=== PATIENT | male | born 1980 | race Caucasian/White ===

== ENCOUNTER 2024-09-16 10:20 | Emergency (ER) | payer MEDICAID, SELFPAY ==
--- NOTE | ~2024-09-16 | US_ITS ---
EXAMINATION: US venous doppler [facility] DATE: 09/16/2024 12:29 INDICATION: Bilateral lower limb pain and swelling TECHNIQUE: Grayscale ultrasound images without and with compression and Doppler ultrasound images of the bilateral lower extremity veins were obtained. COMPARISON: None. FINDINGS: The visualized portions of right common femoral vein, profunda (deep) femoral vein, femoral vein, pop liteal vein, posterior tibial veins, peroneal veins, gastrocnemius vein and greater saphenous vein ou tflow are patent. The visualized portions of left common femoral vein, profunda femoral vein, femoral vein, popliteal v ein, posterior tibial veins, peroneal veins, gastrocnemius vein and greater saphenous vein outflow ar e patent. IMPRESSION: 1. No deep venous thrombosis in either lower limb. Reviewed, dictated and finalized at location A. D SERGEANT
--- NOTE | ~2024-09-16 | XR_ITS ---
EXAMINATION: XR chest 2V DATE: 09/16/2024 11:21 INDICATION: Lower limb swelling TECHNIQUE: PA and lateral views of the chest were obtained. COMPARISON: None FINDINGS: The lungs are clear with no focal airspace opacities, pulmonary edema, pleural effusion or pneumothor ax. The cardiomediastinal silhouette is normal. Moderate thoracic spondylosis with minimal anterior w edging of a lower thoracic vertebral body, possibly T11. IMPRESSION: 1. No acute cardiopulmonary disease. Reviewed, dictated and finalized at location A. LY INDEPENDENCE CASE MANAGER
[2024-09-16 10:31] VITALS: BP 122/74; PULSE 89; RESP 18; TEMP 36.7; O2SAT 99
--- NOTE | 2024-09-16 10:52 | ED.GENADULT ---
HPI - General Adult General Chief complaint: Skin/Abscess/Foreign Body Stated complaint: BLE cellulitis Time Seen by Provider: 09/16/24 10:41 History of Present Illness HPI narrative: 44-year-old male present to the emergency department for evaluation for lower extremity edema and concern for recurrent cellulitis. Patient states he did just complete a course Lasix and doxycycline. Patient states he completed these approximately 4 days ago and feels like the swelling and erythema is returning. Patient denies any significant past medical history other than a cholecystectomy. Patient denies any previous history congestive heart failure and states he was only started on the Lasix due to the leg swelling. Related Data Allergies Allergy/AdvReac Type Severity Reaction Status Date / Time iohexol (From contrast - CT, Allergy vomiting Verified 09/16/24 10:23 X-RAY) Review of Systems Review of Systems: All systems reviewed & are unremarkable except as noted in HPI and below Exam Narrative: APPEARANCE: Well appearing, no pain, no distress, well-nourished. HEAD: normocephalic, atraumatic. EYES: PERRLA/EOMI, conjunctivae clear. NOSE: Normal no drainage EARS:TMS clear with good light reflex. THROAT: Pharynx clear, no exudate. NECK: Supple. No adenopathy, no masses. RESPIRATORY: Airway patent, respirations nonlabored. Clear to auscultation bilaterally, no rales, rhonchi, wheezing. CARDIOVASCULAR: Regular rate and rhythm without murmurs rubs or gallops. ABDOMINAL: Soft, nontender, nondistended, normal bowel sounds MUSCULOSKELETAL: Bilateral lower extremity edema NEURO: Alert. Cranial nerves II through XII intact. Good gait. Good coordination SKIN: Mild lower extremity erythema Course Vital Signs Vital signs: Vital Signs Temperature 98.0 F 09/16/24 10:31 Pulse Rate 89 09/16/24 10:31 Respiratory Rate 09/16/24 10:31 Blood Pressure 122/74 09/16/24 10:31 Pulse Oximetry 99 09/16/24 10:31 Temperature 97.5 F L 09/16/24 13:15 Pulse Rate 81 09/16/24 13:15 Respiratory Rate 18 09/16/24 13:15 Blood Pressure 103/69 09/16/24 13:15 Pulse Oximetry 98 09/16/24 13:15 Medical Decision Making [facility] Narrative Medical decision making narrative: 44-year-old male presenting emergency department for evaluation for concern for lower extremity cellulitis on the left lower extremity. Patient also does have bilateral lower extremity edema. Patient is currently afebrile with no leukocytosis and hemoglobin of 12.3. Patient has normal kidney function with no significant abnormalities on his CMP chest x-ray showed no acute cardiopulmonary abnormality and patient's lower extremity Dopplers were negative bilaterally. No significant cellulitis is noted at this time. Patient does feel it is more erythematous than baseline. Patient will be started on oral antibiotics and discharged home. Patient will be started on Keflex. Differential Diagnosis Differential Diagnosis: DVT, cellulitis, chronic venous stasis Vital Signs Vital Signs: Vital Signs Temperature 98.0 F 09/16/24 10:31 Pulse Rate 89 09/16/24 10:31 Respiratory Rate 18 09/16/24 10:31 Blood Pressure 122/74 09/16/24 10:31 Pulse Oximetry 99 09/16/24 10:31 Temperature 97.5 F L 09/16/24 13:15 Pulse Rate 81 09/16/24 13:15 Respiratory Rate 18 09/16/24 13:15 Blood Pressure 103/69 09/16/24 13:15 Pulse Oximetry 98 09/16/24 13:15 Lab Data Lab results reviewed: Yes I reviewed the patient's lab results. 09/16/24 11:00 09/16/24 11:01 Labs: Lab Results 09/16/24 09/16/24 Range/Units 11:00 11:01 WBC 4.4 L (4.5-10.0) K/mm3 RBC 4.24 L (4.6-6.20) M/mm3 Hgb 12.3 L (14.0-18.0) g/dL Hct 38.4 L (42.0-52.0) % MCV 90.6 (80-100) fl MCH 29.0 (26-34) pg MCHC 32.0 (32-36) g/dl RDW 12.5 (11.5-14.5) % Plt Count 161 (150-375) k/mm3 MPV 10.0 (7.4-10.4) fl Immature Gran % (Auto) 0.2 (0-0.5) % Neut % (Auto) 55.6 (45.5-73.1) % Lymph % (Auto) 30.6 (18.3-44.2) % [place] % (Auto) 10.0 H (2.6-8.5) % Eos % (Auto) 2.9 (0-4.4) % Baso % (Auto) 0.7 (0.2-1.2) % Lymph # (Auto) 1.35 (0.9-3.2) K/mm3 [place] # (Auto) 0.4 (0.1-0.6) K/mm3 Eos # (Auto) 0.1 (0-0.3) K/mm3 Baso # (Auto) 0.0 (0.0-0.1) K/mm3 Abs Immat Gran (auto) 0.01 (0.00-0.031) K/mm3 Absolute Neuts (auto) 2.5 (1.3-6.7) K/mm3 Absolute Nucleated RBC 0.000 (0.0-0.012) K/mm3 Nucleated RBC % 0.0 (0.0-0.2) % Sodium 139 (137-145) mmol/L Potassium 4.1 (3.4-5.0) mmol/L Chloride 102 (98-107) mmol/L Carbon Dioxide 29 (22-30) mmol/L Anion Gap 8 (4-12) mmol/L BUN 26 H (9-20) mg/dL Creatinine 0.73 (0.7-1.3) mg/dL Estim Creat Clear Calc 110 ml/min Estimated GFR > 60 (59 - ) Glucose 84 (65-110) mg/dL Calcium 8.5 (8.4-10.2) mg/dL Total Bilirubin 0.7 (0.2-1.3) mg/dL AST 30 (17-59) U/L ALT 39 (6-50) U/L Alkaline Phosphatase 61 (38-126) U/L NT-Pro-B Natriuret Pep 23 (19.9-100) pg/mL Total Protein 7.0 (6.3-8.2) g/dL Albumin 3.8 (3.5-5.1) g/dL Imaging Data Radiologist's impression: Impressions Chest X-Ray 09/16/24 11:33 IMPRESSION: 1. No acute cardiopulmonary disease. Venous Doppler Study 09/16/24 12:32 IMPRESSION: 1. No deep venous thrombosis in either lower limb. Discharge Plan Discharge Clinical Impression: Cellulitis Patient Disposition: Home, Self-Care Condition: Stable Instructions: Antibiotic Form, Cellulitis (ED) Additional Instructions: Have close follow-up with your primary care physician for wound check. Antibiotic as directed until completed. Patient Language: Italian Prescriptions: New cephalexin 500 mg capsule 500 mg PO Q8H 7 Days Qty: 21 0RF Follow-up/Referrals: UNKNOWN,DOCTOR [Primary Care Provider] -
--- OUTSIDE RECORDS SUMMARY | 2024-09-16 10:52 | XMS_ITS | Encounter Summary ---
Author Organization [facility] Healthcare Address [address] [place] [address] Care Team Providers Care Spring Setter Name Role Phone Elias Andrews MD Unavailable [phone] Jonah Otto MD Unavailable [phone] Jerel Camejo MD Primary Care Provider [phone] Reason for Visit * Reason Onset Date Comments Med Refill 09/14/2024 Encounter Details Date Type Department Care Team (Late st Contact Info) Description 09/14/2024 Telephone [facility] at [address] [id number] Lexi Garcia, ROUTE CLERK [facility] [place] [address] Med Refill Social History Tobacco Use Types Packs/Day Years Used Date Smoking Tobacco: Never Smokeless Tobacco: Never Alcohol Use Standard Drinks/Week Comments Not Currently 0 (1 standard drink = 0.6 oz pur e alcohol) [facility] Utilities Answer Date Recorded In the past 12 months has [employer] electric, gas, oil, or water company threatened to shut off services in your home? Patient declined 08/14/2024 Social Connection and Isolation Panel [NHANES] A nswer Date Recorded In a typical week, how many times do you talk on the phone with family, friends, or neighbors? Patient declined 08/14/2024 How often do you get togethe r with friends or relatives? Patient declined 08/14/2024 How often do you attend evangelical or baptism serv ices? Patient declined 08/14/2024 Do you belong to any clubs o r organizations such as evangelical groups, unions, fraternal or athletic groups, or school groups? Patient declined 08/14/2024 How often do you attend meet ings of the clubs or organizations you belong to? Patient declined 08/14/2024 Are you , , di vorced, , never , or living with a partner? Patient declined 08/14/2024 AUDIT-C Answer Date Recorded Q1: How often do you have a drink containing alcohol? Never 07/24/2024 Q2: How many drinks containi ng alcohol do you have on a typical day when you are drinking? Patient does not drink Q3: How often do you have si x or more drinks on one occasion? Never 07/24/2024 Overall Financial Resource Strain (CARDIA) Answe r Date Recorded How hard is it for you to pa y for the very basics like food, housing, medical care, and heating? Patient declined 08/14/2024 Hunger Vital Sign Answer Date Recorded Within the past 12 months, y ou worried that your food would run out before you got the money to buy more. Patient declined Within the past 12 months, t he food you bought just didn't last and you didn't have money to get more. Patient declined PRAPARE - Transportation Answer Date Re corded In the past 12 months, has l ack of transportation kept you from medical appointments or from getting medications? Patient declined 08/14/2024 In the past 12 months, has l ack of transportation kept you from meetings, work, or from getting things needed for daily living? Patient declined 08/14/2024 Housing Stability Vital Sign Answer Joseph e Recorded In the last 12 months, was t here a time when you were not able to pay the mortgage or rent on time? Patient declined 08/14/19 25 Number of Times Moved in the Last Year Not on fi le 08/14/2024 At any time in the past 12 m [facility], were you homeless or living in a [place] [facility] facility (including now)? Patient declined 08/14/2024 Personal Safety Answer Date Recorded Have you ever been in or are you currently in a harmful physical or emotional relationship or is someone making you feel afraid or unsafe? Denies 09/14/2024 Sex and Gender Information Value Date Recorded Sex Assigned at Not on file Legal Sex Male 9:25 PM BURIAL AGENT Gender Identity Not on file Sexual Orientation Straight 11/18/2022 7: 07 PM CDT documented as of this encounter Miscellaneous Notes * Telephone Encounter - Adelina Mcqueen MA - 09/14/2024 7:15 PM CST Pt seen 09/11 stating he lost his potasium script and is requesting a new one. Pt seen six times in ED since our visit. Delfino Li AL AGENT AL AGENT documented in this encounter Plan of Treatment Not on file documented as of this encounter Visit Diagnoses Not on filedocumented in this encounter Care Teams Spring Setter Relationship Specialty [place] [address] [place] [address] PCP - General Family Medicine 05/18/24 [place] [address] [address] [address] Referring Physician General Surgery 08/04/19 [place] [id number] [address] [address] Consulting Physician Gastroenterology 08/04/19 documented as of this encounter
--- OUTSIDE RECORDS SUMMARY | 2024-09-16 10:52 | XMS_ITS | Clinical Summary ---
Author Organization 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 08/23/2024 08/23/19 26 Active furosemide (LASIX) 40 mg tablet Take 40 mg by mouth daily. 09/11/2024 09/16/19 25 Active ondansetron (ZOFRAN ODT) 4 mg Tablet, Rapid Dissolve Take 1 Tablet (4 mg) by mouth every 8 hours as needed for Nausea/Emesis . Dissolve tablet on top of tongue, then swallow with saliva. 30 Tablet 09/15/2024 09/25/19 25 Active Active Problems Problem Noted Date Diagnosed Date Gallbladder adhesions 09/15/2024 Bilateral lower extremity edema 08/26/2024 LAD (lymphadenopathy) 08/21/2024 Coronavirus infection 08/14/2024 Mass of nose 06/15/2022 Overview (09/15/2024): Added automatically from request for surgery [id number] Leg wound, left 09/13/2019 Chronic abdominal pain 08/12/2019 S/P cholecystectomy 08/12/2019 Vasovagal episode 08/12/2019 Calculus of gallbladder 07/29/2019 Intractable right upper quadrant abdominal pain 07/29/2019 Overview (09/15/2024): Added automatically from request for surgery [id number] Nausea 07/29/2019 Adjustment disorder with depressed mood in remis devonte 11/05/2018 Generalized abdominal pain 10/25/2018 Sepsis 10/25/2018 Dizziness 10/20/2018 Syncope and collapse 10/20/2018 Encounters Date Type Department Care Team Description 09/15/2024 6:00 PM [facility] Office Visit [facility] [address] Kay Melo, GINGER Nausea and vomiting, unspecified vomiting type (Primary Dx) 09/15/2024 2:19 AM [facility] - 09/15/2024 3:50 AM [facility] Emergency Department [address] [place] [address] Greg Todd MD Lower extremity edema (Primary Dx) Discharge Disposition: Home or Self Care 09/14/2024 Travel 09/13/2024 8:17 AM [facility] - 09/13/2024 11:47 AM [facility] Emergency Department [address] [place] [address] Batsheva Hayden MD Leg swelling (Primary Dx) Discharge Disposition: Home or Self Care 09/13/2024 Travel 09/10/2024 9:10 PM [facility] - 09/10/2024 10:05 PM [facility] Emergency Room [address] [place] [address] Bilateral lower extremity edema (Primary Dx) Discharge Disposition: Home or Self Care 09/09/2024 9:55 PM [facility] - 09/10/2024 12:20 AM [facility] Emergency Department [address] [place] [address] Nolan Lee MD 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 (Primary Dx) Discharge Disposition: Home or Self Care 09/09/2024 2:45 AM [facility] - 09/09/2024 3:11 AM [facility] Emergency Department [address] [place] [phone] Mark Andrews DO Venous stasis dermatitis (Primary Dx); Other chronic pain Discharge Disposition: Home or Self Care 09/08/2024 Travel 09/05/2024 External Device Data STL ABSTRACTION Provider, Abstract 09/04/2024 6:46 AM [facility] - 09/04/2024 7:21 AM [facility] Emergency Department [address] [place] [phone] Fei Napoles DO Chronic pain of left lower extremity (Primary Dx) Discharge Disposition: Home or Self Care 08/24/2024 11:37 PM [facility] - 08/24/2024 11:53 PM [facility] Emergency Department [address] [place] [phone] Wicho Camarillo DO Cellulitis, unspecified cellulitis site (Primary Dx) Discharge Disposition: Home or Self Care 08/24/2024 External Device Data STL ABSTRACTION Provider, Abstract 2024 Results Follow-Up [facility] - [place] [address] [facility] [place] [address] Jerel Camejo MD TSH, LIPID PANEL, COMPREHENSIVE METABOLIC PANEL, Additional followed-up results: 2 08/21/2024 3:00 PM [facility] Office Visit [facility] [place] [address] [place] [address] Jerel Camejo MD Encounter for routine adult health examination with abnormal findings (Primary Dx); Adjustment disorder with depressed mood in remission; LAD (lymphadenopathy); Screening for cardiovascular condition; Screening for lipoid disorders; Screening for endocrine disorder 08/21/2024 2:59 PM [facility] - 08/21/2024 7:44 PM [facility] Emergency Department [address] [place] [address] Mike Sandoval, Carmelo Phillips MD Leg edema (Primary Dx); Persistent cough Discharge Disposition: Home or Self Care 08/21/2024 Travel 08/17/2024 2:50 AM [facility] - 08/17/2024 3:37 AM [facility] Emergency Department [facility] [phone] Nolan Lee MD Viral syndrome (Primary Dx); Bilateral lower extremity edema Discharge Disposition: Home or Self Care 08/15/2024 External Device Data STL ABSTRACTION Provider, Abstract 08/14/2024 Orders Only [facility] Oncology and Hematology [facility] [address] [place] [address] Ny Hicks MD Enlarged lymph nodes (Primary Dx) 08/11/2024 9:18 PM [facility] - 08/12/2024 12:53 AM [facility] Emergency [facility] Emergency Department [address] [place] [address] Nasrin White MD COVID-19 virus detected (Primary Dx); Pre-syncope Discharge Disposition: Home or Self Care 08/11/2024 Travel from Last 3 Months Immunizations Immunization Administration Dates Next Due (ADACEL/BOOSTRIX)(10 YR UP) TDAP VACCINE, 0.5ML, IM 08/05/2019 (PFIZER LYNNE)(12 YR UP PRIMA RY SERIES) COVID-19 VACCINE - EMERGENCY USE AUTHORIZATION, MRNA, LYNNE(PF) 30 MCG/0.3 ML IM SUSP 04/04/2022,12/10/2021 (TDVAX)(7 YRS UP) TETANUS AN D DIPHTHERIA TOXOIDS, ADSORBED (2 LF OF TETANUS TOXOID AND 2 LF OF DIPHTHERIA TOXOID), 0.5ML (PF), IM 03/28/2014 INFLUENZA VACCINE QUADRIVALE NT 6 MOS UP CELL DERIVED PF IM 04/04/2022 Influenza Seasonal Unspecified Formulation IM ,05/01/2023 Social History Tobacco Use Types Packs/Day Years Used Date Smoking Tobacco: Never Smokeless Tobacco: Never Alcohol Use Standard Drinks/Week Comments Not Currently 0 (1 standard drink = 0.6 oz pur e alcohol) Feeling Safe Answer Date Recorded Are you in a relationship wi th someone who hurts you emotionally and/or physically? No 09/14/2024 Sex and Gender Information Value Date Recorded Sex Assigned at Not on file Legal Sex Male 7:43 PM [facility] Gender Identity Not on file Sexual Orientation Not on file Last Filed Vital Signs Vital Sign Reading Time Taken Comments Blood Pressure 127/79 09/15/2024 5:54 PM [facility] Pulse 93 09/15/2024 5:54 PM [facility] Temperature 36.7 C (98.1 F) 09/15/2024 5:54 PM [facility] Respiratory Rate 16 09/15/2024 5:54 PM [facility] Oxygen Saturation 99% 09/15/2024 5:54 PM [facility] Inhaled Oxygen Concentration - - Weight 74.8 kg (165 lb) 09/15/2024 5:54 PM [facility] Height 172.7 cm (5' 8 ) 09/14/2024 11:08 PM [facility] Body Mass Index 25.09 09/14/2024 11:08 PM [facility] Plan of Treatment Upcoming Encounters Date Type Department Care Team (Late st Contact Info) Description 08/27/2025 11:30 AM [facility] Office Visit [facility] Internal Medicine - [place] [address] [place] [address] [place] [address] [place] [address] Health Maintenance Due Date Last Done Comments HEPATITIS B VACCINES (1 of 3 - 19+ 3-dose series) 2001 Preventative Visit-Managed Medicaid 12/03/2023 12/01/2022 COVID-19 Vaccine (2023-2 5 season) 2024 2022, 04/04/2022, 12/10/2021 Pre-Diabetes and Diabetes Screening 08/21/2027 08/21/2024 DTAP/TDAP/TD VACCINES (2 - T d or Tdap) 08/05/2029 08/05/2019, 03/28/2014 INFLUENZA VACCINE Completed 04/03/2024, 05/01/2023, 04/04/2022 HPV VACCINES Aged Out No longer eligi ble based on patient's age to complete this topic Procedures Procedure Name Priority Date/Time Associated Diagnosis Comments POC INFLUENZA A AND B ANTIGEN Routine 09/15/2024 6:16 PM [facility] Nausea and vomiting, unspecified vomiting type COMPREHENSIVE METABOLIC PANEL Stat 09/14/2024 11:53 PM [facility] CBC WITH DIFFERENTIAL Stat 09/14/2024 11:53 PM [facility] POC GLUCOSE Stat 09/14/2024 11:51 PM [facility] COMPREHENSIVE METABOLIC PANEL Stat 09/09/2024 9:16 PM [facility] CBC WITH DIFFERENTIAL Stat 09/09/2024 9:16 PM [facility] XR CHEST PA AND LATERAL 2 VW Stat 09/09/2024 1:17 AM [facility] RESPIRATORY PATHOGEN PCR PANEL Stat 09/08/2024 11:[address] CHEST ABDOMEN PELVIS W CONT Stat 08/21/2024 6:55 PM [facility] POC CREATININE Stat 08/21/2024 4:35 PM [facility] C-REACTIVE PROTEIN Stat 08/21/2024 4: 27 PM [facility] COMPREHENSIVE METABOLIC PANEL Stat 08/21/2024 4:27 PM [facility] CBC WITH DIFFERENTIAL Stat 08/21/2024 4:27 PM [facility] XR CHEST PA AND LATERAL 2 VW Stat 08/21/2024 3:25 PM [facility] INFLUENZA A/B, RSV AND COVID-19 PCR PANEL Stat 08/21/2024 3:11 PM [facility] INFLUENZA A/B, RSV AND COVID-19 PCR PANEL Stat 08/21/2024 3:11 PM [facility] HEMOGLOBIN A1C Routine 08/21/2024 2:08 PM [facility] Adjustment disorder with depressed mood in remission LAD (lymphadenopathy) CBC WITH DIFFERENTIAL Routine 08/21/2024 2:08 PM [facility] Adjustment disorder with depressed mood in remission LAD (lymphadenopathy) COMPREHENSIVE METABOLIC PANEL Routine 08/21/2024 2:08 PM [facility] Adjustment disorder with depressed mood in remission LAD (lymphadenopathy) LIPID PANEL Routine 08/21/2024 2:08 PM [facility] Adjustment disorder with depressed mood in remission LAD (lymphadenopathy) TSH Routine 08/21/2024 2:08 PM [facility] Adjustment disorder with depressed mood in remission LAD (lymphadenopathy) XR CHEST PA AND LATERAL 2 VW Stat 08/17/2024 3:26 AM [facility] TROPONIN 2 HR, 5TH GEN Timed Study 08/11/2024 11:[address] HEAD WO CONTRAST Stat 08/11/2024 1 0:18 PM [facility] EKG 12-LEAD Stat 08/11/2024 9:58 PM [facility] TROPONIN BASELINE, 5TH GEN Stat 08/11/2024 9:57 PM [facility] COMPREHENSIVE METABOLIC PANEL Stat 08/11/2024 9:57 PM [facility] CBC WITH DIFFERENTIAL Stat 08/11/2024 9:57 PM [facility] from Last 3 Months Results * POC INFLUENZA A AND B ANTIGEN (09/15/2024 6:16 PM [facility]) INFLUENZA A AG POC Negative/Not Detected Negative/No t Detected [employer] [facility] INFLUENZA B AG POC Negative/Not Detected Negative/No t Detected [facility] INTERNAL KIT QC POC Pass Pass [facility] KIT LOT NUMBER POC [id number] [facility] KIT EXP DATE POC 05/01/2026 [facility] READ METHOD POC Visual [facility] Upper Respiratory ANTERIOR NARES SWAB / Unknown 09/15/2024 6:16 PM [facility] us Kay Melo VOCATIONAL TEACHER POINT OF CARE TESTING F inal Result [facility] CLIA# [id number] [place] [address] * (ABNORMAL) CBC WITH DIFFERENTIAL (09/14/2024 11:53 PM [facility]) Only the most recent of5 resultswithin the time period is included. WBC 5.5 4.0 - 9.8 K/uL 09/15/2024 12:21 AM [facility] RBC 4.45(L) 4.50 - 5.40 M/uL 09/15/2024 12:21 AM [facility] - [facility] HEMOGLOBIN 12.7(L) 13.6 - 16.5 g/dL 09/15/2024 12:21 AM [facility] HEMATOCRIT 39.4(L) 40.0 - 48.0 % 09/15/2024 12:21 AM [facility] - [facility] MCV 88.5 82.0 - 99.0 fL 09/15/2024 12:21 AM [facility] - [facility] MCH 28.5 27.2 - 32.6 pg 09/15/2024 12:21 AM [facility] - [facility] MCHC 32.2 31.5 - 35.5 g/dL 09/15/2024 12:21 AM [facility] - [facility] RDW 12.5 11.5 - 14.5 % 09/15/2024 12:21 AM [facility] [employer] - [facility] RDW-STDEV 40.6 37.1 - 48.7 fL 09/15/2024 12:21 AM [facility] PLATELETS 183 140 - 350 K/uL 09/15/2024 12:21 AM [facility] - [facility] MPV 10.5 9.3 - 12.4 fL 09/15/2024 12:21 AM [facility] - [facility] NEUTROPHILS 50 % 09/15/2024 12:21 AM [facility] LYMPHOCYTES 34 % 09/15/2024 12:21 AM [facility] MONOCYTES 12 % 09/15/2024 12:21 AM [facility] EOSINOPHILS 4 % 09/15/2024 12:21 AM [facility] [employer] [facility] BASOPHILS 1 % 09/15/2024 12:21 AM [facility] [employer] [facility] IMMATURE GRANULOCYTES 0 % 09/15/2024 12:21 AM [facility] [employer] [facility] NEUTROPHIL ABSOLUTE 2.72 1.90 - 7.00 K/uL 09/15/2024 12:21 AM [facility] [employer] [facility] LYMPHOCYTE ABSOLUTE 1.84 0.70 - 4.50 K/uL 09/15/2024 12:21 AM [facility] [employer] LABORATORY [facility] MONOCYTE ABSOLUTE 0.63 0.10 - 1.30 K/uL 09/15/2024 12:21 AM [facility] [employer] [facility] EOSINOPHIL ABSOLUTE 0.21 0.00 - 0.70 K/uL 09/15/2024 12:21 AM [facility] [employer] LABORATORY [facility] BASOPHILS ABSOLUTE 0.04 0.00 - 0.20 K/uL 09/15/2024 12:21 AM [facility] [employer] [facility] IMMATURE GRANULOCYTES ABSOLUTE 0.01 0.00 - 0.03 K/uL 09/15/2024 12:21 AM [facility] [employer] [facility] Blood Venipuncture / Unknown 09/14/2024 11:53 PM [facility] 09/15/2024 12:02 AM [facility] us Greg Todd MD HEMATOLOGY ORDERABLES Final R esult [facility] [employer] [facility]# [id number] [address] [place] [address] [place] [address] * (ABNORMAL) COMPREHENSIVE METABOLIC PANEL (09/14/2024 11:53 PM [facility]) Only the most recent of5 resultswithin the time period is included. SODIUM 141 136 - 145 mmol/L 09/15/2024 12:40 AM [facility] [employer] [facility] POTASSIUM 3.6 3.5 - 5.0 mmol/L 09/15/2024 12:40 AM [facility] [employer] [facility] CHLORIDE 100 98 - 107 mmol/L 09/15/2024 12:40 AM [facility] [employer] [facility] CO2 31(H) 22 - 29 mmol/L 09/15/2024 12:40 AM [facility] [employer] [facility] CALCIUM 8.8 8.6 - 10.2 mg/dL 09/15/2024 12:40 AM [facility] [employer] [facility] BUN 27(H) 6 - 20 mg/dL 09/15/2024 12:40 AM [facility] [employer] [facility] CREATININE 1.13 0.67 - 1.17 mg/dL 09/15/2024 12:40 AM [facility] [employer] [facility] GLUCOSE 111(H) 74 - 99 mg/dL 09/15/2024 12:40 AM [facility] [employer] [facility] TOTAL PROTEIN 7.0 6.7 - 8.6 g/dL 09/15/2024 12:40 AM [facility] [employer] [facility] ALBUMIN 4.0 3.5 - 5.2 g/dL 09/15/2024 12:40 AM [facility] [employer] [facility] BILIRUBIN TOTAL 0.4 0.3 - 1.2 mg/dL 09/15/2024 12:40 AM [facility] [employer] [facility] ALKALINE PHOSPHATASE 79 40 - 129 U/L 09/15/2024 12:40 AM [facility] [employer] [facility] AST 09/15/2024 12:40 AM [facility] [employer] [facility] Comment:Test cannot be perfo rmed. Sample hemolysis interference above limits. Redraw if indicated. ALT 41 <42 U/L 09/15/2024 12:40 AM [facility] [employer] [facility] GFR >60 >=60 mL/min/1.7 3 sq meter 09/15/2024 12:40 AM [facility] [employer] [facility] Comment:eGFR calculated with 2020 CKD-EPI equation. Vegetarian diet, extremely high or low muscle mass, and may affect results. Cystatin C with Glomerular Filtration Rate is a suitable alternative for these patients. ANION GAP 10 8 - 16 mmol/L 09/15/2024 12:40 AM [facility] [employer] [facility] Blood Venipuncture / Unknown 09/14/2024 11:53 PM [facility] 09/15/2024 12:02 AM [facility] Narrative [facility] - 09/15/2024 12:40 AM [facility] Samples containing indocyanine green cause interferences on Total and/or Direct Bilirubin and must not be measured. us Greg Todd MD CHEMISTRY ORDERABLES Final Re sult Performing Organization Address [facility]/ZIP Co de Phone Number [facility] [id number] [address] [place] [address] * (ABNORMAL) POC GLUCOSE (09/14/2024 11:51 PM [facility]ER) Pathologist [facility] GLUCOSE POC 119(H) 74 - 99 mg/dL 09/14/2024 11:51 PM [facility] SPECIMEN SOURCE, GLUCOSE POC Whole Blood 09/14/2024 11:51 PM [facility] Blood, whole 09/14/2024 11:5 1 PM [facility] 09/14/2024 11:58 PM [facility] us Interface Provider Poct POINT OF CARE TESTING Fi nal Result Performing Organization Address [facility]/ZIP Co de Phone Number [facility]# [id number] [address] [place] [address] * XR CHEST PA AND LATERAL 2 VW (09/09/2024 1:17 AM [facility]ER) Only the most recent of3 resultswithin the time period is included. Anatomical Region Laterality Modality Chest Computed Radiogr aphy 09/09/2024 1:18 AM [facility]ER Impressions 09/09/2024 7:11 AM [facility]ER IMPRESSION: Negative chest. DICTATION LOCATION: Location 1 - [facility] Narrative 09/09/2024 7:11 AM [facility] XR CHEST PA AND LATERAL 2 VW DATE: 09/09/2024 1:17 AM HISTORY: Shortness of Breath SOB, Comment: triage. See Reason for Exam COMPARISON: 08/21/2024 FINDINGS: Examination of the chest in PA and lateral views fails to reveal evidence of active infiltration or consolidation in either lung and there is no effusion or pneumothorax. The heart, aorta and diaphragm, and other mediastinal structures are normal in size, shape and position. The bony structures are unremarkable. INCIDENTAL FINDINGS: None. Procedure Note Nehemias Piña MD - 09/09/2024 XR CHEST PA AND LATERAL 2 VW DATE: 09/09/2024 1:17 AM HISTORY: Shortness of Breath SOB, Comment: triage. See Reason for Exam COMPARISON: 08/21/2024 FINDINGS: Examination of the chest in PA and lateral views fails to reveal evidence of active infiltration or consolidation in either lung and there is no effusion or pneumothorax. The heart, aorta and diaphragm, and other mediastinal structures are normal in size, shape and position. The bony structures are unremarkable. INCIDENTAL FINDINGS: None. IMPRESSION: Negative chest. DICTATION LOCATION: Location 1 - [facility] Mark Andrews DO DIAGNOSTIC IMAGING ORDERABLES Final Result * RESPIRATORY PATHOGEN PCR PANEL (09/08/2024 11:43 PM [facility]ER) [facility] Respiratory Pathogen PCR Panel NOT DETECTED No respiratory pathogen nucleic acids detected. 09/09/2024 1:04 AM [facility]ER [facility] COVID-19 PCR NOT DETECTED Not Detected 09/09/2024 1:04 AM [facility] Upper Respiratory ENTIRE NASOPHARYNX / Unknown Collection / Unknown 09/08/2024 11:43 PM [facility]ER 09/08/2024 11:49 PM [facility]ER Narrative [facility] - 09/09/2024 1:04 AM SLATE HANDLER The Film Array Respiratory Panel (RP2.1) is a multiplex nucleic acid detection test for 22 targets. Viruses: Adenovirus Coronavirus HKU1, NL63, 229E, and OC43 COVID-19/Severe Acute Respiratory Syndrome Coronavirus 2 Influenza A with the following subtypes: H1, H1-2009, and H3 Influenza B Human Metapneumovirus Parainfluenza virus 1, 2, 3, and 4 Respiratory Syncytial virus (RSV) Rhinovirus/Enterovirus (cannot differentiate due to genetic similarities) Bacteria: Bordetella pertussis Bordetella parapertussis Chlamydophila pneumoniae Mycoplasma pneumoniae us Mark Andrews DO MICROBIOLOGY - GENERAL ORDERAB LES Final Result [facility]# [id number] [address] [place] [address] * CT CHEST ABDOMEN PELVIS W CONT (08/21/2024 6:55 PM [facility]LER) Anatomical Region Laterality Modality Chest Computed Tomogra phy 08/21/2024 6:41 PM [facility]ER Impressions 08/21/2024 7:15 PM [facility]ER IMPRESSION: 1. No acute findings in the chest/abdomen/pelvis. Dictation location: Location 4 Narrative 08/21/2024 7:[address] CHEST ABDOMEN PELVIS W CONT TECHNIQUE: CT chest/abdomen/pelvis with IV contrast. No oral contrast. IV contrast: IOPAMIDOL 61 % INTRAVENOUS SOLUTION (MULTI-DOSE BULK PACK) Given:90 mL The examination was performed with the adjustment of mA according to the patient size and/or the use of Iterative Reconstruction Technique. CLINICAL INDICATION: Bilateral leg swelling. History of adenopathy. COMPARISON: None FINDINGS: No coronary artery atherosclerotic calcifications. The axillary, mediastinal, and hilar lymph nodes are not enlarged. No pleural effusion, pneumothorax, or focal consolidation. The spleen, adrenal glands, kidneys, ureters, bladder, pancreas, gallbladder, liver, stomach, small bowel, appendix, and colon are unremarkable. No free air, free fluid, abscess, or enlarged lymph nodes are seen in the abdomen/pelvis. The imaged osseous structures are intact. Procedure Note Hakeem Gupta MD - 08/21/2024 CT CHEST ABDOMEN PELVIS W CONT TECHNIQUE: CT chest/abdomen/pelvis with IV contrast. No oral contrast. IV contrast: IOPAMIDOL 61 % INTRAVENOUS SOLUTION (MULTI-DOSE BULK PACK) Given:90 mL The examination was performed with the adjustment of mA according to the patient size and/or the use of Iterative Reconstruction Technique. CLINICAL INDICATION: Bilateral leg swelling. History of adenopathy. COMPARISON: None FINDINGS: No coronary artery atherosclerotic calcifications. The axillary, mediastinal, and hilar lymph nodes are not enlarged. No pleural effusion, pneumothorax, or focal consolidation. The spleen, adrenal glands, kidneys, ureters, bladder, pancreas, gallbladder, liver, stomach, small bowel, appendix, and colon are unremarkable. No free air, free fluid, abscess, or enlarged lymph nodes are seen in the abdomen/pelvis. The imaged osseous structures are intact. IMPRESSION: 1. No acute findings in the chest/abdomen/pelvis. Dictation location: Location [address] ORDERABLES Final Result * POC CREATININE (08/21/2024 4:35 PM SLATE HANDLER) CREATININE POC 1.10 0.70 - 1.20 mg/dL 08/21/2024 4:35 PM SLATE HANDLER [facility] [employer] [facility] GFR POC >60 >=60 mL/min/1.7 3 sq meter 08/21/2024 4:35 PM SLATE HANDLER [facility] [employer] [facility] Comment:eGFR calculated with 2020 CKD-EPI equation. Vegetarian diet, extremely high or low muscle mass, and may affect results. Cystatin C with Glomerular Filtration Rate is a suitable alternative for these patients. Blood, whole 08/21/2024 4:35 PM [facility]ATE HANDLER 08/21/2024 4:39 PM [facility]ATE HANDLER Result [facility] Carmelo Snow MD POINT OF CARE TESTING Final R esult Performing Organization Address [facility] Co de Phone Number [facility]# [id number] [address] [place] [address] * C-REACTIVE PROTEIN (08/21/2024 4:27 PM [facility]ATE [facility]LER) CRP <3.0 <5.0 mg/L 08/21/2024 5:33 PM SLATE HANDLER [facility] [facility] [employer] [facility] Blood Venipuncture / Unknown 08/21/2024 4:27 PM SLATE HANDLER 08/21/2024 4:39 PM SLATE HANDLER Carmelo Snow MD CHEMISTRY ORDERABLES Final Re sult Performing Organization Address City/[facility] Co de Phone Number [facility]# [id number] [address] [place] [address] * INFLUENZA A/B, RSV AND COVID-19 PCR PANEL (08/21/2024 3:11 PM SLATE HANDLER) [facility] COVID-19 PCR NOT DETECTED Not Detected 08/21/19 4:37 PM [facility] Influenza A by PCR NOT DETECTED Not Detected 08/21/2024 4:37 PM SLATE HANDLER [facility] Influenza B by PCR NOT DETECTED Not Detected 08/21/2024 4:37 PM [facility] RSV by PCR NOT DETECTED Not Detected 08/21/2024 4:37 PM [facility] Upper Respiratory ENTIRE NASOPHARYNX / Unknown Collection / Unknown 08/21/2024 3:11 PM SLATE HANDLER 08/21/2024 3:22 PM SLATE HANDLER [facility] - 08/21/2024 4:37 PM SLATE HANDLER This test has been authorized by the FDA under an Emergency Use Authorization for use by authorized laboratories. This test has been validated in accordance with the FDA's guidance regarding Coronavirus Disease-2019 testing. Optimum specimen types and timing for peak viral levels during infection have not been determined. A negative RT-PCR result does not rule out infection with the 2019-Novel Coronavirus. Mike Sandoval DO MICROBIOLOGY - GENERAL ORDE FRANCHESKA Final Result Performing Organization Address [facility] Co de Phone Number [facility]# [id number] [address] [place] [address] * TSH (08/21/2024 2:08 PM SLATE HANDLER) [facility] TSH 1.85 0.40 - 4.50 mIU/L [facility] Comment: FASTING:NO FASTING: NO Test Performed at: [facility] [address] [address] [facility] Blood 08/21/2024 2:08 PM SLATE HANDLER 08/21/2024 2:08 PM SLATE HANDLER us Jerel Camejo MD CHEMISTRY ORDERABLES Final Resul t Performing Organization Address City/[facility]/ZIP Code Phone Number [facility] [phone] [place] [address] [place] [address] * HEMOGLOBIN A1C (08/21/2024 2:08 PM SLATE HANDLER) HEMOGLOBIN A1C 5.1 <5.7 % of total Hgb [facility] [place] Comment: For the purpose of screening for the presence of diabetes: <5.7% Consistent with the absence of diabetes 5.7-6.4% Consistent with increased risk for diabetes (prediabetes) > or =6.5% Consistent with diabetes This assay result is consistent with a decreased risk of diabetes. Currently, no consensus exists regarding use of hemoglobin A1c for diagnosis of diabetes in children. According to [place] Diabetes Association (ADA) guidelines, hemoglobin A1c <7.0% represents optimal control in non- diabetic patients. Different metrics may apply to specific patient populations. Standards of Medical Care in Diabetes(ADA). ESTIMATED AVERAGE GLUCOSE (MG/DL) 100 mg/dL [facility] [place] ESTIMATED AVERAGE GLUCOSE (MMOL/L) 5.5 mmol/L [facility] [place] Comment: FASTING:NO FASTING: NO Test Performed at: [facility] [place] [address] [place] [address] [place] [facility] Blood 08/21/2024 2:08 PM SLATE HANDLER 08/21/2024 2:08 PM SLATE HANDLER us Jerel Camejo MD CHEMISTRY ORDERABLES Final Resul t Performing Organization Address City/[facility]/ZIP Code Phone Number [facility] [phone] [facility] [place] [address] [place] [address] * LIPID PANEL (08/21/2024 2:08 PM SLATE HANDLER) CHOLESTEROL 149 <200 mg/dL [facility] [place] HDL 67 > OR = 40 mg/dL [facility] [place] TRIGLYCERIDE 57 <150 mg/dL [facility] LDL CALCULATED 69 mg/dL (calc) [facility] Comment: Reference range: <100 Desirable range <100 mg/dL for primary prevention; <70 mg/dL for patients with CHD or diabetic patients with > or = 2 CHD risk factors. LDL-C is now calculated using the Hazel calculation, which is a validated novel method providing better accuracy than the Friedewald equation in the estimation of LDL-C. Fernando SS et al. GURDEEP. 2013;310(19): 2695-3129 (http://education.LivingSocial/faq/TRF812) CHOL/HDL RATIO 2.2 <5.0 (calc) [facility] gilmore Abdi NON-HDL CHOLESTEROL 82 <130 mg/dL (calc) [facility] Comment: For patients with diabetes plus 1 major ASCVD risk factor, treating to a non-HDL-C goal of <100 mg/dL (LDL-C of <70 mg/dL) is considered a therapeutic option. Test Performed at: [place] [address] [place] [address] [facility] Blood 08/21/2024 2:08 PM SLATE HANDLER 08/21/2024 2:08 PM SLATE HANDLER Jerel Camejo MD CHEMISTRY ORDERABLES Final Resul t [facility] [phone] [place] [address] [place] [address] * TROPONIN 2 HR, 5TH GEN (08/11/2024 11:38 PM SLATE HANDLER) TROPONIN T, 2 HR 5TH GEN <6 <=15 ng/L 08/12/2024 12:35 AM SLATE HANDLER [facility] [employer] [facility] Blood Venipuncture / Unknown 08/11/2024 11:38 PM SLATE HANDLER 08/11/2024 11:42 PM SLATE HANDLER Narrative [facility] - 08/12/2024 12:35 AM SLATE HANDLER Troponin Undetectable Unable to calculate delta. Nasrin White MD CHEMISTRY ORDERABLES Final Resul t [facility]# [id number] [address] [place] [address] * CT HEAD WO CONTRAST (08/11/2024 10:18 PM SLATE HANDLER) Anatomical Region Laterality Modality Head Computed Tomogra phy 08/11/2024 10:1 8 PM SLATE HANDLER Impressions 08/11/2024 10:25 PM SLATE HANDLER IMPRESSION: 1. No acute intracranial findings. Dictation location: Location 4 Narrative 08/11/2024 10:25 PM SLATE HANDLER Indication: Syncope Study: CT head without IV contrast Comparison: None Findings: No acute intracranial hemorrhage, midline shift, mass effect, extra-axial fluid collection, or loss of felix-white differentiation is identified. The calvarium is intact. Mild mucosal thickening in the right maxillary sinus. Procedure Note Hakeem Gupta MD - 08/11/2024 Indication: Syncope Study: CT head without IV contrast Comparison: None Findings: No acute intracranial hemorrhage, midline shift, mass effect, extra-axial fluid collection, or loss of felix-white differentiation is identified. The calvarium is intact. Mild mucosal thickening in the right maxillary sinus. IMPRESSION: 1. No acute intracranial findings. 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1980 Requested By: Order Number: [id number] Reading MD: Fei Elmore Measurements Intervals [place] Rate: 64 P: 10 NH: 129 QRS: 75 QRSD: 92 T: 36 QT: 405 QTc: 418 Interpretive Statements Sinus rhythm Electronically Signed On 08-12-2024 12:39:08 SLATE HANDLER by Fei Elmore Nasrin White MD ECG ORDERABLES Final Result Performing Organization Address City/[facility] Co de Phone Number INTERFACE SYSTEM Refer to clinic/hospital department * TROPONIN BASELINE, 5TH GEN (08/11/2024 9:57 PM SLATE HANDLER) TROPONIN T, BASELINE 5TH GEN <6 <=15 ng/L 08/11/2024 11:01 PM SLATE HANDLER [facility] Blood Venipuncture / Unknown 08/11/2024 9:57 PM SLATE HANDLER 08/11/2024 10:06 PM SLATE HANDLER Narrative [facility] - 08/11/2024 11:01 PM SLATE HANDLER Troponin Undetectable Nasrin White MD CHEMISTRY ORDERABLES Final Resul t Performing Organization Address City/[facility] Co de Phone Number [facility] CLIA# [id number] [address] [address] from Last [address] [place] [address] [facility] [place] [address] [facility] MEDICAID Care Teams Conductor Symphonic Orchestra Relationship Specialty [place] [address] [facility] [address] Kyler Holland [facility] [address] [place] [id number] PCP - General Family Practice 12/01/22
--- OUTSIDE RECORDS SUMMARY | 2024-09-16 10:52 | XMS_ITS | Encounter Summary ---
Author Organization [facility] Address [address] [place] [address] Care Team Providers Care Systems Design Engineer Name Role Phone Jerel Camejo MD Primary Care Provider [phone] Encounter Details Date Type Department Care Team (Late Contact Info) Description 12/24/2022 Lab Requisition [facility] [address] [place] [address] Ny Hicks MD [address] [place] [address] Generalized enlarged lymph nodes Social History Tobacco Use Types Packs/Day Years Used Date Smoking Tobacco: Never Smokeless Tobacco: Never Alcohol Use Standard Drinks/Week Comments Not Currently 0 (1 standard drink = 0.6 oz pur e alcohol) Feeling Safe Answer Date Recorded Are you in a relationship wi th someone who hurts you emotionally and/or physically? No 12/28/2022 Sex and Gender Information Value Date Recorded Sex Assigned at Not on file Legal Sex Male 7:43 PM ROUTEMAN Gender Identity Not on file Sexual Orientation Not on file COVID-19 Exposure Response Date Recorded In the last 10 days, have yo u been in contact with someone who was confirmed or suspected to have Coronavirus/COVID-19? No / Unsure 12/01/2022 12:26 PM CDT documented as of this encounter Plan of Treatment Upcoming Encounters Date Type Department Care Team (Late Contact Info) Description 08/27/2025 11:30 AM ROUTEMAN Office Visit [facility] Internal Medicine - [place] [address] [facility] [address] [place] [address] [place] [address] [facility] Kyler Holland [facility] [address] [place] [address] documented as of this encounter Procedures Procedure Name Priority Date/Time Associated Diagnosis Comments SEDIMENTATION RATE Stat 12/24/2022 12 :05 PM CDT Generalized enlarged lymph nodes C-REACTIVE PROTEIN Stat 12/24/2022 12 :05 PM CDT Generalized enlarged lymph nodes documented in this encounter Results * C-REACTIVE PROTEIN (12/24/2022 12:05 PM CDT) CRP <3.0 <5.0 mg/L 12/24/2022 3:02 PM CDT [facility] Blood 12/24/2022 12:0 5 PM CDT 12/24/2022 2:22 PM CDT us Ny Hicks MD CHEMISTRY ORDERABLES Final Re sult [facility]# [id number] [address] [place] [address] * SEDIMENTATION RATE (12/24/2022 12:05 PM CDT) Pathologist [facility] ESR (SEDIMENTATION RATE) 7 <=15 mm/Hr 12/24/2022 2:55 PM CDT [facility] Blood Collection / Unknown 12/24/2022 12:05 PM CDT 12/24/2022 2:22 PM CDT us Ny Hicks MD HEMATOLOGY ORDERABLES Final R esult [facility]# [id number] [address] [place] [address] documented in this encounter Visit Diagnoses Diagnosis Generalized enlarged lymph nodes Enlargement of lymph nodes documented in this encounter Additional Health Concerns Infection Onset Date Last Indicated Resolved Time R/O COVID-19 08/21/2024 08/21/2024 08/21/2024 4:37 PM ROUTEMAN R/O Respiratory 09/08/2024 09/08/2024 09/09/2024 1 :04 AM ROUTEMAN documented as of this encounter Care Teams Systems Design Engineer Relationship Specialty [place] [address] [place] [address] PCP - General Family Practice 12/01/22 documented as of this encounter
--- OUTSIDE RECORDS SUMMARY | 2024-09-16 10:52 | XMS_ITS | Referral Summary ---
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 ranges are not reported, since discordance with absolute values may lead to misinterpretation of CBC data. Current Interpretive Data was last revised on 2017. Monocyte pct 8.6 % [facility] Comment: Interpretive Data Percent cell count reference ranges are not reported, since discordance with absolute values may lead to misinterpretation of CBC data. Current Interpretive Data was last revised on 2017. Eosinophil pct 3.2 % [facility] Comment: Interpretive Data Percent cell count reference ranges are not reported, since discordance with absolute values may lead to misinterpretation of CBC data. Current Interpretive Data was last revised on 2017. Basophil pct 0.5 % [facility] Comment: Interpretive Data Percent cell count reference ranges are not reported, since discordance with absolute values may lead to misinterpretation of CBC data. Current Interpretive Data was last revised on 2017. Blood 09/11/2024 9:10 PM [facility] [employer] 09/11/2024 9:30 PM [employer] us Salena Crawley MD LAB BLOOD ORDERABLES Fin al Result [facility] [address] Department [place] [address] * Pro B-type natriuretic peptide (09/11/2024 9:10 PM [employer] [employer]) NT-proBNP <36 <=300 pg/mL Comment: Interpretive Comments: A. Dyspnea in Acute Care Setting All Ages: < 300 pg/ml, acute heart failure unlikely. < 50 yrs: 300 - 450 pg/ml, further investigation warranted. > 450 pg/ml, acute heart failure likely. 50 - 74 yrs: 300 - 900 pg/ml, further investigation warranted. > 900 pg/ml, acute heart failure likely . > or = 75 yrs: 450 - 1800 pg/ml, further investigation warranted. > 1800 pg/ml, acute heart failure likely. B. Non-acute Setting < 75 yrs < 125 pg/ml, rules out heart failure. > or = 125 pg/ml, further investigation warranted. > or = 75 yrs < 450 pg/ml, rules out heart failure. > or = 450 pg/ml, further investigation warranted. - Knowledge of each individual patient's NT-proBNP range may be more useful than using similar cut-points for every patient. Please note that marked elevations in NT-proBNP levels may be observed in state other than Left Ventricular Congestive Failure, including: acute coronary syndromes, right heart strain/failure (including pulmonary embolism and cor pulmonale), critical illness, renal failure, as well as advanced age. - References: 1. Adi CAMP et.al. Eur Heart J. 2006:27:330-337. 2. Xiomara RW, Caryn AM. J. AM Emerson Cardiol: Cardiovasc Imag. 2009;2: 216- 225. Interpretive Data Last Revised Date: 2018. Blood 09/11/2024 9:10 PM [employer] 09/11/2024 9:30 PM [employer] us Salena Crawley MD LAB BLOOD ORDERABLES Fin al Result [facility] [address] Department [place] [address] * CBC with auto differential (09/11/2024 9:10 PM [employer]) [facility] WBC 5.7 3.8 - 9.9 K/cumm Hgb 13.1 13.0 - 17.5 g/dL [facility] Hct 40.0 38.9 - 50.3 % [facility] Plt 184 150 - 400 K/cumm [facility] MPV 10.6 9.1 - 12.3 fL [facility] RBC 4.43 4.30 - 5.80 M/cumm [facility] MCV 90.3 81.3 - 96.4 fL [facility] MCH 29.6 27.1 - 33.3 pg [facility] MCHC 32.8 32.3 - 35.7 g/dL [facility] RDW CV 12.7 11.1 - 14.9 % [facility] RDW SD 41.7 35.7 - 48.1 fL [facility] NRBC abs 0.00 0.00 - 0.01 K/cumm [facility] Blood 09/11/2024 9:10 PM [employer] 09/11/2024 9:30 PM [employer] us Salena Crawley MD LAB BLOOD ORDERABLES Fin al Result [facility] [address] Department [place] [address] * (ABNORMAL) Comprehensive metabolic panel (09/11/2024 9:10 PM [employer]) Sodium 142 135 - 145 mmol/L Potassium, pl 4.3 3.3 - 4.9 mmol/L [facility] Chloride 101 97 - 110 mmol/L [facility] CO2 28 22 - 32 mmol/L [facility] Anion gap 13 2 - 15 mmol/L [facility] BUN 28(H) 6 - 25 mg/dL [facility] Creatinine 0.89 0.80 - 1.30 mg/dL [facility] Glucose 113 70 - 199 mg/dL [facility] Comment: Interpretive Data Fasting glucose >/= 126 mg/dl is diagnostic for diabetes. Fasting is defined as no caloric intake for at least 8 hours. Fasting glucose between 100 mg/dl to 125 mg/dl is diagnostic of prediabetes. In a patient with classic symptoms of hyperglycemia or hyperglycemic crisis, a random glucose >/= 200 mg/dl is diagnostic for diabetes. In the absence of unequivocal hyperglycemia, results should be confirmed by repeat testing. The classification and Diagnosis of Diabetes Diabetes Care 2021; 46: S19-S40. Current interpretive data was last revised 2022. Calcium 9.2 8.5 - 10.3 mg/dL [facility] Bilirubin, total 0.8 0.1 - 1.2 mg/dL [facility] Protein, pl 6.7 6.5 - 8.5 g/dL [facility] Albumin 4.0 3.5 - 5.0 g/dL [facility] Alk phos 79 40 - 130 Units/L [facility] ALT 62(H) 7 - 55 Units/L [facility] AST 40 10 - 50 Units/L [facility] Comment:Slightly Hemolyzed S pecimen Blood 09/11/2024 9:10 PM [facility] [employer] 09/11/2024 9:30 PM [employer] us Salena Crawley MD LAB BLOOD ORDERABLES Fin al Result [facility] [address] [place] [address] * eGFR (09/07/2024 2:59 AM [employer]) eGFR >90 >=60 mL/min/1. 73 m2 Comment: Interpretive Data Reference Interval Normal >/= 90 mL/min/1.73m2 Mildly decreased* 60 - 89 mL/min/1.73m2 Mildly to moderately decreased 45 - 59 mL/min/1.73m2 Moderately to severely decreased 30 - 44 mL/min/1.73m2 Severely decreased 15 - 29 mL/min/1.73m2 Kidney Failure < 15 mL/min/1.73m2 *Relative to young adult level Estimated glomerular filtration rate is determined by the 2020 CKD-EPI equation recommended by the National Kidney Foundation (A Unifying Approach to GFR Estimation: Recommendations of the NKF-ASK Task Force on Reassessing the Inclusion of Race in Diagnosing Kidney Disease, JASN 2020). The CKD-EPI equation should not be used for patients with unstable renal function and has not been validated in children and those over 70. Current interpretive data was last reviewed 2021. Blood 09/07/2024 2:59 AM [employer] 09/07/2024 3:02 AM [employer] Jair Armendariz MD LAB BLOOD ORDERABLES Final Result [facility] [address] [facility] Department [place] [address] * Differential, auto (09/07/2024 2:59 AM [employer]) Neutrophil abs 3.0 1.5 - 6.5 K/cumm Imm gran abs 0.0 0.0 - 0.1 K/cumm [facility] Lymphocyte abs 2.1 0.8 - 3.3 K/cumm [facility] Monocyte abs 0.4 0.2 - 0.8 K/cumm [facility] Eosinophil abs 0.2 0.0 - 0.5 K/cumm [facility] Basophil abs 0.0 0.0 - 0.1 K/cumm [facility] Neutrophil pct 51.2 % [facility] Comment: Interpretive Data Percent cell count reference ranges are not reported, since discordance with absolute values may lead to misinterpretation of CBC data. Current Interpretive Data was last revised on 2017. Imm gran pct 0.3 % [facility] Comment: Interpretive Data Percent cell count reference ranges are not reported, since discordance with absolute values may lead to misinterpretation of CBC data. Current Interpretive Data was last revised on 2017. Lymphocyte pct 36.9 % [facility] Comment: Interpretive Data Percent cell count reference ranges are not reported, since discordance with absolute values may lead to misinterpretation of CBC data. Current Interpretive Data was last revised on 2017. Monocyte pct 6.9 % [facility] Comment: Interpretive Data Percent cell count reference ranges are not reported, since discordance with absolute values may lead to misinterpretation of CBC data. Current Interpretive Data was last revised on 2017. Eosinophil pct 4.0 % [facility] Comment: Interpretive Data Percent cell count reference ranges are not reported, since discordance with absolute values may lead to misinterpretation of CBC data. Current Interpretive Data was last revised on 2017. Basophil pct 0.7 % [facility] Comment: Interpretive Data Percent cell count reference ranges are not reported, since discordance with absolute values may lead to misinterpretation of CBC data. Current Interpretive Data was last revised on 2017. Blood 09/07/2024 2:59 AM [employer] 09/07/2024 3:02 AM [employer] Jair Armendariz MD LAB BLOOD ORDERABLES Final Result Performing Organization Address [facility] Co de Phone Number [address] [place] [address] * (ABNORMAL) CBC with auto differential (09/07/2024 2:59 AM [employer]) WBC 5.8 3.8 - 9.9 K/cumm Hgb 12.3(L) 13.0 - 17.5 g/dL [facility] Hct 37.2(L) 38.9 - 50.3 % [facility] Plt 163 150 - 400 K/cumm [facility] MPV 10.4 9.1 - 12.3 fL [facility] RBC 4.17(L) 4.30 - 5.80 M/cumm [facility] MCV 89.2 81.3 - 96.4 fL [facility] MCH 29.5 27.1 - 33.3 pg [facility] MCHC 33.1 32.3 - 35.7 g/dL [facility] RDW CV 12.6 11.1 - 14.9 % [facility] RDW SD 41.1 35.7 - 48.1 fL [facility] NRBC abs 0.00 0.00 - 0.01 K/cumm [facility] Blood 09/07/2024 2:59 AM [employer] 09/07/2024 3:02 AM [employer] Jair Armendariz MD LAB BLOOD ORDERABLES Final Result Performing Organization Address [facility] Co de Phone Number [address] Department [place] [address] * Basic metabolic panel (09/07/2024 2:59 AM [employer]) Sodium 143 135 - 145 mmol/L Potassium, pl 4.4 3.3 - 4.9 mmol/L [facility] Chloride 109 97 - 110 mmol/L [facility] CO2 25 22 - 32 mmol/L [facility] Anion gap 9 2 - 15 mmol/L [facility] BUN 24 6 - 25 mg/dL [facility] Creatinine 0.87 0.80 - 1.30 mg/dL [facility] Glucose 86 70 - 199 mg/dL [facility] Comment: Interpretive Data Fasting glucose >/= 126 mg/dl is diagnostic for diabetes. Fasting is defined as no caloric intake for at least 8 hours. Fasting glucose between 100 mg/dl to 125 mg/dl is diagnostic of prediabetes. In a patient with classic symptoms of hyperglycemia or hyperglycemic crisis, a random glucose >/= 200 mg/dl is diagnostic for diabetes. In the absence of unequivocal hyperglycemia, results should be confirmed by repeat testing. The classification and Diagnosis of Diabetes Diabetes Care 2021; 46: S19-S40. Current interpretive data was last revised 2022. Calcium 9.1 8.5 - 10.3 mg/dL [facility] Blood 09/07/2024 2:59 AM [employer] 09/07/2024 3:02 AM [employer] us Jair Armendariz MD LAB BLOOD ORDERABLES Final Result [address] Department [place] [address] * US Vein Duplex Lower Extremity Bilateral Complete (09/03/2024 7:37 PM [employer]) Anatomical Region Laterality Modality Vascular Bilateral Ultrasound 09/04/2024 2:26 PM [employer] Impressions 09/04/2024 2:26 PM [employer] 1. No evidence of DVT in the lower extremities bilaterally. 2. Evidence of pulsatile venous flow. This may suggest increased intravascular volume or right-sided valvular heart disease. Clinical correlation suggested. 3. No change when compared to previous studies. Electronically signed by: Lv Smart M.D. Narrative 09/04/2024 2:26 PM [employer] Lower Extremity Vein Duplex Bilateral DATE: 09/03/2024 7:10 PM EXAM: Venous duplex imaging of bilateral lower extremities. INDICATION: Erythema and swelling. COMPARISON: 08/12/2024 Bilateral common femoral vein, femoral vein, popliteal vein, peroneal veins and posterior tibial veins were all assessed for compressibility and patency. FINDINGS: Right leg: The image quality is good. The veins are compressible throughout. There is pulsatile flow that augments normally. There is no reflux. There is no lymphadenopathy or cyst formation. Duplex images demonstrate no evidence of filling defects in the major deep veins of the right lower extremity. Left leg: The image quality is good. The veins are compressible throughout. There is pulsatile flow that augments normally. There is no reflux. There is no lymphadenopathy or cyst formation. Duplex images demonstrate no evidence of filling defects in the major deep veins of the left lower extremity. Procedure Note Lv Smart MD - 09/04/2024 Lower Extremity Vein Duplex Bilateral DATE: 09/03/2024 7:10 PM EXAM: Venous duplex imaging of bilateral lower extremities. INDICATION: Erythema and swelling. COMPARISON: 08/12/2024 Bilateral common femoral vein, femoral vein, popliteal vein, peroneal veins and posterior tibial veins were all assessed for compressibility and patency. FINDINGS: Right leg: The image quality is good. The veins are compressible throughout. There is pulsatile flow that augments normally. There is no reflux. There is no lymphadenopathy or cyst formation. Duplex images demonstrate no evidence of filling defects in the major deep veins of the right lower extremity. Left leg: The image quality is good. The veins are compressible throughout. There is pulsatile flow that augments normally. There is no reflux. There is no lymphadenopathy or cyst formation. Duplex images demonstrate no evidence of filling defects in the major deep veins of the left lower extremity. IMPRESSION: 1. No evidence of DVT in the lower extremities bilaterally. 2. Evidence of pulsatile venous flow. This may suggest increased intravascular volume or right-sided valvular heart disease. Clinical correlation suggested. 3. No change when compared to previous studies. Electronically signed by: Lv Smart M.D. Ofelia Stanley MD IM US PROCEDURES Final Re sult * MRI Shoulder Right WO Contrast (09/02/2024 9:06 AM [employer]) Anatomical Region Laterality Modality Upper Extremities Right Magnetic Reson ance 09/02/2024 11:0 8 AM [employer] Impressions 09/02/2024 12:42 PM [employer] 1. Minimal right rotator cuff tendinopathy without tear. 2. Mild right glenohumeral chondrosis with likely tear of the posterior superior glenoid labrum. 3. Trace right subacromial subdeltoid bursitis. 4. 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 Dictated by: Denys Jimenez M.D. The radiology attending physician has personally reviewed this study, and had reviewed and/or edited this written report and agrees with it. Electronically signed by: Gudelia Berger MD Narrative 09/02/2024 12:42 PM [employer] EXAMINATION: 1. MRI right shoulder without contrast HISTORY: Right shoulder pain FINDINGS: Multiplanar multisequence noncontrast MR examination of the right shoulder was performed without intravenous contrast. Comparison is made to right shoulder radiographs 06/12/2024. There is a type 2 acromion. The coracoacromial ligament is thin. There is no subacromial spur. The acromioclavicular joint is normal. There is trace subacromial subdeltoid bursitis. Deltoid muscle is normal. The rotator cuff muscle bulk is normal. The subscapularis is intact. Minimal tendinopathy of the supraspinatus and infraspinatus tendons without tear. There is mild glenohumeral chondrosis. On this nonarthrographic evaluation, there is a likely tear of the posterior superior glenoid labrum. The intra-articular biceps tendon is normal. There is a physiologic amount of fluid within the glenohumeral joint. No loose bodies are identified. There is a 1.5 cm T1 hypointense marrow replacing lesion within the medial metadiaphysis of the proximal humerus without associated endosteal scalloping, aggressive periosteal reaction, definite T2 signal abnormality or pathologic fracture. This correlates to an ill-defined sclerotic lesions on recent radiographs. Procedure Note Kristy Berger MD - 09/02/2024 EXAMINATION: 1. MRI right shoulder without contrast HISTORY: Right shoulder pain FINDINGS: Multiplanar multisequence noncontrast MR examination of the right shoulder was performed without intravenous contrast. Comparison is made to right shoulder radiographs 06/12/2024. There is a type 2 acromion. The coracoacromial ligament is thin. There is no subacromial spur. The acromioclavicular joint is normal. There is trace subacromial subdeltoid bursitis. Deltoid muscle is normal. The rotator cuff muscle bulk is normal. The subscapularis is intact. Minimal tendinopathy of the supraspinatus and infraspinatus tendons without tear. There is mild glenohumeral chondrosis. On this nonarthrographic evaluation, there is a likely tear of the posterior superior glenoid labrum. The intra-articular biceps tendon is normal. There is a physiologic amount of fluid within the glenohumeral joint. No loose bodies are identified. There is a 1.5 cm T1 hypointense marrow replacing lesion within the medial metadiaphysis of the proximal humerus without associated endosteal scalloping, aggressive periosteal reaction, definite T2 signal abnormality or pathologic fracture. This correlates to an ill-defined sclerotic lesions on recent radiographs. IMPRESSION: 1. Minimal right rotator cuff tendinopathy without tear. 2. Mild right glenohumeral chondrosis with likely tear of the posterior superior glenoid labrum. 3. Trace right subacromial subdeltoid bursitis. 4. 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 Dictated by: Denys Jimenez M.D. The radiology attending physician has personally reviewed this study, and had reviewed and/or edited this written report and agrees with it. Electronically signed by: Gudelia Berger MD us Qi Donald NP IMG MRI PROCEDURES Final Re sult * XR Ankle Right 2 Views (09/01/2024 9:33 PM [employer]) Anatomical Region Laterality Modality Lower Extremities, Ankle Right Compute d Radiography 09/02/2024 8:13 AM [employer] Impressions 09/02/2024 8:13 AM [employer] There is mild swelling about the right ankle. There is a fracture of the base of 5th metacarpal, similar to prior. No additional fractures. The joints are normal. Electronically signed by: Brice Mantilla M.D. Narrative 09/02/2024 8:13 AM [employer] EXAMINATION: XR ANKLE RIGHT 2 VIEWS HISTORY: pain COMPARISON: 08/31/2024 Procedure Note Brice Mantilla MD - 09/02/2024 EXAMINATION: XR ANKLE RIGHT 2 VIEWS HISTORY: pain COMPARISON: 08/31/2024 IMPRESSION: There is mild swelling about the right ankle. There is a fracture of the base of 5th metacarpal, similar to prior. No additional fractures. The joints are normal. Electronically signed by: Brice Mantilla M.D. us Tl Luna MD IMG XR PROCEDURES Final R esult * XR Tibia Fibula Right 2 views (09/01/2024 8:37 AM [employer]) Anatomical Region Laterality Modality Lower Extremities, Lower Leg Right Com puted Radiography 09/01/2024 8:45 AM [employer] Impressions 09/01/2024 8:45 AM [employer] No acute fracture of the tibia or fibula. Alignment is normal. Electronically signed by: Greg Joy M.D. Narrative 09/01/2024 8:45 AM [employer] EXAMINATION: XR TIBIA FIBULA RIGHT2 VIEWS HISTORY: Pain s/p twisting injury Procedure Note Greg Joy MD - 09/01/2024 EXAMINATION: XR TIBIA FIBULA RIGHT2 VIEWS HISTORY: Pain s/p twisting injury IMPRESSION: No acute fracture of the tibia or fibula. Alignment is normal. Electronically signed by: Greg Joy M.D. Terry MARQUES IMG XR PROCEDURES F inal Result * XR Ankle Right 3 or More Views (08/31/2024 10:35 PM [employer]) Anatomical Region Laterality Modality Lower Extremities, Ankle Right Compute d Radiography 09/01/2024 11:1 6 AM [employer] Impressions 09/01/2024 11:16 AM [employer] Comparison is made to a prior study dated 06/12/2024 and 03/30/2024. There is mild soft tissue swelling about the right ankle. There is an unchanged comminuted fracture of the right 5th metatarsal base. 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 No new fracture is identified. Small enthesophyte at the distal right Achilles insertion. Electronically signed by: Ness Liz M.D. Narrative 09/01/2024 11:16 AM [employer] EXAMINATION: XR ANKLE RIGHT 3 OR MORE VIEWS, XR FOOT RIGHT 3 OR MORE VIEWS HISTORY: Pain Procedure Note Ness Liz MD - 09/01/2024 EXAMINATION: XR ANKLE RIGHT 3 OR MORE VIEWS, XR FOOT RIGHT 3 OR MORE VIEWS HISTORY: Pain IMPRESSION: Comparison is made to a prior study dated 06/12/2024 and 03/30/2024. There is mild soft tissue swelling about the right ankle. There is an unchanged comminuted fracture of the right 5th metatarsal base. 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 No new fracture is identified. Small enthesophyte at the distal right Achilles insertion. Electronically signed by: Ness Liz M.D. Bong Aguilera MD IM XR PROCEDURES Final Res ult * XR Foot Right 3 or More Views (08/31/2024 10:34 PM [employer]) Anatomical Region Laterality Modality Lower Extremities, Foot Right Computed Radiography 09/01/2024 11:1 6 AM [employer] Impressions 09/01/2024 11:16 AM [facility] SANDER Comparison is made to a prior study dated 06/12/2024 and 03/30/2024. There is mild soft tissue swelling about the right ankle. There is an unchanged comminuted fracture of the right 5th metatarsal base. 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 No new fracture is identified. Small enthesophyte at the distal right Achilles insertion. Electronically signed by: Ness Liz M.D. Narrative 09/01/2024 11:16 AM GLASS BELT SANDER EXAMINATION: XR ANKLE RIGHT 3 OR MORE VIEWS, XR FOOT RIGHT 3 OR MORE VIEWS HISTORY: Pain Procedure Note Ness Liz MD - 09/01/2024 EXAMINATION: XR ANKLE RIGHT 3 OR MORE VIEWS, XR FOOT RIGHT 3 OR MORE VIEWS HISTORY: Pain IMPRESSION: Comparison is made to a prior study dated 06/12/2024 and 03/30/2024. There is mild soft tissue swelling about the right ankle. There is an unchanged comminuted fracture of the right 5th metatarsal base. 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 No new fracture is identified. Small enthesophyte at the distal right Achilles insertion. Electronically signed by: Ness Liz M.D. us Melissa Reddy MD IMG XR PROCEDURES Final Re sult * Sepsis Lactate w/ Reflex (08/23/2024 2:33 AM GLASS BELT SANDER) Sepsis Lactate 0.7 0.7 - 2.0 mmol/L Blood 08/23/2024 2:33 AM GLASS BELT SANDER 08/23/2024 2:46 AM GLASS BELT SANDER us Salena Crawley MD LAB BLOOD ORDERABLES Fin al Result [facility] [address] [place] [address] * eGFR (08/23/2024 2:33 AM GLASS BELT SANDER) [facility] eGFR >90 >=60 mL/min/1. 73 m2 Comment: Interpretive Data Reference Interval Normal >/= 90 mL/min/1.73m2 Mildly decreased* 60 - 89 mL/min/1.73m2 Mildly to moderately decreased 45 - 59 mL/min/1.73m2 Moderately to severely decreased 30 - 44 mL/min/1.73m2 Severely decreased 15 - 29 mL/min/1.73m2 Kidney Failure < 15 mL/min/1.73m2 *Relative to young adult level Estimated glomerular filtration rate is determined by the 2020 CKD-EPI equation recommended by the National Kidney Foundation (A Unifying Approach to GFR Estimation: Recommendations of the NKF-ASK Task Force on Reassessing the Inclusion of Race in Diagnosing Kidney Disease, JASN 2020). The CKD-EPI equation should not be used for patients with unstable renal function and has not been validated in children and those over 70. Current interpretive data was last reviewed 2021. Blood 08/23/2024 2:33 AM GLASS BELT SANDER 08/23/2024 3:24 AM GLASS BELT SANDER us Salena Crawley MD LAB BLOOD ORDERABLES Fin al Result [facility] [address] Department [place] [address] * Differential, auto (08/23/2024 2:33 AM GLASS BELT SANDER) [facility] Neutrophil abs 3.1 1.5 - 6.5 K/cumm Imm gran abs 0.0 0.0 - 0.1 K/cumm [facility] Lymphocyte abs 2.0 0.8 - 3.3 K/cumm [facility] Monocyte abs 0.5 0.2 - 0.8 K/cumm [facility] Eosinophil abs 0.2 0.0 - 0.5 K/cumm [facility] Basophil abs 0.1 0.0 - 0.1 K/cumm [facility] Neutrophil pct 53.2 % [facility] Comment: Interpretive Data Percent cell count reference ranges are not reported, since discordance with absolute values may lead to misinterpretation of CBC data. Current Interpretive Data was last revised on 2017. Imm gran pct 0.2 % [facility] Comment: Interpretive Data Percent cell count reference ranges are not reported, since discordance with absolute values may lead to misinterpretation of CBC data. Current Interpretive Data was last revised on 2017. Lymphocyte pct 34.0 % [facility] Comment: Interpretive Data Percent cell count reference ranges are not reported, since discordance with absolute values may lead to misinterpretation of CBC data. Current Interpretive Data was last revised on 2017. Monocyte pct 7.8 % [facility] Comment: Interpretive Data Percent cell count reference ranges are not reported, since discordance with absolute values may lead to misinterpretation of CBC data. Current Interpretive Data was last revised on 2017. Eosinophil pct 3.8 % [facility] Comment: Interpretive Data Percent cell count reference ranges are not reported, since discordance with absolute values may lead to misinterpretation of CBC data. Current Interpretive Data was last revised on 2017. Basophil pct 1.0 % [facility] Comment: Interpretive Data Percent cell count reference ranges are not reported, since discordance with absolute values may lead to misinterpretation of CBC data. Current Interpretive Data was last revised on 2017. Blood 08/23/2024 2:33 AM GLASS BELT SANDER 08/23/2024 3:24 AM GLASS BELT SANDER Salena Crawley MD LAB BLOOD ORDERABLES Fin al Result [facility] [address] Department [place] [address] * Pro B-type natriuretic peptide (08/23/2024 2:33 AM GLASS BELT SANDER) NT-proBNP <36 <=300 pg/mL Comment: Interpretive Comments: A. Dyspnea in Acute Care Setting All Ages: < 300 pg/ml, acute heart failure unlikely. < 50 yrs: 300 - 450 pg/ml, further investigation warranted. > 450 pg/ml, acute heart failure likely. 50 - 74 yrs: 300 - 900 pg/ml, further investigation warranted. > 900 pg/ml, acute heart failure likely . > or = 75 yrs: 450 - 1800 pg/ml, further investigation warranted. > 1800 pg/ml, acute heart failure likely. B. Non-acute Setting < 75 yrs < 125 pg/ml, rules out heart failure. > or = 125 pg/ml, further investigation warranted. > or = 75 yrs < 450 pg/ml, rules out heart failure. > or = 450 pg/ml, further investigation warranted. - Knowledge of each individual patient's NT-proBNP range may be more useful than using similar cut-points for every patient. Please note that marked elevations in NT-proBNP levels may be observed in state other than Left Ventricular Congestive Failure, including: acute coronary syndromes, right heart strain/failure (including pulmonary embolism and cor pulmonale), critical illness, renal failure, as well as advanced age. - References: 1. Adi CAMP et.al. Eur Heart J. 2006:27:330-337. 2. Xiomara RW, Caryn MORAN. J. AM Emerson Cardiol: Cardiovasc Imag. 2009;2: 216- 225. Interpretive Data Last Revised Date: 2018. Blood 08/23/2024 2:33 AM GLASS BELT SANDER 08/23/2024 3:24 AM GLASS BELT SANDER us Salena Crawley MD LAB BLOOD ORDERABLES Fin al Result [facility] [address] Department [place] [address] * (ABNORMAL) CBC with auto differential (08/23/2024 2:33 AM GLASS BELT SANDER) WBC 5.8 3.8 - 9.9 K/cumm Hgb 12.9(L) 13.0 - 17.5 g/dL [facility] Hct 39.2 38.9 - 50.3 % [facility] Plt 205 150 - 400 K/cumm [facility] MPV 10.8 9.1 - 12.3 fL [facility] RBC 4.39 4.30 - 5.80 M/cumm [facility] MCV 89.3 81.3 - 96.4 fL [facility] MCH 29.4 27.1 - 33.3 pg [facility] MCHC 32.9 32.3 - 35.7 g/dL [facility] RDW CV 12.8 11.1 - 14.9 % [facility] RDW SD 41.8 35.7 - 48.1 fL [facility] NRBC abs 0.00 0.00 - 0.01 K/cumm [facility] Blood 08/23/2024 2:33 AM GLASS BELT SANDER 08/23/2024 3:24 AM GLASS BELT SANDER Salena Crawley MD LAB BLOOD ORDERABLES Fin al Result Performing Organization Address [facility]/ZIP Co de Phone Number [facility] [address] [place] [place] [address] * Blood culture Blood (08/23/2024 2:33 AM GLASS BELT SANDER) Report Final Report: No growth Blood 08/23/2024 2:33 AM GLASS BELT SANDER 08/23/2024 2:47 AM GLASS BELT SANDER Narrative [facility] - 08/28/2024 7:01 AM GLASS BELT SANDER From a different site than #1. Collection->Peripheral Interpretive Data 1. Blood cultures are incubated and monitored continuously for 5 days (120 hours). The first negative report is issued within 24 hours of receipt in the laboratory. 2. All positive cultures are resulted and called to physicians/care providers as soon as they are detected. 3. A rapid molecular test for organism identification may be performed using the [employer] Blood Culture Identification panel. This assay detects microbial DNA in a blood culture broth. This assay has been cleared by the [place] Food and Drug Administration and its performance characteristics have been verified by the [facility]. Interpretive data was last revised on September 03, 2022. Salena Crawley MD LAB MICROBIOLOGY - GENER AL ORDERABLES Final Result Performing Organization Address City/[facility]/ZIP Co de Phone Number [facility] [address] Department [place] [address] * Blood culture Blood (08/23/2024 2:33 AM GLASS BELT SANDER) Pathologist [facility] Report Final Report: No growth Blood 08/23/2024 2:33 AM GLASS BELT SANDER 08/23/2024 2:48 AM GLASS BELT SANDER Narrative [facility] - 08/28/2024 7:01 AM GLASS BELT SANDER Collection->Peripheral Interpretive Data 1. Blood cultures are incubated and monitored continuously for 5 days (120 hours). The first negative report is issued within 24 hours of receipt in the laboratory. 2. All positive cultures are resulted and called to physicians/care providers as soon as they are detected. 3. A rapid molecular test for organism identification may be performed using the [a][employer] Blood Culture Identification panel. This assay detects microbial DNA in a blood culture broth. This assay has been cleared by the [place] Food and Drug Administration and its performance characteristics have been verified by the [facility]. Interpretive data was last revised on September 03, 2022. Salena Crawley MD LAB MICROBIOLOGY - GENER AL ORDERABLES Final Result [facility] [address] Department [place] [address] * (ABNORMAL) Comprehensive metabolic panel (08/23/2024 2:33 AM GLASS BELT SANDER) Pathologist [facility] Sodium 140 135 - 145 mmol/L Potassium, pl 3.9 3.3 - 4.9 mmol/L [facility] Chloride 104 97 - 110 mmol/L [facility] CO2 25 22 - 32 mmol/L [facility] Anion gap 11 2 - 15 mmol/L [facility] BUN 24 6 - 25 mg/dL [facility] Creatinine 0.82 0.80 - 1.30 mg/dL [facility] Glucose 83 70 - 199 mg/dL [facility] Comment: Interpretive Data Fasting glucose >/= 126 mg/dl is diagnostic for diabetes. Fasting is defined as no caloric intake for at least 8 hours. Fasting glucose between 100 mg/dl to 125 mg/dl is diagnostic of prediabetes. In a patient with classic symptoms of hyperglycemia or hyperglycemic crisis, a random glucose >/= 200 mg/dl is diagnostic for diabetes. In the absence of unequivocal hyperglycemia, results should be confirmed by repeat testing. The classification and Diagnosis of Diabetes Diabetes Care 2021; 46: S19-S40. Current interpretive data was last revised 2022. Calcium 9.3 8.5 - 10.3 mg/dL [facility] Bilirubin, total 0.6 0.1 - 1.2 mg/dL [facility] Protein, pl 6.9 6.5 - 8.5 g/dL [facility] Albumin 4.0 3.5 - 5.0 g/dL [facility] Alk phos 70 40 - 130 Units/L [facility] ALT 65(H) 7 - 55 Units/L [facility] AST 30 10 - 50 Units/L [facility] Comment:Slightly Hemolyzed S pecimen Blood 08/23/2024 2:33 AM GLASS BELT SANDER 08/23/2024 3:24 AM GLASS BELT SANDER Salena Crawley MD LAB BLOOD ORDERABLES Fin al Result Performing Organization Address City/[facility]/ZIP Co de Phone Number [facility] [address] Department [place] [address] * ECG 12 lead (08/23/2024 2:32 AM GLASS BELT SANDER) 08/23/2024 2:32 AM GLASS BELT SANDER Narrative [facility] - 08/24/2024 4:38 PM GLASS BELT SANDER Vent Rate: 64 bpm RR Interval: 935 msec [place] Interval: 174 msec QRS Duration: 109 msec QT Interval: 409 msec QTC Interval: 418 msec P-R-T [place]: 68 - 81 - 41 degrees IMPRESSION: SINUS RHYTHM NORMAL ECG Electronically Signed By: Andrea JONES Salena Crawley MD ECG ORDERABLES Final Re sult Performing Organization Address City/[facility]/ZIP Co de Phone Number [facility] [place] [facility] * eGFR (08/21/2024 12:35 AM GLASS BELT SANDER) eGFR >90 >=60 mL/min/1. 73 m2 Comment: Interpretive Data Reference Interval Normal >/= 90 mL/min/1.73m2 Mildly decreased* 60 - 89 mL/min/1.73m2 Mildly to moderately decreased 45 - 59 mL/min/1.73m2 Moderately to severely decreased 30 - 44 mL/min/1.73m2 Severely decreased 15 - 29 mL/min/1.73m2 Kidney Failure < 15 mL/min/1.73m2 *Relative to young adult level Estimated glomerular filtration rate is determined by the 2020 CKD-EPI equation recommended by the National Kidney Foundation (A Unifying Approach to GFR Estimation: Recommendations of the NKF-ASK Task Force on Reassessing the Inclusion of Race in Diagnosing Kidney Disease, JASN 2020). The CKD-EPI equation should not be used for patients with unstable renal function and has not been validated in children and those over 70. Current interpretive data was last reviewed 2021. Blood 08/21/2024 12:3 5 AM GLASS BELT SANDER 08/21/2024 12:40 AM GLASS BELT SANDER us Magalis MARQUES LAB BLOOD ORDERABLE S Final Result [facility] [address] [facility] Department [place] [address] * Differential, auto (08/21/2024 12:35 AM GLASS BELT SANDER) Neutrophil abs 3.7 1.5 - 6.5 K/cumm Imm gran abs 0.0 0.0 - 0.1 K/cumm [facility] Lymphocyte abs 2.2 0.8 - 3.3 K/cumm [facility] Monocyte abs 0.6 0.2 - 0.8 K/cumm [facility] Eosinophil abs 0.3 0.0 - 0.5 K/cumm [facility] Basophil abs 0.1 0.0 - 0.1 K/cumm [facility] Neutrophil pct 54.1 % [facility] Comment: Interpretive Data Percent cell count reference ranges are not reported, since discordance with absolute values may lead to misinterpretation of CBC data. Current Interpretive Data was last revised on 2017. Imm gran pct 0.1 % [facility] Comment: Interpretive Data Percent cell count reference ranges are not reported, since discordance with absolute values may lead to misinterpretation of CBC data. Current Interpretive Data was last revised on 2017. Lymphocyte pct 32.5 % [facility] Comment: Interpretive Data Percent cell count reference ranges are not reported, since discordance with absolute values may lead to misinterpretation of CBC data. Current Interpretive Data was last revised on 2017. Monocyte pct 8.3 % [facility] Comment: Interpretive Data Percent cell count reference ranges are not reported, since discordance with absolute values may lead to misinterpretation of CBC data. Current Interpretive Data was last revised on 2017. Eosinophil pct 4.3 % [facility] Comment: Interpretive Data Percent cell count reference ranges are not reported, since discordance with absolute values may lead to misinterpretation of CBC data. Current Interpretive Data was last revised on 2017. Basophil pct 0.7 % [facility] Comment: Interpretive Data Percent cell count reference ranges are not reported, since discordance with absolute values may lead to misinterpretation of CBC data. Current Interpretive Data was last revised on 2017. Blood 08/21/2024 12:3 5 AM GLASS BELT SANDER 08/21/2024 12:40 AM GLASS BELT SANDER us Magalis MARQUES LAB BLOOD ORDERABLE S Final Result [address] Department [place] [address] * (ABNORMAL) CBC with auto differential (08/21/2024 12:35 AM GLASS BELT SANDER) WBC 6.9 3.8 - 9.9 K/cumm Hgb 12.1(L) 13.0 - 17.5 g/dL [facility] Hct 36.8(L) 38.9 - 50.3 % [facility] Plt 200 150 - 400 K/cumm [facility] MPV 10.1 9.1 - 12.3 fL [facility] RBC 4.14(L) 4.30 - 5.80 M/cumm [facility] MCV 88.9 81.3 - 96.4 fL [facility] MCH 29.2 27.1 - 33.3 pg [facility] MCHC 32.9 32.3 - 35.7 g/dL [facility] RDW CV 12.8 11.1 - 14.9 % [facility] RDW SD 41.5 35.7 - 48.1 fL [facility] NRBC abs 0.00 0.00 - 0.01 K/cumm [facility] Blood 08/21/2024 12:3 5 AM GLASS BELT SANDER 08/21/2024 12:40 AM GLASS BELT SANDER Magalis MARQUES LAB BLOOD ORDERABLE S Final Result Performing Organization Address City/[facility]/ZIP Co de Phone Number [address] [place] [address] * Erythrocyte sedimentation rate (08/21/2024 12:35 AM GLASS BELT SANDER) Erythrocyte sedimentation rate 5 1 - 15 mm/hr [facility] Blood 08/21/2024 12:3 5 AM GLASS BELT SANDER 08/21/2024 12:40 AM GLASS BELT SANDER Magalis MARQUES LAB BLOOD ORDERABLE S Final Result [address] [address] * CRP (acute phase) (08/21/2024 12:35 AM GLASS BELT SANDER) CRP <3.5 <=10.0 mg/L Blood 08/21/2024 12:3 5 AM GLASS BELT SANDER 08/21/2024 12:40 AM GLASS BELT SANDER Magalis MARQUES LAB BLOOD ORDERABLE S Final Result [facility] [address] Department [place] [address] * (ABNORMAL) Basic metabolic panel (08/21/2024 12:35 AM GLASS BELT SANDER) Pathologist [facility] Sodium 140 135 - 145 mmol/L Potassium, pl 4.2 3.3 - 4.9 mmol/L [facility] Chloride 104 97 - 110 mmol/L [facility] CO2 26 22 - 32 mmol/L [facility] Anion gap 10 2 - 15 mmol/L [facility] BUN 34(H) 6 - 25 mg/dL [facility] Creatinine 0.91 0.80 - 1.30 mg/dL [facility] Glucose 96 70 - 199 mg/dL [facility] Comment: Interpretive Data Fasting glucose >/= 126 mg/dl is diagnostic for diabetes. Fasting is defined as no caloric intake for at least 8 hours. Fasting glucose between 100 mg/dl to 125 mg/dl is diagnostic of prediabetes. In a patient with classic symptoms of hyperglycemia or hyperglycemic crisis, a random glucose >/= 200 mg/dl is diagnostic for diabetes. In the absence of unequivocal hyperglycemia, results should be confirmed by repeat testing. The classification and Diagnosis of Diabetes Diabetes Care 2021; 46: S19-S40. Current interpretive data was last revised 2022. Calcium 9.1 8.5 - 10.3 mg/dL [facility] Blood 08/21/2024 12:3 5 AM GLASS BELT SANDER 08/21/2024 12:40 AM GLASS BELT SANDER us Magalis MARQUES LAB BLOOD ORDERABLE S Final Result [facility] [address] Department [place] [address] * Streptococcus Group A PCR Throat (08/20/2024 9:19 AM GLASS BELT SANDER) Pathologist [facility] Strep A DNA Not Detected Not Detected [facility] Comment: This test is performed using the [employer] Xpert Group A Streptococcal Assay. This is a qualitative, real-time PCR assay that detects Group A Strep using throat specimens from patients suspected of having streptococcal pharyngitis. This assay does not detect other beta-hemolytic streptococci including Group C or Group G. Group C and G have been associated with pharyngitis and, occasionally, acute nephritis but do not cause rheumatic fever. If suspected, order Throat Culture, Routine. This assay has been cleared by the [place] Food and Drug Administration, and its performance characteristics have been verified by the performing laboratory. Throat 08/20/2024 9:19 AM GLASS BELT SANDER 08/20/2024 9:22 AM GLASS BELT SANDER Fei Murray MD LAB MICROBIOLOGY - GENERAL ORDERABLES Final Result [facility] [address] Department [place] [address] * Respiratory pathogen panel Nasopharyngeal (08/20/2024 9:19 AM GLASS BELT SANDER) Pathologist [facility] Influenza A RNA Not Detected Not Detected Influenza B RNA Not Detected Not Detected [facility] RSV RNA Not Detected Not Detected [facility] COVID-19 RNA Not Detected Not Detected [facility] Coronavirus 229E RNA Not Detected Not Detected [facility] Coronavirus HKU1 RNA Not Detected Not Detected [facility] Coronavirus NL63 RNA Not Detected Not Detected [facility] Coronavirus OC43 RNA Not Detected Not Detected [facility] Adenovirus DNA Not Detected Not Detected [facility] Metapneumovirus RNA Not Detected Not Detected [facility] Rhinovirus/Enterov irus RNA Not Detected Not Detected [facility] Parainfluenza 1 RNA Not Detected Not Detected [facility] Parainfluenza 2 RNA Not Detected Not Detected [facility] Parainfluenza 3 RNA Not Detected Not Detected [facility] Parainfluenza 4 RNA Not Detected Not Detected [facility] B. pertussis DNA Not Detected Not Detected [facility] B. parapertussis DNA Not Detected Not Detected [facility] C. pneumoniae DNA Not Detected Not Detected [facility] M. pneumoniae DNA Not Detected Not Detected [facility] Comment: Interpretive Data The [employer] FilmArray Respiratory Panel (RP2.1) assay is a multiplexed real-time PCR based nucleic acid test capable of simultaneous qualitative detection and identification of multiple respiratory viral and bacterial nucleic acids, including SARS Coronavirus 2 (the causative agent of COVID-19). The following bacteria, viruses and virus subtypes can be identified using the [employer] RP2.1 assay: Bordetella pertussis, Bordetella parapertussis, Chlamydia pneumoniae, Mycoplasma pneumoniae, Adenovirus, SARS Coronavirus 2, seasonal coronaviruses (Coronavirus HKU1, Coronavirus NL63, Coronavirus 229E, and Coronavirus OC43), Influenza A, Influenza A subtype H1, Influenza A subtype H3, Influenza A subtype 2009 H1, Influenza B, Metapneumovirus, Parainfluenza 1, Parainfluenza 2, Parainfluenza 3, Parainfluenza 4, RSV, Rhinovirus/Enterovirus. Due to the genetic similarity between human Rhinovirus and Enterovirus, the [employer] RP2.1 assay cannot reliably differentiate them. Coronavirus OC43 may cross-react with some isolates of Coronavirus HKU1. A dual positive result may be due to cross-reactivity or may indicate a co- infection. The detection and identification of specific viral and bacterial nucleic acids from individuals exhibiting signs and symptoms of a respiratory infection aids in the diagnosis of respiratory infection if used in conjunction with other clinical and epidemiological information. The results of this test should not be used as the sole basis for diagnosis, treatment, or other management decisions. Negative results in the setting of a respiratory illness may be due to infection with pathogens that are not detected by this test. Positive results do not rule out infection/co-infection with other organisms. The agent(s) detected by the [employer] RP2.1 may not be the definite cause of disease. Additional testing (lab, imaging, etc.) may be necessary when evaluating a patient with possible respiratory tract infection. The [employer] RP2.1 assay has FDA clearance for testing of CLINICAL RESEARCH DIRECTOR swabs. The performance characteristics of this assay have been determined by [facility]. Current interpretive data was last revised on 2021. Nasopharyngeal 08/20/2024 9: 19 AM GLASS BELT SANDER 08/20/2024 9:22 AM GLASS BELT SANDER Bernadette ELIAS - 08/20/2024 10:22 AM GLASS BELT SANDER Is the Patient experiencing symptoms consistent with COVID?->Yes Surveillance testing for transplant patient?->No us Fei Murray MD LAB MICROBIOLOGY - GENERAL ORDERABLES Final Result [facility] [address] [place] [address] [facility] * (ABNORMAL) D-dimer, quantitative (08/15/2024 1:08 AM GLASS BELT SANDER) D-Dimer 647(H) <=499 ng/mL [facility] Comment: Interpretive data FDA approved the D-dimer, in conjunction with a low or moderate pretest probability score, to exclude venous thromboembolic events (VTE) (PE and DVT) in outpatients when the D-dimer result is < 500 ng/ml FEU. Evidence supports using an age-adjusted D-dimer cut-off for outpatients older than 50 (age x 10) to improve specificity without sacrificing sensitivity. Example: age 70, VTE cut-off 680 ng/ml FEU. References; Schouten HT et al. Brit Med J. 2013;346:f2492. Carlitos et al. Annals Int Med. 2015;163:701-11. Current interpretive data was last revised on 2019. Blood 08/15/2024 1:08 AM [facility] 08/15/2024 1:11 AM [facility]ER Maddison Muhammad NP LAB BLOOD ORDERABLES Final Resul t Performing Organization Address City/[facility]/ZIP Co de Phone Number [facility] [id number] [facility] [place] [address] * eGFR (08/14/2024 9:59 PM GLASS BELT SANDER) eGFR >90 >=60 mL/min/1. 73 m2 Comment: Interpretive Data Reference Interval Normal >/= 90 mL/min/1.73m2 Mildly decreased* 60 - 89 mL/min/1.73m2 Mildly to moderately decreased 45 - 59 mL/min/1.73m2 Moderately to severely decreased 30 - 44 mL/min/1.73m2 Severely decreased 15 - 29 mL/min/1.73m2 Kidney Failure < 15 mL/min/1.73m2 *Relative to young adult level Estimated glomerular filtration rate is determined by the 2020 CKD-EPI equation recommended by the National Kidney Foundation (A Unifying Approach to GFR Estimation: Recommendations of the NKF-ASK Task Force on Reassessing the Inclusion of Race in Diagnosing Kidney Disease, JASN 2020). The CKD-EPI equation should not be used for patients with unstable renal function and has not been validated in children and those over 70. Current interpretive data was last reviewed 2021. Blood 08/14/2024 9:59 PM [facility]ER 08/14/2024 10:10 PM [employer]ER us Abigail Richards MD LAB BLOOD ORDERABLES Final Result [facility] [id number] [facility] [place] [address] * Differential, auto (08/14/2024 9:59 PM [employer]ER) Neutrophil abs 3.7 1.5 - 6.5 K/cumm Imm gran abs 0.0 0.0 - 0.1 K/cumm [facility] Lymphocyte abs 2.0 0.8 - 3.3 K/cumm [facility] Monocyte abs 0.5 0.2 - 0.8 K/cumm [facility] Eosinophil abs 0.2 0.0 - 0.5 K/cumm [facility] Basophil abs 0.1 0.0 - 0.1 K/cumm [facility] Neutrophil pct 57.5 % CERLEN G[facility] Comment: Interpretive Data Percent cell count reference ranges are not reported, since discordance with absolute values may lead to misinterpretation of CBC data. Current Interpretive Data was last revised on 2017. Imm gran pct 0.2 % [facility]ADA [facility] Comment: Interpretive Data Percent cell count reference ranges are not reported, since discordance with absolute values may lead to misinterpretation of CBC data. Current Interpretive Data was last revised on 2017. Lymphocyte pct 30.2 % JADA GOODE Comment: Interpretive Data Percent cell count reference ranges are not reported, since discordance with absolute values may lead to misinterpretation of CBC data. Current Interpretive Data was last revised on 2017. Monocyte pct 7.6 % [facility]ADA [facility] Comment: Interpretive Data Percent cell count reference ranges are not reported, since discordance with absolute values may lead to misinterpretation of CBC data. Current Interpretive Data was last revised on 2017. Eosinophil pct 3.4 % [facility]ADA GOO[facility] Comment: Interpretive Data Percent cell count reference ranges are not reported, since discordance with absolute values may lead to misinterpretation of CBC data. Current Interpretive Data was last revised on 2017. Basophil pct 1.1 % [facility]ADA G[facility] Comment: Interpretive Data Percent cell count reference ranges are not reported, since discordance with absolute values may lead to misinterpretation of CBC data. Current Interpretive Data was last revised on 2017. Blood 08/14/2024 9:59 PM [employer]ER 08/14/2024 10:10 PM [employer]ER Abigail Richards MD LAB BLOOD ORDERABLES Final Result [facility] [address] [facility]. [place] [address] * Pro B-type natriuretic peptide (08/14/2024 9:59 PM [employer]ER) NT-proBNP 75 <=300 pg/mL Comment: Interpretive Comments: A. Dyspnea in Acute Care Setting All Ages: < 300 pg/ml, acute heart failure unlikely. < 50 yrs: 300 - 450 pg/ml, further investigation warranted. > 450 pg/ml, acute heart failure likely. 50 - 74 yrs: 300 - 900 pg/ml, further investigation warranted. > 900 pg/ml, acute heart failure likely . > or = 75 yrs: 450 - 1800 pg/ml, further investigation warranted. > 1800 pg/ml, acute heart failure likely. B. Non-acute Setting < 75 yrs < 125 pg/ml, rules out heart failure. > or = 125 pg/ml, further investigation warranted. > or = 75 yrs < 450 pg/ml, rules out heart failure. > or = 450 pg/ml, further investigation warranted. - Knowledge of each individual patient's NT-proBNP range may be more useful than using similar cut-points for every patient. Please note that marked elevations in NT-proBNP levels may be observed in state other than Left Ventricular Congestive Failure, including: acute coronary syndromes, right heart strain/failure (including pulmonary embolism and cor pulmonale), critical illness, renal failure, as well as advanced age. - References: 1. Adi CAMP et.al. Eur Heart J. 2006:27:330-337. 2. Xiomara RW, Caryn MORAN. J. AM Emerson Cardiol: Cardiovasc Imag. 2009;2: 216- 225. Interpretive Data Last Revised Date: 2018. Blood 08/14/2024 9:59 PM [facility] [employer]ER 08/14/2024 10:10 PM [employer]ER Abigail Richards MD LAB BLOOD ORDERABLES Final Result [facility] [address] [facility]. [place] [address] * CBC with auto differential (08/14/2024 9:59 PM [employer]ER) WBC 6.5 3.8 - 9.9 K/cumm Hgb 13.3 13.0 - 17.5 g/dL [facility] Hct 39.8 38.9 - 50.3 % [facility] Plt 218 150 - 400 K/cumm [facility] MPV 10.0 9.1 - 12.3 fL [facility] RBC 4.49 4.30 - 5.80 M/cumm [facility] MCV 88.6 81.3 - 96.4 fL [facility] MCH 29.6 27.1 - 33.3 pg [facility] MCHC 33.4 32.3 - 35.7 g/dL [facility] RDW CV 12.7 11.1 - 14.9 % [facility] RDW SD 41.1 35.7 - 48.1 fL [facility] NRBC abs 0.00 0.00 - 0.01 K/cumm [facility] Blood (Blood, Venous) 08/14/2024 9:59 PM [employer]ER 08/14/2024 10:10 PM [employer]ER Abigail Richards MD LAB BLOOD ORDERABLES Final Result Performing Organization Address [facility] Co de Phone Number JADA GOODE [address] [facility] [place] [address] * Lipase (08/14/2024 9:59 PM [employer]ASS [employer] SANDER) Pathologist [facility] Lipase 50 10 - 99 Units/L Blood (Blood, Venous) 08/14/2024 9:59 PM [employer]ER 08/14/2024 10:10 PM [employer]ER Abigail Richards MD LAB BLOOD ORDERABLES Final Result Performing Organization Address [facility] Phone Number JADA AGRAWALCH [id number] [facility] [place] [address] * (ABNORMAL) Comprehensive metabolic panel (08/14/2024 9:59 PM [employer] [employer] SANDER) Pathologist [facility] Sodium 139 135 - 145 mmol/L Potassium, pl 3.9 3.3 - 4.9 mmol/L [facility] Chloride 101 97 - 110 mmol/L [facility] CO2 27 22 - 32 mmol/L [facility] Anion gap 11 2 - 15 mmol/L [facility] BUN 25 6 - 25 mg/dL [facility] Creatinine 0.90 0.80 - 1.30 mg/dL [facility] Glucose 92 70 - 199 mg/dL [facility] Comment: Interpretive Data Fasting glucose >/= 126 mg/dl is diagnostic for diabetes. Fasting is defined as no caloric intake for at least 8 hours. Fasting glucose between 100 mg/dl to 125 mg/dl is diagnostic of prediabetes. In a patient with classic symptoms of hyperglycemia or hyperglycemic crisis, a random glucose >/= 200 mg/dl is diagnostic for diabetes. In the absence of unequivocal hyperglycemia, results should be confirmed by repeat testing. The classification and Diagnosis of Diabetes Diabetes Care 202; 46: S19-S40. Current interpretive data was last revised 2022. Calcium 9.3 8.5 - 10.3 mg/dL [facility] Bilirubin, total 0.5 0.1 - 1.2 mg/dL [facility] Protein, pl 6.6 6.5 - 8.5 g/dL [facility] Albumin 4.0 3.5 - 5.0 g/dL [facility] Alk phos 91 40 - 130 Units/L [facility] ALT 168(H) 7 - 55 Units/L [facility] AST 66(H) 10 - 50 Units/L [facility] Blood 08/14/2024 9:59 PM [employer]ER 08/14/2024 10:10 PM [employer]ER us Abigail Richards MD LAB BLOOD ORDERABLES Final Result [facility] [id number] [facility]. [place] [address] * TRANSTHORACIC ECHO (TTE) COMPLETE W DOPPLER/CF WO CONTRAST (08/14/2024 11:39 AM [employer]ANDER) LV EF 55-60 % CONS SCIMAGE Anatomical Region Laterality Modality Ultrasound 08/14/2024 10:0 7 AM [employer]ER Narrative 08/14/2024 11:49 AM [employer]ANDER [facility] [address] [place] [address] ECHOCARDIOGRAM Patient Name: LISA MCCOY : 1980 (43y 11m) Gender: M Study Date: 08/14/2024 10:07:30 AM Ht(Inch): 68 Wt(Lb): 173.06 BSA: 1.94 Nursery Worker: NINFA Location: [address] Order Provider: PHOEBE ADKINS BMI: 26.31 BP: 97/65 Ref Provider: PHOEBE ADKINS - PROCEDURES: Echocardiographic Report: Transthoracic Echocardiogram with complete 2D, M-Mode, Spectral and Color Flow Doppler examination. INDICATIONS: Edema and Syncope. MEASUREMENTS: 2D/MM Value Range Doppler Value Range IVSd 2D 0.76 cm [ 0.60 - 1.00 ] AV Peak Jabier 1 m/s [ 1 - 2 ] LVIDd 2D 4.60 cm [ 4.20 - 5.80 ] AV Peak PG 7 mmHg LVIDs 2D 2.99 cm [ 2.50 - 4.00 ] AV Mean PG 3 mmHg LVPWd 2D 0.70 cm [ 0.60 - 1.00 ] AV VTI 22.9 cm Estimated EF 55-60 % MICHAEL VTI 2.5 cm2 LA Dimension 2D 3.45 cm [ 3.00 - 4.00 ] LVOT Peak Jabier 1.09 m/s [ 0.70 - 1.10 ] AoR Diam 2D 2.89 cm [ 3.10 - 3.70 ] LVOT Diam 2.0 cm AoR Diam 2D Index 1.49 LVOT Peak PG 5 mmHg TAPSE 3.28 cm [ 1.71 - 5.00 ] LVOT VTI 22.9 cm MV Peak PG 6 mmHg MV Mean PG 2 mmHg MV E Peak Jabier 1.2 m/s [ 0.6 - 1.3 ] MV A Peak Jabier 0.5 m/s [ 1.0 - 1.2 ] MV PHT 63.0 ms [ 20.0 - 100.0 ] MV Decel Time 219.0 ms [ 104.0 - 258.0 ] MVA PHT 3.5 ms MV E/A Ratio 2.4 PV Peak Jabier 1.0 m/s [ 0.4 - 0.8 ] PV Peak PG 4 mmHg Lat E` Jabier 0.15 m/s [ 0.10 - 0.15 ] Sept E' Jabier 0.13 m/s [ 0.08 - 0.15 ] E/E` 8.00 RV S' 0.18 m/s 2D/MM Value Range Doppler Value Range - FINDINGS: BP: Blood pressure: 97/65 mmHg. Left Ventricle: Normal global and regional left ventricular systolic function. Normal left ventricular diastolic function. Ejection Fraction is estimated at 55-60 %. Normal left ventricular cavity size. LV wall thickness is within normal limits. GLPS is normal. Right Ventricle: Normal right ventricular systolic function. Normal right ventricular size. Left Atrium: There is mild enlargement of the left atrium. Right Atrium: The right atrium is normal in size. Atrial Septum: Normal appearing atrial septum. Mitral Valve: Normal appearance of the mitral valve leaflets. Mitral stenosis is absent. Trace mitral valve regurgitation. Aortic Valve: Aortic valve appears tricuspid in configuration. There is no aortic stenosis. Trace aortic valve regurgitation. Tricuspid Valve: Normal appearance of the tricuspid leaflets. Mild tricuspid regurgitation. TR envelope inadequate to estimate RVSP. Pulmonic Valve: Grossly normal appearing pulmonic valve. There is no pulmonic stenosis. Trace pulmonic regurgitation. Pericardium: Normal appearing pericardial thickness. No significant pericardial effusion. Aortic Root and Aorta: Normal caliber aortic root. Grossly normal ascending aorta. Aortic Arch: Grossly normal aortic arch. IVC: Dilated inferior vena cava with poor inspiratory collapse consistent with elevated right atrial pressure. CONCLUSIONS: 1. Normal global and regional left ventricular systolic function. Normal left ventricular diastolic function. Ejection Fraction is estimated at 55-60 %. Normal left ventricular cavity size. LV wall thickness is within normal limits. GLPS is normal. 2. Normal right ventricular systolic function. Normal right ventricular size. 3. There is mild enlargement of the left atrium. 4. The right atrium is normal in size. 5. Normal appearing atrial septum. 6. Normal appearance of the mitral valve leaflets. Mitral stenosis is absent. Trace mitral valve regurgitation. 7. Aortic valve appears tricuspid in configuration. There is no aortic stenosis. Trace aortic valve regurgitation. 8. Normal appearance of the tricuspid leaflets. Mild tricuspid regurgitation. TR envelope inadequate to estimate RVSP. 9. Grossly normal appearing pulmonic valve. There is no pulmonic stenosis. Trace pulmonic regurgitation. 10. Normal appearing pericardial thickness. No significant pericardial effusion. 11. Dilated inferior vena cava with poor inspiratory collapse consistent with elevated right atrial pressure. 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 INDICATIONS: Edema and Syncope. MEASUREMENTS: 2D/MM Value Range Doppler ValueRange IVSd 2D 0.76 cm [ 0.60 - 1.00 ] AV Peak Jabier 1 m/s[ 1 - 2 ] LVIDd 2D 4.60 cm [ 4.20 - 5.80 ] AV Peak PG 7mmHg LVIDs 2D 2.99 cm [ 2.50 - 4.00 ] AV Mean PG 3mmHg LVPWd 2D 0.70 cm [ 0.60 - 1.00 ] AV VTI 22.9cm Estimated EF 55-60 % MICHAEL VTI 2.5cm2 LA Dimension 2D 3.45 cm [ 3.00 - 4.00 ] LVOT Peak Jabier 1.09m/s [ 0.70 - 1.10 ] AoR Diam 2D 2.89 cm [ 3.10 - 3.70 ] LVOT Diam 2.0cm AoR Diam 2D Index 1.49 LVOT Peak PG 5mmHg TAPSE 3.28 cm [ 1.71 - 5.00 ] LVOT VTI 22.9cm MV Peak PG 6 mmHg MV Mean PG 2 mmHg MV E Peak Jabier 1.2 m/s [ 0.6 - 1.3 ] MV A Peak Jabier 0.5 m/s [ 1.0 - 1.2 ] MV PHT 63.0 ms [ 20.0 - 100.0 ] MV Decel Time 219.0 ms [ 104.0 - 258.0 ] MVA PHT 3.5 ms MV E/A Ratio 2.4 PV Peak Jabier 1.0 m/s [ 0.4 - 0.8 ] PV Peak PG 4 mmHg Lat E` Jabier 0.15 m/s [ 0.10 - 0.15 ] Sept E' Jabier 0.13 m/s [ 0.08 - 0.15 ] E/E` 8.00 RV S' 0.18 m/s 2D/MM Value Range Doppler ValueRange - FINDINGS: BP: Blood pressure: 97/65 mmHg. Left Ventricle: Normal global and regional left ventricular systolicfunction. Normal left ventricular diastolic function. Ejection Fraction is estimated at55-60 %. Normal left ventricular cavity size. LV wall thickness is within normal limits.GLPS is normal. Right Ventricle: Normal right ventricular systolic function. Normal rightventricular size. Left Atrium: There is mild enlargement of the left atrium. Right Atrium: The right atrium is normal in size. Atrial Septum: Normal appearing atrial septum. Mitral Valve: Normal appearance of the mitral valve leaflets. Mitralstenosis is absent. Trace mitral valve regurgitation. Aortic Valve: Aortic valve appears tricuspid in configuration. There is noaortic stenosis. Trace aortic valve regurgitation. Tricuspid Valve: Normal appearance of the tricuspid leaflets. Mildtricuspid regurgitation. TR envelope inadequate to estimate RVSP. Pulmonic Valve: Grossly normal appearing pulmonic valve. There is nopulmonic stenosis. Trace pulmonic regurgitation. Pericardium: Normal appearing pericardial thickness. No significantpericardial effusion. Aortic Root and Aorta: Normal caliber aortic root. Grossly normalascending aorta. Aortic Arch: Grossly normal aortic arch. IVC: Dilated inferior vena cava with poor inspiratory collapse consistentwith elevated right atrial pressure. CONCLUSIONS: 1. Normal global and regional left ventricular systolic function. Normalleft ventricular diastolic function. Ejection Fraction is estimated at 55-60 %. Normal leftventricular cavity size. LV wall thickness is within normal limits. GLPS is normal. 2. Normal right ventricular systolic function. Normal right ventricularsize. 3. There is mild enlargement of the left atrium. 4. The right atrium is normal in size. 5. Normal appearing atrial septum. 6. Normal appearance of the mitral valve leaflets. Mitral stenosis isabsent. Trace mitral valve regurgitation. 7. Aortic valve appears tricuspid in configuration. There is no aorticstenosis. Trace aortic valve regurgitation. 8. Normal appearance of the tricuspid leaflets. Mild tricuspidregurgitation. TR envelope inadequate to estimate RVSP. 9. Grossly normal appearing pulmonic valve. There is no pulmonic stenosis.Trace pulmonic regurgitation. 10. Normal appearing pericardial thickness. No significant pericardialeffusion. 11. Dilated inferior vena cava with poor inspiratory collapse consistentwith elevated right atrial pressure. Electronically Signed By: Jerel Ramirez MD PhD 08/14/2024 11:48:00 AM [employer]ANDER Phoebe Adkins MD CV ECHO PROCEDURES Final Result * eGFR (08/13/2024 5:30 AM [employer] SANDER) eGFR >90 >=60 mL/min/1. 73 m2 Comment: Interpretive Data Reference Interval Normal >/= 90 mL/min/1.73m2 Mildly decreased* 60 - 89 mL/min/1.73m2 Mildly to moderately decreased 45 - 59 mL/min/1.73m2 Moderately to severely decreased 30 - 44 mL/min/1.73m2 Severely decreased 15 - 29 mL/min/1.73m2 Kidney Failure < 15 mL/min/1.73m2 *Relative to young adult level Estimated glomerular filtration rate is determined by the 2020 CKD-EPI equation recommended by the National Kidney Foundation (A Unifying Approach to GFR Estimation: Recommendations of the NKF-ASK Task Force on Reassessing the Inclusion of Race in Diagnosing Kidney Disease, JASN 202). The CKD-EPI equation should not be used for patients with unstable renal function and has not been validated in children and those over 70. Current interpretive data was last reviewed 2021. Blood 08/13/2024 5:30 AM [employer] BEL[employer] SANDER 08/13/2024 6:25 AM [employer]ANDER Phoebe Adkins MD LAB BLOOD ORDERABLES Final Resul t Performing Organization Address [facility] Co de Phone Number [facility] [address] [place] [address] * (ABNORMAL) CBC without differential (08/13/2024 5:30 AM GL[employer] SANDER) WBC 5.7 3.8 - 9.9 K/cumm Hgb 11.9(L) 13.0 - 17.5 g/dL [facility] Hct 36.4(L) 38.9 - 50.3 % [facility] Plt 186 150 - 400 K/cumm [facility] MPV 10.6 9.1 - 12.3 fL [facility] RBC 4.01(L) 4.30 - 5.80 M/cumm [facility] MCV 90.8 81.3 - 96.4 fL [facility] MCH 29.7 27.1 - 33.3 pg [facility] MCHC 32.7 32.3 - 35.7 g/dL [facility] RDW CV 13.0 11.1 - 14.9 % [facility] RDW SD 43.0 35.7 - 48.1 fL [facility] NRBC abs 0.00 0.00 - 0.01 K/cumm [facility] Blood 08/13/2024 5:30 AM [employer] SANDER 08/13/2024 6:25 AM [employer] SANDER Phoebe Adkins MD LAB BLOOD ORDERABLES Final Resul t Performing Organization Address City/[facility]/ZIP Co de Phone Number [facility] [address] [place] [address] * Phosphorus (08/13/2024 5:30 AM GLASS BEL[employer] SANDER) Phosphorus, pl 2.9 2.3 - 4.5 mg/dL Blood 08/13/2024 5:30 AM [employer] SANDER 08/13/2024 6:25 AM [employer] SANDER Phoebe Adkins MD LAB BLOOD ORDERABLES Final Resul t Performing Organization Address [facility] Co de Phone Number [facility] [address] [facility] [place] [address] * Magnesium (08/13/2024 5:30 AM [employer] SANDER) Magnesium 1.9 1.4 - 2.5 mg/dL Blood 08/13/2024 5:30 AM [employer] SANDER 08/13/2024 6:25 AM [employer] SANDER Phoebe Adkins MD LAB BLOOD ORDERABLES Final Resul t Performing Organization Address [facility] Co de Phone Number [facility] [address] [facility] [place] [place] [address] * Ferritin (08/13/2024 5:30 AM GL[employer] SANDER) Ferritin 39 30 - 400 ng/mL Blood 08/13/2024 5:30 AM [employer] SANDER 08/13/2024 6:24 AM [employer]ASS BEL[employer] SANDER us Phoebe Adkins MD LAB BLOOD ORDERABLES Final Resul t Performing Organization Address [facility] de Phone Number [facility] [address] [facility] [place] [address] * (ABNORMAL) Hepatic function panel (08/13/2024 5:30 AM GLASS [employer] SANDER) Bilirubin, total 0.4 0.1 - 1.2 mg/dL Bilirubin, direct <0.2 0.1 - 0.3 mg/dL [facility] Protein, pl 5.9(L) 6.5 - 8.5 g/dL [facility] Albumin 3.5 3.5 - 5.0 g/dL [facility] Alk phos 71 40 - 130 Units/L [facility] ALT 200(H) 7 - 55 Units/L [facility] AST 101(H) 10 - 50 Units/L [facility] Blood 08/13/2024 5:30 AM [employer] SANDER 08/13/2024 6:25 AM [employer] SANDER Russ Adkins MD LAB BLOOD ORDERABLES Final Resul t Performing Organization Address [facility] Co de Phone Number [facility] [address] Department [place] [address] * (ABNORMAL) Basic metabolic panel (08/13/2024 5:30 AM GLASS BELT SANDER) Pathologist [facility] Sodium 140 135 - 145 mmol/L Potassium, pl 4.1 3.3 - 4.9 mmol/L [facility] Chloride 106 97 - 110 mmol/L [facility] CO2 24 22 - 32 mmol/L [facility] Anion gap 10 2 - 15 mmol/L [facility] BUN 23 6 - 25 mg/dL [facility] Creatinine 0.82 0.80 - 1.30 mg/dL [facility] Glucose 87 70 - 199 mg/dL [facility] Comment: Interpretive Data Fasting glucose >/= 126 mg/dl is diagnostic for diabetes. Fasting is defined as no caloric intake for at least 8 hours. Fasting glucose between 100 mg/dl to 125 mg/dl is diagnostic of prediabetes. In a patient with classic symptoms of hyperglycemia or hyperglycemic crisis, a random glucose >/= 200 mg/dl is diagnostic for diabetes. In the absence of unequivocal hyperglycemia, results should be confirmed by repeat testing. The classification and Diagnosis of Diabetes Diabetes Care 202; 46: S19-S40. Current interpretive data was last revised 2022. Calcium 8.1(L) 8.5 - 10.3 mg/dL [facility] Blood 08/13/2024 5:30 AM GLASS BELT SANDER 08/13/2024 6:25 AM GL[employer] BELT SANDER Phoebe Adkins MD LAB BLOOD ORDERABLES Final Resul t Performing Organization Address City/[facility] Co de Phone Number [facility] [address] Department [place] [address] * Drugs of Abuse Screen, Urine with Reflex Confirmation (08/13/2024 12:15 AM GLASS BELT SANDER) Pathologist [facility] Amphetamine, ur Not Detected CutOff 500ng/mL Comment: Interpretive Data - Amphetamines: Samples containing greater than 500 ng/mL d-methamphetamine or other cross-reacting amphetamine compounds are reported as positive. Amphetamine immunoassays are subject to significant false positive rates due to cross-reactivity of non-amphetamine drugs. Confirmatory testing required for definitive results. Current Interpretive Data was last reviewed 2023. Barbiturates, ur Not Detected CutOff 200ng/mL [facility] Comment: Interpretive Data - Barbiturates: Samples containing greater than 200 ng/mL secobarbital or other cross-reacting barbiturate compounds are reported as positive. False positive and false negative results are possible. Confirmatory testing required for definitive results. Current Interpretive Data was last reviewed 2023. Benzodiazepines, ur Not Detected CutOff 100ng/mL [facility] [facility] Comment: Interpretive Data - Benzodiazepines: Samples containing greater than 100 ng/mL nordiazepam or other cross-reacting compounds are reported as positive. False positive and false negative results are possible. Confirmatory testing required for definitive results. Current Interpretive Data was last reviewed 2023. Cannabinoids, ur Not Detected CutOff 50 ng/mL [facility] Comment: Interpretive Data - Cannabinoids: Samples containing greater than 50 ng/mL delta-9 THC -COOH or other cross- reacting compounds are reported as positive. False positive and false negative results are possible. Confirmatory testing required for definitive results. Current Interpretive Data was last reviewed 2023. Cocaine, ur Not Detected CutOff 150ng/mL [facility] Comment: Interpretive Data - Cocaine: Samples containing greater than 150 ng/mL benzoylecgonine or other cross- reacting compounds are reported as positive. False positive and false negative results are possible. Confirmatory testing required for definitive results. Current Interpretive Data was last reviewed 2023. Fentanyl, Ur Not Detected CutOff 5 ng/mL [facility] Comment: Interpretive Data - Fentanyl: Samples containing greater than 5 ng/mL norfentanyl, fentanyl, or other cross-reacting fentanyl compounds are reported as positive. False positive and false negative results are possible. Confirmatory testing required for definitive results. Current Interpretive Data was last reviewed 2023. Methadone, ur Not Detected CutOff 300ng/mL [facility] Comment: Interpretive Data - Methadone: Samples containing greater than 300 ng/mL d,l-methadone or other cross-reacting compounds are reported as positive. False positive and false negative results are possible. Confirmatory testing required for definitive results. Current Interpretive Data was last reviewed 2023. Opiates, ur Not Detected CutOff 300ng/mL [facility] Comment: Interpretive Data - Opiates: Samples containing greater than 300 ng/mL morphine or other cross-reacting compounds are reported as positive. False positive and false negative results are possible. Confirmatory testing required for definitive results. Current Interpretive Data was last reviewed 2023. Oxycodone, ur Not Detected CutOff 100ng/mL [facility] Comment: Interpretive Data - Oxycodone: Samples containing greater than 100 ng/mL oxycodone or other cross-reacting compounds are reported as positive. False positive and false negative results are possible. Confirmatory testing required for definitive results. Current Interpretive Data was last reviewed 2023. Phencyclidine, ur Not Detected CutOff 25 ng/mL [facility] Comment: Interpretive Data - Phencyclidine: Samples containing greater than 25 ng/mL phencyclidine or other cross-reacting compounds are reported as positive. False positive and false negative results are possible. Confirmatory testing required for definitive results. Current Interpretive Data was last reviewed 2023. Urine Creatinine 90 mg/dL [facility] Comment: Interpretive Data Urine Creatinine: < 10 mg/dL is extremely dilute = or > 10 but < 20 mg/dL is dilute = or > 20 mg/dL is normal Current Interpretive Data was last revised on 2017. Urine 08/13/2024 12:1 5 AM [facility] 08/13/2024 12:26 AM [facility] Narrative [facility] - 08/13/2024 12:54 AM [facility] Drug of Abuse screening is performed by immunoassay for medical purposes only. This is not to be used for Pain Management purposes. If Detected, confirmation testing will be performed for Amphetamines, Cocaine, Fentanyl, Methadone, Opiates, Oxycodone or Phencyclidine. us Batsheva Portillo MD LAB URINE ORDERABLES Final Result [facility] [address] [place] [address] * (ABNORMAL) Urinalysis reflex to microscopic and culture Urine (08/13/2024 12:15 AM [facility] [facility]) Color, ur Yellow Yellow Clarity, ur Clear Clear [facility] Specific gravity, ur >1.050(H) 1.003 - 1.030 [facility] pH, urine 6.5 [facility] Comment: Interpretive Data U rine pH is affected by diet, medications, systemic acid-base disturbances, and renal tubular function. pH may affect urinary stone formation. For example, urine pH below 6.0 may help reduce the tendency for calcium phosphate stones and pH greater than 6.0 may reduce the tendency for uric acid stone formation. Source: [facility] Current Interpretive Data was last revised on 2017 Protein, ur ql Negative Negative [facility] Glucose, ur ql Negative Negative [facility] Ketones, ur Negative Negative [facility] Bilirubin, ur Negative Negative [facility] Blood, ur Negative Negative [facility] Urobilinogen, ur <2.0 <2.0 mg/dL [facility] Nitrite, ur Negative Negative [facility] Leukocyte esterase, ur Negative Negative [facility] UA reflex comment Reflex conditions for microscopic UA and culture not met. [facility] Urine 08/13/2024 12:1 5 AM [facility] 08/13/2024 12:15 AM [facility] [facility] us Batsheva Portillo MD LAB MICROBIOLOGY - GENERAL ORDERABLES Final Result [facility] [address] [place] [address] * CT Chest PE (CTA) W Contrast (08/12/2024 11:48 PM [facility] [facility]) Anatomical Region Laterality Modality Body N/A Computed Tomogra phy 08/12/2024 11:4 3 PM [facility] [facility] Impressions 08/13/2024 9:24 AM [facility] [facility] No pulmonary embolism. Electronically signed by: Tari Gavin M.D. Narrative 08/13/2024 9:24 AM [facility] [facility] EXAMINATION: CT CHEST PE (CTA) W CONTRAST HISTORY: Shortness of breath and syncope TECHNIQUE: Computed tomographic images were acquired using a chest angiographic protocol optimized for pulmonary embolism. Contrast enhanced transaxial images were obtained following the intravenous administration of 72 ml of nonionic contrast. Multiplanar reformatted images and three-dimensional images were obtained on the 3-D workstation and sent to the PACS archival system. COMPARISON: None FINDINGS: There is normal supraclavicular, axillary, mediastinal, or hilar lymphadenopathy. Heart is normal in size. No pericardial effusion. No pulmonary embolism. Lungs are clear. No consolidation. No pleural effusion or pneumothorax. Limited evaluation of upper abdomen is noncontributory. No suspicious osseous lesions are seen. Procedure Note Tari Gavin MD - 08/13/2024 EXAMINATION: CT CHEST PE (CTA) W CONTRAST HISTORY: Shortness of breath and syncope TECHNIQUE: Computed tomographic images were acquired using a chest angiographic protocol optimized for pulmonary embolism. Contrast enhanced transaxial images were obtained following the intravenous administration of 72 ml of nonionic contrast. Multiplanar reformatted images and three-dimensional images were obtained on the 3-D workstation and sent to the PACS archival system. COMPARISON: None FINDINGS: There is normal supraclavicular, axillary, mediastinal, or hilar lymphadenopathy. Heart is normal in size. No pericardial effusion. No pulmonary embolism. Lungs are clear. No consolidation. No pleural effusion or pneumothorax. Limited evaluation of upper abdomen is noncontributory. No suspicious osseous lesions are seen. IMPRESSION: No pulmonary embolism. Electronically signed by: Tari Gavin M.D. us Batsheva Portillo MD IMG CT PROCEDURES Final Res ult * US Vein Duplex Lower Extremity Bilateral Complete (08/12/2024 11:46 PM [facility] [facility]) Anatomical Region Laterality Modality Vascular Bilateral Ultrasound 08/13/2024 12:0 9 PM [facility] [facility] Impressions 08/13/2024 12:09 PM [facility] [facility] 1. No evidence of DVT in the lower extremities bilaterally. 2. Pulsatile venous flow bilaterally. This may suggest increased intravascular volume or right-sided valvular heart disease. Clinical correlation suggested. 3. Prominent lymph nodes in both groins. Electronically signed by: Lv Smart M.D. Narrative 08/13/2024 12:09 PM [facility] [facility] Lower Extremity Vein Duplex Bilateral DATE: 08/12/2024 9:45 PM EXAM: Venous duplex imaging of bilateral lower extremities. INDICATION: Edema and elevated d-dimer. COMPARISON: None available Bilateral common femoral vein, femoral vein, popliteal vein, peroneal veins and posterior tibial veins were all assessed for compressibility and patency. FINDINGS: Right leg: The image quality is good. The veins are compressible throughout. There is pulsatile venous flow that augments normally. There is no reflux. There are prominent lymph nodes in the right groin. There is no cyst formation. Duplex images demonstrate no evidence of filling defects in the major deep veins of the right lower extremity. Left leg: The image quality is good. The veins are compressible throughout. There is pulsatile venous flow that augments normally. There is no reflux. There are prominent lymph nodes in the left groin. There is no cyst formation. Duplex images demonstrate no evidence of filling defects in the major deep veins of the left lower extremity. Procedure Note Lv Smart MD - 08/13/2024 Lower Extremity Vein Duplex Bilateral DATE: 08/12/2024 9:45 PM EXAM: Venous duplex imaging of bilateral lower extremities. INDICATION: Edema and elevated d-dimer. COMPARISON: None available Bilateral common femoral vein, femoral vein, popliteal vein, peroneal veins and posterior tibial veins were all assessed for compressibility and patency. FINDINGS: Right leg: The image quality is good. The veins are compressible throughout. There is pulsatile venous flow that augments normally. There is no reflux. There are prominent lymph nodes in the right groin. There is no cyst formation. Duplex images demonstrate no evidence of filling defects in the major deep veins of the right lower extremity. Left leg: The image quality is good. The veins are compressible throughout. There is pulsatile venous flow that augments normally. There is no reflux. There are prominent lymph nodes in the left groin. There is no cyst formation. Duplex images demonstrate no evidence of filling defects in the major deep veins of the left lower extremity. IMPRESSION: 1. No evidence of DVT in the lower extremities bilaterally. 2. Pulsatile venous flow bilaterally. This may suggest increased intravascular volume or right-sided valvular heart disease. Clinical correlation suggested. 3. Prominent lymph nodes in both groins. Electronically signed by: Lv Smart M.D. us Batsheva Portillo MD IMG US PROCEDURES Final Res ult * US RUQ (08/12/2024 11:38 PM [facility] [facility]) Anatomical Region Laterality Modality Abdomen N/A Ultrasound 08/12/2024 10:4 5 PM [facility] [facility] Impressions 08/13/2024 11:42 AM [facility] [facility] 1. Trace perihepatic ascites. 2. Pulsatile portal venous flow and dilated inferior vena cava, which may represent elevated right heart pressures and/or tricuspid regurgitation. For the purposes of quality audit representative, this study was initially interpreted by teleradiology. There is no significant discrepancy. Electronically signed by: Saeid Baker MD, PHD Narrative 08/13/2024 11:42 AM [facility] EXAMINATION: LIMITED ABDOMINAL SONOGRAM HISTORY: Elevated liver function tests COMPARISON: CT 09/13/2019 FINDINGS: Liver: The liver is normal in size. The echotexture is normal. The echogenicity is normal. There is no surface nodularity. No focal solid lesions are visualized. Pulsatile antegrade portal venous flow. Trace perihepatic fluid. The inferior vena cava is dilated to 3 cm. Gallbladder: The gallbladder is surgically absent. Bile Duct: There is no intrahepatic bile duct dilatation. The diameter of the common duct is 1 mm in the proximal segment and 2 mm in the mid segment and 5 mm in the distal segment. Right Kidney: There is no hydronephrosis in the visualized portions of the right kidney. Pancreas: The visualized portions of the pancreas demonstrate no focal lesions. Procedure Note Saeid Baker MD PhD - 08/13/2024 EXAMINATION: LIMITED ABDOMINAL SONOGRAM HISTORY: Elevated liver function tests COMPARISON: CT 09/13/2019 FINDINGS: Liver: The liver is normal in size. The echotexture is normal. The echogenicity is normal. There is no surface nodularity. No focal solid lesions are visualized. Pulsatile antegrade portal venous flow. Trace perihepatic fluid. The inferior vena cava is dilated to 3 cm. Gallbladder: The gallbladder is surgically absent. Bile Duct: There is no intrahepatic bile duct dilatation. The diameter of the common duct is 1 mm in the proximal segment and 2 mm in the mid segment and 5 mm in the distal segment. Right Kidney: There is no hydronephrosis in the visualized portions of the right kidney. Pancreas: The visualized portions of the pancreas demonstrate no focal lesions. IMPRESSION: 1. Trace perihepatic ascites. 2. Pulsatile portal venous flow and dilated inferior vena cava, which may represent elevated right heart pressures and/or tricuspid regurgitation. For the purposes of quality audit representative, this study was initially interpreted by teleradiology. There is no significant discrepancy. Electronically signed by: Saeid Baker MD, PHD us Batsheva Portillo MD IMG US PROCEDURES Final Res ult * D-Dimer - Add on lab test (08/12/2024 10:29 PM [facility] [facility]) Acceptable Yes Blood 08/12/2024 10:2 9 PM [facility] 08/12/2024 10:29 PM [facility] Narrative [facility] - 08/12/2024 10:29 PM [facility] [facility] Name of Test->D-Dimer us Batsheva Portillo MD LAB BLOOD ORDERABLES Final Result [facility] [address] Department [place] [address] * CT Head and Cervical Spine WO Contrast (08/12/2024 10:20 PM [facility] [facility]) Anatomical Region Laterality Modality Head and Neck N/A Computed Tomogra phy 08/12/2024 10:1 3 PM [facility] [facility] Impressions 08/13/2024 7:[address] HEAD: No acute intracranial abnormality or calvarial fracture. CT CERVICAL SPINE: 1. No acute osseous abnormality. 2. Multilevel cervical spondylosis; most pronounced at C5-C6 and C6-C7. For the purposes of quality audit representative, this study was initially interpreted by teleradiology. There is no significant discrepancy. Electronically signed by: Zaheer Navas M.D. Narrative 08/13/2024 7:02 AM [facility] [facility] EXAMINATION: 1. CT head without contrast 2. CT of the cervical spine without contrast HISTORY: Fall. TECHNIQUE: CT of the head was performed with images acquired from skull base to vertex without intravenous contrast. CT of the cervical spine was performed according to the standard protocol without intravenous contrast. COMPARISON: CT head dated 08/08/2024. FINDINGS: HEAD: There is no acute intracranial hemorrhage. Ventricles are of normal size and morphology. No mass effect or midline shift is present. The felix-white matter differentiation is normal. The basal cisterns are patent. The sellar and suprasellar structures are normal. The posterior fossa is normal. The visualized portions of the orbits are normal. The visualized portions of the mastoids are normal. There is increased cerumen in the external auditory canals bilaterally. The visualized portions of the paranasal sinuses are normal. The calvarium is intact. CERVICAL SPINE: There is straightening of normal cervical lordosis that may be due to patient positioning. There is minimal anterolisthesis at C2-C3. There is no acute fracture. Vertebral bodies are normal in height without compression fractures. There is mild loss of disc space height at multiple levels. There are anterior disc osteophytes at C4-C5, C5-C6 and C7-T1. The prevertebral soft tissues are normal. There is mild biapical pleural thickening. There is multilevel cervical spondylosis. For example, there is a small disc bulge at C5-C6 with a right paracentral component along with mild central and right greater than left neural foraminal stenosis. There is osteophytic ridging and bilateral facet degenerative change at C6-C7. There is mild central stenosis and right worse than left neural foraminal narrowing. Procedure Note Zaheer Navas MD - 08/13/2024 EXAMINATION: 1. CT head without contrast 2. CT of the cervical spine without contrast HISTORY: Fall. TECHNIQUE: CT of the head was performed with images acquired from skull base to vertex without intravenous contrast. CT of the cervical spine was performed according to the standard protocol without intravenous contrast. COMPARISON: CT head dated 08/08/2024. FINDINGS: HEAD: There is no acute intracranial hemorrhage. Ventricles are of normal size and morphology. No mass effect or midline shift is present. The felix-white matter differentiation is normal. The basal cisterns are patent. The sellar and suprasellar structures are normal. The posterior fossa is normal. The visualized portions of the orbits are normal. The visualized portions of the mastoids are normal. There is increased cerumen in the external auditory canals bilaterally. The visualized portions of the paranasal sinuses are normal. The calvarium is intact. CERVICAL SPINE: There is straightening of normal cervical lordosis that may be due to patient positioning. There is minimal anterolisthesis at C2-C3. There is no acute fracture. Vertebral bodies are normal in height without compression fractures. There is mild loss of disc space height at multiple levels. There are anterior disc osteophytes at C4-C5, C5-C6 and C7-T1. The prevertebral soft tissues are normal. There is mild biapical pleural thickening. There is multilevel cervical spondylosis. For example, there is a small disc bulge at C5-C6 with a right paracentral component along with mild central and right greater than left neural foraminal stenosis. There is osteophytic ridging and bilateral facet degenerative change at C6-C7. There is mild central stenosis and right worse than left neural foraminal narrowing. IMPRESSION: CT HEAD: No acute intracranial abnormality or calvarial fracture. CT CERVICAL SPINE: 1. No acute osseous abnormality. 2. Multilevel cervical spondylosis; most pronounced at C5-C6 and C6-C7. For the purposes of quality audit representative, this study was initially interpreted by teleradiology. There is no significant discrepancy. Electronically signed by: Zaheer Navas M.D. Batsheva Portillo MD IM CT PROCEDURES Final Res ult * Protime-INR (08/12/2024 10:05 PM [facility] [facility]) PT 12.8 9.7 - 13.0 sec INR 1.18 0.90 - 1.20 [facility] Comment: Interpretive data Oral anticoagulant therapeutic ranges: Venous thromboembolism prophylaxis or treatment: 2.0-3.0 CARDIOLOGY Standard range: 2.0-3.0 High-intensity range: 2.5-3.5 Refer to indication-specific guidelines for appropriate target ranges for prosthetic heart valve replacement. Current interpretive data was last revised on 2019. Blood 08/12/2024 10:0 5 PM [facility] [facility] 08/12/2024 10:29 PM [facility] [facility] Batsheva Portillo MD LAB BLOOD ORDERABLES Final Result Performing Organization Address [facility] Co de Phone Number [facility] [address] Department [place] [address] * (ABNORMAL) D-dimer, quantitative (08/12/2024 10:05 PM [facility] [facility]) D-Dimer 1,783(H) <=499 ng/mL FEU Comment: Interpretive data FDA approved the D-dimer, in conjunction with a low or moderate pretest probability score, to exclude venous thromboembolic events (VTE) (PE and DVT) in outpatients when the D-dimer result is < 500 ng/ml FEU. Evidence supports using an age-adjusted D-dimer cut-off for outpatients older than 50 (age x 10) to improve specificity without sacrificing sensitivity. Example: age 68, VTE cut-off 680 ng/ml FEU. References; Schouten HT et al. Brit Med J. 2013;346:f2492. Carlitos et al. Annals Int Med. 2015;163:701-11. Current interpretive data was last revised on 2019. Blood 08/12/2024 10:0 5 PM [facility] [facility] 08/12/2024 10:05 PM [facility] [facility] Batsheva Portillo MD LAB BLOOD ORDERABLES Final Result Performing Organization Address [facility] Co de Phone Number [facility] [address] Department [place] [address] * Folate - Add on lab test (08/12/2024 9:53 PM [facility] [facility]) Acceptable Yes Blood 08/12/2024 9:53 PM [facility] [employer] [facility] 08/12/2024 9:53 PM [facility] [employer] Narrative [facility] - 08/12/2024 9:54 PM [facility] [employer] [facility] Name of Test->Folate us Batsheva Portillo MD LAB BLOOD ORDERABLES Final Result Performing Organization Address [facility] Co de Phone Number [facility] [address] [facility] [place] [address] * Vitamin B12 - Add on lab test (08/12/2024 9:53 PM [facility] [employer]) Acceptable Yes Blood 08/12/2024 9:53 PM [facility] [employer] 08/12/2024 9:54 PM [facility] [employer] Narrative [facility] - 08/12/2024 9:54 PM [facility] [employer] [facility] Name of Test->Vitamin B12 us Batsheva Portillo MD LAB BLOOD ORDERABLES Final Result Performing Organization Address [facility] Co de Phone Number [facility] [address] [facility] [place] [address] * Iron profile - Add on lab test (08/12/2024 9:53 PM [facility] [employer]) Acceptable Yes Blood 08/12/2024 9:53 PM [facility] [employer] 08/12/2024 9:54 PM [facility] [employer] [facility] Narrative [facility] - 08/12/2024 9:54 PM [facility] [employer] [facility] Name of Test->Iron profile us Batsheva Portillo MD LAB BLOOD ORDERABLES Final Result Performing Organization Address [facility] Co de Phone Number [facility] [address] [facility] [place] [address] * NT-Pro BNP - Add on lab test (08/12/2024 9:53 PM [facility] [employer]) Acceptable Yes Blood 08/12/2024 9:53 PM [facility] [employer] 08/12/2024 9:53 PM [facility] [employer] Narrative [facility] - 08/12/2024 9:54 PM [facility] [employer] [facility] Name of Test->NT-Pro BNP us Batsheva Portillo MD LAB BLOOD ORDERABLES Final Result Performing Organization Address [facility] Co de Phone Number [facility] [address] [facility] [place] [place] [address] * TSH reflex Free T4 - Add on lab test (08/12/2024 9:53 PM [facility] [employer]) Acceptable Yes Blood 08/12/2024 9:53 PM [facility] [employer] 08/12/2024 9:53 PM [facility] [employer] Narrative [facility] - 08/12/2024 9:54 PM [facility] [employer] Name of Test->TSH reflex Free T4 us Batsheva Portillo MD LAB BLOOD ORDERABLES Final Result Performing Organization Address [facility] Co de Phone Number [facility] [address] [facility] [place] [place] [address] * Phosphorus - Add on lab test (08/12/2024 9:53 PM [facility] [employer]) Acceptable Yes Blood 08/12/2024 9:53 PM [employer] 08/12/2024 9:53 PM [facility] [employer] Narrative [facility] - 08/12/2024 9:55 PM [facility] [employer] Name of Test->Phosphorus us Batsheva Portillo MD LAB BLOOD ORDERABLES Final Result Performing Organization Address [facility] [facility] Co de Phone Number [facility] [address] [place] [address] * Magnesium - Add on lab test (08/12/2024 9:53 PM GLASS BEL[employer] SANDER) Acceptable Yes Blood 08/12/2024 9:53 PM [facility] [employer]ER 08/12/2024 9:53 PM [facility] [facility]ER Narrative [facility] - 08/12/2024 9:55 PM [employer] [employer]ER Name of Test->Magnesium us Batsheva Portillo MD LAB BLOOD ORDERABLES Final Result Performing Organization Address [facility] Co de Phone Number [facility] [address] [place] [address] * Troponin T high-sensitivity 2-hour (08/12/2024 9:52 PM GLASS BEL[employer] SANDER) Pathologist [facility] Trop T hs 6 <=22 ng/L Comment: Interpretive Data For further hscTnT resources including the diagnostic algorithm and an aid in interpretation, copy and paste this link: https://nrl.testcatalog.org/show/hsTrop Current Interpretive Data last revised 2020. Trop T hs delta -1 ng/L [facility] Trop T hs interp Insignificant [facility] Blood 08/12/2024 9:52 PM [facility] [employer]ER 08/12/2024 10:30 PM [employer]ER Ace Gonzales MD LAB BLOOD ORDERABLES F inal Result Performing Organization Address [facility]/ZIP Co de Phone Number [facility] [address] [place] [address] * Ethanol (08/12/2024 9:52 PM GLASS BELT SANDER) [facility] Ethanol <10 <=10 mg/dL Comment: Interpretive Data Legal limit of intoxication > or = 80 mg/dL Levels > or = 400 mg/dL are potentially TOXIC. Current interpretive data was last revised on 2018. Blood 08/12/2024 9:52 PM [employer] SANDER 08/12/2024 10:29 PM [employer]ER Batsheva Portillo MD LAB BLOOD ORDERABLES Final Result Performing Organization Address City/[facility]/ZIP Co de Phone Number [facility] [address] [place] [address] * Hepatitis panel, acute Blood (08/12/2024 9:13 PM GLASS [employer] SANDER) [facility] Hep A IgM Nonreactive Nonreactive Comment: Interpretive Data: If Hep A IgM Ab is reported as Equivocal, a new sample should be drawn in two weeks for testing. Current interpretive data was last revised on 19. Hep B core IgM Nonreactive Nonreactive [facility] Comment: Interpretive Data If HepB Core IgM Ab is reported as Equivocal, a new sample should be drawn in two weeks for testing. Current interpretive data was last revised on 19. Hep C Ab Nonreactive Nonreactive [facility] Comment: Interpretive Data Nonreactive: Antibodies to HCV not detected. Does NOT exclude the possibility of recent exposure to HCV. Equivocal: Equivocal for HCV antibodies. Supplemental molecular testing will be automatically performed to determine infection status in accordance with current CDC screening recommendations. Reactive: Positive for HCV antibodies. This may represent current or past HCV infection. Supplemental molecular testing will be automatically performed to determine current infection status in accordance with current CDC screening recommendations. Interpretive data was last revised on 2019. HepBsAg Nonreactive Nonreactive [facility] Blood 08/12/2024 9:13 PM [employer]ER 08/12/2024 9:17 PM [employer]ER Batsheva Portillo MD LAB MICROBIOLOGY - GENERAL ORDERABLES Final Result Performing Organization Address [facility] Co de Phone Number [facility] [address] [place] [place] [address] * Acetaminophen level (08/12/2024 9:13 PM [employer]ANDER) Acetaminophen <5 <=5 mcg/mL Comment: Interpretive Data Significant hepatic injury may occur and treatment with n-acetyl cysteine is generally recommended if the acetaminophen level exceeds: 150 mcg/mL at 4 hours after ingestion 75 mcg/mL at 8 hours after ingestion 38 mcg/mL at 12 hours after ingestion 19 mcg/mL at 16 hours after ingestion Consult toxicology or poison control ([phone]) for unknown ingestion time. Current interpretive data was last revised 2023. Blood 08/12/2024 9:13 PM [employer]ER 08/12/2024 9:17 PM [employer]ER us Batsheva Portillo MD LAB BLOOD ORDERABLES Final Result Performing Organization Address City/[facility]/ZIP Co de Phone Number [facility] [address] [place] [address] * Troponin T high-sensitivity series (baseline, 2hr, 4hr, 6hr) (08/12/2024 8:08 PM [employer]ANDER) Trop T hs 7 <=22 ng/L Comment: Interpretive Data For further hscTnT resources including the diagnostic algorithm and an aid in interpretation, copy and paste this link: https://nrl.testcatalog.org/show/hsTrop Current Interpretive Data last revised 2020. Blood 08/12/2024 8:08 PM [employer]ER 08/12/2024 8:23 PM [employer]ER us Batsheva Portillo MD LAB BLOOD ORDERABLES Final Result [facility] [address] [place] [address] * eGFR (08/12/2024 8:08 PM GLASS BEL[employer] SANDER) Pathologist [facility] eGFR >90 >=60 mL/min/1. 73 m2 Comment: Interpretive Data Reference Interval Normal >/= 90 mL/min/1.73m2 Mildly decreased* 60 - 89 mL/min/1.73m2 Mildly to moderately decreased 45 - 59 mL/min/1.73m2 Moderately to severely decreased 30 - 44 mL/min/1.73m2 Severely decreased 15 - 29 mL/min/1.73m2 Kidney Failure < 15 mL/min/1.73m2 *Relative to young adult level Estimated glomerular filtration rate is determined by the 2020 CKD-EPI equation recommended by the National Kidney Foundation (A Unifying Approach to GFR Estimation: Recommendations of the NKF-ASK Task Force on Reassessing the Inclusion of Race in Diagnosing Kidney Disease, JASN 202). The CKD-EPI equation should not be used for patients with unstable renal function and has not been validated in children and those over 70. Current interpretive data was last reviewed 2021. Blood 08/12/2024 8:08 PM [employer]ANDER 08/12/2024 8:23 PM [employer]ER us Batsheva Portillo MD LAB BLOOD ORDERABLES Final Result [facility] [address] [place] [address] * Differential, auto (08/12/2024 8:08 PM [employer]ANDER) Neutrophil abs 3.5 1.5 - 6.5 K/cumm Imm gran abs 0.0 0.0 - 0.1 K/cumm [facility] Lymphocyte abs 2.2 0.8 - 3.3 K/cumm [facility] Monocyte abs 0.5 0.2 - 0.8 K/cumm [facility] Eosinophil abs 0.3 0.0 - 0.5 K/cumm [facility] Basophil abs 0.1 0.0 - 0.1 K/cumm [facility] Neutrophil pct 54.5 % [facility] Comment: Interpretive Data Percent cell count reference ranges are not reported, since discordance with absolute values may lead to misinterpretation of CBC data. Current Interpretive Data was last revised on 2017. Imm gran pct 0.3 % [facility] Comment: Interpretive Data Percent cell count reference ranges are not reported, since discordance with absolute values may lead to misinterpretation of CBC data. Current Interpretive Data was last revised on 2017. Lymphocyte pct 33.3 % [facility] Comment: Interpretive Data Percent cell count reference ranges are not reported, since discordance with absolute values may lead to misinterpretation of CBC data. Current Interpretive Data was last revised on 2017. Monocyte pct 6.9 % [facility] Comment: Interpretive Data Percent cell count reference ranges are not reported, since discordance with absolute values may lead to misinterpretation of CBC data. Current Interpretive Data was last revised on 2017. Eosinophil pct 4.1 % [facility] Comment: Interpretive Data Percent cell count reference ranges are not reported, since discordance with absolute values may lead to misinterpretation of CBC data. Current Interpretive Data was last revised on 2017. Basophil pct 0.9 % [facility] Comment: Interpretive Data Percent cell count reference ranges are not reported, since discordance with absolute values may lead to misinterpretation of CBC data. Current Interpretive Data was last revised on 2017. Blood 08/12/2024 8:08 PM [employer] SANDER 08/12/2024 8:23 PM [employer]ER us Batsheva Portillo MD LAB BLOOD ORDERABLES Final Result [facility] [address] [place] [address] * Pro B-type natriuretic peptide (08/12/2024 8:08 PM GL[employer] SANDER) NT-proBNP 60 <=300 pg/mL Comment: Interpretive Comments: A. Dyspnea in Acute Care Setting All Ages: < 300 pg/ml, acute heart failure unlikely. < 50 yrs: 300 - 450 pg/ml, further investigation warranted. > 450 pg/ml, acute heart failure likely. 50 - 74 yrs: 300 - 900 pg/ml, further investigation warranted. > 900 pg/ml, acute heart failure likely . > or = 75 yrs: 450 - 1800 pg/ml, further investigation warranted. > 1800 pg/ml, acute heart failure likely. B. Non-acute Setting < 75 yrs < 125 pg/ml, rules out heart failure. > or = 125 pg/ml, further investigation warranted. > or = 75 yrs < 450 pg/ml, rules out heart failure. > or = 450 pg/ml, further investigation warranted. - Knowledge of each individual patient's NT-proBNP range may be more useful than using similar cut-points for every patient. Please note that marked elevations in NT-proBNP levels may be observed in state other than Left Ventricular Congestive Failure, including: acute coronary syndromes, right heart strain/failure (including pulmonary embolism and cor pulmonale), critical illness, renal failure, as well as advanced age. - References: 1. Adi CAMP et.al. Eur Heart J. 2006:27:330-337. 2. Xiomara RW, Caryn MORAN. J. AM Emerson Cardiol: Cardiovasc Imag. 2009;2: 216- 225. Interpretive Data Last Revised Date: 2018. Blood 08/12/2024 8:08 PM [employer] SANDER 08/12/2024 8:23 PM [employer]ANDER us Batsheva Portillo MD LAB BLOOD ORDERABLES Final Result Performing Organization Address [facility] Co de Phone Number [facility] [address] [facility] [place] [address] * Thyroid Function Maries (08/12/2024 8:08 PM GLASS BEL[employer] SANDER) Pathologist [facility] TSH 1.43 0.30 - 4.20 mcIUnit/mL Blood 08/12/2024 8:08 PM [employer] SANDER 08/12/2024 8:23 PM [employer]ANDER us Batsheva Portillo MD LAB BLOOD ORDERABLES Final Result Performing Organization Address [facility] de Phone Number [facility] [address] [facility] [place] [address] * (ABNORMAL) Iron profile w/ IBC (08/12/2024 8:08 PM GLASS BEL[employer] SANDER) Pathologist [facility] Iron 46(L) 50 - 150 mcg/dL TIBC 296 250 - 400 mcg/dL [facility] Transferrin saturation 16(L) 20 - 50 % [facility] Blood 08/12/2024 8:08 PM [employer] SANDER 08/12/2024 8:23 PM [employer]ER us Batsheva Portillo MD LAB BLOOD ORDERABLES Final Result Performing Organization Address [facility] de Phone Number [facility] [address] [facility] [place], [place] [id number] * (ABNORMAL) CBC with auto differential (08/12/2024 8:08 PM GLASS [employer] SANDER) WBC 6.5 3.8 - 9.9 K/cumm Hgb 12.5(L) 13.0 - 17.5 g/dL [facility] Hct 38.3(L) 38.9 - 50.3 % [facility] Plt 207 150 - 400 K/cumm [facility] MPV 10.1 9.1 - 12.3 fL [facility] RBC 4.22(L) 4.30 - 5.80 M/cumm [facility] MCV 90.8 81.3 - 96.4 fL [facility] MCH 29.6 27.1 - 33.3 pg [facility] MCHC 32.6 32.3 - 35.7 g/dL [facility] RDW CV 13.0 11.1 - 14.9 % [facility] RDW SD 43.2 35.7 - 48.1 fL [facility] NRBC abs 0.00 0.00 - 0.01 K/cumm [facility] Blood (Blood, Venous) 08/12/2024 8:08 PM [employer]ER 08/12/2024 8:23 PM [employer]ER us Batsheva Portillo MD LAB BLOOD ORDERABLES Final Result Performing Organization Address [facility] Co de Phone Number [facility] [address] [place] [address] * Phosphorus (08/12/2024 8:08 PM GL[employer] SANDER) Phosphorus, pl 3.1 2.3 - 4.5 mg/dL Blood 08/12/2024 8:08 PM [employer]ANDER 08/12/2024 8:23 PM [employer]ER us Batsheva Portillo MD LAB BLOOD ORDERABLES Final Result Performing Organization Address City/[facility]/ZIP Co de Phone Number [facility] [address] [place] [address] * Magnesium (08/12/2024 8:08 PM GL[employer] SANDER) Magnesium 2.0 1.4 - 2.5 mg/dL Blood 08/12/2024 8:08 PM [employer]ER 08/12/2024 8:23 PM [employer]ER us Batsheva Portillo MD LAB BLOOD ORDERABLES Final Result [facility] [address] [facility] [place] [address] * Folate (08/12/2024 8:08 PM GLASS [employer] SANDER) [facility] Folic acid 7.6 >=5.0 ng/mL Blood 08/12/2024 8:08 PM [employer] SANDER 08/12/2024 8:23 PM [employer]ANDER us Batsheva Portillo MD LAB BLOOD ORDERABLES Final Result Performing Organization Address [facility] Co de Phone Number [facility] [address] [facility] [place] [address] * Vitamin B12 (08/12/2024 8:08 PM GL[employer] SANDER) [facility] Vitamin B12 860 230 - 1,250 pg/mL Blood 08/12/2024 8:08 PM [employer] SANDER 08/12/2024 8:23 PM [employer]ANDER us Batsheva Portillo MD LAB BLOOD ORDERABLES Final Result Performing Organization Address [facility] de Phone Number [facility] [address] [place] [address] * (ABNORMAL) Comprehensive metabolic panel (08/12/2024 8:08 PM GLASS [employer] SANDER) [facility] Sodium 142 135 - 145 mmol/L Potassium, pl 4.4 3.3 - 4.9 mmol/L [facility] Chloride 106 97 - 110 mmol/L [facility] CO2 27 22 - 32 mmol/L [facility] Anion gap 9 2 - 15 mmol/L [facility] BUN 29(H) 6 - 25 mg/dL [facility] Creatinine 1.02 0.80 - 1.30 mg/dL [facility] Glucose 104 70 - 199 mg/dL [facility] Comment: Interpretive Data Fasting glucose >/= 126 mg/dl is diagnostic for diabetes. Fasting is defined as no caloric intake for at least 8 hours. Fasting glucose between 100 mg/dl to 125 mg/dl is diagnostic of prediabetes. In a patient with classic symptoms of hyperglycemia or hyperglycemic crisis, a random glucose >/= 200 mg/dl is diagnostic for diabetes. In the absence of unequivocal hyperglycemia, results should be confirmed by repeat testing. The classification and Diagnosis of Diabetes Diabetes Care 2021; 46: S19-S40. Current interpretive data was last revised 2022. Calcium 8.6 8.5 - 10.3 mg/dL [facility] Bilirubin, total 0.3 0.1 - 1.2 mg/dL [facility] Protein, pl 6.1(L) 6.5 - 8.5 g/dL [facility] Albumin 3.7 3.5 - 5.0 g/dL [facility] Alk phos 83 40 - 130 Units/L [facility] ALT 230(H) 7 - 55 Units/L [facility] AST 158(H) 10 - 50 Units/L [facility] Blood 08/12/2024 8:08 PM [employer]ANDER 08/12/2024 8:23 PM [employer]ER us Batsheva Portillo MD LAB BLOOD ORDERABLES Final Result [facility] [address] [place] [address] * XR Chest PA Lateral 2 Views (08/12/2024 7:27 PM [employer]ANDER) Anatomical Region Laterality Modality Body, Chest N/A Computed Radiogr aphy 08/13/2024 7:44 AM [employer]ER Impressions 08/13/2024 7:44 AM [employer]ANDER There is subtle airspace opacity in the right lung base which may represent pneumonia in the appropriate clinical setting. Alternatively, this may represent atelectasis. No pleural effusion. No pneumothorax. Heart size is normal. Electronically signed by: Tari Gavin M.D. Narrative 08/13/2024 7:44 AM [employer]ANDER EXAMINATION: XR CHEST PA LATERAL 2 VIEWS Procedure Note Tari Gavin MD - 08/13/2024 EXAMINATION: XR CHEST PA LATERAL 2 VIEWS IMPRESSION: There is subtle airspace opacity in the right lung base which may represent pneumonia in the appropriate clinical setting. Alternatively, this may represent atelectasis. No pleural effusion. No pneumothorax. Heart size is normal. Electronically signed by: Tari Gavin M.D. us Batsheva Portillo MD IMG XR PROCEDURES Final Res ult * ECG 12 lead (08/12/2024 6:48 PM [employer]ANDER) 08/12/2024 6:48 PM [employer] [employer]ER Narrative [facility] - 08/13/2024 1:41 PM [employer]ER Vent Rate: 63 bpm RR Interval: 938 msec KS Interval: 165 msec QRS Duration: 96 msec QT Interval: 378 msec QTC Interval: 386 msec P-R-T [place]: 74 - 81 - 50 degrees IMPRESSION: SINUS RHYTHM POSSIBLE LEFT ATRIAL ENLARGEMENT [-0.1mV P WAVE IN V1/V2] BORDERLINE ECG Electronically Signed By: Jerel Ramirez MD PhD us Batsheva Portillo MD ECG ORDERABLES Final Resul t [facility] [place] [facility] * XR Chest Pa Lateral 2 Views (08/11/2024 2:02 AM [employer]ANDER) Anatomical Region Laterality Modality Body, Chest N/A Computed Radiogr aphy 08/11/2024 3:00 AM [employer]ER Impressions 08/11/2024 9:05 AM [employer]ANDER Comparison radiograph from 08/08/2024. No consolidation, pleural effusion, or pneumothorax. Cardiomediastinal silhouette within normal limits. Dictated by: Julio Rooney M.D. The radiology attending physician has personally reviewed this study, and had reviewed and/or edited this written report and agrees with it. Electronically signed by: Brice Mantilla M.D. Narrative 08/11/2024 9:05 AM [employer]ANDER EXAMINATION: 2 view chest radiograph Procedure Note Brice Mantilla MD - 08/11/2024 EXAMINATION: 2 view chest radiograph IMPRESSION: Comparison radiograph from 08/08/2024. No consolidation, pleural effusion, or pneumothorax. Cardiomediastinal silhouette within normal limits. Dictated by: Julio Rooney M.D. The radiology attending physician has personally reviewed this study, and had reviewed and/or edited this written report and agrees with it. Electronically signed by: Brice Mantilla M.D. us Abdiel Hawkins MD IMG XR PROCEDURES Final Re sult * ECG 12-LEAD (08/11/2024 1:43 AM [employer] SANDER) Narrative [facility] - 08/11/2024 1:43 AM [employer]ER Johnnie Kelly MD 08/11/2024 1:44 AM ECG 12 lead Date/Time: 08/11/2024 1:43 AM Performed by: Johnnie Kelly MD Authorized by: Abdiel Hawkins MD Rate: ECG rate: 81 ECG rate assessment: normal Rhythm: Rhythm: sinus rhythm Ectopy: Ectopy: none QRS: QRS axis: Right QRS intervals: Normal Conduction: Conduction: normal ST segments: ST segments: Normal T waves: T waves: normal Interpretation: Interpretation: normal Recommended Follow-up: Recommended follow up: further workup in the ED Procedure Note Johnnie Kelly MD - 08/11/2024 1:43 AM CST Procedure ECG 12 lead Date/Time: 08/11/2024 1:43 AM Performed by: Johnnie Kelly MD Authorized by: Abdiel Hawkins MD Rate: ECG rate: 81 ECG rate assessment: normal Rhythm: Rhythm: sinus rhythm Ectopy: Ectopy: none QRS: QRS axis: Right QRS intervals: Normal Conduction: Conduction: normal ST segments: ST segments: Normal T waves: T waves: normal Interpretation: Interpretation: normal Recommended Follow-up: Recommended follow up: further workup in the ED Johnnie Kelly MD 08/11/24 0144 us Abdiel Hawkins MD ECG ORDERABLES Final Resu lt [facility] * XR Chest PA Lateral 2 Views (08/08/2024 10:42 PM [employer]ANDER) Anatomical Region Laterality Modality Body, Chest N/A Computed Radiogr aphy 08/08/2024 11:0 3 PM [employer]ER Impressions 08/09/2024 10:05 AM [employer]ER The current study is compared with the prior radiograph dated 09/13/2019. Mild bibasilar atelectasis. No consolidation, pleural effusion, or pneumothorax. Cardiomediastinal silhouette within normal limits. Dictated by: Chet Boogie MD The radiology attending physician has personally reviewed this study, and had reviewed and/or edited this written report and agrees with it. Electronically signed by: Steve Arce M.D. Narrative 08/09/2024 10:05 AM [employer]ER EXAMINATION: 2 view chest radiograph Procedure Note Steve Arce MD - 08/09/2024 EXAMINATION: 2 view chest radiograph IMPRESSION: The current study is compared with the prior radiograph dated 09/13/2019. Mild bibasilar atelectasis. No consolidation, pleural effusion, or pneumothorax. Cardiomediastinal silhouette within normal limits. Dictated by: Chet Boogie MD The radiology attending physician has personally reviewed this study, and had reviewed and/or edited this written report and agrees with it. Electronically signed by: Steve Arce M.D. Karlo Gatica MD IMG XR PROCEDURES Final Res ult * CT Head WO Contrast (08/08/2024 10:34 PM [employer] SANDER) Anatomical Region Laterality Modality Head and Neck N/A Computed Tomogra phy 08/08/2024 10:4 4 PM [employer]ER Impressions 08/09/2024 10:54 AM [employer]ER 1. No acute intracranial process. 2. Large burden of cerumen in both external auditory canals which may be impacted. Dictated by: Juancho Marquez MD, Ph.D The radiology attending physician has personally reviewed this study, and had reviewed and/or edited this written report and agrees with it. Electronically signed by: Indio Zambrano M.D. Narrative 08/09/2024 10:54 AM [employer]ANDER EXAMINATION: CT head without contrast HISTORY: 43-year-old man diagnosed recently with COVID-19. Presenting with persistent lightheadedness. TECHNIQUE: CT of the head was performed with images acquired from skull base to vertex without intravenous contrast. COMPARISON: CT head 07/03/2018. FINDINGS: There is no acute intracranial hemorrhage. Ventricles are of normal size and morphology. No mass effect or midline shift is present. The felix-white matter differentiation is normal. The visualized portions of the orbits are normal. The visualized portions of the mastoids are normal. Mild ethmoid air cell opacification. No fractures are identified. Debris within both external auditory canals. Procedure Note Indio Zambrano MD - 08/09/2024 EXAMINATION: CT head without contrast HISTORY: 43-year-old man diagnosed recently with COVID-19. Presenting with persistent lightheadedness. TECHNIQUE: CT of the head was performed with images acquired from skull base to vertex without intravenous contrast. COMPARISON: CT head 07/03/2018. FINDINGS: There is no acute intracranial hemorrhage. Ventricles are of normal size and morphology. No mass effect or midline shift is present. The felix-white matter differentiation is normal. The visualized portions of the orbits are normal. The visualized portions of the mastoids are normal. Mild ethmoid air cell opacification. No fractures are identified. Debris within both external auditory canals. IMPRESSION: 1. No acute intracranial process. 2. Large burden of cerumen in both external auditory canals which may be impacted. Dictated by: Juancho Marquez MD, Ph.D The radiology attending physician has personally reviewed this study, and had reviewed and/or edited this written report and agrees with it. Electronically signed by: Indio Zambrnao M.D. us Karlo Gatica MD IMG CT PROCEDURES Final Res ult * ECG 12-LEAD (08/08/2024 8:56 PM GLASS BELT SANDER) Narrative [facility] - 08/08/2024 8:56 PM GL[employer] BELT SANDER Salena Cobb MD 08/08/2024 8:57 PM ECG 12 lead Date/Time: 08/08/2024 8:56 PM Performed by: Salena Cobb MD Authorized by: Cain Jeff MD Rate: ECG rate: 88 Rhythm: Rhythm: sinus rhythm Ectopy: Ectopy: none QRS: QRS axis: Normal QRS intervals: Normal Conduction: Conduction: normal ST segments: ST segments: Non-specific Elevation: V2 T waves: T waves: normal Other findings: Other findings: LVH Previous ECG: Previous ECG: Compared to current Date of previous EC12/28/2022 Interpretation: Interpretation: non-specific Recommended Follow-up: Recommended follow up: further workup in the ED Procedure Note Salena Cobb MD - 08/08/2024 8:56 PM CST Procedure ECG 12 lead Date/Time: 08/08/2024 8:56 PM Performed by: Salena Cobb MD Authorized by: Cain Jeff MD Rate: ECG rate: 88 Rhythm: Rhythm: sinus rhythm Ectopy: Ectopy: none QRS: QRS axis: Normal QRS intervals: Normal Conduction: Conduction: normal ST segments: ST segments: Non-specific Elevation: V2 T waves: T waves: normal Other findings: Other findings: LVH Previous ECG: Previous ECG: Compared to current Date of previous EC12/28/2022 Interpretation: Interpretation: non-specific Recommended Follow-up: Recommended follow up: further workup in the ED Salena Cobb MD 08/08/242056 Karlo Gatica MD ECG ORDERABLES Final Resul t [facility] * (ABNORMAL) Respiratory pathogen panel Nasopharyngeal (08/06/2024 9:59 AM GLASS BELT SANDER) Influenza A RNA Not Detected Not Detected Influenza B RNA Not Detected Not Detected [facility] RSV RNA Not Detected Not Detected [facility] COVID-19 RNA Not Detected Not Detected [facility] Coronavirus 229E RNA Not Detected Not Detected [facility] Coronavirus HKU1 RNA Not Detected Not Detected [facility] Coronavirus NL63 RNA Detected(A) Not Detected [facility] Coronavirus OC43 RNA Not Detected Not Detected [facility] Adenovirus DNA Not Detected Not Detected [facility] Metapneumovirus RNA Not Detected Not Detected [facility] Rhinovirus/Enterov irus RNA Not Detected Not Detected [facility] Parainfluenza 1 RNA Not Detected Not Detected [facility] Parainfluenza 2 RNA Not Detected Not Detected [facility] Parainfluenza 3 RNA Not Detected Not Detected [facility] Parainfluenza 4 RNA Not Detected Not Detected [facility] B. pertussis DNA Not Detected Not Detected [facility] B. parapertussis DNA Not Detected Not Detected [facility] C. pneumoniae DNA Not Detected Not Detected [facility] M. pneumoniae DNA Not Detected Not Detected [facility] Nasopharyngeal 08/06/2024 9: 59 AM [employer] BELT SANDER 08/06/2024 10:52 AM [employer] BELT SANDER Narrative [facility] - 08/06/2024 11:43 AM GLASS BELT SANDER Is the Patient experiencing symptoms consistent with COVID?->Yes Surveillance testing for transplant patient?->No Interpretive Data The [employer] FilmArray Respiratory Panel (RP2.1) assay is a multiplexed real-time PCR based nucleic acid test capable of simultaneous qualitative detection and identification of multiple respiratory viral and bacterial nucleic acids, including SARS Coronavirus 2 (the causative agent of COVID-19). The following bacteria, viruses and virus subtypes can be identified using the [employer] RP2.1 assay: Bordetella pertussis, Bordetella parapertussis, Chlamydia pneumoniae, Mycoplasma pneumoniae, Adenovirus, SARS Coronavirus 2, seasonal coronaviruses (Coronavirus HKU1, Coronavirus NL63, Coronavirus 229E, and Coronavirus OC43), Influenza A, Influenza A subtype H1, Influenza A subtype H3, Influenza A subtype 2009 H1, Influenza B, Metapneumovirus, Parainfluenza 1, Parainfluenza 2, Parainfluenza 3, Parainfluenza 4, RSV, Rhinovirus/Enterovirus. Due to the genetic similarity between human Rhinovirus and Enterovirus, the FilmArray RP2.1 assay cannot reliably differentiate them. Coronavirus OC43 may cross-react with some isolates of Coronavirus HKU1. A dual positive result may be due to cross-reactivity or may indicate a co- infection. The detection and identification of specific viral and bacterial nucleic acids from individuals exhibiting signs and symptoms of a respiratory infection aids in the diagnosis of respiratory infection if used in conjunction with other clinical and epidemiological information. The results of this test should not be used as the sole basis for diagnosis, treatment, or other management decisions. Negative results in the setting of a respiratory illness may be due to infection with pathogens that are not detected by this test. Positive results do not rule out infection/co-infection with other organisms. The agent(s) detected by the FilmArray RP2.1 may not be the definite cause of disease. Additional testing (lab, imaging, etc.) may be necessary when evaluating a patient with possible respiratory tract infection. The FilmArray RP2.1 assay has FDA clearance for testing of CLINICAL RESEARCH DIRECTOR swabs. The performance of additional specimen types has been assessed by the performing laboratory. The performance characteristics of this assay have been determined by [facility]. Current interpretive data was last revised on 22. [facility] - [facility]AL [place] [place] Final Result [facility] [address] [place] [address] from Last 3 Months Insurance [facility] [employer] [address] [id number] [place] [address] [employer] [address] [id number] [place] [address] [facility] [employer] Advance Directives For more information, please contact: [phone] * Full Code (Latest Code Status on File) Date Activated Date Inactivated Comments 08/13/2024 3:12 AM 08/14/2024 6:01 PM * Full Code Date Activated Date Inactivated Comments 10/28/2022 5:15 PM 10/29/2022 2:07 PM * Full Code Date Activated Date Inactivated Comments 08/09/2019 5:28 PM 08/10/2019 5:09 PM * Full Code Date Activated Date Inactivated Comments 07/29/2019 4:26 PM 08/04/2019 10:36 PM Care Teams Rn Procedure Relationship Specialty [place] [id number] [place] [address] PCP - General Family Medicine 05/18/24 [place] [id number] [facility] [address] [place] [address] Referring Physician General Surgery 08/04/19 [place] [id number] [facility] [address] [place] [address] Consulting Physician Gastroenterology 08/04/19
--- OUTSIDE RECORDS SUMMARY | 2024-09-16 10:52 | XMS_ITS ---
Author Organization [facility] Address [address] [place] [address] Care Team Providers Care Spin Tank Tender Name Role Phone Unavailable Unavailable Unavailable Surgery Details Not on file Complications Check Surgery Details section. Procedure Estimated Blood Loss Check Surgery Details section. Procedure Findings Check Surgery Details section. Procedure Specimens Taken Check Surgery Details section.
--- OUTSIDE RECORDS SUMMARY | 2024-09-16 10:52 | XMS_ITS | Referral Summary ---
Author Organization [facility] Address [address] [place] [address] Care Team Providers Care Vice President Talent Management Name Role Phone Unavailable Primary Care Provider Unavailabl e Social History Tobacco Use Types Packs/Day Years Used Date Smoking Tobacco: Never Assessed Sex and Gender Information Value Date Recorded Sex Assigned at Not on file Legal Sex Male 8:56 AM PST Gender Identity Not on file Sexual Orientation Not on file Plan of Treatment Not on file [facility]
--- OUTSIDE RECORDS SUMMARY | 2024-09-16 10:52 | XMS_ITS | CCD ---
Author Organization [facility] [place] [address] [place] [address] Care Team Providers Care Salt Cutter Name Role Phone Unavailable Primary Care Provider [...]
--- OUTSIDE RECORDS SUMMARY | 2024-09-16 10:52 | XMS_ITS | Encounter Summary ---
Author Organization [facility] Address [address] [place] [address] Care Team Providers Care Aquaculture Worker Name Role Phone Jerel Camejo MD Primary Care Provider [phone] Reason for Visit * Reason Comments general weakness Pt reports feeling w eak + sick since being prescribed lasix for his leg swelling a week ago. Also c/o headache, abd pain, sore throat, and vomiting . D/c from OSH earlier today Encounter Details Date Type Department Care Team (Late st Contact Info) Description 09/15/2024 2:19 AM DEPUTY DIRECTOR - 09/15/2024 3:50 AM DEPUTY DIRECTOR Emergency [facility] Emergency Department [address] [place] [address] [place] [address] [place] [address] Lower extremity edema (Primary Dx) Discharge Disposition: Home or Self Care Social History Tobacco Use Types Packs/Day Years [...] on file Legal Sex Male 7:43 PM DEPUTY DIRECTOR Gender Identity Not on file Sexual Orientation Not on file documented as of this encounter Last Filed Vital Signs Vital Sign Reading Time Taken Comments Blood Pressure 105/68 09/15/2024 3:27 AM DEPUTY DIRECTOR Pulse 65 09/15/2024 3:27 AM DEPUTY DIRECTOR Temperature 37.1 C (98.8 F) 09/15/2024 3:40 AM DEPUTY DIRECTOR Respiratory Rate 17 09/15/2024 3:27 AM DEPUTY DIRECTOR Oxygen Saturation 100% 09/15/2024 3:27 AM DEPUTY DIRECTOR Inhaled Oxygen Concentration - - Weight 77.1 kg (170 lb) 09/14/2024 11:08 PM DEPUTY DIRECTOR Height 172.7 cm (5' 8 ) 09/14/2024 11:08 PM DEPUTY DIRECTOR Body Mass Index 25.85 09/14/2024 11:08 PM DEPUTY DIRECTOR documented in this encounter Discharge Instructions * Discharge Instructions* Greg Todd MD - 09/15/2024 3:38 AM DEPUTY DIRECTOR Please return to ED for any worsening symptoms including fever, uncontrolled nausea or vomiting, chest pain, shortness of breath, or any other new, changing, or concerning symptoms. TY DIRECTOR * Attachments The following attachments cannot be sent through Care Everywhere. * Edema: Leg and Ankle (Pakistani) documented in this encounter Medications at Time of Discharge furosemide (LASIX) 40 mg tablet Take 40 mg by mouth daily. 09/11/2024 09/16/2024 furosemide (LASIX) 20 mg tablet Take 20 mg by mouth 2 times daily. 08/23/2024 08/23/2025 documented as of this encounter ED Notes * Jasbir Key RN - 09/15/2024 3:50 AM CST Plan of care discussed between physician and patient. Patient agrees with plan for discharge. Patient verbalizes acknowledging information. Patient IV removed, and covered with clean dressing. Patient vital signs are stable at this time. TY DIRECTOR * Jasbir Key RN - 09/15/2024 3:06 AM CST states no need for EKG at this time. TY DIRECTOR * Greg Todd MD - 09/15/2024 2:52 AM CST HISTORY OF PRESENT ILLNESS Documented Triage Chief Complaint: General Weakness 2:52 AM: Samuel Mccoy is a 44 y.o. male, who presents to the Emergency Department with complaints of flu-like symptoms. Patient's L lower leg has been swollen for 3.5 weeks and he was prescribed Lasix ~1 week ago. Patient reports that since then, he has been weak and experiencing flu-like symptoms. Patient endorses headache, abdominal pain, sore throat, vomiting, and fever. Patient denies any allergies. Physician(s): Jerel Camejo MD History provided by: The patient Arrived by: Private vehicle Arrived from: Other PAST MEDICAL HISTORY REVIEWED MEDICAL: Patient has a past medical history of Leg swelling. SURGICAL: Patient has a past surgical history that includes cholecystectomy (08/01/2019); surgical other (07/2020); and esophagogastroduodenoscopy (08/03/2019). ALLERGIES Iodinated contrast media PHYSICAL EXAM INITIAL VS BP: 121/63 (09/14/242307), Heart Rate: 80 bpm (09/14/242307), Resp: 17 (09/14/242307), Pulse: 80(09/14/242307), Temp: 97.8 ??F (36.6 ??C) (09/14/242307), Temp src: Oral (09/14/242307), SpO2: 98 % (09/14/242307), Height: 5' 8 (172.7 cm) (09/14/242307), Weight: 77.1 kg (170 lb) (09/14/242307), BMI (Calculated): (!) 25.85 (09/14/242307) No LMP for male patient. Physical Exam Vitals reviewed. Constitutional: General: He is not in acute distress. Appearance: He is not diaphoretic. HENT: Head: Normocephalic and atraumatic. Mouth/Throat: Mouth: Mucous membranes are moist. Eyes: General: Right eye: No discharge. Left eye: No discharge. Conjunctiva/sclera: Conjunctivae normal. Cardiovascular: Rate and Rhythm: Normal rate and regular rhythm. Pulses: Normal pulses. Heart sounds: No murmur heard. Pulmonary: Effort: Pulmonary effort is normal. No respiratory distress. Breath sounds: Normal breath sounds. Abdominal: General: There is no distension. Palpations: Abdomen is soft. Tenderness: There is no abdominal tenderness. Musculoskeletal: General: No swelling. Normal range of motion. Cervical back: Normal range of motion. Comments: Mild erythema to anterior left lower leg. Trace bilateral lower extremity edema Skin: General: Skin is warm and dry. Neurological: General: No focal deficit present. Mental Status: He is alert and oriented to person, place, and time. DIAGNOSTICS LAB: CBC WITH DIFFERENTIAL - Abnormal Result Value WBC 5.5 RBC 4.45 (*) HEMOGLOBIN 12.7 (*) HEMATOCRIT 39.4 (*) MCV 88.5 MCH 28.5 MCHC 32.2 RDW 12.5 RDW-STDEV 40.6 PLATELETS 183 MPV 10.5 NEUTROPHILS 50 LYMPHOCYTES 34 MONOCYTES 12 EOSINOPHILS 4 BASOPHILS 1 IMMATURE GRANULOCYTES 0 NEUTROPHIL ABSOLUTE 2.72 LYMPHOCYTE ABSOLUTE 1.84 MONOCYTE ABSOLUTE 0.63 EOSINOPHIL ABSOLUTE 0.21 BASOPHILS ABSOLUTE 0.04 IMMATURE GRANULOCYTES ABSOLUTE 0.01 COMPREHENSIVE METABOLIC PANEL - Abnormal SODIUM 141 POTASSIUM 3.6 CHLORIDE 100 CO2 31 (*) CALCIUM 8.8 BUN 27 (*) CREATININE 1.13 GLUCOSE 111 (*) TOTAL PROTEIN 7.0 ALBUMIN 4.0 BILIRUBIN TOTAL 0.4 ALKALINE PHOSPHATASE 79 AST ALT 41 GFR >60 ANION GAP 10 POC GLUCOSE - Abnormal GLUCOSE POC 119 (*) SPECIMEN SOURCE, GLUCOSE POC Whole Blood RADIOLOGY: No orders to display EKG: PROCEDURES Procedures MEDICAL DECISION MAKING AND PLAN OF CARE --On initial evaluation, saw and examined the patient. Discussed plan for labs. Patient understandsand agrees with the plan. ED provider and ED nurse verbally discussed patient plan of care at this time. Medical Decision Making 44-year-old male presenting for evaluation of bilateral lower extremity swelling, frequent presentation for similar, also notes area of redness over his left lower leg, previously prescribed antibiotics but has not been taking them. Also had URI symptoms recently, respiratory panel has been negative. Afebrile, vital signs stable, no acute distress. CBC with normal cell counts, chemistry panel with unremarkable electrolytes and renal function, patient previously described diuretics, no significant edema on exam, mild area of erythema, question cellulitis versus chronic venous stasis changes, given that he has not been taking antibiotics as previously prescribed, will give new prescription, re commend follow-up with PCP. Discussed all findings recommendation with the patient, he is agreeablewith this plan, strict return precautions discussed, all questions answered. Pt is medically stable for discharge at this time. I have given the patient instructions regarding diagnosis, expectations, follow up, and return precautions. I explained to the patient that emergent conditions may arise and to return to the ER for new, worsening, or any persistent conditions. I've explained the importance of following up with Primary Care Physician-(or the referral physician listed below) as instructed. The patient verbalized understanding of the discharge instructions. Amount and/or Complexity of Data Reviewed External Data Reviewed: notes. Labs: ordered. Decision-making details documented in ED Course. Clinical Scoring & Consults Discharge Medication List as of 09/15/2024 3:39 AM START taking these medications Details cephALEXin (KEFLEX) 500 mg capsule Take 1 Capsule (500 mg) by mouth 4 times daily for 7 days., Disp-28 Capsule, R-0 CONTINUE these medications which have NOT CHANGED Details furosemide (LASIX) 20 mg tablet Take 20 mg by mouth 2 times daily. bumetanide (BUMEX) 1 mg tablet Take 1 mg by mouth daily. hydroCHLOROthiazide 25 mg tablet Take 25 mg by mouth daily. lidocaine (LIDODERM) 5 % Adhesive Patch, Medicated Apply 1 Patch to affected area every 24 hours., Disp-14 Patch, R-0 ibuprofen (MOTRIN) 800 mg tablet Take 1 Tablet (800 mg) by mouth every 6 hours as needed for Pain, Mild., Disp-30 Tablet, R-0 LAST VS BP: 105/68 (09/15/24 0327), Heart Rate: 65 bpm (09/15/24 032), Resp: 17 (09/15/24326), Pulse: 65(09/15/24326), Temp: 98.8 ??F (37.1 ??C) (09/15/24 0340), Temp src: Oral (09/15/24339), SpO2: 100 % (09/15/24326) CLINICAL IMPRESSION Final diagnoses: [R60.0] Lower extremity edema (Primary) DISPOSITION, EDUCATION AND MEDICATION RECONCILIATION Medications reconciled. See after visit summary for patient education on discharged patients. ED Disposition ED Disposition Discharge Condition Stable User Greg Todd MD Date/Time WedSep 15, 2024 3:38 AM Comment -- ATTESTATION STATEMENTS This note has been prepared by Dorothy Tipton acting as a scribe for Dr. Greg Todd on 09/15/2024 at3:37 AM. The scribe's documentation has been prepared under my direction and personally reviewed by me, MD Antoni, in its entirety on 09/16/24 at 3:37 AM. I confirm that the note above accurately reflects all work, treatment, procedures, and medical decision making performed by me. Greg Todd MD, MPH Emergency Medicine [facility] TY DIRECTOR * Jasbir Key RN - 09/15/2024 2:30 AM CST Chief Complaint Patient presents with general weakness Pt reports feeling weak + sick since being prescribed lasix for his leg swelling a week ago. Also c/o headache, abd pain, sore throat, and vomiting . D/c from OSH earlier today This RN agrees with triage note. When asked about symptoms pt states flu symptoms. Pt very flat effect and withdrawn and does not want to answer questions. Upon arrival to this room, pt AOx4, speaking in full and complete sentences. RR even, non-labored with bilateral rise and fall of chest. SkinPWD. NAD noted. Patient connected to intermittent blood pressure, pulse ox. Bed in lowest locked position, call light within reach, side rails up. TY DIRECTOR documented in this encounter Miscellaneous Notes * Gen AI RUTH - GENERATIVE AI HANDOFF NOTE - 09/16/2024 10:17 AM CST ## ER_course: ## # DIAGNOSIS: Lower extremity edema. The patient, a 44-year-old male, presented with general weakness and flu-like symptoms, including headache, abdominal pain, sore throat, vomiting, and fever. These symptoms began after being prescribed Lasix for leg swelling. The patient also reported bilateral lower extremity swelling and mild erythema on the left lower leg. # Abnormal findings included a comprehensive metabolic panel showing elevated BUN (27), CO2 (31), and glucose (111), with a POC glucose of 119. The CBC showed slightly low RBC (4.45), hemoglobin (12.7), and hematocrit (39.4). # The patient was previously prescribed antibiotics but had not been taking them. The ED provider considered cellulitis versus chronic venous stasis changes and prescribed a new antibiotic, cephalexin (Keflex), 500 mg four times daily for 7 days. # The patient was medically stable for discharge, with vital signs stable and no acute distress noted. ## Follow_up_orders: ## # The patient was started on a new prescription for cephalexin (Keflex) 500 mg capsule, to be taken four times daily for 7 days. # The patient is advised to follow up with their Primary Care Physician (PCP) for further evaluation and management of the lower extremity edema and to ensure compliance with the antibiotic regimen. # Strict return precautions were discussed, and the patient was instructed to return to the ER for any new, worsening, or persistent conditions. ## Home_Situation: ## # No specific factors potentially impairing follow-up care were noted in the ER documentation. TY DIRECTOR documented in this encounter Plan of Treatment Upcoming Encounters Date Type Department Care Team (Late st Contact Info) Description 08/27/2025 11:30 AM DEPUTY DIRECTOR Office Visit [facility] Internal Medicine - [place] [address] [facility] [address] [place] [id number] [place] [address] [facility] [address] [place] [address] documented as of this encounter Procedures Procedure Name Priority Date/Time Associated Diagnosis Comments CBC WITH DIFFERENTIAL Stat 09/14/2024 11:53 PM DEPUTY DIRECTOR COMPREHENSIVE METABOLIC PANEL Stat 09/14/2024 11:53 PM DEPUTY DIRECTOR POC GLUCOSE Stat 09/14/2024 11:51 PM DEPUTY DIRECTOR documented in this encounter Results * (ABNORMAL) COMPREHENSIVE METABOLIC PANEL (09/14/2024 11:53 PM DEPUTY DIRECTOR) SODIUM 141 136 - 145 mmol/L 09/15/2024 12:40 AM [facility] POTASSIUM 3.6 3.5 - 5.0 mmol/L 09/15/2024 12:40 AM [facility] Ur[facility] CHLORIDE 100 98 - 107 mmol/L 09/15/2024 12:40 AM [facility] CO2 31(H) 22 - 29 mmol/L 09/15/2024 12:40 AM [facility] CALCIUM 8.8 8.6 - 10.2 mg/dL 09/15/2024 12:40 AM [facility] BUN 27(H) 6 - 20 mg/dL 09/15/2024 12:40 AM [facility] CREATININE 1.13 0.67 - 1.17 mg/dL 09/15/2024 12:40 AM [facility] GLUCOSE 111(H) 74 - 99 mg/dL 09/15/2024 12:40 AM [facility] TOTAL PROTEIN 7.0 6.7 - 8.6 g/dL 09/15/2024 12:40 AM [facility] ALBUMIN 4.0 3.5 - 5.2 g/dL 09/15/2024 12:40 AM [facility] BILIRUBIN TOTAL 0.4 0.3 - 1.2 mg/dL 09/15/2024 12:40 AM [facility] ALKALINE PHOSPHATASE 79 40 - 129 U/L 09/15/2024 12:40 AM [facility] Ur[facility] AST 09/15/2024 12:40 AM [facility] Comment:Test cannot be perfo rmed. Sample hemolysis interference above limits. Redraw if indicated. ALT 41 <42 U/L 09/15/2024 12:40 AM [facility] GFR >60 >=60 mL/min/1.7 3 sq meter 09/15/2024 12:40 AM [facility] Comment:eGFR calculated with 2020 CKD-EPI equation. Vegetarian diet, extremely high or low muscle mass, and may affect results. Cystatin C with Glomerular Filtration Rate is a suitable alternative for these patients. ANION GAP 10 8 - 16 mmol/L 09/15/2024 12:40 AM [facility] Blood Venipuncture / Unknown 09/14/2024 11:53 PM DEPUTY DIRECTOR 09/15/2024 12:02 AM [facility] [facility] - 09/15/2024 12:40 AM DEPUTY DIRECTOR Samples containing indocyanine green cause interferences on Total and/or Direct Bilirubin and must not be measured. Greg Todd MD CHEMISTRY ORDERABLES Final Re sult [facility] [id number] [address] [place] [address] * (ABNORMAL) CBC WITH DIFFERENTIAL (09/14/2024 11:53 PM DEPUTY DIRECTOR) WBC 5.5 4.0 - 9.8 K/uL 09/15/2024 12:21 AM [facility] RBC 4.45(L) 4.50 - 5.40 M/uL 09/15/2024 12:21 AM [facility] HEMOGLOBIN 12.7(L) 13.6 - 16.5 g/dL 09/15/2024 12:21 AM [facility] HEMATOCRIT 39.4(L) 40.0 - 48.0 % 09/15/2024 12:21 AM [facility] [employer] [facility] MCV 88.5 82.0 - 99.0 fL 09/15/2024 12:21 AM [facility] MCH 28.5 27.2 - 32.6 pg 09/15/2024 12:21 AM [facility] [employer] [facility] MCHC 32.2 31.5 - 35.5 g/dL 09/15/2024 12:21 AM [facility] [employer] [facility] RDW 12.5 11.5 - 14.5 % 09/15/2024 12:21 AM [facility] [employer] [facility] RDW-STDEV 40.6 37.1 - 48.7 fL 09/15/2024 12:21 AM [facility] [employer] [facility] PLATELETS 183 140 - 350 K/uL 09/15/2024 12:21 AM [facility] MPV 10.5 9.3 - 12.4 fL 09/15/2024 12:21 AM [facility] NEUTROPHILS 50 % 09/15/2024 12:21 AM [facility] LYMPHOCYTES 34 % 09/15/2024 12:21 AM [facility] MONOCYTES 12 % 09/15/2024 12:21 AM [facility] EOSINOPHILS 4 % 09/15/2024 12:21 AM [facility] BASOPHILS 1 % 09/15/2024 12:21 AM [facility] IMMATURE GRANULOCYTES 0 % 09/15/2024 12:21 AM [facility] NEUTROPHIL ABSOLUTE 2.72 1.90 - 7.00 K/uL 09/15/2024 12:21 AM [facility] LYMPHOCYTE ABSOLUTE 1.84 0.70 - 4.50 K/uL 09/15/2024 12:21 AM [facility] MONOCYTE ABSOLUTE 0.63 0.10 - 1.30 K/uL 09/15/2024 12:21 AM [facility] EOSINOPHIL ABSOLUTE 0.21 0.00 - 0.70 K/uL 09/15/2024 12:21 AM [facility] BASOPHILS ABSOLUTE 0.04 0.00 - 0.20 K/uL 09/15/2024 12:21 AM [facility] IMMATURE GRANULOCYTES ABSOLUTE 0.01 0.00 - 0.03 K/uL 09/15/2024 12:21 AM [facility] Blood Venipuncture / Unknown 09/14/2024 11:53 PM DEPUTY DIRECTOR 09/15/2024 12:02 AM DEPUTY DIRECTOR Greg Todd MD HEMATOLOGY ORDERABLES Final R esult [facility] [employer] [facility]# [id number] [address] [place] [address] * (ABNORMAL) POC GLUCOSE (09/14/2024 11:51 PM DEPUTY DIRECTOR) GLUCOSE POC 119(H) 74 - 99 mg/dL 09/14/2024 11:51 PM DEPUTY DIRECTOR [facility] SPECIMEN SOURCE, GLUCOSE POC Whole Blood 09/14/2024 11:51 PM DEPUTY DIRECTOR [facility] Blood, whole 09/14/2024 11:5 1 PM DEPUTY DIRECTOR 09/14/2024 11:58 PM DEPUTY DIRECTOR us Interface Provider Poct POINT OF CARE TESTING Fi nal Result Performing Organization Address [facility] Co de Phone Number [facility] [employer] [facility]# [id number] [address] [place] [address] documented in this encounter Visit Diagnoses Diagnosis Lower extremity edema- Primary Edema documented in this encounter Care Teams Aquaculture Worker Relationship Specialty [place] [address] [address] [facility] [address] Kyler Holland [address] [address] PCP - General Family Practice 12/01/22 documented as of this encounter
--- OUTSIDE RECORDS SUMMARY | 2024-09-16 10:52 | XMS_ITS | Encounter Summary ---
Author Organization [facility] Address [address] [place] [address] Care Team Providers Care Condominium Manager Name Role Phone Unavailable Primary Care Provider Unavailabl e Prior Encounters Date Type Department Care Team Description 11/19/2022 Travel Plan of Treatment Not on file Visit Diagnoses Not on file [facility]
--- OUTSIDE RECORDS SUMMARY | 2024-09-16 10:52 | XMS_ITS | Encounter Summary ---
Author Organization [facility] Address [address] [place] [address] Care Team Providers Care Logistics Loss Prevention Manager Name Role Phone Jerel Camejo MD Primary Care Provider [phone] Reason for Visit * Reason Comments Fatigue Generalized Body Aches Pt is here w c/o fatigue and slight nausea and body aches. He states he was in the ED and was given furosemide and is now not feeling well. Encounter Details Date Type Department Care Team (Late st Contact Info) Description 09/15/2024 6:00 PM INFORMATION TECHNOLOGY MANAGER Office Visit [facility] [address] [place] [address] Kay Melo, [facility] [address] [place] [address] Nausea and vomiting, unspecified vomiting type (Primary Dx) Social History Tobacco Use Types Packs/Day Years [...] on file Legal Sex Male 7:43 PM INFORMATION TECHNOLOGY MANAGER Gender Identity Not on file Sexual Orientation Not on file documented as of this encounter Last Filed Vital Signs Vital Sign Reading Time Taken Comments Blood Pressure 127/79 09/15/2024 5:54 PM INFORMATION TECHNOLOGY MANAGER Pulse 93 09/15/2024 5:54 PM INFORMATION TECHNOLOGY MANAGER Temperature 36.7 C (98.1 F) 09/15/2024 5:54 PM INFORMATION TECHNOLOGY MANAGER Respiratory Rate 16 09/15/2024 5:54 PM INFORMATION TECHNOLOGY MANAGER Oxygen Saturation 99% 09/15/2024 5:54 PM INFORMATION TECHNOLOGY MANAGER Inhaled Oxygen Concentration - - Weight 74.8 kg (165 lb) 09/15/2024 5:54 PM INFORMATION TECHNOLOGY MANAGER Height - - Body Mass Index 25.09 09/14/2024 11:08 PM INFORMATION TECHNOLOGY MANAGER documented in this encounter Patient Instructions * Attachments The following attachments cannot be sent through Care Everywhere. * Nausea and Vomiting ([place] Island[place]) documented in this encounter Progress Notes * Kay Melo FNP - 09/15/2024 6:00 PM CST Assessment and Plan Encounter Diagnosis Name Primary? Nausea and vomiting, unspecified vomiting type Yes Samuel was seen today for fatigue and generalized body aches. Diagnoses and all orders for this visit: Nausea and vomiting, unspecified vomiting type - POC INFLUENZA A AND B ANTIGEN Other orders - ondansetron (ZOFRAN ODT) 4 mg Tablet, Rapid Dissolve; Take 1 Tablet (4 mg) by mouth every 8 hoursas needed for Nausea/Emesis. Dissolve tablet on top of tongue, then swallow with saliva. Comment: Patient is low risk for complications, vital signs and exam are reassuring. Patient in agreement with care plan. The following higher risk findings were not present today: Unstable vital signs Hemoptysis Chronic night sweats Dyspnea I considered pneumonia, bronchitis, reactive airway disease, lung mass, PE but the evaluation did not support them. Advised sleeping with head elevated and humidification if possible to relieve night-time symptoms, NSAIDs as needed for fever. Follow-up with PCP or here in 2 days if not improving, or with sooner in ED if symptoms worsen. Subjective History of present illness Samuel Mccoy is a 44 y.o. male who presents with cough. Fever: no Dyspnea: no Duration: today Progression: worsened Severity: moderate Sputum: minimal Review of Systems Constitutional: see HPI Respiratory: see HPI, no hemoptysis CV: no chest pain GI: no vomiting Outpatient Medications Marked as Taking for the 09/15/24 encounter (Office Visit) with Kay Melo FNP Medication Sig Dispense Refill furosemide (LASIX) 40 mg tablet Take 40 mg by mouth daily. ondansetron (ZOFRAN ODT) 4 mg Tablet, Rapid Dissolve Take 1 Tablet (4 mg) by mouth every 8 hours asneeded for Nausea/Emesis. Dissolve tablet on top of tongue, then swallow with saliva. 30 Tablet 0 Patient Active Problem List Diagnosis Date Noted Gallbladder adhesions 09/15/2024 Bilateral lower extremity edema 08/26/2024 LAD (lymphadenopathy) 08/21/2024 Coronavirus infection 08/14/2024 Mass of nose 06/15/2022 Overview Note: Added automatically from request for surgery [id number] Leg wound, left 09/13/2019 Chronic abdominal pain 08/12/2019 S/P cholecystectomy 08/12/2019 Vasovagal episode 08/12/2019 Calculus of gallbladder 07/29/2019 Intractable right upper quadrant abdominal pain 07/29/2019 Overview Note: Added automatically from request for surgery [id number] Nausea 07/29/2019 Adjustment disorder with depressed mood in remission 11/05/2018 Generalized abdominal pain 10/25/2018 Sepsis (CMS/HCC) 10/25/2018 Dizziness 10/20/2018 Syncope and collapse 10/20/2018 Social History Tobacco Use Smoking status: Never Smokeless tobacco: Never Vaping Use Vaping status: Never Used Substance Use Topics Alcohol use: Not Currently Drug use: Never Objective Vitals: 09/15/24 1754 BP: 127/79 Pulse: 93 Resp: 16 Temp: 98.1 ??F (36.7 ??C) SpO2: 99% General: no acute distress, well developed, well nourished, alert and oriented Head: normocephalic. Eyes: no conjunctival injection. Ear: tympanic membranes clear bilaterally, no redness, normal landmarks and light reflexes, canal clear Nose: no congestion Mouth and throat: moist mucous membranes, normal dentition, no erythema, no swelling, no exudates, no PROFESSOR OF BUSINESS ADMINISTRATION. Neck: No resistance to flexion. Heart: regular rate and rhythm. Lungs: clear to auscultation bilaterally Extremities: Perfused. Psych: Affect normal, Interactive, conversant. Skin: warm, dry, no rash on visible skin. Lymphatics: No palpable lymphadenopathy, non-tender nodes. RMATION TECHNOLOGY MANAGER documented in this encounter Plan of Treatment Upcoming Encounters Date Type Department Care Team (Late st Contact Info) Description 08/27/2025 11:30 AM INFORMATION TECHNOLOGY MANAGER Office Visit [facility] [place]o [id number] [place] [address] [address] [place] [address] [place] [address] [place] [address] [place] [id number] documented as of this encounter Procedures Procedure Name Priority Date/Time Associated Diagnosis Comments POC INFLUENZA A AND B ANTIGEN Routine 09/15/2024 6:16 PM INFORMATION TECHNOLOGY MANAGER Nausea and vomiting, unspecified vomiting type documented in this encounter Results * POC INFLUENZA A AND B ANTIGEN (09/15/2024 6:16 PM INFORMATION TECHNOLOGY MANAGER) INFLUENZA A AG POC Negative/Not Detected Negative/No t Detected [employer] [facility] INFLUENZA B AG POC Negative/Not Detected Negative/No t Detected [facility] [employer] [facility] INTERNAL KIT QC POC Pass Pass [facility] [facility] KIT LOT NUMBER POC [id number] [facility] [employer] [facility] KIT EXP DATE POC 05/01/2026 [facility] [employer] [facility] READ METHOD POC Visual [facility] [employer] [facility] Upper Respiratory ANTERIOR NARES SWAB / Unknown 09/15/2024 6:16 PM INFORMATION TECHNOLOGY MANAGER Kay Melo BULL CHAIN OPERATOR POINT OF CARE TESTING F inal Result [facility] [employer] [facility] CLIA# [id number] [place] [address] documented in this encounter Visit Diagnoses Diagnosis Nausea and vomiting, unspecified vomiting type- Primary documented in this encounter Care Teams Logistics Loss Prevention Manager Relationship Specialty [place] [id number] [facility] [address] [place] [address] PCP - General Family Practice 12/01/22 documented as of this encounter
--- OUTSIDE RECORDS SUMMARY | 2024-09-16 10:52 | XMS_ITS | Clinical Summary ---
Author Organization [facility] Address [address] [place] [address] Care Team Providers Care Manager Sourcing Name Role Phone Unavailable Primary Care Provider Unavailabl e Social History Tobacco Use Types Packs/Day Years Used Date Smoking Tobacco: Never Assessed Sex and Gender Information Value Date Recorded Sex Assigned at Not on file Legal Sex Male 8:56 AM PST Gender Identity Not on file Sexual Orientation Not on file Plan of Treatment Health Maintenance Due Date Last Done Comments Dental Prophylaxis 1982 Meningococcal B Vaccine Aged Out No l onger eligible based on patient's age to complete this topic Insurance [employer] PPO
--- OUTSIDE RECORDS SUMMARY | 2024-09-16 10:52 | XMS_ITS | Clinical Summary ---
Author Organization [address] Address [address] [place] [phone] Care Team Providers Care Community Theater Actor Name Role Phone Elias Andrews MD Unavailable [phone] Jonah Otto MD Unavailable [phone] Jerel Camejo MD Primary Care Provider [phone] Allergies Active Allergy Reactions Criticality Noted Date [...] 7 days 21 capsule 09/06/19 25 025 Discontinued(Th erapy completed) Active Problems Patient Care Coordination [...] Insurance Qualify for In Clinic PT? 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 Also noted epigastric discomfort w/ associated nausea. - recent cholecystectomy 07/30 2 to chronic biliary colic w/o evidence of [...] discharge. Assessment & Plan (08/09/2019 7:07 PM FORMING DEPARTMENT SUPERVISOR): Patient presents with complaints of ongoing abdominal pain mainly in right upper and lower quadrants. Also noted epigastric discomfort w/ associated nausea. - recent cholecystectomy 07/30/2 to chronic biliary colic w/o evidence of cholecystitis. - CT A/P 08/09 revealed no acute abnormality and hepatobiliary imaging 08/03 revealed a patent common bile duct w/o evidence of leak. - Suspect this pain is functional in nature, no evidence of acute process - tylenol prn, Toradol prn Nausea 07/29/2019 Assessment & Plan (08/10/2019 10:48 AM FORMING DEPARTMENT SUPERVISOR): Ongoing nausea post cholecystectomy w/o vomiting. Tolerating PO, no emesis overnight - prn zofran - ADAT Assessment & Plan (08/09/2019 7:17 PM FORMING DEPARTMENT SUPERVISOR): Ongoing nausea post cholecystectomy w/o vomiting. - prn zofran - ADAT Calculus of gallbladder 07/29/2019 Dizziness 07/29/2019 Assessment & Plan (08/10/2019 10:59 AM FORMING DEPARTMENT SUPERVISOR): Patient describes dizziness related to uncontrolled abdominal pain. He endorses pain starts in RQ and moves to head . He then becomes diaphoretic, nauseous. Improved this AM. Likely vasovagal, hemodynamically stable. - discussed proper hydration and symptom management Assessment & Plan (08/09/2019 7:16 PM FORMING DEPARTMENT SUPERVISOR): Patient describes dizziness related to uncontrolled abdominal pain. He endorses pain starts in RQ and moves to head . He then becomes diaphoretic, nauseous. - likely vasovagal, s/p 1 L LR in ED. CTM Intractable right upper quadrant abdominal pain 07/29/2019 Overview (08/01/2019): Added automatically from request for surgery [id number] Adjustment disorder with depressed mood in remis devonte 11/05/2018 Sepsis 10/25/2018 Abdominal pain, generalized 10/25/2018 Dizziness 10/20/2018 Syncope and collapse 10/20/2018 Gallbladder adhesions Resolved Problems Problem Noted Date Diagnosed Date Resolved Date COVID-19 08/13/2024 08/14/2024 Encounters Date Type Department Care Team Description 09/14/2024 12:10 AM FORMING DEPARTMENT SUPERVISOR - 09/14/2024 1:[address] [facility] Emergency Department [address] [place] [address] Brice Sepulveda MD Bilateral lower extremity edema (Primary Dx) Discharge Disposition: Discharge to home or self care 09/14/2024 Telephone [facility] at [address] [phone] Lexi Garcia, DEVANG Med Refill 09/13/2024 9:20 PM FORMING DEPARTMENT SUPERVISOR - 09/13/2024 9:46 PM [facility] Emergency Department [address] [place] [phone] Michael Schrader MD Weakness (Primary Dx) Discharge Disposition: Discharge to home or self care 09/13/2024 2:46 AM FORMING DEPARTMENT SUPERVISOR - 09/13/2024 5:31 AM [facility] Emergency Department [address] [place] [phone] Katharine Polanco MD Chronic venous insufficiency (Primary Dx); Lower extremity edema Discharge Disposition: Discharge to home or self care 09/12/2024 9:22 PM FORMING DEPARTMENT SUPERVISOR - 09/12/2024 10:59 PM [facility] Emergency [facility] Emergency Department [address] [place] [address] Leg swelling (Primary Dx); Venous insufficiency; Venous stasis dermatitis Discharge Disposition: Discharge to home or self care 09/11/2024 10:35 PM FORMING DEPARTMENT SUPERVISOR - 09/12/2024 3:44 AM [facility] Emergency Department [address] [place] [phone] Salena Crawley MD Lower extremity edema (Primary Dx); Cellulitis of left lower extremity Discharge Disposition: Discharge to home or self care 09/11/2024 7:00 PM FORMING DEPARTMENT SUPERVISOR Office Visit [facility] [address] [phone] Truman Gabriel, Symptom of leg swelling (Primary Dx) 09/10/2024 5:00 PM FORMING DEPARTMENT SUPERVISOR Office Visit [facility] [address] [phone] Jess Hobson, DEVANG Cellulitis of left lower extremity (Primary Dx); Left leg swelling 09/07/2024 10:55 AM FORMING DEPARTMENT SUPERVISOR - 09/07/2024 10:[address] [facility] Emergency Department [address] [place] [address] Venous stasis dermatitis of both lower extremities (Primary Dx) Discharge Disposition: Discharge to home or self care 09/05/2024 8:08 PM FORMING DEPARTMENT SUPERVISOR - 09/05/2024 10:28 PM [facility] Emergency Department [address] [place] [address] Other chronic pain (Primary Dx); Bilateral lower extremity edema Discharge Disposition: Discharge to home or self care 09/05/2024 2:02 AM FORMING DEPARTMENT SUPERVISOR - 09/05/2024 3:14 AM [facility] Emergency Department [address] [place] [address] Marek Nelson MD PhD Chronic pain of left lower extremity (Primary Dx) Discharge Disposition: Discharge to home or self care 09/03/2024 7:07 PM FORMING DEPARTMENT SUPERVISOR - 09/03/2024 11:06 PM [facility] Emergency Department [address] [place] [phone] Cellulitis of left lower extremity (Primary Dx) Discharge Disposition: Discharge to home or self care 09/02/2024 8:24 AM FORMING DEPARTMENT SUPERVISOR - 09/02/2024 11:59 PM [facility] [address] [place] [address] Discharge Disposition: Discharge to home or self care 09/02/2024 3:25 AM [facility] - 09/02/2024 3:41 AM [facility] Emergency [facility] Emergency Department [address] [place] [phone] Rachele Guerra MD Sprain of right ankle, unspecified ligament, initial encounter (Primary Dx) Discharge Disposition: Discharge to home or self care 09/01/2024 8:06 AM FORMING DEPARTMENT SUPERVISOR - 09/01/2024 9:39 AM [facility] Emergency [facility] Emergency Department [address] [place] [phone] Jair Armendariz MD Sprain of right ankle, unspecified ligament, initial encounter (Primary Dx) Discharge Disposition: Discharge to home or self care 08/23/2024 9:27 PM [facility] - 08/23/2024 10:03 PM [facility] Emergency [facility] Emergency Department [address] [place] [phone] Leg swelling (Primary Dx); Cellulitis of left lower extremity Discharge Disposition: Discharge to home or self care 08/23/2024 1:41 AM [facility] - 08/23/2024 9:16 AM [facility] Emergency [facility] Emergency Department [address] [place] [phone] Salena Crawley MD Li, Alex, MD Schneider, John Elliott, MD Leg swelling (Primary Dx); Cellulitis of left lower extremity; Failure of outpatient treatment Discharge Disposition: Discharge to home or self care 08/20/2024 11:11 PM FORMING DEPARTMENT SUPERVISOR - 08/21/2024 1:30 AM [facility] Emergency [facility] Emergency Department [address] [place] [phone] Dependent edema (Primary Dx) Discharge Disposition: Discharge to home or self care 08/20/2024 9:06 AM [facility] - 08/20/2024 11:08 AM [facility] Emergency Department [address] [place] [address] Fei Murray MD Upper respiratory tract infection, unspecified type (Primary Dx); Peripheral edema Discharge Disposition: Discharge to home or self care 08/20/2024 2:24 AM FORMING DEPARTMENT SUPERVISOR - 08/20/2024 4:35 AM [facility] Emergency [facility] Emergency Department [address] [place] [address] Discharge Disposition: Left without being seen 08/18/2024 5:58 AM FORMING DEPARTMENT SUPERVISOR - 08/18/2024 7:26 AM [facility] Emergency [facility] Emergency Department [address] [place] [phone] Lorenzo Peña MD Peripheral edema (Primary Dx) Discharge Disposition: Discharge to home or self care 08/17/2024 3:00 PM FORMING DEPARTMENT SUPERVISOR Diagnostic [facility] Orthopaedic Surgery [address] [facility] Medicine 6th [place] [address] [place] [phone] uLciano Nelson MD Encounter for examination of normal volunteer in research study 08/15/2024 12:23 AM FORMING DEPARTMENT SUPERVISOR - 08/15/2024 1:52 AM [facility] Emergency [facility] Emergency Department [address] [place] [address] [place] (Primary Dx); Swelling Discharge Disposition: Discharge to home or self care 08/12/2024 8:23 PM FORMING DEPARTMENT SUPERVISOR - 08/14/2024 1:56 PM FORMING DEPARTMENT SUPERVISOR Hospital Encounter [facility] [address] [place] [address] Batsheva Portillo MD Li, MD Lucille Garcia Alex, MD COVID-19 (Primary Dx); Recurrent syncope; Chest pain, unspecified type; Anemia, unspecified type; Elevated AST (SGOT); Elevated ALT measurement; Nonintractable headache, unspecified chronicity pattern, unspecified headache type Discharge Disposition: Discharge to home or self care 08/11/2024 3:49 AM FORMING DEPARTMENT SUPERVISOR - 08/11/2024 4:35 AM [facility] Emergency [facility] Emergency Department [address] [place] [phone] Abdiel Hawkins MD Coronavirus infection (Primary Dx); Lightheadedness Discharge Disposition: Discharge to home or self care 08/08/2024 9:58 PM FORMING DEPARTMENT SUPERVISOR - 08/08/2024 11:12 PM [facility] Emergency [facility] Emergency Department [address] [place] [phone] Karlo Gatica MD COVID (Primary Dx); Dehydration; Syncope, unspecified syncope type Discharge Disposition: Discharge to home or self care 08/07/2024 [facility] Eligibility Review [facility] Community Health Worker [facility] [address] [place] [address] Darlene Zurita [place] 08/06/2024 9:50 AM FORMING DEPARTMENT SUPERVISOR - 08/06/2024 12:23 PM [facility] Emergency [facility] Emergency Department [address] [place] [phone] Jassi Daniels MD Coronavirus infection (Primary Dx) Discharge Disposition: Discharge to home or self care 08/02/2024 12:46 PM FORMING DEPARTMENT SUPERVISOR - 08/02/2024 1:16 PM [facility] Emergency [facility] Emergency Department [address] [place] [phone] Gee Moran MD Chronic right shoulder pain (Primary Dx) Discharge Disposition: Discharge to home or self care 08/01/2024 2:00 AM FORMING DEPARTMENT SUPERVISOR - 08/01/2024 3:17 AM [facility] Emergency [facility] Emergency Department [address] [place] [phone] Chronic right shoulder pain (Primary Dx); Encounter for medication refill Discharge Disposition: Discharge to home or self care 07/29/2024 9:38 PM FORMING DEPARTMENT SUPERVISOR - 07/29/2024 11:38 PM [facility] Emergency [facility] Emergency Department [address] [place] [phone] Cindy Hendricks MD Injury of right rotator cuff, subsequent encounter (Primary Dx) Discharge Disposition: Discharge to home or self care 07/24/2024 1:00 PM [facility] Office Visit [facility] [address] [place] [address] Health 4th Floor [address] [place] [phone] Right anterior shoulder pain (Primary Dx) 07/24/2024 Documentation [facility] [address] [facility] [address] [place] [phone] Cherie Ramirez LCSW Social Work Services 07/19/2024 Documentation [facility] [address] [facility] [address] [place] [phone] Cherie Ramirez STRATEGIC PARTNER DEVELOPMENT MANAGER Social Work Services 06/26/2024 Orders Only [facility] Orthopaedic Surgery [address] [facility] 6th [place] [address] [place] [phone] Michael Corona MD Encounter for examination of normal volunteer in research study (Primary Dx) from Last 3 Months Surgical History Surgery Date Site/Laterality Comments CHOLECYSTECTOMY LUMBAR PUNCTURE 08/02/2018 - 08/01/2019 Medical History Medical History Date Comments Post concussion syndrome Chronic bilateral low back pain Family History Medical History Relation Name Comments Diabetes Mother rty Relation Name Status Comments Mother rty Social History Tobacco Use Types Packs/Day Years Used Date Smoking Tobacco: Never Smokeless Tobacco: Never Tobacco Cessation:Counseling Given: Not Answered Alcohol Use Standard Drinks/Week Comments Not Currently 0 (1 standard drink = 0.6 oz pur e alcohol) [facility] Utilities Answer Date Recorded In the past 12 months has th e electric, gas, oil, or water company threatened [...] declined 08/14/2024 How often do you attend restorationist or rastafarian serv ices? Patient declined 08/14/2024 Do you belong to any clubs o r organizations such as restorationist groups, unions, fraternal or athletic groups, or [...] any time in the past 12 m the rehabilitation institute, were you homeless or living in a half-way (including now)? Patient declined 08/14/2024 Personal Safety Answer Date Recorded Have you ever been in or are you currently in a harmful physical or emotional relationship or is someone making you feel afraid or unsafe? Denies 09/14/2024 Sex and Gender Information Value Date Recorded Sex Assigned at Not on file Legal Sex Male 9:25 PM FORMING DEPARTMENT SUPERVISOR Gender Identity Not on file Sexual Orientation Straight 11/18/2022 7: 07 PM CDT Obstetrics History Last Filed Vital Signs Vital Sign Reading Time Taken Comments Blood Pressure 108/66 09/14/2024 1:44 AM FORMING DEPARTMENT SUPERVISOR Pulse 70 09/14/2024 1:44 AM FORMING DEPARTMENT SUPERVISOR Temperature 37 C (98.6 F) 09/14/2024 12:05 AM FORMING DEPARTMENT SUPERVISOR Respiratory Rate 16 09/14/2024 12:05 AM FORMING DEPARTMENT SUPERVISOR Oxygen Saturation 97% 09/14/2024 12:05 AM FORMING DEPARTMENT SUPERVISOR Inhaled Oxygen Concentration - - Weight 74.8 kg (165 lb) 09/13/2024 8:50 PM FORMING DEPARTMENT SUPERVISOR Height 172.7 cm (5' 8 ) 09/13/2024 8:50 PM FORMING DEPARTMENT SUPERVISOR Body Mass Index 25.09 09/13/2024 8:50 PM FORMING DEPARTMENT SUPERVISOR Plan of Treatment Health Maintenance Due Date Last Done Comments Depression Screening 1982 Pneumococcal vaccine <65 (1 of 2 - PCV) 1988 Varicella Vaccines (1 of 2 - 13+ 2-dose series) 1995 Hepatitis B Screening 2000 Regular Well Visit/Exam 18-64 2000 DTaP/Tdap/Td Vaccine (2 - Td or Tdap) 08/05/2029 08/05/2019, 03/28/2014 Influenza Vaccine Completed 04/03/2024, , 03/13/2024, Additional history exists Covid-19 Vaccine Completed 05/03/2024, 08/2022, 2022, Additional history exists Hepatitis C Screening Completed 08/12/2024 HPV Vaccines Aged Out No longer eligi ble based on patient's age to complete this topic Procedures Procedure Name Priority Date/Time Associated Diagnosis Comments EGFR STAT 09/11/2024 9:10 PM FORMING DEPARTMENT SUPERVISOR DIFFERENTIAL AUTO STAT 09/11/2024 9:1 0 PM FORMING DEPARTMENT SUPERVISOR PRO B-TYPE NATRIURETIC PEPTIDE STAT 09/11/2024 9:10 PM FORMING DEPARTMENT SUPERVISOR COMPREHENSIVE METABOLIC PANEL STAT 09/11/2024 9:10 PM FORMING DEPARTMENT SUPERVISOR CBC WITH AUTO DIFFERENTIAL STAT 09/11/2024 9:10 PM FORMING DEPARTMENT SUPERVISOR EGFR STAT 09/07/2024 2:59 AM FORMING DEPARTMENT SUPERVISOR DIFFERENTIAL AUTO STAT 09/07/2024 2:5 9 AM FORMING DEPARTMENT SUPERVISOR BASIC METABOLIC PANEL STAT 09/07/2024 2:59 AM FORMING DEPARTMENT SUPERVISOR CBC WITH AUTO DIFFERENTIAL STAT 09/07/2024 2:59 AM FORMING DEPARTMENT SUPERVISOR US VEIN DUPLEX LOWER EXTREMITY BILATERAL COMPLETE ED 09/03/2024 7:37 PM FORMING DEPARTMENT SUPERVISOR MRI SHOULDER RIGHT WO CONTRAST Schedule Routine, Read Routine (OP Routine) 09/02/2024 9:06 AM FORMING DEPARTMENT SUPERVISOR Right anterior shoulder pain XR ANKLE RIGHT 2 VIEWS ED 09/01/2024 9:33 PM FORMING DEPARTMENT SUPERVISOR XR TIBIA FIBULA RIGHT2 VIEWS ED 09/01/2024 8:37 AM FORMING DEPARTMENT SUPERVISOR XR ANKLE RIGHT 3 OR MORE VIEWS ED 08/31/2024 10:35 PM FORMING DEPARTMENT SUPERVISOR XR FOOT RIGHT 3 OR MORE VIEWS ED 08/31/2024 10:34 PM FORMING DEPARTMENT SUPERVISOR EGFR STAT 08/23/2024 2:33 AM FORMING DEPARTMENT SUPERVISOR DIFFERENTIAL AUTO STAT 08/23/2024 2:3 3 AM FORMING DEPARTMENT SUPERVISOR PRO B-TYPE NATRIURETIC PEPTIDE STAT 08/23/2024 2:33 AM FORMING DEPARTMENT SUPERVISOR COMPREHENSIVE METABOLIC PANEL STAT 08/23/2024 2:33 AM FORMING DEPARTMENT SUPERVISOR CBC WITH AUTO DIFFERENTIAL STAT 08/23/2024 2:33 AM FORMING DEPARTMENT SUPERVISOR SEPSIS LACTATE WITH REFLEX Routine 08/23/2024 2:33 AM FORMING DEPARTMENT SUPERVISOR BLOOD CULTURE Routine 08/23/2024 2:33 AM FORMING DEPARTMENT SUPERVISOR BLOOD CULTURE Routine 08/23/2024 2:33 AM FORMING DEPARTMENT SUPERVISOR ECG 12-LEAD STAT 08/23/2024 2:32 AM FORMING DEPARTMENT SUPERVISOR EGFR STAT 08/21/2024 12:35 AM FORMING DEPARTMENT SUPERVISOR DIFFERENTIAL AUTO STAT 08/21/2024 12: 35 AM FORMING DEPARTMENT SUPERVISOR CRP (ACUTE PHASE) STAT 08/21/2024 12: 35 AM FORMING DEPARTMENT SUPERVISOR ERYTHROCYTE SEDIMENTATION RATE STAT 08/21/2024 12:35 AM FORMING DEPARTMENT SUPERVISOR BASIC METABOLIC PANEL STAT 08/21/2024 12:35 AM FORMING DEPARTMENT SUPERVISOR CBC WITH AUTO DIFFERENTIAL STAT 08/21/2024 12:35 AM FORMING DEPARTMENT SUPERVISOR STREPTOCOCCUS GROUP A PCR STAT 08/20/2024 9:19 AM FORMING DEPARTMENT SUPERVISOR RESPIRATORY PATHOGEN PANEL Routine 08/20/2024 9:19 AM FORMING DEPARTMENT SUPERVISOR D-DIMER, QUANTITATIVE STAT 08/15/2024 1:08 AM FORMING DEPARTMENT SUPERVISOR PRO B-TYPE NATRIURETIC PEPTIDE STAT 08/14/2024 9:59 PM FORMING DEPARTMENT SUPERVISOR EGFR STAT 08/14/2024 9:59 PM FORMING DEPARTMENT SUPERVISOR DIFFERENTIAL AUTO STAT 08/14/2024 9:5 9 PM FORMING DEPARTMENT SUPERVISOR LIPASE STAT 08/14/2024 9:59 PM FORMING DEPARTMENT SUPERVISOR COMPREHENSIVE METABOLIC PANEL STAT 08/14/2024 9:59 PM FORMING DEPARTMENT SUPERVISOR CBC WITH AUTO DIFFERENTIAL STAT 08/14/2024 9:59 PM FORMING DEPARTMENT SUPERVISOR TRANSTHORACIC ECHO (TTE) COMPLETE W DOPPLER/CF WO CONTRAST Routine 08/14/2024 11:39 AM FORMING DEPARTMENT SUPERVISOR HEPATIC FUNCTION PANEL Routine 08/13/2024 5:30 AM FORMING DEPARTMENT SUPERVISOR EGFR Routine 08/13/2024 5:30 AM FORMING DEPARTMENT SUPERVISOR CBC WITHOUT DIFFERENTIAL Routine 08/13/2024 5:30 AM FORMING DEPARTMENT SUPERVISOR PHOSPHORUS Routine 08/13/2024 5:30 AM FORMING DEPARTMENT SUPERVISOR MAGNESIUM Routine 08/13/2024 5:30 AM FORMING DEPARTMENT SUPERVISOR BASIC METABOLIC PANEL Routine 08/13/2024 5:30 AM FORMING DEPARTMENT SUPERVISOR FERRITIN Routine 08/13/2024 5:30 AM FORMING DEPARTMENT SUPERVISOR DRUGS OF ABUSE SCREEN, URINE WITH REFLEX CONFIRMATION Routine 08/13/2024 12:15 AM FORMING DEPARTMENT SUPERVISOR URINALYSIS AND REFLEX TO MICROSCOPIC AND CULTURE STAT 08/13/2024 12:15 AM FORMING DEPARTMENT SUPERVISOR CT CHEST PE W CONTRAST ED 08/12/2024 11:48 PM FORMING DEPARTMENT SUPERVISOR US VEIN DUPLEX LOWER EXTREMITY BILATERAL COMPLETE ED 08/12/2024 11:46 PM FORMING DEPARTMENT SUPERVISOR US RUQ ED 08/12/2024 11:38 PM FORMING DEPARTMENT SUPERVISOR ADD ON LAB TEST Add-On 08/12/2024 10:29 PM FORMING DEPARTMENT SUPERVISOR CT HEAD AND CERVICAL SPINE WO CONTRAST ED 08/12/2024 10:20 PM FORMING DEPARTMENT SUPERVISOR D-DIMER, QUANTITATIVE STAT 08/12/2024 10:05 PM FORMING DEPARTMENT SUPERVISOR PROTIME-INR STAT 08/12/2024 10:05 PM FORMING DEPARTMENT SUPERVISOR ADD ON LAB TEST Add-On 08/12/2024 9:53 PM FORMING DEPARTMENT SUPERVISOR ADD ON LAB TEST Add-On 08/12/2024 9:53 PM FORMING DEPARTMENT SUPERVISOR ADD ON LAB TEST Add-On 08/12/2024 9:53 PM FORMING DEPARTMENT SUPERVISOR ADD ON LAB TEST Add-On 08/12/2024 9:53 PM FORMING DEPARTMENT SUPERVISOR ADD ON LAB TEST Add-On 08/12/2024 9:53 PM FORMING DEPARTMENT SUPERVISOR ADD ON LAB TEST Add-On 08/12/2024 9:53 PM FORMING DEPARTMENT SUPERVISOR ADD ON LAB TEST Add-On 08/12/2024 9:53 PM FORMING DEPARTMENT SUPERVISOR ETHANOL STAT 08/12/2024 9:52 PM FORMING DEPARTMENT SUPERVISOR TROPONIN T HIGH-SENSITIVITY 2-HOUR Timed 08/12/2024 9:52 PM FORMING DEPARTMENT SUPERVISOR ACETAMINOPHEN LEVEL STAT 08/12/2024 9 :13 PM FORMING DEPARTMENT SUPERVISOR HEPATITIS PANEL, ACUTE STAT 08/12/2024 9:13 PM FORMING DEPARTMENT SUPERVISOR PRO B-TYPE NATRIURETIC PEPTIDE STAT 08/12/2024 8:08 PM FORMING DEPARTMENT SUPERVISOR THYROID FUNCTION CASCADE STAT 08/12/2024 8:08 PM FORMING DEPARTMENT SUPERVISOR FOLATE STAT 08/12/2024 8:08 PM FORMING DEPARTMENT SUPERVISOR IRON PROFILE W/ IBC STAT 08/12/2024 8 :08 PM FORMING DEPARTMENT SUPERVISOR VITAMIN B12 STAT 08/12/2024 8:08 PM FORMING DEPARTMENT SUPERVISOR MAGNESIUM STAT 08/12/2024 8:08 PM FORMING DEPARTMENT SUPERVISOR PHOSPHORUS STAT 08/12/2024 8:08 PM FORMING DEPARTMENT SUPERVISOR EGFR STAT 08/12/2024 8:08 PM FORMING DEPARTMENT SUPERVISOR DIFFERENTIAL AUTO STAT 08/12/2024 8:0 8 PM FORMING DEPARTMENT SUPERVISOR TROPONIN T HIGH-SENSITIVITY SERIES (BASELINE, 2HR, 4HR, 6HR) STAT 08/12/2024 8:08 PM FORMING DEPARTMENT SUPERVISOR COMPREHENSIVE METABOLIC PANEL STAT 08/12/2024 8:08 PM FORMING DEPARTMENT SUPERVISOR CBC WITH AUTO DIFFERENTIAL STAT 08/12/2024 8:08 PM FORMING DEPARTMENT SUPERVISOR XR CHEST PA LATERAL 2 VIEWS ED 08/12/2024 7:27 PM FORMING DEPARTMENT SUPERVISOR ECG 12-LEAD STAT 08/12/2024 6:48 PM FORMING DEPARTMENT SUPERVISOR XR CHEST PA LATERAL 2 VIEWS ED 08/11/2024 2:02 AM FORMING DEPARTMENT SUPERVISOR ECG 12-LEAD STAT 08/11/2024 1:43 AM FORMING DEPARTMENT SUPERVISOR XR CHEST PA LATERAL 2 VIEWS ED 08/08/2024 10:42 PM FORMING DEPARTMENT SUPERVISOR CT HEAD WO CONTRAST ED 08/08/2024 1 0:34 PM FORMING DEPARTMENT SUPERVISOR ECG 12-LEAD STAT 08/08/2024 8:56 PM FORMING DEPARTMENT SUPERVISOR RESPIRATORY PATHOGEN PANEL Routine 08/06/2024 9:59 AM FORMING DEPARTMENT SUPERVISOR from Last 3 Months Results * eGFR (09/11/2024 9:10 PM FORMING DEPARTMENT SUPERVISOR) eGFR >90 >=60 mL/min/1. 73 m2 Comment: [...] last reviewed 2021. Blood 09/11/2024 9:10 PM FORMING DEPARTMENT SUPERVISOR 09/11/2024 9:30 PM FORMING DEPARTMENT SUPERVISOR Salena Crawley MD LAB BLOOD ORDERABLES Fin al Result [facility] [address] Department [place] [address] * Differential, auto (09/11/2024 9:10 PM FORMING DEPARTMENT SUPERVISOR) Neutrophil abs 3.8 1.5 - 6.5 K/cumm Imm gran abs 0.0 0.0 - 0.1 K/cumm [facility] Lymphocyte abs 1.1 0.8 - 3.3 K/cumm [facility] Monocyte abs 0.5 0.2 - 0.8 K/cumm [facility] Eosinophil abs 0.2 0.0 - 0.5 K/cumm [facility] Basophil abs 0.0 0.0 - 0.1 K/cumm [facility] Neutrophil pct 67.2 % [facility] Comment: Interpretive Data Percent cell count reference ranges are not reported, since discordance with absolute values may lead to misinterpretation of CBC data. Current Interpretive Data was last revised on 2017. Imm gran pct 0.4 % [facility] Comment: Interpretive Data Percent cell count reference ranges are not reported, since discordance with absolute values may lead to misinterpretation of CBC data. Current Interpretive Data was last revised on 2017. Lymphocyte pct 20.1 % [facility] Comment: Interpretive Data Percent cell count reference ranges are not reported, since discordance with absolute values may lead to misinterpretation of CBC data. Current Interpretive Data was last revised on 2017. Monocyte pct 8.6 % [facility] Comment: Interpretive Data Percent cell count reference ranges are not reported, since discordance with absolute values may lead to misinterpretation of CBC data. Current Interpretive Data was last revised on 2017. Eosinophil pct 3.2 % [facility] Comment: Interpretive Data Percent cell count reference ranges are not reported, since discordance with absolute values may lead to misinterpretation of CBC data. Current Interpretive Data was last revised on 2017. Basophil pct 0.5 % [facility] Comment: Interpretive Data Percent cell count reference ranges are not reported, since discordance with absolute values may lead to misinterpretation of CBC data. Current Interpretive Data was last revised on 2017. Blood 09/11/2024 9:10 PM FORMING DEPARTMENT SUPERVISOR 09/11/2024 9:30 PM FORMING DEPARTMENT SUPERVISOR us Salena Crawley MD LAB BLOOD ORDERABLES Fin al Result [facility] [address] Department [place] [address] * Pro B-type natriuretic peptide (09/11/2024 9:10 PM FORMING DEPARTMENT SUPERVISOR) NT-proBNP <36 <=300 pg/mL Comment: Interpretive Comments: [...] Revised Date: 2018. Blood 09/11/2024 9:10 PM FORMING DEPARTMENT SUPERVISOR 09/11/2024 9:30 PM FORMING DEPARTMENT SUPERVISOR Salena Crawley MD LAB BLOOD ORDERABLES Fin al Result [facility] [address] [place] [place] [address] * CBC with auto differential (09/11/2024 9:10 PM FORMING DEPARTMENT SUPERVISOR) [facility] WBC 5.7 3.8 - 9.9 K/cumm Hgb 13.1 13.0 - 17.5 g/dL [facility] Hct 40.0 38.9 - 50.3 % [facility] Plt 184 150 - 400 K/cumm [facility] MPV 10.6 9.1 - 12.3 fL [facility] RBC 4.43 4.30 - 5.80 M/cumm [facility] MCV 90.3 81.3 - 96.4 fL [facility] MCH 29.6 27.1 - 33.3 pg [facility] MCHC 32.8 32.3 - 35.7 g/dL [facility] RDW CV 12.7 11.1 - 14.9 % [facility] RDW SD 41.7 35.7 - 48.1 fL [facility] NRBC abs 0.00 0.00 - 0.01 K/cumm [facility] Blood 09/11/2024 9:10 PM FORMING DEPARTMENT SUPERVISOR 09/11/2024 9:30 PM FORMING DEPARTMENT SUPERVISOR Salena Crawley MD LAB BLOOD ORDERABLES Fin al Result Performing Organization Address City/[facility]/ZIP Co de Phone Number [facility] [address] [place] [address] * (ABNORMAL) Comprehensive metabolic panel (09/11/2024 9:10 PM FORMING DEPARTMENT SUPERVISOR) Sodium 142 135 - 145 mmol/L Potassium, pl 4.3 3.3 - 4.9 mmol/L [facility] Chloride 101 97 - 110 mmol/L [facility] CO2 28 22 - 32 mmol/L [facility] Anion gap 13 2 - 15 mmol/L [facility] BUN 28(H) 6 - 25 mg/dL [facility] Creatinine 0.89 0.80 - 1.30 mg/dL [facility] Glucose 113 70 - 199 mg/dL [facility] Comment: Interpretive Data Fasting glucose >/= [...] 2022. Calcium 9.2 8.5 - 10.3 mg/dL [facility] Bilirubin, total 0.8 0.1 - 1.2 mg/dL [facility] Protein, pl 6.7 6.5 - 8.5 g/dL [facility] Albumin 4.0 3.5 - 5.0 g/dL [facility] Alk phos 79 40 - 130 Units/L [facility] ALT 62(H) 7 - 55 Units/L [facility] AST 40 10 - 50 Units/L [facility] Comment:Slightly Hemolyzed S pecimen Blood 09/11/2024 9:10 PM FORMING DEPARTMENT SUPERVISOR 09/11/2024 9:30 PM FORMING DEPARTMENT SUPERVISOR us Salena Crawley MD LAB BLOOD ORDERABLES Fin al Result [facility] [address] Department [place] [address] * eGFR (09/07/2024 2:59 AM FORMING DEPARTMENT SUPERVISOR) [facility] eGFR >90 >=60 mL/min/1. 73 m2 Comment: [...] last reviewed 2021. Blood 09/07/2024 2:59 AM FORMING DEPARTMENT SUPERVISOR 09/07/2024 3:02 AM FORMING DEPARTMENT SUPERVISOR Jair Armendariz MD LAB BLOOD ORDERABLES Final Result [address] Department [place] [address] * Differential, auto (09/07/2024 2:59 AM FORMING DEPARTMENT SUPERVISOR) [facility] Neutrophil abs 3.0 1.5 - 6.5 K/cumm Imm gran abs 0.0 0.0 - 0.1 K/cumm [facility] Lymphocyte abs 2.1 0.8 - 3.3 K/cumm [facility] Monocyte abs 0.4 0.2 - 0.8 K/cumm [facility] Eosinophil abs 0.2 0.0 - 0.5 K/cumm [facility] Basophil abs 0.0 0.0 - 0.1 K/cumm [facility] Neutrophil pct 51.2 % [facility] Comment: Interpretive Data Percent cell count reference ranges are not reported, since discordance with absolute values may lead to misinterpretation of CBC data. Current Interpretive Data was last revised on 2017. Imm gran pct 0.3 % [facility] Comment: Interpretive Data Percent cell count reference ranges are not reported, since discordance with absolute values may lead to misinterpretation of CBC data. Current Interpretive Data was last revised on 2017. Lymphocyte pct 36.9 % [facility] Comment: Interpretive Data Percent cell count reference ranges are not reported, since discordance with absolute values may lead to misinterpretation of CBC data. Current Interpretive Data was last revised on 2017. Monocyte pct 6.9 % [facility] Comment: Interpretive Data Percent cell count reference ranges are not reported, since discordance with absolute values may lead to misinterpretation of CBC data. Current Interpretive Data was last revised on 2017. Eosinophil pct 4.0 % [facility] Comment: Interpretive Data Percent cell count reference ranges are not reported, since discordance with absolute values may lead to misinterpretation of CBC data. Current Interpretive Data was last revised on 2017. Basophil pct 0.7 % [facility] Comment: Interpretive Data Percent cell count reference ranges are not reported, since discordance with absolute values may lead to misinterpretation of CBC data. Current Interpretive Data was last revised on 2017. Blood 09/07/2024 2:59 AM FORMING DEPARTMENT SUPERVISOR 09/07/2024 3:02 AM FORMING DEPARTMENT SUPERVISOR us Jair Armendariz MD LAB BLOOD ORDERABLES Final Result [facility] [address] [facility] [place] [address] * (ABNORMAL) CBC with auto differential (09/07/2024 2:59 AM FORMING DEPARTMENT SUPERVISOR) WBC 5.8 3.8 - 9.9 K/cumm Hgb 12.3(L) 13.0 - 17.5 g/dL [facility] Hct 37.2(L) 38.9 - 50.3 % [facility] Plt 163 150 - 400 K/cumm [facility] MPV 10.4 9.1 - 12.3 fL [facility] RBC 4.17(L) 4.30 - 5.80 M/cumm [facility] MCV 89.2 81.3 - 96.4 fL [facility] MCH 29.5 27.1 - 33.3 pg [facility] MCHC 33.1 32.3 - 35.7 g/dL [facility] RDW CV 12.6 11.1 - 14.9 % [facility] RDW SD 41.1 35.7 - 48.1 fL [facility] NRBC abs 0.00 0.00 - 0.01 K/cumm [facility] Blood 09/07/2024 2:59 AM FORMING DEPARTMENT SUPERVISOR 09/07/2024 3:02 AM FORMING DEPARTMENT SUPERVISOR Jair Armendariz MD LAB BLOOD ORDERABLES Final Result [address] Department [place] [address] * Basic metabolic panel (09/07/2024 2:59 AM FORMING DEPARTMENT SUPERVISOR) Sodium 143 135 - 145 mmol/L Potassium, pl 4.4 3.3 - 4.9 mmol/L [facility] Chloride 109 97 - 110 mmol/L [facility] CO2 25 22 - 32 mmol/L [facility] Anion gap 9 2 - 15 mmol/L [facility] BUN 24 6 - 25 mg/dL [facility] Creatinine 0.87 0.80 - 1.30 mg/dL [facility] Glucose 86 70 - 199 mg/dL [facility] Comment: Interpretive Data Fasting glucose >/= 126 [...] 2022. Calcium 9.1 8.5 - 10.3 mg/dL [facility] Blood 09/07/2024 2:59 AM FORMING DEPARTMENT SUPERVISOR 09/07/2024 3:02 AM FORMING DEPARTMENT SUPERVISOR us Jair Armendariz MD LAB BLOOD ORDERABLES Final Result [facility] [address] [facility] [place] [address] * US Vein Duplex Lower Extremity Bilateral Complete (09/03/2024 7:37 PM FORMING DEPARTMENT SUPERVISOR) Anatomical Region Laterality Modality Vascular Bilateral Ultrasound 09/04/2024 2:26 PM FORMING DEPARTMENT SUPERVISOR Impressions 09/04/2024 2:26 PM FORMING DEPARTMENT SUPERVISOR 1. No evidence of DVT in the lower extremities bilaterally. 2. Evidence of pulsatile venous flow. This may suggest increased intravascular volume or right-sided valvular heart disease. Clinical correlation suggested. 3. No change when compared to previous studies. Electronically signed by: Lv Smart M.D. Narrative 09/04/2024 2:26 PM FORMING DEPARTMENT SUPERVISOR Lower Extremity Vein Duplex Bilateral DATE: 09/03/2024 [...] Shoulder Right WO Contrast (09/02/2024 9:06 AM FORMING DEPARTMENT SUPERVISOR) Anatomical Region Laterality Modality Upper Extremities Right Magnetic Reson ance 09/02/2024 11:0 8 AM FORMING DEPARTMENT SUPERVISOR Impressions 09/02/2024 12:42 PM FORMING DEPARTMENT SUPERVISOR 1. Minimal right rotator cuff tendinopathy without [...] Gudelia Berger MD Narrative 09/02/2024 12:42 PM FORMING DEPARTMENT SUPERVISOR EXAMINATION: 1. MRI right shoulder without contrast [...] Ankle Right 2 Views (09/01/2024 9:33 PM FORMING DEPARTMENT SUPERVISOR) Anatomical Region Laterality Modality Lower Extremities, Ankle Right Compute d Radiography 09/02/2024 8:13 AM FORMING DEPARTMENT SUPERVISOR Impressions 09/02/2024 8:13 AM FORMING DEPARTMENT SUPERVISOR There is mild swelling about the right ankle. There is a fracture of the base of 5th metacarpal, similar to prior. No additional fractures. The joints are normal. Electronically signed by: Brice Mantilla M.D. Narrative 09/02/2024 8:13 AM FORMING DEPARTMENT SUPERVISOR EXAMINATION: XR ANKLE RIGHT 2 VIEWS HISTORY: pain COMPARISON: 08/31/2024 Procedure Note Brice Mantilla MD - 09/02/2024 EXAMINATION: XR ANKLE RIGHT 2 VIEWS HISTORY: pain COMPARISON: 08/31/2024 IMPRESSION: There is mild swelling about the right ankle. There is a fracture of the base of 5th metacarpal, similar to prior. No additional fractures. The joints are normal. Electronically signed by: Brice Mantilla M.D. Tl Luna MD IMG XR PROCEDURES Final R esult * XR Tibia Fibula Right 2 views (09/01/2024 8:37 AM FORMING DEPARTMENT SUPERVISOR) Anatomical Region Laterality Modality Lower Extremities, Lower Leg Right Com puted Radiography 09/01/2024 8:45 AM FORMING DEPARTMENT SUPERVISOR Impressions 09/01/2024 8:45 AM FORMING DEPARTMENT SUPERVISOR No acute fracture of the tibia or fibula. Alignment is normal. Electronically signed by: Greg Joy M.D. Narrative 09/01/2024 8:45 AM FORMING DEPARTMENT SUPERVISOR EXAMINATION: XR TIBIA FIBULA RIGHT2 VIEWS HISTORY: [...] 3 or More Views (08/31/2024 10:35 PM FORMING DEPARTMENT SUPERVISOR) Anatomical Region Laterality Modality Lower Extremities, Ankle Right Compute d Radiography 09/01/2024 11:1 6 AM FORMING DEPARTMENT SUPERVISOR Impressions 09/01/2024 11:16 AM FORMING DEPARTMENT SUPERVISOR Comparison is made to a prior study [...] Ness Liz M.D. Narrative 09/01/2024 11:16 AM FORMING DEPARTMENT SUPERVISOR EXAMINATION: XR ANKLE RIGHT 3 OR MORE [...] by: Ness Liz M.D. Bong Aguilera MD IMG XR PROCEDURES Final Res ult * XR Foot Right 3 or More Views (08/31/2024 10:34 PM FORMING DEPARTMENT SUPERVISOR) Anatomical Region Laterality Modality Lower Extremities, Foot Right Computed Radiography 09/01/2024 11:1 6 AM FORMING DEPARTMENT SUPERVISOR Impressions 09/01/2024 11:16 AM FORMING DEPARTMENT SUPERVISOR Comparison is made to a prior study [...] Ness Liz M.D. Narrative 09/01/2024 11:16 AM FORMING DEPARTMENT SUPERVISOR EXAMINATION: XR ANKLE RIGHT 3 OR MORE [...] Sepsis Lactate w/ Reflex (08/23/2024 2:33 AM FORMING DEPARTMENT SUPERVISOR) Sepsis Lactate 0.7 0.7 - 2.0 mmol/L Blood 08/23/2024 2:33 AM FORMING DEPARTMENT SUPERVISOR 08/23/2024 2:46 AM FORMING DEPARTMENT SUPERVISOR Salena Crawley MD LAB BLOOD ORDERABLES Fin al Result [facility] [address] Department [place] [address] * eGFR (08/23/2024 2:33 AM FORMING DEPARTMENT SUPERVISOR) eGFR >90 >=60 mL/min/1. 73 m2 Comment: [...] last reviewed 2021. Blood 08/23/2024 2:33 AM FORMING DEPARTMENT SUPERVISOR 08/23/2024 3:24 AM FORMING DEPARTMENT SUPERVISOR us Salena Crawley MD LAB BLOOD ORDERABLES Fin al Result [facility] [address] Department [place] [address] * Differential, auto (08/23/2024 2:33 AM FORMING DEPARTMENT SUPERVISOR) Neutrophil abs 3.1 1.5 - 6.5 K/cumm Imm gran abs 0.0 0.0 - 0.1 K/cumm [facility] Lymphocyte abs 2.0 0.8 - 3.3 K/cumm [facility] Monocyte abs 0.5 0.2 - 0.8 K/cumm [facility] Eosinophil abs 0.2 0.0 - 0.5 K/cumm [facility] Basophil abs 0.1 0.0 - 0.1 K/cumm [facility] Neutrophil pct 53.2 % [facility] Comment: Interpretive Data Percent cell count reference ranges are not reported, since discordance with absolute values may lead to misinterpretation of CBC data. Current Interpretive Data was last revised on 2017. Imm gran pct 0.2 % [facility] Comment: Interpretive Data Percent cell count reference ranges are not reported, since discordance with absolute values may lead to misinterpretation of CBC data. Current Interpretive Data was last revised on 2017. Lymphocyte pct 34.0 % [facility] Comment: Interpretive Data Percent cell count reference ranges are not reported, since discordance with absolute values may lead to misinterpretation of CBC data. Current Interpretive Data was last revised on 2017. Monocyte pct 7.8 % [facility] Comment: Interpretive Data Percent cell count reference ranges are not reported, since discordance with absolute values may lead to misinterpretation of CBC data. Current Interpretive Data was last revised on 2017. Eosinophil pct 3.8 % [facility] Comment: Interpretive Data Percent cell count reference ranges are not reported, since discordance with absolute values may lead to misinterpretation of CBC data. Current Interpretive Data was last revised on 2017. Basophil pct 1.0 % [facility] Comment: Interpretive Data Percent cell count reference ranges are not reported, since discordance with absolute values may lead to misinterpretation of CBC data. Current Interpretive Data was last revised on 2017. Blood 08/23/2024 2:33 AM FORMING DEPARTMENT SUPERVISOR 08/23/2024 3:24 AM FORMING DEPARTMENT SUPERVISOR Salena Crawley MD LAB BLOOD ORDERABLES Fin al Result [facility] [address] Department of Laboratories [place], [place] [id number] * Pro B-type natriuretic peptide (08/23/2024 2:33 AM FORMING DEPARTMENT SUPERVISOR) NT-proBNP <36 <=300 pg/mL Comment: Interpretive Comments: [...] Revised Date: 2018. Blood 08/23/2024 2:33 AM FORMING DEPARTMENT SUPERVISOR 08/23/2024 3:24 AM FORMING DEPARTMENT SUPERVISOR Salena Crawley MD LAB BLOOD ORDERABLES Fin al Result Performing Organization Address [facility]/ZIP Co de Phone Number [facility] [address] [place] [place] [place] [address] * (ABNORMAL) CBC with auto differential (08/23/2024 2:33 AM FORMING DEPARTMENT SUPERVISOR) WBC 5.8 3.8 - 9.9 K/cumm Hgb 12.9(L) 13.0 - 17.5 g/dL [facility] Hct 39.2 38.9 - 50.3 % [facility] Plt 205 150 - 400 K/cumm [facility] MPV 10.8 9.1 - 12.3 fL [facility] RBC 4.39 4.30 - 5.80 M/cumm [facility] MCV 89.3 81.3 - 96.4 fL [facility] MCH 29.4 27.1 - 33.3 pg [facility] MCHC 32.9 32.3 - 35.7 g/dL [facility] RDW CV 12.8 11.1 - 14.9 % [facility] RDW SD 41.8 35.7 - 48.1 fL [facility] NRBC abs 0.00 0.00 - 0.01 K/cumm [facility] Blood 08/23/2024 2:33 AM FORMING DEPARTMENT SUPERVISOR 08/23/2024 3:24 AM FORMING DEPARTMENT SUPERVISOR Salena Crawley MD LAB BLOOD ORDERABLES Fin al Result Performing Organization Address City/[facility]/ZIP Co de Phone Number [facility] [address] Department [employer] [place], [place] [id number] * Blood culture Blood (08/23/2024 2:33 AM FORMING DEPARTMENT SUPERVISOR) Report Final Report: No growth Blood 08/23/2024 2:33 AM FORMING DEPARTMENT SUPERVISOR 08/23/2024 2:47 AM FORMING DEPARTMENT SUPERVISOR [facility]ative [facility] - 08/28/2024 7:01 AM FORMING DEPARTMENT SUPERVISOR From a different site than #1. Collection->Peripheral [...] organism identification may be performed using the [email or web address] Blood Culture Identification panel. This assay detects microbial DNA in a blood culture broth. This assay has been cleared by the [place] Food and Drug Administration and its performance characteristics have been verified by the [facility]. Interpretive data was last revised on September 03, 2022. Result [facility] Salena Crawley MD LAB MICROBIOLOGY - GENER AL ORDERABLES Final Result [facility] [address] Department [place] [address] * Blood culture Blood (08/23/2024 2:33 AM FORMING DEPARTMENT SUPERVISOR) Report Final Report: No growth Blood 08/23/2024 2:33 AM FORMING DEPARTMENT SUPERVISOR 08/23/2024 2:48 AM FORMING DEPARTMENT SUPERVISOR [facility]ative [facility] - 08/28/2024 7:01 AM FORMING DEPARTMENT SUPERVISOR Collection->Peripheral Interpretive Data 1. Blood cultures are incubated and monitored continuously for 5 days (120 hours). The first negative report is issued within 24 hours of receipt in the laboratory. 2. All positive cultures are resulted and called to physicians/care providers as soon as they are detected. 3. A rapid molecular test for organism identification may be performed using the [email or web address] Blood Culture Identification panel. This assay detects microbial DNA in a blood culture broth. This assay has been cleared by the [place] Food and Drug Administration and its performance characteristics have been verified by the [facility]. Interpretive data was last revised on September 03, 2022. Salena Crawley MD LAB MICROBIOLOGY - GENER AL ORDERABLES Final Result Performing Organization Address [facility]/ZIP Co de Phone Number [facility] [address] Department [place] [address] * (ABNORMAL) Comprehensive metabolic panel (08/23/2024 2:33 AM FORMING DEPARTMENT SUPERVISOR) Sodium 140 135 - 145 mmol/L Potassium, pl 3.9 3.3 - 4.9 mmol/L [facility] Chloride 104 97 - 110 mmol/L [facility] CO2 25 22 - 32 mmol/L [facility] Anion gap 11 2 - 15 mmol/L [facility] BUN 24 6 - 25 mg/dL [facility] Creatinine 0.82 0.80 - 1.30 mg/dL [facility] Glucose 83 70 - 199 mg/dL [facility] Comment: Interpretive Data Fasting glucose >/= [...] 2022. Calcium 9.3 8.5 - 10.3 mg/dL [facility] Bilirubin, total 0.6 0.1 - 1.2 mg/dL [facility] Protein, pl 6.9 6.5 - 8.5 g/dL [facility] Albumin 4.0 3.5 - 5.0 g/dL [facility] Alk phos 70 40 - 130 Units/L [facility] ALT 65(H) 7 - 55 Units/L [facility] AST 30 10 - 50 Units/L [facility] Comment:Slightly Hemolyzed S pecimen Blood 08/23/2024 2:33 AM FORMING DEPARTMENT SUPERVISOR 08/23/2024 3:24 AM FORMING DEPARTMENT SUPERVISOR Salena Crawley MD LAB BLOOD ORDERABLES Fin al Result Performing Organization Address [facility]/State/ZIP Co de Phone Number [facility] [address] Department [place] [address] * ECG 12 lead (08/23/2024 2:32 AM FORMING DEPARTMENT SUPERVISOR) 08/23/2024 2:32 AM FORMING DEPARTMENT SUPERVISOR Narrative [facility] - 08/24/2024 4:38 PM FORMING DEPARTMENT SUPERVISOR Vent Rate: 64 bpm RR Interval: 935 msec [place] Interval: 174 msec QRS Duration: 109 msec QT Interval: 409 msec QTC Interval: 418 msec P-R-T [place]: 68 - 81 - 41 degrees IMPRESSION: SINUS RHYTHM NORMAL ECG Electronically Signed By: Andrea Moralez MD [facility] us Salena Crawley MD ECG ORDERABLES Final Re sult Performing Organization Address [facility] Co de Phone Number [facility] * eGFR (08/21/2024 12:35 AM FORMING DEPARTMENT SUPERVISOR) eGFR >90 >=60 mL/min/1. 73 m2 Comment: [...] reviewed 2021. Blood 08/21/2024 12:3 5 AM FORMING DEPARTMENT SUPERVISOR 08/21/2024 12:40 AM FORMING DEPARTMENT SUPERVISOR us Magalis MARQUES LAB BLOOD ORDERABLE S Final Result [address] Department [place] [address] * Differential, auto (08/21/2024 12:35 AM FORMING DEPARTMENT SUPERVISOR) Neutrophil abs 3.7 1.5 - 6.5 K/cumm Imm gran abs 0.0 0.0 - 0.1 K/cumm [facility] Lymphocyte abs 2.2 0.8 - 3.3 K/cumm [facility] Monocyte abs 0.6 0.2 - 0.8 K/cumm [facility] Eosinophil abs 0.3 0.0 - 0.5 K/cumm [facility] Basophil abs 0.1 0.0 - 0.1 K/cumm [facility] Neutrophil pct 54.1 % [facility] Comment: Interpretive Data Percent cell count reference ranges are not reported, since discordance with absolute values may lead to misinterpretation of CBC data. Current Interpretive Data was last revised on 2017. Imm gran pct 0.1 % [facility] Comment: Interpretive Data Percent cell count reference ranges are not reported, since discordance with absolute values may lead to misinterpretation of CBC data. Current Interpretive Data was last revised on 2017. Lymphocyte pct 32.5 % [facility] Comment: Interpretive Data Percent cell count reference ranges are not reported, since discordance with absolute values may lead to misinterpretation of CBC data. Current Interpretive Data was last revised on 2017. Monocyte pct 8.3 % [facility] Comment: Interpretive Data Percent cell count reference ranges are not reported, since discordance with absolute values may lead to misinterpretation of CBC data. Current Interpretive Data was last revised on 2017. Eosinophil pct 4.3 % [facility] Comment: Interpretive Data Percent cell count reference ranges are not reported, since discordance with absolute values may lead to misinterpretation of CBC data. Current Interpretive Data was last revised on 2017. Basophil pct 0.7 % [facility] Comment: Interpretive Data Percent cell count reference ranges are not reported, since discordance with absolute values may lead to misinterpretation of CBC data. Current Interpretive Data was last revised on 2017. Blood 08/21/2024 12:3 5 AM FORMING DEPARTMENT SUPERVISOR 08/21/2024 12:40 AM FORMING DEPARTMENT SUPERVISOR Magalis MARQUES LAB BLOOD ORDERABLE S Final Result Performing Organization Address City/[facility]/ZIP Co de Phone Number [address] [place] [address] * (ABNORMAL) CBC with auto differential (08/21/2024 12:35 AM FORMING DEPARTMENT SUPERVISOR) Pathologist [facility] WBC 6.9 3.8 - 9.9 K/cumm Hgb 12.1(L) 13.0 - 17.5 g/dL [facility] Hct 36.8(L) 38.9 - 50.3 % [facility] Plt 200 150 - 400 K/cumm [facility] MPV 10.1 9.1 - 12.3 fL [facility] RBC 4.14(L) 4.30 - 5.80 M/cumm [facility] MCV 88.9 81.3 - 96.4 fL [facility] MCH 29.2 27.1 - 33.3 pg [facility] MCHC 32.9 32.3 - 35.7 g/dL [facility] RDW CV 12.8 11.1 - 14.9 % [facility] RDW SD 41.5 35.7 - 48.1 fL [facility] NRBC abs 0.00 0.00 - 0.01 K/cumm [facility] Blood 08/21/2024 12:3 5 AM FORMING DEPARTMENT SUPERVISOR 08/21/2024 12:40 AM FORMING DEPARTMENT SUPERVISOR Magalis MARQUES LAB BLOOD ORDERABLE S Final Result [address] [place] [address] * Erythrocyte sedimentation rate (08/21/2024 12:35 AM FORMING DEPARTMENT SUPERVISOR) [facility] Erythrocyte sedimentation rate 5 1 - 15 mm/hr [facility] Blood 08/21/2024 12:3 5 AM FORMING DEPARTMENT SUPERVISOR 08/21/2024 12:40 AM FORMING DEPARTMENT SUPERVISOR Magalis Alcantar Willy [place] LAB BLOOD ORDERABLE S Final Result Performing Organization Address City/[facility]/ZIP Co de Phone Number [address] Department [place] [address] * CRP (acute phase) (08/21/2024 12:35 AM FORMING DEPARTMENT SUPERVISOR) [facility] CRP <3.5 <=10.0 mg/L Blood 08/21/2024 12:3 5 AM FORMING DEPARTMENT SUPERVISOR 08/21/2024 12:40 AM FORMING DEPARTMENT SUPERVISOR Magalis Aguilera [place] LAB BLOOD ORDERABLE S Final Result Performing Organization Address [facility] Co de Phone Number [address] [address] * (ABNORMAL) Basic metabolic panel (08/21/2024 12:35 AM FORMING DEPARTMENT SUPERVISOR) [facility] Sodium 140 135 - 145 mmol/L Potassium, pl 4.2 3.3 - 4.9 mmol/L [facility] Chloride 104 97 - 110 mmol/L [facility] CO2 26 22 - 32 mmol/L [facility] Anion gap 10 2 - 15 mmol/L [facility] BUN 34(H) 6 - 25 mg/dL [facility] Creatinine 0.91 0.80 - 1.30 mg/dL [facility] Glucose 96 70 - 199 mg/dL [facility] Comment: Interpretive Data Fasting glucose >/= 126 [...] 2022. Calcium 9.1 8.5 - 10.3 mg/dL [facility] Blood 08/21/2024 12:3 5 AM FORMING DEPARTMENT SUPERVISOR 08/21/2024 12:40 AM FORMING DEPARTMENT SUPERVISOR Magalis MARQUES LAB BLOOD ORDERABLE S Final Result [facility] Department [place] [address] * Streptococcus Group A PCR Throat (08/20/2024 9:19 AM FORMING DEPARTMENT SUPERVISOR) Strep A DNA Not Detected Not Detected Comment: This test is performed using the [employer] Xpert Group A Streptococcal Assay. This is [...] the performing laboratory. Throat 08/20/2024 9:19 AM FORMING DEPARTMENT SUPERVISOR 08/20/2024 9:22 AM FORMING DEPARTMENT SUPERVISOR Fei Murray MD LAB MICROBIOLOGY - GENERAL ORDERABLES Final Result [facility] [address] Department of Laboratories [place], [place] [id number] [place] * Respiratory pathogen panel Nasopharyngeal (08/20/2024 9:19 AM FORMING DEPARTMENT SUPERVISOR) Influenza A RNA Not Detected Not Detected Influenza B RNA Not Detected Not Detected [facility] RSV RNA Not Detected Not Detected [facility] COVID-19 RNA Not Detected Not Detected [facility] Coronavirus 229E RNA Not Detected Not Detected [facility] Coronavirus HKU1 RNA Not Detected Not Detected [facility] Coronavirus NL63 RNA Not Detected Not Detected [facility] Coronavirus OC43 RNA Not Detected Not Detected [facility] Adenovirus DNA Not Detected Not Detected [facility] Metapneumovirus RNA Not Detected Not Detected [facility] Rhinovirus/Enterov irus RNA Not Detected Not Detected [facility] Parainfluenza 1 RNA Not Detected Not Detected [facility] Parainfluenza 2 RNA Not Detected Not Detected [facility] Parainfluenza 3 RNA Not Detected Not Detected [facility] Parainfluenza 4 RNA Not Detected Not Detected [facility] B. pertussis DNA Not Detected Not Detected [facility] B. parapertussis DNA Not Detected Not Detected [facility] C. pneumoniae DNA Not Detected Not Detected [facility] M. pneumoniae DNA Not Detected Not Detected [facility] Comment: Interpretive Data The [employer] FilmArray Respiratory Panel (RP2.1) assay is a [...] assay has FDA clearance for testing of TECHNICAL PROGRAM MANAGER swabs. The performance characteristics of this assay have been determined by [facility]. Current interpretive data was last revised on 2021. Nasopharyngeal 08/20/2024 9: 19 AM FORMING DEPARTMENT SUPERVISOR 08/20/2024 9:22 AM FORMING DEPARTMENT SUPERVISOR Narrative JADA - 08/20/2024 10:22 AM FORMING DEPARTMENT SUPERVISOR Is the Patient experiencing symptoms consistent with COVID?->Yes Surveillance testing for transplant patient?->No Fei Murray MD LAB MICROBIOLOGY - GENERAL ORDERABLES Final Result [facility] [address] Department [place] [address] * (ABNORMAL) D-dimer, quantitative (08/15/2024 1:08 AM FORMING DEPARTMENT SUPERVISOR) D-Dimer 647(H) <=499 ng/mL FEU Comment: Interpretive [...] 68, VTE cut-off 680 ng/ml FEU. References; Owen HT et al. Brit Med J. 2013;346:f2492. Carlitos et al. Annals Int Med. 2015;163:701-11. Current interpretive data was last revised on 2019. Blood 08/15/2024 1:08 AM FORMING DEPARTMENT SUPERVISOR 08/15/2024 1:11 AM FORMING DEPARTMENT SUPERVISOR Maddison Muhammad NP LAB BLOOD ORDERABLES Final Resul t Performing Organization Address [facility] Co de Phone Number [facility] [address] [facility] trend.ly [place], [place] [id number] * eGFR (08/14/2024 9:59 PM FORMING DEPARTMENT SUPERVISOR) eGFR >90 >=60 mL/min/1. 73 m2 Comment: [...] last reviewed 2021. Blood 08/14/2024 9:59 PM FORMING DEPARTMENT SUPERVISOR 08/14/2024 10:10 PM FORMING DEPARTMENT SUPERVISOR Abigail Richards MD LAB BLOOD ORDERABLES Final Result Performing Organization Address City/[facility]/ZIP Co de Phone Number [facility] [address] [facility] [place] [address] * Differential, auto (08/14/2024 9:59 PM FORMING DEPARTMENT SUPERVISOR) Neutrophil abs 3.7 1.5 - 6.5 K/cumm Imm gran abs 0.0 0.0 - 0.1 K/cumm [facility] Lymphocyte abs 2.0 0.8 - 3.3 K/cumm [facility] Monocyte abs 0.5 0.2 - 0.8 K/cumm [facility] Eosinophil abs 0.2 0.0 - 0.5 K/cumm [facility] Basophil abs 0.1 0.0 - 0.1 K/cumm [facility] Neutrophil pct 57.5 % [facility] Comment: Interpretive Data Percent cell count reference ranges are not reported, since discordance with absolute values may lead to misinterpretation of CBC data. Current Interpretive Data was last revised on 2017. Imm gran pct 0.2 % [facility] Comment: Interpretive Data Percent cell count reference ranges are not reported, since discordance with absolute values may lead to misinterpretation of CBC data. Current Interpretive Data was last revised on 2017. Lymphocyte pct 30.2 % [facility] Comment: Interpretive Data Percent cell count reference ranges are not reported, since discordance with absolute values may lead to misinterpretation of CBC data. Current Interpretive Data was last revised on 2017. Monocyte pct 7.6 % [facility] Comment: Interpretive Data Percent cell count reference ranges are not reported, since discordance with absolute values may lead to misinterpretation of CBC data. Current Interpretive Data was last revised on 2017. Eosinophil pct 3.4 % [facility] Comment: Interpretive Data Percent cell count reference ranges are not reported, since discordance with absolute values may lead to misinterpretation of CBC data. Current Interpretive Data was last revised on 2017. Basophil pct 1.1 % [facility] Comment: Interpretive Data Percent cell count reference ranges are not reported, since discordance with absolute values may lead to misinterpretation of CBC data. Current Interpretive Data was last revised on 2017. Blood 08/14/2024 9:59 PM FORMING DEPARTMENT SUPERVISOR 08/14/2024 10:10 PM FORMING DEPARTMENT SUPERVISOR us Abigail Richards MD LAB BLOOD ORDERABLES Final Result [facility]ADA [facility] [address] [facility] [place] [address] * Pro B-type natriuretic peptide (08/14/2024 9:59 PM FORMING DEPARTMENT SUPERVISOR) NT-proBNP 75 <=300 pg/mL Comment: Interpretive Comments: [...] Revised Date: 2018. Blood 08/14/2024 9:59 PM FORMING DEPARTMENT SUPERVISOR 08/14/2024 10:10 PM FORMING DEPARTMENT SUPERVISOR us Abigail Richards MD LAB BLOOD ORDERABLES Final Result [facility] [address] [facility] [place] [address] * CBC with auto differential (08/14/2024 9:59 PM FORMING DEPARTMENT SUPERVISOR) Pathologist [facility] WBC 6.5 3.8 - 9.9 K/cumm Hgb 13.3 13.0 - 17.5 g/dL [facility] Hct 39.8 38.9 - 50.3 % [facility] Plt 218 150 - 400 K/cumm [facility] MPV 10.0 9.1 - 12.3 fL [facility] RBC 4.49 4.30 - 5.80 M/cumm [facility] MCV 88.6 81.3 - 96.4 fL [facility] MCH 29.6 27.1 - 33.3 pg [facility] MCHC 33.4 32.3 - 35.7 g/dL [facility] RDW CV 12.7 11.1 - 14.9 % [facility] RDW SD 41.1 35.7 - 48.1 fL [facility] NRBC abs 0.00 0.00 - 0.01 K/cumm [facility] Blood (Blood, Venous) 08/14/2024 9:59 PM FORMING DEPARTMENT SUPERVISOR 08/14/2024 10:10 PM FORMING DEPARTMENT SUPERVISOR Abigail Richards MD LAB BLOOD ORDERABLES Final Result Performing Organization Address [facility] Co de Phone Number [facility] [address] [facility] [place] [address] * Lipase (08/14/2024 9:59 PM FORMING DEPARTMENT SUPERVISOR) Pathologist [facility] Lipase 50 10 - 99 Units/L Blood (Blood, Venous) 08/14/2024 9:59 PM FORMING DEPARTMENT SUPERVISOR 08/14/2024 10:10 PM FORMING DEPARTMENT SUPERVISOR Abigail Richards MD LAB BLOOD ORDERABLES Final Result Performing Organization Address [facility] Co de Phone Number [facility] [address] [facility] [place] [address] * (ABNORMAL) Comprehensive metabolic panel (08/14/2024 9:59 PM FORMING DEPARTMENT SUPERVISOR) Sodium 139 135 - 145 mmol/L Potassium, pl 3.9 3.3 - 4.9 mmol/L [facility] Chloride 101 97 - 110 mmol/L [facility] CO2 27 22 - 32 mmol/L [facility] Anion gap 11 2 - 15 mmol/L [facility] BUN 25 6 - 25 mg/dL [facility] Creatinine 0.90 0.80 - 1.30 mg/dL [facility] Glucose 92 70 - 199 mg/dL [facility] Comment: Interpretive Data Fasting glucose >/= 126 [...] Units/L [facility] Blood 08/14/2024 9:59 PM FORMING DEPARTMENT SUPERVISOR 08/14/2024 10:10 PM FORMING DEPARTMENT SUPERVISOR us Abigail Richards MD LAB BLOOD ORDERABLES Final Result [facility] [address] [facility] Department [place] [address] * TRANSTHORACIC ECHO (TTE) COMPLETE W DOPPLER/CF WO CONTRAST (08/14/2024 11:39 AM FORMING DEPARTMENT SUPERVISOR) LV EF 55-60 % CONS SCIMAGE Anatomical Region Laterality Modality Ultrasound 08/14/2024 10:0 7 AM FORMING DEPARTMENT SUPERVISOR Narrative 08/14/2024 11:49 AM FORMING DEPARTMENT SUPERVISOR [facility] [address] [place] [address] ECHOCARDIOGRAM Patient Name: LISA MCCOY : 1980 (43y 11m) Gender: M Study Date: 08/14/2024 10:07:30 AM Ht(Inch): 68 Wt(Lb): 173.06 BSA: 1.94 High Risk Ob: NINFA Location: [address] Order Provider: PHOEBE ADKINS BMI: 26.31 [...] Jerel Ramirez MD PhD 08/14/2024 11:48:00 AM FORMING DEPARTMENT SUPERVISOR Procedure Note Jerel Ramirez MD PhD - 08/14/2024 [place] [address] [place] [address] ECHOCARDIOGRAM Patient Name: LISA MCCOY : 1980 (43y 11m) Gender: M Study Date: 08/14/2024 10:07:30 AM Ht(Inch): 68 Wt(Lb): 173.06 BSA: 1.94 High Risk Ob: NINFA Location: [id number] Order Provider: PHOEBE ADKINS BMI: 26.31 BP: [...] Jerel Ramirez MD PhD 08/14/2024 11:48:00 AM FORMING DEPARTMENT SUPERVISOR us Phoebe Adkins MD CV ECHO PROCEDURES Final Result * eGFR (08/13/2024 5:30 AM FORMING DEPARTMENT SUPERVISOR) eGFR >90 >=60 mL/min/1. 73 m2 Comment: [...] last reviewed 2021. Blood 08/13/2024 5:30 AM FORMING DEPARTMENT SUPERVISOR 08/13/2024 6:25 AM FORMING DEPARTMENT SUPERVISOR us Phoebe Adkins MD LAB BLOOD ORDERABLES Final Resul t [facility] [address] Department [place] [address] * (ABNORMAL) CBC without differential (08/13/2024 5:30 AM FORMING DEPARTMENT SUPERVISOR) WBC 5.7 3.8 - 9.9 K/cumm Hgb 11.9(L) 13.0 - 17.5 g/dL [facility] Hct 36.4(L) 38.9 - 50.3 % [facility] Plt 186 150 - 400 K/cumm [facility] MPV 10.6 9.1 - 12.3 fL [facility] RBC 4.01(L) 4.30 - 5.80 M/cumm [facility] MCV 90.8 81.3 - 96.4 fL [facility] MCH 29.7 27.1 - 33.3 pg [facility] MCHC 32.7 32.3 - 35.7 g/dL [facility] RDW CV 13.0 11.1 - 14.9 % [facility] RDW SD 43.0 35.7 - 48.1 fL [facility] NRBC abs 0.00 0.00 - 0.01 K/cumm [facility] Blood 08/13/2024 5:30 AM FORMING DEPARTMENT SUPERVISOR 08/13/2024 6:25 AM FORMING DEPARTMENT SUPERVISOR us Phoebe Adkins MD LAB BLOOD ORDERABLES Final Resul t Performing Organization Address City/[facility]/ZIP Co de Phone Number [facility] [address] [facility] [place] [address] * Phosphorus (08/13/2024 5:30 AM FORMING DEPARTMENT SUPERVISOR) Phosphorus, pl 2.9 2.3 - 4.5 mg/dL Blood 08/13/2024 5:30 AM FORMING DEPARTMENT SUPERVISOR 08/13/2024 6:25 AM FORMING DEPARTMENT SUPERVISOR us Phoebe Adkins MD LAB BLOOD ORDERABLES Final Resul t Performing Organization Address City/[facility] Co de Phone Number [facility] [address] [place] [address] * Magnesium (08/13/2024 5:30 AM FORMING DEPARTMENT SUPERVISOR) Magnesium 1.9 1.4 - 2.5 mg/dL Blood 08/13/2024 5:30 AM FORMING DEPARTMENT SUPERVISOR 08/13/2024 6:25 AM FORMING DEPARTMENT SUPERVISOR us Phoebe Adkins MD LAB BLOOD ORDERABLES Final Resul t Performing Organization Address City/[facility] Co de Phone Number [facility] [address] [facility] [place] [address] * Ferritin (08/13/2024 5:30 AM FORMING DEPARTMENT SUPERVISOR) Ferritin 39 30 - 400 ng/mL Blood 08/13/2024 5:30 AM FORMING DEPARTMENT SUPERVISOR 08/13/2024 6:24 AM FORMING DEPARTMENT SUPERVISOR Phoebe Adkins MD LAB BLOOD ORDERABLES Final Resul t Performing Organization Address [facility] Co de Phone Number [facility] [address] [facility] [place], [place] [id number] * (ABNORMAL) Hepatic function panel (08/13/2024 5:30 AM FORMING DEPARTMENT SUPERVISOR) Bilirubin, total 0.4 0.1 - 1.2 mg/dL Bilirubin, direct <0.2 0.1 - 0.3 mg/dL [facility] Protein, pl 5.9(L) 6.5 - 8.5 g/dL [facility] Albumin 3.5 3.5 - 5.0 g/dL [facility] Alk phos 71 40 - 130 Units/L [facility] ALT 200(H) 7 - 55 Units/L [facility] AST 101(H) 10 - 50 Units/L [facility] Blood 08/13/2024 5:30 AM FORMING DEPARTMENT SUPERVISOR 08/13/2024 6:25 AM FORMING DEPARTMENT SUPERVISOR Russ Adkins MD LAB BLOOD ORDERABLES Final Resul t Performing Organization Address [facility] Co de Phone Number [facility] [address] [employer] [address] * (ABNORMAL) Basic metabolic panel (08/13/2024 5:30 AM FORMING DEPARTMENT SUPERVISOR) Sodium 140 135 - 145 mmol/L Potassium, pl 4.1 3.3 - 4.9 mmol/L [facility] Chloride 106 97 - 110 mmol/L [facility] CO2 24 22 - 32 mmol/L [facility] Anion gap 10 2 - 15 mmol/L [facility] BUN 23 6 - 25 mg/dL [facility] Creatinine 0.82 0.80 - 1.30 mg/dL [facility] Glucose 87 70 - 199 mg/dL [facility] Comment: Interpretive Data Fasting glucose >/= [...] 2022. Calcium 8.1(L) 8.5 - 10.3 mg/dL [facility] Blood 08/13/2024 5:30 AM FORMING DEPARTMENT SUPERVISOR 08/13/2024 6:25 AM FORMING DEPARTMENT SUPERVISOR us Phoebe Adkins MD LAB BLOOD ORDERABLES Final Resul t [facility] [address] Department [place] [address] * Drugs of Abuse Screen, Urine with Reflex Confirmation (08/13/2024 12:15 AM FORMING DEPARTMENT SUPERVISOR) Amphetamine, ur Not Detected CutOff 500ng/mL Comment: Interpretive Data - Amphetamines: Samples containing greater than 500 ng/mL d-methamphetamine or other cross-reacting amphetamine compounds are reported as positive. Amphetamine immunoassays are subject to significant false positive rates due to cross-reactivity of non-amphetamine drugs. Confirmatory testing required for definitive results. Current Interpretive Data was last reviewed 2023. Barbiturates, ur Not Detected CutOff 200ng/mL [facility] Comment: Interpretive Data - Barbiturates: Samples containing greater than 200 ng/mL secobarbital or other cross-reacting barbiturate compounds are reported as positive. False positive and false negative results are possible. Confirmatory testing required for definitive results. Current Interpretive Data was last reviewed 2023. Benzodiazepines, ur Not Detected CutOff 100ng/mL [facility] Comment: Interpretive Data - Benzodiazepines: Samples containing greater than 100 ng/mL nordiazepam or other cross-reacting compounds are reported as positive. False positive and false negative results are possible. Confirmatory testing required for definitive results. Current Interpretive Data was last reviewed 2023. Cannabinoids, ur Not Detected CutOff 50 ng/mL [facility] Comment: Interpretive Data - Cannabinoids: Samples containing greater than 50 ng/mL delta-9 THC -COOH or other cross- reacting compounds are reported as positive. False positive and false negative results are possible. Confirmatory testing required for definitive results. Current Interpretive Data was last reviewed 2023. Cocaine, ur Not Detected CutOff 150ng/mL [facility] Comment: Interpretive Data - Cocaine: Samples containing greater than 150 ng/mL benzoylecgonine or other cross- reacting compounds are reported as positive. False positive and false negative results are possible. Confirmatory testing required for definitive results. Current Interpretive Data was last reviewed 2023. Fentanyl, Ur Not Detected CutOff 5 ng/mL [facility] Comment: Interpretive Data - Fentanyl: Samples containing greater than 5 ng/mL norfentanyl, fentanyl, or other cross-reacting fentanyl compounds are reported as positive. False positive and false negative results are possible. Confirmatory testing required for definitive results. Current Interpretive Data was last reviewed 2023. Methadone, ur Not Detected CutOff 300ng/mL [facility] Comment: Interpretive Data - Methadone: Samples containing greater than 300 ng/mL d,l-methadone or other cross-reacting compounds are reported as positive. False positive and false negative results are possible. Confirmatory testing required for definitive results. Current Interpretive Data was last reviewed 2023. Opiates, ur Not Detected CutOff 300ng/mL [facility] Comment: Interpretive Data - Opiates: Samples containing greater than 300 ng/mL morphine or other cross-reacting compounds are reported as positive. False positive and false negative results are possible. Confirmatory testing required for definitive results. Current Interpretive Data was last reviewed 2023. Oxycodone, ur Not Detected CutOff 100ng/mL [facility] Comment: Interpretive Data - Oxycodone: Samples containing greater than 100 ng/mL oxycodone or other cross-reacting compounds are reported as positive. False positive and false negative results are possible. Confirmatory testing required for definitive results. Current Interpretive Data was last reviewed 2023. Phencyclidine, ur Not Detected CutOff 25 ng/mL [facility] Comment: Interpretive Data - Phencyclidine: Samples containing greater than 25 ng/mL phencyclidine or other cross-reacting compounds are reported as positive. False positive and false negative results are possible. Confirmatory testing required for definitive results. Current Interpretive Data was last reviewed 2023. Urine Creatinine 90 mg/dL [facility] Comment: Interpretive Data Urine Creatinine: < 10 mg/dL is extremely dilute = or > 10 but < 20 mg/dL is dilute = or > 20 mg/dL is normal Current Interpretive Data was last revised on 2017. Urine 08/13/2024 12:1 5 AM FORMING DEPARTMENT SUPERVISOR 08/13/2024 12:26 AM FORMING DEPARTMENT SUPERVISOR Narrative [facility] - 08/13/2024 12:54 AM FORMING DEPARTMENT SUPERVISOR Drug of Abuse screening is performed by immunoassay for medical purposes only. This is not to be used for Pain Management purposes. If Detected, confirmation testing will be performed for Amphetamines, Cocaine, Fentanyl, Methadone, Opiates, Oxycodone or Phencyclidine. us Batsheva Portillo MD LAB URINE ORDERABLES Final Result [facility] [address] Department [place] [address] * (ABNORMAL) Urinalysis reflex to microscopic and culture Urine (08/13/2024 12:15 AM FORMING DEPARTMENT SUPERVISOR) Color, ur Yellow Yellow Clarity, ur Clear Clear [facility] Specific gravity, ur >1.050(H) 1.003 - 1.030 [facility] pH, urine 6.5 [facility] Comment: Interpretive Data U rine pH is affected by diet, medications, systemic acid-base disturbances, and renal tubular function. pH may affect urinary stone formation. For example, urine pH below 6.0 may help reduce the tendency for calcium phosphate stones and pH greater than 6.0 may reduce the tendency for uric acid stone formation. Source: [facility] [place] Current Interpretive Data was last revised on 2017 Protein, ur ql Negative Negative [facility] Glucose, ur ql Negative Negative [facility] Ketones, ur Negative Negative [facility] Bilirubin, ur Negative Negative [facility] Blood, ur Negative Negative [facility] Urobilinogen, ur <2.0 <2.0 mg/dL [facility] Nitrite, ur Negative Negative [facility] Leukocyte esterase, ur Negative Negative [facility] UA reflex comment Reflex conditions for microscopic UA and culture not met. [facility] Urine 08/13/2024 12:1 5 AM FORMING DEPARTMENT SUPERVISOR 08/13/2024 12:15 AM FORMING DEPARTMENT SUPERVISOR us Batsheva Portillo MD LAB MICROBIOLOGY - GENERAL ORDERABLES Final Result [facility] [address] Department [place] [address] * CT Chest PE (CTA) W Contrast (08/12/2024 11:48 PM FORMING DEPARTMENT SUPERVISOR) Anatomical Region Laterality Modality Body N/A Computed Tomogra phy 08/12/2024 11:4 3 PM FORMING DEPARTMENT SUPERVISOR Impressions 08/13/2024 9:24 AM FORMING DEPARTMENT SUPERVISOR No pulmonary embolism. Electronically signed by: Tari Gavin M.D. Narrative 08/13/2024 9:24 AM FORMING DEPARTMENT SUPERVISOR EXAMINATION: CT CHEST PE (CTA) W CONTRAST [...] Lower Extremity Bilateral Complete (08/12/2024 11:46 PM FORMING DEPARTMENT SUPERVISOR) Anatomical Region Laterality Modality Vascular Bilateral Ultrasound 08/13/2024 12:0 9 PM FORMING DEPARTMENT SUPERVISOR Impressions 08/13/2024 12:09 PM FORMING DEPARTMENT SUPERVISOR 1. No evidence of DVT in the lower extremities bilaterally. 2. Pulsatile venous flow bilaterally. This may suggest increased intravascular volume or right-sided valvular heart disease. Clinical correlation suggested. 3. Prominent lymph nodes in both groins. Electronically signed by: Lv Smart M.D. Narrative 08/13/2024 12:09 PM FORMING DEPARTMENT SUPERVISOR Lower Extremity Vein Duplex Bilateral DATE: 08/12/2024 [...] ult * US RUQ (08/12/2024 11:38 PM FORMING DEPARTMENT SUPERVISOR) Anatomical Region Laterality Modality Abdomen N/A Ultrasound 08/12/2024 10:4 5 PM FORMING DEPARTMENT SUPERVISOR Impressions 08/13/2024 11:42 AM FORMING DEPARTMENT SUPERVISOR 1. Trace perihepatic ascites. 2. Pulsatile portal venous flow and dilated inferior vena cava, which may represent elevated right heart pressures and/or tricuspid regurgitation. For the purposes of quality control checker, this study was initially interpreted by teleradiology. There is no significant discrepancy. Electronically signed by: Saeid Baker MD, PHD Narrative 08/13/2024 11:42 AM FORMING DEPARTMENT SUPERVISOR EXAMINATION: LIMITED ABDOMINAL SONOGRAM HISTORY: Elevated liver [...] tricuspid regurgitation. For the purposes of quality control checker, this study was initially interpreted by teleradiology. There is no significant discrepancy. Electronically signed by: Saeid Baker MD, PHD us Batsheva Portillo MD [facility] US PROCEDURES Final Res ult * D-Dimer - Add on lab test (08/12/2024 10:29 PM FORMING DEPARTMENT SUPERVISOR) Acceptable Yes Blood 08/12/2024 10:2 9 PM FORMING DEPARTMENT SUPERVISOR 08/12/2024 10:29 PM FORMING DEPARTMENT SUPERVISOR Narrative [facility] - 08/12/2024 10:29 PM FORMING DEPARTMENT SUPERVISOR Name of Test->D-Dimer us Batsheva Portillo MD LAB BLOOD ORDERABLES Final Result [facility] [address] Department [place] [address] * CT Head and Cervical Spine WO Contrast (08/12/2024 10:20 PM FORMING DEPARTMENT SUPERVISOR) Anatomical Region Laterality Modality Head and Neck N/A Computed Tomogra phy 08/12/2024 10:1 3 PM FORMING DEPARTMENT SUPERVISOR Impressions 08/13/2024 7:02 AM FORMING DEPARTMENT SUPERVISOR CT HEAD: No acute intracranial abnormality or calvarial fracture. CT CERVICAL SPINE: 1. No acute osseous abnormality. 2. Multilevel cervical spondylosis; most pronounced at C5-C6 and C6-C7. For the purposes of quality control checker, this study was initially interpreted by teleradiology. There is no significant discrepancy. Electronically signed by: Zaheer Navas M.D. Narrative 08/13/2024 7:02 AM FORMING DEPARTMENT SUPERVISOR EXAMINATION: 1. CT head without contrast 2. [...] and C6-C7. For the purposes of quality control checker, this study was initially interpreted by teleradiology. There is no significant discrepancy. Electronically signed by: Zaheer Navas M.D. us Batsheva Portillo MD IMG CT PROCEDURES Final Res ult * Protime-INR (08/12/2024 10:05 PM FORMING DEPARTMENT SUPERVISOR) PT 12.8 9.7 - 13.0 sec INR 1.18 0.90 - 1.20 [facility] Comment: Interpretive data Oral anticoagulant therapeutic ranges: Venous thromboembolism prophylaxis or treatment: 2.0-3.0 CARDIOLOGY Standard range: 2.0-3.0 High-intensity range: 2.5-3.5 Refer to indication-specific guidelines for appropriate target ranges for prosthetic heart valve replacement. Current interpretive data was last revised on 2019. Blood 08/12/2024 10:0 5 PM FORMING DEPARTMENT SUPERVISOR 08/12/2024 10:29 PM FORMING DEPARTMENT SUPERVISOR Batsheva Portillo MD LAB BLOOD ORDERABLES Final Result [facility] [address] Department [place] [address] * (ABNORMAL) D-dimer, quantitative (08/12/2024 10:05 PM FORMING DEPARTMENT SUPERVISOR) D-Dimer 1,783(H) <=499 ng/mL FEU Comment: Interpretive [...] 68, VTE cut-off 680 ng/ml FEU. References; Schfanny GRESHAM et al. Brit Med J. 2013;346:f2492. Carlitos JOSEPH et al. Annals Int Med. 2015;163:701-11. Current interpretive data was last revised on 2019. Blood 08/12/2024 10:0 5 PM FORMING DEPARTMENT SUPERVISOR 08/12/2024 10:05 PM FORMING DEPARTMENT SUPERVISOR us Batsheva Portillo MD LAB BLOOD ORDERABLES Final Result Performing Organization Address City/[facility] Co de Phone Number [facility] [address] [facility] [place], [place] [id number] * Folate - Add on lab test (08/12/2024 9:53 PM FORMING DEPARTMENT SUPERVISOR) Acceptable Yes Blood 08/12/2024 9:53 PM FORMING DEPARTMENT SUPERVISOR 08/12/2024 9:53 PM FORMING DEPARTMENT SUPERVISOR Narrative [facility] - 08/12/2024 9:54 PM FORMING DEPARTMENT SUPERVISOR Name of Test->Folate us Batsheva Portillo MD LAB BLOOD ORDERABLES Final Result Performing Organization Address [facility] Co de Phone Number [facility] [address] [employer] [place], [place] [phone] * Vitamin B12 - Add on lab test (08/12/2024 9:53 PM FORMING DEPARTMENT SUPERVISOR) Acceptable Yes Blood 08/12/2024 9:53 PM FORMING DEPARTMENT SUPERVISOR 08/12/2024 9:54 PM FORMING DEPARTMENT SUPERVISOR Narrative [facility] - 08/12/2024 9:54 PM FORMING DEPARTMENT SUPERVISOR Name of Test->Vitamin B12 Batsheva Portillo MD LAB BLOOD ORDERABLES Final Result Performing Organization Address [facility] Co de Phone Number [facility] [address] [facility] [place], [place] [phone] * Iron profile - Add on lab test (08/12/2024 9:53 PM FORMING DEPARTMENT SUPERVISOR) Acceptable Yes Blood 08/12/2024 9:53 PM FORMING DEPARTMENT SUPERVISOR 08/12/2024 9:54 PM FORMING DEPARTMENT SUPERVISOR Narrative [facility] - 08/12/2024 9:54 PM FORMING DEPARTMENT SUPERVISOR Name of Test->Iron profile Batsheva Portillo MD LAB BLOOD ORDERABLES Final Result Performing Organization Address [facility]/ZIP Co de Phone Number [facility] [address] [facility] [place], [place] [phone] * NT-Pro BNP - Add on lab test (08/12/2024 9:53 PM FORMING DEPARTMENT SUPERVISOR) Acceptable Yes Blood 08/12/2024 9:53 PM FORMING DEPARTMENT SUPERVISOR 08/12/2024 9:53 PM FORMING DEPARTMENT SUPERVISOR Narrative [facility] - 08/12/2024 9:54 PM FORMING DEPARTMENT SUPERVISOR Name of Test->NT-Pro BNP us Batsheva Portillo MD LAB BLOOD ORDERABLES Final Result Performing Organization Address [facility] Co de Phone Number [facility] [address] [facility] [place], [place] [phone] * TSH reflex Free T4 - Add on lab test (08/12/2024 9:53 PM FORMING DEPARTMENT SUPERVISOR) Acceptable Yes Blood 08/12/2024 9:53 PM FORMING DEPARTMENT SUPERVISOR 08/12/2024 9:53 PM FORMING DEPARTMENT SUPERVISOR Narrative [facility] - 08/12/2024 9:54 PM FORMING DEPARTMENT SUPERVISOR Name of Test->TSH reflex Free T4 us Batsheva Portillo MD LAB BLOOD ORDERABLES Final Result Performing Organization Address [facility] Co de Phone Number [facility] [address] [facility] [place], [place] [phone] * Phosphorus - Add on lab test (08/12/2024 9:53 PM FORMING DEPARTMENT SUPERVISOR) Acceptable Yes Blood 08/12/2024 9:53 PM FORMING DEPARTMENT SUPERVISOR 08/12/2024 9:53 PM FORMING DEPARTMENT SUPERVISOR Narrative [facility] - 08/12/2024 9:55 PM FORMING DEPARTMENT SUPERVISOR Name of Test->Phosphorus Batsheva Portillo MD LAB BLOOD ORDERABLES Final Result Performing Organization Address [facility] Co de Phone Number [facility] [address] [place] [address] * Magnesium - Add on lab test (08/12/2024 9:53 PM FORMING DEPARTMENT SUPERVISOR) Acceptable Yes Blood 08/12/2024 9:53 PM FORMING DEPARTMENT SUPERVISOR 08/12/2024 9:53 PM FORMING DEPARTMENT SUPERVISOR Narrative [facility] - 08/12/2024 9:55 PM FORMING DEPARTMENT SUPERVISOR Name of Test->Magnesium Batsheva Portillo MD LAB BLOOD ORDERABLES Final Result Performing Organization Address [facility] Phone Number [facility] [address] [place] [address] * Troponin T high-sensitivity 2-hour (08/12/2024 9:52 PM FORMING DEPARTMENT SUPERVISOR) Pathologist [facility] Trop T hs 6 <=22 ng/L Comment: Interpretive Data For further hscTnT resources including the diagnostic algorithm and an aid in interpretation, copy and paste this link: https://nrl.testcatalog.org/show/hsTrop Current Interpretive Data last revised 2020. Trop T hs delta -1 ng/L [facility] Trop T hs interp Insignificant [facility] Blood 08/12/2024 9:52 PM FORMING DEPARTMENT SUPERVISOR 08/12/2024 10:30 PM FORMING DEPARTMENT SUPERVISOR Ace Gonzales MD LAB BLOOD ORDERABLES F inal Result Performing Organization Address [facility]/ZIP Co de Phone Number [facility] [address] Department of [place], [place] [phone] * Ethanol (08/12/2024 9:52 PM FORMING DEPARTMENT SUPERVISOR) Ethanol <10 <=10 mg/dL Comment: Interpretive Data Legal limit of intoxication > or = 80 mg/dL Levels > or = 400 mg/dL are potentially TOXIC. Current interpretive data was last revised on 2018. Blood 08/12/2024 9:52 PM FORMING DEPARTMENT SUPERVISOR 08/12/2024 10:29 PM FORMING DEPARTMENT SUPERVISOR Batsheva Portillo MD LAB BLOOD ORDERABLES Final Result Performing Organization Address [facility] Co de Phone Number [facility] [address] [employer] [address] * Hepatitis panel, acute Blood (08/12/2024 9:13 PM FORMING DEPARTMENT SUPERVISOR) Pathologist [facility] Hep A IgM Nonreactive Nonreactive Comment: Interpretive Data: If Hep A IgM Ab is reported as Equivocal, a new sample should be drawn in two weeks for testing. Current interpretive data was last revised on 19. Hep B core IgM Nonreactive Nonreactive [facility] Comment: Interpretive Data If HepB Core IgM Ab is reported as Equivocal, a new sample should be drawn in two weeks for testing. Current interpretive data was last revised on 19. Hep C Ab Nonreactive Nonreactive [facility] Comment: Interpretive Data Nonreactive: Antibodies to HCV [...] last revised on 2019. HepBsAg Nonreactive Nonreactive [facility] Blood 08/12/2024 9:13 PM FORMING DEPARTMENT SUPERVISOR 08/12/2024 9:17 PM FORMING DEPARTMENT SUPERVISOR Batsheva Portillo MD LAB MICROBIOLOGY - GENERAL ORDERABLES Final Result Performing Organization Address City/[facility]/ZIP Co de Phone Number [facility] [address] [facility] [place] [address] * Acetaminophen level (08/12/2024 9:13 PM FORMING DEPARTMENT SUPERVISOR) Pathologist [facility] Acetaminophen <5 <=5 mcg/mL Comment: Interpretive Data Significant hepatic injury may occur and treatment with n-acetyl cysteine is generally recommended if the acetaminophen level exceeds: 150 mcg/mL at 4 hours after ingestion 75 mcg/mL at 8 hours after ingestion 38 mcg/mL at 12 hours after ingestion 19 mcg/mL at 16 hours after ingestion Consult toxicology or poison control ([phone]) for unknown ingestion time. Current interpretive data was last revised 2023. Blood 08/12/2024 9:13 PM FORMING DEPARTMENT SUPERVISOR 08/12/2024 9:17 PM FORMING DEPARTMENT SUPERVISOR us Batsheva Portillo MD LAB BLOOD ORDERABLES Final Result Performing Organization Address City/[facility]/ZIP Co de Phone Number [facility] [address] [place] [address] * Troponin T high-sensitivity series (baseline, 2hr, 4hr, 6hr) (08/12/2024 8:08 PM FORMING DEPARTMENT SUPERVISOR) Pathologist [facility] Trop T hs 7 <=22 ng/L Comment: Interpretive Data For further hscTnT resources including the diagnostic algorithm and an aid in interpretation, copy and paste this link: https://nrl.testcatalog.org/show/hsTrop Current Interpretive Data last revised 2020. Blood 08/12/2024 8:08 PM FORMING DEPARTMENT SUPERVISOR 08/12/2024 8:23 PM FORMING DEPARTMENT SUPERVISOR us Batsheva Portillo MD LAB BLOOD ORDERABLES Final Result [facility] [address] [place] [address] * eGFR (08/12/2024 8:08 PM FORMING DEPARTMENT SUPERVISOR) Pathologist [facility] eGFR >90 >=60 mL/min/1. 73 m2 Comment: [...] last reviewed 2021. Blood 08/12/2024 8:08 PM FORMING DEPARTMENT SUPERVISOR 08/12/2024 8:23 PM FORMING DEPARTMENT SUPERVISOR us Batsheva Portillo MD LAB BLOOD ORDERABLES Final Result [facility] [address] Department of Laboratories [place], [place] [phone] * Differential, auto (08/12/2024 8:08 PM FORMING DEPARTMENT SUPERVISOR) Neutrophil abs 3.5 1.5 - 6.5 K/cumm Imm gran abs 0.0 0.0 - 0.1 K/cumm [facility] Lymphocyte abs 2.2 0.8 - 3.3 K/cumm [facility] Monocyte abs 0.5 0.2 - 0.8 K/cumm [facility] Eosinophil abs 0.3 0.0 - 0.5 K/cumm [facility] Basophil abs 0.1 0.0 - 0.1 K/cumm [facility] Neutrophil pct 54.5 % [facility] Comment: Interpretive Data Percent cell count reference ranges are not reported, since discordance with absolute values may lead to misinterpretation of CBC data. Current Interpretive Data was last revised on 2017. Imm gran pct 0.3 % [facility] Comment: Interpretive Data Percent cell count reference ranges are not reported, since discordance with absolute values may lead to misinterpretation of CBC data. Current Interpretive Data was last revised on 2017. Lymphocyte pct 33.3 % [facility] Comment: Interpretive Data Percent cell count reference ranges are not reported, since discordance with absolute values may lead to misinterpretation of CBC data. Current Interpretive Data was last revised on 2017. Monocyte pct 6.9 % [facility] Comment: Interpretive Data Percent cell count reference ranges are not reported, since discordance with absolute values may lead to misinterpretation of CBC data. Current Interpretive Data was last revised on 2017. Eosinophil pct 4.1 % [facility] Comment: Interpretive Data Percent cell count reference ranges are not reported, since discordance with absolute values may lead to misinterpretation of CBC data. Current Interpretive Data was last revised on 2017. Basophil pct 0.9 % [facility] Comment: Interpretive Data Percent cell count reference ranges are not reported, since discordance with absolute values may lead to misinterpretation of CBC data. Current Interpretive Data was last revised on 2017. Blood 08/12/2024 8:08 PM FORMING DEPARTMENT SUPERVISOR 08/12/2024 8:23 PM FORMING DEPARTMENT SUPERVISOR us Batsheva Portillo MD LAB BLOOD ORDERABLES Final Result [facility] [address] Department [place] [address] * Pro B-type natriuretic peptide (08/12/2024 8:08 PM FORMING DEPARTMENT SUPERVISOR) NT-proBNP 60 <=300 pg/mL Comment: Interpretive Comments: [...] et.al. Eur Heart J. 2006:27:330-337. 2. Xiomara DIEHL, Caryn MORAN. J. AM Emerson Cardiol: Cardiovasc Imag. 2009;2: 216- 225. Interpretive Data Last Revised Date: 2018. Blood 08/12/2024 8:08 PM FORMING DEPARTMENT SUPERVISOR 08/12/2024 8:23 PM FORMING DEPARTMENT SUPERVISOR us Batsheva Portillo MD LAB BLOOD ORDERABLES Final Result Performing Organization Address [facility] Co de Phone Number [facility] [address] [employer] [place], [place] [phone] * Thyroid Function [place] (08/12/2024 8:08 PM FORMING DEPARTMENT SUPERVISOR) Pathologist [facility] TSH 1.43 0.30 - 4.20 mcIUnit/mL Blood 08/12/2024 8:08 PM FORMING DEPARTMENT SUPERVISOR 08/12/2024 8:23 PM FORMING DEPARTMENT SUPERVISOR us Bathseva Portillo MD LAB BLOOD ORDERABLES Final Result Performing Organization Address [facility] Co de Phone Number [facility] [address] [place] [address] * (ABNORMAL) Iron profile w/ IBC (08/12/2024 8:08 PM FORMING DEPARTMENT SUPERVISOR) Iron 46(L) 50 - 150 mcg/dL TIBC 296 250 - 400 mcg/dL [facility] Transferrin saturation 16(L) 20 - 50 % [facility] Blood 08/12/2024 8:08 PM FORMING DEPARTMENT SUPERVISOR 08/12/2024 8:23 PM FORMING DEPARTMENT SUPERVISOR Batsheva Portillo MD LAB BLOOD ORDERABLES Final Result Performing Organization Address [facility]/ZIP Co de Phone Number [facility] [address] [place] [address] * (ABNORMAL) CBC with auto differential (08/12/2024 8:08 PM FORMING DEPARTMENT SUPERVISOR) [facility] WBC 6.5 3.8 - 9.9 K/cumm Hgb 12.5(L) 13.0 - 17.5 g/dL [facility] Hct 38.3(L) 38.9 - 50.3 % [facility] Plt 207 150 - 400 K/cumm [facility] MPV 10.1 9.1 - 12.3 fL [facility] RBC 4.22(L) 4.30 - 5.80 M/cumm [facility] MCV 90.8 81.3 - 96.4 fL [facility] MCH 29.6 27.1 - 33.3 pg [facility] MCHC 32.6 32.3 - 35.7 g/dL [facility] RDW CV 13.0 11.1 - 14.9 % [facility] RDW SD 43.2 35.7 - 48.1 fL [facility] NRBC abs 0.00 0.00 - 0.01 K/cumm [facility] Blood (Blood, Venous) 08/12/2024 8:08 PM FORMING DEPARTMENT SUPERVISOR 08/12/2024 8:23 PM FORMING DEPARTMENT SUPERVISOR us Batsheva Portillo MD LAB BLOOD ORDERABLES Final Result Performing Organization Address City/[facility]/ZIP Co de Phone Number [facility] [address] [place] [address] * Phosphorus (08/12/2024 8:08 PM FORMING DEPARTMENT SUPERVISOR) Pathologist [facility] Phosphorus, pl 3.1 2.3 - 4.5 mg/dL Blood 08/12/2024 8:08 PM FORMING DEPARTMENT SUPERVISOR 08/12/2024 8:23 PM FORMING DEPARTMENT SUPERVISOR Batsheva Portillo MD LAB BLOOD ORDERABLES Final Result Performing Organization Address [facility]/ZIP Co de Phone Number [facility] [address] [place] [address] * Magnesium (08/12/2024 8:08 PM FORMING DEPARTMENT SUPERVISOR) Pathologist [facility] Magnesium 2.0 1.4 - 2.5 mg/dL Blood 08/12/2024 8:08 PM FORMING DEPARTMENT SUPERVISOR 08/12/2024 8:23 PM FORMING DEPARTMENT SUPERVISOR Batsheva Portillo MD LAB BLOOD ORDERABLES Final Result Performing Organization Address [facility] Co de Phone Number [facility] [address] [place] [address] * Folate (08/12/2024 8:08 PM FORMING DEPARTMENT SUPERVISOR) [facility] Folic acid 7.6 >=5.0 ng/mL Blood 08/12/2024 8:08 PM FORMING DEPARTMENT SUPERVISOR 08/12/2024 8:23 PM FORMING DEPARTMENT SUPERVISOR Batsheva Portillo MD LAB BLOOD ORDERABLES Final Result Performing Organization Address City/[facility] Co de Phone Number [facility] [address] [facility] [place] [address] * Vitamin B12 (08/12/2024 8:08 PM FORMING DEPARTMENT SUPERVISOR) [facility] Vitamin B12 860 230 - 1,250 pg/mL Blood 08/12/2024 8:08 PM FORMING DEPARTMENT SUPERVISOR 08/12/2024 8:23 PM FORMING DEPARTMENT SUPERVISOR Batsheva Portillo MD LAB BLOOD ORDERABLES Final Result [facility] [address] Department [place] [address] * (ABNORMAL) Comprehensive metabolic panel (08/12/2024 8:08 PM FORMING DEPARTMENT SUPERVISOR) Sodium 142 135 - 145 mmol/L Potassium, pl 4.4 3.3 - 4.9 mmol/L [facility] Chloride 106 97 - 110 mmol/L [facility] CO2 27 22 - 32 mmol/L [facility] Anion gap 9 2 - 15 mmol/L [facility] BUN 29(H) 6 - 25 mg/dL [facility] Creatinine 1.02 0.80 - 1.30 mg/dL [facility] Glucose 104 70 - 199 mg/dL [facility] Comment: Interpretive Data Fasting glucose >/= [...] 2022. Calcium 8.6 8.5 - 10.3 mg/dL [facility] Bilirubin, total 0.3 0.1 - 1.2 mg/dL [facility] Protein, pl 6.1(L) 6.5 - 8.5 g/dL [facility] Albumin 3.7 3.5 - 5.0 g/dL [facility] Alk phos 83 40 - 130 Units/L [facility] ALT 230(H) 7 - 55 Units/L [facility] AST 158(H) 10 - 50 Units/L [facility] Blood 08/12/2024 8:08 PM FORMING DEPARTMENT SUPERVISOR 08/12/2024 8:23 PM FORMING DEPARTMENT SUPERVISOR us Batsheva Portillo MD LAB BLOOD ORDERABLES Final Result [facility] [address] Department [place] [address] * XR Chest PA Lateral 2 Views (08/12/2024 7:27 PM FORMING DEPARTMENT SUPERVISOR) Anatomical Region Laterality Modality Body, Chest N/A Computed Radiogr aphy 08/13/2024 7:44 AM FORMING DEPARTMENT SUPERVISOR Impressions 08/13/2024 7:44 AM FORMING DEPARTMENT SUPERVISOR There is subtle airspace opacity in the right lung base which may represent pneumonia in the appropriate clinical setting. Alternatively, this may represent atelectasis. No pleural effusion. No pneumothorax. Heart size is normal. Electronically signed by: Tari Gavin M.D. Narrative 08/13/2024 7:44 AM FORMING DEPARTMENT SUPERVISOR EXAMINATION: XR CHEST PA LATERAL 2 VIEWS [...] * ECG 12 lead (08/12/2024 6:48 PM FORMING DEPARTMENT SUPERVISOR) 08/12/2024 6:48 PM FORMING DEPARTMENT SUPERVISOR Narrative [facility] - 08/13/2024 1:41 PM FORMING DEPARTMENT SUPERVISOR Vent Rate: 63 bpm RR Interval: 938 msec [place] Interval: 165 msec QRS Duration: 96 msec QT Interval: 378 msec QTC Interval: 386 msec P-R-T [place]: 74 - 81 - 50 degrees IMPRESSION: SINUS RHYTHM POSSIBLE LEFT ATRIAL ENLARGEMENT [-0.1mV P WAVE IN V1/V2] BORDERLINE ECG Electronically Signed By: Jerel Ramirez MD PhD us Batsheva Portillo MD ECG ORDERABLES Final Resul t [facility] * XR Chest Pa Lateral 2 Views (08/11/2024 2:02 AM FORMING DEPARTMENT SUPERVISOR) Anatomical Region Laterality Modality Body, Chest N/A Computed Radiogr aphy 08/11/2024 3:00 AM FORMING DEPARTMENT SUPERVISOR Impressions 08/11/2024 9:05 AM FORMING DEPARTMENT SUPERVISOR Comparison radiograph from 08/08/2024. No consolidation, pleural effusion, or pneumothorax. Cardiomediastinal silhouette within normal limits. Dictated by: Julio Rooney M.D. The radiology attending physician has personally reviewed this study, and had reviewed and/or edited this written report and agrees with it. Electronically signed by: Brice Mantilla M.D. Narrative 08/11/2024 9:05 AM FORMING DEPARTMENT SUPERVISOR EXAMINATION: 2 view chest radiograph Procedure Note [...] sult * ECG 12-LEAD (08/11/2024 1:43 AM FORMING DEPARTMENT SUPERVISOR) Narrative [facility] - 08/11/2024 1:43 AM FORMING DEPARTMENT SUPERVISOR Johnnie Kelly MD 08/11/2024 1:44 AM ECG [...] the ED Johnnie Kelly MD 08/11/24 0144 Abdiel Hawkins MD ECG ORDERABLES Final Resu lt [facility] * XR Chest PA Lateral 2 Views (08/08/2024 10:42 PM FORMING DEPARTMENT SUPERVISOR) Anatomical Region Laterality Modality Body, Chest N/A Computed Radiogr aphy 08/08/2024 11:0 3 PM FORMING DEPARTMENT SUPERVISOR Impressions 08/09/2024 10:05 AM FORMING DEPARTMENT SUPERVISOR The current study is compared with the prior radiograph dated 09/13/2019. Mild bibasilar atelectasis. No consolidation, pleural effusion, or pneumothorax. Cardiomediastinal silhouette within normal limits. Dictated by: Chet Boogie MD The radiology attending physician has personally reviewed this study, and had reviewed and/or edited this written report and agrees with it. Electronically signed by: Steve Arce M.D. Narrative 08/09/2024 10:05 AM FORMING DEPARTMENT SUPERVISOR EXAMINATION: 2 view chest radiograph Procedure Note [...] it. Electronically signed by: Steve Arce M.D. us Karlo Gatica MD IMG XR PROCEDURES Final Res ult * CT Head WO Contrast (08/08/2024 10:34 PM FORMING DEPARTMENT SUPERVISOR) Anatomical Region Laterality Modality Head and Neck N/A Computed Tomogra phy 08/08/2024 10:4 4 PM FORMING DEPARTMENT SUPERVISOR Impressions 08/09/2024 10:54 AM FORMING DEPARTMENT SUPERVISOR 1. No acute intracranial process. 2. Large burden of cerumen in both external auditory canals which may be impacted. Dictated by: Juancho Marquez MD, Ph.D The radiology attending physician has personally reviewed this study, and had reviewed and/or edited this written report and agrees with it. Electronically signed by: Indio Zambrano M.D. Narrative 08/09/2024 10:54 AM FORMING DEPARTMENT SUPERVISOR EXAMINATION: CT head without contrast HISTORY: 43-year-old [...] it. Electronically signed by: Indio Zambrano M.D. us Karlo Gatica MD IMG CT PROCEDURES Final Res ult * ECG 12-LEAD (08/08/2024 8:56 PM FORMING DEPARTMENT SUPERVISOR) Narrative [facility] - 08/08/2024 8:56 PM FORMING DEPARTMENT SUPERVISOR Salena Cobb MD 08/08/2024 8:57 PM ECG [...] Gatica MD ECG ORDERABLES Final Resul t [facility] * (ABNORMAL) Respiratory pathogen panel Nasopharyngeal (08/06/2024 9:59 AM FORMING DEPARTMENT SUPERVISOR) [facility] Influenza A RNA Not Detected Not Detected Influenza B RNA Not Detected Not Detected [facility] RSV RNA Not Detected Not Detected [facility] COVID-19 RNA Not Detected Not Detected [facility] Coronavirus 229E RNA Not Detected Not Detected [facility] Coronavirus HKU1 RNA Not Detected Not Detected [facility] Coronavirus NL63 RNA Detected(A) Not Detected [facility] Coronavirus OC43 RNA Not Detected Not Detected [facility] Adenovirus DNA Not Detected Not Detected [facility] Metapneumovirus RNA Not Detected Not Detected [facility] Rhinovirus/Enterov irus RNA Not Detected Not Detected [facility] Parainfluenza 1 RNA Not Detected Not Detected [facility] Parainfluenza 2 RNA Not Detected Not Detected [facility] Parainfluenza 3 RNA Not Detected Not Detected [facility] Parainfluenza 4 RNA Not Detected Not Detected [facility] B. pertussis DNA Not Detected Not Detected [facility] B. parapertussis DNA Not Detected Not Detected [facility] C. pneumoniae DNA Not Detected Not Detected [facility] M. pneumoniae DNA Not Detected Not Detected [facility] Nasopharyngeal 08/06/2024 9: 59 AM FORMING DEPARTMENT SUPERVISOR 08/06/2024 10:52 AM FORMING DEPARTMENT SUPERVISOR Narrative [facility] - 08/06/2024 11:43 AM FORMING DEPARTMENT SUPERVISOR Is the Patient experiencing symptoms consistent with COVID?->Yes Surveillance testing for transplant patient?->No Interpretive Data The [employer] FilmArray Respiratory Panel (RP2.1) assay is a [...] assay has FDA clearance for testing of TECHNICAL PROGRAM MANAGER swabs. The performance of additional specimen types has been assessed by the performing laboratory. The performance characteristics of this assay have been determined by [facility]. Current interpretive data was last revised on 22. [facility] MICROBIOLOGY - GENERAL [place] Final Result [facility] Department of Laboratories [place] [id number] from Last 3 Months Insurance [employer] [address] [address] [place] [address] [facility] [employer] [address] [address] [place] [address] [facility] [employer] Advance Directives For more information, please contact: [phone] * Full Code (Latest Code Status on File) Date Activated Date Inactivated Comments 08/13/2024 3:12 AM 08/14/2024 6:01 PM * Full Code Date Activated Date Inactivated Comments 10/28/2022 5:15 PM 10/29/2022 2:07 PM * Full Code Date Activated Date Inactivated Comments 08/09/2019 5:28 PM 08/10/2019 5:09 PM * Full Code Date Activated Date Inactivated Comments 07/29/2019 4:26 PM 08/04/2019 10:36 PM Care Teams Community Theater Actor Relationship Specialty [place] [id number] [place] [address] PCP - General Family Medicine 05/18/24 [place] [id number] [address] [address] Referring Physician General Surgery 08/04/19 [place] [id number] [address] Consulting Physician Gastroenterology 08/04/19
--- NOTE | 2024-09-16 10:53 | ECG_ITS ---
Test Date: 2024-09-16 11:04:17 Measurements Intervals [place] Rate: 60 P: 75 [place]: 173 QRS: 86 QRSD: 97 T: 48 QT: 402 QTc: 403 Interpretive Statements SINUS RHYTHM NORMAL ECG No previous ECG available for comparison Electronically Signed On 09-16-2024 11:25:18 SPECIAL EFFECTS MAKEUP ARTIST by Larry Kellogg D.O.
[2024-09-16 11:13] LABS: Basophils Percent Auto 0.7 % (0.2-1.2); Eosinophils Absolute Auto 0.1 K/mm3 (0-0.3); Eosinophils Percent Auto 2.9 % (0-4.4); Hematocrit 38.4 % (42.0-52.0); Hemoglobin 12.3 g/dL (14.0-18.0); Immature Granulocyte Absolute 0.01 K/mm3 (0.00-0.031); Immature Granulocyte Percent A 0.2 % (0-0.5); Lymphocytes Absolute Auto 1.35 K/mm3 (0.9-3.2); Lymphocytes Percent Auto 30.6 % (18.3-44.2); Mean Corpuscular Volume 90.6 fl (80-100); Monocytes Absolute Auto 0.4 K/mm3 (0.1-0.6); Neutrophils Absolute Auto 2.5 K/mm3 (1.3-6.7); Neutrophils Percent Auto 55.6 % (45.5-73.1); Platelet Count Result 161 k/mm3 (150-375); Red Blood Count 4.24 M/mm3 (4.6-6.20); Red Cell Distribution Width 12.5 % (11.5-14.5); White Blood Count 4.4 K/mm3 (4.5-10.0)
[2024-09-16 11:27] LABS: Alanine Aminotransferase 39 U/L (6-50); Albumin Level 3.8 g/dL (3.5-5.1); Alkaline Phosphatase 61 U/L (38-126); Anion Gap 8 mmol/L (4-12); Aspartate Amino Transferase 30 U/L (17-59); Bilirubin,Total 0.7 mg/dL (0.2-1.3); Blood Urea Nitrogen 26 mg/dL (9-20); Calcium 8.5 mg/dL (8.4-10.2); Carbon Dioxide 29 mmol/L (22-30); Chloride 102 mmol/L (98-107); Estimated CRCL calculation 110 ml/min; Estimated Glomerular Filt Rate > 60; Glucose 84 mg/dL (65-110); Potassium 4.1 mmol/L (3.4-5.0); Sodium 139 mmol/L (137-145)
[2024-09-16 11:36] LABS: NT Pro B Type Natriuretic Pept 23 pg/mL (19.9-100)
[2024-09-16 13:15] VITALS: BP 103/69; PULSE 81; RESP 18; TEMP 36.4; O2SAT 98
== END 2024-09-16 13:15 | disposition home or self-care (01) ==
PROVIDERS: Emergency Provider Emergency Medicine
DX: L03.116 Cellulitis of left lower limb (principal); L03.115 Cellulitis of right lower limb; Z90.49 Acquired absence of other specified parts of digestive tract
CPT/HCPCS: 36415; 71046; 80053; 83880; 85025; 93005; 93970; 99284

== ENCOUNTER 2024-09-17 17:52 | Emergency (ER) | payer MEDICAID, SELFPAY ==
--- OUTSIDE RECORDS SUMMARY | 2024-09-17 17:57 | XMS_ITS | Encounter Summary ---
Author Organization [facility] Healthcare Address [address] [place] [address] Care Team Providers Care Teacher Ballet Name Role Phone Elias Andrews MD Unavailable [phone] Jonah Otto MD Unavailable [phone] Jerel Camejo MD Primary Care Provider [phone] Reason for Visit * Reason Comments Leg Swelling Encounter Details Date Type Department Care Team (Late st Contact Info) Description 09/17/2024 11:38 AM DREDGE DECKHAND - 09/17/2024 1:19 PM DREDGE DECKHAND Emergency [facility] Emergency Department [address] [place] [id number] Chronic venous insufficiency (Primary Dx); Bilateral lower extremity edema Discharge Disposition: Discharge to home or self care Social History Tobacco Use Types Packs/Day Years Used Date Smoking Tobacco: Never Smokeless Tobacco: Never Alcohol Use Standard Drinks/Week Comments Not Currently 0 (1 standard drink = 0.6 oz pur e alcohol) [facility] Utilities Answer Date Recorded In the past 12 months has [employer] electric, gas, oil, or water company threatened [...] declined 08/14/2024 How often do you attend roman catholic or latter day serv ices? Patient declined 08/14/2024 Do you belong to any clubs o r organizations such as roman catholic groups, unions, fraternal or athletic groups, or [...] any time in the past 12 m [facility], were you homeless or living in a assisted (including now)? Patient declined 08/14/2024 Personal Safety Answer Date Recorded Have you ever been in or are you currently in a harmful physical or emotional relationship or is someone making you feel afraid or unsafe? Denies 09/17/2024 Sex and Gender Information Value Date Recorded Sex Assigned at Not on file Legal Sex Male 9:25 PM DREDGE DECKHAND Gender Identity Not on file Sexual Orientation Straight 11/18/2022 7: 07 PM CDT documented as of this encounter Last Filed Vital Signs Vital Sign Reading Time Taken Comments Blood Pressure 109/73 09/17/2024 12:37 PM DREDGE DECKHAND Pulse 69 09/17/2024 12:37 PM DREDGE DECKHAND Temperature 36.5 C (97.7 F) 09/17/2024 10:26 AM DREDGE DECKHAND Respiratory Rate 16 09/17/2024 12:37 PM DREDGE DECKHAND Oxygen Saturation 98% 09/17/2024 12:37 PM DREDGE DECKHAND Inhaled Oxygen Concentration - - Weight 74.8 kg (165 lb) 09/17/2024 10:26 AM DREDGE DECKHAND Height 172.7 cm (5' 8 ) 09/17/2024 10:26 AM DREDGE DECKHAND Body Mass Index 25.09 09/17/2024 10:26 AM DREDGE DECKHAND documented in this encounter Discharge Instructions * Attachments The following attachments cannot be sent through Care Everywhere. * Lymphedema ([place]atorial [place]) * Leg Swelling in Both Legs ([place]) * Venous Insufficiency (Discharge Care) ([place]) documented in this encounter Medications at Time of Discharge acetaminophen (TYLENOL) 500 mg tablet Take 2 tablets (1,000 mg total) by mouth every 6 (six) hours as needed for pain 30 tablet 09/05/2024 cephalexin (KEFLEX) 500 mg capsuleIndicatio ns:Cellulitis of left lower extremity Take 2 capsules (1,000 mg total) by mouth 2 (two) times a day for 10 days 40 capsule 09/10/2024 doxycycline (VIBRAMYCIN) 100 mg capsuleIndicatio ns:Skin/Soft Tissue Infection Take 1 tablet/capsule (100 mg total) by mouth 2 (two) times a day 20 capsule 08/23/2024 furosemide (LASIX) 40 mg tablet Take 1 tablet (40 mg total) by mouth daily for 5 days 5 tablet 09/11/2024 gabapentin (NEURONTIN) 100 mg capsuleIndicatio ns:Neuropathic Pain Take 1 capsule (100 mg total) by mouth 3 (three) times a day for 14 days 42 capsule 09/05/2024 02/18/202 5 hydroCHLOROthiaz jessica (HYDRODIURIL) 25 mg tabletIndication s:Cellulitis of left lower extremity,Left leg swelling Take 1 tablet (25 mg total) by mouth daily 5 tablet 09/10/2024 6 ibuprofen (ADVIL,MOTRIN) 600 mg tablet Take 1 tablet (600 mg total) by mouth every 6 (six) hours as needed for pain, fever or headaches 60 tablet 09/01/2024 lidocaine (LIDODERM) 5 % Place 1 patch on the skin daily Remove & discard patch within 12 hours or as directed by MD. 15 patch 09/05/2024 5 naproxen (NAPROSYN) 500 mg tablet Take 1 tablet (500 mg total) by mouth 2 (two) times a day with meals 30 tablet 09/02/2024 potassium chloride ER (KLOR-CON) 20 mEq CR tablet Take 1 tablet (20 mEq total) by mouth daily for 7 days 7 tablet 09/11/2024 5 documented as of this encounter Discharge Disposition Disposition Code Departure Means Destination Comment s Discharge to home or self care documented in this encounter ED Notes * Angelia Sutton PA - 09/17/2024 1:06 PM CST HPI Chief Complaint Patient presents with Leg Swelling HPI Samuel Mccoy is a 44 y.o. male who presents to the emergency department with chronic leg swelling and redness bilaterally. He mentions having some improvement to his legs after taking Lasix, however he reports the swelling and redness has persisted after finishing the medication. He states he was recently on antibiotics for possible cellulitis to bilateral legs, completed them 3 days ago. Denies history of CHF. He has been seen in the several ED's, 18 visits just in Sep, for the same complaints. Saw his PCP for this, went to [facility] ED earlier this morning for same complaint where he had blood work with normal findings, discharged home with diagnosis of venous insufficiency. Alsoreceived Lasix and pain medication this morning at [facility]. Patient came to our ER because he was concerned that he might have a possible infection in his legs. WBC from [facility] ED today was 5.4. Denies chills, fever, cough, sore throat, CP, SOB, abd pain, N/V/D, headache, dizziness, weakness,numbness, urinary Sx, or any other complaints at this time. 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 Nasal mass 06/15/2022 Leg wound, left 09/13/2019 Chronic abdominal pain 08/12/2019 S/P cholecystectomy 08/12/2019 Vasovagal episode 08/12/2019 Generalized abdominal pain 08/09/2019 Gallbladder adhesions Nausea 07/29/2019 Calculus of gallbladder 07/29/2019 Dizziness 07/29/2019 Intractable right upper quadrant abdominal pain 07/29/2019 Adjustment disorder with depressed mood in remission 11/05/2018 Sepsis (HCC) 10/25/2018 Abdominal pain, generalized 10/25/2018 Dizziness 10/20/2018 Syncope and collapse 10/20/2018 Past Medical History: Diagnosis Date Chronic bilateral low back pain Post concussion syndrome Past Surgical History: Procedure Laterality Date CHOLECYSTECTOMY LUMBAR PUNCTURE 2018 Family History Problem Relation Age of Onset Diabetes Mother Social History Tobacco Use Smoking status: Never Smokeless tobacco: Never Vaping Use Vaping status: Never Used Substance and Sexual Activity Alcohol use: Not Currently Drug use: Never Sexual activity: Not Currently Partners: Female, Male control/protection: None Social History Social History Narrative Not on file Review of Systems Review of Systems Constitutional: Negative for chills and fever. HENT: Negative for ear pain and sore throat. Eyes: Negative for pain and visual disturbance. Respiratory: Negative for cough and shortness of breath. Cardiovascular: Negative for chest pain and palpitations. Gastrointestinal: Negative for abdominal pain and vomiting. Genitourinary: Negative for dysuria and hematuria. Musculoskeletal: Negative for arthralgias and back pain. Skin: Negative for color change and rash. Neurological: Negative for seizures and syncope. All other systems reviewed and are negative. Physical Exam ED Triage Vitals [09/17/24 1026] Temp Pulse Resp BP SpO2 36.5 ??C (97.7 ??F) 75 18 114/67 100 % Temp src Heart Rate Source Patient Position BP Location FiO2 (%) Temporal -- -- -- -- Height Height Method Weight Weight Method 1.727 m (5' 8 ) Stated 74.8 kg (165 lb) Stated Physical Exam Vitals and nursing note reviewed. Constitutional: General: He is not in acute distress. Appearance: He is well-developed. He is not ill-appearing, toxic-appearing or diaphoretic. HENT: Head: Normocephalic and atraumatic. Eyes: Conjunctiva/sclera: Conjunctivae normal. Cardiovascular: Rate and Rhythm: Normal rate and regular rhythm. Heart sounds: No murmur heard. Comments: Erythema noted to BLE, L>R, no warmth to touch, no signs of infection Pulmonary: Effort: Pulmonary effort is normal. No respiratory distress. Breath sounds: Normal breath sounds. Abdominal: Palpations: Abdomen is soft. Tenderness: There is no abdominal tenderness. Musculoskeletal: General: No swelling. Cervical back: Neck supple. Right lower le+ Edema present. Left lower le+ Edema present. Skin: General: Skin is warm and dry. Capillary Refill: Capillary refill takes less than 2 seconds. Neurological: Mental Status: He is alert. Psychiatric: Mood and Affect: Mood normal. MDM Patient is a 44 years old male who presents to the ED for chronic BLE edema. Patient came to our ERbecause he was concerned that he might have a possible infection in his legs despite being evaluated at [facility] ED earlier today. WBC from [facility] ED today was 5.4. He received one dose of Lasix IV and pain medication earlier today. No indication to repeat any blood work or order any new tests/imaging at this time. Patient is non - toxic appearing and in no acute distress. Patient discharged in stable condition. Patient told to return to the ED if Sx worsen or if any new Sx occur. Patient understands and agrees with plan to discharge. 1:18 PM Vital signs stable, afebrile. Instructed patient to take medications as prescribed, and to follow up with PCP. Return instructions provided and explained. Patient understands and agrees with discharge instructions. All questions were answered. Reviewed labs from today, 09/14 and 09/11. CBC, CMP, Trop, BNP - All WNL. Lower Extremity Vein Duplex Bilateral DATE: 09/03/2024 7:10 PM EXAM: Venous duplex imaging of bilateral lower extremities. INDICATION: Erythema and swelling. COMPARISON: 08/12/2024 IMPRESSION: 1. No evidence of DVT in the lower extremities bilaterally. 2. Evidence of pulsatile venous flow. This may suggest increased intravascular volume or right-sided valvular heart disease. Clinical correlation suggested. 3. No change when compared to previous studies. Electronically signed by: Lv Smart M.D. Medical Decision Making Problems Addressed: Bilateral lower extremity edema: acute illness or injury Chronic venous insufficiency: acute illness or injury Amount and/or Complexity of Data Reviewed External Data Reviewed: labs, radiology and notes. Risk Prescription drug management. Final diagnoses: Chronic venous insufficiency Bilateral lower extremity edema Angelia Sutton PA 09/17/24 1514 GE DECKHAND * Ijeoma Stock RN - 09/17/2024 10:25 AM CST Pt states he has had bilateral leg swelling since yesterday. Pt reports that he has a hx of leg swelling and was told it was either cellulitis or venous stasis. Denies SOB. Pt was seen at [facility] and had blood work done. dx with venous stasis GE DECKHAND GE DECKHAND documented in this encounter Plan of Treatment Not on file documented as of this encounter Visit Diagnoses Diagnosis Chronic venous insufficiency- Primary Unspecified venous (peripheral) insufficiency Bilateral lower extremity edema documented in this encounter Care Teams Teacher Ballet Relationship Specialty Start [place] [address] [place] [address] PCP - General Family Medicine 05/18/24 [place] [address] [address] [address] Referring Physician General Surgery 08/04/19 [place] [address] [address] Consulting Physician Gastroenterology 08/04/19 documented as of this encounter
--- OUTSIDE RECORDS SUMMARY | 2024-09-17 17:57 | XMS_ITS | Clinical Summary ---
Author Organization [facility] Address [address] [place] [phone] Phone Care Team Providers Care Cia Agent Name Role Phone Jerel Camejo MD Primary Care Provider [phone] Allergies Active Allergy Reactions Criticality Noted Date Comments Iodinated Contrast Media Nausea and Vomiting Low Medications furosemide (LASIX) 20 mg tablet Take 20 mg by mouth 2 times daily. 5 08/23/19 26 Active ondansetron (ZOFRAN ODT) 4 mg Tablet, Rapid Dissolve Take 1 Tablet (4 mg) by mouth every 8 hours as needed for Nausea/Emesis . Dissolve tablet on top of tongue, then swallow with saliva. 30 Tablet 5 09/25/19 25 Active furosemide (LASIX) 40 mg tablet Take 40 mg by mouth daily. 5 09/16/19 25 Active Problems Problem Noted Date Diagnosed Date Gallbladder adhesions 09/15/2024 Bilateral lower extremity edema 08/26/2024 LAD (lymphadenopathy) 08/21/2024 Coronavirus infection 08/14/2024 Mass of nose 06/15/2022 Overview (09/15/2024): Added automatically from request for surgery [id number] Leg wound, left 09/13/2019 Chronic abdominal pain 08/12/2019 S/P cholecystectomy 08/12/2019 Vasovagal episode 08/12/2019 Calculus of gallbladder 07/29/2019 Intractable right upper quadrant abdominal pain 07/29/2019 Overview (09/15/2024): Added automatically from request for surgery [id number] Nausea 07/29/2019 Adjustment disorder with depressed mood in remis devonte 11/05/2018 Generalized abdominal pain 10/25/2018 Sepsis 10/25/2018 Dizziness 10/20/2018 Syncope and collapse 10/20/2018 Encounters Date Type Department Care Team Description 09/17/2024 1:11 AM [facility] - 09/17/2024 2:12 AM [facility] Emergency Department [address] [place] [address] Nolan Lee MD Venous insufficiency (chronic) (peripheral) (Primary Dx) Discharge Disposition: Home or Self Care 09/15/2024 6:00 PM [facility] Office Visit [facility] [address] [place] [address] Kay Melo FNP Nausea and vomiting, unspecified vomiting type (Primary Dx) 09/15/2024 2:19 AM [facility] - 09/15/2024 3:50 AM [facility] Emergency Department [address] [place] [phone] Greg Todd MD Lower extremity edema (Primary Dx) Discharge Disposition: Home or Self Care 09/14/2024 Travel 09/13/2024 8:17 AM [facility] - 09/13/2024 11:47 AM [facility] Emergency Department [address] [place] [phone] Batsheva Hayden MD Leg swelling (Primary Dx) Discharge Disposition: Home or Self Care 09/13/2024 Travel 09/10/2024 9:10 PM [facility] - 09/10/2024 10:05 PM [facility] Emergency Room [address] [place] [address] Bilateral lower extremity edema (Primary Dx) Discharge Disposition: Home or Self Care 09/09/2024 9:55 PM [facility] - 09/10/2024 12:20 AM [facility] Emergency Department [address] [place] [phone] Nolan Lee MD 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 (Primary Dx) Discharge Disposition: Home or Self Care 09/09/2024 2:45 AM MANAGER [facility]LL[facility] - 09/09/2024 3:11 AM [facility] Emergency Department [address] [place] [address] Mark Andrews DO Venous stasis dermatitis (Primary Dx); Other chronic pain Discharge Disposition: Home or Self Care 09/08/2024 Travel 09/05/2024 External Device Data STL ABSTRACTION Provider, Abstract 09/04/2024 6:46 AM MANAGER INTELLIGENCE - 09/04/2024 7:21 AM [facility] Emergency Department [address] [place] [address] Fei Napoles DO Chronic pain of left lower extremity (Primary Dx) Discharge Disposition: Home or Self Care 08/24/2024 11:37 PM MANAGER [facility] - 08/24/2024 11:53 PM [facility] Emergency Department [address] [place] [phone] Wicho Camarillo DO Cellulitis, unspecified cellulitis site (Primary Dx) Discharge Disposition: Home or Self Care 08/24/2024 External Device Data STL ABSTRACTION Provider, Abstract 2024 Results Follow-Up [facility] Internal Medicine - [address] [place] [address] Jerel Camejo MD TSH, LIPID PANEL, COMPREHENSIVE METABOLIC PANEL, Additional followed-up results: 2 08/21/2024 3:00 PM [facility] Office Visit [facility] Internal Medicine [address] [place] [address] Jerel Camejo MD Encounter for routine adult health examination with abnormal findings (Primary Dx); Adjustment disorder with depressed mood in remission; LAD (lymphadenopathy); Screening for cardiovascular condition; Screening for lipoid disorders; Screening for endocrine disorder 08/21/2024 2:59 PM [facility] - 08/21/2024 7:44 PM [facility] Emergency Department [address] [place] [address] Mike Sandoval, Carmelo Phillips MD Leg edema (Primary Dx); Persistent cough Discharge Disposition: Home or Self Care 08/21/2024 Travel 08/17/2024 2:50 AM MANAGER [facility]LL[facility] - 08/17/2024 3:37 AM [facility] Emergency [facility] Emergency Department [address] [place] [phone] Nolan Lee MD Viral syndrome (Primary Dx); Bilateral lower extremity edema Discharge Disposition: Home or Self Care 08/15/2024 External Device Data STL ABSTRACTION Provider, Abstract 08/14/2024 Orders Only [facility] Oncology and Hematology [facility] [address] [facility] [address] [place] [phone] Ny Hicks MD Enlarged lymph nodes (Primary Dx) 08/11/2024 9:18 PM MANAGER INTELLIGENCE - 08/12/2024 12:53 AM [facility] Emergency [facility] Emergency Department [address] [place] [phone] Nasrin White MD COVID-19 virus detected (Primary [...] who hurts you emotionally and/or physically? No 09/16/2024 Sex and Gender Information Value Date Recorded Sex Assigned at Not on file Legal Sex Male 7:43 PM MANAGER INTELLIGENCE Gender Identity Not on file Sexual Orientation Not on file Last Filed Vital Signs Vital Sign Reading Time Taken Comments Blood Pressure 121/77 09/17/2024 1:40 AM MANAGER INTELLIGENCE Pulse 67 09/17/2024 1:40 AM MANAGER INTELLIGENCE Temperature 36.7 C (98 F) 09/16/2024 9:07 PM MANAGER INTELLIGENCE Respiratory Rate 19 09/17/2024 1:40 AM MANAGER INTELLIGENCE Oxygen Saturation 100% 09/17/2024 1:40 AM MANAGER INTELLIGENCE Inhaled Oxygen Concentration - - Weight 74.8 kg (165 lb) 09/16/2024 9:07 PM MANAGER INTELLIGENCE Height 172.7 cm (5' 8 ) 09/16/2024 9:07 PM MANAGER INTELLIGENCE Body Mass Index 25.09 09/16/2024 9:07 PM MANAGER INTELLIGENCE Plan of Treatment Upcoming Encounters Date Type Department Care Team (Late st Contact Info) Description 09/18/2024 9:00 AM MANAGER INTELLIGENCE Office Visit [facility] Heart and Vascular - [address] [facility] [address] [address] [facility] [address] [place] [address] 08/27/2025 11:30 AM MANAGER INTELLIGENCE Office Visit [facility] Internal Medicine - [place] [address] [facility] [address] [place] [phone] [place] [address] [address] [facility] [address] [place] [phone] Health Maintenance Due Date Last Done Comments HEPATITIS B VACCINES (1 of 3 - 19+ 3-dose series) 2001 Preventative Visit-Managed Medicaid 12/03/2023 12/01/2022 COVID-19 Vaccine (4 - 2023-2 5 season) 2024 2022, 04/04/2022, 12/10/2021 Pre-Diabetes and Diabetes Screening 08/21/2027 08/21/2024 DTAP/TDAP/TD VACCINES (2 - T d or Tdap) 08/05/2029 08/05/2019, 03/28/2014 INFLUENZA VACCINE Completed 04/03/2024, 05/01/2023, 04/04/2022 HPV VACCINES Aged Out No longer eligi ble based on patient's age to complete this topic Procedures Procedure Name Priority Date/Time Associated Diagnosis Comments TROPONIN 2 HR, 5TH GEN Timed Study 09/17/2024 1:35 AM MANAGER INTELLIGENCE EXTRA TUBE (BLUE) Stat 09/16/2024 9:1 3 PM MANAGER INTELLIGENCE EXTRA TUBE Stat 09/16/2024 9:13 PM MANAGER INTELLIGENCE COMPREHENSIVE METABOLIC PANEL Stat 09/16/2024 9:13 PM MANAGER INTELLIGENCE CBC WITH DIFFERENTIAL Stat 09/16/2024 9:13 PM MANAGER INTELLIGENCE TROPONIN BASELINE, 5TH GEN Stat 09/16/2024 9:13 PM MANAGER INTELLIGENCE EKG 12-LEAD Stat 09/16/2024 9:02 PM MANAGER INTELLIGENCE POC INFLUENZA A AND B ANTIGEN Routine 09/15/2024 6:16 PM MANAGER INTELLIGENCE Nausea and vomiting, unspecified vomiting type COMPREHENSIVE METABOLIC PANEL Stat 09/14/2024 11:53 PM MANAGER INTELLIGENCE CBC WITH DIFFERENTIAL Stat 09/14/2024 11:53 PM MANAGER INTELLIGENCE POC GLUCOSE Stat 09/14/2024 11:51 PM MANAGER INTELLIGENCE COMPREHENSIVE METABOLIC PANEL Stat 09/09/2024 9:16 PM MANAGER INTELLIGENCE CBC WITH DIFFERENTIAL Stat 09/09/2024 9:16 PM MANAGER INTELLIGENCE XR CHEST PA AND LATERAL 2 VW Stat 09/09/2024 1:17 AM MANAGER INTELLIGENCE RESPIRATORY PATHOGEN PCR PANEL Stat 09/08/2024 11:[address] CHEST ABDOMEN PELVIS W CONT Stat 08/21/2024 6:55 PM MANAGER INTELLIGENCE POC CREATININE Stat 08/21/2024 4:35 PM MANAGER INTELLIGENCE C-REACTIVE PROTEIN Stat 08/21/2024 4: 27 PM MANAGER INTELLIGENCE COMPREHENSIVE METABOLIC PANEL Stat 08/21/2024 4:27 PM MANAGER INTELLIGENCE CBC WITH DIFFERENTIAL Stat 08/21/2024 4:27 PM MANAGER INTELLIGENCE XR CHEST PA AND LATERAL 2 VW Stat 08/21/2024 3:25 PM MANAGER INTELLIGENCE INFLUENZA A/B, RSV AND COVID-19 PCR PANEL Stat 08/21/2024 3:11 PM MANAGER INTELLIGENCE INFLUENZA A/B, RSV AND COVID-19 PCR PANEL Stat 08/21/2024 3:11 PM MANAGER INTELLIGENCE HEMOGLOBIN A1C Routine 08/21/2024 2:08 PM MANAGER INTELLIGENCE Adjustment disorder with depressed mood in remission LAD (lymphadenopathy) CBC WITH DIFFERENTIAL Routine 08/21/2024 2:08 PM MANAGER INTELLIGENCE Adjustment disorder with depressed mood in remission LAD (lymphadenopathy) COMPREHENSIVE METABOLIC PANEL Routine 08/21/2024 2:08 PM MANAGER INTELLIGENCE Adjustment disorder with depressed mood in remission LAD (lymphadenopathy) LIPID PANEL Routine 08/21/2024 2:08 PM MANAGER INTELLIGENCE Adjustment disorder with depressed mood in remission LAD (lymphadenopathy) TSH Routine 08/21/2024 2:08 PM MANAGER INTELLIGENCE Adjustment disorder with depressed mood in remission LAD (lymphadenopathy) XR CHEST PA AND LATERAL 2 VW Stat 08/17/2024 3:26 AM MANAGER INTELLIGENCE TROPONIN 2 HR, 5TH GEN Timed Study 08/11/2024 11:[address] HEAD WO CONTRAST Stat 08/11/2024 1 0:18 PM MANAGER INTELLIGENCE EKG 12-LEAD Stat 08/11/2024 9:58 PM MANAGER INTELLIGENCE TROPONIN BASELINE, 5TH GEN Stat 08/11/2024 9:57 PM MANAGER INTELLIGENCE COMPREHENSIVE METABOLIC PANEL Stat 08/11/2024 9:57 PM MANAGER INTELLIGENCE CBC WITH DIFFERENTIAL Stat 08/11/2024 9:57 PM MANAGER INTELLIGENCE from Last 3 Months Results * TROPONIN 2 HR, 5TH GEN (09/17/2024 1:35 AM MANAGER INTELLIGENCE) Only the most recent of2 resultswithin the time period is included. TROPONIN T, 2 HR 5TH GEN <6 <=15 ng/L 09/17/2024 2:08 AM MANAGER INTELLIGENCE [facility] [employer] [facility] Blood Venipuncture / Unknown 09/17/2024 1:35 AM MANAGER INTELLIGENCE 09/17/2024 1:40 AM MANAGER INTELLIGENCE Narrative [facility] - 09/17/2024 2:08 AM MANAGER INTELLIGENCE Troponin Undetectable Delay in collection of timed specimen beyond recommended collection interval. Results must be interpreted in clinical context. Unable to calculate delta. Nolan Lee MD CHEMISTRY ORDERABLES Final R esult Performing Organization Address City/[facility]/ZIP Co de Phone Number [facility] CLIA# [id number] [place] [address] * EXTRA TUBE (BLUE) (09/16/2024 9:13 PM MANAGER INTELLIGENCE) Blood Venipuncture / Unknown 09/16/2024 9:13 PM MANAGER INTELLIGENCE 09/16/2024 9:20 PM MANAGER INTELLIGENCE Nolan Lee MD HEMATOLOGY ORDERABLES Final Result [facility] CLIA# [id number] [place] [address] * TROPONIN BASELINE, 5TH GEN (09/16/2024 9:13 PM MANAGER INTELLIGENCE) Only the most recent of2 resultswithin the time period is included. TROPONIN T, BASELINE 5TH GEN <6 <=15 ng/L 09/16/2024 9:58 PM [facility] Blood Venipuncture / Unknown 09/16/2024 9:13 PM MANAGER INTELLIGENCE 09/16/2024 9:20 PM MANAGER INTELLIGENCE Narrative [facility] - 09/16/2024 9:58 PM MANAGER INTELLIGENCE Troponin Undetectable Nolan Lee MD CHEMISTRY ORDERABLES Final R esult [facility] CLIA# [id number] [place] [address] * (ABNORMAL) CBC WITH DIFFERENTIAL (09/16/2024 9:13 PM MANAGER INTELLIGENCE) Only the most recent of6 resultswithin the time period is included. Pathologist [facility] WBC 5.4 4.0 - 9.8 K/uL 09/16/2024 9:28 PM [facility] RBC 4.06(L) 4.50 - 5.40 M/uL 09/16/2024 9:28 PM [facility] HEMOGLOBIN 12.0(L) 13.6 - 16.5 g/dL 09/16/2024 9:28 PM [facility] HEMATOCRIT 36.7(L) 40.0 - 48.0 % 09/16/2024 9:28 PM [facility] MCV 90.4 82.0 - 99.0 fL 09/16/2024 9:28 PM [facility] MCH 29.6 27.2 - 32.6 pg 09/16/2024 9:28 PM [facility] MCHC 32.7 31.5 - 35.5 g/dL 09/16/2024 9:28 PM [facility] RDW 12.4 11.5 - 14.5 % 09/16/2024 9:28 PM [facility] RDW-STDEV 41.1 37.1 - 48.7 fL 09/16/2024 9:28 PM MANAGER INTELLIGENCE [facility] PLATELETS 161 140 - 350 K/uL 09/16/2024 9:28 PM MANAGER INTELLIGENCE [facility] MPV 10.0 9.3 - 12.4 fL 09/16/2024 9:28 PM MANAGER INTELLIGENCE [facility] NEUTROPHILS 50 % 09/16/2024 9:28 PM MANAGER INTELLIGENCE [facility] LYMPHOCYTES 35 % 09/16/2024 9:28 PM MANAGER INTELLIGENCE [facility] MONOCYTES 11 % 09/16/2024 9:28 PM MANAGER INTELLIGENCE [facility] EOSINOPHILS 4 % 09/16/2024 9:28 PM MANAGER INTELLIGENCE [facility] BASOPHILS 1 % 09/16/2024 9:28 PM MANAGER INTELLIGENCE [facility] IMMATURE GRANULOCYTES 0 % 09/16/2024 9:28 PM MANAGER INTELLIGENCE [facility] NEUTROPHIL ABSOLUTE 2.66 1.90 - 7.00 K/uL 09/16/2024 9:28 PM MANAGER INTELLIGENCE [facility] LYMPHOCYTE ABSOLUTE 1.89 0.70 - 4.50 K/uL 09/16/2024 9:28 PM MANAGER INTELLIGENCE [facility] MONOCYTE ABSOLUTE 0.58 0.10 - 1.30 K/uL 09/16/2024 9:28 PM MANAGER INTELLIGENCE [facility] EOSINOPHIL ABSOLUTE 0.21 0.00 - 0.70 K/uL 09/16/2024 9:28 PM MANAGER INTELLIGENCE [facility] BASOPHILS ABSOLUTE 0.03 0.00 - 0.20 K/uL 09/16/2024 9:28 PM MANAGER INTELLIGENCE [facility] IMMATURE GRANULOCYTES ABSOLUTE 0.00 0.00 - 0.03 K/uL 09/16/2024 9:28 PM MANAGER INTELLIGENCE [facility] Blood Venipuncture / Unknown 09/16/2024 9:13 PM MANAGER INTELLIGENCE 09/16/2024 9:20 PM MANAGER INTELLIGENCE us Nolan Lee MD HEMATOLOGY ORDERABLES Final Result [facility] CLIA# [id number] [address] [place] [address] * (ABNORMAL) COMPREHENSIVE METABOLIC PANEL (09/16/2024 9:13 PM MANAGER INTELLIGENCE) Only the most recent of6 resultswithin the time period is included. SODIUM 138 136 - 145 mmol/L 09/16/2024 9:58 PM [facility] POTASSIUM 4.2 3.4 - 5.1 mmol/L 09/16/2024 9:58 PM [facility] CHLORIDE 104 98 - 107 mmol/L 09/16/2024 9:58 PM [facility] CO2 25 22 - 29 mmol/L 09/16/2024 9:58 PM [facility] CALCIUM 8.8 8.6 - 10.4 mg/dL 09/16/2024 9:58 PM [facility] BUN 26(H) 6 - 20 mg/dL 09/16/2024 9:58 PM [facility] CREATININE 1.06 0.67 - 1.17 mg/dL 09/16/2024 9:58 PM [facility] GLUCOSE 75 74 - 99 mg/dL 09/16/2024 9:58 PM [facility] TOTAL PROTEIN 6.5 6.3 - 8.7 g/dL 09/16/2024 9:58 PM [facility] ALBUMIN 3.7 3.5 - 5.2 g/dL 09/16/2024 9:58 PM [facility] BILIRUBIN TOTAL 0.3 0.3 - 1.2 mg/dL 09/16/2024 9:58 PM [facility] ALKALINE PHOSPHATASE 81 40 - 150 U/L 09/16/2024 9:58 PM [facility] AST 45(H) 0 - 41 U/L 09/16/2024 9:58 PM [facility] ALT 49(H) 0 - 41 U/L 09/16/2024 9:58 PM MANAGER INTELLIGENCE [facility] GFR >60 >=60 mL/min/1.7 3 sq meter 09/16/2024 9:58 PM MANAGER INTELLIGENCE [facility] Comment:eGFR calculated with 2020 CKD-EPI equation. Vegetarian diet, extremely high or low muscle mass, and may affect results. Cystatin C with Glomerular Filtration Rate is a suitable alternative for these patients. ANION GAP 9 8 - 16 mmol/L 09/16/2024 9:58 PM MANAGER INTELLIGENCE [facility] Blood Venipuncture / Unknown 09/16/2024 9:13 PM MANAGER INTELLIGENCE 09/16/2024 9:20 PM MANAGER INTELLIGENCE us Nolan Lee MD CHEMISTRY ORDERABLES Final R esult Performing Organization Address City/State/[facility] Co de Phone Number [facility] CLIA# [id number] [address] [place] [address] * EKG 12-LEAD (09/16/2024 9:02 PM MANAGER INTELLIGENCE) Only the most recent of2 resultswithin the time period is included. 09/16/2024 9:02 PM MANAGER INTELLIGENCE Narrative INTERFACE SYSTEM - 09/16/2024 10:35 PM [place] [address] Test Date: 2024-09-16 Pat Name: LISA MCCOY Department: 94 Room: Gender: Male In Room Dining Server: tl : 1980 Requested By: Order Number: [id number] [place] MD: Randy Haines Measurements Intervals [place] Rate: 77 P: 76 LA: 168 QRS: 87 QRSD: 90 T: 46 QT: 372 QTc: 420 Interpretive Statements Normal sinus rhythm Normal ECG Compared to ECG 08/11/2024 21:58:55 No significant changes Electronically Signed On 09-16-2024 22:35:15 MANAGER INTELLIGENCE by Randy Haines Procedure Note Randy Haines MD - 09/16/2024 [facility] [address] [place] [address] Test Date: 2024-09-16 Pat Name: LISA MCCOY Department: 94 Room: Gender: Male In Room Dining Server: tl : 1980 Requested By: Order Number: [id number] [place] MD: Randy Haines Measurements Intervals [place] Rate: 77 P: 76 LA: 168 QRS: 87 QRSD: 90 T: 46 QT: 372 QTc: 420 Interpretive Statements Normal sinus rhythm Normal ECG Compared to ECG 08/11/2024 21:58:55 No significant changes Electronically Signed On 09-16-2024 22:35:15 MANAGER INTELLIGENCE by Randy Haines us Nolan Lee MD ECG ORDERABLES Final Result INTERFACE SYSTEM Refer to clinic/hospital department * POC INFLUENZA A AND B ANTIGEN (09/15/2024 6:16 PM MANAGER INTELLIGENCE) Pathologist [facility] INFLUENZA A AG POC Negative/Not Detected Negative/No t Detected [facility] INFLUENZA B AG POC Negative/Not Detected Negative/No t Detected [facility] INTERNAL KIT QC POC Pass Pass [facility] KIT LOT NUMBER POC [id number] [facility] KIT EXP DATE POC 05/01/2026 [facility] READ METHOD POC Visual [facility] Upper Respiratory ANTERIOR NARES SWAB / Unknown 09/15/2024 6:16 PM MANAGER INTELLIGENCE us Kay Melo MANAGER MEDICAL WRITING POINT OF CARE TESTING F inal Result [facility] CLIA# [id number] [place] [address] * (ABNORMAL) POC GLUCOSE (09/14/2024 11:51 PM MANAGER INTELLIGENCE) GLUCOSE POC 119(H) 74 - 99 mg/dL 09/14/2024 11:51 PM MANAGER INTELLIGENCE [facility] - [facility] SPECIMEN SOURCE, GLUCOSE POC Whole Blood 09/14/2024 11:51 PM MANAGER INTELLIGENCE [facility] Blood, whole 09/14/2024 11:5 1 PM MANAGER INTELLIGENCE 09/14/2024 11:58 PM MANAGER INTELLIGENCE us Interface Provider Poct POINT OF CARE TESTING Fi nal Result [facility] CLIA# [id number] [address] [facility] [place] [address] * XR CHEST PA AND LATERAL 2 VW (09/09/2024 1:17 AM MANAGER INTELLIGENCE) Only the most recent of3 resultswithin the time period is included. Anatomical Region Laterality Modality Chest Computed Radiogr aphy 09/09/2024 1:18 AM MANAGER INTELLIGENCE Impressions 09/09/2024 7:11 AM MANAGER INTELLIGENCE IMPRESSION: Negative chest. DICTATION LOCATION: Location 1 [facility] Narrative 09/09/2024 7:11 AM MANAGER INTELLIGENCE XR CHEST PA AND LATERAL 2 VW [...] IMPRESSION: Negative chest. DICTATION LOCATION: Location 1 [facility] Mark Andrews DO DIAGNOSTIC IMAGING ORDERABLES Final Result * RESPIRATORY PATHOGEN PCR PANEL (09/08/2024 11:43 PM MANAGER INTELLIGENCE) Respiratory Pathogen PCR Panel NOT DETECTED No respiratory pathogen nucleic acids detected. 09/09/2024 1:04 AM MANAGER INTELLIGENCE [facility] COVID-19 PCR NOT DETECTED Not Detected 09/09/2024 1:04 AM MANAGER INTELLIGENCE [facility] Upper Respiratory ENTIRE NASOPHARYNX / Unknown Collection / Unknown 09/08/2024 11:43 PM MANAGER INTELLIGENCE 09/08/2024 11:49 PM MANAGER INTELLIGENCE Narrative [facility] - 09/09/2024 1:04 AM MANAGER INTELLIGENCE The Film Array Respiratory Panel (RP2.1) is [...] pertussis Bordetella parapertussis Chlamydophila pneumoniae Mycoplasma pneumoniae Mark Andrews DO MICROBIOLOGY - GENERAL ORDERAB LES Final Result Performing Organization Address City/State/[facility] Co de Phone Number [facility]# [id number] [address] [place] [address] * CT CHEST ABDOMEN PELVIS W CONT (08/21/2024 6:55 PM MANAGER INTELLIGENCE) Anatomical Region Laterality Modality Chest Computed Tomogra phy 08/21/2024 6:41 PM MANAGER INTELLIGENCE Impressions 08/21/2024 7:15 PM MANAGER INTELLIGENCE IMPRESSION: 1. No acute findings in the chest/abdomen/pelvis. Dictation location: Location 4 Narrative 08/21/2024 7:[address] CHEST ABDOMEN PELVIS W CONT TECHNIQUE: [...] in the chest/abdomen/pelvis. Dictation location: Location 4 us Carmelo Snow MD CT ORDERABLES Final Result * POC CREATININE (08/21/2024 4:35 PM MANAGER INTELLIGENCE) CREATININE POC 1.10 0.70 - 1.20 mg/dL 08/21/2024 4:35 PM MANAGER INTELLIGENCE [facility] [employer] [facility] GFR POC >60 >=60 mL/min/1.7 3 sq meter 08/21/2024 4:35 PM MANAGER INTELLIGENCE [facility] [employer] [facility] Comment:eGFR calculated with 2020 CKD-EPI equation. Vegetarian diet, extremely high or low muscle mass, and may affect results. Cystatin C with Glomerular Filtration Rate is a suitable alternative for these patients. Blood, whole 08/21/2024 4:35 PM MANAGER INTELLIGENCE 08/21/2024 4:39 PM MANAGER INTELLIGENCE Carmelo Snow MD POINT OF CARE TESTING Final R esult Performing Organization Address [facility]/ZIP Co de Phone Number [facility] CLIA# [id number] [address] [place] [address] * C-REACTIVE PROTEIN (08/21/2024 4:27 PM MANAGER INTELLIGENCE) Pathologist [facility] CRP <3.0 <5.0 mg/L 08/21/2024 5:33 PM [facility] Blood Venipuncture / Unknown 08/21/2024 4:27 PM MANAGER INTELLIGENCE 08/21/2024 4:39 PM MANAGER INTELLIGENCE Carmelo Snow MD CHEMISTRY ORDERABLES Final Re sult Performing Organization Address [facility]/ZIP Co de Phone Number [facility] CLIA# [id number] [address] [place] [address] * INFLUENZA A/B, RSV AND COVID-19 PCR PANEL (08/21/2024 3:11 PM MANAGER INTELLIGENCE) Pathologist [facility] COVID-19 PCR NOT DETECTED Not Detected 08/21/19 4:37 PM [facility] Influenza A by PCR NOT DETECTED Not Detected 08/21/2024 4:37 PM [facility] Influenza B by PCR NOT DETECTED Not Detected 08/21/2024 4:37 PM [facility] RSV by PCR NOT DETECTED Not Detected 08/21/2024 4:37 PM [facility] Upper Respiratory ENTIRE NASOPHARYNX / Unknown Collection / Unknown 08/21/2024 3:11 PM MANAGER INTELLIGENCE 08/21/2024 3:22 PM MANAGER INTELLIGENCE Narrative [facility] - 08/21/2024 4:37 PM MANAGER INTELLIGENCE This test has been authorized by the [...] Coronavirus. Mike Sandoval DO MICROBIOLOGY - GENERAL ORDFlorencio PRITCHARD Final Result [facility]# [id number] [address] [facility] [place] [place] [address] * TSH (08/21/2024 2:08 PM MANAGER INTELLIGENCE) Pathologist [facility] TSH 1.85 0.40 - 4.50 mIU/L [facility] Comment: FASTING:NO FASTING: NO Test Performed at: [facility] [address] [place] [address] [facility] Blood 08/21/2024 2:08 PM MANAGER INTELLIGENCE 08/21/2024 2:08 PM MANAGER INTELLIGENCE Jerel Camejo MD CHEMISTRY ORDERABLES Final Resul t Performing Organization Address City/[facility]/ZIP [facility] Phone Number [facility] [phone] [facility] [address] [place] [address] * HEMOGLOBIN A1C (08/21/2024 2:08 PM MANAGER INTELLIGENCE) Pathologist [facility] HEMOGLOBIN A1C 5.1 <5.7 % of total Hgb [facility] Comment: For the purpose of screening for the presence of diabetes: <5.7% Consistent with the absence of diabetes 5.7-6.4% Consistent with increased risk for diabetes (prediabetes) > or =6.5% Consistent with diabetes This assay result is consistent with a decreased risk of diabetes. Currently, no consensus exists regarding use of hemoglobin A1c for diagnosis of diabetes in children. According to [place] Diabetes Association (ADA) guidelines, hemoglobin A1c <7.0% represents optimal control in non- diabetic patients. Different metrics may apply to specific patient populations. Standards of Medical Care in Diabetes(ADA). ESTIMATED AVERAGE GLUCOSE (MG/DL) 100 mg/dL [facility] ESTIMATED AVERAGE GLUCOSE (MMOL/L) 5.5 mmol/L [facility] Comment: FASTING:NO FASTING: NO Test Performed at: [facility] [address] [address] [place] [facility] Blood 08/21/2024 2:08 PM MANAGER INTELLIGENCE 08/21/2024 2:08 PM MANAGER INTELLIGENCE us Jerel Camejo MD CHEMISTRY ORDERABLES Final Resul t [facility] [phone] [facility] [address] [address] * LIPID PANEL (08/21/2024 2:08 PM MANAGER INTELLIGENCE) CHOLESTEROL 149 <200 mg/dL [facility] HDL 67 > OR = 40 mg/dL [facility] TRIGLYCERIDE 57 <150 mg/dL [facility] LDL CALCULATED 69 mg/dL (calc) [facility] Comment: Reference range: <100 Desirable range <100 mg/dL for primary prevention; <70 mg/dL for patients with CHD or diabetic patients with > or = 2 CHD risk factors. LDL-C is now calculated using the Fernando-Maritza calculation, which is a validated novel method providing better accuracy than the Friedewald equation in the estimation of LDL-C. Fernando SS et al. GURDEEP. 2013;310(19): 3413-9364 (http://education.Petpace/faq/QPC224) CHOL/HDL RATIO 2.2 <5.0 (calc) [facility] NON-HDL CHOLESTEROL 82 <130 mg/dL (calc) [facility] Comment: For patients with diabetes plus 1 major ASCVD risk factor, treating to a non-HDL-C goal of <100 mg/dL (LDL-C of <70 mg/dL) is considered a therapeutic option. Test Performed at: [place] [address] [place] [address] [facility] Blood 08/21/2024 2:08 PM MANAGER INTELLIGENCE 08/21/2024 2:08 PM MANAGER INTELLIGENCE Jerel Camejo MD CHEMISTRY ORDERABLES Final Resul t [facility] [phone] [facility] [address] [place] [address] * CT HEAD WO CONTRAST (08/11/2024 10:18 PM MANAGER INTELLIGENCE) Anatomical Region Laterality Modality Head Computed Tomogra phy 08/11/2024 10:1 8 PM MANAGER INTELLIGENCE Impressions 08/11/2024 10:25 PM MANAGER INTELLIGENCE IMPRESSION: 1. No acute intracranial findings. Dictation location: Location 4 Narrative 08/11/2024 10:25 PM MANAGER INTELLIGENCE Indication: Syncope Study: CT head without IV [...] acute intracranial findings. Dictation location: Location 4 Result [facility] Nasrin White MD CT ORDERABLES Final Result from Last [address] [place] [address] [facility] [place] [address] [facility] [employer] MEDICAID Care Teams Cia Agent Relationship Specialty [place] [address] [facility] [address] Kyler Holland [address] [address] PCP - General Family Practice 12/01/22
--- OUTSIDE RECORDS SUMMARY | 2024-09-17 17:57 | XMS_ITS | Encounter Summary ---
Author Organization [facility] Address [address] [place] [address] Care Team Providers Care Piece Hand Name Role Phone Jerel Camejo MD Primary Care Provider Reason for Visit * Reason Comments Fatigue Generalized Body Aches Pt is here w c/o fatigue and slight nausea and body aches. He states he was in the ED and was given furosemide and is now not feeling well. Encounter Details Date Type Department Care Team (Late st Contact Info) Description 09/15/2024 6:00 PM FARM PRODUCTS SHIPPER Office Visit [facility] [place] [address] [place] [address] Kay Melo, [facility] [address] [place] [address] Nausea and vomiting, unspecified vomiting [...] on file Legal Sex Male 7:43 PM FARM PRODUCTS SHIPPER Gender Identity Not on file Sexual Orientation Not on file documented as of this encounter Last Filed Vital Signs Vital Sign Reading Time Taken Comments Blood Pressure 127/79 09/15/2024 5:54 PM FARM PRODUCTS SHIPPER Pulse 93 09/15/2024 5:54 PM FARM PRODUCTS SHIPPER Temperature 36.7 C (98.1 F) 09/15/2024 5:54 PM FARM PRODUCTS SHIPPER Respiratory Rate 16 09/15/2024 5:54 PM FARM PRODUCTS SHIPPER Oxygen Saturation 99% 09/15/2024 5:54 PM FARM PRODUCTS SHIPPER Inhaled Oxygen Concentration - - Weight 74.8 kg (165 lb) 09/15/2024 5:54 PM FARM PRODUCTS SHIPPER Height - - Body Mass Index 25.09 09/14/2024 11:08 PM FARM PRODUCTS SHIPPER documented in this encounter Patient Instructions * Attachments The following attachments cannot be sent through Care Everywhere. * Nausea and Vomiting (Belizean) documented in this encounter Progress Notes * [...] Note: Added automatically from request for surgery [id number] Leg wound, left 09/13/2019 Chronic abdominal pain 08/12/2019 S/P cholecystectomy 08/12/2019 Vasovagal episode 08/12/2019 Calculus of gallbladder 07/29/2019 Intractable right upper quadrant abdominal pain 07/29/2019 Overview Note: Added automatically from request for surgery [id number] Nausea 07/29/2019 Adjustment disorder with depressed mood [...] no erythema, no swelling, no exudates, no TECHNICAL SERVICES MANAGER. Neck: No resistance to flexion. Heart: regular rate and rhythm. Lungs: clear to auscultation bilaterally Extremities: Perfused. Psych: Affect normal, Interactive, conversant. Skin: warm, dry, no rash on visible skin. Lymphatics: No palpable lymphadenopathy, non-tender nodes. PRODUCTS SHIPPER documented in this encounter Plan of Treatment Upcoming Encounters Date Type Department Care Team (Late st Contact Info) Description 09/18/2024 9:00 AM FARM PRODUCTS SHIPPER Office [facility] [address] [facility] [address] [place] [address] 08/27/2025 11:30 AM FARM PRODUCTS SHIPPER Office Visit [facility] - [place] [address] [place] [id number] [place] [address] [facility] [address] [place] [address] documented as of this encounter Procedures Procedure Name Priority Date/Time Associated Diagnosis Comments POC INFLUENZA A AND B ANTIGEN Routine 09/15/2024 6:16 PM FARM PRODUCTS SHIPPER Nausea and vomiting, unspecified vomiting type documented in this encounter Results * POC INFLUENZA A AND B ANTIGEN (09/15/2024 6:16 PM FARM PRODUCTS SHIPPER) INFLUENZA A AG POC Negative/Not Detected Negative/No t Detected [facility] INFLUENZA B AG POC Negative/Not Detected Negative/No t Detected [facility] INTERNAL KIT QC POC Pass Pass [facility] KIT LOT NUMBER POC [id number] [facility] KIT EXP DATE POC 05/01/2026 [facility] READ METHOD POC Visual [facility] Upper Respiratory ANTERIOR NARES SWAB / Unknown 09/15/2024 6:16 PM FARM PRODUCTS SHIPPER Kay Melo SUPERVISOR VACUUM METALIZING POINT OF CARE TESTING F inal Result [facility] CLIA# [id number] [place] [address] documented in this encounter Visit Diagnoses Diagnosis Nausea and vomiting, unspecified vomiting type- Primary documented in this encounter Care Teams Piece Hand Relationship Specialty [place] [address] Kyler Holland [facility] [address] [place] [address] PCP - General Family Practice 12/01/22 documented as of this encounter
--- OUTSIDE RECORDS SUMMARY | 2024-09-17 17:57 | XMS_ITS | Encounter Summary ---
Author Organization [facility] Address [address] [place] [address] Care Team Providers Care Pull Tab Dealer Name Role Phone Jerel Camejo MD Primary Care Provider [phone] Reason for Referral * Eval and Treat (Routine) - Open Specialty Diagnoses / Procedures Referred By Contac t Referred To Contact Diagnoses Venous insufficiency (chronic) (peripheral) [place] [address] [place] [address] Phone: tel: fax: Referral ID Status Reason Start Date Expiration Date Visits Re quested Visits Authorized [id number] Open 09/17/2024 09/17/2025 1 1 ET LIGHT INSPECTOR Reason for Visit * Reason Comments Leg Swelling Bilateral leg swelli ng that has been on and off since yesterday. Patient was referred to ED by PCP. No hx of CHF per patient. No distress in triage. Patient also endorses minor chest pain. Some redness noted to legs Encounter Details Date Type Department Care Team (Late st Contact Info) Description 09/17/2024 1:[address] LIGHT INSPECTOR - 09/17/2024 2:[address] LIGHT INSPECTOR Emergency [facility] Emergency Department [address] [place] [address] [place] [address] [place] [address] Venous insufficiency (chronic) (peripheral) (Primary Dx) Discharge [...] on file Legal Sex Male 7:[address] LIGHT INSPECTOR Gender Identity Not on file Sexual Orientation Not on file documented as of this encounter Last Filed Vital Signs Vital Sign Reading Time Taken Comments Blood Pressure 121/77 09/17/2024 1:[address] LIGHT INSPECTOR Pulse 67 09/17/2024 1:[address] LIGHT INSPECTOR Temperature 36.7 C (98 F) 09/16/2024 9:[address] LIGHT INSPECTOR Respiratory Rate 19 09/17/2024 1:[address] LIGHT INSPECTOR Oxygen Saturation 100% 09/17/2024 1:[address] LIGHT INSPECTOR Inhaled Oxygen Concentration - - Weight 74.8 kg (165 lb) 09/16/2024 9:[address] LIGHT INSPECTOR Height 172.7 cm (5' 8 ) 09/16/2024 9:[address] LIGHT INSPECTOR Body Mass Index 25.09 09/16/2024 9:[address] LIGHT INSPECTOR documented in this encounter Discharge Instructions * Attachments The following attachments cannot be sent through Care Everywhere. * Venous Insufficiency: General Info (Luxembourger) documented in this encounter Medications at Time of Discharge furosemide (LASIX) 20 mg tablet Take 20 mg by mouth 2 times daily. 08/23/2024 08/23/2025 ondansetron (ZOFRAN ODT) 4 mg Tablet, Rapid Dissolve Take 1 Tablet (4 mg) by mouth every 8 hours as needed for Nausea/Emesis. Dissolve tablet on top of tongue, then swallow with saliva. 30 Tablet 09/15/2024 09/25/2024 documented as of this encounter ED Notes * Brianna Josue RN - 09/17/2024 2:11 AM CST Patient discharged from facility at this time. This RN reviews discharge instructions and follow upcare with patient at this time. All questions and concerns addressed at this time. Peripheral IV removed. Catheter intact. Patient discharged and ambulates to exit without assistance. ET LIGHT INSPECTOR * Brianna Josue RN - 09/17/2024 1:18 AM CST This RN assumes care of this patient at this time. ET LIGHT INSPECTOR * Nolan Lee MD - 09/16/2024 8:47 PM CST HISTORY OF PRESENT ILLNESS Physician at bedside: 01:27 Lisa Azar is a 44 y.o. male who presents to the emergency department with leg swelling and redness. The patient states the swelling has been intermittent since initial onset. He mentions having some improvement to his legs after taking Lasix, however he reports the swelling and redness has persisted after finishing the medication. The patient denies any shortness of breath. PCP: Jerel Camejo MD PAST MEDICAL HISTORY REVIEWED MEDICAL: Patient has a past medical history of Leg swelling. SURGICAL: Patient has a past surgical history that includes cholecystectomy (08/01/2019); surgical other (07/2020); and esophagogastroduodenoscopy (08/03/2019). ALLERGIES Iodinated contrast media PHYSICAL EXAM INITIAL VS BP: 127/79 (09/16/242106), Heart Rate: (!) 102 bpm (09/16/242106), Resp: 16 (09/16/242106), Pulse: (!) 102 (09/16/242106), Temp: 98 ??F (36.7 ??C) (09/16/242106), Temp src: Temporal (09/16/242106), SpO2: 98 % (09/16/242106), Height: 5' 8 (172.7 cm) (09/16/242106), Weight: 74.8 kg (165 lb) (09/16/242106), BMI (Calculated): (!) 25.08 (09/16/242106) No LMP for male patient. Physical Exam Vitals and nursing note reviewed. Constitutional: General: He is not in acute distress. HENT: Head: Normocephalic and atraumatic. Right Ear: External ear normal. Left Ear: External ear normal. Nose: Nose normal. Mouth/Throat: Mouth: Mucous membranes are moist. Eyes: Extraocular Movements: Extraocular movements intact. Pupils: Pupils are equal, round, and reactive to light. Cardiovascular: Pulses: Normal pulses. Heart sounds: Normal heart sounds. Pulmonary: Effort: Pulmonary effort is normal. No respiratory distress. Breath sounds: Normal breath sounds. Abdominal: General: Abdomen is flat. There is no distension. Palpations: Abdomen is soft. Tenderness: There is no abdominal tenderness. Musculoskeletal: General: No deformity or signs of injury. Cervical back: Normal range of motion and neck supple. Left lower leg: Edema present. Comments: Mild edema and erythema to left lower extremity that is consistent with previous exam from one week ago. Skin: General: Skin is warm and dry. Capillary Refill: Capillary refill takes less than 2 seconds. Findings: No rash. Neurological: General: No focal deficit present. Mental Status: He is oriented to person, place, and time. Cranial Nerves: No cranial nerve deficit. DIAGNOSTICS LAB: CBC WITH DIFFERENTIAL - Abnormal Result Value WBC 5.4 RBC 4.06 (*) HEMOGLOBIN 12.0 (*) HEMATOCRIT 36.7 (*) MCV 90.4 MCH 29.6 MCHC 32.7 RDW 12.4 RDW-STDEV 41.1 PLATELETS 161 MPV 10.0 NEUTROPHILS 50 LYMPHOCYTES 35 MONOCYTES 11 EOSINOPHILS 4 BASOPHILS 1 IMMATURE GRANULOCYTES 0 NEUTROPHIL ABSOLUTE 2.66 LYMPHOCYTE ABSOLUTE 1.89 MONOCYTE ABSOLUTE 0.58 EOSINOPHIL ABSOLUTE 0.21 BASOPHILS ABSOLUTE 0.03 IMMATURE GRANULOCYTES ABSOLUTE 0.00 COMPREHENSIVE METABOLIC PANEL - Abnormal SODIUM 138 POTASSIUM 4.2 CHLORIDE 104 CO2 25 CALCIUM 8.8 BUN 26 (*) CREATININE 1.06 GLUCOSE 75 TOTAL PROTEIN 6.5 ALBUMIN 3.7 BILIRUBIN TOTAL 0.3 ALKALINE PHOSPHATASE 81 AST 45 (*) ALT 49 (*) GFR >60 ANION GAP 9 TROPONIN BASELINE, 5TH GEN - Normal TROPONIN T, BASELINE 5TH GEN <6 TROPONIN 2 HR, 5TH GEN - Normal TROPONIN T, 2 HR 5TH GEN <6 EXTRA TUBE EXTRA TUBE (BLUE) RADIOLOGY: No orders to display EKG: EKG #1 Interpreted by myself. Normal Sinus Rhythm at 77 bpm. [place]: Normal Intervals: Normal ST segments: Normal Overall: Normal PROCEDURES Procedures MEDICAL DECISION MAKING AND PLAN OF CARE ED Course as of 09/17/24 0548 [place] Sep 17, 2024 0127 Patient seen by ED physician at bedside. History obtained and physical exam performed. Updatedthe patient on the expected course of treatment. They are agreeable. [TG] ED Course User Index [TG] Yovani Bah Scribe Medical Decision Making Patient seen for the same complaint multiple times in outside emergency departments in the recent past. I have personally seen patient in the past week for the same complaint. Exam today is unchanged. Given 1 dose of Lasix and pain medicine. Plan to discharge with outpatient primary care follow-up. Amount and/or Complexity of Data Reviewed Labs: ordered. ECG/medicine tests: ordered. Risk OTC drugs. Prescription drug management. Clinical Scoring & Consults Medications Administered During the ED Stay from 09/16/20242046 to 09/17/2024 0548 Date/Time Order Dose Route Action 09/16/20242099 STREET LIGHT INSPECTOR aspirin (BHAVESH CHEWABLE) chewable tablet 324 mg 324 mg Oral Not Given 09/16/20242099 STREET LIGHT INSPECTOR sodium chloride flush injection 5 mL 5 mL IV Not Given 09/17/[address] LIGHT INSPECTOR acetaminophen (TYLENOL) tablet 1,000 mg 1,000 mg Oral Given 09/17/[address] LIGHT INSPECTOR furosemide (LASIX) tablet 20 mg 20 mg Oral Given Discharge Medication List as of 09/17/2024 1:40 AM CONTINUE these medications which have NOT CHANGED Details ondansetron (ZOFRAN ODT) 4 mg Tablet, Rapid Dissolve Take 1 Tablet (4 mg) by mouth every 8 hours asneeded for Nausea/Emesis. Dissolve tablet on top of tongue, then swallow with saliva., Disp-30 Tablet, R-0 furosemide (LASIX) 20 mg tablet Take 20 mg by mouth 2 times daily. LAST VS BP: 121/77 (09/17/24139), Heart Rate: 68 bpm (09/17/24139), Resp: 19 (09/17/24139), Pulse: 67(09/17/24139), Temp: 98 ??F (36.7 ??C) (09/16/242106), Temp src: Temporal (09/16/242106), SpO2:100 % (09/17/24139) CLINICAL IMPRESSION Final diagnoses: [I87.2] Venous insufficiency (chronic) (peripheral) (Primary) DISPOSITION, EDUCATION AND MEDICATION RECONCILIATION Medications reconciled. See after visit summary for patient education on discharged patients. ED Disposition ED Disposition Discharge Condition Stable User Nolan Lee MD Date/Time Sun Sep 17, 2024 1:28 AM Comment -- ATTESTATION STATEMENTS This note is prepared by Yovani Bah acting as a scribe for Dr. Lee. The scribe's documentation has been prepared under my direction and personally reviewed by me in its entirety. I confirm that the note above accurately reflects all work, treatment, procedures, and medical decision making performed by me. Despite this, dictation software may have been utilized, andtherefore errors or substitutions may occur ET LIGHT INSPECTOR documented in this encounter Miscellaneous Notes * Gen AI RUTH - GENERATIVE AI HANDOFF NOTE - 09/17/2024 5:24 PM CST ## ER_course: ## # DIAGNOSIS: Venous insufficiency (chronic) (peripheral). # The patient, Lisa Azar, a 44-year-old male, presented to the emergency department with leg swelling and redness. The swelling had been intermittent, and although there was some improvement with Lasix, the symptoms persisted after finishing the medication. The patient denied any shortness of breath. # During the ER visit, mild edema and erythema were noted in the left lower extremity, consistent with a previous exam from one week ago. Abnormal lab findings included low RBC (4.06), hemoglobin (12.0), hematocrit (36.7), elevated BUN (26), AST (45), and ALT (49). The patient was given one dose of Lasix and acetaminophen for pain management. # The patient has been seen multiple times for the same complaint in outside emergency departments and was seen by the same ED physician in the past week for the same issue. The exam remained unchanged. ## Follow_up_orders: ## # The patient is to continue taking furosemide (Lasix) 20 mg by mouth twice daily and ondansetron (Zofran ODT) 4 mg as needed for nausea/emesis. # Follow-up with primary care provider is recommended for outpatient management of chronic venous insufficiency. ## Home_Situation: ## # No specific factors potentially impairing follow-up care were noted in the ER documentation. ET LIGHT INSPECTOR documented in this encounter Plan of Treatment Upcoming Encounters Date Type Department Care Team (Late st Contact Info) Description 09/18/2024 9:[address] LIGHT INSPECTOR Office Visit [facility] Heart and Vascular - [address] [address] [facility] [address] [place] [address] 08/27/2025 11:[address] LIGHT INSPECTOR Office Visit [facility] Internal Medicine - [place] [address] [address] [place] [address] [place] [address] [facility] [address] [place] [address] Scheduled Referrals Name Type Priority Associated Diagnoses Orde r Schedule AMB REFERRAL TO FLUID MANAGEMENT PROGRAM Outpatient Referral Routine Venous insufficiency (chronic) (peripheral) Ordered: 09/17/2024 documented as of this encounter Procedures Procedure Name Priority Date/Time Associated Diagnosis Comments TROPONIN 2 HR, 5TH GEN Timed Study 09/17/2024 1:[address] LIGHT INSPECTOR EXTRA TUBE (BLUE) Stat 09/16/2024 9:[address] LIGHT INSPECTOR EXTRA TUBE Stat 09/16/2024 9:[address] LIGHT INSPECTOR TROPONIN BASELINE, 5TH GEN Stat 09/16/2024 9:[address] LIGHT INSPECTOR CBC WITH DIFFERENTIAL Stat 09/16/2024 9:[address] LIGHT INSPECTOR COMPREHENSIVE METABOLIC PANEL Stat 09/16/2024 9:[address] LIGHT INSPECTOR EKG 12-LEAD Stat 09/16/2024 9:[address] LIGHT INSPECTOR documented in this encounter Results * TROPONIN 2 HR, 5TH GEN (09/17/2024 1:[address] LIGHT INSPECTOR) TROPONIN T, 2 HR 5TH GEN <6 <=15 ng/L 09/17/2024 2:[address] LIGHT INSPECTOR [facility] - [facility] Blood Venipuncture / Unknown 09/17/2024 1:[address] LIGHT INSPECTOR 09/17/2024 1:[address] LIGHT INSPECTOR Narrative [facility] - 09/17/2024 2:[address] LIGHT INSPECTOR Troponin Undetectable Delay in collection of timed specimen beyond recommended collection interval. Results must be interpreted in clinical context. Unable to calculate delta. us Nolan Lee MD CHEMISTRY ORDERABLES Final R esult Performing Organization Address City/[facility]/ZIP Co de Phone Number [facility] CLIA# [id number] [place] [address] * EXTRA TUBE (BLUE) (09/16/2024 9:[address] LIGHT INSPECTOR) Blood Venipuncture / Unknown 09/16/2024 9:[address] LIGHT INSPECTOR 09/16/2024 9:[address] LIGHT INSPECTOR us Nolan Lee MD HEMATOLOGY ORDERABLES Final Result Performing Organization Address [facility] Co de Phone Number [facility]# [id number] [address] [place] [address] * (ABNORMAL) COMPREHENSIVE METABOLIC PANEL (09/16/2024 9:[address] LIGHT INSPECTOR) SODIUM 138 136 - 145 mmol/L 09/16/2024 9:58 PM [facility] POTASSIUM 4.2 3.4 - 5.1 mmol/L 09/16/2024 9:58 PM [facility] CHLORIDE 104 98 - 107 mmol/L 09/16/2024 9:58 PM [facility] CO2 25 22 - 29 mmol/L 09/16/2024 9:58 PM [facility] CALCIUM 8.8 8.6 - 10.4 mg/dL 09/16/2024 9:58 PM [facility] BUN 26(H) 6 - 20 mg/dL 09/16/2024 9:58 PM [facility] CREATININE 1.06 0.67 - 1.17 mg/dL 09/16/2024 9:58 PM [facility] GLUCOSE 75 74 - 99 mg/dL 09/16/2024 9:58 PM [facility] TOTAL PROTEIN 6.5 6.3 - 8.7 g/dL 09/16/2024 9:58 PM [facility] ALBUMIN 3.7 3.5 - 5.2 g/dL 09/16/2024 9:58 PM [facility] BILIRUBIN TOTAL 0.3 0.3 - 1.2 mg/dL 09/16/2024 9:58 PM [facility] ALKALINE PHOSPHATASE 81 40 - 150 U/L 09/16/2024 9:58 PM [facility] AST 45(H) 0 - 41 U/L 09/16/2024 9:58 PM [facility] ALT 49(H) 0 - 41 U/L 09/16/2024 9:58 PM [facility] GFR >60 >=60 mL/min/1.7 3 sq meter 09/16/2024 9:58 PM [facility] Comment:eGFR calculated with 2020 CKD-EPI equation. Vegetarian diet, extremely high or low muscle mass, and may affect results. Cystatin C with Glomerular Filtration Rate is a suitable alternative for these patients. ANION GAP 9 8 - 16 mmol/L 09/16/2024 9:58 PM [facility] Blood Venipuncture / Unknown 09/16/2024 9:[address] LIGHT INSPECTOR 09/16/2024 9:[address] LIGHT INSPECTOR us Nolan Lee MD CHEMISTRY ORDERABLES Final R esult [facility] CLIA# [id number] [place] [address] * (ABNORMAL) CBC WITH DIFFERENTIAL (09/16/2024 9:[address] LIGHT INSPECTOR) WBC 5.4 4.0 - 9.8 K/uL 09/16/2024 9:[address] LIGHT INSPECTOR [facility] RBC 4.06(L) 4.50 - 5.40 M/uL 09/16/2024 9:28 PM [facility] HEMOGLOBIN 12.0(L) 13.6 - 16.5 g/dL 09/16/2024 9:[address] LIGHT INSPECTOR [facility] HEMATOCRIT 36.7(L) 40.0 - 48.0 % 09/16/2024 9:[address] LIGHT INSPECTOR [facility] MCV 90.4 82.0 - 99.0 fL 09/16/2024 9:[address] LIGHT INSPECTOR [facility] MCH 29.6 27.2 - 32.6 pg 09/16/2024 9:[address] LIGHT INSPECTOR [facility] MCHC 32.7 31.5 - 35.5 g/dL 09/16/2024 9:28 PM [facility] RDW 12.4 11.5 - 14.5 % 09/16/2024 9:28 PM [facility] RDW-STDEV 41.1 37.1 - 48.7 fL 09/16/2024 9:28 PM [facility] PLATELETS 161 140 - 350 K/uL 09/16/2024 9:28 PM [facility] MPV 10.0 9.3 - 12.4 fL 09/16/2024 9:[address] LIGHT INSPECTOR [facility] NEUTROPHILS 50 % 09/16/2024 9:[address] LIGHT INSPECTOR [facility] LYMPHOCYTES 35 % 09/16/2024 9:[address] LIGHT INSPECTOR [facility] MONOCYTES 11 % 09/16/2024 9:[address] LIGHT INSPECTOR [facility] EOSINOPHILS 4 % 09/16/2024 9:[address] LIGHT INSPECTOR [facility] BASOPHILS 1 % 09/16/2024 9:[address] LIGHT INSPECTOR [facility] IMMATURE GRANULOCYTES 0 % 09/16/2024 9:[address] LIGHT INSPECTOR [facility] NEUTROPHIL ABSOLUTE 2.66 1.90 - 7.00 K/uL 09/16/2024 9:[address] LIGHT INSPECTOR [facility] LYMPHOCYTE ABSOLUTE 1.89 0.70 - 4.50 K/uL 09/16/2024 9:[address] LIGHT INSPECTOR [facility] MONOCYTE ABSOLUTE 0.58 0.10 - 1.30 K/uL 09/16/2024 9:[address] LIGHT INSPECTOR [facility] EOSINOPHIL ABSOLUTE 0.21 0.00 - 0.70 K/uL 09/16/2024 9:[address] LIGHT INSPECTOR [facility] BASOPHILS ABSOLUTE 0.03 0.00 - 0.20 K/uL 09/16/2024 9:[address] LIGHT INSPECTOR [facility] IMMATURE GRANULOCYTES ABSOLUTE 0.00 0.00 - 0.03 K/uL 09/16/2024 9:[address] LIGHT INSPECTOR [facility] Blood Venipuncture / Unknown 09/16/2024 9:[address] LIGHT INSPECTOR 09/16/2024 9:[address] LIGHT INSPECTOR Nolan Lee MD HEMATOLOGY ORDERABLES Final Result [facility] CLIA# [id number] [place] [address] * TROPONIN BASELINE, 5TH GEN (09/16/2024 9:[address] LIGHT INSPECTOR) TROPONIN T, BASELINE 5TH GEN <6 <=15 ng/L 09/16/2024 9:[address] LIGHT INSPECTOR [facility] Blood Venipuncture / Unknown 09/16/2024 9:[address] LIGHT INSPECTOR 09/16/2024 9:[address] LIGHT INSPECTOR Narrative [facility] - 09/16/2024 9:[address] LIGHT INSPECTOR Troponin Undetectable Nolan Lee MD CHEMISTRY ORDERABLES Final R esult [facility] CLIA# [id number] [place] [address] * EKG 12-LEAD (09/16/2024 9:[address] LIGHT INSPECTOR) 09/16/2024 9:[address] LIGHT INSPECTOR Narrative INTERFACE SYSTEM - 09/16/2024 10:[address] [place] [address] Test Date: 2024-09-16 Pat Name: LISA AZAR Department: 94 Room: Gender: Male Thread Singer: tl : 1980 Requested By: Order Number: [id number] Reading MD: Randy Haines Measurements Intervals [place] Rate: 77 P: 76 GA: 168 QRS: 87 QRSD: 90 T: 46 QT: 372 QTc: 420 Interpretive Statements Normal sinus rhythm Normal ECG Compared to ECG 08/11/2024 21:58:55 No significant changes Electronically Signed On 09-16-2024 22:35:[address] ST[address] LIGHT INSPECTOR by Randy Haines Procedure Note Randy Haines MD - 09/16/2024 [place] [address] Test Date: 2024-09-16 Pat Name: LISA AZAR Department: 94 Room: Gender: Male Thread Singer: aw : 1980 Requested By: Order Number: [id number] Reading MD: Randy Haines Measurements Intervals [place] Rate: 77 P: 76 GA: 168 QRS: 87 QRSD: 90 T: 46 QT: 372 QTc: 420 Interpretive Statements Normal sinus rhythm Normal ECG Compared to ECG 08/11/2024 21:58:55 No significant changes Electronically Signed On 09-16-2024 22:35:[address] LIGHT INSPECTOR by Randy Haines us Nolan Lee MD ECG ORDERABLES Final Result INTERFACE SYSTEM Refer to clinic/hospital department documented in this encounter Visit Diagnoses Diagnosis Venous insufficiency (chronic) (peripheral)- Primary Unspecified venous (peripheral) insufficiency documented in this encounter Administered Medications Inactive Administered Medications - up to 3 most recent administrations Medication Order MAR Action Action Date Dose Rate Site acetaminophen (TYLENOL) tablet 1,000 mg 1,000 mg, Oral, ONE TIME ONLY, 1 dose, On 09/17/24 at 0130, Routine Given 09/17/2024 2:[address] LIGHT INSPECTOR 1,000 mg dextrose 5 % in water 250 mL flush bag 25 mL 25 mL, IV, SEE ADMIN INSTRUCTIONS, Starting on 09/16/24 at 2049, Until 09/17/24 at 0413, Routine furosemide (LASIX) tablet 20 mg 20 mg, Oral, ONE TIME ONLY, 1 dose, On 09/17/24 at 0130, Routine Given 09/17/2024 2:[address] LIGHT INSPECTOR 20 mg sodium chloride 0.9 % flush bag 25 mL 25 mL, IV, SEE ADMIN INSTRUCTIONS, Starting on 09/16/24 at 204, Until 09/17/24 at 0413, Routine sodium chloride flush injection 5 mL 5 mL, IV, EVERY 12 HOURS (BlD), First dose on 09/16/24 at 2100, Until Discontinued, Routine sodium chloride flush injection 5 mL 5 mL, IV, SEE ADMIN INSTRUCTIONS, Starting on 09/16/24 at 2049, Until 09/17/24 at 0413, Routine documented in this encounter Active and Recently Administered Medications Times are shown in STREET LIGHT INSPECTOR. Scheduled Medication Order 09/15/2024 09/16/2024 09/17/2024 acetaminophen (TYLENOL) tablet 1,000 mg (COMPLETED) 1,000 mg, Oral, ONE TIME ONLY, 1 dose, On 09/17/24 at 0130, Routine 0209 (Given - Provid er: Brianna Josue RN) aspirin (BHAVESH CHEWABLE) chewable tablet 324 mg 324 mg, Oral, ONE TIME ONLY, 1 dose, On 09/16/24 at 2100, Routine 2100 (Not Given - Provider: Brianna Josue RN - Reason: Patient condition) dextrose 5 % in water 250 mL flush bag 25 mL 25 mL, IV, SEE ADMIN INSTRUCTIONS, Starting on 09/16/24 at 2049, Until 09/17/24 at 0413, Routine furosemide (LASIX) tablet 20 mg (COMPLETED) 20 mg, Oral, ONE TIME ONLY, 1 dose, On 2/16/25 at 0130, Routine 0209 (Given - Provid er: Brianna Josue RN) sodium chloride 0.9 % flush bag 25 mL 25 mL, IV, SEE ADMIN INSTRUCTIONS, Starting on 09/16/24 at 2048, Until 09/17/24 at 0413, Routine sodium chloride flush injection 5 mL 5 mL, IV, EVERY 12 HOURS (BlD), First dose on 09/16/24 at 2100, Until Discontinued, Routine 2100 (Not Given - Provider: Brianna Josue RN - Reason: Medication already given) sodium chloride flush injection 5 mL 5 mL, IV, SEE ADMIN INSTRUCTIONS, Starting on 09/16/24 at 2048, Until 09/17/24 at 0413, Routine documented in this encounter Care Teams Pull Tab Dealer Relationship Specialty [place] [address] [address] [facility] [address] Kyler Holland [facility] [address] [place] [address] PCP - General Family Practice 12/01/22 documented as of this encounter
--- OUTSIDE RECORDS SUMMARY | 2024-09-17 17:57 | XMS_ITS | Encounter Summary ---
Author Organization [facility] Address [address] [place] [address] Care Team Providers Care Deburring And Tooling Machine Operator Name Role Phone Jerel Camejo MD Primary Care Provider [phone] Encounter Details Date Type Department Care Team (Late Contact Info) Description 12/24/2022 Lab Requisition [facility] [address] [place] [address] Ny Hicks MD [address] [facility] [address] [place] [address] Generalized enlarged lymph nodes Social [...] on file Legal Sex Male 7:43 PM TRACK FITTER Gender Identity Not on file Sexual Orientation Not on file COVID-19 Exposure Response Date Recorded In the last 10 days, have yo u been in contact with someone who was confirmed or suspected to have Coronavirus/COVID-19? No / Unsure 12/01/2022 12:26 PM CDT documented as of this encounter Plan of Treatment Upcoming Encounters Date Type Department Care Team (Late Contact Info) Description 09/18/2024 9:00 AM TRACK FITTER Office Visit [facility] - [address] [facility] [phone] [place] [address] 08/27/2025 11:30 AM TRACK FITTER Office Visit [facility] - [place] [address] [facility] [address] [place] [address] [place] [address] [facility] [address] [place] [address] documented as of this encounter Procedures Procedure Name Priority Date/Time Associated Diagnosis Comments SEDIMENTATION RATE Stat 12/24/2022 12 :05 PM CDT Generalized enlarged lymph nodes C-REACTIVE PROTEIN Stat 12/24/2022 12 :05 PM CDT Generalized enlarged lymph nodes documented in this encounter Results * C-REACTIVE PROTEIN (12/24/2022 12:05 PM CDT) CRP <3.0 <5.0 mg/L 12/24/2022 3:02 PM CDT [facility] Blood 12/24/2022 12:0 5 PM CDT 12/24/2022 2:22 PM CDT Ny Hicks MD CHEMISTRY ORDERABLES Final Re sult [facility] CLIA# [id number] [address] [place] [address] * SEDIMENTATION RATE (12/24/2022 12:05 PM CDT) ESR (SEDIMENTATION RATE) 7 <=15 mm/Hr 12/24/2022 2:55 PM CDT [facility] Blood Collection / Unknown 12/24/2022 12:05 PM CDT 12/24/2022 2:22 PM CDT Ny Hicks MD HEMATOLOGY ORDERABLES Final R esult [facility] CLIA# [id number] [address] [place] [address] documented in this encounter Visit Diagnoses Diagnosis Generalized enlarged lymph nodes Enlargement of lymph nodes documented in this encounter Additional Health Concerns Infection Onset Date Last Indicated Resolved Time R/O COVID-19 08/21/2024 08/21/2024 08/21/2024 4:37 PM TRACK FITTER R/O Respiratory 09/08/2024 09/08/2024 09/09/2024 1 :04 AM TRACK FITTER documented as of this encounter Care Teams Deburring And Tooling Machine Operator Relationship Specialty [place] [address] [facility] [address] [place] [address] [id number] PCP - General Family Practice 12/01/22 documented as of this encounter
--- OUTSIDE RECORDS SUMMARY | 2024-09-17 17:57 | XMS_ITS | Clinical Summary ---
Author Organization [facility] Address [address] [place] [address] Care Team Providers Care Java Programmer Name Role Phone Unavailable Primary Care Provider [...] patient's age to complete this topic Insurance [employer]
--- OUTSIDE RECORDS SUMMARY | 2024-09-17 17:58 | XMS_ITS | Encounter Summary ---
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
--- OUTSIDE RECORDS SUMMARY | 2024-09-17 17:58 | XMS_ITS | Referral Summary ---
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
--- OUTSIDE RECORDS SUMMARY | 2024-09-17 17:58 | XMS_ITS | CCD ---
Author Organization [facility] Address [address] [place] [address] Care Team Providers Care Operations Support Representative Name Role Phone Unavailable Primary Care Provider [...]
--- OUTSIDE RECORDS SUMMARY | 2024-09-17 17:58 | XMS_ITS | Clinical Summary ---
Author Organization [address] Address [address] [place] [phone] Care Team Providers Care Weed Eradicator Name Role Phone Elias Andrews MD Unavailable [phone] Jonah Otto MD Unavailable [phone] Jerel Camejo MD Primary Care Provider [phone] Allergies Active Allergy Reactions Criticality Noted Date [...] Insurance Qualify for In Clinic PT? 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 Assessment & Plan (08/09/2019 7:07 PM PROFESSOR OF COMMUNICATION): Patient presents with complaints of ongoing abdominal [...] 07/29/2019 Assessment & Plan (08/10/2019 10:48 AM PROFESSOR OF COMMUNICATION): Ongoing nausea post cholecystectomy w/o vomiting. Tolerating PO, no emesis overnight - prn zofran - ADAT Assessment & Plan (08/09/2019 7:17 PM PROFESSOR OF COMMUNICATION): Ongoing nausea post cholecystectomy w/o vomiting. - prn zofran - ADAT Calculus of gallbladder 07/29/2019 Dizziness 07/29/2019 Assessment & Plan (08/10/2019 10:59 AM PROFESSOR OF COMMUNICATION): Patient describes dizziness related to uncontrolled abdominal pain. He endorses pain starts in RQ and moves to head . He then becomes diaphoretic, nauseous. Improved this AM. Likely vasovagal, hemodynamically stable. - discussed proper hydration and symptom management Assessment & Plan (08/09/2019 7:16 PM PROFESSOR OF COMMUNICATION): Patient describes dizziness related to uncontrolled abdominal pain. He endorses pain starts in RQ and moves to head . He then becomes diaphoretic, nauseous. - likely vasovagal, s/p 1 L LR in ED. CTM Intractable right upper quadrant abdominal pain 07/29/2019 Overview (08/01/2019): Added automatically from request for surgery [id number] Adjustment disorder with depressed mood in remis devonte 11/05/2018 Sepsis 10/25/2018 Abdominal pain, generalized 10/25/2018 Dizziness 10/20/2018 Syncope and collapse 10/20/2018 Gallbladder adhesions Resolved Problems Problem Noted Date Diagnosed Date Resolved Date COVID-19 08/13/2024 08/14/2024 Encounters Date Type Department Care Team Description 09/17/2024 11:38 AM [facility] - 09/17/2024 1:19 PM [facility] Emergency Department [address] [place] [phone] Chronic venous insufficiency (Primary Dx); Bilateral lower extremity edema Discharge Disposition: Discharge to home or self care 09/14/2024 12:10 AM [facility] - 09/14/2024 1:49 AM [facility] Emergency Department [address] [place] [address] Brice Sepulveda MD Bilateral lower extremity edema (Primary Dx) Discharge Disposition: Discharge to home or self care 09/14/2024 Telephone [facility] Care at [address] [phone] Lexi Garcia, DESIGN TEACHER Med Refill 09/13/2024 9:20 PM [facility] - 09/13/2024 9:46 PM [facility] Emergency Department [address] [place] [address] Michael Schrader MD Weakness (Primary Dx) Discharge Disposition: Discharge to home or self care 09/13/2024 2:46 AM [facility] - 09/13/2024 5:31 AM [facility] Emergency Department [address] [place] [address] Katharine Polanco MD Chronic venous insufficiency (Primary Dx); Lower extremity edema Discharge Disposition: Discharge to home or self care 09/12/2024 9:22 PM [facility] - 09/12/2024 10:59 PM [facility] Emergency Department [address] [place] [id number] Leg swelling (Primary Dx); Venous insufficiency; Venous stasis dermatitis Discharge Disposition: Discharge to home or self care 09/11/2024 10:35 PM [facility] - 09/12/2024 3:44 AM [facility] Emergency Department [address] [place] [phone] Salena Crawley MD Lower extremity edema (Primary Dx); Cellulitis of left lower extremity Discharge Disposition: Discharge to home or self care 09/11/2024 7:00 PM PROFESSOR OF COMMUNICATION Office Visit [facility] at [address] [phone] Truman Gabriel, DO Symptom of leg swelling (Primary Dx) 09/10/2024 5:00 PM PROFESSOR OF COMMUNICATION Office Visit [facility] at [address] [phone] Jess Hobson NP Cellulitis of left lower extremity (Primary Dx); Left leg swelling 09/07/2024 10:55 AM PROFESSOR OF COMMUNICATION - 09/07/2024 10:56 AM [facility] Emergency [facility] Emergency Department [address] [place] [address] Venous stasis dermatitis of both lower extremities (Primary Dx) Discharge Disposition: Discharge to home or self care 09/05/2024 8:08 PM PROFESSOR OF COMMUNICATION - 09/05/2024 10:28 PM [facility] Emergency [facility] Emergency Department [address] [place] [phone] Other chronic pain (Primary Dx); Bilateral lower extremity edema Discharge Disposition: Discharge to home or self care 09/05/2024 2:02 AM PROFESSOR OF COMMUNICATION - 09/05/2024 3:14 AM [facility] Emergency [facility] Emergency Department [address] [place] [address] Marek Nelson MD PhD Chronic pain of left lower extremity (Primary Dx) Discharge Disposition: Discharge to home or self care 09/03/2024 7:07 PM PROFESSOR OF COMMUNICATION - 09/03/2024 11:06 PM [facility] Emergency [facility] Emergency Department [address] [place] [phone] Cellulitis of left lower extremity (Primary Dx) Discharge Disposition: Discharge to home or self care 09/02/2024 8:24 AM [facility] - 09/02/2024 11:59 PM [facility] Hospital Encounter [facility] [address] [place] [phone] Discharge Disposition: Discharge to home or self care 09/02/2024 3:25 AM PROFESSOR OF COMMUNICATION - 09/02/2024 3:41 AM [facility] Emergency Department [address] [place] [address] Rachele Guerra MD Sprain of right ankle, unspecified ligament, initial encounter (Primary Dx) Discharge Disposition: Discharge to home or self care 09/01/2024 8:06 AM [facility] - 09/01/2024 9:39 AM [facility] Emergency Department [address] [place] [address] Jair Armendariz MD Sprain of right ankle, unspecified ligament, initial encounter (Primary Dx) Discharge Disposition: Discharge to home or self care 08/23/2024 9:27 PM [facility] - 08/23/2024 10:03 PM [facility] Emergency Department [address] [place] [phone] Leg swelling (Primary Dx); Cellulitis of left lower extremity Discharge Disposition: Discharge to home or self care 08/23/2024 1:41 AM [facility] - 08/23/2024 9:16 AM [facility] Emergency Department [address] [place] [phone] Salena Crawley MD Li, Alex, MD Schneider, John Elliott, MD Leg swelling (Primary Dx); Cellulitis of left lower extremity; Failure of outpatient treatment Discharge Disposition: Discharge to home or self care 08/20/2024 11:11 PM [facility] - 08/21/2024 1:30 AM [facility] Emergency Department [address] [place] [address] Dependent edema (Primary Dx) Discharge Disposition: Discharge to home or self care 08/20/2024 9:06 AM [facility] - 08/20/2024 11:08 AM [facility] Emergency Department [address] [place] [address] Fei Murray MD Upper respiratory tract infection, unspecified type (Primary Dx); Peripheral edema Discharge Disposition: Discharge to home or self care 08/20/2024 2:24 AM PROFESSOR OF COMMUNICATION - 08/20/2024 4:35 AM [facility] Emergency Department [id number] [place] [address] Discharge Disposition: Left without being seen 08/18/2024 5:58 AM PROFESSOR OF COMMUNICATION - 08/18/2024 7:26 AM PROFESSOR OF COMMUNICATION Emergency [facility] Emergency Department [address] [place] [phone] Lorenzo Peña MD Peripheral edema (Primary Dx) Discharge Disposition: Discharge to home or self care 08/17/2024 3:00 PM PROFESSOR OF COMMUNICATION Diagnostic [facility] Orthopaedic Surgery [address] [facility] Advanced Medicine 6th [place] [address] [place] [address] Luciano Nelson MD Encounter for examination of normal volunteer in research study 08/15/2024 12:23 AM PROFESSOR OF COMMUNICATION - 08/15/2024 1:52 AM [facility] Emergency Department [address] [place] [address] Malingering (Primary Dx); Swelling Discharge Disposition: Discharge to home or self care 08/12/2024 8:23 PM PROFESSOR OF COMMUNICATION - 08/14/2024 1:56 PM PROFESSOR OF COMMUNICATION Hospital Encounter [address] [place] [address] Batsheva Portillo MD Li, MD Lucille Garcia, MD Russ COVID-19 (Primary Dx); Recurrent syncope; Chest pain, unspecified type; Anemia, unspecified type; Elevated AST (SGOT); Elevated ALT measurement; Nonintractable headache, unspecified chronicity pattern, unspecified headache type Discharge Disposition: Discharge to home or self care 08/11/2024 3:49 AM PROFESSOR OF COMMUNICATION - 08/11/2024 4:35 AM PROFESSOR OF COMMUNICATION Emergency [facility] Emergency Department [address] [place] [phone] Abdiel Hawkins MD Coronavirus infection (Primary Dx); Lightheadedness Discharge Disposition: Discharge to home or self care 08/08/2024 9:58 PM PROFESSOR OF COMMUNICATION - 08/08/2024 11:12 PM [facility] Emergency [facility] Emergency Department [address] [place] [phone] Karlo Gatica MD COVID (Primary Dx); Dehydration; Syncope, unspecified syncope type Discharge Disposition: Discharge to home or self care 08/07/2024 [facility] Eligibility Review [facility] Community Health Worker [address] [facility] [address] [place] [address] Zurita Darlene, [place] 08/06/2024 9:50 AM PROFESSOR OF COMMUNICATION - 08/06/2024 12:23 PM [facility] Emergency [facility] Emergency Department [address] [place] [phone] Jassi Daniels MD Coronavirus infection (Primary Dx) Discharge Disposition: Discharge to home or self care 08/02/2024 12:46 PM PROFESSOR OF COMMUNICATION - 08/02/2024 1:16 PM [facility] Emergency [facility] Emergency Department [address] [place] [phone] Gee Moran MD Chronic right shoulder pain (Primary Dx) Discharge Disposition: Discharge to home or self care 08/01/2024 2:00 AM PROFESSOR OF COMMUNICATION - 08/01/2024 3:17 AM [facility] Emergency [facility] Emergency Department [address] [place] [phone] Chronic right shoulder pain (Primary Dx); Encounter for medication refill Discharge Disposition: Discharge to home or self care 07/29/2024 9:38 PM PROFESSOR OF COMMUNICATION - 07/29/2024 11:38 PM [facility] Emergency [facility] Emergency Department [address] [place] [phone] Cindy Hendricks MD Injury of right rotator cuff, subsequent encounter (Primary Dx) Discharge Disposition: Discharge to home or self care 07/24/2024 1:00 PM PROFESSOR OF COMMUNICATION Office [facility] [address] [facility] 4th [address] [place] [phone] Right anterior shoulder pain (Primary Dx) 07/24/2024 Documentation [facility] [address] [facility] [address] [place] [phone] Cherie Ramirez [employer] ETCHER Social Work Services 07/19/2024 Documentation [facility] [address] [facility] [address] [place] [phone] Cherie Ramirez LCSW Social Work Services 06/26/2024 Orders Only [facility] Orthopaedic Surgery [address] [place] [address] [place] [address] Michael Corona MD Encounter for examination of [...] drink = 0.6 oz pur e alcohol) [facility] Utilities Answer Date Recorded In the past 12 months has [employer], gas, oil, or water [employer] threatened to shut off services in your home? Patient declined 08/14/2024 Social Connection and Isolation Panel [NHANES] A nswer Date Recorded In a typical week, how many times do you talk on the phone with family, friends, or neighbors? Patient declined 08/14/2024 How often do you get togethe r with friends or relatives? Patient declined 08/14/2024 How often do you attend confucianist or confucianist serv ices? Patient declined 08/14/2024 Do you belong to any clubs o r organizations such as confucianist groups, unions, fraternal or athletic groups, or [...] any time in the past 12 m [place], were you homeless or living in a snf (including now)? Patient declined 08/14/2024 Personal Safety Answer Date Recorded Have you ever been in or are you currently in a harmful physical or emotional relationship or is someone making you feel afraid or unsafe? Denies 09/17/2024 Sex and Gender Information Value Date Recorded Sex Assigned at Not on file Legal Sex Male 9:25 PM PROFESSOR OF COMMUNICATION Gender Identity Not on file Sexual Orientation Straight 11/18/2022 7: 07 PM CDT Obstetrics History Last Filed Vital Signs Vital Sign Reading Time Taken Comments Blood Pressure 109/73 09/17/2024 12:37 PM PROFESSOR OF COMMUNICATION Pulse 69 09/17/2024 12:37 PM PROFESSOR OF COMMUNICATION Temperature 36.5 C (97.7 F) 09/17/2024 10:26 AM PROFESSOR OF COMMUNICATION Respiratory Rate 16 09/17/2024 12:37 PM PROFESSOR OF COMMUNICATION Oxygen Saturation 98% 09/17/2024 12:37 PM PROFESSOR OF COMMUNICATION Inhaled Oxygen Concentration - - Weight 74.8 kg (165 lb) 09/17/2024 10:26 AM PROFESSOR OF COMMUNICATION Height 172.7 cm (5' 8 ) 09/17/2024 10:26 AM PROFESSOR OF COMMUNICATION Body Mass Index 25.09 09/17/2024 10:26 AM PROFESSOR OF COMMUNICATION Plan of Treatment Health Maintenance Due Date Last Done Comments Depression Screening 1982 Varicella Vaccines (1 of 2 - 13+ 2-dose series) 1995 Hepatitis B Screening 2000 Regular Well Visit/Exam 18-64 2000 Pneumococcal vaccine <65 (1 of 2 - PCV) 2001 DTaP/Tdap/Td Vaccine (2 - Td or Tdap) 08/05/2029 08/05/2019, 03/28/2014 Influenza Vaccine Completed 04/03/2024, , 03/13/2024, Additional history exists Covid-19 Vaccine Completed 05/03/2024, 08/2022, 2022, Additional history exists Hepatitis C Screening Completed 08/12/2024 HPV Vaccines Aged Out No longer eligi ble based on patient's age to complete this topic Procedures Procedure Name Priority Date/Time Associated Diagnosis Comments EGFR STAT 09/11/2024 9:10 PM PROFESSOR OF COMMUNICATION DIFFERENTIAL AUTO STAT 09/11/2024 9:1 0 PM PROFESSOR OF COMMUNICATION PRO B-TYPE NATRIURETIC PEPTIDE STAT 09/11/2024 9:10 PM PROFESSOR OF COMMUNICATION COMPREHENSIVE METABOLIC PANEL STAT 09/11/2024 9:10 PM PROFESSOR OF COMMUNICATION CBC WITH AUTO DIFFERENTIAL STAT 09/11/2024 9:10 PM PROFESSOR OF COMMUNICATION EGFR STAT 09/07/2024 2:59 AM PROFESSOR OF COMMUNICATION DIFFERENTIAL AUTO STAT 09/07/2024 2:5 9 AM PROFESSOR OF COMMUNICATION BASIC METABOLIC PANEL STAT 09/07/2024 2:59 AM PROFESSOR OF COMMUNICATION CBC WITH AUTO DIFFERENTIAL STAT 09/07/2024 2:59 AM PROFESSOR OF COMMUNICATION US VEIN DUPLEX LOWER EXTREMITY BILATERAL COMPLETE ED 09/03/2024 7:37 PM PROFESSOR OF COMMUNICATION MRI SHOULDER RIGHT WO CONTRAST Schedule Routine, Read Routine (OP Routine) 09/02/2024 9:06 AM PROFESSOR OF COMMUNICATION Right anterior shoulder pain XR ANKLE RIGHT 2 VIEWS ED 09/01/2024 9:33 PM PROFESSOR OF COMMUNICATION XR TIBIA FIBULA RIGHT2 VIEWS ED 09/01/2024 8:37 AM PROFESSOR OF COMMUNICATION XR ANKLE RIGHT 3 OR MORE VIEWS ED 08/31/2024 10:35 PM PROFESSOR OF COMMUNICATION XR FOOT RIGHT 3 OR MORE VIEWS ED 08/31/2024 10:34 PM PROFESSOR OF COMMUNICATION EGFR STAT 08/23/2024 2:33 AM PROFESSOR OF COMMUNICATION DIFFERENTIAL AUTO STAT 08/23/2024 2:3 3 AM PROFESSOR OF COMMUNICATION PRO B-TYPE NATRIURETIC PEPTIDE STAT 08/23/2024 2:33 AM PROFESSOR OF COMMUNICATION COMPREHENSIVE METABOLIC PANEL STAT 08/23/2024 2:33 AM PROFESSOR OF COMMUNICATION CBC WITH AUTO DIFFERENTIAL STAT 08/23/2024 2:33 AM PROFESSOR OF COMMUNICATION SEPSIS LACTATE WITH REFLEX Routine 08/23/2024 2:33 AM PROFESSOR OF COMMUNICATION BLOOD CULTURE Routine 08/23/2024 2:33 AM PROFESSOR OF COMMUNICATION BLOOD CULTURE Routine 08/23/2024 2:33 AM PROFESSOR OF COMMUNICATION ECG 12-LEAD STAT 08/23/2024 2:32 AM PROFESSOR OF COMMUNICATION EGFR STAT 08/21/2024 12:35 AM PROFESSOR OF COMMUNICATION DIFFERENTIAL AUTO STAT 08/21/2024 12: 35 AM PROFESSOR OF COMMUNICATION CRP (ACUTE PHASE) STAT 08/21/2024 12: 35 AM PROFESSOR OF COMMUNICATION ERYTHROCYTE SEDIMENTATION RATE STAT 08/21/2024 12:35 AM PROFESSOR OF COMMUNICATION BASIC METABOLIC PANEL STAT 08/21/2024 12:35 AM PROFESSOR OF COMMUNICATION CBC WITH AUTO DIFFERENTIAL STAT 08/21/2024 12:35 AM PROFESSOR OF COMMUNICATION STREPTOCOCCUS GROUP A PCR STAT 08/20/2024 9:19 AM PROFESSOR OF COMMUNICATION RESPIRATORY PATHOGEN PANEL Routine 08/20/2024 9:19 AM PROFESSOR OF COMMUNICATION D-DIMER, QUANTITATIVE STAT 08/15/2024 1:08 AM PROFESSOR OF COMMUNICATION PRO B-TYPE NATRIURETIC PEPTIDE STAT 08/14/2024 9:59 PM PROFESSOR OF COMMUNICATION EGFR STAT 08/14/2024 9:59 PM PROFESSOR OF COMMUNICATION DIFFERENTIAL AUTO STAT 08/14/2024 9:5 9 PM PROFESSOR OF COMMUNICATION LIPASE STAT 08/14/2024 9:59 PM PROFESSOR OF COMMUNICATION COMPREHENSIVE METABOLIC PANEL STAT 08/14/2024 9:59 PM PROFESSOR OF COMMUNICATION CBC WITH AUTO DIFFERENTIAL STAT 08/14/2024 9:59 PM PROFESSOR OF COMMUNICATION TRANSTHORACIC ECHO (TTE) COMPLETE W DOPPLER/CF WO CONTRAST Routine 08/14/2024 11:39 AM PROFESSOR OF COMMUNICATION HEPATIC FUNCTION PANEL Routine 08/13/2024 5:30 AM PROFESSOR OF COMMUNICATION EGFR Routine 08/13/2024 5:30 AM PROFESSOR OF COMMUNICATION CBC WITHOUT DIFFERENTIAL Routine 08/13/2024 5:30 AM PROFESSOR OF COMMUNICATION PHOSPHORUS Routine 08/13/2024 5:30 AM PROFESSOR OF COMMUNICATION MAGNESIUM Routine 08/13/2024 5:30 AM PROFESSOR OF COMMUNICATION BASIC METABOLIC PANEL Routine 08/13/2024 5:30 AM PROFESSOR OF COMMUNICATION FERRITIN Routine 08/13/2024 5:30 AM PROFESSOR OF COMMUNICATION DRUGS OF ABUSE SCREEN, URINE WITH REFLEX CONFIRMATION Routine 08/13/2024 12:15 AM PROFESSOR OF COMMUNICATION URINALYSIS AND REFLEX TO MICROSCOPIC AND CULTURE STAT 08/13/2024 12:[address] CHEST PE W CONTRAST ED 08/12/2024 11:48 PM PROFESSOR OF COMMUNICATION US VEIN DUPLEX LOWER EXTREMITY BILATERAL COMPLETE ED 08/12/2024 11:46 PM PROFESSOR OF COMMUNICATION US RUQ ED 08/12/2024 11:38 PM PROFESSOR OF COMMUNICATION ADD ON LAB TEST Add-On 08/12/2024 10:[address] HEAD AND CERVICAL SPINE WO CONTRAST ED 08/12/2024 10:20 PM PROFESSOR OF COMMUNICATION D-DIMER, QUANTITATIVE STAT 08/12/2024 10:05 PM PROFESSOR OF COMMUNICATION PROTIME-INR STAT 08/12/2024 10:05 PM PROFESSOR OF COMMUNICATION ADD ON LAB TEST Add-On 08/12/2024 9:53 PM PROFESSOR OF COMMUNICATION ADD ON LAB TEST Add-On 08/12/2024 9:53 PM PROFESSOR OF COMMUNICATION ADD ON LAB TEST Add-On 08/12/2024 9:53 PM PROFESSOR OF COMMUNICATION ADD ON LAB TEST Add-On 08/12/2024 9:53 PM PROFESSOR OF COMMUNICATION ADD ON LAB TEST Add-On 08/12/2024 9:53 PM PROFESSOR OF COMMUNICATION ADD ON LAB TEST Add-On 08/12/2024 9:53 PM PROFESSOR OF COMMUNICATION ADD ON LAB TEST Add-On 08/12/2024 9:53 PM PROFESSOR OF COMMUNICATION ETHANOL STAT 08/12/2024 9:52 PM PROFESSOR OF COMMUNICATION TROPONIN T HIGH-SENSITIVITY 2-HOUR Timed 08/12/2024 9:52 PM PROFESSOR OF COMMUNICATION ACETAMINOPHEN LEVEL STAT 08/12/2024 9 :13 PM PROFESSOR OF COMMUNICATION HEPATITIS PANEL, ACUTE STAT 08/12/2024 9:13 PM PROFESSOR OF COMMUNICATION PRO B-TYPE NATRIURETIC PEPTIDE STAT 08/12/2024 8:08 PM PROFESSOR OF COMMUNICATION THYROID FUNCTION CASCADE STAT 08/12/2024 8:08 PM PROFESSOR OF COMMUNICATION FOLATE STAT 08/12/2024 8:08 PM PROFESSOR OF COMMUNICATION IRON PROFILE W/ IBC STAT 08/12/2024 8 :08 PM PROFESSOR OF COMMUNICATION VITAMIN B12 STAT 08/12/2024 8:08 PM PROFESSOR OF COMMUNICATION MAGNESIUM STAT 08/12/2024 8:08 PM PROFESSOR OF COMMUNICATION PHOSPHORUS STAT 08/12/2024 8:08 PM PROFESSOR OF COMMUNICATION EGFR STAT 08/12/2024 8:08 PM PROFESSOR OF COMMUNICATION DIFFERENTIAL AUTO STAT 08/12/2024 8:0 8 PM PROFESSOR OF COMMUNICATION TROPONIN T HIGH-SENSITIVITY SERIES (BASELINE, 2HR, 4HR, 6HR) STAT 08/12/2024 8:08 PM PROFESSOR OF COMMUNICATION COMPREHENSIVE METABOLIC PANEL STAT 08/12/2024 8:08 PM PROFESSOR OF COMMUNICATION CBC WITH AUTO DIFFERENTIAL STAT 08/12/2024 8:08 PM PROFESSOR OF COMMUNICATION XR CHEST PA LATERAL 2 VIEWS ED 08/12/2024 7:27 PM PROFESSOR OF COMMUNICATION ECG 12-LEAD STAT 08/12/2024 6:48 PM PROFESSOR OF COMMUNICATION XR CHEST PA LATERAL 2 VIEWS ED 08/11/2024 2:02 AM PROFESSOR OF COMMUNICATION ECG 12-LEAD STAT 08/11/2024 1:43 AM PROFESSOR OF COMMUNICATION XR CHEST PA LATERAL 2 VIEWS ED 08/08/2024 10:[address] HEAD WO CONTRAST ED 08/08/2024 1 0:34 PM PROFESSOR OF COMMUNICATION ECG 12-LEAD STAT 08/08/2024 8:56 PM PROFESSOR OF COMMUNICATION RESPIRATORY PATHOGEN PANEL Routine 08/06/2024 9:59 AM PROFESSOR OF COMMUNICATION from Last 3 Months Results * eGFR (09/11/2024 9:10 PM PROFESSOR OF COMMUNICATION) eGFR >90 >=60 mL/min/1. 73 m2 Comment: [...] last reviewed 2021. Blood 09/11/2024 9:10 PM PROFESSOR OF COMMUNICATION 09/11/2024 9:30 PM PROFESSOR OF COMMUNICATION us Salena Crawley MD LAB BLOOD ORDERABLES Fin al Result [facility] [address] [place] [address] * Differential, auto (09/11/2024 9:10 PM PROFESSOR OF COMMUNICATION) Neutrophil abs 3.8 1.5 - 6.5 K/cumm Imm gran abs 0.0 0.0 - 0.1 K/cumm [facility] Lymphocyte abs 1.1 0.8 - 3.3 K/cumm [facility] Monocyte abs 0.5 0.2 - 0.8 K/cumm [facility] Eosinophil abs 0.2 0.0 - 0.5 K/cumm [facility] Basophil abs 0.0 0.0 - 0.1 K/cumm [facility] Neutrophil pct 67.2 % [facility] Comment: Interpretive Data Percent cell count reference ranges are not reported, since discordance with absolute values may lead to misinterpretation of CBC data. Current Interpretive Data was last revised on 2017. Imm gran pct 0.4 % [facility] Comment: Interpretive Data Percent cell count reference ranges are not reported, since discordance with absolute values may lead to misinterpretation of CBC data. Current Interpretive Data was last revised on 2017. Lymphocyte pct 20.1 % [facility] Comment: Interpretive Data Percent cell count reference ranges are not reported, since discordance with absolute values may lead to misinterpretation of CBC data. Current Interpretive Data was last revised on 2017. Monocyte pct 8.6 % [facility] Comment: Interpretive Data Percent cell count reference ranges are not reported, since discordance with absolute values may lead to misinterpretation of CBC data. Current Interpretive Data was last revised on 2017. Eosinophil pct 3.2 % [facility] Comment: Interpretive Data Percent cell count reference ranges are not reported, since discordance with absolute values may lead to misinterpretation of CBC data. Current Interpretive Data was last revised on 2017. Basophil pct 0.5 % [facility] Comment: Interpretive Data Percent cell count reference ranges are not reported, since discordance with absolute values may lead to misinterpretation of CBC data. Current Interpretive Data was last revised on 2017. Blood 09/11/2024 9:10 PM PROFESSOR OF COMMUNICATION 09/11/2024 9:30 PM PROFESSOR OF COMMUNICATION us Salena Crawley MD LAB BLOOD ORDERABLES Fin al Result [facility] [address] [place] [address] * Pro B-type natriuretic peptide (09/11/2024 9:10 PM PROFESSOR OF COMMUNICATION) NT-proBNP <36 <=300 pg/mL Comment: Interpretive Comments: [...] Revised Date: 2018. Blood 09/11/2024 9:10 PM PROFESSOR OF COMMUNICATION 09/11/2024 9:30 PM PROFESSOR OF COMMUNICATION us Salena Crawley MD LAB BLOOD ORDERABLES Fin al Result [facility] [address] [place] [address] * CBC with auto differential (09/11/2024 9:10 PM PROFESSOR OF COMMUNICATION) WBC 5.7 3.8 - 9.9 K/cumm Hgb 13.1 13.0 - 17.5 g/dL [facility] Hct 40.0 38.9 - 50.3 % [facility] Plt 184 150 - 400 K/cumm [facility] MPV 10.6 9.1 - 12.3 fL [facility] RBC 4.43 4.30 - 5.80 M/cumm [facility] MCV 90.3 81.3 - 96.4 fL [facility] MCH 29.6 27.1 - 33.3 pg [facility] MCHC 32.8 32.3 - 35.7 g/dL [facility] RDW CV 12.7 11.1 - 14.9 % [facility] RDW SD 41.7 35.7 - 48.1 fL [facility] NRBC abs 0.00 0.00 - 0.01 K/cumm [facility] Blood 09/11/2024 9:10 PM PROFESSOR OF COMMUNICATION 09/11/2024 9:30 PM PROFESSOR OF COMMUNICATION us Salena Crawley MD LAB BLOOD ORDERABLES Fin al Result [facility] [address] Department [place] [address] * (ABNORMAL) Comprehensive metabolic panel (09/11/2024 9:10 PM PROFESSOR OF COMMUNICATION) Sodium 142 135 - 145 mmol/L Potassium, pl 4.3 3.3 - 4.9 mmol/L [facility] Chloride 101 97 - 110 mmol/L [facility] CO2 28 22 - 32 mmol/L [facility] Anion gap 13 2 - 15 mmol/L [facility] BUN 28(H) 6 - 25 mg/dL [facility] Creatinine 0.89 0.80 - 1.30 mg/dL [facility] Glucose 113 70 - 199 mg/dL [facility] Comment: Interpretive Data Fasting glucose >/= 126 [...] 2022. Calcium 9.2 8.5 - 10.3 mg/dL [facility] Bilirubin, total 0.8 0.1 - 1.2 mg/dL [facility] Protein, pl 6.7 6.5 - 8.5 g/dL [facility] Albumin 4.0 3.5 - 5.0 g/dL [facility] Alk phos 79 40 - 130 Units/L [facility] ALT 62(H) 7 - 55 Units/L [facility] AST 40 10 - 50 Units/L [facility] Comment:Slightly Hemolyzed S pecimen Blood 09/11/2024 9:10 PM PROFESSOR OF COMMUNICATION 09/11/2024 9:30 PM PROFESSOR OF COMMUNICATION us Salena Crawley MD LAB BLOOD ORDERABLES Fin al Result [facility] [address] [place] [address] * eGFR (09/07/2024 2:59 AM PROFESSOR OF COMMUNICATION) eGFR >90 >=60 mL/min/1. 73 m2 Comment: [...] last reviewed 2021. Blood 09/07/2024 2:59 AM PROFESSOR OF COMMUNICATION 09/07/2024 3:02 AM PROFESSOR OF COMMUNICATION us Jair Armendariz MD LAB BLOOD ORDERABLES Final Result Performing Organization Address City/[facility]/ZIP Co de Phone Number [facility] [address] [place] [address] * Differential, auto (09/07/2024 2:59 AM PROFESSOR OF COMMUNICATION) Neutrophil abs 3.0 1.5 - 6.5 K/cumm Imm gran abs 0.0 0.0 - 0.1 K/cumm [facility] Lymphocyte abs 2.1 0.8 - 3.3 K/cumm [facility] Monocyte abs 0.4 0.2 - 0.8 K/cumm [facility] Eosinophil abs 0.2 0.0 - 0.5 K/cumm [facility] Basophil abs 0.0 0.0 - 0.1 K/cumm [facility] Neutrophil pct 51.2 % [facility] Comment: Interpretive Data Percent cell count reference ranges are not reported, since discordance with absolute values may lead to misinterpretation of CBC data. Current Interpretive Data was last revised on 2017. Imm gran pct 0.3 % [facility] Comment: Interpretive Data Percent cell count reference ranges are not reported, since discordance with absolute values may lead to misinterpretation of CBC data. Current Interpretive Data was last revised on 2017. Lymphocyte pct 36.9 % [facility] Comment: Interpretive Data Percent cell count reference ranges are not reported, since discordance with absolute values may lead to misinterpretation of CBC data. Current Interpretive Data was last revised on 2017. Monocyte pct 6.9 % [facility] Comment: Interpretive Data Percent cell count reference ranges are not reported, since discordance with absolute values may lead to misinterpretation of CBC data. Current Interpretive Data was last revised on 2017. Eosinophil pct 4.0 % [facility] Comment: Interpretive Data Percent cell count reference ranges are not reported, since discordance with absolute values may lead to misinterpretation of CBC data. Current Interpretive Data was last revised on 2017. Basophil pct 0.7 % [facility] Comment: Interpretive Data Percent cell count reference ranges are not reported, since discordance with absolute values may lead to misinterpretation of CBC data. Current Interpretive Data was last revised on 2017. Blood 09/07/2024 2:59 AM PROFESSOR OF COMMUNICATION 09/07/2024 3:02 AM PROFESSOR OF COMMUNICATION us Jair Armendariz MD LAB BLOOD ORDERABLES Final Result [facility] [address] [facility] Department [place] [address] * (ABNORMAL) CBC with auto differential (09/07/2024 2:59 AM PROFESSOR OF COMMUNICATION) WBC 5.8 3.8 - 9.9 K/cumm Hgb 12.3(L) 13.0 - 17.5 g/dL [facility] Hct 37.2(L) 38.9 - 50.3 % [facility] Plt 163 150 - 400 K/cumm [facility] MPV 10.4 9.1 - 12.3 fL [facility] RBC 4.17(L) 4.30 - 5.80 M/cumm [facility] MCV 89.2 81.3 - 96.4 fL [facility] MCH 29.5 27.1 - 33.3 pg [facility] MCHC 33.1 32.3 - 35.7 g/dL [facility] RDW CV 12.6 11.1 - 14.9 % [facility] RDW SD 41.1 35.7 - 48.1 fL [facility] NRBC abs 0.00 0.00 - 0.01 K/cumm [facility] Blood 09/07/2024 2:59 AM PROFESSOR OF COMMUNICATION 09/07/2024 3:02 AM PROFESSOR OF COMMUNICATION us Jair Armendariz MD LAB BLOOD ORDERABLES Final Result [facility] [address] [facility] Department [place] [address] * Basic metabolic panel (09/07/2024 2:59 AM PROFESSOR OF COMMUNICATION) Pathologist [facility] Sodium 143 135 - 145 mmol/L Potassium, pl 4.4 3.3 - 4.9 mmol/L [facility] Chloride 109 97 - 110 mmol/L [facility] CO2 25 22 - 32 mmol/L [facility] Anion gap 9 2 - 15 mmol/L [facility] BUN 24 6 - 25 mg/dL [facility] Creatinine 0.87 0.80 - 1.30 mg/dL [facility] Glucose 86 70 - 199 mg/dL [facility] Comment: Interpretive Data Fasting glucose >/= 126 [...] 2022. Calcium 9.1 8.5 - 10.3 mg/dL [facility] Blood 09/07/2024 2:59 AM PROFESSOR OF COMMUNICATION 09/07/2024 3:02 AM PROFESSOR OF COMMUNICATION us Jair Armendariz MD LAB BLOOD ORDERABLES Final Result [facility] [address] [facility] [place] [address] * US Vein Duplex Lower Extremity Bilateral Complete (09/03/2024 7:37 PM PROFESSOR OF COMMUNICATION) Anatomical Region Laterality Modality Vascular Bilateral Ultrasound 09/04/2024 2:26 PM PROFESSOR OF COMMUNICATION Impressions 09/04/2024 2:26 PM PROFESSOR OF COMMUNICATION 1. No evidence of DVT in the lower extremities bilaterally. 2. Evidence of pulsatile venous flow. This may suggest increased intravascular volume or right-sided valvular heart disease. Clinical correlation suggested. 3. No change when compared to previous studies. Electronically signed by: Lv Smart M.D. Narrative 09/04/2024 2:26 PM PROFESSOR OF COMMUNICATION Lower Extremity Vein Duplex Bilateral DATE: 09/03/2024 [...] studies. Electronically signed by: Lv Smart M.D. us Ofelia Stanley MD IMG US PROCEDURES Final Re sult * MRI Shoulder Right WO Contrast (09/02/2024 9:06 AM PROFESSOR OF COMMUNICATION) Anatomical Region Laterality Modality Upper Extremities Right Magnetic Reson ance 09/02/2024 11:0 8 AM PROFESSOR OF COMMUNICATION Impressions 09/02/2024 12:42 PM PROFESSOR OF COMMUNICATION 1. Minimal right rotator cuff tendinopathy without [...] Gudelia Berger MD Narrative 09/02/2024 12:42 PM PROFESSOR OF COMMUNICATION EXAMINATION: 1. MRI right shoulder without contrast [...] it. Electronically signed by: Gudelia Berger MD Qi Donald NP IMG MRI PROCEDURES Final Re sult * XR Ankle Right 2 Views (09/01/2024 9:33 PM PROFESSOR OF COMMUNICATION) Anatomical Region Laterality Modality Lower Extremities, Ankle Right Compute d Radiography 09/02/2024 8:13 AM PROFESSOR OF COMMUNICATION Impressions 09/02/2024 8:13 AM PROFESSOR OF COMMUNICATION There is mild swelling about the right ankle. There is a fracture of the base of 5th metacarpal, similar to prior. No additional fractures. The joints are normal. Electronically signed by: Brice Mantilla M.D. Narrative 09/02/2024 8:13 AM PROFESSOR OF COMMUNICATION EXAMINATION: XR ANKLE RIGHT 2 VIEWS HISTORY: [...] Fibula Right 2 views (09/01/2024 8:37 AM PROFESSOR OF COMMUNICATION) Anatomical Region Laterality Modality Lower Extremities, Lower Leg Right Com puted Radiography 09/01/2024 8:45 AM PROFESSOR OF COMMUNICATION Impressions 09/01/2024 8:45 AM PROFESSOR OF COMMUNICATION No acute fracture of the tibia or fibula. Alignment is normal. Electronically signed by: Greg Joy M.D. Narrative 09/01/2024 8:45 AM PROFESSOR OF COMMUNICATION EXAMINATION: XR TIBIA FIBULA RIGHT2 VIEWS HISTORY: Pain s/p twisting injury Procedure Note Greg Joy MD - 09/01/2024 EXAMINATION: XR TIBIA FIBULA RIGHT2 VIEWS HISTORY: Pain s/p twisting injury IMPRESSION: No acute fracture of the tibia or fibula. Alignment is normal. Electronically signed by: Greg Joy M.D. Terry MARQUES [facility] XR PROCEDURES F inal Result * XR Ankle Right 3 or More Views (08/31/2024 10:35 PM PROFESSOR OF COMMUNICATION) Anatomical Region Laterality Modality Lower Extremities, Ankle Right Compute d Radiography 09/01/2024 11:1 6 AM PROFESSOR OF COMMUNICATION Impressions 09/01/2024 11:16 AM PROFESSOR OF COMMUNICATION Comparison is made to a prior study [...] Ness Liz M.D. Narrative 09/01/2024 11:16 AM PROFESSOR OF COMMUNICATION EXAMINATION: XR ANKLE RIGHT 3 OR MORE [...] 3 or More Views (08/31/2024 10:34 PM PROFESSOR OF COMMUNICATION) Anatomical Region Laterality Modality Lower Extremities, Foot Right Computed Radiography 09/01/2024 11:1 6 AM PROFESSOR OF COMMUNICATION Impressions 09/01/2024 11:16 AM PROFESSOR OF COMMUNICATION Comparison is made to a prior study [...] Ness Liz M.D. Narrative 09/01/2024 11:16 AM PROFESSOR OF COMMUNICATION EXAMINATION: XR ANKLE RIGHT 3 OR MORE [...] Sepsis Lactate w/ Reflex (08/23/2024 2:33 AM PROFESSOR OF COMMUNICATION) Sepsis Lactate 0.7 0.7 - 2.0 mmol/L Blood 08/23/2024 2:33 AM PROFESSOR OF COMMUNICATION 08/23/2024 2:46 AM PROFESSOR OF COMMUNICATION Salena Crawley MD LAB BLOOD ORDERABLES Fin al Result [facility] [address] Department [place] [address] * eGFR (08/23/2024 2:33 AM PROFESSOR OF COMMUNICATION) eGFR >90 >=60 mL/min/1. 73 m2 Comment: [...] last reviewed 2021. Blood 08/23/2024 2:33 AM PROFESSOR OF COMMUNICATION 08/23/2024 3:24 AM PROFESSOR OF COMMUNICATION us Salena Crawley MD LAB BLOOD ORDERABLES Fin al Result [facility] [address] [place] [address] * Differential, auto (08/23/2024 2:33 AM PROFESSOR OF COMMUNICATION) Neutrophil abs 3.1 1.5 - 6.5 K/cumm Imm gran abs 0.0 0.0 - 0.1 K/cumm [facility] Lymphocyte abs 2.0 0.8 - 3.3 K/cumm [facility] Monocyte abs 0.5 0.2 - 0.8 K/cumm [facility] Eosinophil abs 0.2 0.0 - 0.5 K/cumm [facility] Basophil abs 0.1 0.0 - 0.1 K/cumm [facility] Neutrophil pct 53.2 % [facility] Comment: Interpretive Data Percent cell count reference ranges are not reported, since discordance with absolute values may lead to misinterpretation of CBC data. Current Interpretive Data was last revised on 2017. Imm gran pct 0.2 % [facility] Comment: Interpretive Data Percent cell count reference ranges are not reported, since discordance with absolute values may lead to misinterpretation of CBC data. Current Interpretive Data was last revised on 2017. Lymphocyte pct 34.0 % [facility] Comment: Interpretive Data Percent cell count reference ranges are not reported, since discordance with absolute values may lead to misinterpretation of CBC data. Current Interpretive Data was last revised on 2017. Monocyte pct 7.8 % [facility] Comment: Interpretive Data Percent cell count reference ranges are not reported, since discordance with absolute values may lead to misinterpretation of CBC data. Current Interpretive Data was last revised on 2017. Eosinophil pct 3.8 % [facility] Comment: Interpretive Data Percent cell count reference ranges are not reported, since discordance with absolute values may lead to misinterpretation of CBC data. Current Interpretive Data was last revised on 2017. Basophil pct 1.0 % [facility] Comment: Interpretive Data Percent cell count reference ranges are not reported, since discordance with absolute values may lead to misinterpretation of CBC data. Current Interpretive Data was last revised on 2017. Blood 08/23/2024 2:33 AM PROFESSOR OF COMMUNICATION 08/23/2024 3:24 AM PROFESSOR OF COMMUNICATION us Salena Crawley MD LAB BLOOD ORDERABLES Fin al Result [facility] [address] [place] [address] * Pro B-type natriuretic peptide (08/23/2024 2:33 AM PROFESSOR OF COMMUNICATION) NT-proBNP <36 <=300 pg/mL Comment: Interpretive Comments: [...] CAMP et.al. Eur Heart J. 2006:27:330-337. 2. Troughton RW, Caryn MORAN. J. AM [facility]: Cardiovasc Imag. 2009;2: 216- 225. Interpretive Data Last Revised Date: 2018. Blood 08/23/2024 2:33 AM PROFESSOR OF COMMUNICATION 08/23/2024 3:24 AM PROFESSOR OF COMMUNICATION Salena Crawley MD LAB BLOOD ORDERABLES Fin al Result Performing Organization Address [facility]/ZIP Co de Phone Number [facility] [address] [place] [place] [address] * (ABNORMAL) CBC with auto differential (08/23/2024 2:33 AM PROFESSOR OF COMMUNICATION) [facility] WBC 5.8 3.8 - 9.9 K/cumm Hgb 12.9(L) 13.0 - 17.5 g/dL [facility] Hct 39.2 38.9 - 50.3 % [facility] Plt 205 150 - 400 K/cumm [facility] MPV 10.8 9.1 - 12.3 fL [facility] RBC 4.39 4.30 - 5.80 M/cumm [facility] MCV 89.3 81.3 - 96.4 fL [facility] MCH 29.4 27.1 - 33.3 pg [facility] MCHC 32.9 32.3 - 35.7 g/dL [facility] RDW CV 12.8 11.1 - 14.9 % [facility] RDW SD 41.8 35.7 - 48.1 fL [facility] NRBC abs 0.00 0.00 - 0.01 K/cumm [facility] Blood 08/23/2024 2:33 AM PROFESSOR OF COMMUNICATION 08/23/2024 3:24 AM PROFESSOR OF COMMUNICATION Salena Crawley MD LAB BLOOD ORDERABLES Fin al Result Performing Organization Address [facility]/ZIP Co de Phone Number [facility] [address] [place] [address] * Blood culture Blood (08/23/2024 2:33 AM PROFESSOR OF COMMUNICATION) Report Final Report: No growth Blood 08/23/2024 2:33 AM PROFESSOR OF COMMUNICATION 08/23/2024 2:47 AM PROFESSOR OF COMMUNICATION Narrative [facility] - 08/28/2024 7:01 AM PROFESSOR OF COMMUNICATION From a different site than #1. Collection->Peripheral [...] organism identification may be performed using the its learning Blood Culture Identification panel. This assay detects microbial DNA in a blood culture broth. This assay has been cleared by the [place] Food and Drug Administration and its performance characteristics have been verified by the [facility]. Interpretive data was last revised on September 03, 2022. Salena Crawley MD LAB MICROBIOLOGY - [facility] ORDERABLES Final Result [facility] [address] [place] [address] * Blood culture Blood (08/23/2024 2:33 AM PROFESSOR OF COMMUNICATION) Report Final Report: No growth Blood 08/23/2024 2:33 AM PROFESSOR OF COMMUNICATION 08/23/2024 2:48 AM PROFESSOR OF COMMUNICATION Narrative [facility] - 08/28/2024 7:01 AM PROFESSOR OF COMMUNICATION Collection->Peripheral Interpretive Data 1. Blood cultures are incubated and monitored continuously for 5 days (120 hours). The first negative report is issued within 24 hours of receipt in the laboratory. 2. All positive cultures are resulted and called to physicians/care providers as soon as they are detected. 3. A rapid molecular test for organism identification may be performed using the its learning Blood Culture Identification panel. This assay detects microbial DNA in a blood culture broth. This assay has been cleared by the [place] Food and Drug Administration and its performance characteristics have been verified by the [facility]. Interpretive data was last revised on September 03, 2022. Salena Crawley MD LAB MICROBIOLOGY - GENER AL ORDERABLES Final Result [facility] [address] [place] [address] * (ABNORMAL) Comprehensive metabolic panel (08/23/2024 2:33 AM PROFESSOR OF COMMUNICATION) Sodium 140 135 - 145 mmol/L Potassium, pl 3.9 3.3 - 4.9 mmol/L [facility] Chloride 104 97 - 110 mmol/L [facility] CO2 25 22 - 32 mmol/L [facility] Anion gap 11 2 - 15 mmol/L [facility] BUN 24 6 - 25 mg/dL [facility] Creatinine 0.82 0.80 - 1.30 mg/dL [facility] Glucose 83 70 - 199 mg/dL [facility] Comment: Interpretive Data Fasting glucose >/= 126 [...] 2022. Calcium 9.3 8.5 - 10.3 mg/dL [facility] Bilirubin, total 0.6 0.1 - 1.2 mg/dL [facility] Protein, pl 6.9 6.5 - 8.5 g/dL [facility] Albumin 4.0 3.5 - 5.0 g/dL [facility] Alk phos 70 40 - 130 Units/L [facility] ALT 65(H) 7 - 55 Units/L [facility] AST 30 10 - 50 Units/L [facility] Comment:Slightly Hemolyzed S pecimen Blood 08/23/2024 2:33 AM PROFESSOR OF COMMUNICATION 08/23/2024 3:24 AM PROFESSOR OF COMMUNICATION Salena Crawley MD LAB BLOOD ORDERABLES Fin al Result Performing Organization Address City/[facility]/ZIP Co de Phone Number [facility] [address] [place] [address] * ECG 12 lead (08/23/2024 2:32 AM PROFESSOR OF COMMUNICATION) 08/23/2024 2:32 AM PROFESSOR OF COMMUNICATION Narrative [facility] - 08/24/2024 4:38 PM PROFESSOR OF COMMUNICATION Vent Rate: 64 bpm RR Interval: 935 msec CA Interval: 174 msec QRS Duration: 109 msec QT Interval: 409 msec QTC Interval: 418 msec P-R-T [place]: 68 - 81 - 41 degrees IMPRESSION: SINUS RHYTHM NORMAL ECG Electronically Signed By: Andrea Moralez MD [facility] Salena Crawley MD ECG ORDERABLES Final Re sult Performing Organization Address [facility] Co de Phone Number [facility] [employer] [facility] * eGFR (08/21/2024 12:35 AM PROFESSOR OF COMMUNICATION) eGFR >90 >=60 mL/min/1. 73 m2 Comment: [...] reviewed 2021. Blood 08/21/2024 12:3 5 AM PROFESSOR OF COMMUNICATION 08/21/2024 12:40 AM PROFESSOR OF COMMUNICATION us Magalis MARQUES LAB BLOOD ORDERABLE S Final Result [address] [place] [address] * Differential, auto (08/21/2024 12:35 AM PROFESSOR OF COMMUNICATION) Pathologist [facility] Neutrophil abs 3.7 1.5 - 6.5 K/cumm Imm gran abs 0.0 0.0 - 0.1 K/cumm [facility] Lymphocyte abs 2.2 0.8 - 3.3 K/cumm [facility] Monocyte abs 0.6 0.2 - 0.8 K/cumm [facility] Eosinophil abs 0.3 0.0 - 0.5 K/cumm [facility] Basophil abs 0.1 0.0 - 0.1 K/cumm [facility] Neutrophil pct 54.1 % [facility] Comment: Interpretive Data Percent cell count reference ranges are not reported, since discordance with absolute values may lead to misinterpretation of CBC data. Current Interpretive Data was last revised on 2017. Imm gran pct 0.1 % [facility] Comment: Interpretive Data Percent cell count reference ranges are not reported, since discordance with absolute values may lead to misinterpretation of CBC data. Current Interpretive Data was last revised on 2017. Lymphocyte pct 32.5 % [facility] Comment: Interpretive Data Percent cell count reference ranges are not reported, since discordance with absolute values may lead to misinterpretation of CBC data. Current Interpretive Data was last revised on 2017. Monocyte pct 8.3 % [facility] Comment: Interpretive Data Percent cell count reference ranges are not reported, since discordance with absolute values may lead to misinterpretation of CBC data. Current Interpretive Data was last revised on 2017. Eosinophil pct 4.3 % [facility] Comment: Interpretive Data Percent cell count reference ranges are not reported, since discordance with absolute values may lead to misinterpretation of CBC data. Current Interpretive Data was last revised on 2017. Basophil pct 0.7 % [facility] Comment: Interpretive Data Percent cell count reference ranges are not reported, since discordance with absolute values may lead to misinterpretation of CBC data. Current Interpretive Data was last revised on 2017. Blood 08/21/2024 12:3 5 AM PROFESSOR OF COMMUNICATION 08/21/2024 12:40 AM PROFESSOR OF COMMUNICATION Magalis MARQUES LAB BLOOD ORDERABLE S Final Result Performing Organization Address City/[facility]/ZIP Co de Phone Number [address] [place] [address] * (ABNORMAL) CBC with auto differential (08/21/2024 12:35 AM PROFESSOR OF COMMUNICATION) WBC 6.9 3.8 - 9.9 K/cumm Hgb 12.1(L) 13.0 - 17.5 g/dL [facility] Hct 36.8(L) 38.9 - 50.3 % [facility] Plt 200 150 - 400 K/cumm [facility] MPV 10.1 9.1 - 12.3 fL [facility] RBC 4.14(L) 4.30 - 5.80 M/cumm [facility] MCV 88.9 81.3 - 96.4 fL [facility] MCH 29.2 27.1 - 33.3 pg [facility] MCHC 32.9 32.3 - 35.7 g/dL [facility] RDW CV 12.8 11.1 - 14.9 % [facility] RDW SD 41.5 35.7 - 48.1 fL [facility] NRBC abs 0.00 0.00 - 0.01 K/cumm [facility] Blood 08/21/2024 12:3 5 AM PROFESSOR OF COMMUNICATION 08/21/2024 12:40 AM PROFESSOR OF COMMUNICATION Magalis MARQUES LAB BLOOD ORDERABLE S Final Result [address] [place] [address] * Erythrocyte sedimentation rate (08/21/2024 12:35 AM PROFESSOR OF COMMUNICATION) [facility] Erythrocyte sedimentation rate 5 1 - 15 mm/hr [facility] Blood 08/21/2024 12:3 5 AM PROFESSOR OF COMMUNICATION 08/21/2024 12:40 AM PROFESSOR OF COMMUNICATION Magalis MARQUES LAB BLOOD ORDERABLE S Final Result Performing Organization Address City/[facility]/ZIP Co de Phone Number [address] [place] [address] * CRP (acute phase) (08/21/2024 12:35 AM PROFESSOR OF COMMUNICATION) [facility] CRP <3.5 <=10.0 mg/L Blood 08/21/2024 12:3 5 AM PROFESSOR OF COMMUNICATION 08/21/2024 12:40 AM PROFESSOR OF COMMUNICATION Magalis MARQUES LAB BLOOD ORDERABLE S Final Result Performing Organization Address City/[facility] Co de Phone Number [address] [address] * (ABNORMAL) Basic metabolic panel (08/21/2024 12:35 AM PROFESSOR OF COMMUNICATION) [facility] Sodium 140 135 - 145 mmol/L Potassium, pl 4.2 3.3 - 4.9 mmol/L [facility] Chloride 104 97 - 110 mmol/L [facility] CO2 26 22 - 32 mmol/L [facility] Anion gap 10 2 - 15 mmol/L [facility] BUN 34(H) 6 - 25 mg/dL [facility] Creatinine 0.91 0.80 - 1.30 mg/dL [facility] Glucose 96 70 - 199 mg/dL [facility] Comment: Interpretive Data Fasting glucose >/= 126 [...] 2022. Calcium 9.1 8.5 - 10.3 mg/dL [facility] Blood 08/21/2024 12:3 5 AM PROFESSOR OF COMMUNICATION 08/21/2024 12:40 AM PROFESSOR OF COMMUNICATION Magalis MARQUES LAB BLOOD ORDERABLE S Final Result Performing Organization Address City/[facility]/ZIP Co de Phone Number [facility] [address] [facility] [place] [address] * Streptococcus Group A PCR Throat (08/20/2024 9:19 AM PROFESSOR OF COMMUNICATION) [facility] Strep A DNA Not Detected Not Detected Comment: This test is performed using the uTaP Xpert Group A Streptococcal Assay. This is [...] the performing laboratory. Throat 08/20/2024 9:19 AM PROFESSOR OF COMMUNICATION 08/20/2024 9:22 AM PROFESSOR OF COMMUNICATION Fei Murray MD LAB MICROBIOLOGY - GENERAL ORDERABLES Final Result Performing Organization Address City/[facility]/ZIP Co de Phone Number [facility] [address] Department [place] [address] [facility] * Respiratory pathogen panel Nasopharyngeal (08/20/2024 9:19 AM PROFESSOR OF COMMUNICATION) Influenza A RNA Not Detected Not Detected Influenza B RNA Not Detected Not Detected [facility] RSV RNA Not Detected Not Detected [facility] COVID-19 RNA Not Detected Not Detected [facility] Coronavirus 229E RNA Not Detected Not Detected [facility] Coronavirus HKU1 RNA Not Detected Not Detected [facility] Coronavirus NL63 RNA Not Detected Not Detected [facility] Coronavirus OC43 RNA Not Detected Not Detected [facility] Adenovirus DNA Not Detected Not Detected [facility] Metapneumovirus RNA Not Detected Not Detected [facility] Rhinovirus/Enterov irus RNA Not Detected Not Detected [facility] Parainfluenza 1 RNA Not Detected Not Detected [facility] Parainfluenza 2 RNA Not Detected Not Detected [facility] Parainfluenza 3 RNA Not Detected Not Detected [facility] Parainfluenza 4 RNA Not Detected Not Detected [facility] B. pertussis DNA Not Detected Not Detected [facility] B. parapertussis DNA Not Detected Not Detected [facility] C. pneumoniae DNA Not Detected Not Detected [facility] M. pneumoniae DNA Not Detected Not Detected [facility] Comment: Interpretive Data The Adictiz FilmArray Respiratory Panel (RP2.1) assay is a [...] assay has FDA clearance for testing of DESIGN TEACHER swabs. The performance characteristics of this assay have been determined by [facility]. Current interpretive data was last revised on 2021. Nasopharyngeal 08/20/2024 9: 19 AM PROFESSOR OF COMMUNICATION 08/20/2024 9:22 AM PROFESSOR OF COMMUNICATION Narrative JADA - 08/20/2024 10:22 AM PROFESSOR OF COMMUNICATION Is the Patient experiencing symptoms consistent with COVID?->Yes Surveillance testing for transplant patient?->No Fei Murray MD LAB MICROBIOLOGY - GENERAL ORDERABLES Final Result JADA [address] [place] [address] * (ABNORMAL) D-dimer, quantitative (08/15/2024 1:08 AM PROFESSOR OF COMMUNICATION) D-Dimer 647(H) <=499 ng/mL FEU Comment: Interpretive [...] VTE cut-off 680 ng/ml FEU. References; Owen GRESHAM et al. Brit Med J. 2013;346:f2492. Carlitos et al. Annals Int Med. 2015;163:701-11. Current interpretive data was last revised on 2019. Blood 08/15/2024 1:08 AM PROFESSOR OF COMMUNICATION 08/15/2024 1:11 AM PROFESSOR OF COMMUNICATION Maddison Muhammad NP LAB BLOOD ORDERABLES Final Resul t Performing Organization Address [facility] Co de Phone Number [facility] [address] [employer] [place], [place] [id number] * eGFR (08/14/2024 9:59 PM PROFESSOR OF COMMUNICATION) eGFR >90 >=60 mL/min/1. 73 m2 Comment: [...] last reviewed 2021. Blood 08/14/2024 9:59 PM PROFESSOR OF COMMUNICATION 08/14/2024 10:10 PM PROFESSOR OF COMMUNICATION us Abigail Richards MD LAB BLOOD ORDERABLES Final Result Performing Organization Address [facility]/ZIP Co de Phone Number [facility] [address] [employer]. [place] [address] * Differential, auto (08/14/2024 9:59 PM PROFESSOR OF COMMUNICATION) Neutrophil abs 3.7 1.5 - 6.5 K/cumm Imm gran abs 0.0 0.0 - 0.1 K/cumm [facility] Lymphocyte abs 2.0 0.8 - 3.3 K/cumm [facility] Monocyte abs 0.5 0.2 - 0.8 K/cumm [facility] Eosinophil abs 0.2 0.0 - 0.5 K/cumm [facility] Basophil abs 0.1 0.0 - 0.1 K/cumm [facility] Neutrophil pct 57.5 % [facility] Comment: Interpretive Data Percent cell count reference ranges are not reported, since discordance with absolute values may lead to misinterpretation of CBC data. Current Interpretive Data was last revised on 2017. Imm gran pct 0.2 % [facility] Comment: Interpretive Data Percent cell count reference ranges are not reported, since discordance with absolute values may lead to misinterpretation of CBC data. Current Interpretive Data was last revised on 2017. Lymphocyte pct 30.2 % [facility] Comment: Interpretive Data Percent cell count reference ranges are not reported, since discordance with absolute values may lead to misinterpretation of CBC data. Current Interpretive Data was last revised on 2017. Monocyte pct 7.6 % [facility] Comment: Interpretive Data Percent cell count reference ranges are not reported, since discordance with absolute values may lead to misinterpretation of CBC data. Current Interpretive Data was last revised on 2017. Eosinophil pct 3.4 % [facility] Comment: Interpretive Data Percent cell count reference ranges are not reported, since discordance with absolute values may lead to misinterpretation of CBC data. Current Interpretive Data was last revised on 2017. Basophil pct 1.1 % [facility] Comment: Interpretive Data Percent cell count reference ranges are not reported, since discordance with absolute values may lead to misinterpretation of CBC data. Current Interpretive Data was last revised on 2017. Blood 08/14/2024 9:59 PM PROFESSOR OF COMMUNICATION 08/14/2024 10:10 PM PROFESSOR OF COMMUNICATION us Abigail Richards MD LAB BLOOD ORDERABLES Final Result Performing Organization Address City/[facility]/ZIP Co de Phone Number JADA AGRAWAL[facility] [address] [facility] [place] [address] * Pro B-type natriuretic peptide (08/14/2024 9:59 PM PROFESSOR OF COMMUNICATION) NT-proBNP 75 <=300 pg/mL Comment: Interpretive Comments: [...] Revised Date: 2018. Blood 08/14/2024 9:59 PM PROFESSOR OF COMMUNICATION 08/14/2024 10:10 PM PROFESSOR OF COMMUNICATION Abigail Richards MD LAB BLOOD ORDERABLES Final Result Performing Organization Address [facility] Co de Phone Number JADA AGRAWAL [address] [facility] [place] [address] * CBC with auto differential (08/14/2024 9:59 PM PROFESSOR OF COMMUNICATION) WBC 6.5 3.8 - 9.9 K/cumm Hgb 13.3 13.0 - 17.5 g/dL [facility] Hct 39.8 38.9 - 50.3 % [facility] Plt 218 150 - 400 K/cumm [facility] MPV 10.0 9.1 - 12.3 fL [facility] RBC 4.49 4.30 - 5.80 M/cumm [facility] MCV 88.6 81.3 - 96.4 fL [facility] MCH 29.6 27.1 - 33.3 pg [facility] MCHC 33.4 32.3 - 35.7 g/dL [facility] RDW CV 12.7 11.1 - 14.9 % [facility] RDW SD 41.1 35.7 - 48.1 fL [facility] NRBC abs 0.00 0.00 - 0.01 K/cumm [facility] Blood (Blood, Venous) 08/14/2024 9:59 PM PROFESSOR OF COMMUNICATION 08/14/2024 10:10 PM PROFESSOR OF COMMUNICATION Abigail Richards MD LAB BLOOD ORDERABLES Final Result Performing Organization Address [facility] Co de Phone Number JADA [facility] [address] [facility] [place] [address] * Lipase (08/14/2024 9:59 PM PROFESSOR OF COMMUNICATION) Pathologist [facility] Lipase 50 10 - 99 Units/L Blood (Blood, Venous) 08/14/2024 9:59 PM PROFESSOR OF COMMUNICATION 08/14/2024 10:10 PM PROFESSOR OF COMMUNICATION Abigail Richards MD LAB BLOOD ORDERABLES Final Result Performing Organization Address [facility] Co de Phone Number JADA AGRAWAL [address] [facility]. [place] [address] * (ABNORMAL) Comprehensive metabolic panel (08/14/2024 9:59 PM PROFESSOR OF COMMUNICATION) Sodium 139 135 - 145 mmol/L Potassium, [...] Units/L [facility] Blood 08/14/2024 9:59 PM PROFESSOR OF COMMUNICATION 08/14/2024 10:10 PM PROFESSOR OF COMMUNICATION us Abigail Richards MD LAB BLOOD ORDERABLES Final Result JADA AGRAWAL [address] [facility]. [place] [address] * TRANSTHORACIC ECHO (TTE) COMPLETE W DOPPLER/CF WO CONTRAST (08/14/2024 11:39 AM PROFESSOR OF COMMUNICATION) LV EF 55-60 % CONS SCIMAGE Anatomical Region Laterality Modality Ultrasound 08/14/2024 10:0 7 AM PROFESSOR OF COMMUNICATION Narrative 08/14/2024 11:[address] [facility] [address] [place] [address] ECHOCARDIOGRAM Patient Name: LISA MCCOY : 1980 (43y 11m) Gender: M Study Date: 08/14/2024 10:07:30 AM Ht(Inch): 68 Wt(Lb): 173.06 BSA: 1.94 Digital Campaign Specialist: NINFA Location: [id number] Order Provider: PHOEBE ADKINS BMI: 26.31 BP: [...] Jerel Ramirez MD PhD 08/14/2024 11:48:00 AM PROFESSOR OF COMMUNICATION Procedure Note Jerel Ramirez MD PhD - 08/14/2024 [place] [id number] [place] [address] ECHOCARDIOGRAM Patient Name: LISA MCCOY : 1980 (43y 11m) Gender: M Study Date: 08/14/2024 10:07:30 AM Ht(Inch): 68 Wt(Lb): 173.06 BSA: 1.94 Digital Campaign Specialist: NINFA Location: [id number] Order Provider: PHOEBE ADKINS BMI: 26.31 BP: [...] Jerel Ramirez MD PhD 08/14/2024 11:48:00 AM PROFESSOR OF COMMUNICATION us Phoebe Adkins MD CV ECHO PROCEDURES Final Result * eGFR (08/13/2024 5:30 AM PROFESSOR OF COMMUNICATION) [facility] eGFR >90 >=60 mL/min/1. 73 m2 Comment: [...] last reviewed 2021. Blood 08/13/2024 5:30 AM PROFESSOR OF COMMUNICATION 08/13/2024 6:25 AM PROFESSOR OF COMMUNICATION Hossein Juan Adkins MD LAB BLOOD ORDERABLES Final Resul t [facility] [address] Department of Laboratories [place], [place] [id number] * (ABNORMAL) CBC without differential (08/13/2024 5:30 AM PROFESSOR OF COMMUNICATION) [facility] WBC 5.7 3.8 - 9.9 K/cumm Hgb 11.9(L) 13.0 - 17.5 g/dL [facility] Hct 36.4(L) 38.9 - 50.3 % [facility] Plt 186 150 - 400 K/cumm [facility] MPV 10.6 9.1 - 12.3 fL [facility] RBC 4.01(L) 4.30 - 5.80 M/cumm [facility] MCV 90.8 81.3 - 96.4 fL [facility] MCH 29.7 27.1 - 33.3 pg [facility] MCHC 32.7 32.3 - 35.7 g/dL [facility] RDW CV 13.0 11.1 - 14.9 % [facility] RDW SD 43.0 35.7 - 48.1 fL [facility] NRBC abs 0.00 0.00 - 0.01 K/cumm [facility] Blood 08/13/2024 5:30 AM PROFESSOR OF COMMUNICATION 08/13/2024 6:25 AM PROFESSOR OF COMMUNICATION us Phoebe Adkins MD LAB BLOOD ORDERABLES Final Resul t Performing Organization Address City/[facility] Co de Phone Number [place] [phone] [facility] [place] [address] * Phosphorus (08/13/2024 5:30 AM PROFESSOR OF COMMUNICATION) Phosphorus, pl 2.9 2.3 - 4.5 mg/dL Blood 08/13/2024 5:30 AM PROFESSOR OF COMMUNICATION 08/13/2024 6:25 AM PROFESSOR OF COMMUNICATION Phoebe Adkins MD LAB BLOOD ORDERABLES Final Resul t Performing Organization Address [facility] Co de Phone Number [place] [phone] [place] [address] * Magnesium (08/13/2024 5:30 AM PROFESSOR OF COMMUNICATION) Magnesium 1.9 1.4 - 2.5 mg/dL Blood 08/13/2024 5:30 AM PROFESSOR OF COMMUNICATION 08/13/2024 6:25 AM PROFESSOR OF COMMUNICATION us Phoebe Adkins MD LAB BLOOD ORDERABLES Final Resul t Performing Organization Address [facility] Co de Phone Number [place] [phone] [place] [address] * Ferritin (08/13/2024 5:30 AM PROFESSOR OF COMMUNICATION) Ferritin 39 30 - 400 ng/mL Blood 08/13/2024 5:30 AM PROFESSOR OF COMMUNICATION 08/13/2024 6:24 AM PROFESSOR OF COMMUNICATION Phoebe Adkins MD LAB BLOOD ORDERABLES Final Resul t Performing Organization Address [facility] de Phone Number [facility] [address] [facility] [place] [address] * (ABNORMAL) Hepatic function panel (08/13/2024 5:30 AM PROFESSOR OF COMMUNICATION) [facility] Bilirubin, total 0.4 0.1 - 1.2 mg/dL Bilirubin, direct <0.2 0.1 - 0.3 mg/dL [facility] Protein, pl 5.9(L) 6.5 - 8.5 g/dL [facility] Albumin 3.5 3.5 - 5.0 g/dL [facility] Alk phos 71 40 - 130 Units/L [facility] ALT 200(H) 7 - 55 Units/L [facility] AST 101(H) 10 - 50 Units/L [facility] Blood 08/13/2024 5:30 AM PROFESSOR OF COMMUNICATION 08/13/2024 6:25 AM PROFESSOR OF COMMUNICATION Russ Adkins MD LAB BLOOD ORDERABLES Final Resul t Performing Organization Address [facility] de Phone Number [facility] [address] [place] [address] * (ABNORMAL) Basic metabolic panel (08/13/2024 5:30 AM PROFESSOR OF COMMUNICATION) [facility] Sodium 140 135 - 145 mmol/L Potassium, pl 4.1 3.3 - 4.9 mmol/L [facility] Chloride 106 97 - 110 mmol/L [facility] CO2 24 22 - 32 mmol/L [facility] Anion gap 10 2 - 15 mmol/L [facility] BUN 23 6 - 25 mg/dL [facility] Creatinine 0.82 0.80 - 1.30 mg/dL [facility] Glucose 87 70 - 199 mg/dL [facility] Comment: Interpretive Data Fasting glucose >/= 126 [...] 2022. Calcium 8.1(L) 8.5 - 10.3 mg/dL [facility] Blood 08/13/2024 5:30 AM PROFESSOR OF COMMUNICATION 08/13/2024 6:25 AM PROFESSOR OF COMMUNICATION us Phoebe Adkins MD LAB BLOOD ORDERABLES Final Resul t [facility] [address] [place] [address] * Drugs of Abuse Screen, Urine with Reflex Confirmation (08/13/2024 12:15 AM PROFESSOR OF COMMUNICATION) Amphetamine, ur Not Detected CutOff 500ng/mL Comment: Interpretive Data - Amphetamines: Samples containing greater than 500 ng/mL d-methamphetamine or other cross-reacting amphetamine compounds are reported as positive. Amphetamine immunoassays are subject to significant false positive rates due to cross-reactivity of non-amphetamine drugs. Confirmatory testing required for definitive results. Current Interpretive Data was last reviewed 2023. Barbiturates, ur Not Detected CutOff 200ng/mL [facility] Comment: Interpretive Data - Barbiturates: Samples containing greater than 200 ng/mL secobarbital or other cross-reacting barbiturate compounds are reported as positive. False positive and false negative results are possible. Confirmatory testing required for definitive results. Current Interpretive Data was last reviewed 2023. Benzodiazepines, ur Not Detected CutOff 100ng/mL [facility] Comment: Interpretive Data - Benzodiazepines: Samples containing greater than 100 ng/mL nordiazepam or other cross-reacting compounds are reported as positive. False positive and false negative results are possible. Confirmatory testing required for definitive results. Current Interpretive Data was last reviewed 2023. Cannabinoids, ur Not Detected CutOff 50 ng/mL [facility] Comment: Interpretive Data - Cannabinoids: Samples containing greater than 50 ng/mL delta-9 THC -COOH or other cross- reacting compounds are reported as positive. False positive and false negative results are possible. Confirmatory testing required for definitive results. Current Interpretive Data was last reviewed 2023. Cocaine, ur Not Detected CutOff 150ng/mL [facility] Comment: Interpretive Data - Cocaine: Samples containing greater than 150 ng/mL benzoylecgonine or other cross- reacting compounds are reported as positive. False positive and false negative results are possible. Confirmatory testing required for definitive results. Current Interpretive Data was last reviewed 2023. Fentanyl, Ur Not Detected CutOff 5 ng/mL [facility] Comment: Interpretive Data - Fentanyl: Samples containing greater than 5 ng/mL norfentanyl, fentanyl, or other cross-reacting fentanyl compounds are reported as positive. False positive and false negative results are possible. Confirmatory testing required for definitive results. Current Interpretive Data was last reviewed 2023. Methadone, ur Not Detected CutOff 300ng/mL [facility] Comment: Interpretive Data - Methadone: Samples containing greater than 300 ng/mL d,l-methadone or other cross-reacting compounds are reported as positive. False positive and false negative results are possible. Confirmatory testing required for definitive results. Current Interpretive Data was last reviewed 2023. Opiates, ur Not Detected CutOff 300ng/mL [facility] Comment: Interpretive Data - Opiates: Samples containing greater than 300 ng/mL morphine or other cross-reacting compounds are reported as positive. False positive and false negative results are possible. Confirmatory testing required for definitive results. Current Interpretive Data was last reviewed 2023. Oxycodone, ur Not Detected CutOff 100ng/mL [facility] Comment: Interpretive Data - Oxycodone: Samples containing greater than 100 ng/mL oxycodone or other cross-reacting compounds are reported as positive. False positive and false negative results are possible. Confirmatory testing required for definitive results. Current Interpretive Data was last reviewed 2023. Phencyclidine, ur Not Detected CutOff 25 ng/mL [facility] Comment: Interpretive Data - Phencyclidine: Samples containing greater than 25 ng/mL phencyclidine or other cross-reacting compounds are reported as positive. False positive and false negative results are possible. Confirmatory testing required for definitive results. Current Interpretive Data was last reviewed 2023. Urine Creatinine 90 mg/dL [facility] Comment: Interpretive Data Urine Creatinine: < 10 mg/dL is extremely dilute = or > 10 but < 20 mg/dL is dilute = or > 20 mg/dL is normal Current Interpretive Data was last revised on 2017. Urine 08/13/2024 12:1 5 AM PROFESSOR OF COMMUNICATION 08/13/2024 12:26 AM PROFESSOR OF COMMUNICATION Narrative [facility] - 08/13/2024 12:54 AM PROFESSOR OF COMMUNICATION Drug of Abuse screening is performed by immunoassay for medical purposes only. This is not to be used for Pain Management purposes. If Detected, confirmation testing will be performed for Amphetamines, Cocaine, Fentanyl, Methadone, Opiates, Oxycodone or Phencyclidine. us Batsheva Portillo MD LAB URINE ORDERABLES Final Result [facility] [address] [place] [address] * (ABNORMAL) Urinalysis reflex to microscopic and culture Urine (08/13/2024 12:15 AM PROFESSOR OF COMMUNICATION) Color, ur Yellow Yellow Clarity, ur Clear Clear [facility] Specific gravity, ur >1.050(H) 1.003 - 1.030 [facility] pH, urine 6.5 [facility] Comment: Interpretive Data U rine pH is affected by diet, medications, systemic acid-base disturbances, and renal tubular function. pH may affect urinary stone formation. For example, urine pH below 6.0 may help reduce the tendency for calcium phosphate stones and pH greater than 6.0 may reduce the tendency for uric acid stone formation. Source: [facility] [employer] [facility] Current Interpretive Data was last revised on 2017 Protein, ur ql Negative Negative [facility] Glucose, ur ql Negative Negative [facility] Ketones, ur Negative Negative [facility] Bilirubin, ur Negative Negative [facility] Blood, ur Negative Negative [facility] Urobilinogen, ur <2.0 <2.0 mg/dL [facility] Nitrite, ur Negative Negative [facility] Leukocyte esterase, ur Negative Negative [facility] UA reflex comment Reflex conditions for microscopic UA and culture not met. [facility] Urine 08/13/2024 12:1 5 AM PROFESSOR OF COMMUNICATION 08/13/2024 12:15 AM PROFESSOR OF COMMUNICATION us Batsheva Portillo MD LAB MICROBIOLOGY - GENERAL ORDERABLES Final Result [facility] [address] [place] [address] * CT Chest PE (CTA) W Contrast (08/12/2024 11:48 PM PROFESSOR OF COMMUNICATION) Anatomical Region Laterality Modality Body N/A Computed Tomogra phy 08/12/2024 11:4 3 PM PROFESSOR OF COMMUNICATION Impressions 08/13/2024 9:24 AM PROFESSOR OF COMMUNICATION No pulmonary embolism. Electronically signed by: Tari Gavin M.D. Narrative 08/13/2024 9:24 AM PROFESSOR OF COMMUNICATION EXAMINATION: CT CHEST PE (CTA) W CONTRAST [...] Lower Extremity Bilateral Complete (08/12/2024 11:46 PM PROFESSOR OF COMMUNICATION) Anatomical Region Laterality Modality Vascular Bilateral Ultrasound 08/13/2024 12:0 9 PM PROFESSOR OF COMMUNICATION Impressions 08/13/2024 12:09 PM PROFESSOR OF COMMUNICATION 1. No evidence of DVT in the lower extremities bilaterally. 2. Pulsatile venous flow bilaterally. This may suggest increased intravascular volume or right-sided valvular heart disease. Clinical correlation suggested. 3. Prominent lymph nodes in both groins. Electronically signed by: Lv Smart M.D. Narrative 08/13/2024 12:09 PM PROFESSOR OF COMMUNICATION Lower Extremity Vein Duplex Bilateral DATE: 08/12/2024 [...] ult * US RUQ (08/12/2024 11:38 PM PROFESSOR OF COMMUNICATION) Anatomical Region Laterality Modality Abdomen N/A Ultrasound 08/12/2024 10:4 5 PM PROFESSOR OF COMMUNICATION Impressions 08/13/2024 11:42 AM PROFESSOR OF COMMUNICATION 1. Trace perihepatic ascites. 2. Pulsatile portal venous flow and dilated inferior vena cava, which may represent elevated right heart pressures and/or tricuspid regurgitation. For the purposes of software quality automation engineer, this study was initially interpreted by teleradiology. There is no significant discrepancy. Electronically signed by: Saeid Baker MD, PHD Narrative 08/13/2024 11:42 AM PROFESSOR OF COMMUNICATION EXAMINATION: LIMITED ABDOMINAL SONOGRAM HISTORY: Elevated liver [...] and/or tricuspid regurgitation. For the purposes of software quality automation engineer, this study was initially interpreted by teleradiology. There is no significant discrepancy. Electronically signed by: Saeid Baker MD, PHD us Batsheva Portillo MD IM US PROCEDURES Final Res ult * D-Dimer - Add on lab test (08/12/2024 10:29 PM PROFESSOR OF COMMUNICATION) Acceptable Yes Blood 08/12/2024 10:2 9 PM PROFESSOR OF COMMUNICATION 08/12/2024 10:29 PM PROFESSOR OF COMMUNICATION Narrative [facility] - 08/12/2024 10:29 PM PROFESSOR OF COMMUNICATION Name of Test->D-Dimer us Batsheva Portillo MD LAB BLOOD ORDERABLES Final Result [facility] [address] Department [place] [address] * CT Head and Cervical Spine WO Contrast (08/12/2024 10:20 PM PROFESSOR OF COMMUNICATION) Anatomical Region Laterality Modality Head and Neck N/A Computed Tomogra phy 08/12/2024 10:1 3 PM PROFESSOR OF COMMUNICATION Impressions 08/13/2024 7:[address] HEAD: No acute intracranial abnormality or calvarial fracture. CT CERVICAL SPINE: 1. No acute osseous abnormality. 2. Multilevel cervical spondylosis; most pronounced at C5-C6 and C6-C7. For the purposes of software quality automation engineer, this study was initially interpreted by teleradiology. There is no significant discrepancy. Electronically signed by: Zaheer Navas M.D. Narrative 08/13/2024 7:02 AM PROFESSOR OF COMMUNICATION EXAMINATION: 1. CT head without contrast 2. [...] C5-C6 and C6-C7. For the purposes of software quality automation engineer, this study was initially interpreted by teleradiology. There is no significant discrepancy. Electronically signed by: Zaheer Navas M.D. us Batsheva Portillo MD IMG CT PROCEDURES Final Res ult * Protime-INR (08/12/2024 10:05 PM PROFESSOR OF COMMUNICATION) PT 12.8 9.7 - 13.0 sec INR 1.18 0.90 - 1.20 [facility] Comment: Interpretive data Oral anticoagulant therapeutic ranges: Venous thromboembolism prophylaxis or treatment: 2.0-3.0 CARDIOLOGY Standard range: 2.0-3.0 High-intensity range: 2.5-3.5 Refer to indication-specific guidelines for appropriate target ranges for prosthetic heart valve replacement. Current interpretive data was last revised on 2019. Blood 08/12/2024 10:0 5 PM PROFESSOR OF COMMUNICATION 08/12/2024 10:29 PM PROFESSOR OF COMMUNICATION Batsheva Portillo MD LAB BLOOD ORDERABLES Final Result [facility] [address] Department of Laboratories [place], [place] [id number] * (ABNORMAL) D-dimer, quantitative (08/12/2024 10:05 PM PROFESSOR OF COMMUNICATION) D-Dimer 1,783(H) <=499 ng/mL FEU Comment: Interpretive [...] on 2019. Blood 08/12/2024 10:0 5 PM PROFESSOR OF COMMUNICATION 08/12/2024 10:05 PM PROFESSOR OF COMMUNICATION us Batsheav Portillo MD LAB BLOOD ORDERABLES Final Result Performing Organization Address [facility] Co de Phone Number [facility] [address] [facility] [place] [address] * Folate - Add on lab test (08/12/2024 9:53 PM PROFESSOR OF COMMUNICATION) Acceptable Yes Blood 08/12/2024 9:53 PM PROFESSOR OF COMMUNICATION 08/12/2024 9:53 PM PROFESSOR OF COMMUNICATION Narrative [facility] - 08/12/2024 9:54 PM PROFESSOR OF COMMUNICATION Name of Test->Folate us Batsheva Portillo MD LAB BLOOD ORDERABLES Final Result Performing Organization Address [facility] Co de Phone Number [facility] [address] [facility] [place] [address] * Vitamin B12 - Add on lab test (08/12/2024 9:53 PM PROFESSOR OF COMMUNICATION) Acceptable Yes Blood 08/12/2024 9:53 PM PROFESSOR OF COMMUNICATION 08/12/2024 9:54 PM PROFESSOR OF COMMUNICATION Narrative [facility] - 08/12/2024 9:54 PM PROFESSOR OF COMMUNICATION Name of Test->Vitamin B12 Batsheva Portillo MD LAB BLOOD ORDERABLES Final Result Performing Organization Address [facility] Co de Phone Number [facility] [address] [facility] [place] [address] * Iron profile - Add on lab test (08/12/2024 9:53 PM PROFESSOR OF COMMUNICATION) Acceptable Yes Blood 08/12/2024 9:53 PM PROFESSOR OF COMMUNICATION 08/12/2024 9:54 PM PROFESSOR OF COMMUNICATION Narrative [facility] - 08/12/2024 9:54 PM PROFESSOR OF COMMUNICATION Name of Test->Iron profile us Batsheva Portillo MD LAB BLOOD ORDERABLES Final Result [facility] [address] [facility] [place] [address] * NT-Pro BNP - Add on lab test (08/12/2024 9:53 PM PROFESSOR OF COMMUNICATION) Acceptable Yes Blood 08/12/2024 9:53 PM PROFESSOR OF COMMUNICATION 08/12/2024 9:53 PM PROFESSOR OF COMMUNICATION Narrative [facility] - 08/12/2024 9:54 PM PROFESSOR OF COMMUNICATION Name of Test->NT-Pro BNP us Batsheva Portillo MD LAB BLOOD ORDERABLES Final Result Performing Organization Address [facility]/ZIP Co de Phone Number [facility] [address] [place] [address] * TSH reflex Free T4 - Add on lab test (08/12/2024 9:53 PM PROFESSOR OF COMMUNICATION) Acceptable Yes Blood 08/12/2024 9:53 PM PROFESSOR OF COMMUNICATION 08/12/2024 9:53 PM PROFESSOR OF COMMUNICATION Narrative [facility] - 08/12/2024 9:54 PM PROFESSOR OF COMMUNICATION Name of Test->TSH reflex Free T4 us Batsheva Portillo MD LAB BLOOD ORDERABLES Final Result Performing Organization Address City/[facility]/ZIP Co de Phone Number [facility] [address] [place] [address] * Phosphorus - Add on lab test (08/12/2024 9:53 PM PROFESSOR OF COMMUNICATION) Acceptable Yes Blood 08/12/2024 9:53 PM PROFESSOR OF COMMUNICATION 08/12/2024 9:53 PM PROFESSOR OF COMMUNICATION Narrative [facility] - 08/12/2024 9:55 PM PROFESSOR OF COMMUNICATION Name of Test->Phosphorus Batsheva Portillo MD LAB BLOOD ORDERABLES Final Result Performing Organization Address [facility]/ZIP Co de Phone Number [facility] [address] [place] [place] [address] * Magnesium - Add on lab test (08/12/2024 9:53 PM PROFESSOR OF COMMUNICATION) Acceptable Yes Blood 08/12/2024 9:53 PM PROFESSOR OF COMMUNICATION 08/12/2024 9:53 PM PROFESSOR OF COMMUNICATION Narrative [facility] - 08/12/2024 9:55 PM PROFESSOR OF COMMUNICATION Name of Test->Magnesium Batsheva Portillo MD LAB BLOOD ORDERABLES Final Result Performing Organization Address [facility] Co de Phone Number [facility] [address] [place] [address] * Troponin T high-sensitivity 2-hour (08/12/2024 9:52 PM PROFESSOR OF COMMUNICATION) Trop T hs 6 <=22 ng/L Comment: Interpretive Data For further hscTnT resources including the diagnostic algorithm and an aid in interpretation, copy and paste this link: https://nrl.testcatalog.org/show/hsTrop Current Interpretive Data last revised 2020. Trop T hs delta -1 ng/L [facility] Trop T hs interp Insignificant [facility] Blood 08/12/2024 9:52 PM PROFESSOR OF COMMUNICATION 08/12/2024 10:30 PM PROFESSOR OF COMMUNICATION Ace Gonzales MD LAB BLOOD ORDERABLES F inal Result Performing Organization Address City/[facility]/ZIP Co de Phone Number [facility] [address] [place] [address] * Ethanol (08/12/2024 9:52 PM PROFESSOR OF COMMUNICATION) Ethanol <10 <=10 mg/dL Comment: Interpretive Data Legal limit of intoxication > or = 80 mg/dL Levels > or = 400 mg/dL are potentially TOXIC. Current interpretive data was last revised on 2018. Blood 08/12/2024 9:52 PM PROFESSOR OF COMMUNICATION 08/12/2024 10:29 PM PROFESSOR OF COMMUNICATION Batsheva Portillo MD LAB BLOOD ORDERABLES Final Result [facility] [address] [place] [address] * Hepatitis panel, acute Blood (08/12/2024 9:13 PM PROFESSOR OF COMMUNICATION) Pathologist [facility] Hep A IgM Nonreactive Nonreactive Comment: Interpretive Data: If Hep A IgM Ab is reported as Equivocal, a new sample should be drawn in two weeks for testing. Current interpretive data was last revised on 19. Hep B core IgM Nonreactive Nonreactive [facility] Comment: Interpretive Data If HepB Core IgM Ab is reported as Equivocal, a new sample should be drawn in two weeks for testing. Current interpretive data was last revised on 19. Hep C Ab Nonreactive Nonreactive [facility] Comment: Interpretive Data Nonreactive: Antibodies to HCV [...] last revised on 2019. HepBsAg Nonreactive Nonreactive [facility] Blood 08/12/2024 9:13 PM PROFESSOR OF COMMUNICATION 08/12/2024 9:17 PM PROFESSOR OF COMMUNICATION Batsheva Portillo MD LAB MICROBIOLOGY - GENERAL ORDERABLES Final Result Performing Organization Address [facility] Co de Phone Number [facility] [address] [facility] [employer] [place], [place] [id number] * Acetaminophen level (08/12/2024 9:13 PM PROFESSOR OF COMMUNICATION) Acetaminophen <5 <=5 mcg/mL Comment: Interpretive Data Significant hepatic injury may occur and treatment with n-acetyl cysteine is generally recommended if the acetaminophen level exceeds: 150 mcg/mL at 4 hours after ingestion 75 mcg/mL at 8 hours after ingestion 38 mcg/mL at 12 hours after ingestion 19 mcg/mL at 16 hours after ingestion Consult toxicology or poison control ([phone]) for unknown ingestion time. Current interpretive data was last revised 2023. Blood 08/12/2024 9:13 PM PROFESSOR OF COMMUNICATION 08/12/2024 9:17 PM PROFESSOR OF COMMUNICATION us Batsheva Portillo MD LAB BLOOD ORDERABLES Final Result Performing Organization Address [facility] Co de Phone Number [facility] [address] [facility] [employer] [place], [place] [id number] * Troponin T high-sensitivity series (baseline, 2hr, 4hr, 6hr) (08/12/2024 8:08 PM PROFESSOR OF COMMUNICATION) Trop T hs 7 <=22 ng/L Comment: Interpretive Data For further hscTnT resources including the diagnostic algorithm and an aid in interpretation, copy and paste this link: https://nrl.testcatalog.org/show/hsTrop Current Interpretive Data last revised 2020. Blood 08/12/2024 8:08 PM PROFESSOR OF COMMUNICATION 08/12/2024 8:23 PM PROFESSOR OF COMMUNICATION us Batsheva Portillo MD LAB BLOOD ORDERABLES Final Result Performing Organization Address [facility] Co de Phone Number [facility] [address] [facility] [employer] [place], [place] [id number] * eGFR (08/12/2024 8:08 PM PROFESSOR OF COMMUNICATION) [facility] eGFR >90 >=60 mL/min/1. 73 m2 Comment: [...] last reviewed 2021. Blood 08/12/2024 8:08 PM PROFESSOR OF COMMUNICATION 08/12/2024 8:23 PM PROFESSOR OF COMMUNICATION us Batsheva Portillo MD LAB BLOOD ORDERABLES Final Result [facility] [address] [place] [address] * Differential, auto (08/12/2024 8:08 PM PROFESSOR OF COMMUNICATION) [facility] Neutrophil abs 3.5 1.5 - 6.5 K/cumm Imm gran abs 0.0 0.0 - 0.1 K/cumm [facility] Lymphocyte abs 2.2 0.8 - 3.3 K/cumm [facility] Monocyte abs 0.5 0.2 - 0.8 K/cumm [facility] Eosinophil abs 0.3 0.0 - 0.5 K/cumm [facility] Basophil abs 0.1 0.0 - 0.1 K/cumm [facility] Neutrophil pct 54.5 % [facility] Comment: Interpretive Data Percent cell count reference ranges are not reported, since discordance with absolute values may lead to misinterpretation of CBC data. Current Interpretive Data was last revised on 2017. Imm gran pct 0.3 % [facility] Comment: Interpretive Data Percent cell count reference ranges are not reported, since discordance with absolute values may lead to misinterpretation of CBC data. Current Interpretive Data was last revised on 2017. Lymphocyte pct 33.3 % [facility] Comment: Interpretive Data Percent cell count reference ranges are not reported, since discordance with absolute values may lead to misinterpretation of CBC data. Current Interpretive Data was last revised on 2017. Monocyte pct 6.9 % [facility] Comment: Interpretive Data Percent cell count reference ranges are not reported, since discordance with absolute values may lead to misinterpretation of CBC data. Current Interpretive Data was last revised on 2017. Eosinophil pct 4.1 % [facility] Comment: Interpretive Data Percent cell count reference ranges are not reported, since discordance with absolute values may lead to misinterpretation of CBC data. Current Interpretive Data was last revised on 2017. Basophil pct 0.9 % [facility] Comment: Interpretive Data Percent cell count reference ranges are not reported, since discordance with absolute values may lead to misinterpretation of CBC data. Current Interpretive Data was last revised on 2017. Blood 08/12/2024 8:08 PM PROFESSOR OF COMMUNICATION 08/12/2024 8:23 PM PROFESSOR OF COMMUNICATION us Batsheva Portillo MD LAB BLOOD ORDERABLES Final Result [facility] [address] [place] [address] * Pro B-type natriuretic peptide (08/12/2024 8:08 PM PROFESSOR OF COMMUNICATION) NT-proBNP 60 <=300 pg/mL Comment: Interpretive Comments: [...] Revised Date: 2018. Blood 08/12/2024 8:08 PM PROFESSOR OF COMMUNICATION 08/12/2024 8:23 PM PROFESSOR OF COMMUNICATION us Batsheva Portillo MD LAB BLOOD ORDERABLES Final Result Performing Organization Address [facility] Co de Phone Number [facility] [address] [employer] [place], [place] [id number] * Thyroid Function [place] (08/12/2024 8:08 PM PROFESSOR OF COMMUNICATION) TSH 1.43 0.30 - 4.20 mcIUnit/mL Blood 08/12/2024 8:0 8 PM PROFESSOR OF COMMUNICATION 08/12/2024 8:23 PM PROFESSOR OF COMMUNICATION us Batsheva Portillo MD LAB BLOOD ORDERABLES Final Result Performing Organization Address [facility] Co de Phone Number [facility] [address] [place] [address] * (ABNORMAL) Iron profile w/ IBC (08/12/2024 8:08 PM PROFESSOR OF COMMUNICATION) Pathologist [facility] Iron 46(L) 50 - 150 mcg/dL TIBC 296 250 - 400 mcg/dL [facility] Transferrin saturation 16(L) 20 - 50 % [facility] Blood 08/12/2024 8:08 PM PROFESSOR OF COMMUNICATION 08/12/2024 8:23 PM PROFESSOR OF COMMUNICATION us Batsheva Portillo MD LAB BLOOD ORDERABLES Final Result [facility] [address] [place] [address] * (ABNORMAL) CBC with auto differential (08/12/2024 8:08 PM PROFESSOR OF COMMUNICATION) [facility] WBC 6.5 3.8 - 9.9 K/cumm Hgb 12.5(L) 13.0 - 17.5 g/dL [facility] Hct 38.3(L) 38.9 - 50.3 % [facility] Plt 207 150 - 400 K/cumm [facility] MPV 10.1 9.1 - 12.3 fL [facility] RBC 4.22(L) 4.30 - 5.80 M/cumm [facility] MCV 90.8 81.3 - 96.4 fL [facility] MCH 29.6 27.1 - 33.3 pg [facility] MCHC 32.6 32.3 - 35.7 g/dL [facility] RDW CV 13.0 11.1 - 14.9 % [facility] RDW SD 43.2 35.7 - 48.1 fL [facility] NRBC abs 0.00 0.00 - 0.01 K/cumm [facility] Blood (Blood, Venous) 08/12/2024 8:08 PM PROFESSOR OF COMMUNICATION 08/12/2024 8:23 PM PROFESSOR OF COMMUNICATION us Batsheva Portillo MD LAB BLOOD ORDERABLES Final Result [facility] [address] [facility] [place] [address] * Phosphorus (08/12/2024 8:08 PM PROFESSOR OF COMMUNICATION) Pathologist [facility] Chronically Ill Phosphorus, pl 3.1 2.3 - 4.5 mg/dL Blood 08/12/2024 8:08 PM PROFESSOR OF COMMUNICATION 08/12/2024 8:23 PM PROFESSOR OF COMMUNICATION us Batsheva Portillo MD LAB BLOOD ORDERABLES Final Result Performing Organization Address [facility] Co de Phone Number JADA [facility] [address] [facility] [place] [address] * Magnesium (08/12/2024 8:08 PM PROFESSOR OF COMMUNICATION) [facility] Magnesium 2.0 1.4 - 2.5 mg/dL Blood 08/12/2024 8:08 PM PROFESSOR OF COMMUNICATION 08/12/2024 8:23 PM PROFESSOR OF COMMUNICATION us Batsheva Portillo MD LAB BLOOD ORDERABLES Final Result Performing Organization Address [facility] Co de Phone Number JADA [facility] [address] [place] [address] * Folate (08/12/2024 8:08 PM PROFESSOR OF COMMUNICATION) [facility] Folic acid 7.6 >=5.0 ng/mL Blood 08/12/2024 8:08 PM PROFESSOR OF COMMUNICATION 08/12/2024 8:23 PM PROFESSOR OF COMMUNICATION us Batsheva Portillo MD LAB BLOOD ORDERABLES Final Result Performing Organization Address [facility] Co de Phone Number JADA [facility] [address] [facility] [place] [address] * Vitamin B12 (08/12/2024 8:08 PM PROFESSOR OF COMMUNICATION) [facility] Vitamin B12 860 230 - 1,250 pg/mL Blood 08/12/2024 8:08 PM PROFESSOR OF COMMUNICATION 08/12/2024 8:23 PM PROFESSOR OF COMMUNICATION us Batsheva Portillo MD LAB BLOOD ORDERABLES Final Result [facility] [address] [place] [address] * (ABNORMAL) Comprehensive metabolic panel (08/12/2024 8:08 PM PROFESSOR OF COMMUNICATION) Sodium 142 135 - 145 mmol/L Potassium, pl 4.4 3.3 - 4.9 mmol/L [facility] Chloride 106 97 - 110 mmol/L [facility] CO2 27 22 - 32 mmol/L [facility] Anion gap 9 2 - 15 mmol/L [facility] BUN 29(H) 6 - 25 mg/dL [facility] Creatinine 1.02 0.80 - 1.30 mg/dL [facility] Glucose 104 70 - 199 mg/dL [facility] Comment: Interpretive Data Fasting glucose >/= 126 [...] 2022. Calcium 8.6 8.5 - 10.3 mg/dL [facility] Bilirubin, total 0.3 0.1 - 1.2 mg/dL [facility] Protein, pl 6.1(L) 6.5 - 8.5 g/dL [facility] Albumin 3.7 3.5 - 5.0 g/dL [facility] Alk phos 83 40 - 130 Units/L [facility] ALT 230(H) 7 - 55 Units/L [facility] AST 158(H) 10 - 50 Units/L [facility] Blood 08/12/2024 8:08 PM PROFESSOR OF COMMUNICATION 08/12/2024 8:23 PM PROFESSOR OF COMMUNICATION us Batsheva Portillo MD LAB BLOOD ORDERABLES Final Result [facility] [address] [place] [address] * XR Chest PA Lateral 2 Views (08/12/2024 7:27 PM PROFESSOR OF COMMUNICATION) Anatomical Region Laterality Modality Body, Chest N/A Computed Radiogr aphy 08/13/2024 7:44 AM PROFESSOR OF COMMUNICATION Impressions 08/13/2024 7:44 AM PROFESSOR OF COMMUNICATION There is subtle airspace opacity in the right lung base which may represent pneumonia in the appropriate clinical setting. Alternatively, this may represent atelectasis. No pleural effusion. No pneumothorax. Heart size is normal. Electronically signed by: Tari Gavin M.D. Narrative 08/13/2024 7:44 AM PROFESSOR OF COMMUNICATION EXAMINATION: XR CHEST PA LATERAL 2 VIEWS [...] * ECG 12 lead (08/12/2024 6:48 PM PROFESSOR OF COMMUNICATION) 08/12/2024 6:48 PM PROFESSOR OF COMMUNICATION Narrative [facility] - 08/13/2024 1:41 PM PROFESSOR OF COMMUNICATION Vent Rate: 63 bpm RR Interval: 938 msec CA Interval: 165 msec QRS Duration: 96 msec QT Interval: 378 msec QTC Interval: 386 msec P-R-T [place]: 74 - 81 - 50 degrees IMPRESSION: SINUS RHYTHM POSSIBLE LEFT ATRIAL ENLARGEMENT [-0.1mV P WAVE IN V1/V2] BORDERLINE ECG Electronically Signed By: Jerel Ramirez MD PhD us Batsheva Portillo MD ECG ORDERABLES Final Resul t [facility] * XR Chest Pa Lateral 2 Views (08/11/2024 2:02 AM PROFESSOR OF COMMUNICATION) Anatomical Region Laterality Modality Body, Chest N/A Computed Radiogr aphy 08/11/2024 3:00 AM PROFESSOR OF COMMUNICATION Impressions 08/11/2024 9:05 AM PROFESSOR OF COMMUNICATION Comparison radiograph from 08/08/2024. No consolidation, pleural effusion, or pneumothorax. Cardiomediastinal silhouette within normal limits. Dictated by: Julio Rooney M.D. The radiology attending physician has personally reviewed this study, and had reviewed and/or edited this written report and agrees with it. Electronically signed by: Brice Mantilla M.D. Narrative 08/11/2024 9:05 AM PROFESSOR OF COMMUNICATION EXAMINATION: 2 view chest radiograph Procedure Note [...] sult * ECG 12-LEAD (08/11/2024 1:43 AM PROFESSOR OF COMMUNICATION) Narrative [facility] - 08/11/2024 1:43 AM PROFESSOR OF COMMUNICATION Johnnie Kelly MD 08/11/2024 1:44 AM ECG [...] ECG ORDERABLES Final Resu lt [facility] * XR Chest PA Lateral 2 Views (08/08/2024 10:42 PM PROFESSOR OF COMMUNICATION) Anatomical Region Laterality Modality Body, Chest N/A Computed Radiogr aphy 08/08/2024 11:0 3 PM PROFESSOR OF COMMUNICATION Impressions 08/09/2024 10:05 AM PROFESSOR OF COMMUNICATION The current study is compared with the prior radiograph dated 09/13/2019. Mild bibasilar atelectasis. No consolidation, pleural effusion, or pneumothorax. Cardiomediastinal silhouette within normal limits. Dictated by: Chet Boogie MD The radiology attending physician has personally reviewed this study, and had reviewed and/or edited this written report and agrees with it. Electronically signed by: Steve Arce M.D. Narrative 08/09/2024 10:05 AM PROFESSOR OF COMMUNICATION EXAMINATION: 2 view chest radiograph Procedure Note [...] CT Head WO Contrast (08/08/2024 10:34 PM PROFESSOR OF COMMUNICATION) Anatomical Region Laterality Modality Head and Neck N/A Computed Tomogra phy 08/08/2024 10:4 4 PM PROFESSOR OF COMMUNICATION Impressions 08/09/2024 10:54 AM PROFESSOR OF COMMUNICATION 1. No acute intracranial process. 2. Large burden of cerumen in both external auditory canals which may be impacted. Dictated by: Juancho Marquez MD, Ph.D The radiology attending physician has personally reviewed this study, and had reviewed and/or edited this written report and agrees with it. Electronically signed by: Indio Zambrano M.D. Narrative 08/09/2024 10:54 AM PROFESSOR OF COMMUNICATION EXAMINATION: CT head without contrast HISTORY: 43-year-old [...] effect or midline shift is present. The eflix-white matter differentiation is normal. The visualized portions of the orbits are normal. The visualized portions of the mastoids are normal. Mild ethmoid air cell opacification. No fractures are identified. Debris within both external auditory canals. IMPRESSION: 1. No acute intracranial process. 2. Large burden of cerumen in both external auditory canals which may be impacted. Dictated by: Juancho Maqruez MD, Ph.D The radiology attending physician has personally reviewed this study, and had reviewed and/or edited this written report and agrees with it. Electronically signed by: Indio Zambrano M.D. us Karlo Gatica MD IMG CT PROCEDURES Final Res ult * ECG 12-LEAD (08/08/2024 8:56 PM PROFESSOR OF COMMUNICATION) Narrative [facility] - 08/08/2024 8:56 PM PROFESSOR OF COMMUNICATION Salena Cobb MD 08/08/2024 8:57 PM ECG [...] Gatica MD ECG ORDERABLES Final Resul t [facility] * (ABNORMAL) Respiratory pathogen panel Nasopharyngeal (08/06/2024 9:59 AM PROFESSOR OF COMMUNICATION) Pathologist [facility] Influenza A RNA Not Detected Not Detected Influenza B RNA Not Detected Not Detected [facility] RSV RNA Not Detected Not Detected [facility] COVID-19 RNA Not Detected Not Detected [facility] Coronavirus 229E RNA Not Detected Not Detected [facility] Coronavirus HKU1 RNA Not Detected Not Detected [facility] Coronavirus NL63 RNA Detected(A) Not Detected [facility] Coronavirus OC43 RNA Not Detected Not Detected [facility] Adenovirus DNA Not Detected Not Detected [facility] Metapneumovirus RNA Not Detected Not Detected [facility] Rhinovirus/Enterov irus RNA Not Detected Not Detected [facility] Parainfluenza 1 RNA Not Detected Not Detected [facility] Parainfluenza 2 RNA Not Detected Not Detected [facility] Parainfluenza 3 RNA Not Detected Not Detected [facility] Parainfluenza 4 RNA Not Detected Not Detected [facility] B. pertussis DNA Not Detected Not Detected [facility] B. parapertussis DNA Not Detected Not Detected [facility] C. pneumoniae DNA Not Detected Not Detected [facility] M. pneumoniae DNA Not Detected Not Detected [facility] Nasopharyngeal 08/06/2024 9: 59 AM PROFESSOR OF COMMUNICATION 08/06/2024 10:52 AM PROFESSOR OF COMMUNICATION Bernadette [facility] - 08/06/2024 11:43 AM PROFESSOR OF COMMUNICATION Is the Patient experiencing symptoms consistent with COVID?->Yes Surveillance testing for transplant patient?->No Interpretive Data The [employer] FilmArray Respiratory Panel (RP2.1) assay is a [...] assay has FDA clearance for testing of DESIGN TEACHER swabs. The performance of additional specimen types has been assessed by the performing laboratory. The performance characteristics of this assay have been determined by [facility]. Current interpretive data was last revised on 22. [facility] [place] Final Result [facility] [place] [address] from Last 3 Months Insurance [employer] [address] [id number] [place] [address] [facility] [address] [address] [place] [address] [employer] Advance Directives For more information, please contact: [phone] * Full Code (Latest Code Status on File) Date Activated Date Inactivated Comments 08/13/2024 3:12 AM 08/14/2024 6:01 PM * Full Code Date Activated Date Inactivated Comments 10/28/2022 5:15 PM 10/29/2022 2:07 PM * Full Code Date Activated Date Inactivated Comments 08/09/2019 5:28 PM 08/10/2019 5:09 PM * Full Code Date Activated Date Inactivated Comments 07/29/2019 4:26 PM 08/04/2019 10:36 PM Care Teams Weed Eradicator Relationship Specialty [place] [address] [place] [address] PCP - General Family Medicine 05/18/24 [place] [address] [address] [address] Referring Physician General Surgery 08/04/19 [place] [address] [address] Consulting Physician Gastroenterology 08/04/19
--- OUTSIDE RECORDS SUMMARY | 2024-09-17 17:58 | XMS_ITS ---
Author Organization [facility] [place] Address [address] [place] [address] Care Team Providers Care Certified Physician Assistant Name Role Phone Unavailable Unavailable Unavailable Surgery Details Not on file Complications Check Surgery Details section. Procedure Estimated Blood Loss Check Surgery Details section. Procedure Findings Check Surgery Details section. Procedure Specimens Taken Check Surgery Details section.
--- OUTSIDE RECORDS SUMMARY | 2024-09-17 17:58 | XMS_ITS | Referral Summary ---
Author Organization [address] Address [address] [place] [phone] Care Team Providers Care Buckle Stapler Name Role Phone Elias Andrews MD Unavailable [phone] Jonah Otto MD Unavailable Jerel Camejo MD Primary Care Provider [phone] Encounters Date Type Department Care Team Description 09/17/2024 11:38 AM MATERIAL LOADER - 09/17/2024 1:19 PM [facility] Emergency [facility] Emergency Department [address] [place] [phone] Chronic venous insufficiency (Primary Dx); Bilateral lower extremity edema Discharge Disposition: Discharge to home or self care 09/14/[address] [facility] at [address] [phone] Lexi Garcia, DEVANG Med Refill 09/14/2024 12:10 AM MATERIAL LOADER - 09/14/2024 1:49 AM [facility] Emergency [facility] Emergency Department [address] [place] [address] Brice Sepulveda MD Bilateral lower extremity edema (Primary Dx) Discharge Disposition: Discharge to home or self care 09/13/2024 9:20 PM MATERIAL LOADER - 09/13/2024 9:46 PM [facility] Emergency [facility] Emergency Department [address] [place] [phone] Michael Schrader MD Weakness (Primary Dx) Discharge Disposition: Discharge to home or self care 09/13/2024 2:46 AM MATERIAL LOADER - 09/13/2024 5:31 AM [facility] Emergency [facility] Emergency Department [address] [place] [phone] Katharine Polanco MD Chronic venous insufficiency (Primary Dx); Lower extremity edema Discharge Disposition: Discharge to home or self care 09/12/2024 9:22 PM MATERIAL LOADER - 09/12/2024 10:59 PM [facility] Emergency Department [address] [place] [address] Leg swelling (Primary Dx); Venous insufficiency; Venous stasis dermatitis Discharge Disposition: Discharge to home or self care 09/11/2024 10:35 PM MATERIAL LOADER - 09/12/2024 3:44 AM [facility] Emergency Department [address] [place] [phone] Salena Crawley MD Lower extremity edema (Primary Dx); Cellulitis of left lower extremity Discharge Disposition: Discharge to home or self care 09/11/2024 7:00 PM MATERIAL LOADER Office Visit [facility] at [address] [phone] Truman Gabriel, Symptom of leg swelling (Primary Dx) 09/10/2024 5:00 PM MATERIAL LOADER Office Visit [facility] Medical [facility] at [address] [phone] Jess Hobson NP Cellulitis of left lower extremity (Primary Dx); Left leg swelling 09/07/2024 10:55 AM MATERIAL LOADER - 09/07/2024 10:[address] [facility] Emergency Department [address] [place] [address] Venous stasis dermatitis of both lower extremities (Primary Dx) Discharge Disposition: Discharge to home or self care 09/05/2024 8:08 PM MATERIAL LOADER - 09/05/2024 10:[address] [facility] Emergency Department [address] [place] [phone] Other chronic pain (Primary Dx); Bilateral lower extremity edema Discharge Disposition: Discharge to home or self care 09/05/2024 2:02 AM MATERIAL LOADER - 09/05/2024 3:14 AM [facility] Emergency Department [address] [place] [address] Marek Nelson MD PhD Chronic pain of left lower extremity (Primary Dx) Discharge Disposition: Discharge to home or self care 09/03/2024 7:07 PM MATERIAL LOADER - 09/03/2024 11:06 PM [facility] Emergency [facility] Emergency Department [address] [place] [address] Cellulitis of left lower extremity (Primary Dx) Discharge Disposition: Discharge to home or self care 09/02/2024 8:24 AM [facility] - 09/02/2024 11:59 PM [facility] [address] [place] [phone] Discharge Disposition: Discharge to home or self care 09/02/2024 3:25 AM MATERIAL LOADER - 09/02/2024 3:[address] [facility] Emergency Department [address] [place] [address] Rachele Guerra MD Sprain of right ankle, unspecified ligament, initial encounter (Primary Dx) Discharge Disposition: Discharge to home or self care 09/01/2024 8:06 AM MATERIAL LOADER - 09/01/2024 9:[address] [facility] Emergency Department [address] [place] [address] Jair Armendariz MD Sprain of right ankle, unspecified ligament, initial encounter (Primary Dx) Discharge Disposition: Discharge to home or self care 08/23/2024 9:27 PM MATERIAL LOADER - 08/23/2024 10:[address] [facility] Emergency Department [address] [place] [phone] Leg swelling (Primary Dx); Cellulitis of left lower extremity Discharge Disposition: Discharge to home or self care 08/23/2024 1:41 AM MATERIAL LOADER - 08/23/2024 9:16 AM [facility] Emergency [facility] Emergency Department [address] [place] [phone] Salena Crawley MD Li, Alex, MD Schneider, John Elliott, MD Leg swelling (Primary Dx); Cellulitis of left lower extremity; Failure of outpatient treatment Discharge Disposition: Discharge to home or self care 08/20/2024 11:11 PM MATERIAL LOADER - 08/21/2024 1:30 AM [facility] Emergency [facility] Emergency Department [address] [place] [address] Dependent edema (Primary Dx) Discharge Disposition: Discharge to home or self care 08/20/2024 9:06 AM [facility] - 08/20/2024 11:08 AM [facility] Emergency Department [address] [place] [phone] Fei Murray MD Upper respiratory tract infection, unspecified type (Primary Dx); Peripheral edema Discharge Disposition: Discharge to home or self care 08/20/2024 2:24 AM [facility] - 08/20/2024 4:35 AM [facility] Emergency Department [address] [place] [phone] Discharge Disposition: Left without being seen 08/18/2024 5:58 AM [facility] - 08/18/2024 7:26 AM [facility] Emergency [facility] Emergency Department [address] [place] [phone] Lorenzo Peña MD Peripheral edema (Primary Dx) Discharge Disposition: Discharge to home or self care 08/17/2024 3:00 PM [facility] Diagnostic [facility] Orthopaedic Surgery [facility] Advanced Medicine 6th [place] [address] [place] [phone] Luciano Nelson MD Encounter for examination of normal volunteer in research study 08/15/2024 12:23 AM [facility] - 08/15/2024 1:52 AM [facility] Emergency [facility] Emergency Department [address] [place] [address] [place] (Primary Dx); Swelling Discharge Disposition: Discharge to home or self care 08/12/2024 8:23 PM MATERIAL LOADER - 08/14/2024 1:56 PM [facility] Hospital Encounter [facility] [address] [place] [phone] Batsheva Portillo MD Li, MD Lucille Garcia Alex, MD COVID-19 (Primary Dx); Recurrent syncope; Chest pain, unspecified type; Anemia, unspecified type; Elevated AST (SGOT); Elevated ALT measurement; Nonintractable headache, unspecified chronicity pattern, unspecified headache type Discharge Disposition: Discharge to home or self care 08/11/2024 3:49 AM MATERIAL LOADER - 08/11/2024 4:35 AM [facility] Emergency [facility] Emergency Department [address] [place] [phone] Abdiel Hawkins MD Coronavirus infection (Primary Dx); Lightheadedness Discharge Disposition: Discharge to home or self care 08/08/2024 9:58 PM MATERIAL LOADER - 08/08/2024 11:12 PM [facility] Emergency [facility] Emergency Department [address] [place] [phone] Karlo Gatica MD COVID (Primary Dx); Dehydration; Syncope, unspecified syncope type Discharge Disposition: Discharge to home or self care 08/07/2024 [facility] Eligibility Review [facility] Community Health Worker [address] [place] [address] Darlene Zurita MT 08/06/2024 9:50 AM MATERIAL LOADER - 08/06/2024 12:23 PM [facility] Emergency [facility] Emergency Department [address] [place] [phone] Jassi Daniels MD Coronavirus infection (Primary Dx) Discharge Disposition: Discharge to home or self care 08/02/2024 12:46 PM MATERIAL LOADER - 08/02/2024 1:16 PM [facility] Emergency [facility] Emergency Department [address] [place] [address] Gee Moran MD Chronic right shoulder pain (Primary Dx) Discharge Disposition: Discharge to home or self care 08/01/2024 2:00 AM MATERIAL LOADER - 08/01/2024 3:17 AM [facility] Emergency [facility] Emergency Department [address] [place] [address] Chronic right shoulder pain (Primary Dx); Encounter for medication refill Discharge Disposition: Discharge to home or self care 07/29/2024 9:38 PM MATERIAL LOADER - 07/29/2024 11:38 PM [facility] Emergency [facility] Emergency Department [address] [place] [phone] Cindy Hendricks MD Injury of right rotator cuff, subsequent encounter (Primary Dx) Discharge Disposition: Discharge to home or self care 07/24/2024 Documentation [facility] [address] [place] [address] Health [address] [place] [address] Cherie Ramirez [facility] Social Work Services 07/24/2024 1:00 PM [facility] Office Visit [facility] [address] [place] [address] 4th Floor [address] [place] [phone] Right anterior shoulder pain (Primary Dx) 07/19/2024 Documentation [facility] [address] [place] [address] [address] [place] [address] Cherie Ramirez, [facility] Social Work Services 06/26/2024 Orders Only [facility] Orthopaedic Surgery [address] [facility] Advanced [facility] 6th [place] [address] [place] [address] Michael Corona MD Encounter for examination of [...] Qualify for In Clinic PT? 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 Also noted epigastric discomfort w/ associated nausea. - recent cholecystectomy 07/302 to chronic biliary colic w/o evidence of [...] discharge. Assessment & Plan (08/09/2019 7:07 PM MATERIAL LOADER): Patient presents with complaints of ongoing abdominal [...] 07/29/2019 Assessment & Plan (08/10/2019 10:48 AM MATERIAL LOADER): Ongoing nausea post cholecystectomy w/o vomiting. Tolerating PO, no emesis overnight - prn zofran - ADAT Assessment & Plan (08/09/2019 7:17 PM MATERIAL LOADER): Ongoing nausea post cholecystectomy w/o vomiting. - prn zofran - ADAT Calculus of gallbladder 07/29/2019 Dizziness 07/29/2019 Assessment & Plan (08/10/2019 10:59 AM MATERIAL LOADER): Patient describes dizziness related to uncontrolled abdominal pain. He endorses pain starts in RQ and moves to head . He then becomes diaphoretic, nauseous. Improved this AM. Likely vasovagal, hemodynamically stable. - discussed proper hydration and symptom management Assessment & Plan (08/09/2019 7:16 PM MATERIAL LOADER): Patient describes dizziness related to uncontrolled abdominal pain. He endorses pain starts in RQ and moves to head . He then becomes diaphoretic, nauseous. - likely vasovagal, s/p 1 L LR in ED. CTM Intractable right upper quadrant abdominal pain 07/29/2019 Overview (08/01/2019): Added automatically from request for surgery [id number] Adjustment disorder with depressed mood in remis [...] drink = 0.6 oz pur e alcohol) [facility] Utilities Answer Date Recorded In the past 12 months has e electric, gas, oil, or water company [...] declined 08/14/2024 How often do you attend yarsani or rastafarian serv ices? Patient declined 08/14/2024 Do you belong to any clubs o r organizations such as yarsani groups, unions, fraternal or athletic groups, or [...] any time in the past 12 m [facility], were you homeless or living in a usp (including now)? Patient declined 08/14/2024 Personal Safety Answer Date Recorded Have you ever been in or are you currently in a harmful physical or emotional relationship or is someone making you feel afraid or unsafe? Denies 09/17/2024 Sex and Gender Information Value Date Recorded Sex Assigned at Not on file Legal Sex Male 9:25 PM MATERIAL LOADER Gender Identity Not on file Sexual Orientation Straight 11/18/2022 7: 07 PM CDT Last Filed Vital Signs Vital Sign Reading Time Taken Comments Blood Pressure 109/73 09/17/2024 12:37 PM MATERIAL LOADER Pulse 69 09/17/2024 12:37 PM MATERIAL LOADER Temperature 36.5 C (97.7 F) 09/17/2024 10:26 AM MATERIAL LOADER Respiratory Rate 16 09/17/2024 12:37 PM MATERIAL LOADER Oxygen Saturation 98% 09/17/2024 12:37 PM MATERIAL LOADER Inhaled Oxygen Concentration - - Weight 74.8 kg (165 lb) 09/17/2024 10:26 AM MATERIAL LOADER Height 172.7 cm (5' 8 ) 09/17/2024 10:26 AM MATERIAL LOADER Body Mass Index 25.09 09/17/2024 10:26 AM MATERIAL LOADER Plan of Treatment Not on file Procedures Procedure Name Priority Date/Time Associated Diagnosis Comments EGFR STAT 09/11/2024 9:10 PM MATERIAL LOADER DIFFERENTIAL AUTO STAT 09/11/2024 9:1 0 PM MATERIAL LOADER PRO B-TYPE NATRIURETIC PEPTIDE STAT 09/11/2024 9:10 PM MATERIAL LOADER COMPREHENSIVE METABOLIC PANEL STAT 09/11/2024 9:10 PM MATERIAL LOADER CBC WITH AUTO DIFFERENTIAL STAT 09/11/2024 9:10 PM MATERIAL LOADER EGFR STAT 09/07/2024 2:59 AM MATERIAL LOADER DIFFERENTIAL AUTO STAT 09/07/2024 2:5 9 AM MATERIAL LOADER BASIC METABOLIC PANEL STAT 09/07/2024 2:59 AM MATERIAL LOADER CBC WITH AUTO DIFFERENTIAL STAT 09/07/2024 2:59 AM MATERIAL LOADER US VEIN DUPLEX LOWER EXTREMITY BILATERAL COMPLETE ED 09/03/2024 7:37 PM MATERIAL LOADER MRI SHOULDER RIGHT WO CONTRAST Schedule Routine, Read Routine (OP Routine) 09/02/2024 9:06 AM MATERIAL LOADER Right anterior shoulder pain XR ANKLE RIGHT 2 VIEWS ED 09/01/2024 9:33 PM MATERIAL LOADER XR TIBIA FIBULA RIGHT2 VIEWS ED 09/01/2024 8:37 AM MATERIAL LOADER XR ANKLE RIGHT 3 OR MORE VIEWS ED 08/31/2024 10:35 PM MATERIAL LOADER XR FOOT RIGHT 3 OR MORE VIEWS ED 08/31/2024 10:34 PM MATERIAL LOADER EGFR STAT 08/23/2024 2:33 AM MATERIAL LOADER DIFFERENTIAL AUTO STAT 08/23/2024 2:3 3 AM MATERIAL LOADER PRO B-TYPE NATRIURETIC PEPTIDE STAT 08/23/2024 2:33 AM MATERIAL LOADER COMPREHENSIVE METABOLIC PANEL STAT 08/23/2024 2:33 AM MATERIAL LOADER CBC WITH AUTO DIFFERENTIAL STAT 08/23/2024 2:33 AM MATERIAL LOADER SEPSIS LACTATE WITH REFLEX Routine 08/23/2024 2:33 AM MATERIAL LOADER BLOOD CULTURE Routine 08/23/2024 2:33 AM MATERIAL LOADER BLOOD CULTURE Routine 08/23/2024 2:33 AM MATERIAL LOADER ECG 12-LEAD STAT 08/23/2024 2:32 AM MATERIAL LOADER EGFR STAT 08/21/2024 12:35 AM MATERIAL LOADER DIFFERENTIAL AUTO STAT 08/21/2024 12: 35 AM MATERIAL LOADER CRP (ACUTE PHASE) STAT 08/21/2024 12: 35 AM MATERIAL LOADER ERYTHROCYTE SEDIMENTATION RATE STAT 08/21/2024 12:35 AM MATERIAL LOADER BASIC METABOLIC PANEL STAT 08/21/2024 12:35 AM MATERIAL LOADER CBC WITH AUTO DIFFERENTIAL STAT 08/21/2024 12:35 AM MATERIAL LOADER STREPTOCOCCUS GROUP A PCR STAT 08/20/2024 9:19 AM MATERIAL LOADER RESPIRATORY PATHOGEN PANEL Routine 08/20/2024 9:19 AM MATERIAL LOADER D-DIMER, QUANTITATIVE STAT 08/15/2024 1:08 AM MATERIAL LOADER PRO B-TYPE NATRIURETIC PEPTIDE STAT 08/14/2024 9:59 PM MATERIAL LOADER EGFR STAT 08/14/2024 9:59 PM MATERIAL LOADER DIFFERENTIAL AUTO STAT 08/14/2024 9:5 9 PM MATERIAL LOADER LIPASE STAT 08/14/2024 9:59 PM MATERIAL LOADER COMPREHENSIVE METABOLIC PANEL STAT 08/14/2024 9:59 PM MATERIAL LOADER CBC WITH AUTO DIFFERENTIAL STAT 08/14/2024 9:59 PM MATERIAL LOADER TRANSTHORACIC ECHO (TTE) COMPLETE W DOPPLER/CF WO CONTRAST Routine 08/14/2024 11:39 AM MATERIAL LOADER HEPATIC FUNCTION PANEL Routine 08/13/2024 5:30 AM MATERIAL LOADER EGFR Routine 08/13/2024 5:30 AM MATERIAL LOADER CBC WITHOUT DIFFERENTIAL Routine 08/13/2024 5:30 AM MATERIAL LOADER PHOSPHORUS Routine 08/13/2024 5:30 AM MATERIAL LOADER MAGNESIUM Routine 08/13/2024 5:30 AM MATERIAL LOADER BASIC METABOLIC PANEL Routine 08/13/2024 5:30 AM MATERIAL LOADER FERRITIN Routine 08/13/2024 5:30 AM MATERIAL LOADER DRUGS OF ABUSE SCREEN, URINE WITH REFLEX CONFIRMATION Routine 08/13/2024 12:15 AM MATERIAL LOADER URINALYSIS AND REFLEX TO MICROSCOPIC AND CULTURE STAT 08/13/2024 12:[address] CHEST PE W CONTRAST ED 08/12/2024 11:48 PM MATERIAL LOADER US VEIN DUPLEX LOWER EXTREMITY BILATERAL COMPLETE ED 08/12/2024 11:46 PM MATERIAL LOADER US RUQ ED 08/12/2024 11:38 PM MATERIAL LOADER ADD ON LAB TEST Add-On 08/12/2024 10:[address] HEAD AND CERVICAL SPINE WO CONTRAST ED 08/12/2024 10:20 PM MATERIAL LOADER D-DIMER, QUANTITATIVE STAT 08/12/2024 10:05 PM MATERIAL LOADER PROTIME-INR STAT 08/12/2024 10:05 PM MATERIAL LOADER ADD ON LAB TEST Add-On 08/12/2024 9:53 PM MATERIAL LOADER ADD ON LAB TEST Add-On 08/12/2024 9:53 PM MATERIAL LOADER ADD ON LAB TEST Add-On 08/12/2024 9:53 PM MATERIAL LOADER ADD ON LAB TEST Add-On 08/12/2024 9:53 PM MATERIAL LOADER ADD ON LAB TEST Add-On 08/12/2024 9:53 PM MATERIAL LOADER ADD ON LAB TEST Add-On 08/12/2024 9:53 PM MATERIAL LOADER ADD ON LAB TEST Add-On 08/12/2024 9:53 PM MATERIAL LOADER ETHANOL STAT 08/12/2024 9:52 PM MATERIAL LOADER TROPONIN T HIGH-SENSITIVITY 2-HOUR Timed 08/12/2024 9:52 PM MATERIAL LOADER ACETAMINOPHEN LEVEL STAT 08/12/2024 9 :13 PM MATERIAL LOADER HEPATITIS PANEL, ACUTE STAT 08/12/2024 9:13 PM MATERIAL LOADER PRO B-TYPE NATRIURETIC PEPTIDE STAT 08/12/2024 8:08 PM MATERIAL LOADER THYROID FUNCTION CASCADE STAT 08/12/2024 8:08 PM MATERIAL LOADER FOLATE STAT 08/12/2024 8:08 PM MATERIAL LOADER IRON PROFILE W/ IBC STAT 08/12/2024 8 :08 PM MATERIAL LOADER VITAMIN B12 STAT 08/12/2024 8:08 PM MATERIAL LOADER MAGNESIUM STAT 08/12/2024 8:08 PM MATERIAL LOADER PHOSPHORUS STAT 08/12/2024 8:08 PM MATERIAL LOADER EGFR STAT 08/12/2024 8:08 PM MATERIAL LOADER DIFFERENTIAL AUTO STAT 08/12/2024 8:0 8 PM MATERIAL LOADER TROPONIN T HIGH-SENSITIVITY SERIES (BASELINE, 2HR, 4HR, 6HR) STAT 08/12/2024 8:08 PM MATERIAL LOADER COMPREHENSIVE METABOLIC PANEL STAT 08/12/2024 8:08 PM MATERIAL LOADER CBC WITH AUTO DIFFERENTIAL STAT 08/12/2024 8:08 PM MATERIAL LOADER XR CHEST PA LATERAL 2 VIEWS ED 08/12/2024 7:27 PM MATERIAL LOADER ECG 12-LEAD STAT 08/12/2024 6:48 PM MATERIAL LOADER XR CHEST PA LATERAL 2 VIEWS ED 08/11/2024 2:02 AM MATERIAL LOADER ECG 12-LEAD STAT 08/11/2024 1:43 AM MATERIAL LOADER XR CHEST PA LATERAL 2 VIEWS ED 08/08/2024 10:[address] HEAD WO CONTRAST ED 08/08/2024 1 0:34 PM MATERIAL LOADER ECG 12-LEAD STAT 08/08/2024 8:56 PM MATERIAL LOADER RESPIRATORY PATHOGEN PANEL Routine 08/06/2024 9:59 AM MATERIAL LOADER from Last 3 Months Results * eGFR (09/11/2024 9:10 PM MATERIAL LOADER) eGFR >90 >=60 mL/min/1. 73 m2 Comment: [...] last reviewed 2021. Blood 09/11/2024 9:10 PM MATERIAL LOADER 09/11/2024 9:30 PM MATERIAL LOADER us Salena Crawley MD LAB BLOOD ORDERABLES Fin al Result JADA [facility] [address] Department [place] [address] * Differential, auto (09/11/2024 9:10 PM MATERIAL LOADER) Neutrophil abs 3.8 1.5 - 6.5 K/cumm Imm gran abs 0.0 0.0 - 0.1 K/cumm [facility] Lymphocyte abs 1.1 0.8 - 3.3 K/cumm [facility] Monocyte abs 0.5 0.2 - 0.8 K/cumm [facility] Eosinophil abs 0.2 0.0 - 0.5 K/cumm [facility] Basophil abs 0.0 0.0 - 0.1 K/cumm [facility] Neutrophil pct 67.2 % [facility] Comment: Interpretive Data Percent cell count reference ranges are not reported, since discordance with absolute values may lead to misinterpretation of CBC data. Current Interpretive Data was last revised on 2017. Imm gran pct 0.4 % [facility] Comment: Interpretive Data Percent cell count reference ranges are not reported, since discordance with absolute values may lead to misinterpretation of CBC data. Current Interpretive Data was last revised on 2017. Lymphocyte pct 20.1 % [facility] Comment: Interpretive Data Percent cell count reference ranges are not reported, since discordance with absolute values may lead to misinterpretation of CBC data. Current Interpretive Data was last revised on 2017. Monocyte pct 8.6 % [facility] Comment: Interpretive Data Percent cell count reference ranges are not reported, since discordance with absolute values may lead to misinterpretation of CBC data. Current Interpretive Data was last revised on 2017. Eosinophil pct 3.2 % [facility] Comment: Interpretive Data Percent cell count reference ranges are not reported, since discordance with absolute values may lead to misinterpretation of CBC data. Current Interpretive Data was last revised on 2017. Basophil pct 0.5 % [facility] Comment: Interpretive Data Percent cell count reference ranges are not reported, since discordance with absolute values may lead to misinterpretation of CBC data. Current Interpretive Data was last revised on 2017. Blood 09/11/2024 9:10 PM MATERIAL LOADER 09/11/2024 9:30 PM MATERIAL LOADER us Salena Crawley MD LAB BLOOD ORDERABLES Fin al Result [facility] [address] [place] [address] * Pro B-type natriuretic peptide (09/11/2024 9:10 PM MATERIAL LOADER) [facility] NT-proBNP <36 <=300 pg/mL Comment: Interpretive Comments: [...] Revised Date: 2018. Blood 09/11/2024 9:10 PM MATERIAL LOADER 09/11/2024 9:30 PM MATERIAL LOADER us Salena Crawley MD LAB BLOOD ORDERABLES Fin al Result JADA [facility] [address] Department [place] [address] * CBC with auto differential (09/11/2024 9:10 PM MATERIAL LOADER) [facility] WBC 5.7 3.8 - 9.9 K/cumm Hgb 13.1 13.0 - 17.5 g/dL [facility] Hct 40.0 38.9 - 50.3 % [facility] Plt 184 150 - 400 K/cumm [facility] MPV 10.6 9.1 - 12.3 fL [facility] RBC 4.43 4.30 - 5.80 M/cumm [facility] MCV 90.3 81.3 - 96.4 fL [facility] MCH 29.6 27.1 - 33.3 pg [facility] MCHC 32.8 32.3 - 35.7 g/dL [facility] RDW CV 12.7 11.1 - 14.9 % [facility] RDW SD 41.7 35.7 - 48.1 fL [facility] NRBC abs 0.00 0.00 - 0.01 K/cumm [facility] Blood 09/11/2024 9:10 PM MATERIAL LOADER 09/11/2024 9:30 PM MATERIAL LOADER us Salena Crawley MD LAB BLOOD ORDERABLES Fin al Result [facility] [address] Department [place] [address] * (ABNORMAL) Comprehensive metabolic panel (09/11/2024 9:10 PM MATERIAL LOADER) [facility] Sodium 142 135 - 145 mmol/L Potassium, pl 4.3 3.3 - 4.9 mmol/L [facility] Chloride 101 97 - 110 mmol/L [facility] CO2 28 22 - 32 mmol/L [facility] Anion gap 13 2 - 15 mmol/L [facility] BUN 28(H) 6 - 25 mg/dL [facility] Creatinine 0.89 0.80 - 1.30 mg/dL [facility] Glucose 113 70 - 199 mg/dL [facility] Comment: Interpretive Data Fasting glucose >/= [...] 2022. Calcium 9.2 8.5 - 10.3 mg/dL [facility] Bilirubin, total 0.8 0.1 - 1.2 mg/dL [facility] Protein, pl 6.7 6.5 - 8.5 g/dL [facility] Albumin 4.0 3.5 - 5.0 g/dL [facility] Alk phos 79 40 - 130 Units/L [facility] ALT 62(H) 7 - 55 Units/L [facility] AST 40 10 - 50 Units/L [facility] Comment:Slightly Hemolyzed S pecimen Blood 09/11/2024 9:10 PM MATERIAL LOADER 09/11/2024 9:30 PM MATERIAL LOADER us Salena Crawley MD LAB BLOOD ORDERABLES Fin al Result [facility] [address] [place] [address] * eGFR (09/07/2024 2:59 AM MATERIAL LOADER) eGFR >90 >=60 mL/min/1. 73 m2 Comment: [...] last reviewed 2021. Blood 09/07/2024 2:59 AM MATERIAL LOADER 09/07/2024 3:02 AM MATERIAL LOADER us Jair Armendariz MD LAB BLOOD ORDERABLES Final Result [address] Department [place] [address] * Differential, auto (09/07/2024 2:59 AM MATERIAL LOADER) Neutrophil abs 3.0 1.5 - 6.5 K/cumm Imm gran abs 0.0 0.0 - 0.1 K/cumm [facility] Lymphocyte abs 2.1 0.8 - 3.3 K/cumm [facility] Monocyte abs 0.4 0.2 - 0.8 K/cumm [facility] Eosinophil abs 0.2 0.0 - 0.5 K/cumm [facility] Basophil abs 0.0 0.0 - 0.1 K/cumm [facility] Neutrophil pct 51.2 % [facility] Comment: Interpretive Data Percent cell count reference ranges are not reported, since discordance with absolute values may lead to misinterpretation of CBC data. Current Interpretive Data was last revised on 2017. Imm gran pct 0.3 % [facility] Comment: Interpretive Data Percent cell count reference ranges are not reported, since discordance with absolute values may lead to misinterpretation of CBC data. Current Interpretive Data was last revised on 2017. Lymphocyte pct 36.9 % [facility] Comment: Interpretive Data Percent cell count reference ranges are not reported, since discordance with absolute values may lead to misinterpretation of CBC data. Current Interpretive Data was last revised on 2017. Monocyte pct 6.9 % [facility] Comment: Interpretive Data Percent cell count reference ranges are not reported, since discordance with absolute values may lead to misinterpretation of CBC data. Current Interpretive Data was last revised on 2017. Eosinophil pct 4.0 % [facility] Comment: Interpretive Data Percent cell count reference ranges are not reported, since discordance with absolute values may lead to misinterpretation of CBC data. Current Interpretive Data was last revised on 2017. Basophil pct 0.7 % [facility] Comment: Interpretive Data Percent cell count reference ranges are not reported, since discordance with absolute values may lead to misinterpretation of CBC data. Current Interpretive Data was last revised on 2017. Blood 09/07/2024 2:59 AM MATERIAL LOADER 09/07/2024 3:02 AM MATERIAL LOADER Jair Armendariz MD LAB BLOOD ORDERABLES Final Result [address] Department [place] [address] * (ABNORMAL) CBC with auto differential (09/07/2024 2:59 AM MATERIAL LOADER) WBC 5.8 3.8 - 9.9 K/cumm Hgb 12.3(L) 13.0 - 17.5 g/dL [facility] Hct 37.2(L) 38.9 - 50.3 % [facility] Plt 163 150 - 400 K/cumm [facility] MPV 10.4 9.1 - 12.3 fL [facility] RBC 4.17(L) 4.30 - 5.80 M/cumm [facility] MCV 89.2 81.3 - 96.4 fL [facility] MCH 29.5 27.1 - 33.3 pg [facility] MCHC 33.1 32.3 - 35.7 g/dL [facility] RDW CV 12.6 11.1 - 14.9 % [facility] RDW SD 41.1 35.7 - 48.1 fL [facility] NRBC abs 0.00 0.00 - 0.01 K/cumm [facility] Blood 09/07/2024 2:59 AM MATERIAL LOADER 09/07/2024 3:02 AM MATERIAL LOADER Jair Armendariz MD LAB BLOOD ORDERABLES Final Result Performing Organization Address City/[facility]/ZIP Co de Phone Number [facility] [address] Department [place] [address] * Basic metabolic panel (09/07/2024 2:59 AM MATERIAL LOADER) Pathologist [facility] Sodium 143 135 - 145 mmol/L Potassium, pl 4.4 3.3 - 4.9 mmol/L [facility] Chloride 109 97 - 110 mmol/L [facility] CO2 25 22 - 32 mmol/L [facility] Anion gap 9 2 - 15 mmol/L [facility] BUN 24 6 - 25 mg/dL [facility] Creatinine 0.87 0.80 - 1.30 mg/dL [facility] Glucose 86 70 - 199 mg/dL [facility] Comment: Interpretive Data Fasting glucose [...] 2022. Calcium 9.1 8.5 - 10.3 mg/dL [facility] Blood 09/07/2024 2:59 AM MATERIAL LOADER 09/07/2024 3:02 AM MATERIAL LOADER Jair Armendariz MD LAB BLOOD ORDERABLES Final Result Performing Organization Address City/[facility]/ZIP Co de Phone Number [address] Department [place] [address] * US Vein Duplex Lower Extremity Bilateral Complete (09/03/2024 7:37 PM MATERIAL LOADER) Anatomical Region Laterality Modality Vascular Bilateral Ultrasound 09/04/2024 2:26 PM MATERIAL LOADER Impressions 09/04/2024 2:26 PM MATERIAL LOADER 1. No evidence of DVT in the lower extremities bilaterally. 2. Evidence of pulsatile venous flow. This may suggest increased intravascular volume or right-sided valvular heart disease. Clinical correlation suggested. 3. No change when compared to previous studies. Electronically signed by: Lv Smart M.D. Narrative 09/04/2024 2:26 PM MATERIAL LOADER Lower Extremity Vein Duplex Bilateral DATE: 09/03/2024 [...] Lv Smart M.D. us Ofelia Stanley MD IM US PROCEDURES Final Re sult * MRI Shoulder Right WO Contrast (09/02/2024 9:06 AM MATERIAL LOADER) Anatomical Region Laterality Modality Upper Extremities Right Magnetic Reson ance 09/02/2024 11:0 8 AM MATERIAL LOADER Impressions 09/02/2024 12:42 PM MATERIAL LOADER 1. Minimal right rotator cuff tendinopathy without [...] Gudelia Berger MD Narrative 09/02/2024 12:42 PM MATERIAL LOADER EXAMINATION: 1. MRI right shoulder without contrast [...] Ankle Right 2 Views (09/01/2024 9:33 PM MATERIAL LOADER) Anatomical Region Laterality Modality Lower Extremities, Ankle Right Compute d Radiography 09/02/2024 8:13 AM MATERIAL LOADER Impressions 09/02/2024 8:13 AM MATERIAL LOADER There is mild swelling about the right ankle. There is a fracture of the base of 5th metacarpal, similar to prior. No additional fractures. The joints are normal. Electronically signed by: Brice Mantilla M.D. Narrative 09/02/2024 8:13 AM MATERIAL LOADER EXAMINATION: XR ANKLE RIGHT 2 VIEWS HISTORY: [...] Fibula Right 2 views (09/01/2024 8:37 AM MATERIAL LOADER) Anatomical Region Laterality Modality Lower Extremities, Lower Leg Right Com puted Radiography 09/01/2024 8:45 AM MATERIAL LOADER Impressions 09/01/2024 8:45 AM MATERIAL LOADER No acute fracture of the tibia or fibula. Alignment is normal. Electronically signed by: Greg Joy M.D. Narrative 09/01/2024 8:45 AM MATERIAL LOADER EXAMINATION: XR TIBIA FIBULA RIGHT2 VIEWS HISTORY: [...] 3 or More Views (08/31/2024 10:35 PM MATERIAL LOADER) Anatomical Region Laterality Modality Lower Extremities, Ankle Right Compute d Radiography 09/01/2024 11:1 6 AM MATERIAL LOADER Impressions 09/01/2024 11:16 AM MATERIAL LOADER Comparison is made to a prior study [...] Ness Liz M.D. Narrative 09/01/2024 11:16 AM MATERIAL LOADER EXAMINATION: XR ANKLE RIGHT 3 OR MORE [...] 3 or More Views (08/31/2024 10:34 PM MATERIAL LOADER) Anatomical Region Laterality Modality Lower Extremities, Foot Right Computed Radiography 09/01/2024 11:1 6 AM MATERIAL LOADER Impressions 09/01/2024 11:16 AM MATERIAL LOADER Comparison is made to a prior study [...] Ness Liz M.D. Narrative 09/01/2024 11:16 AM MATERIAL LOADER EXAMINATION: XR ANKLE RIGHT 3 OR MORE [...] Sepsis Lactate w/ Reflex (08/23/2024 2:33 AM MATERIAL LOADER) Sepsis Lactate 0.7 0.7 - 2.0 mmol/L Blood 08/23/2024 2:33 AM MATERIAL LOADER 08/23/2024 2:46 AM MATERIAL LOADER Salena Crawley MD LAB BLOOD ORDERABLES Fin al Result Performing Organization Address City/[facility] Co de Phone Number [facility] [address] Department [place] [address] * eGFR (08/23/2024 2:33 AM MATERIAL LOADER) eGFR >90 >=60 mL/min/1. 73 m2 Comment: [...] last reviewed 2021. Blood 08/23/2024 2:33 AM MATERIAL LOADER 08/23/2024 3:24 AM MATERIAL LOADER Salena Crawley MD LAB BLOOD ORDERABLES Fin al Result Performing Organization Address [facility] Co de Phone Number [facility] [address] Department [place] [address] * Differential, auto (08/23/2024 2:33 AM MATERIAL LOADER) Pathologist [facility] Neutrophil abs 3.1 1.5 - 6.5 K/cumm Imm gran abs 0.0 0.0 - 0.1 K/cumm [facility] Lymphocyte abs 2.0 0.8 - 3.3 K/cumm [facility] Monocyte abs 0.5 0.2 - 0.8 K/cumm [facility] Eosinophil abs 0.2 0.0 - 0.5 K/cumm [facility] Basophil abs 0.1 0.0 - 0.1 K/cumm [facility] Neutrophil pct 53.2 % [facility] Comment: Interpretive Data Percent cell count reference ranges are not reported, since discordance with absolute values may lead to misinterpretation of CBC data. Current Interpretive Data was last revised on 2017. Imm gran pct 0.2 % [facility] Comment: Interpretive Data Percent cell count reference ranges are not reported, since discordance with absolute values may lead to misinterpretation of CBC data. Current Interpretive Data was last revised on 2017. Lymphocyte pct 34.0 % [facility] Comment: Interpretive Data Percent cell count reference ranges are not reported, since discordance with absolute values may lead to misinterpretation of CBC data. Current Interpretive Data was last revised on 2017. Monocyte pct 7.8 % [facility] Comment: Interpretive Data Percent cell count reference ranges are not reported, since discordance with absolute values may lead to misinterpretation of CBC data. Current Interpretive Data was last revised on 2017. Eosinophil pct 3.8 % [facility] Comment: Interpretive Data Percent cell count reference ranges are not reported, since discordance with absolute values may lead to misinterpretation of CBC data. Current Interpretive Data was last revised on 2017. Basophil pct 1.0 % [facility] Comment: Interpretive Data Percent cell count reference ranges are not reported, since discordance with absolute values may lead to misinterpretation of CBC data. Current Interpretive Data was last revised on 2017. Blood 08/23/2024 2:33 AM MATERIAL LOADER 08/23/2024 3:24 AM MATERIAL LOADER us Salena Crawley MD LAB BLOOD ORDERABLES Fin al Result [facility] [address] Department [place] [address] * Pro B-type natriuretic peptide (08/23/2024 2:33 AM MATERIAL LOADER) NT-proBNP <36 <=300 pg/mL Comment: Interpretive Comments: [...] Eur Heart J. 2006:27:330-337. 2. Xiomara RW, Rubin AM. J. AM Emerson Cardiol: Cardiovasc Imag. 2009;2: 216- 225. Interpretive Data Last Revised Date: 2018. Blood 08/23/2024 2:33 AM MATERIAL LOADER 08/23/2024 3:24 AM MATERIAL LOADER Salena Crawley MD LAB BLOOD ORDERABLES Fin al Result [facility] [address] Department [place] [address] * (ABNORMAL) CBC with auto differential (08/23/2024 2:33 AM MATERIAL LOADER) WBC 5.8 3.8 - 9.9 K/cumm Hgb 12.9(L) 13.0 - 17.5 g/dL [facility] Hct 39.2 38.9 - 50.3 % [facility] Plt 205 150 - 400 K/cumm [facility] MPV 10.8 9.1 - 12.3 fL [facility] RBC 4.39 4.30 - 5.80 M/cumm [facility] MCV 89.3 81.3 - 96.4 fL [facility] MCH 29.4 27.1 - 33.3 pg [facility] MCHC 32.9 32.3 - 35.7 g/dL [facility] RDW CV 12.8 11.1 - 14.9 % [facility] RDW SD 41.8 35.7 - 48.1 fL [facility] NRBC abs 0.00 0.00 - 0.01 K/cumm [facility] Blood 08/23/2024 2:33 AM MATERIAL LOADER 08/23/2024 3:24 AM MATERIAL LOADER Salena Crawley MD LAB BLOOD ORDERABLES Fin al Result [facility] [address] Department [place] [address] * Blood culture Blood (08/23/2024 2:33 AM MATERIAL LOADER) Report Final Report: No growth Blood 08/23/2024 2:33 AM MATERIAL LOADER 08/23/2024 2:47 AM MATERIAL LOADER Narrative [facility] - 08/28/2024 7:01 AM MATERIAL LOADER From a different site than #1. Collection->Peripheral [...] organism identification may be performed using the [employer] Blood Culture Identification panel. This assay detects microbial DNA in a blood culture broth. This assay has been cleared by the [place] Food and Drug Administration and its performance characteristics have been verified by the [facility]. Interpretive data was last revised on September 03, 2022. us Salena Crawley MD LAB MICROBIOLOGY - GENER AL ORDERABLES Final Result Performing Organization Address [facility] Co de Phone Number [facility] [address] Department [place] [address] * Blood culture Blood (08/23/2024 2:33 AM MATERIAL LOADER) Pathologist [facility] Report Final Report: No growth Blood 08/23/2024 2:33 AM MATERIAL LOADER 08/23/2024 2:48 AM MATERIAL LOADER Narrative [facility] - 08/28/2024 7:01 AM MATERIAL LOADER Collection->Peripheral Interpretive Data 1. Blood cultures are incubated and monitored continuously for 5 days (120 hours). The first negative report is issued within 24 hours of receipt in the laboratory. 2. All positive cultures are resulted and called to physicians/care providers as soon as they are detected. 3. A rapid molecular test for organism identification may be performed using the [employer] Blood Culture Identification panel. This assay detects microbial DNA in a blood culture broth. This assay has been cleared by the [place] Food and Drug Administration and its performance characteristics have been verified by the [facility]. Interpretive data was last revised on September 03, 2022. Salena Crawley MD LAB MICROBIOLOGY - GENER AL ORDERABLES Final Result Performing Organization Address [facility] Co de Phone Number [facility] [address] Department [place] [address] * (ABNORMAL) Comprehensive metabolic panel (08/23/2024 2:33 AM MATERIAL LOADER) Sodium 140 135 - 145 mmol/L Potassium, pl 3.9 3.3 - 4.9 mmol/L [facility] Chloride 104 97 - 110 mmol/L [facility] CO2 25 22 - 32 mmol/L [facility] Anion gap 11 2 - 15 mmol/L [facility] BUN 24 6 - 25 mg/dL [facility] Creatinine 0.82 0.80 - 1.30 mg/dL [facility] Glucose 83 70 - 199 mg/dL [facility] Comment: Interpretive Data Fasting glucose >/= [...] 2022. Calcium 9.3 8.5 - 10.3 mg/dL [facility] Bilirubin, total 0.6 0.1 - 1.2 mg/dL [facility] Protein, pl 6.9 6.5 - 8.5 g/dL [facility] Albumin 4.0 3.5 - 5.0 g/dL [facility] Alk phos 70 40 - 130 Units/L [facility] ALT 65(H) 7 - 55 Units/L [facility] AST 30 10 - 50 Units/L [facility] Comment:Slightly Hemolyzed S pecimen Blood 08/23/2024 2:33 AM MATERIAL LOADER 08/23/2024 3:24 AM MATERIAL LOADER Salena Crawley MD LAB BLOOD ORDERABLES Fin al Result Performing Organization Address [facility] Co de Phone Number [facility] [address] [place] [address] * ECG 12 lead (08/23/2024 2:32 AM MATERIAL LOADER) 08/23/2024 2:32 AM MATERIAL LOADER Narrative [facility] - 08/24/2024 4:38 PM MATERIAL LOADER Vent Rate: 64 bpm RR Interval: 935 msec TN Interval: 174 msec QRS Duration: 109 msec QT Interval: 409 msec QTC Interval: 418 msec P-R-T [place]: 68 - 81 - 41 degrees IMPRESSION: SINUS RHYTHM NORMAL ECG Electronically Signed By: Andrea JONES Salena Crawley MD ECG ORDERABLES Final Re sult [facility] * eGFR (08/21/2024 12:35 AM MATERIAL LOADER) eGFR >90 >=60 mL/min/1. 73 m2 Comment: [...] reviewed 2021. Blood 08/21/2024 12:3 5 AM MATERIAL LOADER 08/21/2024 12:40 AM MATERIAL LOADER us Magalis MARQUES LAB BLOOD ORDERABLE S Final Result Performing Organization Address City/[facility]/ZIP Co de Phone Number [facility] [address] Department [place] [address] * Differential, auto (08/21/2024 12:35 AM MATERIAL LOADER) Neutrophil abs 3.7 1.5 - 6.5 K/cumm Imm gran abs 0.0 0.0 - 0.1 K/cumm [facility] Lymphocyte abs 2.2 0.8 - 3.3 K/cumm [facility] Monocyte abs 0.6 0.2 - 0.8 K/cumm [facility] Eosinophil abs 0.3 0.0 - 0.5 K/cumm [facility] Basophil abs 0.1 0.0 - 0.1 K/cumm [facility] Neutrophil pct 54.1 % [facility] Comment: Interpretive Data Percent cell count reference ranges are not reported, since discordance with absolute values may lead to misinterpretation of CBC data. Current Interpretive Data was last revised on 2017. Imm gran pct 0.1 % [facility] Comment: Interpretive Data Percent cell count reference ranges are not reported, since discordance with absolute values may lead to misinterpretation of CBC data. Current Interpretive Data was last revised on 2017. Lymphocyte pct 32.5 % [facility] Comment: Interpretive Data Percent cell count reference ranges are not reported, since discordance with absolute values may lead to misinterpretation of CBC data. Current Interpretive Data was last revised on 2017. Monocyte pct 8.3 % [facility] Comment: Interpretive Data Percent cell count reference ranges are not reported, since discordance with absolute values may lead to misinterpretation of CBC data. Current Interpretive Data was last revised on 2017. Eosinophil pct 4.3 % [facility] Comment: Interpretive Data Percent cell count reference ranges are not reported, since discordance with absolute values may lead to misinterpretation of CBC data. Current Interpretive Data was last revised on 2017. Basophil pct 0.7 % [facility] Comment: Interpretive Data Percent cell count reference ranges are not reported, since discordance with absolute values may lead to misinterpretation of CBC data. Current Interpretive Data was last revised on 2017. Blood 08/21/2024 12:3 5 AM MATERIAL LOADER 08/21/2024 12:40 AM MATERIAL LOADER us Magalis MARQUES LAB BLOOD ORDERABLE S Final Result [facility] [address] Department [place] [address] * (ABNORMAL) CBC with auto differential (08/21/2024 12:35 AM MATERIAL LOADER) WBC 6.9 3.8 - 9.9 K/cumm Hgb 12.1(L) 13.0 - 17.5 g/dL [facility] Hct 36.8(L) 38.9 - 50.3 % [facility] Plt 200 150 - 400 K/cumm [facility] MPV 10.1 9.1 - 12.3 fL [facility] RBC 4.14(L) 4.30 - 5.80 M/cumm [facility] MCV 88.9 81.3 - 96.4 fL [facility] MCH 29.2 27.1 - 33.3 pg [facility] MCHC 32.9 32.3 - 35.7 g/dL [facility] RDW CV 12.8 11.1 - 14.9 % [facility] RDW SD 41.5 35.7 - 48.1 fL [facility] NRBC abs 0.00 0.00 - 0.01 K/cumm [facility] Blood 08/21/2024 12:3 5 AM MATERIAL LOADER 08/21/2024 12:40 AM MATERIAL LOADER Magalis MARQUES LAB BLOOD ORDERABLE S Final Result Performing Organization Address City/[facility]/ZIP Co de Phone Number [address] [place] [place] [address] * Erythrocyte sedimentation rate (08/21/2024 12:35 AM MATERIAL LOADER) Erythrocyte sedimentation rate 5 1 - 15 mm/hr [facility] Blood 08/21/2024 12:3 5 AM MATERIAL LOADER 08/21/2024 12:40 AM MATERIAL LOADER Magalis Aguilera [place] LAB BLOOD ORDERABLE S Final Result [address] [place] [address] * CRP (acute phase) (08/21/2024 12:35 AM MATERIAL LOADER) CRP <3.5 <=10.0 mg/L Blood 08/21/2024 12:3 5 AM MATERIAL LOADER 08/21/2024 12:40 AM MATERIAL LOADER Magalis MARQUES LAB BLOOD ORDERABLE S Final Result [address] Department [place] [address] * (ABNORMAL) Basic metabolic panel (08/21/2024 12:35 AM MATERIAL LOADER) Pathologist [facility] Sodium 140 135 - 145 mmol/L Potassium, pl 4.2 3.3 - 4.9 mmol/L [facility] Chloride 104 97 - 110 mmol/L [facility] CO2 26 22 - 32 mmol/L [facility] Anion gap 10 2 - 15 mmol/L [facility] BUN 34(H) 6 - 25 mg/dL [facility] Creatinine 0.91 0.80 - 1.30 mg/dL [facility] Glucose 96 70 - 199 mg/dL [facility] Comment: Interpretive Data Fasting glucose [...] 2022. Calcium 9.1 8.5 - 10.3 mg/dL [facility] Blood 08/21/2024 12:3 5 AM MATERIAL LOADER 08/21/2024 12:40 AM MATERIAL LOADER us Magalis MARQUES LAB BLOOD ORDERABLE S Final Result Performing Organization Address [facility]/ZIP Co de Phone Number [address] Department [place] [address] * Streptococcus Group A PCR Throat (08/20/2024 9:19 AM MATERIAL LOADER) [facility] Strep A DNA Not Detected Not Detected Comment: This test is performed using the [employer] Xpert Group A Streptococcal Assay. This is [...] the performing laboratory. Throat 08/20/2024 9:19 AM MATERIAL LOADER 08/20/2024 9:22 AM MATERIAL LOADER Fei Murray MD LAB MICROBIOLOGY - GENERAL ORDERABLES Final Result Performing Organization Address City/State/[facility] Co de Phone Number [facility] [address] Department [place] [address] * Respiratory pathogen panel Nasopharyngeal (08/20/2024 9:19 AM MATERIAL LOADER) [facility] Influenza A RNA Not Detected Not Detected Influenza B RNA Not Detected Not Detected [facility] RSV RNA Not Detected Not Detected [facility] COVID-19 RNA Not Detected Not Detected [facility] Coronavirus 229E RNA Not Detected Not Detected [facility] Coronavirus HKU1 RNA Not Detected Not Detected [facility] Coronavirus NL63 RNA Not Detected Not Detected [facility] Coronavirus OC43 RNA Not Detected Not Detected [facility] Adenovirus DNA Not Detected Not Detected [facility] Metapneumovirus RNA Not Detected Not Detected [facility] Rhinovirus/Enterov irus RNA Not Detected Not Detected [facility] Parainfluenza 1 RNA Not Detected Not Detected [facility] Parainfluenza 2 RNA Not Detected Not Detected [facility] Parainfluenza 3 RNA Not Detected Not Detected [facility] Parainfluenza 4 RNA Not Detected Not Detected [facility] B. pertussis DNA Not Detected Not Detected [facility] B. parapertussis DNA Not Detected Not Detected [facility] C. pneumoniae DNA Not Detected Not Detected [facility] M. pneumoniae DNA Not Detected Not Detected [facility] Comment: Interpretive Data The [employer] Respiratory Panel (RP2.1) assay is a [...] assay has FDA clearance for testing of FIRE EQUIPMENT INSPECTOR swabs. The performance characteristics of this assay have been determined by [facility]. Current interpretive data was last revised on 2021. Nasopharyngeal 08/20/2024 9: 19 AM MATERIAL LOADER 08/20/2024 9:22 AM MATERIAL LOADER Narrative JADA JUSTIN - 08/20/2024 10:22 AM MATERIAL LOADER Is the Patient experiencing symptoms consistent with COVID?->Yes Surveillance testing for transplant patient?->No Fei Murray MD LAB MICROBIOLOGY - GENERAL ORDERABLES Final Result Performing Organization Address [facility] Co de Phone Number JADA JUSTIN [address] [place] [place] [address] [place] * (ABNORMAL) D-dimer, quantitative (08/15/2024 1:08 AM MATERIAL LOADER) D-Dimer 647(H) <=499 ng/mL FEU Comment: Interpretive [...] revised on 2019. Blood 08/15/2024 1:08 AM MATERIAL LOADER 08/15/2024 1:11 AM MATERIAL LOADER Maddison Muhammad NP LAB BLOOD ORDERABLES Final Resul t Performing Organization Address [facility] Co de Phone Number JADA [facility] [address] [place] [place] [address] * eGFR (08/14/2024 9:59 PM MATERIAL LOADER) eGFR >90 >=60 mL/min/1. 73 m2 Comment: [...] last reviewed 2021. Blood 08/14/2024 9:59 PM MATERIAL LOADER 08/14/2024 10:10 PM MATERIAL LOADER us Abigail Richards MD LAB BLOOD ORDERABLES Final Result [facility] [address] [facility]. [place] [address] * Differential, auto (08/14/2024 9:59 PM MATERIAL LOADER) Neutrophil abs 3.7 1.5 - 6.5 K/cumm Imm gran abs 0.0 0.0 - 0.1 K/cumm [facility] Lymphocyte abs 2.0 0.8 - 3.3 K/cumm [facility] Monocyte abs 0.5 0.2 - 0.8 K/cumm [facility] Eosinophil abs 0.2 0.0 - 0.5 K/cumm [facility] Basophil abs 0.1 0.0 - 0.1 K/cumm [facility] Neutrophil pct 57.5 % [facility] Comment: Interpretive Data Percent cell count reference ranges are not reported, since discordance with absolute values may lead to misinterpretation of CBC data. Current Interpretive Data was last revised on 2017. Imm gran pct 0.2 % JADA HANSONW Comment: Interpretive Data Percent cell count reference [...] revised on 2017. Blood 08/14/2024 9:59 PM MATERIAL LOADER 08/14/2024 10:10 PM MATERIAL LOADER us Abigail Richards MD LAB BLOOD ORDERABLES Final Result JADA [facility] [address] [facility]. [place] [address] * Pro B-type natriuretic peptide (08/14/2024 9:59 PM MATERIAL LOADER) NT-proBNP 75 <=300 pg/mL Comment: Interpretive Comments: [...] Revised Date: 2018. Blood 08/14/2024 9:59 PM MATERIAL LOADER 08/14/2024 10:10 PM MATERIAL LOADER us Abigail Richards MD LAB BLOOD ORDERABLES Final Result [facility] [address] [facility]. Department of Laboratories [place], [place] [id number] * CBC with auto differential (08/14/2024 9:59 PM MATERIAL LOADER) [facility] WBC 6.5 3.8 - 9.9 K/cumm Hgb 13.3 13.0 - 17.5 g/dL [facility] Hct 39.8 38.9 - 50.3 % [facility] Plt 218 150 - 400 K/cumm [facility] MPV 10.0 9.1 - 12.3 fL [facility] RBC 4.49 4.30 - 5.80 M/cumm [facility] MCV 88.6 81.3 - 96.4 fL [facility] MCH 29.6 27.1 - 33.3 pg [facility] MCHC 33.4 32.3 - 35.7 g/dL [facility] RDW CV 12.7 11.1 - 14.9 % [facility] RDW SD 41.1 35.7 - 48.1 fL [facility] NRBC abs 0.00 0.00 - 0.01 K/cumm [facility] Blood (Blood, Venous) 08/14/2024 9:59 PM MATERIAL LOADER 08/14/2024 10:10 PM MATERIAL LOADER Abigail Richards MD LAB BLOOD ORDERABLES Final Result Performing Organization Address [facility] Co de Phone Number [facility] [address] [place] [address] * Lipase (08/14/2024 9:59 PM MATERIAL LOADER) Pathologist [facility] Lipase 50 10 - 99 Units/L Blood (Blood, Venous) 08/14/2024 9:59 PM MATERIAL LOADER 08/14/2024 10:10 PM MATERIAL LOADER Abigail Richards MD LAB BLOOD ORDERABLES Final Result Performing Organization Address [facility] de Phone Number [facility] [address] [place] [address] * (ABNORMAL) Comprehensive metabolic panel (08/14/2024 9:59 PM MATERIAL LOADER) [facility] Sodium 139 135 - 145 mmol/L Potassium, pl 3.9 3.3 - 4.9 mmol/L [facility] Chloride 101 97 - 110 mmol/L [facility] CO2 27 22 - 32 mmol/L [facility] Anion gap 11 2 - 15 mmol/L [facility] BUN 25 6 - 25 mg/dL [facility] Creatinine 0.90 0.80 - 1.30 mg/dL [facility] Glucose 92 70 - 199 mg/dL [facility] Comment: Interpretive Data Fasting glucose >/= [...] Units/L [facility] Blood 08/14/2024 9:59 PM MATERIAL LOADER 08/14/2024 10:10 PM MATERIAL LOADER Abigail Richards MD LAB BLOOD ORDERABLES Final Result [facility] [address] [facility]. [place] [address] * TRANSTHORACIC ECHO (TTE) COMPLETE W DOPPLER/CF WO CONTRAST (08/14/2024 11:39 AM MATERIAL LOADER) LV EF 55-60 % CONS SCIMAGE Anatomical Region Laterality Modality Ultrasound 08/14/2024 10:0 7 AM MATERIAL LOADER Narrative 08/14/2024 11:49 AM MATERIAL LOADER [facility] [address] [place] [address] ECHOCARDIOGRAM Patient Name: LISA MCCOY : 1980 (43y 11m) Gender: M Study Date: 08/14/2024 10:07:30 AM Ht(Inch): 68 Wt(Lb): 173.06 BSA: 1.94 Timber Killer: TC Location: [address] Order Provider: PHOEBE ADKINS BMI: [...] Jerel Ramirez MD PhD 08/14/2024 11:48:00 AM MATERIAL LOADER Procedure Note Jerel Ramirez MD PhD - 08/14/2024 [facility] [address] [place] [address] ECHOCARDIOGRAM Patient Name: LISA MCCOY : 1980 (43y 11m) Gender: M Study Date: 08/14/2024 10:07:30 AM Ht(Inch): 68 Wt(Lb): 173.06 BSA: 1.94 Timber Killer: NINFA Location: [address] Order Provider: PHOEBE ADKINS BMI: [...] Jerel Ramirez MD PhD 08/14/2024 11:48:00 AM MATERIAL LOADER us Phoebe Adkins MD CV ECHO PROCEDURES Final Result * eGFR (08/13/2024 5:30 AM MATERIAL LOADER) eGFR >90 >=60 mL/min/1. 73 m2 Comment: [...] last reviewed 2021. Blood 08/13/2024 5:30 AM MATERIAL LOADER 08/13/2024 6:25 AM MATERIAL LOADER Phoebe Adkins MD LAB BLOOD ORDERABLES Final Resul t Performing Organization Address [facility] Co de Phone Number [facility] [address] Department of [employer] [place], [place] [id number] * (ABNORMAL) CBC without differential (08/13/2024 5:30 AM MATERIAL LOADER) WBC 5.7 3.8 - 9.9 K/cumm Hgb 11.9(L) 13.0 - 17.5 g/dL [facility] Hct 36.4(L) 38.9 - 50.3 % [facility] Plt 186 150 - 400 K/cumm [facility] MPV 10.6 9.1 - 12.3 fL [facility] RBC 4.01(L) 4.30 - 5.80 M/cumm [facility] MCV 90.8 81.3 - 96.4 fL [facility] MCH 29.7 27.1 - 33.3 pg [facility] MCHC 32.7 32.3 - 35.7 g/dL [facility] RDW CV 13.0 11.1 - 14.9 % [facility] RDW SD 43.0 35.7 - 48.1 fL [facility] NRBC abs 0.00 0.00 - 0.01 K/cumm [facility] Blood 08/13/2024 5:30 AM MATERIAL LOADER 08/13/2024 6:25 AM MATERIAL LOADER Phoebe Adkins MD LAB BLOOD ORDERABLES Final Resul t [facility] [address] Department of [employer] [place], [place] [id number] * Phosphorus (08/13/2024 5:30 AM MATERIAL LOADER) Phosphorus, pl 2.9 2.3 - 4.5 mg/dL Blood 08/13/2024 5:30 AM MATERIAL LOADER 08/13/2024 6:25 AM MATERIAL LOADER us Phoebe Adkins MD LAB BLOOD ORDERABLES Final Resul t Performing Organization Address [facility] Co de Phone Number [facility] [address] [facility] [place] [address] * Magnesium (08/13/2024 5:30 AM MATERIAL LOADER) Magnesium 1.9 1.4 - 2.5 mg/dL Blood 08/13/2024 5:30 AM MATERIAL LOADER 08/13/2024 6:25 AM MATERIAL LOADER us Phoebe Adkins MD LAB BLOOD ORDERABLES Final Resul t Performing Organization Address [facility] de Phone Number [facility] [address] [facility] [place] [address] * Ferritin (08/13/2024 5:30 AM MATERIAL LOADER) Ferritin 39 30 - 400 ng/mL Blood 08/13/2024 5:30 AM MATERIAL LOADER 08/13/2024 6:24 AM MATERIAL LOADER us Phoebe Adkins MD LAB BLOOD ORDERABLES Final Resul t Performing Organization Address [facility] de Phone Number [facility] [address] [place] [address] * (ABNORMAL) Hepatic function panel (08/13/2024 5:30 AM MATERIAL LOADER) Bilirubin, total 0.4 0.1 - 1.2 mg/dL Bilirubin, direct <0.2 0.1 - 0.3 mg/dL [facility] Protein, pl 5.9(L) 6.5 - 8.5 g/dL [facility] Albumin 3.5 3.5 - 5.0 g/dL [facility] Alk phos 71 40 - 130 Units/L [facility] ALT 200(H) 7 - 55 Units/L [facility] AST 101(H) 10 - 50 Units/L [facility] Blood 08/13/2024 5:30 AM MATERIAL LOADER 08/13/2024 6:25 AM MATERIAL LOADER Russ Adkins MD LAB BLOOD ORDERABLES Final Resul t Performing Organization Address [facility] Co de Phone Number [facility] [address] [place] [address] * (ABNORMAL) Basic metabolic panel (08/13/2024 5:30 AM MATERIAL LOADER) Sodium 140 135 - 145 mmol/L Potassium, pl 4.1 3.3 - 4.9 mmol/L [facility] Chloride 106 97 - 110 mmol/L [facility] CO2 24 22 - 32 mmol/L [facility] Anion gap 10 2 - 15 mmol/L [facility] BUN 23 6 - 25 mg/dL [facility] Creatinine 0.82 0.80 - 1.30 mg/dL [facility] Glucose 87 70 - 199 mg/dL [facility] Comment: Interpretive Data Fasting glucose >/= [...] 2022. Calcium 8.1(L) 8.5 - 10.3 mg/dL [facility] Blood 08/13/2024 5:30 AM MATERIAL LOADER 08/13/2024 6:25 AM MATERIAL LOADER Phoebe Adkins MD LAB BLOOD ORDERABLES Final Resul t Performing Organization Address [facility]/ZIP Co de Phone Number [facility] [address] [place] [address] * Drugs of Abuse Screen, Urine with Reflex Confirmation (08/13/2024 12:15 AM MATERIAL LOADER) [facility] Amphetamine, ur Not Detected CutOff 500ng/mL Comment: Interpretive Data - Amphetamines: Samples containing greater than 500 ng/mL d-methamphetamine or other cross-reacting amphetamine compounds are reported as positive. Amphetamine immunoassays are subject to significant false positive rates due to cross-reactivity of non-amphetamine drugs. Confirmatory testing required for definitive results. Current Interpretive Data was last reviewed 2023. Barbiturates, ur Not Detected CutOff 200ng/mL [facility] Comment: Interpretive Data - Barbiturates: Samples containing greater than 200 ng/mL secobarbital or other cross-reacting barbiturate compounds are reported as positive. False positive and false negative results are possible. Confirmatory testing required for definitive results. Current Interpretive Data was last reviewed 2023. Benzodiazepines, ur Not Detected CutOff 100ng/mL [facility] Comment: Interpretive Data - Benzodiazepines: Samples containing greater than 100 ng/mL nordiazepam or other cross-reacting compounds are reported as positive. False positive and false negative results are possible. Confirmatory testing required for definitive results. Current Interpretive Data was last reviewed 2023. Cannabinoids, ur Not Detected CutOff 50 ng/mL [facility] Comment: Interpretive Data - Cannabinoids: Samples containing greater than 50 ng/mL delta-9 THC -COOH or other cross- reacting compounds are reported as positive. False positive and false negative results are possible. Confirmatory testing required for definitive results. Current Interpretive Data was last reviewed 2023. Cocaine, ur Not Detected CutOff 150ng/mL [facility] Comment: Interpretive Data - Cocaine: Samples containing greater than 150 ng/mL benzoylecgonine or other cross- reacting compounds are reported as positive. False positive and false negative results are possible. Confirmatory testing required for definitive results. Current Interpretive Data was last reviewed 2023. Fentanyl, Ur Not Detected CutOff 5 ng/mL [facility] Comment: Interpretive Data - Fentanyl: Samples containing greater than 5 ng/mL norfentanyl, fentanyl, or other cross-reacting fentanyl compounds are reported as positive. False positive and false negative results are possible. Confirmatory testing required for definitive results. Current Interpretive Data was last reviewed 2023. Methadone, ur Not Detected CutOff 300ng/mL [facility] Comment: Interpretive Data - Methadone: Samples containing greater than 300 ng/mL d,l-methadone or other cross-reacting compounds are reported as positive. False positive and false negative results are possible. Confirmatory testing required for definitive results. Current Interpretive Data was last reviewed 2023. Opiates, ur Not Detected CutOff 300ng/mL [facility] Comment: Interpretive Data - Opiates: Samples containing greater than 300 ng/mL morphine or other cross-reacting compounds are reported as positive. False positive and false negative results are possible. Confirmatory testing required for definitive results. Current Interpretive Data was last reviewed 2023. Oxycodone, ur Not Detected CutOff 100ng/mL [facility] Comment: Interpretive Data - Oxycodone: Samples containing greater than 100 ng/mL oxycodone or other cross-reacting compounds are reported as positive. False positive and false negative results are possible. Confirmatory testing required for definitive results. Current Interpretive Data was last reviewed 2023. Phencyclidine, ur Not Detected CutOff 25 ng/mL [facility] Comment: Interpretive Data - Phencyclidine: Samples containing greater than 25 ng/mL phencyclidine or other cross-reacting compounds are reported as positive. False positive and false negative results are possible. Confirmatory testing required for definitive results. Current Interpretive Data was last reviewed 2023. Urine Creatinine 90 mg/dL [facility] Comment: Interpretive Data Urine Creatinine: < 10 mg/dL is extremely dilute = or > 10 but < 20 mg/dL is dilute = or > 20 mg/dL is normal Current Interpretive Data was last revised on 2017. Urine 08/13/2024 12:1 5 AM MATERIAL LOADER 08/13/2024 12:26 AM MATERIAL LOADER Narrative [facility] - 08/13/2024 12:54 AM MATERIAL LOADER Drug of Abuse screening is performed by immunoassay for medical purposes only. This is not to be used for Pain Management purposes. If Detected, confirmation testing will be performed for Amphetamines, Cocaine, Fentanyl, Methadone, Opiates, Oxycodone or Phencyclidine. Batsheva Portillo MD LAB URINE ORDERABLES Final Result [facility] [address] [place] [address] * (ABNORMAL) Urinalysis reflex to microscopic and culture Urine (08/13/2024 12:15 AM MATERIAL LOADER) Color, ur Yellow Yellow Clarity, ur Clear Clear [facility] Specific gravity, ur >1.050(H) 1.003 - 1.030 [facility] pH, urine 6.5 [facility] Comment: Interpretive Data U rine pH is affected by diet, medications, systemic acid-base disturbances, and renal tubular function. pH may affect urinary stone formation. For example, urine pH below 6.0 may help reduce the tendency for calcium phosphate stones and pH greater than 6.0 may reduce the tendency for uric acid stone formation. Source: [facility] Current Interpretive Data was last revised on 2017 Protein, ur ql Negative Negative [facility] Glucose, ur ql Negative Negative [facility] Ketones, ur Negative Negative [facility] Bilirubin, ur Negative Negative [facility] Blood, ur Negative Negative [facility] Urobilinogen, ur <2.0 <2.0 mg/dL [facility] Nitrite, ur Negative Negative [facility] Leukocyte esterase, ur Negative Negative [facility] UA reflex comment Reflex conditions for microscopic UA and culture not met. [facility] Urine 08/13/2024 12:1 5 AM MATERIAL LOADER 08/13/2024 12:15 AM MATERIAL LOADER us Batsheva Portillo MD LAB MICROBIOLOGY - GENERAL ORDERABLES Final Result [facility] [address] [place] [address] * CT Chest PE (CTA) W Contrast (08/12/2024 11:48 PM MATERIAL LOADER) Anatomical Region Laterality Modality Body N/A Computed Tomogra phy 08/12/2024 11:4 3 PM MATERIAL LOADER Impressions 08/13/2024 9:24 AM MATERIAL LOADER No pulmonary embolism. Electronically signed by: Tari Gavin M.D. Narrative 08/13/2024 9:24 AM MATERIAL LOADER EXAMINATION: CT CHEST PE (CTA) W CONTRAST [...] Lower Extremity Bilateral Complete (08/12/2024 11:46 PM MATERIAL LOADER) Anatomical Region Laterality Modality Vascular Bilateral Ultrasound 08/13/2024 12:0 9 PM MATERIAL LOADER Impressions 08/13/2024 12:09 PM MATERIAL LOADER 1. No evidence of DVT in the lower extremities bilaterally. 2. Pulsatile venous flow bilaterally. This may suggest increased intravascular volume or right-sided valvular heart disease. Clinical correlation suggested. 3. Prominent lymph nodes in both groins. Electronically signed by: Lv Smart M.D. Narrative 08/13/2024 12:09 PM MATERIAL LOADER Lower Extremity Vein Duplex Bilateral DATE: 08/12/2024 [...] ult * US RUQ (08/12/2024 11:38 PM MATERIAL LOADER) Anatomical Region Laterality Modality Abdomen N/A Ultrasound 08/12/2024 10:4 5 PM MATERIAL LOADER Impressions 08/13/2024 11:42 AM MATERIAL LOADER 1. Trace perihepatic ascites. 2. Pulsatile portal venous flow and dilated inferior vena cava, which may represent elevated right heart pressures and/or tricuspid regurgitation. For the purposes of quality rep, this study was initially interpreted by teleradiology. There is no significant discrepancy. Electronically signed by: Saeid Baker MD, PHD Narrative 08/13/2024 11:42 AM MATERIAL LOADER EXAMINATION: LIMITED ABDOMINAL SONOGRAM HISTORY: Elevated liver [...] tricuspid regurgitation. For the purposes of quality rep, this study was initially interpreted by teleradiology. There is no significant discrepancy. Electronically signed by: Saeid Baker MD, PHD us Batsheva Portillo MD IMG US PROCEDURES Final Res ult * D-Dimer - Add on lab test (08/12/2024 10:29 PM MATERIAL LOADER) Acceptable Yes Blood 08/12/2024 10:2 9 PM MATERIAL LOADER 08/12/2024 10:29 PM MATERIAL LOADER Narrative [facility] - 08/12/2024 10:29 PM MATERIAL LOADER Name of Test->D-Dimer us Batsheva Portillo MD LAB BLOOD ORDERABLES Final Result [facility] [address] [place] [address] * CT Head and Cervical Spine WO Contrast (08/12/2024 10:20 PM MATERIAL LOADER) Anatomical Region Laterality Modality Head and Neck N/A Computed Tomogra phy 08/12/2024 10:1 3 PM MATERIAL LOADER Impressions 08/13/2024 7:[address] HEAD: No acute intracranial abnormality or calvarial fracture. CT CERVICAL SPINE: 1. No acute osseous abnormality. 2. Multilevel cervical spondylosis; most pronounced at C5-C6 and C6-C7. For the purposes of quality rep, this study was initially interpreted by teleradiology. There is no significant discrepancy. Electronically signed by: Zaheer Navas M.D. Narrative 08/13/2024 7:02 AM MATERIAL LOADER EXAMINATION: 1. CT head without contrast 2. [...] and C6-C7. For the purposes of quality rep, this study was initially interpreted by teleradiology. There is no significant discrepancy. Electronically signed by: Zaheer Navas M.D. us Batsheva Portillo MD IM CT PROCEDURES Final Res ult * Protime-INR (08/12/2024 10:05 PM MATERIAL LOADER) PT 12.8 9.7 - 13.0 sec INR 1.18 0.90 - 1.20 [facility] Comment: Interpretive data Oral anticoagulant therapeutic ranges: Venous thromboembolism prophylaxis or treatment: 2.0-3.0 CARDIOLOGY Standard range: 2.0-3.0 High-intensity range: 2.5-3.5 Refer to indication-specific guidelines for appropriate target ranges for prosthetic heart valve replacement. Current interpretive data was last revised on 2019. Blood 08/12/2024 10:0 5 PM MATERIAL LOADER 08/12/2024 10:29 PM MATERIAL LOADER us Batsheva Portillo MD LAB BLOOD ORDERABLES Final Result Performing Organization Address City/[facility]/ZIP Co de Phone Number [facility]ADA [facility] [address] [employer] [place], [place] [id number] * (ABNORMAL) D-dimer, quantitative (08/12/2024 10:05 PM MATERIAL LOADER) D-Dimer 1,783(H) <=499 ng/mL FEU Comment: Interpretive [...] VTE cut-off 680 ng/ml FEU. References; Schfanny HT et al. Brit Med J. 2013;346:f2492. Carlitos et al. Annals Int Med. 2015;163:701-11. Current interpretive data was last revised on 2019. Blood 08/12/2024 10:0 5 PM MATERIAL LOADER 08/12/2024 10:05 PM MATERIAL LOADER us Batsheva Portillo MD LAB BLOOD ORDERABLES Final Result Performing Organization Address [facility] Co de Phone Number [facility]ADA [facility] [address] [employer] [place], [place] [id number] * Folate - Add on lab test (08/12/2024 9:53 PM MATERIAL LOADER) Acceptable Yes Blood 08/12/2024 9:53 PM MATERIAL LOADER 08/12/2024 9:53 PM MATERIAL LOADER Narrative [facility] - 08/12/2024 9:54 PM MATERIAL LOADER Name of Test->Folate us Batsheva Portillo MD LAB BLOOD ORDERABLES Final Result Performing Organization Address [facility] Co de Phone Number [facility] [address] [facility] [place] [address] * Vitamin B12 - Add on lab test (08/12/2024 9:53 PM MATERIAL LOADER) Acceptable Yes Blood 08/12/2024 9:53 PM MATERIAL LOADER 08/12/2024 9:54 PM MATERIAL LOADER Narrative [facility] - 08/12/2024 9:54 PM MATERIAL LOADER Name of Test->Vitamin B12 us Batsheva Portillo MD LAB BLOOD ORDERABLES Final Result Performing Organization Address [facility] Co de Phone Number [facility] [address] [facility] [place] [address] * Iron profile - Add on lab test (08/12/2024 9:53 PM MATERIAL LOADER) Acceptable Yes Blood 08/12/2024 9:53 PM MATERIAL LOADER 08/12/2024 9:54 PM MATERIAL LOADER Narrative [facility] - 08/12/2024 9:54 PM MATERIAL LOADER Name of Test->Iron profile Bathseva Portillo MD LAB BLOOD ORDERABLES Final Result Performing Organization Address [facility] Co de Phone Number [facility] [address] [facility] [place] [address] * NT-Pro BNP - Add on lab test (08/12/2024 9:53 PM MATERIAL LOADER) Acceptable Yes Blood 08/12/2024 9:53 PM MATERIAL LOADER 08/12/2024 9:53 PM MATERIAL LOADER Narrative [facility] - 08/12/2024 9:54 PM MATERIAL LOADER Name of Test->NT-Pro BNP us Batsheva Portillo MD LAB BLOOD ORDERABLES Final Result Performing Organization Address [facility] Co de Phone Number [facility] [address] [address] [facility] [place] [address] * TSH reflex Free T4 - Add on lab test (08/12/2024 9:53 PM MATERIAL LOADER) Acceptable Yes Blood 08/12/2024 9:53 PM MATERIAL LOADER 08/12/2024 9:53 PM MATERIAL LOADER Narrative [facility] 08/12/2024 9:54 PM MATERIAL LOADER Name of Test->TSH reflex Free T4 us Batsheva Portillo MD LAB BLOOD ORDERABLES Final Result Performing Organization Address [facility] Co de Phone Number [facility] [address] [facility] [place] [address] * Phosphorus - Add on lab test (08/12/2024 9:53 PM MATERIAL LOADER) Acceptable Yes Blood 08/12/2024 9:53 PM MATERIAL LOADER 08/12/2024 9:53 PM MATERIAL LOADER Narrative [facility] - 08/12/2024 9:55 PM MATERIAL LOADER Name of Test->Phosphorus us Batsheva Portillo MD LAB BLOOD ORDERABLES Final Result Performing Organization Address [facility] Co de Phone Number [facility] [address] [facility] [place] [address] * Magnesium - Add on lab test (08/12/2024 9:53 PM MATERIAL LOADER) Acceptable Yes Blood 08/12/2024 9:53 PM MATERIAL LOADER 08/12/2024 9:53 PM MATERIAL LOADER Narrative [facility] - 08/12/2024 9:55 PM MATERIAL LOADER Name of Test->Magnesium us Batsheva Portillo MD LAB BLOOD ORDERABLES Final Result [facility] [address] Department of [employer] [place], [place] [id number] * Troponin T high-sensitivity 2-hour (08/12/2024 9:52 PM MATERIAL LOADER) Pathologist [facility] Trop T hs 6 <=22 ng/L Comment: Interpretive Data For further hscTnT resources including the diagnostic algorithm and an aid in interpretation, copy and paste this link: https://nrl.testcatalog.org/show/hsTrop Current Interpretive Data last revised 2020. Trop T hs delta -1 ng/L [facility] Trop T hs interp Insignificant [facility] Blood 08/12/2024 9:52 PM MATERIAL LOADER 08/12/2024 10:30 PM MATERIAL LOADER us Ace Gonzales MD LAB BLOOD ORDERABLES F inal Result Performing Organization Address [facility]/ZIP Co de Phone Number [facility] [address] Department of [employer] [place], [place] [id number] * Ethanol (08/12/2024 9:52 PM MATERIAL LOADER) [facility] Ethanol <10 <=10 mg/dL Comment: Interpretive Data Legal limit of intoxication > or = 80 mg/dL Levels > or = 400 mg/dL are potentially TOXIC. Current interpretive data was last revised on 2018. Blood 08/12/2024 9:52 PM MATERIAL LOADER 08/12/2024 10:29 PM MATERIAL LOADER Batsheva Portillo MD LAB BLOOD ORDERABLES Final Result Performing Organization Address [facility]/ZIP Co de Phone Number [facility] [address] Department of [employer] [place], [place] [phone] * Hepatitis panel, acute Blood (08/12/2024 9:13 PM MATERIAL LOADER) Pathologist [facility] Hep A IgM Nonreactive Nonreactive Comment: Interpretive Data: If Hep A IgM Ab is reported as Equivocal, a new sample should be drawn in two weeks for testing. Current interpretive data was last revised on 19. Hep B core IgM Nonreactive Nonreactive [facility] Comment: Interpretive Data If HepB Core IgM Ab is reported as Equivocal, a new sample should be drawn in two weeks for testing. Current interpretive data was last revised on 19. Hep C Ab Nonreactive Nonreactive [facility] Comment: Interpretive Data Nonreactive: Antibodies to [...] last revised on 2019. HepBsAg Nonreactive Nonreactive [facility] Blood 08/12/2024 9:13 PM MATERIAL LOADER 08/12/2024 9:17 PM MATERIAL LOADER us Batsheva Portillo MD LAB MICROBIOLOGY - GENERAL ORDERABLES Final Result [facility] [address] Department [place] [address] * Acetaminophen level (08/12/2024 9:13 PM MATERIAL LOADER) Acetaminophen <5 <=5 mcg/mL Comment: Interpretive Data Significant hepatic injury may occur and treatment with n-acetyl cysteine is generally recommended if the acetaminophen level exceeds: 150 mcg/mL at 4 hours after ingestion 75 mcg/mL at 8 hours after ingestion 38 mcg/mL at 12 hours after ingestion 19 mcg/mL at 16 hours after ingestion Consult toxicology or poison control ([phone]) for unknown ingestion time. Current interpretive data was last revised 2023. Blood 08/12/2024 9:13 PM MATERIAL LOADER 08/12/2024 9:17 PM MATERIAL LOADER us Batsheva Portillo MD LAB BLOOD ORDERABLES Final Result Performing Organization Address [facility]/ZIP Co de Phone Number [facility] [address] [place] [address] * Troponin T high-sensitivity series (baseline, 2hr, 4hr, 6hr) (08/12/2024 8:08 PM MATERIAL LOADER) Trop T hs 7 <=22 ng/L Comment: Interpretive Data For further hscTnT resources including the diagnostic algorithm and an aid in interpretation, copy and paste this link: https://nrl.testcatalog.org/show/hsTrop Current Interpretive Data last revised 2020. Blood 08/12/2024 8:08 PM MATERIAL LOADER 08/12/2024 8:23 PM MATERIAL LOADER us Batsheva Portillo MD LAB BLOOD ORDERABLES Final Result Performing Organization Address [facility] Co de Phone Number [facility] [address] [place] [address] * eGFR (08/12/2024 8:08 PM MATERIAL LOADER) eGFR >90 >=60 mL/min/1. 73 m2 Comment: [...] last reviewed 2021. Blood 08/12/2024 8:08 PM MATERIAL LOADER 08/12/2024 8:23 PM MATERIAL LOADER us Batsheva Portillo MD LAB BLOOD ORDERABLES Final Result [facility] [address] Department [place] [address] * Differential, auto (08/12/2024 8:08 PM MATERIAL LOADER) Neutrophil abs 3.5 1.5 - 6.5 K/cumm Imm gran abs 0.0 0.0 - 0.1 K/cumm [facility] Lymphocyte abs 2.2 0.8 - 3.3 K/cumm [facility] Monocyte abs 0.5 0.2 - 0.8 K/cumm [facility] Eosinophil abs 0.3 0.0 - 0.5 K/cumm [facility] Basophil abs 0.1 0.0 - 0.1 K/cumm [facility] Neutrophil pct 54.5 % [facility] Comment: Interpretive Data Percent cell count reference ranges are not reported, since discordance with absolute values may lead to misinterpretation of CBC data. Current Interpretive Data was last revised on 2017. Imm gran pct 0.3 % [facility] Comment: Interpretive Data Percent cell count reference ranges are not reported, since discordance with absolute values may lead to misinterpretation of CBC data. Current Interpretive Data was last revised on 2017. Lymphocyte pct 33.3 % [facility] Comment: Interpretive Data Percent cell count reference ranges are not reported, since discordance with absolute values may lead to misinterpretation of CBC data. Current Interpretive Data was last revised on 2017. Monocyte pct 6.9 % [facility] Comment: Interpretive Data Percent cell count reference ranges are not reported, since discordance with absolute values may lead to misinterpretation of CBC data. Current Interpretive Data was last revised on 2017. Eosinophil pct 4.1 % [facility] Comment: Interpretive Data Percent cell count reference ranges are not reported, since discordance with absolute values may lead to misinterpretation of CBC data. Current Interpretive Data was last revised on 2017. Basophil pct 0.9 % [facility] Comment: Interpretive Data Percent cell count reference ranges are not reported, since discordance with absolute values may lead to misinterpretation of CBC data. Current Interpretive Data was last revised on 2017. Blood 08/12/2024 8:08 PM MATERIAL LOADER 08/12/2024 8:23 PM MATERIAL LOADER us Batsheva Portillo MD LAB BLOOD ORDERABLES Final Result [facility] [address] Department [place] [address] * Pro B-type natriuretic peptide (08/12/2024 8:08 PM MATERIAL LOADER) NT-proBNP 60 <=300 pg/mL Comment: Interpretive Comments: [...] Revised Date: 2018. Blood 08/12/2024 8:08 PM MATERIAL LOADER 08/12/2024 8:23 PM MATERIAL LOADER us Batsheva Portillo MD LAB BLOOD ORDERABLES Final Result Performing Organization Address [facility] Co de Phone Number [facility] [address] Department [employer] [place], [place] [phone] * Thyroid Function [place] (08/12/2024 8:08 PM MATERIAL LOADER) TSH 1.43 0.30 - 4.20 mcIUnit/mL Blood 08/12/2024 8:08 PM MATERIAL LOADER 08/12/2024 8:23 PM MATERIAL LOADER us Batsheva Portillo MD LAB BLOOD ORDERABLES Final Result Performing Organization Address [facility] de Phone Number [facility] [address] Department of [employer] [place], [place] [phone] * (ABNORMAL) Iron profile w/ IBC (08/12/2024 8:08 PM MATERIAL LOADER) Pathologist [facility] Iron 46(L) 50 - 150 mcg/dL TIBC 296 250 - 400 mcg/dL [facility] Transferrin saturation 16(L) 20 - 50 % [facility] Blood 08/12/2024 8:08 PM MATERIAL LOADER 08/12/2024 8:23 PM MATERIAL LOADER Batsheva Portillo MD LAB BLOOD ORDERABLES Final Result Performing Organization Address [facility] Co de Phone Number [facility] [address] Department [employer] [place], [place] [phone] * (ABNORMAL) CBC with auto differential (08/12/2024 8:08 PM MATERIAL LOADER) WBC 6.5 3.8 - 9.9 K/cumm Hgb 12.5(L) 13.0 - 17.5 g/dL [facility] Hct 38.3(L) 38.9 - 50.3 % [facility] Plt 207 150 - 400 K/cumm [facility] MPV 10.1 9.1 - 12.3 fL [facility] RBC 4.22(L) 4.30 - 5.80 M/cumm [facility] MCV 90.8 81.3 - 96.4 fL [facility] MCH 29.6 27.1 - 33.3 pg [facility] MCHC 32.6 32.3 - 35.7 g/dL [facility] RDW CV 13.0 11.1 - 14.9 % [facility] RDW SD 43.2 35.7 - 48.1 fL [facility] NRBC abs 0.00 0.00 - 0.01 K/cumm [facility] Blood (Blood, Venous) 08/12/2024 8:08 PM MATERIAL LOADER 08/12/2024 8:23 PM MATERIAL LOADER us Batsheva Portillo MD LAB BLOOD ORDERABLES Final Result [facility] [address] [facility] [employer] [place], [place] [phone] * Phosphorus (08/12/2024 8:08 PM MATERIAL LOADER) Phosphorus, pl 3.1 2.3 - 4.5 mg/dL Blood 08/12/2024 8:08 PM MATERIAL LOADER 08/12/2024 8:23 PM MATERIAL LOADER us Batsheva Portillo MD LAB BLOOD ORDERABLES Final Result [facility] [address] [facility] [place] [address] * Magnesium (08/12/2024 8:08 PM MATERIAL LOADER) Magnesium 2.0 1.4 - 2.5 mg/dL Blood 08/12/2024 8:08 PM MATERIAL LOADER 08/12/2024 8:23 PM MATERIAL LOADER us Batsheva Portillo MD LAB BLOOD ORDERABLES Final Result Performing Organization Address [facility]/ZIP Co de Phone Number [facility] [address] [facility] [place] [address] * Folate (08/12/2024 8:08 PM MATERIAL LOADER) [facility] Folic acid 7.6 >=5.0 ng/mL Blood 08/12/2024 8:08 PM MATERIAL LOADER 08/12/2024 8:23 PM MATERIAL LOADER us Batsheva Portillo MD LAB BLOOD ORDERABLES Final Result Performing Organization Address [facility] Co de Phone Number [facility] [address] [place] [address] * Vitamin B12 (08/12/2024 8:08 PM MATERIAL LOADER) [facility] Vitamin B12 860 230 - 1,250 pg/mL Blood 08/12/2024 8:08 PM MATERIAL LOADER 08/12/2024 8:23 PM MATERIAL LOADER us Batsheva Portillo MD LAB BLOOD ORDERABLES Final Result Performing Organization Address [facility] Co de Phone Number [facility] [address] [facility] [place] [address] * (ABNORMAL) Comprehensive metabolic panel (08/12/2024 8:08 PM MATERIAL LOADER) [facility] Sodium 142 135 - 145 mmol/L Potassium, pl 4.4 3.3 - 4.9 mmol/L [facility] Chloride 106 97 - 110 mmol/L [facility] CO2 27 22 - 32 mmol/L [facility] Anion gap 9 2 - 15 mmol/L [facility] BUN 29(H) 6 - 25 mg/dL [facility] Creatinine 1.02 0.80 - 1.30 mg/dL [facility] Glucose 104 70 - 199 mg/dL [facility] Comment: Interpretive Data Fasting glucose >/= [...] 2022. Calcium 8.6 8.5 - 10.3 mg/dL [facility] Bilirubin, total 0.3 0.1 - 1.2 mg/dL [facility] Protein, pl 6.1(L) 6.5 - 8.5 g/dL [facility] Albumin 3.7 3.5 - 5.0 g/dL [facility] Alk phos 83 40 - 130 Units/L [facility] ALT 230(H) 7 - 55 Units/L [facility] AST 158(H) 10 - 50 Units/L [facility] Blood 08/12/2024 8:08 PM MATERIAL LOADER 08/12/2024 8:23 PM MATERIAL LOADER us Batsheva Poritllo MD LAB BLOOD ORDERABLES Final Result [facility] [address] Department [place] [address] * XR Chest PA Lateral 2 Views (08/12/2024 7:27 PM MATERIAL LOADER) Anatomical Region Laterality Modality Body, Chest N/A Computed Radiogr aphy 08/13/2024 7:44 AM MATERIAL LOADER Impressions 08/13/2024 7:44 AM MATERIAL LOADER There is subtle airspace opacity in the right lung base which may represent pneumonia in the appropriate clinical setting. Alternatively, this may represent atelectasis. No pleural effusion. No pneumothorax. Heart size is normal. Electronically signed by: Tari Gavin M.D. Narrative 08/13/2024 7:44 AM MATERIAL LOADER EXAMINATION: XR CHEST PA LATERAL 2 VIEWS [...] * ECG 12 lead (08/12/2024 6:48 PM MATERIAL LOADER) 08/12/2024 6:48 PM MATERIAL LOADER Narrative [facility] - 08/13/2024 1:41 PM MATERIAL LOADER Vent Rate: 63 bpm RR Interval: 938 msec TN Interval: 165 msec QRS Duration: 96 msec QT Interval: 378 msec QTC Interval: 386 msec P-R-T [place]: 74 - 81 - 50 degrees IMPRESSION: SINUS RHYTHM POSSIBLE LEFT ATRIAL ENLARGEMENT [-0.1mV P WAVE IN V1/V2] BORDERLINE ECG Electronically Signed By: Jerel Ramirez MD PhD us Batsheva Portillo MD ECG ORDERABLES Final Resul t [facility] * XR Chest Pa Lateral 2 Views (08/11/2024 2:02 AM MATERIAL LOADER) Anatomical Region Laterality Modality Body, Chest N/A Computed Radiogr aphy 08/11/2024 3:00 AM MATERIAL LOADER Impressions 08/11/2024 9:05 AM MATERIAL LOADER Comparison radiograph from 08/08/2024. No consolidation, pleural effusion, or pneumothorax. Cardiomediastinal silhouette within normal limits. Dictated by: Julio Rooney M.D. The radiology attending physician has personally reviewed this study, and had reviewed and/or edited this written report and agrees with it. Electronically signed by: Brice Mantilla M.D. Narrative 08/11/2024 9:05 AM MATERIAL LOADER EXAMINATION: 2 view chest radiograph Procedure Note [...] sult * ECG 12-LEAD (08/11/2024 1:43 AM MATERIAL LOADER) Narrative [facility] - 08/11/2024 1:43 AM MATERIAL LOADER Johnnie Kelly MD 08/11/2024 1:44 AM ECG [...] PA Lateral 2 Views (08/08/2024 10:42 PM MATERIAL LOADER) Anatomical Region Laterality Modality Body, Chest N/A Computed Radiogr aphy 08/08/2024 11:0 3 PM MATERIAL LOADER Impressions 08/09/2024 10:05 AM MATERIAL LOADER The current study is compared with the prior radiograph dated 09/13/2019. Mild bibasilar atelectasis. No consolidation, pleural effusion, or pneumothorax. Cardiomediastinal silhouette within normal limits. Dictated by: Chet Boogie MD The radiology attending physician has personally reviewed this study, and had reviewed and/or edited this written report and agrees with it. Electronically signed by: Steve Arce M.D. [facility] 08/09/2024 10:05 AM MATERIAL LOADER EXAMINATION: 2 view chest radiograph Procedure Note [...] CT Head WO Contrast (08/08/2024 10:34 PM MATERIAL LOADER) Anatomical Region Laterality Modality Head and Neck N/A Computed Tomogra phy 08/08/2024 10:4 4 PM MATERIAL LOADER Impressions 08/09/2024 10:54 AM MATERIAL LOADER 1. No acute intracranial process. 2. Large burden of cerumen in both external auditory canals which may be impacted. Dictated by: Juancho Marquez MD, Ph.D The radiology attending physician has personally reviewed this study, and had reviewed and/or edited this written report and agrees with it. Electronically signed by: Indio Zambrano M.D. Narrative 08/09/2024 10:54 AM MATERIAL LOADER EXAMINATION: CT head without contrast HISTORY: 43-year-old [...] it. Electronically signed by: Indio Zambrano M.D. Karlo Gatica MD IMG CT PROCEDURES Final Res ult * ECG 12-LEAD (08/08/2024 8:56 PM MATERIAL LOADER) Narrative [facility] - 08/08/2024 8:56 PM MATERIAL LOADER Salena Cobb MD 08/08/2024 8:57 PM ECG [...] in the ED Salena Cobb MD 08/08/[id number] us Karlo Gatica MD ECG ORDERABLES Final Resul t [facility] * (ABNORMAL) Respiratory pathogen panel Nasopharyngeal (08/06/2024 9:59 AM MATERIAL LOADER) Influenza A RNA Not Detected Not Detected Influenza B RNA Not Detected Not Detected [facility] RSV RNA Not Detected Not Detected [facility] COVID-19 RNA Not Detected Not Detected [facility] Coronavirus 229E RNA Not Detected Not Detected [facility] Coronavirus HKU1 RNA Not Detected Not Detected [facility] Coronavirus NL63 RNA Detected(A) Not Detected [facility] Coronavirus OC43 RNA Not Detected Not Detected [facility] Adenovirus DNA Not Detected Not Detected [facility] Metapneumovirus RNA Not Detected Not Detected [facility] Rhinovirus/Enterov irus RNA Not Detected Not Detected [facility] Parainfluenza 1 RNA Not Detected Not Detected [facility] Parainfluenza 2 RNA Not Detected Not Detected [facility] Parainfluenza 3 RNA Not Detected Not Detected [facility] Parainfluenza 4 RNA Not Detected Not Detected [facility] B. pertussis DNA Not Detected Not Detected [facility] B. parapertussis DNA Not Detected Not Detected [facility] C. pneumoniae DNA Not Detected Not Detected [facility] M. pneumoniae DNA Not Detected Not Detected [facility] Nasopharyngeal 08/06/2024 9: 59 AM MATERIAL LOADER 08/06/2024 10:52 AM MATERIAL LOADER Narrative [facility] - 08/06/2024 11:43 AM MATERIAL LOADER Is the Patient experiencing symptoms consistent with COVID?->Yes Surveillance testing for transplant patient?->No Interpretive Data The [employer] FilmArray Respiratory Panel (RP2.1) assay is a [...] assay has FDA clearance for testing of [employer] swabs. The performance of additional specimen types has been assessed by the performing laboratory. The performance characteristics of this assay have been determined by [facility] Molecular Infectious Disease Laboratory. Current interpretive data was last revised on 22. Eliza [facility]QUES LAB MICROBIOLOGY - GENERAL ORDE [place] Final Result [facility] Department of Laboratories [place], [place] [id number] from Last 3 Months Insurance [employer] [address] [address] [place] [address] [facility] [address] [address] [place] [address] [facility] [employer] [facility] Advance Directives For more information, please contact: [phone] * Full Code (Latest Code Status on File) Date Activated Date Inactivated Comments 08/13/2024 3:12 AM 08/14/2024 6:01 PM * Full Code Date Activated Date Inactivated Comments 10/28/2022 5:15 PM 10/29/2022 2:07 PM * Full Code Date Activated Date Inactivated Comments 08/09/2019 5:28 PM 08/10/2019 5:09 PM * Full Code Date Activated Date Inactivated Comments 07/29/2019 4:26 PM 08/04/2019 10:36 PM Care Teams Buckle Stapler Relationship Specialty [place] [address] [place] [address] PCP - General Family Medicine 05/18/24 [place] [id number] [address] [address] Referring Physician General Surgery 08/04/19 [place] [id number] [address] Consulting Physician Gastroenterology 08/04/19
[2024-09-17 18:04] VITALS: BP 107/66; PULSE 79; RESP 18; TEMP 36.7; O2SAT 100
--- NOTE | 2024-09-17 19:45 | PC.NURSE ---
RN called out for pt twice to be taken back to a room. Pt did not respond to call at this time 1943. Will recall again when another room is available otherwise pt is to be assumed to left without being seen.
--- NOTE | 2024-09-17 20:32 | PC.NURSE ---
Pt was called out at 2017 again to be brought back to room. Pt did not respond to call out. recreation therapy aide moved on to next pt in line and brought them back. 2020: Pt came up and states I think I heard them just call my name back . This RN states that we called for his name 3x and had no response so pt will have to wait for the next room to open again.
--- OUTSIDE RECORDS SUMMARY | 2024-09-17 21:23 | XMS_ITS | Encounter Summary ---
Author Organization [facility] Address [address] [place] [address] Care Team Providers Care Wind Energy Engineer Name Role Phone Jerel Camejo MD Primary Care Provider [phone] Encounter Details Date Type Department Care Team (Late Contact Info) Description 12/24/2022 Lab Requisition [facility] [employer] [address] [place] [address] Ny Hicks MD [address] [employer] [employer] [address] [place] [address] Generalized enlarged lymph nodes Social [...] on file Legal Sex Male 7:43 PM SURGICAL NURSE Gender Identity Not on file Sexual Orientation [...] (Late Contact Info) Description 09/18/2024 9:00 AM SURGICAL NURSE Office Visit [facility] - [address] [facility] [address] [place] [address] 08/27/2025 11:30 AM SURGICAL NURSE Office Visit [facility] Internal Medicine - [place] [address] [facility] [address] [place] [address] [place] [address] [address] [facility] [address] [place] [address] documented as of this encounter Procedures Procedure Name Priority Date/Time Associated Diagnosis Comments SEDIMENTATION RATE Stat 12/24/2022 12 :05 PM CDT Generalized enlarged lymph nodes C-REACTIVE PROTEIN Stat 12/24/2022 12 :05 PM CDT Generalized enlarged lymph nodes documented in this encounter Results * C-REACTIVE PROTEIN (12/24/2022 12:05 PM CDT) CRP <3.0 <5.0 mg/L 12/24/2022 3:02 PM CDT [facility] Blood 12/24/2022 12:0 5 PM CDT 12/24/2022 2:22 PM CDT Ny Hicks MD CHEMISTRY ORDERABLES Final Re sult [facility] CLIA# [id number] [address] [place] [address] * SEDIMENTATION RATE (12/24/2022 12:05 PM CDT) ESR (SEDIMENTATION RATE) 7 <=15 mm/Hr 12/24/2022 2:55 PM CDT [facility] Blood Collection / Unknown 12/24/2022 12:05 PM CDT 12/24/2022 2:22 PM CDT Ny Hicks MD HEMATOLOGY ORDERABLES Final R esult [facility] CLIA# [id number] [address] [place] [address] documented in this encounter Visit Diagnoses Diagnosis Generalized enlarged lymph nodes Enlargement of lymph nodes documented in this encounter Additional Health Concerns Infection Onset Date Last Indicated Resolved Time R/O COVID-19 08/21/2024 08/21/2024 08/21/2024 4:37 PM SURGICAL NURSE R/O Respiratory 09/08/2024 09/08/2024 09/09/2024 1 :04 AM SURGICAL NURSE documented as of this encounter Care Teams Wind Energy Engineer Relationship Specialty [place] [address] [facility] [address] Ch[address]vez [place] [address] [id number] PCP - General Family Practice 12/01/22 documented as of this encounter
--- OUTSIDE RECORDS SUMMARY | 2024-09-17 21:23 | XMS_ITS | Encounter Summary ---
Author Organization [facility] Address [address] [place] [address] Care Team Providers Care Wire Spring Relay Adjuster Name Role Phone Jerel Camejo MD Primary Care Provider [phone] Reason for Visit * Reason Comments Fatigue Generalized Body Aches Pt is here w c/o fatigue and slight nausea and body aches. He states he was in the ED and was given furosemide and is now not feeling well. Encounter Details Date Type Department Care Team (Late st Contact Info) Description 09/15/2024 6:00 PM SILVER SPRAY WORKER Office Visit [facility] [place] [address] [place] [address] Kay Melo, [facility] [address] [place] [address] Nausea and vomiting, unspecified vomiting [...] on file Legal Sex Male 7:43 PM SILVER SPRAY WORKER Gender Identity Not on file Sexual Orientation Not on file documented as of this encounter Last Filed Vital Signs Vital Sign Reading Time Taken Comments Blood Pressure 127/79 09/15/2024 5:54 PM SILVER SPRAY WORKER Pulse 93 09/15/2024 5:54 PM SILVER SPRAY WORKER Temperature 36.7 C (98.1 F) 09/15/2024 5:54 PM SILVER SPRAY WORKER Respiratory Rate 16 09/15/2024 5:54 PM SILVER SPRAY WORKER Oxygen Saturation 99% 09/15/2024 5:54 PM SILVER SPRAY WORKER Inhaled Oxygen Concentration - - Weight 74.8 kg (165 lb) 09/15/2024 5:54 PM SILVER SPRAY WORKER Height - - Body Mass Index 25.09 09/14/2024 11:08 PM SILVER SPRAY WORKER documented in this encounter Patient Instructions * Attachments The following attachments cannot be sent through Care Everywhere. * Nausea and Vomiting (Malagasy) documented in this encounter Progress Notes * [...] Note: Added automatically from request for surgery [id number] Leg wound, left 09/13/2019 Chronic abdominal pain 08/12/2019 S/P cholecystectomy 08/12/2019 Vasovagal episode 08/12/2019 Calculus of gallbladder 07/29/2019 Intractable right upper quadrant abdominal pain 07/29/2019 Overview Note: Added automatically from request for surgery [id number] Nausea 07/29/2019 Adjustment disorder with depressed mood [...] no erythema, no swelling, no exudates, no FORK OPERATOR. Neck: No resistance to flexion. Heart: regular rate and rhythm. Lungs: clear to auscultation bilaterally Extremities: Perfused. Psych: Affect normal, Interactive, conversant. Skin: warm, dry, no rash on visible skin. Lymphatics: No palpable lymphadenopathy, non-tender nodes. ER SPRAY WORKER documented in this encounter Plan of Treatment Upcoming Encounters Date Type Department Care Team (Late st Contact Info) Description 09/18/2024 9:00 AM SILVER SPRAY WORKER Office [facility] [address] [facility] [address] [place] [address] 08/27/2025 11:30 AM SILVER SPRAY WORKER Office Visit [facility] Internal Medicine - [place] [address] [place] [id number] [place] [address] [facility] [address] [place] [address] documented as of this encounter Procedures Procedure Name Priority Date/Time Associated Diagnosis Comments POC INFLUENZA A AND B ANTIGEN Routine 09/15/2024 6:16 PM SILVER SPRAY WORKER Nausea and vomiting, unspecified vomiting type documented in this encounter Results * POC INFLUENZA A AND B ANTIGEN (09/15/2024 6:16 PM SILVER SPRAY WORKER) INFLUENZA A AG POC Negative/Not Detected Negative/No t Detected [facility] INFLUENZA B AG POC Negative/Not Detected Negative/No t Detected [facility] INTERNAL KIT QC POC Pass Pass [facility] KIT LOT NUMBER POC [id number] [facility] KIT EXP DATE POC 05/01/[address] [facility] READ METHOD POC Visual [facility] Upper Respiratory ANTERIOR NARES SWAB / Unknown 09/15/2024 6:16 PM SILVER SPRAY WORKER Kay Melo [employer] POINT OF CARE TESTING F inal Result [facility] CLIA# [id number] [place] [address] documented in this encounter Visit Diagnoses Diagnosis Nausea and vomiting, unspecified vomiting type- Primary documented in this encounter Care Teams Wire Spring Relay Adjuster Relationship Specialty [place] [address] [facility] [address] [place] [address] PCP - General Family Practice 12/01/22 documented as of this encounter
--- OUTSIDE RECORDS SUMMARY | 2024-09-17 21:24 | XMS_ITS | Clinical Summary ---
Author Organization [facility] Address [address] [place] [phone] Phone Care Team Providers Care Retail Zone Specialist Name Role Phone Jerel Camejo MD Primary Care Provider [phone] Allergies Active Allergy Reactions Criticality Noted Date [...] (09/15/2024): Added automatically from request for surgery [id number] Leg wound, left 09/13/2019 Chronic abdominal pain 08/12/2019 S/P cholecystectomy 08/12/2019 Vasovagal episode 08/12/2019 Calculus of gallbladder 07/29/2019 Intractable right upper quadrant abdominal pain 07/29/2019 Overview (09/15/2024): Added automatically from request for surgery [id number] Nausea 07/29/2019 Adjustment disorder with depressed mood in remis devonte 11/05/2018 Generalized abdominal pain 10/25/2018 Sepsis 10/25/2018 Dizziness 10/20/2018 Syncope and collapse 10/20/2018 Encounters Date Type Department Care Team Description 09/17/2024 1:11 AM RUST - 09/17/2024 2:12 AM [facility] Emergency Department [address] [place] [address] Nolan Lee MD Venous insufficiency (chronic) (peripheral) (Primary Dx) Discharge Disposition: Home or Self Care 09/15/2024 6:00 PM RUST Office Visit [facility] [address] [place] [address] Kay Melo FNP Nausea and vomiting, unspecified vomiting type (Primary Dx) 09/15/2024 2:19 AM RUST - 09/15/2024 3:50 AM [facility] Emergency Department [address] [place] [phone] Greg Todd MD Lower extremity edema (Primary Dx) Discharge Disposition: Home or Self Care 09/14/2024 Travel 09/13/2024 8:17 AM RUST - 09/13/2024 11:47 AM [facility] Emergency Department [address] [place] [phone] Batsheva Hayden MD Leg swelling (Primary Dx) Discharge Disposition: Home or Self Care 09/13/2024 Travel 09/10/2024 9:10 PM RUST - 09/10/2024 10:05 PM [facility] Emergency Room [address] [place] [address] Bilateral lower extremity edema (Primary Dx) Discharge Disposition: Home or Self Care 09/09/2024 9:55 PM RUST - 09/10/2024 12:20 AM [facility] Emergency Department [address] [place] [phone] Nolan Lee MD 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 (Primary Dx) Discharge Disposition: Home or Self Care 09/09/2024 2:45 AM FRUIT VENDOR - 09/09/2024 3:11 AM [facility] Emergency Department [address] [place] [address] Mark Andrews DO Venous stasis dermatitis (Primary Dx); Other chronic pain Discharge Disposition: Home or Self Care 09/08/2024 Travel 09/05/2024 External Device Data STL ABSTRACTION Provider, Abstract 09/04/2024 6:46 AM FRUIT VENDOR - 09/04/2024 7:21 AM [facility] Emergency Department [address] [place] [address] Fei Napoles DO Chronic pain of left lower extremity (Primary Dx) Discharge Disposition: Home or Self Care 08/24/2024 11:37 PM FRUIT VENDOR - 08/24/2024 11:53 PM [facility] Emergency Department [address] [place] [phone] Wicho Camarillo DO Cellulitis, unspecified cellulitis site (Primary Dx) Discharge Disposition: Home or Self Care 08/24/2024 External Device Data STL ABSTRACTION Provider, Abstract 2024 Results Follow-Up [facility] Internal Medicine - [address] [place] [address] Jerel Camejo MD TSH, LIPID PANEL, COMPREHENSIVE METABOLIC PANEL, Additional followed-up results: 2 08/21/2024 3:00 PM RUST Office Visit [facility] Internal Medicine [address] [place] [address] Jerel Camejo MD Encounter for routine adult health examination with abnormal findings (Primary Dx); Adjustment disorder with depressed mood in remission; LAD (lymphadenopathy); Screening for cardiovascular condition; Screening for lipoid disorders; Screening for endocrine disorder 08/21/2024 2:59 PM RUST - 08/21/2024 7:44 PM [facility] Emergency Department [address] [place] [address] Mike Sandoval, Carmelo Phillips MD Leg edema (Primary Dx); Persistent cough Discharge Disposition: Home or Self Care 08/21/2024 Travel 08/17/2024 2:50 AM FRUIT VENDOR - 08/17/2024 3:37 AM RUST Emergency [facility] Emergency Department [address] [place] [phone] Nolan Lee MD Viral syndrome (Primary Dx); Bilateral lower extremity edema Discharge Disposition: Home or Self Care 08/15/2024 External Device Data STL ABSTRACTION Provider, Abstract 08/14/2024 Orders Only [facility] Oncology and Hematology [facility] [address] [facility] [address] [place] [phone] Ny Hicks MD Enlarged lymph nodes (Primary Dx) 08/11/2024 9:18 PM FRUIT VENDOR - 08/12/2024 12:53 AM RUST Emergency [facility] Emergency Department [address] [place] [phone] Nasrin White MD COVID-19 virus detected (Primary [...] on file Legal Sex Male 7:43 PM FRUIT VENDOR Gender Identity Not on file Sexual Orientation Not on file Last Filed Vital Signs Vital Sign Reading Time Taken Comments Blood Pressure 121/77 09/17/2024 1:40 AM FRUIT VENDOR Pulse 67 09/17/2024 1:40 AM FRUIT VENDOR Temperature 36.7 C (98 F) 09/16/2024 9:07 PM FRUIT VENDOR Respiratory Rate 19 09/17/2024 1:40 AM FRUIT VENDOR Oxygen Saturation 100% 09/17/2024 1:40 AM FRUIT VENDOR Inhaled Oxygen Concentration - - Weight 74.8 kg (165 lb) 09/16/2024 9:07 PM FRUIT VENDOR Height 172.7 cm (5' 8 ) 09/16/2024 9:07 PM FRUIT VENDOR Body Mass Index 25.09 09/16/2024 9:07 PM FRUIT VENDOR Plan of Treatment Upcoming Encounters Date Type Department Care Team (Late st Contact Info) Description 09/18/2024 9:00 AM FRUIT VENDOR Office Visit [facility] Heart and Vascular - [address] [facility] 300 [address] [facility] [address] [place] [address] 08/27/2025 11:30 AM FRUIT VENDOR Office Visit [facility] Internal Medicine - [place] [address] [facility] [address] [place] [phone] [place] [address] [address] [facility] [address] [place] [address] Health Maintenance Due Date Last Done Comments [...] 5TH GEN Timed Study 09/17/2024 1:35 AM FRUIT VENDOR EXTRA TUBE (BLUE) Stat 09/16/2024 9:1 3 PM FRUIT VENDOR EXTRA TUBE Stat 09/16/2024 9:13 PM FRUIT VENDOR COMPREHENSIVE METABOLIC PANEL Stat 09/16/2024 9:13 PM FRUIT VENDOR CBC WITH DIFFERENTIAL Stat 09/16/2024 9:13 PM FRUIT VENDOR TROPONIN BASELINE, 5TH GEN Stat 09/16/2024 9:13 PM FRUIT VENDOR EKG 12-LEAD Stat 09/16/2024 9:02 PM FRUIT VENDOR POC INFLUENZA A AND B ANTIGEN Routine 09/15/2024 6:16 PM FRUIT VENDOR Nausea and vomiting, unspecified vomiting type COMPREHENSIVE METABOLIC PANEL Stat 09/14/2024 11:53 PM FRUIT VENDOR CBC WITH DIFFERENTIAL Stat 09/14/2024 11:53 PM FRUIT VENDOR POC GLUCOSE Stat 09/14/2024 11:51 PM FRUIT VENDOR COMPREHENSIVE METABOLIC PANEL Stat 09/09/2024 9:16 PM FRUIT VENDOR CBC WITH DIFFERENTIAL Stat 09/09/2024 9:16 PM FRUIT VENDOR XR CHEST PA AND LATERAL 2 VW Stat 09/09/2024 1:17 AM FRUIT VENDOR RESPIRATORY PATHOGEN PCR PANEL Stat 09/08/2024 11:[address] CHEST ABDOMEN PELVIS W CONT Stat 08/21/2024 6:55 PM FRUIT VENDOR POC CREATININE Stat 08/21/2024 4:35 PM FRUIT VENDOR C-REACTIVE PROTEIN Stat 08/21/2024 4: 27 PM FRUIT VENDOR COMPREHENSIVE METABOLIC PANEL Stat 08/21/2024 4:27 PM FRUIT VENDOR CBC WITH DIFFERENTIAL Stat 08/21/2024 4:27 PM FRUIT VENDOR XR CHEST PA AND LATERAL 2 VW Stat 08/21/2024 3:25 PM FRUIT VENDOR INFLUENZA A/B, RSV AND COVID-19 PCR PANEL Stat 08/21/2024 3:11 PM FRUIT VENDOR INFLUENZA A/B, RSV AND COVID-19 PCR PANEL Stat 08/21/2024 3:11 PM FRUIT VENDOR HEMOGLOBIN A1C Routine 08/21/2024 2:08 PM FRUIT VENDOR Adjustment disorder with depressed mood in remission LAD (lymphadenopathy) CBC WITH DIFFERENTIAL Routine 08/21/2024 2:08 PM FRUIT VENDOR Adjustment disorder with depressed mood in remission LAD (lymphadenopathy) COMPREHENSIVE METABOLIC PANEL Routine 08/21/2024 2:08 PM FRUIT VENDOR Adjustment disorder with depressed mood in remission LAD (lymphadenopathy) LIPID PANEL Routine 08/21/2024 2:08 PM FRUIT VENDOR Adjustment disorder with depressed mood in remission LAD (lymphadenopathy) TSH Routine 08/21/2024 2:08 PM FRUIT VENDOR Adjustment disorder with depressed mood in remission LAD (lymphadenopathy) XR CHEST PA AND LATERAL 2 VW Stat 08/17/2024 3:26 AM FRUIT VENDOR TROPONIN 2 HR, 5TH GEN Timed Study 08/11/2024 11:[address] HEAD WO CONTRAST Stat 08/11/2024 1 0:18 PM FRUIT VENDOR EKG 12-LEAD Stat 08/11/2024 9:58 PM FRUIT VENDOR TROPONIN BASELINE, 5TH GEN Stat 08/11/2024 9:57 PM FRUIT VENDOR COMPREHENSIVE METABOLIC PANEL Stat 08/11/2024 9:57 PM FRUIT VENDOR CBC WITH DIFFERENTIAL Stat 08/11/2024 9:57 PM FRUIT VENDOR from Last 3 Months Results * TROPONIN 2 HR, 5TH GEN (09/17/2024 1:35 AM FRUIT VENDOR) Only the most recent of2 resultswithin the time period is included. TROPONIN T, 2 HR 5TH GEN <6 <=15 ng/L 09/17/2024 2:08 AM FRUIT VENDOR [facility] My Dentist [facility] Blood Venipuncture / Unknown 09/17/2024 1:35 AM FRUIT VENDOR 09/17/2024 1:40 AM FRUIT VENDOR Narrative [facility] - 09/17/2024 2:08 AM FRUIT VENDOR Troponin Undetectable Delay in collection of timed specimen beyond recommended collection interval. Results must be interpreted in clinical context. Unable to calculate delta. Nolan Lee MD CHEMISTRY ORDERABLES Final R esult Performing Organization Address City/[facility]/ZIP Co de Phone Number [facility] CLIA# [id number] [place] [address] * EXTRA TUBE (BLUE) (09/16/2024 9:13 PM FRUIT VENDOR) Blood Venipuncture / Unknown 09/16/2024 9:13 PM FRUIT VENDOR 09/16/2024 9:20 PM FRUIT VENDOR Nolan Lee MD HEMATOLOGY ORDERABLES Final Result [facility] CLIA# [id number] [place] [address] * TROPONIN BASELINE, 5TH GEN (09/16/2024 9:13 PM FRUIT VENDOR) Only the most recent of2 resultswithin the time period is included. TROPONIN T, BASELINE 5TH GEN <6 <=15 ng/L 09/16/2024 9:58 PM [facility] Blood Venipuncture / Unknown 09/16/2024 9:13 PM FRUIT VENDOR 09/16/2024 9:20 PM FRUIT VENDOR Narrative [facility] - 09/16/2024 9:58 PM FRUIT VENDOR Troponin Undetectable Nolan Lee MD CHEMISTRY ORDERABLES Final R esult [facility] CLIA# [id number] [place] [address] * (ABNORMAL) CBC WITH DIFFERENTIAL (09/16/2024 9:13 PM FRUIT VENDOR) Only the most recent of6 resultswithin the time period is included. Pathologist [facility] WBC 5.4 4.0 - 9.8 K/uL 09/16/2024 9:28 PM [facility] RBC 4.06(L) 4.50 - 5.40 M/uL 09/16/2024 9:28 PM [facility] HEMOGLOBIN 12.0(L) 13.6 - 16.5 g/dL 09/16/2024 9:28 PM [facility] HEMATOCRIT 36.7(L) 40.0 - 48.0 % 09/16/2024 9:28 PM [facility] MCV 90.4 82.0 - 99.0 fL 09/16/2024 9:28 PM [facility] MCH 29.6 27.2 - 32.6 pg 09/16/2024 9:28 PM [facility] MCHC 32.7 31.5 - 35.5 g/dL 09/16/2024 9:28 PM [facility] RDW 12.4 11.5 - 14.5 % 09/16/2024 9:28 PM [facility] RDW-STDEV 41.1 37.1 - 48.7 fL 09/16/2024 9:28 PM FRUIT VENDOR [facility] PLATELETS 161 140 - 350 K/uL 09/16/2024 9:28 PM FRUIT VENDOR [facility] MPV 10.0 9.3 - 12.4 fL 09/16/2024 9:28 PM FRUIT VENDOR [facility] NEUTROPHILS 50 % 09/16/2024 9:28 PM FRUIT VENDOR [facility] LYMPHOCYTES 35 % 09/16/2024 9:28 PM FRUIT VENDOR [facility] MONOCYTES 11 % 09/16/2024 9:28 PM FRUIT VENDOR [facility] EOSINOPHILS 4 % 09/16/2024 9:28 PM FRUIT VENDOR [facility] BASOPHILS 1 % 09/16/2024 9:28 PM FRUIT VENDOR [facility] IMMATURE GRANULOCYTES 0 % 09/16/2024 9:28 PM FRUIT VENDOR [facility] NEUTROPHIL ABSOLUTE 2.66 1.90 - 7.00 K/uL 09/16/2024 9:28 PM FRUIT VENDOR [facility] LYMPHOCYTE ABSOLUTE 1.89 0.70 - 4.50 K/uL 09/16/2024 9:28 PM FRUIT VENDOR [facility] MONOCYTE ABSOLUTE 0.58 0.10 - 1.30 K/uL 09/16/2024 9:28 PM FRUIT VENDOR [facility] EOSINOPHIL ABSOLUTE 0.21 0.00 - 0.70 K/uL 09/16/2024 9:28 PM FRUIT VENDOR [facility] BASOPHILS ABSOLUTE 0.03 0.00 - 0.20 K/uL 09/16/2024 9:28 PM FRUIT VENDOR [facility] IMMATURE GRANULOCYTES ABSOLUTE 0.00 0.00 - 0.03 K/uL 09/16/2024 9:28 PM FRUIT VENDOR [facility] Blood Venipuncture / Unknown 09/16/2024 9:13 PM FRUIT VENDOR 09/16/2024 9:20 PM FRUIT VENDOR us Nolan Lee MD HEMATOLOGY ORDERABLES Final Result [facility] CLIA# [id number] [place] [address] * (ABNORMAL) COMPREHENSIVE METABOLIC PANEL (09/16/2024 9:13 PM FRUIT VENDOR) Only the most recent of6 resultswithin the time period is included. SODIUM 138 136 - 145 mmol/L 09/16/2024 9:58 PM [facility] POTASSIUM 4.2 3.4 - 5.1 mmol/L 09/16/2024 9:58 PM [facility] CHLORIDE 104 98 - 107 mmol/L 09/16/2024 9:58 PM [facility] CO2 25 22 - 29 mmol/L 09/16/2024 9:58 PM [facility] CALCIUM 8.8 8.6 - 10.4 mg/dL 09/16/2024 9:58 PM [facility] BUN 26(H) 6 - 20 mg/dL 09/16/2024 9:58 PM [facility] CREATININE 1.06 0.67 - 1.17 mg/dL 09/16/2024 9:58 PM [facility] GLUCOSE 75 74 - 99 mg/dL 09/16/2024 9:58 PM [facility] TOTAL PROTEIN 6.5 6.3 - 8.7 g/dL 09/16/2024 9:58 PM [facility] ALBUMIN 3.7 3.5 - 5.2 g/dL 09/16/2024 9:58 PM [facility] BILIRUBIN TOTAL 0.3 0.3 - 1.2 mg/dL 09/16/2024 9:58 PM [facility] ALKALINE PHOSPHATASE 81 40 - 150 U/L 09/16/2024 9:58 PM [facility] AST 45(H) 0 - 41 U/L 09/16/2024 9:58 PM [facility] ALT 49(H) 0 - 41 U/L 09/16/2024 9:58 PM FRUIT VENDOR [facility] GFR >60 >=60 mL/min/1.7 3 sq meter 09/16/2024 9:58 PM FRUIT VENDOR [facility] Comment:eGFR calculated with 2020 CKD-EPI equation. Vegetarian diet, extremely high or low muscle mass, and may affect results. Cystatin C with Glomerular Filtration Rate is a suitable alternative for these patients. ANION GAP 9 8 - 16 mmol/L 09/16/2024 9:58 PM FRUIT VENDOR [facility] Blood Venipuncture / Unknown 09/16/2024 9:13 PM FRUIT VENDOR 09/16/2024 9:20 PM FRUIT VENDOR us Nolan Lee MD CHEMISTRY ORDERABLES Final R esult Performing Organization Address City/State/[facility] Co de Phone Number [facility] CLIA# [id number] [address] [place] [address] * EKG 12-LEAD (09/16/2024 9:02 PM FRUIT VENDOR) Only the most recent of2 resultswithin the time period is included. 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 : 1980 Requested By: Order Number: [id number] Reading MD: Randy Haines Measurements Intervals Seaview Rate: 77 P: 76 NC: 168 QRS: 87 QRSD: 90 T: 46 QT: 372 QTc: 420 Interpretive Statements Normal sinus rhythm Normal ECG Compared to ECG 08/11/2024 21:58:55 No significant changes Electronically Signed On 09-16-2024 22:35:15 FRUIT VENDOR by Randy Haines Procedure Note Randy Haines MD - 09/16/2024 [facility] [address] [place] [address] Test Date: 2024-09-16 Pat Name: LISA MCCOY Department: 94 Room: Gender: Male 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 : 1980 Requested By: Order Number: [id number] Reading MD: Randy Haines Measurements Intervals Seaview Rate: 77 P: 76 NC: 168 QRS: 87 QRSD: 90 T: 46 QT: 372 QTc: 420 Interpretive Statements Normal sinus rhythm Normal ECG Compared to ECG 08/11/2024 21:58:55 No significant changes Electronically Signed On 09-16-2024 22:35:15 FRUIT VENDOR by Randy Haines us Nolan Lee MD ECG ORDERABLES Final Result INTERFACE SYSTEM Refer to clinic/hospital department * POC INFLUENZA A AND B ANTIGEN (09/15/2024 6:16 PM FRUIT VENDOR) Pathologist [facility] INFLUENZA A AG POC Negative/Not Detected Negative/No t Detected [facility] INFLUENZA B AG POC Negative/Not Detected Negative/No t Detected [facility] INTERNAL KIT QC POC Pass Pass [facility] KIT LOT NUMBER POC [id number] [facility] KIT EXP DATE POC 05/01/2026 [facility] READ METHOD POC Visual [facility] Upper Respiratory ANTERIOR NARES SWAB / Unknown 09/15/2024 6:16 PM FRUIT VENDOR us Kay Melo CYBER LEGAL ADVISOR POINT OF CARE TESTING F inal Result [facility] CLIA# [id number] [place] [address] * (ABNORMAL) POC GLUCOSE (09/14/2024 11:51 PM FRUIT VENDOR) GLUCOSE POC 119(H) 74 - 99 mg/dL 09/14/2024 11:51 PM FRUIT VENDOR [facility] SPECIMEN SOURCE, GLUCOSE POC Whole Blood 09/14/2024 11:51 PM FRUIT VENDOR [facility] Blood, whole 09/14/2024 11:5 1 PM FRUIT VENDOR 09/14/2024 11:58 PM FRUIT VENDOR us Interface Provider Poct POINT OF CARE TESTING Fi nal Result [facility] CLIA# [id number] [address] [facility] [place] [address] * XR CHEST PA AND LATERAL 2 VW (09/09/2024 1:17 AM FRUIT VENDOR) Only the most recent of3 resultswithin the time period is included. Anatomical Region Laterality Modality Chest Computed Radiogr aphy 09/09/2024 1:18 AM FRUIT VENDOR Impressions 09/09/2024 7:11 AM FRUIT VENDOR IMPRESSION: Negative chest. DICTATION LOCATION: Location 1 [facility] Narrative 09/09/2024 7:11 AM FRUIT VENDOR XR CHEST PA AND LATERAL 2 VW [...] IMPRESSION: Negative chest. DICTATION LOCATION: Location 1 [facility] Mark Andrews DO DIAGNOSTIC IMAGING ORDERABLES Final Result * RESPIRATORY PATHOGEN PCR PANEL (09/08/2024 11:43 PM FRUIT VENDOR) Respiratory Pathogen PCR Panel NOT DETECTED No respiratory pathogen nucleic acids detected. 09/09/2024 1:04 AM FRUIT VENDOR [facility] COVID-19 PCR NOT DETECTED Not Detected 09/09/2024 1:04 AM FRUIT VENDOR [facility] Upper Respiratory ENTIRE NASOPHARYNX / Unknown Collection / Unknown 09/08/2024 11:43 PM FRUIT VENDOR 09/08/2024 11:49 PM FRUIT VENDOR Narrative [facility] - 09/09/2024 1:04 AM FRUIT VENDOR The Film Array Respiratory Panel (RP2.1) is [...] ORDERAB LES Final Result Performing Organization Address City/State/[facility] Co de Phone Number [facility]# [id number] [address] [place] [address] * CT CHEST ABDOMEN PELVIS W CONT (08/21/2024 6:55 PM FRUIT VENDOR) Anatomical Region Laterality Modality Chest Computed Tomogra phy 08/21/2024 6:41 PM FRUIT VENDOR Impressions 08/21/2024 7:15 PM FRUIT VENDOR IMPRESSION: 1. No acute findings in the chest/abdomen/pelvis. Dictation location: Location 4 Narrative 08/21/2024 7:[address] CHEST ABDOMEN PELVIS W CONT TECHNIQUE: [...] Result * POC CREATININE (08/21/2024 4:35 PM FRUIT VENDOR) CREATININE POC 1.10 0.70 - 1.20 mg/dL 08/21/2024 4:35 PM FRUIT VENDOR [facility] My Dentist [facility] GFR POC >60 >=60 mL/min/1.7 3 sq meter 08/21/2024 4:35 PM FRUIT VENDOR [facility] My Dentist [facility] Comment:eGFR calculated with 2020 CKD-EPI equation. Vegetarian diet, extremely high or low muscle mass, and may affect results. Cystatin C with Glomerular Filtration Rate is a suitable alternative for these patients. Blood, whole 08/21/2024 4:35 PM FRUIT VENDOR 08/21/2024 4:39 PM FRUIT VENDOR Carmelo Snow MD POINT OF CARE TESTING Final R esult Performing Organization Address [facility]/ZIP Co de Phone Number [facility] CLIA# [id number] [address] [place] [address] * C-REACTIVE PROTEIN (08/21/2024 4:27 PM FRUIT VENDOR) Pathologist [facility] CRP <3.0 <5.0 mg/L 08/21/2024 5:33 PM [facility] Blood Venipuncture / Unknown 08/21/2024 4:27 PM FRUIT VENDOR 08/21/2024 4:39 PM FRUIT VENDOR Carmelo Snow MD CHEMISTRY ORDERABLES Final Re sult Performing Organization Address [facility]/ZIP Co de Phone Number [facility] CLIA# [id number] [address] [place] [address] * INFLUENZA A/B, RSV AND COVID-19 PCR PANEL (08/21/2024 3:11 PM FRUIT VENDOR) Pathologist [facility] COVID-19 PCR NOT DETECTED Not Detected 08/21/19 4:37 PM [facility] Influenza A by PCR NOT DETECTED Not Detected 08/21/2024 4:37 PM [facility] Influenza B by PCR NOT DETECTED Not Detected 08/21/2024 4:37 PM [facility] RSV by PCR NOT DETECTED Not Detected 08/21/2024 4:37 PM [facility] Upper Respiratory ENTIRE NASOPHARYNX / Unknown Collection / Unknown 08/21/2024 3:11 PM FRUIT VENDOR 08/21/2024 3:22 PM FRUIT VENDOR Narrative [facility] - 08/21/2024 4:37 PM FRUIT VENDOR This test has been authorized by the [...] MICROBIOLOGY - GENERAL ORDFlorencio PRITCHARD Final Result [facility]# [id number] [address] [facility] [place] [address] * TSH (08/21/2024 2:08 PM FRUIT VENDOR) Pathologist [facility] TSH 1.85 0.40 - 4.50 mIU/L [facility] Comment: FASTING:NO FASTING: NO Test Performed at: [place] [address] [place] [address] [facility] [employer] Blood 08/21/2024 2:08 PM FRUIT VENDOR 08/21/2024 2:08 PM FRUIT VENDOR Jerel Camejo MD CHEMISTRY ORDERABLES Final Resul t Performing Organization Address City/[facility]/ZIP [facility] [place] Phone Number [facility] [phone] [facility] [address] [place] [address] * HEMOGLOBIN A1C (08/21/2024 2:08 PM FRUIT VENDOR) Pathologist [facility] HEMOGLOBIN A1C 5.1 <5.7 % of total Hgb [facility] Comment: For the purpose of screening for the presence of diabetes: <5.7% Consistent with the absence of diabetes 5.7-6.4% Consistent with increased risk for diabetes (prediabetes) > or =6.5% Consistent with diabetes This assay result is consistent with a decreased risk of diabetes. Currently, no consensus exists regarding use of hemoglobin A1c for diagnosis of diabetes in children. According to [place] [employer] (ADA) guidelines, hemoglobin A1c <7.0% represents optimal control in non- diabetic patients. Different metrics may apply to specific patient populations. Standards of Medical Care in Diabetes(ADA). ESTIMATED AVERAGE GLUCOSE (MG/DL) 100 mg/dL [facility] [place] ESTIMATED AVERAGE GLUCOSE (MMOL/L) 5.5 mmol/L [facility] [place] Comment: FASTING:NO FASTING: NO Test Performed at: [facility] [address] [address] [id number] [place] [facility] Vo Blood 08/21/2024 2:08 PM FRUIT VENDOR 08/21/2024 2:08 PM FRUIT VENDOR us Jerel Camejo MD CHEMISTRY ORDERABLES Final Resul t [facility] [phone] [facility] [address] [address] [place] [phone] * LIPID PANEL (08/21/2024 2:08 PM FRUIT VENDOR) CHOLESTEROL 149 <200 mg/dL [facility] [place] HDL 67 > OR = 40 mg/dL [facility] [place] TRIGLYCERIDE 57 <150 mg/dL [facility] [place] LDL CALCULATED 69 mg/dL (calc) [facility] [place] Comment: Reference range: <100 Desirable range <100 mg/dL for primary prevention; <70 mg/dL for patients with CHD or diabetic patients with > or = 2 CHD risk factors. LDL-C is now calculated using the Fernando-Maritza calculation, which is a validated novel method providing better accuracy than the Friedewald equation in the estimation of LDL-C. Fernando SS et al. GURDEEP. 2013;310(19): 5757-3270 (http://education.BioSignia/faq/OIU589) CHOL/HDL RATIO 2.2 <5.0 (calc) [facility] [place] NON-HDL CHOLESTEROL 82 <130 mg/dL (calc) [facility] [place] Comment: For patients with diabetes plus 1 major ASCVD risk factor, treating to a non-HDL-C goal of <100 mg/dL (LDL-C of <70 mg/dL) is considered a therapeutic option. Test Performed at: [place] [address] [place] [address] [place] [facility] Blood 08/21/2024 2:08 PM FRUIT VENDOR 08/21/2024 2:08 PM FRUIT VENDOR Jerel Camejo MD CHEMISTRY ORDERABLES Final Resul t [facility] [phone] [facility] [address] [place] [address] * CT HEAD WO CONTRAST (08/11/2024 10:18 PM FRUIT VENDOR) Anatomical Region Laterality Modality Head Computed Tomogra phy 08/11/2024 10:1 8 PM FRUIT VENDOR Impressions 08/11/2024 10:25 PM FRUIT VENDOR IMPRESSION: 1. No acute intracranial findings. Dictation location: Location 4 Narrative 08/11/2024 10:25 PM FRUIT VENDOR Indication: Syncope Study: CT head without IV [...] intracranial findings. Dictation location: Location 4 Result [facility] Nasrin White MD CT ORDERABLES Final Result from Last 3 [place] [address] [facility] [place] [address] [facility] [employer] Care Teams Retail Zone Specialist Relationship Specialty [place] [address] [facility] [address] Kyler Holland [address] [address] PCP - General Family Practice 12/01/22
--- OUTSIDE RECORDS SUMMARY | 2024-09-17 21:24 | XMS_ITS | Clinical Summary ---
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
--- OUTSIDE RECORDS SUMMARY | 2024-09-17 21:24 | XMS_ITS | Encounter Summary ---
Author Organization [facility] Healthcare Address [address] [place] [address] Care Team Providers Care Cyber Operator Name Role Phone Elias Andrews MD Unavailable [phone] Jonah Otto MD Unavailable [phone] Jerel Camejo MD Primary Care Provider [phone] Reason for Visit * Reason Comments Leg Swelling Encounter Details Date Type Department Care Team (Late st Contact Info) Description 09/17/2024 11:38 AM LPN CMA - 09/17/2024 1:19 PM LPN CMA Emergency [facility] Emergency Department [address] [place] [id number] Chronic venous insufficiency (Primary Dx); Bilateral lower extremity edema Discharge Disposition: Discharge to home or self care Social History Tobacco Use Types Packs/Day Years Used Date Smoking Tobacco: Never Smokeless Tobacco: Never Alcohol Use Standard Drinks/Week Comments Not Currently 0 (1 standard drink = 0.6 oz pur e alcohol) [facility] Utilities Answer Date Recorded In the past 12 months has [employer] electric, gas, oil, or water company threatened [...] declined 08/14/2024 How often do you attend faith or anglican serv ices? Patient declined 08/14/2024 Do you belong to any clubs o r organizations such as faith groups, unions, fraternal or athletic groups, or [...] any time in the past 12 m [facility], were you homeless or living in a senior care (including now)? Patient declined 08/14/2024 Personal Safety Answer Date Recorded Have you ever been in or are you currently in a harmful physical or emotional relationship or is someone making you feel afraid or unsafe? Denies 09/17/2024 Sex and Gender Information Value Date Recorded Sex Assigned at Not on file Legal Sex Male 9:25 PM LPN CMA Gender Identity Not on file Sexual Orientation Straight 11/18/2022 7: 07 PM CDT documented as of this encounter Last Filed Vital Signs Vital Sign Reading Time Taken Comments Blood Pressure 109/73 09/17/2024 12:37 PM LPN CMA Pulse 69 09/17/2024 12:37 PM LPN CMA Temperature 36.5 C (97.7 F) 09/17/2024 10:26 AM LPN CMA Respiratory Rate 16 09/17/2024 12:37 PM LPN CMA Oxygen Saturation 98% 09/17/2024 12:37 PM LPN CMA Inhaled Oxygen Concentration - - Weight 74.8 kg (165 lb) 09/17/2024 10:26 AM LPN CMA Height 172.7 cm (5' 8 ) 09/17/2024 10:26 AM LPN CMA Body Mass Index 25.09 09/17/2024 10:26 AM LPN CMA documented in this encounter Discharge Instructions * Attachments The following attachments cannot be sent through Care Everywhere. * Lymphedema (Citizen [place]) * Leg Swelling in Both Legs ([place]) * Venous Insufficiency (Discharge Care) ([place]izen [place]) documented in this encounter Medications at Time [...] Saw his PCP for this, went to [facility] ED earlier this morning for same complaint where he had blood work with normal findings, discharged home with diagnosis of venous insufficiency. Alsoreceived Lasix and pain medication this morning at [facility]. Patient came to our ER because he was concerned that he might have a possible infection in his legs. WBC from [facility] ED today was 5.4. Denies chills, fever, [...] in his legs despite being evaluated at [facility] ED earlier today. WBC from [facility] ED today was 5.4. He received one [...] extremity edema Angelia Sutton PA 09/17/24 1514 CMA * Ijeoma Stock RN - 09/17/2024 10:25 AM CST Pt states he has had bilateral leg swelling since yesterday. Pt reports that he has a hx of leg swelling and was told it was either cellulitis or venous stasis. Denies SOB. Pt was seen at [facility] and had blood work done. dx with venous stasis CMA CMA documented in this encounter Plan of Treatment Not on file documented as of this encounter Visit Diagnoses Diagnosis Chronic venous insufficiency- Primary Unspecified venous (peripheral) insufficiency Bilateral lower extremity edema documented in this encounter Care Teams Cyber Operator Relationship Specialty [place] [id number] [place] [address] PCP - General Family Medicine 05/18/24 [place] [address] [address] [address] Referring Physician General Surgery 08/04/19 [place] [address] [address] Consulting Physician Gastroenterology 08/04/19 documented as of this encounter
--- OUTSIDE RECORDS SUMMARY | 2024-09-17 21:25 | XMS_ITS | Referral Summary ---
Author Organization [address] Address [address] [place] [phone] Care Team Providers Care Webfocus Developer Name Role Phone Elias Andrews MD Unavailable [phone] Jonah Otto MD Unavailable Jerel Camejo MD Primary Care Provider [phone] Encounters Date Type Department Care Team Description 09/17/2024 11:38 AM [facility] - 09/17/2024 1:19 PM [facility] Emergency [facility] Emergency Department [address] [place] [phone] Chronic venous insufficiency (Primary Dx); Bilateral lower extremity edema Discharge Disposition: Discharge to home or self care 09/14/2024 Telephone [facility] at [address] [phone] Lexi Garcia, DEVANG Med Refill 09/14/2024 12:10 AM [facility] [employer] - 09/14/2024 1:49 AM [facility] Emergency [facility] Emergency Department [address] [place] [phone] Brice Sepulveda MD Bilateral lower extremity edema (Primary Dx) Discharge Disposition: Discharge to home or self care 09/13/2024 9:20 PM [facility] [employer] - 09/13/2024 9:46 PM [facility] Emergency [facility] Emergency Department [address] [place] [phone] Michael Schrader MD Weakness (Primary Dx) Discharge Disposition: Discharge to home or self care 09/13/2024 2:46 AM [facility] [employer] - 09/13/2024 5:31 AM [facility] Emergency [facility] Emergency Department [address] [place] [phone] Katharine Polanco MD Chronic venous insufficiency (Primary Dx); Lower extremity edema Discharge Disposition: Discharge to home or self care 09/12/2024 9:22 PM [facility] - 09/12/2024 10:59 PM [facility] Emergency Department [address] [place] [address] Leg swelling (Primary Dx); Venous insufficiency; Venous stasis dermatitis Discharge Disposition: Discharge to home or self care 09/11/2024 10:35 PM [facility] - 09/12/2024 3:44 AM [facility] Emergency Department [address] [place] [phone] Salena Crawley MD Lower extremity edema (Primary Dx); Cellulitis of left lower extremity Discharge Disposition: Discharge to home or self care 09/11/2024 7:00 PM [employer] Office Visit [facility] at [address] [phone] Truman Gabriel, Symptom of leg swelling (Primary Dx) 09/10/2024 5:00 PM [employer] Office Visit [facility] Medical [facility] Con[facility]ient Care at [address] [phone] Jess Hobson NP Cellulitis of left lower extremity (Primary Dx); Left leg swelling 09/07/2024 10:55 AM [facility] [employer] - 09/07/2024 10:56 AM [facility] Emergency Department [address] [place] [address] Venous stasis dermatitis of both lower extremities (Primary Dx) Discharge Disposition: Discharge to home or self care 09/05/2024 8:08 PM [employer] - 09/05/2024 10:[address] [facility] Emergency Department [address] [place] [phone] Other chronic pain (Primary Dx); Bilateral lower extremity edema Discharge Disposition: Discharge to home or self care 09/05/2024 2:02 AM [facility] - 09/05/2024 3:14 AM [facility] Emergency Department [address] [place] [address] Marek Nelson MD PhD Chronic pain of left lower extremity (Primary Dx) Discharge Disposition: Discharge to home or self care 09/03/2024 7:07 PM [facility] [employer] - 09/03/2024 11:06 PM [facility] Emergency [facility] Emergency Department [address] [place] [phone] Cellulitis of left lower extremity (Primary Dx) Discharge Disposition: Discharge to home or self care 09/02/2024 8:24 AM [facility] - 09/02/2024 11:59 PM [facility] [address] [place] [address] Discharge Disposition: Discharge to home or self care 09/02/2024 3:25 AM [facility] [employer] - 09/02/2024 3:41 AM [facility] Emergency Department [address] [place] [address] Rachele Guerra MD Sprain of right ankle, unspecified ligament, initial encounter (Primary Dx) Discharge Disposition: Discharge to home or self care 09/01/2024 8:06 AM [facility] [employer] - 09/01/2024 9:39 AM [facility] Emergency Department [address] [place] [address] Jair Armendariz MD Sprain of right ankle, unspecified ligament, initial encounter (Primary Dx) Discharge Disposition: Discharge to home or self care 08/23/2024 9:27 PM [facility] [employer] - 08/23/2024 10:[address] [facility] Emergency Department [address] [place] [phone] Leg swelling (Primary Dx); Cellulitis of left lower extremity Discharge Disposition: Discharge to home or self care 08/23/2024 1:41 AM [facility] [employer] - 08/23/2024 9:16 AM [facility] Emergency [facility] Emergency Department [address] [place] [phone] Salena Crawley MD Li, Alex, MD Schneider, John Elliott, MD Leg swelling (Primary Dx); Cellulitis of left lower extremity; Failure of outpatient treatment Discharge Disposition: Discharge to home or self care 08/20/2024 11:11 PM [facility] [employer] - 08/21/2024 1:30 AM [facility] Emergency [facility] Emergency Department [address] [place] [address] Dependent edema (Primary Dx) Discharge Disposition: Discharge to home or self care 08/20/2024 9:06 AM [facility] - 08/20/2024 11:08 AM [facility] Emergency Department [address] [place] [phone] Fei Murray MD Upper respiratory tract infection, unspecified type (Primary Dx); Peripheral edema Discharge Disposition: Discharge to home or self care 08/20/2024 2:24 AM [facility] - 08/20/2024 4:35 AM [facility] Emergency Department [address] [place] [phone] Discharge Disposition: Left without being seen 08/18/2024 5:58 AM [facility] - 08/18/2024 7:26 AM [facility] Emergency [facility] Emergency Department [address] [place] [phone] Lorenzo Peña MD Peripheral edema (Primary Dx) Discharge Disposition: Discharge to home or self care 08/17/2024 3:00 PM [facility] Diagnostic [facility] Orthopaedic Surgery [facility] Advanced Medicine 6th [place] [address] [place] [phone] Luciano Nelson MD Encounter for examination of normal volunteer in research study 08/15/2024 12:23 AM [facility] - 08/15/2024 1:52 AM [facility] Emergency [facility] Emergency Department [address] [place] [address] [place] (Primary Dx); Swelling Discharge Disposition: Discharge to home or self care 08/12/2024 8:23 PM [employer] - 08/14/2024 1:56 PM [facility] Hospital Encounter [facility] [address] [place] [address] Batsheva Portillo MD Li, MD Lucille Garcia Alex, MD COVID-19 (Primary Dx); Recurrent syncope; Chest pain, unspecified type; Anemia, unspecified type; Elevated AST (SGOT); Elevated ALT measurement; Nonintractable headache, unspecified chronicity pattern, unspecified headache type Discharge Disposition: Discharge to home or self care 08/11/2024 3:49 AM [employer] - 08/11/2024 4:35 AM [facility] Emergency [facility] Emergency Department [address] [place] [phone] Abdiel Hawkins MD Coronavirus infection (Primary Dx); Lightheadedness Discharge Disposition: Discharge to home or self care 08/08/2024 9:58 PM [employer] - 08/08/2024 11:12 PM [facility] Emergency [facility] Emergency Department [address] [place] [phone] Karlo Gatica MD COVID (Primary Dx); Dehydration; Syncope, unspecified syncope type Discharge Disposition: Discharge to home or self care 08/07/2024 [facility] Eligibility Review [facility] Community Health Worker [address] [place] [phone] Darlene Zurita MT 08/06/2024 9:50 AM [employer] - 08/06/2024 12:23 PM [facility] Emergency [facility] Emergency Department [address] [place] [phone] Jassi Daniels MD Coronavirus infection (Primary Dx) Discharge Disposition: Discharge to home or self care 08/02/2024 12:46 PM [employer] - 08/02/2024 1:16 PM [facility] Emergency [facility] Emergency Department [address] [place] [phone] Gee Moran MD Chronic right shoulder pain (Primary Dx) Discharge Disposition: Discharge to home or self care 08/01/2024 2:00 AM [employer] - 08/01/2024 3:17 AM [facility] Emergency [facility] Emergency Department [address] [place] [phone] Chronic right shoulder pain (Primary Dx); Encounter for medication refill Discharge Disposition: Discharge to home or self care 07/29/2024 9:38 PM [facility] - 07/29/2024 11:38 PM [facility] Emergency [facility] Emergency Department [address] [place] [phone] Cindy Hendricks MD Injury of right rotator cuff, subsequent encounter (Primary Dx) Discharge Disposition: Discharge to home or self care 07/24/2024 Documentation [facility] [address] [place] [address] Health [address] [place] [phone] Cherie Ramirez [facility] Social Work Services 07/24/2024 1:00 PM [facility] Office [facility] [address] [place] [address] 4th Floor [address] [place] [phone] Right anterior shoulder pain (Primary Dx) 07/19/2024 Documentation [facility] [address] [place] [address] [address] [place] [phone] Cherie Ramirez, [facility] Social Work Services 06/26/2024 Orders Only [facility] Orthopaedic Surgery [address] [facility] Advanced Medicine 6th [place] [address] [place] [address] Michael Corona MD Encounter for examination of [...] Insurance Qualify for In Clinic PT? 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 Assessment & Plan (08/09/2019 7:07 PM [employer]KER): Patient presents with complaints of ongoing abdominal [...] 07/29/2019 Assessment & Plan (08/10/2019 10:48 AM [employer]): Ongoing nausea post cholecystectomy w/o vomiting. Tolerating PO, no emesis overnight - prn zofran - ADAT Assessment & Plan (08/09/2019 7:17 PM [employer]): Ongoing nausea post cholecystectomy w/o vomiting. - prn zofran - ADAT Calculus of gallbladder 07/29/2019 Dizziness 07/29/2019 Assessment & Plan (08/10/2019 10:59 AM [employer]): Patient describes dizziness related to uncontrolled abdominal pain. He endorses pain starts in RQ and moves to head . He then becomes diaphoretic, nauseous. Improved this AM. Likely vasovagal, hemodynamically stable. - discussed proper hydration and symptom management Assessment & Plan (08/09/2019 7:16 PM [employer]): Patient describes dizziness related to uncontrolled abdominal pain. He endorses pain starts in RQ and moves to head . He then becomes diaphoretic, nauseous. - likely vasovagal, s/p 1 L LR in ED. CTM Intractable right upper quadrant abdominal pain 07/29/2019 Overview (08/01/2019): Added automatically from request for surgery [id number] Adjustment disorder with depressed mood in remis [...] drink = 0.6 oz pur e alcohol) [facility] Utilities Answer Date Recorded In the past [...] declined 08/14/2024 How often do you attend islam or pentecostal serv ices? Patient declined 08/14/2024 Do you belong to any clubs o r organizations such as islam groups, unions, fraternal or athletic groups, or [...] any time in the past [address] [facility], were you homeless or living in a group home (including now)? Patient declined 08/14/2024 Personal Safety Answer Date Recorded Have you ever been in or are you currently in a harmful physical or emotional relationship or is someone making you feel afraid or unsafe? Denies 09/17/2024 Sex and Gender Information Value Date Recorded Sex Assigned at Not on file Legal Sex Male 9:25 PM [employer] Gender Identity Not on file Sexual Orientation Straight 11/18/2022 7: 07 PM CDT Last Filed Vital Signs Vital Sign Reading Time Taken Comments Blood Pressure 109/73 09/17/2024 12:37 PM [employer] Pulse 69 09/17/2024 12:37 PM [employer] Temperature 36.5 C (97.7 F) 09/17/2024 10:26 AM [employer] Respiratory Rate 16 09/17/2024 12:37 PM [employer] Oxygen Saturation 98% 09/17/2024 12:37 PM [employer] Inhaled Oxygen Concentration - - Weight 74.8 kg (165 lb) 09/17/2024 10:26 AM [employer] Height 172.7 cm (5' 8 ) 09/17/2024 10:26 AM [employer] Body Mass Index 25.09 09/17/2024 10:26 AM [employer] Plan of Treatment Not on file Procedures Procedure Name Priority Date/Time Associated Diagnosis Comments EGFR STAT 09/11/2024 9:10 PM [employer] DIFFERENTIAL AUTO STAT 09/11/2024 9:1 0 PM [employer] PRO B-TYPE NATRIURETIC PEPTIDE STAT 09/11/2024 9:10 PM [employer] COMPREHENSIVE METABOLIC PANEL STAT 09/11/2024 9:10 PM [employer] CBC WITH AUTO DIFFERENTIAL STAT 09/11/2024 9:10 PM [employer] EGFR STAT 09/07/2024 2:59 AM [employer] DIFFERENTIAL AUTO STAT 09/07/2024 2:5 9 AM [employer] BASIC METABOLIC PANEL STAT 09/07/2024 2:59 AM [employer] CBC WITH AUTO DIFFERENTIAL STAT 09/07/2024 2:59 AM [employer] US VEIN DUPLEX LOWER EXTREMITY BILATERAL COMPLETE ED 09/03/2024 7:37 PM [employer] MRI SHOULDER RIGHT WO CONTRAST Schedule Routine, Read Routine (OP Routine) 09/02/2024 9:06 AM [employer] Right anterior shoulder pain XR ANKLE RIGHT 2 VIEWS ED 09/01/2024 9:33 PM [employer] XR TIBIA FIBULA RIGHT2 VIEWS ED 09/01/2024 8:37 AM [employer] XR ANKLE RIGHT 3 OR MORE VIEWS ED 08/31/2024 10:35 PM [employer] XR FOOT RIGHT 3 OR MORE VIEWS ED 08/31/2024 10:34 PM [employer] EGFR STAT 08/23/2024 2:33 AM [employer] DIFFERENTIAL AUTO STAT 08/23/2024 2:3 3 AM [employer] PRO B-TYPE NATRIURETIC PEPTIDE STAT 08/23/2024 2:33 AM [employer] COMPREHENSIVE METABOLIC PANEL STAT 08/23/2024 2:33 AM [employer] CBC WITH AUTO DIFFERENTIAL STAT 08/23/2024 2:33 AM [employer] SEPSIS LACTATE WITH REFLEX Routine 08/23/2024 2:33 AM [employer] BLOOD CULTURE Routine 08/23/2024 2:33 AM [employer] BLOOD CULTURE Routine 08/23/2024 2:33 AM [employer] ECG 12-LEAD STAT 08/23/2024 2:32 AM [employer] EGFR STAT 08/21/2024 12:35 AM [employer] DIFFERENTIAL AUTO STAT 08/21/2024 12: 35 AM [employer] CRP (ACUTE PHASE) STAT 08/21/2024 12: 35 AM [employer] ERYTHROCYTE SEDIMENTATION RATE STAT 08/21/2024 12:35 AM [employer] BASIC METABOLIC PANEL STAT 08/21/2024 12:35 AM [employer] CBC WITH AUTO DIFFERENTIAL STAT 08/21/2024 12:35 AM [employer] STREPTOCOCCUS GROUP A PCR STAT 08/20/2024 9:19 AM [employer] RESPIRATORY PATHOGEN PANEL Routine 08/20/2024 9:19 AM [employer] D-DIMER, QUANTITATIVE STAT 08/15/2024 1:08 AM [employer] PRO B-TYPE NATRIURETIC PEPTIDE STAT 08/14/2024 9:59 PM [employer] EGFR STAT 08/14/2024 9:59 PM [employer] DIFFERENTIAL AUTO STAT 08/14/2024 9:5 9 PM [employer] LIPASE STAT 08/14/2024 9:59 PM [employer] COMPREHENSIVE METABOLIC PANEL STAT 08/14/2024 9:59 PM [employer] CBC WITH AUTO DIFFERENTIAL STAT 08/14/2024 9:59 PM [employer] TRANSTHORACIC ECHO (TTE) COMPLETE W DOPPLER/CF WO CONTRAST Routine 08/14/2024 11:39 AM [employer] HEPATIC FUNCTION PANEL Routine 08/13/2024 5:30 AM [employer] EGFR Routine 08/13/2024 5:30 AM [employer] CBC WITHOUT DIFFERENTIAL Routine 08/13/2024 5:30 AM [employer] PHOSPHORUS Routine 08/13/2024 5:30 AM [employer] MAGNESIUM Routine 08/13/2024 5:30 AM [employer] BASIC METABOLIC PANEL Routine 08/13/2024 5:30 AM [employer] FERRITIN Routine 08/13/2024 5:30 AM [employer] DRUGS OF ABUSE SCREEN, URINE WITH REFLEX CONFIRMATION Routine 08/13/2024 12:15 AM [employer] URINALYSIS AND REFLEX TO MICROSCOPIC AND CULTURE STAT 08/13/2024 12:15 [address] CHEST PE W CONTRAST ED 08/12/2024 11:48 PM [employer] US VEIN DUPLEX LOWER EXTREMITY BILATERAL COMPLETE ED 08/12/2024 11:46 PM [employer] US RUQ ED 08/12/2024 11:38 PM [employer] ADD ON LAB TEST Add-On 08/12/2024 10:29 [address] HEAD AND CERVICAL SPINE WO CONTRAST ED 08/12/2024 10:20 PM [employer] D-DIMER, QUANTITATIVE STAT 08/12/2024 10:05 PM [employer] PROTIME-INR STAT 08/12/2024 10:05 PM [employer] ADD ON LAB TEST Add-On 08/12/2024 9:53 PM [employer] ADD ON LAB TEST Add-On 08/12/2024 9:53 PM [employer] ADD ON LAB TEST Add-On 08/12/2024 9:53 PM [employer] ADD ON LAB TEST Add-On 08/12/2024 9:53 PM [employer] ADD ON LAB TEST Add-On 08/12/2024 9:53 PM [employer] ADD ON LAB TEST Add-On 08/12/2024 9:53 PM [employer] ADD ON LAB TEST Add-On 08/12/2024 9:53 PM [employer] ETHANOL STAT 08/12/2024 9:52 PM [employer] TROPONIN T HIGH-SENSITIVITY 2-HOUR Timed 08/12/2024 9:52 PM [employer] ACETAMINOPHEN LEVEL STAT 08/12/2024 9 :13 PM [employer] HEPATITIS PANEL, ACUTE STAT 08/12/2024 9:13 PM [employer] PRO B-TYPE NATRIURETIC PEPTIDE STAT 08/12/2024 8:08 PM [employer] THYROID FUNCTION CASCADE STAT 08/12/2024 8:08 PM [employer] FOLATE STAT 08/12/2024 8:08 PM [employer] IRON PROFILE W/ IBC STAT 08/12/2024 8 :08 PM [employer] VITAMIN B12 STAT 08/12/2024 8:08 PM [employer] MAGNESIUM STAT 08/12/2024 8:08 PM [employer] PHOSPHORUS STAT 08/12/2024 8:08 PM [employer] EGFR STAT 08/12/2024 8:08 PM [employer] DIFFERENTIAL AUTO STAT 08/12/2024 8:0 8 PM [employer] TROPONIN T HIGH-SENSITIVITY SERIES (BASELINE, 2HR, 4HR, 6HR) STAT 08/12/2024 8:08 PM [employer] COMPREHENSIVE METABOLIC PANEL STAT 08/12/2024 8:08 PM [employer] CBC WITH AUTO DIFFERENTIAL STAT 08/12/2024 8:08 PM [employer] XR CHEST PA LATERAL 2 VIEWS ED 08/12/2024 7:27 PM [employer] ECG 12-LEAD STAT 08/12/2024 6:48 PM [employer] XR CHEST PA LATERAL 2 VIEWS ED 08/11/2024 2:02 AM [employer] ECG 12-LEAD STAT 08/11/2024 1:43 AM [employer] XR CHEST PA LATERAL 2 VIEWS ED 08/08/2024 10:42 [address] HEAD WO CONTRAST ED 08/08/2024 1 0:34 PM [employer] ECG 12-LEAD STAT 08/08/2024 8:56 PM [employer] RESPIRATORY PATHOGEN PANEL Routine 08/06/2024 9:59 AM [employer] from Last 3 Months Results * eGFR (09/11/2024 9:10 PM [employer]KER) eGFR >90 >=60 mL/min/1. 73 m2 Comment: [...] last reviewed 2021. Blood 09/11/2024 9:10 PM [employer] 09/11/2024 9:30 PM [employer] us Salena Crawley MD LAB BLOOD ORDERABLES Fin al Result [facility] [address] [place] [address] * Differential, auto (09/11/2024 9:10 PM [employer]) Neutrophil abs 3.8 1.5 - 6.5 K/cumm Imm gran abs 0.0 0.0 - 0.1 K/cumm [facility] Lymphocyte abs 1.1 0.8 - 3.3 K/cumm [facility] Monocyte abs 0.5 0.2 - 0.8 K/cumm [facility] Eosinophil abs 0.2 0.0 - 0.5 K/cumm [facility] Basophil abs 0.0 0.0 - 0.1 K/cumm [facility] Neutrophil pct 67.2 % [facility] Comment: Interpretive Data Percent cell count reference ranges are not reported, since discordance with absolute values may lead to misinterpretation of CBC data. Current Interpretive Data was last revised on 2017. Imm gran pct 0.4 % [facility] Comment: Interpretive Data Percent cell count reference ranges are not reported, since discordance with absolute values may lead to misinterpretation of CBC data. Current Interpretive Data was last revised on 2017. Lymphocyte pct 20.1 % [facility] Comment: Interpretive Data Percent cell count reference ranges are not reported, since discordance with absolute values may lead to misinterpretation of CBC data. Current Interpretive Data was last revised on 2017. Monocyte pct 8.6 % [facility] Comment: Interpretive Data Percent cell count reference ranges are not reported, since discordance with absolute values may lead to misinterpretation of CBC data. Current Interpretive Data was last revised on 2017. Eosinophil pct 3.2 % [facility] Comment: Interpretive Data Percent cell count reference ranges are not reported, since discordance with absolute values may lead to misinterpretation of CBC data. Current Interpretive Data was last revised on 2017. Basophil pct 0.5 % [facility] Comment: Interpretive Data Percent cell count reference ranges are not reported, since discordance with absolute values may lead to misinterpretation of CBC data. Current Interpretive Data was last revised on 2017. Blood 09/11/2024 9:10 PM [employer] 09/11/2024 9:30 PM [employer] us Salena Crawley MD LAB BLOOD ORDERABLES Fin al Result [facility] [address] Department of [employer] [place] [address] * Pro B-type natriuretic peptide (09/11/2024 9:10 PM [employer]) [facility] NT-proBNP <36 <=300 pg/mL Comment: Interpretive [...] Revised Date: 2018. Blood 09/11/2024 9:10 PM [employer] 09/11/2024 9:30 PM [employer] us Salena Crawley MD LAB BLOOD ORDERABLES Fin al Result [facility] [address] Department [place] [address] * CBC with auto differential (09/11/2024 9:10 PM [employer]) [facility] WBC 5.7 3.8 - 9.9 K/cumm Hgb 13.1 13.0 - 17.5 g/dL [facility] Hct 40.0 38.9 - 50.3 % [facility] Plt 184 150 - 400 K/cumm [facility] MPV 10.6 9.1 - 12.3 fL [facility] RBC 4.43 4.30 - 5.80 M/cumm [facility] MCV 90.3 81.3 - 96.4 fL [facility] MCH 29.6 27.1 - 33.3 pg [facility] MCHC 32.8 32.3 - 35.7 g/dL [facility] RDW CV 12.7 11.1 - 14.9 % [facility] RDW SD 41.7 35.7 - 48.1 fL [facility] NRBC abs 0.00 0.00 - 0.01 K/cumm [facility] Blood 09/11/2024 9:10 PM [employer] 09/11/2024 9:30 PM [employer] us Salena Crawley MD LAB BLOOD ORDERABLES Fin al Result [facility] [address] Department [place] [address] * (ABNORMAL) Comprehensive metabolic panel (09/11/2024 9:10 PM [employer]) [facility] Sodium 142 135 - 145 mmol/L Potassium, pl 4.3 3.3 - 4.9 mmol/L [facility] Chloride 101 97 - 110 mmol/L [facility] CO2 28 22 - 32 mmol/L [facility] Anion gap 13 2 - 15 mmol/L [facility] BUN 28(H) 6 - 25 mg/dL [facility] Creatinine 0.89 0.80 - 1.30 mg/dL [facility] Glucose 113 70 - 199 mg/dL [facility] Comment: Interpretive Data Fasting glucose [...] 2022. Calcium 9.2 8.5 - 10.3 mg/dL [facility] Bilirubin, total 0.8 0.1 - 1.2 mg/dL [facility] Protein, pl 6.7 6.5 - 8.5 g/dL [facility] Albumin 4.0 3.5 - 5.0 g/dL [facility] Alk phos 79 40 - 130 Units/L [facility] ALT 62(H) 7 - 55 Units/L [facility] AST 40 10 - 50 Units/L [facility] Comment:Slightly Hemolyzed S pecimen Blood 09/11/2024 9:10 PM [employer] 09/11/2024 9:30 PM [employer] us Salena Crawley MD LAB BLOOD ORDERABLES Fin al Result [facility] [address] [place] [address] * eGFR (09/07/2024 2:59 AM [employer]) eGFR >90 >=60 mL/min/1. 73 m2 Comment: [...] last reviewed 2021. Blood 09/07/2024 2:59 AM [employer] 09/07/2024 3:02 AM [employer] us Jair Armendariz MD LAB BLOOD ORDERABLES Final Result [address] Department of [place] [address] * Differential, auto (09/07/2024 2:59 AM [employer]) Neutrophil abs 3.0 1.5 - 6.5 K/cumm Imm gran abs 0.0 0.0 - 0.1 K/cumm [facility] Lymphocyte abs 2.1 0.8 - 3.3 K/cumm [facility] Monocyte abs 0.4 0.2 - 0.8 K/cumm [facility] Eosinophil abs 0.2 0.0 - 0.5 K/cumm [facility] Basophil abs 0.0 0.0 - 0.1 K/cumm [facility] Neutrophil pct 51.2 % [facility] Comment: Interpretive Data Percent cell count reference ranges are not reported, since discordance with absolute values may lead to misinterpretation of CBC data. Current Interpretive Data was last revised on 2017. Imm gran pct 0.3 % [facility] Comment: Interpretive Data Percent cell count reference ranges are not reported, since discordance with absolute values may lead to misinterpretation of CBC data. Current Interpretive Data was last revised on 2017. Lymphocyte pct 36.9 % [facility] Comment: Interpretive Data Percent cell count reference ranges are not reported, since discordance with absolute values may lead to misinterpretation of CBC data. Current Interpretive Data was last revised on 2017. Monocyte pct 6.9 % [facility] Comment: Interpretive Data Percent cell count reference ranges are not reported, since discordance with absolute values may lead to misinterpretation of CBC data. Current Interpretive Data was last revised on 2017. Eosinophil pct 4.0 % [facility] Comment: Interpretive Data Percent cell count reference ranges are not reported, since discordance with absolute values may lead to misinterpretation of CBC data. Current Interpretive Data was last revised on 2017. Basophil pct 0.7 % [facility] Comment: Interpretive Data Percent cell count reference ranges are not reported, since discordance with absolute values may lead to misinterpretation of CBC data. Current Interpretive Data was last revised on 2017. Blood 09/07/2024 2:59 AM [employer] 09/07/2024 3:02 AM [employer] Jair Armendariz MD LAB BLOOD ORDERABLES Final Result [address] Department [place] [address] * (ABNORMAL) CBC with auto differential (09/07/2024 2:59 AM [employer]) WBC 5.8 3.8 - 9.9 K/cumm Hgb 12.3(L) 13.0 - 17.5 g/dL [facility] Hct 37.2(L) 38.9 - 50.3 % [facility] Plt 163 150 - 400 K/cumm [facility] MPV 10.4 9.1 - 12.3 fL [facility] RBC 4.17(L) 4.30 - 5.80 M/cumm [facility] MCV 89.2 81.3 - 96.4 fL [facility] MCH 29.5 27.1 - 33.3 pg [facility] MCHC 33.1 32.3 - 35.7 g/dL [facility] RDW CV 12.6 11.1 - 14.9 % [facility] RDW SD 41.1 35.7 - 48.1 fL [facility] NRBC abs 0.00 0.00 - 0.01 K/cumm [facility] Blood 09/07/2024 2:59 AM [employer] 09/07/2024 3:02 AM [employer] Jair Armendariz MD LAB BLOOD ORDERABLES Final Result Performing Organization Address City/[facility]/ZIP Co de Phone Number [facility] [address] Department [place] [address] * Basic metabolic panel (09/07/2024 2:59 AM [employer]) Pathologist [facility] Sodium 143 135 - 145 mmol/L Potassium, pl 4.4 3.3 - 4.9 mmol/L [facility] Chloride 109 97 - 110 mmol/L [facility] CO2 25 22 - 32 mmol/L [facility] Anion gap 9 2 - 15 mmol/L [facility] BUN 24 6 - 25 mg/dL [facility] Creatinine 0.87 0.80 - 1.30 mg/dL [facility] Glucose 86 70 - 199 mg/dL [facility] Comment: Interpretive Data Fasting glucose >/= [...] 2022. Calcium 9.1 8.5 - 10.3 mg/dL [facility] Blood 09/07/2024 2:59 AM [employer] 09/07/2024 3:02 AM [employer] Jair Armendariz MD LAB BLOOD ORDERABLES Final Result Performing Organization Address City/[facility]/ZIP Co de Phone Number [address] Department [place] [address] * US Vein Duplex Lower Extremity Bilateral Complete (09/03/2024 7:37 PM [employer]) Anatomical Region Laterality Modality Vascular Bilateral Ultrasound 09/04/2024 2:26 PM [employer] Impressions 09/04/2024 2:26 PM [employer] 1. No evidence of DVT in the lower extremities bilaterally. 2. Evidence of pulsatile venous flow. This may suggest increased intravascular volume or right-sided valvular heart disease. Clinical correlation suggested. 3. No change when compared to previous studies. Electronically signed by: Lv Smart M.D. Narrative 09/04/2024 2:26 PM [employer] Lower Extremity Vein Duplex Bilateral DATE: 09/03/2024 [...] Shoulder Right WO Contrast (09/02/2024 9:06 AM [employer]) Anatomical Region Laterality Modality Upper Extremities Right Magnetic Reson ance 09/02/2024 11:0 8 AM [employer] Impressions 09/02/2024 12:42 PM [employer] 1. Minimal right rotator cuff tendinopathy without [...] Gudelia Berger MD Narrative 09/02/2024 12:42 PM [employer] EXAMINATION: 1. MRI right shoulder without contrast [...] Ankle Right 2 Views (09/01/2024 9:33 PM [employer]) Anatomical Region Laterality Modality Lower Extremities, Ankle Right Compute d Radiography 09/02/2024 8:13 AM [employer] Impressions 09/02/2024 8:13 AM [employer] There is mild swelling about the right ankle. There is a fracture of the base of 5th metacarpal, similar to prior. No additional fractures. The joints are normal. Electronically signed by: Brice Mantilla M.D. Narrative 09/02/2024 8:13 AM [employer] EXAMINATION: XR ANKLE RIGHT 2 VIEWS HISTORY: [...] Fibula Right 2 views (09/01/2024 8:37 AM [employer]) Anatomical Region Laterality Modality Lower Extremities, Lower Leg Right Com puted Radiography 09/01/2024 8:45 AM [employer] Impressions 09/01/2024 8:45 AM [employer] No acute fracture of the tibia or fibula. Alignment is normal. Electronically signed by: Greg Joy M.D. Narrative 09/01/2024 8:45 AM [employer] EXAMINATION: XR TIBIA FIBULA RIGHT2 VIEWS HISTORY: [...] 3 or More Views (08/31/2024 10:35 PM [employer]) Anatomical Region Laterality Modality Lower Extremities, Ankle Right Compute d Radiography 09/01/2024 11:1 6 AM [employer] Impressions 09/01/2024 11:16 AM [employer] Comparison is made to a prior study [...] Ness Liz M.D. Narrative 09/01/2024 11:16 AM [employer] EXAMINATION: XR ANKLE RIGHT 3 OR MORE [...] 3 or More Views (08/31/2024 10:34 PM [employer]) Anatomical Region Laterality Modality Lower Extremities, Foot Right Computed Radiography 09/01/2024 11:1 6 AM [employer] Impressions 09/01/2024 11:16 AM [employer] Comparison is made to a prior study [...] Ness Liz M.D. Narrative 09/01/2024 11:16 AM [employer] EXAMINATION: XR ANKLE RIGHT 3 OR MORE [...] Sepsis Lactate w/ Reflex (08/23/2024 2:33 AM [employer]) Sepsis Lactate 0.7 0.7 - 2.0 mmol/L Blood 08/23/2024 2:33 AM [employer] 08/23/2024 2:46 AM [employer] Salena Crawley MD LAB BLOOD ORDERABLES Fin al Result Performing Organization Address City/[facility] Co de Phone Number [facility] [address] Department [place] [address] * eGFR (08/23/2024 2:33 AM [employer]) eGFR >90 >=60 mL/min/1. 73 m2 Comment: [...] last reviewed 2021. Blood 08/23/2024 2:33 AM [employer] 08/23/2024 3:24 AM [employer] Salena Crawley MD LAB BLOOD ORDERABLES Fin al Result Performing Organization Address [facility] Co de Phone Number [facility] [address] Department [place] [address] * Differential, auto (08/23/2024 2:33 AM [employer]) Pathologist [facility] Neutrophil abs 3.1 1.5 - 6.5 K/cumm Imm gran abs 0.0 0.0 - 0.1 K/cumm [facility] Lymphocyte abs 2.0 0.8 - 3.3 K/cumm [facility] Monocyte abs 0.5 0.2 - 0.8 K/cumm [facility] Eosinophil abs 0.2 0.0 - 0.5 K/cumm [facility] Basophil abs 0.1 0.0 - 0.1 K/cumm [facility] Neutrophil pct 53.2 % [facility] Comment: Interpretive Data Percent cell count reference ranges are not reported, since discordance with absolute values may lead to misinterpretation of CBC data. Current Interpretive Data was last revised on 2017. Imm gran pct 0.2 % [facility] Comment: Interpretive Data Percent cell count reference ranges are not reported, since discordance with absolute values may lead to misinterpretation of CBC data. Current Interpretive Data was last revised on 2017. Lymphocyte pct 34.0 % [facility] Comment: Interpretive Data Percent cell count reference ranges are not reported, since discordance with absolute values may lead to misinterpretation of CBC data. Current Interpretive Data was last revised on 2017. Monocyte pct 7.8 % [facility] Comment: Interpretive Data Percent cell count reference ranges are not reported, since discordance with absolute values may lead to misinterpretation of CBC data. Current Interpretive Data was last revised on 2017. Eosinophil pct 3.8 % [facility] Comment: Interpretive Data Percent cell count reference ranges are not reported, since discordance with absolute values may lead to misinterpretation of CBC data. Current Interpretive Data was last revised on 2017. Basophil pct 1.0 % [facility] Comment: Interpretive Data Percent cell count reference ranges are not reported, since discordance with absolute values may lead to misinterpretation of CBC data. Current Interpretive Data was last revised on 2017. Blood 08/23/2024 2:33 AM [employer] 08/23/2024 3:24 AM [employer] us Salena Crawley MD LAB BLOOD ORDERABLES Fin al Result [facility] [address] Department [place] [address] * Pro B-type natriuretic peptide (08/23/2024 2:33 AM [employer]) NT-proBNP <36 <=300 pg/mL Comment: Interpretive Comments: [...] Revised Date: 2018. Blood 08/23/2024 2:33 AM [employer] 08/23/2024 3:24 AM [employer] Salena Crawley MD LAB BLOOD ORDERABLES Fin al Result [facility] [address] Department [place] [address] * (ABNORMAL) CBC with auto differential (08/23/2024 2:33 AM [employer]) WBC 5.8 3.8 - 9.9 K/cumm Hgb 12.9(L) 13.0 - 17.5 g/dL [facility] Hct 39.2 38.9 - 50.3 % [facility] Plt 205 150 - 400 K/cumm [facility] MPV 10.8 9.1 - 12.3 fL [facility] RBC 4.39 4.30 - 5.80 M/cumm [facility] MCV 89.3 81.3 - 96.4 fL [facility] MCH 29.4 27.1 - 33.3 pg [facility] MCHC 32.9 32.3 - 35.7 g/dL [facility] RDW CV 12.8 11.1 - 14.9 % [facility] RDW SD 41.8 35.7 - 48.1 fL [facility] NRBC abs 0.00 0.00 - 0.01 K/cumm [facility] Blood 08/23/2024 2:33 AM [employer] 08/23/2024 3:24 AM [employer] Salena Crawley MD LAB BLOOD ORDERABLES Fin al Result [facility] [address] Department [place] [address] * Blood culture Blood (08/23/2024 2:33 AM [employer]) Report Final Report: No growth Blood 08/23/2024 2:33 AM [employer] 08/23/2024 2:47 AM [employer] Narrative [facility] - 08/28/2024 7:01 AM [employer] From a different site than #1. Collection->Peripheral [...] organism identification may be performed using the [employer] Blood Culture Identification panel. This assay detects microbial DNA in a blood culture broth. This assay has been cleared by the [place] Food and Drug Administration and its performance characteristics have been verified by the [facility]. Interpretive data was last revised on September 03, 2022. us Salena Crawley MD LAB MICROBIOLOGY - GENER AL ORDERABLES Final Result Performing Organization Address [facility] Co de Phone Number [facility] [address] Department [place] [address] * Blood culture Blood (08/23/2024 2:33 AM [employer]) Pathologist [facility] Report Final Report: No growth Blood 08/23/2024 2:33 AM [employer] 08/23/2024 2:48 AM [employer] Narrative [facility] - 08/28/2024 7:01 AM [employer] Collection->Peripheral Interpretive Data 1. Blood cultures are incubated and monitored continuously for 5 days (120 hours). The first negative report is issued within 24 hours of receipt in the laboratory. 2. All positive cultures are resulted and called to physicians/care providers as soon as they are detected. 3. A rapid molecular test for organism identification may be performed using the [employer] Blood Culture Identification panel. This assay detects microbial DNA in a blood culture broth. This assay has been cleared by the [place] Food and Drug Administration and its performance characteristics have been verified by the [facility]. Interpretive data was last revised on September 03, 2022. Salena Crawley MD LAB MICROBIOLOGY - GENER AL ORDERABLES Final Result Performing Organization Address [facility] Co de Phone Number [facility] [address] Department [place] [address] * (ABNORMAL) Comprehensive metabolic panel (08/23/2024 2:33 AM [employer]) Sodium 140 135 - 145 mmol/L Potassium, pl 3.9 3.3 - 4.9 mmol/L [facility] Chloride 104 97 - 110 mmol/L [facility] CO2 25 22 - 32 mmol/L [facility] Anion gap 11 2 - 15 mmol/L [facility] BUN 24 6 - 25 mg/dL [facility] Creatinine 0.82 0.80 - 1.30 mg/dL [facility] Glucose 83 70 - 199 mg/dL [facility] Comment: Interpretive Data Fasting glucose [...] 2022. Calcium 9.3 8.5 - 10.3 mg/dL [facility] Bilirubin, total 0.6 0.1 - 1.2 mg/dL [facility] Protein, pl 6.9 6.5 - 8.5 g/dL [facility] Albumin 4.0 3.5 - 5.0 g/dL [facility] Alk phos 70 40 - 130 Units/L [facility] ALT 65(H) 7 - 55 Units/L [facility] AST 30 10 - 50 Units/L [facility] Comment:Slightly Hemolyzed S pecimen Blood 08/23/2024 2:33 AM [employer] 08/23/2024 3:24 AM [employer] Salena Crawley MD LAB BLOOD ORDERABLES Fin al Result Performing Organization Address [facility] Co de Phone Number [facility] [address] [place] [address] * ECG 12 lead (08/23/2024 2:32 AM [employer]) 08/23/2024 2:32 AM [employer] Narrative [facility] - 08/24/2024 4:38 PM [employer] Vent Rate: 64 bpm RR Interval: 935 msec [place] Interval: 174 msec QRS Duration: 109 msec QT Interval: 409 msec QTC Interval: 418 msec P-R-T [place]: 68 - 81 - 41 degrees IMPRESSION: SINUS RHYTHM NORMAL ECG Electronically Signed By: Andrea JONES Salena Crawley MD ECG ORDERABLES Final Re sult [facility] * eGFR (08/21/2024 12:35 AM [employer]) eGFR >90 >=60 mL/min/1. 73 m2 Comment: [...] reviewed 2021. Blood 08/21/2024 12:3 5 AM [employer] 08/21/2024 12:40 AM [employer] us Magalis MARQUES LAB BLOOD ORDERABLE S Final Result Performing Organization Address City/[facility]/ZIP Co de Phone Number [facility] [address] [facility] Department [place] [address] * Differential, auto (08/21/2024 12:35 AM [employer]) Neutrophil abs 3.7 1.5 - 6.5 K/cumm Imm gran abs 0.0 0.0 - 0.1 K/cumm [facility] Lymphocyte abs 2.2 0.8 - 3.3 K/cumm [facility] Monocyte abs 0.6 0.2 - 0.8 K/cumm [facility] Eosinophil abs 0.3 0.0 - 0.5 K/cumm [facility] Basophil abs 0.1 0.0 - 0.1 K/cumm [facility] Neutrophil pct 54.1 % [facility] Comment: Interpretive Data Percent cell count reference ranges are not reported, since discordance with absolute values may lead to misinterpretation of CBC data. Current Interpretive Data was last revised on 2017. Imm gran pct 0.1 % [facility] Comment: Interpretive Data Percent cell count reference ranges are not reported, since discordance with absolute values may lead to misinterpretation of CBC data. Current Interpretive Data was last revised on 2017. Lymphocyte pct 32.5 % [facility] Comment: Interpretive Data Percent cell count reference ranges are not reported, since discordance with absolute values may lead to misinterpretation of CBC data. Current Interpretive Data was last revised on 2017. Monocyte pct 8.3 % [facility] Comment: Interpretive Data Percent cell count reference ranges are not reported, since discordance with absolute values may lead to misinterpretation of CBC data. Current Interpretive Data was last revised on 2017. Eosinophil pct 4.3 % [facility] Comment: Interpretive Data Percent cell count reference ranges are not reported, since discordance with absolute values may lead to misinterpretation of CBC data. Current Interpretive Data was last revised on 2017. Basophil pct 0.7 % [facility] Comment: Interpretive Data Percent cell count reference ranges are not reported, since discordance with absolute values may lead to misinterpretation of CBC data. Current Interpretive Data was last revised on 2017. Blood 08/21/2024 12:3 5 AM [employer] 08/21/2024 12:40 AM [employer] us Magalis MARQUES LAB BLOOD ORDERABLE S Final Result [facility] [address] [facility] Department [place] [address] * (ABNORMAL) CBC with auto differential (08/21/2024 12:35 AM [employer]) WBC 6.9 3.8 - 9.9 K/cumm Hgb 12.1(L) 13.0 - 17.5 g/dL [facility] Hct 36.8(L) 38.9 - 50.3 % [facility] Plt 200 150 - 400 K/cumm [facility] MPV 10.1 9.1 - 12.3 fL [facility] RBC 4.14(L) 4.30 - 5.80 M/cumm [facility] MCV 88.9 81.3 - 96.4 fL [facility] MCH 29.2 27.1 - 33.3 pg [facility] MCHC 32.9 32.3 - 35.7 g/dL [facility] RDW CV 12.8 11.1 - 14.9 % [facility] RDW SD 41.5 35.7 - 48.1 fL [facility] NRBC abs 0.00 0.00 - 0.01 K/cumm [facility] Blood 08/21/2024 12:3 5 AM [employer] 08/21/2024 12:40 AM [employer] Magalis MARQUES LAB BLOOD ORDERABLE S Final Result Performing Organization Address City/[facility]/ZIP Co de Phone Number [address] [facility] [employer] [place] [address] * Erythrocyte sedimentation rate (08/21/2024 12:35 AM [employer]) Erythrocyte sedimentation rate 5 1 - 15 mm/hr [facility] Blood 08/21/2024 12:3 5 AM [employer] 08/21/2024 12:40 AM [employer] Magalis Aguilera [place] LAB BLOOD ORDERABLE S Final Result [address] [employer] [place] [address] * CRP (acute phase) (08/21/2024 12:35 AM [employer]) CRP <3.5 <=10.0 mg/L Blood 08/21/2024 12:3 5 AM [employer] 08/21/2024 12:40 AM [employer] Magalis MARQUES LAB BLOOD ORDERABLE S Final Result [address] Department [place] [address] * (ABNORMAL) Basic metabolic panel (08/21/2024 12:35 AM [employer]) Pathologist [facility] Sodium 140 135 - 145 mmol/L Potassium, pl 4.2 3.3 - 4.9 mmol/L [facility] Chloride 104 97 - 110 mmol/L [facility] CO2 26 22 - 32 mmol/L [facility] Anion gap 10 2 - 15 mmol/L [facility] BUN 34(H) 6 - 25 mg/dL [facility] Creatinine 0.91 0.80 - 1.30 mg/dL [facility] Glucose 96 70 - 199 mg/dL [facility] Comment: Interpretive Data Fasting glucose >/= [...] 2022. Calcium 9.1 8.5 - 10.3 mg/dL [facility] Blood 08/21/2024 12:3 5 AM [employer] 08/21/2024 12:40 AM [employer] us Magalis MARQUES LAB BLOOD ORDERABLE S Final Result Performing Organization Address [facility]/ZIP Co de Phone Number [address] Department [place] [address] * Streptococcus Group A PCR Throat (08/20/2024 9:19 AM [employer]) [facility] Strep A DNA Not Detected Not Detected Comment: This test is performed using the [employer] Xpert Group A Streptococcal Assay. This is [...] the performing laboratory. Throat 08/20/2024 9:19 AM [employer] 08/20/2024 9:22 AM [employer] Fei Murray MD LAB MICROBIOLOGY - GENERAL ORDERABLES Final Result Performing Organization Address City/State/[facility] Co de Phone Number [facility] [address] Department [place] [address] * Respiratory pathogen panel Nasopharyngeal (08/20/2024 9:19 AM [employer]) [facility] Influenza A RNA Not Detected Not Detected Influenza B RNA Not Detected Not Detected [facility] RSV RNA Not Detected Not Detected [facility] COVID-19 RNA Not Detected Not Detected [facility] Coronavirus 229E RNA Not Detected Not Detected [facility] Coronavirus HKU1 RNA Not Detected Not Detected [facility] Coronavirus NL63 RNA Not Detected Not Detected [facility] Coronavirus OC43 RNA Not Detected Not Detected [facility] Adenovirus DNA Not Detected Not Detected [facility] Metapneumovirus RNA Not Detected Not Detected [facility] Rhinovirus/Enterov irus RNA Not Detected Not Detected [facility] Parainfluenza 1 RNA Not Detected Not Detected [facility] Parainfluenza 2 RNA Not Detected Not Detected [facility] Parainfluenza 3 RNA Not Detected Not Detected [facility] Parainfluenza 4 RNA Not Detected Not Detected [facility] B. pertussis DNA Not Detected Not Detected [facility] B. parapertussis DNA Not Detected Not Detected [facility] C. pneumoniae DNA Not Detected Not Detected [facility] M. pneumoniae DNA Not Detected Not Detected [facility] Comment: Interpretive Data The Yext FilmArray Respiratory Panel (RP2.1) assay is a [...] assay has FDA clearance for testing of MANAGED CARE NURSE swabs. The performance characteristics of this assay have been determined by [facility]. Current interpretive data was last revised on 2021. Nasopharyngeal 08/20/2024 9: 19 AM [employer] 08/20/2024 9:22 AM [employer] Narrative JADA JUSTIN - 08/20/2024 10:22 AM [employer] Is the Patient experiencing symptoms consistent with COVID?->Yes Surveillance testing for transplant patient?->No Fei Murray MD LAB MICROBIOLOGY - GENERAL ORDERABLES Final Result Performing Organization Address [facility] Co de Phone Number JADA JUSTIN [address] Department [place] [employer] [place] [address] [place] * (ABNORMAL) D-dimer, quantitative (08/15/2024 1:08 AM [employer]) D-Dimer 647(H) <=499 ng/mL FEU Comment: Interpretive [...] revised on 2019. Blood 08/15/2024 1:08 AM [employer] 08/15/2024 1:11 AM [employer] Maddison Muhammad NP LAB BLOOD ORDERABLES Final Resul t Performing Organization Address [facility] Co de Phone Number JADA [facility] [address] Department [place] [employer] [place] [address] * eGFR (08/14/2024 9:59 PM [employer]) eGFR >90 >=60 mL/min/1. 73 m2 Comment: [...] last reviewed 2021. Blood 08/14/2024 9:59 PM [employer] 08/14/2024 10:10 PM [employer] us Abigail Richards MD LAB BLOOD ORDERABLES Final Result [facility] [address] [facility]. [place] [address] * Differential, auto (08/14/2024 9:59 PM [employer]) Neutrophil abs 3.7 1.5 - 6.5 K/cumm [...] revised on 2017. Blood 08/14/2024 9:59 PM [employer] 08/14/2024 10:10 PM [employer] us Abigail Richards MD LAB BLOOD ORDERABLES Final Result JADA [facility]ANSON[facility] [address] [facility]. [place] [address] * Pro B-type natriuretic peptide (08/14/2024 9:59 PM [employer]) NT-proBNP 75 <=300 pg/mL Comment: Interpretive Comments: [...] Revised Date: 2018. Blood 08/14/2024 9:59 PM [employer] 08/14/2024 10:10 PM [employer] us Abigail Richards MD LAB BLOOD ORDERABLES Final Result [facility] [address] [facility]. Department of Laboratories [place], [place] [id number] * CBC with auto differential (08/14/2024 9:59 PM [employer]) [facility] WBC 6.5 3.8 - 9.9 K/cumm Hgb 13.3 13.0 - 17.5 g/dL [facility] Hct 39.8 38.9 - 50.3 % [facility] Plt 218 150 - 400 K/cumm [facility] MPV 10.0 9.1 - 12.3 fL [facility] RBC 4.49 4.30 - 5.80 M/cumm [facility] MCV 88.6 81.3 - 96.4 fL [facility] MCH 29.6 27.1 - 33.3 pg [facility] MCHC 33.4 32.3 - 35.7 g/dL [facility] RDW CV 12.7 11.1 - 14.9 % [facility] RDW SD 41.1 35.7 - 48.1 fL [facility] NRBC abs 0.00 0.00 - 0.01 K/cumm [facility] Blood (Blood, Venous) 08/14/2024 9:59 PM [employer] 08/14/2024 10:10 PM [employer] Abigail Richards MD LAB BLOOD ORDERABLES Final Result Performing Organization Address [facility] Co de Phone Number [facility] [address] [facility] [place] [address] * Lipase (08/14/2024 9:59 PM [employer]) Pathologist [facility] Lipase 50 10 - 99 Units/L Blood (Blood, Venous) 08/14/2024 9:59 PM [employer] 08/14/2024 10:10 PM [employer] Abigail Richards MD LAB BLOOD ORDERABLES Final Result Performing Organization Address [facility] de Phone Number [facility] [address] [facility] [place] [address] * (ABNORMAL) Comprehensive metabolic panel (08/14/2024 9:59 PM [employer]) [facility] Sodium 139 135 - 145 mmol/L Potassium, pl 3.9 3.3 - 4.9 mmol/L [facility] Chloride 101 97 - 110 mmol/L [facility] CO2 27 22 - 32 mmol/L [facility] Anion gap 11 2 - 15 mmol/L [facility] BUN 25 6 - 25 mg/dL [facility] Creatinine 0.90 0.80 - 1.30 mg/dL [facility] Glucose 92 70 - 199 mg/dL [facility] Comment: Interpretive Data Fasting glucose >/= 126 [...] Units/L [facility] Blood 08/14/2024 9:59 PM [employer] 08/14/2024 10:10 PM [employer] Abigail Richards MD LAB BLOOD ORDERABLES Final Result [facility] [address] [facility]. [place] [address] * TRANSTHORACIC ECHO (TTE) COMPLETE W DOPPLER/CF WO CONTRAST (08/14/2024 11:39 AM [employer]) LV EF 55-60 % CONS SCIMAGE Anatomical Region Laterality Modality Ultrasound 08/14/2024 10:0 7 AM [employer] Narrative 08/14/2024 11:49 AM [employer] [facility] [address] [place] [address] ECHOCARDIOGRAM Patient Name: LISA MCCOY : 1980 (43y 11m) Gender: M Study Date: 08/14/2024 10:07:30 AM Ht(Inch): 68 Wt(Lb): 173.06 BSA: 1.94 Executive Manager: TC Location: [address] Order Provider: PHOEBE ADKINS BMI: 26.31 [...] Jerel Ramirez MD PhD 08/14/2024 11:48:00 AM [employer] Procedure Note Jerel Ramirez MD PhD - 08/14/2024 [facility] [address] [place] [address] ECHOCARDIOGRAM Patient Name: LISA MCCOY : 1980 (43y 11m) Gender: M Study Date: 08/14/2024 10:07:30 AM Ht(Inch): 68 Wt(Lb): 173.06 BSA: 1.94 Executive Manager: NINFA Location: [address] Order Provider: PHOEBE ADKINS BMI: 26.31 [...] Jerel Ramirez MD PhD 08/14/2024 11:48:00 AM [employer] us Phoebe Adkins MD CV ECHO PROCEDURES Final Result * eGFR (08/13/2024 5:30 AM [employer]) eGFR >90 >=60 mL/min/1. 73 m2 Comment: [...] last reviewed 2021. Blood 08/13/2024 5:30 AM [employer] 08/13/2024 6:25 AM [employer] Phoebe Adkins MD LAB BLOOD ORDERABLES Final Resul t Performing Organization Address [facility] Co de Phone Number [facility] [address] Department of [employer] [place], [place] [id number] * (ABNORMAL) CBC without differential (08/13/2024 5:30 AM [employer]) WBC 5.7 3.8 - 9.9 K/cumm Hgb 11.9(L) 13.0 - 17.5 g/dL [facility] Hct 36.4(L) 38.9 - 50.3 % [facility] Plt 186 150 - 400 K/cumm [facility] MPV 10.6 9.1 - 12.3 fL [facility] RBC 4.01(L) 4.30 - 5.80 M/cumm [facility] MCV 90.8 81.3 - 96.4 fL [facility] MCH 29.7 27.1 - 33.3 pg [facility] MCHC 32.7 32.3 - 35.7 g/dL [facility] RDW CV 13.0 11.1 - 14.9 % [facility] RDW SD 43.0 35.7 - 48.1 fL [facility] NRBC abs 0.00 0.00 - 0.01 K/cumm [facility] Blood 08/13/2024 5:30 AM [employer] 08/13/2024 6:25 AM [employer] Phoebe Adkins MD LAB BLOOD ORDERABLES Final Resul t [facility] [address] Department of [employer] [place], [place] [id number] * Phosphorus (08/13/2024 5:30 AM [employer]) Phosphorus, pl 2.9 2.3 - 4.5 mg/dL Blood 08/13/2024 5:30 AM [employer] 08/13/2024 6:25 AM [employer] us Phoebe Adkins MD LAB BLOOD ORDERABLES Final Resul t Performing Organization Address [facility] Co de Phone Number [facility] [address] [facility] [employer] [place] [address] * Magnesium (08/13/2024 5:30 AM [employer]) Magnesium 1.9 1.4 - 2.5 mg/dL Blood 08/13/2024 5:30 AM [employer] 08/13/2024 6:25 AM [employer] us Phoebe Adkins MD LAB BLOOD ORDERABLES Final Resul t Performing Organization Address [facility] de Phone Number [facility] [address] [facility] [employer] [place] [address] * Ferritin (08/13/2024 5:30 AM [employer]) Ferritin 39 30 - 400 ng/mL Blood 08/13/2024 5:30 AM [employer] WR[employer]PER [employer] 08/13/2024 6:24 AM [employer] us Phoebe Adkins MD LAB BLOOD ORDERABLES Final Resul t Performing Organization Address [facility] de Phone Number [facility] [address] [place] [address] * (ABNORMAL) Hepatic function panel (08/13/2024 5:30 AM [employer]) Bilirubin, total 0.4 0.1 - 1.2 mg/dL Bilirubin, direct <0.2 0.1 - 0.3 mg/dL [facility] Protein, pl 5.9(L) 6.5 - 8.5 g/dL [facility] Albumin 3.5 3.5 - 5.0 g/dL [facility] Alk phos 71 40 - 130 Units/L [facility] ALT 200(H) 7 - 55 Units/L [facility] AST 101(H) 10 - 50 Units/L [facility] Blood 08/13/2024 5:30 AM [employer] 08/13/2024 6:25 AM [employer] Russ Adkins MD LAB BLOOD ORDERABLES Final Resul t Performing Organization Address [facility] Co de Phone Number [facility] [address] Department [employer] [place] [address] * (ABNORMAL) Basic metabolic panel (08/13/2024 5:30 AM [employer]) Sodium 140 135 - 145 mmol/L Potassium, pl 4.1 3.3 - 4.9 mmol/L [facility] Chloride 106 97 - 110 mmol/L [facility] CO2 24 22 - 32 mmol/L [facility] Anion gap 10 2 - 15 mmol/L [facility] BUN 23 6 - 25 mg/dL [facility] Creatinine 0.82 0.80 - 1.30 mg/dL [facility] Glucose 87 70 - 199 mg/dL [facility] Comment: Interpretive Data Fasting glucose [...] 2022. Calcium 8.1(L) 8.5 - 10.3 mg/dL [facility] Blood 08/13/2024 5:30 AM [employer] 08/13/2024 6:25 AM [employer] Phoebe Adkins MD LAB BLOOD ORDERABLES Final Resul t Performing Organization Address [facility]/ZIP Co de Phone Number [facility] [address] [place] [place] [address] * Drugs of Abuse Screen, Urine with Reflex Confirmation (08/13/2024 12:15 AM [employer]) [facility] Amphetamine, ur Not Detected CutOff 500ng/mL Comment: Interpretive Data - Amphetamines: Samples containing greater than 500 ng/mL d-methamphetamine or other cross-reacting amphetamine compounds are reported as positive. Amphetamine immunoassays are subject to significant false positive rates due to cross-reactivity of non-amphetamine drugs. Confirmatory testing required for definitive results. Current Interpretive Data was last reviewed 2023. Barbiturates, ur Not Detected CutOff 200ng/mL [facility] Comment: Interpretive Data - Barbiturates: Samples containing greater than 200 ng/mL secobarbital or other cross-reacting barbiturate compounds are reported as positive. False positive and false negative results are possible. Confirmatory testing required for definitive results. Current Interpretive Data was last reviewed 2023. Benzodiazepines, ur Not Detected CutOff 100ng/mL [facility] Comment: Interpretive Data - Benzodiazepines: Samples containing greater than 100 ng/mL nordiazepam or other cross-reacting compounds are reported as positive. False positive and false negative results are possible. Confirmatory testing required for definitive results. Current Interpretive Data was last reviewed 2023. Cannabinoids, ur Not Detected CutOff 50 ng/mL [facility] Comment: Interpretive Data - Cannabinoids: Samples containing greater than 50 ng/mL delta-9 THC -COOH or other cross- reacting compounds are reported as positive. False positive and false negative results are possible. Confirmatory testing required for definitive results. Current Interpretive Data was last reviewed 2023. Cocaine, ur Not Detected CutOff 150ng/mL [facility] Comment: Interpretive Data - Cocaine: Samples containing greater than 150 ng/mL benzoylecgonine or other cross- reacting compounds are reported as positive. False positive and false negative results are possible. Confirmatory testing required for definitive results. Current Interpretive Data was last reviewed 2023. Fentanyl, Ur Not Detected CutOff 5 ng/mL [facility] Comment: Interpretive Data - Fentanyl: Samples containing greater than 5 ng/mL norfentanyl, fentanyl, or other cross-reacting fentanyl compounds are reported as positive. False positive and false negative results are possible. Confirmatory testing required for definitive results. Current Interpretive Data was last reviewed 2023. Methadone, ur Not Detected CutOff 300ng/mL [facility] Comment: Interpretive Data - Methadone: Samples containing greater than 300 ng/mL d,l-methadone or other cross-reacting compounds are reported as positive. False positive and false negative results are possible. Confirmatory testing required for definitive results. Current Interpretive Data was last reviewed 2023. Opiates, ur Not Detected CutOff 300ng/mL [facility] Comment: Interpretive Data - Opiates: Samples containing greater than 300 ng/mL morphine or other cross-reacting compounds are reported as positive. False positive and false negative results are possible. Confirmatory testing required for definitive results. Current Interpretive Data was last reviewed 2023. Oxycodone, ur Not Detected CutOff 100ng/mL [facility] Comment: Interpretive Data - Oxycodone: Samples containing greater than 100 ng/mL oxycodone or other cross-reacting compounds are reported as positive. False positive and false negative results are possible. Confirmatory testing required for definitive results. Current Interpretive Data was last reviewed 2023. Phencyclidine, ur Not Detected CutOff 25 ng/mL [facility] Comment: Interpretive Data - Phencyclidine: Samples containing greater than 25 ng/mL phencyclidine or other cross-reacting compounds are reported as positive. False positive and false negative results are possible. Confirmatory testing required for definitive results. Current Interpretive Data was last reviewed 2023. Urine Creatinine 90 mg/dL [facility] Comment: Interpretive Data Urine Creatinine: < 10 mg/dL is extremely dilute = or > 10 but < 20 mg/dL is dilute = or > 20 mg/dL is normal Current Interpretive Data was last revised on 2017. Urine 08/13/2024 12:1 5 AM [employer] 08/13/2024 12:26 AM [employer] WR[employer]PER [employer]KER Narrative [facility] - 08/13/2024 12:54 AM [employer] Drug of Abuse screening is performed by immunoassay for medical purposes only. This is not to be used for Pain Management purposes. If Detected, confirmation testing will be performed for Amphetamines, Cocaine, Fentanyl, Methadone, Opiates, Oxycodone or Phencyclidine. Batsheva Portillo MD LAB URINE ORDERABLES Final Result JADA [facility] [address] [place] [address] * (ABNORMAL) Urinalysis reflex to microscopic and culture Urine (08/13/2024 12:15 AM [employer] WR[employer]KER) Color, ur Yellow Yellow Clarity, ur Clear Clear [facility] Specific gravity, ur >1.050(H) 1.003 - 1.030 [facility] pH, urine 6.5 [facility] Comment: Interpretive Data U rine pH is affected by diet, medications, systemic acid-base disturbances, and renal tubular function. pH may affect urinary stone formation. For example, urine pH below 6.0 may help reduce the tendency for calcium phosphate stones and pH greater than 6.0 may reduce the tendency for uric acid stone formation. Source: [facility] Current Interpretive Data was last revised on 2017 Protein, ur ql Negative Negative [facility] Glucose, ur ql Negative Negative [facility] Ketones, ur Negative Negative [facility] Bilirubin, ur Negative Negative [facility] Blood, ur Negative Negative [facility] Urobilinogen, ur <2.0 <2.0 mg/dL [facility] Nitrite, ur Negative Negative [facility] Leukocyte esterase, ur Negative Negative [facility] UA reflex comment Reflex conditions for microscopic UA and culture not met. [facility] Urine 08/13/2024 12:1 5 AM [employer] 08/13/2024 12:15 AM [employer] us Batsheva Portillo MD LAB MICROBIOLOGY - GENERAL ORDERABLES Final Result JADA [facility] [address] [place] [address] * CT Chest PE (CTA) W Contrast (08/12/2024 11:48 PM [employer]) Anatomical Region Laterality Modality Body N/A Computed Tomogra phy 08/12/2024 11:4 3 PM [employer] Impressions 08/13/2024 9:24 AM [employer] No pulmonary embolism. Electronically signed by: Tari Gavin M.D. Narrative 08/13/2024 9:24 AM [employer] EXAMINATION: CT CHEST PE (CTA) W CONTRAST [...] Lower Extremity Bilateral Complete (08/12/2024 11:46 PM [employer]KER) Anatomical Region Laterality Modality Vascular Bilateral Ultrasound 08/13/2024 12:0 9 PM [employer] Impressions 08/13/2024 12:09 PM [employer] 1. No evidence of DVT in the lower extremities bilaterally. 2. Pulsatile venous flow bilaterally. This may suggest increased intravascular volume or right-sided valvular heart disease. Clinical correlation suggested. 3. Prominent lymph nodes in both groins. Electronically signed by: Lv Smart M.D. Narrative 08/13/2024 12:09 PM [employer] Lower Extremity Vein Duplex Bilateral DATE: 08/12/2024 [...] ult * US RUQ (08/12/2024 11:38 PM [employer]KER) Anatomical Region Laterality Modality Abdomen N/A Ultrasound 08/12/2024 10:4 5 PM [employer] Impressions 08/13/2024 11:42 AM [employer] 1. Trace perihepatic ascites. 2. Pulsatile portal venous flow and dilated inferior vena cava, which may represent elevated right heart pressures and/or tricuspid regurgitation. For the purposes of customer quality specialist, this study was initially interpreted by teleradiology. There is no significant discrepancy. Electronically signed by: Saeid Baker MD, PHD Narrative 08/13/2024 11:42 AM [employer] EXAMINATION: LIMITED ABDOMINAL SONOGRAM HISTORY: Elevated liver [...] and/or tricuspid regurgitation. For the purposes of customer quality specialist, this study was initially interpreted by teleradiology. There is no significant discrepancy. Electronically signed by: Saeid Baker MD, PHD us Batsheva Portillo MD IMG US PROCEDURES Final Res ult * D-Dimer - Add on lab test (08/12/2024 10:29 PM [employer]) Acceptable Yes Blood 08/12/2024 10:2 9 PM [employer] 08/12/2024 10:29 PM [employer] WR[employer]PER [employer]KER Narrative JADA [facility] - 08/12/2024 10:29 PM [employer] Name of Test->D-Dimer us Batsheva Portillo MD LAB BLOOD ORDERABLES Final Result [facility] [address] [place] [address] * CT Head and Cervical Spine WO Contrast (08/12/2024 10:20 PM [employer] WR[employer]PER [employer]KER) Anatomical Region Laterality Modality Head and Neck N/A Computed Tomogra phy 08/12/2024 10:1 3 PM [employer] Impressions 08/13/2024 7:02 [address] HEAD: No acute intracranial abnormality or calvarial fracture. CT CERVICAL SPINE: 1. No acute osseous abnormality. 2. Multilevel cervical spondylosis; most pronounced at C5-C6 and C6-C7. For the purposes of customer quality specialist, this study was initially interpreted by teleradiology. There is no significant discrepancy. Electronically signed by: Zaheer Navas M.D. Narrative 08/13/2024 7:02 AM [employer] EXAMINATION: 1. CT head without contrast 2. [...] C5-C6 and C6-C7. For the purposes of customer quality specialist, this study was initially interpreted by teleradiology. There is no significant discrepancy. Electronically signed by: Zaheer Navas M.D. us Batsheva Portillo MD IM CT PROCEDURES Final Res ult * Protime-INR (08/12/2024 10:05 PM [employer]) PT 12.8 9.7 - 13.0 sec INR 1.18 0.90 - 1.20 [facility] Comment: Interpretive data Oral anticoagulant therapeutic ranges: Venous thromboembolism prophylaxis or treatment: 2.0-3.0 CARDIOLOGY Standard range: 2.0-3.0 High-intensity range: 2.5-3.5 Refer to indication-specific guidelines for appropriate target ranges for prosthetic heart valve replacement. Current interpretive data was last revised on 2019. Blood 08/12/2024 10:0 5 PM [employer] 08/12/2024 10:29 PM [employer] WR[employer]PER [employer] us Batsheva Portillo MD LAB BLOOD ORDERABLES Final Result Performing Organization Address City/[facility]/ZIP Co de Phone Number JADA [facility] [address] [employer] [place], [place] [id number] * (ABNORMAL) D-dimer, quantitative (08/12/2024 10:05 PM [employer] WR[employer]KER) D-Dimer 1,783(H) <=499 ng/mL FEU Comment: Interpretive [...] on 2019. Blood 08/12/2024 10:0 5 PM [employer]KER 08/12/2024 10:05 PM [employer] WR[employer]PER [employer]KER us Batsheva Portillo MD LAB BLOOD ORDERABLES Final Result Performing Organization Address [facility] Co de Phone Number JADA [facility] [address] [employer] [place], [place] [id number] * Folate - Add on lab test (08/12/2024 9:53 PM [employer]KER) Acceptable Yes Blood 08/12/2024 9:53 PM [employer]KER 08/12/2024 9:53 PM [employer] WR[employer]PER [employer]KER Narrative [facility]ADA [facility] - 08/12/2024 9:54 PM [employer] Name of Test->Folate us Batsheva Portillo MD LAB BLOOD ORDERABLES Final Result Performing Organization Address [facility] Co de Phone Number [facility] [address] [facility] [employer] [place] [address] * Vitamin B12 - Add on lab test (08/12/2024 9:53 PM [employer] WR[employer]KER) Acceptable Yes Blood 08/12/2024 9:53 PM [employer] WR[employer]KER 08/12/2024 9:54 PM [employer] WR[employer]PER [employer]KER [facility]ative [facility] 08/12/2024 9:54 PM [employer] Name of Test->Vitamin B12 us Batsheva Portillo MD LAB BLOOD ORDERABLES Final Result Performing Organization Address [facility] Co de Phone Number [facility] [address] [facility] [employer] [place] [address] * Iron profile - Add on lab test (08/12/2024 9:53 PM [employer] WR[employer]KER) Acceptable Yes Blood 08/12/2024 9:53 PM [employer] 08/12/2024 9:54 PM [employer] WR[employer]KER Narrative [facility] - 08/12/2024 9:54 PM [employer] Name of Test->Iron profile Batsheva Portillo MD LAB BLOOD ORDERABLES Final Result Performing Organization Address [facility] Co de Phone Number [facility] [address] [facility] [employer] [place] [id number] * NT-Pro BNP - Add on lab test (08/12/2024 9:53 PM [employer]) Acceptable Yes Blood 08/12/2024 9:53 PM [employer] 08/12/2024 9:53 PM [employer] Narrative [facility] - 08/12/2024 9:54 PM [employer] Name of Test->NT-Pro BNP us Batsheva Portillo MD LAB BLOOD ORDERABLES Final Result Performing Organization Address [facility] Co de Phone Number [facility] [address] [facility] [employer] [place] [address] * TSH reflex Free T4 - Add on lab test (08/12/2024 9:53 PM [employer]) Acceptable Yes Blood 08/12/2024 9:53 PM [employer] 08/12/2024 9:53 PM [employer] Narrative [facility] 08/12/2024 9:54 PM [employer] Name of Test->TSH reflex Free T4 us Batsheva Portillo MD LAB BLOOD ORDERABLES Final Result Performing Organization Address [facility] Co de Phone Number [facility] [address] [facility] [employer] [place] [address] * Phosphorus - Add on lab test (08/12/2024 9:53 PM [employer]) Acceptable Yes Blood 08/12/2024 9:53 PM [employer] 08/12/2024 9:53 PM [employer] Narrative [facility] - 08/12/2024 9:55 PM [employer] Name of Test->Phosphorus us Batsheva Portillo MD LAB BLOOD ORDERABLES Final Result Performing Organization Address [facility] Co de Phone Number [facility] [address] [facility] [employer] [place] [address] * Magnesium - Add on lab test (08/12/2024 9:53 PM [employer]) Acceptable Yes Blood 08/12/2024 9:53 PM [employer] 08/12/2024 9:53 PM [employer] Narrative [facility] - 08/12/2024 9:55 PM [employer] Name of Test->Magnesium us Batsheva Portillo MD LAB BLOOD ORDERABLES Final Result [facility] [address] Department of [employer] [place], [place] [id number] * Troponin T high-sensitivity 2-hour (08/12/2024 9:52 PM [employer] WR[employer]) Pathologist [facility] Trop T hs 6 <=22 ng/L Comment: Interpretive Data For further hscTnT resources including the diagnostic algorithm and an aid in interpretation, copy and paste this link: https://nrl.testcatalog.org/show/hsTrop Current Interpretive Data last revised 2020. Trop T hs delta -1 ng/L [facility] Trop T hs interp Insignificant [facility] Blood 08/12/2024 9:52 PM [employer] 08/12/2024 10:30 PM [employer] us Ace Gonzales MD LAB BLOOD ORDERABLES F inal Result Performing Organization Address [facility]/ZIP Co de Phone Number [facility] [address] Department of [employer] [place], [place] [id number] * Ethanol (08/12/2024 9:52 PM [employer] WR[employer]) [facility] Ethanol <10 <=10 mg/dL Comment: Interpretive Data Legal limit of intoxication > or = 80 mg/dL Levels > or = 400 mg/dL are potentially TOXIC. Current interpretive data was last revised on 2018. Blood 08/12/2024 9:52 PM [employer] 08/12/2024 10:29 PM [employer] Batsheva Portillo MD LAB BLOOD ORDERABLES Final Result Performing Organization Address [facility]/ZIP Co de Phone Number [facility] [address] Department of [employer] [place], [place] [id number] * Hepatitis panel, acute Blood (08/12/2024 9:13 PM [employer] WR[employer]) Pathologist [facility] Hep A IgM Nonreactive Nonreactive Comment: Interpretive Data: If Hep A IgM Ab is reported as Equivocal, a new sample should be drawn in two weeks for testing. Current interpretive data was last revised on 19. Hep B core IgM Nonreactive Nonreactive [facility] Comment: Interpretive Data If HepB Core IgM Ab is reported as Equivocal, a new sample should be drawn in two weeks for testing. Current interpretive data was last revised on 19. Hep C Ab Nonreactive Nonreactive [facility] Comment: Interpretive Data Nonreactive: Antibodies [...] last revised on 2019. HepBsAg Nonreactive Nonreactive [facility] Blood 08/12/2024 9:13 PM [employer] 08/12/2024 9:17 PM [employer] us Batsheva Portillo MD LAB MICROBIOLOGY - GENERAL ORDERABLES Final Result [facility] [address] [place] [address] * Acetaminophen level (08/12/2024 9:13 PM [employer]) Acetaminophen <5 <=5 mcg/mL Comment: Interpretive Data Significant hepatic injury may occur and treatment with n-acetyl cysteine is generally recommended if the acetaminophen level exceeds: 150 mcg/mL at 4 hours after ingestion 75 mcg/mL at 8 hours after ingestion 38 mcg/mL at 12 hours after ingestion 19 mcg/mL at 16 hours after ingestion Consult toxicology or poison control ([phone]) for unknown ingestion time. Current interpretive data was last revised 2023. Blood 08/12/2024 9:13 PM [employer] 08/12/2024 9:17 PM [employer] us Batsheva Portillo MD LAB BLOOD ORDERABLES Final Result Performing Organization Address [facility]/ZIP Co de Phone Number [facility] [address] Department [place] [employer] [place] [address] * Troponin T high-sensitivity series (baseline, 2hr, 4hr, 6hr) (08/12/2024 8:08 PM [employer]) Trop T hs 7 <=22 ng/L Comment: Interpretive Data For further hscTnT resources including the diagnostic algorithm and an aid in interpretation, copy and paste this link: https://nrl.testcatalog.org/show/hsTrop Current Interpretive Data last revised 2020. Blood 08/12/2024 8:08 PM [employer] 08/12/2024 8:23 PM [employer] us Batsheva Portillo MD LAB BLOOD ORDERABLES Final Result Performing Organization Address [facility] Co de Phone Number [facility] [address] Department [place] [employer] [place] [address] * eGFR (08/12/2024 8:08 PM [employer]) eGFR >90 >=60 mL/min/1. 73 m2 Comment: [...] last reviewed 2021. Blood 08/12/2024 8:08 PM [employer] 08/12/2024 8:23 PM [employer] us Batsheva Portillo MD LAB BLOOD ORDERABLES Final Result [facility] [address] Department [place] [address] * Differential, auto (08/12/2024 8:08 PM [employer]) Neutrophil abs 3.5 1.5 - 6.5 K/cumm Imm gran abs 0.0 0.0 - 0.1 K/cumm [facility] Lymphocyte abs 2.2 0.8 - 3.3 K/cumm [facility] Monocyte abs 0.5 0.2 - 0.8 K/cumm [facility] Eosinophil abs 0.3 0.0 - 0.5 K/cumm [facility] Basophil abs 0.1 0.0 - 0.1 K/cumm [facility] Neutrophil pct 54.5 % [facility] Comment: Interpretive Data Percent cell count reference ranges are not reported, since discordance with absolute values may lead to misinterpretation of CBC data. Current Interpretive Data was last revised on 2017. Imm gran pct 0.3 % [facility] Comment: Interpretive Data Percent cell count reference ranges are not reported, since discordance with absolute values may lead to misinterpretation of CBC data. Current Interpretive Data was last revised on 2017. Lymphocyte pct 33.3 % [facility] Comment: Interpretive Data Percent cell count reference ranges are not reported, since discordance with absolute values may lead to misinterpretation of CBC data. Current Interpretive Data was last revised on 2017. Monocyte pct 6.9 % [facility] Comment: Interpretive Data Percent cell count reference ranges are not reported, since discordance with absolute values may lead to misinterpretation of CBC data. Current Interpretive Data was last revised on 2017. Eosinophil pct 4.1 % [facility] Comment: Interpretive Data Percent cell count reference ranges are not reported, since discordance with absolute values may lead to misinterpretation of CBC data. Current Interpretive Data was last revised on 2017. Basophil pct 0.9 % [facility] Comment: Interpretive Data Percent cell count reference ranges are not reported, since discordance with absolute values may lead to misinterpretation of CBC data. Current Interpretive Data was last revised on 2017. Blood 08/12/2024 8:08 PM [employer] 08/12/2024 8:23 PM [employer] us Batsheva Portillo MD LAB BLOOD ORDERABLES Final Result [facility] [address] Department [place] [address] * Pro B-type natriuretic peptide (08/12/2024 8:08 PM [employer]) NT-proBNP 60 <=300 pg/mL Comment: Interpretive Comments: [...] Revised Date: 2018. Blood 08/12/2024 8:08 PM [employer] 08/12/2024 8:23 PM [employer] us Batsheva Portillo MD LAB BLOOD ORDERABLES Final Result Performing Organization Address [facility] Co de Phone Number [facility] [address] Department [employer] [place], [place] [phone] * Thyroid Function [place] (08/12/2024 8:08 PM [employer] WR[employer]KER) TSH 1.43 0.30 - 4.20 mcIUnit/mL Blood 08/12/2024 8:08 PM [employer] 08/12/2024 8:23 PM [employer] us Batsheva Portillo MD LAB BLOOD ORDERABLES Final Result Performing Organization Address [facility] de Phone Number [facility] [address] Department of [employer] [place], [place] [id number] * (ABNORMAL) Iron profile w/ IBC (08/12/2024 8:08 PM [employer] WR[employer]PER [employer]KER) Pathologist [facility] Iron 46(L) 50 - 150 mcg/dL TIBC 296 250 - 400 mcg/dL [facility] Transferrin saturation 16(L) 20 - 50 % [facility] Blood 08/12/2024 8:08 PM [employer] 08/12/2024 8:23 PM [employer] Batsheva Portilol MD LAB BLOOD ORDERABLES Final Result Performing Organization Address [facility] Co de Phone Number [facility] [address] Department [employer] [place], [place] [phone] * (ABNORMAL) CBC with auto differential (08/12/2024 8:08 PM [employer] WR[employer]KER) WBC 6.5 3.8 - 9.9 K/cumm Hgb 12.5(L) 13.0 - 17.5 g/dL [facility] Hct 38.3(L) 38.9 - 50.3 % [facility] Plt 207 150 - 400 K/cumm [facility] MPV 10.1 9.1 - 12.3 fL [facility] RBC 4.22(L) 4.30 - 5.80 M/cumm [facility] MCV 90.8 81.3 - 96.4 fL [facility] MCH 29.6 27.1 - 33.3 pg [facility] MCHC 32.6 32.3 - 35.7 g/dL [facility] RDW CV 13.0 11.1 - 14.9 % [facility] RDW SD 43.2 35.7 - 48.1 fL [facility] NRBC abs 0.00 0.00 - 0.01 K/cumm [facility] Blood (Blood, Venous) 08/12/2024 8:08 PM [employer] 08/12/2024 8:23 PM [employer] WR[employer]PER [employer] us Batsheva Portillo MD LAB BLOOD ORDERABLES Final Result [facility] [address] [facility] [employer] [place], [place] [phone] * Phosphorus (08/12/2024 8:08 PM [employer] WRAPPER [employer]KER) Phosphorus, pl 3.1 2.3 - 4.5 mg/dL Blood 08/12/2024 8:08 PM [employer] 08/12/2024 8:23 PM [employer] WR[employer]PER [employer] us Batsheva Portillo MD LAB BLOOD ORDERABLES Final Result [facility] [address] [facility] [employer] [place] [address] * Magnesium (08/12/2024 8:08 PM [employer] WR[employer]) Magnesium 2.0 1.4 - 2.5 mg/dL Blood 08/12/2024 8:08 PM [employer] 08/12/2024 8:23 PM [employer] WR[employer]PER [employer] us Batsheva Portillo MD LAB BLOOD ORDERABLES Final Result Performing Organization Address [facility]/ZIP Co de Phone Number [facility] [address] [facility] [employer] [place] [address] * Folate (08/12/2024 8:08 PM [employer] WR[employer]) [facility] Folic acid 7.6 >=5.0 ng/mL Blood 08/12/2024 8:08 PM [employer] 08/12/2024 8:23 PM [employer] us Batsheva Portillo MD LAB BLOOD ORDERABLES Final Result Performing Organization Address [facility] Co de Phone Number [facility] [address] Department [employer] [place] [address] * Vitamin B12 (08/12/2024 8:08 PM [employer] WR[employer]) [facility] Vitamin B12 860 230 - 1,250 pg/mL Blood 08/12/2024 8:08 PM [employer] 08/12/2024 8:23 PM [employer] WR[employer] us Batsheva Portillo MD LAB BLOOD ORDERABLES Final Result Performing Organization Address [facility] Co de Phone Number [facility] [address] [facility] [employer] [place] [address] * (ABNORMAL) Comprehensive metabolic panel (08/12/2024 8:08 PM [employer]) [facility] Sodium 142 135 - 145 mmol/L Potassium, pl 4.4 3.3 - 4.9 mmol/L [facility] Chloride 106 97 - 110 mmol/L [facility] CO2 27 22 - 32 mmol/L [facility] Anion gap 9 2 - 15 mmol/L [facility] BUN 29(H) 6 - 25 mg/dL [facility] Creatinine 1.02 0.80 - 1.30 mg/dL [facility] Glucose 104 70 - 199 mg/dL [facility] Comment: Interpretive Data Fasting glucose [...] 2022. Calcium 8.6 8.5 - 10.3 mg/dL [facility] Bilirubin, total 0.3 0.1 - 1.2 mg/dL [facility] Protein, pl 6.1(L) 6.5 - 8.5 g/dL [facility] Albumin 3.7 3.5 - 5.0 g/dL [facility] Alk phos 83 40 - 130 Units/L [facility] ALT 230(H) 7 - 55 Units/L [facility] AST 158(H) 10 - 50 Units/L [facility] Blood 08/12/2024 8:08 PM [employer]KER 08/12/2024 8:23 PM [employer] WR[employer] us Batsheva Portillo MD LAB BLOOD ORDERABLES Final Result [facility] [address] Department [place] [address] * XR Chest PA Lateral 2 Views (08/12/2024 7:27 PM [employer]) Anatomical Region Laterality Modality Body, Chest N/A Computed Radiogr aphy 08/13/2024 7:44 AM [employer] WR[employer] Impressions 08/13/2024 7:44 AM [employer] WR[employer] There is subtle airspace opacity in the right lung base which may represent pneumonia in the appropriate clinical setting. Alternatively, this may represent atelectasis. No pleural effusion. No pneumothorax. Heart size is normal. Electronically signed by: Tari Gavin M.D. Narrative 08/13/2024 7:44 AM [employer] WR[employer] EXAMINATION: XR CHEST PA LATERAL 2 VIEWS [...] * ECG 12 lead (08/12/2024 6:48 PM [employer] WR[employer]PER [employer]) 08/12/2024 6:48 PM [employer] WRAPPER [employer]KER Narrative [facility] - 08/13/2024 1:41 PM [employer] WR[employer] Vent Rate: 63 bpm RR Interval: 938 msec [place] Interval: 165 msec QRS Duration: 96 msec QT Interval: 378 msec QTC Interval: 386 msec P-R-T [place]: 74 - 81 - 50 degrees IMPRESSION: SINUS RHYTHM POSSIBLE LEFT ATRIAL ENLARGEMENT [-0.1mV P WAVE IN V1/V2] BORDERLINE ECG Electronically Signed By: Jerel Ramirez MD PhD us Batsheva Portillo MD ECG ORDERABLES Final Resul t [facility] * XR Chest Pa Lateral 2 Views (08/11/2024 2:02 AM [employer] WR[employer]PER [employer]KER) Anatomical Region Laterality Modality Body, Chest N/A Computed Radiogr aphy 08/11/2024 3:00 AM [employer] Impressions 08/11/2024 9:05 AM [employer] Comparison radiograph from 08/08/2024. No consolidation, pleural effusion, or pneumothorax. Cardiomediastinal silhouette within normal limits. Dictated by: Julio Rooney M.D. The radiology attending physician has personally reviewed this study, and had reviewed and/or edited this written report and agrees with it. Electronically signed by: Brice Mantilla M.D. Narrative 08/11/2024 9:05 AM [employer] EXAMINATION: 2 view chest radiograph Procedure Note [...] sult * ECG 12-LEAD (08/11/2024 1:43 AM [employer] WRAPPER MAKER) Narrative [facility] - 08/11/2024 1:43 AM [employer] WR[employer]KER Johnnie Kelly MD 08/11/2024 1:44 AM ECG [...] PA Lateral 2 Views (08/08/2024 10:42 PM [employer] WR[employer]PER [employer]KER) Anatomical Region Laterality Modality Body, Chest N/A Computed Radiogr aphy 08/08/2024 11:0 3 PM [employer] Impressions 08/09/2024 10:05 AM [employer] The current study is compared with the prior radiograph dated 09/13/2019. Mild bibasilar atelectasis. No consolidation, pleural effusion, or pneumothorax. Cardiomediastinal silhouette within normal limits. Dictated by: Chet Boogie MD The radiology attending physician has personally reviewed this study, and had reviewed and/or edited this written report and agrees with it. Electronically signed by: Steve Arce M.D. [facility] 08/09/2024 10:05 AM [employer] WR[employer]PER [employer] EXAMINATION: 2 view chest radiograph Procedure Note [...] CT Head WO Contrast (08/08/2024 10:34 PM [employer] WR[employer]PER [employer]KER) Anatomical Region Laterality Modality Head and Neck N/A Computed Tomogra phy 08/08/2024 10:4 4 PM [employer] Impressions 08/09/2024 10:54 AM [employer] WR[employer]PER [employer] 1. No acute intracranial process. 2. Large burden of cerumen in both external auditory canals which may be impacted. Dictated by: Juancho Marquez MD, Ph.D The radiology attending physician has personally reviewed this study, and had reviewed and/or edited this written report and agrees with it. Electronically signed by: Indio Zambrano M.D. Narrative 08/09/2024 10:54 AM [employer] WR[employer] EXAMINATION: CT head without contrast HISTORY: 43-year-old [...] ult * ECG 12-LEAD (08/08/2024 8:56 PM [employer] WR[employer]PER MAKER) Narrative [facility] - 08/08/2024 8:56 PM [employer]KER Salena Cobb MD 08/08/2024 8:57 PM ECG [...] MD ECG ORDERABLES Final Resul t [facility] * (ABNORMAL) Respiratory pathogen panel Nasopharyngeal (08/06/2024 9:59 AM [employer] WR[employer]PER MAKER) Influenza A RNA Not Detected Not Detected Influenza B RNA Not Detected Not Detected [facility] RSV RNA Not Detected Not Detected [facility] COVID-19 RNA Not Detected Not Detected [facility] Coronavirus 229E RNA Not Detected Not Detected [facility] Coronavirus HKU1 RNA Not Detected Not Detected [facility] Coronavirus NL63 RNA Detected(A) Not Detected [facility] Coronavirus OC43 RNA Not Detected Not Detected [facility] Adenovirus DNA Not Detected Not Detected [facility] Metapneumovirus RNA Not Detected Not Detected [facility] Rhinovirus/Enterov irus RNA Not Detected Not Detected [facility] Parainfluenza 1 RNA Not Detected Not Detected [facility] Parainfluenza 2 RNA Not Detected Not Detected [facility] Parainfluenza 3 RNA Not Detected Not Detected [facility] Parainfluenza 4 RNA Not Detected Not Detected [facility] B. pertussis DNA Not Detected Not Detected [facility] B. parapertussis DNA Not Detected Not Detected [facility] C. pneumoniae DNA Not Detected Not Detected [facility] M. pneumoniae DNA Not Detected Not Detected [facility] Nasopharyngeal 08/06/2024 9: 59 AM [employer] WR[employer] 08/06/2024 10:52 AM [employer]IA WRAPPER MAKER Narrative [facility] - 08/06/2024 11:43 AM [employer] WR[employer]PER [employer]KER Is the Patient experiencing symptoms consistent with COVID?->Yes Surveillance testing for transplant patient?->No Interpretive Data The Yext FilmArray Respiratory Panel (RP2.1) assay is a [...] assay has FDA clearance for testing of MANAGED CARE NURSE swabs. The performance of additional specimen types has been assessed by the performing laboratory. The performance characteristics of this assay have been determined by [facility] Molecular Infectious Disease Laboratory. Current interpretive data was last revised on 22. [facility] MICROBIOLOGY - GENERAL ORDE [place] Final Result [facility] Department of Laboratories [place], [place] [id number] from Last 3 Months Insurance [employer] [address] [id number] [place] [address] [facility] [employer] [address] [address] [place] [address] [facility] [employer] [facility] Advance Directives For more information, please contact: [phone] * Full Code (Latest Code Status on File) Date Activated Date Inactivated Comments 08/13/2024 3:12 AM 08/14/2024 6:01 PM * Full Code Date Activated Date Inactivated Comments 10/28/2022 5:15 PM 10/29/2022 2:07 PM * Full Code Date Activated Date Inactivated Comments 08/09/2019 5:28 PM 08/10/2019 5:09 PM * Full Code Date Activated Date Inactivated Comments 07/29/2019 4:26 PM 08/04/2019 10:36 PM Care Teams Webfocus Developer Relationship Specialty [place] [address] [place] [address] PCP - General Family Medicine 05/18/24 [place] [address] [address] [address] Referring Physician General Surgery 08/04/19 [place] [address] [address] Consulting Physician Gastroenterology 08/04/19
--- OUTSIDE RECORDS SUMMARY | 2024-09-17 21:25 | XMS_ITS ---
Author Organization [facility] [place] Address [address] [place] [address] Care Team Providers Care Production Boring Machine Operator Name Role Phone Unavailable Unavailable Unavailable Surgery Details Not on file Complications Check Surgery Details section. Procedure Estimated Blood Loss Check Surgery Details section. Procedure Findings Check Surgery Details section. Procedure Specimens Taken Check Surgery Details section.
--- OUTSIDE RECORDS SUMMARY | 2024-09-17 21:25 | XMS_ITS | CCD ---
Author Organization [facility] [place] Address [address] [place] [address] Care Team Providers Care Flavoring Machine Operator Name Role Phone Unavailable Primary Care Provider [...]
--- OUTSIDE RECORDS SUMMARY | 2024-09-17 21:25 | XMS_ITS | Referral Summary ---
Author Organization [facility] [place] Address [address] [place] [address] Care Team Providers Care Wafer Fab Operator Name Role Phone Unavailable Primary Care Provider Unavailabl e Social History Tobacco Use Types Packs/Day Years Used Date Smoking Tobacco: Never Assessed Sex and Gender Information Value Date Recorded Sex Assigned at Not on file Legal Sex Male 8:56 AM PST Gender Identity Not on file Sexual Orientation Not on file Plan of Treatment Not on file [facility]
--- OUTSIDE RECORDS SUMMARY | 2024-09-17 21:25 | XMS_ITS | Encounter Summary ---
Author Organization [facility] [place] [address] [place] [address] Care Team Providers Care Barrel Header Name Role Phone Unavailable Primary Care Provider Unavailabl e Prior Encounters Date Type Department Care Team Description 11/19/2022 Travel Plan of Treatment Not on file Visit Diagnoses Not on [facility]
--- OUTSIDE RECORDS SUMMARY | 2024-09-17 21:25 | XMS_ITS | Clinical Summary ---
Author Organization [address] Address [address] [place] [phone] Care Team Providers Care Felt Finisher Name Role Phone Elias Andrews MD Unavailable [phone] Jonah Otto MD Unavailable [phone] Jerel Camejo MD Primary Care Provider [phone] Allergies Active Allergy Reactions Criticality Noted Date [...] Insurance Qualify for In Clinic PT? 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 Assessment & Plan (08/09/2019 7:07 PM CASH ANALYST): Patient presents with complaints of ongoing abdominal [...] 07/29/2019 Assessment & Plan (08/10/2019 10:48 AM CASH ANALYST): Ongoing nausea post cholecystectomy w/o vomiting. Tolerating PO, no emesis overnight - prn zofran - ADAT Assessment & Plan (08/09/2019 7:17 PM CASH ANALYST): Ongoing nausea post cholecystectomy w/o vomiting. - prn zofran - ADAT Calculus of gallbladder 07/29/2019 Dizziness 07/29/2019 Assessment & Plan (08/10/2019 10:59 AM CASH ANALYST): Patient describes dizziness related to uncontrolled abdominal pain. He endorses pain starts in RQ and moves to head . He then becomes diaphoretic, nauseous. Improved this AM. Likely vasovagal, hemodynamically stable. - discussed proper hydration and symptom management Assessment & Plan (08/09/2019 7:16 PM CASH ANALYST): Patient describes dizziness related to uncontrolled abdominal pain. He endorses pain starts in RQ and moves to head . He then becomes diaphoretic, nauseous. - likely vasovagal, s/p 1 L LR in ED. CTM Intractable right upper quadrant abdominal pain 07/29/2019 Overview (08/01/2019): Added automatically from request for surgery [id number] Adjustment disorder with depressed mood in remis devonte 11/05/2018 Sepsis 10/25/2018 Abdominal pain, generalized 10/25/2018 Dizziness 10/20/2018 Syncope and collapse 10/20/2018 Gallbladder adhesions Resolved Problems Problem Noted Date Diagnosed Date Resolved Date COVID-19 08/13/2024 08/14/2024 Encounters Date Type Department Care Team Description 09/17/2024 11:38 AM [facility] - 09/17/2024 1:19 PM [facility] Emergency Department [address] [place] [id number] Chronic venous insufficiency (Primary Dx); Bilateral lower extremity edema Discharge Disposition: Discharge to home or self care 09/14/2024 12:10 AM [facility] - 09/14/2024 1:49 AM [facility] Emergency Department [address] [place] [phone] Brice Sepulveda MD Bilateral lower extremity edema (Primary Dx) Discharge Disposition: Discharge to home or self care 09/14/2024 Telephone [facility] Care at [address] [phone] Lexi Garcia, COLLEGE PRESIDENT Med Refill 09/13/2024 9:20 PM [facility] - 09/13/2024 9:46 PM [facility] Emergency Department [address] [place] [address] Michael Schrader MD Weakness (Primary Dx) Discharge Disposition: Discharge to home or self care 09/13/2024 2:46 AM [facility] - 09/13/2024 5:31 AM [facility] Emergency Department [address] [place] [address] Katharine Polanco MD Chronic venous insufficiency (Primary Dx); Lower extremity edema Discharge Disposition: Discharge to home or self care 09/12/2024 9:22 PM [facility] - 09/12/2024 10:59 PM [facility] Emergency Department [address] [place] [address] Leg swelling (Primary Dx); Venous insufficiency; Venous stasis dermatitis Discharge Disposition: Discharge to home or self care 09/11/2024 10:35 PM [facility] - 09/12/2024 3:44 AM [facility] Emergency Department [address] [place] [phone] Salena Crawley MD Lower extremity edema (Primary Dx); Cellulitis of left lower extremity Discharge Disposition: Discharge to home or self care 09/11/2024 7:00 PM CASH ANALYST Office Visit [facility] at [address] [phone] Truman Gabriel, DO Symptom of leg swelling (Primary Dx) 09/10/2024 5:00 PM CASH ANALYST Office Visit [facility] at [address] [phone] Jess Hobson NP Cellulitis of left lower extremity (Primary Dx); Left leg swelling 09/07/2024 10:55 AM CASH ANALYST - 09/07/2024 10:56 AM [facility] Emergency [facility] Emergency Department [address] [place] [address] Venous stasis dermatitis of both lower extremities (Primary Dx) Discharge Disposition: Discharge to home or self care 09/05/2024 8:08 PM CASH ANALYST - 09/05/2024 10:28 PM [facility] Emergency [facility] Emergency Department [address] [place] [address] Other chronic pain (Primary Dx); Bilateral lower extremity edema Discharge Disposition: Discharge to home or self care 09/05/2024 2:02 AM CASH ANALYST - 09/05/2024 3:14 AM [facility] Emergency [facility] Emergency Department [address] [place] [address] Marek Nelson MD PhD Chronic pain of left lower extremity (Primary Dx) Discharge Disposition: Discharge to home or self care 09/03/2024 7:07 PM CASH ANALYST - 09/03/2024 11:06 PM [facility] Emergency [facility] Emergency Department [address] [place] [phone] Cellulitis of left lower extremity (Primary Dx) Discharge Disposition: Discharge to home or self care 09/02/2024 8:24 AM [facility] - 09/02/2024 11:59 PM [facility] Hospital Encounter [facility] [address] [place] [address] Discharge Disposition: Discharge to home or self care 09/02/2024 3:25 AM CASH ANALYST - 09/02/2024 3:41 AM [facility] Emergency Department [address] [place] [phone] Rachele Guerra MD Sprain of right ankle, unspecified ligament, initial encounter (Primary Dx) Discharge Disposition: Discharge to home or self care 09/01/2024 8:06 AM [facility] - 09/01/2024 9:39 AM [facility] Emergency Department [address] [place] [phone] Jair Armendariz MD Sprain of right ankle, unspecified ligament, initial encounter (Primary Dx) Discharge Disposition: Discharge to home or self care 08/23/2024 9:27 PM [facility] - 08/23/2024 10:03 PM [facility] Emergency Department [address] [place] [phone] Leg swelling (Primary Dx); Cellulitis of left lower extremity Discharge Disposition: Discharge to home or self care 08/23/2024 1:41 AM [facility] - 08/23/2024 9:16 AM [facility] Emergency Department [address] [place] [address] Salena Crawley MD Li, Alex, MD Schneider, John Elliott, MD Leg swelling (Primary Dx); Cellulitis of left lower extremity; Failure of outpatient treatment Discharge Disposition: Discharge to home or self care 08/20/2024 11:11 PM [facility] - 08/21/2024 1:30 AM [facility] Emergency Department [address] [place] [address] Dependent edema (Primary Dx) Discharge Disposition: Discharge to home or self care 08/20/2024 9:06 AM [facility] - 08/20/2024 11:08 AM [facility] Emergency Department [address] [place] [address] Fei Murray MD Upper respiratory tract infection, unspecified type (Primary Dx); Peripheral edema Discharge Disposition: Discharge to home or self care 08/20/2024 2:24 AM CASH ANALYST - 08/20/2024 4:35 AM [facility] Emergency Department [address] [place] [address] Discharge Disposition: Left without being seen 08/18/2024 5:58 AM CASH ANALYST - 08/18/2024 7:26 AM CASH ANALYST Emergency [facility] Emergency Department [address] [place] [phone] Lorenzo Peña MD Peripheral edema (Primary Dx) Discharge Disposition: Discharge to home or self care 08/17/2024 3:00 PM CASH ANALYST Diagnostic [facility] Orthopaedic Surgery [address] [facility] Advanced Medicine 6th [place] [address] [place] [address] Luciano Nelson MD Encounter for examination of normal volunteer in research study 08/15/2024 12:23 AM CASH ANALYST - 08/15/2024 1:52 AM [facility] Emergency Department [address] [place] [address] Malingering (Primary Dx); Swelling Discharge Disposition: Discharge to home or self care 08/12/2024 8:23 PM CASH ANALYST - 08/14/2024 1:56 PM CASH ANALYST Hospital Encounter [address] [place] [address] Batsheva Portillo MD Li, MD Lucille Garcia, MD Russ COVID-19 (Primary Dx); Recurrent syncope; Chest pain, unspecified type; Anemia, unspecified type; Elevated AST (SGOT); Elevated ALT measurement; Nonintractable headache, unspecified chronicity pattern, unspecified headache type Discharge Disposition: Discharge to home or self care 08/11/2024 3:49 AM CASH ANALYST - 08/11/2024 4:35 AM CASH ANALYST Emergency [facility] Emergency Department [address] [place] [phone] Abdiel Hawkins MD Coronavirus infection (Primary Dx); Lightheadedness Discharge Disposition: Discharge to home or self care 08/08/2024 9:58 PM CASH ANALYST - 08/08/2024 11:12 PM [facility] Emergency [facility] Emergency Department [address] [place] [phone] Karlo Gatica MD COVID (Primary Dx); Dehydration; Syncope, unspecified syncope type Discharge Disposition: Discharge to home or self care 08/07/2024 [facility] Eligibility Review [facility] Community Health Worker [address] [facility] [address] [place] [address] Zurita Darlene, [place] 08/06/2024 9:50 AM CASH ANALYST - 08/06/2024 12:23 PM [facility] Emergency [facility] Emergency Department [address] [place] [phone] Jassi Daniels MD Coronavirus infection (Primary Dx) Discharge Disposition: Discharge to home or self care 08/02/2024 12:46 PM CASH ANALYST - 08/02/2024 1:16 PM [facility] Emergency [facility] Emergency Department [address] [place] [phone] Gee Moran MD Chronic right shoulder pain (Primary Dx) Discharge Disposition: Discharge to home or self care 08/01/2024 2:00 AM CASH ANALYST - 08/01/2024 3:17 AM [facility] Emergency [facility] Emergency Department [address] [place] [phone] Chronic right shoulder pain (Primary Dx); Encounter for medication refill Discharge Disposition: Discharge to home or self care 07/29/2024 9:38 PM CASH ANALYST - 07/29/2024 11:38 PM [facility] Emergency [facility] Emergency Department [address] [place] [phone] Cindy Hendricks MD Injury of right rotator cuff, subsequent encounter (Primary Dx) Discharge Disposition: Discharge to home or self care 07/24/2024 1:00 PM CASH ANALYST Office [facility] [address] [facility] 4th Floor [address] [place] [phone] Right anterior shoulder pain (Primary Dx) 07/24/2024 Documentation [facility] [address] [facility] [address] [place] [phone] Cherie Ramirez BRONZE PLATER Social Work Services 07/19/2024 Documentation [facility] [address] [facility] [address] [place] [address] Cherie Ramirez LCSW Social Work Services 06/26/2024 Orders Only [facility] Orthopaedic Surgery [address] [facility] 6th [place] [address] [place] [phone] Michael Corona MD Encounter for examination of [...] pur e alcohol) [facility] Utilities Answer Date Recorded In the past 12 months has [employer], gas, oil, or water Team[employer] threatened to shut off services in your home? Patient declined 08/14/2024 Social Connection and Isolation Panel [NHANES] A nswer Date Recorded In a typical week, how many times do you talk on the phone with family, friends, or neighbors? Patient declined 08/14/2024 How often do you get togethe r with friends or relatives? Patient declined 08/14/2024 How often do you attend islam or latter day serv ices? Patient declined [...] time in the past 12 m [place] [place], were you homeless or living in a prison (including now)? Patient declined 08/14/2024 Personal Safety Answer Date Recorded Have you ever been in or are you currently in a harmful physical or emotional relationship or is someone making you feel afraid or unsafe? Denies 09/17/2024 Sex and Gender Information Value Date Recorded Sex Assigned at Not on file Legal Sex Male 9:25 PM CASH ANALYST Gender Identity Not on file Sexual Orientation Straight 11/18/2022 7: 07 PM CDT Obstetrics History Last Filed Vital Signs Vital Sign Reading Time Taken Comments Blood Pressure 109/73 09/17/2024 12:37 PM CASH ANALYST Pulse 69 09/17/2024 12:37 PM CASH ANALYST Temperature 36.5 C (97.7 F) 09/17/2024 10:26 AM CASH ANALYST Respiratory Rate 16 09/17/2024 12:37 PM CASH ANALYST Oxygen Saturation 98% 09/17/2024 12:37 PM CASH ANALYST Inhaled Oxygen Concentration - - Weight 74.8 kg (165 lb) 09/17/2024 10:26 AM CASH ANALYST Height 172.7 cm (5' 8 ) 09/17/2024 10:26 AM CASH ANALYST Body Mass Index 25.09 09/17/2024 10:26 AM CASH ANALYST Plan of Treatment Health Maintenance Due Date [...] Diagnosis Comments EGFR STAT 09/11/2024 9:10 PM CASH ANALYST DIFFERENTIAL AUTO STAT 09/11/2024 9:1 0 PM CASH ANALYST PRO B-TYPE NATRIURETIC PEPTIDE STAT 09/11/2024 9:10 PM CASH ANALYST COMPREHENSIVE METABOLIC PANEL STAT 09/11/2024 9:10 PM CASH ANALYST CBC WITH AUTO DIFFERENTIAL STAT 09/11/2024 9:10 PM CASH ANALYST EGFR STAT 09/07/2024 2:59 AM CASH ANALYST DIFFERENTIAL AUTO STAT 09/07/2024 2:5 9 AM CASH ANALYST BASIC METABOLIC PANEL STAT 09/07/2024 2:59 AM CASH ANALYST CBC WITH AUTO DIFFERENTIAL STAT 09/07/2024 2:59 AM CASH ANALYST US VEIN DUPLEX LOWER EXTREMITY BILATERAL COMPLETE ED 09/03/2024 7:37 PM CASH ANALYST MRI SHOULDER RIGHT WO CONTRAST Schedule Routine, Read Routine (OP Routine) 09/02/2024 9:06 AM CASH ANALYST Right anterior shoulder pain XR ANKLE RIGHT 2 VIEWS ED 09/01/2024 9:33 PM CASH ANALYST XR TIBIA FIBULA RIGHT2 VIEWS ED 09/01/2024 8:37 AM CASH ANALYST XR ANKLE RIGHT 3 OR MORE VIEWS ED 08/31/2024 10:35 PM CASH ANALYST XR FOOT RIGHT 3 OR MORE VIEWS ED 08/31/2024 10:34 PM CASH ANALYST EGFR STAT 08/23/2024 2:33 AM CASH ANALYST DIFFERENTIAL AUTO STAT 08/23/2024 2:3 3 AM CASH ANALYST PRO B-TYPE NATRIURETIC PEPTIDE STAT 08/23/2024 2:33 AM CASH ANALYST COMPREHENSIVE METABOLIC PANEL STAT 08/23/2024 2:33 AM CASH ANALYST CBC WITH AUTO DIFFERENTIAL STAT 08/23/2024 2:33 AM CASH ANALYST SEPSIS LACTATE WITH REFLEX Routine 08/23/2024 2:33 AM CASH ANALYST BLOOD CULTURE Routine 08/23/2024 2:33 AM CASH ANALYST BLOOD CULTURE Routine 08/23/2024 2:33 AM CASH ANALYST ECG 12-LEAD STAT 08/23/2024 2:32 AM CASH ANALYST EGFR STAT 08/21/2024 12:35 AM CASH ANALYST DIFFERENTIAL AUTO STAT 08/21/2024 12: 35 AM CASH ANALYST CRP (ACUTE PHASE) STAT 08/21/2024 12: 35 AM CASH ANALYST ERYTHROCYTE SEDIMENTATION RATE STAT 08/21/2024 12:35 AM CASH ANALYST BASIC METABOLIC PANEL STAT 08/21/2024 12:35 AM CASH ANALYST CBC WITH AUTO DIFFERENTIAL STAT 08/21/2024 12:35 AM CASH ANALYST STREPTOCOCCUS GROUP A PCR STAT 08/20/2024 9:19 AM CASH ANALYST RESPIRATORY PATHOGEN PANEL Routine 08/20/2024 9:19 AM CASH ANALYST D-DIMER, QUANTITATIVE STAT 08/15/2024 1:08 AM CASH ANALYST PRO B-TYPE NATRIURETIC PEPTIDE STAT 08/14/2024 9:59 PM CASH ANALYST EGFR STAT 08/14/2024 9:59 PM CASH ANALYST DIFFERENTIAL AUTO STAT 08/14/2024 9:5 9 PM CASH ANALYST LIPASE STAT 08/14/2024 9:59 PM CASH ANALYST COMPREHENSIVE METABOLIC PANEL STAT 08/14/2024 9:59 PM CASH ANALYST CBC WITH AUTO DIFFERENTIAL STAT 08/14/2024 9:59 PM CASH ANALYST TRANSTHORACIC ECHO (TTE) COMPLETE W DOPPLER/CF WO CONTRAST Routine 08/14/2024 11:39 AM CASH ANALYST HEPATIC FUNCTION PANEL Routine 08/13/2024 5:30 AM CASH ANALYST EGFR Routine 08/13/2024 5:30 AM CASH ANALYST CBC WITHOUT DIFFERENTIAL Routine 08/13/2024 5:30 AM CASH ANALYST PHOSPHORUS Routine 08/13/2024 5:30 AM CASH ANALYST MAGNESIUM Routine 08/13/2024 5:30 AM CASH ANALYST BASIC METABOLIC PANEL Routine 08/13/2024 5:30 AM CASH ANALYST FERRITIN Routine 08/13/2024 5:30 AM CASH ANALYST DRUGS OF ABUSE SCREEN, URINE WITH REFLEX CONFIRMATION Routine 08/13/2024 12:15 AM CASH ANALYST URINALYSIS AND REFLEX TO MICROSCOPIC AND CULTURE STAT 08/13/2024 12:[address] CHEST PE W CONTRAST ED 08/12/2024 11:48 PM CASH ANALYST US VEIN DUPLEX LOWER EXTREMITY BILATERAL COMPLETE ED 08/12/2024 11:46 PM CASH ANALYST US RUQ ED 08/12/2024 11:38 PM CASH ANALYST ADD ON LAB TEST Add-On 08/12/2024 10:[address] HEAD AND CERVICAL SPINE WO CONTRAST ED 08/12/2024 10:20 PM CASH ANALYST D-DIMER, QUANTITATIVE STAT 08/12/2024 10:05 PM CASH ANALYST PROTIME-INR STAT 08/12/2024 10:05 PM CASH ANALYST ADD ON LAB TEST Add-On 08/12/2024 9:53 PM CASH ANALYST ADD ON LAB TEST Add-On 08/12/2024 9:53 PM CASH ANALYST ADD ON LAB TEST Add-On 08/12/2024 9:53 PM CASH ANALYST ADD ON LAB TEST Add-On 08/12/2024 9:53 PM CASH ANALYST ADD ON LAB TEST Add-On 08/12/2024 9:53 PM CASH ANALYST ADD ON LAB TEST Add-On 08/12/2024 9:53 PM CASH ANALYST ADD ON LAB TEST Add-On 08/12/2024 9:53 PM CASH ANALYST ETHANOL STAT 08/12/2024 9:52 PM CASH ANALYST TROPONIN T HIGH-SENSITIVITY 2-HOUR Timed 08/12/2024 9:52 PM CASH ANALYST ACETAMINOPHEN LEVEL STAT 08/12/2024 9 :13 PM CASH ANALYST HEPATITIS PANEL, ACUTE STAT 08/12/2024 9:13 PM CASH ANALYST PRO B-TYPE NATRIURETIC PEPTIDE STAT 08/12/2024 8:08 PM CASH ANALYST THYROID FUNCTION CASCADE STAT 08/12/2024 8:08 PM CASH ANALYST FOLATE STAT 08/12/2024 8:08 PM CASH ANALYST IRON PROFILE W/ IBC STAT 08/12/2024 8 :08 PM CASH ANALYST VITAMIN B12 STAT 08/12/2024 8:08 PM CASH ANALYST MAGNESIUM STAT 08/12/2024 8:08 PM CASH ANALYST PHOSPHORUS STAT 08/12/2024 8:08 PM CASH ANALYST EGFR STAT 08/12/2024 8:08 PM CASH ANALYST DIFFERENTIAL AUTO STAT 08/12/2024 8:0 8 PM CASH ANALYST TROPONIN T HIGH-SENSITIVITY SERIES (BASELINE, 2HR, 4HR, 6HR) STAT 08/12/2024 8:08 PM CASH ANALYST COMPREHENSIVE METABOLIC PANEL STAT 08/12/2024 8:08 PM CASH ANALYST CBC WITH AUTO DIFFERENTIAL STAT 08/12/2024 8:08 PM CASH ANALYST XR CHEST PA LATERAL 2 VIEWS ED 08/12/2024 7:27 PM CASH ANALYST ECG 12-LEAD STAT 08/12/2024 6:48 PM CASH ANALYST XR CHEST PA LATERAL 2 VIEWS ED 08/11/2024 2:02 AM CASH ANALYST ECG 12-LEAD STAT 08/11/2024 1:43 AM CASH ANALYST XR CHEST PA LATERAL 2 VIEWS ED 08/08/2024 10:[address] HEAD WO CONTRAST ED 08/08/2024 1 0:34 PM CASH ANALYST ECG 12-LEAD STAT 08/08/2024 8:56 PM CASH ANALYST RESPIRATORY PATHOGEN PANEL Routine 08/06/2024 9:59 AM CASH ANALYST from Last 3 Months Results * eGFR (09/11/2024 9:10 PM CASH ANALYST) eGFR >90 >=60 mL/min/1. 73 m2 Comment: [...] last reviewed 2021. Blood 09/11/2024 9:10 PM CASH ANALYST 09/11/2024 9:30 PM CASH ANALYST us Salena Crawley MD LAB BLOOD ORDERABLES Fin al Result [facility] [address] Department [place] [address] * Differential, auto (09/11/2024 9:10 PM CASH ANALYST) Neutrophil abs 3.8 1.5 - 6.5 K/cumm [...] 2017. Basophil pct 0.5 % [facility] Comment: Interpretive Data Percent cell count reference ranges are not reported, since discordance with absolute values may lead to misinterpretation of CBC data. Current Interpretive Data was last revised on 2017. Blood 09/11/2024 9:10 PM CASH ANALYST 09/11/2024 9:30 PM CASH ANALYST us Salena Crawley MD LAB BLOOD ORDERABLES Fin al Result [facility] [address] Department [place] [address] * Pro B-type natriuretic peptide (09/11/2024 9:10 PM CASH ANALYST) NT-proBNP <36 <=300 pg/mL Comment: Interpretive Comments: [...] Revised Date: 2018. Blood 09/11/2024 9:10 PM CASH ANALYST 09/11/2024 9:30 PM CASH ANALYST us Salena Crawley MD LAB BLOOD ORDERABLES Fin al Result [facility] [address] Department [place] [address] * CBC with auto differential (09/11/2024 9:10 PM CASH ANALYST) WBC 5.7 3.8 - 9.9 K/cumm Hgb [...] ([facility]) Blood 09/11/2024 9:10 PM CASH ANALYST 09/11/2024 9:30 PM CASH ANALYST us Salena Crawley MD LAB BLOOD ORDERABLES Fin al Result [facility] [address] Department [place] [address] * (ABNORMAL) Comprehensive metabolic panel (09/11/2024 9:10 PM CASH ANALYST) Sodium 142 135 - 145 mmol/L Potassium, [...] Hemolyzed S pecimen Blood 09/11/2024 9:10 PM CASH ANALYST 09/11/2024 9:30 PM CASH ANALYST us Salena Crawley MD LAB BLOOD ORDERABLES Fin al Result [facility] [address] Department [place] [address] * eGFR (09/07/2024 2:59 AM CASH ANALYST) eGFR >90 >=60 mL/min/1. 73 m2 Comment: [...] last reviewed 2021. Blood 09/07/2024 2:59 AM CASH ANALYST 09/07/2024 3:02 AM CASH ANALYST us Jair Armendariz MD LAB BLOOD ORDERABLES Final Result Performing Organization Address [facility]/ZIP Co de Phone Number [facility] [address] Department [place] [address] * Differential, auto (09/07/2024 2:59 AM CASH ANALYST) Neutrophil abs 3.0 1.5 - 6.5 K/cumm Imm gran abs 0.0 0.0 - 0.1 K/cumm [facility] Lymphocyte abs 2.1 0.8 - 3.3 K/cumm [facility] Monocyte abs 0.4 0.2 - 0.8 K/cumm [facility] Eosinophil abs 0.2 0.0 - 0.5 K/cumm [facility] Basophil abs 0.0 0.0 - 0.1 K/cumm [facility] Neutrophil pct 51.2 % [facility] Comment: Interpretive Data Percent cell count reference ranges are not reported, since discordance with absolute values may lead to misinterpretation of CBC data. Current Interpretive Data was last revised on 2017. Imm gran pct 0.3 % [facility] Comment: Interpretive Data Percent cell count reference ranges are not reported, since discordance with absolute values may lead to misinterpretation of CBC data. Current Interpretive Data was last revised on 2017. Lymphocyte pct 36.9 % [facility] Comment: Interpretive Data Percent cell count reference ranges are not reported, since discordance with absolute values may lead to misinterpretation of CBC data. Current Interpretive Data was last revised on 2017. Monocyte pct 6.9 % [facility] Comment: Interpretive Data Percent cell count reference ranges are not reported, since discordance with absolute values may lead to misinterpretation of CBC data. Current Interpretive Data was last revised on 2017. Eosinophil pct 4.0 % [facility] Comment: Interpretive Data Percent cell count reference ranges are not reported, since discordance with absolute values may lead to misinterpretation of CBC data. Current Interpretive Data was last revised on 2017. Basophil pct 0.7 % [facility] Comment: Interpretive Data Percent cell count reference ranges are not reported, since discordance with absolute values may lead to misinterpretation of CBC data. Current Interpretive Data was last revised on 2017. Blood 09/07/2024 2:59 AM CASH ANALYST 09/07/2024 3:02 AM CASH ANALYST us Jair Armendariz MD LAB BLOOD ORDERABLES Final Result [facility] [address] [facility] Department [place] [address] * (ABNORMAL) CBC with auto differential (09/07/2024 2:59 AM CASH ANALYST) WBC 5.8 3.8 - 9.9 K/cumm Hgb 12.3(L) 13.0 - 17.5 g/dL [facility] Hct 37.2(L) 38.9 - 50.3 % [facility] Plt 163 150 - 400 K/cumm [facility] MPV 10.4 9.1 - 12.3 fL [facility] RBC 4.17(L) 4.30 - 5.80 M/cumm [facility] MCV 89.2 81.3 - 96.4 fL [facility] MCH 29.5 27.1 - 33.3 pg [facility] MCHC 33.1 32.3 - 35.7 g/dL [facility] RDW CV 12.6 11.1 - 14.9 % [facility] RDW SD 41.1 35.7 - 48.1 fL [facility] NRBC abs 0.00 0.00 - 0.01 K/cumm [facility] Blood 09/07/2024 2:59 AM CASH ANALYST 09/07/2024 3:02 AM CASH ANALYST us Jair Armendariz MD LAB BLOOD ORDERABLES Final Result [facility] [address] [facility] Department [place] [address] * Basic metabolic panel (09/07/2024 2:59 AM CASH ANALYST) Pathologist [facility] [place] Sodium 143 135 - 145 mmol/L Potassium, pl 4.4 3.3 - 4.9 mmol/L [facility] Chloride 109 97 - 110 mmol/L [facility] CO2 25 22 - 32 mmol/L [facility] Anion gap 9 2 - 15 mmol/L [facility] BUN 24 6 - 25 mg/dL [facility] Creatinine 0.87 0.80 - 1.30 mg/dL [facility] Glucose 86 70 - 199 mg/dL [facility] Comment: Interpretive Data Fasting glucose >/= 126 [...] Calcium 9.1 8.5 - 10.3 mg/dL [facility] Blood 09/07/2024 2:59 AM CASH ANALYST 09/07/2024 3:02 AM CASH ANALYST us Jair Armendariz MD LAB BLOOD ORDERABLES Final Result [facility] Department [place] [address] * US Vein Duplex Lower Extremity Bilateral Complete (09/03/2024 7:37 PM CASH ANALYST) Anatomical Region Laterality Modality Vascular Bilateral Ultrasound 09/04/2024 2:26 PM CASH ANALYST Impressions 09/04/2024 2:26 PM CASH ANALYST 1. No evidence of DVT in the lower extremities bilaterally. 2. Evidence of pulsatile venous flow. This may suggest increased intravascular volume or right-sided valvular heart disease. Clinical correlation suggested. 3. No change when compared to previous studies. Electronically signed by: Lv Smart M.D. Narrative 09/04/2024 2:26 PM CASH ANALYST Lower Extremity Vein Duplex Bilateral DATE: 09/03/2024 [...] Shoulder Right WO Contrast (09/02/2024 9:06 AM CASH ANALYST) Anatomical Region Laterality Modality Upper Extremities Right Magnetic Reson ance 09/02/2024 11:0 8 AM CASH ANALYST Impressions 09/02/2024 12:42 PM CASH ANALYST 1. Minimal right rotator cuff tendinopathy without [...] Gudelia Berger MD Narrative 09/02/2024 12:42 PM CASH ANALYST EXAMINATION: 1. MRI right shoulder without contrast [...] Ankle Right 2 Views (09/01/2024 9:33 PM CASH ANALYST) Anatomical Region Laterality Modality Lower Extremities, Ankle Right Compute d Radiography 09/02/2024 8:13 AM CASH ANALYST Impressions 09/02/2024 8:13 AM CASH ANALYST There is mild swelling about the right ankle. There is a fracture of the base of 5th metacarpal, similar to prior. No additional fractures. The joints are normal. Electronically signed by: Brice Mantilla M.D. Narrative 09/02/2024 8:13 AM CASH ANALYST EXAMINATION: XR ANKLE RIGHT 2 VIEWS HISTORY: [...] Fibula Right 2 views (09/01/2024 8:37 AM CASH ANALYST) Anatomical Region Laterality Modality Lower Extremities, Lower Leg Right Com puted Radiography 09/01/2024 8:45 AM CASH ANALYST Impressions 09/01/2024 8:45 AM CASH ANALYST No acute fracture of the tibia or fibula. Alignment is normal. Electronically signed by: Greg Joy M.D. Narrative 09/01/2024 8:45 AM CASH ANALYST EXAMINATION: XR TIBIA FIBULA RIGHT2 VIEWS HISTORY: Pain s/p twisting injury Procedure Note Greg Joy MD - 09/01/2024 EXAMINATION: XR TIBIA FIBULA RIGHT2 VIEWS HISTORY: Pain s/p twisting injury IMPRESSION: No acute fracture of the tibia or fibula. Alignment is normal. Electronically signed by: Greg Joy M.D. Terry [facility]QUES [facility] XR PROCEDURES F inal Result * XR Ankle Right 3 or More Views (08/31/2024 10:35 PM CASH ANALYST) Anatomical Region Laterality Modality Lower Extremities, Ankle Right Compute d Radiography 09/01/2024 11:1 6 AM CASH ANALYST Impressions 09/01/2024 11:16 AM CASH ANALYST Comparison is made to a prior study [...] Ness Liz M.D. Narrative 09/01/2024 11:16 AM CASH ANALYST EXAMINATION: XR ANKLE RIGHT 3 OR MORE [...] 3 or More Views (08/31/2024 10:34 PM CASH ANALYST) Anatomical Region Laterality Modality Lower Extremities, Foot Right Computed Radiography 09/01/2024 11:1 6 AM CASH ANALYST Impressions 09/01/2024 11:16 AM CASH ANALYST Comparison is made to a prior study [...] Ness Liz M.D. Narrative 09/01/2024 11:16 AM CASH ANALYST EXAMINATION: XR ANKLE RIGHT 3 OR MORE [...] Sepsis Lactate w/ Reflex (08/23/2024 2:33 AM CASH ANALYST) Sepsis Lactate 0.7 0.7 - 2.0 mmol/L Blood 08/23/2024 2:33 AM CASH ANALYST 08/23/2024 2:46 AM CASH ANALYST Salena Crawley MD LAB BLOOD ORDERABLES Fin al Result [facility] [address] Department [place] [address] * eGFR (08/23/2024 2:33 AM CASH ANALYST) eGFR >90 >=60 mL/min/1. 73 m2 Comment: [...] last reviewed 2021. Blood 08/23/2024 2:33 AM CASH ANALYST 08/23/2024 3:24 AM CASH ANALYST us Salena Crawley MD LAB BLOOD ORDERABLES Fin al Result [facility] [address] Department [place] [address] * Differential, auto (08/23/2024 2:33 AM CASH ANALYST) Neutrophil abs 3.1 1.5 - 6.5 K/cumm [...] on 2017. Basophil pct 1.0 % [facility] Comment: Interpretive Data Percent cell count reference ranges are not reported, since discordance with absolute values may lead to misinterpretation of CBC data. Current Interpretive Data was last revised on 2017. Blood 08/23/2024 2:33 AM CASH ANALYST 08/23/2024 3:24 AM CASH ANALYST us Salena Crawley MD LAB BLOOD ORDERABLES Fin al Result [facility] [address] Department [place] [address] * Pro B-type natriuretic peptide (08/23/2024 2:33 AM CASH ANALYST) NT-proBNP <36 <=300 pg/mL Comment: Interpretive Comments: [...] Revised Date: 2018. Blood 08/23/2024 2:33 AM CASH ANALYST 08/23/2024 3:24 AM CASH ANALYST Salena Crawley MD LAB BLOOD ORDERABLES Fin al Result Performing Organization Address [facility]/ZIP Co de Phone Number [facility] [address] [place] [address] * (ABNORMAL) CBC with auto differential (08/23/2024 2:33 AM CASH ANALYST) [facility] WBC 5.8 3.8 - 9.9 K/cumm Hgb [...] ([facility]) Blood 08/23/2024 2:33 AM CASH ANALYST 08/23/2024 3:24 AM CASH ANALYST Salena Crawley MD LAB BLOOD ORDERABLES Fin al Result Performing Organization Address [facility]/ZIP Co de Phone Number [facility] [address] [place] [address] * Blood culture Blood (08/23/2024 2:33 AM CASH ANALYST) Report Final Report: No growth Blood 08/23/2024 2:33 AM CASH ANALYST 08/23/2024 2:47 AM CASH ANALYST Narrative [facility] - 08/28/2024 7:01 AM CASH ANALYST From a different site than #1. Collection->Peripheral [...] organism identification may be performed using the Crossfader Blood Culture Identification panel. This assay detects microbial DNA in a blood culture broth. This assay has been cleared by the [place] Food and Drug Administration and its performance characteristics have been verified by the [facility]. Interpretive data was last revised on September 03, 2022. Salena Crawley MD LAB MICROBIOLOGY - [facility] ORDERABLES Final Result [facility] [address] Department [place] [address] * Blood culture Blood (08/23/2024 2:33 AM CASH ANALYST) Report Final Report: No growth Blood 08/23/2024 2:33 AM CASH ANALYST 08/23/2024 2:48 AM CASH ANALYST Narrative [facility] - 08/28/2024 7:01 AM CASH ANALYST Collection->Peripheral Interpretive Data 1. Blood cultures are incubated and monitored continuously for 5 days (120 hours). The first negative report is issued within 24 hours of receipt in the laboratory. 2. All positive cultures are resulted and called to physicians/care providers as soon as they are detected. 3. A rapid molecular test for organism identification may be performed using the Crossfader Blood Culture Identification panel. This assay detects microbial DNA in a blood culture broth. This assay has been cleared by the [place] Food and Drug Administration and its performance characteristics have been verified by the [facility]. Interpretive data was last revised on September 03, 2022. Salena Crawley MD LAB MICROBIOLOGY - GENER AL ORDERABLES Final Result [facility] [address] Department [place] [address] * (ABNORMAL) Comprehensive metabolic panel (08/23/2024 2:33 AM CASH ANALYST) Sodium 140 135 - 145 mmol/L Potassium, [...] Hemolyzed S pecimen Blood 08/23/2024 2:33 AM CASH ANALYST 08/23/2024 3:24 AM CASH ANALYST Salena Crawley MD LAB BLOOD ORDERABLES Fin al Result Performing Organization Address [facility]/ZIP Co de Phone Number JADA [facility] [address] Department [place] [address] * ECG 12 lead (08/23/2024 2:32 AM CASH ANALYST) 08/23/2024 2:32 AM CASH ANALYST Narrative [facility] - 08/24/2024 4:38 PM CASH ANALYST Vent Rate: 64 bpm RR Interval: 935 msec MD Interval: 174 msec QRS Duration: 109 msec QT Interval: 409 msec QTC Interval: 418 msec P-R-T Graham: 68 - 81 - 41 degrees IMPRESSION: SINUS RHYTHM NORMAL ECG Electronically Signed By: Andrea Moralez MD [facility] Salena Crawley MD ECG ORDERABLES Final Re sult Performing Organization Address [facility] Co de Phone Number [facility] [employer] [facility] * eGFR (08/21/2024 12:35 AM CASH ANALYST) eGFR >90 >=60 mL/min/1. 73 m2 Comment: [...] reviewed 2021. Blood 08/21/2024 12:3 5 AM CASH ANALYST 08/21/2024 12:40 AM CASH ANALYST us Magalis MARQUES LAB BLOOD ORDERABLE S Final Result [address] Department [place] [address] * Differential, auto (08/21/2024 12:35 AM CASH ANALYST) Pathologist [facility] [place] Neutrophil abs 3.7 1.5 - 6.5 K/cumm Imm gran abs 0.0 0.0 - 0.1 K/cumm [facility] Lymphocyte abs 2.2 0.8 - 3.3 K/cumm [facility] Monocyte abs 0.6 0.2 - 0.8 K/cumm [facility] Eosinophil abs 0.3 0.0 - 0.5 K/cumm [facility] Basophil abs 0.1 0.0 - 0.1 K/cumm [facility] Neutrophil pct 54.1 % [facility] Comment: Interpretive Data Percent cell count reference ranges are not reported, since discordance with absolute values may lead to misinterpretation of CBC data. Current Interpretive Data was last revised on 2017. Imm gran pct 0.1 % [facility] Comment: Interpretive Data Percent cell count reference ranges are not reported, since discordance with absolute values may lead to misinterpretation of CBC data. Current Interpretive Data was last revised on 2017. Lymphocyte pct 32.5 % [facility] Comment: Interpretive Data Percent cell count reference ranges are not reported, since discordance with absolute values may lead to misinterpretation of CBC data. Current Interpretive Data was last revised on 2017. Monocyte pct 8.3 % [facility] Comment: Interpretive Data Percent cell count reference ranges are not reported, since discordance with absolute values may lead to misinterpretation of CBC data. Current Interpretive Data was last revised on 2017. Eosinophil pct 4.3 % [facility] Comment: Interpretive Data Percent cell count reference ranges are not reported, since discordance with absolute values may lead to misinterpretation of CBC data. Current Interpretive Data was last revised on 2017. Basophil pct 0.7 % [facility] Comment: Interpretive Data Percent cell count reference ranges are not reported, since discordance with absolute values may lead to misinterpretation of CBC data. Current Interpretive Data was last revised on 2017. Blood 08/21/2024 12:3 5 AM CASH ANALYST 08/21/2024 12:40 AM CASH ANALYST Magalis MARQUES LAB BLOOD ORDERABLE S Final Result Performing Organization Address City/[facility]/ZIP Co de Phone Number [address] [place] [address] * (ABNORMAL) CBC with auto differential (08/21/2024 12:35 AM CASH ANALYST) WBC 6.9 3.8 - 9.9 K/cumm Hgb 12.1(L) 13.0 - 17.5 g/dL [facility] Hct 36.8(L) 38.9 - 50.3 % [facility] Plt 200 150 - 400 K/cumm [facility] MPV 10.1 9.1 - 12.3 fL [facility] RBC 4.14(L) 4.30 - 5.80 M/cumm [facility] MCV 88.9 81.3 - 96.4 fL [facility] MCH 29.2 27.1 - 33.3 pg [facility] MCHC 32.9 32.3 - 35.7 g/dL [facility] RDW CV 12.8 11.1 - 14.9 % [facility] RDW SD 41.5 35.7 - 48.1 fL [facility] NRBC abs 0.00 0.00 - 0.01 K/cumm [facility] Blood 08/21/2024 12:3 5 AM CASH ANALYST 08/21/2024 12:40 AM CASH ANALYST Magalis MARQUES LAB BLOOD ORDERABLE S Final Result [address] [place] [address] * Erythrocyte sedimentation rate (08/21/2024 12:35 AM CASH ANALYST) [facility] Erythrocyte sedimentation rate 5 1 - 15 mm/hr [facility] Blood 08/21/2024 12:3 5 AM CASH ANALYST 08/21/2024 12:40 AM CASH ANALYST Magalis MARQUES LAB BLOOD ORDERABLE S Final Result Performing Organization Address City/[facility]/ZIP Co de Phone Number [address] [place] [address] * CRP (acute phase) (08/21/2024 12:35 AM CASH ANALYST) [facility] CRP <3.5 <=10.0 mg/L Blood 08/21/2024 12:3 5 AM CASH ANALYST 08/21/2024 12:40 AM CASH ANALYST Magalis MARQUES LAB BLOOD ORDERABLE S Final Result Performing Organization Address [facility] Co de Phone Number [address] [address] * (ABNORMAL) Basic metabolic panel (08/21/2024 12:35 AM CASH ANALYST) [facility] Sodium 140 135 - 145 mmol/L Potassium, pl 4.2 3.3 - 4.9 mmol/L [facility] Chloride 104 97 - 110 mmol/L [facility] CO2 26 22 - 32 mmol/L [facility] Anion gap 10 2 - 15 mmol/L [facility] BUN 34(H) 6 - 25 mg/dL [facility] Creatinine 0.91 0.80 - 1.30 mg/dL [facility] Glucose 96 70 - 199 mg/dL [facility] Comment: Interpretive Data Fasting glucose >/= 126 [...] Calcium 9.1 8.5 - 10.3 mg/dL [facility] Blood 08/21/2024 12:3 5 AM CASH ANALYST 08/21/2024 12:40 AM CASH ANALYST Magalis MARQUES LAB BLOOD ORDERABLE S Final Result Performing Organization Address [facility]/ZIP Co de Phone Number [facility] [address] [facility] Department [place] [address] * Streptococcus Group A PCR Throat (08/20/2024 9:19 AM CASH ANALYST) [facility] Strep A DNA Not Detected Not Detected Comment: This test is performed using the [employer] Xpert Group A Streptococcal Assay. This is [...] the performing laboratory. Throat 08/20/2024 9:19 AM CASH ANALYST 08/20/2024 9:22 AM CASH ANALYST Fei Murray MD LAB MICROBIOLOGY - GENERAL ORDERABLES Final Result Performing Organization Address City/[facility]/ZIP Co de Phone Number [facility] [address] Department [place] [address] [facility] * Respiratory pathogen panel Nasopharyngeal (08/20/2024 9:19 AM CASH ANALYST) Influenza A RNA Not Detected Not Detected [...] B. pertussis DNA Not Detected Not Detected [facility] B. parapertussis DNA Not Detected Not Detected [facility] C. pneumoniae DNA Not Detected Not Detected [facility] M. pneumoniae DNA Not Detected Not Detected [facility] Comment: Interpretive Data The [employer] FilmArray Respiratory Panel (RP2.1) assay is a [...] assay has FDA clearance for testing of COLLEGE PRESIDENT swabs. The performance characteristics of this assay have been determined by [facility]. Current interpretive data was last revised on 2021. Nasopharyngeal 08/20/2024 9: 19 AM CASH ANALYST 08/20/2024 9:22 AM CASH ANALYST Narrative JADA - 08/20/2024 10:22 AM CASH ANALYST Is the Patient experiencing symptoms consistent with COVID?->Yes Surveillance testing for transplant patient?->No Fei Murray MD LAB MICROBIOLOGY - GENERAL ORDERABLES Final Result [facility] [address] Department [place] [address] * (ABNORMAL) D-dimer, quantitative (08/15/2024 1:08 AM CASH ANALYST) D-Dimer 647(H) <=499 ng/mL FEU Comment: Interpretive [...] revised on 2019. Blood 08/15/2024 1:08 AM CASH ANALYST 08/15/2024 1:11 AM CASH ANALYST Maddison Muhammad NP LAB BLOOD ORDERABLES Final Resul t Performing Organization Address [facility] Co de Phone Number [facility] [address] [employer] [place], [place] [id number] * eGFR (08/14/2024 9:59 PM CASH ANALYST) eGFR >90 >=60 mL/min/1. 73 m2 Comment: [...] last reviewed 2021. Blood 08/14/2024 9:59 PM CASH ANALYST 08/14/2024 10:10 PM CASH ANALYST us Abigail Richards MD LAB BLOOD ORDERABLES Final Result Performing Organization Address [facility]/ZIP Co de Phone Number [facility] [address] [employer]. [place] [address] * Differential, auto (08/14/2024 9:59 PM CASH ANALYST) Neutrophil abs 3.7 1.5 - 6.5 K/cumm [...] 2017. Imm gran pct 0.2 % [facility] Comment: Interpretive Data Percent cell count reference ranges are not reported, since discordance with absolute values may lead to misinterpretation of CBC data. Current Interpretive Data was last revised on 2017. Lymphocyte pct 30.2 % [facility] Comment: Interpretive Data Percent cell count reference ranges are not reported, since discordance with absolute values may lead to misinterpretation of CBC data. Current Interpretive Data was last revised on 2017. Monocyte pct 7.6 % [facility] Comment: Interpretive Data Percent cell count reference ranges are not reported, since discordance with absolute values may lead to misinterpretation of CBC data. Current Interpretive Data was last revised on 2017. Eosinophil pct 3.4 % [facility] Comment: Interpretive Data Percent cell count reference ranges are not reported, since discordance with absolute values may lead to misinterpretation of CBC data. Current Interpretive Data was last revised on 2017. Basophil pct 1.1 % [facility] Comment: Interpretive Data Percent cell count reference ranges are not reported, since discordance with absolute values may lead to misinterpretation of CBC data. Current Interpretive Data was last revised on 2017. Blood 08/14/2024 9:59 PM CASH ANALYST 08/14/2024 10:10 PM CASH ANALYST us Abigail Richards MD LAB BLOOD ORDERABLES Final Result Performing Organization Address City/[facility]/ZIP Co de Phone Number [facility] [address] [facility] Department [place] [address] * Pro B-type natriuretic peptide (08/14/2024 9:59 PM CASH ANALYST) NT-proBNP 75 <=300 pg/mL Comment: Interpretive Comments: [...] Revised Date: 2018. Blood 08/14/2024 9:59 PM CASH ANALYST 08/14/2024 10:10 PM CASH ANALYST Abigail Richards MD LAB BLOOD ORDERABLES Final Result Performing Organization Address [facility] Co de Phone Number JADA AGRAWAL [address] [facility] [place] [address] * CBC with auto differential (08/14/2024 9:59 PM CASH ANALYST) WBC 6.5 3.8 - 9.9 K/cumm Hgb 13.3 13.0 - 17.5 g/dL [facility] Hct 39.8 38.9 - 50.3 % [facility] Plt 218 150 - 400 K/cumm [facility] MPV 10.0 9.1 - 12.3 fL [facility] RBC 4.49 4.30 - 5.80 M/cumm [facility] MCV 88.6 81.3 - 96.4 fL [facility] MCH 29.6 27.1 - 33.3 pg [facility] MCHC 33.4 32.3 - 35.7 g/dL [facility] RDW CV 12.7 11.1 - 14.9 % [facility] RDW SD 41.1 35.7 - 48.1 fL [facility] NRBC abs 0.00 0.00 - 0.01 K/cumm [facility] Blood (Blood, Venous) 08/14/2024 9:59 PM CASH ANALYST 08/14/2024 10:10 PM CASH ANALYST Abigail Richards MD LAB BLOOD ORDERABLES Final Result Performing Organization Address [facility] Co de Phone Number [facility] [address] [facility] [place] [address] * Lipase (08/14/2024 9:59 PM CASH ANALYST) Pathologist [facility] [place] Lipase 50 10 - 99 Units/L Blood (Blood, Venous) 08/14/2024 9:59 PM CASH ANALYST 08/14/2024 10:10 PM CASH ANALYST Abigail Richards MD LAB BLOOD ORDERABLES Final Result Performing Organization Address [facility] Co de Phone Number JADA AGRAWAL [address] [facility]. Department [place] [address] * (ABNORMAL) Comprehensive metabolic panel (08/14/2024 9:59 PM CASH ANALYST) Sodium 139 135 - 145 mmol/L Potassium, [...] Units/L [facility] Blood 08/14/2024 9:59 PM CASH ANALYST 08/14/2024 10:10 PM CASH ANALYST us Abigail Richards MD LAB BLOOD ORDERABLES Final Result [facility]ADA [facility]RAW[facility] [address] [facility]. Department [place] [address] * TRANSTHORACIC ECHO (TTE) COMPLETE W DOPPLER/CF WO CONTRAST (08/14/2024 11:39 AM CASH ANALYST) LV EF 55-60 % CONS SCIMAGE Anatomical Region Laterality Modality Ultrasound 08/14/2024 10:0 7 AM CASH ANALYST Narrative 08/14/2024 11:49 AM CASH ANALYST [facility] [address] [place] [address] ECHOCARDIOGRAM Patient Name: LISA MCCOY : 1980 (43y 11m) Gender: M Study Date: 08/14/2024 10:07:30 AM Ht(Inch): 68 Wt(Lb): 173.06 BSA: 1.94 [employer]: [employer]IN[employer] Location: [id number] Order Provider: PHOEBE ADKINS BMI: 26.31 BP: 97/65 Ref Provider: HPOEBE ADKINS - PROCEDURES: Echocardiographic Report: Transthoracic Echocardiogram [...] Jerel Ramirez MD PhD 08/14/2024 11:48:00 AM CASH ANALYST Procedure Note Jerel Ramirez MD PhD - 08/14/2024 [address] [place] [address] [place] [address] ECHOCARDIOGRAM Patient Name: LISA MCCOY : 1980 (43y 11m) Gender: M Study Date: 08/14/2024 10:07:30 AM Ht(Inch): 68 Wt(Lb): 173.06 BSA: 1.94 [employer]: NINFA Location: [id number] Order Provider: PHOEBE ADKINS BMI: 26.31 BP: [...] AV VTI 22.9cm Estimated EF 55-60 % IMCHAEL VTI 2.5cm2 LA Dimension 2D 3.45 cm [...] Jerel Ramirez MD PhD 08/14/2024 11:48:00 AM CASH ANALYST us Phoebe Adkins MD CV ECHO PROCEDURES Final Result * eGFR (08/13/2024 5:30 AM CASH ANALYST) [facility] eGFR >90 >=60 mL/min/1. 73 m2 [...] last reviewed 2021. Blood 08/13/2024 5:30 AM CASH ANALYST 08/13/2024 6:25 AM CASH ANALYST Hossein Juan Adkins MD LAB BLOOD ORDERABLES Final Resul t [facility] [address] Department of Laboratories [place], [place] [id number] * (ABNORMAL) CBC without differential (08/13/2024 5:30 AM CASH ANALYST) [facility] WBC 5.7 3.8 - 9.9 K/cumm Hgb [...] ([facility]) Blood 08/13/2024 5:30 AM CASH ANALYST 08/13/2024 6:25 AM CASH ANALYST us Phoebe Adkins MD LAB BLOOD ORDERABLES Final Resul t Performing Organization Address [facility] Co de Phone Number [place] [id number] [facility] [place] [address] * Phosphorus (08/13/2024 5:30 AM CASH ANALYST) Phosphorus, pl 2.9 2.3 - 4.5 mg/dL Blood 08/13/2024 5:30 AM CASH ANALYST 08/13/2024 6:25 AM CASH ANALYST Phoebe Adkins MD LAB BLOOD ORDERABLES Final Resul t Performing Organization Address [facility] Co de Phone Number [place] [phone] [place] [address] * Magnesium (08/13/2024 5:30 AM CASH ANALYST) Magnesium 1.9 1.4 - 2.5 mg/dL Blood 08/13/2024 5:30 AM CASH ANALYST 08/13/2024 6:25 AM CASH ANALYST us Phoebe Adkins MD LAB BLOOD ORDERABLES Final Resul t Performing Organization Address [facility] Co de Phone Number [place] [id number] Department [place] [address] * Ferritin (08/13/2024 5:30 AM CASH ANALYST) Ferritin 39 30 - 400 ng/mL Blood 08/13/2024 5:30 AM CASH ANALYST 08/13/2024 6:24 AM CASH ANALYST Phoebe Adkins MD LAB BLOOD ORDERABLES Final Resul t Performing Organization Address [facility] de Phone Number [facility] [address] [facility] [place] [address] * (ABNORMAL) Hepatic function panel (08/13/2024 5:30 AM CASH ANALYST) [facility] Bilirubin, total 0.4 0.1 - 1.2 mg/dL [...] ([facility]) Blood 08/13/2024 5:30 AM CASH ANALYST 08/13/2024 6:25 AM CASH ANALYST Russ Adkins MD LAB BLOOD ORDERABLES Final Resul t Performing Organization Address [facility] de Phone Number [facility] [address] [place] [address] * (ABNORMAL) Basic metabolic panel (08/13/2024 5:30 AM CASH ANALYST) [facility] Sodium 140 135 - 145 mmol/L Potassium, [...] ([facility]) Blood 08/13/2024 5:30 AM CASH ANALYST 08/13/2024 6:25 AM CASH ANALYST us Phoebe Adkins MD LAB BLOOD ORDERABLES Final Resul t [facility] [address] Department [place] [address] * Drugs of Abuse Screen, Urine with Reflex Confirmation (08/13/2024 12:15 AM CASH ANALYST) Amphetamine, ur Not Detected CutOff 500ng/mL Comment: [...] on 2017. Urine 08/13/2024 12:1 5 AM CASH ANALYST 08/13/2024 12:26 AM CASH ANALYST Narrative [facility] - 08/13/2024 12:54 AM CASH ANALYST Drug of Abuse screening is performed by immunoassay for medical purposes only. This is not to be used for Pain Management purposes. If Detected, confirmation testing will be performed for Amphetamines, Cocaine, Fentanyl, Methadone, Opiates, Oxycodone or Phencyclidine. us Batsheva Portillo MD LAB URINE ORDERABLES Final Result [facility] [address] Department [place] [address] * (ABNORMAL) Urinalysis reflex to microscopic and culture Urine (08/13/2024 12:15 AM CASH ANALYST) Color, ur Yellow Yellow Clarity, ur Clear [...] tendency for uric acid stone formation. Source: [facility] [place] Current Interpretive Data was last revised on [...] [facility]) Urine 08/13/2024 12:1 5 AM CASH ANALYST 08/13/2024 12:15 AM CASH ANALYST us Batsheva Portillo MD LAB MICROBIOLOGY - GENERAL ORDERABLES Final Result [facility] [address] Department [place] [address] * CT Chest PE (CTA) W Contrast (08/12/2024 11:48 PM CASH ANALYST) Anatomical Region Laterality Modality Body N/A Computed Tomogra phy 08/12/2024 11:4 3 PM CASH ANALYST Impressions 08/13/2024 9:24 AM CASH ANALYST No pulmonary embolism. Electronically signed by: Tari Gavin M.D. Narrative 08/13/2024 9:24 AM CASH ANALYST EXAMINATION: CT CHEST PE (CTA) W CONTRAST [...] Lower Extremity Bilateral Complete (08/12/2024 11:46 PM CASH ANALYST) Anatomical Region Laterality Modality Vascular Bilateral Ultrasound 08/13/2024 12:0 9 PM CASH ANALYST Impressions 08/13/2024 12:09 PM CASH ANALYST 1. No evidence of DVT in the lower extremities bilaterally. 2. Pulsatile venous flow bilaterally. This may suggest increased intravascular volume or right-sided valvular heart disease. Clinical correlation suggested. 3. Prominent lymph nodes in both groins. Electronically signed by: Lv Smart M.D. Narrative 08/13/2024 12:09 PM CASH ANALYST Lower Extremity Vein Duplex Bilateral DATE: 08/12/2024 [...] ult * US RUQ (08/12/2024 11:38 PM CASH ANALYST) Anatomical Region Laterality Modality Abdomen N/A Ultrasound 08/12/2024 10:4 5 PM CASH ANALYST Impressions 08/13/2024 11:42 AM CASH ANALYST 1. Trace perihepatic ascites. 2. Pulsatile portal venous flow and dilated inferior vena cava, which may represent elevated right heart pressures and/or tricuspid regurgitation. For the purposes of environmental quality analyst, this study was initially interpreted by teleradiology. There is no significant discrepancy. Electronically signed by: Saeid Baker MD, PHD Narrative 08/13/2024 11:42 AM CASH ANALYST EXAMINATION: LIMITED ABDOMINAL SONOGRAM HISTORY: Elevated liver [...] and/or tricuspid regurgitation. For the purposes of environmental quality analyst, this study was initially interpreted by teleradiology. There is no significant discrepancy. Electronically signed by: Saeid Baker MD, PHD us Batsheva Portillo MD IM US PROCEDURES Final Res ult * D-Dimer - Add on lab test (08/12/2024 10:29 PM CASH ANALYST) Acceptable Yes Blood 08/12/2024 10:2 9 PM CASH ANALYST 08/12/2024 10:29 PM CASH ANALYST Narrative [facility] - 08/12/2024 10:29 PM CASH ANALYST Name of Test->D-Dimer us Batsheva Portillo MD LAB BLOOD ORDERABLES Final Result [facility] [address] Department [place] [address] * CT Head and Cervical Spine WO Contrast (08/12/2024 10:20 PM CASH ANALYST) Anatomical Region Laterality Modality Head and Neck N/A Computed Tomogra phy 08/12/2024 10:1 3 PM CASH ANALYST Impressions 08/13/2024 7:[address] HEAD: No acute intracranial abnormality or calvarial fracture. CT CERVICAL SPINE: 1. No acute osseous abnormality. 2. Multilevel cervical spondylosis; most pronounced at C5-C6 and C6-C7. For the purposes of environmental quality analyst, this study was initially interpreted by teleradiology. There is no significant discrepancy. Electronically signed by: Zaheer Navas M.D. Narrative 08/13/2024 7:02 AM CASH ANALYST EXAMINATION: 1. CT head without contrast 2. [...] C5-C6 and C6-C7. For the purposes of environmental quality analyst, this study was initially interpreted by teleradiology. There is no significant discrepancy. Electronically signed by: Zaheer Navas M.D. us Batsheva Portillo MD IMG CT PROCEDURES Final Res ult * Protime-INR (08/12/2024 10:05 PM CASH ANALYST) PT 12.8 9.7 - 13.0 sec INR 1.18 0.90 - 1.20 [facility] Comment: Interpretive data Oral anticoagulant therapeutic ranges: Venous thromboembolism prophylaxis or treatment: 2.0-3.0 CARDIOLOGY Standard range: 2.0-3.0 High-intensity range: 2.5-3.5 Refer to indication-specific guidelines for appropriate target ranges for prosthetic heart valve replacement. Current interpretive data was last revised on 2019. Blood 08/12/2024 10:0 5 PM CASH ANALYST 08/12/2024 10:29 PM CASH ANALYST Batsheva Portillo MD LAB BLOOD ORDERABLES Final Result [facility] [address] Department of Laboratories [place], [place] [id number] * (ABNORMAL) D-dimer, quantitative (08/12/2024 10:05 PM CASH ANALYST) D-Dimer 1,783(H) <=499 ng/mL FEU Comment: Interpretive [...] on 2019. Blood 08/12/2024 10:0 5 PM CASH ANALYST 08/12/2024 10:05 PM CASH ANALYST us Batsheva Portillo MD LAB BLOOD ORDERABLES Final Result Performing Organization Address [facility] Co de Phone Number [facility] [address] [facility] [place] [address] * Folate - Add on lab test (08/12/2024 9:53 PM CASH ANALYST) Acceptable Yes Blood 08/12/2024 9:53 PM CASH ANALYST 08/12/2024 9:53 PM CASH ANALYST Narrative [facility] - 08/12/2024 9:54 PM CASH ANALYST Name of Test->Folate us Batsheva Portillo MD LAB BLOOD ORDERABLES Final Result Performing Organization Address [facility] Co de Phone Number [facility] [address] [facility] [place] [address] * Vitamin B12 - Add on lab test (08/12/2024 9:53 PM CASH ANALYST) Acceptable Yes Blood 08/12/2024 9:53 PM CASH ANALYST 08/12/2024 9:54 PM CASH ANALYST Narrative [facility] - 08/12/2024 9:54 PM CASH ANALYST Name of Test->Vitamin B12 Batsheva Portillo MD LAB BLOOD ORDERABLES Final Result Performing Organization Address [facility] Co de Phone Number [facility] [address] [facility] [place] [address] * Iron profile - Add on lab test (08/12/2024 9:53 PM CASH ANALYST) Acceptable Yes Blood 08/12/2024 9:53 PM CASH ANALYST 08/12/2024 9:54 PM CASH ANALYST Narrative [facility] - 08/12/2024 9:54 PM CASH ANALYST Name of Test->Iron profile us Batsheva Portillo MD LAB BLOOD ORDERABLES Final Result [facility] [address] [facility] [place] [address] * NT-Pro BNP - Add on lab test (08/12/2024 9:53 PM CASH ANALYST) Acceptable Yes Blood 08/12/2024 9:53 PM CASH ANALYST 08/12/2024 9:53 PM CASH ANALYST Narrative [facility] - 08/12/2024 9:54 PM CASH ANALYST Name of Test->NT-Pro BNP us Batsheva Portillo MD LAB BLOOD ORDERABLES Final Result Performing Organization Address [facility]/ZIP Co de Phone Number [facility] [address] [place] [address] * TSH reflex Free T4 - Add on lab test (08/12/2024 9:53 PM CASH ANALYST) Acceptable Yes Blood 08/12/2024 9:53 PM CASH ANALYST 08/12/2024 9:53 PM CASH ANALYST Narrative [facility] - 08/12/2024 9:54 PM CASH ANALYST Name of Test->TSH reflex Free T4 us Batsheva Portillo MD LAB BLOOD ORDERABLES Final Result Performing Organization Address City/[facility]/ZIP Co de Phone Number [facility] [address] [place] [address] * Phosphorus - Add on lab test (08/12/2024 9:53 PM CASH ANALYST) Acceptable Yes Blood 08/12/2024 9:53 PM CASH ANALYST 08/12/2024 9:53 PM CASH ANALYST Narrative [facility] - 08/12/2024 9:55 PM CASH ANALYST Name of Test->Phosphorus Batsheva Portillo MD LAB BLOOD ORDERABLES Final Result Performing Organization Address [facility]/ZIP Co de Phone Number [facility] [address] [place] [address] * Magnesium - Add on lab test (08/12/2024 9:53 PM CASH ANALYST) Acceptable Yes Blood 08/12/2024 9:53 PM CASH ANALYST 08/12/2024 9:53 PM CASH ANALYST Narrative [facility] - 08/12/2024 9:55 PM CASH ANALYST Name of Test->Magnesium Batsheva Portillo MD LAB BLOOD ORDERABLES Final Result Performing Organization Address [facility] Co de Phone Number [facility] [address] [place] [address] * Troponin T high-sensitivity 2-hour (08/12/2024 9:52 PM CASH ANALYST) Trop T hs 6 <=22 ng/L Comment: Interpretive Data For further hscTnT resources including the diagnostic algorithm and an aid in interpretation, copy and paste this link: https://nrl.testcatalog.org/show/hsTrop Current Interpretive Data last revised 2020. Trop T hs delta -1 ng/L [facility] Trop T hs interp Insignificant [facility] Blood 08/12/2024 9:52 PM CASH ANALYST 08/12/2024 10:30 PM CASH ANALYST Ace Gonzales MD LAB BLOOD ORDERABLES F inal Result Performing Organization Address City/[facility]/ZIP Co de Phone Number [facility] [address] Department [place] [address] * Ethanol (08/12/2024 9:52 PM CASH ANALYST) Ethanol <10 <=10 mg/dL Comment: Interpretive Data Legal limit of intoxication > or = 80 mg/dL Levels > or = 400 mg/dL are potentially TOXIC. Current interpretive data was last revised on 2018. Blood 08/12/2024 9:52 PM CASH ANALYST 08/12/2024 10:29 PM CASH ANALYST Batsheva Portillo MD LAB BLOOD ORDERABLES Final Result [facility] [address] Department [place] [address] * Hepatitis panel, acute Blood (08/12/2024 9:13 PM CASH ANALYST) Pathologist [facility] [place] Hep A IgM Nonreactive Nonreactive Comment: Interpretive Data: If Hep A IgM Ab is reported as Equivocal, a new sample should be drawn in two weeks for testing. Current interpretive data was last revised on 19. Hep B core IgM Nonreactive Nonreactive [facility] Comment: Interpretive Data If HepB Core IgM [...] ([facility]) Blood 08/12/2024 9:13 PM CASH ANALYST 08/12/2024 9:17 PM CASH ANALYST Batsheva Portillo MD LAB MICROBIOLOGY - GENERAL ORDERABLES Final Result Performing Organization Address [facility] Co de Phone Number [facility] [address] [facility] [place], [place] [id number] * Acetaminophen level (08/12/2024 9:13 PM CASH ANALYST) Acetaminophen <5 <=5 mcg/mL Comment: Interpretive Data Significant hepatic injury may occur and treatment with n-acetyl cysteine is generally recommended if the acetaminophen level exceeds: 150 mcg/mL at 4 hours after ingestion 75 mcg/mL at 8 hours after ingestion 38 mcg/mL at 12 hours after ingestion 19 mcg/mL at 16 hours after ingestion Consult toxicology or poison control ([phone]) for unknown ingestion time. Current interpretive data was last revised 2023. Blood 08/12/2024 9:13 PM CASH ANALYST 08/12/2024 9:17 PM CASH ANALYST us Batsheva Portillo MD LAB BLOOD ORDERABLES Final Result Performing Organization Address [facility] Co de Phone Number [facility] [address] [facility] [place], [place] [id number] * Troponin T high-sensitivity series (baseline, 2hr, 4hr, 6hr) (08/12/2024 8:08 PM CASH ANALYST) Trop T hs 7 <=22 ng/L Comment: Interpretive Data For further hscTnT resources including the diagnostic algorithm and an aid in interpretation, copy and paste this link: https://nrl.testcatalog.org/show/hsTrop Current Interpretive Data last revised 2020. Blood 08/12/2024 8:08 PM CASH ANALYST 08/12/2024 8:23 PM CASH ANALYST us Batsheva Portillo MD LAB BLOOD ORDERABLES Final Result Performing Organization Address [facility] Co de Phone Number [facility] [address] [facility] [place], [place] [id number] * eGFR (08/12/2024 8:08 PM CASH ANALYST) [facility] eGFR >90 >=60 mL/min/1. 73 m2 [...] last reviewed 2021. Blood 08/12/2024 8:08 PM CASH ANALYST 08/12/2024 8:23 PM CASH ANALYST us Batsheva Portillo MD LAB BLOOD ORDERABLES Final Result [facility] [address] Department [place] [address] * Differential, auto (08/12/2024 8:08 PM CASH ANALYST) [facility] Neutrophil abs 3.5 1.5 - 6.5 K/cumm [...] revised on 2017. Blood 08/12/2024 8:08 PM CASH ANALYST 08/12/2024 8:23 PM CASH ANALYST us Batsheva Portillo MD LAB BLOOD ORDERABLES Final Result [facility] [address] Department [place] [address] * Pro B-type natriuretic peptide (08/12/2024 8:08 PM CASH ANALYST) NT-proBNP 60 <=300 pg/mL Comment: Interpretive Comments: [...] Revised Date: 2018. Blood 08/12/2024 8:08 PM CASH ANALYST 08/12/2024 8:23 PM CASH ANALYST us Batsheva Portillo MD LAB BLOOD ORDERABLES Final Result Performing Organization Address [facility] Co de Phone Number [facility] [address] [employer] [place], [place] [phone] * Thyroid Function [place] (08/12/2024 8:08 PM CASH ANALYST) TSH 1.43 0.30 - 4.20 mcIUnit/mL Blood 08/12/2024 8:0 8 PM CASH ANALYST 08/12/2024 8:23 PM CASH ANALYST us Batsheva Portillo MD LAB BLOOD ORDERABLES Final Result Performing Organization Address [facility] Co de Phone Number [facility] [address] [place] [address] * (ABNORMAL) Iron profile w/ IBC (08/12/2024 8:08 PM CASH ANALYST) Pathologist [facility] [place] Iron 46(L) 50 - 150 mcg/dL TIBC 296 250 - 400 mcg/dL [facility] Transferrin saturation 16(L) 20 - 50 % [facility] Blood 08/12/2024 8:08 PM CASH ANALYST 08/12/2024 8:23 PM CASH ANALYST us Batsheva Portillo MD LAB BLOOD ORDERABLES Final Result [facility] [address] Department [place] [address] * (ABNORMAL) CBC with auto differential (08/12/2024 8:08 PM CASH ANALYST) [facility] WBC 6.5 3.8 - 9.9 K/cumm [...] HEALTH) Blood (Blood, Venous) 08/12/2024 8:08 PM CASH ANALYST 08/12/2024 8:23 PM CASH ANALYST us Batsheva Portillo MD LAB BLOOD ORDERABLES Final Result [facility] [address] [facility] [place] [address] * Phosphorus (08/12/2024 8:08 PM CASH ANALYST) Pathologist [facility] [place] Phosphorus, pl 3.1 2.3 - 4.5 mg/dL Blood 08/12/2024 8:08 PM CASH ANALYST 08/12/2024 8:23 PM CASH ANALYST us Batsheva Portillo MD LAB BLOOD ORDERABLES Final Result Performing Organization Address [facility] Co de Phone Number [facility] [address] [facility] [place] [address] * Magnesium (08/12/2024 8:08 PM CASH ANALYST) [facility] Magnesium 2.0 1.4 - 2.5 mg/dL Blood 08/12/2024 8:08 PM CASH ANALYST 08/12/2024 8:23 PM CASH ANALYST us Batsheva Portillo MD LAB BLOOD ORDERABLES Final Result Performing Organization Address [facility] Co de Phone Number [facility] [address] [place] [address] * Folate (08/12/2024 8:08 PM CASH ANALYST) [facility] Folic acid 7.6 >=5.0 ng/mL Blood 08/12/2024 8:08 PM CASH ANALYST 08/12/2024 8:23 PM CASH ANALYST us Batsheva Portillo MD LAB BLOOD ORDERABLES Final Result Performing Organization Address [facility] Co de Phone Number [facility] [address] [facility] [place] [address] * Vitamin B12 (08/12/2024 8:08 PM CASH ANALYST) [facility] Vitamin B12 860 230 - 1,250 pg/mL Blood 08/12/2024 8:08 PM CASH ANALYST 08/12/2024 8:23 PM CASH ANALYST us Batsheva Portillo MD LAB BLOOD ORDERABLES Final Result [facility] [address] Department [place] [address] * (ABNORMAL) Comprehensive metabolic panel (08/12/2024 8:08 PM CASH ANALYST) Sodium 142 135 - 145 mmol/L Potassium, [...] ([facility]) Blood 08/12/2024 8:08 PM CASH ANALYST 08/12/2024 8:23 PM CASH ANALYST us Batsheva Portillo MD LAB BLOOD ORDERABLES Final Result [facility] [address] Department [place] [address] * XR Chest PA Lateral 2 Views (08/12/2024 7:27 PM CASH ANALYST) Anatomical Region Laterality Modality Body, Chest N/A Computed Radiogr aphy 08/13/2024 7:44 AM CASH ANALYST Impressions 08/13/2024 7:44 AM CASH ANALYST There is subtle airspace opacity in the right lung base which may represent pneumonia in the appropriate clinical setting. Alternatively, this may represent atelectasis. No pleural effusion. No pneumothorax. Heart size is normal. Electronically signed by: Tari Gavin M.D. Narrative 08/13/2024 7:44 AM CASH ANALYST EXAMINATION: XR CHEST PA LATERAL 2 VIEWS [...] * ECG 12 lead (08/12/2024 6:48 PM CASH ANALYST) 08/12/2024 6:48 PM CASH ANALYST Narrative [facility] - 08/13/2024 1:41 PM CASH ANALYST Vent Rate: 63 bpm RR Interval: 938 msec MD Interval: 165 msec QRS Duration: 96 msec QT Interval: 378 msec QTC Interval: 386 msec P-R-T Graham: 74 - 81 - 50 degrees IMPRESSION: SINUS RHYTHM POSSIBLE LEFT ATRIAL ENLARGEMENT [-0.1mV P WAVE IN V1/V2] BORDERLINE ECG Electronically Signed By: Jerel Ramirez MD PhD us Batsheva Portillo MD ECG ORDERABLES Final Resul t [facility] * XR Chest Pa Lateral 2 Views (08/11/2024 2:02 AM CASH ANALYST) Anatomical Region Laterality Modality Body, Chest N/A Computed Radiogr aphy 08/11/2024 3:00 AM CASH ANALYST Impressions 08/11/2024 9:05 AM CASH ANALYST Comparison radiograph from 08/08/2024. No consolidation, pleural effusion, or pneumothorax. Cardiomediastinal silhouette within normal limits. Dictated by: Julio Rooney M.D. The radiology attending physician has personally reviewed this study, and had reviewed and/or edited this written report and agrees with it. Electronically signed by: Brice Mantilla M.D. Narrative 08/11/2024 9:05 AM CASH ANALYST EXAMINATION: 2 view chest radiograph Procedure Note [...] sult * ECG 12-LEAD (08/11/2024 1:43 AM CASH ANALYST) Narrative [facility] - 08/11/2024 1:43 AM CASH ANALYST Johnnie Kelly MD 08/11/2024 1:44 AM ECG [...] PA Lateral 2 Views (08/08/2024 10:42 PM CASH ANALYST) Anatomical Region Laterality Modality Body, Chest N/A Computed Radiogr aphy 08/08/2024 11:0 3 PM CASH ANALYST Impressions 08/09/2024 10:05 AM CASH ANALYST The current study is compared with the prior radiograph dated 09/13/2019. Mild bibasilar atelectasis. No consolidation, pleural effusion, or pneumothorax. Cardiomediastinal silhouette within normal limits. Dictated by: Chet Boogie MD The radiology attending physician has personally reviewed this study, and had reviewed and/or edited this written report and agrees with it. Electronically signed by: Steve Arce M.D. Narrative 08/09/2024 10:05 AM CASH ANALYST EXAMINATION: 2 view chest radiograph Procedure Note [...] CT Head WO Contrast (08/08/2024 10:34 PM CASH ANALYST) Anatomical Region Laterality Modality Head and Neck N/A Computed Tomogra phy 08/08/2024 10:4 4 PM CASH ANALYST Impressions 08/09/2024 10:54 AM CASH ANALYST 1. No acute intracranial process. 2. Large burden of cerumen in both external auditory canals which may be impacted. Dictated by: Juancho Marquez MD, Ph.D The radiology attending physician has personally reviewed this study, and had reviewed and/or edited this written report and agrees with it. Electronically signed by: Indio Zambrano M.D. Narrative 08/09/2024 10:54 AM CASH ANALYST EXAMINATION: CT head without contrast HISTORY: 43-year-old [...] ult * ECG 12-LEAD (08/08/2024 8:56 PM CASH ANALYST) Narrative [facility] - 08/08/2024 8:56 PM CASH ANALYST Salena Cobb MD 08/08/2024 8:57 PM ECG [...] Gatica MD ECG ORDERABLES Final Resul t [facility] * (ABNORMAL) Respiratory pathogen panel Nasopharyngeal (08/06/2024 9:59 AM CASH ANALYST) Pathologist [facility] [place] Influenza A RNA Not Detected Not Detected Influenza B RNA Not Detected Not Detected [facility] RSV RNA Not Detected Not Detected [facility] COVID-19 RNA Not Detected Not Detected [facility] Coronavirus 229E RNA Not Detected Not Detected [facility] Coronavirus HKU1 RNA Not Detected Not Detected [facility] Coronavirus NL63 RNA Detected(A) Not Detected [facility] Coronavirus OC43 RNA Not Detected Not Detected [facility] Adenovirus DNA Not Detected Not Detected [facility] Metapneumovirus RNA Not Detected Not Detected [facility] Rhinovirus/Enterov irus RNA Not Detected Not Detected [facility] Parainfluenza 1 RNA Not Detected Not Detected [facility] Parainfluenza 2 RNA Not Detected Not Detected [facility] Parainfluenza 3 RNA Not Detected Not Detected [facility] Parainfluenza 4 RNA Not Detected Not Detected [facility] B. pertussis DNA Not Detected Not Detected [facility] B. parapertussis DNA Not Detected Not Detected [facility] C. pneumoniae DNA Not Detected Not Detected [facility] M. pneumoniae DNA Not Detected Not Detected [facility] Nasopharyngeal 08/06/2024 9: 59 AM CASH ANALYST 08/06/2024 10:52 AM CASH ANALYST Bernadette ELIAS [facility] - 08/06/2024 11:43 AM CASH ANALYST Is the Patient experiencing symptoms consistent with COVID?->Yes Surveillance testing for transplant patient?->No Interpretive Data The [facility] FilmArray Respiratory Panel (RP2.1) assay is a [...] assay has FDA clearance for testing of COLLEGE PRESIDENT swabs. The performance of additional specimen types has been assessed by the performing laboratory. The performance characteristics of this assay have been determined by [facility]. Current interpretive data was last revised on 22. [facility] [place] Final Result [facility] Department [place] [address] from Last 3 Months Insurance [employer] [address] [id number] [place] [address] [facility] [employer] [facility] [address] [address] [place] [address] [employer] Advance Directives For more information, please contact: [phone] * Full Code (Latest Code Status on File) Date Activated Date Inactivated Comments 08/13/2024 3:12 AM 08/14/2024 6:01 PM * Full Code Date Activated Date Inactivated Comments 10/28/2022 5:15 PM 10/29/2022 2:07 PM * Full Code Date Activated Date Inactivated Comments 08/09/2019 5:28 PM 08/10/2019 5:09 PM * Full Code Date Activated Date Inactivated Comments 07/29/2019 4:26 PM 08/04/2019 10:36 PM Care Teams Felt Finisher Relationship Specialty [place] [id number] [place] [address] PCP - General Family Medicine 05/18/24 [place] [address] [address] Referring Physician General Surgery 08/04/19 [place] [id number] [address] Consulting Physician Gastroenterology 08/04/19
--- NOTE | 2024-09-17 21:40 | ED_ITS ---
HPI - Recheck/Abnormal Lab/Rx General Chief Complaint: Recheck/Abnormal Lab/Rx Stated Complaint: swelling to bilateral legs Time Seen by Provider: 09/17/24 21:13 Source: patient Mode of arrival: ambulatory Limitations: no limitations History of Present Illness HPI narrative: This is a 44-year-old male who presents to the ED for chief complaint of swelling to the bilateral legs x8 years. He is requesting IV Lasix to help with the swelling. 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 He was seen here yesterday given prescription for Keflex for potential cellulitis. He does state that the left leg is little more red and tender than the right. Denies fevers, chills, shortness of breath, chest pain, palpitations. Related Data Allergies Allergy/AdvReac Type Severity Reaction Status Date / Time iohexol (From contrast - CT, Allergy vomiting Verified 09/17/24 18:08 X-RAY) Review of Systems Review of Systems: All systems as dictated in HPI Exam Narrative: GENERAL: Well-appearing, well-nourished, and in no acute distress. HEAD: Normocephalic, atraumatic. EYES: PERRLA and EOMI. ENT: Nares clear, no rhinorrhea or epistaxis. Mucous membranes moist. Oropharynx without tonsillar hypertrophy exudate or other lesions. NECK: Supple. No adenopathy or masses. CHEST: No respiratory distress. Clear to auscultation. No wheezes rales or rhonchi HEART: Regular rate and rhythm. No murmur heard. Normal peripheral pulses. ABDOMEN: Soft, nontender, nondistended, normal active bowel sounds. MSK: Normal range of motion. 1+ pitting edema around bilateral ankles. Left lower extremity with mild SKIN: Warm, dry, no rash. NEURO: Alert and oriented x4. No focal deficits. PSYCH: Normal mood and affect. Course Vital Signs Vital signs: Vital Signs Temperature 98.0 F 09/17/24 18:04 Pulse Rate 79 09/17/24 18:04 Respiratory Rate 18 09/17/24 18:04 Blood Pressure 107/66 09/17/24 18:04 Pulse Oximetry 100 09/17/24 18:04 Oxygen Delivery Room Air 09/17/24 18:04 Temperature 98.0 F 09/17/24 18:04 Pulse Rate 79 09/17/24 18:04 Respiratory Rate 18 09/17/24 18:04 Blood Pressure 107/66 09/17/24 18:04 Pulse Oximetry 100 09/17/24 18:04 Oxygen Delivery Room Air 09/17/24 18:04 MDM - Recheck/Abnormal Lab/Rx MDM Narrative Medical decision making narrative: 44-year-old male who presents to the today requesting IV Lasix for chronic leg swelling. Vitals are normal. Exam does show mild pitting edema to the bilateral ankles. There is mild erythema to the left ankle. He was seen here previously yesterday and given Keflex prescription. States that he did not pick this up. 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 I discussed with patient that I do not think that he has heart failure or other acute emergent cause of leg swelling. It does appear that the left leg may be cellulitic so encouraged him to take his Keflex as prescribed. Pt will be discharged in stable condition. Return precautions given and supportive measures discussed. Pt is understanding and agreeable with plan for discharge and follow-up with PCP. Discharge Plan Discharge Clinical Impression: Encounter for medical screening examination Patient Disposition: Home, Self-Care Condition: Stable Instructions: Antibiotic Form Additional Instructions: Your exam today is showing increased redness on the left leg. Please take your cephalexin as prescribed for possible infection. Please contact your PCP regarding your chronic leg swelling for evaluation. If you have any new or worsening symptoms please return to the ER for further evaluation. Patient Language: Occitan Prescriptions: No Action cephalexin 500 mg capsule 500 mg PO Q8H 7 Days Qty: 21 0RF Follow-up/Referrals: PHYSICIAN NOT ON STAFF,NONSTAFF [Primary Care Provider] - Time of Disposition: 22:01
== END 2024-09-17 22:22 | disposition home or self-care (01) ==
PROVIDERS: Emergency Provider Physician Assistant
DX: R60.0 Localized edema (principal)
CPT/HCPCS: 99281

== ENCOUNTER 2024-09-21 20:48 | Emergency (ER) | payer MEDICAID, SELFPAY ==
--- NOTE | ~2024-09-21 | XR_ITS ---
AP and lateral views of the left tibia/fibula Clinical History: Swelling, cellulitis Findings: No acute fracture or dislocation is seen. Osseous alignment is anatomic. Joint spaces are p reserved without significant erosive or degenerative change. Soft tissues are unremarkable. Impression: Unremarkable left tib-fib radiographs. Reviewed, dictated and finalized at [facility]. IZATION SPECIALIST Impression: Unremarkable left tib-fib radiographs.
--- OUTSIDE RECORDS SUMMARY | 2024-09-21 20:51 | XMS_ITS | Encounter Summary ---
Author Organization [facility] Healthcare Address [address] [place] [address] Care Team Providers Care Pharmacy Account Director Name Role Phone Elias Andrews MD Unavailable [phone] Jonah Otto MD Unavailable [phone] Jerel Camejo MD Primary Care Provider [phone] Reason for Visit * Reason Comments Leg Swelling Encounter Details Date Type Department Care Team (Late st Contact Info) Description 09/20/2024 4:07 PM DEPARTMENT SALES MANAGER - 09/20/2024 4:49 PM DEPARTMENT SALES MANAGER Emergency [facility] Emergency Department [address] [place] [address] Medication refill (Primary Dx) Discharge Disposition: Discharge to home or self care Social History Tobacco Use Types Packs/Day Years Used Date Smoking Tobacco: Never Smokeless Tobacco: Never Alcohol Use Standard Drinks/Week Comments Not Currently 0 (1 standard drink = 0.6 oz pur e alcohol) [facility] Utilities Answer Date Recorded In the past 12 months has [employer], gas, oil, or water [employer] threatened to shut off services in your home? Patient declined 08/14/2024 Social Connection and Isolation Panel [NHANES] A nswer Date Recorded In a typical week, how many times do you talk on the phone with family, friends, or neighbors? Patient declined 08/14/2024 How often do you get togethe r with friends or relatives? Patient declined 08/14/2024 How often do you attend methodist or restoration serv ices? Patient declined 08/14/2024 Do you belong to any clubs o r organizations such as methodist groups, unions, fraternal or athletic groups, or [...] any time in the past 12 [facility], were you homeless or living in a long-term (including now)? Patient declined 08/14/2024 Personal Safety Answer Date Recorded Have you ever been in or are you currently in a harmful physical or emotional relationship or is someone making you feel afraid or unsafe? Denies 09/20/2024 Sex and Gender Information Value Date Recorded Sex Assigned at Not on file Legal Sex Male 9:25 PM DEPARTMENT SALES MANAGER Gender Identity Not on file Sexual Orientation Straight 11/18/2022 7: 07 PM CDT documented as of this encounter Last Filed Vital Signs Vital Sign Reading Time Taken Comments Blood Pressure 109/61 09/20/2024 3:48 PM DEPARTMENT SALES MANAGER Pulse 86 09/20/2024 3:48 PM DEPARTMENT SALES MANAGER Temperature 37 C (98.6 F) 09/20/2024 3:48 PM DEPARTMENT SALES MANAGER Respiratory Rate 18 09/20/2024 3:48 PM DEPARTMENT SALES MANAGER Oxygen Saturation 99% 09/20/2024 3:48 PM DEPARTMENT SALES MANAGER Inhaled Oxygen Concentration - - Weight 74.8 kg (165 lb) 09/20/2024 3:48 PM DEPARTMENT SALES MANAGER Height - - Body Mass Index 25.09 09/20/2024 1:22 AM DEPARTMENT SALES MANAGER documented in this encounter Discharge Instructions * Discharge Instructions* Parul Reed PA - 09/20/2024 4:41 PM DEPARTMENT SALES MANAGER You were seen today for a medication refill. Medications were already sent in for you however a fewdays prior. I have switched them to a closer pharmacy for your convenience. Please case picker at the address below RTMENT SALES MANAGER RTMENT SALES MANAGER documented in this encounter Medications at Time of Discharge acetaminophen (TYLENOL) 500 mg tablet Take 2 tablets (1,000 mg total) by mouth every 6 (six) hours as needed for pain 30 tablet 09/05/2024 doxycycline (VIBRAMYCIN) 100 mg capsuleIndicatio ns:Skin/Soft Tissue Infection Take 1 tablet/capsule (100 mg total) by mouth 2 (two) times a day 20 capsule 08/23/2024 furosemide (LASIX) 20 mg tablet Take 2 tablets (40 mg total) by mouth daily for 5 days 10 tablet 09/20/2024 5 hydroCHLOROthiaz jessica (HYDRODIURIL) 25 mg tabletIndication [...] a day with meals 30 tablet 09/02/2024 cephalexin (KEFLEX) 500 mg capsuleIndicatio ns:Cellulitis of left lower extremity Take 2 capsules (1,000 mg total) by mouth 2 (two) times a day for 10 days 40 capsule 09/10/2024 5 documented as of this encounter Ordered Prescriptions Prescription Sig Dispense Quantity Refills Last Filled Start Date End Date furosemide (LASIX) 20 mg tablet Take 2 tablets (40 mg total) by mouth daily for 5 days 10 tablet 09/20/2024 5 documented in this encounter Discharge Disposition Disposition Code Departure Means Destination Comment s Discharge to home or self care documented in this encounter ED Notes * Parul Reed PA - 09/20/2024 4:49 PM CST HPI Chief Complaint Patient presents with Leg Swelling 44-year-old male patient presents for re-evaluation of his chronic leg swelling. This has been ongoing for 8 years. This is it was 27th visit this month alone for similar issues. He was had negative lab work including BNP, negative ultrasounds performed. He was requesting a dose of Lasix despite the fact that he was since a prescription for this 2 days prior. He states he did not pick this up Patient History: Patient Active Problem List Diagnosis [...] file Review of Systems Review of Systems Cardiovascular: Positive for leg swelling. Physical Exam ED Triage Vitals [09/20/24 1548] Temp Pulse Resp BP SpO2 37 ??C (98.6 ??F) 86 18 109/61 99 % Temp src Heart Rate Source Patient Position BP Location FiO2 (%) -- -- -- -- -- Height Height Method Weight Weight Method -- -- 74.8 kg (165 lb) -- Physical Exam Vitals and nursing note reviewed. Constitutional: General: He is not in acute distress. Appearance: Normal appearance. He is not ill-appearing, toxic-appearing or diaphoretic. Eyes: Extraocular Movements: Extraocular movements intact. Pupils: Pupils are equal, round, and reactive to light. Cardiovascular: Rate and Rhythm: Normal rate. Pulses: Normal pulses. Pulmonary: Effort: Pulmonary effort is normal. Breath sounds: Normal breath sounds. Abdominal: Tenderness: There is no abdominal tenderness. Musculoskeletal: General: No swelling or tenderness. Normal range of motion. Cervical back: Normal range of motion. Skin: General: Skin is warm and dry. Capillary Refill: Capillary refill takes less than 2 seconds. Neurological: General: No focal deficit present. Mental Status: He is alert and oriented to person, place, and time. Cranial Nerves: No cranial nerve deficit. Sensory: No sensory deficit. Motor: No weakness. Coordination: Coordination normal. Gait: Gait normal. Deep Tendon Reflexes: Reflexes normal. MDM Heart Score NIH Score Medical Decision Making 44-year-old A&O x4 male patient presents for evaluation of chronic leg swallowing. He has been seen multiple times for this recently, this is it was 27th ER visit this month. He was had multiple ultrasounds performed which were negative. He was had lab work as recently has 36 hours ago. He was never had any abnormalities, no elevated BNP. He has not followed up with his primary. 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 Denies any change in the swelling, he was just requesting a medication refill despite the fact that he was sent a refill 2 days prior and he did not pick it up Physical exam shows well-appearing male patient. Lungs clear all motley. Heart tones normal. Skin pink/warm/dry. Mild swelling lower extremities, no signs of cellulitis Differential: Chronic leg swelling Plan: Informed patient he has a prescription already. Nothing else to be done. Stressed importance of following up with primary. Discharged with return precautions Risk Prescription drug management. Final diagnoses: Medication refill Parul Reed PA 09/20/24 1703 RTMENT SALES MANAGER * Ty Rowland RN - 09/20/2024 3:45 PM CST Pt to ED via POV. Per Pt he has had intermittent leg swelling [id number]. Pt reports he was given a dieretic 2 days ago in the ED and reports he needs them to be less swollen by tomorrow for a physical.Pt reports not ever telling his PCP about his issues with leg swelling. Denies SOB. RTMENT SALES MANAGER documented in this encounter Plan of Treatment Not on file documented as of this encounter Visit Diagnoses Diagnosis Medication refill- Primary Issue of repeat prescriptions documented in this encounter Discontinued Medications Medication Sig Discontinue Reason Start Date End Da te furosemide (LASIX) 20 mg tablet Take 2 tablets (40 mg total) by mouth daily for 5 days 09/19/2024 09/20/2024 documented as of this encounter Care Teams Pharmacy Account Director Relationship Specialty Start [place] [address] [place] [address] PCP - General Family Medicine 05/18/24 [place] [address] [facility] [address] [place] [address] Referring Physician General Surgery 08/04/19 [place] [id number] [facility] [address] [place] [address] Consulting Physician Gastroenterology 08/04/19 documented as of this encounter
--- OUTSIDE RECORDS SUMMARY | 2024-09-21 20:51 | XMS_ITS | Encounter Summary ---
Author Organization [facility] Healthcare Address [address] [place] [address] Care Team Providers Care Gre Tutor Name Role Phone Elias Andrews MD Unavailable [phone] Jonah Otto MD Unavailable [phone] Jerel Camejo MD Primary Care Provider [phone] Reason for Visit * Reason Comments Sore Throat Pt c/o sore throat, stuffy nose and headache that started yesterday morning Encounter Details Date Type Department Care Team (Late st Contact Info) Description 09/20/2024 1:26 AM CLAIM INVESTIGATOR - 09/20/2024 2:22 AM [facility] Emergency [facility] Emergency Department [address] [place] [address] Cesar Chiang MD [address] [address] Viral pharyngitis (Primary Dx) Discharge Disposition: Discharge to home or self care Social History Tobacco Use Types Packs/Day Years Used Date Smoking Tobacco: Never Smokeless Tobacco: Never Alcohol Use Standard Drinks/Week Comments Not Currently 0 (1 standard drink = 0.6 oz pur e alcohol) [facility] Utilities Answer Date Recorded In the past 12 months has e [employer], gas, oil, or water [employer] threatened to shut off services in your home? Patient declined 08/14/2024 Social Connection and Isolation Panel [NHANES] A nswer Date Recorded In a typical week, how many times do you talk on the phone with family, friends, or neighbors? Patient declined 08/14/2024 How often do you get togethe r with friends or relatives? Patient declined 08/14/2024 How often do you attend zoroastrianism or faith serv ices? Patient declined 08/14/2024 Do you belong to any clubs o r organizations such as zoroastrianism groups, unions, fraternal or athletic groups, or [...] any time in the past 12 m [facility], were you homeless or living in a care home (including now)? Patient declined 08/14/2024 Personal Safety Answer Date Recorded Have you ever been in or are you currently in a harmful physical or emotional relationship or is someone making you feel afraid or unsafe? Denies 09/20/2024 Sex and Gender Information Value Date Recorded Sex Assigned at Not on file Legal Sex Male 9:25 PM CLAIM INVESTIGATOR Gender Identity Not on file Sexual Orientation Straight 11/18/2022 7: 07 PM CDT documented as of this encounter Last Filed Vital Signs Vital Sign Reading Time Taken Comments Blood Pressure 113/64 09/20/2024 1:22 AM CLAIM INVESTIGATOR Pulse 74 09/20/2024 1:22 AM CLAIM INVESTIGATOR Temperature 36.4 C (97.6 F) 09/20/2024 1:22 AM CLAIM INVESTIGATOR Respiratory Rate 16 09/20/2024 1:22 AM CLAIM INVESTIGATOR Oxygen Saturation 100% 09/20/2024 1:22 AM CLAIM INVESTIGATOR Inhaled Oxygen Concentration - - Weight 74.8 kg (165 lb) 09/20/2024 1:22 AM CLAIM INVESTIGATOR Height 172.7 cm (5' 8 ) 09/20/2024 1:22 AM CLAIM INVESTIGATOR Body Mass Index 25.09 09/20/2024 1:22 AM CLAIM INVESTIGATOR documented in this encounter Discharge Instructions * Attachments The following attachments cannot be sent through Care Everywhere. * URI, Viral, No Abx (Adult) (Malaysian) documented in this encounter Medications at Time of Discharge acetaminophen (TYLENOL) 500 mg tablet Take 2 tablets (1,000 mg total) by mouth every 6 (six) hours as needed for pain 30 tablet 09/05/2024 doxycycline (VIBRAMYCIN) 100 mg capsuleIndicatio ns:Skin/Soft Tissue Infection Take 1 tablet/capsule (100 mg total) by mouth 2 (two) times a day 20 capsule 08/23/2024 hydroCHLOROthiaz jessica (HYDRODIURIL) 25 mg tabletIndication s:Cellulitis of left lower extremity,Left leg swelling Take 1 tablet (25 mg total) by mouth daily 5 tablet 09/10/2024 ibuprofen (ADVIL,MOTRIN) 600 mg tablet Take 1 [...] 09/10/2024 5 documented as of this encounter Discharge Disposition Disposition Code Departure Means Destination Comment s Discharge to home or self care documented in this encounter ED Notes * Cesar Chiang MD - 09/20/2024 2:14 AM CST HPI Chief Complaint Patient presents with Sore Throat Pt c/o sore throat, stuffy nose and headache that started yesterday morning 44-year-old here with a complaint of sore throat since early this morning. Patient states that he was seen in the ER yesterday for leg edema was given Lasix and ever since this morning he has been having some throat irritation. He denies any shortness of breath. Patient History: Patient Active Problem List Diagnosis [...] Review of Systems Review of Systems Constitutional: Negative. HENT: Positive for sore throat. Eyes: Negative. Respiratory: Negative. Cardiovascular: Negative. Genitourinary: Negative. Neurological: Negative. Hematological: Negative. Physical Exam ED Triage Vitals [09/20/24 0122] Temp Pulse Resp BP SpO2 36.4 ??C (97.6 ??F) 74 16 113/64 100 % Temp src Heart Rate Source Patient Position BP Location FiO2 (%) Temporal -- -- -- -- Height Height Method Weight Weight Method 1.727 m (5' 8 ) Stated 74.8 kg (165 lb) Stated Physical Exam Vitals and nursing note reviewed. Constitutional: Appearance: He is well-developed. HENT: Head: Normocephalic and atraumatic. Mouth/Throat: Mouth: Mucous membranes are moist. Tonsils: No tonsillar exudate. Eyes: Conjunctiva/sclera: Conjunctivae normal. Musculoskeletal: Cervical back: Normal range of motion. Skin: General: Skin is warm. Neurological: Mental Status: He is alert. Results for orders placed or performed during the hospital encounter of 09/20/24 Influenza A/B, RSV, and COVID-19 PCR Nasopharyngeal Collection Time: 09/20/24 1:25 AM Specimen: Nasopharyngeal Result Value Ref Range COVID-19 RNA Negative Negative Influenza A RNA Negative Negative Influenza B RNA Negative Negative RSV RNA Negative Negative MDM Heart Score NIH Score Medical Decision Making Final diagnoses: Viral pharyngitis Cesar Chiang MD 09/20/24214 M INVESTIGATOR documented in this encounter Plan of Treatment Not on file documented as of this encounter Procedures Procedure Name Priority Date/Time Associated Diagnosis Comments INFLUENZA A/B, RSV, AND COVID-19 PCR STAT 09/20/2024 1:25 AM CLAIM INVESTIGATOR documented in this encounter Results * Influenza A/B, RSV, and COVID-19 PCR Nasopharyngeal (09/20/2024 1:25 AM CLAIM INVESTIGATOR) COVID-19 RNA Negative Negative Influenza A RNA Negative Negative [facility] ([place]) Influenza B RNA Negative Negative [facility] ([place]) RSV RNA Negative Negative [facility] ([place]) Comment: Interpretive data: Testing performed by [facility]. This test is performed using the [employer] Xpert Xpress CoV-2/Flu/RSV plus assay. This is a multiplex, real- time reverse transcriptase PCR assay intended for the qualitative detection of nucleic acid from SARS-CoV-2, influenza A, influenza B, and respiratory syncytial virus. This assay has been cleared by the [place] Food and Drug administration. The performance characteristics have been verified by the [facility]. Results must be considered in the clinical context, and a negative result does not rule out infection. Interpretive Data last revised 2023 Nasopharyngeal 09/20/2024 1: 25 AM CLAIM INVESTIGATOR 09/20/2024 1:29 AM CLAIM INVESTIGATOR Narrative [facility] ([place]) - 09/20/2024 2:07 AM CLAIM INVESTIGATOR Is the Patient experiencing symptoms consistent with COVID?->Yes us Cesar Chiang MD LAB MICROBIOLOGY - GENERAL ORD ERABLES Final Result [facility] ([place]) 1 [facility] Department of Laboratories [place], [place] [id number] documented in this encounter Visit Diagnoses Diagnosis Viral pharyngitis- Primary Acute pharyngitis documented in this encounter Additional Health Concerns Infection Onset Date Last Indicated Resolved Time COVID: Suspected 09/20/2024 09/20/2024 09/20/2024 2:08 AM CLAIM INVESTIGATOR documented as of this encounter Care Teams Gre Tutor Relationship Specialty [place] [address] [place] [address] PCP - General Family Medicine 05/18/24 [place] [address] [address] [place] [address] Referring Physician General Surgery 08/04/19 [place] [id number] [address] Consulting Physician Gastroenterology 08/04/19 documented as of this encounter
--- OUTSIDE RECORDS SUMMARY | 2024-09-21 20:51 | XMS_ITS | Encounter Summary ---
Author Organization [facility] Address [address] [place] [address] Care Team Providers Care Commodities Clerk Name Role Phone Jerel Camejo MD Primary Care Provider [phone] Encounter Details Date Type Department Care Team (Late Contact Info) Description 12/24/2022 Lab Requisition [facility] [email or web address] [email or web address] [address] Ny Hicks MD [email or web address] [place] [address] Generalized enlarged lymph nodes Social [...] on file Legal Sex Male 7:43 PM SCRAP YARD WORKER Gender Identity Not on file Sexual [...] (Late Contact Info) Description 08/27/2025 11:30 AM SCRAP YARD WORKER Office Visit [facility] Internal Medicine - [place] [address] [facility] [address] [place] [address] [place] [address] [place] [address] documented as of this encounter Procedures Procedure Name Priority Date/Time Associated Diagnosis Comments SEDIMENTATION RATE Stat 12/24/2022 12 :05 PM CDT Generalized enlarged lymph nodes C-REACTIVE PROTEIN Stat 12/24/2022 12 :05 PM CDT Generalized enlarged lymph nodes documented in this encounter Results * C-REACTIVE PROTEIN (12/24/2022 12:05 PM CDT) CRP <3.0 <5.0 mg/L 12/24/2022 3:02 PM CDT [facility] Blood 12/24/2022 12:0 5 PM CDT 12/24/2022 2:22 PM CDT us Ny Hicks MD CHEMISTRY ORDERABLES Final Re sult [facility]# [id number] [address] [place] [address] * SEDIMENTATION RATE (12/24/2022 12:05 PM CDT) Pathologist [facility] ESR (SEDIMENTATION RATE) 7 <=15 mm/Hr 12/24/2022 2:55 PM CDT [facility] Blood Collection / Unknown 12/24/2022 12:05 PM CDT 12/24/2022 2:22 PM CDT us Ny Hicks MD HEMATOLOGY ORDERABLES Final R esult [facility] CLOR# [id number] [address] [place] [address] documented in this encounter Visit Diagnoses Diagnosis Generalized enlarged lymph nodes Enlargement of lymph nodes documented in this encounter Additional Health Concerns Infection Onset Date Last Indicated Resolved Time R/O COVID-19 08/21/2024 08/21/2024 08/21/2024 4:37 PM SCRAP YARD WORKER R/O Respiratory 09/08/2024 09/08/2024 09/09/2024 1 :04 AM SCRAP YARD WORKER documented as of this encounter Care Teams Commodities Clerk Relationship Specialty Start [place] [address] [place] [id number] PCP - General Family Practice 12/01/22 documented as of this encounter
--- OUTSIDE RECORDS SUMMARY | 2024-09-21 20:52 | XMS_ITS | Clinical Summary ---
Author Organization [facility] Address [address] [place] [address] Phone Care Team Providers Care Iv Rn Name Role Phone Jerel Camejo MD Primary Care Provider [phone] Allergies Active Allergy Reactions Criticality Noted Date Comments Iodinated Contrast Media Nausea and Vomiting Low Medications ondansetron (ZOFRAN ODT) 4 mg Tablet, Rapid [...] (09/15/2024): Added automatically from request for surgery [id number] Leg wound, left 09/13/2019 Chronic abdominal pain 08/12/2019 S/P cholecystectomy 08/12/2019 Vasovagal episode 08/12/2019 Calculus of gallbladder 07/29/2019 Intractable right upper quadrant abdominal pain 07/29/2019 Overview (09/15/2024): Added automatically from request for surgery [id number] Nausea 07/29/2019 Adjustment disorder with depressed mood in remis devonte 11/05/2018 Generalized abdominal pain 10/25/2018 Sepsis 10/25/2018 Dizziness 10/20/2018 Syncope and collapse 10/20/2018 Encounters Date Type Department Care Team Description 09/21/2024 5:45 PM [facility] [employer] Office Visit [facility] [address] [place] [address] [facility] Kay Melo FNP Acute cough (Primary Dx) 09/20/2024 8:51 PM [facility] [employer] - 09/20/2024 9:18 PM [facility] Emergency [facility] Emergency Department [address] [place] [address] Karlo Dobbs MD Bilateral lower extremity edema (Primary Dx) Discharge Disposition: Home or Self Care 09/20/2024 Travel 09/20/2024 Patient Outreach [facility] Outpatient Care [address] [place] [address] Thalia Wall LCSW Ambulatory Social Work 09/19/2024 5:58 PM [facility] [employer] - 09/19/2024 6:44 PM [facility] Emergency Services [address] [address] Asif Isabel MD Peripheral edema (Primary Dx) Discharge Disposition: Home or Self Care 09/19/2024 12:00 PM [employer] Office Visit [address] [address] Rajiv Berry PA Cellulitis of left lower leg (Primary Dx); Edema of left lower leg 09/17/2024 1:11 AM [facility] - 09/17/2024 2:12 AM [facility] Emergency Department [address] [place] [address] Nolan Lee MD Venous insufficiency (chronic) (peripheral) (Primary Dx) Discharge Disposition: Home or Self Care 09/15/2024 6:00 PM [facility] LO[employer] C[employer]TER Office Visit [facility] [address] [place] [address] Kay Melo FNP Nausea and vomiting, unspecified vomiting type (Primary Dx) 09/15/2024 2:19 AM [facility] - 09/15/2024 3:[address] [facility] Emergency Department [address] [place] [address] Greg Todd MD Lower extremity edema (Primary Dx) Discharge Disposition: Home or Self Care 09/14/2024 Travel 09/13/2024 8:17 AM [facility] - 09/13/2024 11:47 AM [facility] Emergency Department [address] [place] [address] Batsheva Hayden MD Leg swelling (Primary Dx) Discharge Disposition: Home or Self Care 09/13/2024 Travel 09/10/2024 9:10 PM [facility] - 09/10/2024 10:05 PM [facility] Emergency Room [address] [place] [address] Bilateral lower extremity edema (Primary Dx) Discharge Disposition: Home or Self Care 09/09/2024 9:55 PM [facility] - 09/10/2024 12:20 AM [facility] Emergency Department [address] [place] [phone] Nolan Lee MD 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 Emergency Department [address] [place] [address] Mark Andrews DO Venous stasis dermatitis (Primary Dx); Other chronic pain Discharge Disposition: Home or Self Care 09/08/2024 Travel 09/05/2024 External Device Data STL ABSTRACTION Provider, Abstract 09/04/2024 6:46 AM [facility] - 09/04/2024 7:21 AM [facility] Emergency Department [address] [place] [phone] Fei Napoles DO Chronic pain of left lower extremity (Primary Dx) Discharge Disposition: Home or Self Care 08/24/2024 11:37 PM [facility] - 08/24/2024 11:53 PM [facility] Emergency [facility] Emergency Department [address] [place] [address] Wicho Camarillo DO Cellulitis, unspecified cellulitis site (Primary Dx) Discharge Disposition: Home or Self Care 08/24/2024 External Device Data STL ABSTRACTION Provider, Abstract 2024 Results Follow-Up [facility] Internal Medicine - [place] [address] [place] [address] Jerel Camejo MD TSH, LIPID PANEL, COMPREHENSIVE METABOLIC PANEL, Additional followed-up results: 2 08/21/2024 3:00 PM [facility] Office Visit [facility] Internal Medicine [facility] [address] [place] [phone] Jerel Camejo MD Encounter for routine adult health examination with abnormal findings (Primary Dx); Adjustment disorder with depressed mood in remission; LAD (lymphadenopathy); Screening for cardiovascular condition; Screening for lipoid disorders; Screening for endocrine disorder 08/21/2024 2:59 PM [facility] [employer] - 08/21/2024 7:[address] [facility] Emergency Department [address] [place] [address] Mike Sandoval, Carmelo Phillips MD Leg edema (Primary Dx); Persistent cough Discharge Disposition: Home or Self Care 08/21/2024 Travel 08/17/2024 2:50 AM [facility] [employer] - 08/17/2024 3:37 AM [facility] Emergency Department [address] [place] [address] Nolan Lee MD Viral syndrome (Primary Dx); Bilateral lower extremity edema Discharge Disposition: Home or Self Care 08/15/2024 External Device Data STL ABSTRACTION Provider, Abstract 08/14/2024 Orders Only [facility] Oncology and Hematology [facility] [address] [facility] [facility] [address] [place] [address] Ny Hicks MD Enlarged lymph nodes (Primary Dx) 08/11/2024 9:18 PM [facility] [employer] - 08/12/2024 12:53 AM [facility] [employer] Emergency [facility] Emergency Department [address] [place] [address] Nasrin White MD COVID-19 virus detected (Primary [...] who hurts you emotionally and/or physically? No 09/20/2024 Sex and Gender Information Value Date Recorded Sex Assigned at Not on file Legal Sex Male 7:43 PM LE[employer] C[employer] Gender Identity Not on file Sexual Orientation Not on file Last Filed Vital Signs Vital Sign Reading Time Taken Comments Blood Pressure 110/79 09/21/2024 5:48 PM [facility] [employer] Pulse 80 09/21/2024 5:48 PM [employer] LO[employer] C[employer] Temperature 36.8 C (98.3 F) 09/21/2024 5:48 PM [facility] LO[employer] C[employer]TER Respiratory Rate 12 09/21/2024 5:48 PM [facility]ER [employer] LO[employer] C[employer]TER Oxygen Saturation 97% 09/21/2024 5:48 PM [facility] LO[employer] C[employer]TER Inhaled Oxygen Concentration - - Weight 74.8 kg (165 lb) 09/21/2024 5:48 PM LE[employer]ER [employer]T LO[employer] C[employer] Height 172.7 cm (5' 8 ) 09/21/2024 5:48 PM [facility] LO[employer] C[employer] Body Mass Index 25.09 09/21/2024 5:48 PM LE[employer]ER [employer] LO[employer] C[employer]TER Plan of Treatment Upcoming Encounters Date Type Department Care Team (Late st Contact Info) Description 08/27/2025 11:30 AM LE[employer]ER [employer] LO[employer] C[employer]TER Office Visit [facility] Internal Medicine - [place] [address] [place] [phone] [place] [address] [facility] [address] [place] [address] Health Maintenance Due Date Last Done Comments HEPATITIS B VACCINES (1 of 3 - 19+ 3-dose series) 2001 Preventative Visit-Managed Medicaid 12/03/2023 12/01/2022 COVID-19 Vaccine ( - 2023-2 5 season) 2024 2022, 04/04/2022, 12/10/2021 Pre-Diabetes and Diabetes Screening 08/21/2027 08/21/2024 DTAP/TDAP/TD VACCINES (2 - T d or Tdap) 08/05/2029 08/05/2019, 03/28/2014 INFLUENZA VACCINE Completed 04/03/2024, 05/01/2023, 04/04/2022 HPV VACCINES Aged Out No longer eligi ble based on patient's age to complete this topic Procedures Procedure Name Priority Date/Time Associated Diagnosis Comments POC COVID-19 ANTIGEN Routine 09/21/2024 5:48 PM LE[employer]ER [employer] C[employer]TER Acute cough POC INFLUENZA A AND B ANTIGEN Routine 09/21/2024 5:48 PM LE[employer]ER [employer]T LO[employer] C[employer]TER Acute cough EXTRA TUBE (BLUE) Stat 09/19/2024 6:0 3 PM LE[employer]ER [employer]T LOOP C[employer]TER EXTRA TUBE Stat 09/19/2024 6:03 PM LE[employer]ER [employer]T LO[employer] C[employer]TER DIFFERENTIAL, MANUAL Stat 09/19/2024 5:59 PM LE[employer]ER [employer]T LOOP CUTTER COMPREHENSIVE METABOLIC PANEL Stat 09/19/2024 5:59 PM LE[employer]ER [employer]T LOOP C[employer]TER CBC WITH DIFFERENTIAL Stat 09/19/2024 5:59 PM LE[employer]ER [employer]T LO[employer] C[employer]TER TROPONIN 2 HR, 5TH GEN Timed Study 09/17/2024 1:35 AM LE[employer]ER [employer]T LO[employer] C[employer]TER EXTRA TUBE (BLUE) Stat 09/16/2024 9:1 3 PM LE[employer]ER [employer]T LOOP C[employer]TER EXTRA TUBE Stat 09/16/2024 9:13 PM LE[employer]ER [employer] LOOP CUTTER COMPREHENSIVE METABOLIC PANEL Stat 09/16/2024 9:13 PM LE[employer]ER [employer]T LOOP CUTTER CBC WITH DIFFERENTIAL Stat 09/16/2024 9:13 PM LEATHER [employer]T LOOP CUTTER TROPONIN BASELINE, 5TH GEN Stat 09/16/2024 9:13 PM LEATHER [employer]T LO[employer] CUTTER EKG 12-LEAD Stat 09/16/2024 9:02 PM LEATHER [employer]T LO[employer] CUTTER POC INFLUENZA A AND B ANTIGEN Routine 09/15/2024 6:16 PM LE[employer]ER [employer]T LO[employer] C[employer]TER Nausea and vomiting, unspecified vomiting type COMPREHENSIVE METABOLIC PANEL Stat 09/14/2024 11:53 PM LEATHER [employer]T LOOP CUTTER CBC WITH DIFFERENTIAL Stat 09/14/2024 11:53 PM LEATHER [employer]T LOOP CUTTER POC GLUCOSE Stat 09/14/2024 11:51 PM LE[employer]ER [employer]T LO[employer] C[employer]TER COMPREHENSIVE METABOLIC PANEL Stat 09/09/2024 9:16 PM [facility]ER [employer] LO[employer] C[employer]TER CBC WITH DIFFERENTIAL Stat 09/09/2024 9:16 PM LEATHER [employer]T LOOP CUTTER XR CHEST PA AND LATERAL 2 VW Stat 09/09/2024 1:17 AM LEATHER [employer]T LO[employer] CUTTER RESPIRATORY PATHOGEN PCR PANEL Stat 09/08/2024 11:43 [address] [address] [address] CHEST ABDOMEN PELVIS W CONT Stat 08/21/2024 6:55 PM LEATHER [employer]T LOOP CUTTER POC CREATININE Stat 08/21/2024 4:35 PM LEATHER [employer]T LOOP CUTTER C-REACTIVE PROTEIN Stat 08/21/2024 4: 27 PM LE[employer]ER [employer]T LO[employer] C[employer]TER COMPREHENSIVE METABOLIC PANEL Stat 08/21/2024 4:27 PM LE[employer]ER [employer]T LOOP CUTTER CBC WITH DIFFERENTIAL Stat 08/21/2024 4:27 PM LEATHER [employer]T LOOP CUTTER XR CHEST PA AND LATERAL 2 VW Stat 08/21/2024 3:25 PM LEATHER [employer]T LOOP CUTTER INFLUENZA A/B, RSV AND COVID-19 PCR PANEL Stat 08/21/2024 3:11 PM LEATHER [employer]T LO[employer] C[employer]TER INFLUENZA A/B, RSV AND COVID-19 PCR PANEL Stat 08/21/2024 3:11 PM [facility] [employer] LO[employer] C[employer]TER HEMOGLOBIN A1C Routine 08/21/2024 2:08 PM LE[employer]ER [employer]T LO[employer] C[employer]TER Adjustment disorder with depressed mood in remission LAD (lymphadenopathy) CBC WITH DIFFERENTIAL Routine 08/21/2024 2:08 PM LE[employer]ER [employer]T LOOP CUTTER Adjustment disorder with depressed mood in remission LAD (lymphadenopathy) COMPREHENSIVE METABOLIC PANEL Routine 08/21/2024 2:08 PM LE[employer]ER [employer]T LOOP CUTTER Adjustment disorder with depressed mood in remission LAD (lymphadenopathy) LIPID PANEL Routine 08/21/2024 2:08 PM LEATHER [employer]T LOOP CUTTER Adjustment disorder with depressed mood in remission LAD (lymphadenopathy) TSH Routine 08/21/2024 2:08 PM LE[employer]ER [employer]T LO[employer] C[employer]TER Adjustment disorder with depressed mood in remission LAD (lymphadenopathy) XR CHEST PA AND LATERAL 2 VW Stat 08/17/2024 3:26 AM [facility]ER [employer]T LO[employer] C[employer]TER TROPONIN 2 HR, 5TH GEN Timed Study 08/11/2024 11:38 PM [facility] [employer] [address] HEAD WO CONTRAST Stat 08/11/2024 1 0:18 PM LEATHER [employer]T LOOP CUTTER EKG 12-LEAD Stat 08/11/2024 9:58 PM LEATHER [employer]T LOOP CUTTER TROPONIN BASELINE, 5TH GEN Stat 08/11/2024 9:57 PM [employer]ER [employer]T LOOP C[employer]TER COMPREHENSIVE METABOLIC PANEL Stat 08/11/2024 9:57 PM LE[employer]ER [employer]T LO[employer] C[employer]TER CBC WITH DIFFERENTIAL Stat 08/11/2024 9:57 PM LEATHER [employer]T LOOP CUTTER from Last 3 Months Results * POC COVID-19 ANTIGEN (09/21/2024 5:48 PM LEATHER BELT LOOP CUTTER) [facility] COVID-19 ANTIGEN POC Presumptively Negative Presumptively Negative [facility] INTERNAL KIT QC POC Pass Pass [facility] KIT LOT NUMBER POC [phone] [facility] INCFlako [facility] KIT EXP DATE POC 08/24/25 [facility] READ METHOD POC Visual [facility] Upper Respiratory 09/21/2024 5:48 PM LEATHER BELT LOOP CUTTER Kay Melo SOLUTION MAKER POINT OF CARE TESTING F inal Result Performing Organization Address [facility] Co de Phone Number [facility] CLIA# [id number] [place] [address] * POC INFLUENZA A AND B ANTIGEN (09/21/2024 5:48 PM LEATHER BELT LOOP CUTTER) Only the most recent of2 resultswithin the time period is included. [facility] INFLUENZA A AG POC Negative/Not Detected Negative/No t Detected [facility] INFLUENZA B AG POC Negative/Not Detected Negative/No t Detected [facility] INTERNAL KIT QC POC Pass Pass [facility] KIT LOT NUMBER POC [id number] [facility] KIT EXP DATE POC 03/01/26 [facility] READ METHOD POC Visual [facility] Upper Respiratory ANTERIOR NARES SWAB / Unknown 09/21/2024 5:48 PM LEATHER BELT LOOP CUTTER Kay Melo SOLUTION MAKER POINT OF CARE TESTING F inal Result Performing Organization Address City/[facility] Co de Phone Number [facility] CLIA# [id number] [place] [address] * EXTRA TUBE (BLUE) (09/19/2024 6:03 PM LEATHER BELT LOOP CUTTER) Only the most recent of2 resultswithin the time period is included. Blood Venipuncture / Unknown 09/19/2024 6:03 PM LEATHER [employer]T LOOP CUTTER 09/19/2024 6:36 PM LEATHER [employer]T LO[employer] C[employer]TER Asif Isabel MD HEMATOLOGY ORDERABLES Fin al Result Performing Organization Address City/[facility]/ZIP Co de Phone Number [facility] [employer] [facility] CLIA # [id number] [address] [place] [address] * MANUAL DIFFERENTIAL (09/19/2024 5:59 PM LEATHER BELT LOOP CUTTER) Pathologist [facility] PLATELET EST. Consistent w Count 09/19/2024 6:19 PM LEATHER [employer]T LOOP CUTTER [facility] [employer] [facility] RBC MORPHOLOGY Normal 09/19/2024 6:19 PM LEATHER [employer]T LOOP CUTTER [facility] LABORATORY [facility] Blood Collection / Unknown 09/19/2024 5:59 PM LEATHER BELT LOOP CUTTER 09/19/2024 6:03 PM LEATHER [employer]T LOOP CUTTER Asif Isabel MD HEMATOLOGY ORDERABLES COM Final Result Performing Organization Address [facility] Co de Phone Number [facility] [employer] [facility] CLIA # [id number] [address] [place] [address] * CBC WITH DIFFERENTIAL (09/19/2024 5:59 PM LEATHER BELT LOOP CUTTER) Only the most recent of7 resultswithin the time period is included. Pathologist [facility] WBC 6.9 4.0 - 11.0 K/uL 09/19/2024 6:19 PM LEATHER [employer]T LOOP CUTTER [facility] LABORATORY [facility] RBC 4.85 4.60 - 6.20 M/uL 09/19/2024 6:19 PM LEATHER [employer]T LOOP CUTTER [facility] LABORATORY [facility] HEMOGLOBIN 14.4 13.5 - 17.0 g/dL 09/19/2024 6:19 PM LEATHER BELT LOOP CUTTER [facility] [place] HEMATOCRIT 43.8 40.0 - 54.0 % 09/19/2024 6:19 PM LEATHER BELT LOOP CUTTER [employer] [facility] [place] MCV 90.3 80.0 - 98.0 fL 09/19/2024 6:19 PM LEATHER BELT LOOP CUTTER [facility] [place] MCH 29.7 26.0 - 34.0 pg 09/19/2024 6:19 PM LEATHER BELT LOOP CUTTER [facility] [place] MCHC 32.9 31.0 - 37.0 g/dL 09/19/2024 6:19 PM LEATHER BELT LOOP CUTTER [facility] [place] RDW 12.1 11.5 - 14.5 % 09/19/2024 6:19 PM LEATHER BELT LOOP CUTTER [facility] [place] RDW-STDEV 39.8 34.0 - 54.0 fL 09/19/2024 6:19 PM LEATHER BELT LOOP CUTTER [facility] PLATELETS 155 150 - 400 K/uL 09/19/2024 6:19 PM LEATHER BELT LOOP CUTTER [facility] MPV 11.1 8.5 - 12.5 fL 09/19/2024 6:19 PM LEATHER BELT LOOP CUTTER [facility] NEUTROPHILS 64 50 - 70 % 09/19/2024 6:19 PM LEATHER BELT LOOP CUTTER [facility] LYMPHOCYTES 26 20 - 40 % 09/19/2024 6:19 PM LEATHER BELT LOOP CUTTER [facility] MONOCYTES 7 2 - 8 % 09/19/2024 6:19 PM LEATHER BELT LOOP CUTTER [facility] EOSINOPHILS 2 1 - 3 % 09/19/2024 6:19 PM LEATHER BELT LOOP CUTTER [facility] BASOPHILS 1 0 - 1 % 09/19/2024 6:19 PM LEATHER BELT LOOP CUTTER [facility] IMMATURE GRANULOCYTES 0 0 - 2 % 09/19/2024 6:19 PM LEATHER BELT LOOP CUTTER [facility] NEUTROPHIL ABSOLUTE 4.38 1.80 - 7.70 K/uL 09/19/2024 6:19 PM LEATHER BELT LOOP CUTTER [facility] LYMPHOCYTE ABSOLUTE 1.81 1.00 - 3.30 K/uL 09/19/2024 6:19 PM LEATHER BELT LOOP CUTTER [facility] MONOCYTE ABSOLUTE 0.48 0.00 - 0.80 K/uL 09/19/2024 6:19 PM LEATHER BELT LOOP CUTTER [facility] EOSINOPHIL ABSOLUTE 0.11 0.00 - 0.45 K/uL 09/19/2024 6:19 PM [facility] LABORATORY [facility] BASOPHILS ABSOLUTE 0.06 0.00 - 0.20 K/uL 09/19/2024 6:19 PM [facility] IMMATURE GRANULOCYTES ABSOLUTE 0.02 0.00 - 0.31 K/uL 09/19/2024 6:19 PM [facility] Blood Collection / Unknown 09/19/2024 5:59 PM LEATHER [employer]T LOOP CUTTER 09/19/2024 6:03 PM LEATHER BELT LOOP CUTTER us Asif Isabel MD HEMATOLOGY ORDERABLES Fin al Result [facility] CLIA # [id number] [address] [place] [address] * (ABNORMAL) COMPREHENSIVE METABOLIC PANEL (09/19/2024 5:59 PM LEATHER BELT LOOP CUTTER) Only the most recent of7 resultswithin the time period is included. SODIUM 135(L) 136 - 145 mmol/L 09/19/2024 6:48 PM [facility] [employer] [facility] POTASSIUM 4.6 3.5 - 5.1 mmol/L 09/19/2024 6:48 PM [facility] LABORATORY [facility] Comment:Moderate hemolysis p resent. Can cause significant falsely elevated result. Redraw if indicated. CHLORIDE 95(L) 98 - 107 mmol/L 09/19/2024 6:48 PM [facility] CO2 22 22 - 29 mmol/L 09/19/2024 6:48 PM [facility] CALCIUM 9.3 8.6 - 10.0 mg/dL 09/19/2024 6:48 PM [facility] BUN 22(H) 6 - 20 mg/dL 09/19/2024 6:48 PM [facility] CREATININE 0.84 0.67 - 1.17 mg/dL 09/19/2024 6:48 PM [facility] GLUCOSE 91 74 - 99 mg/dL 09/19/2024 6:48 PM [facility] TOTAL PROTEIN 7.7 6.6 - 8.7 g/dL 09/19/2024 6:48 PM [facility] ALBUMIN 4.3 4.0 - 5.0 g/dL 09/19/2024 6:48 PM [facility] BILIRUBIN TOTAL 0.5 <=1.2 mg/dL 09/19/2024 6:48 PM [facility] ALKALINE PHOSPHATASE 79 40 - 129 U/L 09/19/2024 6:48 PM [facility] AST 41 <=41 U/L 09/19/2024 6:48 PM [facility] Comment:Hemolysis present. R esult may be falsely elevated. ALT 41 <=41 U/L 09/19/2024 6:48 PM [facility] Comment:Hemolysis present. R esult may be falsely elevated. GFR >60 >=60 mL/min/1.7 3 sq meter 09/19/2024 6:48 PM [facility] Comment:eGFR calculated with 2020 CKD-EPI equation. Vegetarian diet, extremely high or low muscle mass, and may affect results. Cystatin C with Glomerular Filtration Rate is a suitable alternative for these patients. ANION GAP 18(H) 5 - 15 mmol/L 09/19/2024 6:48 PM [facility] Blood Collection / Unknown 09/19/2024 5:59 PM LEATHER BELT LOOP CUTTER 09/19/2024 6:10 PM LEATHER BELT LOOP CUTTER us Asif Isabel MD CHEMISTRY ORDERABLES Lorenza l Result [facility] CLIA # [id number] [facility] [address] [place] [address] * TROPONIN 2 HR, 5TH GEN (09/17/2024 1:35 AM LEATHER BELT LOOP CUTTER) Only the most recent of2 resultswithin the time period is included. TROPONIN T, 2 HR 5TH GEN <6 <=15 ng/L 09/17/2024 2:08 AM LEATHER BELT LOOP CUTTER [facility] Blood Venipuncture / Unknown 09/17/2024 1:35 AM LEATHER BELT LOOP CUTTER 09/17/2024 1:40 AM LEATHER BELT LOOP CUTTER Narrative [facility] - 09/17/2024 2:08 AM LEATHER BELT LOOP CUTTER Troponin Undetectable Delay in collection of timed specimen beyond recommended collection interval. Results must be interpreted in clinical context. Unable to calculate delta. Nolan Lee MD CHEMISTRY ORDERABLES Final R esult Performing Organization Address City/[facility]/ZIP Co de Phone Number [facility] CLIA# [id number] [place] [address] * TROPONIN BASELINE, 5TH GEN (09/16/2024 9:13 PM LEATHER BELT LOOP CUTTER) Only the most recent of2 resultswithin the time period is included. TROPONIN T, BASELINE 5TH GEN <6 <=15 ng/L 09/16/2024 9:58 PM LEATHER BELT LOOP CUTTER [facility] Blood Venipuncture / Unknown 09/16/2024 9:13 PM LEATHER BELT LOOP CUTTER 09/16/2024 9:20 PM LEATHER BELT LOOP CUTTER Narrative [facility] - 09/16/2024 9:58 PM LEATHER BELT LOOP CUTTER Troponin Undetectable Nolan Lee MD CHEMISTRY ORDERABLES Final R esult Performing Organization Address City/[facility]/ZIP Co de Phone Number [facility] CLIA# [id number] [place] [address] * EKG 12-LEAD (09/16/2024 9:02 PM LEATHER BELT LOOP CUTTER) Only the most recent of2 resultswithin the time period is included. 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: aw : 1980 Requested By: Order Number: [id number] Reading MD: Randy Haines Measurements Intervals [place] Rate: 77 P: 76 HI: 168 QRS: 87 QRSD: 90 T: 46 QT: 372 QTc: 420 Interpretive Statements Normal sinus rhythm Normal ECG Compared to ECG 08/11/2024 21:58:55 No significant changes Electronically Signed On 09-16-2024 22:35:15 LEATHER BELT LOOP CUTTER by Randy Haines Procedure Note Randy Haines MD - 09/16/2024 [place] [address] Test Date: 2024-09-16 Pat Name: LISA MCCOY Department: 94 Room: Gender: Male Turf Grower: : 1980 Requested By: Order Number: [id number] Reading MD: Randy Haines Measurements Intervals [place] Rate: 77 P: 76 HI: 168 QRS: 87 QRSD: 90 T: 46 QT: 372 QTc: 420 Interpretive Statements Normal sinus rhythm Normal ECG Compared to ECG 08/11/2024 21:58:55 No significant changes Electronically Signed On 09-16-2024 22:35:15 LEATHER BELT LOOP CUTTER by Randy Haines us Nolan Lee MD ECG ORDERABLES Final Result Performing Organization Address City/State/[facility] Co de Phone Number INTERFACE SYSTEM Refer to clinic/hospital department * (ABNORMAL) POC GLUCOSE (09/14/2024 11:51 PM LEATHER BELT LOOP CUTTER) GLUCOSE POC 119(H) 74 - 99 mg/dL 09/14/2024 11:51 PM LEATHER BELT LOOP CUTTER [facility] SPECIMEN SOURCE, GLUCOSE POC Whole Blood 09/14/2024 11:51 PM LEATHER BELT LOOP CUTTER [facility] Blood, whole 09/14/2024 11:5 1 PM LEATHER BELT LOOP CUTTER 09/14/2024 11:58 PM LEATHER BELT LOOP CUTTER us Interface Provider Poct POINT OF CARE TESTING Fi nal Result [facility] [employer] [facility] [id number] [address] [place] [address] * XR CHEST PA AND LATERAL 2 VW (09/09/2024 1:17 AM LEATHER BELT LOOP CUTTER) Only the most recent of3 resultswithin the time period is included. Anatomical Region Laterality Modality Chest Computed Radiogr aphy 09/09/2024 1:18 AM LEATHER BELT LOOP CUTTER Impressions 09/09/2024 7:11 AM LEATHER BELT LOOP CUTTER IMPRESSION: Negative chest. DICTATION LOCATION: [address] Narrative 09/09/2024 7:11 AM LEATHER BELT LOOP CUTTER XR CHEST PA AND LATERAL 2 VW [...] None. IMPRESSION: Negative chest. DICTATION LOCATION: Location [address] [place] [address] Mark Andrews DO DIAGNOSTIC IMAGING ORDERABLES Final Result * RESPIRATORY PATHOGEN PCR PANEL (09/08/2024 11:43 PM LEATHER BELT LOOP CUTTER) Pathologist [facility] Respiratory Pathogen PCR Panel NOT DETECTED No respiratory pathogen nucleic acids detected. 09/09/2024 1:04 AM [facility] COVID-19 PCR NOT DETECTED Not Detected 09/09/2024 1:04 AM [facility] Upper Respiratory ENTIRE NASOPHARYNX / Unknown Collection / Unknown 09/08/2024 11:43 PM LEATHER BELT LOOP CUTTER 09/08/2024 11:49 PM LEATHER BELT LOOP CUTTER [facility] - 09/09/2024 1:04 AM LEATHER BELT LOOP CUTTER The Film Array Respiratory Panel (RP2.1) is [...] MICROBIOLOGY - GENERAL ORDERAB LES Final Result [facility]# [id number] 5 [facility] [place] [address] * CT CHEST ABDOMEN PELVIS W CONT (08/21/2024 6:55 PM LEATHER BELT LOOP CUTTER) Anatomical Region Laterality Modality Chest Computed Tomogra phy 08/21/2024 6:41 PM LEATHER BELT LOOP CUTTER Impressions 08/21/2024 7:15 PM LEATHER BELT LOOP CUTTER IMPRESSION: 1. No acute findings in the chest/abdomen/pelvis. Dictation location: Location 4 Narrative 08/21/2024 7:15 PM LEATHER BELT LOOP CUTTER CT CHEST ABDOMEN PELVIS W CONT TECHNIQUE: [...] Result * POC CREATININE (08/21/2024 4:35 PM LEATHER BELT LOOP CUTTER) CREATININE POC 1.10 0.70 - 1.20 mg/dL 08/21/2024 4:35 PM LEATHER BELT LOOP CUTTER [facility] [employer] [facility] GFR POC >60 >=60 mL/min/1.7 3 sq meter 08/21/2024 4:35 PM LEATHER BELT LOOP CUTTER [facility] [employer] [facility] Comment:eGFR calculated with 2020 CKD-EPI equation. Vegetarian diet, extremely high or low muscle mass, and may affect results. Cystatin C with Glomerular Filtration Rate is a suitable alternative for these patients. Blood, whole 08/21/2024 4:35 PM LEATHER BELT LOOP CUTTER 08/21/2024 4:39 PM LEATHER BELT LOOP CUTTER Carmelo Snow MD POINT OF CARE TESTING Final R esult Performing Organization Address [facility]/ZIP Co de Phone Number [facility]# [id number] [address] [place] [address] * C-REACTIVE PROTEIN (08/21/2024 4:27 PM LEATHER BELT LOOP CUTTER) [facility] CRP <3.0 <5.0 mg/L 08/21/2024 5:33 PM LEATHER BELT LOOP CUTTER [facility] Blood Venipuncture / Unknown 08/21/2024 4:27 PM LEATHER BELT LOOP CUTTER 08/21/2024 4:39 PM LEATHER BELT LOOP CUTTER Carmelo Snow MD CHEMISTRY ORDERABLES Final Re sult Performing Organization Address [facility]/ZIP Co de Phone Number [facility] [employer] [facility]# [id number] [address] [place] [address] * INFLUENZA A/B, RSV AND COVID-19 PCR PANEL (08/21/2024 3:11 PM LEATHER BELT LOOP CUTTER) [facility] COVID-19 PCR NOT DETECTED Not Detected 08/21/19 4:37 PM LEATHER BELT LOOP CUTTER [facility] Influenza A by PCR NOT DETECTED Not Detected 08/21/2024 4:37 PM LEATHER BELT LOOP CUTTER [facility] [employer] [facility] Influenza B by PCR NOT DETECTED Not Detected 08/21/2024 4:37 PM LEATHER BELT LOOP CUTTER [facility] [employer] [facility] RSV by PCR NOT DETECTED Not Detected 08/21/2024 4:37 PM LEATHER BELT LOOP CUTTER [facility] [employer] [facility] Upper Respiratory ENTIRE NASOPHARYNX / Unknown Collection / Unknown 08/21/2024 3:11 PM LEATHER BELT LOOP CUTTER 08/21/2024 3:22 PM LEATHER BELT LOOP CUTTER Narrative [facility] - 08/21/2024 4:37 PM LEATHER BELT LOOP CUTTER This test has been authorized by the [...] Coronavirus. Mike Sandoval DO MICROBIOLOGY - GENERAL [place] Final Result [facility]# [id number] [address] [place] [address] * TSH (08/21/2024 2:08 PM LEATHER BELT LOOP CUTTER) Pathologist [facility] TSH 1.85 0.40 - 4.50 mIU/L [facility] mando Abdi Comment: FASTING:NO FASTING: NO Test Performed at: [facility] [address] [place] [address] [facility] Blood 08/21/2024 2:08 PM LEATHER BELT LOOP CUTTER 08/21/2024 2:08 PM LEATHER BELT LOOP CUTTER Jerel Camejo MD CHEMISTRY ORDERABLES Final Resul t [facility] [phone] [facility] [address] [place] [address] * HEMOGLOBIN A1C (08/21/2024 2:08 PM LEATHER BELT LOOP CUTTER) Pathologist [facility] HEMOGLOBIN A1C 5.1 <5.7 % of total Hgb [facility] Comment: For the purpose of screening for the presence of diabetes: <5.7% Consistent with the absence of diabetes 5.7-6.4% Consistent with increased risk for diabetes (prediabetes) > or =6.5% Consistent with diabetes This assay result is consistent with a decreased risk of diabetes. Currently, no consensus exists regarding use of hemoglobin A1c for diagnosis of diabetes in children. According to [place] Diabetes Association (ADA) guidelines, hemoglobin A1c <7.0% represents optimal control in non- diabetic patients. Different metrics may apply to specific patient populations. Standards of Medical Care in Diabetes(ADA). ESTIMATED AVERAGE GLUCOSE (MG/DL) 100 mg/dL [facility]di ESTIMATED AVERAGE GLUCOSE (MMOL/L) 5.5 mmol/L [facility] Comment: FASTING:NO FASTING: NO Test Performed at: [facility] [address] [address] [facility] Blood 08/21/2024 2:08 PM LEATHER BELT LOOP CUTTER 08/21/2024 2:08 PM LEATHER BELT LOOP CUTTER us Jerel Camejo MD CHEMISTRY ORDERABLES Final Resul t [facility] [phone] [place] [address] [place] [address] * LIPID PANEL (08/21/2024 2:08 PM LEATHER BELT LOOP CUTTER) CHOLESTEROL 149 <200 mg/dL [facility] HDL 67 > OR = 40 mg/dL [facility] [place] TRIGLYCERIDE 57 <150 mg/dL [facility] gilmore Abdi LDL CALCULATED 69 mg/dL (calc) [facility] Comment: Reference range: <100 Desirable range <100 mg/dL for primary prevention; <70 mg/dL for patients with CHD or diabetic patients with > or = 2 CHD risk factors. LDL-C is now calculated using the Fernando-Maritza calculation, which is a validated novel method providing better accuracy than the Friedewald equation in the estimation of LDL-C. Fernando MEYER et al. GURDEEP. 2013;310(19): 4949-4209 (http://education.KDPOF/faq/PLO950) CHOL/HDL RATIO 2.2 <5.0 (calc) [facility] [place] NON-HDL CHOLESTEROL 82 <130 mg/dL (calc) [facility] gilmore Abdi Comment: For patients with diabetes plus 1 major ASCVD risk factor, treating to a non-HDL-C goal of <100 mg/dL (LDL-C of <70 mg/dL) is considered a therapeutic option. Test Performed at: [facility] [address] [place] [address] [facility] Blood 08/21/2024 2:08 PM LEATHER BELT LOOP CUTTER 08/21/2024 2:08 PM LEATHER BELT LOOP CUTTER Jerel Camejo MD CHEMISTRY ORDERABLES Final Resul t [facility] [phone] [facility] [address] [place] [address] * CT HEAD WO CONTRAST (08/11/2024 10:18 PM LEATHER BELT LOOP CUTTER) Anatomical Region Laterality Modality Head Computed Tomogra phy 08/11/2024 10:1 8 PM LEATHER BELT LOOP CUTTER Impressions 08/11/2024 10:25 PM LEATHER BELT LOOP CUTTER IMPRESSION: 1. No acute intracranial findings. Dictation location: Location 4 Narrative 08/11/2024 10:25 PM LEATHER BELT LOOP CUTTER Indication: Syncope Study: CT head without IV [...] acute intracranial findings. Dictation location: Location [address] ORDERABLES Final Result from Last 3 [place] [address] [facility] [place] [address] [facility] MEDICAID Care Teams Iv Rn Relationship Specialty [place] [address] [place] [address] PCP - General Family Practice 12/01/22
--- OUTSIDE RECORDS SUMMARY | 2024-09-21 20:52 | XMS_ITS | Encounter Summary ---
Author Organization [facility] Address [address] Attn: Epic Prelude ADT [place] [address] Care Team Providers Care Embroidery Finisher Name Role Phone Jerel Camejo MD Primary Care Provider Encounter Details Date Type Department Care Team (Latest Contact Info) Description 09/20/2024 Travel Social History Tobacco Use Types Packs/Day Years [...] on file Legal Sex Male 7:43 PM PRODUCT MARKETING SPECIALIST Gender Identity Not on file Sexual Orientation Not on file documented as of this encounter Plan of Treatment Upcoming Encounters Date Type Department Care Team (Late st Contact Info) Description 08/27/2025 11:30 AM PRODUCT MARKETING SPECIALIST Office Visit [facility] Internal Medicine - [place] [address] [facility] [address] [facility] [place] [address] [place] [address] [address] documented as of this encounter Visit Diagnoses Not on filedocumented in this encounter Care Teams Embroidery Finisher Relationship Specialty [place] [address] [address] PCP - General Family Practice 12/01/22 documented as of this encounter
--- OUTSIDE RECORDS SUMMARY | 2024-09-21 20:52 | XMS_ITS | Encounter Summary ---
Author Organization [facility] Address [address] [place] [address] Care Team Providers Care Display Designer Name Role Phone Jerel Camejo MD Primary Care Provider [phone] Reason for Visit * Reason Comments Leg Swelling Bilat. Leg swelling worsening the last 4 days. PT reports problems with leg swelling intermittent the last 8 years. PT was seen at an urgent care RN FIRST ASSISTANT told it was venous insufficiency PT just wanted to get a second opinion * Auth/Cert (Routine) Specialty Diagnoses / Procedures Referred By Contac t Referred To Contact Emergency Medicine [facility] [address] [place] [id number] Phone: tel: fax: Referral ID Status Reason Start Date Expiration Date Visits Re quested Visits Authorized [id number] 1 1 Encounter Details Date Type Department Care Team (Late st Contact Info) Description 09/19/2024 5:58 PM MANUFACTURING TEST TECHNICIAN - 09/19/2024 6:44 PM MANUFACTURING TEST TECHNICIAN Emergency [facility] [address] [place] [phone] Asif Isabel MD [address] [place] [phone] Peripheral edema (Primary Dx) Discharge Disposition: Home [...] on file Legal Sex Male 7:43 PM MANUFACTURING TEST TECHNICIAN Gender Identity Not on file Sexual Orientation Not on file documented as of this encounter Last Filed Vital Signs Vital Sign Reading Time Taken Comments Blood Pressure 115/80 09/19/2024 5:53 PM MANUFACTURING TEST TECHNICIAN Pulse - - Temperature 36.3 C (97.4 F) 09/19/2024 5:53 PM MANUFACTURING TEST TECHNICIAN Respiratory Rate 16 09/19/2024 5:53 PM MANUFACTURING TEST TECHNICIAN Oxygen Saturation 98% 09/19/2024 5:53 PM MANUFACTURING TEST TECHNICIAN Inhaled Oxygen Concentration - - Weight 74.8 kg (165 lb) 09/19/2024 5:53 PM MANUFACTURING TEST TECHNICIAN Height 172.7 cm (5' 8 ) 09/19/2024 5:53 PM MANUFACTURING TEST TECHNICIAN Body Mass Index 25.09 09/19/2024 5:53 PM MANUFACTURING TEST TECHNICIAN documented in this encounter Discharge Instructions * Attachments The following attachments cannot be sent through Care Everywhere. * Edema: Leg and Ankle (Italian) documented in this encounter Medications at Time of Discharge ondansetron (ZOFRAN ODT) 4 mg Tablet, Rapid Dissolve Take 1 Tablet (4 mg) by mouth every 8 hours as needed for Nausea/Emesis. Dissolve tablet on top of tongue, then swallow with saliva. 30 Tablet 09/15/2024 09/25/2024 documented as of this encounter ED Notes * Asif Isabel MD - 09/19/2024 5:49 PM CST Presenting Illness: Bilateral leg swelling HISTORY OF PRESENT ILLNESS 6:13 PM Samuel Mccoy is a 44 y.o. male with a history of peripheral edema with several emergency room visits for leg edema, presents to the ED for evaluation of bilateral leg swelling. Patient reports intermittent swelling to bilateral lower extremities for the past eight years. It has been worsening over the past four days. 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 No further complaints at this time. History provided by: The patient japanese interpreter used: No Arrived by: Private vehicle Arrived from: Home PAST MEDICAL HISTORY REVIEWED MEDICAL: Patient has a past medical history of Leg swelling. SURGICAL: Patient has a past surgical history that includes cholecystectomy (08/01/2019); surgical other (07/2020); and esophagogastroduodenoscopy (08/03/2019). ALLERGIES Iodinated contrast media PHYSICAL EXAM INITIAL VS BP: 115/80 (09/19/241752), Heart Rate: 79 bpm (09/19/241752), Resp: 16 (09/19/241752), Pulse: (not recorded), Temp: 97.4 ??F (36.3 ??C) (09/19/241752), Temp src: Tympanic (09/19/241752), SpO2: 98 % (09/19/241752), Height: 5' 8 (172.7 cm) (09/19/241752), Weight: 74.8 kg (165 lb) (09/19/241752), BMI (Calculated): (!) 25.08 (09/19/241752) No LMP for male patient. Physical Exam Vitals and nursing note reviewed. Constitutional: Appearance: He is well-developed. HENT: Head: Normocephalic and atraumatic. Nose: Nose normal. Eyes: General: No scleral icterus. Pupils: Pupils are equal, round, and reactive to light. Neck: Thyroid: No thyromegaly. Vascular: No JVD. Cardiovascular: Rate and Rhythm: Normal rate and regular rhythm. Heart sounds: Normal heart sounds. No murmur heard. Pulmonary: Effort: Pulmonary effort is normal. No respiratory distress. Breath sounds: Normal breath sounds. Comments: No basal crackles Chest: Chest wall: No tenderness. Abdominal: General: Bowel sounds are normal. There is no distension. Palpations: Abdomen is soft. There is no mass. Tenderness: There is no abdominal tenderness. Musculoskeletal: General: Normal range of motion. Cervical back: Neck supple. Right lower leg: Edema present. Left lower leg: Edema present. Lymphadenopathy: Cervical: No cervical adenopathy. Skin: General: Skin is warm and dry. Findings: No rash. Neurological: Mental Status: He is alert and oriented to person, place, and time. Cranial Nerves: No cranial nerve deficit. Psychiatric: Behavior: Behavior normal. Thought Content: Thought content normal. Judgment: Judgment normal. Differential diagnoses: 1. Peripheral edema 2. Diastolic heart failure DIAGNOSTICS LAB: CBC WITH DIFFERENTIAL - Normal Result Value WBC 6.9 RBC 4.85 HEMOGLOBIN 14.4 HEMATOCRIT 43.8 MCV 90.3 MCH 29.7 MCHC 32.9 RDW 12.1 RDW-STDEV 39.8 PLATELETS 155 MPV 11.1 NEUTROPHILS 64 LYMPHOCYTES 26 MONOCYTES 7 EOSINOPHILS 2 BASOPHILS 1 IMMATURE GRANULOCYTES 0 NEUTROPHIL ABSOLUTE 4.38 LYMPHOCYTE ABSOLUTE 1.81 MONOCYTE ABSOLUTE 0.48 EOSINOPHIL ABSOLUTE 0.11 BASOPHILS ABSOLUTE 0.06 IMMATURE GRANULOCYTES ABSOLUTE 0.02 MANUAL DIFFERENTIAL PLATELET EST. Consistent w Count RBC MORPHOLOGY Normal COMPREHENSIVE METABOLIC PANEL EXTRA TUBE EXTRA TUBE (BLUE) RADIOLOGY: No orders to display EKG: PROCEDURES Procedures MEDICAL DECISION MAKING AND PLAN OF CARE Medical Decision Making Medical Decision Making: Summary: 44 y.o. male with history of peripheral edema with several emergency visits for leg edema presents for evaluation of bilateral leg swelling. Physical exam findings include bilateral leg edema, no distended neck veins, and no basal crackles. Lab results showed no acute abnormality. Patient was treated with lasix in the ED and ultimately discharged with outpatient followup. Differential diagnosis includes, but is not limited to, peripheral edema, diastolic heart failure. By virtue of history and physical, some of these diagnoses can be excluded. The following social determinants of health affected my care of this patient: None I considered admission vs discharge, and, through shared decision making with the patient when appropriate, the decision was made to Discharge. Amount and/or Complexity of Data Reviewed External Data Reviewed: notes. Labs: ordered. Risk Prescription drug management. Clinical Scoring & Consults . New Prescriptions for this Encounter LAST VS BP: 115/80 (09/19/241752), Heart Rate: 79 bpm (09/19/241752), Resp: 16 (09/19/241752), Pulse: (not recorded), Temp: 97.4 ??F (36.3 ??C) (09/19/241752), Temp src: Tympanic (09/19/241752), SpO2: 98 % (09/19/241752) CLINICAL IMPRESSION Final diagnoses: [R60.0] Peripheral edema (Primary) DISPOSITION, EDUCATION AND MEDICATION RECONCILIATION Medications reconciled. See after visit summary for patient education on discharged patients. ED Disposition ED Disposition Discharge Condition Stable User Asif Isabel MD Date/Time WedSep 19, 2024 6:24 PM Comment -- ATTESTATION STATEMENTS Physician attestation: The scribe's documentation has been prepared under my direction and personally reviewed by me in its entirety. I confirm that the note above accurately reflects all work, treatment, procedures, and medical decision making performed by Asif Isabel MD.. [facility] scribing for and in the presence of Asif Isabel M.D. on 09/19/24 Diagnosis Diagnosis Comment Added By Time Added Peripheral edema [R60.0] Asif Isabel MD 09/19/2024 6:23 PM FACTURING TEST TECHNICIAN documented in this encounter Miscellaneous Notes * Gen AI RUTH - GENERATIVE AI HANDOFF NOTE - 09/20/2024 11:27 PM CST ## ER_course: ## # DIAGNOSIS: Peripheral edema. # The patient, Samuel Mccoy, a 44-year-old male, presented with bilateral leg swelling, a condition he has experienced intermittently for the past eight years. The swelling worsened over the past four days. He requested an IV diuretic, stating it is the only effective treatment for him. # During the ER visit, the patient was treated with Lasix. Physical examination revealed bilateral leg edema, but no distended neck veins or basal crackles. Lab results showed no acute abnormalities. # Differential diagnoses considered included peripheral edema and diastolic heart failure, but some were excluded based on history and physical examination. ## Follow_up_orders: ## # The patient was discharged with outpatient follow-up recommended. # No new prescriptions were noted in the ER course, but medication reconciliation was completed. # The patient was advised to follow up with his primary care provider for further management of his peripheral edema. ## Home_Situation: ## # No social determinants of health were noted to affect the care of this patient. FACTURING TEST TECHNICIAN documented in this encounter Plan of Treatment Upcoming Encounters Date Type Department Care Team (Late st Contact Info) Description 08/27/2025 11:30 AM MANUFACTURING TEST TECHNICIAN Office Visit [facility] Internal Medicine - [place] [address] [place] [address] [place] [address] [place] [address] documented as of this encounter Procedures Procedure Name Priority Date/Time Associated Diagnosis Comments EXTRA TUBE (BLUE) Stat 09/19/2024 6:0 3 PM MANUFACTURING TEST TECHNICIAN EXTRA TUBE Stat 09/19/2024 6:03 PM MANUFACTURING TEST TECHNICIAN DIFFERENTIAL, MANUAL Stat 09/19/2024 5:59 PM MANUFACTURING TEST TECHNICIAN CBC WITH DIFFERENTIAL Stat 09/19/2024 5:59 PM MANUFACTURING TEST TECHNICIAN COMPREHENSIVE METABOLIC PANEL Stat 09/19/2024 5:59 PM MANUFACTURING TEST TECHNICIAN documented in this encounter Results * EXTRA TUBE (BLUE) (09/19/2024 6:03 PM MANUFACTURING TEST TECHNICIAN) Blood Venipuncture / Unknown 09/19/2024 6:03 PM MANUFACTURING TEST TECHNICIAN 09/19/2024 6:36 PM MANUFACTURING TEST TECHNICIAN Asif Isabel MD HEMATOLOGY ORDERABLES Fin al Result [facility] CLIA # [id number] [address] [place] [address] * MANUAL DIFFERENTIAL (09/19/2024 5:59 PM MANUFACTURING TEST TECHNICIAN) PLATELET EST. Consistent w Count 09/19/2024 6:19 PM MANUFACTURING TEST TECHNICIAN [facility] [place] RBC MORPHOLOGY Normal 09/19/2024 6:19 PM MANUFACTURING TEST TECHNICIAN [facility] [place] Blood Collection / Unknown 09/19/2024 5:59 PM MANUFACTURING TEST TECHNICIAN 09/19/2024 6:03 PM MANUFACTURING TEST TECHNICIAN Asif Isabel MD HEMATOLOGY ORDERABLES COM Final Result [facility] CLIA # [id number] [address] [place] [address] * (ABNORMAL) COMPREHENSIVE METABOLIC PANEL (09/19/2024 5:59 PM MANUFACTURING TEST TECHNICIAN) SODIUM 135(L) 136 - 145 mmol/L 09/19/2024 6:48 PM [facility] POTASSIUM 4.6 3.5 - 5.1 mmol/L 09/19/2024 6:48 PM [facility] Comment:Moderate hemolysis p resent. Can cause significant falsely elevated result. Redraw if indicated. CHLORIDE 95(L) 98 - 107 mmol/L 09/19/2024 6:48 PM [facility] CO2 22 22 - 29 mmol/L 09/19/2024 6:48 PM [facility] CALCIUM 9.3 8.6 - 10.0 mg/dL 09/19/2024 6:48 PM [facility] BUN 22(H) 6 - 20 mg/dL 09/19/2024 6:48 PM [facility] CREATININE 0.84 0.67 - 1.17 mg/dL 09/19/2024 6:48 PM [facility] GLUCOSE 91 74 - 99 mg/dL 09/19/2024 6:48 PM [facility] TOTAL PROTEIN 7.7 6.6 - 8.7 g/dL 09/19/2024 6:48 PM [facility] ALBUMIN 4.3 4.0 - 5.0 g/dL 09/19/2024 6:48 PM [facility] BILIRUBIN TOTAL 0.5 <=1.2 mg/dL 09/19/2024 6:48 PM [facility] ALKALINE PHOSPHATASE 79 40 - 129 U/L 09/19/2024 6:48 PM [facility] AST 41 <=41 U/L 09/19/2024 6:48 PM [facility] Comment:Hemolysis present. R esult may be falsely elevated. ALT 41 <=41 U/L 09/19/2024 6:48 PM [facility] Comment:Hemolysis present. R esult may be falsely elevated. GFR >60 >=60 mL/min/1.7 3 sq meter 09/19/2024 6:48 PM [facility] Comment:eGFR calculated with 2020 CKD-EPI equation. Vegetarian diet, extremely high or low muscle mass, and may affect results. Cystatin C with Glomerular Filtration Rate is a suitable alternative for these patients. ANION GAP 18(H) 5 - 15 mmol/L 09/19/2024 6:48 PM [facility] Blood Collection / Unknown 09/19/2024 5:59 PM MANUFACTURING TEST TECHNICIAN 09/19/2024 6:10 PM MANUFACTURING TEST TECHNICIAN Asif Isabel MD CHEMISTRY ORDERABLES Lorenza l Result [facility] CLIA # [id number] [address] [place] [id number] * CBC WITH DIFFERENTIAL (09/19/2024 5:59 PM MANUFACTURING TEST TECHNICIAN) WBC 6.9 4.0 - 11.0 K/uL 09/19/2024 6:19 PM [facility] RBC 4.85 4.60 - 6.20 M/uL 09/19/2024 6:19 PM [facility] HEMOGLOBIN 14.4 13.5 - 17.0 g/dL 09/19/2024 6:19 PM [facility] HEMATOCRIT 43.8 40.0 - 54.0 % 09/19/2024 6:19 PM [facility] MCV 90.3 80.0 - 98.0 fL 09/19/2024 6:19 PM [facility] MCH 29.7 26.0 - 34.0 pg 09/19/2024 6:19 PM [facility] MCHC 32.9 31.0 - 37.0 g/dL 09/19/2024 6:19 PM [facility] RDW 12.1 11.5 - 14.5 % 09/19/2024 6:19 PM [facility] [place] RDW-STDEV 39.8 34.0 - 54.0 fL 09/19/2024 6:19 PM [facility] [place] PLATELETS 155 150 - 400 K/uL 09/19/2024 6:19 PM [facility] MPV 11.1 8.5 - 12.5 fL 09/19/2024 6:19 PM [facility] NEUTROPHILS 64 50 - 70 % 09/19/2024 6:19 PM [facility] LYMPHOCYTES 26 20 - 40 % 09/19/2024 6:19 PM [facility] MONOCYTES 7 2 - 8 % 09/19/2024 6:19 PM [facility] EOSINOPHILS 2 1 - 3 % 09/19/2024 6:19 PM [facility] BASOPHILS 1 0 - 1 % 09/19/2024 6:19 PM [facility] IMMATURE GRANULOCYTES 0 0 - 2 % 09/19/2024 6:19 PM [facility] NEUTROPHIL ABSOLUTE 4.38 1.80 - 7.70 K/uL 09/19/2024 6:19 PM [facility] [place] LYMPHOCYTE ABSOLUTE 1.81 1.00 - 3.30 K/uL 09/19/2024 6:19 PM [facility] MONOCYTE ABSOLUTE 0.48 0.00 - 0.80 K/uL 09/19/2024 6:19 PM [facility] EOSINOPHIL ABSOLUTE 0.11 0.00 - 0.45 K/uL 09/19/2024 6:19 PM MANUFACTURING TEST TECHNICIAN [facility] [place] BASOPHILS ABSOLUTE 0.06 0.00 - 0.20 K/uL 09/19/2024 6:19 PM [facility] [place] IMMATURE GRANULOCYTES ABSOLUTE 0.02 0.00 - 0.31 K/uL 09/19/2024 6:19 PM [facility] Blood Collection / Unknown 09/19/2024 5:59 PM MANUFACTURING TEST TECHNICIAN 09/19/2024 6:03 PM [facility] us Asif Isabel MD HEMATOLOGY ORDERABLES Fin al Result [facility] [place] # [id number] [address] [place] [id number] documented in this encounter Visit Diagnoses Diagnosis Peripheral edema- Primary Edema documented in this encounter Administered Medications Inactive Administered Medications - up to 3 most recent administrations Medication Order MAR Action Action Date Dose Rate Site furosemide (LASIX) injection 20 mg 20 mg, IV, ONE TIME ONLY, 1 dose, On Wed09/19/24 at 1830, Routine Given 09/19/2024 6:39 PM MANUFACTURING TEST TECHNICIAN 20 mg documented in this encounter Active and Recently Administered Medications Times are shown in MANUFACTURING TEST TECHNICIAN. Scheduled Medication Order 09/17/2024 09/18/2024 09/19/2024 furosemide (LASIX) injection 20 mg (COMPLETED) 20 mg, IV, ONE TIME ONLY, 1 dose, On Wed09/19/24 at 1830, Routine 1839 (Given - Provid er: Archana Breaux RN) documented in this encounter Care Teams Display Designer Relationship Specialty [place] [address] [phone] PCP - General Family Practice 12/01/22 documented as of this encounter
--- OUTSIDE RECORDS SUMMARY | 2024-09-21 20:52 | XMS_ITS | Encounter Summary ---
Author Organization [facility] Address [address] [place] [address] Care Team Providers Care Credit Administration Specialist Name Role Phone Jerel Camejo MD Primary Care Provider [phone] Reason for Visit * Reason Onset Date Comments Ambulatory Social Work 09/20/2024 Encounter Details Date Type Department Care Team (Late st Contact Info) Description 09/20/2024 Patient Outreach [facility] Outpatient Care [address] Fourth Floor [place], [place] [id number] Thalia Wall LCSW Ambulatory Social Work Social History Tobacco Use Types Packs/Day Years [...] on file Legal Sex Male 7:43 PM LIME FILTER OPERATOR Gender Identity Not on file Sexual Orientation Not on file documented as of this encounter Progress Notes * Thalia Wall LCSW - 09/20/2024 2:27 PM CST SW attempted to reach patient to touch base on overall status and follow up referral request. Patient did not answer. SW left message requesting call back. SW will remain available. ANGLE Mullen LCSW Outpatient [facility] Social Work [facility] FILTER OPERATOR documented in this encounter Plan of Treatment Upcoming Encounters Date Type Department Care Team (Late st Contact Info) Description 08/27/2025 11:30 AM LIME FILTER OPERATOR Office Visit [facility] Internal Medicine - [place] [address] [place] [address] [place] [address] K[place] [facility] [address] [place] [address] documented as of this encounter Visit Diagnoses Not on filedocumented in this encounter Care Teams Credit Administration Specialist Relationship Specialty Start [place] [address] [place] [facility] [address] [place] [address] PCP - General Family Practice 12/01/22 documented as of this encounter
--- OUTSIDE RECORDS SUMMARY | 2024-09-21 20:52 | XMS_ITS | Clinical Summary ---
Author Organization [facility] [place] [address] [place] [address] Care Team Providers Care Loan Expeditor Name Role Phone Unavailable Primary Care Provider [...] patient's age to complete this topic Insurance [employer] PPO
--- OUTSIDE RECORDS SUMMARY | 2024-09-21 20:52 | XMS_ITS | Encounter Summary ---
Author Organization [facility] Address [address] [place] [address] Care Team Providers Care Command And Control Officer Name Role Phone Jerel Camejo MD Primary Care Provider [phone] Reason for Visit * Reason Comments Leg Swelling 44yoM to ED for leg swelling x couple weeks. Pt reports being seen at [facility] last week and got a diuretic in my IV and is requesting medication at this time. Pt reports being sent PO rx for dieretics but has not filled it. Mild BLE non-pitting edema noted. Pt reports being seen multiple times today and past week for same CC * Auth/Cert (Routine) Specialty Diagnoses / Procedures Referred By Anthony gilmore Referred To Contact Emergency Medicine [facility] Emergency Department [address] [place] [address] Phone: tel: fax: Referral ID Status Reason Start Date Expiration Date Visits Re quested Visits Authorized [id number] 1 1 Encounter Details Date Type Department Care Team (Late st Contact Info) Description 09/20/2024 8:51 PM ROTARY DRIER - 09/20/2024 9:18 PM ROTARY DRIER Emergency [facility] Emergency Department [address] [place] [address] Karlo Dobbs MD [address] [place] [address] Bilateral lower extremity edema (Primary Dx) Discharge [...] on file Legal Sex Male 7:43 PM ROTARY DRIER Gender Identity Not on file Sexual Orientation Not on file documented as of this encounter Last Filed Vital Signs Vital Sign Reading Time Taken Comments Blood Pressure 135/58 09/20/2024 8:40 PM ROTARY DRIER Pulse 78 09/20/2024 8:40 PM ROTARY DRIER Temperature 36.8 C (98.3 F) 09/20/2024 8:40 PM ROTARY DRIER Respiratory Rate 20 09/20/2024 8:40 PM ROTARY DRIER Oxygen Saturation 98% 09/20/2024 8:40 PM ROTARY DRIER Inhaled Oxygen Concentration - - Weight 74.8 kg (165 lb) 09/20/2024 8:40 PM ROTARY DRIER Height 172.7 cm (5' 8 ) 09/20/2024 8:40 PM ROTARY DRIER Body Mass Index 25.09 09/20/2024 8:40 PM ROTARY DRIER documented in this encounter Discharge Instructions * Discharge Instructions* Karlo Dobbs MD - 09/20/2024 9:07 PM ROTARY DRIER Elevate legs at rest Wear compression stockings Fill and take the Furosemide as prescribed RY DRIER RY DRIER * Attachments The following attachments cannot be sent through Care Everywhere. * Edema: Leg and Ankle ([place]gent[place]) documented in this encounter Medications at Time of Discharge ondansetron (ZOFRAN ODT) 4 mg Tablet, Rapid Dissolve Take 1 Tablet (4 mg) by mouth every 8 hours as needed for Nausea/Emesis. Dissolve tablet on top of tongue, then swallow with saliva. 30 Tablet 09/15/2024 09/25/2024 documented as of this encounter ED Notes * Karlo Dobbs MD - 09/20/2024 9:04 PM CST HISTORY OF PRESENT ILLNESS Documented Triage Chief Complaint: Leg Swelling 9:04 PM: Samuel Mccoy is a 44 y.o. male who presents to the Emergency Department with complaints of leg swelling. Patient presents to ED with complaints of leg swelling. 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 Patient states he would like a dose of IV dieretics to reduce the swelling. Patient has been seen for the same complaint multiple times this month. Patient currently has prescription for Lasix which was refilled 2 days ago. Patientstates his medication does not improve his leg swelling. Physician(s): Jerel Camejo MD History provided by: The patient and medical records Arrived by: Private vehicle Arrived from: Home PAST MEDICAL HISTORY REVIEWED MEDICAL: Patient has a past medical history of Leg swelling. SURGICAL: Patient has a past surgical history that includes cholecystectomy (08/01/2019); surgical other (07/2020); and esophagogastroduodenoscopy (08/03/2019). ALLERGIES Iodinated contrast media PHYSICAL EXAM INITIAL VS BP: 135/58 (09/20/242039), Heart Rate: 78 bpm (09/20/242039), Resp: 20 (09/20/242039), Pulse: 78(09/20/242039), Temp: 98.3 ??F (36.8 ??C) (09/20/242039), Temp src: Oral (09/20/242039), SpO2: 98 % (09/20/242039), Height: 5' 8 (172.7 cm) (09/20/242039), Weight: 74.8 kg (165 lb) (09/20/242039), BMI (Calculated): (!) 25.08 (09/20/242039) No LMP for male patient. Physical Exam Vitals reviewed. Constitutional: General: He is not in acute distress. Appearance: Normal appearance. HENT: Head: Normocephalic. Cardiovascular: Rate and Rhythm: Normal rate and regular rhythm. Heart sounds: Normal heart sounds. No murmur heard. Pulmonary: Effort: Pulmonary effort is normal. Breath sounds: Normal breath sounds. Musculoskeletal: General: Normal range of motion. Cervical back: Normal range of motion. Right lower le+ Edema present. Left lower le+ Edema present. Comments: Erythema bilateral legs, healing wound to left leg. Skin: General: Skin is warm and dry. Findings: No rash. Neurological: General: No focal deficit present. Mental Status: He is alert and oriented to person, place, and time. Psychiatric: Behavior: Behavior normal. DIAGNOSTICS LAB: No data to display RADIOLOGY: No orders to display PROCEDURES Procedures MEDICAL DECISION MAKING AND PLAN OF CARE 9:04 PM: On initial evaluation, saw and examined the patient. Medical Decision Making Medical Decision Making: Summary: 44-year-old male presents with leg edema. This is his third visit today. Patient was encouraged to take his p.o. Lasix, elevate his legs and use compression stocking. He was provided 1 dose of Lasix p.o. Differential diagnosis includes, but is not limited to, malingering, CHF, hypoalbuminemia, unlikelyDVT, liver disease. By virtue of history and physical, some of these diagnoses can be excluded. Imaging was interpreted by me and notable for N/A. Non-ED notes reviewed: Multiple ED visits Additional information obtained from independent historian, None. The following social determinants of health potentially complicated the patient's course and were considered in my plan of care: Emergency department super use Risk Prescription drug management. Clinical Scoring & Consults Medications Administered During the ED Stay from 09/20/20242035 to 09/20/2024 2311 Date/Time Order Dose Route Action 09/20/20240 ROTARY DRIER furosemide (LASIX) tablet 20 mg 20 mg Oral Given Discharge Medication List as of 09/20/2024 9:07 PM CONTINUE these medications which have NOT CHANGED Details doxycycline hyclate (VIBRAMYCIN) 100 mg capsule Take 1 Capsule (100 mg) by mouth every 12 hours for10 days. TAKE 40 MINUTES AFTER FOOD, DO NOT TAKE WITH MILK, CHEESE, YOGURT, Disp-20 Capsule, R-0 ondansetron (ZOFRAN ODT) 4 mg Tablet, Rapid Dissolve Take 1 Tablet (4 mg) by mouth every 8 hours asneeded for Nausea/Emesis. Dissolve tablet on top of tongue, then swallow with saliva., Disp-30 Tablet, R-0 furosemide (LASIX) 20 mg tablet Take 20 mg by mouth 2 times daily. LAST VS BP: 135/58 (09/20/242039), Heart Rate: 78 bpm (09/20/242039), Resp: 20 (09/20/242039), Pulse: 78(09/20/242039), Temp: 98.3 ??F (36.8 ??C) (09/20/242039), Temp src: Oral (09/20/242039), SpO2: 98 % (09/20/242039) CLINICAL IMPRESSION Final diagnoses: [R60.0] Bilateral lower extremity edema (Primary) DISPOSITION, EDUCATION AND MEDICATION RECONCILIATION Medications reconciled. See after visit summary for patient education on discharged patients. ED Disposition ED Disposition Discharge Condition Stable User Karlo Dobbs MD Date/Time WedSep 20, 2024 9:06 PM Comment -- ATTESTATION STATEMENTS This note has been prepared by Randy Flores acting as a scribe for Dr. Karlo Dobbs on 09/20/24 at 11:11 PM The scribe's documentation has been prepared under my direction and personally reviewed by me, Dr. Karlo Dobbs, in its entirety on 09/20/24 at 11:11 PM. I confirm that the note above accurately reflects all work, treatment, procedures, and medical decision making performed by me. RY DRIER documented in this encounter Miscellaneous Notes * Gen AI RUTH - GENERATIVE AI HANDOFF NOTE - 09/21/2024 8:29 PM CST ## ER_course: ## # DIAGNOSIS: Bilateral lower extremity edema. # The patient, Samuel Mccoy, a 44-year-old male, presented to the Emergency Department with complaints of leg swelling. This was his third visit for the same issue. 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 The patient has a history of leg swelling and is currently prescribed Lasix, which he reports is ineffective. # During the ER visit, the patient was given a 20 mg dose of Lasix orally. The differential diagnosis included malingering, congestive heart failure (CHF), hypoalbuminemia, unlikely deep vein thrombosis (DVT), and liver disease. Some of these were excluded based on history and physical examination. # Abnormal findings included 1+ edema in both lower legs and erythema with a healing wound on the left leg. No imaging or lab data was available for this visit. ## Follow_up_orders: ## # The patient was advised to continue taking oral Lasix, elevate his legs, and use compression stockings. # No new prescriptions or changes to home medications were made. The patient is to continue doxycycline hyclate and ondansetron as previously prescribed. # No pending tests or imaging were ordered during this visit. ## Home_Situation: ## # The patient is noted as an emergency department super user, which may indicate frequent visits and potential challenges in managing his condition outside the hospital setting. No specific details on transportation, caregiver support, or financial constraints were provided. RY DRIER documented in this encounter Plan of Treatment Upcoming Encounters Date Type Department Care Team (Late st Contact Info) Description 08/27/2025 11:30 AM ROTARY DRIER Office Visit [facility] Internal Medicine - [place] [address] [place] [phone] [place] [address] Kyler Richardson[address] [phone] documented as of this encounter Visit Diagnoses Diagnosis Bilateral lower extremity edema- Primary Edema documented in this encounter Administered Medications Inactive Administered Medications - up to 3 most recent administrations Medication Order MAR Action Action Date Dose Rate Site furosemide (LASIX) tablet 20 mg 20 mg, Oral, ONE TIME ONLY, 1 dose, On Wed09/20/24 at 2115, Routine Given 09/20/2024 9:10 PM ROTARY DRIER 20 mg documented in this encounter Active and Recently Administered Medications Times are shown in ROTARY DRIER. Scheduled Medication Order 09/18/2024 09/19/2024 09/20/2024 furosemide (LASIX) tablet 20 mg (COMPLETED) 20 mg, Oral, ONE TIME ONLY, 1 dose, On Wed09/20/24 at 2115, Routine 2109 (Given - Provid er: Rhona Luna RN) documented in this encounter Care Teams Command And Control Officer Relationship Specialty [place] [address] Kyler Holland [facility] [address] [place] [address] PCP - General Family Practice 12/01/22 documented as of this encounter
--- OUTSIDE RECORDS SUMMARY | 2024-09-21 20:52 | XMS_ITS | Encounter Summary ---
Author Organization [facility] Address [address] [place] [address] Care Team Providers Care Assistant Floor Covering Printer Name Role Phone Jerel Camejo MD Primary Care Provider [phone] Reason for Visit * Reason Comments Sore Throat Pt cc sore throat wi th sinus congestion/drainage, headache, and stomach distress. Onset was yesterday. Encounter Details Date Type Department Care Team (Late st Contact Info) Description 09/21/2024 5:45 PM [address]PUTY CLERK OF COURT Office Visit [facility] [place] [address] [place] [phone] [facility] Kay Melo, [facility] [address] [place] [address] Acute cough (Primary Dx) Social History Tobacco Use Types [...] file Legal Sex Male 7:43 PM DEPUTY CLERK OF COURT Gender Identity Not on file Sexual Orientation Not on file documented as of this encounter Last Filed Vital Signs Vital Sign Reading Time Taken Comments Blood Pressure 110/79 09/21/2024 5:48 PM [address] OF COURT Pulse 80 09/21/2024 5:48 [address] OF COURT Temperature 36.8 C (98.3 F) 09/21/2024 5:48 PM [address] CLERK OF COURT Respiratory Rate 12 09/21/2024 5:48 [address] OF COURT Oxygen Saturation 97% 09/21/2024 5:48 [address] OF COURT Inhaled Oxygen Concentration - - Weight 74.8 kg (165 lb) 09/21/2024 5:48 PM [address]PUT[address] CLERK OF COURT Height 172.7 cm (5' 8 ) 09/21/2024 5:48 PM [address]PUT[address] CLERK OF COURT Body Mass Index 25.09 09/21/2024 5:48 PM DEPUTY CLERK OF COURT documented in this encounter Patient Instructions * Attachments The following attachments cannot be sent through Care Everywhere. * URI (Upper Respiratory Infection): Viral (Nepali) documented in this encounter Progress Notes * Kay Melo FNP - 09/21/2024 5:45 PM CST Assessment and Plan Encounter Diagnosis Name Primary? Acute cough Yes Samuel was seen today for sore throat. Diagnoses and all orders for this visit: Acute cough - POC INFLUENZA A AND B ANTIGEN - POC COVID-19 ANTIGEN Comment: Patient is low risk for complications, vital signs and exam are reassuring. The following higher risk features were not present this visit: Throat abscess, stridor, unstable VS Advised hydration, NSAIDs as needed for pain and fever. Return for follow-up if condition is not improving, follow-up if it is not responding to treatment. Clinical Tools Modified Centor Score Subjective History of present illness Samuel Mccoy is a 44 y.o. male who presents with sore throat Location: bilaterally Duration: several days ago Progression: unchanged Severity: moderate Fever: No Drooling: No Review of Systems Const: see HPI Neck: no neck pain CV: no chest pain Resp: no shortness of breath No outpatient medications have been marked as taking for the 09/21/24 encounter (Office Visit) with Kay Melo FNP. Patient Active Problem List Diagnosis Date Noted Gallbladder adhesions 09/15/2024 Bilateral lower extremity edema 08/26/2024 LAD (lymphadenopathy) 08/21/2024 Coronavirus infection 08/14/2024 Mass of nose 06/15/2022 Overview Note: Added automatically from request for surgery [id number] Leg wound, left 09/13/2019 Chronic abdominal pain 08/12/2019 S/P cholecystectomy 08/12/2019 Vasovagal episode 08/12/2019 Calculus of gallbladder 07/29/2019 Intractable right upper quadrant abdominal pain 07/29/2019 Overview Note: Added automatically from request for surgery [id number] Nausea 07/29/2019 Adjustment disorder with depressed mood in remission 11/05/2018 Generalized abdominal pain 10/25/2018 Sepsis (CMS/HCC) 10/25/2018 Dizziness 10/20/2018 Syncope and collapse 10/20/2018 Social History Tobacco Use Smoking status: Never Smokeless tobacco: Never Vaping Use Vaping status: Never Used Substance Use Topics Alcohol use: Not Currently Drug use: Never Objective Vitals: 09/21/24 1748 BP: 110/79 Pulse: 80 Resp: 12 Temp: 98.3 ??F (36.8 ??C) SpO2: 97% General:?well developed, well nourished, no acute distress. Eyes: No conjunctival injection or discharge. Ear: normal TM without erythema, bulging, effusion Nose/sinus: no congestion or sinus tenderness Throat: tonsillary hypertrophy 2+ Lung: clear, normal work or breathing Neck: No stridor. Normal ROM. Heart: Regular rhythm, no murmurs Psychiatric: Affect and mood normal. Interactive and conversant. Alert and oriented. Skin: Warm and dry without visible rash. Lymphatic: No palpable lymphadenopathy. Non tender nodes. TY CLERK OF COURT documented in this encounter Miscellaneous Notes * Patient Instructions - Kay Melo FNP - 09/21/2024 5:45 PM [address]PUTY CLERK OF COURT Most upper respiratory illnesses/head colds are viral and supportive care is the best course of action. They typically last up to 10-12 days. You can get some OTC medicine to help (decongestant if nohypertension/heart history, expectorant, cough suppressant). Use ibuprofen and/or Tylenol for fever, aches and pain. And be sure to take in plenty of fluids. Rest. If you develop fevers over 100, shortness of breath, lasts more than 10-12 days, or otherwise worsens, see your doctor or see us again. It is not unusual though to have the cough worsen a little as the course progresses. TY CLERK OF COURT documented in this encounter Plan of Treatment Upcoming Encounters Date Type Department Care Team (Late st Contact Info) Description 08/27/2025 11:30 AM DEPUTY CLERK OF COURT Office Visit [facility] Internal Medicine - [place] [address] [place] [address] [place] [address] [email or web address] [address] [place] [phone] documented as of this encounter Procedures Procedure Name Priority Date/Time Associated Diagnosis Comments POC COVID-19 ANTIGEN Routine 09/21/2024 5:48 PM DEPUT[address] CLERK OF COURT Acute cough POC INFLUENZA A AND B ANTIGEN Routine 09/21/2024 5:48 [address] CL[address] OF COURT Acute cough documented in this encounter Results * POC COVID-19 ANTIGEN (09/21/2024 5:48 PM DEPUTY CLERK OF COURT) Pathologist [facility] COVID-19 ANTIGEN POC Presumptively Negative Presumptively Negative [facility] INTERNAL KIT QC POC Pass Pass [facility] KIT LOT NUMBER POC [id number] [facility] KIT EXP DATE POC 08/24/25 [facility] READ METHOD POC Visual [facility] Upper Respiratory 09/21/2024 5:[address] OF [address] Kay Melo TRANSIT MANAGER POINT OF CARE TESTING F inal Result [facility] CLIA# [id number] [place] [address] * POC INFLUENZA A AND B ANTIGEN (09/21/2024 5:48 PM DEPUTY CLERK OF COURT) Pathologist [facility] INFLUENZA A AG POC Negative/Not Detected Negative/No t Detected [facility] INFLUENZA B AG POC Negative/Not Detected Negative/No t Detected [facility] INTERNAL KIT QC POC Pass Pass [facility] KIT LOT NUMBER POC [id number] [facility] KIT EXP DATE POC 03/01/26 [facility] READ METHOD POC Visual [facility] Upper Respiratory ANTERIOR NARES SWAB / Unknown 09/21/2024 5:48 [address] OF COURT us Kay Melo TRANSIT MANAGER POINT OF CARE TESTING F inal Result [facility] CLIA# [id number] [place] [address] documented in this encounter Visit Diagnoses Diagnosis Acute cough- Primary documented in this encounter Care Teams Assistant Floor Covering Printer Relationship Specialty [place] [address] [place] [address] [phone] PCP - General Family Practice 12/01/22 documented as of this encounter
--- OUTSIDE RECORDS SUMMARY | 2024-09-21 20:53 | XMS_ITS | Clinical Summary ---
Author Organization [address] Address [address] [place] [phone] Care Team Providers Care Insurance Sales Representative Name Role Phone Elias Andrews MD Unavailable [phone] Jonah Otto MD Unavailable [phone] Jerel Camejo MD Primary Care Provider [phone] Allergies Active Allergy Reactions Criticality Noted Date [...] or as directed by MD. 15 patch 09/05/19 25 025 Active acetaminophen (TYLENOL) 500 mg tablet Take 2 tablets (1,000 mg total) by mouth every 6 (six) hours as needed for pain 30 tablet 09/05/19 25 Active gabapentin (NEURONTIN) 100 mg capsuleIndica tions:Neuropa thic Pain Take 1 capsule (100 mg total) by mouth 3 (three) times a day for 14 days 42 capsule 09/05/19 25 Active hydroCHLOROth iazide (HYDRODIURIL) 25 mg tabletIndicat ions:Cellulit is of left lower extremity,Lef t leg swelling Take 1 tablet (25 mg total) by mouth daily 5 tablet 09/10/19 25 026 Active Additional Information Patient not taking.Reported on 09/11/2024 potassium chloride ER (KLOR-CON) 20 mEq CR tablet Take 1 tablet (20 mEq total) by mouth daily for 7 days 7 tablet 09/11/19 25 Active furosemide (LASIX) 20 mg tablet Take 2 tablets (40 mg total) by mouth daily for 5 days 10 tablet 09/20/19 25 025 Active furosemide (LASIX) 20 mg tablet Take 1 [...] capsule 09/06/19 25 025 Discontinued(Th erapy completed) cephalexin (KEFLEX) 500 mg capsuleIndica tions:Celluli tis of left lower extremity Take 2 capsules (1,000 mg total) by mouth 2 (two) times a day for 10 days 40 capsule 09/10/19 25 025 Additional Information Patient not taking.Reported on 09/11/2024 furosemide (LASIX) 40 mg tablet Take 1 tablet (40 mg total) by mouth daily for 5 days 5 tablet 09/11/19 25 025 Discontinued(Th erapy completed) furosemide (LASIX) 20 mg tablet Take 2 tablets (40 mg total) by mouth daily for 5 days 10 tablet 09/19/19 25 025 Discontinued Active Problems Patient Care Coordination No te [...] Insurance Qualify for In Clinic PT? 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 Assessment & Plan (08/09/2019 7:07 PM CEMENT CUTTER): Patient presents with complaints of ongoing abdominal [...] 07/29/2019 Assessment & Plan (08/10/2019 10:48 AM CEMENT CUTTER): Ongoing nausea post cholecystectomy w/o vomiting. Tolerating PO, no emesis overnight - prn zofran - ADAT Assessment & Plan (08/09/2019 7:17 PM CEMENT CUTTER): Ongoing nausea post cholecystectomy w/o vomiting. - prn zofran - ADAT Calculus of gallbladder 07/29/2019 Dizziness 07/29/2019 Assessment & Plan (08/10/2019 10:59 AM CEMENT CUTTER): Patient describes dizziness related to uncontrolled abdominal pain. He endorses pain starts in RQ and moves to head . He then becomes diaphoretic, nauseous. Improved this AM. Likely vasovagal, hemodynamically stable. - discussed proper hydration and symptom management Assessment & Plan (08/09/2019 7:16 PM CEMENT CUTTER): Patient describes dizziness related to uncontrolled abdominal pain. He endorses pain starts in RQ and moves to head . He then becomes diaphoretic, nauseous. - likely vasovagal, s/p 1 L LR in ED. CTM Intractable right upper quadrant abdominal pain 07/29/2019 Overview (08/01/2019): Added automatically from request for surgery [id number] Adjustment disorder with depressed mood in mahesh ahujaon 11/05/2018 Sepsis 10/25/2018 Abdominal pain, generalized 10/25/2018 Dizziness 10/20/2018 Syncope and collapse 10/20/2018 Gallbladder adhesions Resolved Problems Problem Noted Date Diagnosed Date Resolved Date COVID-19 08/13/2024 08/14/2024 Encounters Date Type Department Care Team Description 09/20/2024 4:07 PM [facility]TER - 09/20/2024 4:[address] [facility] Emergency Department [address] [place] [id number] Medication refill (Primary Dx) Discharge Disposition: Discharge to home or self care 09/20/2024 1:26 AM [facility] - 09/20/2024 2:[address] [facility] Emergency Department [address] [place] [phone] Cesar Chiang MD Viral pharyngitis (Primary Dx) Discharge Disposition: Discharge to home or self care 09/19/2024 1:39 AM [facility] - 09/19/2024 2:[address] [facility] Emergency Department [address] [place] [address] Jasbir Yañez MD Pedal edema (Primary Dx) Discharge Disposition: Discharge to home or self care 09/18/2024 6:00 PM [facility] - 09/18/2024 7:[address] [facility] Emergency Department [address] [place] [address] Left before treatment completed (Primary Dx); Leg swelling Discharge Disposition: Left Against Medical Advice 09/17/2024 11:38 AM [facility] - 09/17/2024 1:19 PM [facility] Emergency Department [address] [place] [address] Chronic venous insufficiency (Primary Dx); Bilateral lower extremity edema Discharge Disposition: Discharge to home or self care 09/14/2024 12:10 AM [facility] - 09/14/2024 1:49 AM [facility] Emergency Department [address] [place] [address] Brice Sepulveda MD Bilateral lower extremity edema (Primary Dx) Discharge Disposition: Discharge to home or self care 09/14/2024 Telephone [facility] at [address] [phone] Lexi Garcia NP Med Refill 09/13/2024 9:20 PM [facility] - 09/13/2024 9:46 PM [facility] Emergency [facility] Emergency Department [address] [place] [address] Michael Schrader MD Weakness (Primary Dx) Discharge Disposition: Discharge to home or self care 09/13/2024 2:46 AM [facility] - 09/13/2024 5:31 AM [facility] Emergency [facility] Emergency Department [address] [place] [phone] Katharine Polanco MD Chronic venous insufficiency (Primary Dx); Lower extremity edema Discharge Disposition: Discharge to home or self care 09/12/2024 9:22 PM [facility] - 09/12/2024 10:59 PM [facility] Emergency [facility] Emergency Department [address] [place] [phone] Leg swelling (Primary Dx); Venous insufficiency; Venous stasis dermatitis Discharge Disposition: Discharge to home or self care 09/11/2024 10:35 PM [facility] - 09/12/2024 3:44 AM [facility] Emergency [facility] Emergency Department [address] [place] [phone] Salena Crawley MD Lower extremity edema (Primary Dx); Cellulitis of left lower extremity Discharge Disposition: Discharge to home or self care 09/11/2024 7:00 PM [facility]TER Office Visit [facility] at [address] [phone] Truman Gabriel, DO Symptom of leg swelling (Primary Dx) 09/10/2024 5:00 PM [facility]TER Office Visit [facility] at [address] [phone] Jess Hobson NP Cellulitis of left lower extremity (Primary Dx); Left leg swelling 09/07/2024 10:55 AM [facility] - 09/07/2024 10:56 AM [facility] Emergency Department [address] [place] [phone] Venous stasis dermatitis of both lower extremities (Primary Dx) Discharge Disposition: Discharge to home or self care 09/05/2024 8:08 PM [facility] - 09/05/2024 10:28 PM [facility] Emergency Department [address] [place] [phone] Other chronic pain (Primary Dx); Bilateral lower extremity edema Discharge Disposition: Discharge to home or self care 09/05/2024 2:02 AM [facility] - 09/05/2024 3:14 AM [facility] Emergency Department [address] [address] [place] [address] Marek Nelson MD PhD Chronic pain of left lower extremity (Primary Dx) Discharge Disposition: Discharge to home or self care 09/03/2024 7:07 PM [facility] - 09/03/2024 11:06 PM [facility] Emergency Department [address] [place] [address] Cellulitis of left lower extremity (Primary Dx) Discharge Disposition: Discharge to home or self care 09/02/2024 8:24 AM [facility] - 09/02/2024 11:59 PM [facility] [address] [place] [address] Discharge Disposition: Discharge to home or self care 09/02/2024 3:25 AM [facility] - 09/02/2024 3:41 AM [facility] Emergency Department [address] [place] [address] Rachele Guerra MD Sprain of right ankle, unspecified ligament, initial encounter (Primary Dx) Discharge Disposition: Discharge to home or self care 09/01/2024 8:06 AM [facility] - 09/01/2024 9:39 AM [facility] Emergency Department [address] [place] [address] Jair Armendariz MD Sprain of right ankle, unspecified ligament, initial encounter (Primary Dx) Discharge Disposition: Discharge to home or self care 08/23/2024 9:27 PM [facility] - 08/23/2024 10:03 PM [facility] Emergency [facility] Emergency Department [address] [place] [phone] Leg swelling (Primary Dx); Cellulitis of left lower extremity Discharge Disposition: Discharge to home or self care 08/23/2024 1:41 AM [facility] - 08/23/2024 9:16 AM [facility] Emergency [facility] Emergency Department [address] [place] [phone] Salena Crawley MD Li, Alex, MD Schneider, John Elliott, MD Leg swelling (Primary Dx); Cellulitis of left lower extremity; Failure of outpatient treatment Discharge Disposition: Discharge to home or self care 08/20/2024 11:11 PM [facility] - 08/21/2024 1:30 AM [facility] Emergency [facility] Emergency Department [address] [place] [address] Dependent edema (Primary Dx) Discharge Disposition: Discharge to home or self care 08/20/2024 9:06 AM [facility] - 08/20/2024 11:08 AM [facility] Emergency Department [address] [place] [address] Fei Murray MD Upper respiratory tract infection, unspecified type (Primary Dx); Peripheral edema Discharge Disposition: Discharge to home or self care 08/20/2024 2:24 AM [facility] - 08/20/2024 4:35 AM [facility] Emergency Department [address] [place] [address] Discharge Disposition: Left without being seen 08/18/2024 5:58 AM [facility] - 08/18/2024 7:26 AM [facility] Emergency [facility] Emergency Department [address] [place] [phone] Lorenzo Peña MD Peripheral edema (Primary Dx) Discharge Disposition: Discharge to home or self care 08/17/2024 3:00 PM C[facility] C[facility]TER Diagnostic [facility] Orthopaedic Surgery [address] [facility] [facility] 6th [place] [address] [place] [address] Luciano Nelson MD Encounter for examination of normal volunteer in research study 08/15/2024 12:23 AM [facility] - 08/15/2024 1:52 AM [facility] Emergency [facility] Emergency Department [address] [place] [address] [place] (Primary Dx); Swelling Discharge Disposition: Discharge to home or self care 08/12/2024 8:23 PM C[facility] C[facility]TER - 08/14/2024 1:56 PM [facility]TER Hospital Encounter [facility] [address] [place] [phone] Batsheva Portillo MD Li, MD Lucille Garcia Alex, MD COVID-19 (Primary Dx); Recurrent syncope; Chest pain, unspecified type; Anemia, unspecified type; Elevated AST (SGOT); Elevated ALT measurement; Nonintractable headache, unspecified chronicity pattern, unspecified headache type Discharge Disposition: Discharge to home or self care 08/11/2024 3:49 AM [facility] - 08/11/2024 4:35 AM [facility] Emergency [facility] Emergency Department [address] [place] [phone] Abdiel Hawkins MD Coronavirus infection (Primary Dx); Lightheadedness Discharge Disposition: Discharge to home or self care 08/08/2024 9:58 PM [facility]TER - 08/08/2024 11:12 PM [facility] Emergency [facility] Emergency Department [address] [place] [phone] Karlo Gatica MD COVSARA (Primary Dx); Dehydration; Syncope, unspecified syncope type Discharge Disposition: Discharge to home or self care 08/07/2024 [facility] Eligibility Review [facility] Community Health Worker [address] [facility] [address] [place] [address] Darlene Zurita MT 08/06/2024 9:50 AM [facility] - 08/06/2024 12:23 PM [facility] Emergency [facility] Emergency Department [address] [place] [address] Jassi Daniels MD Coronavirus infection (Primary Dx) Discharge Disposition: Discharge to home or self care 08/02/2024 12:46 PM [facility] - 08/02/2024 1:16 PM [facility] Emergency [facility] Emergency Department [address] [place] [address] Gee Moran MD Chronic right shoulder pain (Primary Dx) Discharge Disposition: Discharge to home or self care 08/01/2024 2:00 AM [facility] - 08/01/2024 3:17 AM [facility] Emergency [facility] Emergency Department [address] [place] [address] Chronic right shoulder pain (Primary Dx); Encounter for medication refill Discharge Disposition: Discharge to home or self care 07/29/2024 9:38 PM [facility] - 07/29/2024 11:38 PM [facility] Emergency [facility] Emergency Department [address] [place] [address] Cindy Hendricks MD Injury of right rotator cuff, subsequent encounter (Primary Dx) Discharge Disposition: Discharge to home or self care 07/24/2024 1:00 PM [facility] Office [facility] [address] [place] [address] Health 4th Floor [address] [place] [address] Right anterior shoulder pain (Primary Dx) 07/24/2024 Documentation [facility] [address] [place] [address] Outpatient Health [address] [place] [address] Cherie Ramirez, [facility] Social Work Services 07/19/2024 Documentation [facility] [address] [place] [address] Health [address] [place] [address] Cherie Ramirez, [employer] Social Work Services 06/26/2024 Orders Only [facility] Orthopaedic Surgery [address] [place] [address] 6th [place] [address] [place] [address] Michael Corona MD Encounter for examination of [...] drink = 0.6 oz pur e alcohol) [facility] Utilities Answer Date Recorded In the [...] How often do you attend zoroastrianism or cheondoism serv ices? Patient declined 08/14/2024 Do you [...] or rent on time? Patient declined 08/14/19 Number of Times Moved in the Last Year Not on fi le 08/14/2024 At any time in the past 12 m [facility], were you homeless or living in [...] on file Legal Sex Male 9:25 PM CEMENT CUTTER Gender Identity Not on file Sexual Orientation Straight 11/18/2022 7: 07 PM CDT Obstetrics History Last Filed Vital Signs Vital Sign Reading Time Taken Comments Blood Pressure 109/61 09/20/2024 3:48 PM CEMENT CUTTER Pulse 86 09/20/2024 3:48 PM C[facility] C[facility]TER Temperature 37 C (98.6 F) 09/20/2024 3:48 PM CEMENT C[facility]TER Respiratory Rate 18 09/20/2024 3:48 PM CEMENT C[facility]TER Oxygen Saturation 99% 09/20/2024 3:48 PM CEMENT C[facility]TER Inhaled Oxygen Concentration - - Weight 74.8 kg (165 lb) 09/20/2024 3:48 PM CEMENT C[facility]TER Height 172.7 cm (5' 8 ) 09/20/2024 1:22 AM CEMENT C[facility]TER Body Mass Index 25.09 09/20/2024 1:22 AM C[facility] C[facility]TER Plan of Treatment Health Maintenance Due Date [...] AND COVID-19 PCR STAT 09/20/2024 1:25 AM C[facility] C[facility]TER PRO B-TYPE NATRIURETIC PEPTIDE Add-On 09/18/2024 1:35 PM CEMENT C[facility]TER EGFR STAT 09/18/2024 1:35 PM C[facility] C[facility]TER DIFFERENTIAL AUTO STAT 09/18/2024 1:3 5 PM C[facility]TER COMPREHENSIVE METABOLIC PANEL STAT 09/18/2024 1:35 PM C[facility] C[facility]TER CBC WITH AUTO DIFFERENTIAL STAT 09/18/2024 1:35 PM C[facility] C[facility]TER EGFR STAT 09/11/2024 9:10 PM C[facility] C[facility]TER DIFFERENTIAL AUTO STAT 09/11/2024 9:1 0 PM C[facility] C[facility]TER PRO B-TYPE NATRIURETIC PEPTIDE STAT 09/11/2024 9:10 PM C[facility] C[facility]TER COMPREHENSIVE METABOLIC PANEL STAT 09/11/2024 9:10 PM C[facility] C[facility]TER CBC WITH AUTO DIFFERENTIAL STAT 09/11/2024 9:10 PM C[facility] C[facility]TER EGFR STAT 09/07/2024 2:59 AM C[facility] C[facility]TER DIFFERENTIAL AUTO STAT 09/07/2024 2:5 9 AM C[facility] C[facility]TER BASIC METABOLIC PANEL STAT 09/07/2024 2:59 AM C[facility] C[facility]TER CBC WITH AUTO DIFFERENTIAL STAT 09/07/2024 2:59 AM C[facility] C[facility]TER US VEIN DUPLEX LOWER EXTREMITY BILATERAL COMPLETE ED 09/03/2024 7:37 PM C[facility] C[facility]TER MRI SHOULDER RIGHT WO CONTRAST Schedule Routine, Read Routine (OP Routine) 09/02/2024 9:06 AM CEMENT C[facility]TER Right anterior shoulder pain XR ANKLE RIGHT 2 VIEWS ED 09/01/2024 9:33 PM C[facility] C[facility]TER XR TIBIA FIBULA RIGHT2 VIEWS ED 09/01/2024 8:37 AM CEMENT C[facility]TER XR ANKLE RIGHT 3 OR MORE VIEWS ED 08/31/2024 10:35 PM C[facility] C[facility]TER XR FOOT RIGHT 3 OR MORE VIEWS ED 08/31/2024 10:34 PM C[facility] C[facility]TER EGFR STAT 08/23/2024 2:33 AM C[facility] C[facility]TER DIFFERENTIAL AUTO STAT 08/23/2024 2:3 3 AM C[facility] C[facility]TER PRO B-TYPE NATRIURETIC PEPTIDE STAT 08/23/2024 2:33 AM C[facility] C[facility]TER COMPREHENSIVE METABOLIC PANEL STAT 08/23/2024 2:33 AM C[facility] C[facility]TER CBC WITH AUTO DIFFERENTIAL STAT 08/23/2024 2:33 AM C[facility] C[facility]TER SEPSIS LACTATE WITH REFLEX Routine 08/23/2024 2:33 AM C[facility] C[facility]TER BLOOD CULTURE Routine 08/23/2024 2:33 AM C[facility]TER BLOOD CULTURE Routine 08/23/2024 2:33 AM CEMENT C[facility]TER ECG 12-LEAD STAT 08/23/2024 2:32 AM CEMENT C[facility]TER EGFR STAT 08/21/2024 12:35 AM C[facility] C[facility]TER DIFFERENTIAL AUTO STAT 08/21/2024 12: 35 AM CEMENT CUTTER CRP (ACUTE PHASE) STAT 08/21/2024 12: 35 AM CEMENT C[facility]TER ERYTHROCYTE SEDIMENTATION RATE STAT 08/21/2024 12:35 AM C[facility] C[facility]TER BASIC METABOLIC PANEL STAT 08/21/2024 12:35 AM C[facility] C[facility]TER CBC WITH AUTO DIFFERENTIAL STAT 08/21/2024 12:35 AM C[facility] C[facility]TER STREPTOCOCCUS GROUP A PCR STAT 08/20/2024 9:19 AM C[facility] C[facility]TER RESPIRATORY PATHOGEN PANEL Routine 08/20/2024 9:19 AM CEMENT C[facility]TER D-DIMER, QUANTITATIVE STAT 08/15/2024 1:08 AM CEMENT C[facility]TER PRO B-TYPE NATRIURETIC PEPTIDE STAT 08/14/2024 9:59 PM CEMENT C[facility]TER EGFR STAT 08/14/2024 9:59 PM C[facility] C[facility]TER DIFFERENTIAL AUTO STAT 08/14/2024 9:5 9 PM C[facility] C[facility]TER LIPASE STAT 08/14/2024 9:59 PM [facility]TER COMPREHENSIVE METABOLIC PANEL STAT 08/14/2024 9:59 PM CEMENT C[facility]TER CBC WITH AUTO DIFFERENTIAL STAT 08/14/2024 9:59 PM CEMENT CUTTER TRANSTHORACIC ECHO (TTE) COMPLETE W DOPPLER/CF WO CONTRAST Routine 08/14/2024 11:39 AM CEMENT C[facility]TER HEPATIC FUNCTION PANEL Routine 08/13/2024 5:30 AM CEMENT CUTTER EGFR Routine 08/13/2024 5:30 AM CEMENT CUTTER CBC WITHOUT DIFFERENTIAL Routine 08/13/2024 5:30 AM C[facility] C[facility]TER PHOSPHORUS Routine 08/13/2024 5:30 AM C[facility] C[facility]TER MAGNESIUM Routine 08/13/2024 5:30 AM CEMENT CUTTER BASIC METABOLIC PANEL Routine 08/13/2024 5:30 AM CEMENT C[facility]TER FERRITIN Routine 08/13/2024 5:30 AM CEMENT C[facility]TER DRUGS OF ABUSE SCREEN, URINE WITH REFLEX CONFIRMATION Routine 08/13/2024 12:15 AM CEMENT C[facility]TER URINALYSIS AND REFLEX TO MICROSCOPIC AND CULTURE STAT 08/13/2024 12:[address] CHEST PE W CONTRAST ED 08/12/2024 11:48 PM CEMENT CUTTER US VEIN DUPLEX LOWER EXTREMITY BILATERAL COMPLETE ED 08/12/2024 11:46 PM CEMENT C[facility]TER US RUQ ED 08/12/2024 11:38 PM CEMENT C[facility]TER ADD ON LAB TEST Add-On 08/12/2024 10:[address] HEAD AND CERVICAL SPINE WO CONTRAST ED 08/12/2024 10:20 PM CEMENT C[facility]TER D-DIMER, QUANTITATIVE STAT 08/12/2024 10:05 PM CEMENT C[facility]TER PROTIME-INR STAT 08/12/2024 10:05 PM CEMENT CUTTER ADD ON LAB TEST Add-On 08/12/2024 9:53 PM CEMENT CUTTER ADD ON LAB TEST Add-On 08/12/2024 9:53 PM CEMENT C[facility]TER ADD ON LAB TEST Add-On 08/12/2024 9:53 PM CEMENT C[facility]TER ADD ON LAB TEST Add-On 08/12/2024 9:53 PM CEMENT CUTTER ADD ON LAB TEST Add-On 08/12/2024 9:53 PM CEMENT CUTTER ADD ON LAB TEST Add-On 08/12/2024 9:53 PM CEMENT CUTTER ADD ON LAB TEST Add-On 08/12/2024 9:53 PM CEMENT C[facility]TER ETHANOL STAT 08/12/2024 9:52 PM CEMENT C[facility]TER TROPONIN T HIGH-SENSITIVITY 2-HOUR Timed 08/12/2024 9:52 PM CEMENT C[facility]TER ACETAMINOPHEN LEVEL STAT 08/12/2024 9 :13 PM CEMENT C[facility]TER HEPATITIS PANEL, ACUTE STAT 08/12/2024 9:13 PM CEMENT CUTTER PRO B-TYPE NATRIURETIC PEPTIDE STAT 08/12/2024 8:08 PM CEMENT C[facility]TER THYROID FUNCTION CASCADE STAT 08/12/2024 8:08 PM CEMENT C[facility]TER FOLATE STAT 08/12/2024 8:08 PM CEMENT C[facility]TER IRON PROFILE W/ IBC STAT 08/12/2024 8 :08 PM CEMENT C[facility]TER VITAMIN B12 STAT 08/12/2024 8:08 PM CEMENT C[facility]TER MAGNESIUM STAT 08/12/2024 8:08 PM CEMENT C[facility]TER PHOSPHORUS STAT 08/12/2024 8:08 PM CEMENT CUTTER EGFR STAT 08/12/2024 8:08 PM CEMENT CUTTER DIFFERENTIAL AUTO STAT 08/12/2024 8:0 8 PM CEMENT C[facility]TER TROPONIN T HIGH-SENSITIVITY SERIES (BASELINE, 2HR, 4HR, 6HR) STAT 08/12/2024 8:08 PM CEMENT C[facility]TER COMPREHENSIVE METABOLIC PANEL STAT 08/12/2024 8:08 PM CEMENT CUTTER CBC WITH AUTO DIFFERENTIAL STAT 08/12/2024 8:08 PM CEMENT C[facility]TER XR CHEST PA LATERAL 2 VIEWS ED 08/12/2024 7:27 PM CEMENT CUTTER ECG 12-LEAD STAT 08/12/2024 6:48 PM CEMENT CUTTER XR CHEST PA LATERAL 2 VIEWS ED 08/11/2024 2:02 AM CEMENT CUTTER ECG 12-LEAD STAT 08/11/2024 1:43 AM CEMENT CUTTER XR CHEST PA LATERAL 2 VIEWS ED 08/08/2024 10:[address] HEAD WO CONTRAST ED 08/08/2024 1 0:34 PM CEMENT CUTTER ECG 12-LEAD STAT 08/08/2024 8:56 PM CEMENT C[facility]TER RESPIRATORY PATHOGEN PANEL Routine 08/06/2024 9:59 AM CEMENT CUTTER from Last 3 Months Results * Influenza A/B, RSV, and COVID-19 PCR Nasopharyngeal (09/20/2024 1:25 AM CEMENT CUTTER) COVID-19 RNA Negative Negative Influenza A RNA Negative Negative [facility] ([facility]) Influenza B RNA Negative Negative [facility] ([facility]) RSV RNA Negative Negative [facility] ([facility]) Comment: Interpretive data: Testing performed by [facility]. This test is performed using the [employer] Xpert Xpress CoV-2/Flu/RSV plus assay. This is a multiplex, real- time reverse transcriptase PCR assay intended for the qualitative detection of nucleic acid from SARS-CoV-2, influenza A, influenza B, and respiratory syncytial virus. This assay has been cleared by the [place] Food and Drug administration. The performance characteristics have been verified by the [facility]. Results must be considered in the clinical context, and a negative result does not rule out infection. Interpretive Data last revised 2023 Nasopharyngeal 09/20/2024 1: 25 AM CEMENT CUTTER 09/20/2024 1:29 AM CEMENT CUTTER Narrative JAMESLEN CHAVIS ([place]) - 09/20/2024 2:07 AM CEMENT CUTTER Is the Patient experiencing symptoms consistent with COVID?->Yes us Cesar Chiang MD LAB MICROBIOLOGY - GENERAL ORD ERABLES Final Result JADA EspinozaWAPELLO) [facility] Department [place] [address] * eGFR (09/18/2024 1:35 PM CEMENT CUTTER) eGFR >90 >=60 mL/min/1. 73 m2 Comment: [...] interpretive data was last reviewed 2021. Blood 09/18/2024 1:35 PM CEMENT CUTTER 09/18/2024 1:38 PM CEMENT CUTTER us Megan Dill MD LAB BLOOD ORDERABLE S Final Result [facility] ([facility]) [facility] Department [place] [address] * Differential, auto (09/18/2024 1:35 PM CEMENT CUTTER) Neutrophil abs 4.8 1.5 - 6.5 K/cumm Imm gran abs 0.0 0.0 - 0.1 K/cumm [facility] ([facility]) Lymphocyte abs 1.3 0.8 - 3.3 K/cumm [facility] ([facility]) Monocyte abs 0.3 0.2 - 0.8 K/cumm [facility] ([facility] Eosinophil abs 0.1 0.0 - 0.5 K/cumm [facility] ([facility]) Basophil abs 0.0 0.0 - 0.1 K/cumm [facility] ([facility]) Neutrophil pct 72.6 % [facility] ([place]) Comment: Interpretive Data Percent cell count reference ranges are not reported, since discordance with absolute values may lead to misinterpretation of CBC data. Current Interpretive Data was last revised on 2017. Imm gran pct 0.2 % [facility] ([facility]) Comment: Interpretive Data Percent cell count reference ranges are not reported, since discordance with absolute values may lead to misinterpretation of CBC data. Current Interpretive Data was last revised on 2017. Lymphocyte pct 20.2 % [facility] ([facility]) Comment: Interpretive Data Percent cell count reference ranges are not reported, since discordance with absolute values may lead to misinterpretation of CBC data. Current Interpretive Data was last revised on 2017. Monocyte pct 4.7 % [facility] ([facility]) Comment: Interpretive Data Percent cell count reference ranges are not reported, since discordance with absolute values may lead to misinterpretation of CBC data. Current Interpretive Data was last revised on 2017. Eosinophil pct 1.7 % [facility] ([facility]) Comment: Interpretive Data Percent cell count reference ranges are not reported, since discordance with absolute values may lead to misinterpretation of CBC data. Current Interpretive Data was last revised on 2017. Basophil pct 0.6 % [facility] ([facility]) Comment: Interpretive Data Percent cell count reference ranges are not reported, since discordance with absolute values may lead to misinterpretation of CBC data. Current Interpretive Data was last revised on 2017. Blood 09/18/2024 1:35 PM CEMENT CUTTER 09/18/2024 1:38 PM CEMENT CUTTER us Megan Dill MD LAB BLOOD ORDERABLE S Final Result [facility] [place]) 1 [facility] Department [place] [address] * Pro B-type natriuretic peptide (09/18/2024 1:35 PM CEMENT CUTTER) NT-proBNP <36 <=300 pg/mL Comment: Interpretive Comments: [...] Interpretive Data Last Revised Date: 2018. Blood 09/18/2024 1:35 PM CEMENT CUTTER 09/18/2024 6:28 PM CEMENT CUTTER us Jossue Cox NP LAB BLOOD ORDERABLES Final Result [facility] ([place]) 1 [facility] [place] [address] * CBC with auto differential (09/18/2024 1:35 PM CEMENT CUTTER) WBC 6.6 3.8 - 9.9 K/cumm Hgb 13.3 13.0 - 17.5 g/dL [facility] ([facility]) Hct 40.3 38.9 - 50.3 % [facility] ([facility]) Plt 210 150 - 400 K/cumm [facility] ([facility]) MPV 10.1 9.1 - 12.3 fL [facility] ([place]) RBC 4.49 4.30 - 5.80 M/cumm [facility] ([place]) MCV 89.8 81.3 - 96.4 fL [facility] ([facility]) MCH 29.6 27.1 - 33.3 pg [facility] ([place]) MCHC 33.0 32.3 - 35.7 g/dL [facility] ([place]) RDW CV 12.2 11.1 - 14.9 % [facility] ([place]) RDW SD 40.1 35.7 - 48.1 fL [facility] ([place]) NRBC abs 0.00 0.00 - 0.01 K/cumm [facility] ([facility]) Blood 09/18/2024 1:35 PM CEMENT CUTTER 09/18/2024 1:38 PM CEMENT CUTTER us Megan Dill MD LAB BLOOD ORDERABLE S Final Result [facility] ([place]) 1 [facility] [place] [address] * Comprehensive metabolic panel (09/18/2024 1:35 PM CEMENT CUTTER) Sodium 140 135 - 145 mmol/L Potassium, pl 4.3 3.3 - 4.9 mmol/L [facility] ([place]) Chloride 100 97 - 110 mmol/L [facility] ([place]) CO2 29 22 - 32 mmol/L [facility] ([facility]) Anion gap 10 2 - 15 mmol/L [facility] ([place]) BUN 21 6 - 25 mg/dL [facility] ([facility]) Creatinine 1.02 0.80 - 1.30 mg/dL [facility] ([place]) Glucose 72 70 - 199 mg/dL [facility] ([place]) Comment: Interpretive Data Fasting glucose >/= 126 [...] interpretive data was last revised 2022. Calcium 9.5 8.5 - 10.3 mg/dL [facility] ([place]) Bilirubin, total 0.6 0.1 - 1.2 mg/dL [facility] ([place]) Protein, pl 7.6 6.5 - 8.5 g/dL [facility] ([place]) Albumin 4.4 3.5 - 5.0 g/dL [facility] ([place]) Alk phos 87 40 - 130 Units/L [facility] ([facility]) ALT 46 7 - 55 Units/L [facility] ([facility]) AST 39 10 - 50 Units/L [facility] ([facility]) Comment:Slightly Hemolyzed S pecimen Blood 09/18/2024 1:35 PM CEMENT CUTTER 09/18/2024 1:38 PM CEMENT CUTTER us Megan Dill MD LAB BLOOD ORDERABLE S Final Result [facility] ([facility]) 1 [facility] Department [place] [address] * eGFR (09/11/2024 9:10 PM CEMENT CUTTER) [facility] eGFR >90 >=60 mL/min/1. 73 m2 [...] last reviewed 2021. Blood 09/11/2024 9:10 PM CEMENT CUTTER 09/11/2024 9:30 PM CEMENT CUTTER us Salena Crawley MD LAB BLOOD ORDERABLES Fin al Result [facility] [address] Department [place] [address] * Differential, auto (09/11/2024 9:10 PM CEMENT CUTTER) [facility] Neutrophil abs 3.8 1.5 - 6.5 K/cumm Imm gran abs 0.0 0.0 - 0.1 K/cumm [facility] Lymphocyte abs 1.1 0.8 - 3.3 K/cumm [facility] Monocyte abs 0.5 0.2 - 0.8 K/cumm [facility] Eosinophil abs 0.2 0.0 - 0.5 K/cumm [facility] Basophil abs 0.0 0.0 - 0.1 K/cumm [facility] Neutrophil pct 67.2 % [facility] Comment: Interpretive Data Percent cell count reference ranges are not reported, since discordance with absolute values may lead to misinterpretation of CBC data. Current Interpretive Data was last revised on 2017. Imm gran pct 0.4 % [facility] Comment: Interpretive Data Percent cell count reference ranges are not reported, since discordance with absolute values may lead to misinterpretation of CBC data. Current Interpretive Data was last revised on 2017. Lymphocyte pct 20.1 % [facility] Comment: Interpretive Data Percent cell count reference ranges are not reported, since discordance with absolute values may lead to misinterpretation of CBC data. Current Interpretive Data was last revised on 2017. Monocyte pct 8.6 % [facility] Comment: Interpretive Data Percent cell count reference ranges are not reported, since discordance with absolute values may lead to misinterpretation of CBC data. Current Interpretive Data was last revised on 2017. Eosinophil pct 3.2 % [facility] Comment: Interpretive Data Percent cell count reference ranges are not reported, since discordance with absolute values may lead to misinterpretation of CBC data. Current Interpretive Data was last revised on 2017. Basophil pct 0.5 % [facility] Comment: Interpretive Data Percent cell count reference ranges are not reported, since discordance with absolute values may lead to misinterpretation of CBC data. Current Interpretive Data was last revised on 2017. Blood 09/11/2024 9:10 PM CEMENT CUTTER 09/11/2024 9:30 PM CEMENT CUTTER Salena Crawley MD LAB BLOOD ORDERABLES Fin al Result [facility] [address] Department [place] [address] * Pro B-type natriuretic peptide (09/11/2024 9:10 PM CEMENT CUTTER) NT-proBNP <36 <=300 pg/mL Comment: Interpretive Comments: [...] Revised Date: 2018. Blood 09/11/2024 9:10 PM CEMENT CUTTER 09/11/2024 9:30 PM CEMENT CUTTER us Salena Crawley MD LAB BLOOD ORDERABLES Fin al Result [facility] [address] Department [place] [address] * CBC with auto differential (09/11/2024 9:10 PM CEMENT CUTTER) WBC 5.7 3.8 - 9.9 K/cumm Hgb 13.1 13.0 - 17.5 g/dL [facility] Hct 40.0 38.9 - 50.3 % [facility] Plt 184 150 - 400 K/cumm [facility] MPV 10.6 9.1 - 12.3 fL [facility] RBC 4.43 4.30 - 5.80 M/cumm [facility] MCV 90.3 81.3 - 96.4 fL [facility] MCH 29.6 27.1 - 33.3 pg [facility] MCHC 32.8 32.3 - 35.7 g/dL [facility] RDW CV 12.7 11.1 - 14.9 % [facility] RDW SD 41.7 35.7 - 48.1 fL [facility] NRBC abs 0.00 0.00 - 0.01 K/cumm [facility] Blood 09/11/2024 9:10 PM CEMENT CUTTER 09/11/2024 9:30 PM CEMENT CUTTER us Salena Crawley MD LAB BLOOD ORDERABLES Fin al Result [facility] [address] Department [place] [address] * (ABNORMAL) Comprehensive metabolic panel (09/11/2024 9:10 PM CEMENT CUTTER) Sodium 142 135 - 145 mmol/L Potassium, pl 4.3 3.3 - 4.9 mmol/L [facility] Chloride 101 97 - 110 mmol/L [facility] CO2 28 22 - 32 mmol/L [facility] Anion gap 13 2 - 15 mmol/L [facility] BUN 28(H) 6 - 25 mg/dL [facility] Creatinine 0.89 0.80 - 1.30 mg/dL [facility] Glucose 113 70 - 199 mg/dL [facility] Comment: Interpretive Data Fasting glucose [...] 2022. Calcium 9.2 8.5 - 10.3 mg/dL [facility] Bilirubin, total 0.8 0.1 - 1.2 mg/dL [facility] Protein, pl 6.7 6.5 - 8.5 g/dL [facility] Albumin 4.0 3.5 - 5.0 g/dL [facility] Alk phos 79 40 - 130 Units/L [facility] ALT 62(H) 7 - 55 Units/L [facility] AST 40 10 - 50 Units/L [facility] Comment:Slightly Hemolyzed S pecimen Blood 09/11/2024 9:10 PM CEMENT CUTTER 09/11/2024 9:30 PM CEMENT CUTTER us Salena Crawley MD LAB BLOOD ORDERABLES Fin al Result Performing Organization Address City/State/[facility] Co de Phone Number [facility] [address] Department [place] [address] * eGFR (09/07/2024 2:59 AM CEMENT CUTTER) eGFR >90 >=60 mL/min/1. 73 m2 Comment: [...] last reviewed 2021. Blood 09/07/2024 2:59 AM CEMENT CUTTER 09/07/2024 3:02 AM CEMENT CUTTER us Jair Armendariz MD LAB BLOOD ORDERABLES Final Result [facility] 10 [facility] Department [place] [address] * Differential, auto (09/07/2024 2:59 AM CEMENT CUTTER) Neutrophil abs 3.0 1.5 - 6.5 K/cumm Imm gran abs 0.0 0.0 - 0.1 K/cumm [facility] Lymphocyte abs 2.1 0.8 - 3.3 K/cumm [facility] Monocyte abs 0.4 0.2 - 0.8 K/cumm [facility] Eosinophil abs 0.2 0.0 - 0.5 K/cumm [facility] Basophil abs 0.0 0.0 - 0.1 K/cumm [facility] Neutrophil pct 51.2 % [facility] Comment: Interpretive Data Percent cell count reference ranges are not reported, since discordance with absolute values may lead to misinterpretation of CBC data. Current Interpretive Data was last revised on 2017. Imm gran pct 0.3 % [facility] Comment: Interpretive Data Percent cell count reference ranges are not reported, since discordance with absolute values may lead to misinterpretation of CBC data. Current Interpretive Data was last revised on 2017. Lymphocyte pct 36.9 % [facility] Comment: Interpretive Data Percent cell count reference ranges are not reported, since discordance with absolute values may lead to misinterpretation of CBC data. Current Interpretive Data was last revised on 2017. Monocyte pct 6.9 % [facility] Comment: Interpretive Data Percent cell count reference ranges are not reported, since discordance with absolute values may lead to misinterpretation of CBC data. Current Interpretive Data was last revised on 2017. Eosinophil pct 4.0 % [facility] Comment: Interpretive Data Percent cell count reference ranges are not reported, since discordance with absolute values may lead to misinterpretation of CBC data. Current Interpretive Data was last revised on 2017. Basophil pct 0.7 % [facility] Comment: Interpretive Data Percent cell count reference ranges are not reported, since discordance with absolute values may lead to misinterpretation of CBC data. Current Interpretive Data was last revised on 2017. Blood 09/07/2024 2:59 AM CEMENT CUTTER 09/07/2024 3:02 AM CEMENT CUTTER Jair Armendariz MD LAB BLOOD ORDERABLES Final Result Performing Organization Address City/[facility]/ZIP Co de Phone Number [address] Department [place] [address] * (ABNORMAL) CBC with auto differential (09/07/2024 2:59 AM CEMENT CUTTER) Pathologist [facility] WBC 5.8 3.8 - 9.9 K/cumm Hgb 12.3(L) 13.0 - 17.5 g/dL [facility] Hct 37.2(L) 38.9 - 50.3 % [facility] Plt 163 150 - 400 K/cumm [facility] MPV 10.4 9.1 - 12.3 fL [facility] RBC 4.17(L) 4.30 - 5.80 M/cumm [facility] MCV 89.2 81.3 - 96.4 fL [facility] MCH 29.5 27.1 - 33.3 pg [facility] MCHC 33.1 32.3 - 35.7 g/dL [facility] RDW CV 12.6 11.1 - 14.9 % [facility] RDW SD 41.1 35.7 - 48.1 fL [facility] NRBC abs 0.00 0.00 - 0.01 K/cumm [facility] Blood 09/07/2024 2:59 AM CEMENT CUTTER 09/07/2024 3:02 AM CEMENT CUTTER Jari Armendariz MD LAB BLOOD ORDERABLES Final Result [address] Department [place] [address] * Basic metabolic panel (09/07/2024 2:59 AM CEMENT CUTTER) Sodium 143 135 - 145 mmol/L Potassium, pl 4.4 3.3 - 4.9 mmol/L [facility] Chloride 109 97 - 110 mmol/L [facility] CO2 25 22 - 32 mmol/L [facility] Anion gap 9 2 - 15 mmol/L [facility] BUN 24 6 - 25 mg/dL [facility] Creatinine 0.87 0.80 - 1.30 mg/dL [facility] Glucose 86 70 - 199 mg/dL [facility] Comment: Interpretive Data Fasting glucose >/= [...] Calcium 9.1 8.5 - 10.3 mg/dL [facility] Blood 09/07/2024 2:59 AM CEMENT CUTTER 09/07/2024 3:02 AM CEMENT CUTTER us Jair Armendariz MD LAB BLOOD ORDERABLES Final Result [facility] 10 [facility] Department [place] [address] * US Vein Duplex Lower Extremity Bilateral Complete (09/03/2024 7:37 PM CEMENT CUTTER) Anatomical Region Laterality Modality Vascular Bilateral Ultrasound 09/04/2024 2:26 PM CEMENT CUTTER Impressions 09/04/2024 2:26 PM CEMENT CUTTER 1. No evidence of DVT in the lower extremities bilaterally. 2. Evidence of pulsatile venous flow. This may suggest increased intravascular volume or right-sided valvular heart disease. Clinical correlation suggested. 3. No change when compared to previous studies. Electronically signed by: Lv Smart M.D. Narrative 09/04/2024 2:26 PM CEMENT CUTTER Lower Extremity Vein Duplex Bilateral DATE: 09/03/2024 [...] by: Lv Smart M.D. Ofelia Stanley MD IMG US PROCEDURES Final Re sult * MRI Shoulder Right WO Contrast (09/02/2024 9:06 AM CEMENT CUTTER) Anatomical Region Laterality Modality Upper Extremities Right Magnetic Reson ance 09/02/2024 11:0 8 AM CEMENT CUTTER Impressions 09/02/2024 12:42 PM CEMENT CUTTER 1. Minimal right rotator cuff tendinopathy without tear. 2. Mild right glenohumeral chondrosis with likely tear of the posterior superior glenoid labrum. 3. Trace right subacromial subdeltoid bursitis. 4. 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 Dictated by: Denys iJmenez M.D. The radiology attending physician has personally reviewed this study, and had reviewed and/or edited this written report and agrees with it. Electronically signed by: Gudelia Berger MD Narrative 09/02/2024 12:42 PM CEMENT CUTTER EXAMINATION: 1. MRI right shoulder without contrast [...] by: Gudelia Berger MD Qi Donald NP IM MRI PROCEDURES Final Re sult * XR Ankle Right 2 Views (09/01/2024 9:33 PM CEMENT CUTTER) Anatomical Region Laterality Modality Lower Extremities, Ankle Right Compute d Radiography 09/02/2024 8:13 AM CEMENT CUTTER Impressions 09/02/2024 8:13 AM CEMENT CUTTER There is mild swelling about the right ankle. There is a fracture of the base of 5th metacarpal, similar to prior. No additional fractures. The joints are normal. Electronically signed by: Brice Mantilla M.D. Narrative 09/02/2024 8:13 AM CEMENT CUTTER EXAMINATION: XR ANKLE RIGHT 2 VIEWS HISTORY: [...] Fibula Right 2 views (09/01/2024 8:37 AM CEMENT CUTTER) Anatomical Region Laterality Modality Lower Extremities, Lower Leg Right Com puted Radiography 09/01/2024 8:45 AM CEMENT CUTTER Impressions 09/01/2024 8:45 AM CEMENT CUTTER No acute fracture of the tibia or fibula. Alignment is normal. Electronically signed by: Greg Joy M.D. Narrative 09/01/2024 8:45 AM CEMENT CUTTER EXAMINATION: XR TIBIA FIBULA RIGHT2 VIEWS HISTORY: Pain s/p twisting injury Procedure Note Greg Joy MD - 09/01/2024 EXAMINATION: XR TIBIA FIBULA RIGHT2 VIEWS HISTORY: Pain s/p twisting injury IMPRESSION: No acute fracture of the tibia or fibula. Alignment is normal. Electronically signed by: Greg David-Flewelling, M.D. us Terry MARQUES IMG XR PROCEDURES F inal Result * XR Ankle Right 3 or More Views (08/31/2024 10:35 PM CEMENT CUTTER) Anatomical Region Laterality Modality Lower Extremities, Ankle Right Compute d Radiography 09/01/2024 11:1 6 AM CEMENT CUTTER Impressions 09/01/2024 11:16 AM CEMENT CUTTER Comparison is made to a prior study [...] Ness Liz M.D. Narrative 09/01/2024 11:16 AM CEMENT CUTTER EXAMINATION: XR ANKLE RIGHT 3 OR MORE [...] 3 or More Views (08/31/2024 10:34 PM CEMENT CUTTER) Anatomical Region Laterality Modality Lower Extremities, Foot Right Computed Radiography 09/01/2024 11:1 6 AM CEMENT CUTTER Impressions 09/01/2024 11:16 AM CEMENT CUTTER Comparison is made to a prior study [...] Ness Liz M.D. Narrative 09/01/2024 11:16 AM CEMENT CUTTER EXAMINATION: XR ANKLE RIGHT 3 OR MORE [...] Sepsis Lactate w/ Reflex (08/23/2024 2:33 AM CEMENT CUTTER) [facility] Sepsis Lactate 0.7 0.7 - 2.0 mmol/L Blood 08/23/2024 2:33 AM CEMENT CUTTER 08/23/2024 2:46 AM CEMENT CUTTER us Salena Crawley MD LAB BLOOD ORDERABLES Fin al Result [facility] [address] Department [place] [address] * eGFR (08/23/2024 2:33 AM CEMENT CUTTER) [facility] eGFR >90 >=60 mL/min/1. 73 m2 [...] last reviewed 2021. Blood 08/23/2024 2:33 AM CEMENT CUTTER 08/23/2024 3:24 AM CEMENT CUTTER Salena Crawley MD LAB BLOOD ORDERABLES Fin al Result [facility] [address] Department [place] [address] * Differential, auto (08/23/2024 2:33 AM CEMENT CUTTER) Neutrophil abs 3.1 1.5 - 6.5 K/cumm Imm gran abs 0.0 0.0 - 0.1 K/cumm [facility] Lymphocyte abs 2.0 0.8 - 3.3 K/cumm [facility] Monocyte abs 0.5 0.2 - 0.8 K/cumm [facility] Eosinophil abs 0.2 0.0 - 0.5 K/cumm [facility] Basophil abs 0.1 0.0 - 0.1 K/cumm [facility] Neutrophil pct 53.2 % [facility] Comment: Interpretive Data Percent cell count reference ranges are not reported, since discordance with absolute values may lead to misinterpretation of CBC data. Current Interpretive Data was last revised on 2017. Imm gran pct 0.2 % [facility] Comment: Interpretive Data Percent cell count reference ranges are not reported, since discordance with absolute values may lead to misinterpretation of CBC data. Current Interpretive Data was last revised on 2017. Lymphocyte pct 34.0 % [facility] Comment: Interpretive Data Percent cell count reference ranges are not reported, since discordance with absolute values may lead to misinterpretation of CBC data. Current Interpretive Data was last revised on 2017. Monocyte pct 7.8 % [facility] Comment: Interpretive Data Percent cell count reference ranges are not reported, since discordance with absolute values may lead to misinterpretation of CBC data. Current Interpretive Data was last revised on 2017. Eosinophil pct 3.8 % [facility] Comment: Interpretive Data Percent cell count reference ranges are not reported, since discordance with absolute values may lead to misinterpretation of CBC data. Current Interpretive Data was last revised on 2017. Basophil pct 1.0 % [facility] Comment: Interpretive Data Percent cell count reference ranges are not reported, since discordance with absolute values may lead to misinterpretation of CBC data. Current Interpretive Data was last revised on 2017. Blood 08/23/2024 2:33 AM CEMENT CUTTER 08/23/2024 3:24 AM CEMENT CUTTER us Salena Crawley MD LAB BLOOD ORDERABLES Fin al Result [facility] [address] Department [place] [address] * Pro B-type natriuretic peptide (08/23/2024 2:33 AM CEMENT CUTTER) NT-proBNP <36 <=300 pg/mL Comment: Interpretive Comments: [...] Revised Date: 2018. Blood 08/23/2024 2:33 AM CEMENT CUTTER 08/23/2024 3:24 AM CEMENT CUTTER us Salena Crawley MD LAB BLOOD ORDERABLES Fin al Result [facility] [address] Department [place] [address] * (ABNORMAL) CBC with auto differential (08/23/2024 2:33 AM CEMENT CUTTER) WBC 5.8 3.8 - 9.9 K/cumm Hgb 12.9(L) 13.0 - 17.5 g/dL [facility] Hct 39.2 38.9 - 50.3 % [facility] Plt 205 150 - 400 K/cumm [facility] MPV 10.8 9.1 - 12.3 fL [facility] RBC 4.39 4.30 - 5.80 M/cumm [facility] MCV 89.3 81.3 - 96.4 fL [facility] MCH 29.4 27.1 - 33.3 pg [facility] MCHC 32.9 32.3 - 35.7 g/dL [facility] RDW CV 12.8 11.1 - 14.9 % [facility] RDW SD 41.8 35.7 - 48.1 fL [facility] NRBC abs 0.00 0.00 - 0.01 K/cumm [facility] Blood 08/23/2024 2:33 AM CEMENT CUTTER 08/23/2024 3:24 AM CEMENT CUTTER Salena Crawley MD LAB BLOOD ORDERABLES Fin al Result Performing Organization Address City/[facility]/ZIP Co de Phone Number [facility] [address] [place] [place] [address] * Blood culture Blood (08/23/2024 2:33 AM CEMENT CUTTER) Report Final Report: No growth Blood 08/23/2024 2:33 AM CEMENT CUTTER 08/23/2024 2:47 AM CEMENT CUTTER Narrative [facility] - 08/28/2024 7:01 AM CEMENT CUTTER From a different site than #1. Collection->Peripheral [...] organism identification may be performed using the [employer] Blood Culture Identification panel. This assay detects microbial DNA in a blood culture broth. This assay has been cleared by the [place] Food and Drug Administration and its performance characteristics have been verified by the [facility]. Interpretive data was last revised on September 03, 2022. Salena Crawley MD LAB MICROBIOLOGY - GENER AL ORDERABLES Final Result Performing Organization Address City/[facility]/ZIP Co de Phone Number [facility] [facility] [address] Department [place], [place] [id number] * Blood culture Blood (08/23/2024 2:33 AM CEMENT CUTTER) Report Final Report: No growth Blood 08/23/2024 2:33 AM CEMENT CUTTER 08/23/2024 2:48 AM CEMENT CUTTER Narrative [facility] - 08/28/2024 7:01 AM CEMENT CUTTER Collection->Peripheral Interpretive Data 1. Blood cultures are incubated and monitored continuously for 5 days (120 hours). The first negative report is issued within 24 hours of receipt in the laboratory. 2. All positive cultures are resulted and called to physicians/care providers as soon as they are detected. 3. A rapid molecular test for organism identification may be performed using the [employer] Blood Culture Identification panel. This assay detects microbial DNA in a blood culture broth. This assay has been cleared by the [place] Food and Drug Administration and its performance characteristics have been verified by the [facility]. Interpretive data was last revised on September 03, 2022. us Salena Crawley MD LAB MICROBIOLOGY - GENER AL ORDERABLES Final Result [facility] [address] Department [place] [address] * (ABNORMAL) Comprehensive metabolic panel (08/23/2024 2:33 AM CEMENT CUTTER) Sodium 140 135 - 145 mmol/L Potassium, pl 3.9 3.3 - 4.9 mmol/L [facility] Chloride 104 97 - 110 mmol/L [facility] CO2 25 22 - 32 mmol/L [facility] Anion gap 11 2 - 15 mmol/L [facility] BUN 24 6 - 25 mg/dL [facility] Creatinine 0.82 0.80 - 1.30 mg/dL [facility] Glucose 83 70 - 199 mg/dL [facility] Comment: Interpretive Data Fasting glucose [...] 2022. Calcium 9.3 8.5 - 10.3 mg/dL [facility] Bilirubin, total 0.6 0.1 - 1.2 mg/dL [facility] Protein, pl 6.9 6.5 - 8.5 g/dL [facility] Albumin 4.0 3.5 - 5.0 g/dL [facility] Alk phos 70 40 - 130 Units/L [facility] ALT 65(H) 7 - 55 Units/L [facility] AST 30 10 - 50 Units/L [facility] Comment:Slightly Hemolyzed S pecimen Blood 08/23/2024 2:33 AM CEMENT CUTTER 08/23/2024 3:24 AM CEMENT CUTTER Result [facility] Salena Crawley MD LAB BLOOD ORDERABLES Fin al Result Performing Organization Address [facility] Co de Phone Number [facility] [address] Department [place] [address] * ECG 12 lead (08/23/2024 2:32 AM CEMENT CUTTER) 08/23/2024 2:32 AM CEMENT CUTTER Narrative [facility] - 08/24/2024 4:38 PM CEMENT CUTTER Vent Rate: 64 bpm RR Interval: 935 msec [place] Interval: 174 msec QRS Duration: 109 msec QT Interval: 409 msec QTC Interval: 418 msec P-R-T Thida: 68 - 81 - 41 degrees IMPRESSION: SINUS RHYTHM NORMAL ECG Electronically Signed By: Andrea Moralez MD [facility] Salena Crawley MD ECG ORDERABLES Final Re sult [facility] Bebo [facility] * eGFR (08/21/2024 12:35 AM CEMENT CUTTER) eGFR >90 >=60 mL/min/1. 73 m2 Comment: [...] reviewed 2021. Blood 08/21/2024 12:3 5 AM CEMENT CUTTER 08/21/2024 12:40 AM CEMENT CUTTER us Magalis MARQUES LAB BLOOD ORDERABLE S Final Result [address] Department [place] [address] * Differential, auto (08/21/2024 12:35 AM CEMENT CUTTER) Neutrophil abs 3.7 1.5 - 6.5 K/cumm Imm gran abs 0.0 0.0 - 0.1 K/cumm [facility] Lymphocyte abs 2.2 0.8 - 3.3 K/cumm [facility] Monocyte abs 0.6 0.2 - 0.8 K/cumm [facility] Eosinophil abs 0.3 0.0 - 0.5 K/cumm [facility] Basophil abs 0.1 0.0 - 0.1 K/cumm [facility] Neutrophil pct 54.1 % [facility] Comment: Interpretive Data Percent cell count reference ranges are not reported, since discordance with absolute values may lead to misinterpretation of CBC data. Current Interpretive Data was last revised on 2017. Imm gran pct 0.1 % [facility] Comment: Interpretive Data Percent cell count reference ranges are not reported, since discordance with absolute values may lead to misinterpretation of CBC data. Current Interpretive Data was last revised on 2017. Lymphocyte pct 32.5 % [facility] Comment: Interpretive Data Percent cell count reference ranges are not reported, since discordance with absolute values may lead to misinterpretation of CBC data. Current Interpretive Data was last revised on 2017. Monocyte pct 8.3 % [facility] Comment: Interpretive Data Percent cell count reference ranges are not reported, since discordance with absolute values may lead to misinterpretation of CBC data. Current Interpretive Data was last revised on 2017. Eosinophil pct 4.3 % [facility] Comment: Interpretive Data Percent cell count reference ranges are not reported, since discordance with absolute values may lead to misinterpretation of CBC data. Current Interpretive Data was last revised on 2017. Basophil pct 0.7 % [facility] Comment: Interpretive Data Percent cell count reference ranges are not reported, since discordance with absolute values may lead to misinterpretation of CBC data. Current Interpretive Data was last revised on 2017. Blood 08/21/2024 12:3 5 AM CEMENT CUTTER 08/21/2024 12:40 AM CEMENT CUTTER us Magalis MARQUES LAB BLOOD ORDERABLE S Final Result [facility] [address] [facility] Department [place] [address] * (ABNORMAL) CBC with auto differential (08/21/2024 12:35 AM CEMENT CUTTER) WBC 6.9 3.8 - 9.9 K/cumm Hgb 12.1(L) 13.0 - 17.5 g/dL [facility] Hct 36.8(L) 38.9 - 50.3 % [facility] Plt 200 150 - 400 K/cumm [facility] MPV 10.1 9.1 - 12.3 fL [facility] RBC 4.14(L) 4.30 - 5.80 M/cumm [facility] MCV 88.9 81.3 - 96.4 fL [facility] MCH 29.2 27.1 - 33.3 pg [facility] MCHC 32.9 32.3 - 35.7 g/dL [facility] RDW CV 12.8 11.1 - 14.9 % [facility] RDW SD 41.5 35.7 - 48.1 fL [facility] NRBC abs 0.00 0.00 - 0.01 K/cumm [facility] Blood 08/21/2024 12:3 5 AM CEMENT CUTTER 08/21/2024 12:40 AM CEMENT CUTTER Magalis Katharine Willy MARQUES LAB BLOOD ORDERABLE S Final Result [address] Laboratories [place], [place] [id number] * Erythrocyte sedimentation rate (08/21/2024 12:35 AM CEMENT CUTTER) Erythrocyte sedimentation rate 5 1 - 15 mm/hr [facility] Blood 08/21/2024 12:3 5 AM CEMENT CUTTER 08/21/2024 12:40 AM CEMENT CUTTER Magalis Katharine MARQUES LAB BLOOD ORDERABLE S Final Result Performing Organization Address City/[facility]/ZIP Co de Phone Number [address] [place] [address] * CRP (acute phase) (08/21/2024 12:35 AM CEMENT CUTTER) CRP <3.5 <=10.0 mg/L Blood 08/21/2024 12:3 5 AM CEMENT CUTTER 08/21/2024 12:40 AM CEMENT CUTTER Magalis Rondonzabeth Willy [place] LAB BLOOD ORDERABLE S Final Result [address] of Laboratories [place], [place] [id number] * (ABNORMAL) Basic metabolic panel (08/21/2024 12:35 AM CEMENT CUTTER) Sodium 140 135 - 145 mmol/L Potassium, pl 4.2 3.3 - 4.9 mmol/L [facility] Chloride 104 97 - 110 mmol/L [facility] CO2 26 22 - 32 mmol/L [facility] Anion gap 10 2 - 15 mmol/L [facility] BUN 34(H) 6 - 25 mg/dL [facility] Creatinine 0.91 0.80 - 1.30 mg/dL [facility] Glucose 96 70 - 199 mg/dL [facility] Comment: Interpretive Data Fasting glucose >/= [...] Calcium 9.1 8.5 - 10.3 mg/dL [facility] Blood 08/21/2024 12:3 5 AM CEMENT CUTTER 08/21/2024 12:40 AM CEMENT CUTTER us Magalis MARQUES LAB BLOOD ORDERABLE S Final Result [address] Department [place] [address] * Streptococcus Group A PCR Throat (08/20/2024 9:19 AM CEMENT CUTTER) Pathologist [facility] Strep A DNA Not Detected Not Detected Comment: This test is performed using the [employer] Xpert Group A Streptococcal Assay. This is [...] the performing laboratory. Throat 08/20/2024 9:19 AM CEMENT CUTTER 08/20/2024 9:22 AM CEMENT CUTTER Fei Murray MD LAB MICROBIOLOGY - GENERAL ORDERABLES Final Result [facility] [address] Department [place] [address] * Respiratory pathogen panel Nasopharyngeal (08/20/2024 9:19 AM CEMENT CUTTER) Pathologist [facility] Influenza A RNA Not Detected Not Detected Influenza B RNA Not Detected Not Detected [facility] RSV RNA Not Detected Not Detected [facility] COVID-19 RNA Not Detected Not Detected [facility] Coronavirus 229E RNA Not Detected Not Detected [facility] Coronavirus HKU1 RNA Not Detected Not Detected [facility] Coronavirus NL63 RNA Not Detected Not Detected [facility] Coronavirus OC43 RNA Not Detected Not Detected [facility] Adenovirus DNA Not Detected Not Detected [facility] Metapneumovirus RNA Not Detected Not Detected [facility] Rhinovirus/Enterov irus RNA Not Detected Not Detected [facility] Parainfluenza 1 RNA Not Detected Not Detected [facility] Parainfluenza 2 RNA Not Detected Not Detected [facility] Parainfluenza 3 RNA Not Detected Not Detected [facility] Parainfluenza 4 RNA Not Detected Not Detected [facility] B. pertussis DNA Not Detected Not Detected [facility] B. parapertussis DNA Not Detected Not Detected [facility] C. pneumoniae DNA Not Detected Not Detected [facility] M. pneumoniae DNA Not Detected Not Detected [facility] Comment: Interpretive Data [employer] FilmArray Respiratory Panel (RP2.1) assay is a [...] assay has FDA clearance for testing of FIELD ADVISOR swabs. The performance characteristics of this assay have been determined by [facility]. Current interpretive data was last revised on 2021. Nasopharyngeal 08/20/2024 9: 19 AM CEMENT CUTTER 08/20/2024 9:22 AM CEMENT CUTTER Narrative [facility] - 08/20/2024 10:22 AM CEMENT CUTTER Is the Patient experiencing symptoms consistent with COVID?->Yes Surveillance testing for transplant patient?->No Fei Murray MD LAB MICROBIOLOGY - GENERAL ORDERABLES Final Result [facility] [address] Department [place] [address] [place] * (ABNORMAL) D-dimer, quantitative (08/15/2024 1:08 AM CEMENT CUTTER) D-Dimer 647(H) <=499 ng/mL FEU Comment: Interpretive [...] revised on 2019. Blood 08/15/2024 1:08 AM CEMENT CUTTER 08/15/2024 1:11 AM CEMENT CUTTER us Maddison Muhammad NP LAB BLOOD ORDERABLES Final Resul t [facility] [address] [facility] [place] [address] * eGFR (08/14/2024 9:59 PM CEMENT CUTTER) eGFR >90 >=60 mL/min/1. 73 m2 Comment: [...] last reviewed 2021. Blood 08/14/2024 9:59 PM CEMENT CUTTER 08/14/2024 10:10 PM CEMENT CUTTER us Abgiail Richards MD LAB BLOOD ORDERABLES Final Result [facility] [address] [facility] [place] [address] * Differential, auto (08/14/2024 9:59 PM CEMENT CUTTER) Neutrophil abs 3.7 1.5 - 6.5 K/cumm Imm gran abs 0.0 0.0 - 0.1 K/cumm [facility] Lymphocyte abs 2.0 0.8 - 3.3 K/cumm [facility] Monocyte abs 0.5 0.2 - 0.8 K/cumm [facility] Eosinophil abs 0.2 0.0 - 0.5 K/cumm [facility] Basophil abs 0.1 0.0 - 0.1 K/cumm [facility] Neutrophil pct 57.5 % [facility] Comment: Interpretive Data Percent cell count reference ranges are not reported, since discordance with absolute values may lead to misinterpretation of CBC data. Current Interpretive Data was last revised on 2017. Imm gran pct 0.2 % [facility] Comment: Interpretive Data Percent cell count reference ranges are not reported, since discordance with absolute values may lead to misinterpretation of CBC data. Current Interpretive Data was last revised on 2017. Lymphocyte pct 30.2 % [facility] Comment: Interpretive Data Percent cell count reference ranges are not reported, since discordance with absolute values may lead to misinterpretation of CBC data. Current Interpretive Data was last revised on 2017. Monocyte pct 7.6 % [facility] Comment: Interpretive Data Percent cell [...] revised on 2017. Blood 08/14/2024 9:59 PM CEMENT CUTTER 08/14/2024 10:10 PM CEMENT CUTTER us Abigail Richards MD LAB BLOOD ORDERABLES Final Result [facility] [address] [facility]. [place] [address] * Pro B-type natriuretic peptide (08/14/2024 9:59 PM CEMENT CUTTER) NT-proBNP 75 <=300 pg/mL Comment: Interpretive Comments: [...] Heart J. 2006:27:330-337. 2. Xiomara RW, Caryn OMRAN. J. AM Emerson Cardiol: Cardiovasc Imag. 2009;2: 216- 225. Interpretive Data Last Revised Date: 2018. Blood 08/14/2024 9:59 PM CEMENT CUTTER 08/14/2024 10:10 PM CEMENT CUTTER Abigail Richards MD LAB BLOOD ORDERABLES Final Result [facility] [address] [facility] [place] [address] * CBC with auto differential (08/14/2024 9:59 PM CEMENT CUTTER) Pathologist [facility] WBC 6.5 3.8 - 9.9 K/cumm Hgb 13.3 13.0 - 17.5 g/dL [facility] Hct 39.8 38.9 - 50.3 % [facility] Plt 218 150 - 400 K/cumm [facility] MPV 10.0 9.1 - 12.3 fL [facility] RBC 4.49 4.30 - 5.80 M/cumm [facility] MCV 88.6 81.3 - 96.4 fL [facility] MCH 29.6 27.1 - 33.3 pg [facility] MCHC 33.4 32.3 - 35.7 g/dL [facility] RDW CV 12.7 11.1 - 14.9 % [facility] RDW SD 41.1 35.7 - 48.1 fL [facility] NRBC abs 0.00 0.00 - 0.01 K/cumm [facility] Blood (Blood, Venous) 08/14/2024 9:59 PM CEMENT CUTTER 08/14/2024 10:10 PM CEMENT CUTTER Abigail Richards MD LAB BLOOD ORDERABLES Final Result [facility] [address] [facility] [place] [address] * Lipase (08/14/2024 9:59 PM CEMENT CUTTER) Pathologist [facility] Lipase 50 10 - 99 Units/L Blood (Blood, Venous) 08/14/2024 9:59 PM CEMENT CUTTER 08/14/2024 10:10 PM CEMENT CUTTER Abigail Richards MD LAB BLOOD ORDERABLES Final Result Performing Organization Address [facility] Co de Phone Number [facility] [address] [place] [address] * (ABNORMAL) Comprehensive metabolic panel (08/14/2024 9:59 PM CEMENT CUTTER) Pathologist [facility] Sodium 139 135 - 145 mmol/L Potassium, pl 3.9 3.3 - 4.9 mmol/L [facility] Chloride 101 97 - 110 mmol/L [facility] CO2 27 22 - 32 mmol/L [facility] Anion gap 11 2 - 15 mmol/L [facility] BUN 25 6 - 25 mg/dL [facility] Creatinine 0.90 0.80 - 1.30 mg/dL [facility] Glucose 92 70 - 199 mg/dL [facility] Comment: Interpretive Data Fasting glucose >/= 126 [...] Calcium 9.3 8.5 - 10.3 mg/dL [facility] Bilirubin, total 0.5 0.1 - 1.2 mg/dL [facility] Protein, pl 6.6 6.5 - 8.5 g/dL [facility] Albumin 4.0 3.5 - 5.0 g/dL [facility] Alk phos 91 40 - 130 Units/L [facility] ALT 168(H) 7 - 55 Units/L [facility] AST 66(H) 10 - 50 Units/L [facility] Blood 08/14/2024 9:59 PM CEMENT CUTTER 08/14/2024 10:10 PM CEMENT CUTTER us Abigail Richards MD LAB BLOOD ORDERABLES Final Result [facility] [address] [facility] Department of [place], [place] [id number] * TRANSTHORACIC ECHO (TTE) COMPLETE W DOPPLER/CF WO CONTRAST (08/14/2024 11:39 AM CEMENT CUTTER) LV EF 55-60 % CONS SCIMAGE Anatomical Region Laterality Modality Ultrasound 08/14/2024 10:0 7 AM CEMENT CUTTER Narrative 08/14/2024 11:49 AM CEMENT CUTTER [place] [id number] [place] [address] ECHOCARDIOGRAM Patient Name: LISA AZAR : 1980 (43y 11m) Gender: M Study Date: 08/14/2024 10:07:30 AM Ht(Inch): 68 Wt(Lb): 173.06 BSA: 1.94 Vehicle Assembler: NINFA Location: [id number] Order Provider: PHOEBE ADKINS BMI: 26.31 BP: [...] Jerel Ramirez MD PhD 08/14/2024 11:48:00 AM CEMENT CUTTER Procedure Note Jerel Ramirez MD PhD - 08/14/2024 [place] [address] [place] [address] ECHOCARDIOGRAM Patient Name: LISA AZAR : 1980 (43y 11m) Gender: M Study Date: 08/14/2024 10:07:30 AM Ht(Inch): 68 Wt(Lb): 173.06 BSA: 1.94 Vehicle Assembler: NINFA Location: [address] Order Provider: PHOEBE ADKINS BMI: 26.31 [...] Jerel Ramirez MD PhD 08/14/2024 11:48:00 AM CEMENT CUTTER us Phoebe Adkins MD CV ECHO PROCEDURES Final Result * eGFR (08/13/2024 5:30 AM CEMENT CUTTER) eGFR >90 >=60 mL/min/1. 73 m2 Comment: [...] last reviewed 2021. Blood 08/13/2024 5:30 AM CEMENT CUTTER 08/13/2024 6:25 AM CEMENT CUTTER us Phoebe Adkins MD LAB BLOOD ORDERABLES Final Resul t [facility] [address] [place] [address] * (ABNORMAL) CBC without differential (08/13/2024 5:30 AM CEMENT CUTTER) [facility] WBC 5.7 3.8 - 9.9 K/cumm Hgb 11.9(L) 13.0 - 17.5 g/dL [facility] Hct 36.4(L) 38.9 - 50.3 % [facility] Plt 186 150 - 400 K/cumm [facility] MPV 10.6 9.1 - 12.3 fL [facility] RBC 4.01(L) 4.30 - 5.80 M/cumm [facility] MCV 90.8 81.3 - 96.4 fL [facility] MCH 29.7 27.1 - 33.3 pg [facility] MCHC 32.7 32.3 - 35.7 g/dL [facility] RDW CV 13.0 11.1 - 14.9 % [facility] RDW SD 43.0 35.7 - 48.1 fL [facility] NRBC abs 0.00 0.00 - 0.01 K/cumm [facility] Blood 08/13/2024 5:30 AM CEMENT CUTTER 08/13/2024 6:25 AM CEMENT CUTTER Phoebe Adkins MD LAB BLOOD ORDERABLES Final Resul t Performing Organization Address City/[facility] de Phone Number [facility] [address] [facility] [place] [address] * Phosphorus (08/13/2024 5:30 AM CEMENT CUTTER) [facility] Phosphorus, pl 2.9 2.3 - 4.5 mg/dL Blood 08/13/2024 5:30 AM CEMENT CUTTER 08/13/2024 6:25 AM CEMENT CUTTER Phoebe Adkins MD LAB BLOOD ORDERABLES Final Resul t Performing Organization Address [facility] Co de Phone Number [facility] [address] [place] [address] * Magnesium (08/13/2024 5:30 AM CEMENT CUTTER) Magnesium 1.9 1.4 - 2.5 mg/dL Blood 08/13/2024 5:30 AM CEMENT CUTTER 08/13/2024 6:25 AM CEMENT CUTTER us Phoebe Adkins MD LAB BLOOD ORDERABLES Final Resul t Performing Organization Address [facility] Co de Phone Number [facility] [address] [facility] [place] [address] * Ferritin (08/13/2024 5:30 AM CEMENT CUTTER) Ferritin 39 30 - 400 ng/mL Blood 08/13/2024 5:30 AM CEMENT CUTTER 08/13/2024 6:24 AM CEMENT CUTTER us Phoebe Adkins MD LAB BLOOD ORDERABLES Final Resul t Performing Organization Address [facility] de Phone Number [facility] [address] [place] [address] * (ABNORMAL) Hepatic function panel (08/13/2024 5:30 AM CEMENT CUTTER) Bilirubin, total 0.4 0.1 - 1.2 mg/dL Bilirubin, direct <0.2 0.1 - 0.3 mg/dL [facility] Protein, pl 5.9(L) 6.5 - 8.5 g/dL [facility] Albumin 3.5 3.5 - 5.0 g/dL [facility] Alk phos 71 40 - 130 Units/L [facility] ALT 200(H) 7 - 55 Units/L [facility] AST 101(H) 10 - 50 Units/L [facility] Blood 08/13/2024 5:30 AM CEMENT CUTTER 08/13/2024 6:25 AM CEMENT CUTTER Result Celia Adkins MD LAB BLOOD ORDERABLES Final Resul t Performing Organization Address [facility] Co de Phone Number [facility] [address] Department [place] [address] * (ABNORMAL) Basic metabolic panel (08/13/2024 5:30 AM CEMENT CUTTER) Pathologist [facility] Sodium 140 135 - 145 mmol/L Potassium, pl 4.1 3.3 - 4.9 mmol/L [facility] Chloride 106 97 - 110 mmol/L [facility] CO2 24 22 - 32 mmol/L [facility] Anion gap 10 2 - 15 mmol/L [facility] BUN 23 6 - 25 mg/dL [facility] Creatinine 0.82 0.80 - 1.30 mg/dL [facility] Glucose 87 70 - 199 mg/dL [facility] Comment: Interpretive Data Fasting glucose [...] 2022. Calcium 8.1(L) 8.5 - 10.3 mg/dL [facility] Blood 08/13/2024 5:30 AM CEMENT CUTTER 08/13/2024 6:25 AM CEMENT CUTTER Phoebe Adkins MD LAB BLOOD ORDERABLES Final Resul t [facility] [address] Department [place] [address] * Drugs of Abuse Screen, Urine with Reflex Confirmation (08/13/2024 12:15 AM CEMENT CUTTER) Pathologist [facility] Amphetamine, ur Not Detected CutOff 500ng/mL Comment: Interpretive Data - Amphetamines: Samples containing greater than 500 ng/mL d-methamphetamine or other cross-reacting amphetamine compounds are reported as positive. Amphetamine immunoassays are subject to significant false positive rates due to cross-reactivity of non-amphetamine drugs. Confirmatory testing required for definitive results. Current Interpretive Data was last reviewed 2023. Barbiturates, ur Not Detected CutOff 200ng/mL [facility] Comment: Interpretive Data - Barbiturates: Samples containing greater than 200 ng/mL secobarbital or other cross-reacting barbiturate compounds are reported as positive. False positive and false negative results are possible. Confirmatory testing required for definitive results. Current Interpretive Data was last reviewed 2023. Benzodiazepines, ur Not Detected CutOff 100ng/mL [facility] Comment: Interpretive Data - Benzodiazepines: Samples containing greater than 100 ng/mL nordiazepam or other cross-reacting compounds are reported as positive. False positive and false negative results are possible. Confirmatory testing required for definitive results. Current Interpretive Data was last reviewed 2023. Cannabinoids, ur Not Detected CutOff 50 ng/mL [facility] Comment: Interpretive Data - Cannabinoids: Samples containing greater than 50 ng/mL delta-9 THC -COOH or other cross- reacting compounds are reported as positive. False positive and false negative results are possible. Confirmatory testing required for definitive results. Current Interpretive Data was last reviewed 2023. Cocaine, ur Not Detected CutOff 150ng/mL [facility] [facility] Comment: Interpretive Data - Cocaine: Samples containing greater than 150 ng/mL benzoylecgonine or other cross- reacting compounds are reported as positive. False positive and false negative results are possible. Confirmatory testing required for definitive results. Current Interpretive Data was last reviewed 2023. Fentanyl, Ur Not Detected CutOff 5 ng/mL [facility] Comment: Interpretive Data - Fentanyl: Samples containing greater than 5 ng/mL norfentanyl, fentanyl, or other cross-reacting fentanyl compounds are reported as positive. False positive and false negative results are possible. Confirmatory testing required for definitive results. Current Interpretive Data was last reviewed 2023. Methadone, ur Not Detected CutOff 300ng/mL [facility] Comment: Interpretive Data - Methadone: Samples containing greater than 300 ng/mL d,l-methadone or other cross-reacting compounds are reported as positive. False positive and false negative results are possible. Confirmatory testing required for definitive results. Current Interpretive Data was last reviewed 2023. Opiates, ur Not Detected CutOff 300ng/mL [facility] Comment: Interpretive Data - Opiates: Samples containing greater than 300 ng/mL morphine or other cross-reacting compounds are reported as positive. False positive and false negative results are possible. Confirmatory testing required for definitive results. Current Interpretive Data was last reviewed 2023. Oxycodone, ur Not Detected CutOff 100ng/mL [facility] Comment: Interpretive Data - Oxycodone: Samples containing greater than 100 ng/mL oxycodone or other cross-reacting compounds are reported as positive. False positive and false negative results are possible. Confirmatory testing required for definitive results. Current Interpretive Data was last reviewed 2023. Phencyclidine, ur Not Detected CutOff 25 ng/mL [facility] Comment: Interpretive Data - Phencyclidine: Samples containing greater than 25 ng/mL phencyclidine or other cross-reacting compounds are reported as positive. False positive and false negative results are possible. Confirmatory testing required for definitive results. Current Interpretive Data was last reviewed 2023. Urine Creatinine 90 mg/dL [facility] Comment: Interpretive Data Urine Creatinine: < 10 mg/dL is extremely dilute = or > 10 but < 20 mg/dL is dilute = or > 20 mg/dL is normal Current Interpretive Data was last revised on 2017. Urine 08/13/2024 12:1 5 AM CEMENT CUTTER 08/13/2024 12:26 AM CEMENT CUTTER Narrative [facility] - 08/13/2024 12:54 AM CEMENT CUTTER Drug of Abuse screening is performed by immunoassay for medical purposes only. This is not to be used for Pain Management purposes. If Detected, confirmation testing will be performed for Amphetamines, Cocaine, Fentanyl, Methadone, Opiates, Oxycodone or Phencyclidine. us Batsheva Portillo MD LAB URINE ORDERABLES Final Result [facility] [address] Department [place] [address] * (ABNORMAL) Urinalysis reflex to microscopic and culture Urine (08/13/2024 12:15 AM CEMENT CUTTER) Color, ur Yellow Yellow Clarity, ur Clear Clear [facility] Specific gravity, ur >1.050(H) 1.003 - 1.030 [facility] pH, urine 6.5 [facility] Comment: Interpretive Data U rine pH is affected by diet, medications, systemic acid-base disturbances, and renal tubular function. pH may affect urinary stone formation. For example, urine pH below 6.0 may help reduce the tendency for calcium phosphate stones and pH greater than 6.0 may reduce the tendency for uric acid stone formation. Source: [facility] Current Interpretive Data was last revised on 2017 Protein, ur ql Negative Negative [facility] Glucose, ur ql Negative Negative [facility] Ketones, ur Negative Negative [facility] Bilirubin, ur Negative Negative [facility] Blood, ur Negative Negative [facility] Urobilinogen, ur <2.0 <2.0 mg/dL [facility] Nitrite, ur Negative Negative [facility] Leukocyte esterase, ur Negative Negative [facility] UA reflex comment Reflex conditions for microscopic UA and culture not met. [facility] Urine 08/13/2024 12:1 5 AM CEMENT CUTTER 08/13/2024 12:15 AM CEMENT CUTTER us Batsheva Portillo MD LAB MICROBIOLOGY - GENERAL ORDERABLES Final Result [facility] [address] Department [place] [address] * CT Chest PE (CTA) W Contrast (08/12/2024 11:48 PM CEMENT CUTTER) Anatomical Region Laterality Modality Body N/A Computed Tomogra phy 08/12/2024 11:4 3 PM CEMENT CUTTER Impressions 08/13/2024 9:24 AM CEMENT CUTTER No pulmonary embolism. Electronically signed by: Tari Gavin M.D. Narrative 08/13/2024 9:24 AM CEMENT CUTTER EXAMINATION: CT CHEST PE (CTA) W CONTRAST [...] Lower Extremity Bilateral Complete (08/12/2024 11:46 PM CEMENT CUTTER) Anatomical Region Laterality Modality Vascular Bilateral Ultrasound 08/13/2024 12:0 9 PM CEMENT CUTTER Impressions 08/13/2024 12:09 PM CEMENT CUTTER 1. No evidence of DVT in the lower extremities bilaterally. 2. Pulsatile venous flow bilaterally. This may suggest increased intravascular volume or right-sided valvular heart disease. Clinical correlation suggested. 3. Prominent lymph nodes in both groins. Electronically signed by: Lv Smart M.D. Narrative 08/13/2024 12:09 PM CEMENT CUTTER Lower Extremity Vein Duplex Bilateral DATE: 08/12/2024 [...] ult * US RUQ (08/12/2024 11:38 PM CEMENT CUTTER) Anatomical Region Laterality Modality Abdomen N/A Ultrasound 08/12/2024 10:4 5 PM CEMENT CUTTER Impressions 08/13/2024 11:42 AM CEMENT CUTTER 1. Trace perihepatic ascites. 2. Pulsatile portal venous flow and dilated inferior vena cava, which may represent elevated right heart pressures and/or tricuspid regurgitation. For the purposes of quality lead, this study was initially interpreted by teleradiology. There is no significant discrepancy. Electronically signed by: Saeid Baker MD, PHD Narrative 08/13/2024 11:42 AM CEMENT CUTTER EXAMINATION: LIMITED ABDOMINAL SONOGRAM HISTORY: Elevated liver [...] tricuspid regurgitation. For the purposes of quality lead, this study was initially interpreted by teleradiology. There is no significant discrepancy. Electronically signed by: Saeid Baker MD, PHD us Batsheva Portillo MD IMG US PROCEDURES Final Res ult * D-Dimer - Add on lab test (08/12/2024 10:29 PM CEMENT CUTTER) Acceptable Yes Blood 08/12/2024 10:2 9 PM CEMENT CUTTER 08/12/2024 10:29 PM CEMENT CUTTER Narrative [facility] - 08/12/2024 10:29 PM CEMENT CUTTER Name of Test->D-Dimer us Batsheva Portillo MD LAB BLOOD ORDERABLES Final Result [facility] [address] Department [place] [address] * CT Head and Cervical Spine WO Contrast (08/12/2024 10:20 PM CEMENT CUTTER) Anatomical Region Laterality Modality Head and Neck N/A Computed Tomogra phy 08/12/2024 10:1 3 PM CEMENT CUTTER Impressions 08/13/2024 7:[address] HEAD: No acute intracranial abnormality or calvarial fracture. CT CERVICAL SPINE: 1. No acute osseous abnormality. 2. Multilevel cervical spondylosis; most pronounced at C5-C6 and C6-C7. For the purposes of quality lead, this study was initially interpreted by teleradiology. There is no significant discrepancy. Electronically signed by: Zaheer Navas M.D. Narrative 08/13/2024 7:02 AM CEMENT CUTTER EXAMINATION: 1. CT head without contrast 2. [...] and C6-C7. For the purposes of quality lead, this study was initially interpreted by teleradiology. There is no significant discrepancy. Electronically signed by: Zaheer Navas M.D. us Batsheva Portillo MD IMG CT PROCEDURES Final Res ult * Protime-INR (08/12/2024 10:05 PM CEMENT CUTTER) PT 12.8 9.7 - 13.0 sec INR 1.18 0.90 - 1.20 [facility] Comment: Interpretive data Oral anticoagulant therapeutic ranges: Venous thromboembolism prophylaxis or treatment: 2.0-3.0 CARDIOLOGY Standard range: 2.0-3.0 High-intensity range: 2.5-3.5 Refer to indication-specific guidelines for appropriate target ranges for prosthetic heart valve replacement. Current interpretive data was last revised on 2019. Blood 08/12/2024 10:0 5 PM CEMENT CUTTER 08/12/2024 10:29 PM CEMENT CUTTER us Batsheva Portillo MD LAB BLOOD ORDERABLES Final Result Performing Organization Address City/[facility] Co de Phone Number [facility] [address] [place] [address] * (ABNORMAL) D-dimer, quantitative (08/12/2024 10:05 PM CEMENT CUTTER) D-Dimer 1,783(H) <=499 ng/mL [facility]U Comment: Interpretive [...] on 2019. Blood 08/12/2024 10:0 5 PM CEMENT CUTTER 08/12/2024 10:05 PM CEMENT CUTTER us Batsheva Portillo MD LAB BLOOD ORDERABLES Final Result Performing Organization Address [facility] Co de Phone Number [facility] [address] [facility] [place] [address] * Folate - Add on lab test (08/12/2024 9:53 PM CEMENT CUTTER) Acceptable Yes Blood 08/12/2024 9:53 PM CEMENT CUTTER 08/12/2024 9:53 PM CEMENT CUTTER Narrative [facility] - 08/12/2024 9:54 PM CEMENT CUTTER Name of Test->Folate us Batsheva Portillo MD LAB BLOOD ORDERABLES Final Result Performing Organization Address [facility] Co de Phone Number [facility] [address] [facility] [place] [address] * Vitamin B12 - Add on lab test (08/12/2024 9:53 PM CEMENT CUTTER) Acceptable Yes Blood 08/12/2024 9:53 PM CEMENT CUTTER 08/12/2024 9:54 PM CEMENT CUTTER Narrative [facility] - 08/12/2024 9:54 PM CEMENT CUTTER Name of Test->Vitamin B12 us Batsheva Portillo MD LAB BLOOD ORDERABLES Final Result [facility] [address] [facility] [place] [address] * Iron profile - Add on lab test (08/12/2024 9:53 PM CEMENT CUTTER) Acceptable Yes Blood 08/12/2024 9:53 PM CEMENT CUTTER 08/12/2024 9:54 PM CEMENT CUTTER Narrative [facility] - 08/12/2024 9:54 PM CEMENT CUTTER Name of Test->Iron profile us Batsheva Portillo MD LAB BLOOD ORDERABLES Final Result Performing Organization Address [facility]/ZIP Co de Phone Number [facility] [address] [place] [address] * NT-Pro BNP - Add on lab test (08/12/2024 9:53 PM CEMENT CUTTER) Acceptable Yes Blood 08/12/2024 9:53 PM CEMENT CUTTER 08/12/2024 9:53 PM CEMENT CUTTER Narrative [facility] - 08/12/2024 9:54 PM CEMENT CUTTER Name of Test->NT-Pro BNP us Batsheva Portillo MD LAB BLOOD ORDERABLES Final Result Performing Organization Address City/[facility]/ZIP Co de Phone Number [facility] [address] [facility] [place] [address] * TSH reflex Free T4 - Add on lab test (08/12/2024 9:53 PM CEMENT CUTTER) Acceptable Yes Blood 08/12/2024 9:53 PM CEMENT CUTTER 08/12/2024 9:53 PM CEMENT CUTTER Narrative [facility] 08/12/2024 9:54 PM CEMENT CUTTER Name of Test->TSH reflex Free T4 us Batsheva Portillo MD LAB BLOOD ORDERABLES Final Result Performing Organization Address [facility] Co de Phone Number [facility] [address] [facility] [employer] [place], [place] [id number] * Phosphorus - Add on lab test (08/12/2024 9:53 PM CEMENT CUTTER) Acceptable Yes Blood 08/12/2024 9:53 PM CEMENT CUTTER 08/12/2024 9:53 PM CEMENT CUTTER Narrative [facility] 08/12/2024 9:55 PM CEMENT CUTTER Name of Test->Phosphorus us aBtsheva Portillo MD LAB BLOOD ORDERABLES Final Result Performing Organization Address [facility] Co de Phone Number [facility] [address] [facility] [employer] [place], [place] [id number] * Magnesium - Add on lab test (08/12/2024 9:53 PM CEMENT CUTTER) Acceptable Yes Blood 08/12/2024 9:53 PM CEMENT CUTTER 08/12/2024 9:53 PM CEMENT CUTTER Narrative [facility] 08/12/2024 9:55 PM CEMENT CUTTER Name of Test->Magnesium us Batsheva Portillo MD LAB BLOOD ORDERABLES Final Result Performing Organization Address [facility] Co de Phone Number [facility] [address] [facility] [employer] [place], [place] [id number] * Troponin T high-sensitivity 2-hour (08/12/2024 9:52 PM CEMENT CUTTER) Trop T hs 6 <=22 ng/L Comment: Interpretive Data For further hscTnT resources including the diagnostic algorithm and an aid in interpretation, copy and paste this link: https://nrl.testcatalog.org/show/hsTrop Current Interpretive Data last revised 2020. Trop T hs delta -1 ng/L [facility] Trop T hs interp Insignificant [facility] Blood 08/12/2024 9:52 PM CEMENT CUTTER 08/12/2024 10:30 PM CEMENT CUTTER us Ace Gonzales MD LAB BLOOD ORDERABLES F inal Result Performing Organization Address City/[facility]/ZIP Co de Phone Number [facility] [address] [place] [address] * Ethanol (08/12/2024 9:52 PM CEMENT CUTTER) Ethanol <10 <=10 mg/dL Comment: Interpretive Data Legal limit of intoxication > or = 80 mg/dL Levels > or = 400 mg/dL are potentially TOXIC. Current interpretive data was last revised on 2018. Blood 08/12/2024 9:52 PM CEMENT CUTTER 08/12/2024 10:29 PM CEMENT CUTTER us Batsheva Portillo MD LAB BLOOD ORDERABLES Final Result Performing Organization Address [facility] Co de Phone Number [facility] [address] [place] [address] * Hepatitis panel, acute Blood (08/12/2024 9:13 PM CEMENT CUTTER) Hep A IgM Nonreactive Nonreactive Comment: Interpretive [...] on 19. Hep C Ab Nonreactive Nonreactive [facility] Comment: Interpretive Data Nonreactive: Antibodies [...] last revised on 2019. HepBsAg Nonreactive Nonreactive [facility] Blood 08/12/2024 9:13 PM CEMENT CUTTER 08/12/2024 9:17 PM CEMENT CUTTER Batsheva Portillo MD LAB MICROBIOLOGY - GENERAL ORDERABLES Final Result Performing Organization Address [facility] Co de Phone Number [facility] [address] [place] [address] * Acetaminophen level (08/12/2024 9:13 PM CEMENT CUTTER) Acetaminophen <5 <=5 mcg/mL Comment: Interpretive Data Significant hepatic injury may occur and treatment with n-acetyl cysteine is generally recommended if the acetaminophen level exceeds: 150 mcg/mL at 4 hours after ingestion 75 mcg/mL at 8 hours after ingestion 38 mcg/mL at 12 hours after ingestion 19 mcg/mL at 16 hours after ingestion Consult toxicology or poison control ([phone]) for unknown ingestion time. Current interpretive data was last revised 2023. Blood 08/12/2024 9:13 PM CEMENT CUTTER 08/12/2024 9:17 PM CEMENT CUTTER us Batsheva Portillo MD LAB BLOOD ORDERABLES Final Result Performing Organization Address [facility] Co de Phone Number [facility] [address] [facility] [place], [place] [phone] * Troponin T high-sensitivity series (baseline, 2hr, 4hr, 6hr) (08/12/2024 8:08 PM CEMENT CUTTER) Trop T hs 7 <=22 ng/L Comment: Interpretive Data For further hscTnT resources including the diagnostic algorithm and an aid in interpretation, copy and paste this link: https://nrl.testcatalog.org/show/hsTrop Current Interpretive Data last revised 2020. Blood 08/12/2024 8:08 PM CEMENT CUTTER 08/12/2024 8:23 PM CEMENT CUTTER us Batsheva Portillo MD LAB BLOOD ORDERABLES Final Result Performing Organization Address [facility] Co de Phone Number [facility] [address] [place], [place] [id number] * eGFR (08/12/2024 8:08 PM CEMENT CUTTER) eGFR >90 >=60 mL/min/1. 73 m2 Comment: [...] last reviewed 2021. Blood 08/12/2024 8:08 PM CEMENT CUTTER 08/12/2024 8:23 PM CEMENT CUTTER us Batsheva Portillo MD LAB BLOOD ORDERABLES Final Result Performing Organization Address [facility] Co de Phone Number [facility] [address] [place] [address] * Differential, auto (08/12/2024 8:08 PM CEMENT CUTTER) Neutrophil abs 3.5 1.5 - 6.5 K/cumm Imm gran abs 0.0 0.0 - 0.1 K/cumm [facility] Lymphocyte abs 2.2 0.8 - 3.3 K/cumm [facility] Monocyte abs 0.5 0.2 - 0.8 K/cumm [facility] Eosinophil abs 0.3 0.0 - 0.5 K/cumm [facility] Basophil abs 0.1 0.0 - 0.1 K/cumm [facility] Neutrophil pct 54.5 % [facility] Comment: Interpretive Data Percent cell count reference ranges are not reported, since discordance with absolute values may lead to misinterpretation of CBC data. Current Interpretive Data was last revised on 2017. Imm gran pct 0.3 % [facility] Comment: Interpretive Data Percent cell count reference ranges are not reported, since discordance with absolute values may lead to misinterpretation of CBC data. Current Interpretive Data was last revised on 2017. Lymphocyte pct 33.3 % [facility] Comment: Interpretive Data Percent cell count reference ranges are not reported, since discordance with absolute values may lead to misinterpretation of CBC data. Current Interpretive Data was last revised on 2017. Monocyte pct 6.9 % [facility] Comment: Interpretive Data Percent cell count reference ranges are not reported, since discordance with absolute values may lead to misinterpretation of CBC data. Current Interpretive Data was last revised on 2017. Eosinophil pct 4.1 % [facility] Comment: Interpretive Data Percent cell count reference ranges are not reported, since discordance with absolute values may lead to misinterpretation of CBC data. Current Interpretive Data was last revised on 2017. Basophil pct 0.9 % [facility] Comment: Interpretive Data Percent cell count reference ranges are not reported, since discordance with absolute values may lead to misinterpretation of CBC data. Current Interpretive Data was last revised on 2017. Blood 08/12/2024 8:08 PM CEMENT CUTTER 08/12/2024 8:23 PM CEMENT CUTTER us Batsheva Portillo MD LAB BLOOD ORDERABLES Final Result Performing Organization Address [facility] Co de Phone Number [facility] [address] [place] [address] * Pro B-type natriuretic peptide (08/12/2024 8:08 PM CEMENT CUTTER) NT-proBNP 60 <=300 pg/mL Comment: Interpretive Comments: [...] Revised Date: 2018. Blood 08/12/2024 8:08 PM CEMENT CUTTER 08/12/2024 8:23 PM CEMENT CUTTER us Batsheva Portillo MD LAB BLOOD ORDERABLES Final Result Performing Organization Address [facility] Co de Phone Number [facility] [address] Department [place] [address] * Thyroid Function [place] (08/12/2024 8:08 PM CEMENT CUTTER) [facility] TSH 1.43 0.30 - 4.20 mcIUnit/mL Blood 08/12/2024 8:08 PM CEMENT CUTTER 08/12/2024 8:23 PM CEMENT CUTTER us Batsheva Portillo MD LAB BLOOD ORDERABLES Final Result Performing Organization Address City/[facility]/ZIP Co de Phone Number [facility] [address] [facility] [place] [address] * (ABNORMAL) Iron profile w/ IBC (08/12/2024 8:08 PM CEMENT CUTTER) [facility] Iron 46(L) 50 - 150 mcg/dL TIBC 296 250 - 400 mcg/dL [facility] Transferrin saturation 16(L) 20 - 50 % [facility] Blood 08/12/2024 8:08 PM CEMENT CUTTER 08/12/2024 8:23 PM CEMENT CUTTER us Batsheva Portillo MD LAB BLOOD ORDERABLES Final Result Performing Organization Address [facility] Co de Phone Number [facility] [address] [facility] [place] [address] * (ABNORMAL) CBC with auto differential (08/12/2024 8:08 PM CEMENT CUTTER) [facility] WBC 6.5 3.8 - 9.9 K/cumm Hgb 12.5(L) 13.0 - 17.5 g/dL [facility] Hct 38.3(L) 38.9 - 50.3 % [facility] Plt 207 150 - 400 K/cumm [facility] MPV 10.1 9.1 - 12.3 fL [facility] RBC 4.22(L) 4.30 - 5.80 M/cumm [facility] MCV 90.8 81.3 - 96.4 fL [facility] MCH 29.6 27.1 - 33.3 pg [facility] MCHC 32.6 32.3 - 35.7 g/dL [facility] RDW CV 13.0 11.1 - 14.9 % [facility] RDW SD 43.2 35.7 - 48.1 fL [facility] NRBC abs 0.00 0.00 - 0.01 K/cumm [facility] Blood (Blood, Venous) 08/12/2024 8:08 PM CEMENT CUTTER 08/12/2024 8:23 PM CEMENT CUTTER us Batsheva Portillo MD LAB BLOOD ORDERABLES Final Result Performing Organization Address City/[facility]/ZIP Co de Phone Number [place] [id number] [facility] [place] [address] * Phosphorus (08/12/2024 8:08 PM CEMENT CUTTER) Phosphorus, pl 3.1 2.3 - 4.5 mg/dL Blood 08/12/2024 8:08 PM CEMENT CUTTER 08/12/2024 8:23 PM CEMENT CUTTER us Batsheva Portillo MD LAB BLOOD ORDERABLES Final Result Performing Organization Address [facility] Co de Phone Number [facility] [address] [place] [address] * Magnesium (08/12/2024 8:08 PM CEMENT CUTTER) Magnesium 2.0 1.4 - 2.5 mg/dL Blood 08/12/2024 8:08 PM CEMENT CUTTER 08/12/2024 8:23 PM CEMENT CUTTER us Batsheva Portillo MD LAB BLOOD ORDERABLES Final Result Performing Organization Address City/[facility]/ZIP Co de Phone Number [facility] [address] Department [place] [address] * Folate (08/12/2024 8:08 PM CEMENT CUTTER) Folic acid 7.6 >=5.0 ng/mL Blood 08/12/2024 8:08 PM CEMENT CUTTER 08/12/2024 8:23 PM CEMENT CUTTER Batsheva Portillo MD LAB BLOOD ORDERABLES Final Result Performing Organization Address [facility] Co de Phone Number [facility] [address] [facility] [place] [address] * Vitamin B12 (08/12/2024 8:08 PM CEMENT CUTTER) [facility] Vitamin B12 860 230 - 1,250 pg/mL Blood 08/12/2024 8:08 PM CEMENT CUTTER 08/12/2024 8:23 PM CEMENT CUTTER Batsheva Portillo MD LAB BLOOD ORDERABLES Final Result Performing Organization Address [facility] de Phone Number [facility] [address] [place] [address] * (ABNORMAL) Comprehensive metabolic panel (08/12/2024 8:08 PM CEMENT CUTTER) [facility] Sodium 142 135 - 145 mmol/L Potassium, pl 4.4 3.3 - 4.9 mmol/L [facility] Chloride 106 97 - 110 mmol/L [facility] CO2 27 22 - 32 mmol/L [facility] Anion gap 9 2 - 15 mmol/L [facility] BUN 29(H) 6 - 25 mg/dL [facility] Creatinine 1.02 0.80 - 1.30 mg/dL [facility] Glucose 104 70 - 199 mg/dL [facility] Comment: Interpretive Data Fasting glucose [...] 2022. Calcium 8.6 8.5 - 10.3 mg/dL [facility] Bilirubin, total 0.3 0.1 - 1.2 mg/dL [facility] Protein, pl 6.1(L) 6.5 - 8.5 g/dL [facility] Albumin 3.7 3.5 - 5.0 g/dL [facility] Alk phos 83 40 - 130 Units/L [facility] ALT 230(H) 7 - 55 Units/L [facility] AST 158(H) 10 - 50 Units/L [facility] Blood 08/12/2024 8:08 PM CEMENT CUTTER 08/12/2024 8:23 PM CEMENT CUTTER us Batsheva Portillo MD LAB BLOOD ORDERABLES Final Result [facility] [address] Department [place] [address] * XR Chest PA Lateral 2 Views (08/12/2024 7:27 PM CEMENT CUTTER) Anatomical Region Laterality Modality Body, Chest N/A Computed Radiogr aphy 08/13/2024 7:44 AM CEMENT CUTTER Impressions 08/13/2024 7:44 AM CEMENT CUTTER There is subtle airspace opacity in the right lung base which may represent pneumonia in the appropriate clinical setting. Alternatively, this may represent atelectasis. No pleural effusion. No pneumothorax. Heart size is normal. Electronically signed by: Tari Gavin M.D. Narrative 08/13/2024 7:44 AM CEMENT CUTTER EXAMINATION: XR CHEST PA LATERAL 2 VIEWS [...] * ECG 12 lead (08/12/2024 6:48 PM CEMENT CUTTER) 08/12/2024 6:48 PM CEMENT CUTTER Narrative [facility] - 08/13/2024 1:41 PM CEMENT CUTTER Vent Rate: 63 bpm RR Interval: 938 msec [place] Interval: 165 msec QRS Duration: 96 msec QT Interval: 378 msec QTC Interval: 386 msec P-R-T Thida: 74 - 81 - 50 degrees IMPRESSION: SINUS RHYTHM POSSIBLE LEFT ATRIAL ENLARGEMENT [-0.1mV P WAVE IN V1/V2] BORDERLINE ECG Electronically Signed By: Jerel Ramirez MD PhD us Batsheva Portillo MD ECG ORDERABLES Final Resul t [facility] * XR Chest Pa Lateral 2 Views (08/11/2024 2:02 AM CEMENT CUTTER) Anatomical Region Laterality Modality Body, Chest N/A Computed Radiogr aphy 08/11/2024 3:00 AM CEMENT CUTTER Impressions 08/11/2024 9:05 AM CEMENT CUTTER Comparison radiograph from 08/08/2024. No consolidation, pleural effusion, or pneumothorax. Cardiomediastinal silhouette within normal limits. Dictated by: Julio Rooney M.D. The radiology attending physician has personally reviewed this study, and had reviewed and/or edited this written report and agrees with it. Electronically signed by: Brice Mantilla M.D. Narrative 08/11/2024 9:05 AM CEMENT CUTTER EXAMINATION: 2 view chest radiograph Procedure Note [...] sult * ECG 12-LEAD (08/11/2024 1:43 AM CEMENT CUTTER) Narrative [facility] - 08/11/2024 1:43 AM CEMENT CUTTER Johnnie Kelly MD 08/11/2024 1:44 AM ECG [...] Hawkins MD ECG ORDERABLES Final Resu lt [facility] * XR Chest PA Lateral 2 Views (08/08/2024 10:42 PM CEMENT CUTTER) Anatomical Region Laterality Modality Body, Chest N/A Computed Radiogr aphy 08/08/2024 11:0 3 PM CEMENT CUTTER Impressions 08/09/2024 10:05 AM CEMENT CUTTER The current study is compared with the prior radiograph dated 09/13/2019. Mild bibasilar atelectasis. No consolidation, pleural effusion, or pneumothorax. Cardiomediastinal silhouette within normal limits. Dictated by: Chet Boogie MD The radiology attending physician has personally reviewed this study, and had reviewed and/or edited this written report and agrees with it. Electronically signed by: Steve Arce M.D. Narrative 08/09/2024 10:05 AM CEMENT CUTTER EXAMINATION: 2 view chest radiograph Procedure Note [...] CT Head WO Contrast (08/08/2024 10:34 PM CEMENT CUTTER) Anatomical Region Laterality Modality Head and Neck N/A Computed Tomogra phy 08/08/2024 10:4 4 PM CEMENT CUTTER Impressions 08/09/2024 10:54 AM CEMENT CUTTER 1. No acute intracranial process. 2. Large burden of cerumen in both external auditory canals which may be impacted. Dictated by: Juancho Marquez MD, Ph.D The radiology attending physician has personally reviewed this study, and had reviewed and/or edited this written report and agrees with it. Electronically signed by: Indio Zambrano M.D. Narrative 08/09/2024 10:54 AM CEMENT CUTTER EXAMINATION: CT head without contrast HISTORY: 43-year-old [...] ult * ECG 12-LEAD (08/08/2024 8:56 PM CEMENT CUTTER) Narrative [facility] - 08/08/2024 8:56 PM CEMENT CUTTER Salena Cobb MD 08/08/2024 8:57 PM ECG [...] Gatica MD ECG ORDERABLES Final Resul t [facility] * (ABNORMAL) Respiratory pathogen panel Nasopharyngeal (08/06/2024 9:59 AM CEMENT CUTTER) Pathologist [facility] Influenza A RNA Not Detected Not Detected Influenza B RNA Not Detected Not Detected [facility] RSV RNA Not Detected Not Detected [facility] COVID-19 RNA Not Detected Not Detected [facility] Coronavirus 229E RNA Not Detected Not Detected [facility] Coronavirus HKU1 RNA Not Detected Not Detected [facility] Coronavirus NL63 RNA Detected(A) Not Detected [facility] Coronavirus OC43 RNA Not Detected Not Detected [facility] Adenovirus DNA Not Detected Not Detected [facility] Metapneumovirus RNA Not Detected Not Detected [facility] Rhinovirus/Enterov irus RNA Not Detected Not Detected [facility] Parainfluenza 1 RNA Not Detected Not Detected [facility] Parainfluenza 2 RNA Not Detected Not Detected [facility] Parainfluenza 3 RNA Not Detected Not Detected [facility] Parainfluenza 4 RNA Not Detected Not Detected [facility] B. pertussis DNA Not Detected Not Detected [facility] B. parapertussis DNA Not Detected Not Detected [facility] C. pneumoniae DNA Not Detected Not Detected [facility] M. pneumoniae DNA Not Detected Not Detected [facility] Nasopharyngeal 08/06/2024 9: 59 AM CEMENT CUTTER 08/06/2024 10:52 AM CEMENT CUTTER Narrative [facility] - 08/06/2024 11:43 AM CEMENT CUTTER Is the Patient experiencing symptoms consistent with COVID?->Yes Surveillance testing for transplant patient?->No Interpretive Data The [employer] FilmArray Respiratory Panel (RP2.1) assay is a [...] assay has FDA clearance for testing of FIELD ADVISOR swabs. The performance of additional specimen types has been assessed by the performing laboratory. The performance characteristics of this assay have been determined by [facility] Infectious Disease [facility]. Current interpretive data was last revised on 22. [facility] MICROBIOLOGY - GENERAL [place] Final Result [facility] Department [place] [address] from Last 3 Months Insurance [facility] [place] [address] [facility] [place] [address] [facility] [employer] [employer] Advance Directives For more information, please contact: [phone] * Full Code (Latest Code Status on File) Date Activated Date Inactivated Comments 08/13/2024 3:12 AM 08/14/2024 6:01 PM * Full Code Date Activated Date Inactivated Comments 10/28/2022 5:15 PM 10/29/2022 2:07 PM * Full Code Date Activated Date Inactivated Comments 08/09/2019 5:28 PM 08/10/2019 5:09 PM * Full Code Date Activated Date Inactivated Comments 07/29/2019 4:26 PM 08/04/2019 10:36 PM Care Teams Insurance Sales Representative Relationship Specialty [place] [id number] [place] [address] PCP - General Family Medicine 05/18/24 [place] [address] [place] [address] Referring Physician General Surgery 08/04/19 [place] [id number] [address] Consulting Physician Gastroenterology 08/04/19
--- OUTSIDE RECORDS SUMMARY | 2024-09-21 20:53 | XMS_ITS | Encounter Summary ---
Author Organization [facility] [place] [address] [place] [address] Care Team Providers Care Stone Polisher Machine Name Role Phone Unavailable Primary Care Provider Unavailabl e Prior Encounters Date Type Department Care Team Description 11/19/2022 Travel Plan of Treatment Not on file Visit Diagnoses Not on file [facility]
--- OUTSIDE RECORDS SUMMARY | 2024-09-21 20:53 | XMS_ITS | Referral Summary ---
Author Organization [address] Address [address] [place] [phone] Care Team Providers Care Business Ethics Professor Name Role Phone Elias Andrews MD Unavailable [phone] Jonah Otto MD Unavailable [phone] Jerel Camejo MD Primary Care Provider [phone] Encounters Date Type Department Care Team Description 09/20/2024 4:07 PM EXPORT SPECIALIST - 09/20/2024 4:49 PM [facility] Emergency Department 1 [place] [address] Medication refill (Primary Dx) Discharge Disposition: Discharge to home or self care 09/20/2024 1:26 AM EXPORT SPECIALIST - 09/20/2024 2:22 AM [facility] Emergency Department 1 [place] [address] Cesar Chiang MD Viral pharyngitis (Primary Dx) Discharge Disposition: Discharge to home or self care 09/19/2024 1:39 AM EXPORT SPECIALIST - 09/19/2024 2:32 AM [facility] Emergency Department 1 [place] [address] Jasbir Yañez MD Pedal edema (Primary Dx) Discharge Disposition: Discharge to home or self care 09/18/2024 6:00 PM EXPORT SPECIALIST - 09/18/2024 7:07 PM [facility] Emergency Department 1 [place] [address] Left before treatment completed (Primary Dx); Leg swelling Discharge Disposition: Left Against Medical Advice 09/17/2024 11:38 AM EXPORT SPECIALIST - 09/17/2024 1:19 PM [facility] Emergency Department [address] [place] [address] Chronic venous insufficiency (Primary Dx); Bilateral lower extremity edema Discharge Disposition: Discharge to home or self care 09/14/2024 Telephone [facility] [place] [address] [place] [phone] Lexi Garcia, RESIDENT CARE PROVIDER Med Refill 09/14/2024 12:10 AM EXPORT SPECIALIST - 09/14/2024 1:49 AM [facility] Emergency Department [address] [place] [address] Brice Sepulveda MD Bilateral lower extremity edema (Primary Dx) Discharge Disposition: Discharge to home or self care 09/13/2024 9:20 PM EXPORT SPECIALIST - 09/13/2024 9:46 PM [facility] Emergency Department 2 [place] [phone] Michael Schrader MD Weakness (Primary Dx) Discharge Disposition: Discharge to home or self care 09/13/2024 2:46 AM EXPORT SPECIALIST - 09/13/2024 5:31 AM [facility] Emergency Department [address] [place] [phone] Katharine Polanco MD Chronic venous insufficiency (Primary Dx); Lower extremity edema Discharge Disposition: Discharge to home or self care 09/12/2024 9:22 PM EXPORT SPECIALIST - 09/12/2024 10:59 PM [facility] Emergency Department [address] [address] [address] Leg swelling (Primary Dx); Venous insufficiency; Venous stasis dermatitis Discharge Disposition: Discharge to home or self care 09/11/2024 10:35 PM EXPORT SPECIALIST - 09/12/2024 3:44 AM [facility] Emergency Department [address] [place] [phone] Salena Crawley MD Lower extremity edema (Primary Dx); Cellulitis of left lower extremity Discharge Disposition: Discharge to home or self care 09/11/2024 7:00 PM EXPORT SPECIALIST Office Visit [facility] [address] [phone] Truman Gabriel, DO Symptom of leg swelling (Primary Dx) 09/10/2024 5:00 PM EXPORT SPECIALIST Office Visit [facility] [address] [phone] Jess Hobson NP Cellulitis of left lower extremity (Primary Dx); Left leg swelling 09/07/2024 10:55 AM EXPORT SPECIALIST - 09/07/2024 10:56 AM [facility] Emergency [facility] Emergency Department [address] [place] [address] Venous stasis dermatitis of both lower extremities (Primary Dx) Discharge Disposition: Discharge to home or self care 09/05/2024 8:08 PM EXPORT SPECIALIST - 09/05/2024 10:28 PM [facility] Emergency [facility] Emergency Department [address] [place] [phone] Other chronic pain (Primary Dx); Bilateral lower extremity edema Discharge Disposition: Discharge to home or self care 09/05/2024 2:02 AM EXPORT SPECIALIST - 09/05/2024 3:14 AM [facility] Emergency [facility] Emergency Department [address] [place] [address] Marek Nelson MD PhD Chronic pain of left lower extremity (Primary Dx) Discharge Disposition: Discharge to home or self care 09/03/2024 7:07 PM EXPORT SPECIALIST - 09/03/2024 11:06 PM [facility] Emergency [facility] Emergency Department [address] [place] [phone] Cellulitis of left lower extremity (Primary Dx) Discharge Disposition: Discharge to home or self care 09/02/2024 8:24 AM EXPORT SPECIALIST - 09/02/2024 11:59 PM [facility] Hospital Encounter [facility] [place] [address] Discharge Disposition: Discharge to home or self care 09/02/2024 3:25 AM EXPORT SPECIALIST - 09/02/2024 3:41 AM [facility] Emergency [facility] Emergency Department [address] [place] [phone] Rachele Guerra MD Sprain of right ankle, unspecified ligament, initial encounter (Primary Dx) Discharge Disposition: Discharge to home or self care 09/01/2024 8:06 AM [facility] - 09/01/2024 9:39 AM [facility] Emergency [facility] Emergency Department [address] [place] [phone] Jair Armendariz MD Sprain of right ankle, unspecified ligament, initial encounter (Primary Dx) Discharge Disposition: Discharge to home or self care 08/23/2024 9:27 PM [facility] - 08/23/2024 10:03 PM [facility] Emergency Department [address] [place] [phone] Leg swelling (Primary Dx); Cellulitis of left lower extremity Discharge Disposition: Discharge to home or self care 08/23/2024 1:41 AM [facility] - 08/23/2024 9:16 AM [facility] Emergency [facility] Emergency Department [address] [place] [phone] Salena Crawley MD Li, Alex, MD Schneider, Krishan Ugalde MD Leg swelling (Primary Dx); Cellulitis of left lower extremity; Failure of outpatient treatment Discharge Disposition: Discharge to home or self care 08/20/2024 11:11 PM [facility] - 08/21/2024 1:30 AM [facility] Emergency [facility] Emergency Department [address] [place] [phone] Dependent edema (Primary Dx) Discharge Disposition: Discharge to home or self care 08/20/2024 9:06 AM [facility] - 08/20/2024 11:08 AM [facility] Emergency [facility] Emergency Department [address] [place] [address] Fei Murray MD Upper respiratory tract infection, unspecified type (Primary Dx); Peripheral edema Discharge Disposition: Discharge to home or self care 08/20/2024 2:24 AM EXPORT SPECIALIST - 08/20/2024 4:35 AM [facility] Emergency [facility] Emergency Department [address] [place] [address] Discharge Disposition: Left without being seen 08/18/2024 5:58 AM EXPORT SPECIALIST - 08/18/2024 7:26 AM EXPORT SPECIALIST Emergency [facility] Emergency Department [address] [place] [phone] Lorenzo Peña MD Peripheral edema (Primary Dx) Discharge Disposition: Discharge to home or self care 08/17/2024 3:00 PM EXPORT SPECIALIST Diagnostic [facility] Orthopaedic Surgery [address] [facility] [address] [place] [address] [place] [phone] Luciano Nelson MD Encounter for examination of normal volunteer in research study 08/15/2024 12:23 AM EXPORT SPECIALIST - 08/15/2024 1:52 AM [facility] Emergency [facility] Emergency Department [address] [place] [address] [place] (Primary Dx); Swelling Discharge Disposition: Discharge to home or self care 08/12/2024 8:23 PM EXPORT SPECIALIST - 08/14/2024 1:56 PM EXPORT SPECIALIST Hospital Encounter [facility] [address] [place] [phone] Batsheva Portillo MD Li, MD Lucille Garcia, MD Russ COVID-19 (Primary Dx); Recurrent syncope; Chest pain, unspecified type; Anemia, unspecified type; Elevated AST (SGOT); Elevated ALT measurement; Nonintractable headache, unspecified chronicity pattern, unspecified headache type Discharge Disposition: Discharge to home or self care 08/11/2024 3:49 AM EXPORT SPECIALIST - 08/11/2024 4:35 AM [facility] Emergency [facility] Emergency Department [address] [place] [phone] Abdiel Hawkins MD Coronavirus infection (Primary Dx); Lightheadedness Discharge Disposition: Discharge to home or self care 08/08/2024 9:58 PM EXPORT SPECIALIST - 08/08/2024 11:12 PM [facility] Emergency Department [address] [place] [phone] Karlo Gatica MD COVID (Primary Dx); Dehydration; Syncope, unspecified syncope type Discharge Disposition: Discharge to home or self care 08/07/2024 [facility] Eligibility Review [facility] Community Health Worker [facility] [address] [place] [address] Darlene Zurita [place] 08/06/2024 9:50 AM EXPORT SPECIALIST - 08/06/2024 12:23 PM [facility] Emergency Department [address] [place] [phone] Jassi Daniels MD Coronavirus infection (Primary Dx) Discharge Disposition: Discharge to home or self care 08/02/2024 12:46 PM EXPORT SPECIALIST - 08/02/2024 1:16 PM [facility] Emergency Department [address] [place] [phone] Gee Moran MD Chronic right shoulder pain (Primary Dx) Discharge Disposition: Discharge to home or self care 08/01/2024 2:00 AM EXPORT SPECIALIST - 08/01/2024 3:17 AM [facility] Emergency [facility] Emergency Department [address] [place] [phone] Chronic right shoulder pain (Primary Dx); Encounter for medication refill Discharge Disposition: Discharge to home or self care 07/29/2024 9:38 PM EXPORT SPECIALIST - 07/29/2024 11:38 PM [facility] Emergency Department [address] [place] [phone] Cindy Hendricks MD Injury of right rotator cuff, subsequent encounter (Primary Dx) Discharge Disposition: Discharge to home or self care 07/24/2024 [facility] [address] [facility] [address] [place] [phone] Cherie Ramirez [facility] Social Work Services 07/24/2024 1:00 PM EXPORT SPECIALIST [facility] [address] [facility] 4th [address] [place] [phone] Right anterior shoulder pain (Primary Dx) 07/19/2024 Documentation [facility] [address] [facility] [address] [place] [phone] Cherie Ramirez, [facility] Social Work Services 06/26/2024 Orders Only [facility] Orthopaedic Surgery [facility] 6th [place] [address] [place] [phone] Michael Corona MD Encounter for examination of [...] a day for 7 days 21 capsule 02/05/ 025 Discontinued(Th erapy completed) cephalexin (KEFLEX) 500 mg capsuleIndica tions:Celluli tis of left lower extremity Take 2 capsules (1,000 mg total) by mouth 2 (two) times a day for 10 days 40 capsule 09/10/19 025 Additional Information Patient not taking.Reported on 09/11/2024 furosemide (LASIX) 40 mg tablet Take 1 tablet (40 mg total) by mouth daily for 5 days 5 tablet 09/11/19 25 025 Discontinued( erapy completed) furosemide (LASIX) 20 mg tablet Take 2 tablets (40 mg total) by mouth daily for 5 days 10 tablet 09/19/19 025 Discontinued Active Problems Patient Care Coordination [...] PT? 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 Assessment & Plan (08/09/2019 7:07 PM EXPORT SPECIALIST): Patient presents with complaints of ongoing abdominal [...] 07/29/2019 Assessment & Plan (08/10/2019 10:48 AM EXPORT SPECIALIST): Ongoing nausea post cholecystectomy w/o vomiting. Tolerating PO, no emesis overnight - prn zofran - ADAT Assessment & Plan (08/09/2019 7:17 PM EXPORT SPECIALIST): Ongoing nausea post cholecystectomy w/o vomiting. - prn zofran - ADAT Calculus of gallbladder 07/29/2019 Dizziness 07/29/2019 Assessment & Plan (08/10/2019 10:59 AM EXPORT SPECIALIST): Patient describes dizziness related to uncontrolled abdominal pain. He endorses pain starts in RQ and moves to head . He then becomes diaphoretic, nauseous. Improved this AM. Likely vasovagal, hemodynamically stable. - discussed proper hydration and symptom management Assessment & Plan (08/09/2019 7:16 PM EXPORT SPECIALIST): Patient describes dizziness related to uncontrolled abdominal pain. He endorses pain starts in RQ and moves to head . He then becomes diaphoretic, nauseous. - likely vasovagal, s/p 1 L LR in ED. CTM Intractable right upper quadrant abdominal pain 07/29/2019 Overview (08/01/2019): Added automatically from request for surgery [id number] Adjustment disorder with depressed mood in remis [...] drink = 0.6 oz pur e alcohol) [facility] Utilities Answer Date Recorded In the past 12 months has e electric, gas, oil, or water [employer] threatened to shut off services in your home? Patient declined 08/14/2024 Social Connection and Isolation Panel [NHANES] A nswer Date Recorded In a typical week, how many times do you talk on the phone with family, friends, or neighbors? Patient declined 08/14/2024 How often do you get togethe r with friends or relatives? Patient declined 08/14/2024 How often do you attend catholic or gnosticism serv ices? Patient declined 08/14/2024 Do you belong to any clubs o r organizations such as catholic groups, unions, fraternal or athletic groups, [...] on file Legal Sex Male 9:25 PM EXPORT SPECIALIST Gender Identity Not on file Sexual Orientation Straight 11/18/2022 7: 07 PM CDT Last Filed Vital Signs Vital Sign Reading Time Taken Comments Blood Pressure 109/61 09/20/2024 3:48 PM EXPORT SPECIALIST Pulse 86 09/20/2024 3:48 PM EXPORT SPECIALIST Temperature 37 C (98.6 F) 09/20/2024 3:48 PM EXPORT SPECIALIST Respiratory Rate 18 09/20/2024 3:48 PM EXPORT SPECIALIST Oxygen Saturation 99% 09/20/2024 3:48 PM EXPORT SPECIALIST Inhaled Oxygen Concentration - - Weight 74.8 kg (165 lb) 09/20/2024 3:48 PM EXPORT SPECIALIST Height 172.7 cm (5' 8 ) 09/20/2024 1:22 AM EXPORT SPECIALIST Body Mass Index 25.09 09/20/2024 1:22 AM EXPORT SPECIALIST Plan of Treatment Not on file Procedures Procedure Name Priority Date/Time Associated Diagnosis Comments INFLUENZA A/B, RSV, AND COVID-19 PCR STAT 09/20/2024 1:25 AM EXPORT SPECIALIST PRO B-TYPE NATRIURETIC PEPTIDE Add-On 09/18/2024 1:35 PM EXPORT SPECIALIST EGFR STAT 09/18/2024 1:35 PM EXPORT SPECIALIST DIFFERENTIAL AUTO STAT 09/18/2024 1:3 5 PM EXPORT SPECIALIST COMPREHENSIVE METABOLIC PANEL STAT 09/18/2024 1:35 PM EXPORT SPECIALIST CBC WITH AUTO DIFFERENTIAL STAT 09/18/2024 1:35 PM EXPORT SPECIALIST EGFR STAT 09/11/2024 9:10 PM EXPORT SPECIALIST DIFFERENTIAL AUTO STAT 09/11/2024 9:1 0 PM EXPORT SPECIALIST PRO B-TYPE NATRIURETIC PEPTIDE STAT 09/11/2024 9:10 PM EXPORT SPECIALIST COMPREHENSIVE METABOLIC PANEL STAT 09/11/2024 9:10 PM EXPORT SPECIALIST CBC WITH AUTO DIFFERENTIAL STAT 09/11/2024 9:10 PM EXPORT SPECIALIST EGFR STAT 09/07/2024 2:59 AM EXPORT SPECIALIST DIFFERENTIAL AUTO STAT 09/07/2024 2:5 9 AM EXPORT SPECIALIST BASIC METABOLIC PANEL STAT 09/07/2024 2:59 AM EXPORT SPECIALIST CBC WITH AUTO DIFFERENTIAL STAT 09/07/2024 2:59 AM EXPORT SPECIALIST US VEIN DUPLEX LOWER EXTREMITY BILATERAL COMPLETE ED 09/03/2024 7:37 PM EXPORT SPECIALIST MRI SHOULDER RIGHT WO CONTRAST Schedule Routine, Read Routine (OP Routine) 09/02/2024 9:06 AM EXPORT SPECIALIST Right anterior shoulder pain XR ANKLE RIGHT 2 VIEWS ED 09/01/2024 9:33 PM EXPORT SPECIALIST XR TIBIA FIBULA RIGHT2 VIEWS ED 09/01/2024 8:37 AM EXPORT SPECIALIST XR ANKLE RIGHT 3 OR MORE VIEWS ED 08/31/2024 10:35 PM EXPORT SPECIALIST XR FOOT RIGHT 3 OR MORE VIEWS ED 08/31/2024 10:34 PM EXPORT SPECIALIST EGFR STAT 08/23/2024 2:33 AM EXPORT SPECIALIST DIFFERENTIAL AUTO STAT 08/23/2024 2:3 3 AM EXPORT SPECIALIST PRO B-TYPE NATRIURETIC PEPTIDE STAT 08/23/2024 2:33 AM EXPORT SPECIALIST COMPREHENSIVE METABOLIC PANEL STAT 08/23/2024 2:33 AM EXPORT SPECIALIST CBC WITH AUTO DIFFERENTIAL STAT 08/23/2024 2:33 AM EXPORT SPECIALIST SEPSIS LACTATE WITH REFLEX Routine 08/23/2024 2:33 AM EXPORT SPECIALIST BLOOD CULTURE Routine 08/23/2024 2:33 AM EXPORT SPECIALIST BLOOD CULTURE Routine 08/23/2024 2:33 AM EXPORT SPECIALIST ECG 12-LEAD STAT 08/23/2024 2:32 AM EXPORT SPECIALIST EGFR STAT 08/21/2024 12:35 AM EXPORT SPECIALIST DIFFERENTIAL AUTO STAT 08/21/2024 12: 35 AM EXPORT SPECIALIST CRP (ACUTE PHASE) STAT 08/21/2024 12: 35 AM EXPORT SPECIALIST ERYTHROCYTE SEDIMENTATION RATE STAT 08/21/2024 12:35 AM EXPORT SPECIALIST BASIC METABOLIC PANEL STAT 08/21/2024 12:35 AM EXPORT SPECIALIST CBC WITH AUTO DIFFERENTIAL STAT 08/21/2024 12:35 AM EXPORT SPECIALIST STREPTOCOCCUS GROUP A PCR STAT 08/20/2024 9:19 AM EXPORT SPECIALIST RESPIRATORY PATHOGEN PANEL Routine 08/20/2024 9:19 AM EXPORT SPECIALIST D-DIMER, QUANTITATIVE STAT 08/15/2024 1:08 AM EXPORT SPECIALIST PRO B-TYPE NATRIURETIC PEPTIDE STAT 08/14/2024 9:59 PM EXPORT SPECIALIST EGFR STAT 08/14/2024 9:59 PM EXPORT SPECIALIST DIFFERENTIAL AUTO STAT 08/14/2024 9:5 9 PM EXPORT SPECIALIST LIPASE STAT 08/14/2024 9:59 PM EXPORT SPECIALIST COMPREHENSIVE METABOLIC PANEL STAT 08/14/2024 9:59 PM EXPORT SPECIALIST CBC WITH AUTO DIFFERENTIAL STAT 08/14/2024 9:59 PM EXPORT SPECIALIST TRANSTHORACIC ECHO (TTE) COMPLETE W DOPPLER/CF WO CONTRAST Routine 08/14/2024 11:39 AM EXPORT SPECIALIST HEPATIC FUNCTION PANEL Routine 08/13/2024 5:30 AM EXPORT SPECIALIST EGFR Routine 08/13/2024 5:30 AM EXPORT SPECIALIST CBC WITHOUT DIFFERENTIAL Routine 08/13/2024 5:30 AM EXPORT SPECIALIST PHOSPHORUS Routine 08/13/2024 5:30 AM EXPORT SPECIALIST MAGNESIUM Routine 08/13/2024 5:30 AM EXPORT SPECIALIST BASIC METABOLIC PANEL Routine 08/13/2024 5:30 AM EXPORT SPECIALIST FERRITIN Routine 08/13/2024 5:30 AM EXPORT SPECIALIST DRUGS OF ABUSE SCREEN, URINE WITH REFLEX CONFIRMATION Routine 08/13/2024 12:15 AM EXPORT SPECIALIST URINALYSIS AND REFLEX TO MICROSCOPIC AND CULTURE STAT 08/13/2024 12:[address] CHEST PE W CONTRAST ED 08/12/2024 11:48 PM EXPORT SPECIALIST US VEIN DUPLEX LOWER EXTREMITY BILATERAL COMPLETE ED 08/12/2024 11:46 PM EXPORT SPECIALIST US RUQ ED 08/12/2024 11:38 PM EXPORT SPECIALIST ADD ON LAB TEST Add-On 08/12/2024 10:[address] HEAD AND CERVICAL SPINE WO CONTRAST ED 08/12/2024 10:20 PM EXPORT SPECIALIST D-DIMER, QUANTITATIVE STAT 08/12/2024 10:05 PM EXPORT SPECIALIST PROTIME-INR STAT 08/12/2024 10:05 PM EXPORT SPECIALIST ADD ON LAB TEST Add-On 08/12/2024 9:53 PM EXPORT SPECIALIST ADD ON LAB TEST Add-On 08/12/2024 9:53 PM EXPORT SPECIALIST ADD ON LAB TEST Add-On 08/12/2024 9:53 PM EXPORT SPECIALIST ADD ON LAB TEST Add-On 08/12/2024 9:53 PM EXPORT SPECIALIST ADD ON LAB TEST Add-On 08/12/2024 9:53 PM EXPORT SPECIALIST ADD ON LAB TEST Add-On 08/12/2024 9:53 PM EXPORT SPECIALIST ADD ON LAB TEST Add-On 08/12/2024 9:53 PM EXPORT SPECIALIST ETHANOL STAT 08/12/2024 9:52 PM EXPORT SPECIALIST TROPONIN T HIGH-SENSITIVITY 2-HOUR Timed 08/12/2024 9:52 PM EXPORT SPECIALIST ACETAMINOPHEN LEVEL STAT 08/12/2024 9 :13 PM EXPORT SPECIALIST HEPATITIS PANEL, ACUTE STAT 08/12/2024 9:13 PM EXPORT SPECIALIST PRO B-TYPE NATRIURETIC PEPTIDE STAT 08/12/2024 8:08 PM EXPORT SPECIALIST THYROID FUNCTION CASCADE STAT 08/12/2024 8:08 PM EXPORT SPECIALIST FOLATE STAT 08/12/2024 8:08 PM EXPORT SPECIALIST IRON PROFILE W/ IBC STAT 08/12/2024 8 :08 PM EXPORT SPECIALIST VITAMIN B12 STAT 08/12/2024 8:08 PM EXPORT SPECIALIST MAGNESIUM STAT 08/12/2024 8:08 PM EXPORT SPECIALIST PHOSPHORUS STAT 08/12/2024 8:08 PM EXPORT SPECIALIST EGFR STAT 08/12/2024 8:08 PM EXPORT SPECIALIST DIFFERENTIAL AUTO STAT 08/12/2024 8:0 8 PM EXPORT SPECIALIST TROPONIN T HIGH-SENSITIVITY SERIES (BASELINE, 2HR, 4HR, 6HR) STAT 08/12/2024 8:08 PM EXPORT SPECIALIST COMPREHENSIVE METABOLIC PANEL STAT 08/12/2024 8:08 PM EXPORT SPECIALIST CBC WITH AUTO DIFFERENTIAL STAT 08/12/2024 8:08 PM EXPORT SPECIALIST XR CHEST PA LATERAL 2 VIEWS ED 08/12/2024 7:27 PM EXPORT SPECIALIST ECG 12-LEAD STAT 08/12/2024 6:48 PM EXPORT SPECIALIST XR CHEST PA LATERAL 2 VIEWS ED 08/11/2024 2:02 AM EXPORT SPECIALIST ECG 12-LEAD STAT 08/11/2024 1:43 AM EXPORT SPECIALIST XR CHEST PA LATERAL 2 VIEWS ED 08/08/2024 10:[address] HEAD WO CONTRAST ED 08/08/2024 1 0:34 PM EXPORT SPECIALIST ECG 12-LEAD STAT 08/08/2024 8:56 PM EXPORT SPECIALIST RESPIRATORY PATHOGEN PANEL Routine 08/06/2024 9:59 AM EXPORT SPECIALIST from Last 3 Months Results * Influenza A/B, RSV, and COVID-19 PCR Nasopharyngeal (09/20/2024 1:25 AM EXPORT SPECIALIST) COVID-19 RNA Negative Negative Influenza A RNA Negative Negative [facility] ([place]) Influenza B RNA [facility] Negative [facility] ([place]) RSV RNA Negative Negative [facility] ([place]) Comment: Interpretive data: Testing performed by [facility]. This test is performed using the [employer] Xpert Xpress CoV-2/Flu/RSV plus assay. This is a multiplex, real- time reverse transcriptase PCR assay intended for the qualitative detection of nucleic acid from SARS-CoV-2, influenza A, influenza B, and respiratory syncytial virus. This assay has been cleared by the [place] Food and Drug administration. The performance characteristics have been verified by the [facility]. Results must be considered in the clinical context, and a negative result does not rule out infection. Interpretive Data last revised 2023 Nasopharyngeal 09/20/2024 1: 25 AM EXPORT SPECIALIST 09/20/2024 1:29 AM EXPORT SPECIALIST Narrative [facility] ([place]) - 09/20/2024 2:07 AM EXPORT SPECIALIST Is the Patient experiencing symptoms consistent with COVID?->Yes us Cesar Chiang MD LAB MICROBIOLOGY - GENERAL ORD ERABLES Final Result [facility] ([place]) 1 [facility] Department [place] [address] * eGFR (09/18/2024 1:35 PM EXPORT SPECIALIST) eGFR >90 >=60 mL/min/1. 73 m2 Comment: [...] last reviewed 2021. Blood 09/18/2024 1:35 PM EXPORT SPECIALIST 09/18/2024 1:38 PM EXPORT SPECIALIST us Megan Dill MD LAB BLOOD ORDERABLE S Final Result [facility] ([place]) 1 [facility] Department of Laboratories [place], [place] [address] * Differential, auto (09/18/2024 1:35 PM EXPORT SPECIALIST) Neutrophil abs 4.8 1.5 - 6.5 K/cumm [...] Neutrophil pct 72.6 % [facility] ([place]) Comment: Interpretive [...] revised on 2017. Blood 09/18/2024 1:35 PM EXPORT SPECIALIST 09/18/2024 1:38 PM EXPORT SPECIALIST us Megan Dill MD LAB BLOOD ORDERABLE S Final Result JADA PALMIRA ([place]) 1 [facility] Department [place] [address] * Pro B-type natriuretic peptide (09/18/2024 1:35 PM EXPORT SPECIALIST) NT-proBNP <36 <=300 pg/mL Comment: Interpretive Comments: [...] Revised Date: 2018. Blood 09/18/2024 1:35 PM EXPORT SPECIALIST 09/18/2024 6:28 PM EXPORT SPECIALIST us Jossue Cox RESIDENT CARE PROVIDER LAB BLOOD ORDERABLES Final Result [facility] ([place]) 1 [facility] Department of Laboratories [place], [place] [id number] * CBC with auto differential (09/18/2024 1:35 PM EXPORT SPECIALIST) WBC 6.6 3.8 - 9.9 K/cumm Hgb 13.3 13.0 - 17.5 g/dL [facility] ([place]) Hct 40.3 38.9 - 50.3 % [facility] ([place]) Plt 210 150 - 400 K/cumm [facility] ([place]) MPV 10.1 9.1 - 12.3 fL [facility] ([place]) RBC 4.49 4.30 - 5.80 M/cumm [facility] ([place]) MCV 89.8 81.3 - 96.4 fL [facility] ([place]) MCH 29.6 27.1 - 33.3 pg [facility] ([place]) MCHC 33.0 32.3 - 35.7 g/dL [facility] ([place]) RDW CV 12.2 11.1 - 14.9 % [facility] ([place]) RDW SD 40.1 35.7 - 48.1 fL [facility] ([place]) NRBC abs 0.00 0.00 - 0.01 K/cumm [facility] ([place]) Blood 09/18/2024 1:35 PM EXPORT SPECIALIST 09/18/2024 1:38 PM EXPORT SPECIALIST us Megan Dill MD LAB BLOOD ORDERABLE S Final Result [facility] ([place]) 1 [facility] [place] [address] * Comprehensive metabolic panel (09/18/2024 1:35 PM EXPORT SPECIALIST) Sodium 140 135 - 145 mmol/L Potassium, pl 4.3 3.3 - 4.9 mmol/L [facility] ([place]) Chloride 100 97 - 110 mmol/L [facility] ([place]) CO2 29 22 - 32 mmol/L [facility] ([place]) Anion gap 10 2 - 15 mmol/L [facility] ([place]) BUN 21 6 - 25 mg/dL [facility] ([place]ENN[place]ER) Creatinine 1.02 0.80 - 1.30 mg/dL [facility] ([place]) Glucose 72 70 - 199 mg/dL [facility] ([place]) Comment: Interpretive Data Fasting glucose [...] Hemolyzed S pecimen Blood 09/18/2024 1:35 PM EXPORT SPECIALIST 09/18/2024 1:38 PM EXPORT SPECIALIST us Megan Dill MD LAB BLOOD ORDERABLE S Final Result [facility] ([place]) 1 [facility] Department [place] [address] * eGFR (09/11/2024 9:10 PM EXPORT SPECIALIST) eGFR >90 >=60 mL/min/1. 73 m2 Comment: [...] last reviewed 2021. Blood 09/11/2024 9:10 PM EXPORT SPECIALIST 09/11/2024 9:30 PM EXPORT SPECIALIST us Salena Crawley MD LAB BLOOD ORDERABLES Fin al Result [facility] [address] Department [place] [address] * Differential, auto (09/11/2024 9:10 PM EXPORT SPECIALIST) Neutrophil abs 3.8 1.5 - 6.5 K/cumm Imm gran abs 0.0 0.0 - 0.1 K/cumm [facility] Lymphocyte abs 1.1 0.8 - 3.3 K/cumm [facility] Monocyte abs 0.5 0.2 - 0.8 K/cumm [facility] Eosinophil abs 0.2 0.0 - 0.5 K/cumm [facility] Basophil abs 0.0 0.0 - 0.1 K/cumm [facility] Neutrophil pct 67.2 % [facility] Comment: Interpretive Data Percent cell count reference ranges are not reported, since discordance with absolute values may lead to misinterpretation of CBC data. Current Interpretive Data was last revised on 2017. Imm gran pct 0.4 % [facility] Comment: Interpretive Data Percent cell count reference ranges are not reported, since discordance with absolute values may lead to misinterpretation of CBC data. Current Interpretive Data was last revised on 2017. Lymphocyte pct 20.1 % [facility] Comment: Interpretive Data Percent cell count reference ranges are not reported, since discordance with absolute values may lead to misinterpretation of CBC data. Current Interpretive Data was last revised on 2017. Monocyte pct 8.6 % [facility] Comment: Interpretive Data Percent cell count reference ranges are not reported, since discordance with absolute values may lead to misinterpretation of CBC data. Current Interpretive Data was last revised on 2017. Eosinophil pct 3.2 % [facility] Comment: Interpretive Data Percent cell count reference ranges are not reported, since discordance with absolute values may lead to misinterpretation of CBC data. Current Interpretive Data was last revised on 2017. Basophil pct 0.5 % [facility] Comment: Interpretive Data Percent cell count reference ranges are not reported, since discordance with absolute values may lead to misinterpretation of CBC data. Current Interpretive Data was last revised on 2017. Blood 09/11/2024 9:10 PM EXPORT SPECIALIST 09/11/2024 9:30 PM EXPORT SPECIALIST us Salena Crawley MD LAB BLOOD ORDERABLES Fin al Result JADA [facility] [address] Department [place] [address] * Pro B-type natriuretic peptide (09/11/2024 9:10 PM EXPORT SPECIALIST) NT-proBNP <36 <=300 pg/mL Comment: Interpretive Comments: [...] Revised Date: 2018. Blood 09/11/2024 9:10 PM EXPORT SPECIALIST 09/11/2024 9:30 PM EXPORT SPECIALIST Salena Crawley MD LAB BLOOD ORDERABLES Fin al Result Performing Organization Address City/[facility]/ZIP Co de Phone Number [facility] [address] [employer] [place], [place] [phone] * CBC with auto differential (09/11/2024 9:10 PM EXPORT SPECIALIST) WBC 5.7 3.8 - 9.9 K/cumm Hgb 13.1 13.0 - 17.5 g/dL [facility] Hct 40.0 38.9 - 50.3 % [facility] Plt 184 150 - 400 K/cumm [facility] MPV 10.6 9.1 - 12.3 fL [facility] RBC 4.43 4.30 - 5.80 M/cumm [facility] MCV 90.3 81.3 - 96.4 fL [facility] MCH 29.6 27.1 - 33.3 pg [facility] MCHC 32.8 32.3 - 35.7 g/dL [facility] RDW CV 12.7 11.1 - 14.9 % [facility] RDW SD 41.7 35.7 - 48.1 fL [facility] NRBC abs 0.00 0.00 - 0.01 K/cumm [facility] Blood 09/11/2024 9:10 PM EXPORT SPECIALIST 09/11/2024 9:30 PM EXPORT SPECIALIST Salena Crawley MD LAB BLOOD ORDERABLES Fin al Result Performing Organization Address City/[facility]/ZIP Co de Phone Number [facility] [address] Department [employer] [place], [place] [id number] * (ABNORMAL) Comprehensive metabolic panel (09/11/2024 9:10 PM EXPORT SPECIALIST) Pathologist [facility] Sodium 142 135 - 145 mmol/L Potassium, pl 4.3 3.3 - 4.9 mmol/L [facility] Chloride 101 97 - 110 mmol/L [facility] CO2 28 22 - 32 mmol/L [facility] Anion gap 13 2 - 15 mmol/L [facility] BUN 28(H) 6 - 25 mg/dL [facility] Creatinine 0.89 0.80 - 1.30 mg/dL [facility] Glucose 113 70 - 199 mg/dL [facility] Comment: Interpretive Data Fasting glucose >/= 126 [...] 2022. Calcium 9.2 8.5 - 10.3 mg/dL [facility] Bilirubin, total 0.8 0.1 - 1.2 mg/dL [facility] Protein, pl 6.7 6.5 - 8.5 g/dL [facility] Albumin 4.0 3.5 - 5.0 g/dL [facility] Alk phos 79 40 - 130 Units/L [facility] ALT 62(H) 7 - 55 Units/L [facility] AST 40 10 - 50 Units/L [facility] Comment:Slightly Hemolyzed S pecimen Blood 09/11/2024 9:10 PM EXPORT SPECIALIST 09/11/2024 9:30 PM EXPORT SPECIALIST us Salena Crawley MD LAB BLOOD ORDERABLES Fin al Result [facility] [address] Department [place] [address] * eGFR (09/07/2024 2:59 AM EXPORT SPECIALIST) eGFR >90 >=60 mL/min/1. 73 m2 Comment: [...] last reviewed 2021. Blood 09/07/2024 2:59 AM EXPORT SPECIALIST 09/07/2024 3:02 AM EXPORT SPECIALIST us Jair Armendariz MD LAB BLOOD ORDERABLES Final Result [facility] [address] [facility] Department [place] [address] * Differential, auto (09/07/2024 2:59 AM EXPORT SPECIALIST) Neutrophil abs 3.0 1.5 - 6.5 K/cumm Imm gran abs 0.0 0.0 - 0.1 K/cumm [facility] Lymphocyte abs 2.1 0.8 - 3.3 K/cumm [facility] Monocyte abs 0.4 0.2 - 0.8 K/cumm [facility] Eosinophil abs 0.2 0.0 - 0.5 K/cumm [facility] Basophil abs 0.0 0.0 - 0.1 K/cumm [facility] Neutrophil pct 51.2 % [facility] Comment: Interpretive Data Percent cell count reference ranges are not reported, since discordance with absolute values may lead to misinterpretation of CBC data. Current Interpretive Data was last revised on 2017. Imm gran pct 0.3 % [facility] Comment: Interpretive Data Percent cell count reference ranges are not reported, since discordance with absolute values may lead to misinterpretation of CBC data. Current Interpretive Data was last revised on 2017. Lymphocyte pct 36.9 % [facility] Comment: Interpretive Data Percent cell count reference ranges are not reported, since discordance with absolute values may lead to misinterpretation of CBC data. Current Interpretive Data was last revised on 2017. Monocyte pct 6.9 % [facility] Comment: Interpretive Data Percent cell count reference ranges are not reported, since discordance with absolute values may lead to misinterpretation of CBC data. Current Interpretive Data was last revised on 2017. Eosinophil pct 4.0 % [facility] Comment: Interpretive Data Percent cell count reference ranges are not reported, since discordance with absolute values may lead to misinterpretation of CBC data. Current Interpretive Data was last revised on 2017. Basophil pct 0.7 % [facility] Comment: Interpretive Data Percent cell count reference ranges are not reported, since discordance with absolute values may lead to misinterpretation of CBC data. Current Interpretive Data was last revised on 2017. Blood 09/07/2024 2:59 AM EXPORT SPECIALIST 09/07/2024 3:02 AM EXPORT SPECIALIST us Jair Armendariz MD LAB BLOOD ORDERABLES Final Result [facility] [address] [facility] Department [place] [address] * (ABNORMAL) CBC with auto differential (09/07/2024 2:59 AM EXPORT SPECIALIST) WBC 5.8 3.8 - 9.9 K/cumm Hgb 12.3(L) 13.0 - 17.5 g/dL [facility] Hct 37.2(L) 38.9 - 50.3 % [facility] Plt 163 150 - 400 K/cumm [facility] MPV 10.4 9.1 - 12.3 fL [facility] RBC 4.17(L) 4.30 - 5.80 M/cumm [facility] MCV 89.2 81.3 - 96.4 fL [facility] MCH 29.5 27.1 - 33.3 pg [facility] MCHC 33.1 32.3 - 35.7 g/dL [facility] RDW CV 12.6 11.1 - 14.9 % [facility] RDW SD 41.1 35.7 - 48.1 fL [facility] NRBC abs 0.00 0.00 - 0.01 K/cumm [facility] Blood 09/07/2024 2:59 AM EXPORT SPECIALIST 09/07/2024 3:02 AM EXPORT SPECIALIST Jair Armendariz MD LAB BLOOD ORDERABLES Final Result [facility] [address] [facility] Department [place] [address] * Basic metabolic panel (09/07/2024 2:59 AM EXPORT SPECIALIST) Sodium 143 135 - 145 mmol/L Potassium, pl 4.4 3.3 - 4.9 mmol/L [facility] Chloride 109 97 - 110 mmol/L [facility] CO2 25 22 - 32 mmol/L [facility] Anion gap 9 2 - 15 mmol/L [facility] BUN 24 6 - 25 mg/dL [facility] Creatinine 0.87 0.80 - 1.30 mg/dL [facility] Glucose 86 70 - 199 mg/dL [facility] Comment: Interpretive Data Fasting glucose >/= [...] 2022. Calcium 9.1 8.5 - 10.3 mg/dL [facility] Blood 09/07/2024 2:59 AM EXPORT SPECIALIST 09/07/2024 3:02 AM EXPORT SPECIALIST Jair Armendariz MD LAB BLOOD ORDERABLES Final Result [facility] [address] [facility] Department [place] [address] * US Vein Duplex Lower Extremity Bilateral Complete (09/03/2024 7:37 PM EXPORT SPECIALIST) Anatomical Region Laterality Modality Vascular Bilateral Ultrasound 09/04/2024 2:26 PM EXPORT SPECIALIST Impressions 09/04/2024 2:26 PM EXPORT SPECIALIST 1. No evidence of DVT in the lower extremities bilaterally. 2. Evidence of pulsatile venous flow. This may suggest increased intravascular volume or right-sided valvular heart disease. Clinical correlation suggested. 3. No change when compared to previous studies. Electronically signed by: Lv Smart M.D. Narrative 09/04/2024 2:26 PM EXPORT SPECIALIST Lower Extremity Vein Duplex Bilateral DATE: 09/03/2024 [...] studies. Electronically signed by: Lv Smart M.D. [facility] Samantha Stanley MD IM US PROCEDURES Final Re sult * MRI Shoulder Right WO Contrast (09/02/2024 9:06 AM EXPORT SPECIALIST) Anatomical Region Laterality Modality Upper Extremities Right Magnetic Reson ance 09/02/2024 11:0 8 AM EXPORT SPECIALIST Impressions 09/02/2024 12:42 PM EXPORT SPECIALIST 1. Minimal right rotator cuff tendinopathy without [...] Gudelia Berger MD Narrative 09/02/2024 12:42 PM EXPORT SPECIALIST EXAMINATION: 1. MRI right shoulder without contrast [...] Ankle Right 2 Views (09/01/2024 9:33 PM EXPORT SPECIALIST) Anatomical Region Laterality Modality Lower Extremities, Ankle Right Compute d Radiography 09/02/2024 8:13 AM EXPORT SPECIALIST Impressions 09/02/2024 8:13 AM EXPORT SPECIALIST There is mild swelling about the right ankle. There is a fracture of the base of 5th metacarpal, similar to prior. No additional fractures. The joints are normal. Electronically signed by: Brice Mantilla M.D. Narrative 09/02/2024 8:13 AM EXPORT SPECIALIST EXAMINATION: XR ANKLE RIGHT 2 VIEWS HISTORY: [...] Fibula Right 2 views (09/01/2024 8:37 AM EXPORT SPECIALIST) Anatomical Region Laterality Modality Lower Extremities, Lower Leg Right Com puted Radiography 09/01/2024 8:45 AM EXPORT SPECIALIST Impressions 09/01/2024 8:45 AM EXPORT SPECIALIST No acute fracture of the tibia or fibula. Alignment is normal. Electronically signed by: Greg Joy M.D. Narrative 09/01/2024 8:45 AM EXPORT SPECIALIST EXAMINATION: XR TIBIA FIBULA RIGHT2 VIEWS HISTORY: [...] 3 or More Views (08/31/2024 10:35 PM EXPORT SPECIALIST) Anatomical Region Laterality Modality Lower Extremities, Ankle Right Compute d Radiography 09/01/2024 11:1 6 AM EXPORT SPECIALIST Impressions 09/01/2024 11:16 AM EXPORT SPECIALIST Comparison is made to a prior study [...] Ness Liz M.D. Narrative 09/01/2024 11:16 AM EXPORT SPECIALIST EXAMINATION: XR ANKLE RIGHT 3 OR MORE [...] 3 or More Views (08/31/2024 10:34 PM EXPORT SPECIALIST) Anatomical Region Laterality Modality Lower Extremities, Foot Right Computed Radiography 09/01/2024 11:1 6 AM EXPORT SPECIALIST Impressions 09/01/2024 11:16 AM EXPORT SPECIALIST Comparison is made to a prior study [...] Ness Liz M.D. Narrative 09/01/2024 11:16 AM EXPORT SPECIALIST EXAMINATION: XR ANKLE RIGHT 3 OR MORE [...] insertion. Electronically signed by: Ness Liz M.D. Melissa Reddy MD IMG XR PROCEDURES Final Re sult * Sepsis Lactate w/ Reflex (08/23/2024 2:33 AM EXPORT SPECIALIST) Sepsis Lactate 0.7 0.7 - 2.0 mmol/L Blood 08/23/2024 2:33 AM EXPORT SPECIALIST 08/23/2024 2:46 AM EXPORT SPECIALIST Salena Crawley MD LAB BLOOD ORDERABLES Fin al Result Performing Organization Address [facility] de Phone Number JADA [facility] [address] Department [place] [address] * eGFR (08/23/2024 2:33 AM EXPORT SPECIALIST) eGFR >90 >=60 mL/min/1. 73 m2 Comment: [...] data was last reviewed 2021. Blood 08/23/2024 2:3 3 AM EXPORT SPECIALIST 08/23/2024 3:24 AM EXPORT SPECIALIST Salena Crawley MD LAB BLOOD ORDERABLES Fin al Result Performing Organization Address City/[facility] Co de Phone Number [facility] [address] Department [place] [address] * Differential, auto (08/23/2024 2:33 AM EXPORT SPECIALIST) Neutrophil abs 3.1 1.5 - 6.5 K/cumm Imm gran abs 0.0 0.0 - 0.1 K/cumm [facility] Lymphocyte abs 2.0 0.8 - 3.3 K/cumm [facility] Monocyte abs 0.5 0.2 - 0.8 K/cumm [facility] Eosinophil abs 0.2 0.0 - 0.5 K/cumm [facility] Basophil abs 0.1 0.0 - 0.1 K/cumm [facility] Neutrophil pct 53.2 % [facility] Comment: Interpretive Data Percent cell count reference ranges are not reported, since discordance with absolute values may lead to misinterpretation of CBC data. Current Interpretive Data was last revised on 2017. Imm gran pct 0.2 % [facility] Comment: Interpretive Data Percent cell count reference ranges are not reported, since discordance with absolute values may lead to misinterpretation of CBC data. Current Interpretive Data was last revised on 2017. Lymphocyte pct 34.0 % [facility] Comment: Interpretive Data Percent cell count reference ranges are not reported, since discordance with absolute values may lead to misinterpretation of CBC data. Current Interpretive Data was last revised on 2017. Monocyte pct 7.8 % [facility] Comment: Interpretive Data Percent cell count reference ranges are not reported, since discordance with absolute values may lead to misinterpretation of CBC data. Current Interpretive Data was last revised on 2017. Eosinophil pct 3.8 % [facility] Comment: Interpretive Data Percent cell count reference ranges are not reported, since discordance with absolute values may lead to misinterpretation of CBC data. Current Interpretive Data was last revised on 2017. Basophil pct 1.0 % [facility] Comment: Interpretive Data Percent cell count reference ranges are not reported, since discordance with absolute values may lead to misinterpretation of CBC data. Current Interpretive Data was last revised on 2017. Blood 08/23/2024 2:33 AM EXPORT SPECIALIST 08/23/2024 3:24 AM EXPORT SPECIALIST Salena Crawley MD LAB BLOOD ORDERABLES Fin al Result JADA [facility] [address] Department [place] [address] * Pro B-type natriuretic peptide (08/23/2024 2:33 AM EXPORT SPECIALIST) NT-proBNP <36 <=300 pg/mL Comment: Interpretive Comments: [...] Data Last Revised Date: 2018. Blood 08/23/2024 2:3 3 AM EXPORT SPECIALIST 08/23/2024 3:24 AM EXPORT SPECIALIST us Salena Crawley MD LAB BLOOD ORDERABLES Fin al Result Performing Organization Address [facility] Co de Phone Number [facility] [address] [place] [address] * (ABNORMAL) CBC with auto differential (08/23/2024 2:33 AM EXPORT SPECIALIST) WBC 5.8 3.8 - 9.9 K/cumm Hgb 12.9(L) 13.0 - 17.5 g/dL [facility] Hct 39.2 38.9 - 50.3 % [facility] Plt 205 150 - 400 K/cumm [facility] MPV 10.8 9.1 - 12.3 fL [facility] RBC 4.39 4.30 - 5.80 M/cumm [facility] MCV 89.3 81.3 - 96.4 fL [facility] MCH 29.4 27.1 - 33.3 pg [facility] MCHC 32.9 32.3 - 35.7 g/dL [facility] RDW CV 12.8 11.1 - 14.9 % [facility] RDW SD 41.8 35.7 - 48.1 fL [facility] NRBC abs 0.00 0.00 - 0.01 K/cumm [facility] Blood 08/23/2024 2:33 AM EXPORT SPECIALIST 08/23/2024 3:24 AM EXPORT SPECIALIST Salena Crawley MD LAB BLOOD ORDERABLES Fin al Result Performing Organization Address [facility]/ZIP Co de Phone Number [facility] [address] Department of [employer] [place], [place] [id number] * Blood culture Blood (08/23/2024 2:33 AM EXPORT SPECIALIST) Report Final Report: No growth Blood 08/23/2024 2:33 AM EXPORT SPECIALIST 08/23/2024 2:47 AM EXPORT SPECIALIST Narrative [facility] - 08/28/2024 7:01 AM EXPORT SPECIALIST From a different site than #1. Collection->Peripheral [...] organism identification may be performed using the [employer] Blood Culture Identification panel. This assay detects microbial DNA in a blood culture broth. This assay has been cleared by the [facility] Food and Drug Administration and its performance characteristics have been verified by the [facility]. Interpretive data was last revised on September 03, 2022. Salena Crawley MD LAB MICROBIOLOGY - GENER AL ORDERABLES Final Result Performing Organization Address City/[facility]/ZIP Co de Phone Number [facility] [address] [place] [address] * Blood culture Blood (08/23/2024 2:33 AM EXPORT SPECIALIST) Report Final Report: No growth Blood 08/23/2024 2:33 AM EXPORT SPECIALIST 08/23/2024 2:48 AM EXPORT SPECIALIST Narrative [facility] - 08/28/2024 7:01 AM EXPORT SPECIALIST Collection->Peripheral Interpretive Data 1. Blood cultures are incubated and monitored continuously for 5 days (120 hours). The first negative report is issued within 24 hours of receipt in the laboratory. 2. All positive cultures are resulted and called to physicians/care providers as soon as they are detected. 3. A rapid molecular test for organism identification may be performed using the [employer] Blood Culture Identification panel. This assay detects microbial DNA in a blood culture broth. This assay has been cleared by the [employer] Food and Drug Administration and its performance characteristics have been verified by the [facility]. Interpretive data was last revised on September 03, 2022. Salena Crawley MD LAB MICROBIOLOGY - GENER AL ORDERABLES Final Result Performing Organization Address City/[facility]/ZIP Co de Phone Number [facility] [address] [place] [address] * (ABNORMAL) Comprehensive metabolic panel (08/23/2024 2:33 AM EXPORT SPECIALIST) Sodium 140 135 - 145 mmol/L Potassium, pl 3.9 3.3 - 4.9 mmol/L [facility] Chloride 104 97 - 110 mmol/L [facility] CO2 25 22 - 32 mmol/L [facility] Anion gap 11 2 - 15 mmol/L [facility] BUN 24 6 - 25 mg/dL [facility] Creatinine 0.82 0.80 - 1.30 mg/dL [facility] Glucose 83 70 - 199 mg/dL [facility] Comment: Interpretive Data Fasting glucose >/= 126 [...] 2022. Calcium 9.3 8.5 - 10.3 mg/dL [facility] Bilirubin, total 0.6 0.1 - 1.2 mg/dL [facility] Protein, pl 6.9 6.5 - 8.5 g/dL [facility] Albumin 4.0 3.5 - 5.0 g/dL [facility] Alk phos 70 40 - 130 Units/L [facility] ALT 65(H) 7 - 55 Units/L [facility] AST 30 10 - 50 Units/L [facility] Comment:Slightly Hemolyzed S pecimen Blood 08/23/2024 2:33 AM EXPORT SPECIALIST 08/23/2024 3:24 AM EXPORT SPECIALIST us Salena Crawley MD LAB BLOOD ORDERABLES Fin al Result [facility] [address] Department [place] [address] * ECG 12 lead (08/23/2024 2:32 AM EXPORT SPECIALIST) 08/23/2024 2:32 AM EXPORT SPECIALIST Narrative [facility] - 08/24/2024 4:38 PM EXPORT SPECIALIST Vent Rate: 64 bpm RR Interval: 935 msec [place] Interval: 174 msec QRS Duration: 109 msec QT Interval: 409 msec QTC Interval: 418 msec P-R-T [place]: 68 - 81 - 41 degrees IMPRESSION: SINUS RHYTHM NORMAL ECG Electronically Signed By: Andrea Moralez MD [facility] us Salena Crawley MD ECG ORDERABLES Final Re sult [facility] [employer] [facility] * eGFR (08/21/2024 12:35 AM EXPORT SPECIALIST) eGFR >90 >=60 mL/min/1. 73 m2 Comment: [...] reviewed 2021. Blood 08/21/2024 12:3 5 AM EXPORT SPECIALIST 08/21/2024 12:40 AM EXPORT SPECIALIST us Magalis MARQUES LAB BLOOD ORDERABLE S Final Result [facility] [address] [facility] Department [place] [address] * Differential, auto (08/21/2024 12:35 AM EXPORT SPECIALIST) Neutrophil abs 3.7 1.5 - 6.5 K/cumm Imm gran abs 0.0 0.0 - 0.1 K/cumm [facility] Lymphocyte abs 2.2 0.8 - 3.3 K/cumm [facility] Monocyte abs 0.6 0.2 - 0.8 K/cumm [facility] Eosinophil abs 0.3 0.0 - 0.5 K/cumm [facility] Basophil abs 0.1 0.0 - 0.1 K/cumm [facility] Neutrophil pct 54.1 % [facility] Comment: Interpretive Data Percent cell count reference ranges are not reported, since discordance with absolute values may lead to misinterpretation of CBC data. Current Interpretive Data was last revised on 2017. Imm gran pct 0.1 % [facility] Comment: Interpretive Data Percent cell count reference ranges are not reported, since discordance with absolute values may lead to misinterpretation of CBC data. Current Interpretive Data was last revised on 2017. Lymphocyte pct 32.5 % [facility] Comment: Interpretive Data Percent cell count reference ranges are not reported, since discordance with absolute values may lead to misinterpretation of CBC data. Current Interpretive Data was last revised on 2017. Monocyte pct 8.3 % [facility] Comment: Interpretive Data Percent cell count reference ranges are not reported, since discordance with absolute values may lead to misinterpretation of CBC data. Current Interpretive Data was last revised on 2017. Eosinophil pct 4.3 % [facility] Comment: Interpretive Data Percent cell count reference [...] on 2017. Blood 08/21/2024 12:3 5 AM EXPORT SPECIALIST 08/21/2024 12:40 AM EXPORT SPECIALIST Magalis MARQUES LAB BLOOD ORDERABLE S Final Result Performing Organization Address City/[facility]/ZIP Co de Phone Number JADA HANSON[address] [place] [address] * (ABNORMAL) CBC with auto differential (08/21/2024 12:35 AM EXPORT SPECIALIST) WBC 6.9 3.8 - 9.9 K/cumm Hgb 12.1(L) 13.0 - 17.5 g/dL [facility] Hct 36.8(L) 38.9 - 50.3 % [facility] Plt 200 150 - 400 K/cumm [facility] MPV 10.1 9.1 - 12.3 fL [facility] RBC 4.14(L) 4.30 - 5.80 M/cumm [facility] MCV 88.9 81.3 - 96.4 fL [facility] MCH 29.2 27.1 - 33.3 pg [facility] MCHC 32.9 32.3 - 35.7 g/dL [facility] RDW CV 12.8 11.1 - 14.9 % [facility] RDW SD 41.5 35.7 - 48.1 fL [facility] NRBC abs 0.00 0.00 - 0.01 K/cumm [facility] Blood 08/21/2024 12:3 5 AM EXPORT SPECIALIST 08/21/2024 12:40 AM EXPORT SPECIALIST Magalis MARQUES LAB BLOOD ORDERABLE S Final Result [facility] [address] [place] [address] * Erythrocyte sedimentation rate (08/21/2024 12:35 AM EXPORT SPECIALIST) Erythrocyte sedimentation rate 5 1 - 15 mm/hr [facility] Blood 08/21/2024 12:3 5 AM EXPORT SPECIALIST 08/21/2024 12:40 AM EXPORT SPECIALIST Magalis Alcantar Willy CT LAB BLOOD ORDERABLE S Final Result Performing Organization Address City/[facility]/ZIP Co de Phone Number JAMES[address] [place] [address] * CRP (acute phase) (08/21/2024 12:35 AM EXPORT SPECIALIST) Pathologist [facility] CRP <3.5 <=10.0 mg/L Blood 08/21/2024 12:3 5 AM EXPORT SPECIALIST 08/21/2024 12:40 AM EXPORT SPECIALIST Magalis Aguilera CT LAB BLOOD ORDERABLE S Final Result Performing Organization Address [facility] Co de Phone Number [address] [place] [address] * (ABNORMAL) Basic metabolic panel (08/21/2024 12:35 AM EXPORT SPECIALIST) Sodium 140 135 - 145 mmol/L Potassium, pl 4.2 3.3 - 4.9 mmol/L [facility] Chloride 104 97 - 110 mmol/L [facility] CO2 26 22 - 32 mmol/L [facility] Anion gap 10 2 - 15 mmol/L [facility] BUN 34(H) 6 - 25 mg/dL [facility] Creatinine 0.91 0.80 - 1.30 mg/dL [facility] Glucose 96 70 - 199 mg/dL [facility] Comment: Interpretive Data Fasting glucose >/= [...] classification and Diagnosis of Diabetes Diabetes Care 2022; 46: S19-S40. Current interpretive data was last revised 2022. Calcium 9.1 8.5 - 10.3 mg/dL [facility] Blood 08/21/2024 12:3 5 AM EXPORT SPECIALIST 08/21/2024 12:40 AM EXPORT SPECIALIST Magalis MARQUES LAB BLOOD ORDERABLE S Final Result [facility] [address] Department [place] [address] * Streptococcus Group A PCR Throat (08/20/2024 9:19 AM EXPORT SPECIALIST) Pathologist [facility] Strep A DNA Not Detected Not Detected Comment: This test is performed using the [employer] Xpert Group A Streptococcal Assay. This is [...] the performing laboratory. Throat 08/20/2024 9:19 AM EXPORT SPECIALIST 08/20/2024 9:22 AM EXPORT SPECIALIST Fei Murray MD LAB MICROBIOLOGY - GENERAL ORDERABLES Final Result Performing Organization Address City/[facility]/ZIP Co de Phone Number [facility] [address] Department [place] [address] [place] * Respiratory pathogen panel Nasopharyngeal (08/20/2024 9:19 AM EXPORT SPECIALIST) [facility] Influenza A RNA Not Detected Not Detected Influenza B RNA Not Detected Not Detected [facility] RSV RNA Not Detected Not Detected [facility] COVID-19 RNA Not Detected Not Detected [facility] Coronavirus 229E RNA Not Detected Not Detected [facility] Coronavirus HKU1 RNA Not Detected Not Detected [facility] Coronavirus NL63 RNA Not Detected Not Detected [facility] Coronavirus OC43 RNA Not Detected Not Detected [facility] Adenovirus DNA Not Detected Not Detected [facility] Met[facility]neumovirus RNA Not Detected Not Detected [facility] Rhinovirus/Enterov irus RNA Not Detected Not Detected [facility] Parainfluenza 1 RNA Not Detected Not Detected [facility] Parainfluenza 2 RNA Not Detected Not Detected [facility] Parainfluenza 3 RNA Not Detected Not Detected [facility] Parainfluenza 4 RNA Not Detected Not Detected [facility] B. pertussis DNA Not Detected Not Detected [facility] B. parapertussis DNA Not Detected Not Detected [facility] C. pneumoniae DNA Not Detected Not Detected [facility] M. pneumoniae DNA Not Detected Not Detected [facility] Comment: Interpretive Data The [employer] FilmArray Respiratory Panel (RP2.1) assay is a [...] assay has FDA clearance for testing of RESIDENT CARE PROVIDER swabs. The performance characteristics of this assay have been determined by [facility]. Current interpretive data was last revised on 2021. Nasopharyngeal 08/20/2024 9: 19 AM EXPORT SPECIALIST 08/20/2024 9:22 AM EXPORT SPECIALIST Bernadette ELIAS - 08/20/2024 10:22 AM EXPORT SPECIALIST Is the Patient experiencing symptoms consistent with COVID?->Yes Surveillance testing for transplant patient?->No Fei Murray MD LAB MICROBIOLOGY - GENERAL ORDERABLES Final Result [facility] [address] Department [place] [address] * (ABNORMAL) D-dimer, quantitative (08/15/2024 1:08 AM EXPORT SPECIALIST) D-Dimer 647(H) <=499 ng/mL FEU Comment: Interpretive [...] revised on 2019. Blood 08/15/2024 1:08 AM EXPORT SPECIALIST 08/15/2024 1:11 AM EXPORT SPECIALIST Maddison Muhammad NP LAB BLOOD ORDERABLES Final Resul t Performing Organization Address [facility] Co de Phone Number JADA GOODE [address] [facility] [place] [address] * eGFR (08/14/2024 9:59 PM EXPORT SPECIALIST) eGFR >90 >=60 mL/min/1. 73 m2 Comment: [...] last reviewed 2021. Blood 08/14/2024 9:59 PM EXPORT SPECIALIST 08/14/2024 10:10 PM EXPORT SPECIALIST Abigail Richards MD LAB BLOOD ORDERABLES Final Result Performing Organization Address City/[facility]/ZIP Co de Phone Number [facility] [address] [place] [place] [address] * Differential, auto (08/14/2024 9:59 PM EXPORT SPECIALIST) Neutrophil abs 3.7 1.5 - 6.5 K/cumm Imm gran abs 0.0 0.0 - 0.1 K/cumm [facility] Lymphocyte abs 2.0 0.8 - 3.3 K/cumm [facility] Monocyte abs 0.5 0.2 - 0.8 K/cumm [facility] Eosinophil abs 0.2 0.0 - 0.5 K/cumm [facility] Basophil abs 0.1 0.0 - 0.1 K/cumm [facility] Neutrophil pct 57.5 % [facility] Comment: Interpretive Data Percent cell count reference ranges are not reported, since discordance with absolute values may lead to misinterpretation of CBC data. Current Interpretive Data was last revised on 2017. Imm gran pct 0.2 % [facility] Comment: Interpretive Data Percent cell count reference ranges are not reported, since discordance with absolute values may lead to misinterpretation of CBC data. Current Interpretive Data was last revised on 2017. Lymphocyte pct 30.2 % [facility] Comment: Interpretive Data Percent cell count reference ranges are not reported, since discordance with absolute values may lead to misinterpretation of CBC data. Current Interpretive Data was last revised on 2017. Monocyte pct 7.6 % [facility] Comment: Interpretive Data Percent cell count reference ranges are not reported, since discordance with absolute values may lead to misinterpretation of CBC data. Current Interpretive Data was last revised on 2017. Eosinophil pct 3.4 % [facility] Comment: Interpretive Data Percent cell count reference ranges are not reported, since discordance with absolute values may lead to misinterpretation of CBC data. Current Interpretive Data was last revised on 2017. Basophil pct 1.1 % [facility] Comment: Interpretive Data Percent cell count reference ranges are not reported, since discordance with absolute values may lead to misinterpretation of CBC data. Current Interpretive Data was last revised on 2017. Blood 08/14/2024 9:59 PM EXPORT SPECIALIST 08/14/2024 10:10 PM EXPORT SPECIALIST us Abigail Richards MD LAB BLOOD ORDERABLES Final Result [facility] [address] [facility]. Department of [employer] [place], [place] [id number] * Pro B-type natriuretic peptide (08/14/2024 9:59 PM EXPORT SPECIALIST) NT-proBNP 75 <=300 pg/mL Comment: Interpretive Comments: [...] as advanced age. - References: 1. Adi JL et.al. Eur Heart J. 2006:27:330-337. 2. Xiomara RW, Caryn MORAN. J. AM Emerson Cardiol: Cardiovasc Imag. 2009;2: 216- 225. Interpretive Data Last Revised Date: 2018. Blood 08/14/2024 9:59 PM EXPORT SPECIALIST 08/14/2024 10:10 PM EXPORT SPECIALIST us Abigail Richards MD LAB BLOOD ORDERABLES Final Result JADA [facility] [address] [facility]. [place] [address] * CBC with auto differential (08/14/2024 9:59 PM EXPORT SPECIALIST) WBC 6.5 3.8 - 9.9 K/cumm Hgb 13.3 13.0 - 17.5 g/dL [facility] Hct 39.8 38.9 - 50.3 % [facility] Plt 218 150 - 400 K/cumm [facility] MPV 10.0 9.1 - 12.3 fL [facility] RBC 4.49 4.30 - 5.80 M/cumm [facility] MCV 88.6 81.3 - 96.4 fL [facility] MCH 29.6 27.1 - 33.3 pg [facility] MCHC 33.4 32.3 - 35.7 g/dL [facility] RDW CV 12.7 11.1 - 14.9 % [facility] RDW SD 41.1 35.7 - 48.1 fL [facility] NRBC abs 0.00 0.00 - 0.01 K/cumm [facility] Blood (Blood, Venous) 08/14/2024 9:59 PM EXPORT SPECIALIST 08/14/2024 10:10 PM EXPORT SPECIALIST Abigail Richards MD LAB BLOOD ORDERABLES Final Result Performing Organization Address [facility] de Phone Number [facility] [address] [place] [address] * Lipase (08/14/2024 9:59 PM EXPORT SPECIALIST) Pathologist [facility] Lipase 50 10 - 99 Units/L Blood (Blood, Venous) 08/14/2024 9:59 PM EXPORT SPECIALIST 08/14/2024 10:10 PM EXPORT SPECIALIST Abigail Richards MD LAB BLOOD ORDERABLES Final Result Performing Organization Address [facility] de Phone Number [facility] [address] [facility] [address] [facility] [employer] [place], [place] [id number] * (ABNORMAL) Comprehensive metabolic panel (08/14/2024 9:59 PM EXPORT SPECIALIST) Pathologist [facility] Sodium 139 135 - 145 mmol/L Potassium, [...] Units/L [facility] Blood 08/14/2024 9:59 PM EXPORT SPECIALIST 08/14/2024 10:10 PM EXPORT SPECIALIST us Abigail Richards MD LAB BLOOD ORDERABLES Final Result JADA GOODE [address] [facility]. Department [place] [address] * TRANSTHORACIC ECHO (TTE) COMPLETE W DOPPLER/CF WO CONTRAST (08/14/2024 11:39 AM EXPORT SPECIALIST) LV EF 55-60 % CONS SCIMAGE Anatomical Region Laterality Modality Ultrasound 08/14/2024 10:0 7 AM EXPORT SPECIALIST Narrative 08/14/2024 11:49 AM EXPORT SPECIALIST 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 Location: [address] Order Provider: PHOEBE ADKINS BMI: 26.31 [...] Jerel Ramirez MD PhD 08/14/2024 11:48:00 AM EXPORT SPECIALIST Procedure Note Jerel Ramirez MD PhD - 08/14/2024 [id number] [place] [address] ECHOCARDIOGRAM Patient Name: LISA AZAR : 1980 (43y 11m) Gender: M Study Date: 08/14/2024 10:07:30 AM Ht(Inch): 68 Wt(Lb): 173.06 BSA: 1.94 [employer] Controller: NINFA Location: [address] Order Provider: PHOEBE ADKINS BMI: 26.31 [...] Jerel Ramirez MD PhD 08/14/2024 11:48:00 AM EXPORT SPECIALIST us Phoebe Adkins MD CV ECHO PROCEDURES Final Result * eGFR (08/13/2024 5:30 AM EXPORT SPECIALIST) eGFR >90 >=60 mL/min/1. 73 m2 Comment: [...] last reviewed 2021. Blood 08/13/2024 5:30 AM EXPORT SPECIALIST 08/13/2024 6:25 AM EXPORT SPECIALIST us Phoebe Adkins MD LAB BLOOD ORDERABLES Final Resul t [facility] [address] Department [place] [address] * (ABNORMAL) CBC without differential (08/13/2024 5:30 AM EXPORT SPECIALIST) WBC 5.7 3.8 - 9.9 K/cumm Hgb 11.9(L) 13.0 - 17.5 g/dL [facility] Hct 36.4(L) 38.9 - 50.3 % [facility] Plt 186 150 - 400 K/cumm [facility] MPV 10.6 9.1 - 12.3 fL [facility] RBC 4.01(L) 4.30 - 5.80 M/cumm [facility] MCV 90.8 81.3 - 96.4 fL [facility] MCH 29.7 27.1 - 33.3 pg [facility] MCHC 32.7 32.3 - 35.7 g/dL [facility] RDW CV 13.0 11.1 - 14.9 % [facility] RDW SD 43.0 35.7 - 48.1 fL [facility] NRBC abs 0.00 0.00 - 0.01 K/cumm [facility] Blood 08/13/2024 5:30 AM EXPORT SPECIALIST 08/13/2024 6:25 AM EXPORT SPECIALIST us Phoebe Adkins MD LAB BLOOD ORDERABLES Final Resul t Performing Organization Address City/[facility] Co de Phone Number [facility] [address] [facility] [place] [address] * Phosphorus (08/13/2024 5:30 AM EXPORT SPECIALIST) Phosphorus, pl 2.9 2.3 - 4.5 mg/dL Blood 08/13/2024 5:30 AM EXPORT SPECIALIST 08/13/2024 6:25 AM EXPORT SPECIALIST us Phoebe Adkins MD LAB BLOOD ORDERABLES Final Resul t Performing Organization Address [facility] Co de Phone Number [facility] [address] [facility] [place] [address] * Magnesium (08/13/2024 5:30 AM EXPORT SPECIALIST) Magnesium 1.9 1.4 - 2.5 mg/dL Blood 08/13/2024 5:30 AM EXPORT SPECIALIST 08/13/2024 6:25 AM EXPORT SPECIALIST us Phoebe Adkins MD LAB BLOOD ORDERABLES Final Resul t Performing Organization Address City/[facility] Co de Phone Number [facility] [address] [facility] [place] [address] * Ferritin (08/13/2024 5:30 AM EXPORT SPECIALIST) Ferritin 39 30 - 400 ng/mL Blood 08/13/2024 5:30 AM EXPORT SPECIALIST 08/13/2024 6:24 AM EXPORT SPECIALIST us Phoebe Adkins MD LAB BLOOD ORDERABLES Final Resul t Performing Organization Address City/[facility] Co de Phone Number [facility] [address] Department [place] [address] * (ABNORMAL) Hepatic function panel (08/13/2024 5:30 AM EXPORT SPECIALIST) [facility] Bilirubin, total 0.4 0.1 - 1.2 mg/dL Bilirubin, direct <0.2 0.1 - 0.3 mg/dL [facility] Protein, pl 5.9(L) 6.5 - 8.5 g/dL [facility] Albumin 3.5 3.5 - 5.0 g/dL [facility] Alk phos 71 40 - 130 Units/L [facility] ALT 200(H) 7 - 55 Units/L [facility] AST 101(H) 10 - 50 Units/L [facility] Blood 08/13/2024 5:30 AM EXPORT SPECIALIST 08/13/2024 6:25 AM EXPORT SPECIALIST Russ Adkins MD LAB BLOOD ORDERABLES Final Resul t [facility] [address] Department [place] [address] * (ABNORMAL) Basic metabolic panel (08/13/2024 5:30 AM EXPORT SPECIALIST) [facility] Sodium 140 135 - 145 mmol/L Potassium, pl 4.1 3.3 - 4.9 mmol/L [facility] Chloride 106 97 - 110 mmol/L [facility] CO2 24 22 - 32 mmol/L [facility] Anion gap 10 2 - 15 mmol/L [facility] BUN 23 6 - 25 mg/dL [facility] Creatinine 0.82 0.80 - 1.30 mg/dL [facility] Glucose 87 70 - 199 mg/dL [facility] Comment: Interpretive Data Fasting glucose >/= 126 [...] 2022. Calcium 8.1(L) 8.5 - 10.3 mg/dL [facility] Blood 08/13/2024 5:30 AM EXPORT SPECIALIST 08/13/2024 6:25 AM EXPORT SPECIALIST us Phoebe Adkins MD LAB BLOOD ORDERABLES Final Resul t [facility] [address] Department [place] [address] * Drugs of Abuse Screen, Urine with Reflex Confirmation (08/13/2024 12:15 AM EXPORT SPECIALIST) Amphetamine, ur Not Detected CutOff 500ng/mL Comment: Interpretive Data - Amphetamines: Samples containing greater than 500 ng/mL d-methamphetamine or other cross-reacting amphetamine compounds are reported as positive. Amphetamine immunoassays are subject to significant false positive rates due to cross-reactivity of non-amphetamine drugs. Confirmatory testing required for definitive results. Current Interpretive Data was last reviewed 2023. Barbiturates, ur Not Detected CutOff 200ng/mL [facility] Comment: Interpretive Data - Barbiturates: Samples containing greater than 200 ng/mL secobarbital or other cross-reacting barbiturate compounds are reported as positive. False positive and false negative results are possible. Confirmatory testing required for definitive results. Current Interpretive Data was last reviewed 2023. Benzodiazepines, ur Not Detected CutOff 100ng/mL [facility] Comment: Interpretive Data - Benzodiazepines: Samples containing greater than 100 ng/mL nordiazepam or other cross-reacting compounds are reported as positive. False positive and false negative results are possible. Confirmatory testing required for definitive results. Current Interpretive Data was last reviewed 2023. Cannabinoids, ur Not Detected CutOff 50 ng/mL [facility] Comment: Interpretive Data - Cannabinoids: Samples containing greater than 50 ng/mL delta-9 THC -COOH or other cross- reacting compounds are reported as positive. False positive and false negative results are possible. Confirmatory testing required for definitive results. Current Interpretive Data was last reviewed 2023. Cocaine, ur Not Detected CutOff 150ng/mL [facility] Comment: Interpretive Data - Cocaine: Samples containing greater than 150 ng/mL benzoylecgonine or other cross- reacting compounds are reported as positive. False positive and false negative results are possible. Confirmatory testing required for definitive results. Current Interpretive Data was last reviewed 2023. Fentanyl, Ur Not Detected CutOff 5 ng/mL [facility] Comment: Interpretive Data - Fentanyl: Samples containing greater than 5 ng/mL norfentanyl, fentanyl, or other cross-reacting fentanyl compounds are reported as positive. False positive and false negative results are possible. Confirmatory testing required for definitive results. Current Interpretive Data was last reviewed 2023. Methadone, ur Not Detected CutOff 300ng/mL [facility] Comment: Interpretive Data - Methadone: Samples containing greater than 300 ng/mL d,l-methadone or other cross-reacting compounds are reported as positive. False positive and false negative results are possible. Confirmatory testing required for definitive results. Current Interpretive Data was last reviewed 2023. Opiates, ur Not Detected CutOff 300ng/mL [facility] Comment: Interpretive Data - Opiates: Samples containing greater than 300 ng/mL morphine or other cross-reacting compounds are reported as positive. False positive and false negative results are possible. Confirmatory testing required for definitive results. Current Interpretive Data was last reviewed 2023. Oxycodone, ur Not Detected CutOff 100ng/mL [facility] Comment: Interpretive Data - Oxycodone: Samples containing greater than 100 ng/mL oxycodone or other cross-reacting compounds are reported as positive. False positive and false negative results are possible. Confirmatory testing required for definitive results. Current Interpretive Data was last reviewed 2023. Phencyclidine, ur Not Detected CutOff 25 ng/mL [facility] Comment: Interpretive Data - Phencyclidine: Samples containing greater than 25 ng/mL phencyclidine or other cross-reacting compounds are reported as positive. False positive and false negative results are possible. Confirmatory testing required for definitive results. Current Interpretive Data was last reviewed 2023. Urine Creatinine 90 mg/dL [facility] Comment: Interpretive Data Urine Creatinine: < 10 mg/dL is extremely dilute = or > 10 but < 20 mg/dL is dilute = or > 20 mg/dL is normal Current Interpretive Data was last revised on 2017. Urine 08/13/2024 12:1 5 AM EXPORT SPECIALIST 08/13/2024 12:26 AM EXPORT SPECIALIST Narrative [facility] - 08/13/2024 12:54 AM EXPORT SPECIALIST Drug of Abuse screening is performed by immunoassay for medical purposes only. This is not to be used for Pain Management purposes. If Detected, confirmation testing will be performed for Amphetamines, Cocaine, Fentanyl, Methadone, Opiates, Oxycodone or Phencyclidine. us Batsheva Portillo MD LAB URINE ORDERABLES Final Result [facility] [address] Department [place] [address] * (ABNORMAL) Urinalysis reflex to microscopic and culture Urine (08/13/2024 12:15 AM EXPORT SPECIALIST) Color, ur Yellow Yellow Clarity, ur Clear Clear [facility] Specific gravity, ur >1.050(H) 1.003 - 1.030 [facility] pH, urine 6.5 [facility] Comment: Interpretive Data U rine pH is affected by diet, medications, systemic acid-base disturbances, and renal tubular function. pH may affect urinary stone formation. For example, urine pH below 6.0 may help reduce the tendency for calcium phosphate stones and pH greater than 6.0 may reduce the tendency for uric acid stone formation. Source: [facility] Current Interpretive Data was last revised on 2017 Protein, ur ql Negative Negative [facility] Glucose, ur ql Negative Negative [facility] Ketones, ur Negative Negative [facility] Bilirubin, ur Negative Negative [facility] Blood, ur Negative Negative [facility] Urobilinogen, ur <2.0 <2.0 mg/dL [facility] Nitrite, ur Negative Negative [facility] Leukocyte esterase, ur Negative Negative [facility] UA reflex comment Reflex conditions for microscopic UA and culture not met. [facility] Urine 08/13/2024 12:1 5 AM EXPORT SPECIALIST 08/13/2024 12:15 AM EXPORT SPECIALIST us Batsheva Portillo MD LAB MICROBIOLOGY - GENERAL ORDERABLES Final Result [facility] [address] Department [place] [address] * CT Chest PE (CTA) W Contrast (08/12/2024 11:48 PM EXPORT SPECIALIST) Anatomical Region Laterality Modality Body N/A Computed Tomogra phy 08/12/2024 11:4 3 PM EXPORT SPECIALIST Impressions 08/13/2024 9:24 AM EXPORT SPECIALIST No pulmonary embolism. Electronically signed by: Tari Gavin M.D. Narrative 08/13/2024 9:24 AM EXPORT SPECIALIST EXAMINATION: CT CHEST PE (CTA) W CONTRAST [...] Tari Gavin M.D. us Batsheva Portillo MD IM CT PROCEDURES Final Res ult * US Vein Duplex Lower Extremity Bilateral Complete (08/12/2024 11:46 PM EXPORT SPECIALIST) Anatomical Region Laterality Modality Vascular Bilateral Ultrasound 08/13/2024 12:0 9 PM EXPORT SPECIALIST Impressions 08/13/2024 12:09 PM EXPORT SPECIALIST 1. No evidence of DVT in the lower extremities bilaterally. 2. Pulsatile venous flow bilaterally. This may suggest increased intravascular volume or right-sided valvular heart disease. Clinical correlation suggested. 3. Prominent lymph nodes in both groins. Electronically signed by: Lv Smart M.D. Narrative 08/13/2024 12:09 PM EXPORT SPECIALIST Lower Extremity Vein Duplex Bilateral DATE: 08/12/2024 [...] ult * US RUQ (08/12/2024 11:38 PM EXPORT SPECIALIST) Anatomical Region Laterality Modality Abdomen N/A Ultrasound 08/12/2024 10:4 5 PM EXPORT SPECIALIST Impressions 08/13/2024 11:42 AM EXPORT SPECIALIST 1. Trace perihepatic ascites. 2. Pulsatile portal venous flow and dilated inferior vena cava, which may represent elevated right heart pressures and/or tricuspid regurgitation. For the purposes of quality control associate, this study was initially interpreted by teleradiology. There is no significant discrepancy. Electronically signed by: Saeid Baker MD, PHD Narrative 08/13/2024 11:42 AM EXPORT SPECIALIST EXAMINATION: LIMITED ABDOMINAL SONOGRAM HISTORY: Elevated liver [...] regurgitation. For the purposes of quality control associate, this study was initially interpreted by teleradiology. There is no significant discrepancy. Electronically signed by: Saeid Baker MD, PHD us Batsheva Portillo MD [facility] PROCEDURES Final Res ult * D-Dimer - Add on lab test (08/12/2024 10:29 PM EXPORT SPECIALIST) Acceptable Yes Blood 08/12/2024 10:2 9 PM EXPORT SPECIALIST 08/12/2024 10:29 PM EXPORT SPECIALIST Narrative [facility] - 08/12/2024 10:29 PM EXPORT SPECIALIST Name of Test->D-Dimer us Batsheva Portillo MD LAB BLOOD ORDERABLES Final Result [facility] [address] Department [place] [address] * CT Head and Cervical Spine WO Contrast (08/12/2024 10:20 PM EXPORT SPECIALIST) Anatomical Region Laterality Modality Head and Neck N/A Computed Tomogra phy 08/12/2024 10:1 3 PM EXPORT SPECIALIST Impressions 08/13/2024 7:[address] HEAD: No acute intracranial abnormality or calvarial fracture. CT CERVICAL SPINE: 1. No acute osseous abnormality. 2. Multilevel cervical spondylosis; most pronounced at C5-C6 and C6-C7. For the purposes of quality control associate, this study was initially interpreted by teleradiology. There is no significant discrepancy. Electronically signed by: Zaheer Navas M.D. Narrative 08/13/2024 7:02 AM EXPORT SPECIALIST EXAMINATION: 1. CT head without contrast 2. [...] C6-C7. For the purposes of quality control associate, this study was initially interpreted by teleradiology. There is no significant discrepancy. Electronically signed by: Zaheer Navas M.D. us Batsheva Portillo MD IMG CT PROCEDURES Final Res ult * Protime-INR (08/12/2024 10:05 PM EXPORT SPECIALIST) PT 12.8 9.7 - 13.0 sec INR 1.18 0.90 - 1.20 [facility] Comment: Interpretive data Oral anticoagulant therapeutic ranges: Venous thromboembolism prophylaxis or treatment: 2.0-3.0 CARDIOLOGY Standard range: 2.0-3.0 High-intensity range: 2.5-3.5 Refer to indication-specific guidelines for appropriate target ranges for prosthetic heart valve replacement. Current interpretive data was last revised on 2019. Blood 08/12/2024 10:0 5 PM EXPORT SPECIALIST 08/12/2024 10:29 PM EXPORT SPECIALIST us Batsheva Portillo MD LAB BLOOD ORDERABLES Final Result [facility] [address] Department [place] [address] * (ABNORMAL) D-dimer, quantitative (08/12/2024 10:05 PM EXPORT SPECIALIST) D-Dimer 1,783(H) <=499 ng/mL FEU Comment: Interpretive [...] 68, VTE cut-off 680 ng/ml FEU. References; Schoutsandra HT et al. Brit Med J. 2013;346:f2492. Carlitos et al. Annals Int Med. 2015;163:701-11. Current interpretive data was last revised on 2019. Blood 08/12/2024 10:0 5 PM EXPORT SPECIALIST 08/12/2024 10:05 PM EXPORT SPECIALIST us Batsheva Portillo MD LAB BLOOD ORDERABLES Final Result Performing Organization Address [facility] Co de Phone Number [facility] [address] [facility] [place] [address] * Folate - Add on lab test (08/12/2024 9:53 PM EXPORT SPECIALIST) Acceptable Yes Blood 08/12/2024 9:53 PM EXPORT SPECIALIST 08/12/2024 9:53 PM EXPORT SPECIALIST Narrative [facility] - 08/12/2024 9:54 PM EXPORT SPECIALIST Name of Test->Folate us Batsheva Portlilo MD LAB BLOOD ORDERABLES Final Result Performing Organization Address [facility] Co de Phone Number [facility] [address] [facility] [place] [address] * Vitamin B12 - Add on lab test (08/12/2024 9:53 PM EXPORT SPECIALIST) Acceptable Yes Blood 08/12/2024 9:53 PM EXPORT SPECIALIST 08/12/2024 9:54 PM EXPORT SPECIALIST Narrative [facility] - 08/12/2024 9:54 PM EXPORT SPECIALIST Name of Test->Vitamin B12 Batsheva Portillo MD LAB BLOOD ORDERABLES Final Result Performing Organization Address [facility] Co de Phone Number [facility] [address] [facility] [place] [address] * Iron profile - Add on lab test (08/12/2024 9:53 PM EXPORT SPECIALIST) Acceptable Yes Blood 08/12/2024 9:53 PM EXPORT SPECIALIST 08/12/2024 9:54 PM EXPORT SPECIALIST Narrative [facility] - 08/12/2024 9:54 PM EXPORT SPECIALIST Name of Test->Iron profile us Batsheva Portillo MD LAB BLOOD ORDERABLES Final Result Performing Organization Address [facility] Co de Phone Number [facility] [address] [facility] [place] [address] * NT-Pro BNP - Add on lab test (08/12/2024 9:53 PM EXPORT SPECIALIST) Acceptable Yes Blood 08/12/2024 9:53 PM EXPORT SPECIALIST 08/12/2024 9:53 PM EXPORT SPECIALIST Narrative [facility] - 08/12/2024 9:54 PM EXPORT SPECIALIST Name of Test->NT-Pro BNP us Batsheva Portillo MD LAB BLOOD ORDERABLES Final Result Performing Organization Address [facility] de Phone Number [facility] [address] [facility] [place] [address] * TSH reflex Free T4 - Add on lab test (08/12/2024 9:53 PM EXPORT SPECIALIST) Acceptable Yes Blood 08/12/2024 9:53 PM EXPORT SPECIALIST 08/12/2024 9:53 PM EXPORT SPECIALIST Narrative [facility] - 08/12/2024 9:54 PM EXPORT SPECIALIST Name of Test->TSH reflex Free T4 us Batsheva Portillo MD LAB BLOOD ORDERABLES Final Result Performing Organization Address [facility] Co de Phone Number [facility] [address] [facility] [employer] [place], [place] [id number] * Phosphorus - Add on lab test (08/12/2024 9:53 PM EXPORT SPECIALIST) Acceptable Yes Blood 08/12/2024 9:53 PM EXPORT SPECIALIST 08/12/2024 9:53 PM EXPORT SPECIALIST Narrative [facility] - 08/12/2024 9:55 PM EXPORT SPECIALIST Name of Test->Phosphorus Batsheva Portillo MD LAB BLOOD ORDERABLES Final Result [facility] [address] [place] [address] * Magnesium - Add on lab test (08/12/2024 9:53 PM EXPORT SPECIALIST) Acceptable Yes Blood 08/12/2024 9:53 PM EXPORT SPECIALIST 08/12/2024 9:53 PM EXPORT SPECIALIST Narrative [facility] - 08/12/2024 9:55 PM EXPORT SPECIALIST Name of Test->Magnesium Batsheva Portillo MD LAB BLOOD ORDERABLES Final Result Performing Organization Address [facility] Co de Phone Number [facility] [address] Department [employer] [place], [place] [id number] * Troponin T high-sensitivity 2-hour (08/12/2024 9:52 PM EXPORT SPECIALIST) Pathologist [facility] Trop T hs 6 <=22 ng/L Comment: Interpretive Data For further hscTnT resources including the diagnostic algorithm and an aid in interpretation, copy and paste this link: https://nrl.testcatalog.org/show/hsTrop Current Interpretive Data last revised 2020. Trop T hs delta -1 ng/L [facility] Trop T hs interp Insignificant [facility] Blood 08/12/2024 9:52 PM EXPORT SPECIALIST 08/12/2024 10:30 PM EXPORT SPECIALIST Ace Gonzales MD LAB BLOOD ORDERABLES F inal Result Performing Organization Address City/[facility]/ZIP Co de Phone Number [facility] [address] [place] [address] * Ethanol (08/12/2024 9:52 PM EXPORT SPECIALIST) Ethanol <10 <=10 mg/dL Comment: Interpretive Data Legal limit of intoxication > or = 80 mg/dL Levels > or = 400 mg/dL are potentially TOXIC. Current interpretive data was last revised on 2018. Blood 08/12/2024 9:52 PM EXPORT SPECIALIST 08/12/2024 10:29 PM EXPORT SPECIALIST Batsheva Portillo MD LAB BLOOD ORDERABLES Final Result Performing Organization Address City/[facility]/ZIP Co de Phone Number [facility] [address] [place] [address] * Hepatitis panel, acute Blood (08/12/2024 9:13 PM EXPORT SPECIALIST) Hep A IgM Nonreactive Nonreactive Comment: Interpretive Data: If Hep A IgM Ab is reported as Equivocal, a new sample should be drawn in two weeks for testing. Current interpretive data was last revised on 19. Hep B core IgM Nonreactive Nonreactive [facility] Comment: Interpretive Data If HepB Core IgM Ab is reported as Equivocal, a new sample should be drawn in two weeks for testing. Current interpretive data was last revised on 19. Hep C Ab Nonreactive Nonreactive [facility] Comment: Interpretive Data Nonreactive: Antibodies to HCV [...] last revised on 2019. HepBsAg Nonreactive Nonreactive [facility] Blood 08/12/2024 9:13 PM EXPORT SPECIALIST 08/12/2024 9:17 PM EXPORT SPECIALIST us aBtsheva Portillo MD LAB MICROBIOLOGY - GENERAL ORDERABLES Final Result Performing Organization Address City/[facility]/ZIP Co de Phone Number [facility] [address] [place] [address] * Acetaminophen level (08/12/2024 9:13 PM EXPORT SPECIALIST) Pathologist [facility] Acetaminophen <5 <=5 mcg/mL Comment: Interpretive Data Significant hepatic injury may occur and treatment with n-acetyl cysteine is generally recommended if the acetaminophen level exceeds: 150 mcg/mL at 4 hours after ingestion 75 mcg/mL at 8 hours after ingestion 38 mcg/mL at 12 hours after ingestion 19 mcg/mL at 16 hours after ingestion Consult toxicology or poison control ([phone]) for unknown ingestion time. Current interpretive data was last revised 2023. Blood 08/12/2024 9:13 PM EXPORT SPECIALIST 08/12/2024 9:17 PM EXPORT SPECIALIST us Batsheva Portillo MD LAB BLOOD ORDERABLES Final Result Performing Organization Address [facility] Co de Phone Number [facility] [address] [place] [address] * Troponin T high-sensitivity series (baseline, 2hr, 4hr, 6hr) (08/12/2024 8:08 PM EXPORT SPECIALIST) Pathologist [facility] Trop T hs 7 <=22 ng/L Comment: Interpretive Data For further hscTnT resources including the diagnostic algorithm and an aid in interpretation, copy and paste this link: https://nrl.testcatalog.org/show/hsTrop Current Interpretive Data last revised 2020. Blood 08/12/2024 8:0 8 PM EXPORT SPECIALIST 08/12/2024 8:23 PM EXPORT SPECIALIST us Batsheva Portillo MD LAB BLOOD ORDERABLES Final Result Performing Organization Address [facility] Co de Phone Number [facility] [address] [place] [address] * eGFR (08/12/2024 8:08 PM EXPORT SPECIALIST) [facility] eGFR >90 >=60 mL/min/1. 73 m2 [...] last reviewed 2021. Blood 08/12/2024 8:08 PM EXPORT SPECIALIST 08/12/2024 8:23 PM EXPORT SPECIALIST us Batsheva Portillo MD LAB BLOOD ORDERABLES Final Result [facility] [address] Department [place] [address] * Differential, auto (08/12/2024 8:08 PM EXPORT SPECIALIST) Neutrophil abs 3.5 1.5 - 6.5 K/cumm Imm gran abs 0.0 0.0 - 0.1 K/cumm [facility] Lymphocyte abs 2.2 0.8 - 3.3 K/cumm [facility] Monocyte abs 0.5 0.2 - 0.8 K/cumm [facility] Eosinophil abs 0.3 0.0 - 0.5 K/cumm [facility] Basophil abs 0.1 0.0 - 0.1 K/cumm [facility] Neutrophil pct 54.5 % [facility] Comment: Interpretive Data Percent cell count reference ranges are not reported, since discordance with absolute values may lead to misinterpretation of CBC data. Current Interpretive Data was last revised on 2017. Imm gran pct 0.3 % [facility] Comment: Interpretive Data Percent cell count reference ranges are not reported, since discordance with absolute values may lead to misinterpretation of CBC data. Current Interpretive Data was last revised on 2017. Lymphocyte pct 33.3 % [facility] Comment: Interpretive Data Percent cell count reference ranges are not reported, since discordance with absolute values may lead to misinterpretation of CBC data. Current Interpretive Data was last revised on 2017. Monocyte pct 6.9 % [facility] Comment: Interpretive Data Percent cell count reference ranges are not reported, since discordance with absolute values may lead to misinterpretation of CBC data. Current Interpretive Data was last revised on 2017. Eosinophil pct 4.1 % [facility] Comment: Interpretive Data Percent cell count reference ranges are not reported, since discordance with absolute values may lead to misinterpretation of CBC data. Current Interpretive Data was last revised on 2017. Basophil pct 0.9 % [facility] Comment: Interpretive Data Percent cell count reference ranges are not reported, since discordance with absolute values may lead to misinterpretation of CBC data. Current Interpretive Data was last revised on 2017. Blood 08/12/2024 8:08 PM EXPORT SPECIALIST 08/12/2024 8:23 PM EXPORT SPECIALIST us Batsheva Portillo MD LAB BLOOD ORDERABLES Final Result [facility] [address] Department [place] [address] * Pro B-type natriuretic peptide (08/12/2024 8:08 PM EXPORT SPECIALIST) NT-proBNP 60 <=300 pg/mL Comment: Interpretive Comments: [...] Revised Date: 2018. Blood 08/12/2024 8:08 PM EXPORT SPECIALIST 08/12/2024 8:23 PM EXPORT SPECIALIST us Batsheva Portillo MD LAB BLOOD ORDERABLES Final Result Performing Organization Address City/[facility]/ZIP Co de Phone Number [facility] [address] [place] [address] * Thyroid Function [place] (08/12/2024 8:08 PM EXPORT SPECIALIST) Pathologist [facility] TSH 1.43 0.30 - 4.20 mcIUnit/mL Blood 08/12/2024 8:08 PM EXPORT SPECIALIST 08/12/2024 8:23 PM EXPORT SPECIALIST Batsheva Portillo MD LAB BLOOD ORDERABLES Final Result Performing Organization Address City/[facility]/ZIP Co de Phone Number [facility] [address] [place] [address] * (ABNORMAL) Iron profile w/ IBC (08/12/2024 8:08 PM EXPORT SPECIALIST) Pathologist [facility] Iron 46(L) 50 - 150 mcg/dL TIBC 296 250 - 400 mcg/dL [facility] Transferrin saturation 16(L) 20 - 50 % [facility] Blood 08/12/2024 8:08 PM EXPORT SPECIALIST 08/12/2024 8:23 PM EXPORT SPECIALIST us Batsheva Portillo MD LAB BLOOD ORDERABLES Final Result Performing Organization Address [facility]/ZIP Co de Phone Number [facility] [address] [place] [address] * (ABNORMAL) CBC with auto differential (08/12/2024 8:08 PM EXPORT SPECIALIST) Pathologist [facility] WBC 6.5 3.8 - 9.9 K/cumm Hgb 12.5(L) 13.0 - 17.5 g/dL [facility] Hct 38.3(L) 38.9 - 50.3 % [facility] Plt 207 150 - 400 K/cumm [facility] MPV 10.1 9.1 - 12.3 fL [facility] RBC 4.22(L) 4.30 - 5.80 M/cumm [facility] MCV 90.8 81.3 - 96.4 fL [facility] MCH 29.6 27.1 - 33.3 pg [facility] MCHC 32.6 32.3 - 35.7 g/dL [facility] RDW CV 13.0 11.1 - 14.9 % [facility] RDW SD 43.2 35.7 - 48.1 fL [facility] NRBC abs 0.00 0.00 - 0.01 K/cumm [facility] Blood (Blood, Venous) 08/12/2024 8:08 PM EXPORT SPECIALIST 08/12/2024 8:23 PM EXPORT SPECIALIST us Batsheva Portillo MD LAB BLOOD ORDERABLES Final Result [facility] [address] Department of [employer] [place], [place] [id number] * Phosphorus (08/12/2024 8:08 PM EXPORT SPECIALIST) Pathologist [facility] Phosphorus, pl 3.1 2.3 - 4.5 mg/dL Blood 08/12/2024 8:08 PM EXPORT SPECIALIST 08/12/2024 8:23 PM EXPORT SPECIALIST us Batsheva Portillo MD LAB BLOOD ORDERABLES Final Result Performing Organization Address City/[facility]/ZIP Co de Phone Number [facility] [address] [facility] [place] [address] * Magnesium (08/12/2024 8:08 PM EXPORT SPECIALIST) Magnesium 2.0 1.4 - 2.5 mg/dL Blood 08/12/2024 8:08 PM EXPORT SPECIALIST 08/12/2024 8:23 PM EXPORT SPECIALIST us Batsheva Portillo MD LAB BLOOD ORDERABLES Final Result Performing Organization Address [facility] Co de Phone Number [facility] [address] [facility] [place] [address] * Folate (08/12/2024 8:08 PM EXPORT SPECIALIST) Folic acid 7.6 >=5.0 ng/mL Blood 08/12/2024 8:08 PM EXPORT SPECIALIST 08/12/2024 8:23 PM EXPORT SPECIALIST us Batsheva Portillo MD LAB BLOOD ORDERABLES Final Result Performing Organization Address City/[facility] Co de Phone Number [facility] [address] [facility] [place] [address] * Vitamin B12 (08/12/2024 8:08 PM EXPORT SPECIALIST) Vitamin B12 860 230 - 1,250 pg/mL Blood 08/12/2024 8:08 PM EXPORT SPECIALIST 08/12/2024 8:23 PM EXPORT SPECIALIST us Batsheva Portillo MD LAB BLOOD ORDERABLES Final Result Performing Organization Address City/[facility]/ZIP Co de Phone Number [facility] [address] Department [place] [address] * (ABNORMAL) Comprehensive metabolic panel (08/12/2024 8:08 PM EXPORT SPECIALIST) Sodium 142 135 - 145 mmol/L Potassium, pl 4.4 3.3 - 4.9 mmol/L [facility] Chloride 106 97 - 110 mmol/L [facility] CO2 27 22 - 32 mmol/L [facility] Anion gap 9 2 - 15 mmol/L [facility] BUN 29(H) 6 - 25 mg/dL [facility] Creatinine 1.02 0.80 - 1.30 mg/dL [facility] Glucose 104 70 - 199 mg/dL [facility] Comment: Interpretive Data Fasting glucose >/= 126 [...] 2022. Calcium 8.6 8.5 - 10.3 mg/dL [facility] Bilirubin, total 0.3 0.1 - 1.2 mg/dL [facility] Protein, pl 6.1(L) 6.5 - 8.5 g/dL [facility] Albumin 3.7 3.5 - 5.0 g/dL [facility] Alk phos 83 40 - 130 Units/L [facility] ALT 230(H) 7 - 55 Units/L [facility] AST 158(H) 10 - 50 Units/L [facility] Blood 08/12/2024 8:08 PM EXPORT SPECIALIST 08/12/2024 8:23 PM EXPORT SPECIALIST us Batsheva Portillo MD LAB BLOOD ORDERABLES Final Result [facility] [address] Department [place] [address] * XR Chest PA Lateral 2 Views (08/12/2024 7:27 PM EXPORT SPECIALIST) Anatomical Region Laterality Modality Body, Chest N/A Computed Radiogr aphy 08/13/2024 7:44 AM EXPORT SPECIALIST Impressions 08/13/2024 7:44 AM EXPORT SPECIALIST There is subtle airspace opacity in the right lung base which may represent pneumonia in the appropriate clinical setting. Alternatively, this may represent atelectasis. No pleural effusion. No pneumothorax. Heart size is normal. Electronically signed by: Tari Gavin M.D. Narrative 08/13/2024 7:44 AM EXPORT SPECIALIST EXAMINATION: XR CHEST PA LATERAL 2 VIEWS [...] * ECG 12 lead (08/12/2024 6:48 PM EXPORT SPECIALIST) 08/12/2024 6:48 PM EXPORT SPECIALIST Narrative [facility] - 08/13/2024 1:41 PM EXPORT SPECIALIST Vent Rate: 63 bpm RR Interval: 938 msec AK Interval: 165 msec QRS Duration: 96 msec QT Interval: 378 msec QTC Interval: 386 msec P-R-T [place]: 74 - 81 - 50 degrees IMPRESSION: SINUS RHYTHM POSSIBLE LEFT ATRIAL ENLARGEMENT [-0.1mV P WAVE IN V1/V2] BORDERLINE ECG Electronically Signed By: Jerel Ramirez MD PhD us Batsheva Portillo MD ECG ORDERABLES Final Resul t [facility] [employer] [facility] * XR Chest Pa Lateral 2 Views (08/11/2024 2:02 AM EXPORT SPECIALIST) Anatomical Region Laterality Modality Body, Chest N/A Computed Radiogr aphy 08/11/2024 3:00 AM EXPORT SPECIALIST Impressions 08/11/2024 9:05 AM EXPORT SPECIALIST Comparison radiograph from 08/08/2024. No consolidation, pleural effusion, or pneumothorax. Cardiomediastinal silhouette within normal limits. Dictated by: Julio Rooney M.D. The radiology attending physician has personally reviewed this study, and had reviewed and/or edited this written report and agrees with it. Electronically signed by: Brice Mantilla M.D. Narrative 08/11/2024 9:05 AM EXPORT SPECIALIST EXAMINATION: 2 view chest radiograph Procedure Note [...] it. Electronically signed by: Brice Mantilla M.D. Abdiel Hawkins MD IMG XR PROCEDURES Final Re sult * ECG 12-LEAD (08/11/2024 1:43 AM EXPORT SPECIALIST) Narrative [facility] - 08/11/2024 1:43 AM EXPORT SPECIALIST Johnnie Kelly MD 08/11/2024 1:44 AM ECG [...] PA Lateral 2 Views (08/08/2024 10:42 PM EXPORT SPECIALIST) Anatomical Region Laterality Modality Body, Chest N/A Computed Radiogr aphy 08/08/2024 11:0 3 PM EXPORT SPECIALIST Impressions 08/09/2024 10:05 AM EXPORT SPECIALIST The current study is compared with the prior radiograph dated 09/13/2019. Mild bibasilar atelectasis. No consolidation, pleural effusion, or pneumothorax. Cardiomediastinal silhouette within normal limits. Dictated by: Chet Boogie MD The radiology attending physician has personally reviewed this study, and had reviewed and/or edited this written report and agrees with it. Electronically signed by: Steve Arce M.D. Narrative 08/09/2024 10:05 AM EXPORT SPECIALIST EXAMINATION: 2 view chest radiograph Procedure Note [...] CT Head WO Contrast (08/08/2024 10:34 PM EXPORT SPECIALIST) Anatomical Region Laterality Modality Head and Neck N/A Computed Tomogra phy 08/08/2024 10:4 4 PM EXPORT SPECIALIST Impressions 08/09/2024 10:54 AM EXPORT SPECIALIST 1. No acute intracranial process. 2. Large burden of cerumen in both external auditory canals which may be impacted. Dictated by: Juancho Marquez MD, Ph.D The radiology attending physician has personally reviewed this study, and had reviewed and/or edited this written report and agrees with it. Electronically signed by: Indio Zambrano M.D. Narrative 08/09/2024 10:54 AM EXPORT SPECIALIST EXAMINATION: CT head without contrast HISTORY: 43-year-old [...] ult * ECG 12-LEAD (08/08/2024 8:56 PM EXPORT SPECIALIST) Narrative [facility] - 08/08/2024 8:56 PM EXPORT SPECIALIST Salena Cobb MD 08/08/2024 8:57 PM ECG [...] Gatica MD ECG ORDERABLES Final Resul t [facility] * (ABNORMAL) Respiratory pathogen panel Nasopharyngeal (08/06/2024 9:59 AM EXPORT SPECIALIST) [facility] Influenza A RNA Not Detected Not Detected Influenza B RNA Not Detected Not Detected [facility] RSV RNA Not Detected Not Detected [facility] COVID-19 RNA Not Detected Not Detected [facility] Coronavirus 229E RNA Not Detected Not Detected [facility] Coronavirus HKU1 RNA Not Detected Not Detected [facility] Coronavirus NL63 RNA Detected(A) Not Detected [facility] Coronavirus OC43 RNA Not Detected Not Detected [facility] Adenovirus DNA Not Detected Not Detected [facility] Metapneumovirus RNA Not Detected Not Detected [facility] Rhinovirus/Enterov irus RNA Not Detected Not Detected [facility] Parainfluenza 1 RNA Not Detected Not Detected [facility] Parainfluenza 2 RNA Not Detected Not Detected [facility] Parainfluenza 3 RNA Not Detected Not Detected [facility] Parainfluenza 4 RNA Not Detected Not Detected [facility] B. pertussis DNA Not Detected Not Detected [facility] B. parapertussis DNA Not Detected Not Detected [facility] C. pneumoniae DNA Not Detected Not Detected [facility] M. pneumoniae DNA Not Detected Not Detected [facility] Nasopharyngeal 08/06/2024 9: 59 AM EXPORT SPECIALIST 08/06/2024 10:52 AM EXPORT SPECIALIST Narrative [facility] - 08/06/2024 11:43 AM EXPORT SPECIALIST Is the Patient experiencing symptoms consistent with COVID?->Yes Surveillance testing for transplant patient?->No Interpretive Data The [employer] FilmArray Respiratory Panel (RP2.1) assay is a [...] assay has FDA clearance for testing of RESIDENT CARE PROVIDER swabs. The performance of additional specimen types has been assessed by the performing laboratory. The performance characteristics of this assay have been determined by [facility]. Current interpretive data was last revised on 22. Eliza [facility] MICROBIOLOGY - GENERAL [place] Final Result [facility] Department [place] [address] from Last 3 Months Insurance [facility] [place] [id number] [facility] [place] [address] [facility] Advance Directives For more information, please contact: [phone] * Full Code (Latest Code Status on File) Date Activated Date Inactivated Comments 08/13/2024 3:12 AM 08/14/2024 6:01 PM * Full Code Date Activated Date Inactivated Comments 10/28/2022 5:15 PM 10/29/2022 2:07 PM * Full Code Date Activated Date Inactivated Comments 08/09/2019 5:28 PM 08/10/2019 5:09 PM * Full Code Date Activated Date Inactivated Comments 07/29/2019 4:26 PM 08/04/2019 10:36 PM Care Teams Business Ethics Professor Relationship Specialty [place] [address] [place] [address] PCP - General Family Medicine 05/18/24 [place] [address] [address] Referring Physician General Surgery 08/04/19 [place] [address] [address] Consulting Physician Gastroenterology 08/04/19
[2024-09-21 21:09] VITALS: BP 122/67; PULSE 85; RESP 14; TEMP 36.4; O2SAT 98
[2024-09-21 21:52] LABS: Influenza A QL RT-PCR Negative (Negative); Influenza B QL RT-PCR Negative (Negative); RSV RNA, RT-PCR Negative (Negative); SARS-CoV-2 RNA PCR Negative (Negative)
[2024-09-21 23:46] VITALS: BP 126/78; PULSE 72; RESP 16; TEMP 36.3; O2SAT 99
--- OUTSIDE RECORDS SUMMARY | 2024-09-22 00:53 | XMS_ITS | Encounter Summary ---
Author Organization [facility] Address 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 DYE WORKER Gender Identity Not on file Sexual [...] (Late Contact Info) Description 08/27/2025 11:30 AM PIECE DYE WORKER Office Visit [facility] Internal Medicine - [place] [address] [facility] [address] [place] [address] [place] [address] [facility] [address] Kyler Holland [facility] [address] [place] [address] documented as of this encounter Procedures Procedure Name Priority Date/Time Associated Diagnosis Comments SEDIMENTATION RATE Stat 12/24/2022 12 :05 PM CDT Generalized enlarged lymph nodes C-REACTIVE PROTEIN Stat 12/24/2022 12 :05 PM CDT Generalized enlarged lymph nodes documented in this encounter Results * C-REACTIVE PROTEIN (12/24/2022 12:05 PM CDT) CRP <3.0 <5.0 mg/L 12/24/2022 3:02 PM CDT [facility] Blood 12/24/2022 12:0 5 PM CDT 12/24/2022 2:22 PM CDT us Ny Hicks MD CHEMISTRY ORDERABLES Final Re sult [facility]# [id number] [address] [place] [address] * SEDIMENTATION RATE (12/24/2022 12:05 PM CDT) Pathologist [facility] ESR (SEDIMENTATION RATE) 7 <=15 mm/Hr 12/24/2022 2:55 PM CDT [facility] Blood Collection / Unknown 12/24/2022 12:05 PM CDT 12/24/2022 2:22 PM CDT us Ny Hicks MD HEMATOLOGY ORDERABLES Final R esult [facility] CLMT# [id number] [address] [place] [address] documented in this encounter Visit Diagnoses Diagnosis Generalized enlarged lymph nodes Enlargement of lymph nodes documented in this encounter Additional Health Concerns Infection Onset Date Last Indicated Resolved Time R/O COVID-19 08/21/2024 08/21/2024 08/21/2024 4:37 PM PIECE DYE WORKER R/O Respiratory 09/08/2024 09/08/2024 09/09/2024 1 :04 AM PIECE DYE WORKER documented as of this encounter Care Teams Electroslag Welding Machine Operator Relationship Specialty [place] [address] [place] [phone] PCP - General Family Practice 12/01/22 documented as of this encounter
--- OUTSIDE RECORDS SUMMARY | 2024-09-22 00:54 | XMS_ITS | Encounter Summary ---
Author Organization [facility] Address [address] [place] [address] Care Team Providers Care Offal Separator Name Role Phone Jerel Camejo MD Primary Care Provider [phone] Reason for Visit * Reason Comments Sore Throat Pt cc sore throat wi th sinus congestion/drainage, headache, and stomach distress. Onset was yesterday. Encounter Details Date Type Department Care Team (Late st Contact Info) Description 09/21/2024 5:45 PM SCRAP BUNCH MAKER Office Visit [facility] [place] [address] [place] [phone] [facility] Kay Melo, [facility] [address] [place] [address] Acute cough (Primary Dx) Social [...] file Legal Sex Male 7:43 PM SCRAP BUNCH MAKER Gender Identity Not on file Sexual Orientation Not on file documented as of this encounter Last Filed Vital Signs Vital Sign Reading Time Taken Comments Blood Pressure 110/79 09/21/2024 5:48 PM SCRAP BUNCH MAKER Pulse 80 09/21/2024 5:48 PM SCRAP BUNCH MAKER Temperature 36.8 C (98.3 F) 09/21/2024 5:48 PM SCRAP BUNCH MAKER Respiratory Rate 12 09/21/2024 5:48 PM SCRAP BUNCH MAKER Oxygen Saturation 97% 09/21/2024 5:48 PM SCRAP BUNCH MAKER Inhaled Oxygen Concentration - - Weight 74.8 kg (165 lb) 09/21/2024 5:48 PM SCRAP BUNCH MAKER Height 172.7 cm (5' 8 ) 09/21/2024 5:48 PM SCRAP BUNCH MAKER Body Mass Index 25.09 09/21/2024 5:48 PM SCRAP BUNCH MAKER documented in this encounter Patient Instructions * Attachments The following attachments cannot be sent through Care Everywhere. * URI (Upper Respiratory Infection): Viral (Tajik) documented in this encounter Progress Notes * [...] Note: Added automatically from request for surgery [id number] Leg wound, left 09/13/2019 Chronic abdominal pain 08/12/2019 S/P cholecystectomy 08/12/2019 Vasovagal episode 08/12/2019 Calculus of gallbladder 07/29/2019 Intractable right upper quadrant abdominal pain 07/29/2019 Overview Note: Added automatically from request for surgery [id number] Nausea 07/29/2019 Adjustment disorder with depressed mood [...] Lymphatic: No palpable lymphadenopathy. Non tender nodes. P BUNCH MAKER documented in this encounter Miscellaneous Notes * Patient Instructions - Kay Melo FNP - 09/21/2024 5:45 PM SCRAP BUNCH MAKER Most upper respiratory illnesses/head colds are viral [...] worsen a little as the course progresses. P BUNCH MAKER documented in this encounter Plan of Treatment Upcoming Encounters Date Type Department Care Team (Late st Contact Info) Description 08/27/2025 11:30 AM SCRAP BUNCH MAKER Office Visit [facility] Internal Medicine - [place] [address] [place] [address] [place] [address] [facility] [address] [place] [phone] documented as of this encounter Procedures Procedure Name Priority Date/Time Associated Diagnosis Comments POC COVID-19 ANTIGEN Routine 09/21/2024 5:48 PM SCRAP BUNCH MAKER Acute cough POC INFLUENZA A AND B ANTIGEN Routine 09/21/2024 5:48 PM SCRAP BUNCH MAKER Acute cough documented in this encounter Results * POC COVID-19 ANTIGEN (09/21/2024 5:48 PM SCRAP BUNCH MAKER) Pathologist [facility] COVID-19 ANTIGEN POC Presumptively Negative Presumptively Negative [facility] INTERNAL KIT QC POC Pass Pass [facility] KIT LOT NUMBER POC [id number] [facility] KIT EXP DATE POC 08/24/25 [facility] READ METHOD POC Visual [facility] Upper Respiratory 09/21/2024 5:48 PM SCRAP BUNCH MAKER Kay Melo CHEMISTRY LECTURER POINT OF CARE TESTING F inal Result [facility] CLIA# [id number] [place] [address] * POC INFLUENZA A AND B ANTIGEN (09/21/2024 5:48 PM SCRAP BUNCH MAKER) Pathologist [facility] INFLUENZA A AG POC Negative/Not Detected Negative/No t Detected [facility] INFLUENZA B AG POC Negative/Not Detected Negative/No t Detected [facility] INTERNAL KIT QC POC Pass Pass [facility] KIT LOT NUMBER POC [id number] [facility] KIT EXP DATE POC 03/01/26 [facility] READ METHOD POC Visual [facility] Upper Respiratory ANTERIOR NARES SWAB / Unknown 09/21/2024 5:48 PM SCRAP BUNCH MAKER us Kay Melo CHEMISTRY LECTURER POINT OF CARE TESTING F inal Result [facility] CLIA# [id number] [place] [address] documented in this encounter Visit Diagnoses Diagnosis Acute cough- Primary documented in this encounter Care Teams Offal Separator Relationship Specialty [place] [address] [place] [address] [phone] PCP - General Family Practice 12/01/22 documented as of this encounter
--- OUTSIDE RECORDS SUMMARY | 2024-09-22 00:54 | XMS_ITS | Encounter Summary ---
Author Organization [facility] Address [address] [place] [address] Care Team Providers Care Answerer Name Role Phone Jerel Camejo MD Primary Care Provider [phone] Reason for Visit * Reason Comments Leg Swelling 44yoM to ED for leg swelling x couple weeks. Pt reports being seen at [facility] last week and got a diuretic [...] Anthony gilmore Referred To Contact Emergency Medicine [facility] [address] [place] [address] Phone: tel: fax: Referral ID Status Reason Start Date Expiration Date Visits Re quested Visits Authorized [id number] 1 1 Encounter Details Date Type Department Care Team (Late st Contact Info) Description 09/20/2024 8:51 PM TRUCKLOAD OWNER OPERATOR - 09/20/2024 9:18 PM TRUCKLOAD OWNER OPERATOR Emergency [facility] [address] [place] [address] Karlo Dobbs MD [address] [place] [address] Bilateral lower extremity edema (Primary [...] on file Legal Sex Male 7:43 PM TRUCKLOAD OWNER OPERATOR Gender Identity Not on file Sexual Orientation Not on file documented as of this encounter Last Filed Vital Signs Vital Sign Reading Time Taken Comments Blood Pressure 135/58 09/20/2024 8:40 PM TRUCKLOAD OWNER OPERATOR Pulse 78 09/20/2024 8:40 PM TRUCKLOAD OWNER OPERATOR Temperature 36.8 C (98.3 F) 09/20/2024 8:40 PM TRUCKLOAD OWNER OPERATOR Respiratory Rate 20 09/20/2024 8:40 PM TRUCKLOAD OWNER OPERATOR Oxygen Saturation 98% 09/20/2024 8:40 PM TRUCKLOAD OWNER OPERATOR Inhaled Oxygen Concentration - - Weight 74.8 kg (165 lb) 09/20/2024 8:40 PM TRUCKLOAD OWNER OPERATOR Height 172.7 cm (5' 8 ) 09/20/2024 8:40 PM TRUCKLOAD OWNER OPERATOR Body Mass Index 25.09 09/20/2024 8:40 PM TRUCKLOAD OWNER OPERATOR documented in this encounter Discharge Instructions * Discharge Instructions* Kralo Dobbs MD - 09/20/2024 9:07 PM TRUCKLOAD OWNER OPERATOR Elevate legs at rest Wear compression stockings Fill and take the Furosemide as prescribed KLOAD OWNER OPERATOR KLOAD OWNER OPERATOR * Attachments The following attachments cannot be sent through Care Everywhere. * Edema: Leg and Ankle (Mongolian) documented in this encounter Medications at Time [...] 2311 Date/Time Order Dose Route Action 09/20/20240 TRUCKLOAD OWNER OPERATOR furosemide (LASIX) tablet 20 mg 20 mg [...] and medical decision making performed by me. KLOAD OWNER OPERATOR documented in this encounter Miscellaneous Notes * Gen AI RUTH - GENERATIVE AI HANDOFF NOTE - 09/21/2024 11:28 PM CST ## ER_course: ## # DIAGNOSIS: [...] wound on the left leg. No imaging was performed. ## Follow_up_orders: ## # The patient was advised to continue taking Lasix 20 mg orally twice daily, elevate his legs, and use compression stockings. # No new prescriptions or changes to home medications were made. # The patient was instructed to follow up with his primary care provider if symptoms persist or worsen. ## Home_Situation: ## # The patient is a frequent user of emergency department services, which may indicate potential issues with accessing regular outpatient care. No specific details about transportation, caregiver support, or financial constraints were provided. KLOAD OWNER OPERATOR documented in this encounter Plan of Treatment Upcoming Encounters Date Type Department Care Team (Late st Contact Info) Description 08/27/2025 11:30 AM TRUCKLOAD OWNER OPERATOR Office Visit [facility] Internal Medicine - [place] [address] [phone] [place] [address] [facility] [address] [address] documented as of this encounter Visit Diagnoses Diagnosis Bilateral lower extremity edema- Primary Edema documented in this encounter Administered Medications Inactive Administered Medications - up to 3 most recent administrations Medication Order MAR Action Action Date Dose Rate Site furosemide (LASIX) tablet 20 mg 20 mg, Oral, ONE TIME ONLY, 1 dose, On Wed09/20/24 at 2115, Routine Given 09/20/2024 9:10 PM TRUCKLOAD OWNER OPERATOR 20 mg documented in this encounter Active and Recently Administered Medications Times are shown in TRUCKLOAD OWNER OPERATOR. Scheduled Medication Order 09/18/2024 09/19/2024 09/20/2024 furosemide (LASIX) tablet 20 mg (COMPLETED) 20 mg, Oral, ONE TIME ONLY, 1 dose, On Wed09/20/24 at 2115, Routine 2109 (Given - Provid er: Rhona Luna RN) documented in this encounter Care Teams Answerer Relationship Specialty [place] [address] [facility] [address] Kyler Holland [facility] [address] [place] [phone] PCP - General Family Practice 12/01/22 documented as of this encounter
--- OUTSIDE RECORDS SUMMARY | 2024-09-22 00:54 | XMS_ITS | Clinical Summary ---
Author Organization [facility] Address [address] [place] [address] Care Team Providers Care Blind Hanger Name Role Phone Unavailable Primary Care Provider [...] patient's age to complete this topic Insurance [employer] P[employer]
--- OUTSIDE RECORDS SUMMARY | 2024-09-22 00:54 | XMS_ITS | Clinical Summary ---
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 (MG/DL) 100 mg/dL [facility] ESTIMATED AVERAGE GLUCOSE (MMOL/L) 5.5 mmol/L [employer] [facility] [facility] Comment: FASTING:NO FASTING: NO Test Performed at: [facility] [place] [address] [place] [address] [facility] Blood 08/21/2024 2:08 PM BAKELITE MOLDER 08/21/2024 2:08 PM BAKELITE MOLDER us Jerel Camejo MD CHEMISTRY ORDERABLES Final Resul t [facility] [phone] [place] [address] [address] [address] * LIPID PANEL (08/21/2024 2:08 PM BAKELITE MOLDER) CHOLESTEROL 149 <200 mg/dL [facility] HDL 67 > OR = 40 mg/dL [facility] TRIGLYCERIDE 57 <150 mg/dL [facility]il[facility] LDL CALCULATED 69 mg/dL (calc) [employer] gilmoer Abdi Comment: Reference range: <100 Desirable range <100 mg/dL for primary prevention; <70 mg/dL for patients with CHD or diabetic patients with > or = 2 CHD risk factors. LDL-C is now calculated using the Fernando-Maritza calculation, which is a validated novel method providing better accuracy than the Friedewald equation in the estimation of LDL-C. Fernando MEYER et al. GURDEEP. 2013;310(19): 9894-7018 (http://education.Presdo/faq/EDW332) CHOL/HDL RATIO 2.2 <5.0 (calc) Nayely [facility] [place] NON-HDL CHOLESTEROL 82 <130 mg/dL (calc) [facility]il[facility]di Comment: For patients with diabetes plus 1 major ASCVD risk factor, treating to a non-HDL-C goal of <100 mg/dL (LDL-C of <70 mg/dL) is considered a therapeutic option. Test Performed at: [place] [address] [place] [address] [facility] Blood 08/21/2024 2:08 PM BAKELITE MOLDER 08/21/2024 2:08 PM BAKELITE MOLDER Jerel Camejo MD CHEMISTRY ORDERABLES Final Resul t [facility] [phone] [facility] [address] [place] [address] * CT HEAD WO CONTRAST (08/11/2024 10:18 PM BAKELITE MOLDER) Anatomical Region Laterality Modality Head Computed Tomogra phy 08/11/2024 10:1 8 PM BAKELITE MOLDER Impressions 08/11/2024 10:25 PM BAKELITE MOLDER IMPRESSION: 1. No acute intracranial findings. Dictation location: Location 4 Narrative 08/11/2024 10:25 PM BAKELITE MOLDER Indication: Syncope Study: CT head without IV [...] Final Result from Last [address] [place] [id number] [employer] [place] [address] [employer] Care Teams Hurricane Tracker Relationship Specialty [place] [id number] [place] [address] PCP - General Family Practice 12/01/22
--- OUTSIDE RECORDS SUMMARY | 2024-09-22 00:55 | XMS_ITS | Referral Summary ---
Author Organization [address] Address [address] [place] [phone] Care Team Providers [employer] Accounts Manager Name Role Phone Elias Andrews MD Unavailable [phone] Jonah Otto MD Unavailable [phone] Jerel Camejo MD Primary Care Provider [phone] Encounters Date Type Department Care Team Description 09/20/2024 4:07 PM ENVELOPE SEALER - 09/20/2024 4:49 PM [facility] Emergency Department [address] [place] [address] Medication refill (Primary Dx) Discharge Disposition: Discharge to home or self care 09/20/2024 1:26 AM ENVELOPE SEALER - 09/20/2024 2:22 AM [facility] Emergency Department [address] [place] [address] Cesar Chiang MD Viral pharyngitis (Primary Dx) Discharge Disposition: Discharge to home or self care 09/19/2024 1:39 AM ENVELOPE SEALER - 09/19/2024 2:32 AM [facility] Emergency Department [address] [place] [address] Jasbir Yañez MD Pedal edema (Primary Dx) Discharge Disposition: Discharge to home or self care 09/18/2024 6:00 PM ENVELOPE SEALER - 09/18/2024 7:07 PM [facility] Emergency Department [address] [place] [address] Left before treatment completed (Primary Dx); Leg swelling Discharge Disposition: Left Against Medical Advice 09/17/2024 11:38 AM ENVELOPE SEALER - 09/17/2024 1:19 PM [facility] Emergency Department [address] [place] [address] Chronic venous insufficiency (Primary Dx); Bilateral lower extremity edema Discharge Disposition: Discharge to home or self care 09/14/2024 Telephone [facility] [place] [address] [place] [phone] Lexi Garcia, IMPRESS ASSOCIATE Med Refill 09/14/2024 12:10 AM ENVELOPE SEALER - 09/14/2024 1:49 AM [facility] Emergency Department [address] [place] [phone] Brice Sepulveda MD Bilateral lower extremity edema (Primary Dx) Discharge Disposition: Discharge to home or self care 09/13/2024 9:20 PM ENVELOPE SEALER - 09/13/2024 9:46 PM [facility] Emergency Department 2 [place] [phone] Michael Schrader MD Weakness (Primary Dx) Discharge Disposition: Discharge to home or self care 09/13/2024 2:46 AM ENVELOPE SEALER - 09/13/2024 5:31 AM [facility] Emergency Department [address] [place] [phone] Katharine Polanco MD Chronic venous insufficiency (Primary Dx); Lower extremity edema Discharge Disposition: Discharge to home or self care 09/12/2024 9:22 PM ENVELOPE SEALER - 09/12/2024 10:59 PM [facility] Emergency Department [address] [address] [address] Leg swelling (Primary Dx); Venous insufficiency; Venous stasis dermatitis Discharge Disposition: Discharge to home or self care 09/11/2024 10:35 PM ENVELOPE SEALER - 09/12/2024 3:44 AM [facility] Emergency Department [address] [place] [phone] Salena Crawley MD Lower extremity edema (Primary Dx); Cellulitis of left lower extremity Discharge Disposition: Discharge to home or self care 09/11/2024 7:00 PM ENVELOPE SEALER Office Visit [facility] at [address] [phone] Truman Gabriel, DO Symptom of leg swelling (Primary Dx) 09/10/2024 5:00 PM ENVELOPE SEALER Office Visit [facility] [address] [phone] Jess Hobson NP Cellulitis of left lower extremity (Primary Dx); Left leg swelling 09/07/2024 10:55 AM ENVELOPE SEALER - 09/07/2024 10:56 AM [facility] Emergency [facility] Emergency Department [address] [place] [address] Venous stasis dermatitis of both lower extremities (Primary Dx) Discharge Disposition: Discharge to home or self care 09/05/2024 8:08 PM ENVELOPE SEALER - 09/05/2024 10:28 PM [facility] Emergency [facility] Emergency Department [address] [place] [phone] Other chronic pain (Primary Dx); Bilateral lower extremity edema Discharge Disposition: Discharge to home or self care 09/05/2024 2:02 AM ENVELOPE SEALER - 09/05/2024 3:14 AM [facility] Emergency [facility] Emergency Department [address] [place] [address] Marek Nelson MD PhD Chronic pain of left lower extremity (Primary Dx) Discharge Disposition: Discharge to home or self care 09/03/2024 7:07 PM ENVELOPE SEALER - 09/03/2024 11:06 PM [facility] Emergency [facility] Emergency Department [address] [place] [phone] Cellulitis of left lower extremity (Primary Dx) Discharge Disposition: Discharge to home or self care 09/02/2024 8:24 AM ENVELOPE SEALER - 09/02/2024 11:59 PM [facility] Hospital Encounter [facility] [place] [address] Discharge Disposition: Discharge to home or self care 09/02/2024 3:25 AM ENVELOPE SEALER - 09/02/2024 3:41 AM [facility] Emergency [facility] Emergency Department [address] [place] [phone] Rachele Guerra MD Sprain of right ankle, unspecified ligament, initial encounter (Primary Dx) Discharge Disposition: Discharge to home or self care 09/01/2024 8:06 AM [facility] - 09/01/2024 9:39 AM [facility] Emergency [facility] Emergency Department [address] [place] [address] Jair Armendariz MD Sprain of right ankle, unspecified ligament, initial encounter (Primary Dx) Discharge Disposition: Discharge to home or self care 08/23/2024 9:27 PM [facility] - 08/23/2024 10:03 PM [facility] Emergency Department [address] [place] [phone] Leg swelling (Primary Dx); Cellulitis of left lower extremity Discharge Disposition: Discharge to home or self care 08/23/2024 1:41 AM [facility] - 08/23/2024 9:16 AM [facility] Emergency [facility] Emergency Department [address] [place] [phone] Salena Crawley MD Li, Alex, MD Schneider, Krishan Ugalde MD Leg swelling (Primary Dx); Cellulitis of left lower extremity; Failure of outpatient treatment Discharge Disposition: Discharge to home or self care 08/20/2024 11:11 PM [facility] - 08/21/2024 1:30 AM [facility] Emergency [facility] Emergency Department [address] [place] [phone] Dependent edema (Primary Dx) Discharge Disposition: Discharge to home or self care 08/20/2024 9:06 AM [facility] - 08/20/2024 11:08 AM [facility] Emergency [facility] Emergency Department [address] [place] [address] Fei Murray MD Upper respiratory tract infection, unspecified type (Primary Dx); Peripheral edema Discharge Disposition: Discharge to home or self care 08/20/2024 2:24 AM ENVELOPE SEALER - 08/20/2024 4:35 AM [facility] Emergency [facility] Emergency Department [address] [place] [address] Discharge Disposition: Left without being seen 08/18/2024 5:58 AM ENVELOPE SEALER - 08/18/2024 7:26 AM ENVELOPE SEALER Emergency [facility] Emergency Department 1 [place] [phone] Lorenzo Peña MD Peripheral edema (Primary Dx) Discharge Disposition: Discharge to home or self care 08/17/2024 3:00 PM ENVELOPE SEALER Diagnostic [facility] Orthopaedic Surgery [address] [facility] 6th [place] [address] [place] [phone] Luciano Nelson MD Encounter for examination of normal volunteer in research study 08/15/2024 12:23 AM ENVELOPE SEALER - 08/15/2024 1:52 AM [facility] Emergency [facility] Emergency Department [address] [place] [address] [place] (Primary Dx); Swelling Discharge Disposition: Discharge to home or self care 08/12/2024 8:23 PM ENVELOPE SEALER - 08/14/2024 1:56 PM ENVELOPE SEALER Hospital Encounter [facility] [address] [place] [phone] Batsheva Portillo MD Li, MD Lucille Garcia, MD Russ COVID-19 (Primary Dx); Recurrent syncope; Chest pain, unspecified type; Anemia, unspecified type; Elevated AST (SGOT); Elevated ALT measurement; Nonintractable headache, unspecified chronicity pattern, unspecified headache type Discharge Disposition: Discharge to home or self care 08/11/2024 3:49 AM ENVELOPE SEALER - 08/11/2024 4:35 AM [facility] Emergency [facility] Emergency Department [address] [place] [phone] Abdiel Hawkins MD Coronavirus infection (Primary Dx); Lightheadedness Discharge Disposition: Discharge to home or self care 08/08/2024 9:58 PM ENVELOPE SEALER - 08/08/2024 11:12 PM [facility] Emergency Department [address] [place] [phone] Karlo Gatica MD COVID (Primary Dx); Dehydration; Syncope, unspecified syncope type Discharge Disposition: Discharge to home or self care 08/07/2024 [facility] Eligibility Review [facility] Community Health Worker [facility] [address] [place] [address] Darlene Zuirta MT 08/06/2024 9:50 AM ENVELOPE SEALER - 08/06/2024 12:23 PM [facility] Emergency Department [address] [place] [phone] Jassi Daniels MD Coronavirus infection (Primary Dx) Discharge Disposition: Discharge to home or self care 08/02/2024 12:46 PM ENVELOPE SEALER - 08/02/2024 1:16 PM [facility] Emergency Department [address] [place] [phone] Gee Moran MD Chronic right shoulder pain (Primary Dx) Discharge Disposition: Discharge to home or self care 08/01/2024 2:00 AM ENVELOPE SEALER - 08/01/2024 3:17 AM [facility] Emergency [facility] Emergency Department [address] [place] [phone] Chronic right shoulder pain (Primary Dx); Encounter for medication refill Discharge Disposition: Discharge to home or self care 07/29/2024 9:38 PM ENVELOPE SEALER - 07/29/2024 11:38 PM [facility] Emergency Department [address] [place] [phone] Cindy Hendricks MD Injury of right rotator cuff, subsequent encounter (Primary Dx) Discharge Disposition: Discharge to home or self care 07/24/2024 [facility] [address] [facility] [address] [place] [phone] Cherie Ramirez [facility] Social Work Services 07/24/2024 1:00 PM ENVELOPE SEALER [facility] [address] [facility] 4th [address] [place] [phone] Right anterior shoulder pain (Primary Dx) 07/19/2024 Documentation [facility] [address] [facility] [address] [place] [address] Cherie Ramirez, [facility] Social Work Services 06/26/[address] [facility] Orthopaedic Surgery [facility] 6th [place] [address] [place] [address] Michael Corona MD Encounter for examination of [...] Insurance Qualify for In Clinic PT? 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 Assessment & Plan (08/09/2019 7:07 PM ENVELOPE SEALER): Patient presents with complaints of ongoing abdominal [...] 07/29/2019 Assessment & Plan (08/10/2019 10:48 AM ENVELOPE SEALER): Ongoing nausea post cholecystectomy w/o vomiting. Tolerating PO, no emesis overnight - prn zofran - ADAT Assessment & Plan (08/09/2019 7:17 PM ENVELOPE SEALER): Ongoing nausea post cholecystectomy w/o vomiting. - prn zofran - ADAT Calculus of gallbladder 07/29/2019 Dizziness 07/29/2019 Assessment & Plan (08/10/2019 10:59 AM ENVELOPE SEALER): Patient describes dizziness related to uncontrolled abdominal pain. He endorses pain starts in RQ and moves to head . He then becomes diaphoretic, nauseous. Improved this AM. Likely vasovagal, hemodynamically stable. - discussed proper hydration and symptom management Assessment & Plan (08/09/2019 7:16 PM ENVELOPE SEALER): Patient describes dizziness related to uncontrolled abdominal pain. He endorses pain starts in RQ and moves to head . He then becomes diaphoretic, nauseous. - likely vasovagal, s/p 1 L LR in ED. CTM Intractable right upper quadrant abdominal pain 07/29/2019 Overview (08/01/2019): Added automatically from request for surgery [id number] Adjustment disorder with depressed mood in remis [...] drink = 0.6 oz pur e alcohol) [facility] Utilities Answer Date Recorded In the past 12 months has e electric, gas, oil, or water [employer] threatened to shut off services in your home? Patient declined 08/14/2024 Social Connection and Isolation Panel [NHANES] A nswer Date Recorded In a typical week, how many times do you talk on the phone with family, friends, or neighbors? Patient declined 08/14/2024 How often do you get togethe r with friends or relatives? Patient declined 08/14/2024 How often do you attend latter-day or pentecostal serv ices? Patient declined 08/14/2024 Do you belong to any clubs o r organizations such as latter-day groups, unions, fraternal or athletic groups, or [...] on file Legal Sex Male 9:25 PM ENVELOPE SEALER Gender Identity Not on file Sexual Orientation Straight 11/18/2022 7: 07 PM CDT Last Filed Vital Signs Vital Sign Reading Time Taken Comments Blood Pressure 109/61 09/20/2024 3:48 PM ENVELOPE SEALER Pulse 86 09/20/2024 3:48 PM ENVELOPE SEALER Temperature 37 C (98.6 F) 09/20/2024 3:48 PM ENVELOPE SEALER Respiratory Rate 18 09/20/2024 3:48 PM ENVELOPE SEALER Oxygen Saturation 99% 09/20/2024 3:48 PM ENVELOPE SEALER Inhaled Oxygen Concentration - - Weight 74.8 kg (165 lb) 09/20/2024 3:48 PM ENVELOPE SEALER Height 172.7 cm (5' 8 ) 09/20/2024 1:22 AM ENVELOPE SEALER Body Mass Index 25.09 09/20/2024 1:22 AM ENVELOPE SEALER Plan of Treatment Not on file Procedures Procedure Name Priority Date/Time Associated Diagnosis Comments INFLUENZA A/B, RSV, AND COVID-19 PCR STAT 09/20/2024 1:25 AM ENVELOPE SEALER PRO B-TYPE NATRIURETIC PEPTIDE Add-On 09/18/2024 1:35 PM ENVELOPE SEALER EGFR STAT 09/18/2024 1:35 PM ENVELOPE SEALER DIFFERENTIAL AUTO STAT 09/18/2024 1:3 5 PM ENVELOPE SEALER COMPREHENSIVE METABOLIC PANEL STAT 09/18/2024 1:35 PM ENVELOPE SEALER CBC WITH AUTO DIFFERENTIAL STAT 09/18/2024 1:35 PM ENVELOPE SEALER EGFR STAT 09/11/2024 9:10 PM ENVELOPE SEALER DIFFERENTIAL AUTO STAT 09/11/2024 9:1 0 PM ENVELOPE SEALER PRO B-TYPE NATRIURETIC PEPTIDE STAT 09/11/2024 9:10 PM ENVELOPE SEALER COMPREHENSIVE METABOLIC PANEL STAT 09/11/2024 9:10 PM ENVELOPE SEALER CBC WITH AUTO DIFFERENTIAL STAT 09/11/2024 9:10 PM ENVELOPE SEALER EGFR STAT 09/07/2024 2:59 AM ENVELOPE SEALER DIFFERENTIAL AUTO STAT 09/07/2024 2:5 9 AM ENVELOPE SEALER BASIC METABOLIC PANEL STAT 09/07/2024 2:59 AM ENVELOPE SEALER CBC WITH AUTO DIFFERENTIAL STAT 09/07/2024 2:59 AM ENVELOPE SEALER US VEIN DUPLEX LOWER EXTREMITY BILATERAL COMPLETE ED 09/03/2024 7:37 PM ENVELOPE SEALER MRI SHOULDER RIGHT WO CONTRAST Schedule Routine, Read Routine (OP Routine) 09/02/2024 9:06 AM ENVELOPE SEALER Right anterior shoulder pain XR ANKLE RIGHT 2 VIEWS ED 09/01/2024 9:33 PM ENVELOPE SEALER XR TIBIA FIBULA RIGHT2 VIEWS ED 09/01/2024 8:37 AM ENVELOPE SEALER XR ANKLE RIGHT 3 OR MORE VIEWS ED 08/31/2024 10:35 PM ENVELOPE SEALER XR FOOT RIGHT 3 OR MORE VIEWS ED 08/31/2024 10:34 PM ENVELOPE SEALER EGFR STAT 08/23/2024 2:33 AM ENVELOPE SEALER DIFFERENTIAL AUTO STAT 08/23/2024 2:3 3 AM ENVELOPE SEALER PRO B-TYPE NATRIURETIC PEPTIDE STAT 08/23/2024 2:33 AM ENVELOPE SEALER COMPREHENSIVE METABOLIC PANEL STAT 08/23/2024 2:33 AM ENVELOPE SEALER CBC WITH AUTO DIFFERENTIAL STAT 08/23/2024 2:33 AM ENVELOPE SEALER SEPSIS LACTATE WITH REFLEX Routine 08/23/2024 2:33 AM ENVELOPE SEALER BLOOD CULTURE Routine 08/23/2024 2:33 AM ENVELOPE SEALER BLOOD CULTURE Routine 08/23/2024 2:33 AM ENVELOPE SEALER ECG 12-LEAD STAT 08/23/2024 2:32 AM ENVELOPE SEALER EGFR STAT 08/21/2024 12:35 AM ENVELOPE SEALER DIFFERENTIAL AUTO STAT 08/21/2024 12: 35 AM ENVELOPE SEALER CRP (ACUTE PHASE) STAT 08/21/2024 12: 35 AM ENVELOPE SEALER ERYTHROCYTE SEDIMENTATION RATE STAT 08/21/2024 12:35 AM ENVELOPE SEALER BASIC METABOLIC PANEL STAT 08/21/2024 12:35 AM ENVELOPE SEALER CBC WITH AUTO DIFFERENTIAL STAT 08/21/2024 12:35 AM ENVELOPE SEALER STREPTOCOCCUS GROUP A PCR STAT 08/20/2024 9:19 AM ENVELOPE SEALER RESPIRATORY PATHOGEN PANEL Routine 08/20/2024 9:19 AM ENVELOPE SEALER D-DIMER, QUANTITATIVE STAT 08/15/2024 1:08 AM ENVELOPE SEALER PRO B-TYPE NATRIURETIC PEPTIDE STAT 08/14/2024 9:59 PM ENVELOPE SEALER EGFR STAT 08/14/2024 9:59 PM ENVELOPE SEALER DIFFERENTIAL AUTO STAT 08/14/2024 9:5 9 PM ENVELOPE SEALER LIPASE STAT 08/14/2024 9:59 PM ENVELOPE SEALER COMPREHENSIVE METABOLIC PANEL STAT 08/14/2024 9:59 PM ENVELOPE SEALER CBC WITH AUTO DIFFERENTIAL STAT 08/14/2024 9:59 PM ENVELOPE SEALER TRANSTHORACIC ECHO (TTE) COMPLETE W DOPPLER/CF WO CONTRAST Routine 08/14/2024 11:39 AM ENVELOPE SEALER HEPATIC FUNCTION PANEL Routine 08/13/2024 5:30 AM ENVELOPE SEALER EGFR Routine 08/13/2024 5:30 AM ENVELOPE SEALER CBC WITHOUT DIFFERENTIAL Routine 08/13/2024 5:30 AM ENVELOPE SEALER PHOSPHORUS Routine 08/13/2024 5:30 AM ENVELOPE SEALER MAGNESIUM Routine 08/13/2024 5:30 AM ENVELOPE SEALER BASIC METABOLIC PANEL Routine 08/13/2024 5:30 AM ENVELOPE SEALER FERRITIN Routine 08/13/2024 5:30 AM ENVELOPE SEALER DRUGS OF ABUSE SCREEN, URINE WITH REFLEX CONFIRMATION Routine 08/13/2024 12:15 AM ENVELOPE SEALER URINALYSIS AND REFLEX TO MICROSCOPIC AND CULTURE STAT 08/13/2024 12:[address] CHEST PE W CONTRAST ED 08/12/2024 11:48 PM ENVELOPE SEALER US VEIN DUPLEX LOWER EXTREMITY BILATERAL COMPLETE ED 08/12/2024 11:46 PM ENVELOPE SEALER US RUQ ED 08/12/2024 11:38 PM ENVELOPE SEALER ADD ON LAB TEST Add-On 08/12/2024 10:[address] HEAD AND CERVICAL SPINE WO CONTRAST ED 08/12/2024 10:20 PM ENVELOPE SEALER D-DIMER, QUANTITATIVE STAT 08/12/2024 10:05 PM ENVELOPE SEALER PROTIME-INR STAT 08/12/2024 10:05 PM ENVELOPE SEALER ADD ON LAB TEST Add-On 08/12/2024 9:53 PM ENVELOPE SEALER ADD ON LAB TEST Add-On 08/12/2024 9:53 PM ENVELOPE SEALER ADD ON LAB TEST Add-On 08/12/2024 9:53 PM ENVELOPE SEALER ADD ON LAB TEST Add-On 08/12/2024 9:53 PM ENVELOPE SEALER ADD ON LAB TEST Add-On 08/12/2024 9:53 PM ENVELOPE SEALER ADD ON LAB TEST Add-On 08/12/2024 9:53 PM ENVELOPE SEALER ADD ON LAB TEST Add-On 08/12/2024 9:53 PM ENVELOPE SEALER ETHANOL STAT 08/12/2024 9:52 PM ENVELOPE SEALER TROPONIN T HIGH-SENSITIVITY 2-HOUR Timed 08/12/2024 9:52 PM ENVELOPE SEALER ACETAMINOPHEN LEVEL STAT 08/12/2024 9 :13 PM ENVELOPE SEALER HEPATITIS PANEL, ACUTE STAT 08/12/2024 9:13 PM ENVELOPE SEALER PRO B-TYPE NATRIURETIC PEPTIDE STAT 08/12/2024 8:08 PM ENVELOPE SEALER THYROID FUNCTION CASCADE STAT 08/12/2024 8:08 PM ENVELOPE SEALER FOLATE STAT 08/12/2024 8:08 PM ENVELOPE SEALER IRON PROFILE W/ IBC STAT 08/12/2024 8 :08 PM ENVELOPE SEALER VITAMIN B12 STAT 08/12/2024 8:08 PM ENVELOPE SEALER MAGNESIUM STAT 08/12/2024 8:08 PM ENVELOPE SEALER PHOSPHORUS STAT 08/12/2024 8:08 PM ENVELOPE SEALER EGFR STAT 08/12/2024 8:08 PM ENVELOPE SEALER DIFFERENTIAL AUTO STAT 08/12/2024 8:0 8 PM ENVELOPE SEALER TROPONIN T HIGH-SENSITIVITY SERIES (BASELINE, 2HR, 4HR, 6HR) STAT 08/12/2024 8:08 PM ENVELOPE SEALER COMPREHENSIVE METABOLIC PANEL STAT 08/12/2024 8:08 PM ENVELOPE SEALER CBC WITH AUTO DIFFERENTIAL STAT 08/12/2024 8:08 PM ENVELOPE SEALER XR CHEST PA LATERAL 2 VIEWS ED 08/12/2024 7:27 PM ENVELOPE SEALER ECG 12-LEAD STAT 08/12/2024 6:48 PM ENVELOPE SEALER XR CHEST PA LATERAL 2 VIEWS ED 08/11/2024 2:02 AM ENVELOPE SEALER ECG 12-LEAD STAT 08/11/2024 1:43 AM ENVELOPE SEALER XR CHEST PA LATERAL 2 VIEWS ED 08/08/2024 10:[address] HEAD WO CONTRAST ED 08/08/2024 1 0:34 PM ENVELOPE SEALER ECG 12-LEAD STAT 08/08/2024 8:56 PM ENVELOPE SEALER RESPIRATORY PATHOGEN PANEL Routine 08/06/2024 9:59 AM ENVELOPE SEALER from Last 3 Months Results * Influenza A/B, RSV, and COVID-19 PCR Nasopharyngeal (09/20/2024 1:25 AM ENVELOPE SEALER) COVID-19 RNA Negative Negative Influenza A RNA Negative Negative [facility] ([place]) Influenza B RNA Negative Negative [facility] RSV RNA Negative Negative [facility] Comment: Interpretive data: Testing performed by [facility]. This test is performed using the [employer] Xpert Xpress CoV-2/Flu/RSV plus assay. This is a multiplex, real- time reverse transcriptase PCR assay intended for the qualitative detection of nucleic acid from SARS-CoV-2, influenza A, influenza B, and respiratory syncytial virus. This assay has been cleared by the [place] Food and Drug administration. The performance characteristics have been verified by the [facility]. Results must be considered in the clinical context, and a negative result does not rule out infection. Interpretive Data last revised 2023 Nasopharyngeal 09/20/2024 1: 25 AM ENVELOPE SEALER 09/20/2024 1:29 AM ENVELOPE SEALER Narrative [facility] ([place]) - 09/20/2024 2:07 AM ENVELOPE SEALER Is the Patient experiencing symptoms consistent with COVID?->Yes us Cesar Chiang MD LAB MICROBIOLOGY - GENERAL ORD ERABLES Final Result [facility] ([facility]) 1 [facility] Department [place] [address] * eGFR (09/18/2024 1:35 PM ENVELOPE SEALER) eGFR >90 >=60 mL/min/1. 73 m2 Comment: [...] last reviewed 2021. Blood 09/18/2024 1:35 PM ENVELOPE SEALER 09/18/2024 1:38 PM ENVELOPE SEALER us Megan Dill MD LAB BLOOD ORDERABLE S Final Result [facility] ([facility]) 1 [facility] Department of Laboratories [place], [place] [id number] * Differential, auto (09/18/2024 1:35 PM ENVELOPE SEALER) Neutrophil abs 4.8 1.5 - 6.5 K/cumm [...] revised on 2017. Blood 09/18/2024 1:35 PM ENVELOPE SEALER 09/18/2024 1:38 PM ENVELOPE SEALER us Megan Dill MD LAB BLOOD ORDERABLE S Final Result [facility] ([facility]) 1 [facility] Department [place] [address] * Pro B-type natriuretic peptide (09/18/2024 1:35 PM ENVELOPE SEALER) NT-proBNP <36 <=300 pg/mL Comment: Interpretive Comments: [...] Revised Date: 2018. Blood 09/18/2024 1:35 PM ENVELOPE SEALER 09/18/2024 6:28 PM ENVELOPE SEALER us Jossue Cox IMPRESS ASSOCIATE LAB BLOOD ORDERABLES Final Result [facility] ([facility]) 1 [facility] Department of Laboratories [place], [place] [id number] * CBC with auto differential (09/18/2024 1:35 PM ENVELOPE SEALER) WBC 6.6 3.8 - 9.9 K/cumm Hgb 13.3 13.0 - 17.5 g/dL [facility] ([place]) Hct 40.3 38.9 - 50.3 % [facility] ([place] Plt 210 150 - 400 K/cumm [facility] ([place] MPV 10.1 9.1 - 12.3 fL [facility] ([place] RBC 4.49 4.30 - 5.80 M/cumm [facility] ([place]) MCV 89.8 81.3 - 96.4 fL [facility] MCH 29.6 27.1 - 33.3 pg [facility] ([place]) MCHC 33.0 32.3 - 35.7 g/dL [facility] RDW CV 12.2 11.1 - 14.9 % [facility] RDW SD 40.1 35.7 - 48.1 fL [facility] ([place]) NRBC abs 0.00 0.00 - 0.01 K/cumm [facility] ([place]) Blood 09/18/2024 1:35 PM ENVELOPE SEALER 09/18/2024 1:38 PM ENVELOPE SEALER us Megan Dill MD LAB BLOOD ORDERABLE S Final Result [facility] (JENNIFER) 1 [facility] [place] [address] * Comprehensive metabolic panel (09/18/2024 1:35 PM ENVELOPE SEALER) Sodium 140 135 - 145 mmol/L Potassium, pl 4.3 3.3 - 4.9 mmol/L [facility] (JENNIFER) Chloride 100 97 - 110 mmol/L [facility] (JENNIFER) CO2 29 22 - 32 mmol/L [facility] ([facility]ENN[facility]) Anion gap 10 2 - 15 mmol/L [facility] (JENNIFER) BUN 21 6 - 25 mg/dL [facility] (JENNIFER) Creatinine 1.02 0.80 - 1.30 mg/dL [facility] (JENNIFER) Glucose 72 70 - 199 mg/dL [facility] (JENNIFER) Comment: Interpretive Data Fasting glucose [...] Hemolyzed S pecimen Blood 09/18/2024 1:35 PM ENVELOPE SEALER 09/18/2024 1:38 PM ENVELOPE SEALER us Megan Dill MD LAB BLOOD ORDERABLE S Final Result JADA [facility] (JENNIFER) 1 [facility] Department [place] [address] * eGFR (09/11/2024 9:10 PM ENVELOPE SEALER) eGFR >90 >=60 mL/min/1. 73 m2 Comment: [...] last reviewed 2021. Blood 09/11/2024 9:10 PM ENVELOPE SEALER 09/11/2024 9:30 PM ENVELOPE SEALER us Salena Crawley MD LAB BLOOD ORDERABLES Fin al Result [facility] [address] Department [place] [address] * Differential, auto (09/11/2024 9:10 PM ENVELOPE SEALER) Neutrophil abs 3.8 1.5 - 6.5 K/cumm Imm gran abs 0.0 0.0 - 0.1 K/cumm [facility] Lymphocyte abs 1.1 0.8 - 3.3 K/cumm [facility] Monocyte abs 0.5 0.2 - 0.8 K/cumm [facility] Eosinophil abs 0.2 0.0 - 0.5 K/cumm [facility] Basophil abs 0.0 0.0 - 0.1 K/cumm [facility] Neutrophil pct 67.2 % [facility] Comment: Interpretive Data Percent cell count reference ranges are not reported, since discordance with absolute values may lead to misinterpretation of CBC data. Current Interpretive Data was last revised on 2017. Imm gran pct 0.4 % [facility] Comment: Interpretive Data Percent cell count reference ranges are not reported, since discordance with absolute values may lead to misinterpretation of CBC data. Current Interpretive Data was last revised on 2017. Lymphocyte pct 20.1 % [facility] Comment: Interpretive Data Percent cell count reference ranges are not reported, since discordance with absolute values may lead to misinterpretation of CBC data. Current Interpretive Data was last revised on 2017. Monocyte pct 8.6 % [facility] Comment: Interpretive Data Percent cell count reference ranges are not reported, since discordance with absolute values may lead to misinterpretation of CBC data. Current Interpretive Data was last revised on 2017. Eosinophil pct 3.2 % [facility] Comment: Interpretive Data Percent cell count reference ranges are not reported, since discordance with absolute values may lead to misinterpretation of CBC data. Current Interpretive Data was last revised on 2017. Basophil pct 0.5 % [facility] Comment: Interpretive Data Percent cell count reference ranges are not reported, since discordance with absolute values may lead to misinterpretation of CBC data. Current Interpretive Data was last revised on 2017. Blood 09/11/2024 9:10 PM ENVELOPE SEALER 09/11/2024 9:30 PM ENVELOPE SEALER us Salena Crawley MD LAB BLOOD ORDERABLES Fin al Result JADA [facility] [address] Department [place] [address] * Pro B-type natriuretic peptide (09/11/2024 9:10 PM ENVELOPE SEALER) NT-proBNP <36 <=300 pg/mL Comment: Interpretive Comments: [...] Revised Date: 2018. Blood 09/11/2024 9:10 PM ENVELOPE SEALER 09/11/2024 9:30 PM ENVELOPE SEALER Salena Crawley MD LAB BLOOD ORDERABLES Fin al Result Performing Organization Address City/[facility]/ZIP Co de Phone Number [facility] [address] [employer] [place], [place] [id number] * CBC with auto differential (09/11/2024 9:10 PM ENVELOPE SEALER) WBC 5.7 3.8 - 9.9 K/cumm Hgb 13.1 13.0 - 17.5 g/dL [facility] Hct 40.0 38.9 - 50.3 % [facility] Plt 184 150 - 400 K/cumm [facility] MPV 10.6 9.1 - 12.[address] [facility] RBC 4.43 4.30 - 5.80 M/cumm [facility] MCV 90.3 81.3 - 96.[address] [facility] MCH 29.6 27.1 - 33.[address] [facility] MCHC 32.8 32.3 - 35.7 g/dL [facility] RDW CV 12.7 11.1 - 14.9 % [facility] RDW SD 41.7 35.7 - 48.[address] [facility] NRBC abs 0.00 0.00 - 0.01 K/cumm [facility] Blood 09/11/2024 9:10 PM ENVELOPE SEALER 09/11/2024 9:30 PM ENVELOPE SEALER Salena Crawley MD LAB BLOOD ORDERABLES Fin al Result Performing Organization Address City/[facility]/ZIP Co de Phone Number [facility] [address] Department [employer] [place], [place] [id number] * (ABNORMAL) Comprehensive metabolic panel (09/11/2024 9:10 PM ENVELOPE SEALER) Pathologist [facility] Sodium 142 135 - 145 mmol/L Potassium, pl 4.3 3.3 - 4.9 mmol/L [facility] Chloride 101 97 - 110 mmol/L [facility] CO2 28 22 - 32 mmol/L [facility] Anion gap 13 2 - 15 mmol/L [facility] BUN 28(H) 6 - 25 mg/dL [facility] Creatinine 0.89 0.80 - 1.30 mg/dL [facility] Glucose 113 70 - 199 mg/dL [facility] Comment: Interpretive Data Fasting glucose [...] 2022. Calcium 9.2 8.5 - 10.3 mg/dL [facility] Bilirubin, total 0.8 0.1 - 1.2 mg/dL [facility] Protein, pl 6.7 6.5 - 8.5 g/dL [facility] Albumin 4.0 3.5 - 5.0 g/dL [facility] Alk phos 79 40 - 130 Units/L [facility] ALT 62(H) 7 - 55 Units/L [facility] AST 40 10 - 50 Units/L [facility] Comment:Slightly Hemolyzed S pecimen Blood 09/11/2024 9:10 PM ENVELOPE SEALER 09/11/2024 9:30 PM ENVELOPE SEALER us Salena Crawley MD LAB BLOOD ORDERABLES Fin al Result [facility] [address] Department [place] [address] * eGFR (09/07/2024 2:59 AM ENVELOPE SEALER) eGFR >90 >=60 mL/min/1. 73 m2 Comment: [...] last reviewed 2021. Blood 09/07/2024 2:59 AM ENVELOPE SEALER 09/07/2024 3:02 AM ENVELOPE SEALER us Jair Armendariz MD LAB BLOOD ORDERABLES Final Result [facility] [address] [facility] Department [place] [address] * Differential, auto (09/07/2024 2:59 AM ENVELOPE SEALER) Neutrophil abs 3.0 1.5 - 6.5 K/cumm Imm gran abs 0.0 0.0 - 0.1 K/cumm [facility] Lymphocyte abs 2.1 0.8 - 3.3 K/cumm [facility] Monocyte abs 0.4 0.2 - 0.8 K/cumm [facility] Eosinophil abs 0.2 0.0 - 0.5 [facility] Basophil abs 0.0 0.0 - 0.1 K/cumm [facility] Neutrophil pct 51.2 % [facility] Comment: Interpretive Data Percent cell count reference ranges are not reported, since discordance with absolute values may lead to misinterpretation of CBC data. Current Interpretive Data was last revised on 2017. Imm gran pct 0.3 % [facility] Comment: Interpretive Data Percent cell count reference ranges are not reported, since discordance with absolute values may lead to misinterpretation of CBC data. Current Interpretive Data was last revised on 2017. Lymphocyte pct 36.9 % [facility] Comment: Interpretive Data Percent cell count reference ranges are not reported, since discordance with absolute values may lead to misinterpretation of CBC data. Current Interpretive Data was last revised on 2017. Monocyte pct 6.9 % [facility] Comment: Interpretive Data Percent cell count reference ranges are not reported, since discordance with absolute values may lead to misinterpretation of CBC data. Current Interpretive Data was last revised on 2017. Eosinophil pct 4.0 % [facility] Comment: Interpretive Data Percent cell count reference ranges are not reported, since discordance with absolute values may lead to misinterpretation of CBC data. Current Interpretive Data was last revised on 2017. Basophil pct 0.7 % [facility] Comment: Interpretive Data Percent cell count reference ranges are not reported, since discordance with absolute values may lead to misinterpretation of CBC data. Current Interpretive Data was last revised on 2017. Blood 09/07/2024 2:59 AM ENVELOPE SEALER 09/07/2024 3:02 AM ENVELOPE SEALER us Jair Armendariz MD LAB BLOOD ORDERABLES Final Result [facility] [address] [facility] Department [place] [address] * (ABNORMAL) CBC with auto differential (09/07/2024 2:59 AM ENVELOPE SEALER) WBC 5.8 3.8 - 9.9 K/cumm Hgb 12.3(L) 13.0 - 17.5 g/dL [facility] Hct 37.2(L) 38.9 - 50.3 % [facility] Plt 163 150 - 400 K/cumm [facility] MPV 10.4 9.1 - 12.3 fL [facility] RBC 4.17(L) 4.30 - 5.80 M/cumm [facility] MCV 89.2 81.3 - 96.4 fL [facility] MCH 29.5 27.1 - 33.3 pg [facility] MCHC 33.1 32.3 - 35.7 g/dL [facility] RDW CV 12.6 11.1 - 14.9 % [facility] RDW SD 41.1 35.7 - 48.1 fL [facility] NRBC abs 0.00 0.00 - 0.01 K/cumm [facility] Blood 09/07/2024 2:59 AM ENVELOPE SEALER 09/07/2024 3:02 AM ENVELOPE SEALER Jair Armendariz MD LAB BLOOD ORDERABLES Final Result [facility] [address] [facility] Department [place] [address] * Basic metabolic panel (09/07/2024 2:59 AM ENVELOPE SEALER) Sodium 143 135 - 145 mmol/L Potassium, pl 4.4 3.3 - 4.9 mmol/L [facility] Chloride 109 97 - 110 mmol/L [facility] CO2 25 22 - 32 mmol/L [facility] Anion gap 9 2 - 15 mmol/L [facility] BUN 24 6 - 25 mg/dL [facility] Creatinine 0.87 0.80 - 1.30 mg/dL [facility] Glucose 86 70 - 199 mg/dL [facility] Comment: Interpretive Data Fasting glucose [...] 2022. Calcium 9.1 8.5 - 10.3 mg/dL [facility] Blood 09/07/2024 2:59 AM ENVELOPE SEALER 09/07/2024 3:02 AM ENVELOPE SEALER Jair Armendariz MD LAB BLOOD ORDERABLES Final Result [facility] [address] [facility] Department [place] [address] * US Vein Duplex Lower Extremity Bilateral Complete (09/03/2024 7:37 PM ENVELOPE SEALER) Anatomical Region Laterality Modality Vascular Bilateral Ultrasound 09/04/2024 2:26 PM ENVELOPE SEALER Impressions 09/04/2024 2:26 PM ENVELOPE SEALER 1. No evidence of DVT in the lower extremities bilaterally. 2. Evidence of pulsatile venous flow. This may suggest increased intravascular volume or right-sided valvular heart disease. Clinical correlation suggested. 3. No change when compared to previous studies. Electronically signed by: Lv Smart M.D. Narrative 09/04/2024 2:26 PM ENVELOPE SEALER Lower Extremity Vein Duplex Bilateral DATE: 09/03/2024 [...] studies. Electronically signed by: Lv Smart M.D. [facility] Samantha Stanley MD IM US PROCEDURES Final Re sult * MRI Shoulder Right WO Contrast (09/02/2024 9:06 AM ENVELOPE SEALER) Anatomical Region Laterality Modality Upper Extremities Right Magnetic Reson ance 09/02/2024 11:0 8 AM ENVELOPE SEALER Impressions 09/02/2024 12:42 PM ENVELOPE SEALER 1. Minimal right rotator cuff tendinopathy without [...] Gudelia Berger MD Narrative 09/02/2024 12:42 PM ENVELOPE SEALER EXAMINATION: 1. MRI right shoulder without contrast [...] Ankle Right 2 Views (09/01/2024 9:33 PM ENVELOPE SEALER) Anatomical Region Laterality Modality Lower Extremities, Ankle Right Compute d Radiography 09/02/2024 8:13 AM ENVELOPE SEALER Impressions 09/02/2024 8:13 AM ENVELOPE SEALER There is mild swelling about the right ankle. There is a fracture of the base of 5th metacarpal, similar to prior. No additional fractures. The joints are normal. Electronically signed by: Brice Mantilla M.D. Narrative 09/02/2024 8:13 AM ENVELOPE SEALER EXAMINATION: XR ANKLE RIGHT 2 VIEWS HISTORY: [...] Fibula Right 2 views (09/01/2024 8:37 AM ENVELOPE SEALER) Anatomical Region Laterality Modality Lower Extremities, Lower Leg Right Com puted Radiography 09/01/2024 8:45 AM ENVELOPE SEALER Impressions 09/01/2024 8:45 AM ENVELOPE SEALER No acute fracture of the tibia or fibula. Alignment is normal. Electronically signed by: Greg Joy M.D. Narrative 09/01/2024 8:45 AM ENVELOPE SEALER EXAMINATION: XR TIBIA FIBULA RIGHT2 VIEWS HISTORY: [...] 3 or More Views (08/31/2024 10:35 PM ENVELOPE SEALER) Anatomical Region Laterality Modality Lower Extremities, Ankle Right Compute d Radiography 09/01/2024 11:1 6 AM ENVELOPE SEALER Impressions 09/01/2024 11:16 AM ENVELOPE SEALER Comparison is made to a prior study [...] Ness Liz M.D. Narrative 09/01/2024 11:16 AM ENVELOPE SEALER EXAMINATION: XR ANKLE RIGHT 3 OR MORE [...] 3 or More Views (08/31/2024 10:34 PM ENVELOPE SEALER) Anatomical Region Laterality Modality Lower Extremities, Foot Right Computed Radiography 09/01/2024 11:1 6 AM ENVELOPE SEALER Impressions 09/01/2024 11:16 AM ENVELOPE SEALER Comparison is made to a prior study [...] Ness Liz M.D. Narrative 09/01/2024 11:16 AM ENVELOPE SEALER EXAMINATION: XR ANKLE RIGHT 3 OR MORE [...] Sepsis Lactate w/ Reflex (08/23/2024 2:33 AM ENVELOPE SEALER) Sepsis Lactate 0.7 0.7 - 2.0 mmol/L Blood 08/23/2024 2:33 AM ENVELOPE SEALER 08/23/2024 2:46 AM ENVELOPE SEALER Salena Crawley MD LAB BLOOD ORDERABLES Fin al Result Performing Organization Address [facility] de Phone Number JADA [facility] [address] [place] [address] * eGFR (08/23/2024 2:33 AM ENVELOPE SEALER) eGFR >90 >=60 mL/min/1. 73 m2 Comment: [...] reviewed 2021. Blood 08/23/2024 2:3 3 AM ENVELOPE SEALER 08/23/2024 3:24 AM ENVELOPE SEALER Salena Crawley MD LAB BLOOD ORDERABLES Fin al Result Performing Organization Address City/[facility] Co de Phone Number [facility] [address] [place] [address] * Differential, auto (08/23/2024 2:33 AM ENVELOPE SEALER) Neutrophil abs 3.1 1.5 - 6.5 K/cumm Imm gran abs 0.0 0.0 - 0.1 K/cumm [facility] Lymphocyte abs 2.0 0.8 - 3.3 K/cumm [facility] Monocyte abs 0.5 0.2 - 0.8 K/cumm [facility] Eosinophil abs 0.2 0.0 - 0.5 K/cumm [facility] Basophil abs 0.1 0.0 - 0.1 K/cumm [facility] Neutrophil pct 53.2 % [facility] Comment: Interpretive Data Percent cell count reference ranges are not reported, since discordance with absolute values may lead to misinterpretation of CBC data. Current Interpretive Data was last revised on 2017. Imm gran pct 0.2 % [facility] Comment: Interpretive Data Percent cell count reference ranges are not reported, since discordance with absolute values may lead to misinterpretation of CBC data. Current Interpretive Data was last revised on 2017. Lymphocyte pct 34.0 % [facility] Comment: Interpretive Data Percent cell count reference ranges are not reported, since discordance with absolute values may lead to misinterpretation of CBC data. Current Interpretive Data was last revised on 2017. Monocyte pct 7.8 % [facility] Comment: Interpretive Data Percent cell count reference ranges are not reported, since discordance with absolute values may lead to misinterpretation of CBC data. Current Interpretive Data was last revised on 2017. Eosinophil pct 3.8 % [facility] Comment: Interpretive Data Percent cell count reference ranges are not reported, since discordance with absolute values may lead to misinterpretation of CBC data. Current Interpretive Data was last revised on 2017. Basophil pct 1.0 % [facility] Comment: Interpretive Data Percent cell count reference ranges are not reported, since discordance with absolute values may lead to misinterpretation of CBC data. Current Interpretive Data was last revised on 2017. Blood 08/23/2024 2:33 AM ENVELOPE SEALER 08/23/2024 3:24 AM ENVELOPE SEALER Salena Crawley MD LAB BLOOD ORDERABLES Fin al Result JADA [facility] [address] Department [place] [address] * Pro B-type natriuretic peptide (08/23/2024 2:33 AM ENVELOPE SEALER) NT-proBNP <36 <=300 pg/mL Comment: Interpretive Comments: [...] Date: 2018. Blood 08/23/2024 2:3 3 AM ENVELOPE SEALER 08/23/2024 3:24 AM ENVELOPE SEALER us Salena Crawley MD LAB BLOOD ORDERABLES Fin al Result Performing Organization Address [facility] Co de Phone Number [facility] [address] [place] [place] [address] * (ABNORMAL) CBC with auto differential (08/23/2024 2:33 AM ENVELOPE SEALER) WBC 5.8 3.8 - 9.9 K/cumm Hgb 12.9(L) 13.0 - 17.5 g/dL [facility] Hct 39.2 38.9 - 50.3 % [facility] Plt 205 150 - 400 K/cumm [facility] MPV 10.8 9.1 - 12.[address] [facility] RBC 4.39 4.30 - 5.80 M/cumm [facility] MCV 89.3 81.3 - 96.[address] [facility] MCH 29.4 27.1 - 33.[address] [facility] MCHC 32.9 32.3 - 35.7 g/dL [facility] RDW CV 12.8 11.1 - 14.9 % [facility] RDW SD 41.8 35.7 - 48.[address] [facility] NRBC abs 0.00 0.00 - 0.01 K/cumm [facility] Blood 08/23/2024 2:33 AM ENVELOPE SEALER 08/23/2024 3:24 AM ENVELOPE SEALER Salena Crawley MD LAB BLOOD ORDERABLES Fin al Result Performing Organization Address [facility]/ZIP Co de Phone Number [facility] [address] Department of [employer] [place], [place] [id number] * Blood culture Blood (08/23/2024 2:33 AM ENVELOPE SEALER) Report Final Report: No growth Blood 08/23/2024 2:33 AM ENVELOPE SEALER 08/23/2024 2:47 AM ENVELOPE SEALER Narrative [facility] - 08/28/2024 7:01 AM ENVELOPE SEALER From a different site than #1. Collection->Peripheral [...] organism identification may be performed using the ticketscriptArray Blood Culture Identification panel. This assay detects microbial DNA in a blood culture broth. This assay has been cleared by the [facility] Food and Drug Administration and its performance characteristics have been verified by the [facility]. Interpretive data was last revised on September 03, 2022. Salena Crawley MD LAB MICROBIOLOGY - GENER AL ORDERABLES Final Result Performing Organization Address City/[facility]/ZIP Co de Phone Number [facility] [address] [place] [place] [address] * Blood culture Blood (08/23/2024 2:33 AM ENVELOPE SEALER) Report Final Report: No growth Blood 08/23/2024 2:33 AM ENVELOPE SEALER 08/23/2024 2:48 AM ENVELOPE SEALER Narrative [facility] - 08/28/2024 7:01 AM ENVELOPE SEALER Collection->Peripheral Interpretive Data 1. Blood cultures are incubated and monitored continuously for 5 days (120 hours). The first negative report is issued within 24 hours of receipt in the laboratory. 2. All positive cultures are resulted and called to physicians/care providers as soon as they are detected. 3. A rapid molecular test for organism identification may be performed using the ticketscriptArray Blood Culture Identification panel. This assay detects microbial DNA in a blood culture broth. This assay has been cleared by the [employer] Food and Drug Administration and its performance characteristics have been verified by the [facility]. Interpretive data was last revised on September 03, 2022. Salena Crawley MD LAB MICROBIOLOGY - GENER AL ORDERABLES Final Result Performing Organization Address City/[facility]/ZIP Co de Phone Number [facility] [address] [place] [place] [address] * (ABNORMAL) Comprehensive metabolic panel (08/23/2024 2:33 AM ENVELOPE SEALER) Sodium 140 135 - 145 mmol/L Potassium, pl 3.9 3.3 - 4.9 mmol/L [facility] Chloride 104 97 - 110 mmol/L [facility] CO2 25 22 - 32 mmol/L [facility] Anion gap 11 2 - 15 mmol/L [facility] BUN 24 6 - 25 mg/dL [facility] Creatinine 0.82 0.80 - 1.30 mg/dL [facility] Glucose 83 70 - 199 mg/dL [facility] Comment: Interpretive Data Fasting glucose [...] 2022. Calcium 9.3 8.5 - 10.3 mg/dL [facility] Bilirubin, total 0.6 0.1 - 1.2 mg/dL [facility] Protein, pl 6.9 6.5 - 8.5 g/dL [facility] Albumin 4.0 3.5 - 5.0 g/dL [facility] Alk phos 70 40 - 130 Units/L [facility] ALT 65(H) 7 - 55 Units/L [facility] AST 30 10 - 50 Units/L [facility] Comment:Slightly Hemolyzed S pecimen Blood 08/23/2024 2:33 AM ENVELOPE SEALER 08/23/2024 3:24 AM ENVELOPE SEALER us Salena Crawley MD LAB BLOOD ORDERABLES Fin al Result [facility] [address] [place] [address] * ECG 12 lead (08/23/2024 2:32 AM ENVELOPE SEALER) 08/23/2024 2:32 AM ENVELOPE SEALER Narrative [facility] - 08/24/2024 4:38 PM ENVELOPE SEALER Vent Rate: 64 bpm RR Interval: 935 msec FL Interval: 174 msec QRS Duration: 109 msec QT Interval: 409 msec QTC Interval: 418 msec P-R-T V[place]y: 68 - 81 - 41 degrees IMPRESSION: SINUS RHYTHM NORMAL ECG Electronically Signed By: Andrea Moralez MD [facility] us Salena Crawley MD ECG ORDERABLES Final Re sult [facility] [employer] [facility] * eGFR (08/21/2024 12:35 AM ENVELOPE SEALER) eGFR >90 >=60 mL/min/1. 73 m2 Comment: [...] reviewed 2021. Blood 08/21/2024 12:3 5 AM ENVELOPE SEALER 08/21/2024 12:40 AM ENVELOPE SEALER us Magalis MARQUES LAB BLOOD ORDERABLE S Final Result JADA [facility] [address] [facility] Department [place] [address] * Differential, auto (08/21/2024 12:35 AM ENVELOPE SEALER) Neutrophil abs 3.7 1.5 - 6.5 K/cumm [...] on 2017. Imm gran pct 0.1 % [facility] Comment: Interpretive Data Percent cell count reference ranges are not reported, since discordance with absolute values may lead to misinterpretation of CBC data. Current Interpretive Data was last revised on 2017. Lymphocyte pct 32.5 % [facility] Comment: Interpretive Data Percent cell count reference ranges are not reported, since discordance with absolute values may lead to misinterpretation of CBC data. Current Interpretive Data was last revised on 2017. Monocyte pct 8.3 % [facility] Comment: Interpretive Data Percent cell count reference ranges are not reported, since discordance with absolute values may lead to misinterpretation of CBC data. Current Interpretive Data was last revised on 2017. Eosinophil pct 4.3 % [facility] Comment: Interpretive Data Percent cell count reference [...] on 2017. Blood 08/21/2024 12:3 5 AM ENVELOPE SEALER 08/21/2024 12:40 AM ENVELOPE SEALER Magalis MARQUES LAB BLOOD ORDERABLE S Final Result Performing Organization Address City/[facility]/ZIP Co de Phone Number JADA HANSON[address] [place] [address] * (ABNORMAL) CBC with auto differential (08/21/2024 12:35 AM ENVELOPE SEALER) WBC 6.9 3.8 - 9.9 K/cumm Hgb 12.1(L) 13.0 - 17.5 g/dL [facility] Hct 36.8(L) 38.9 - 50.3 % [facility] Plt 200 150 - 400 K/cumm [facility] MPV 10.1 9.1 - 12.3 fL [facility] RBC 4.14(L) 4.30 - 5.80 M/cumm [facility] MCV 88.9 81.3 - 96.4 fL [facility] MCH 29.2 27.1 - 33.3 pg [facility] MCHC 32.9 32.3 - 35.7 g/dL [facility] RDW CV 12.8 11.1 - 14.9 % [facility] RDW SD 41.5 35.7 - 48.1 fL [facility] NRBC abs 0.00 0.00 - 0.01 K/cumm [facility] Blood 08/21/2024 12:3 5 AM ENVELOPE SEALER 08/21/2024 12:40 AM ENVELOPE SEALER Magalis MARQUES LAB BLOOD ORDERABLE S Final Result [facility] [address] [place] [address] * Erythrocyte sedimentation rate (08/21/2024 12:35 AM ENVELOPE SEALER) Erythrocyte sedimentation rate 5 1 - 15 mm/hr [facility] Blood 08/21/2024 12:3 5 AM ENVELOPE SEALER 08/21/2024 12:40 AM ENVELOPE SEALER Magalis Alcantar Willy [place] LAB BLOOD ORDERABLE S Final Result Performing Organization Address City/[facility]/ZIP Co de Phone Number JAMES[address] [place] [address] * CRP (acute phase) (08/21/2024 12:35 AM ENVELOPE SEALER) Pathologist [facility] CRP <3.5 <=10.0 mg/L Blood 08/21/2024 12:3 5 AM ENVELOPE SEALER 08/21/2024 12:40 AM ENVELOPE SEALER Magalis Aguilera [place] LAB BLOOD ORDERABLE S Final Result Performing Organization Address [facility] Co de Phone Number [address] [place] [address] * (ABNORMAL) Basic metabolic panel (08/21/2024 12:35 AM ENVELOPE SEALER) Sodium 140 135 - 145 mmol/L Potassium, pl 4.2 3.3 - 4.9 mmol/L [facility] Chloride 104 97 - 110 mmol/L [facility] CO2 26 22 - 32 mmol/L [facility] Anion gap 10 2 - 15 mmol/L [facility] BUN 34(H) 6 - 25 mg/dL [facility] Creatinine 0.91 0.80 - 1.30 mg/dL [facility] Glucose 96 70 - 199 mg/dL [facility] Comment: Interpretive Data Fasting glucose [...] 2022. Calcium 9.1 8.5 - 10.3 mg/dL [facility] Blood 08/21/2024 12:3 5 AM ENVELOPE SEALER 08/21/2024 12:40 AM ENVELOPE SEALER Magalis MARQUES LAB BLOOD ORDERABLE S Final Result JADA [facility] [address] Department [place] [address] * Streptococcus Group A PCR Throat (08/20/2024 9:19 AM ENVELOPE SEALER) Pathologist [facility] Strep A DNA Not Detected Not Detected Comment: This test is performed using the [employer] Xpert Group A Streptococcal Assay. This is [...] the performing laboratory. Throat 08/20/2024 9:19 AM ENVELOPE SEALER 08/20/2024 9:22 AM ENVELOPE SEALER Fei Murray MD LAB MICROBIOLOGY - GENERAL ORDERABLES Final Result Performing Organization Address City/[facility]/ZIP Co de Phone Number [facility] [address] Department [place] [address] [facility] * Respiratory pathogen panel Nasopharyngeal (08/20/2024 9:19 AM ENVELOPE SEALER) [facility] Influenza A RNA Not Detected Not Detected Influenza B RNA Not Detected Not Detected [facility] RSV RNA Not Detected Not Detected [facility] COVID-19 RNA Not Detected Not Detected [facility] Coronavirus 229E RNA Not Detected Not Detected [facility] Coronavirus HKU1 RNA Not Detected Not Detected [facility] Coronavirus NL63 RNA Not Detected Not Detected [facility] Coronavirus OC43 RNA Not Detected Not Detected [facility] Adenovirus DNA Not Detected Not Detected [facility] Metapneumovirus RNA Not Detected Not Detected [facility] Rhinovirus/Enterov irus RNA Not Detected Not Detected [facility] Parainfluenza 1 RNA Not Detected Not Detected [facility] Parainfluenza 2 RNA Not Detected Not Detected [facility] Parainfluenza 3 RNA Not Detected Not Detected [facility] Parainfluenza 4 RNA Not Detected Not Detected [facility] B. pertussis DNA Not Detected Not Detected [facility] B. parapertussis DNA Not Detected Not Detected [facility] C. pneumoniae DNA Not Detected Not Detected [facility] M. pneumoniae DNA Not Detected Not Detected [facility] Comment: Interpretive Data The XMS Penvision FilmArray Respiratory Panel (RP2.1) assay is a [...] assay has FDA clearance for testing of IM[employer] swabs. The performance characteristics of this assay have been determined by [facility]. Current interpretive data was last revised on 2021. Nasopharyngeal 08/20/2024 9: 19 AM ENVELOPE SEALER 08/20/2024 9:22 AM ENVELOPE SEALER Bernadette ELIAS - 08/20/2024 10:22 AM ENVELOPE SEALER Is the Patient experiencing symptoms consistent with COVID?->Yes Surveillance testing for transplant patient?->No Fei Murray MD LAB MICROBIOLOGY - GENERAL ORDERABLES Final Result JADA [address] Department [place] [address] * (ABNORMAL) D-dimer, quantitative (08/15/2024 1:08 AM ENVELOPE SEALER) D-Dimer 647(H) <=499 ng/mL FEU Comment: Interpretive [...] revised on 2019. Blood 08/15/2024 1:08 AM ENVELOPE SEALER 08/15/2024 1:11 AM ENVELOPE SEALER Maddison Muhammad NP LAB BLOOD ORDERABLES Final Resul t Performing Organization Address [facility] Co de Phone Number JADA GOODE [address] [address] [facility]stageNorth [facility] [place] [address] * eGFR (08/14/2024 9:59 PM ENVELOPE SEALER) eGFR >90 >=60 mL/min/1. 73 m2 Comment: [...] last reviewed 2021. Blood 08/14/2024 9:59 PM ENVELOPE SEALER 08/14/2024 10:10 PM ENVELOPE SEALER Abigail Richards MD LAB BLOOD ORDERABLES Final Result Performing Organization Address City/[facility]/ZIP Co de Phone Number JADA [facility] [id number] [address] [employer] [place] [address] * Differential, auto (08/14/2024 9:59 PM ENVELOPE SEALER) Neutrophil abs 3.7 1.5 - 6.5 K/cumm Imm gran abs 0.0 0.0 - 0.1 K/cumm [facility] Lymphocyte abs 2.0 0.8 - 3.3 K/cumm [facility] Monocyte abs 0.5 0.2 - 0.8 K/cumm [facility] Eosinophil abs 0.2 0.0 - 0.5 K/cumm [facility] Basophil abs 0.1 0.0 - 0.1 K/cumm JADA [facility] Neutrophil pct 57.5 % [facility] Comment: Interpretive Data Percent cell count reference ranges are not reported, since discordance with absolute values may lead to misinterpretation of CBC data. Current Interpretive Data was last revised on 2017. Imm gran pct 0.2 % [facility] Comment: Interpretive Data Percent cell count reference ranges are not reported, since discordance with absolute values may lead to misinterpretation of CBC data. Current Interpretive Data was last revised on 2017. Lymphocyte pct 30.2 % [facility] Comment: Interpretive Data Percent cell count reference ranges are not reported, since discordance with absolute values may lead to misinterpretation of CBC data. Current Interpretive Data was last revised on 2017. Monocyte pct 7.6 % [facility] Comment: Interpretive Data Percent cell count reference ranges are not reported, since discordance with absolute values may lead to misinterpretation of CBC data. Current Interpretive Data was last revised on 2017. Eosinophil pct 3.4 % [facility] Comment: Interpretive Data Percent cell count reference ranges are not reported, since discordance with absolute values may lead to misinterpretation of CBC data. Current Interpretive Data was last revised on 2017. Basophil pct 1.1 % [facility] Comment: Interpretive Data Percent cell count reference ranges are not reported, since discordance with absolute values may lead to misinterpretation of CBC data. Current Interpretive Data was last revised on 2017. Blood 08/14/2024 9:59 PM ENVELOPE SEALER 08/14/2024 10:10 PM ENVELOPE SEALER us Abigail Richards MD LAB BLOOD ORDERABLES Final Result JADA [facility]ANSON[facility] [address] [facility]. Department of [employer] [place], [place] [id number] * Pro B-type natriuretic peptide (08/14/2024 9:59 PM ENVELOPE SEALER) NT-proBNP 75 <=300 pg/mL Comment: Interpretive Comments: [...] Revised Date: 2018. Blood 08/14/2024 9:59 PM ENVELOPE SEALER 08/14/2024 10:10 PM ENVELOPE SEALER us Abigail Richards MD LAB BLOOD ORDERABLES Final Result JADA [facility] [address] [facility] [place] [address] * CBC with auto differential (08/14/2024 9:59 PM ENVELOPE SEALER) WBC 6.5 3.8 - 9.9 K/cumm Hgb 13.3 13.0 - 17.5 g/dL [facility] Hct 39.8 38.9 - 50.3 % [facility] BJW Plt 218 150 - 400 K/cumm [facility] MPV 10.0 9.1 - 12.3 fL [facility] RBC 4.49 4.30 - 5.80 M/cumm [facility] MCV 88.6 81.3 - 96.4 fL [facility] MCH 29.6 27.1 - 33.3 pg [facility] MCHC 33.4 32.3 - 35.7 g/dL [facility] RDW CV 12.7 11.1 - 14.9 % [facility] RDW SD 41.1 35.7 - 48.1 fL [facility] NRBC abs 0.00 0.00 - 0.01 K/cumm [facility] Blood (Blood, Venous) 08/14/2024 9:59 PM ENVELOPE SEALER 08/14/2024 10:10 PM ENVELOPE SEALER Abigail Richards MD LAB BLOOD ORDERABLES Final Result Performing Organization Address [facility] de Phone Number [facility] [address] [address] [place] [place] [address] * Lipase (08/14/2024 9:59 PM ENVELOPE SEALER) Pathologist [facility] Lipase 50 10 - 99 Units/L Blood (Blood, Venous) 08/14/2024 9:59 PM ENVELOPE SEALER 08/14/2024 10:10 PM ENVELOPE SEALER Abigail Richards MD LAB BLOOD ORDERABLES Final Result Performing Organization Address [facility] de Phone Number [facility] [address] [facility] HospitalMobile BackstageNorth [facility] [employer] [place], [place] [id number] * (ABNORMAL) Comprehensive metabolic panel (08/14/2024 9:59 PM ENVELOPE SEALER) Pathologist [facility] Sodium 139 135 - 145 mmol/L Potassium, [...] Units/L [facility] Blood 08/14/2024 9:59 PM ENVELOPE SEALER 08/14/2024 10:10 PM ENVELOPE SEALER us Abigail Richards MD LAB BLOOD ORDERABLES Final Result JADA GOODE [address] [facility]. [place] [address] * TRANSTHORACIC ECHO (TTE) COMPLETE W DOPPLER/CF WO CONTRAST (08/14/2024 11:39 AM ENVELOPE SEALER) LV EF 55-60 % CONS SCIMAGE Anatomical Region Laterality Modality Ultrasound 08/14/2024 10:0 7 AM ENVELOPE SEALER Narrative 08/14/2024 11:49 AM ENVELOPE SEALER [facility] [address] [place] [address] ECHOCARDIOGRAM Patient Name: LISA AZAR : 1980 (43y 11m) Gender: M Study Date: 08/14/2024 10:07:30 AM Ht(Inch): 68 Wt(Lb): 173.06 BSA: 1.94 Head Of Science: NINFA Location: [address] Order Provider: PHOEBE ADKINS BMI: 26.31 [...] Jerel Ramirez MD PhD 08/14/2024 11:48:00 AM ENVELOPE SEALER Procedure Note Jerel Ramirez MD PhD - 08/14/2024 [id number] [place] [address] ECHOCARDIOGRAM Patient Name: LISA AZAR : 1980 (43y 11m) Gender: M Study Date: 08/14/2024 10:07:30 AM Ht(Inch): 68 Wt(Lb): 173.06 BSA: 1.94 Head Of Science: NINFA Location: [address] Order Provider: PHOEBE ADKINS BMI: 26.31 [...] Jerel Ramirez MD PhD 08/14/2024 11:48:00 AM ENVELOPE SEALER us Phoebe Adkins MD CV ECHO PROCEDURES Final Result * eGFR (08/13/2024 5:30 AM ENVELOPE SEALER) eGFR >90 >=60 mL/min/1. 73 m2 Comment: [...] last reviewed 2021. Blood 08/13/2024 5:30 AM ENVELOPE SEALER 08/13/2024 6:25 AM ENVELOPE SEALER us Phoebe Adkins MD LAB BLOOD ORDERABLES Final Resul t [facility] [address] [place] [address] * (ABNORMAL) CBC without differential (08/13/2024 5:30 AM ENVELOPE SEALER) WBC 5.7 3.8 - 9.9 K/cumm Hgb 11.9(L) 13.0 - 17.5 g/dL [facility] Hct 36.4(L) 38.9 - 50.3 % [facility] Plt 186 150 - 400 K/cumm [facility] MPV 10.6 9.1 - 12.[address] [facility] RBC 4.01(L) 4.30 - 5.80 M/cumm [facility] MCV 90.8 81.3 - 96.[address] [facility] MCH 29.7 27.1 - 33.[address] [facility] MCHC 32.7 32.3 - 35.7 g/dL [facility] RDW CV 13.0 11.1 - 14.9 % [facility] RDW SD 43.0 35.7 - 48.[address] [facility] NRBC abs 0.00 0.00 - 0.01 K/cumm [facility] Blood 08/13/2024 5:30 AM ENVELOPE SEALER 08/13/2024 6:25 AM ENVELOPE SEALER us Phoebe Adkins MD LAB BLOOD ORDERABLES Final Resul t Performing Organization Address City/[facility] Co de Phone Number [facility] [address] [facility] [place] [address] * Phosphorus (08/13/2024 5:30 AM ENVELOPE SEALER) Phosphorus, pl 2.9 2.3 - 4.5 mg/dL Blood 08/13/2024 5:30 AM ENVELOPE SEALER 08/13/2024 6:25 AM ENVELOPE SEALER us Phoebe Adkins MD LAB BLOOD ORDERABLES Final Resul t Performing Organization Address [facility] Co de Phone Number [facility] [address] [facility] [place] [address] * Magnesium (08/13/2024 5:30 AM ENVELOPE SEALER) Magnesium 1.9 1.4 - 2.5 mg/dL Blood 08/13/2024 5:30 AM ENVELOPE SEALER 08/13/2024 6:25 AM ENVELOPE SEALER us Phoebe Adkins MD LAB BLOOD ORDERABLES Final Resul t Performing Organization Address City/[facility] Co de Phone Number [facility] [address] [facility] [place] [address] * Ferritin (08/13/2024 5:30 AM ENVELOPE SEALER) Ferritin 39 30 - 400 ng/mL Blood 08/13/2024 5:30 AM ENVELOPE SEALER 08/13/2024 6:24 AM ENVELOPE SEALER us Phoebe Adkins MD LAB BLOOD ORDERABLES Final Resul t Performing Organization Address City/[facility] Co de Phone Number [facility] [address] [place] [address] * (ABNORMAL) Hepatic function panel (08/13/2024 5:30 AM ENVELOPE SEALER) [facility] Bilirubin, total 0.4 0.1 - 1.2 mg/dL Bilirubin, direct <0.2 0.1 - 0.3 mg/dL [facility] Protein, pl 5.9(L) 6.5 - 8.5 g/dL [facility] Albumin 3.5 3.5 - 5.0 g/dL [facility] Alk phos 71 40 - 130 Units/L [facility] ALT 200(H) 7 - 55 Units/L [facility] AST 101(H) 10 - 50 Units/L [facility] Blood 08/13/2024 5:30 AM ENVELOPE SEALER 08/13/2024 6:25 AM ENVELOPE SEALER Russ Adkins MD LAB BLOOD ORDERABLES Final Resul t [facility] [address] [place] [address] * (ABNORMAL) Basic metabolic panel (08/13/2024 5:30 AM ENVELOPE SEALER) [facility] Sodium 140 135 - 145 mmol/L Potassium, pl 4.1 3.3 - 4.9 mmol/L [facility] Chloride 106 97 - 110 mmol/L [facility] CO2 24 22 - 32 mmol/L [facility] Anion gap 10 2 - 15 mmol/L [facility] BUN 23 6 - 25 mg/dL [facility] Creatinine 0.82 0.80 - 1.30 mg/dL [facility] Glucose 87 70 - 199 mg/dL [facility] Comment: Interpretive Data Fasting glucose [...] 2022. Calcium 8.1(L) 8.5 - 10.3 mg/dL [facility] Blood 08/13/2024 5:30 AM ENVELOPE SEALER 08/13/2024 6:25 AM ENVELOPE SEALER us Phoebe Adkins MD LAB BLOOD ORDERABLES Final Resul t [facility] [address] [place] [address] * Drugs of Abuse Screen, Urine with Reflex Confirmation (08/13/2024 12:15 AM ENVELOPE SEALER) Amphetamine, ur Not Detected CutOff 500ng/mL Comment: Interpretive Data - Amphetamines: Samples containing greater than 500 ng/mL d-methamphetamine or other cross-reacting amphetamine compounds are reported as positive. Amphetamine immunoassays are subject to significant false positive rates due to cross-reactivity of non-amphetamine drugs. Confirmatory testing required for definitive results. Current Interpretive Data was last reviewed 2023. Barbiturates, ur Not Detected CutOff 200ng/mL [facility] Comment: Interpretive Data - Barbiturates: Samples containing greater than 200 ng/mL secobarbital or other cross-reacting barbiturate compounds are reported as positive. False positive and false negative results are possible. Confirmatory testing required for definitive results. Current Interpretive Data was last reviewed 2023. Benzodiazepines, ur Not Detected CutOff 100ng/mL [facility] Comment: Interpretive Data - Benzodiazepines: Samples containing greater than 100 ng/mL nordiazepam or other cross-reacting compounds are reported as positive. False positive and false negative results are possible. Confirmatory testing required for definitive results. Current Interpretive Data was last reviewed 2023. Cannabinoids, ur Not Detected CutOff 50 ng/mL [facility] Comment: Interpretive Data - Cannabinoids: Samples containing greater than 50 ng/mL delta-9 THC -COOH or other cross- reacting compounds are reported as positive. False positive and false negative results are possible. Confirmatory testing required for definitive results. Current Interpretive Data was last reviewed 2023. Cocaine, ur Not Detected CutOff 150ng/mL [facility] Comment: Interpretive Data - Cocaine: Samples containing greater than 150 ng/mL benzoylecgonine or other cross- reacting compounds are reported as positive. False positive and false negative results are possible. Confirmatory testing required for definitive results. Current Interpretive Data was last reviewed 2023. Fentanyl, Ur Not Detected CutOff 5 ng/mL [facility] Comment: Interpretive Data - Fentanyl: Samples containing greater than 5 ng/mL norfentanyl, fentanyl, or other cross-reacting fentanyl compounds are reported as positive. False positive and false negative results are possible. Confirmatory testing required for definitive results. Current Interpretive Data was last reviewed 2023. Methadone, ur Not Detected CutOff 300ng/mL [facility] Comment: Interpretive Data - Methadone: Samples containing greater than 300 ng/mL d,l-methadone or other cross-reacting compounds are reported as positive. False positive and false negative results are possible. Confirmatory testing required for definitive results. Current Interpretive Data was last reviewed 2023. Opiates, ur Not Detected CutOff 300ng/mL [facility] Comment: Interpretive Data - Opiates: Samples containing greater than 300 ng/mL morphine or other cross-reacting compounds are reported as positive. False positive and false negative results are possible. Confirmatory testing required for definitive results. Current Interpretive Data was last reviewed 2023. Oxycodone, ur Not Detected CutOff 100ng/mL [facility] Comment: Interpretive Data - Oxycodone: Samples containing greater than 100 ng/mL oxycodone or other cross-reacting compounds are reported as positive. False positive and false negative results are possible. Confirmatory testing required for definitive results. Current Interpretive Data was last reviewed 2023. Phencyclidine, ur Not Detected CutOff 25 ng/mL [facility] Comment: Interpretive Data - Phencyclidine: Samples containing greater than 25 ng/mL phencyclidine or other cross-reacting compounds are reported as positive. False positive and false negative results are possible. Confirmatory testing required for definitive results. Current Interpretive Data was last reviewed 2023. Urine Creatinine 90 mg/dL [facility] Comment: Interpretive Data Urine Creatinine: < 10 mg/dL is extremely dilute = or > 10 but < 20 mg/dL is dilute = or > 20 mg/dL is normal Current Interpretive Data was last revised on 2017. Urine 08/13/2024 12:1 5 AM ENVELOPE SEALER 08/13/2024 12:26 AM ENVELOPE SEALER Narrative [facility] - 08/13/2024 12:54 AM ENVELOPE SEALER Drug of Abuse screening is performed by immunoassay for medical purposes only. This is not to be used for Pain Management purposes. If Detected, confirmation testing will be performed for Amphetamines, Cocaine, Fentanyl, Methadone, Opiates, Oxycodone or Phencyclidine. us Batsheva Portillo MD LAB URINE ORDERABLES Final Result [facility] [address] [place] [address] * (ABNORMAL) Urinalysis reflex to microscopic and culture Urine (08/13/2024 12:15 AM ENVELOPE SEALER) Color, ur Yellow Yellow Clarity, ur Clear Clear [facility] Specific gravity, ur >1.050(H) 1.003 - 1.030 [facility] pH, urine 6.5 [facility] Comment: Interpretive Data U rine pH is affected by diet, medications, systemic acid-base disturbances, and renal tubular function. pH may affect urinary stone formation. For example, urine pH below 6.0 may help reduce the tendency for calcium phosphate stones and pH greater than 6.0 may reduce the tendency for uric acid stone formation. Source: [facility] Current Interpretive Data was last revised on 2017 Protein, ur ql Negative Negative [facility] Glucose, ur ql Negative Negative [facility] Ketones, ur Negative Negative [facility] Bilirubin, ur Negative Negative [facility] [facility] Blood, ur Negative Negative [facility] Urobilinogen, ur <2.0 <2.0 mg/dL [facility] Nitrite, ur Negative Negative [facility] Leukocyte esterase, ur Negative Negative [facility] UA reflex comment Reflex conditions for microscopic UA and culture not met. [facility] Urine 08/13/2024 12:1 5 AM ENVELOPE SEALER 08/13/2024 12:15 AM ENVELOPE SEALER us Batsheva Portillo MD LAB MICROBIOLOGY - GENERAL ORDERABLES Final Result [facility] [address] Department [place] [address] * CT Chest PE (CTA) W Contrast (08/12/2024 11:48 PM ENVELOPE SEALER) Anatomical Region Laterality Modality Body N/A Computed Tomogra phy 08/12/2024 11:4 3 PM ENVELOPE SEALER Impressions 08/13/2024 9:24 AM ENVELOPE SEALER No pulmonary embolism. Electronically signed by: Tari Gavin M.D. Narrative 08/13/2024 9:24 AM ENVELOPE SEALER EXAMINATION: CT CHEST PE (CTA) W CONTRAST [...] Lower Extremity Bilateral Complete (08/12/2024 11:46 PM ENVELOPE SEALER) Anatomical Region Laterality Modality Vascular Bilateral Ultrasound 08/13/2024 12:0 9 PM ENVELOPE SEALER Impressions 08/13/2024 12:09 PM ENVELOPE SEALER 1. No evidence of DVT in the lower extremities bilaterally. 2. Pulsatile venous flow bilaterally. This may suggest increased intravascular volume or right-sided valvular heart disease. Clinical correlation suggested. 3. Prominent lymph nodes in both groins. Electronically signed by: Lv Smart M.D. Narrative 08/13/2024 12:09 PM ENVELOPE SEALER Lower Extremity Vein Duplex Bilateral DATE: 08/12/2024 [...] ult * US RUQ (08/12/2024 11:38 PM ENVELOPE SEALER) Anatomical Region Laterality Modality Abdomen N/A Ultrasound 08/12/2024 10:4 5 PM ENVELOPE SEALER Impressions 08/13/2024 11:42 AM ENVELOPE SEALER 1. Trace perihepatic ascites. 2. Pulsatile portal venous flow and dilated inferior vena cava, which may represent elevated right heart pressures and/or tricuspid regurgitation. For the purposes of chemistry quality control technician, this study was initially interpreted by teleradiology. There is no significant discrepancy. Electronically signed by: Saeid Bakre MD, PHD Narrative 08/13/2024 11:42 AM ENVELOPE SEALER EXAMINATION: LIMITED ABDOMINAL SONOGRAM HISTORY: Elevated liver [...] and/or tricuspid regurgitation. For the purposes of chemistry quality control technician, this study was initially interpreted by teleradiology. There is no significant discrepancy. Electronically signed by: Saeid Baker MD, PHD us Batsheva Portillo MD [facility] US PROCEDURES Final Res ult * D-Dimer - Add on lab test (08/12/2024 10:29 PM ENVELOPE SEALER) Acceptable Yes Blood 08/12/2024 10:2 9 PM ENVELOPE SEALER 08/12/2024 10:29 PM ENVELOPE SEALER Narrative [facility] - 08/12/2024 10:29 PM ENVELOPE SEALER Name of Test->D-Dimer us Batsheva Portillo MD LAB BLOOD ORDERABLES Final Result [facility] [address] Department [place] [address] * CT Head and Cervical Spine WO Contrast (08/12/2024 10:20 PM ENVELOPE SEALER) Anatomical Region Laterality Modality Head and Neck N/A Computed Tomogra phy 08/12/2024 10:1 3 PM ENVELOPE SEALER Impressions 08/13/2024 7:[address] HEAD: No acute intracranial abnormality or calvarial fracture. CT CERVICAL SPINE: 1. No acute osseous abnormality. 2. Multilevel cervical spondylosis; most pronounced at C5-C6 and C6-C7. For the purposes of chemistry quality control technician, this study was initially interpreted by teleradiology. There is no significant discrepancy. Electronically signed by: Zaheer Navas M.D. Narrative 08/13/2024 7:02 AM ENVELOPE SEALER EXAMINATION: 1. CT head without contrast 2. [...] C5-C6 and C6-C7. For the purposes of chemistry quality control technician, this study was initially interpreted by teleradiology. There is no significant discrepancy. Electronically signed by: Zaheer Navas M.D. us Batsheva Portillo MD IMG CT PROCEDURES Final Res ult * Protime-INR (08/12/2024 10:05 PM ENVELOPE SEALER) PT 12.8 9.7 - 13.0 sec INR 1.18 0.90 - 1.20 [facility] Comment: Interpretive data Oral anticoagulant therapeutic ranges: Venous thromboembolism prophylaxis or treatment: 2.0-3.0 CARDIOLOGY Standard range: 2.0-3.0 High-intensity range: 2.5-3.5 Refer to indication-specific guidelines for appropriate target ranges for prosthetic heart valve replacement. Current interpretive data was last revised on 2019. Blood 08/12/2024 10:0 5 PM ENVELOPE SEALER 08/12/2024 10:29 PM ENVELOPE SEALER us Batsheva Portillo MD LAB BLOOD ORDERABLES Final Result [facility] [address] Department [place] [address] * (ABNORMAL) D-dimer, quantitative (08/12/2024 10:05 PM ENVELOPE SEALER) D-Dimer 1,783(H) <=499 ng/mL FEU Comment: Interpretive [...] on 2019. Blood 08/12/2024 10:0 5 PM ENVELOPE SEALER 08/12/2024 10:05 PM ENVELOPE SEALER us Batsheva Portillo MD LAB BLOOD ORDERABLES Final Result Performing Organization Address [facility] Co de Phone Number [facility] [address] [facility] [place] [address] * Folate - Add on lab test (08/12/2024 9:53 PM ENVELOPE SEALER) Acceptable Yes Blood 08/12/2024 9:53 PM ENVELOPE SEALER 08/12/2024 9:53 PM ENVELOPE SEALER Narrative [facility] - 08/12/2024 9:54 PM ENVELOPE SEALER Name of Test->Folate us Batsheva Portillo MD LAB BLOOD ORDERABLES Final Result Performing Organization Address [facility] Co de Phone Number [facility] [address] [facility] [place] [address] * Vitamin B12 - Add on lab test (08/12/2024 9:53 PM ENVELOPE SEALER) Acceptable Yes Blood 08/12/2024 9:53 PM ENVELOPE SEALER 08/12/2024 9:54 PM ENVELOPE SEALER [facility] - 08/12/2024 9:54 PM ENVELOPE SEALER Name of Test->Vitamin B12 Batsheva Portillo MD LAB BLOOD ORDERABLES Final Result Performing Organization Address [facility] Co de Phone Number [facility] [address] [facility] [place] [address] * Iron profile - Add on lab test (08/12/2024 9:53 PM ENVELOPE SEALER) Acceptable Yes Blood 08/12/2024 9:53 PM ENVELOPE SEALER 08/12/2024 9:54 PM ENVELOPE SEALER Narrative [facility] - 08/12/2024 9:54 PM ENVELOPE SEALER Name of Test->Iron profile us Batsheva Portillo MD LAB BLOOD ORDERABLES Final Result Performing Organization Address [facility] Co de Phone Number [facility] [address] [facility] [place] [address] * NT-Pro BNP - Add on lab test (08/12/2024 9:53 PM ENVELOPE SEALER) Acceptable Yes Blood 08/12/2024 9:53 PM ENVELOPE SEALER 08/12/2024 9:53 PM ENVELOPE SEALER Narrative [facility] - 08/12/2024 9:54 PM ENVELOPE SEALER Name of Test->NT-Pro BNP us Batsheva Portillo MD LAB BLOOD ORDERABLES Final Result Performing Organization Address [facility] de Phone Number [facility] [address] [facility] [place] [address] * TSH reflex Free T4 - Add on lab test (08/12/2024 9:53 PM ENVELOPE SEALER) Acceptable Yes Blood 08/12/2024 9:53 PM ENVELOPE SEALER 08/12/2024 9:53 PM ENVELOPE SEALER Narrative [facility] - 08/12/2024 9:54 PM ENVELOPE SEALER Name of Test->TSH reflex Free T4 us Batsheva Portillo MD LAB BLOOD ORDERABLES Final Result Performing Organization Address [facility] Co de Phone Number [facility] [address] [facility] [place], [place] [id number] * Phosphorus - Add on lab test (08/12/2024 9:53 PM ENVELOPE SEALER) Acceptable Yes Blood 08/12/2024 9:53 PM ENVELOPE SEALER 08/12/2024 9:53 PM ENVELOPE SEALER Narrative [facility] - 08/12/2024 9:55 PM ENVELOPE SEALER Name of Test->Phosphorus Batsheva Portillo MD LAB BLOOD ORDERABLES Final Result [facility] [address] [place] [place] [address] * Magnesium - Add on lab test (08/12/2024 9:53 PM ENVELOPE SEALER) Acceptable Yes Blood 08/12/2024 9:53 PM ENVELOPE SEALER 08/12/2024 9:53 PM ENVELOPE SEALER Narrative [facility] - 08/12/2024 9:55 PM ENVELOPE SEALER Name of Test->Magnesium Batsheva Portillo MD LAB BLOOD ORDERABLES Final Result Performing Organization Address [facility] Co de Phone Number [facility] [address] Department [employer] [place], [place] [id number] * Troponin T high-sensitivity 2-hour (08/12/2024 9:52 PM ENVELOPE SEALER) Pathologist [facility] Trop T hs 6 <=22 ng/L Comment: Interpretive Data For further hscTnT resources including the diagnostic algorithm and an aid in interpretation, copy and paste this link: https://nrl.testcatalog.org/show/hsTrop Current Interpretive Data last revised 2020. Trop T hs delta -1 ng/L [facility] Trop T hs interp Insignificant [facility] Blood 08/12/2024 9:52 PM ENVELOPE SEALER 08/12/2024 10:30 PM ENVELOPE SEALER Ace Gonzales MD LAB BLOOD ORDERABLES F inal Result Performing Organization Address City/[facility]/ZIP Co de Phone Number [facility] [address] [place] [address] * Ethanol (08/12/2024 9:52 PM ENVELOPE SEALER) Ethanol <10 <=10 mg/dL Comment: Interpretive Data Legal limit of intoxication > or = 80 mg/dL Levels > or = 400 mg/dL are potentially TOXIC. Current interpretive data was last revised on 2018. Blood 08/12/2024 9:52 PM ENVELOPE SEALER 08/12/2024 10:29 PM ENVELOPE SEALER Batsheva Portillo MD LAB BLOOD ORDERABLES Final Result Performing Organization Address City/[facility]/ZIP Co de Phone Number [facility] [address] [place] [place] [address] * Hepatitis panel, acute Blood (08/12/2024 9:13 PM ENVELOPE SEALER) Hep A IgM Nonreactive Nonreactive Comment: Interpretive Data: If Hep A IgM Ab is reported as Equivocal, a new sample should be drawn in two weeks for testing. Current interpretive data was last revised on 19. Hep B core IgM Nonreactive Nonreactive [facility] Comment: Interpretive Data If HepB Core IgM Ab is reported as Equivocal, a new sample should be drawn in two weeks for testing. Current interpretive data was last revised on 19. Hep C Ab Nonreactive Nonreactive [facility] Comment: Interpretive Data Nonreactive: Antibodies [...] last revised on 2019. HepBsAg Nonreactive Nonreactive [facility] Blood 08/12/2024 9:13 PM ENVELOPE SEALER 08/12/2024 9:17 PM ENVELOPE SEALER us Batsheva Portillo MD LAB MICROBIOLOGY - GENERAL ORDERABLES Final Result Performing Organization Address City/[facility]/ZIP Co de Phone Number [facility] [address] [place] [place] [address] * Acetaminophen level (08/12/2024 9:13 PM ENVELOPE SEALER) Pathologist [facility] Acetaminophen <5 <=5 mcg/mL Comment: Interpretive Data Significant hepatic injury may occur and treatment with n-acetyl cysteine is generally recommended if the acetaminophen level exceeds: 150 mcg/mL at 4 hours after ingestion 75 mcg/mL at 8 hours after ingestion 38 mcg/mL at 12 hours after ingestion 19 mcg/mL at 16 hours after ingestion Consult toxicology or poison control ([phone]) for unknown ingestion time. Current interpretive data was last revised 2023. Blood 08/12/2024 9:13 PM ENVELOPE SEALER 08/12/2024 9:17 PM ENVELOPE SEALER us Batsheva Portillo MD LAB BLOOD ORDERABLES Final Result Performing Organization Address [facility] Co de Phone Number [facility] [address] [place] [place] [address] * Troponin T high-sensitivity series (baseline, 2hr, 4hr, 6hr) (08/12/2024 8:08 PM ENVELOPE SEALER) Pathologist [facility] Trop T hs 7 <=22 ng/L Comment: Interpretive Data For further hscTnT resources including the diagnostic algorithm and an aid in interpretation, copy and paste this link: https://nrl.testcatalog.org/show/hsTrop Current Interpretive Data last revised 2020. Blood 08/12/2024 8:0 8 PM ENVELOPE SEALER 08/12/2024 8:23 PM ENVELOPE SEALER us Batsheva Portillo MD LAB BLOOD ORDERABLES Final Result Performing Organization Address [facility] Co de Phone Number [facility] [address] [place] [place] [address] * eGFR (08/12/2024 8:08 PM ENVELOPE SEALER) [facility] eGFR >90 >=60 mL/min/1. 73 m2 Comment: [...] last reviewed 2021. Blood 08/12/2024 8:08 PM ENVELOPE SEALER 08/12/2024 8:23 PM ENVELOPE SEALER us Batsheva Portillo MD LAB BLOOD ORDERABLES Final Result [facility] [address] [place] [address] * Differential, auto (08/12/2024 8:08 PM ENVELOPE SEALER) Neutrophil abs 3.5 1.5 - 6.5 K/cumm Imm gran abs 0.0 0.0 - 0.1 K/cumm [facility] Lymphocyte abs 2.2 0.8 - 3.3 K/cumm [facility] Monocyte abs 0.5 0.2 - 0.8 K/cumm [facility] Eosinophil abs 0.3 0.0 - 0.5 K/cumm [facility] Basophil abs 0.1 0.0 - 0.1 K/cumm [facility] Neutrophil pct 54.5 % [facility] Comment: Interpretive Data Percent cell count reference ranges are not reported, since discordance with absolute values may lead to misinterpretation of CBC data. Current Interpretive Data was last revised on 2017. Imm gran pct 0.3 % [facility] Comment: Interpretive Data Percent cell count reference ranges are not reported, since discordance with absolute values may lead to misinterpretation of CBC data. Current Interpretive Data was last revised on 2017. Lymphocyte pct 33.3 % [facility] Comment: Interpretive Data Percent cell count reference ranges are not reported, since discordance with absolute values may lead to misinterpretation of CBC data. Current Interpretive Data was last revised on 2017. Monocyte pct 6.9 % [facility] Comment: Interpretive Data Percent cell count reference ranges are not reported, since discordance with absolute values may lead to misinterpretation of CBC data. Current Interpretive Data was last revised on 2017. Eosinophil pct 4.1 % [facility] Comment: Interpretive Data Percent cell count reference ranges are not reported, since discordance with absolute values may lead to misinterpretation of CBC data. Current Interpretive Data was last revised on 2017. Basophil pct 0.9 % [facility] Comment: Interpretive Data Percent cell count reference ranges are not reported, since discordance with absolute values may lead to misinterpretation of CBC data. Current Interpretive Data was last revised on 2017. Blood 08/12/2024 8:08 PM ENVELOPE SEALER 08/12/2024 8:23 PM ENVELOPE SEALER us Batsheva Portillo MD LAB BLOOD ORDERABLES Final Result [facility] [address] [place] [address] * Pro B-type natriuretic peptide (08/12/2024 8:08 PM ENVELOPE SEALER) NT-proBNP 60 <=300 pg/mL Comment: Interpretive Comments: [...] Revised Date: 2018. Blood 08/12/2024 8:08 PM ENVELOPE SEALER 08/12/2024 8:23 PM ENVELOPE SEALER us Batsheva Portillo MD LAB BLOOD ORDERABLES Final Result Performing Organization Address City/[facility]/ZIP Co de Phone Number [facility] [address] [place] [address] * Thyroid Function [place] (08/12/2024 8:08 PM ENVELOPE SEALER) Pathologist [facility] TSH 1.43 0.30 - 4.20 mcIUnit/mL Blood 08/12/2024 8:08 PM ENVELOPE SEALER 08/12/2024 8:23 PM ENVELOPE SEALER Batsheva Portillo MD LAB BLOOD ORDERABLES Final Result Performing Organization Address City/[facility]/ZIP Co de Phone Number [facility] [address] [place] [address] * (ABNORMAL) Iron profile w/ IBC (08/12/2024 8:08 PM ENVELOPE SEALER) Pathologist [facility] Iron 46(L) 50 - 150 mcg/dL TIBC 296 250 - 400 mcg/dL [facility] Transferrin saturation 16(L) 20 - 50 % [facility] Blood 08/12/2024 8:08 PM ENVELOPE SEALER 08/12/2024 8:23 PM ENVELOPE SEALER us Batsheva Portillo MD LAB BLOOD ORDERABLES Final Result Performing Organization Address [facility]/ZIP Co de Phone Number [facility] [address] [place] [place] [address] * (ABNORMAL) CBC with auto differential (08/12/2024 8:08 PM ENVELOPE SEALER) Pathologist [facility] WBC 6.5 3.8 - 9.9 K/cumm Hgb 12.5(L) 13.0 - 17.5 g/dL [facility] Hct 38.3(L) 38.9 - 50.3 % [facility] Plt 207 150 - 400 K/cumm [facility] MPV 10.1 9.1 - 12.[address] [facility] RBC 4.22(L) 4.30 - 5.80 M/cumm [facility] MCV 90.8 81.3 - 96.[address] [facility] MCH 29.6 27.1 - 33.[address] [facility] MCHC 32.6 32.3 - 35.7 g/dL [facility] RDW CV 13.0 11.1 - 14.9 % [facility] RDW SD 43.2 35.7 - 48.[address] [facility] NRBC abs 0.00 0.00 - 0.01 K/cumm [facility] Blood (Blood, Venous) 08/12/2024 8:08 PM ENVELOPE SEALER 08/12/2024 8:23 PM ENVELOPE SEALER us Batsheva Portillo MD LAB BLOOD ORDERABLES Final Result [facility] [address] Department of [employer] [place], [place] [id number] * Phosphorus (08/12/2024 8:08 PM ENVELOPE SEALER) Pathologist [facility] Phosphorus, pl 3.1 2.3 - 4.5 mg/dL Blood 08/12/2024 8:08 PM ENVELOPE SEALER 08/12/2024 8:23 PM ENVELOPE SEALER us Batsheva Portillo MD LAB BLOOD ORDERABLES Final Result Performing Organization Address City/[facility]/ZIP Co de Phone Number [facility] [address] [facility] [place] [address] * Magnesium (08/12/2024 8:08 PM ENVELOPE SEALER) Magnesium 2.0 1.4 - 2.5 mg/dL Blood 08/12/2024 8:08 PM ENVELOPE SEALER 08/12/2024 8:23 PM ENVELOPE SEALER us Batsheva Portillo MD LAB BLOOD ORDERABLES Final Result Performing Organization Address [facility] Co de Phone Number [facility] [address] [facility] [place] [address] * Folate (08/12/2024 8:08 PM ENVELOPE SEALER) Folic acid 7.6 >=5.0 ng/mL Blood 08/12/2024 8:08 PM ENVELOPE SEALER 08/12/2024 8:23 PM ENVELOPE SEALER us Batsheva Portillo MD LAB BLOOD ORDERABLES Final Result Performing Organization Address City/[facility] Co de Phone Number [facility] [address] [facility] [place] [address] * Vitamin B12 (08/12/2024 8:08 PM ENVELOPE SEALER) Vitamin B12 860 230 - 1,250 pg/mL Blood 08/12/2024 8:08 PM ENVELOPE SEALER 08/12/2024 8:23 PM ENVELOPE SEALER us Batsheva Portillo MD LAB BLOOD ORDERABLES Final Result Performing Organization Address City/[facility]/ZIP Co de Phone Number [facility] [address] Department [place] [address] * (ABNORMAL) Comprehensive metabolic panel (08/12/2024 8:08 PM ENVELOPE SEALER) Sodium 142 135 - 145 mmol/L Potassium, pl 4.4 3.3 - 4.9 mmol/L [facility] Chloride 106 97 - 110 mmol/L [facility] CO2 27 22 - 32 mmol/L [facility] Anion gap 9 2 - 15 mmol/L [facility] BUN 29(H) 6 - 25 mg/dL [facility] Creatinine 1.02 0.80 - 1.30 mg/dL [facility] Glucose 104 70 - 199 mg/dL [facility] Comment: Interpretive Data Fasting glucose [...] 2022. Calcium 8.6 8.5 - 10.3 mg/dL [facility] Bilirubin, total 0.3 0.1 - 1.2 mg/dL [facility] Protein, pl 6.1(L) 6.5 - 8.5 g/dL [facility] Albumin 3.7 3.5 - 5.0 g/dL [facility] Alk phos 83 40 - 130 Units/L [facility] ALT 230(H) 7 - 55 Units/L [facility] AST 158(H) 10 - 50 Units/L [facility] Blood 08/12/2024 8:08 PM ENVELOPE SEALER 08/12/2024 8:23 PM ENVELOPE SEALER us Batsheva Portillo MD LAB BLOOD ORDERABLES Final Result [facility] [address] [place] [address] * XR Chest PA Lateral 2 Views (08/12/2024 7:27 PM ENVELOPE SEALER) Anatomical Region Laterality Modality Body, Chest N/A Computed Radiogr aphy 08/13/2024 7:44 AM ENVELOPE SEALER Impressions 08/13/2024 7:44 AM ENVELOPE SEALER There is subtle airspace opacity in the right lung base which may represent pneumonia in the appropriate clinical setting. Alternatively, this may represent atelectasis. No pleural effusion. No pneumothorax. Heart size is normal. Electronically signed by: Tari Gavin M.D. Narrative 08/13/2024 7:44 AM ENVELOPE SEALER EXAMINATION: XR CHEST PA LATERAL 2 VIEWS [...] * ECG 12 lead (08/12/2024 6:48 PM ENVELOPE SEALER) 08/12/2024 6:48 PM ENVELOPE SEALER Narrative [facility] - 08/13/2024 1:41 PM ENVELOPE SEALER Vent Rate: 63 bpm RR Interval: 938 msec FL Interval: 165 msec QRS Duration: 96 msec QT Interval: 378 msec QTC Interval: 386 msec P-R-T Vichy: 74 - 81 - 50 degrees IMPRESSION: SINUS RHYTHM POSSIBLE LEFT ATRIAL ENLARGEMENT [-0.1mV P WAVE IN V1/V2] BORDERLINE ECG Electronically Signed By: Jerel Ramriez MD PhD us Batsheva Portillo MD ECG ORDERABLES Final Resul t [facility] [employer] [facility] * XR Chest Pa Lateral 2 Views (08/11/2024 2:02 AM ENVELOPE SEALER) Anatomical Region Laterality Modality Body, Chest N/A Computed Radiogr aphy 08/11/2024 3:00 AM ENVELOPE SEALER Impressions 08/11/2024 9:05 AM ENVELOPE SEALER Comparison radiograph from 08/08/2024. No consolidation, pleural effusion, or pneumothorax. Cardiomediastinal silhouette within normal limits. Dictated by: Julio Rooney M.D. The radiology attending physician has personally reviewed this study, and had reviewed and/or edited this written report and agrees with it. Electronically signed by: Brice Mantilla M.D. Narrative 08/11/2024 9:05 AM ENVELOPE SEALER EXAMINATION: 2 view chest radiograph Procedure Note [...] sult * ECG 12-LEAD (08/11/2024 1:43 AM ENVELOPE SEALER) Narrative [facility] - 08/11/2024 1:43 AM ENVELOPE SEALER Johnnie Kelly MD 08/11/2024 1:44 AM ECG [...] PA Lateral 2 Views (08/08/2024 10:42 PM ENVELOPE SEALER) Anatomical Region Laterality Modality Body, Chest N/A Computed Radiogr aphy 08/08/2024 11:0 3 PM ENVELOPE SEALER Impressions 08/09/2024 10:05 AM ENVELOPE SEALER The current study is compared with the prior radiograph dated 09/13/2019. Mild bibasilar atelectasis. No consolidation, pleural effusion, or pneumothorax. Cardiomediastinal silhouette within normal limits. Dictated by: Chet Boogie MD The radiology attending physician has personally reviewed this study, and had reviewed and/or edited this written report and agrees with it. Electronically signed by: Steve Arce M.D. Narrative 08/09/2024 10:05 AM ENVELOPE SEALER EXAMINATION: 2 view chest radiograph Procedure Note Steve Arec MD - 08/09/2024 EXAMINATION: 2 view chest [...] CT Head WO Contrast (08/08/2024 10:34 PM ENVELOPE SEALER) Anatomical Region Laterality Modality Head and Neck N/A Computed Tomogra phy 08/08/2024 10:4 4 PM ENVELOPE SEALER Impressions 08/09/2024 10:54 AM ENVELOPE SEALER 1. No acute intracranial process. 2. Large burden of cerumen in both external auditory canals which may be impacted. Dictated by: Juancho Marquez MD, Ph.D The radiology attending physician has personally reviewed this study, and had reviewed and/or edited this written report and agrees with it. Electronically signed by: Indio Zambrano M.D. Narrative 08/09/2024 10:54 AM ENVELOPE SEALER EXAMINATION: CT head without contrast HISTORY: 43-year-old [...] ult * ECG 12-LEAD (08/08/2024 8:56 PM ENVELOPE SEALER) Narrative [facility] - 08/08/2024 8:56 PM ENVELOPE SEALER Salena Cobb MD 08/08/2024 8:57 PM ECG [...] Gatica MD ECG ORDERABLES Final Resul t [facility] * (ABNORMAL) Respiratory pathogen panel Nasopharyngeal (08/06/2024 9:59 AM ENVELOPE SEALER) [facility] Influenza A RNA Not Detected Not Detected Influenza B RNA Not Detected Not Detected [facility] RSV RNA Not Detected Not Detected [facility] COVID-19 RNA Not Detected Not Detected [facility] Coronavirus 229E RNA Not Detected Not Detected [facility] Coronavirus HKU1 RNA Not Detected Not Detected [facility] Coronavirus NL63 RNA Detected(A) Not Detected [facility] Coronavirus OC43 RNA Not Detected Not Detected [facility] Adenovirus DNA Not Detected Not Detected [facility] Metapneumovirus RNA Not Detected Not Detected [facility] Rhinovirus/Enterov irus RNA Not Detected Not Detected [facility] Parainfluenza 1 RNA Not Detected Not Detected [facility] Parainfluenza 2 RNA Not Detected Not Detected [facility] Parainfluenza 3 RNA Not Detected Not Detected [facility] Parainfluenza 4 RNA Not Detected Not Detected [facility] B. pertussis DNA Not Detected Not Detected [facility] B. parapertussis DNA Not Detected Not Detected [facility] C. pneumoniae DNA Not Detected Not Detected [facility] M. pneumoniae DNA Not Detected Not Detected [facility] Nasopharyngeal 08/06/2024 9: 59 AM ENVELOPE SEALER 08/06/2024 10:52 AM ENVELOPE SEALER Narrative [facility] - 08/06/2024 11:43 AM ENVELOPE SEALER Is the Patient experiencing symptoms consistent with COVID?->Yes Surveillance testing for transplant patient?->No Interpretive Data The XMS Penvision FilmArray Respiratory Panel (RP2.1) assay is a [...] assay has FDA clearance for testing of [employer] swabs. The performance of additional specimen types has been assessed by the performing laboratory. The performance characteristics of this assay have been determined by [facility]. Current interpretive data was last revised on 22. [facility] [place] Final Result [facility] Department [place] [address] from Last 3 Months Insurance [facility] [employer] [place] [id number] [facility] [place] [address] [facility] [facility] Advance Directives For more information, please contact: [phone] * Full Code (Latest Code Status on File) Date Activated Date Inactivated Comments 08/13/2024 3:12 AM 08/14/2024 6:01 PM * Full Code Date Activated Date Inactivated Comments 10/28/2022 5:15 PM 10/29/2022 2:07 PM * Full Code Date Activated Date Inactivated Comments 08/09/2019 5:28 PM 08/10/2019 5:09 PM * Full Code Date Activated Date Inactivated Comments 07/29/2019 4:26 PM 08/04/2019 10:36 PM Care Teams Promotions Firm Accounts Manager Relationship Specialty [place] [id number] [place] [address] PCP - General Family Medicine 05/18/24 [place] [id number] [address] [address] Referring Physician General Surgery 08/04/19 [place] [id number] [address] Consulting Physician Gastroenterology 08/04/19
--- OUTSIDE RECORDS SUMMARY | 2024-09-22 00:55 | XMS_ITS | Encounter Summary ---
Author Organization [facility] Address [address] [place] [address] Care Team Providers Care Stage Builder Name Role Phone Unavailable Primary Care Provider Unavailabl e Prior Encounters Date Type Department Care Team Description 11/19/2022 Travel Plan of Treatment Not on file Visit Diagnoses Not on file Insurance [facility]
--- OUTSIDE RECORDS SUMMARY | 2024-09-22 00:55 | XMS_ITS | Clinical Summary ---
Author Organization [address] Address [address] [place] [phone] Care Team Providers Care Accounts Specialist Name Role Phone Elias Andrews MD Unavailable [phone] Joanh Otto MD Unavailable [phone] Jerel Camejo MD Primary Care Provider [phone] Allergies Active Allergy Reactions Criticality Noted Date [...] Insurance Qualify for In Clinic PT? 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 Assessment & Plan (08/09/2019 7:07 PM RN GERIATRIC): Patient presents with complaints of ongoing abdominal [...] 07/29/2019 Assessment & Plan (08/10/2019 10:48 AM RN GERIATRIC): Ongoing nausea post cholecystectomy w/o vomiting. Tolerating PO, no emesis overnight - prn zofran - ADAT Assessment & Plan (08/09/2019 7:17 PM RN GERIATRIC): Ongoing nausea post cholecystectomy w/o vomiting. - prn zofran - ADAT Calculus of gallbladder 07/29/2019 Dizziness 07/29/2019 Assessment & Plan (08/10/2019 10:59 AM RN GERIATRIC): Patient describes dizziness related to uncontrolled abdominal pain. He endorses pain starts in RQ and moves to head . He then becomes diaphoretic, nauseous. Improved this AM. Likely vasovagal, hemodynamically stable. - discussed proper hydration and symptom management Assessment & Plan (08/09/2019 7:16 PM RN GERIATRIC): Patient describes dizziness related to uncontrolled abdominal pain. He endorses pain starts in RQ and moves to head . He then becomes diaphoretic, nauseous. - likely vasovagal, s/p 1 L LR in ED. CTM Intractable right upper quadrant abdominal pain 07/29/2019 Overview (08/01/2019): Added automatically from request for surgery [id number] Adjustment disorder with depressed mood in mahesh ahujaon 11/05/2018 Sepsis 10/25/2018 Abdominal pain, generalized 10/25/2018 Dizziness 10/20/2018 Syncope and collapse 10/20/2018 Gallbladder adhesions Resolved Problems Problem Noted Date Diagnosed Date Resolved Date COVID-19 08/13/2024 08/14/2024 Encounters Date Type Department Care Team Description 09/20/2024 4:07 PM RN GERIATRIC - 09/20/2024 4:49 PM [facility] Emergency Department [address] [place] [phone] Medication refill (Primary Dx) Discharge Disposition: Discharge to home or self care 09/20/2024 1:26 AM [facility] - 09/20/2024 2:22 AM [facility] Emergency Department [address] [place] [address] Cesar Chiang MD Viral pharyngitis (Primary Dx) Discharge Disposition: Discharge to home or self care 09/19/2024 1:39 AM [facility] - 09/19/2024 2:32 AM [facility] Emergency Department [address] [place] [address] Jasbir Yañez MD Pedal edema (Primary Dx) Discharge Disposition: Discharge to home or self care 09/18/2024 6:00 PM RN GERIATRIC - 09/18/2024 7:07 PM [facility] Emergency Department [address] [place] [phone] Left before treatment completed (Primary Dx); Leg swelling Discharge Disposition: Left Against Medical Advice 09/17/2024 11:38 AM [facility] - 09/17/2024 1:19 PM [facility] Emergency Department [address] [place] [phone] Chronic venous insufficiency (Primary Dx); Bilateral lower extremity edema Discharge Disposition: Discharge to home or self care 09/14/2024 12:10 AM RN GERIATRIC - 09/14/2024 1:49 AM [facility] Emergency Department [address] [place] [phone] Brice Sepulveda MD Bilateral lower extremity edema (Primary Dx) Discharge Disposition: Discharge to home or self care 09/14/2024 Telephone [facility] at [address] [phone] Lexi Garcia NP Med Refill 09/13/2024 9:20 PM RN GERIATRIC - 09/13/2024 9:46 PM [facility] Emergency [facility] Emergency Department [address] [place] [address] Michael Schrader MD Weakness (Primary Dx) Discharge Disposition: Discharge to home or self care 09/13/2024 2:46 AM RN GERIATRIC - 09/13/2024 5:31 AM [facility] Emergency [facility] Emergency Department [address] [place] [phone] Katharine Polanco MD Chronic venous insufficiency (Primary Dx); Lower extremity edema Discharge Disposition: Discharge to home or self care 09/12/2024 9:22 PM RN GERIATRIC - 09/12/2024 10:59 PM [facility] Emergency [facility] Emergency Department [id number] [place] [address] Leg swelling (Primary Dx); Venous insufficiency; Venous stasis dermatitis Discharge Disposition: Discharge to home or self care 09/11/2024 10:35 PM RN GERIATRIC - 09/12/2024 3:44 AM [facility] Emergency [facility] Emergency Department [address] [place] [phone] Salena Crawley MD Lower extremity edema (Primary Dx); Cellulitis of left lower extremity Discharge Disposition: Discharge to home or self care 09/11/2024 7:00 PM RN GERIATRIC Office Visit [facility] at [address] [phone] Truman Gabriel, DO Symptom of leg swelling (Primary Dx) 09/10/2024 5:00 PM RN GERIATRIC Office Visit [facility] at [address] [phone] Jess Hobson NP Cellulitis of left lower extremity (Primary Dx); Left leg swelling 09/07/2024 10:55 AM RN GERIATRIC - 09/07/2024 10:56 AM [facility] Emergency Department [address] [place] [address] Venous stasis dermatitis of both lower extremities (Primary Dx) Discharge Disposition: Discharge to home or self care 09/05/2024 8:08 PM RN GERIATRIC - 09/05/2024 10:[address] [facility] Emergency Department [address] [place] [phone] Other chronic pain (Primary Dx); Bilateral lower extremity edema Discharge Disposition: Discharge to home or self care 09/05/2024 2:02 AM RN GERIATRIC - 09/05/2024 3:14 AM [facility] Emergency Department [address] [place] [address] Marek Nelson MD PhD Chronic pain of left lower extremity (Primary Dx) Discharge Disposition: Discharge to home or self care 09/03/2024 7:07 PM RN GERIATRIC - 09/03/2024 11:06 PM [facility] Emergency Department [address] [place] [address] Cellulitis of left lower extremity (Primary Dx) Discharge Disposition: Discharge to home or self care 09/02/2024 8:24 AM [facility] - 09/02/2024 11:59 PM [facility] [address] [place] [address] Discharge Disposition: Discharge to home or self care 09/02/2024 3:25 AM RN GERIATRIC - 09/02/2024 3:41 AM [facility] Emergency Department [address] [place] [address] Rachele Guerra MD Sprain of right ankle, unspecified ligament, initial encounter (Primary Dx) Discharge Disposition: Discharge to home or self care 09/01/2024 8:06 AM [facility] - 09/01/2024 9:39 AM [facility] Emergency Department [address] [place] [address] Jair Armendariz MD Sprain of right ankle, unspecified ligament, initial encounter (Primary Dx) Discharge Disposition: Discharge to home or self care 08/23/2024 9:27 PM RN GERIATRIC - 08/23/2024 10:03 PM [facility] Emergency [facility] Emergency Department [address] [place] [phone] Leg swelling (Primary Dx); Cellulitis of left lower extremity Discharge Disposition: Discharge to home or self care 08/23/2024 1:41 AM RN GERIATRIC - 08/23/2024 9:16 AM [facility] Emergency [facility] Emergency Department [address] [place] [phone] Salena Crawley MD Li, Alex, MD Schneider, John Elliott, MD Leg swelling (Primary Dx); Cellulitis of left lower extremity; Failure of outpatient treatment Discharge Disposition: Discharge to home or self care 08/20/2024 11:11 PM RN GERIATRIC - 08/21/2024 1:30 AM [facility] Emergency [facility] Emergency Department [address] [place] [address] Dependent edema (Primary Dx) Discharge Disposition: Discharge to home or self care 08/20/2024 9:06 AM [facility] - 08/20/2024 11:08 AM [facility] Emergency Department [address] [place] [address] Fei Murray MD Upper respiratory tract infection, unspecified type (Primary Dx); Peripheral edema Discharge Disposition: Discharge to home or self care 08/20/2024 2:24 AM [facility] - 08/20/2024 4:35 AM [facility] Emergency Department [address] [place] [address] Discharge Disposition: Left without being seen 08/18/2024 5:58 AM RN GERIATRIC - 08/18/2024 7:26 AM [facility] Emergency [facility] Emergency Department [address] [place] [phone] Lorenzo Peña MD Peripheral edema (Primary Dx) Discharge Disposition: Discharge to home or self care 08/17/2024 3:00 PM RN GERIATRIC Diagnostic [facility] Orthopaedic Surgery [address] [facility] 6th [place] [address] [place] [address] Luciano Nelson MD Encounter for examination of normal volunteer in research study 08/15/2024 12:23 AM RN GERIATRIC - 08/15/2024 1:52 AM [facility] Emergency [facility] Emergency Department [address] [place] [address] [place] (Primary Dx); Swelling Discharge Disposition: Discharge to home or self care 08/12/2024 8:23 PM RN GERIATRIC - 08/14/2024 1:56 PM RN GERIATRIC Hospital Encounter [facility] [address] [place] [phone] Batsheva Portillo MD Li, MD Lucille Garcia Alex, MD COVID-19 (Primary Dx); Recurrent syncope; Chest pain, unspecified type; Anemia, unspecified type; Elevated AST (SGOT); Elevated ALT measurement; Nonintractable headache, unspecified chronicity pattern, unspecified headache type Discharge Disposition: Discharge to home or self care 08/11/2024 3:49 AM RN GERIATRIC - 08/11/2024 4:35 AM [facility] Emergency [facility] Emergency Department [address] [place] [phone] Abdiel Hawkins MD Coronavirus infection (Primary Dx); Lightheadedness Discharge Disposition: Discharge to home or self care 08/08/2024 9:58 PM RN GERIATRIC - 08/08/2024 11:12 PM [facility] Emergency [facility] Emergency Department [address] [place] [phone] Karlo Gatica MD COVSARA (Primary Dx); Dehydration; Syncope, unspecified syncope type Discharge Disposition: Discharge to home or self care 08/07/2024 [facility] Eligibility Review [facility] Community Health Worker [address] [facility] [address] [place] [address] Darlene Zurita MT 08/06/2024 9:50 AM RN GERIATRIC - 08/06/2024 12:23 PM [facility] Emergency [facility] Emergency Department [address] [place] [address] Jassi Daniels MD Coronavirus infection (Primary Dx) Discharge Disposition: Discharge to home or self care 08/02/2024 12:46 PM RN GERIATRIC - 08/02/2024 1:16 PM [facility] Emergency [facility] Emergency Department [address] [place] [address] Gee Moran MD Chronic right shoulder pain (Primary Dx) Discharge Disposition: Discharge to home or self care 08/01/2024 2:00 AM RN GERIATRIC - 08/01/2024 3:17 AM [facility] Emergency [facility] Emergency Department [address] [place] [phone] Chronic right shoulder pain (Primary Dx); Encounter for medication refill Discharge Disposition: Discharge to home or self care 07/29/2024 9:38 PM RN GERIATRIC - 07/29/2024 11:38 PM [facility] Emergency [facility] Emergency Department [address] [place] [address] Cindy Hendricks MD Injury of right rotator cuff, subsequent encounter (Primary Dx) Discharge Disposition: Discharge to home or self care 07/24/2024 1:00 PM [facility] [address] [place] [address] Health 4th Floor [address] [place] [address] Right anterior shoulder pain (Primary Dx) 07/24/2024 Documentation [facility]ry [facility] [address] [place] [address] Outpatient Health [address] [place] [address] Cherie Ramirez, [facility] Social Work Services 07/19/2024 Documentation [facility] Psychiatry [facility] [address] [place] [address] Health [address] [place] [address] Cherie Ramirez, [employer] Social Work Services 06/26/2024 Orders Only [facility] Orthopaedic Surgery [address] [place] [address] 6th [place] [address] [place] [address] Michael Corona MD Encounter for examination of [...] drink = 0.6 oz pur e alcohol) [facility] Utilities Answer Date Recorded In [...] declined 08/14/2024 How often do you attend yazidism or mandaen serv ices? Patient declined 08/14/2024 Do you belong to any clubs o r organizations such as yazidism groups, unions, fraternal or athletic groups, or [...] time in the past 12 m [facility], were you homeless or living in a [facility] (including now)? Patient declined 08/14/2024 Personal Safety Answer Date Recorded Have you ever been in or are you currently in a harmful physical or emotional relationship or is someone making you feel afraid or unsafe? Denies 09/20/2024 Sex and Gender Information Value Date Recorded Sex Assigned at Not on file Legal Sex Male 9:25 PM RN GERIATRIC Gender Identity Not on file Sexual Orientation Straight 11/18/2022 7: 07 PM CDT Obstetrics History Last Filed Vital Signs Vital Sign Reading Time Taken Comments Blood Pressure 109/61 09/20/2024 3:48 PM RN GERIATRIC Pulse 86 09/20/2024 3:48 PM RN GERIATRIC Temperature 37 C (98.6 F) 09/20/2024 3:48 PM RN GERIATRIC Respiratory Rate 18 09/20/2024 3:48 PM RN GERIATRIC Oxygen Saturation 99% 09/20/2024 3:48 PM RN GERIATRIC Inhaled Oxygen Concentration - - Weight 74.8 kg (165 lb) 09/20/2024 3:48 PM RN GERIATRIC Height 172.7 cm (5' 8 ) 09/20/2024 1:22 AM RN GERIATRIC Body Mass Index 25.09 09/20/2024 1:22 AM RN GERIATRIC Plan of Treatment Health Maintenance Due Date [...] AND COVID-19 PCR STAT 09/20/2024 1:25 AM RN GERIATRIC PRO B-TYPE NATRIURETIC PEPTIDE Add-On 09/18/2024 1:35 PM RN GERIATRIC EGFR STAT 09/18/2024 1:35 PM RN GERIATRIC DIFFERENTIAL AUTO STAT 09/18/2024 1:3 5 PM RN GERIATRIC COMPREHENSIVE METABOLIC PANEL STAT 09/18/2024 1:35 PM RN GERIATRIC CBC WITH AUTO DIFFERENTIAL STAT 09/18/2024 1:35 PM RN GERIATRIC EGFR STAT 09/11/2024 9:10 PM RN GERIATRIC DIFFERENTIAL AUTO STAT 09/11/2024 9:1 0 PM RN GERIATRIC PRO B-TYPE NATRIURETIC PEPTIDE STAT 09/11/2024 9:10 PM RN GERIATRIC COMPREHENSIVE METABOLIC PANEL STAT 09/11/2024 9:10 PM RN GERIATRIC CBC WITH AUTO DIFFERENTIAL STAT 09/11/2024 9:10 PM RN GERIATRIC EGFR STAT 09/07/2024 2:59 AM RN GERIATRIC DIFFERENTIAL AUTO STAT 09/07/2024 2:5 9 AM RN GERIATRIC BASIC METABOLIC PANEL STAT 09/07/2024 2:59 AM RN GERIATRIC CBC WITH AUTO DIFFERENTIAL STAT 09/07/2024 2:59 AM RN GERIATRIC US VEIN DUPLEX LOWER EXTREMITY BILATERAL COMPLETE ED 09/03/2024 7:37 PM RN GERIATRIC MRI SHOULDER RIGHT WO CONTRAST Schedule Routine, Read Routine (OP Routine) 09/02/2024 9:06 AM RN GERIATRIC Right anterior shoulder pain XR ANKLE RIGHT 2 VIEWS ED 09/01/2024 9:33 PM RN GERIATRIC XR TIBIA FIBULA RIGHT2 VIEWS ED 09/01/2024 8:37 AM RN GERIATRIC XR ANKLE RIGHT 3 OR MORE VIEWS ED 08/31/2024 10:35 PM RN GERIATRIC XR FOOT RIGHT 3 OR MORE VIEWS ED 08/31/2024 10:34 PM RN GERIATRIC EGFR STAT 08/23/2024 2:33 AM RN GERIATRIC DIFFERENTIAL AUTO STAT 08/23/2024 2:3 3 AM RN GERIATRIC PRO B-TYPE NATRIURETIC PEPTIDE STAT 08/23/2024 2:33 AM RN GERIATRIC COMPREHENSIVE METABOLIC PANEL STAT 08/23/2024 2:33 AM RN GERIATRIC CBC WITH AUTO DIFFERENTIAL STAT 08/23/2024 2:33 AM RN GERIATRIC SEPSIS LACTATE WITH REFLEX Routine 08/23/2024 2:33 AM RN GERIATRIC BLOOD CULTURE Routine 08/23/2024 2:33 AM RN GERIATRIC BLOOD CULTURE Routine 08/23/2024 2:33 AM RN GERIATRIC ECG 12-LEAD STAT 08/23/2024 2:32 AM RN GERIATRIC EGFR STAT 08/21/2024 12:35 AM RN GERIATRIC DIFFERENTIAL AUTO STAT 08/21/2024 12: 35 AM RN GERIATRIC CRP (ACUTE PHASE) STAT 08/21/2024 12: 35 AM RN GERIATRIC ERYTHROCYTE SEDIMENTATION RATE STAT 08/21/2024 12:35 AM RN GERIATRIC BASIC METABOLIC PANEL STAT 08/21/2024 12:35 AM RN GERIATRIC CBC WITH AUTO DIFFERENTIAL STAT 08/21/2024 12:35 AM RN GERIATRIC STREPTOCOCCUS GROUP A PCR STAT 08/20/2024 9:19 AM RN GERIATRIC RESPIRATORY PATHOGEN PANEL Routine 08/20/2024 9:19 AM RN GERIATRIC D-DIMER, QUANTITATIVE STAT 08/15/2024 1:08 AM RN GERIATRIC PRO B-TYPE NATRIURETIC PEPTIDE STAT 08/14/2024 9:59 PM RN GERIATRIC EGFR STAT 08/14/2024 9:59 PM RN GERIATRIC DIFFERENTIAL AUTO STAT 08/14/2024 9:5 9 PM RN GERIATRIC LIPASE STAT 08/14/2024 9:59 PM RN GERIATRIC COMPREHENSIVE METABOLIC PANEL STAT 08/14/2024 9:59 PM RN GERIATRIC CBC WITH AUTO DIFFERENTIAL STAT 08/14/2024 9:59 PM RN GERIATRIC TRANSTHORACIC ECHO (TTE) COMPLETE W DOPPLER/CF WO CONTRAST Routine 08/14/2024 11:39 AM RN GERIATRIC HEPATIC FUNCTION PANEL Routine 08/13/2024 5:30 AM RN GERIATRIC EGFR Routine 08/13/2024 5:30 AM RN GERIATRIC CBC WITHOUT DIFFERENTIAL Routine 08/13/2024 5:30 AM RN GERIATRIC PHOSPHORUS Routine 08/13/2024 5:30 AM RN GERIATRIC MAGNESIUM Routine 08/13/2024 5:30 AM RN GERIATRIC BASIC METABOLIC PANEL Routine 08/13/2024 5:30 AM RN GERIATRIC FERRITIN Routine 08/13/2024 5:30 AM RN GERIATRIC DRUGS OF ABUSE SCREEN, URINE WITH REFLEX CONFIRMATION Routine 08/13/2024 12:15 AM RN GERIATRIC URINALYSIS AND REFLEX TO MICROSCOPIC AND CULTURE STAT 08/13/2024 12:[address] CHEST PE W CONTRAST ED 08/12/2024 11:48 PM RN GERIATRIC US VEIN DUPLEX LOWER EXTREMITY BILATERAL COMPLETE ED 08/12/2024 11:46 PM RN GERIATRIC US RUQ ED 08/12/2024 11:38 PM RN GERIATRIC ADD ON LAB TEST Add-On 08/12/2024 10:[address] HEAD AND CERVICAL SPINE WO CONTRAST ED 08/12/2024 10:20 PM RN GERIATRIC D-DIMER, QUANTITATIVE STAT 08/12/2024 10:05 PM RN GERIATRIC PROTIME-INR STAT 08/12/2024 10:05 PM RN GERIATRIC ADD ON LAB TEST Add-On 08/12/2024 9:53 PM RN GERIATRIC ADD ON LAB TEST Add-On 08/12/2024 9:53 PM RN GERIATRIC ADD ON LAB TEST Add-On 08/12/2024 9:53 PM RN GERIATRIC ADD ON LAB TEST Add-On 08/12/2024 9:53 PM RN GERIATRIC ADD ON LAB TEST Add-On 08/12/2024 9:53 PM RN GERIATRIC ADD ON LAB TEST Add-On 08/12/2024 9:53 PM RN GERIATRIC ADD ON LAB TEST Add-On 08/12/2024 9:53 PM RN GERIATRIC ETHANOL STAT 08/12/2024 9:52 PM RN GERIATRIC TROPONIN T HIGH-SENSITIVITY 2-HOUR Timed 08/12/2024 9:52 PM RN GERIATRIC ACETAMINOPHEN LEVEL STAT 08/12/2024 9 :13 PM RN GERIATRIC HEPATITIS PANEL, ACUTE STAT 08/12/2024 9:13 PM RN GERIATRIC PRO B-TYPE NATRIURETIC PEPTIDE STAT 08/12/2024 8:08 PM RN GERIATRIC THYROID FUNCTION CASCADE STAT 08/12/2024 8:08 PM RN GERIATRIC FOLATE STAT 08/12/2024 8:08 PM RN GERIATRIC IRON PROFILE W/ IBC STAT 08/12/2024 8 :08 PM RN GERIATRIC VITAMIN B12 STAT 08/12/2024 8:08 PM RN GERIATRIC MAGNESIUM STAT 08/12/2024 8:08 PM RN GERIATRIC PHOSPHORUS STAT 08/12/2024 8:08 PM RN GERIATRIC EGFR STAT 08/12/2024 8:08 PM RN GERIATRIC DIFFERENTIAL AUTO STAT 08/12/2024 8:0 8 PM RN GERIATRIC TROPONIN T HIGH-SENSITIVITY SERIES (BASELINE, 2HR, 4HR, 6HR) STAT 08/12/2024 8:08 PM RN GERIATRIC COMPREHENSIVE METABOLIC PANEL STAT 08/12/2024 8:08 PM RN GERIATRIC CBC WITH AUTO DIFFERENTIAL STAT 08/12/2024 8:08 PM RN GERIATRIC XR CHEST PA LATERAL 2 VIEWS ED 08/12/2024 7:27 PM RN GERIATRIC ECG 12-LEAD STAT 08/12/2024 6:48 PM RN GERIATRIC XR CHEST PA LATERAL 2 VIEWS ED 08/11/2024 2:02 AM RN GERIATRIC ECG 12-LEAD STAT 08/11/2024 1:43 AM RN GERIATRIC XR CHEST PA LATERAL 2 VIEWS ED 08/08/2024 10:[address] HEAD WO CONTRAST ED 08/08/2024 1 0:34 PM RN GERIATRIC ECG 12-LEAD STAT 08/08/2024 8:56 PM RN GERIATRIC RESPIRATORY PATHOGEN PANEL Routine 08/06/2024 9:59 AM RN GERIATRIC from Last 3 Months Results * Influenza A/B, RSV, and COVID-19 PCR Nasopharyngeal (09/20/2024 1:25 AM RN GERIATRIC) COVID-19 RNA Negative Negative Influenza A RNA Negative Negative [facility] ([place]) Influenza B RNA Negative Negative [facility] ([place]) RSV RNA Negative Negative [facility] ([place]) Comment: Interpretive data: Testing performed by [facility]. This test is performed using the [employer] Xpert Xpress CoV-2/Flu/RSV plus assay. This is a multiplex, real- time reverse transcriptase PCR assay intended for the qualitative detection of nucleic acid from SARS-CoV-2, influenza A, influenza B, and respiratory syncytial virus. This assay has been cleared by the [place] Food and Drug administration. The performance characteristics have been verified by the [facility]. Results must be considered in the clinical context, and a negative result does not rule out infection. Interpretive Data last revised 2023 Nasopharyngeal 09/20/2024 1: 25 AM RN GERIATRIC 09/20/2024 1:29 AM RN GERIATRIC Narrative JAMESLEN CHAVIS ([place]) - 09/20/2024 2:07 AM RN GERIATRIC Is the Patient experiencing symptoms consistent with COVID?->Yes us Cesar Chiang MD LAB MICROBIOLOGY - GENERAL ORD ERABLES Final Result [facility] [place] 1 [facility] Department [place] [address] * eGFR (09/18/2024 1:35 PM RN GERIATRIC) eGFR >90 >=60 mL/min/1. 73 m2 Comment: [...] last reviewed 2021. Blood 09/18/2024 1:35 PM RN GERIATRIC 09/18/2024 1:38 PM RN GERIATRIC us Megan Dill MD LAB BLOOD ORDERABLE S Final Result [facility] ([place]) 1 [facility] [place] [address] * Differential, auto (09/18/2024 1:35 PM RN GERIATRIC) Neutrophil abs 4.8 1.5 - 6.5 K/cumm [...] Neutrophil pct 72.6 % [facility] ([place]) Comment: Interpretive Data Percent cell count reference [...] revised on 2017. Blood 09/18/2024 1:35 PM RN GERIATRIC 09/18/2024 1:38 PM RN GERIATRIC us Megan Dill MD LAB BLOOD ORDERABLE S Final Result [facility] [place]) 1 [facility] Department [place] [address] * Pro B-type natriuretic peptide (09/18/2024 1:35 PM RN GERIATRIC) NT-proBNP <36 <=300 pg/mL Comment: Interpretive Comments: [...] Revised Date: 2018. Blood 09/18/2024 1:35 PM RN GERIATRIC 09/18/2024 6:28 PM RN GERIATRIC us Jossue Cox NP LAB BLOOD ORDERABLES Final Result [facility] ([place]) 1 [facility] [place] [address] * CBC with auto differential (09/18/2024 1:35 PM RN GERIATRIC) WBC 6.6 3.8 - 9.9 K/cumm Hgb [...] [facility] ([place]) Blood 09/18/2024 1:35 PM RN GERIATRIC 09/18/2024 1:38 PM RN GERIATRIC us Megan Dill MD LAB BLOOD ORDERABLE S Final Result [facility] ([place]) 1 [facility] [place] [address] * Comprehensive metabolic panel (09/18/2024 1:35 PM RN GERIATRIC) Sodium 140 135 - 145 mmol/L Potassium, [...] Hemolyzed S pecimen Blood 09/18/2024 1:35 PM RN GERIATRIC 09/18/2024 1:38 PM RN GERIATRIC us Megan Dill MD LAB BLOOD ORDERABLE S Final Result [facility] ([place]) 1 [facility] Department [place] [address] * eGFR (09/11/2024 9:10 PM RN GERIATRIC) [facility] eGFR >90 >=60 mL/min/1. [...] last reviewed 2021. Blood 09/11/2024 9:10 PM RN GERIATRIC 09/11/2024 9:30 PM RN GERIATRIC us Salena Crawley MD LAB BLOOD ORDERABLES Fin al Result [facility] [address] Department [place] [address] * Differential, auto (09/11/2024 9:10 PM RN GERIATRIC) [facility] Neutrophil abs 3.8 1.5 - 6.5 K/cumm Imm gran abs 0.0 0.0 - 0.1 K/cumm [facility] Lymphocyte abs 1.1 0.8 - 3.3 K/cumm [facility] Monocyte abs 0.5 0.2 - 0.8 K/cumm [facility] Eosinophil abs 0.2 0.0 - 0.5 K/cumm [facility] Basophil abs 0.0 0.0 - 0.1 K/cumm [facility] Neutrophil pct 67.2 % [facility] Comment: Interpretive Data Percent cell count reference ranges are not reported, since discordance with absolute values may lead to misinterpretation of CBC data. Current Interpretive Data was last revised on 2017. Imm gran pct 0.4 % [facility] Comment: Interpretive Data Percent cell count reference ranges are not reported, since discordance with absolute values may lead to misinterpretation of CBC data. Current Interpretive Data was last revised on 2017. Lymphocyte pct 20.1 % [facility] Comment: Interpretive Data Percent cell count reference ranges are not reported, since discordance with absolute values may lead to misinterpretation of CBC data. Current Interpretive Data was last revised on 2017. Monocyte pct 8.6 % [facility] Comment: Interpretive Data Percent cell count reference ranges are not reported, since discordance with absolute values may lead to misinterpretation of CBC data. Current Interpretive Data was last revised on 2017. Eosinophil pct 3.2 % [facility] Comment: Interpretive Data Percent cell count reference ranges are not reported, since discordance with absolute values may lead to misinterpretation of CBC data. Current Interpretive Data was last revised on 2017. Basophil pct 0.5 % [facility] Comment: Interpretive Data Percent cell count reference ranges are not reported, since discordance with absolute values may lead to misinterpretation of CBC data. Current Interpretive Data was last revised on 2017. Blood 09/11/2024 9:10 PM RN GERIATRIC 09/11/2024 9:30 PM RN GERIATRIC Salena Crawley MD LAB BLOOD ORDERABLES Fin al Result [facility] [address] Department [place] [address] * Pro B-type natriuretic peptide (09/11/2024 9:10 PM RN GERIATRIC) NT-proBNP <36 <=300 pg/mL Comment: Interpretive Comments: [...] Revised Date: 2018. Blood 09/11/2024 9:10 PM RN GERIATRIC 09/11/2024 9:30 PM RN GERIATRIC us Salena Crawley MD LAB BLOOD ORDERABLES Fin al Result [facility] [address] Department [place] [address] * CBC with auto differential (09/11/2024 9:10 PM RN GERIATRIC) WBC 5.7 3.8 - 9.9 K/cumm Hgb 13.1 13.0 - 17.5 g/dL [facility] Hct 40.0 38.9 - 50.3 % [facility] Plt 184 150 - 400 K/cumm [facility] MPV 10.6 9.1 - 12.3 fL [facility] RBC 4.43 4.30 - 5.80 M/cumm [facility] MCV 90.3 81.3 - 96.4 fL [facility] MCH 29.6 27.1 - 33.3 pg [facility] MCHC 32.8 32.3 - 35.7 g/dL [facility] RDW CV 12.7 11.1 - 14.9 % [facility] RDW SD 41.7 35.7 - 48.1 fL [facility] NRBC abs 0.00 0.00 - 0.01 K/cumm [facility] Blood 09/11/2024 9:10 PM RN GERIATRIC 09/11/2024 9:30 PM RN GERIATRIC us Salena Crawley MD LAB BLOOD ORDERABLES Fin al Result [facility] [address] Department [place] [address] * (ABNORMAL) Comprehensive metabolic panel (09/11/2024 9:10 PM RN GERIATRIC) Sodium 142 135 - 145 mmol/L Potassium, pl 4.3 3.3 - 4.9 mmol/L [facility] Chloride 101 97 - 110 mmol/L [facility] CO2 28 22 - 32 mmol/L [facility] Anion gap 13 2 - 15 mmol/L [facility] BUN 28(H) 6 - 25 mg/dL [facility] Creatinine 0.89 0.80 - 1.30 mg/dL [facility] Glucose 113 70 - 199 mg/dL [facility] Comment: Interpretive Data Fasting glucose [...] 2022. Calcium 9.2 8.5 - 10.3 mg/dL [facility] Bilirubin, total 0.8 0.1 - 1.2 mg/dL [facility] Protein, pl 6.7 6.5 - 8.5 g/dL [facility] Albumin 4.0 3.5 - 5.0 g/dL [facility] Alk phos 79 40 - 130 Units/L [facility] ALT 62(H) 7 - 55 Units/L [facility] AST 40 10 - 50 Units/L [facility] Comment:Slightly Hemolyzed S pecimen Blood 09/11/2024 9:10 PM RN GERIATRIC 09/11/2024 9:30 PM RN GERIATRIC us Salena Crawley MD LAB BLOOD ORDERABLES Fin al Result Performing Organization Address City/State/[facility] Co de Phone Number [facility] [address] Department [place] [address] * eGFR (09/07/2024 2:59 AM RN GERIATRIC) eGFR >90 >=60 mL/min/1. 73 m2 Comment: [...] last reviewed 2021. Blood 09/07/2024 2:59 AM RN GERIATRIC 09/07/2024 3:02 AM RN GERIATRIC us Jair Armendariz MD LAB BLOOD ORDERABLES Final Result [facility] [address] [facility] [address] Department [place] [address] * Differential, auto (09/07/2024 2:59 AM RN GERIATRIC) Neutrophil abs 3.0 1.5 - 6.5 K/cumm Imm gran abs 0.0 0.0 - 0.1 K/cumm [facility] Lymphocyte abs 2.1 0.8 - 3.3 K/cumm [facility] Monocyte abs 0.4 0.2 - 0.8 K/cumm [facility] Eosinophil abs 0.2 0.0 - 0.5 K/cumm [facility] Basophil abs 0.0 0.0 - 0.1 K/cumm [facility] Neutrophil pct 51.2 % [facility] Comment: Interpretive Data Percent cell count reference ranges are not reported, since discordance with absolute values may lead to misinterpretation of CBC data. Current Interpretive Data was last revised on 2017. Imm gran pct 0.3 % [facility] Comment: Interpretive Data Percent cell count reference ranges are not reported, since discordance with absolute values may lead to misinterpretation of CBC data. Current Interpretive Data was last revised on 2017. Lymphocyte pct 36.9 % [facility] Comment: Interpretive Data Percent cell count reference ranges are not reported, since discordance with absolute values may lead to misinterpretation of CBC data. Current Interpretive Data was last revised on 2017. Monocyte pct 6.9 % [facility] Comment: Interpretive Data Percent cell count reference ranges are not reported, since discordance with absolute values may lead to misinterpretation of CBC data. Current Interpretive Data was last revised on 2017. Eosinophil pct 4.0 % [facility] Comment: Interpretive Data Percent cell count reference ranges are not reported, since discordance with absolute values may lead to misinterpretation of CBC data. Current Interpretive Data was last revised on 2017. Basophil pct 0.7 % [facility] Comment: Interpretive Data Percent cell count reference ranges are not reported, since discordance with absolute values may lead to misinterpretation of CBC data. Current Interpretive Data was last revised on 2017. Blood 09/07/2024 2:59 AM RN GERIATRIC 09/07/2024 3:02 AM RN GERIATRIC Jair Armendariz MD LAB BLOOD ORDERABLES Final Result Performing Organization Address City/[facility]/ZIP Co de Phone Number [address] [place] [address] Department [place] [address] * (ABNORMAL) CBC with auto differential (09/07/2024 2:59 AM RN GERIATRIC) Pathologist [facility] WBC 5.8 3.8 - 9.9 K/cumm Hgb 12.3(L) 13.0 - 17.5 g/dL [facility] Hct 37.2(L) 38.9 - 50.3 % [facility] Plt 163 150 - 400 K/cumm [facility] MPV 10.4 9.1 - 12.3 fL [facility] RBC 4.17(L) 4.30 - 5.80 M/cumm [facility] MCV 89.2 81.3 - 96.4 fL [facility] MCH 29.5 27.1 - 33.3 pg [facility] MCHC 33.1 32.3 - 35.7 g/dL [facility] RDW CV 12.6 11.1 - 14.9 % [facility] RDW SD 41.1 35.7 - 48.1 fL [facility] NRBC abs 0.00 0.00 - 0.01 K/cumm [facility] Blood 09/07/2024 2:59 AM RN GERIATRIC 09/07/2024 3:02 AM RN GERIATRIC Jair Armendariz MD LAB BLOOD ORDERABLES Final Result [address] Department [place] [address] * Basic metabolic panel (09/07/2024 2:59 AM RN GERIATRIC) Sodium 143 135 - 145 mmol/L Potassium, pl 4.4 3.3 - 4.9 mmol/L [facility] Chloride 109 97 - 110 mmol/L [facility] CO2 25 22 - 32 mmol/L [facility] Anion gap 9 2 - 15 mmol/L [facility] BUN 24 6 - 25 mg/dL [facility] Creatinine 0.87 0.80 - 1.30 mg/dL [facility] Glucose 86 70 - 199 mg/dL [facility] Comment: Interpretive Data Fasting glucose >/= 126 [...] 2022. Calcium 9.1 8.5 - 10.3 mg/dL [facility] Blood 09/07/2024 2:59 AM RN GERIATRIC 09/07/2024 3:02 AM RN GERIATRIC us Jair Armendariz MD LAB BLOOD ORDERABLES Final Result [facility] [address] [facility] Department [place] [address] * US Vein Duplex Lower Extremity Bilateral Complete (09/03/2024 7:37 PM RN GERIATRIC) Anatomical Region Laterality Modality Vascular Bilateral Ultrasound 09/04/2024 2:26 PM RN GERIATRIC Impressions 09/04/2024 2:26 PM RN GERIATRIC 1. No evidence of DVT in the lower extremities bilaterally. 2. Evidence of pulsatile venous flow. This may suggest increased intravascular volume or right-sided valvular heart disease. Clinical correlation suggested. 3. No change when compared to previous studies. Electronically signed by: Lv Smart M.D. Narrative 09/04/2024 2:26 PM RN GERIATRIC Lower Extremity Vein Duplex Bilateral DATE: 09/03/2024 [...] Shoulder Right WO Contrast (09/02/2024 9:06 AM RN GERIATRIC) Anatomical Region Laterality Modality Upper Extremities Right Magnetic Reson ance 09/02/2024 11:0 8 AM RN GERIATRIC Impressions 09/02/2024 12:42 PM RN GERIATRIC 1. Minimal right rotator cuff tendinopathy without [...] Gudelia Berger MD Narrative 09/02/2024 12:42 PM RN GERIATRIC EXAMINATION: 1. MRI right shoulder without contrast [...] Ankle Right 2 Views (09/01/2024 9:33 PM RN GERIATRIC) Anatomical Region Laterality Modality Lower Extremities, Ankle Right Compute d Radiography 09/02/2024 8:13 AM RN GERIATRIC Impressions 09/02/2024 8:13 AM RN GERIATRIC There is mild swelling about the right ankle. There is a fracture of the base of 5th metacarpal, similar to prior. No additional fractures. The joints are normal. Electronically signed by: Brice Mantilla M.D. Narrative 09/02/2024 8:13 AM RN GERIATRIC EXAMINATION: XR ANKLE RIGHT 2 VIEWS HISTORY: [...] Fibula Right 2 views (09/01/2024 8:37 AM RN GERIATRIC) Anatomical Region Laterality Modality Lower Extremities, Lower Leg Right Com puted Radiography 09/01/2024 8:45 AM RN GERIATRIC Impressions 09/01/2024 8:45 AM RN GERIATRIC No acute fracture of the tibia or fibula. Alignment is normal. Electronically signed by: Greg Joy M.D. Narrative 09/01/2024 8:45 AM RN GERIATRIC EXAMINATION: XR TIBIA FIBULA RIGHT2 VIEWS HISTORY: Pain s/p twisting injury Procedure Note Greg Joy MD - 09/01/2024 EXAMINATION: XR TIBIA FIBULA RIGHT2 VIEWS HISTORY: Pain s/p twisting injury IMPRESSION: No acute fracture of the tibia or fibula. Alignment is normal. Electronically signed by: Greg Davdi-Flewelling, M.D. us Terry MARQUES IMG XR PROCEDURES F inal Result * XR Ankle Right 3 or More Views (08/31/2024 10:35 PM RN GERIATRIC) Anatomical Region Laterality Modality Lower Extremities, Ankle Right Compute d Radiography 09/01/2024 11:1 6 AM RN GERIATRIC Impressions 09/01/2024 11:16 AM RN GERIATRIC Comparison is made to a prior study [...] Ness Liz M.D. Narrative 09/01/2024 11:16 AM RN GERIATRIC EXAMINATION: XR ANKLE RIGHT 3 OR MORE [...] 3 or More Views (08/31/2024 10:34 PM RN GERIATRIC) Anatomical Region Laterality Modality Lower Extremities, Foot Right Computed Radiography 09/01/2024 11:1 6 AM RN GERIATRIC Impressions 09/01/2024 11:16 AM RN GERIATRIC Comparison is made to a prior study [...] Ness Liz M.D. Narrative 09/01/2024 11:16 AM RN GERIATRIC EXAMINATION: XR ANKLE RIGHT 3 OR MORE [...] Sepsis Lactate w/ Reflex (08/23/2024 2:33 AM RN GERIATRIC) [facility] Sepsis Lactate 0.7 0.7 - 2.0 mmol/L Blood 08/23/2024 2:33 AM RN GERIATRIC 08/23/2024 2:46 AM RN GERIATRIC us Salena Crawley MD LAB BLOOD ORDERABLES Fin al Result [facility] [address] Department [place] [address] * eGFR (08/23/2024 2:33 AM RN GERIATRIC) [facility] eGFR >90 >=60 mL/min/1. [...] last reviewed 2021. Blood 08/23/2024 2:33 AM RN GERIATRIC 08/23/2024 3:24 AM RN GERIATRIC Salena Crawley MD LAB BLOOD ORDERABLES Fin al Result [facility] [address] Department [place] [address] * Differential, auto (08/23/2024 2:33 AM RN GERIATRIC) Neutrophil abs 3.1 1.5 - 6.5 K/cumm Imm gran abs 0.0 0.0 - 0.1 K/cumm [facility] Lymphocyte abs 2.0 0.8 - 3.3 K/cumm [facility] Monocyte abs 0.5 0.2 - 0.8 K/cumm [facility] Eosinophil abs 0.2 0.0 - 0.5 K/cumm [facility] Basophil abs 0.1 0.0 - 0.1 K/cumm [facility] Neutrophil pct 53.2 % [facility] Comment: Interpretive Data Percent cell count reference ranges are not reported, since discordance with absolute values may lead to misinterpretation of CBC data. Current Interpretive Data was last revised on 2017. Imm gran pct 0.2 % [facility] Comment: Interpretive Data Percent cell count reference ranges are not reported, since discordance with absolute values may lead to misinterpretation of CBC data. Current Interpretive Data was last revised on 2017. Lymphocyte pct 34.0 % [facility] Comment: Interpretive Data Percent cell count reference ranges are not reported, since discordance with absolute values may lead to misinterpretation of CBC data. Current Interpretive Data was last revised on 2017. Monocyte pct 7.8 % [facility] Comment: Interpretive Data Percent cell count reference ranges are not reported, since discordance with absolute values may lead to misinterpretation of CBC data. Current Interpretive Data was last revised on 2017. Eosinophil pct 3.8 % [facility] Comment: Interpretive Data Percent cell count reference ranges are not reported, since discordance with absolute values may lead to misinterpretation of CBC data. Current Interpretive Data was last revised on 2017. Basophil pct 1.0 % [facility] Comment: Interpretive Data Percent cell count reference ranges are not reported, since discordance with absolute values may lead to misinterpretation of CBC data. Current Interpretive Data was last revised on 2017. Blood 08/23/2024 2:33 AM RN GERIATRIC 08/23/2024 3:24 AM RN GERIATRIC us Salena Crawley MD LAB BLOOD ORDERABLES Fin al Result [facility] [address] Department [place] [address] * Pro B-type natriuretic peptide (08/23/2024 2:33 AM RN GERIATRIC) NT-proBNP <36 <=300 pg/mL Comment: Interpretive Comments: [...] Revised Date: 2018. Blood 08/23/2024 2:33 AM RN GERIATRIC 08/23/2024 3:24 AM RN GERIATRIC us Salena Crawley MD LAB BLOOD ORDERABLES Fin al Result [facility] [address] Department [place] [address] * (ABNORMAL) CBC with auto differential (08/23/2024 2:33 AM RN GERIATRIC) WBC 5.8 3.8 - 9.9 K/cumm Hgb 12.9(L) 13.0 - 17.5 g/dL [facility] Hct 39.2 38.9 - 50.3 % [facility] Plt 205 150 - 400 K/cumm [facility] MPV 10.8 9.1 - 12.3 fL [facility] RBC 4.39 4.30 - 5.80 M/cumm [facility] MCV 89.3 81.3 - 96.4 fL [facility] MCH 29.4 27.1 - 33.3 pg [facility] MCHC 32.9 32.3 - 35.7 g/dL [facility] RDW CV 12.8 11.1 - 14.9 % [facility] RDW SD 41.8 35.7 - 48.1 fL [facility] NRBC abs 0.00 0.00 - 0.01 K/cumm [facility] Blood 08/23/2024 2:33 AM RN GERIATRIC 08/23/2024 3:24 AM RN GERIATRIC Salena Crawley MD LAB BLOOD ORDERABLES Fin al Result Performing Organization Address City/[facility]/ZIP Co de Phone Number [facility] [address] Department of [employer] [place] [address] * Blood culture Blood (08/23/2024 2:33 AM RN GERIATRIC) Report Final Report: No growth Blood 08/23/2024 2:33 AM RN GERIATRIC 08/23/2024 2:47 AM RN GERIATRIC Narrative [facility] - 08/28/2024 7:01 AM RN GERIATRIC From a different site than #1. Collection->Peripheral [...] organism identification may be performed using the LecereArray Blood Culture Identification panel. This assay detects microbial DNA in a blood culture broth. This assay has been cleared by the [place] Food and Drug Administration and its performance characteristics have been verified by the [facility]. Interpretive data was last revised on September 03, 2022. Salena Crawley MD LAB MICROBIOLOGY - GENER AL ORDERABLES Final Result Performing Organization Address City/[facility]/ZIP Co de Phone Number [facility] [address] Department [email or web address] [place], [place] [id number] * Blood culture Blood (08/23/2024 2:33 AM RN GERIATRIC) Report Final Report: No growth Blood 08/23/2024 2:33 AM RN GERIATRIC 08/23/2024 2:48 AM RN GERIATRIC Narrative [facility] - 08/28/2024 7:01 AM RN GERIATRIC Collection->Peripheral Interpretive Data 1. Blood cultures are incubated and monitored continuously for 5 days (120 hours). The first negative report is issued within 24 hours of receipt in the laboratory. 2. All positive cultures are resulted and called to physicians/care providers as soon as they are detected. 3. A rapid molecular test for organism identification may be performed using the Bio[employer] Blood Culture Identification panel. This assay detects microbial DNA in a blood culture broth. This assay has been cleared by the [place] Food and Drug Administration and its performance characteristics have been verified by the [facility]. Interpretive data was last revised on September 03, 2022. us Salena Crawley MD LAB MICROBIOLOGY - GENER AL ORDERABLES Final Result [facility] [address] Department [place] [address] * (ABNORMAL) Comprehensive metabolic panel (08/23/2024 2:33 AM RN GERIATRIC) Sodium 140 135 - 145 mmol/L Potassium, pl 3.9 3.3 - 4.9 mmol/L [facility] Chloride 104 97 - 110 mmol/L [facility] CO2 25 22 - 32 mmol/L [facility] Anion gap 11 2 - 15 mmol/L [facility] BUN 24 6 - 25 mg/dL [facility] Creatinine 0.82 0.80 - 1.30 mg/dL [facility] Glucose 83 70 - 199 mg/dL [facility] Comment: Interpretive Data Fasting glucose [...] 2022. Calcium 9.3 8.5 - 10.3 mg/dL [facility] Bilirubin, total 0.6 0.1 - 1.2 mg/dL [facility] Protein, pl 6.9 6.5 - 8.5 g/dL [facility] Albumin 4.0 3.5 - 5.0 g/dL [facility] Alk phos 70 40 - 130 Units/L [facility] ALT 65(H) 7 - 55 Units/L [facility] AST 30 10 - 50 Units/L [facility] Comment:Slightly Hemolyzed S pecimen Blood 08/23/2024 2:33 AM RN GERIATRIC 08/23/2024 3:24 AM RN GERIATRIC Result [facility] Salena Crawley MD LAB BLOOD ORDERABLES Fin al Result Performing Organization Address [facility] Co de Phone Number [facility] [address] Department [place] [address] * ECG 12 lead (08/23/2024 2:32 AM RN GERIATRIC) 08/23/2024 2:32 AM RN GERIATRIC Narrative [facility] - 08/24/2024 4:38 PM RN GERIATRIC Vent Rate: 64 bpm RR Interval: 935 msec NV Interval: 174 msec QRS Duration: 109 msec QT Interval: 409 msec QTC Interval: 418 msec P-R-T Elizabeth: 68 - 81 - 41 degrees IMPRESSION: SINUS RHYTHM NORMAL ECG Electronically Signed By: Andrea Moralez MD [facility] Salena Crawley MD ECG ORDERABLES Final Re sult [facility] Multichannel [facility] * eGFR (08/21/2024 12:35 AM RN GERIATRIC) eGFR >90 >=60 mL/min/1. 73 m2 Comment: [...] reviewed 2021. Blood 08/21/2024 12:3 5 AM RN GERIATRIC 08/21/2024 12:40 AM RN GERIATRIC us Magalis MARQUES LAB BLOOD ORDERABLE S Final Result [address] Department [place] [address] * Differential, auto (08/21/2024 12:35 AM RN GERIATRIC) Neutrophil abs 3.7 1.5 - 6.5 K/cumm Imm gran abs 0.0 0.0 - 0.1 K/cumm [facility] Lymphocyte abs 2.2 0.8 - 3.3 K/cumm [facility] Monocyte abs 0.6 0.2 - 0.8 K/cumm [facility] Eosinophil abs 0.3 0.0 - 0.5 K/cumm [facility] Basophil abs 0.1 0.0 - 0.1 K/cumm [facility] Neutrophil pct 54.1 % [facility] Comment: Interpretive Data Percent cell count reference ranges are not reported, since discordance with absolute values may lead to misinterpretation of CBC data. Current Interpretive Data was last revised on 2017. Imm gran pct 0.1 % [facility] Comment: Interpretive Data Percent cell count reference ranges are not reported, since discordance with absolute values may lead to misinterpretation of CBC data. Current Interpretive Data was last revised on 2017. Lymphocyte pct 32.5 % [facility] Comment: Interpretive Data Percent cell count reference ranges are not reported, since discordance with absolute values may lead to misinterpretation of CBC data. Current Interpretive Data was last revised on 2017. Monocyte pct 8.3 % [facility] Comment: Interpretive Data Percent cell count reference ranges are not reported, since discordance with absolute values may lead to misinterpretation of CBC data. Current Interpretive Data was last revised on 2017. Eosinophil pct 4.3 % [facility] Comment: Interpretive Data Percent cell count reference ranges are not reported, since discordance with absolute values may lead to misinterpretation of CBC data. Current Interpretive Data was last revised on 2017. Basophil pct 0.7 % [facility] Comment: Interpretive Data Percent cell count reference ranges are not reported, since discordance with absolute values may lead to misinterpretation of CBC data. Current Interpretive Data was last revised on 2017. Blood 08/21/2024 12:3 5 AM RN GERIATRIC 08/21/2024 12:40 AM RN GERIATRIC us Magalis MARQUES LAB BLOOD ORDERABLE S Final Result [facility] [address] [facility] Department [place] [address] * (ABNORMAL) CBC with auto differential (08/21/2024 12:35 AM RN GERIATRIC) WBC 6.9 3.8 - 9.9 K/cumm Hgb 12.1(L) 13.0 - 17.5 g/dL [facility] [facility] Hct 36.8(L) 38.9 - 50.3 % [facility] Plt 200 150 - 400 K/cumm [facility] MPV 10.1 9.1 - 12.3 fL [facility] RBC 4.14(L) 4.30 - 5.80 M/cumm [facility] MCV 88.9 81.3 - 96.4 fL [facility] MCH 29.2 27.1 - 33.3 pg [facility] MCHC 32.9 32.3 - 35.7 g/dL [facility] RDW CV 12.8 11.1 - 14.9 % [facility] RDW SD 41.5 35.7 - 48.1 fL [facility] NRBC abs 0.00 0.00 - 0.01 K/cumm [facility] Blood 08/21/2024 12:3 5 AM RN GERIATRIC 08/21/2024 12:40 AM RN GERIATRIC Magalis Katharine Wlily MARQUES LAB BLOOD ORDERABLE S Final Result [address] Laboratories [place], [place] [id number] * Erythrocyte sedimentation rate (08/21/2024 12:35 AM RN GERIATRIC) Erythrocyte sedimentation rate 5 1 - 15 mm/hr [facility] Blood 08/21/2024 12:3 5 AM RN GERIATRIC 08/21/2024 12:40 AM RN GERIATRIC Magalis Katharine MARQUES LAB BLOOD ORDERABLE S Final Result Performing Organization Address City/[facility]/ZIP Co de Phone Number [address] [place] [address] * CRP (acute phase) (08/21/2024 12:35 AM RN GERIATRIC) CRP <3.5 <=10.0 mg/L Blood 08/21/2024 12:3 5 AM RN GERIATRIC 08/21/2024 12:40 AM RN GERIATRIC Magalis Rondonzabeth Willy ND LAB BLOOD ORDERABLE S Final Result [address] of Laboratories [place], [place] [id number] * (ABNORMAL) Basic metabolic panel (08/21/2024 12:35 AM RN GERIATRIC) Sodium 140 135 - 145 mmol/L Potassium, pl 4.2 3.3 - 4.9 mmol/L [facility] Chloride 104 97 - 110 mmol/L [facility] CO2 26 22 - 32 mmol/L [facility] Anion gap 10 2 - 15 mmol/L [facility] BUN 34(H) 6 - 25 mg/dL [facility] Creatinine 0.91 0.80 - 1.30 mg/dL [facility] Glucose 96 70 - 199 mg/dL [facility] Comment: Interpretive Data Fasting glucose >/= 126 [...] 2022. Calcium 9.1 8.5 - 10.3 mg/dL [facility] Blood 08/21/2024 12:3 5 AM RN GERIATRIC 08/21/2024 12:40 AM RN GERIATRIC us Magalis MARQUES LAB BLOOD ORDERABLE S Final Result [address] Department [place] [address] * Streptococcus Group A PCR Throat (08/20/2024 9:19 AM RN GERIATRIC) Pathologist [facility] Strep A DNA Not Detected Not Detected Comment: This test is performed using the [employer] Xpert Group A Streptococcal Assay. This is [...] the performing laboratory. Throat 08/20/2024 9:19 AM RN GERIATRIC 08/20/2024 9:22 AM RN GERIATRIC Fei Murray MD LAB MICROBIOLOGY - GENERAL ORDERABLES Final Result [facility] [address] Department [place] [address] * Respiratory pathogen panel Nasopharyngeal (08/20/2024 9:19 AM RN GERIATRIC) Pathologist [facility] Influenza A RNA Not Detected Not Detected Influenza B RNA Not Detected Not Detected [facility] RSV RNA Not Detected Not Detected [facility] COVID-19 RNA Not Detected Not Detected [facility] Coronavirus 229E RNA Not Detected Not Detected [facility] Coronavirus HKU1 RNA Not Detected Not Detected [facility] Coronavirus NL63 RNA Not Detected Not Detected [facility] Coronavirus OC43 RNA Not Detected Not Detected [facility] Adenovirus DNA Not Detected Not Detected [facility] Metapneumovirus RNA Not Detected Not Detected [facility] Rhinovirus/Enterov irus RNA Not Detected Not Detected [facility] Parainfluenza 1 RNA Not Detected Not Detected [facility] Parainfluenza 2 RNA Not Detected Not Detected [facility] Parainfluenza 3 RNA Not Detected Not Detected [facility] Parainfluenza 4 RNA Not Detected Not Detected [facility] B. pertussis DNA Not Detected Not Detected [facility] B. parapertussis DNA Not Detected Not Detected [facility] C. pneumoniae DNA Not Detected Not Detected [facility] M. pneumoniae DNA Not Detected Not Detected [facility] Comment: Interpretive Data The [employer] FilmArray Respiratory Panel (RP2.1) assay is a [...] assay has FDA clearance for testing of LINOLEUM LAYER HELPER swabs. The performance characteristics of this assay have been determined by [facility]. Current interpretive data was last revised on 2021. Nasopharyngeal 08/20/2024 9: 19 AM RN GERIATRIC 08/20/2024 9:22 AM RN GERIATRIC Narrative JADA - 08/20/2024 10:22 AM RN GERIATRIC Is the Patient experiencing symptoms consistent with COVID?->Yes Surveillance testing for transplant patient?->No Fei Murray MD LAB MICROBIOLOGY - GENERAL ORDERABLES Final Result JADA JUSTIN [address] [place] [address] [facility] * (ABNORMAL) D-dimer, quantitative (08/15/2024 1:08 AM RN GERIATRIC) D-Dimer 647(H) <=499 ng/mL FEU Comment: Interpretive [...] revised on 2019. Blood 08/15/2024 1:08 AM RN GERIATRIC 08/15/2024 1:11 AM RN GERIATRIC us Maddison Muhammad NP LAB BLOOD ORDERABLES Final Resul t JADA [facility] [address] [facility]. [place] [address] * eGFR (08/14/2024 9:59 PM RN GERIATRIC) eGFR >90 >=60 mL/min/1. 73 m2 Comment: [...] last reviewed 2021. Blood 08/14/2024 9:59 PM RN GERIATRIC 08/14/2024 10:10 PM RN GERIATRIC us Abigail Richards MD LAB BLOOD ORDERABLES Final Result JADA [facility] [address] [facility]. [place] [address] * Differential, auto (08/14/2024 9:59 PM RN GERIATRIC) Neutrophil abs 3.7 1.5 - 6.5 K/cumm Imm gran abs 0.0 0.0 - 0.1 K/cumm [facility] Lymphocyte abs 2.0 0.8 - 3.3 K/cumm [facility] Monocyte abs 0.5 0.2 - 0.8 K/cumm [facility] Eosinophil abs 0.2 0.0 - 0.5 K/cumm [facility] Basophil abs 0.1 0.0 - 0.1 K/cumm [facility] Neutrophil pct 57.5 % [facility] Comment: Interpretive Data Percent cell count reference ranges are not reported, since discordance with absolute values may lead to misinterpretation of CBC data. Current Interpretive Data was last revised on 2017. Imm gran pct 0.2 % [facility] Comment: Interpretive Data Percent cell count reference ranges are not reported, since discordance with absolute values may lead to misinterpretation of CBC data. Current Interpretive Data was last revised on 2017. Lymphocyte pct 30.2 % [facility] Comment: Interpretive Data Percent cell count reference ranges are not reported, since discordance with absolute values may lead to misinterpretation of CBC data. Current Interpretive Data was last revised on 2017. Monocyte pct 7.6 % [facility] Comment: Interpretive Data Percent cell count reference [...] revised on 2017. Blood 08/14/2024 9:59 PM RN GERIATRIC 08/14/2024 10:10 PM RN GERIATRIC us Abigail Richards MD LAB BLOOD ORDERABLES Final Result [facility] [address] [facility]. Department of [employer] [place] [address] * Pro B-type natriuretic peptide (08/14/2024 9:59 PM RN GERIATRIC) NT-proBNP 75 <=300 pg/mL Comment: Interpretive Comments: [...] Revised Date: 2018. Blood 08/14/2024 9:59 PM RN GERIATRIC 08/14/2024 10:10 PM RN GERIATRIC Abigail Richards MD LAB BLOOD ORDERABLES Final Result [facility] [address] [facility]. [place] [address] * CBC with auto differential (08/14/2024 9:59 PM RN GERIATRIC) Pathologist [facility] WBC 6.5 3.8 - 9.9 K/cumm Hgb 13.3 13.0 - 17.5 g/dL [facility] Hct 39.8 38.9 - 50.3 % [facility] Plt 218 150 - 400 K/cumm [facility] MPV 10.0 9.1 - 12.3 fL [facility] RBC 4.49 4.30 - 5.80 M/cumm [facility] MCV 88.6 81.3 - 96.4 fL [facility] MCH 29.6 27.1 - 33.3 pg [facility] MCHC 33.4 32.3 - 35.7 g/dL [facility] RDW CV 12.7 11.1 - 14.9 % [facility] RDW SD 41.1 35.7 - 48.1 fL [facility] NRBC abs 0.00 0.00 - 0.01 K/cumm [facility] Blood (Blood, Venous) 08/14/2024 9:59 PM RN GERIATRIC 08/14/2024 10:10 PM RN GERIATRIC Abigail Richards MD LAB BLOOD ORDERABLES Final Result [facility] [address] [address] [facility] [employer] [place] [address] * Lipase (08/14/2024 9:59 PM RN GERIATRIC) Pathologist [facility] Lipase 50 10 - 99 Units/L Blood (Blood, Venous) 08/14/2024 9:59 PM RN GERIATRIC 08/14/2024 10:10 PM RN GERIATRIC Abigail Richards MD LAB BLOOD ORDERABLES Final Result Performing Organization Address [facility] Co de Phone Number [facility] [address] [address] Department of [employer] [place] [address] * (ABNORMAL) Comprehensive metabolic panel (08/14/2024 9:59 PM RN GERIATRIC) Pathologist [facility] Sodium 139 135 - 145 mmol/L Potassium, pl 3.9 3.3 - 4.9 mmol/L [facility] Chloride 101 97 - 110 mmol/L [facility] CO2 27 22 - 32 mmol/L [facility] Anion gap 11 2 - 15 mmol/L [facility] BUN 25 6 - 25 mg/dL [facility] Creatinine 0.90 0.80 - 1.30 mg/dL [facility] Glucose 92 70 - 199 mg/dL [facility] Comment: Interpretive Data Fasting glucose [...] Bilirubin, total 0.5 0.1 - 1.2 mg/dL [facility] Protein, pl 6.6 6.5 - 8.5 g/dL [facility] Albumin 4.0 3.5 - 5.0 g/dL [facility] Alk phos 91 40 - 130 Units/L [facility] ALT 168(H) 7 - 55 Units/L [facility] AST 66(H) 10 - 50 Units/L [facility] Blood 08/14/2024 9:59 PM RN GERIATRIC 08/14/2024 10:10 PM RN GERIATRIC us Abigail Richards MD LAB BLOOD ORDERABLES Final Result [facility]ADA AGRAWAL [address] [facility] Department of [employer] [place], [place] [id number] * TRANSTHORACIC ECHO (TTE) COMPLETE W DOPPLER/CF WO CONTRAST (08/14/2024 11:39 AM RN GERIATRIC) LV EF 55-60 % CONS SCIMAGE Anatomical Region Laterality Modality Ultrasound 08/14/2024 10:0 7 AM RN GERIATRIC Narrative 08/14/2024 11:49 AM RN GERIATRIC [place] [id number] [place] [address] ECHOCARDIOGRAM Patient Name: LISA AZAR : 1980 (43y 11m) Gender: M Study Date: 08/14/2024 10:07:30 AM Ht(Inch): 68 Wt(Lb): 173.06 BSA: 1.94 Clarity Developer: NINFA Location: [id number] Order Provider: PHOEBE ADKINS BMI: 26.31 BP: [...] Jerel Ramirez MD PhD 08/14/2024 11:48:00 AM RN GERIATRIC Procedure Note Jerel Ramirez MD PhD - 08/14/2024 [place] [id number] [place] [address] ECHOCARDIOGRAM Patient Name: LISA AZAR : 1980 (43y 11m) Gender: M Study Date: 08/14/2024 10:07:30 AM Ht(Inch): 68 Wt(Lb): 173.06 BSA: 1.94 Clarity Developer: NINFA Location: [address] Order Provider: PHOEBE ADKINS BMI: 26.31 [...] Jerel Ramirez MD PhD 08/14/2024 11:48:00 AM RN GERIATRIC us Phoebe Adkins MD CV ECHO PROCEDURES Final Result * eGFR (08/13/2024 5:30 AM RN GERIATRIC) eGFR >90 >=60 mL/min/1. 73 m2 Comment: [...] last reviewed 2021. Blood 08/13/2024 5:30 AM RN GERIATRIC 08/13/2024 6:25 AM RN GERIATRIC us Phoebe Adkins MD LAB BLOOD ORDERABLES Final Resul t [facility] [address] Department of [employer] [place] [address] * (ABNORMAL) CBC without differential (08/13/2024 5:30 AM RN GERIATRIC) [facility] WBC 5.7 3.8 - 9.9 K/cumm Hgb 11.9(L) 13.0 - 17.5 g/dL [facility] Hct 36.4(L) 38.9 - 50.3 % [facility] Plt 186 150 - 400 K/cumm [facility] MPV 10.6 9.1 - 12.3 fL [facility] RBC 4.01(L) 4.30 - 5.80 M/cumm [facility] MCV 90.8 81.3 - 96.4 fL [facility] MCH 29.7 27.1 - 33.3 pg [facility] MCHC 32.7 32.3 - 35.7 g/dL [facility] RDW CV 13.0 11.1 - 14.9 % [facility] RDW SD 43.0 35.7 - 48.1 fL [facility] NRBC abs 0.00 0.00 - 0.01 K/cumm [facility] Blood 08/13/2024 5:30 AM RN GERIATRIC 08/13/2024 6:25 AM RN GERIATRIC Phoebe Adkins MD LAB BLOOD ORDERABLES Final Resul t Performing Organization Address City/[facility] de Phone Number [facility] [address] [facility] [employer] [place] [address] * Phosphorus (08/13/2024 5:30 AM RN GERIATRIC) [facility] Phosphorus, pl 2.9 2.3 - 4.5 mg/dL Blood 08/13/2024 5:30 AM RN GERIATRIC 08/13/2024 6:25 AM RN GERIATRIC Phoebe Adkins MD LAB BLOOD ORDERABLES Final Resul t Performing Organization Address [facility] Co de Phone Number [facility] [address] Department of [employer] [place] [address] * Magnesium (08/13/2024 5:30 AM RN GERIATRIC) Magnesium 1.9 1.4 - 2.5 mg/dL Blood 08/13/2024 5:30 AM RN GERIATRIC 08/13/2024 6:25 AM RN GERIATRIC us Phoebe Adkins MD LAB BLOOD ORDERABLES Final Resul t Performing Organization Address [facility] Co de Phone Number [facility] [address] [facility] [employer] [place] [address] * Ferritin (08/13/2024 5:30 AM RN GERIATRIC) Ferritin 39 30 - 400 ng/mL Blood 08/13/2024 5:30 AM RN GERIATRIC 08/13/2024 6:24 AM RN GERIATRIC us Phoebe Adkins MD LAB BLOOD ORDERABLES Final Resul t Performing Organization Address [facility] de Phone Number [facility] [address] Department [employer] [place] [address] * (ABNORMAL) Hepatic function panel (08/13/2024 5:30 AM RN GERIATRIC) Bilirubin, total 0.4 0.1 - 1.2 mg/dL Bilirubin, direct <0.2 0.1 - 0.3 mg/dL [facility] Protein, pl 5.9(L) 6.5 - 8.5 g/dL [facility] Albumin 3.5 3.5 - 5.0 g/dL [facility] Alk phos 71 40 - 130 Units/L [facility] ALT 200(H) 7 - 55 Units/L [facility] AST 101(H) 10 - 50 Units/L [facility] Blood 08/13/2024 5:30 AM RN GERIATRIC 08/13/2024 6:25 AM RN GERIATRIC Result Celia Adkins MD LAB BLOOD ORDERABLES Final Resul t Performing Organization Address [facility] Co de Phone Number [facility] [address] Department [place] [address] * (ABNORMAL) Basic metabolic panel (08/13/2024 5:30 AM RN GERIATRIC) Pathologist [facility] Sodium 140 135 - 145 mmol/L Potassium, pl 4.1 3.3 - 4.9 mmol/L [facility] Chloride 106 97 - 110 mmol/L [facility] CO2 24 22 - 32 mmol/L [facility] Anion gap 10 2 - 15 mmol/L [facility] BUN 23 6 - 25 mg/dL [facility] Creatinine 0.82 0.80 - 1.30 mg/dL [facility] Glucose 87 70 - 199 mg/dL [facility] Comment: Interpretive Data Fasting glucose [...] 2022. Calcium 8.1(L) 8.5 - 10.3 mg/dL [facility] Blood 08/13/2024 5:30 AM RN GERIATRIC 08/13/2024 6:25 AM RN GERIATRIC Phoebe Adkins MD LAB BLOOD ORDERABLES Final Resul t [facility] [address] Department [place] [address] * Drugs of Abuse Screen, Urine with Reflex Confirmation (08/13/2024 12:15 AM RN GERIATRIC) Pathologist [facility] Amphetamine, ur [...] 2023. Barbiturates, ur Not Detected CutOff 200ng/mL [facility] Comment: Interpretive Data - Barbiturates: Samples containing greater than 200 ng/mL secobarbital or other cross-reacting barbiturate compounds are reported as positive. False positive and false negative results are possible. Confirmatory testing required for definitive results. Current Interpretive Data was last reviewed 2023. Benzodiazepines, ur Not Detected CutOff 100ng/mL [facility] Comment: Interpretive Data - Benzodiazepines: Samples containing greater than 100 ng/mL nordiazepam or other cross-reacting compounds are reported as positive. False positive and false negative results are possible. Confirmatory testing required for definitive results. Current Interpretive Data was last reviewed 2023. Cannabinoids, ur Not Detected CutOff 50 ng/mL [facility] Comment: Interpretive Data - Cannabinoids: Samples containing greater than 50 ng/mL delta-9 THC -COOH or other cross- reacting compounds are reported as positive. False positive and false negative results are possible. Confirmatory testing required for definitive results. Current Interpretive Data was last reviewed 2023. Cocaine, ur Not Detected CutOff 150ng/mL [facility] Comment: Interpretive Data - Cocaine: Samples containing greater than 150 ng/mL benzoylecgonine or other cross- reacting compounds are reported as positive. False positive and false negative results are possible. Confirmatory testing required for definitive results. Current Interpretive Data was last reviewed 2023. Fentanyl, Ur Not Detected CutOff 5 ng/mL [facility] Comment: Interpretive Data - Fentanyl: Samples containing greater than 5 ng/mL norfentanyl, fentanyl, or other cross-reacting fentanyl compounds are reported as positive. False positive and false negative results are possible. Confirmatory testing required for definitive results. Current Interpretive Data was last reviewed 2023. Methadone, ur Not Detected CutOff 300ng/mL [facility] Comment: Interpretive Data - Methadone: Samples containing greater than 300 ng/mL d,l-methadone or other cross-reacting compounds are reported as positive. False positive and false negative results are possible. Confirmatory testing required for definitive results. Current Interpretive Data was last reviewed 2023. Opiates, ur Not Detected CutOff 300ng/mL [facility] Comment: Interpretive Data - Opiates: Samples containing greater than 300 ng/mL morphine or other cross-reacting compounds are reported as positive. False positive and false negative results are possible. Confirmatory testing required for definitive results. Current Interpretive Data was last reviewed 2023. Oxycodone, ur Not Detected CutOff 100ng/mL [facility] Comment: Interpretive Data - Oxycodone: Samples containing greater than 100 ng/mL oxycodone or other cross-reacting compounds are reported as positive. False positive and false negative results are possible. Confirmatory testing required for definitive results. Current Interpretive Data was last reviewed 2023. Phencyclidine, ur Not Detected CutOff 25 ng/mL [facility] Comment: Interpretive Data - Phencyclidine: Samples containing greater than 25 ng/mL phencyclidine or other cross-reacting compounds are reported as positive. False positive and false negative results are possible. Confirmatory testing required for definitive results. Current Interpretive Data was last reviewed 2023. Urine Creatinine 90 mg/dL [facility] Comment: Interpretive Data Urine Creatinine: < 10 mg/dL is extremely dilute = or > 10 but < 20 mg/dL is dilute = or > 20 mg/dL is normal Current Interpretive Data was last revised on 2017. Urine 08/13/2024 12:1 5 AM RN GERIATRIC 08/13/2024 12:26 AM RN GERIATRIC Narrative [facility] - 08/13/2024 12:54 AM RN GERIATRIC Drug of Abuse screening is performed by immunoassay for medical purposes only. This is not to be used for Pain Management purposes. If Detected, confirmation testing will be performed for Amphetamines, Cocaine, Fentanyl, Methadone, Opiates, Oxycodone or Phencyclidine. us Batsheva Portillo MD LAB URINE ORDERABLES Final Result [facility] [address] Department [place] [address] * (ABNORMAL) Urinalysis reflex to microscopic and culture Urine (08/13/2024 12:15 AM RN GERIATRIC) Color, ur Yellow Yellow Clarity, ur Clear Clear [facility] Specific gravity, ur >1.050(H) 1.003 - 1.030 [facility] pH, urine 6.5 [facility] Comment: Interpretive Data U rine pH is affected by diet, medications, systemic acid-base disturbances, and renal tubular function. pH may affect urinary stone formation. For example, urine pH below 6.0 may help reduce the tendency for calcium phosphate stones and pH greater than 6.0 may reduce the tendency for uric acid stone formation. Source: [facility] Current Interpretive Data was last revised on 2017 Protein, ur ql Negative Negative [facility] Glucose, ur ql Negative Negative [facility] Ketones, ur Negative Negative [facility] Bilirubin, ur Negative Negative [facility] Blood, ur Negative Negative [facility] Urobilinogen, ur <2.0 <2.0 mg/dL [facility] Nitrite, ur Negative Negative [facility] Leukocyte esterase, ur Negative Negative [facility] UA reflex comment Reflex conditions for microscopic UA and culture not met. [facility] Urine 08/13/2024 12:1 5 AM RN GERIATRIC 08/13/2024 12:15 AM RN GERIATRIC us Batsheva Portillo MD LAB MICROBIOLOGY - GENERAL ORDERABLES Final Result [facility] [address] Department [place] [address] * CT Chest PE (CTA) W Contrast (08/12/2024 11:48 PM RN GERIATRIC) Anatomical Region Laterality Modality Body N/A Computed Tomogra phy 08/12/2024 11:4 3 PM RN GERIATRIC Impressions 08/13/2024 9:24 AM RN GERIATRIC No pulmonary embolism. Electronically signed by: Tari Gavin M.D. Narrative 08/13/2024 9:24 AM RN GERIATRIC EXAMINATION: CT CHEST PE (CTA) W CONTRAST [...] Lower Extremity Bilateral Complete (08/12/2024 11:46 PM RN GERIATRIC) Anatomical Region Laterality Modality Vascular Bilateral Ultrasound 08/13/2024 12:0 9 PM RN GERIATRIC Impressions 08/13/2024 12:09 PM RN GERIATRIC 1. No evidence of DVT in the lower extremities bilaterally. 2. Pulsatile venous flow bilaterally. This may suggest increased intravascular volume or right-sided valvular heart disease. Clinical correlation suggested. 3. Prominent lymph nodes in both groins. Electronically signed by: Lv Smart M.D. Narrative 08/13/2024 12:09 PM RN GERIATRIC Lower Extremity Vein Duplex Bilateral DATE: 08/12/2024 [...] ult * US RUQ (08/12/2024 11:38 PM RN GERIATRIC) Anatomical Region Laterality Modality Abdomen N/A Ultrasound 08/12/2024 10:4 5 PM RN GERIATRIC Impressions 08/13/2024 11:42 AM RN GERIATRIC 1. Trace perihepatic ascites. 2. Pulsatile portal venous flow and dilated inferior vena cava, which may represent elevated right heart pressures and/or tricuspid regurgitation. For the purposes of research quality assurance specialist, this study was initially interpreted by teleradiology. There is no significant discrepancy. Electronically signed by: Saeid Baker MD, PHD Narrative 08/13/2024 11:42 AM RN GERIATRIC EXAMINATION: LIMITED ABDOMINAL SONOGRAM HISTORY: Elevated liver [...] and/or tricuspid regurgitation. For the purposes of research quality assurance specialist, this study was initially interpreted by teleradiology. There is no significant discrepancy. Electronically signed by: Saeid Baker MD, PHD us Batsheva Portillo MD IMG US PROCEDURES Final Res ult * D-Dimer - Add on lab test (08/12/2024 10:29 PM RN GERIATRIC) Acceptable Yes Blood 08/12/2024 10:2 9 PM RN GERIATRIC 08/12/2024 10:29 PM RN GERIATRIC [facility]ative [facility] - 08/12/2024 10:29 PM RN GERIATRIC Name of Test->D-Dimer us Batsheva Portillo MD LAB BLOOD ORDERABLES Final Result [facility] [address] Department [place] [address] * CT Head and Cervical Spine WO Contrast (08/12/2024 10:20 PM RN GERIATRIC) Anatomical Region Laterality Modality Head and Neck N/A Computed Tomogra phy 08/12/2024 10:1 3 PM RN GERIATRIC Impressions 08/13/2024 7:[address] HEAD: No acute intracranial abnormality or calvarial fracture. CT CERVICAL SPINE: 1. No acute osseous abnormality. 2. Multilevel cervical spondylosis; most pronounced at C5-C6 and C6-C7. For the purposes of research quality assurance specialist, this study was initially interpreted by teleradiology. There is no significant discrepancy. Electronically signed by: Zaheer Navas M.D. Narrative 08/13/2024 7:02 AM RN GERIATRIC EXAMINATION: 1. CT head without contrast 2. [...] C5-C6 and C6-C7. For the purposes of research quality assurance specialist, this study was initially interpreted by teleradiology. There is no significant discrepancy. Electronically signed by: Zaheer Navas M.D. us Batsheva Portillo MD IMG CT PROCEDURES Final Res ult * Protime-INR (08/12/2024 10:05 PM RN GERIATRIC) PT 12.8 9.7 - 13.0 sec INR 1.18 0.90 - 1.20 [facility] Comment: Interpretive data Oral anticoagulant therapeutic ranges: Venous thromboembolism prophylaxis or treatment: 2.0-3.0 CARDIOLOGY Standard range: 2.0-3.0 High-intensity range: 2.5-3.5 Refer to indication-specific guidelines for appropriate target ranges for prosthetic heart valve replacement. Current interpretive data was last revised on 2019. Blood 08/12/2024 10:0 5 PM RN GERIATRIC 08/12/2024 10:29 PM RN GERIATRIC us Batsheva Portillo MD LAB BLOOD ORDERABLES Final Result Performing Organization Address City/[facility] Co de Phone Number [facility] [address] [place] [address] * (ABNORMAL) D-dimer, quantitative (08/12/2024 10:05 PM RN GERIATRIC) D-Dimer 1,783(H) <=499 ng/mL FEU Comment: Interpretive [...] on 2019. Blood 08/12/2024 10:0 5 PM RN GERIATRIC 08/12/2024 10:05 PM RN GERIATRIC us Batsheva Portillo MD LAB BLOOD ORDERABLES Final Result Performing Organization Address [facility] Co de Phone Number [facility] [address] [facility] [employer] [place] [address] * Folate - Add on lab test (08/12/2024 9:53 PM RN GERIATRIC) Acceptable Yes Blood 08/12/2024 9:53 PM RN GERIATRIC 08/12/2024 9:53 PM RN GERIATRIC Narrative [facility] - 08/12/2024 9:54 PM RN GERIATRIC Name of Test->Folate us Batsheva Portillo MD LAB BLOOD ORDERABLES Final Result Performing Organization Address [facility] Co de Phone Number [facility] [address] [facility] [employer] [place] [address] * Vitamin B12 - Add on lab test (08/12/2024 9:53 PM RN GERIATRIC) Acceptable Yes Blood 08/12/2024 9:53 PM RN GERIATRIC 08/12/2024 9:54 PM RN GERIATRIC Narrative [facility] - 08/12/2024 9:54 PM RN GERIATRIC Name of Test->Vitamin B12 us Batsheva Portillo MD LAB BLOOD ORDERABLES Final Result [facility] [address] [facility] [employer] [place] [address] * Iron profile - Add on lab test (08/12/2024 9:53 PM RN GERIATRIC) Acceptable Yes Blood 08/12/2024 9:53 PM RN GERIATRIC 08/12/2024 9:54 PM RN GERIATRIC Narrative [facility] - 08/12/2024 9:54 PM RN GERIATRIC Name of Test->Iron profile us Batsheva Portillo MD LAB BLOOD ORDERABLES Final Result Performing Organization Address [facility]/ZIP Co de Phone Number [facility] [address] [employer] [place] [address] * NT-Pro BNP - Add on lab test (08/12/2024 9:53 PM RN GERIATRIC) Acceptable Yes Blood 08/12/2024 9:53 PM RN GERIATRIC 08/12/2024 9:53 PM RN GERIATRIC Narrative [facility] - 08/12/2024 9:54 PM RN GERIATRIC Name of Test->NT-Pro BNP us Batsheva Portillo MD LAB BLOOD ORDERABLES Final Result Performing Organization Address City/[facility]/ZIP Co de Phone Number [facility] [address] [facility] [employer] [place] [address] * TSH reflex Free T4 - Add on lab test (08/12/2024 9:53 PM RN GERIATRIC) Acceptable Yes Blood 08/12/2024 9:53 PM RN GERIATRIC 08/12/2024 9:53 PM RN GERIATRIC Narrative [facility] 08/12/2024 9:54 PM RN GERIATRIC Name of Test->TSH reflex Free T4 us Batsheva Portillo MD LAB BLOOD ORDERABLES Final Result Performing Organization Address [facility] Co de Phone Number [facility] [address] [facility] [employer] [place], [place] [id number] * Phosphorus - Add on lab test (08/12/2024 9:53 PM RN GERIATRIC) Acceptable Yes Blood 08/12/2024 9:53 PM RN GERIATRIC 08/12/2024 9:53 PM RN GERIATRIC Narrative [facility] 08/12/2024 9:55 PM RN GERIATRIC Name of Test->Phosphorus us Batsheva Portillo MD LAB BLOOD ORDERABLES Final Result Performing Organization Address [facility] Co de Phone Number [facility] [address] [facility] [employer] [place], [place] [id number] * Magnesium - Add on lab test (08/12/2024 9:53 PM RN GERIATRIC) Acceptable Yes Blood 08/12/2024 9:53 PM RN GERIATRIC 08/12/2024 9:53 PM RN GERIATRIC Narrative [facility] 08/12/2024 9:55 PM RN GERIATRIC Name of Test->Magnesium us Batsheva Portillo MD LAB BLOOD ORDERABLES Final Result Performing Organization Address [facility] Co de Phone Number [facility] [address] [facility] [employer] [place], [place] [id number] * Troponin T high-sensitivity 2-hour (08/12/2024 9:52 PM RN GERIATRIC) Trop T hs 6 <=22 ng/L Comment: Interpretive Data For further hscTnT resources including the diagnostic algorithm and an aid in interpretation, copy and paste this link: https://nrl.testcatalog.org/show/hsTrop Current Interpretive Data last revised 2020. Trop T hs delta -1 ng/L [facility] Trop T hs interp Insignificant [facility] Blood 08/12/2024 9:52 PM RN GERIATRIC 08/12/2024 10:30 PM RN GERIATRIC us Ace Gonzales MD LAB BLOOD ORDERABLES F inal Result Performing Organization Address City/[facility]/ZIP Co de Phone Number [facility] [address] Department [employer] [place] [address] * Ethanol (08/12/2024 9:52 PM RN GERIATRIC) Ethanol <10 <=10 mg/dL Comment: Interpretive Data Legal limit of intoxication > or = 80 mg/dL Levels > or = 400 mg/dL are potentially TOXIC. Current interpretive data was last revised on 2018. Blood 08/12/2024 9:52 PM RN GERIATRIC 08/12/2024 10:29 PM RN GERIATRIC us Batsheva Portillo MD LAB BLOOD ORDERABLES Final Result Performing Organization Address [facility] Co de Phone Number [facility] [address] Department of [employer] [place] [address] * Hepatitis panel, acute Blood (08/12/2024 9:13 PM RN GERIATRIC) Hep A IgM Nonreactive Nonreactive Comment: Interpretive Data: If Hep A IgM Ab is reported as Equivocal, a new sample should be drawn in two weeks for testing. Current interpretive data was last revised on 19. Hep B core IgM Nonreactive Nonreactive [facility] Comment: Interpretive Data If HepB Core IgM Ab is reported as Equivocal, a new sample should be drawn in two weeks for testing. Current interpretive data was last revised on 19. Hep C Ab Nonreactive Nonreactive [facility] Comment: Interpretive Data Nonreactive: Antibodies [...] last revised on 2019. HepBsAg Nonreactive Nonreactive [facility] Blood 08/12/2024 9:13 PM RN GERIATRIC 08/12/2024 9:17 PM RN GERIATRIC Batsheva Portillo MD LAB MICROBIOLOGY - GENERAL ORDERABLES Final Result Performing Organization Address [facility] Co de Phone Number [facility] [address] [place] [place] [address] * Acetaminophen level (08/12/2024 9:13 PM RN GERIATRIC) Acetaminophen <5 <=5 mcg/mL Comment: Interpretive Data Significant hepatic injury may occur and treatment with n-acetyl cysteine is generally recommended if the acetaminophen level exceeds: 150 mcg/mL at 4 hours after ingestion 75 mcg/mL at 8 hours after ingestion 38 mcg/mL at 12 hours after ingestion 19 mcg/mL at 16 hours after ingestion Consult toxicology or poison control ([phone]) for unknown ingestion time. Current interpretive data was last revised 2023. Blood 08/12/2024 9:13 PM RN GERIATRIC 08/12/2024 9:17 PM RN GERIATRIC us Batsheva Portillo MD LAB BLOOD ORDERABLES Final Result Performing Organization Address [facility] Co de Phone Number [facility] [address] [facility] [email or web address] [place], [place] [id number] * Troponin T high-sensitivity series (baseline, 2hr, 4hr, 6hr) (08/12/2024 8:08 PM RN GERIATRIC) Trop T hs 7 <=22 ng/L Comment: Interpretive Data For further hscTnT resources including the diagnostic algorithm and an aid in interpretation, copy and paste this link: https://nrl.testcatalog.org/show/hsTrop Current Interpretive Data last revised 2020. Blood 08/12/2024 8:08 PM RN GERIATRIC 08/12/2024 8:23 PM RN GERIATRIC us Batsheva Portillo MD LAB BLOOD ORDERABLES Final Result Performing Organization Address [facility] Co de Phone Number [facility] [address] Department [email or web address] [place], [place] [id number] * eGFR (08/12/2024 8:08 PM RN GERIATRIC) eGFR >90 >=60 mL/min/1. 73 m2 Comment: [...] last reviewed 2021. Blood 08/12/2024 8:08 PM RN GERIATRIC 08/12/2024 8:23 PM RN GERIATRIC us Batsheva Portillo MD LAB BLOOD ORDERABLES Final Result Performing Organization Address [facility] Co de Phone Number [facility] [address] Department [email or web address] [address] * Differential, auto (08/12/2024 8:08 PM RN GERIATRIC) Neutrophil abs 3.5 1.5 - 6.5 K/cumm Imm gran abs 0.0 0.0 - 0.1 K/cumm [facility] Lymphocyte abs 2.2 0.8 - 3.3 K/cumm [facility] Monocyte abs 0.5 0.2 - 0.8 K/cumm [facility] Eosinophil abs 0.3 0.0 - 0.5 K/cumm [facility] Basophil abs 0.1 0.0 - 0.1 K/cumm [facility] Neutrophil pct 54.5 % [facility] Comment: Interpretive Data Percent cell count reference ranges are not reported, since discordance with absolute values may lead to misinterpretation of CBC data. Current Interpretive Data was last revised on 2017. Imm gran pct 0.3 % [facility] Comment: Interpretive Data Percent cell count reference ranges are not reported, since discordance with absolute values may lead to misinterpretation of CBC data. Current Interpretive Data was last revised on 2017. Lymphocyte pct 33.3 % [facility] Comment: Interpretive Data Percent cell count reference ranges are not reported, since discordance with absolute values may lead to misinterpretation of CBC data. Current Interpretive Data was last revised on 2017. Monocyte pct 6.9 % [facility] Comment: Interpretive Data Percent cell count reference ranges are not reported, since discordance with absolute values may lead to misinterpretation of CBC data. Current Interpretive Data was last revised on 2017. Eosinophil pct 4.1 % [facility] Comment: Interpretive Data Percent cell count reference ranges are not reported, since discordance with absolute values may lead to misinterpretation of CBC data. Current Interpretive Data was last revised on 2017. Basophil pct 0.9 % [facility] Comment: Interpretive Data Percent cell count reference ranges are not reported, since discordance with absolute values may lead to misinterpretation of CBC data. Current Interpretive Data was last revised on 2017. Blood 08/12/2024 8:08 PM RN GERIATRIC 08/12/2024 8:23 PM RN GERIATRIC us Batsheva Portillo MD LAB BLOOD ORDERABLES Final Result Performing Organization Address [facility] Co de Phone Number [facility] [address] Department [email or web address] [address] * Pro B-type natriuretic peptide (08/12/2024 8:08 PM RN GERIATRIC) NT-proBNP 60 <=300 pg/mL Comment: Interpretive Comments: [...] Revised Date: 2018. Blood 08/12/2024 8:08 PM RN GERIATRIC 08/12/2024 8:23 PM RN GERIATRIC us Batsheva Portillo MD LAB BLOOD ORDERABLES Final Result Performing Organization Address [facility] Co de Phone Number [facility] [address] [place] [address] * Thyroid Function [place] (08/12/2024 8:08 PM RN GERIATRIC) [facility] TSH 1.43 0.30 - 4.20 mcIUnit/mL Blood 08/12/2024 8:08 PM RN GERIATRIC 08/12/2024 8:23 PM RN GERIATRIC us Batsheva Portillo MD LAB BLOOD ORDERABLES Final Result Performing Organization Address City/[facility]/ZIP Co de Phone Number [facility] [address] [facility] [employer] [place] [address] * (ABNORMAL) Iron profile w/ IBC (08/12/2024 8:08 PM RN GERIATRIC) [facility] Iron 46(L) 50 - 150 mcg/dL TIBC 296 250 - 400 mcg/dL [facility] Transferrin saturation 16(L) 20 - 50 % [facility] Blood 08/12/2024 8:08 PM RN GERIATRIC 08/12/2024 8:23 PM RN GERIATRIC us Batsheva Portillo MD LAB BLOOD ORDERABLES Final Result Performing Organization Address [facility] Co de Phone Number [facility] [address] [facility] [employer] [place] [address] * (ABNORMAL) CBC with auto differential (08/12/2024 8:08 PM RN GERIATRIC) [facility] WBC 6.5 3.8 - 9.9 K/cumm Hgb 12.5(L) 13.0 - 17.5 g/dL [facility] Hct 38.3(L) 38.9 - 50.3 % [facility] Plt 207 150 - 400 K/cumm [facility] MPV 10.1 9.1 - 12.3 fL [facility] RBC 4.22(L) 4.30 - 5.80 M/cumm [facility] MCV 90.8 81.3 - 96.4 fL [facility] MCH 29.6 27.1 - 33.3 pg [facility] MCHC 32.6 32.3 - 35.7 g/dL [facility] RDW CV 13.0 11.1 - 14.9 % [facility] RDW SD 43.2 35.7 - 48.1 fL [facility] NRBC abs 0.00 0.00 - 0.01 K/cumm [facility] Blood (Blood, Venous) 08/12/2024 8:08 PM RN GERIATRIC 08/12/2024 8:23 PM RN GERIATRIC us Batsheva Portillo MD LAB BLOOD ORDERABLES Final Result Performing Organization Address City/[facility]/ZIP Co de Phone Number [place] [id number] [facility] [employer] [place] [address] * Phosphorus (08/12/2024 8:08 PM RN GERIATRIC) Phosphorus, pl 3.1 2.3 - 4.5 mg/dL Blood 08/12/2024 8:08 PM RN GERIATRIC 08/12/2024 8:23 PM RN GERIATRIC us Batsheva Portillo MD LAB BLOOD ORDERABLES Final Result Performing Organization Address [facility] Co de Phone Number [facility] [address] Department of [employer] [place] [address] * Magnesium (08/12/2024 8:08 PM RN GERIATRIC) Magnesium 2.0 1.4 - 2.5 mg/dL Blood 08/12/2024 8:08 PM RN GERIATRIC 08/12/2024 8:23 PM RN GERIATRIC us Batsheva Portillo MD LAB BLOOD ORDERABLES Final Result Performing Organization Address City/[facility]/ZIP Co de Phone Number [facility] [address] [place] [address] * Folate (08/12/2024 8:08 PM RN GERIATRIC) Folic acid 7.6 >=5.0 ng/mL Blood 08/12/2024 8:08 PM RN GERIATRIC 08/12/2024 8:23 PM RN GERIATRIC Batsheva Portillo MD LAB BLOOD ORDERABLES Final Result Performing Organization Address [facility] Co de Phone Number [facility] [address] [facility] [employer] [place] [address] * Vitamin B12 (08/12/2024 8:08 PM RN GERIATRIC) [facility] Vitamin B12 860 230 - 1,250 pg/mL Blood 08/12/2024 8:08 PM RN GERIATRIC 08/12/2024 8:23 PM RN GERIATRIC Batsheva Portillo MD LAB BLOOD ORDERABLES Final Result Performing Organization Address [facility] de Phone Number [facility] [address] Department [employer] [place] [address] * (ABNORMAL) Comprehensive metabolic panel (08/12/2024 8:08 PM RN GERIATRIC) [facility] Sodium 142 135 - 145 mmol/L Potassium, pl 4.4 3.3 - 4.9 mmol/L [facility] Chloride 106 97 - 110 mmol/L [facility] CO2 27 22 - 32 mmol/L [facility] Anion gap 9 2 - 15 mmol/L [facility] BUN 29(H) 6 - 25 mg/dL [facility] Creatinine 1.02 0.80 - 1.30 mg/dL [facility] Glucose 104 70 - 199 mg/dL [facility] Comment: Interpretive Data Fasting glucose [...] 2022. Calcium 8.6 8.5 - 10.3 mg/dL [facility] Bilirubin, total 0.3 0.1 - 1.2 mg/dL [facility] Protein, pl 6.1(L) 6.5 - 8.5 g/dL [facility] Albumin 3.7 3.5 - 5.0 g/dL [facility] Alk phos 83 40 - 130 Units/L [facility] ALT 230(H) 7 - 55 Units/L [facility] AST 158(H) 10 - 50 Units/L [facility] Blood 08/12/2024 8:08 PM RN GERIATRIC 08/12/2024 8:23 PM RN GERIATRIC us Batsheva Portillo MD LAB BLOOD ORDERABLES Final Result [facility] [address] [place] [address] * XR Chest PA Lateral 2 Views (08/12/2024 7:27 PM RN GERIATRIC) Anatomical Region Laterality Modality Body, Chest N/A Computed Radiogr aphy 08/13/2024 7:44 AM RN GERIATRIC Impressions 08/13/2024 7:44 AM RN GERIATRIC There is subtle airspace opacity in the right lung base which may represent pneumonia in the appropriate clinical setting. Alternatively, this may represent atelectasis. No pleural effusion. No pneumothorax. Heart size is normal. Electronically signed by: Tari Gavin M.D. Narrative 08/13/2024 7:44 AM RN GERIATRIC EXAMINATION: XR CHEST PA LATERAL 2 VIEWS [...] * ECG 12 lead (08/12/2024 6:48 PM RN GERIATRIC) 08/12/2024 6:48 PM RN GERIATRIC Narrative [facility] - 08/13/2024 1:41 PM RN GERIATRIC Vent Rate: 63 bpm RR Interval: 938 msec NV Interval: 165 msec QRS Duration: 96 msec QT Interval: 378 msec QTC Interval: 386 msec P-R-T Elizabeth: 74 - 81 - 50 degrees IMPRESSION: SINUS RHYTHM POSSIBLE LEFT ATRIAL ENLARGEMENT [-0.1mV P WAVE IN V1/V2] BORDERLINE ECG Electronically Signed By: Jerel Ramirez MD PhD us Batsheva Portillo MD ECG ORDERABLES Final Resul t [facility] * XR Chest Pa Lateral 2 Views (08/11/2024 2:02 AM RN GERIATRIC) Anatomical Region Laterality Modality Body, Chest N/A Computed Radiogr aphy 08/11/2024 3:00 AM RN GERIATRIC Impressions 08/11/2024 9:05 AM RN GERIATRIC Comparison radiograph from 08/08/2024. No consolidation, pleural effusion, or pneumothorax. Cardiomediastinal silhouette within normal limits. Dictated by: Julio Rooney M.D. The radiology attending physician has personally reviewed this study, and had reviewed and/or edited this written report and agrees with it. Electronically signed by: Brice Mantilla M.D. Narrative 08/11/2024 9:05 AM RN GERIATRIC EXAMINATION: 2 view chest radiograph Procedure Note [...] sult * ECG 12-LEAD (08/11/2024 1:43 AM RN GERIATRIC) Narrative [facility] - 08/11/2024 1:43 AM RN GERIATRIC Johnnie Kelly MD 08/11/2024 1:44 AM ECG [...] Hawkins MD ECG ORDERABLES Final Resu lt [facility] * XR Chest PA Lateral 2 Views (08/08/2024 10:42 PM RN GERIATRIC) Anatomical Region Laterality Modality Body, Chest N/A Computed Radiogr aphy 08/08/2024 11:0 3 PM RN GERIATRIC Impressions 08/09/2024 10:05 AM RN GERIATRIC The current study is compared with the prior radiograph dated 09/13/2019. Mild bibasilar atelectasis. No consolidation, pleural effusion, or pneumothorax. Cardiomediastinal silhouette within normal limits. Dictated by: Chet Boogie MD The radiology attending physician has personally reviewed this study, and had reviewed and/or edited this written report and agrees with it. Electronically signed by: Steve Arce M.D. Narrative 08/09/2024 10:05 AM RN GERIATRIC EXAMINATION: 2 view chest radiograph Procedure Note [...] CT Head WO Contrast (08/08/2024 10:34 PM RN GERIATRIC) Anatomical Region Laterality Modality Head and Neck N/A Computed Tomogra phy 08/08/2024 10:4 4 PM RN GERIATRIC Impressions 08/09/2024 10:54 AM RN GERIATRIC 1. No acute intracranial process. 2. Large burden of cerumen in both external auditory canals which may be impacted. Dictated by: Juancho Marquez MD, Ph.D The radiology attending physician has personally reviewed this study, and had reviewed and/or edited this written report and agrees with it. Electronically signed by: Indio Zambrano M.D. Narrative 08/09/2024 10:54 AM RN GERIATRIC EXAMINATION: CT head without contrast HISTORY: 43-year-old [...] ult * ECG 12-LEAD (08/08/2024 8:56 PM RN GERIATRIC) Narrative [facility] - 08/08/2024 8:56 PM RN GERIATRIC Salena Cobb MD 08/08/2024 8:57 PM ECG [...] MD ECG ORDERABLES Final Resul t [facility] * (ABNORMAL) Respiratory pathogen panel Nasopharyngeal (08/06/2024 9:59 AM RN GERIATRIC) Pathologist [facility] Influenza A RNA Not Detected Not Detected Influenza B RNA Not Detected Not Detected [facility] RSV RNA Not Detected Not Detected [facility] COVID-19 RNA Not Detected Not Detected [facility] Coronavirus 229E RNA Not Detected Not Detected [facility] Coronavirus HKU1 RNA Not Detected Not Detected [facility] Coronavirus NL63 RNA Detected(A) Not Detected [facility] Coronavirus OC43 RNA Not Detected Not Detected [facility] Adenovirus DNA Not Detected Not Detected [facility] Metapneumovirus RNA Not Detected Not Detected [facility] Rhinovirus/Enterov irus RNA Not Detected Not Detected [facility] [facility] Parainfluenza 1 RNA Not Detected Not Detected [facility] Parainfluenza 2 RNA Not Detected Not Detected [facility] Parainfluenza 3 RNA Not Detected Not Detected [facility] Parainfluenza 4 RNA Not Detected Not Detected [facility] B. pertussis DNA Not Detected Not Detected [facility] B. parapertussis DNA Not Detected Not Detected [facility] C. pneumoniae DNA Not Detected Not Detected [facility] M. pneumoniae DNA Not Detected Not Detected [facility] Nasopharyngeal 08/06/2024 9: 59 AM RN GERIATRIC 08/06/2024 10:52 AM RN GERIATRIC Narrative [facility] - 08/06/2024 11:43 AM RN GERIATRIC Is the Patient experiencing symptoms consistent with COVID?->Yes Surveillance testing for transplant patient?->No Interpretive Data The Discourse FilmArray Respiratory Panel (RP2.1) assay is a [...] assay has FDA clearance for testing of LINOLEUM LAYER HELPER swabs. The performance of additional specimen types has been assessed by the performing laboratory. The performance characteristics of this assay have been determined by [facility] Molecular Infectious Disease Laboratory. Current interpretive data was last revised on 22. [facility] MICROBIOLOGY - GENERAL [place]DE [place] Final Result [facility] Department [place] [address] from Last 3 Months Insurance [facility] [place] [address] [facility]ALTH [facility] [address] [facility] [facility] [employer] Advance Directives For more information, please contact: [phone] * Full Code (Latest Code Status on File) Date Activated Date Inactivated Comments 08/13/2024 3:12 AM 08/14/2024 6:01 PM * Full Code Date Activated Date Inactivated Comments 10/28/2022 5:15 PM 10/29/2022 2:07 PM * Full Code Date Activated Date Inactivated Comments 08/09/2019 5:28 PM 08/10/2019 5:09 PM * Full Code Date Activated Date Inactivated Comments 07/29/2019 4:26 PM 08/04/2019 10:36 PM Care Teams Accounts Specialist Relationship Specialty Start [place] [id number] [place] [address] PCP - General Family Medicine 05/18/24 [place] [address] [place] [address] Referring Physician General Surgery 08/04/19 [place] [id number] [address] Consulting Physician Gastroenterology 08/04/19
--- NOTE | 2024-09-22 01:12 | ED_ITS ---
HPI - General Adult General Chief complaint: Unspecified Stated complaint: medication refill request from outside hospital Time Seen by Provider: 09/22/24 00:47 Related Data Allergies Allergy/AdvReac Type Severity Reaction Status Date / Time iohexol (From contrast - CT, Allergy vomiting Verified 09/17/24 18:08 X-RAY) Course Vital Signs Vital signs: Vital Signs Temperature 36.4 C L 09/21/24 21:09 Pulse Rate 85 09/21/24 21:09 Respiratory Rate 14 09/21/24 21:09 Blood Pressure 122/67 09/21/24 21:09 Pulse Oximetry 98 09/21/24 21:09 Oxygen Delivery Room Air 09/21/24 21:09 Temperature 36.3 C L 09/21/24 23:46 Pulse Rate 72 09/21/24 23:46 Respiratory Rate 16 09/21/24 23:46 Blood Pressure 126/78 09/21/24 23:46 Pulse Oximetry 99 09/21/24 23:46 Oxygen Delivery Room Air 09/21/24 21:09 Medical Decision Making Vital Signs Vital Signs: Vital Signs Temperature 36.4 C L 09/21/24 21:09 Pulse Rate 85 09/21/24 21:09 Respiratory Rate 14 09/21/24 21:09 Blood Pressure 122/67 09/21/24 21:09 Pulse Oximetry 98 09/21/24 21:09 Oxygen Delivery Room Air 09/21/24 21:09 Temperature 36.3 C L 09/21/24 23:46 Pulse Rate 72 09/21/24 23:46 Respiratory Rate 16 09/21/24 23:46 Blood Pressure 126/78 09/21/24 23:46 Pulse Oximetry 99 09/21/24 23:46 Oxygen Delivery Room Air 09/21/24 21:09 Lab Data Labs: Lab Results 09/21/24 Range/Units 21:13 Influenza A (RT-PCR) Negative (Negative) Influenza B (RT-PCR) Negative (Negative) RSV (RT-PCR) Negative (Negative) SARS-CoV-2 RNA (RT-PCR) Negative (Negative) Discharge Plan Discharge Patient Language: Stateless Prescriptions: No Action cephalexin 500 mg capsule 500 mg PO Q8H 7 Days Qty: 21 0RF Follow-up/Referrals: UNKNOWN,DOCTOR [Primary Care Provider] -
[2024-09-22 01:35] VITALS: RESP 20; O2SAT 100
[2024-09-22] MEDS: FUROSEMIDE 40 MG TABLET PO (02:00)
[2024-09-22 03:00] VITALS: BP 133/71; PULSE 72; RESP 14; O2SAT 100
== END 2024-09-22 04:33 | disposition home or self-care (01) ==
LOC: ANHED 09-22 00:51
PROVIDERS: Emergency Medicine; Emergency Provider Registered Nurse
DX: R60.0 Localized edema (principal); L53.9 Erythematous condition, unspecified; Z20.822 Contact with and (suspected) exposure to COVID-19; Z90.49 Acquired absence of other specified parts of digestive tract
CPT/HCPCS: 73590; 87637; 99283; A9270

== ENCOUNTER 2024-09-24 19:59 | Emergency (ER) | payer MEDICAID, SELFPAY ==
--- OUTSIDE RECORDS SUMMARY | 2024-09-24 20:03 | XMS_ITS | Encounter Summary ---
Author Organization [facility] Healthcare Address [address] [place] [address] Care Team Providers Care Overhauler Name Role Phone Elias Andrews MD Unavailable [phone] Jonah Otto MD Unavailable [phone] Jerel Camejo MD Primary Care Provider [phone] Reason for Visit * Reason Comments Leg Pain Was seen for leg natalia n and swelling diagnosed with venous insuffiencey and told to use rosendo wraps. 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 When asked if he loosened them he said they won't work if their too loose Encounter Details Date Type Department Care Team (Late st Contact Info) Description 09/24/2024 9:46 AM DOOR TENDER - 09/24/2024 10:21 AM DOOR TENDER Emergency [facility] Emergency Department [address] [place] [address] Stefanie Kemp MD [address] [place] [address] Pain and swelling of left lower extremity (Primary Dx) Discharge Disposition: Discharge to home or self care Social History Tobacco Use Types Packs/Day Years Used Date Smoking Tobacco: Never Smokeless Tobacco: Never Alcohol Use Standard Drinks/Week Comments Not Currently 0 (1 standard drink = 0.6 oz pur e alcohol) [facility] Utilities Answer Date Recorded In the past 12 months has th e electric, gas, oil, or water [employer] threatened to shut off services in your home? Patient declined 08/14/2024 Social Connection and Isolation Panel [NHANES] A nswer Date Recorded In a typical week, how many times do you talk on the phone with family, friends, or neighbors? Patient declined 08/14/2024 How often do you get togethe r with friends or relatives? Patient declined 08/14/2024 How often do you attend latter-day or episcopalian serv ices? Patient declined 08/14/2024 Do you [...] any time in the past 12 [facility], were you homeless or living in a fci (including now)? Patient declined 08/14/2024 Personal Safety Answer Date Recorded Have you ever been in or are you currently in a harmful physical or emotional relationship or is someone making you feel afraid or unsafe? Denies 09/24/2024 Sex and Gender Information Value Date Recorded Sex Assigned at Not on file Legal Sex Male 9:25 PM DOOR TENDER Gender Identity Not on file Sexual Orientation Straight 11/18/2022 7: 07 PM CDT documented as of this encounter Last Filed Vital Signs Vital Sign Reading Time Taken Comments Blood Pressure 114/72 09/24/2024 8:27 AM DOOR TENDER Pulse 80 09/24/2024 8:27 AM DOOR TENDER Temperature 36.3 C (97.3 F) 09/24/2024 8:27 AM DOOR TENDER Respiratory Rate 17 09/24/2024 10:20 AM DOOR TENDER Oxygen Saturation 97% 09/24/2024 8:27 AM DOOR TENDER Inhaled Oxygen Concentration - - Weight 74.8 kg (165 lb) 09/24/2024 8:27 AM DOOR TENDER Height 172.7 cm (5' 8 ) 09/24/2024 8:27 AM DOOR TENDER Body Mass Index 25.09 09/24/2024 8:27 AM DOOR TENDER documented in this encounter Discharge Instructions * Discharge Instructions* Stefanie Kemp MD - 09/24/2024 10:11 AM DOOR TENDER Use a compression stocking instead of rosendo bandages for your swelling. Keep your leg elevated as much as possible. Return to the hospital if swelling worsens, you feel short of breath or have chest pain. Take tylenol daily, every 6-8 hours for the pain. You should call your primary doctor to follow up so they can do further testing and work with you outside of the hospital. TENDER * Attachments The following attachments cannot be sent through Care Everywhere. * Venous Insufficiency (Leather Coater) (Fijian) documented in this encounter Medications at Time of Discharge acetaminophen (TYLENOL) 500 mg tablet Take 2 tablets (1,000 mg total) by mouth every 6 (six) hours as needed for pain 30 tablet 09/24/2024 doxycycline (VIBRAMYCIN) 100 mg capsuleIndicatio ns:Skin/Soft Tissue Infection Take 1 tablet/capsule (100 mg total) by mouth 2 (two) times a day 20 capsule 08/23/2024 furosemide (LASIX) 20 mg tablet Take 2 tablets (40 mg total) by mouth daily for 5 days 10 tablet 09/20/2024 5 gabapentin (NEURONTIN) 100 mg capsuleIndicatio ns:Neuropathic Pain Take 1 capsule (100 mg total) by mouth 3 (three) times a day for 14 days 42 capsule 09/05/2024 hydroCHLOROthiaz jessica (HYDRODIURIL) 25 mg tabletIndication s:Cellulitis [...] daily for 7 days 7 tablet 09/11/2024 documented as of this encounter Ordered Prescriptions Prescription Sig Dispense Quantity Refills Last Filled Start Date End Date acetaminophen (TYLENOL) 500 mg tablet Take 2 tablets (1,000 mg total) by mouth every 6 (six) hours as needed for pain 30 tablet 09/24/2024 documented in this encounter Discharge Disposition Disposition Code Departure Means Destination Comment s Discharge to home or self care documented in this encounter ED Notes * Stefanie Kemp MD - 09/24/2024 9:50 AM CST HPI Chief Complaint Patient presents with Leg Pain Was seen for leg pain and swelling diagnosed with venous insuffiencey and told to use rosendo wraps. 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 When asked if he loosened them he said they won't work if their too loose HPI 44-year-old male presents to the ED with left leg pain for 3 days since he started using Rosendo bandages for compression for chronic swelling. He has been seen multiple times for this complaint on chartreview at least 20 times in the last 2-3 weeks. He says he thinks that the Rosendo bandages or irritating his skin. He says that he does not usually have pain when his swelling is controlled. He does notwant to take any medications due to side effects. He has tried lidocaine patches which do not provide any relief in the past and he does not want to take anti-inflammatories due to their side-effects. 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 On review of systems he denies any increase in his swelling and says it is actually much better today, no fever, no numbness tingling, no chest pain no difficulty breathing. He has not seen his primary care provider because he sees them onlyonce yearly. He was informed that he can see his primary care provider to follow up for these ongoin g symptoms. Patient History: Patient Active Problem List Diagnosis [...] History: Procedure Laterality Date CHOLECYSTECTOMY LUMBAR PUNCTURE 2019 Family History Problem Relation Age of Onset Diabetes Mother Social History Tobacco Use Smoking status: Never Smokeless tobacco: Never Vaping Use Vaping status: Never Used Substance and Sexual Activity Alcohol use: Not Currently Drug use: Never Sexual activity: Not Currently Partners: Female, Male control/protection: None Social History Social History Narrative Not on file Review of Systems Review of Systems See HPI No history of PE or DVT Physical Exam ED Triage Vitals [09/24/24 0827] Temp Pulse Resp BP SpO2 36.3 ??C (97.3 ??F) 80 28 114/72 97 % Temp src Heart Rate Source Patient Position BP Location FiO2 (%) -- -- -- -- -- Height Height Method Weight Weight Method 1.727 m (5' 8 ) -- 74.8 kg (165 lb) -- Pt does not appear tachypneic Physical Exam I have reviewed the vital signs Gen well nourished, well appearing HENT Ears, nose normal, NCAT Eyes: PERRL, Conj normal Neck Supple, trachea midline Abd Nontender, non distended, no mass appreciated Ext no clubbing, no cyanosis, ROM acceptable x 4; LLE pink, +1 pitting edema, no tenderness, pedal pulse intact Skin warm, dry, turgor normal Neuro alert Psych: appropriate mood, appropriate behavior MDM 44-year-old male with chronic venous insufficiency of the left lower extremity presents to the ED for 3 days of left lower extremity pain. He says that he does not normally have pain although on his repeated visits to the ED for similar symptoms he has complained of pain off and on in his been offered multiple strategies to alleviate the pain as well as instructed to follow up with his primary care doctor but has not. Although unlikely offered ultrasound to rule out DVT due to the occurrence ofpain again for the last 3 days, the patient does not feel that is necessary does not think he has an ultrasound and says that he already had an ultrasound earlier in the month that was negative. I have confirmed this on chart review. I have informed him that there is no sign of infection at this time and DVT is the only other emergency medical condition to be concerned with for which an ultrasound would reassure us. He does not want to stay for ultrasound. I have offered anti-inflammatories andlidocaine patches but he has declined due to side-effects. I recommended that he use compression sto ckings instead of Rosendo bandages and take Tylenol scheduled for the pain. He was not interested in any other interventions today. Heart Score NIH Score Medical Decision Making ED Course as of 09/24/24 1023 Time: 09/24 857 Comment: Pt had CBC, CMP yesterday at OSH with normal renal function, cell counts and K. By: Stefanie Kemp MD Time: 09/24 857 Comment: Pt has had >20 visits to ED/urgent care this month many for same complaint, treated with multiple doses of diuretics, prescribed gabapentin for chronic pain and referred to pain management as well. These visits are occurring after an admission to OSH for cellulitis in late August at [facility] where the following plan was carried out: #Bilateral lower extremity pitting edema #Cellulitis, left leg, Reviewed previous venous Doppler x 2 weeks prior and was unremarkable ECHO - normal Started on IV Lasix 20 mg BID on admission, but has had no response, switched to IV Bumex 1 mg b.i.d. on August 28. Daily weights & I/O monitoring -started on IV cefazolin Monitor electrolytes and replete prn - plan for discharge tomorrow By: Stefanie Kemp MD Time: 09/24 949 Comment: 09/03/24: US IMPRESSION: 1. No evidence of DVT in the lower extremities bilaterally. 2. Evidence of pulsatile venous flow. This may suggest increased intravascular volume or right-sided valvular heart disease. Clinical correlation suggested. 3. No change when compared to previous studies. By: Stefanie Kemp MD Final diagnoses: Pain and swelling of left lower extremity - chronic Stefanie Kemp MD 09/24/24 1023 TENDER * Carmen Girard RN - 09/24/2024 8:28 AM CST Upon exam in triage pt is not wearing an rosendo wrap on left leg. He just said no when asked about it. Carmen Girard RN 09/24/24 0829 TENDER documented in this encounter Plan of Treatment Not on file documented as of this encounter Visit Diagnoses Diagnosis Pain and swelling of left lower extremity- Primary documented in this encounter Discontinued Medications Medication Sig Discontinue Reason Start Date End Da te acetaminophen (TYLENOL) 500 mg tablet Take 2 tablets (1,000 mg total) by mouth every 6 (six) hours as needed for pain 09/05/2024 09/24/2024 documented as of this encounter Care Teams Overhauler Relationship Specialty Start [place] [address] [place] [address] PCP - General Family Medicine 05/18/24 [place] [address] [address] Referring Physician General Surgery 08/04/19 [place] [address] [address] Consulting Physician Gastroenterology 08/04/19 documented as of this encounter
--- OUTSIDE RECORDS SUMMARY | 2024-09-24 20:03 | XMS_ITS | Clinical Summary ---
Author Organization [facility] Address [address] [place] [phone] Phone Care Team Providers Care Probation Worker Name Role Phone Jerel Camejo MD Primary Care Provider [phone] Allergies Active Allergy Reactions Criticality Noted Date [...] (09/15/2024): Added automatically from request for surgery [id number] Leg wound, left 09/13/2019 Chronic abdominal pain 08/12/2019 S/P cholecystectomy 08/12/2019 Vasovagal episode 08/12/2019 Calculus of gallbladder 07/29/2019 Intractable right upper quadrant abdominal pain 07/29/2019 Overview (09/15/2024): Added automatically from request for surgery [id number] Nausea 07/29/2019 Adjustment disorder with depressed mood in remis devonte 11/05/2018 Generalized abdominal pain 10/25/2018 Sepsis 10/25/2018 Dizziness 10/20/2018 Syncope and collapse 10/20/2018 Encounters Date Type Department Care Team Description 09/23/2024 4:57 PM [facility] - 09/23/2024 6:39 PM [facility] Emergency Department [address] [place] [phone] Venous insufficiency (chronic) (peripheral) (Primary Dx); Malingering Discharge Disposition: Home or Self Care 09/23/2024 3:00 PM LAB SYSTEMS ANALYST Office Visit [address] [address] [facility] Cecilia Bell PA Venous stasis dermatitis (Primary Dx); Venous insufficiency (chronic) (peripheral); Lymphedema; Leg swelling 09/23/2024 2:55 AM LAB SYSTEMS ANALYST - 09/23/2024 9:39 AM [facility] Services [address] [place] [phone] Upper respiratory tract infection, unspecified type (Primary Dx) Discharge Disposition: Home or Self Care 09/21/2024 5:45 PM LAB SYSTEMS ANALYST Office Visit [facility] [address] [place] [address] [facility] Kay Melo FNP Acute cough (Primary Dx) 09/20/2024 8:51 PM [facility] - 09/20/2024 9:18 PM [facility] Emergency Department [address] [place] [phone] Karlo Dobbs MD Bilateral lower extremity edema (Primary Dx) Discharge Disposition: Home or Self Care 09/20/2024 Travel 09/20/2024 Patient Outreach [facility] Outpatient Care Management - [place] [id number] [place] [address] Rd [address], [place] [address] Thalia Wall LCSW Ambulatory Social Work 09/19/2024 5:58 PM [facility] - 09/19/2024 6:44 PM [facility] Emergency Services [address] [place] [phone] Asif Isabel MD Peripheral edema (Primary Dx) Discharge Disposition: Home or Self Care 09/19/2024 12:00 PM LAB SYSTEMS ANALYST Office Visit [facility] [address] [address] Rajiv Berry PA Cellulitis of left lower leg (Primary Dx); Edema of left lower leg 09/17/2024 1:11 AM LAB SYSTEMS ANALYST - 09/17/2024 2:12 AM [facility] Emergency Department [address] [place] [address] Nolan Lee MD Venous insufficiency (chronic) (peripheral) (Primary Dx) Discharge Disposition: Home or Self Care 09/15/2024 6:00 PM LAB SYSTEMS ANALYST Office Visit [facility] [address] [place] [address] Kay Melo FNP Nausea and vomiting, unspecified vomiting type (Primary Dx) 09/15/2024 2:19 AM LAB SYSTEMS ANALYST - 09/15/2024 3:50 AM [facility] Emergency Department [address] [place] [phone] Greg Todd MD Lower extremity edema (Primary Dx) Discharge Disposition: Home or Self Care 09/14/2024 Travel 09/13/2024 8:17 AM LAB SYSTEMS ANALYST - 09/13/2024 11:47 AM [facility] Emergency Department [address] [place] [phone] Batsheva Hayden MD Leg swelling (Primary Dx) Discharge Disposition: Home or Self Care 09/13/2024 Travel 09/10/2024 9:10 PM LAB SYSTEMS ANALYST - 09/10/2024 10:05 PM [facility] Emergency Room [address] [place] [address] Bilateral lower extremity edema (Primary Dx) Discharge Disposition: Home or Self Care 09/09/2024 9:55 PM LAB SYSTEMS ANALYST - 09/10/2024 12:20 AM [facility] Emergency Department [address] [place] [phone] Nolan Lee MD 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 (Primary Dx) Discharge Disposition: Home or Self Care 09/09/2024 2:45 AM LAB SYSTEMS ANALYST - 09/09/2024 3:11 AM [facility] Emergency Department [address] [place] [address] Mark Andrews DO Venous stasis dermatitis (Primary Dx); Other chronic pain Discharge Disposition: Home or Self Care 09/08/2024 Travel 09/05/2024 External Device Data STL ABSTRACTION Provider, Abstract 09/04/2024 6:46 AM LAB SYSTEMS ANALYST - 09/04/2024 7:21 AM [facility] Emergency Department [address] [place] [address] Fei Napoles DO Chronic pain of left lower extremity (Primary Dx) Discharge Disposition: Home or Self Care 08/24/2024 11:37 PM LAB SYSTEMS ANALYST - 08/24/2024 11:53 PM [facility] Emergency Department [address] [place] [address] Wicho Camarillo DO Cellulitis, unspecified cellulitis site (Primary Dx) Discharge Disposition: Home or Self Care 08/24/2024 External Device Data STL ABSTRACTION Provider, Abstract 2024 Results Follow-Up [facility] Internal Medicine - [place] [address] [facility] [place] [address] Jerel Camejo MD TSH, LIPID PANEL, COMPREHENSIVE METABOLIC PANEL, Additional followed-up results: 2 08/21/2024 3:00 PM LAB SYSTEMS ANALYST Office Visit [facility] Internal Medicine - [place] [address] [facility] [place] [phone] Jerel Camejo MD Encounter for routine adult health examination with abnormal findings (Primary Dx); Adjustment disorder with depressed mood in remission; LAD (lymphadenopathy); Screening for cardiovascular condition; Screening for lipoid disorders; Screening for endocrine disorder 08/21/2024 2:59 PM LAB SYSTEMS ANALYST - 08/21/2024 7:44 PM [facility] Emergency Department [address] [place] [address] Mike Sandoval DO Hilton, Steven A, MD Leg edema (Primary Dx); Persistent cough Discharge Disposition: Home or Self Care 08/21/2024 Travel 08/17/2024 2:50 AM LAB SYSTEMS ANALYST - 08/17/2024 3:37 AM [facility] Emergency [facility] Emergency Department [address] [place] [phone] Nolan Lee MD Viral syndrome (Primary Dx); Bilateral lower extremity edema Discharge Disposition: Home or Self Care 08/15/2024 External Device Data STL ABSTRACTION Provider, Abstract 08/14/2024 Orders Only [facility] Oncology and Hematology [facility] [address] [facility] [address] [place] [address] Ny Hicks MD Enlarged lymph nodes (Primary Dx) 08/11/2024 9:18 PM LAB SYSTEMS ANALYST - 08/12/2024 12:53 AM [facility] Emergency [facility] Emergency Department [address] [place] [address] Nasrin White MD COVID-19 virus detected (Primary [...] who hurts you emotionally and/or physically? No 09/23/2024 Sex and Gender Information Value Date Recorded Sex Assigned at Not on file Legal Sex Male 7:43 PM LAB SYSTEMS ANALYST Gender Identity Not on file Sexual Orientation Not on file Last Filed Vital Signs Vital Sign Reading Time Taken Comments Blood Pressure 108/73 09/23/2024 6:00 PM LAB SYSTEMS ANALYST Pulse 85 09/23/2024 4:06 PM LAB SYSTEMS ANALYST Temperature 37.3 C (99.2 F) 09/23/2024 4:06 PM LAB SYSTEMS ANALYST Respiratory Rate 16 09/23/2024 6:00 PM LAB SYSTEMS ANALYST Oxygen Saturation 99% 09/23/2024 6:00 PM LAB SYSTEMS ANALYST Inhaled Oxygen Concentration - - Weight 74.8 kg (165 lb) 09/23/2024 4:06 PM LAB SYSTEMS ANALYST Height 172.7 cm (5' 8 ) 09/23/2024 4:06 PM LAB SYSTEMS ANALYST Body Mass Index 25.09 09/23/2024 4:06 PM LAB SYSTEMS ANALYST Plan of Treatment Upcoming Encounters Date Type Department Care Team (Late st Contact Info) Description 08/27/2025 11:30 AM LAB SYSTEMS ANALYST Office Visit [facility] Internal Medicine - [place] [address] [place] [address] [place] [address] [facility] [address] [place] [address] Health Maintenance Due Date Last Done Comments HEPATITIS B VACCINES (1 of 3 - 19+ 3-dose series) 2001 Preventative Visit-Managed Medicaid 12/03/2023 12/01/2022 COVID-19 Vaccine (2023-2 5 season) 2024 2022, 04/04/2022, 12/10/2021 Pre-Diabetes and Diabetes Screening 09/23/2027 09/23/2024, 08/21/2024 DTAP/TDAP/TD VACCINES (2 - T d or Tdap) 08/05/2029 08/05/2019, 03/28/2014 INFLUENZA VACCINE Completed 04/03/2024, 05/01/2023, 04/04/2022 HPV VACCINES Aged Out No longer eligi ble based on patient's age to complete this topic Procedures Procedure Name Priority Date/Time Associated Diagnosis Comments HEMOGLOBIN A1C Stat 09/23/2024 9:00 AM LAB SYSTEMS ANALYST COMPREHENSIVE METABOLIC PANEL Stat 09/23/2024 9:00 AM LAB SYSTEMS ANALYST CBC WITH DIFFERENTIAL Stat 09/23/2024 9:00 AM LAB SYSTEMS ANALYST INFLUENZA A/B, RSV AND COVID-19 PCR PANEL Stat 09/22/2024 9:31 PM LAB SYSTEMS ANALYST INFLUENZA A/B, RSV AND COVID-19 PCR PANEL Stat 09/22/2024 9:31 PM LAB SYSTEMS ANALYST RAPID STREP SCREEN WITH REFLEX CULTURE Stat 09/22/2024 9:31 PM LAB SYSTEMS ANALYST POC COVID-19 ANTIGEN Routine 09/21/2024 5:48 PM LAB SYSTEMS ANALYST Acute cough POC INFLUENZA A AND B ANTIGEN Routine 09/21/2024 5:48 PM LAB SYSTEMS ANALYST Acute cough EXTRA TUBE (BLUE) Stat 09/19/2024 6:0 3 PM LAB SYSTEMS ANALYST EXTRA TUBE Stat 09/19/2024 6:03 PM LAB SYSTEMS ANALYST DIFFERENTIAL, MANUAL Stat 09/19/2024 5:59 PM LAB SYSTEMS ANALYST COMPREHENSIVE METABOLIC PANEL Stat 09/19/2024 5:59 PM LAB SYSTEMS ANALYST CBC WITH DIFFERENTIAL Stat 09/19/2024 5:59 PM LAB SYSTEMS ANALYST TROPONIN 2 HR, 5TH GEN Timed Study 09/17/2024 1:35 AM LAB SYSTEMS ANALYST EXTRA TUBE (BLUE) Stat 09/16/2024 9:1 3 PM LAB SYSTEMS ANALYST EXTRA TUBE Stat 09/16/2024 9:13 PM LAB SYSTEMS ANALYST COMPREHENSIVE METABOLIC PANEL Stat 09/16/2024 9:13 PM LAB SYSTEMS ANALYST CBC WITH DIFFERENTIAL Stat 09/16/2024 9:13 PM LAB SYSTEMS ANALYST TROPONIN BASELINE, 5TH GEN Stat 09/16/2024 9:13 PM LAB SYSTEMS ANALYST EKG 12-LEAD Stat 09/16/2024 9:02 PM LAB SYSTEMS ANALYST POC INFLUENZA A AND B ANTIGEN Routine 09/15/2024 6:16 PM LAB SYSTEMS ANALYST Nausea and vomiting, unspecified vomiting type COMPREHENSIVE METABOLIC PANEL Stat 09/14/2024 11:53 PM LAB SYSTEMS ANALYST CBC WITH DIFFERENTIAL Stat 09/14/2024 11:53 PM LAB SYSTEMS ANALYST POC GLUCOSE Stat 09/14/2024 11:51 PM LAB SYSTEMS ANALYST COMPREHENSIVE METABOLIC PANEL Stat 09/09/2024 9:16 PM LAB SYSTEMS ANALYST CBC WITH DIFFERENTIAL Stat 09/09/2024 9:16 PM LAB SYSTEMS ANALYST XR CHEST PA AND LATERAL 2 VW Stat 09/09/2024 1:17 AM LAB SYSTEMS ANALYST RESPIRATORY PATHOGEN PCR PANEL Stat 09/08/2024 11:[address] CHEST ABDOMEN PELVIS W CONT Stat 08/21/2024 6:55 PM LAB SYSTEMS ANALYST POC CREATININE Stat 08/21/2024 4:35 PM LAB SYSTEMS ANALYST C-REACTIVE PROTEIN Stat 08/21/2024 4: 27 PM LAB SYSTEMS ANALYST COMPREHENSIVE METABOLIC PANEL Stat 08/21/2024 4:27 PM LAB SYSTEMS ANALYST CBC WITH DIFFERENTIAL Stat 08/21/2024 4:27 PM LAB SYSTEMS ANALYST XR CHEST PA AND LATERAL 2 VW Stat 08/21/2024 3:25 PM LAB SYSTEMS ANALYST INFLUENZA A/B, RSV AND COVID-19 PCR PANEL Stat 08/21/2024 3:11 PM LAB SYSTEMS ANALYST INFLUENZA A/B, RSV AND COVID-19 PCR PANEL Stat 08/21/2024 3:11 PM LAB SYSTEMS ANALYST HEMOGLOBIN A1C Routine 08/21/2024 2:08 PM LAB SYSTEMS ANALYST Adjustment disorder with depressed mood in remission LAD (lymphadenopathy) CBC WITH DIFFERENTIAL Routine 08/21/2024 2:08 PM LAB SYSTEMS ANALYST Adjustment disorder with depressed mood in remission LAD (lymphadenopathy) COMPREHENSIVE METABOLIC PANEL Routine 08/21/2024 2:08 PM LAB SYSTEMS ANALYST Adjustment disorder with depressed mood in remission LAD (lymphadenopathy) LIPID PANEL Routine 08/21/2024 2:08 PM LAB SYSTEMS ANALYST Adjustment disorder with depressed mood in remission LAD (lymphadenopathy) TSH Routine 08/21/2024 2:08 PM LAB SYSTEMS ANALYST Adjustment disorder with depressed mood in remission LAD (lymphadenopathy) XR CHEST PA AND LATERAL 2 VW Stat 08/17/2024 3:26 AM LAB SYSTEMS ANALYST TROPONIN 2 HR, 5TH GEN Timed Study 08/11/2024 11:[address] HEAD WO CONTRAST Stat 08/11/2024 1 0:18 PM LAB SYSTEMS ANALYST EKG 12-LEAD Stat 08/11/2024 9:58 PM LAB SYSTEMS ANALYST TROPONIN BASELINE, 5TH GEN Stat 08/11/2024 9:57 PM LAB SYSTEMS ANALYST COMPREHENSIVE METABOLIC PANEL Stat 08/11/2024 9:57 PM LAB SYSTEMS ANALYST CBC WITH DIFFERENTIAL Stat 08/11/2024 9:57 PM LAB SYSTEMS ANALYST from Last 3 Months Results * CBC WITH DIFFERENTIAL (09/23/2024 9:00 AM LAB SYSTEMS ANALYST) Only the most recent of8 resultswithin the time period is included. WBC 4.9 4.0 - 11.0 K/uL 09/23/2024 9:05 AM [facility] LABORATORY [facility] [place] RBC 5.23 4.60 - 6.20 M/uL 09/23/2024 9:05 AM [facility] [place] HEMOGLOBIN 15.0 13.5 - 17.0 g/dL 09/23/2024 9:05 AM [facility] [place] HEMATOCRIT 45.9 40.0 - 54.0 % 09/23/2024 9:05 AM [facility] [place] MCV 87.8 80.0 - 98.0 fL 09/23/2024 9:05 AM [facility] [place] MCH 28.7 26.0 - 34.0 pg 09/23/2024 9:05 AM [facility] [place] MCHC 32.7 31.0 - 37.0 g/dL 09/23/2024 9:05 AM [facility] [place] RDW 12.3 11.5 - 14.5 % 09/23/2024 9:05 AM [facility] [place] RDW-STDEV 39.1 34.0 - 54.0 fL 09/23/2024 9:05 AM [facility] [place] PLATELETS 249 150 - 400 K/uL 09/23/2024 9:05 AM [facility] [place] MPV 9.8 8.5 - 12.5 fL 09/23/2024 9:05 AM [facility] [place] NEUTROPHILS 61 50 - 70 % 09/23/2024 9:05 AM LAB SYSTEMS ANALYST [facility] [place] LYMPHOCYTES 30 20 - 40 % 09/23/2024 9:05 AM LAB SYSTEMS ANALYST [facility] [place] MONOCYTES 6 2 - 8 % 09/23/2024 9:05 AM LAB SYSTEMS ANALYST [facility] [place] EOSINOPHILS 2 1 - 3 % 09/23/2024 9:05 AM [facility] [place] BASOPHILS 1 0 - 1 % 09/23/2024 9:05 AM [facility] [place] IMMATURE GRANULOCYTES 0 0 - 2 % 09/23/2024 9:05 AM LAB SYSTEMS ANALYST [facility] [place] NEUTROPHIL ABSOLUTE 3.00 1.80 - 7.70 K/uL 09/23/2024 9:05 AM [facility] LABORATORY [facility] [place] LYMPHOCYTE ABSOLUTE 1.47 1.00 - 3.30 K/uL 09/23/2024 9:05 AM [facility] LABORATORY [facility] MONOCYTE ABSOLUTE 0.28 0.00 - 0.80 K/uL 09/23/2024 9:05 AM [facility] LABORATORY [facility] EOSINOPHIL ABSOLUTE 0.10 0.00 - 0.45 K/uL 09/23/2024 9:05 AM [facility] LABORATORY [facility] BASOPHILS ABSOLUTE 0.04 0.00 - 0.20 K/uL 09/23/2024 9:05 AM [facility] LABORATORY [facility] IMMATURE GRANULOCYTES ABSOLUTE 0.01 0.00 - 0.31 K/uL 09/23/2024 9:05 AM [facility] LABORATORY [facility] Blood Collection / Unknown 09/23/2024 9:00 AM LAB SYSTEMS ANALYST 09/23/2024 9:03 AM LAB SYSTEMS ANALYST Rita Elizabeth NP HEMATOLOGY ORDERABLES Final Result [facility] CLIA # [id number] [address] [address] * HEMOGLOBIN A1C (09/23/2024 9:00 AM LAB SYSTEMS ANALYST) Only the most recent of2 resultswithin the time period is included. HEMOGLOBIN A1C 5.2 <=5.6 % 09/23/2024 10:06 AM [facility] [employer] [facility] EST. AVG GLUCOSE, A1C 103 mg/dL 09/23/2024 10:06 AM [facility] Blood Collection / Unknown 09/23/2024 9:00 AM LAB SYSTEMS ANALYST 09/23/2024 9:25 AM LAB SYSTEMS ANALYST Narrative [facility] LABORATORY [facility] - 09/23/2024 10:06 AM LAB SYSTEMS ANALYST HGB A1C INTERPRETATION NORMAL: <5.7% PRE-DIABETES: 5.7 - 6.4% DIABETES: 6.5% OR GREATER Rita Elizabeth NP CHEMISTRY ORDERABLES Final Result [facility] [place] # [id number] [address] [place] [address] * (ABNORMAL) COMPREHENSIVE METABOLIC PANEL (09/23/2024 9:00 AM LAB SYSTEMS ANALYST) Only the most recent of8 resultswithin the time period is included. Pathologist [facility] SODIUM 136 136 - 145 mmol/L 09/23/2024 9:25 AM [facility] [place] POTASSIUM 4.2 3.5 - 5.1 mmol/L 09/23/2024 9:25 AM [facility] CHLORIDE 95(L) 98 - 107 mmol/L 09/23/2024 9:25 AM [facility] [facility] CO2 30(H) 22 - 29 mmol/L 09/23/2024 9:25 AM [facility] [facility] CALCIUM 9.3 8.6 - 10.0 mg/dL 09/23/2024 9:25 AM [facility] [facility] BUN 21(H) 6 - 20 mg/dL 09/23/2024 9:25 AM [facility] [facility] CREATININE 0.90 0.67 - 1.17 mg/dL 09/23/2024 9:25 AM [facility] LABORATORY [facility] GLUCOSE 146(H) 74 - 99 mg/dL 09/23/2024 9:25 AM [facility] TOTAL PROTEIN 8.4 6.6 - 8.7 g/dL 09/23/2024 9:25 AM [facility] ALBUMIN 4.7 4.0 - 5.0 g/dL 09/23/2024 9:25 AM [facility] BILIRUBIN TOTAL 1.3(H) <=1.2 mg/dL 09/23/2024 9:25 AM [facility] LABORATORY [facility] ALKALINE PHOSPHATASE 94 40 - 129 U/L 09/23/2024 9:25 AM [facility] LABORATORY [facility] AST 28 <=41 U/L 09/23/2024 9:25 AM [facility] ALT 29 <=41 U/L 09/23/2024 9:25 AM [facility] GFR >60 >=60 mL/min/1.7 3 sq meter 09/23/2024 9:25 AM [facility] Comment:eGFR calculated with 2020 CKD-EPI equation. Vegetarian diet, extremely high or low muscle mass, and may affect results. Cystatin C with Glomerular Filtration Rate is a suitable alternative for these patients. ANION GAP 11 5 - 15 mmol/L 09/23/2024 9:25 AM [facility] Blood Collection / Unknown 09/23/2024 9:00 AM LAB SYSTEMS ANALYST 09/23/2024 9:10 AM LAB SYSTEMS ANALYST Rita Elizabeth NP CHEMISTRY ORDERABLES Final Result [facility] CLIA # [id number] [facility] [address] [place] [address] * INFLUENZA A/B, RSV AND COVID-19 PCR PANEL (09/22/2024 9:31 PM LAB SYSTEMS ANALYST) Only the most recent of2 resultswithin the time period is included. COVID-19 PCR NOT DETECTED Not Detected 09/22/19 10:18 PM [facility] Influenza A by PCR NOT DETECTED Not Detected 09/22/2024 10:18 PM [facility] Influenza B by PCR NOT DETECTED Not Detected 09/22/2024 10:18 PM [facility] RSV by PCR NOT DETECTED Not Detected 09/22/2024 10:18 PM [facility] Upper Respiratory ENTIRE NASOPHARYNX / Unknown Collection / Unknown 09/22/2024 9:31 PM LAB SYSTEMS ANALYST 09/22/2024 9:40 PM LAB SYSTEMS ANALYST Narrative [facility] LABORATORY [facility] - 09/22/2024 10:18 PM LAB SYSTEMS ANALYST This test has been authorized by the FDA under an Emergency Use Authorization for use by authorized laboratories. This test has been validated in accordance with the FDA's guidance regarding Coronavirus Disease-2019 testing. Optimum specimen types and timing for peak viral levels during infection have not been determined. A negative RT-PCR result does not rule out infection with the 2019-Novel Coronavirus. us Protocol Negrito Velásquez MD MICROBIOLOGY - GENERA L ORDERABLES Final Result Performing Organization Address [facility] Co de Phone Number [facility] [id number] [address] [address] * RAPID STREP SCREEN WITH REFLEX CULTURE (09/22/2024 9:31 PM LAB SYSTEMS ANALYST) [facility] RAPID STREP Not Detected Not Detected 09/22/2024 10:01 PM LAB SYSTEMS ANALYST [facility] Comment:This Group A Strep t est is a rapid PCR test for the qualitative detection of Group A Streptococcus from throat swab specimens. This test does not need confirmatory cultures for negative Strep A results, given the high sensitivity of molecular assays. However, pharyngitis may be caused by other bacterial organisms including beta-hemolytic Streptococci Group C or G, Arcanobacterium hemolyticum, Corynebacterium diphtheriae, or Fusobacterium necrophorum, for which specific culture methods are required. Additional follow-up testing by culture is required if testing is negative and clinical symptoms persist. Upper Respiratory SPECIMEN FROM THROAT / Unknown Collection / Unknown 09/22/2024 9:31 PM LAB SYSTEMS ANALYST 09/22/2024 9:36 PM LAB SYSTEMS ANALYST us Protocol Negrito Velásquez MD MICROBIOLOGY - GENERA L ORDERABLES Final Result Performing Organization Address [facility]/ZIP Co de Phone Number [facility] # [id number] [address] [address] * POC COVID-19 ANTIGEN (09/21/2024 5:48 PM LAB SYSTEMS ANALYST) [facility] COVID-19 ANTIGEN POC Presumptively Negative Presumptively Negative [facility] INTERNAL KIT QC POC Pass Pass [facility] KIT LOT NUMBER POC [id number] [facility] KIT EXP DATE POC 08/24/25 [facility] READ METHOD POC Visual [facility] Upper Respiratory 09/21/2024 5:48 PM LAB SYSTEMS ANALYST Kay Melo [employer] POINT OF CARE TESTING F inal Result Performing Organization Address [facility] Co de Phone Number [facility] CLIA# [id number] [place] [address] * POC INFLUENZA A AND B ANTIGEN (09/21/2024 5:48 PM LAB SYSTEMS ANALYST) Only the most recent of2 resultswithin the time period is included. INFLUENZA A AG POC Negative/Not Detected Negative/No t Detected [facility] INFLUENZA B AG POC Negative/Not Detected Negative/No t Detected [facility] INTERNAL KIT QC POC Pass Pass [facility] KIT LOT NUMBER POC [id number] [facility] KIT EXP DATE POC 03/01/26 [facility] READ METHOD POC Visual [facility] Upper Respiratory ANTERIOR NARES SWAB / Unknown 09/21/2024 5:48 PM LAB SYSTEMS ANALYST Kay Melo [employer] POINT OF CARE TESTING F inal Result Performing Organization Address [facility] Co de Phone Number [facility] CLIA# [id number] [place] [address] * EXTRA TUBE (BLUE) (09/19/2024 6:03 PM LAB SYSTEMS ANALYST) Only the most recent of2 resultswithin the time period is included. Blood Venipuncture / Unknown 09/19/2024 6:03 PM LAB SYSTEMS ANALYST 09/19/2024 6:36 PM LAB SYSTEMS ANALYST Asif Isabel MD HEMATOLOGY ORDERABLES Fin al Result Performing Organization Address City/[facility] Co de Phone Number [facility] CLIA # [id number] [address] [place] [address] * MANUAL DIFFERENTIAL (09/19/2024 5:59 PM LAB SYSTEMS ANALYST) Pathologist [facility] PLATELET EST. Consistent w Count 09/19/2024 6:19 PM LAB SYSTEMS ANALYST [facility] RBC MORPHOLOGY Normal 09/19/2024 6:19 PM LAB SYSTEMS ANALYST [facility] Blood Collection / Unknown 09/19/2024 5:59 PM LAB SYSTEMS ANALYST 09/19/2024 6:03 PM LAB SYSTEMS ANALYST us Asif Isabel MD HEMATOLOGY ORDERABLES COM Final Result Performing Organization Address [facility] Co de Phone Number [facility] CLIA # [id number] [address] [place] [address] * TROPONIN 2 HR, 5TH GEN (09/17/2024 1:35 AM LAB SYSTEMS ANALYST) Only the most recent of2 resultswithin the time period is included. Pathologist [facility] TROPONIN T, 2 HR 5TH GEN <6 <=15 ng/L 09/17/2024 2:08 AM LAB SYSTEMS ANALYST [facility] Blood Venipuncture / Unknown 09/17/2024 1:35 AM LAB SYSTEMS ANALYST 09/17/2024 1:40 AM LAB SYSTEMS ANALYST Narrative [facility] - 09/17/2024 2:08 AM LAB SYSTEMS ANALYST Troponin Undetectable Delay in collection of timed specimen beyond recommended collection interval. Results must be interpreted in clinical context. Unable to calculate delta. us Nolan Lee MD CHEMISTRY ORDERABLES Final R esult Performing Organization Address City/[facility]/ZIP Co de Phone Number [facility] CLIA# [id number] [place] [address] * TROPONIN BASELINE, 5TH GEN (09/16/2024 9:13 PM LAB SYSTEMS ANALYST) Only the most recent of2 resultswithin the time period is included. TROPONIN T, BASELINE 5TH GEN <6 <=15 ng/L 09/16/2024 9:58 PM LAB SYSTEMS ANALYST [facility] Blood Venipuncture / Unknown 09/16/2024 9:13 PM LAB SYSTEMS ANALYST 09/16/2024 9:20 PM LAB SYSTEMS ANALYST Narrative [facility] - 09/16/2024 9:58 PM LAB SYSTEMS ANALYST Troponin Undetectable us Nolan Lee MD CHEMISTRY ORDERABLES Final R esult [facility] CLIA# [id number] [address] [place] [address] * EKG 12-LEAD (09/16/2024 9:02 PM LAB SYSTEMS ANALYST) Only the most recent of2 resultswithin the time period is included. 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1980 Requested By: Order Number: [id number] Reading MD: Randy Haines Measurements Intervals [place] Rate: 77 P: 76 NE: 168 QRS: 87 QRSD: 90 T: 46 QT: 372 QTc: 420 Interpretive Statements Normal sinus rhythm Normal ECG Compared to ECG 08/11/2024 21:58:55 No significant changes Electronically Signed On 09-16-2024 22:35:15 LAB SYSTEMS ANALYST by Randy Haines Procedure Note Randy Haines MD - 09/16/2024 [place] [address] Test Date: 2024-09-16 Pat Name: LISA MCCOY Department: 94 Room: 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: Male 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1980 Requested By: Order Number: [id number] Reading MD: Randy Haines Measurements Intervals [place] Rate: 77 P: 76 NE: 168 QRS: 87 QRSD: 90 T: 46 QT: 372 QTc: 420 Interpretive Statements Normal sinus rhythm Normal ECG Compared to ECG 08/11/2024 21:58:55 No significant changes Electronically Signed On 09-16-2024 22:35:15 LAB SYSTEMS ANALYST by Randy Haines us Nolan Lee MD ECG ORDERABLES Final Result Performing Organization Address [facility] Co de Phone Number INTERFACE SYSTEM Refer to clinic/hospital department * (ABNORMAL) POC GLUCOSE (09/14/2024 11:51 PM LAB SYSTEMS ANALYST) GLUCOSE POC 119(H) 74 - 99 mg/dL 09/14/2024 11:51 PM LAB SYSTEMS ANALYST [facility] SPECIMEN SOURCE, GLUCOSE POC Whole Blood 09/14/2024 11:51 PM LAB SYSTEMS ANALYST [facility] Blood, whole 09/14/2024 11:5 1 PM LAB SYSTEMS ANALYST 09/14/2024 11:58 PM LAB SYSTEMS ANALYST us Interface Provider Poct POINT OF CARE TESTING Fi nal Result Performing Organization Address [facility] de Phone Number [facility] [employer] [facility] CLIA# [id number] [address] [place] [address] * XR CHEST PA AND LATERAL 2 VW (09/09/2024 1:17 AM LAB SYSTEMS ANALYST) Only the most recent of3 resultswithin the time period is included. Anatomical Region Laterality Modality Chest Computed Radiogr aphy 09/09/2024 1:18 AM LAB SYSTEMS ANALYST Impressions 09/09/2024 7:11 AM LAB SYSTEMS ANALYST IMPRESSION: Negative chest. DICTATION LOCATION: Location 1 - [facility] Narrative 09/09/2024 7:11 AM LAB SYSTEMS ANALYST XR CHEST PA AND LATERAL 2 VW [...] Negative chest. DICTATION LOCATION: Location 1 - [facility] Mark Andrews DO DIAGNOSTIC IMAGING ORDERABLES Final Result * RESPIRATORY PATHOGEN PCR PANEL (09/08/2024 11:43 PM LAB SYSTEMS ANALYST) Pathologist [facility] Respiratory Pathogen PCR Panel NOT DETECTED No respiratory pathogen nucleic acids detected. 09/09/2024 1:04 AM LAB SYSTEMS ANALYST [facility] COVID-19 PCR NOT DETECTED Not Detected 09/09/2024 1:04 AM LAB SYSTEMS ANALYST [facility] Upper Respiratory ENTIRE NASOPHARYNX / Unknown Collection / Unknown 09/08/2024 11:43 PM LAB SYSTEMS ANALYST 09/08/2024 11:49 PM LAB SYSTEMS ANALYST Narrative [facility] - 09/09/2024 1:04 AM LAB SYSTEMS ANALYST The Film Array Respiratory Panel (RP2.1) is [...] ORDERAB LES Final Result [facility]# [id number] [address] [place] [address] * CT CHEST ABDOMEN PELVIS W CONT (08/21/2024 6:55 PM LAB SYSTEMS ANALYST) Anatomical Region Laterality Modality Chest Computed Tomogra phy 08/21/2024 6:41 PM LAB SYSTEMS ANALYST Impressions 08/21/2024 7:15 PM LAB SYSTEMS ANALYST IMPRESSION: 1. No acute findings in the chest/abdomen/pelvis. Dictation location: Location 4 Narrative 08/21/2024 7:[address] CHEST ABDOMEN PELVIS W CONT TECHNIQUE: [...] Result * POC CREATININE (08/21/2024 4:35 PM LAB SYSTEMS ANALYST) CREATININE POC 1.10 0.70 - 1.20 mg/dL 08/21/2024 4:35 PM LAB SYSTEMS ANALYST [facility] [employer] [facility] GFR POC >60 >=60 mL/min/1.7 3 sq meter 08/21/2024 4:35 PM LAB SYSTEMS ANALYST [facility] [employer] [facility] Comment:eGFR calculated with 2020 CKD-EPI equation. Vegetarian diet, extremely high or low muscle mass, and may affect results. Cystatin C with Glomerular Filtration Rate is a suitable alternative for these patients. Blood, whole 08/21/2024 4:35 PM LAB SYSTEMS ANALYST 08/21/2024 4:39 PM LAB SYSTEMS ANALYST Result [facility] Carmelo Snow MD POINT OF CARE TESTING Final R esult [facility]# [id number] [address] [facility] [address] * C-REACTIVE PROTEIN (08/21/2024 4:27 PM LAB SYSTEMS ANALYST) CRP <3.0 <5.0 mg/L 08/21/2024 5:33 PM LAB SYSTEMS ANALYST [facility] [employer] [facility] Blood Venipuncture / Unknown 08/21/2024 4:27 PM LAB SYSTEMS ANALYST 08/21/2024 4:39 PM LAB SYSTEMS ANALYST Carmelo Snow MD CHEMISTRY ORDERABLES Final Re sult [facility]# [id number] [address] [place] [address] * TSH (08/21/2024 2:08 PM LAB SYSTEMS ANALYST) TSH 1.85 0.40 - 4.50 mIU/L [facility] [employer] Comment: FASTING:NO FASTING: NO Test Performed at: [place] [address] [place] [address] [place] [facility] Blood 08/21/2024 2:08 PM LAB SYSTEMS ANALYST 08/21/2024 2:08 PM LAB SYSTEMS ANALYST Jerel Camejo MD CHEMISTRY ORDERABLES Final Resul t Performing Organization Address City/[facility]/ZIP Code Phone Number [facility] [phone] [place] [address] [place] [address] * LIPID PANEL (08/21/2024 2:08 PM LAB SYSTEMS ANALYST) CHOLESTEROL 149 <200 mg/dL [facility] HDL 67 > OR = 40 mg/dL [facility] TRIGLYCERIDE 57 <150 mg/dL [facility] LDL CALCULATED 69 mg/dL (calc) [employer] [facility] Comment: Reference range: <100 Desirable range <100 mg/dL for primary prevention; <70 mg/dL for patients with CHD or diabetic patients with > or = 2 CHD risk factors. LDL-C is now calculated using the Hazel calculation, which is a validated novel method providing better accuracy than the Friedewald equation in the estimation of LDL-C. Fernando SS et al. GURDEEP. 2013;310(19): 8813-7762 (http://education.Hashtrack/faq/LKO310) CHOL/HDL RATIO 2.2 <5.0 (calc) [facility] NON-HDL CHOLESTEROL 82 <130 mg/dL (calc) [employer] Comment: For patients with diabetes plus 1 major ASCVD risk factor, treating to a non-HDL-C goal of <100 mg/dL (LDL-C of <70 mg/dL) is considered a therapeutic option. Test Performed at: [facility] [address] [place] [address] [place] [employer] Blood 08/21/2024 2:08 PM LAB SYSTEMS ANALYST 08/21/2024 2:08 PM LAB SYSTEMS ANALYST Result [facility] Jerel Camejo MD CHEMISTRY ORDERABLES Final Resul t [facility] [phone] [facility] [address] [place] [address] * CT HEAD WO CONTRAST (08/11/2024 10:18 PM LAB SYSTEMS ANALYST) Anatomical Region Laterality Modality Head Computed Tomogra phy 08/11/2024 10:1 8 PM LAB SYSTEMS ANALYST Impressions 08/11/2024 10:25 PM LAB SYSTEMS ANALYST IMPRESSION: 1. No acute intracranial findings. Dictation location: Location 4 Narrative 08/11/2024 10:25 PM LAB SYSTEMS ANALYST Indication: Syncope Study: CT head without IV [...] intracranial findings. Dictation location: Location 4 Result [facility] Nasrin White MD CT ORDERABLES Final Result from Last 3 [place] [address] [facility] [employer] [place] [address] [facility] [employer] Care Teams Probation Worker Relationship Specialty [place] [address] [facility] [address] Kyler Holland [address] [address] PCP - General Family Practice 12/01/22
--- OUTSIDE RECORDS SUMMARY | 2024-09-24 20:03 | XMS_ITS | Encounter Summary ---
Author Organization [facility] Address 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 Gender Identity Not on file Sexual Orientation [...] (Late Contact Info) Description 08/27/2025 11:30 AM REED PRESS FEEDER Office Visit [facility] Internal Medicine - [place] [address] [facility] [address] [place] [address] [place] [address] [facility] [address] Kyler Holland [facility] [address] [place] [address] documented as of this encounter Procedures Procedure Name Priority Date/Time Associated Diagnosis Comments SEDIMENTATION RATE Stat 12/24/2022 12 :05 PM CDT Generalized enlarged lymph nodes C-REACTIVE PROTEIN Stat 12/24/2022 12 :05 PM CDT Generalized enlarged lymph nodes documented in this encounter Results * C-REACTIVE PROTEIN (12/24/2022 12:05 PM CDT) CRP <3.0 <5.0 mg/L 12/24/2022 3:02 PM CDT [facility] Blood 12/24/2022 12:0 5 PM CDT 12/24/2022 2:22 PM CDT us Ny Hicks MD CHEMISTRY ORDERABLES Final Re sult [facility]# [id number] [address] [place] [address] * SEDIMENTATION RATE (12/24/2022 12:05 PM CDT) Pathologist [facility] ESR (SEDIMENTATION RATE) 7 <=15 mm/Hr 12/24/2022 2:55 PM CDT [facility] Blood Collection / Unknown 12/24/2022 12:05 PM CDT 12/24/2022 2:22 PM CDT us Ny Hicks MD HEMATOLOGY ORDERABLES Final R esult [facility] CLTX# [id number] [address] [place] [address] documented in this encounter Visit Diagnoses Diagnosis Generalized enlarged lymph nodes Enlargement of lymph nodes documented in this encounter Additional Health Concerns Infection Onset Date Last Indicated Resolved Time R/O COVID-19 08/21/2024 08/21/2024 08/21/2024 4:37 PM REED PRESS FEEDER R/O Respiratory 09/08/2024 09/08/2024 09/09/2024 1 :04 AM REED PRESS FEEDER R/O COVID-19 09/22/2024 09/22/2024 09/22/2024 10:1 8 PM REED PRESS FEEDER R/O Respiratory 09/23/2024 09/23/2024 09/23/2024 5 :58 PM REED PRESS FEEDER documented as of this encounter Care Teams Fisher Trap Relationship Specialty [place] [address] [facility] [address] [phone] PCP - General Family Practice 12/01/22 documented as of this encounter
--- OUTSIDE RECORDS SUMMARY | 2024-09-24 20:03 | XMS_ITS | Encounter Summary ---
Author Organization [facility] Address [address] [place] [address] Care Team Providers Care Personnel Psychologist Name Role Phone Jerel Camejo MD Primary Care Provider [phone] Reason for Visit * Reason Comments Sore Throat Runny nose and sore throat * Auth/Cert (Routine) Specialty Diagnoses / Procedures Referred By Anthony gilmore Referred To Contact Emergency Medicine [facility] Emergency Services [address] [place] [phone] Phone: tel: fax: Referral ID Status Reason Start Date Expiration Date Visits Re quested Visits Authorized [id number] 1 1 Encounter Details Date Type Department Care Team (Late st Contact Info) Description 09/23/2024 2:55 AM QUILL COLLECTOR - 09/23/2024 9:39 AM QUILL COLLECTOR Emergency [facility] Emergency Services [address] [place] [phone] Upper respiratory tract infection, unspecified type (Primary [...] on file Legal Sex Male 7:43 PM QUILL COLLECTOR Gender Identity Not on file Sexual Orientation Not on file documented as of this encounter Last Filed Vital Signs Vital Sign Reading Time Taken Comments Blood Pressure 118/74 09/23/2024 7:43 AM QUILL COLLECTOR Pulse - - Temperature 37 C (98.6 F) 09/23/2024 7:43 AM QUILL COLLECTOR Respiratory Rate 18 09/23/2024 7:43 AM QUILL COLLECTOR Oxygen Saturation 95% 09/23/2024 7:43 AM QUILL COLLECTOR Inhaled Oxygen Concentration - - Weight 74.8 kg (165 lb) 09/22/2024 9:28 PM QUILL COLLECTOR Height 172.7 cm (5' 8 ) 09/22/2024 9:28 PM QUILL COLLECTOR Body Mass Index 25.09 09/22/2024 9:28 PM QUILL COLLECTOR documented in this encounter Discharge Instructions * Discharge Instructions* Rita Elizabeth NP - 09/23/2024 9:28 AM QUILL COLLECTOR You tested negative for influenza, COVID, RSV and strep. There were no concerning findings on your lab work to suggest an electrolyte abnormality. Your symptoms are due to a virus. Treatment is supportive. Take wtyi-bdj-babkhka medications such as Zyrtec or Claritin for your nasal symptoms. Follow-up with your primary physician as needed. Return to ED as needed. Thank you for choosing the [facility] Emergency Department for your care. I strive to take your healthcare seriously and provide you with excellent service as my patient, making it my #1 priority. You will receive a survey via call, text or email after your visit today. Please take the time to engage with the survey. We are specifically focusing on the Trust in Care I have provided for you as your provider. Please let us know either prior to discharge if for some reason you cannot give the highest possible rating for Trust in Care. Thank you for allowing me the privilege of caring for you today. L COLLECTOR L COLLECTOR documented in this encounter Medications at Time of Discharge ondansetron (ZOFRAN ODT) 4 mg Tablet, Rapid Dissolve Take 1 Tablet (4 mg) by mouth every 8 hours as needed for Nausea/Emesis. Dissolve tablet on top of tongue, then swallow with saliva. 30 Tablet 09/15/2024 09/25/2024 documented as of this encounter ED Notes * Katharine Duenas RN - 09/23/2024 4:56 AM CST Pt reports my nose is running. No other compliants. Denies fevers, denies n/v/d and denies cough.Pt is A&Ox4 and resps are even and unlabored. No nasal discharge noted. L COLLECTOR * Rita Elizabeth, JOB COACH - 09/22/2024 8:04 AM CST HISTORY OF PRESENT ILLNESS Subjective History of Present Illness The patient with history of leg edema presents for evaluation of nasal congestion and sore throat. Nasal Congestion and Sore Throat - He has been experiencing symptoms of rhinorrhea, fatigue, and headache since the initiation of diuretic therapy approximately 1 week ago. - He reports no presence of cough, nausea, or vomiting. - Additionally, he has not experienced any episodes of dyspnea. Diuretic Therapy - He has been on diuretics for about a week. - He reports frequent urination and improvement in leg swelling. HPI PAST MEDICAL HISTORY REVIEWED MEDICAL: Patient has a past medical history of Leg swelling. SURGICAL: Patient has a past surgical history that includes cholecystectomy (08/01/2019); surgical other (07/2020); and esophagogastroduodenoscopy (08/03/2019). ALLERGIES Iodinated contrast media PHYSICAL EXAM INITIAL VS BP: 110/74 (09/22/242127), Heart Rate: 69 bpm (09/22/242127), Resp: 18 (09/22/242127), Pulse: (not recorded), Temp: 97.9 ??F (36.6 ??C) (09/22/242127), Temp src: Oral (09/22/242127), SpO2: 100 %(09/22/242127), Height: 5' 8 (172.7 cm) (09/22/242127), Weight: 74.8 kg (165 lb) (09/22/242127), BMI (Calculated): (!) 25.08 (09/22/242127) No LMP for male patient. Objective Blood pressure 118/74, temperature 98.6 ??F (37 ??C), temperature source Temporal, resp. rate 18, height 5' 8 (1.727 m), weight 74.8 kg (165 lb), SpO2 95%. Physical Exam Vitals and nursing note reviewed. Constitutional: Appearance: He is well-developed. HENT: Right Ear: Tympanic membrane normal. Left Ear: Tympanic membrane normal. Nose: Congestion present. Mouth/Throat: Mouth: Mucous membranes are moist. Pharynx: Oropharynx is clear. Cardiovascular: Rate and Rhythm: Normal rate. Pulmonary: Effort: Pulmonary effort is normal. Musculoskeletal: General: Normal range of motion. Cervical back: Normal range of motion. Right lower leg: Edema present. Left lower leg: Edema present. Skin: General: Skin is warm and dry. Neurological: Mental Status: He is alert and oriented to person, place, and time. Psychiatric: Mood and Affect: Affect is flat. DIAGNOSTICS LAB: COMPREHENSIVE METABOLIC PANEL - Abnormal Result Value SODIUM 136 POTASSIUM 4.2 CHLORIDE 95 (*) CO2 30 (*) CALCIUM 9.3 BUN 21 (*) CREATININE 0.90 GLUCOSE 146 (*) TOTAL PROTEIN 8.4 ALBUMIN 4.7 BILIRUBIN TOTAL 1.3 (*) ALKALINE PHOSPHATASE 94 AST 28 ALT 29 GFR >60 ANION GAP 11 RAPID STREP SCREEN WITH REFLEX CULTURE - Normal RAPID STREP Not Detected INFLUENZA A/B, RSV AND COVID-19 PCR PANEL - Normal COVID-19 PCR Not Detected Influenza A by PCR Not Detected Influenza B by PCR Not Detected RSV by PCR Not Detected CBC WITH DIFFERENTIAL - Normal WBC 4.9 RBC 5.23 HEMOGLOBIN 15.0 HEMATOCRIT 45.9 MCV 87.8 MCH 28.7 MCHC 32.7 RDW 12.3 RDW-STDEV 39.1 PLATELETS 249 MPV 9.8 NEUTROPHILS 61 LYMPHOCYTES 30 MONOCYTES 6 EOSINOPHILS 2 BASOPHILS 1 IMMATURE GRANULOCYTES 0 NEUTROPHIL ABSOLUTE 3.00 LYMPHOCYTE ABSOLUTE 1.47 MONOCYTE ABSOLUTE 0.28 EOSINOPHIL ABSOLUTE 0.10 BASOPHILS ABSOLUTE 0.04 IMMATURE GRANULOCYTES ABSOLUTE 0.01 INFLUENZA A/B, RSV AND COVID-19 PCR PANEL RADIOLOGY: No orders to display EKG: PROCEDURES Procedures MEDICAL DECISION MAKING AND PLAN OF CARE Assessment & Plan Initial Assessment: Patient presents with nasal congestion, sore throat, runny nose, and headache. Recently started on diuretics for leg swelling. ED Course: - Viral swab and strep tests negative. - Concern for possible electrolyte abnormality due to diuretics. - No concerning findings on lab work. - Sodium level check to monitor for electrolyte abnormalities. Final Assessment: Negative viral swab and strep tests. No alarming findings in lab work. Supportivetreatment recommended. Clinical Impression: - URI Disposition: - Discharge - Follow-Up: Follow up with primary physician as needed. MDM Components Evaluation: - Number of Differential Diagnoses or Management Options: Electrolyte imbalance - Amount and Complexity of Data Reviewed: Viral swab, strep test, lab work - Risk of Complication and Morbidity or Mortality: Low risk due to negative lab findings and supportive treatment plan. Medical Decision Making Amount and/or Complexity of Data Reviewed Labs: ordered. Clinical Scoring & Consults Discharge Medication List as of 09/23/2024 9:28 AM CONTINUE these medications which have NOT CHANGED Details ondansetron (ZOFRAN ODT) 4 mg Tablet, Rapid Dissolve Take 1 Tablet (4 mg) by mouth every 8 hours asneeded for Nausea/Emesis. Dissolve tablet on top of tongue, then swallow with saliva., Disp-30 Tablet, R-0 LAST VS BP: 118/74 (09/23/24742), Heart Rate: 68 bpm (09/23/24742), Resp: 18 (09/23/24742), Pulse: (not recorded), Temp: 98.6 ??F (37 ??C) (09/23/24742), Temp src: Temporal (09/23/24742), SpO2: 95 % (09/23/24742) CLINICAL IMPRESSION Diagnosis Diagnosis Comment Added By Time Added Upper respiratory tract infection, unspecified type [J06.9] Rita Elizabeth NP 09/23/2024 9:27 AM DISPOSITION, EDUCATION AND MEDICATION RECONCILIATION Medications reconciled. See after visit summary for patient education on discharged patients. ED Disposition ED Disposition Discharge Condition Stable User Rita Elizabeth NP Date/Time Sat Sep 23, 2024 9:26 AM Comment -- ATTESTATION STATEMENTS The author of this note, patient (or authorized health and safety representative), and all other persons present consent to the audio recording of this visit for charting documentation purposes. Cosigned by Krishan Saenz MD at 09/23/2024 11:06 AM QUILL COLLECTOR L COLLECTOR L COLLECTOR documented in this encounter Miscellaneous Notes * Gen AI RUTH - GENERATIVE AI HANDOFF NOTE - 09/24/2024 7:31 PM CST ## ER_course: ## # DIAGNOSIS: Upper respiratory tract infection (URI), unspecified type. The patient presented with nasal congestion, sore throat, runny nose, and headache. These symptoms began after starting diuretic therapy for leg swelling approximately one week ago. The patient denied fever, cough, nausea, vomiting, and dyspnea. # During the ER visit, viral swab and strep tests were negative. There was a concern for possible electrolyte abnormality due to diuretics, but no alarming findings were noted in the lab work. Abnormal lab results included a low chloride level (95), elevated CO2 (30), elevated BUN (21), elevated glucose (146), and elevated bilirubin total (1.3). Sodium level was monitored for potential electrolyte abnormalities. # The patient was discharged with a recommendation for supportive treatment. ## Follow_up_orders: ## # Follow up with primary physician as needed. # Sodium level check was ordered to monitor for electrolyte abnormalities (PENDING AT DISCHARGE). ## Home_Situation: ## # No specific factors potentially impairing follow-up care were noted in the ER documentation. L COLLECTOR documented in this encounter Plan of Treatment Upcoming Encounters Date Type Department Care Team (Late st Contact Info) Description 08/27/2025 11:30 AM QUILL COLLECTOR Office Visit [facility] Internal Medicine - [place] [address] [facility] [address] [place] [address] [place] [address] [facility] [address] [place] [phone] documented as of this encounter Procedures Procedure Name Priority Date/Time Associated Diagnosis Comments CBC WITH DIFFERENTIAL Stat 09/23/2024 9:00 AM QUILL COLLECTOR HEMOGLOBIN A1C Stat 09/23/2024 9:00 AM QUILL COLLECTOR COMPREHENSIVE METABOLIC PANEL Stat 09/23/2024 9:00 AM QUILL COLLECTOR INFLUENZA A/B, RSV AND COVID-19 PCR PANEL Stat 09/22/2024 9:31 PM QUILL COLLECTOR INFLUENZA A/B, RSV AND COVID-19 PCR PANEL Stat 09/22/2024 9:31 PM QUILL COLLECTOR RAPID STREP SCREEN WITH REFLEX CULTURE Stat 09/22/2024 9:31 PM QUILL COLLECTOR documented in this encounter Results * HEMOGLOBIN A1C (09/23/2024 9:00 AM QUILL COLLECTOR) HEMOGLOBIN A1C 5.2 <=5.6 % 09/23/2024 10:06 AM [facility] [employer] [facility] EST. AVG GLUCOSE, A1C 103 mg/dL 09/23/2024 10:06 AM [facility] [employer] [facility] Blood Collection / Unknown 09/23/2024 9:00 AM QUILL COLLECTOR 09/23/2024 9:25 AM QUILL COLLECTOR Narrative [facility] - 09/23/2024 10:06 AM QUILL COLLECTOR HGB A1C INTERPRETATION NORMAL: <5.7% PRE-DIABETES: 5.7 - 6.4% DIABETES: 6.5% OR GREATER Rita Elizabeth NP CHEMISTRY ORDERABLES Final Result [facility] [employer] [facility] [id number] Formerly [facility] [address] [place] [address] * (ABNORMAL) COMPREHENSIVE METABOLIC PANEL (09/23/2024 9:00 AM QUILL COLLECTOR) SODIUM 136 136 - 145 mmol/L 09/23/2024 9:25 AM [facility] [employer] [facility] POTASSIUM 4.2 3.5 - 5.1 mmol/L 09/23/2024 9:25 AM [facility] [employer] [facility] CHLORIDE 95(L) 98 - 107 mmol/L 09/23/2024 9:25 AM [facility] [employer] [facility] CO2 30(H) 22 - 29 mmol/L 09/23/2024 9:25 AM [facility] CALCIUM 9.3 8.6 - 10.0 mg/dL 09/23/2024 9:25 AM [facility] BUN 21(H) 6 - 20 mg/dL 09/23/2024 9:25 AM [facility] CREATININE 0.90 0.67 - 1.17 mg/dL 09/23/2024 9:25 AM [facility] GLUCOSE 146(H) 74 - 99 mg/dL 09/23/2024 9:25 AM [facility] TOTAL PROTEIN 8.4 6.6 - 8.7 g/dL 09/23/2024 9:25 AM [facility] ALBUMIN 4.7 4.0 - 5.0 g/dL 09/23/2024 9:25 AM [facility] BILIRUBIN TOTAL 1.3(H) <=1.2 mg/dL 09/23/2024 9:25 AM [facility] ALKALINE PHOSPHATASE 94 40 - 129 U/L 09/23/2024 9:25 AM [facility] AST 28 <=41 U/L 09/23/2024 9:25 AM [facility] ALT 29 <=41 U/L 09/23/2024 9:25 AM [facility] GFR >60 >=60 mL/min/1.7 3 sq meter 09/23/2024 9:25 AM [facility] Comment:eGFR calculated with 2020 CKD-EPI equation. Vegetarian diet, extremely high or low muscle mass, and may affect results. Cystatin C with Glomerular Filtration Rate is a suitable alternative for these patients. ANION GAP 11 5 - 15 mmol/L 09/23/2024 9:25 AM [facility] Blood Collection / Unknown 09/23/2024 9:00 AM [facility] 09/23/2024 9:10 AM [facility] Rita Elizabeth NP CHEMISTRY ORDERABLES Final Result [facility] CLIA # [id number] Formerly [facility] [address] [place] [address] * CBC WITH DIFFERENTIAL (09/23/2024 9:00 AM QUILL COLLECTOR) [facility] WBC 4.9 4.0 - 11.0 K/uL 09/23/2024 9:05 AM [facility] [place] RBC 5.23 4.60 - 6.20 M/uL 09/23/2024 9:05 AM [facility] [place] HEMOGLOBIN 15.0 13.5 - 17.0 g/dL 09/23/2024 9:05 AM [facility] [place] HEMATOCRIT 45.9 40.0 - 54.0 % 09/23/2024 9:05 AM [facility] [facility] [place] MCV 87.8 80.0 - 98.0 fL 09/23/2024 9:05 AM [facility] [place] MCH 28.7 26.0 - 34.0 pg 09/23/2024 9:05 AM [facility] [place] MCHC 32.7 31.0 - 37.0 g/dL 09/23/2024 9:05 AM [facility] [place] RDW 12.3 11.5 - 14.5 % 09/23/2024 9:05 AM [facility] [place] RDW-STDEV 39.1 34.0 - 54.0 fL 09/23/2024 9:05 AM [facility] [place] PLATELETS 249 150 - 400 K/uL 09/23/2024 9:05 AM [facility] [place] MPV 9.8 8.5 - 12.5 fL 09/23/2024 9:05 AM [facility] [place] NEUTROPHILS 61 50 - 70 % 09/23/2024 9:05 AM QUILL COLLECTOR [facility] [place] LYMPHOCYTES 30 20 - 40 % 09/23/2024 9:05 AM QUILL COLLECTOR [facility] [place] MONOCYTES 6 2 - 8 % 09/23/2024 9:05 AM QUILL COLLECTOR [facility] EOSINOPHILS 2 1 - 3 % 09/23/2024 9:05 AM QUILL COLLECTOR [facility] [place] BASOPHILS 1 0 - 1 % 09/23/2024 9:05 AM [facility] [employer] [facility] IMMATURE GRANULOCYTES 0 0 - 2 % 09/23/2024 9:05 AM [facility] [employer] [facility] NEUTROPHIL ABSOLUTE 3.00 1.80 - 7.70 K/uL 09/23/2024 9:05 AM [facility] [employer] [facility] LYMPHOCYTE ABSOLUTE 1.47 1.00 - 3.30 K/uL 09/23/2024 9:05 AM [facility] MONOCYTE ABSOLUTE 0.28 0.00 - 0.80 K/uL 09/23/2024 9:05 AM [facility] [employer] [facility] EOSINOPHIL ABSOLUTE 0.10 0.00 - 0.45 K/uL 09/23/2024 9:05 AM [facility] BASOPHILS ABSOLUTE 0.04 0.00 - 0.20 K/uL 09/23/2024 9:05 AM [facility] [employer] [facility] IMMATURE GRANULOCYTES ABSOLUTE 0.01 0.00 - 0.31 K/uL 09/23/2024 9:05 AM [facility] [employer] [facility] Blood Collection / Unknown 09/23/2024 9:00 AM QUILL COLLECTOR 09/23/2024 9:03 AM QUILL COLLECTOR Rita Elizabeth NP HEMATOLOGY ORDERABLES Final Result [facility] [employer] [facility] CLIA # [id number] [address] [id number] * INFLUENZA A/B, RSV AND COVID-19 PCR PANEL (09/22/2024 9:31 PM QUILL COLLECTOR) [facility] COVID-19 PCR NOT DETECTED Not Detected 09/22/19 10:18 PM [facility] [employer] [facility] Influenza A by PCR NOT DETECTED Not Detected 09/22/2024 10:18 PM [facility] [employer] [facility] Influenza B by PCR NOT DETECTED Not Detected 09/22/2024 10:18 PM [facility] [employer] [facility] RSV by PCR NOT DETECTED Not Detected 09/22/2024 10:18 PM [facility] [employer] [facility] Upper Respiratory ENTIRE NASOPHARYNX / Unknown Collection / Unknown 09/22/2024 9:31 PM QUILL COLLECTOR 09/22/2024 9:40 PM QUILL COLLECTOR Narrative [facility] - 09/22/2024 10:18 PM QUILL COLLECTOR This test has been authorized by the [...] L ORDERABLES Final Result Performing Organization Address [facility]/ZIP Co de Phone Number [facility] CLIA # [id number] Formerly [facility] [address] [place] [address] * RAPID STREP SCREEN WITH REFLEX CULTURE (09/22/2024 9:31 PM QUILL COLLECTOR) [facility] RAPID STREP Not Detected Not Detected 09/22/2024 10:01 PM QUILL COLLECTOR [facility] Comment:This Group A Strep t est is [...] Unknown Collection / Unknown 09/22/2024 9:31 PM QUILL COLLECTOR 09/22/2024 9:36 PM QUILL COLLECTOR us Protocol Negrito Velásquez MD MICROBIOLOGY - GENERA L ORDERABLES Final Result Performing Organization Address City/[facility]/ZIP Co de Phone Number [facility] CLIA # [id number] Former[facility] [address] [place] [address] documented in this encounter Visit Diagnoses Diagnosis Upper respiratory tract infection, unspecified type- Primary documented in this encounter Care Teams Personnel Psychologist Relationship Specialty [place] [address] [facility] [address] Kyler Holland [address] [phone] PCP - General Family Practice 12/01/22 documented as of this encounter
--- OUTSIDE RECORDS SUMMARY | 2024-09-24 20:03 | XMS_ITS | Encounter Summary ---
Author Organization [facility] Healthcare Address [address] [place] [address] Care Team Providers Care Concrete Pavement Installer Name Role Phone Elias Andrews MD Unavailable [phone] Jonah Otto MD Unavailable [phone] Jerel Camejo MD Primary Care Provider [phone] Reason for Visit * Reason Comments Leg Pain Encounter Details Date Type Department Care Team (Late st Contact Info) Description 09/24/2024 1:31 PM INFANTRY WEAPONS OFFICER - 09/24/2024 2:22 PM INFANTRY WEAPONS OFFICER Emergency [facility] Emergency Department [address] [place] [id number] Pain and swelling of lower extremity, left (Primary Dx) Discharge Disposition: Discharge to home or self care Social History Tobacco Use Types Packs/Day Years Used Date Smoking Tobacco: Never Smokeless Tobacco: Never Alcohol Use Standard Drinks/Week Comments Not Currently 0 (1 standard drink = 0.6 oz pur e alcohol) [facility] Utilities Answer Date Recorded In the past 12 months has th [employer] electric, gas, oil, or water company threatened [...] declined 08/14/2024 How often do you attend bahai or sabianist serv ices? Patient declined 08/14/2024 Do you belong to any clubs o r organizations such as bahai groups, unions, fraternal or athletic groups, or [...] any time in the past 12 m [facility], were you homeless or living [...] on file Legal Sex Male 9:25 PM INFANTRY WEAPONS OFFICER Gender Identity Not on file Sexual Orientation Straight 11/18/2022 7: 07 PM CDT documented as of this encounter Last Filed Vital Signs Vital Sign Reading Time Taken Comments Blood Pressure 123/75 09/24/2024 12:17 PM INFANTRY WEAPONS OFFICER Pulse 85 09/24/2024 12:17 PM INFANTRY WEAPONS OFFICER Temperature 36.7 C (98 F) 09/24/2024 12:17 PM INFANTRY WEAPONS OFFICER Respiratory Rate 16 09/24/2024 12:17 PM INFANTRY WEAPONS OFFICER Oxygen Saturation 100% 09/24/2024 12:17 PM INFANTRY WEAPONS OFFICER Inhaled Oxygen Concentration - - Weight 74.8 kg (165 lb) 09/24/2024 12:17 PM INFANTRY WEAPONS OFFICER Height 172.7 cm (5' 8 ) 09/24/2024 12:17 PM INFANTRY WEAPONS OFFICER Body Mass Index 25.09 09/24/2024 12:17 PM INFANTRY WEAPONS OFFICER documented in this encounter Discharge Instructions * Discharge Instructions* Nelsy Gaspar PA - 09/24/2024 2:10 PM INFANTRY WEAPONS OFFICER Use compression stockings in place of ashley bandage if ashley bandage is causing pain. Elevate the extremity to assist with swelling. NSAIDs will be best for pain and swelling, but you can use Tylenol as needed. Keep the area clean. Return to the ER if new or concerning symptoms arise. NTRY WEAPONS OFFICER * Attachments The following attachments cannot be sent through Care Everywhere. * Leg Swelling in a Single Leg (Irish) documented in this encounter Medications at Time [...] daily for 5 days 10 tablet 09/20/2024 gabapentin (NEURONTIN) 100 mg capsuleIndicatio ns:Neuropathic Pain [...] or as directed by . 15 patch 09/05/2024 5 naproxen (NAPROSYN) 500 mg tablet Take 1 tablet (500 mg total) by mouth 2 (two) times a day with meals 30 tablet 09/02/2024 potassium chloride ER (KLOR-CON) 20 mEq CR tablet Take 1 tablet (20 mEq total) by mouth daily for 7 days 7 tablet 09/11/2024 documented as of this encounter Discharge Disposition Disposition Code Departure Means Destination Comment s Discharge to home or self care documented in this encounter ED Notes * Ijeoma Bishop RN - 09/24/2024 12:16 PM CST Pt sates he has been wearing his compression stockings and his LLE hurts NTRY WEAPONS OFFICER documented in this encounter Plan of Treatment Not on file documented as of this encounter Visit Diagnoses Diagnosis Pain and swelling of lower extremity, left- Primary documented in this encounter Care Teams Concrete Pavement Installer Relationship Specialty [place] [address] [address] [place] [address] PCP - General Family Medicine 05/18/24 [place] [address] [address] [facility] [address] [place] [address] Referring Physician General Surgery 08/04/19 [place] [address] [address] Consulting Physician Gastroenterology 08/04/19 documented as of this encounter
--- OUTSIDE RECORDS SUMMARY | 2024-09-24 20:03 | XMS_ITS | Encounter Summary ---
Author Organization [facility] Address [address] [place] [address] Care Team Providers Care System Archive Analyst Name Role Phone Jerel Camejo MD Primary Care Provider [phone] Reason for Referral * Eval and Treat (2-4 Days) - Open Specialty Diagnoses / Procedures Referred By Anthony gilmore Referred To Contact Diagnoses Lymphedema Leg swelling Procedures OR OFFICE/OUTPATIENT ESTABLISHED MOD MDM 30 MIN OR OFFICE/OUTPATIENT NEW MODERATE MDM 45 MINUTES Cecilia Bell PA [address] [place] [address] Phone: tel: fax: Referral ID Status Reason Start Date Expiration Date Visits Re quested Visits Authorized [id number] Open 09/23/2024 09/23/2025 1 1 NT TECHNOLOGIES ANALYST Reason for Visit * Reason Comments need strong antibiotic Encounter Details Date Type Department Care Team (Late st Contact Info) Description 09/23/2024 3:00 PM CLIENT TECHNOLOGIES ANALYST Office Visit [facility] [address] [address] [facility] Cecilia Bell PA [address] [place] [address] Venous stasis dermatitis (Primary Dx); Venous insufficiency (chronic) (peripheral); Lymphedema; Leg swelling Social History Tobacco Use Types Packs/Day Years [...] on file Legal Sex Male 7:43 PM CLIENT TECHNOLOGIES ANALYST Gender Identity Not on file Sexual Orientation Not on file documented as of this encounter Patient Instructions * Attachments The following attachments cannot be sent through Care Everywhere. * Venous Insufficiency: General Info (Macedonian) * Edema: Leg and Ankle (Macedonian) documented in this encounter Plan of Treatment Upcoming Encounters Date Type Department Care Team (Late st Contact Info) Description 08/27/2025 11:30 AM CLIENT TECHNOLOGIES ANALYST Office Visit [facility] [place] [address] [place] [address] [place] [address] [facility] [address] [facility] [address] Kyler Holland [facility] [address] [place] [address] Scheduled Referrals Name Type Priority Associated Diagnoses Order Schedule AMB REFERRAL TO LYMPHEDEMA CLINIC Outpatient Referral Routine Lymphedema Leg swelling Ordered: 09/23/2024 documented as of this encounter Visit Diagnoses Diagnosis Venous stasis dermatitis- Primary Varicose veins of lower extremities with inflammation Venous insufficiency (chronic) (peripheral) Unspecified venous (peripheral) insufficiency Lymphedema Other lymphedema Leg swelling Swelling of limb documented in this encounter Care Teams System Archive Analyst Relationship Specialty [place] [address] [facility] [address] Kyler Holland [facility] [address] [place] [address] PCP - General Family Practice 12/01/22 documented as of this encounter
--- OUTSIDE RECORDS SUMMARY | 2024-09-24 20:03 | XMS_ITS | Encounter Summary ---
Author Organization [facility] Address [address] [place] [address] Care Team Providers Care Die Repair Machinist Name Role Phone Jerel Camejo MD Primary Care Provider Reason for Visit * Reason Comments Leg Pain Pt arrives to ED via private vehicle with c.o left lower leg pain/infection. Pt has been seen multiple times for infection, reports infection will not go away. Pt was seen at [facility] this morning. * Auth/Cert (Routine) Specialty Diagnoses / Procedures Referred By Contac t Referred To Contact Emergency Medicine Count Includes [facility] Emergency Department [address] [place] [address] Phone: tel: fax: Referral ID Status Reason Start Date Expiration Date Visits Re quested Visits Authorized [id number] 1 1 Encounter Details Date Type Department Care Team (Late st Contact Info) Description 09/23/2024 4:57 PM CALIBRATION TECHNICIAN - 09/23/2024 6:39 PM CALIBRATION TECHNICIAN Emergency Count Includes [facility] Emergency Department [id number] [place] [phone] Venous insufficiency (chronic) (peripheral) (Primary Dx); Malingering Discharge Disposition: Home or Self Care Social [...] on file Legal Sex Male 7:43 PM CALIBRATION TECHNICIAN Gender Identity Not on file Sexual Orientation Not on file documented as of this encounter Last Filed Vital Signs Vital Sign Reading Time Taken Comments Blood Pressure 108/73 09/23/2024 6:00 PM CALIBRATION TECHNICIAN Pulse 85 09/23/2024 4:06 PM CALIBRATION TECHNICIAN Temperature 37.3 C (99.2 F) 09/23/2024 4:06 PM CALIBRATION TECHNICIAN Respiratory Rate 16 09/23/2024 6:00 PM CALIBRATION TECHNICIAN Oxygen Saturation 99% 09/23/2024 6:00 PM CALIBRATION TECHNICIAN Inhaled Oxygen Concentration - - Weight 74.8 kg (165 lb) 09/23/2024 4:06 PM CALIBRATION TECHNICIAN Height 172.7 cm (5' 8 ) 09/23/2024 4:06 PM CALIBRATION TECHNICIAN Body Mass Index 25.09 09/23/2024 4:06 PM CALIBRATION TECHNICIAN documented in this encounter Discharge Instructions * Attachments The following attachments cannot be sent through Care Everywhere. * Venous Insufficiency: General Info (Maori) documented in this encounter Medications at Time of Discharge ondansetron (ZOFRAN ODT) 4 mg Tablet, Rapid Dissolve Take 1 Tablet (4 mg) by mouth every 8 hours as needed for Nausea/Emesis. Dissolve tablet on top of tongue, then swallow with saliva. 30 Tablet 09/15/2024 09/25/2024 documented as of this encounter ED Notes * Indoi Brown, GINGER - 09/23/2024 4:06 PM CST HISTORY OF PRESENT ILLNESS Subjective 44-year-old male presents the ER complaining of bilateral leg swelling, left greater than right. Patient has had 30 ER visits in the month of September plus for urgent care visits in the month of September for similar symptoms. Patient states he was concerned that the Rosendo bandage given to him would not be sufficient to reduce the swelling. Patient concerned that he will not be able to return to work due to the swelling in his left leg. Patient states he does have a primary care doctor, but does not have an appointment to see him for several weeks. Patient states he was recently put on a short course of Lasix and antibiotics, both of which she has since completed. Leg Pain PAST MEDICAL HISTORY REVIEWED MEDICAL: Patient has a past medical history of Leg swelling. SURGICAL: Patient has a past surgical history that includes cholecystectomy (08/01/2019); surgical other (07/2020); and esophagogastroduodenoscopy (08/03/2019). ALLERGIES Iodinated contrast media PHYSICAL EXAM INITIAL VS BP: 102/69 (09/23/24 1606), Heart Rate: 85 bpm (09/23/24 1606), Resp: 16 (09/23/24 1606), Pulse: 85(09/23/24 1606), Temp: 99.2 ??F (37.3 ??C) (09/23/24 1606), Temp src: Temporal (09/23/24 1606), SpO2: 100 % (09/23/24 1606), Height: 5' 8 (172.7 cm) (09/23/24 1606), Weight: 74.8 kg (165 lb) (09/23/24 1606), BMI (Calculated): (!) 25.08 (09/23/24 160) No LMP for male patient. Objective Blood pressure 102/69, pulse 85, temperature 99.2 ??F (37.3 ??C), temperature source Temporal, resp. rate 16, height 5' 8 (1.727 m), weight 74.8 kg (165 lb), SpO2 100%. Physical Exam Constitutional: Appearance: Normal appearance. He is normal weight. HENT: Head: Normocephalic. Eyes: Extraocular Movements: Extraocular movements intact. Conjunctiva/sclera: Conjunctivae normal. Pupils: Pupils are equal, round, and reactive to light. Cardiovascular: Rate and Rhythm: Normal rate and regular rhythm. Pulses: Normal pulses. Heart sounds: Normal heart sounds. Pulmonary: Effort: Pulmonary effort is normal. Breath sounds: Normal breath sounds. Musculoskeletal: Right lower leg: Edema present. Left lower leg: Edema present. Skin: General: Skin is warm. Capillary Refill: Capillary refill takes less than 2 seconds. Comments: Healing wound to left leg Neurological: General: No focal deficit present. Mental Status: He is alert and oriented to person, place, and time. Mental status is at baseline. Psychiatric: Mood and Affect: Mood normal. Behavior: Behavior normal. Thought Content: Thought content normal. Judgment: Judgment normal. DIAGNOSTICS LAB: No data to display RADIOLOGY: No orders to display EKG: PROCEDURES Procedures MEDICAL DECISION MAKING AND PLAN OF CARE Medical Decision Making 44-year-old male presenting with left leg edema. This was his third visit to medical provider todaypatient was concerned that the Rosendo bandage was not sufficient enough to minimize the swelling in his left leg. Encourage patient to keep his legs elevated and use compression stockings are O's. Also encourage patient to limit the use of ER in urgent care for his chronic conditions and to follow-up with his PCP to maintain continuity of care. Patient stated understanding. Clinical Scoring & Consults . New Prescriptions for this Encounter LAST VS BP: 102/69 (09/23/24 160), Heart Rate: 85 bpm (09/23/241605), Resp: 16 (09/23/24 160), Pulse: 85(09/23/241605), Temp: 99.2 ??F (37.3 ??C) (09/23/241605), Temp src: Temporal (09/23/241605), SpO2: 100 % (09/23/241605) CLINICAL IMPRESSION Diagnoses Diagnosis Comment Added By Time Added Venous insufficiency (chronic) (peripheral) [I87.2] Indio Brown FNP 09/23/2024 5:24 PM Malingering [Z76.5] Indio Brown FNP 09/23/2024 5:24 PM DISPOSITION, EDUCATION AND MEDICATION RECONCILIATION Medications reconciled. See after visit summary for patient education on discharged patients. ED Disposition ED Disposition Discharge Condition Stable User Indio Brown FNP Date/Time Sat Sep 23, 2024 5:44 PM Comment -- ATTESTATION STATEMENTS Diagnoses Diagnosis Comment Added By Time Added Venous insufficiency (chronic) (peripheral) [I87.2] Indio Brown FNP 09/23/2024 5:24 PM Malingering [Z76.5] Indio Brown FNP 09/23/2024 5:24 PM Cosigned by Wicho Camarillo DO at 09/23/2024 6:01 PM CALIBRATION TECHNICIAN BRATION TECHNICIAN BRATION TECHNICIAN BRATION TECHNICIAN documented in this encounter Miscellaneous Notes * Gen AI RUTH - GENERATIVE AI HANDOFF NOTE - 09/23/2024 6:31 PM CST ## ER_course: ## # DIAGNOSIS: Venous insufficiency (chronic) (peripheral) and Malingering. # The patient, a 44-year-old male, presented with bilateral leg swelling, more pronounced in the left leg. This was his third visit to a medical provider on the same day, and he has had multiple ER visits in the past month for similar symptoms. The patient expressed concern that the Rosendo bandage provided was insufficient to reduce the swelling and was worried about his ability to return to work. # During the ER visit, the patient was advised to keep his legs elevated and use compression stockings. He was also encouraged to limit the use of ER and urgent care for chronic conditions and to follow up with his primary care provider (PCP) for continuity of care. # No abnormal findings from testing were noted as no labs or radiology were ordered during this visit. ## Follow_up_orders: ## # The patient was instructed to follow up with his primary care provider to maintain continuity of care. # No new prescriptions were provided during this encounter. # The patient was advised to use compression stockings and keep his legs elevated. ## Home_Situation: ## # The patient expressed concern about not being able to return to work due to the swelling in his left leg. There were no specific mentions of transportation, caregiver support, finances, or language barriers in the provided notes. BRATION TECHNICIAN documented in this encounter Plan of Treatment Upcoming Encounters Date Type Department Care Team (Late st Contact Info) Description 08/27/2025 11:30 AM CALIBRATION TECHNICIAN Office Visit [facility] Internal Medicine - [place] [address] [facility] [address] [place] [phone] [place] [address] [facility] [facility] [facility] [address] [place] [phone] documented as of this encounter Visit Diagnoses Diagnosis Venous insufficiency (chronic) (peripheral)- Primary Unspecified venous (peripheral) insufficiency Malingering Person feigning illness documented in this encounter Additional Health Concerns Infection Onset Date Last Indicated Resolved Time R/O Respiratory 09/23/2024 09/23/2024 09/23/2024 5 :58 PM CALIBRATION TECHNICIAN documented as of this encounter Care Teams Die Repair Machinist Relationship Specialty [place] [address] [facility] [facility] [address] Kyler Holland [address] [phone] PCP - General Family Practice 12/01/22 documented as of this encounter
--- OUTSIDE RECORDS SUMMARY | 2024-09-24 20:03 | XMS_ITS | Encounter Summary ---
Author Organization [facility] Healthcare Address [address] [place] [address] Care Team Providers Care Religious Healer Name Role Phone Elias Andrews MD Unavailable [phone] Jonah Otto MD Unavailable [phone] Jerel Camejo MD Primary Care Provider [phone] Reason for Visit * Reason Comments Fatigue Nasal Congestion Encounter Details Date Type Department Care Team (Late st Contact Info) Description 09/22/2024 6:30 PM ENVIRONMENTAL SYSTEMS COORDINATOR Office Visit [facility] [place] [address] [place] [phone] Charlene To NP [address] [place] [address] Upper respiratory tract infection, unspecified type (Primary Dx); Nasal congestion Social History Tobacco Use Types Packs/Day Years Used Date Smoking Tobacco: Never Smokeless Tobacco: Never Alcohol Use Standard Drinks/Week Comments Not Currently 0 (1 standard drink = 0.6 oz pur e alcohol) [facility] Utilities Answer Date Recorded In the past 12 months has [employer], gas, oil, or water [employer] threatened to shut off services in your home? Patient declined 08/14/2024 Social Connection and Isolation Panel [NHANES] A nswer Date Recorded In a typical week, how many times do you talk on the phone with family, friends, or neighbors? Patient declined 08/14/2024 How often do you get togethe r with friends or relatives? Patient declined 08/14/2024 How often do you attend islam or yarsanism serv ices? Patient declined 08/14/2024 Do you [...] any time in the past 12 m [facility], were you homeless or living in a residential (including now)? Patient declined 08/14/2024 Personal Safety Answer Date Recorded Have you ever been in or are you currently in a harmful physical or emotional relationship or is someone making you feel afraid or unsafe? Denies 09/20/2024 Sex and Gender Information Value Date Recorded Sex Assigned at Not on file Legal Sex Male 9:25 PM ENVIRONMENTAL SYSTEMS COORDINATOR Gender Identity Not on file Sexual Orientation Straight 11/18/2022 7: 07 PM CDT documented as of this encounter Last Filed Vital Signs Vital Sign Reading Time Taken Comments Blood Pressure 105/70 09/22/2024 5:23 PM ENVIRONMENTAL SYSTEMS COORDINATOR Pulse 98 09/22/2024 5:23 PM ENVIRONMENTAL SYSTEMS COORDINATOR Temperature 36.7 C (98.1 F) 09/22/2024 5:23 PM ENVIRONMENTAL SYSTEMS COORDINATOR Respiratory Rate 16 09/22/2024 5:23 PM ENVIRONMENTAL SYSTEMS COORDINATOR Oxygen Saturation 98% 09/22/2024 5:23 PM ENVIRONMENTAL SYSTEMS COORDINATOR Inhaled Oxygen Concentration - - Weight - - Height - - Body Mass Index - - documented in this encounter Patient Instructions * Patient Instructions* Charlene To NP - 09/22/2024 6:30 PM ENVIRONMENTAL SYSTEMS COORDINATOR It is most likely that your symptoms are being caused by a viral infection. Fortunately, these illnesses usually resolve on their own with time and do not require antibiotics. The mainstay of treatment is symptomatic care. Symptomatic care includes humidity, rest, and fluids Tylenol/Motrin as needed for fever/pain Follow-up with PCP in 2-3 days Report to ED for new/worsening symptoms RONMENTAL SYSTEMS COORDINATOR documented in this encounter Progress Notes * Charlene To NP - 09/22/2024 6:30 PM CST Images from the original note were not included. Subjective/Objective Patient ID: Samuel Mccoy is a 44 y.o. male. Chief Complaint Fatigue and Nasal Congestion Samuel presents today with fatigue and runny nose starting yesterday. He was concerned about potential side effects of lasix so he notes he stopped taking it after two doses. He notes it did help improve the swelling in his legs. He denies cough, chest tightness, or shortness of breath. Fatigue Associated symptoms include congestion and fatigue. Pertinent negatives include no chills, coughing, fever, headaches, myalgias, nausea, rash, sore throat or vomiting. Review of Systems Constitutional: Positive for fatigue. Negative for chills and fever. HENT: Positive for congestion and rhinorrhea. Negative for ear pain, postnasal drip, sinus pressure, sinus pain and sore throat. Eyes: Negative for pain and redness. Respiratory: Negative for cough, chest tightness, shortness of breath and wheezing. Gastrointestinal: Negative for nausea and vomiting. Genitourinary: Negative for dysuria. Musculoskeletal: Negative for myalgias. Skin: Negative for rash. Neurological: Negative for dizziness, light-headedness and headaches. BP 105/70 (BP Location: Right arm, Patient Position: Sitting) Pulse 98 Temp 36.7 ??C (98.1 ??F)(Oral) Resp 16 SpO2 98% There is no height or weight on file to calculate BMI. Physical Exam Vitals reviewed. Constitutional: Appearance: He is not ill-appearing. HENT: Head: Normocephalic and atraumatic. Right Ear: Tympanic membrane, ear canal and external ear normal. Left Ear: Tympanic membrane, ear canal and external ear normal. Nose: Nose normal. Mouth/Throat: Mouth: Mucous membranes are moist. Eyes: Conjunctiva/sclera: Conjunctivae normal. Cardiovascular: Rate and Rhythm: Normal rate and regular rhythm. Heart sounds: Normal heart sounds. Pulmonary: Effort: Pulmonary effort is normal. No respiratory distress. Breath sounds: Normal breath sounds. No wheezing or rales. Abdominal: Palpations: Abdomen is soft. Musculoskeletal: General: Normal range of motion. Cervical back: Normal range of motion. Skin: General: Skin is warm and dry. Neurological: General: No focal deficit present. Mental Status: He is alert and oriented to person, place, and time. Psychiatric: Mood and Affect: Mood normal. Behavior: Behavior normal. Recent Results (from the past 4 hours) POC Influenza A/B, COVID-19 antigen Collection Time: 09/22/24 5:30 PM Result Value Ref Range Influenza A Ag, POC Negative Negative Influenza B Ag, POC Negative Negative COVID-19 Ag POC Presumptive Negative Presumptive Negative, Invalid Diagnoses and all orders for this visit: Nasal congestion (Primary) - POC Influenza A/B, COVID-19 antigen It is most likely that your symptoms are being caused by a viral infection. Fortunately, these illnesses usually resolve on their own with time and do not require antibiotics. The mainstay of treatment is symptomatic care. Symptomatic care includes humidity, rest, and fluids Tylenol/Motrin as needed for fever/pain Follow-up with PCP in 2-3 days Report to ED for new/worsening symptoms Charlene To NP RONMENTAL SYSTEMS COORDINATOR documented in this encounter Plan of Treatment Not on file documented as of this encounter Procedures Procedure Name Priority Date/Time Associated Diagnosis Comments POC INFLUENZA A/B, COVID-19 ANTIGEN Routine 09/22/2024 5:30 PM ENVIRONMENTAL SYSTEMS COORDINATOR Nasal congestion documented in this encounter Results * POC Influenza A/B, COVID-19 antigen (09/22/2024 5:30 PM ENVIRONMENTAL SYSTEMS COORDINATOR) Influenza A Ag, POC Negative Negative [facility] Influenza B Ag, POC Negative Negative [facility] COVID-19 Ag POC Presumptive Negative Presumptive Negative, Invalid [facility] Nasopharyngeal 09/22/2024 5: 30 PM ENVIRONMENTAL SYSTEMS COORDINATOR us Charlene To INSIDE SALES ACCOUNT REPRESENTATIVE POINT OF CARE TEST HELENA PRITCHARD Final Result Performing Organization Address City/State/[facility] Co de Phone Number [facility] [address] [place] [address] documented in this encounter Visit Diagnoses Diagnosis Upper respiratory tract infection, unspecified type- Primary Nasal congestion Other diseases of nasal cavity and sinuses documented in this encounter Care Teams Religious Healer Relationship Specialty [place] [address] [place] [address] PCP - General Family Medicine 05/18/24 [place] [address] [address] [facility] [address] [place] [address] Referring Physician General Surgery 08/04/19 [place] [address] [address] Consulting Physician Gastroenterology 08/04/19 documented as of this encounter
--- OUTSIDE RECORDS SUMMARY | 2024-09-24 20:03 | XMS_ITS | Clinical Summary ---
Author Organization [facility] Address [address] [place] [address] Care Team Providers Care Customer Support Associate Name Role Phone Unavailable Primary Care Provider [...] patient's age to complete this topic Insurance Hy[employer] PPO
--- OUTSIDE RECORDS SUMMARY | 2024-09-24 20:04 | XMS_ITS | Clinical Summary ---
Author Organization [address] Address [address] [place] [phone] Care Team Providers Care Computer Aided Design Operator Name Role Phone Elias Andrews MD Unavailable [phone] Jonah Otto MD Unavailable [phone] Jerel Camejo MD Primary Care Provider [phone] Allergies Active Allergy Reactions Criticality Noted Date [...] . 15 patch 09/05/19 25 025 Active gabapentin (NEURONTIN) 100 mg capsuleIndica tions:Neuropa [...] days 10 tablet 09/20/19 25 025 Active acetaminophen (TYLENOL) 500 mg tablet Take 2 tablets (1,000 mg total) by mouth every 6 (six) hours as needed for pain 30 tablet 09/24/19 25 Active furosemide (LASIX) 20 mg tablet [...] pain 30 tablet 09/03/19 25 025 Discontinued acetaminophen (TYLENOL) 500 mg tablet Take 2 tablets (1,000 mg total) by mouth every 6 (six) hours as needed for pain 30 tablet 09/05/19 25 025 Discontinued cephalexin (KEFLEX) 500 mg [...] Insurance Qualify for In Clinic PT? 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 Assessment & Plan (08/09/2019 7:07 PM TITLE PROCESSOR): Patient presents with complaints of ongoing abdominal [...] 07/29/2019 Assessment & Plan (08/10/2019 10:48 AM TITLE PROCESSOR): Ongoing nausea post cholecystectomy w/o vomiting. Tolerating PO, no emesis overnight - prn zofran - ADAT Assessment & Plan (08/09/2019 7:17 PM TITLE PROCESSOR): Ongoing nausea post cholecystectomy w/o vomiting. - prn zofran - ADAT Calculus of gallbladder 07/29/2019 Dizziness 07/29/2019 Assessment & Plan (08/10/2019 10:59 AM TITLE PROCESSOR): Patient describes dizziness related to uncontrolled abdominal pain. He endorses pain starts in RQ and moves to head . He then becomes diaphoretic, nauseous. Improved this AM. Likely vasovagal, hemodynamically stable. - discussed proper hydration and symptom management Assessment & Plan (08/09/2019 7:16 PM TITLE PROCESSOR): Patient describes dizziness related to uncontrolled abdominal pain. He endorses pain starts in RQ and moves to head . He then becomes diaphoretic, nauseous. - likely vasovagal, s/p 1 L LR in ED. CTM Intractable right upper quadrant abdominal pain 07/29/2019 Overview (08/01/2019): Added automatically from request for surgery [id number] Adjustment disorder with depressed mood in remkaylen devonte 11/05/2018 Sepsis 10/25/2018 Abdominal pain, generalized 10/25/2018 Dizziness 10/20/2018 Syncope and collapse 10/20/2018 Gallbladder adhesions Resolved Problems Problem Noted Date Diagnosed Date Resolved Date COVID-19 08/13/2024 08/14/2024 Encounters Date Type Department Care Team Description 09/24/2024 1:31 PM TITLE PROCESSOR - 09/24/2024 2:22 PM [facility] Emergency [facility] Emergency Department [address] [place] [phone] Pain and swelling of lower extremity, left (Primary Dx) Discharge Disposition: Discharge to home or self care 09/24/2024 9:46 AM TITLE PROCESSOR - 09/24/2024 10:21 AM [facility] Emergency [facility] Emergency Department [address] [place] [phone] Stefanie Kemp MD Pain and swelling of left lower extremity (Primary Dx) Discharge Disposition: Discharge to home or self care 09/22/2024 6:30 PM TITLE PROCESSOR Office Visit [facility] Care at [address] [phone] Charlene To NP Upper respiratory tract infection, unspecified type (Primary Dx); Nasal congestion 09/20/2024 4:07 PM TITLE PROCESSOR - 09/20/2024 4:49 PM [facility] Emergency [facility] Emergency Department [address] [place] [phone] Medication refill (Primary Dx) Discharge Disposition: Discharge to home or self care 09/20/2024 1:26 AM TITLE PROCESSOR - 09/20/2024 2:[address] [facility] Emergency Department [address] [place] [address] Cesar Chiang MD Viral pharyngitis (Primary Dx) Discharge Disposition: Discharge to home or self care 09/19/2024 1:39 AM TITLE PROCESSOR - 09/19/2024 2:32 AM [facility] Emergency [facility] Emergency Department [address] [place] [address] Jasbir Yañez MD Pedal edema (Primary Dx) Discharge Disposition: Discharge to home or self care 09/18/2024 6:00 PM TITLE PROCESSOR - 09/18/2024 7:[address] [facility] Emergency Department [address] [place] [address] Left before treatment completed (Primary Dx); Leg swelling Discharge Disposition: Left Against Medical Advice 09/17/2024 11:38 AM TITLE PROCESSOR - 09/17/2024 1:19 PM [facility] Emergency Department [address] [place] [phone] Chronic venous insufficiency (Primary Dx); Bilateral lower extremity edema Discharge Disposition: Discharge to home or self care 09/14/2024 12:10 AM TITLE PROCESSOR - 09/14/2024 1:49 AM [facility] Emergency Department [address] [place] [phone] Brice Sepulveda MD Bilateral lower extremity edema (Primary Dx) Discharge Disposition: Discharge to home or self care 09/14/2024 Telephone [facility] Care at [address] [phone] Lexi Garcia NP Med Refill 09/13/2024 9:20 PM TITLE PROCESSOR - 09/13/2024 9:46 PM [facility] Emergency [facility] Emergency Department [address] [place] [phone] Michael Schrader MD Weakness (Primary Dx) Discharge Disposition: Discharge to home or self care 09/13/2024 2:46 AM TITLE PROCESSOR - 09/13/2024 5:31 AM [facility] Emergency Department [address] [place] [phone] Katharine Polanco MD Chronic venous insufficiency (Primary Dx); Lower extremity edema Discharge Disposition: Discharge to home or self care 09/12/2024 9:22 PM TITLE PROCESSOR - 09/12/2024 10:59 PM TITLE PROCESSOR Emergency [facility] Emergency Department [address] [place] [address] Leg swelling (Primary Dx); Venous insufficiency; Venous stasis dermatitis Discharge Disposition: Discharge to home or self care 09/11/2024 10:35 PM TITLE PROCESSOR - 09/12/2024 3:44 AM [facility] Emergency [facility] Emergency Department [address] [place] [phone] Salena Crawley MD Lower extremity edema (Primary Dx); Cellulitis of left lower extremity Discharge Disposition: Discharge to home or self care 09/11/2024 7:00 PM TITLE PROCESSOR Office Visit [facility] Care at [address] [phone] Truman Gabriel, Symptom of leg swelling (Primary Dx) 09/10/2024 5:00 PM TITLE PROCESSOR Office Visit [facility] Care at [address] [phone] Jess Hobson NP Cellulitis of left lower extremity (Primary Dx); Left leg swelling 09/07/2024 10:55 AM [facility] - 09/07/2024 10:56 AM [facility] Emergency Department [address] [place] [address] Venous stasis dermatitis of both lower extremities (Primary Dx) Discharge Disposition: Discharge to home or self care 09/05/2024 8:08 PM TITLE PROCESSOR - 09/05/2024 10:28 PM [facility] Emergency [facility] Emergency Department [address] [place] [phone] Other chronic pain (Primary Dx); Bilateral lower extremity edema Discharge Disposition: Discharge to home or self care 09/05/2024 2:02 AM TITLE PROCESSOR - 09/05/2024 3:14 AM [facility] Emergency Department [address] [place] [address] Marek Nelson MD PhD Chronic pain of left lower extremity (Primary Dx) Discharge Disposition: Discharge to home or self care 09/03/2024 7:07 PM TITLE PROCESSOR - 09/03/2024 11:06 PM [facility] Emergency Department [address] [place] [phone] Cellulitis of left lower extremity (Primary Dx) Discharge Disposition: Discharge to home or self care 09/02/2024 8:24 AM TITLE PROCESSOR - 09/02/2024 11:59 PM [facility] Hospital [facility] [address] [place] [phone] Discharge Disposition: Discharge to home or self care 09/02/2024 3:25 AM TITLE PROCESSOR - 09/02/2024 3:41 AM [facility] Emergency Department [address] [place] [address] Rachele Guerra MD Sprain of right ankle, unspecified ligament, initial encounter (Primary Dx) Discharge Disposition: Discharge to home or self care 09/01/2024 8:06 AM TITLE PROCESSOR - 09/01/2024 9:39 AM [facility] Emergency [facility] Emergency Department [address] [place] [address] Jair Armendariz MD Sprain of right ankle, unspecified ligament, initial encounter (Primary Dx) Discharge Disposition: Discharge to home or self care 08/23/2024 9:27 PM TITLE PROCESSOR - 08/23/2024 10:03 PM [facility] Emergency Department [address] [place] [phone] Leg swelling (Primary Dx); Cellulitis of left lower extremity Discharge Disposition: Discharge to home or self care 08/23/2024 1:41 AM TITLE PROCESSOR - 08/23/2024 9:16 AM [facility] Emergency Department [address] [place] [phone] Salena Crawley MD Li, Alex, MD Schneider, Krishan Ugalde MD Leg swelling (Primary Dx); Cellulitis of left lower extremity; Failure of outpatient treatment Discharge Disposition: Discharge to home or self care 08/20/2024 11:11 PM TITLE PROCESSOR - 08/21/2024 1:30 AM [facility] Emergency [facility] Emergency Department [address] [place] [address] Dependent edema (Primary Dx) Discharge Disposition: Discharge to home or self care 08/20/2024 9:06 AM TITLE PROCESSOR - 08/20/2024 11:08 AM [facility] Emergency Department [address] [place] [address] Fei Murray MD Upper respiratory tract infection, unspecified type (Primary Dx); Peripheral edema Discharge Disposition: Discharge to home or self care 08/20/2024 2:24 AM TITLE PROCESSOR - 08/20/2024 4:35 AM [facility] Emergency Department [address] [place] [phone] Discharge Disposition: Left without being seen 08/18/2024 5:58 AM TITLE PROCESSOR - 08/18/2024 7:26 AM [facility] Emergency [facility] Emergency Department [address] [place] [phone] Lorenzo Peña MD Peripheral edema (Primary Dx) Discharge Disposition: Discharge to home or self care 08/17/2024 3:00 PM [facility] Diagnostic [facility] [address] [facility] Advanced Medicine 6th [place] [address] [place] [address] Luciano Nelson MD Encounter for examination of normal volunteer in research study 08/15/2024 12:23 AM TITLE PROCESSOR - 08/15/2024 1:52 AM [facility] Emergency [facility] Emergency Department [address] [place] [address] Malingering (Primary Dx); Swelling Discharge Disposition: Discharge to home or self care 08/12/2024 8:23 PM TITLE PROCESSOR - 08/14/2024 1:56 PM TITLE PROCESSOR Hospital Encounter [facility] [address] [place] [phone] Batsheva Portillo MD Li, Hei Jun, MD Li, Alex, MD COVID-19 (Primary Dx); Recurrent syncope; Chest pain, unspecified type; Anemia, unspecified type; Elevated AST (SGOT); Elevated ALT measurement; Nonintractable headache, unspecified chronicity pattern, unspecified headache type Discharge Disposition: Discharge to home or self care 08/11/2024 3:49 AM TITLE PROCESSOR - 08/11/2024 4:35 AM [facility] Emergency [facility] Emergency Department [address] [place] [phone] Abdiel Hawkins MD Coronavirus infection (Primary Dx); Lightheadedness Discharge Disposition: Discharge to home or self care 08/08/2024 9:58 PM TITLE PROCESSOR - 08/08/2024 11:12 PM [facility] Emergency [facility] Emergency Department [address] [place] [phone] Karlo Gatica MD COVID (Primary Dx); Dehydration; Syncope, unspecified syncope type Discharge Disposition: Discharge to home or self care 08/07/2024 [facility] Eligibility Review [facility] Community Health Worker [address] [place] [address] Darlene Zurita PA 08/06/2024 9:50 AM [facility] - 08/06/2024 12:23 PM [facility] Emergency [facility] Emergency Department [address] [place] [phone] Jassi Daniels MD Coronavirus infection (Primary Dx) Discharge Disposition: Discharge to home or self care 08/02/2024 12:46 PM TITLE PROCESSOR - 08/02/2024 1:16 PM [facility] Emergency [facility] Emergency Department [address] [place] [phone] Gee Moran MD Chronic right shoulder pain (Primary Dx) Discharge Disposition: Discharge to home or self care 08/01/2024 2:00 AM TITLE PROCESSOR - 08/01/2024 3:17 AM [facility] Emergency [facility] Emergency Department [address] [place] [phone] Chronic right shoulder pain (Primary Dx); Encounter for medication refill Discharge Disposition: Discharge to home or self care 07/29/2024 9:38 PM TITLE PROCESSOR - 07/29/2024 11:38 PM TITLE PROCESSOR Emergency [facility] Emergency Department [address] [facility] [place] [phone] Cindy Hendricks MD Injury of right rotator cuff, subsequent encounter (Primary Dx) Discharge Disposition: Discharge to home or self care 07/24/2024 1:00 PM TITLE PROCESSOR [facility] [address] [facility] 4th Floor [address] [place] [phone] Right anterior shoulder pain (Primary Dx) 07/24/2024 Documentation [facility] [address] [place] [address] [address] [place] [phone] Cherie Ramirez [facility] Social Work Services 07/19/2024 Documentation [facility] [address] [place] [address] [address] [place] [phone] Cherie Ramirez [facility] Social Work Services 06/26/2024 Orders Only [facility] [address] [facility] 6th [place] [address] [place] [phone] Michael Corona MD Encounter for examination of [...] drink = 0.6 oz pur e alcohol) [facility] Utilities Answer Date Recorded In the [...] declined 08/14/2024 How often do you attend gnosticist or uatsdin serv ices? Patient declined 08/14/2024 Do you belong to any clubs o r organizations such as gnosticist groups, unions, fraternal or athletic groups, or [...] any time in the past 12 m [facility], were you homeless or living in a intermediate (including now)? Patient declined 08/14/2024 Personal Safety Answer Date Recorded Have you ever been in or are you currently in a harmful physical or emotional relationship or is someone making you feel afraid or unsafe? Denies 09/24/2024 Sex and Gender Information Value Date Recorded Sex Assigned at Not on file Legal Sex Male 9:25 PM TITLE PROCESSOR Gender Identity Not on file Sexual Orientation Straight 11/18/2022 7: 07 PM CDT Obstetrics History Last Filed Vital Signs Vital Sign Reading Time Taken Comments Blood Pressure 123/75 09/24/2024 12:17 PM TITLE PROCESSOR Pulse 85 09/24/2024 12:17 PM TITLE PROCESSOR Temperature 36.7 C (98 F) 09/24/2024 12:17 PM TITLE PROCESSOR Respiratory Rate 16 09/24/2024 12:17 PM TITLE PROCESSOR Oxygen Saturation 100% 09/24/2024 12:17 PM TITLE PROCESSOR Inhaled Oxygen Concentration - - Weight 74.8 kg (165 lb) 09/24/2024 12:17 PM TITLE PROCESSOR Height 172.7 cm (5' 8 ) 09/24/2024 12:17 PM TITLE PROCESSOR Body Mass Index 25.09 09/24/2024 12:17 PM TITLE PROCESSOR Plan of Treatment Health Maintenance Due Date [...] A/B, COVID-19 ANTIGEN Routine 09/22/2024 5:30 PM TITLE PROCESSOR Nasal congestion INFLUENZA A/B, RSV, AND COVID-19 PCR STAT 09/20/2024 1:25 AM TITLE PROCESSOR PRO B-TYPE NATRIURETIC PEPTIDE Add-On 09/18/2024 1:35 PM TITLE PROCESSOR EGFR STAT 09/18/2024 1:35 PM TITLE PROCESSOR DIFFERENTIAL AUTO STAT 09/18/2024 1:3 5 PM TITLE PROCESSOR COMPREHENSIVE METABOLIC PANEL STAT 09/18/2024 1:35 PM TITLE PROCESSOR CBC WITH AUTO DIFFERENTIAL STAT 09/18/2024 1:35 PM TITLE PROCESSOR EGFR STAT 09/11/2024 9:10 PM TITLE PROCESSOR DIFFERENTIAL AUTO STAT 09/11/2024 9:1 0 PM TITLE PROCESSOR PRO B-TYPE NATRIURETIC PEPTIDE STAT 09/11/2024 9:10 PM TITLE PROCESSOR COMPREHENSIVE METABOLIC PANEL STAT 09/11/2024 9:10 PM TITLE PROCESSOR CBC WITH AUTO DIFFERENTIAL STAT 09/11/2024 9:10 PM TITLE PROCESSOR EGFR STAT 09/07/2024 2:59 AM TITLE PROCESSOR DIFFERENTIAL AUTO STAT 09/07/2024 2:5 9 AM TITLE PROCESSOR BASIC METABOLIC PANEL STAT 09/07/2024 2:59 AM TITLE PROCESSOR CBC WITH AUTO DIFFERENTIAL STAT 09/07/2024 2:59 AM TITLE PROCESSOR US VEIN DUPLEX LOWER EXTREMITY BILATERAL COMPLETE ED 09/03/2024 7:37 PM TITLE PROCESSOR MRI SHOULDER RIGHT WO CONTRAST Schedule Routine, Read Routine (OP Routine) 09/02/2024 9:06 AM TITLE PROCESSOR Right anterior shoulder pain XR ANKLE RIGHT 2 VIEWS ED 09/01/2024 9:33 PM TITLE PROCESSOR XR TIBIA FIBULA RIGHT2 VIEWS ED 09/01/2024 8:37 AM TITLE PROCESSOR XR ANKLE RIGHT 3 OR MORE VIEWS ED 08/31/2024 10:35 PM TITLE PROCESSOR XR FOOT RIGHT 3 OR MORE VIEWS ED 08/31/2024 10:34 PM TITLE PROCESSOR EGFR STAT 08/23/2024 2:33 AM TITLE PROCESSOR DIFFERENTIAL AUTO STAT 08/23/2024 2:3 3 AM TITLE PROCESSOR PRO B-TYPE NATRIURETIC PEPTIDE STAT 08/23/2024 2:33 AM TITLE PROCESSOR COMPREHENSIVE METABOLIC PANEL STAT 08/23/2024 2:33 AM TITLE PROCESSOR CBC WITH AUTO DIFFERENTIAL STAT 08/23/2024 2:33 AM TITLE PROCESSOR SEPSIS LACTATE WITH REFLEX Routine 08/23/2024 2:33 AM TITLE PROCESSOR BLOOD CULTURE Routine 08/23/2024 2:33 AM TITLE PROCESSOR BLOOD CULTURE Routine 08/23/2024 2:33 AM TITLE PROCESSOR ECG 12-LEAD STAT 08/23/2024 2:32 AM TITLE PROCESSOR EGFR STAT 08/21/2024 12:35 AM TITLE PROCESSOR DIFFERENTIAL AUTO STAT 08/21/2024 12: 35 AM TITLE PROCESSOR CRP (ACUTE PHASE) STAT 08/21/2024 12: 35 AM TITLE PROCESSOR ERYTHROCYTE SEDIMENTATION RATE STAT 08/21/2024 12:35 AM TITLE PROCESSOR BASIC METABOLIC PANEL STAT 08/21/2024 12:35 AM TITLE PROCESSOR CBC WITH AUTO DIFFERENTIAL STAT 08/21/2024 12:35 AM TITLE PROCESSOR STREPTOCOCCUS GROUP A PCR STAT 08/20/2024 9:19 AM TITLE PROCESSOR RESPIRATORY PATHOGEN PANEL Routine 08/20/2024 9:19 AM TITLE PROCESSOR D-DIMER, QUANTITATIVE STAT 08/15/2024 1:08 AM TITLE PROCESSOR PRO B-TYPE NATRIURETIC PEPTIDE STAT 08/14/2024 9:59 PM TITLE PROCESSOR EGFR STAT 08/14/2024 9:59 PM TITLE PROCESSOR DIFFERENTIAL AUTO STAT 08/14/2024 9:5 9 PM TITLE PROCESSOR LIPASE STAT 08/14/2024 9:59 PM TITLE PROCESSOR COMPREHENSIVE METABOLIC PANEL STAT 08/14/2024 9:59 PM TITLE PROCESSOR CBC WITH AUTO DIFFERENTIAL STAT 08/14/2024 9:59 PM TITLE PROCESSOR TRANSTHORACIC ECHO (TTE) COMPLETE W DOPPLER/CF WO CONTRAST Routine 08/14/2024 11:39 AM TITLE PROCESSOR HEPATIC FUNCTION PANEL Routine 08/13/2024 5:30 AM TITLE PROCESSOR EGFR Routine 08/13/2024 5:30 AM TITLE PROCESSOR CBC WITHOUT DIFFERENTIAL Routine 08/13/2024 5:30 AM TITLE PROCESSOR PHOSPHORUS Routine 08/13/2024 5:30 AM TITLE PROCESSOR MAGNESIUM Routine 08/13/2024 5:30 AM TITLE PROCESSOR BASIC METABOLIC PANEL Routine 08/13/2024 5:30 AM TITLE PROCESSOR FERRITIN Routine 08/13/2024 5:30 AM TITLE PROCESSOR DRUGS OF ABUSE SCREEN, URINE WITH REFLEX CONFIRMATION Routine 08/13/2024 12:15 AM TITLE PROCESSOR URINALYSIS AND REFLEX TO MICROSCOPIC AND CULTURE STAT 08/13/2024 12:[address] CHEST PE W CONTRAST ED 08/12/2024 11:48 PM TITLE PROCESSOR US VEIN DUPLEX LOWER EXTREMITY BILATERAL COMPLETE ED 08/12/2024 11:46 PM TITLE PROCESSOR US RUQ ED 08/12/2024 11:38 PM TITLE PROCESSOR ADD ON LAB TEST Add-On 08/12/2024 10:[address] HEAD AND CERVICAL SPINE WO CONTRAST ED 08/12/2024 10:20 PM TITLE PROCESSOR D-DIMER, QUANTITATIVE STAT 08/12/2024 10:05 PM TITLE PROCESSOR PROTIME-INR STAT 08/12/2024 10:05 PM TITLE PROCESSOR ADD ON LAB TEST Add-On 08/12/2024 9:53 PM TITLE PROCESSOR ADD ON LAB TEST Add-On 08/12/2024 9:53 PM TITLE PROCESSOR ADD ON LAB TEST Add-On 08/12/2024 9:53 PM TITLE PROCESSOR ADD ON LAB TEST Add-On 08/12/2024 9:53 PM TITLE PROCESSOR ADD ON LAB TEST Add-On 08/12/2024 9:53 PM TITLE PROCESSOR ADD ON LAB TEST Add-On 08/12/2024 9:53 PM TITLE PROCESSOR ADD ON LAB TEST Add-On 08/12/2024 9:53 PM TITLE PROCESSOR ETHANOL STAT 08/12/2024 9:52 PM TITLE PROCESSOR TROPONIN T HIGH-SENSITIVITY 2-HOUR Timed 08/12/2024 9:52 PM TITLE PROCESSOR ACETAMINOPHEN LEVEL STAT 08/12/2024 9 :13 PM TITLE PROCESSOR HEPATITIS PANEL, ACUTE STAT 08/12/2024 9:13 PM TITLE PROCESSOR PRO B-TYPE NATRIURETIC PEPTIDE STAT 08/12/2024 8:08 PM TITLE PROCESSOR THYROID FUNCTION CASCADE STAT 08/12/2024 8:08 PM TITLE PROCESSOR FOLATE STAT 08/12/2024 8:08 PM TITLE PROCESSOR IRON PROFILE W/ IBC STAT 08/12/2024 8 :08 PM TITLE PROCESSOR VITAMIN B12 STAT 08/12/2024 8:08 PM TITLE PROCESSOR MAGNESIUM STAT 08/12/2024 8:08 PM TITLE PROCESSOR PHOSPHORUS STAT 08/12/2024 8:08 PM TITLE PROCESSOR EGFR STAT 08/12/2024 8:08 PM TITLE PROCESSOR DIFFERENTIAL AUTO STAT 08/12/2024 8:0 8 PM TITLE PROCESSOR TROPONIN T HIGH-SENSITIVITY SERIES (BASELINE, 2HR, 4HR, 6HR) STAT 08/12/2024 8:08 PM TITLE PROCESSOR COMPREHENSIVE METABOLIC PANEL STAT 08/12/2024 8:08 PM TITLE PROCESSOR CBC WITH AUTO DIFFERENTIAL STAT 08/12/2024 8:08 PM TITLE PROCESSOR XR CHEST PA LATERAL 2 VIEWS ED 08/12/2024 7:27 PM TITLE PROCESSOR ECG 12-LEAD STAT 08/12/2024 6:48 PM TITLE PROCESSOR XR CHEST PA LATERAL 2 VIEWS ED 08/11/2024 2:02 AM TITLE PROCESSOR ECG 12-LEAD STAT 08/11/2024 1:43 AM TITLE PROCESSOR XR CHEST PA LATERAL 2 VIEWS ED 08/08/2024 10:[address] HEAD WO CONTRAST ED 08/08/2024 1 0:34 PM TITLE PROCESSOR ECG 12-LEAD STAT 08/08/2024 8:56 PM TITLE PROCESSOR RESPIRATORY PATHOGEN PANEL Routine 08/06/2024 9:59 AM TITLE PROCESSOR from Last 3 Months Results * POC Influenza A/B, COVID-19 antigen (09/22/2024 5:30 PM TITLE PROCESSOR) Influenza A Ag, POC Negative Negative [facility] Influenza B Ag, POC Negative Negative [facility] COVID-19 Ag POC Presumptive Negative Presumptive Negative, Invalid [facility] Nasopharyngeal 09/22/2024 5: 30 PM TITLE PROCESSOR Charlene To CONTRACTING SPECIALIST POINT OF CARE TEST ORDFlorencio PRITCHARD Final Result [facility] [address] [place] [address] * Influenza A/B, RSV, and COVID-19 PCR Nasopharyngeal (09/20/2024 1:25 AM TITLE PROCESSOR) COVID-19 RNA Negative Negative Influenza A RNA Negative Negative [facility] (JENNIFER) Influenza B RNA Negative Negative [facility] ([facility]ENN[facility]) RSV RNA Negative Negative [facility] (JENNIFER) Comment: Interpretive data: Testing performed by [facility]. This test is performed using the [employer] Xpert Xpress CoV-2/Flu/RSV plus assay. This is a multiplex, real- time reverse transcriptase PCR assay intended for the qualitative detection of nucleic acid from SARS-CoV-2, influenza A, influenza B, and respiratory syncytial virus. This assay has been cleared by the [place] Food and Drug administration. The performance characteristics have been verified by the [facility]. Results must be considered in the clinical context, and a negative result does not rule out infection. Interpretive Data last revised 2023 Nasopharyngeal 09/20/2024 1: 25 AM TITLE PROCESSOR 09/20/2024 1:29 AM TITLE PROCESSOR Narrative JADA CHAVIS (JENNIFER) - 09/20/2024 2:07 AM TITLE PROCESSOR Is the Patient experiencing symptoms consistent with COVID?->Yes Cesar Chiang MD LAB MICROBIOLOGY - GENERAL ORD ERABLES Final Result JADA CHAVIS ([place]) 1 [facility] [place] [address] * eGFR (09/18/2024 1:35 PM TITLE PROCESSOR) eGFR >90 >=60 mL/min/1. 73 m2 Comment: [...] last reviewed 2021. Blood 09/18/2024 1:35 PM TITLE PROCESSOR 09/18/2024 1:38 PM TITLE PROCESSOR us Megan Dill MD LAB BLOOD ORDERABLE S Final Result Performing Organization Address City/[facility]/ZIP Co de Phone Number JADA CHAVIS ([place]) 1 [facility] [place] [address] * Differential, auto (09/18/2024 1:35 PM TITLE PROCESSOR) Neutrophil abs 4.8 1.5 - 6.5 K/cumm [...] revised on 2017. Blood 09/18/2024 1:35 PM TITLE PROCESSOR 09/18/2024 1:38 PM TITLE PROCESSOR us Megan Dill MD LAB BLOOD ORDERABLE S Final Result [facility] [place]) 1 [facility] Department of Laboratories [place], [place] [id number] * Pro B-type natriuretic peptide (09/18/2024 1:35 PM TITLE PROCESSOR) NT-proBNP <36 <=300 pg/mL Comment: Interpretive Comments: [...] Revised Date: 2018. Blood 09/18/2024 1:35 PM TITLE PROCESSOR 09/18/2024 6:28 PM TITLE PROCESSOR us Jossue Cox NP LAB BLOOD ORDERABLES Final Result [facility] ([place]ENN[place]ER) 1 [facility] [place] [address] * CBC with auto differential (09/18/2024 1:35 PM TITLE PROCESSOR) WBC 6.6 3.8 - 9.9 K/cumm Hgb [...] [facility] ([place]ENN[place]) Blood 09/18/2024 1:35 PM TITLE PROCESSOR 09/18/2024 1:38 PM TITLE PROCESSOR us Megan Dill MD LAB BLOOD ORDERABLE S Final Result JADA CHAVIS (JENNIFER) 1 [facility] [place] [address] * Comprehensive metabolic panel (09/18/2024 1:35 PM TITLE PROCESSOR) Sodium 140 135 - 145 mmol/L Potassium, [...] Hemolyzed S pecimen Blood 09/18/2024 1:35 PM TITLE PROCESSOR 09/18/2024 1:38 PM TITLE PROCESSOR us Megan Dill MD LAB BLOOD ORDERABLE S Final Result [facility] ([place]ENN[place]) 1 [facility] Department [place] [address] * eGFR (09/11/2024 9:10 PM TITLE PROCESSOR) eGFR >90 >=60 mL/min/1. 73 m2 Comment: [...] last reviewed 2021. Blood 09/11/2024 9:10 PM TITLE PROCESSOR 09/11/2024 9:30 PM TITLE PROCESSOR us Salena Crawley MD LAB BLOOD ORDERABLES Fin al Result [facility] [address] Department [place] [address] * Differential, auto (09/11/2024 9:10 PM TITLE PROCESSOR) [facility] Neutrophil abs 3.8 1.5 - 6.5 K/cumm Imm gran abs 0.0 0.0 - 0.1 K/cumm [facility] Lymphocyte abs 1.1 0.8 - 3.3 K/cumm [facility] Monocyte abs 0.5 0.2 - 0.8 K/cumm [facility] Eosinophil abs 0.2 0.0 - 0.5 K/cumm [facility] Basophil abs 0.0 0.0 - 0.1 K/cumm [facility] Neutrophil pct 67.2 % [facility] Comment: Interpretive Data Percent cell count reference ranges are not reported, since discordance with absolute values may lead to misinterpretation of CBC data. Current Interpretive Data was last revised on 2017. Imm gran pct 0.4 % [facility] Comment: Interpretive Data Percent cell count reference ranges are not reported, since discordance with absolute values may lead to misinterpretation of CBC data. Current Interpretive Data was last revised on 2017. Lymphocyte pct 20.1 % [facility] Comment: Interpretive Data Percent cell count reference ranges are not reported, since discordance with absolute values may lead to misinterpretation of CBC data. Current Interpretive Data was last revised on 2017. Monocyte pct 8.6 % [facility] Comment: Interpretive Data Percent cell count reference ranges are not reported, since discordance with absolute values may lead to misinterpretation of CBC data. Current Interpretive Data was last revised on 2017. Eosinophil pct 3.2 % [facility] Comment: Interpretive Data Percent cell count reference ranges are not reported, since discordance with absolute values may lead to misinterpretation of CBC data. Current Interpretive Data was last revised on 2017. Basophil pct 0.5 % [facility] Comment: Interpretive Data Percent cell count reference ranges are not reported, since discordance with absolute values may lead to misinterpretation of CBC data. Current Interpretive Data was last revised on 2017. Blood 09/11/2024 9:10 PM TITLE PROCESSOR 09/11/2024 9:30 PM TITLE PROCESSOR us Salena Crawley MD LAB BLOOD ORDERABLES Fin al Result [facility] [address] Department [place] [address] * Pro B-type natriuretic peptide (09/11/2024 9:10 PM TITLE PROCESSOR) NT-proBNP <36 <=300 pg/mL Comment: Interpretive Comments: [...] Revised Date: 2018. Blood 09/11/2024 9:10 PM TITLE PROCESSOR 09/11/2024 9:30 PM TITLE PROCESSOR Salena Crawley MD LAB BLOOD ORDERABLES Fin al Result [facility] [address] Department [place] [address] * CBC with auto differential (09/11/2024 9:10 PM TITLE PROCESSOR) [facility] WBC 5.7 3.8 - 9.9 K/cumm Hgb 13.1 13.0 - 17.5 g/dL [facility] Hct 40.0 38.9 - 50.3 % [facility] Plt 184 150 - 400 K/cumm [facility] MPV 10.6 9.1 - 12.3 fL [facility] RBC 4.43 4.30 - 5.80 M/cumm [facility] MCV 90.3 81.3 - 96.4 fL [facility] MCH 29.6 27.1 - 33.3 pg [facility] MCHC 32.8 32.3 - 35.7 g/dL [facility] RDW CV 12.7 11.1 - 14.9 % [facility] RDW SD 41.7 35.7 - 48.1 fL [facility] NRBC abs 0.00 0.00 - 0.01 K/cumm [facility] Blood 09/11/2024 9:10 PM TITLE PROCESSOR 09/11/2024 9:30 PM TITLE PROCESSOR us Salena Crawley MD LAB BLOOD ORDERABLES Fin al Result [facility] [address] Department [place] [address] * (ABNORMAL) Comprehensive metabolic panel (09/11/2024 9:10 PM TITLE PROCESSOR) Sodium 142 135 - 145 mmol/L Potassium, pl 4.3 3.3 - 4.9 mmol/L [facility] Chloride 101 97 - 110 mmol/L [facility] CO2 28 22 - 32 mmol/L [facility] Anion gap 13 2 - 15 mmol/L [facility] BUN 28(H) 6 - 25 mg/dL [facility] Creatinine 0.89 0.80 - 1.30 mg/dL [facility] Glucose 113 70 - 199 mg/dL [facility] Comment: Interpretive Data Fasting glucose >/= 126 [...] 2022. Calcium 9.2 8.5 - 10.3 mg/dL [facility] Bilirubin, total 0.8 0.1 - 1.2 mg/dL [facility] Protein, pl 6.7 6.5 - 8.5 g/dL [facility] Albumin 4.0 3.5 - 5.0 g/dL [facility] Alk phos 79 40 - 130 Units/L [facility] ALT 62(H) 7 - 55 Units/L [facility] AST 40 10 - 50 Units/L [facility] Comment:Slightly Hemolyzed S pecimen Blood 09/11/2024 9:10 PM TITLE PROCESSOR 09/11/2024 9:30 PM TITLE PROCESSOR us Salena Crawley MD LAB BLOOD ORDERABLES Fin al Result [facility] [address] Department of [employer] [place], [place] [id number] * eGFR (09/07/2024 2:59 AM TITLE PROCESSOR) eGFR >90 >=60 mL/min/1. 73 m2 Comment: [...] last reviewed 2021. Blood 09/07/2024 2:59 AM TITLE PROCESSOR 09/07/2024 3:02 AM TITLE PROCESSOR us Jair Armendariz MD LAB BLOOD ORDERABLES Final Result [facility] [address] [facility] [place] [address] * Differential, auto (09/07/2024 2:59 AM TITLE PROCESSOR) Neutrophil abs 3.0 1.5 - 6.5 K/cumm Imm gran abs 0.0 0.0 - 0.1 K/cumm [facility] Lymphocyte abs 2.1 0.8 - 3.3 K/cumm [facility] Monocyte abs 0.4 0.2 - 0.8 K/cumm [facility] Eosinophil abs 0.2 0.0 - 0.5 K/cumm [facility] Basophil abs 0.0 0.0 - 0.1 K/cumm [facility] Neutrophil pct 51.2 % [facility] Comment: Interpretive Data Percent cell count reference ranges are not reported, since discordance with absolute values may lead to misinterpretation of CBC data. Current Interpretive Data was last revised on 2017. Imm gran pct 0.3 % [facility] Comment: Interpretive Data Percent cell count reference ranges are not reported, since discordance with absolute values may lead to misinterpretation of CBC data. Current Interpretive Data was last revised on 2017. Lymphocyte pct 36.9 % [facility] Comment: Interpretive Data Percent cell count reference ranges are not reported, since discordance with absolute values may lead to misinterpretation of CBC data. Current Interpretive Data was last revised on 2017. Monocyte pct 6.9 % [facility] Comment: Interpretive Data Percent cell count reference ranges are not reported, since discordance with absolute values may lead to misinterpretation of CBC data. Current Interpretive Data was last revised on 2017. Eosinophil pct 4.0 % [facility] Comment: Interpretive Data Percent cell count reference ranges are not reported, since discordance with absolute values may lead to misinterpretation of CBC data. Current Interpretive Data was last revised on 2017. Basophil pct 0.7 % [facility] Comment: Interpretive Data Percent cell count reference ranges are not reported, since discordance with absolute values may lead to misinterpretation of CBC data. Current Interpretive Data was last revised on 2017. Blood 09/07/2024 2:59 AM TITLE PROCESSOR 09/07/2024 3:02 AM TITLE PROCESSOR Jair Armendariz MD LAB BLOOD ORDERABLES Final Result Performing Organization Address [facility]/ZIP Co de Phone Number [address] [place] [address] * (ABNORMAL) CBC with auto differential (09/07/2024 2:59 AM TITLE PROCESSOR) Pathologist [facility] WBC 5.8 3.8 - 9.9 K/cumm Hgb 12.3(L) 13.0 - 17.5 g/dL [facility] Hct 37.2(L) 38.9 - 50.3 % [facility] Plt 163 150 - 400 K/cumm [facility] MPV 10.4 9.1 - 12.3 fL [facility] RBC 4.17(L) 4.30 - 5.80 M/cumm [facility] MCV 89.2 81.3 - 96.4 fL [facility] MCH 29.5 27.1 - 33.3 pg [facility] MCHC 33.1 32.3 - 35.7 g/dL [facility] RDW CV 12.6 11.1 - 14.9 % [facility] RDW SD 41.1 35.7 - 48.1 fL [facility] NRBC abs 0.00 0.00 - 0.01 K/cumm [facility] Blood 09/07/2024 2:59 AM TITLE PROCESSOR 09/07/2024 3:02 AM TITLE PROCESSOR Jair Armendariz MD LAB BLOOD ORDERABLES Final Result [address] [place] [address] * Basic metabolic panel (09/07/2024 2:59 AM TITLE PROCESSOR) Pathologist [facility] Sodium 143 135 - 145 mmol/L Potassium, pl 4.4 3.3 - 4.9 mmol/L [facility] Chloride 109 97 - 110 mmol/L [facility] CO2 25 22 - 32 mmol/L [facility] Anion gap 9 2 - 15 mmol/L [facility] BUN 24 6 - 25 mg/dL [facility] Creatinine 0.87 0.80 - 1.30 mg/dL [facility] Glucose 86 70 - 199 mg/dL [facility] Comment: Interpretive Data Fasting glucose >/= [...] 2022. Calcium 9.1 8.5 - 10.3 mg/dL [facility] Blood 09/07/2024 2:59 AM TITLE PROCESSOR 09/07/2024 3:02 AM TITLE PROCESSOR us Jair Armendariz MD LAB BLOOD ORDERABLES Final Result Performing Organization Address City/State/[facility] Co de Phone Number [facility] [address] [facility] [place] [address] * US Vein Duplex Lower Extremity Bilateral Complete (09/03/2024 7:37 PM TITLE PROCESSOR) Anatomical Region Laterality Modality Vascular Bilateral Ultrasound 09/04/2024 2:26 PM TITLE PROCESSOR Impressions 09/04/2024 2:26 PM TITLE PROCESSOR 1. No evidence of DVT in the lower extremities bilaterally. 2. Evidence of pulsatile venous flow. This may suggest increased intravascular volume or right-sided valvular heart disease. Clinical correlation suggested. 3. No change when compared to previous studies. Electronically signed by: Lv Smatr M.D. Narrative 09/04/2024 2:26 PM TITLE PROCESSOR Lower Extremity Vein Duplex Bilateral DATE: 09/03/2024 [...] compared to previous studies. Electronically signed by: vL Smart M.D. us Ofelia Stanley MD IMG US PROCEDURES Final Re sult * MRI Shoulder Right WO Contrast (09/02/2024 9:06 AM TITLE PROCESSOR) Anatomical Region Laterality Modality Upper Extremities Right Magnetic Reson ance 09/02/2024 11:0 8 AM TITLE PROCESSOR Impressions 09/02/2024 12:42 PM TITLE PROCESSOR 1. Minimal right rotator cuff tendinopathy without [...] Gudelia Berger MD Narrative 09/02/2024 12:42 PM TITLE PROCESSOR EXAMINATION: 1. MRI right shoulder without contrast [...] Ankle Right 2 Views (09/01/2024 9:33 PM TITLE PROCESSOR) Anatomical Region Laterality Modality Lower Extremities, Ankle Right Compute d Radiography 09/02/2024 8:13 AM TITLE PROCESSOR Impressions 09/02/2024 8:13 AM TITLE PROCESSOR There is mild swelling about the right ankle. There is a fracture of the base of 5th metacarpal, similar to prior. No additional fractures. The joints are normal. Electronically signed by: Brice Mantilla M.D. Narrative 09/02/2024 8:13 AM TITLE PROCESSOR EXAMINATION: XR ANKLE RIGHT 2 VIEWS HISTORY: [...] Fibula Right 2 views (09/01/2024 8:37 AM TITLE PROCESSOR) Anatomical Region Laterality Modality Lower Extremities, Lower Leg Right Com puted Radiography 09/01/2024 8:45 AM TITLE PROCESSOR Impressions 09/01/2024 8:45 AM TITLE PROCESSOR No acute fracture of the tibia or fibula. Alignment is normal. Electronically signed by: Greg Joy M.D. Narrative 09/01/2024 8:45 AM TITLE PROCESSOR EXAMINATION: XR TIBIA FIBULA RIGHT2 VIEWS HISTORY: [...] 3 or More Views (08/31/2024 10:35 PM TITLE PROCESSOR) Anatomical Region Laterality Modality Lower Extremities, Ankle Right Compute d Radiography 09/01/2024 11:1 6 AM TITLE PROCESSOR Impressions 09/01/2024 11:16 AM TITLE PROCESSOR Comparison is made to a prior study [...] Ness Liz M.D. Narrative 09/01/2024 11:16 AM TITLE PROCESSOR EXAMINATION: XR ANKLE RIGHT 3 OR MORE [...] 3 or More Views (08/31/2024 10:34 PM TITLE PROCESSOR) Anatomical Region Laterality Modality Lower Extremities, Foot Right Computed Radiography 09/01/2024 11:1 6 AM TITLE PROCESSOR Impressions 09/01/2024 11:16 AM TITLE PROCESSOR Comparison is made to a prior study [...] Ness Liz M.D. Narrative 09/01/2024 11:16 AM TITLE PROCESSOR EXAMINATION: XR ANKLE RIGHT 3 OR MORE [...] Sepsis Lactate w/ Reflex (08/23/2024 2:33 AM TITLE PROCESSOR) Pathologist [facility] Sepsis Lactate 0.7 0.7 - 2.0 mmol/L Blood 08/23/2024 2:33 AM TITLE PROCESSOR 08/23/2024 2:46 AM TITLE PROCESSOR Salena Crawley MD LAB BLOOD ORDERABLES Fin al Result [facility] [address] Department [place] [address] * eGFR (08/23/2024 2:33 AM TITLE PROCESSOR) [facility] eGFR >90 >=60 mL/min/1. 73 m2 Comment: [...] last reviewed 2021. Blood 08/23/2024 2:33 AM TITLE PROCESSOR 08/23/2024 3:24 AM TITLE PROCESSOR us Salena Crawley MD LAB BLOOD ORDERABLES Fin al Result [facility] [address] Department [place] [address] * Differential, auto (08/23/2024 2:33 AM TITLE PROCESSOR) Neutrophil abs 3.1 1.5 - 6.5 K/cumm Imm gran abs 0.0 0.0 - 0.1 K/cumm [facility] Lymphocyte abs 2.0 0.8 - 3.3 K/cumm [facility] Monocyte abs 0.5 0.2 - 0.8 K/cumm [facility] Eosinophil abs 0.2 0.0 - 0.5 K/cumm [facility] Basophil abs 0.1 0.0 - 0.1 K/cumm [facility] Neutrophil pct 53.2 % [facility] Comment: Interpretive Data Percent cell count reference ranges are not reported, since discordance with absolute values may lead to misinterpretation of CBC data. Current Interpretive Data was last revised on 2017. Imm gran pct 0.2 % [facility] Comment: Interpretive Data Percent cell count reference ranges are not reported, since discordance with absolute values may lead to misinterpretation of CBC data. Current Interpretive Data was last revised on 2017. Lymphocyte pct 34.0 % [facility] Comment: Interpretive Data Percent cell count reference ranges are not reported, since discordance with absolute values may lead to misinterpretation of CBC data. Current Interpretive Data was last revised on 2017. Monocyte pct 7.8 % [facility] Comment: Interpretive Data Percent cell count reference ranges are not reported, since discordance with absolute values may lead to misinterpretation of CBC data. Current Interpretive Data was last revised on 2017. Eosinophil pct 3.8 % [facility] Comment: Interpretive Data Percent cell count reference ranges are not reported, since discordance with absolute values may lead to misinterpretation of CBC data. Current Interpretive Data was last revised on 2017. Basophil pct 1.0 % [facility] Comment: Interpretive Data Percent cell count reference ranges are not reported, since discordance with absolute values may lead to misinterpretation of CBC data. Current Interpretive Data was last revised on 2017. Blood 08/23/2024 2:33 AM TITLE PROCESSOR 08/23/2024 3:24 AM TITLE PROCESSOR us Salena Crawley MD LAB BLOOD ORDERABLES Fin al Result [facility] [address] Department [place] [address] * Pro B-type natriuretic peptide (08/23/2024 2:33 AM TITLE PROCESSOR) NT-proBNP <36 <=300 pg/mL Comment: Interpretive Comments: [...] Revised Date: 2018. Blood 08/23/2024 2:33 AM TITLE PROCESSOR 08/23/2024 3:24 AM TITLE PROCESSOR Salena Crawley MD LAB BLOOD ORDERABLES [facility] al Result [facility] [address] Department [place] [address] * (ABNORMAL) CBC with auto differential (08/23/2024 2:33 AM TITLE PROCESSOR) WBC 5.8 3.8 - 9.9 K/cumm Hgb 12.9(L) 13.0 - 17.5 g/dL [facility] Hct 39.2 38.9 - 50.3 % [facility] Plt 205 150 - 400 K/cumm [facility] MPV 10.8 9.1 - 12.3 fL [facility] RBC 4.39 4.30 - 5.80 M/cumm [facility] MCV 89.3 81.3 - 96.4 fL [facility] MCH 29.4 27.1 - 33.3 pg [facility] MCHC 32.9 32.3 - 35.7 g/dL [facility] RDW CV 12.8 11.1 - 14.9 % [facility] RDW SD 41.8 35.7 - 48.1 fL [facility] NRBC abs 0.00 0.00 - 0.01 K/cumm [facility] Blood 08/23/2024 2:33 AM TITLE PROCESSOR 08/23/2024 3:24 AM TITLE PROCESSOR Salena Crawley MD LAB BLOOD ORDERABLES Fin al Result Performing Organization Address [facility]/ZIP Co de Phone Number [facility] [address] [place] [address] * Blood culture Blood (08/23/2024 2:33 AM TITLE PROCESSOR) Report Final Report: No growth Blood 08/23/2024 2:33 AM TITLE PROCESSOR 08/23/2024 2:47 AM TITLE PROCESSOR Narrative [facility] - 08/28/2024 7:01 AM TITLE PROCESSOR From a different site than #1. Collection->Peripheral [...] organism identification may be performed using the [employer] Blood Culture Identification panel. This assay detects microbial DNA in a blood culture broth. This assay has been cleared by the [place] Food and Drug Administration and its performance characteristics have been verified by the [facility]. Interpretive data was last revised on September 03, 2022. Salena Crawley MD LAB MICROBIOLOGY - GENER AL ORDERABLES Final Result Performing Organization Address City/[facility]/ZIP Co de Phone Number [facility] [address] [place] [address] * Blood culture Blood (08/23/2024 2:33 AM TITLE PROCESSOR) Report Final Report: No growth Blood 08/23/2024 2:33 AM TITLE PROCESSOR 08/23/2024 2:48 AM TITLE PROCESSOR Narrative [facility] - 08/28/2024 7:01 AM TITLE PROCESSOR Collection->Peripheral Interpretive Data 1. Blood cultures are incubated and monitored continuously for 5 days (120 hours). The first negative report is issued within 24 hours of receipt in the laboratory. 2. All positive cultures are resulted and called to physicians/care providers as soon as they are detected. 3. A rapid molecular test for organism identification may be performed using the [employer] Blood Culture Identification panel. This assay detects microbial DNA in a blood culture broth. This assay has been cleared by the [place] Food and Drug Administration and its performance characteristics have been verified by the [facility]. Interpretive data was last revised on September 03, 2022. us Salena Crawley MD LAB MICROBIOLOGY - GENER AL ORDERABLES Final Result [facility] [address] Department [place] [address] * (ABNORMAL) Comprehensive metabolic panel (08/23/2024 2:33 AM TITLE PROCESSOR) Sodium 140 135 - 145 mmol/L Potassium, pl 3.9 3.3 - 4.9 mmol/L [facility] Chloride 104 97 - 110 mmol/L [facility] CO2 25 22 - 32 mmol/L [facility] Anion gap 11 2 - 15 mmol/L [facility] BUN 24 6 - 25 mg/dL [facility] Creatinine 0.82 0.80 - 1.30 mg/dL [facility] Glucose 83 70 - 199 mg/dL [facility] Comment: Interpretive Data Fasting glucose >/= 126 [...] 2022. Calcium 9.3 8.5 - 10.3 mg/dL [facility] Bilirubin, total 0.6 0.1 - 1.2 mg/dL [facility] Protein, pl 6.9 6.5 - 8.5 g/dL [facility] Albumin 4.0 3.5 - 5.0 g/dL [facility] Alk phos 70 40 - 130 Units/L [facility] ALT 65(H) 7 - 55 Units/L [facility] AST 30 10 - 50 Units/L [facility] Comment:Slightly Hemolyzed S pecimen Blood 08/23/2024 2:33 AM TITLE PROCESSOR 08/23/2024 3:24 AM TITLE PROCESSOR Salena Crawley MD LAB BLOOD ORDERABLES Fin al Result Performing Organization Address [facility] Co de Phone Number [facility] [address] Department [place] [address] * ECG 12 lead (08/23/2024 2:32 AM TITLE PROCESSOR) 08/23/2024 2:32 AM TITLE PROCESSOR Narrative [facility] - 08/24/2024 4:38 PM TITLE PROCESSOR Vent Rate: 64 bpm RR Interval: 935 msec RI Interval: 174 msec QRS Duration: 109 msec QT Interval: 409 msec QTC Interval: 418 msec P-R-T [place]: 68 - 81 - 41 degrees IMPRESSION: SINUS RHYTHM NORMAL ECG Electronically Signed By: Andrea Moralez MD [facility] Salena Crawley MD ECG ORDERABLES Final Re sult Performing Organization Address [facility] Co de Phone Number [facility] [employer] [facility] * eGFR (08/21/2024 12:35 AM TITLE PROCESSOR) eGFR >90 >=60 mL/min/1. 73 m2 Comment: [...] reviewed 2021. Blood 08/21/2024 12:3 5 AM TITLE PROCESSOR 08/21/2024 12:40 AM TITLE PROCESSOR us Magalis MARQUES LAB BLOOD ORDERABLE S Final Result [address] [place] [address] * Differential, auto (08/21/2024 12:35 AM TITLE PROCESSOR) Neutrophil abs 3.7 1.5 - 6.5 K/cumm Imm gran abs 0.0 0.0 - 0.1 K/cumm [facility] Lymphocyte abs 2.2 0.8 - 3.3 K/cumm [facility] Monocyte abs 0.6 0.2 - 0.8 K/cumm [facility] Eosinophil abs 0.3 0.0 - 0.5 K/cumm [facility] Basophil abs 0.1 0.0 - 0.1 K/cumm [facility] Neutrophil pct 54.1 % [facility] Comment: Interpretive Data Percent cell count reference ranges are not reported, since discordance with absolute values may lead to misinterpretation of CBC data. Current Interpretive Data was last revised on 2017. Imm gran pct 0.1 % [facility] Comment: Interpretive Data Percent cell count reference ranges are not reported, since discordance with absolute values may lead to misinterpretation of CBC data. Current Interpretive Data was last revised on 2017. Lymphocyte pct 32.5 % [facility] Comment: Interpretive Data Percent cell count reference ranges are not reported, since discordance with absolute values may lead to misinterpretation of CBC data. Current Interpretive Data was last revised on 2017. Monocyte pct 8.3 % [facility] Comment: Interpretive Data Percent cell count reference ranges are not reported, since discordance with absolute values may lead to misinterpretation of CBC data. Current Interpretive Data was last revised on 2017. Eosinophil pct 4.3 % [facility] Comment: Interpretive Data Percent cell count reference ranges are not reported, since discordance with absolute values may lead to misinterpretation of CBC data. Current Interpretive Data was last revised on 2017. Basophil pct 0.7 % [facility] Comment: Interpretive Data Percent cell count reference ranges are not reported, since discordance with absolute values may lead to misinterpretation of CBC data. Current Interpretive Data was last revised on 2017. Blood 08/21/2024 12:3 5 AM TITLE PROCESSOR 08/21/2024 12:40 AM TITLE PROCESSOR us Magalis MARQUES LAB BLOOD ORDERABLE S Final Result [facility] [address] [facility] [place] [address] * (ABNORMAL) CBC with auto differential (08/21/2024 12:35 AM TITLE PROCESSOR) WBC 6.9 3.8 - 9.9 K/cumm Hgb 12.1(L) 13.0 - 17.5 g/dL [facility] Hct 36.8(L) 38.9 - 50.3 % [facility] Plt 200 150 - 400 K/cumm [facility] MPV 10.1 9.1 - 12.3 fL [facility] RBC 4.14(L) 4.30 - 5.80 M/cumm [facility] MCV 88.9 81.3 - 96.4 fL [facility] MCH 29.2 27.1 - 33.3 pg [facility] MCHC 32.9 32.3 - 35.7 g/dL [facility] RDW CV 12.8 11.1 - 14.9 % [facility] RDW SD 41.5 35.7 - 48.1 fL [facility] NRBC abs 0.00 0.00 - 0.01 K/cumm [facility] Blood 08/21/2024 12:3 5 AM TITLE PROCESSOR 08/21/2024 12:40 AM TITLE PROCESSOR Magalis Alcantar Willy [place] LAB BLOOD ORDERABLE S Final Result [address] Laboratories [place], [place] [id number] * Erythrocyte sedimentation rate (08/21/2024 12:35 AM TITLE PROCESSOR) Erythrocyte sedimentation rate 5 1 - 15 mm/hr [facility] Blood 08/21/2024 12:3 5 AM TITLE PROCESSOR 08/21/2024 12:40 AM TITLE PROCESSOR Magalis Rondonguero Aguilera [place] LAB BLOOD ORDERABLE S Final Result Performing Organization Address City/[facility]/ZIP Co de Phone Number [address] [address] * CRP (acute phase) (08/21/2024 12:35 AM TITLE PROCESSOR) CRP <3.5 <=10.0 mg/L Blood 08/21/2024 12:3 5 AM TITLE PROCESSOR 08/21/2024 12:40 AM TITLE PROCESSOR Magalis Aguilera [place] LAB BLOOD ORDERABLE S Final Result [address] [id number] * (ABNORMAL) Basic metabolic panel (08/21/2024 12:35 AM TITLE PROCESSOR) Sodium 140 135 - 145 mmol/L Potassium, pl 4.2 3.3 - 4.9 mmol/L [facility] Chloride 104 97 - 110 mmol/L [facility] CO2 26 22 - 32 mmol/L [facility] Anion gap 10 2 - 15 mmol/L [facility] BUN 34(H) 6 - 25 mg/dL [facility] Creatinine 0.91 0.80 - 1.30 mg/dL [facility] Glucose 96 70 - 199 mg/dL [facility] Comment: Interpretive Data Fasting glucose >/= [...] 2022. Calcium 9.1 8.5 - 10.3 mg/dL [facility] Blood 08/21/2024 12:3 5 AM TITLE PROCESSOR 08/21/2024 12:40 AM TITLE PROCESSOR Magalis MARQUES LAB BLOOD ORDERABLE S Final Result [address] [place] [address] * Streptococcus Group A PCR Throat (08/20/2024 9:19 AM TITLE PROCESSOR) [facility] Strep A DNA Not Detected Not Detected Comment: This test is performed using the Vot[employer] Xpert Group A Streptococcal Assay. This is [...] the performing laboratory. Throat 08/20/2024 9:19 AM TITLE PROCESSOR 08/20/2024 9:22 AM TITLE PROCESSOR Fei Murray MD LAB MICROBIOLOGY - GENERAL ORDERABLES Final Result [facility] [address] Department of Laboratories [place], [place] [id number] * Respiratory pathogen panel Nasopharyngeal (08/20/2024 9:19 AM TITLE PROCESSOR) Pathologist [facility] Influenza A RNA Not Detected Not Detected Influenza B RNA Not Detected Not Detected [facility] RSV RNA Not Detected Not Detected [facility] COVID-19 RNA Not Detected Not Detected [facility] Coronavirus 229E RNA Not Detected Not Detected [facility] Coronavirus HKU1 RNA Not Detected Not Detected [facility] Coronavirus NL63 RNA Not Detected Not Detected [facility] Coronavirus OC43 RNA Not Detected Not Detected [facility] Adenovirus DNA Not Detected Not Detected [facility] Metapneumovirus RNA Not Detected Not Detected [facility] Rhinovirus/Enterov irus RNA Not Detected Not Detected [facility] Parainfluenza 1 RNA Not Detected Not Detected [facility] Parainfluenza 2 RNA Not Detected Not Detected [facility] Parainfluenza 3 RNA Not Detected Not Detected [facility] Parainfluenza 4 RNA Not Detected Not Detected [facility] B. pertussis DNA Not Detected Not Detected [facility] B. parapertussis DNA Not Detected Not Detected [facility] C. pneumoniae DNA Not Detected Not Detected [facility] M. pneumoniae DNA Not Detected Not Detected [facility] Comment: Interpretive Data The [employer] FilmArray Respiratory Panel (RP2.1) assay is a [...] assay has FDA clearance for testing of CONTRACTING SPECIALIST swabs. The performance characteristics of this assay have been determined by [facility]. Current interpretive data was last revised on 2021. Nasopharyngeal 08/20/2024 9: 19 AM TITLE PROCESSOR 08/20/2024 9:22 AM TITLE PROCESSOR Narrative JADA JUSTIN - 08/20/2024 10:22 AM TITLE PROCESSOR Is the Patient experiencing symptoms consistent with COVID?->Yes Surveillance testing for transplant patient?->No Fei Murray MD LAB MICROBIOLOGY - GENERAL ORDERABLES Final Result JADA JUSTIN [address] Department [place] [address] * (ABNORMAL) D-dimer, quantitative (08/15/2024 1:08 AM TITLE PROCESSOR) D-Dimer 647(H) <=499 ng/mL FEU Comment: Interpretive [...] revised on 2019. Blood 08/15/2024 1:08 AM TITLE PROCESSOR 08/15/2024 1:11 AM TITLE PROCESSOR Maddison Muhammad NP LAB BLOOD ORDERABLES Final Resul t [facility] [address] [facility]. [place] [address] * eGFR (08/14/2024 9:59 PM TITLE PROCESSOR) eGFR >90 >=60 mL/min/1. 73 m2 Comment: [...] last reviewed 2021. Blood 08/14/2024 9:59 PM TITLE PROCESSOR 08/14/2024 10:10 PM TITLE PROCESSOR Abigail Richards MD LAB BLOOD ORDERABLES Final Result [facility] [address] [facility]. [place] [address] * Differential, auto (08/14/2024 9:59 PM TITLE PROCESSOR) Neutrophil abs 3.7 1.5 - 6.5 K/cumm Imm gran abs 0.0 0.0 - 0.1 K/cumm [facility] Lymphocyte abs 2.0 0.8 - 3.3 K/cumm [facility] Monocyte abs 0.5 0.2 - 0.8 K/cumm [facility] Eosinophil abs 0.2 0.0 - 0.5 K/cumm [facility] Basophil abs 0.1 0.0 - 0.1 K/cumm [facility] Neutrophil pct 57.5 % [facility] Comment: Interpretive Data Percent cell count reference ranges are not reported, since discordance with absolute values may lead to misinterpretation of CBC data. Current Interpretive Data was last revised on 2017. Imm gran pct 0.2 % [facility] Comment: Interpretive Data Percent cell count reference ranges are not reported, since discordance with absolute values may lead to misinterpretation of CBC data. Current Interpretive Data was last revised on 2017. Lymphocyte pct 30.2 % [facility] Comment: Interpretive Data Percent cell count reference ranges are not reported, since discordance with absolute values may lead to misinterpretation of CBC data. Current Interpretive Data was last revised on 2017. Monocyte pct 7.6 % [facility] Comment: Interpretive Data Percent cell count reference ranges are not reported, since discordance with absolute values may lead to misinterpretation of CBC data. Current Interpretive Data was last revised on 2017. Eosinophil pct 3.4 % [facility] Comment: Interpretive Data Percent cell count reference [...] revised on 2017. Blood 08/14/2024 9:59 PM TITLE PROCESSOR 08/14/2024 10:10 PM TITLE PROCESSOR us Abigail Richards MD LAB BLOOD ORDERABLES Final Result [facility] [address] [facility]. [place] [address] * Pro B-type natriuretic peptide (08/14/2024 9:59 PM TITLE PROCESSOR) NT-proBNP 75 <=300 pg/mL Comment: Interpretive Comments: [...] Revised Date: 2018. Blood 08/14/2024 9:59 PM TITLE PROCESSOR 08/14/2024 10:10 PM TITLE PROCESSOR Abigail Richards MD LAB BLOOD ORDERABLES Final Result Performing Organization Address [facility]/ZIP Co de Phone Number JADA GOODE [id number] [place] [address] * CBC with auto differential (08/14/2024 9:59 PM TITLE PROCESSOR) Pathologist [facility] WBC 6.5 3.8 - 9.9 K/cumm Hgb 13.3 13.0 - 17.5 g/dL [facility] Hct 39.8 38.9 - 50.3 % [facility] Plt 218 150 - 400 K/cumm [facility] MPV 10.0 9.1 - 12.3 fL [facility] RBC 4.49 4.30 - 5.80 M/cumm [facility] MCV 88.6 81.3 - 96.4 fL [facility] MCH 29.6 27.1 - 33.3 pg [facility] MCHC 33.4 32.3 - 35.7 g/dL [facility] RDW CV 12.7 11.1 - 14.9 % [facility] RDW SD 41.1 35.7 - 48.1 fL [facility] NRBC abs 0.00 0.00 - 0.01 K/cumm [facility] Blood (Blood, Venous) 08/14/2024 9:59 PM TITLE PROCESSOR 08/14/2024 10:10 PM TITLE PROCESSOR Abigail Richards MD LAB BLOOD ORDERABLES Final Result Performing Organization Address [facility]/ZIP Co de Phone Number JADA GOODE [phone] [employer] Department of Laboratories [place] [phone] * Lipase (08/14/2024 9:59 PM TITLE PROCESSOR) Lipase 50 10 - 99 Units/L Blood (Blood, Venous) 08/14/2024 9:59 PM TITLE PROCESSOR 08/14/2024 10:10 PM TITLE PROCESSOR Abigail Richards MD LAB BLOOD ORDERABLES Final Result [facility] [address] [facility]. [place] [address] * (ABNORMAL) Comprehensive metabolic panel (08/14/2024 9:59 PM TITLE PROCESSOR) Pathologist [facility] Sodium 139 135 - 145 mmol/L Potassium, pl 3.9 3.3 - 4.9 mmol/L [facility] Chloride 101 97 - 110 mmol/L [facility] CO2 27 22 - 32 mmol/L [facility] Anion gap 11 2 - 15 mmol/L [facility] BUN 25 6 - 25 mg/dL [facility] Creatinine 0.90 0.80 - 1.30 mg/dL [facility] Glucose 92 70 - 199 mg/dL [facility] Comment: Interpretive Data Fasting glucose [...] Bilirubin, total 0.5 0.1 - 1.2 mg/dL [facility] Protein, pl 6.6 6.5 - 8.5 g/dL [facility] Albumin 4.0 3.5 - 5.0 g/dL [facility] Alk phos 91 40 - 130 Units/L [facility] ALT 168(H) 7 - 55 Units/L [facility] AST 66(H) 10 - 50 Units/L [facility] Blood 08/14/2024 9:59 PM TITLE PROCESSOR 08/14/2024 10:10 PM TITLE PROCESSOR us Abigail Richards MD LAB BLOOD ORDERABLES Final Result JADA GOODE [address] [facility]. [place] [address] * TRANSTHORACIC ECHO (TTE) COMPLETE W DOPPLER/CF WO CONTRAST (08/14/2024 11:39 AM TITLE PROCESSOR) LV EF 55-60 % CONS SCIMAGE Anatomical Region Laterality Modality Ultrasound 08/14/2024 10:0 7 AM TITLE PROCESSOR Narrative 08/14/2024 11:49 AM TITLE PROCESSOR [place] [address] [place] [address] ECHOCARDIOGRAM Patient Name: LISA AZAR : 1980 (43y 11m) Gender: M Study Date: 08/14/2024 10:07:30 AM Ht(Inch): 68 Wt(Lb): 173.06 BSA: 1.94 Tmd Teacher Assistant: NINFA Location: [id number] Order Provider: PHOEBE ADKINS BMI: 26.31 BP: [...] Jerel Ramirez MD PhD 08/14/2024 11:48:00 AM TITLE PROCESSOR Procedure Note Jerel Ramirez MD PhD - 08/14/2024 [facility] [address] [place] [address] ECHOCARDIOGRAM Patient Name: LISA AZAR : 1980 (43y 11m) Gender: M Study Date: 08/14/2024 10:07:30 AM Ht(Inch): 68 Wt(Lb): 173.06 BSA: 1.94 Tmd Teacher Assistant: NINFA Location: [address] Order Provider: CHELY JANESSloane BMI: 26.31 BP: 97/65 Ref Provider: PHOEBE [...] Jerel Ramirez MD PhD 08/14/2024 11:48:00 AM TITLE PROCESSOR Phoebe Adkins MD CV ECHO PROCEDURES Final Result * eGFR (08/13/2024 5:30 AM TITLE PROCESSOR) Pathologist [facility] eGFR >90 >=60 [...] last reviewed 2021. Blood 08/13/2024 5:30 AM TITLE PROCESSOR 08/13/2024 6:25 AM TITLE PROCESSOR Phoebe Adkins MD LAB BLOOD ORDERABLES Final Resul t [facility] [address] Department [place] [address] * (ABNORMAL) CBC without differential (08/13/2024 5:30 AM TITLE PROCESSOR) [facility] WBC 5.7 3.8 - 9.9 K/cumm Hgb 11.9(L) 13.0 - 17.5 g/dL [facility] Hct 36.4(L) 38.9 - 50.3 % [facility] Plt 186 150 - 400 K/cumm [facility] MPV 10.6 9.1 - 12.3 fL [facility] RBC 4.01(L) 4.30 - 5.80 M/cumm [facility] MCV 90.8 81.3 - 96.4 fL [facility] MCH 29.7 27.1 - 33.3 pg [facility] MCHC 32.7 32.3 - 35.7 g/dL [facility] RDW CV 13.0 11.1 - 14.9 % [facility] RDW SD 43.0 35.7 - 48.1 fL [facility] NRBC abs 0.00 0.00 - 0.01 K/cumm [facility] Blood 08/13/2024 5:30 AM TITLE PROCESSOR 08/13/2024 6:25 AM TITLE PROCESSOR Phoebe Adkins MD LAB BLOOD ORDERABLES Final Resul t Performing Organization Address City/[facility] Co de Phone Number [facility] [address] [place] [address] * Phosphorus (08/13/2024 5:30 AM TITLE PROCESSOR) Pathologist [facility] Phosphorus, pl 2.9 2.3 - 4.5 mg/dL Blood 08/13/2024 5:30 AM TITLE PROCESSOR 08/13/2024 6:25 AM TITLE PROCESSOR us Phoebe Adkins MD LAB BLOOD ORDERABLES Final Resul t Performing Organization Address City/[facility]/ZIP Co de Phone Number [facility] [address] [facility] [place] [address] * Magnesium (08/13/2024 5:30 AM TITLE PROCESSOR) [facility] Magnesium 1.9 1.4 - 2.5 mg/dL Blood 08/13/2024 5:30 AM TITLE PROCESSOR 08/13/2024 6:25 AM TITLE PROCESSOR us Phoebe Adkins MD LAB BLOOD ORDERABLES Final Resul t Performing Organization Address [facility] Co de Phone Number [facility] [address] [facility] [place] [address] * Ferritin (08/13/2024 5:30 AM TITLE PROCESSOR) Pathologist [facility] Ferritin 39 30 - 400 ng/mL Blood 08/13/2024 5:30 AM TITLE PROCESSOR 08/13/2024 6:24 AM TITLE PROCESSOR us Phoebe Adkins MD LAB BLOOD ORDERABLES Final Resul t Performing Organization Address [facility] de Phone Number [facility] [address] [facility] [place] [address] * (ABNORMAL) Hepatic function panel (08/13/2024 5:30 AM TITLE PROCESSOR) [facility] Bilirubin, total 0.4 0.1 - 1.2 mg/dL Bilirubin, direct <0.2 0.1 - 0.3 mg/dL [facility] Protein, pl 5.9(L) 6.5 - 8.5 g/dL [facility] Albumin 3.5 3.5 - 5.0 g/dL [facility] Alk phos 71 40 - 130 Units/L [facility] ALT 200(H) 7 - 55 Units/L [facility] AST 101(H) 10 - 50 Units/L [facility] Blood 08/13/2024 5:30 AM TITLE PROCESSOR 08/13/2024 6:25 AM TITLE PROCESSOR us Russ Adkins MD LAB BLOOD ORDERABLES Final Resul t Performing Organization Address [facility] Co de Phone Number [facility] [address] [facility] [place] [address] * (ABNORMAL) Basic metabolic panel (08/13/2024 5:30 AM TITLE PROCESSOR) Sodium 140 135 - 145 mmol/L Potassium, pl 4.1 3.3 - 4.9 mmol/L [facility] Chloride 106 97 - 110 mmol/L [facility] CO2 24 22 - 32 mmol/L [facility] Anion gap 10 2 - 15 mmol/L [facility] BUN 23 6 - 25 mg/dL [facility] Creatinine 0.82 0.80 - 1.30 mg/dL [facility] Glucose 87 70 - 199 mg/dL [facility] Comment: Interpretive Data Fasting glucose >/= 126 [...] 2022. Calcium 8.1(L) 8.5 - 10.3 mg/dL [facility] Blood 08/13/2024 5:30 AM TITLE PROCESSOR 08/13/2024 6:25 AM TITLE PROCESSOR us Phoebe Adkins MD LAB BLOOD ORDERABLES Final Resul t [facility] [address] Department [place] [address] * Drugs of Abuse Screen, Urine with Reflex Confirmation (08/13/2024 12:15 AM TITLE PROCESSOR) Amphetamine, ur Not Detected CutOff 500ng/mL Comment: Interpretive Data - Amphetamines: Samples containing greater than 500 ng/mL d-methamphetamine or other cross-reacting amphetamine compounds are reported as positive. Amphetamine immunoassays are subject to significant false positive rates due to cross-reactivity of non-amphetamine drugs. Confirmatory testing required for definitive results. Current Interpretive Data was last reviewed 2023. Barbiturates, ur Not Detected CutOff 200ng/mL [facility] Comment: Interpretive Data - Barbiturates: Samples containing greater than 200 ng/mL secobarbital or other cross-reacting barbiturate compounds are reported as positive. False positive and false negative results are possible. Confirmatory testing required for definitive results. Current Interpretive Data was last reviewed 2023. Benzodiazepines, ur Not Detected CutOff 100ng/mL [facility] Comment: Interpretive Data - Benzodiazepines: Samples containing greater than 100 ng/mL nordiazepam or other cross-reacting compounds are reported as positive. False positive and false negative results are possible. Confirmatory testing required for definitive results. Current Interpretive Data was last reviewed 2023. Cannabinoids, ur Not Detected CutOff 50 ng/mL [facility] Comment: Interpretive Data - Cannabinoids: Samples containing greater than 50 ng/mL delta-9 THC -COOH or other cross- reacting compounds are reported as positive. False positive and false negative results are possible. Confirmatory testing required for definitive results. Current Interpretive Data was last reviewed 2023. Cocaine, ur Not Detected CutOff 150ng/mL [facility] Comment: Interpretive Data - Cocaine: Samples containing greater than 150 ng/mL benzoylecgonine or other cross- reacting compounds are reported as positive. False positive and false negative results are possible. Confirmatory testing required for definitive results. Current Interpretive Data was last reviewed 2023. Fentanyl, Ur Not Detected CutOff 5 ng/mL [facility] Comment: Interpretive Data - Fentanyl: Samples containing greater than 5 ng/mL norfentanyl, fentanyl, or other cross-reacting fentanyl compounds are reported as positive. False positive and false negative results are possible. Confirmatory testing required for definitive results. Current Interpretive Data was last reviewed 2023. Methadone, ur Not Detected CutOff 300ng/mL [facility] Comment: Interpretive Data - Methadone: Samples containing greater than 300 ng/mL d,l-methadone or other cross-reacting compounds are reported as positive. False positive and false negative results are possible. Confirmatory testing required for definitive results. Current Interpretive Data was last reviewed 2023. Opiates, ur Not Detected CutOff 300ng/mL [facility] Comment: Interpretive Data - Opiates: Samples containing greater than 300 ng/mL morphine or other cross-reacting compounds are reported as positive. False positive and false negative results are possible. Confirmatory testing required for definitive results. Current Interpretive Data was last reviewed 2023. Oxycodone, ur Not Detected CutOff 100ng/mL [facility] Comment: Interpretive Data - Oxycodone: Samples containing greater than 100 ng/mL oxycodone or other cross-reacting compounds are reported as positive. False positive and false negative results are possible. Confirmatory testing required for definitive results. Current Interpretive Data was last reviewed 2023. Phencyclidine, ur Not Detected CutOff 25 ng/mL [facility] Comment: Interpretive Data - Phencyclidine: Samples containing greater than 25 ng/mL phencyclidine or other cross-reacting compounds are reported as positive. False positive and false negative results are possible. Confirmatory testing required for definitive results. Current Interpretive Data was last reviewed 2023. Urine Creatinine 90 mg/dL [facility] Comment: Interpretive Data Urine Creatinine: < 10 mg/dL is extremely dilute = or > 10 but < 20 mg/dL is dilute = or > 20 mg/dL is normal Current Interpretive Data was last revised on 2017. Urine 08/13/2024 12:1 5 AM TITLE PROCESSOR 08/13/2024 12:26 AM TITLE PROCESSOR Narrative [facility] - 08/13/2024 12:54 AM TITLE PROCESSOR Drug of Abuse screening is performed by immunoassay for medical purposes only. This is not to be used for Pain Management purposes. If Detected, confirmation testing will be performed for Amphetamines, Cocaine, Fentanyl, Methadone, Opiates, Oxycodone or Phencyclidine. us Batsheva Portillo MD LAB URINE ORDERABLES Final Result [facility] [address] Department [place] [address] * (ABNORMAL) Urinalysis reflex to microscopic and culture Urine (08/13/2024 12:15 AM TITLE PROCESSOR) Color, ur Yellow Yellow Clarity, ur Clear Clear [facility] Specific gravity, ur >1.050(H) 1.003 - 1.030 [facility] pH, urine 6.5 [facility] Comment: Interpretive Data U rine pH is affected by diet, medications, systemic acid-base disturbances, and renal tubular function. pH may affect urinary stone formation. For example, urine pH below 6.0 may help reduce the tendency for calcium phosphate stones and pH greater than 6.0 may reduce the tendency for uric acid stone formation. Source: [facility] Current Interpretive Data was last revised on 2017 Protein, ur ql Negative Negative [facility] Glucose, ur ql Negative Negative [facility] Ketones, ur Negative Negative [facility] Bilirubin, ur Negative Negative [facility] Blood, ur Negative Negative [facility] Urobilinogen, ur <2.0 <2.0 mg/dL [facility] Nitrite, ur Negative Negative [facility] Leukocyte esterase, ur Negative Negative [facility] UA reflex comment Reflex conditions for microscopic UA and culture not met. [facility] Urine 08/13/2024 12:1 5 AM TITLE PROCESSOR 08/13/2024 12:15 AM TITLE PROCESSOR us Batsheva Portillo MD LAB MICROBIOLOGY - GENERAL ORDERABLES Final Result [facility] [address] Department [place] [address] * CT Chest PE (CTA) W Contrast (08/12/2024 11:48 PM TITLE PROCESSOR) Anatomical Region Laterality Modality Body N/A Computed Tomogra phy 08/12/2024 11:4 3 PM TITLE PROCESSOR Impressions 08/13/2024 9:24 AM TITLE PROCESSOR No pulmonary embolism. Electronically signed by: Tari Gavin M.D. Narrative 08/13/2024 9:24 AM TITLE PROCESSOR EXAMINATION: CT CHEST PE (CTA) W CONTRAST [...] Lower Extremity Bilateral Complete (08/12/2024 11:46 PM TITLE PROCESSOR) Anatomical Region Laterality Modality Vascular Bilateral Ultrasound 08/13/2024 12:0 9 PM TITLE PROCESSOR Impressions 08/13/2024 12:09 PM TITLE PROCESSOR 1. No evidence of DVT in the lower extremities bilaterally. 2. Pulsatile venous flow bilaterally. This may suggest increased intravascular volume or right-sided valvular heart disease. Clinical correlation suggested. 3. Prominent lymph nodes in both groins. Electronically signed by: Lv Smart M.D. Narrative 08/13/2024 12:09 PM TITLE PROCESSOR Lower Extremity Vein Duplex Bilateral DATE: 08/12/2024 [...] Lv Smart M.D. us Batsheva Portillo MD IM US PROCEDURES Final Res ult * US RUQ (08/12/2024 11:38 PM TITLE PROCESSOR) Anatomical Region Laterality Modality Abdomen N/A Ultrasound 08/12/2024 10:4 5 PM TITLE PROCESSOR Impressions 08/13/2024 11:42 AM TITLE PROCESSOR 1. Trace perihepatic ascites. 2. Pulsatile portal venous flow and dilated inferior vena cava, which may represent elevated right heart pressures and/or tricuspid regurgitation. For the purposes of clinical quality assurance specialist, this study was initially interpreted by teleradiology. There is no significant discrepancy. Electronically signed by: Saeid Baker MD, PHD Narrative 08/13/2024 11:42 AM TITLE PROCESSOR EXAMINATION: LIMITED ABDOMINAL SONOGRAM HISTORY: Elevated liver [...] and/or tricuspid regurgitation. For the purposes of clinical quality assurance specialist, this study was initially interpreted by teleradiology. There is no significant discrepancy. Electronically signed by: Saeid Baker MD, PHD us Batsheva Portillo MD IMG US PROCEDURES Final Res ult * D-Dimer - Add on lab test (08/12/2024 10:29 PM TITLE PROCESSOR) Acceptable Yes Blood 08/12/2024 10:2 9 PM TITLE PROCESSOR 08/12/2024 10:29 PM TITLE PROCESSOR Narrative [facility] - 08/12/2024 10:29 PM TITLE PROCESSOR Name of Test->D-Dimer us Batsheva Portillo MD LAB BLOOD ORDERABLES Final Result [facility] [address] Department [place] [address] * CT Head and Cervical Spine WO Contrast (08/12/2024 10:20 PM TITLE PROCESSOR) Anatomical Region Laterality Modality Head and Neck N/A Computed Tomogra phy 08/12/2024 10:1 3 PM TITLE PROCESSOR Impressions 08/13/2024 7:[address] HEAD: No acute intracranial abnormality or calvarial fracture. CT CERVICAL SPINE: 1. No acute osseous abnormality. 2. Multilevel cervical spondylosis; most pronounced at C5-C6 and C6-C7. For the purposes of clinical quality assurance specialist, this study was initially interpreted by teleradiology. There is no significant discrepancy. Electronically signed by: Zaheer Navas M.D. Narrative 08/13/2024 7:02 AM TITLE PROCESSOR EXAMINATION: 1. CT head without contrast 2. [...] C5-C6 and C6-C7. For the purposes of clinical quality assurance specialist, this study was initially interpreted by teleradiology. There is no significant discrepancy. Electronically signed by: Zaheer Navas M.D. us Batsheva Portillo MD IMG CT PROCEDURES Final Res ult * Protime-INR (08/12/2024 10:05 PM TITLE PROCESSOR) PT 12.8 9.7 - 13.0 sec INR 1.18 0.90 - 1.20 [facility] Comment: Interpretive data Oral anticoagulant therapeutic ranges: Venous thromboembolism prophylaxis or treatment: 2.0-3.0 CARDIOLOGY Standard range: 2.0-3.0 High-intensity range: 2.5-3.5 Refer to indication-specific guidelines for appropriate target ranges for prosthetic heart valve replacement. Current interpretive data was last revised on 2019. Blood 08/12/2024 10:0 5 PM TITLE PROCESSOR 08/12/2024 10:29 PM TITLE PROCESSOR us Batsheva Portillo MD LAB BLOOD ORDERABLES Final Result [facility] [address] [place] [address] * (ABNORMAL) D-dimer, quantitative (08/12/2024 10:05 PM TITLE PROCESSOR) D-Dimer 1,783(H) <=499 ng/mL FEU Comment: Interpretive [...] on 2019. Blood 08/12/2024 10:0 5 PM TITLE PROCESSOR 08/12/2024 10:05 PM TITLE PROCESSOR us Batsheva Portillo MD LAB BLOOD ORDERABLES Final Result [facility] [address] [facility] [place] [address] * Folate - Add on lab test (08/12/2024 9:53 PM TITLE PROCESSOR) Acceptable Yes Blood 08/12/2024 9:53 PM TITLE PROCESSOR 08/12/2024 9:53 PM TITLE PROCESSOR Narrative [facility] - 08/12/2024 9:54 PM TITLE PROCESSOR Name of Test->Folate us Batsheva Portillo MD LAB BLOOD ORDERABLES Final Result [facility] [address] [place] [address] * Vitamin B12 - Add on lab test (08/12/2024 9:53 PM TITLE PROCESSOR) Acceptable Yes Blood 08/12/2024 9:53 PM TITLE PROCESSOR 08/12/2024 9:54 PM TITLE PROCESSOR Narrative [facility] - 08/12/2024 9:54 PM TITLE PROCESSOR Name of Test->Vitamin B12 Batsheva Portillo MD LAB BLOOD ORDERABLES Final Result [facility] [address] [facility] [place] [address] * Iron profile - Add on lab test (08/12/2024 9:53 PM TITLE PROCESSOR) Acceptable Yes Blood 08/12/2024 9:53 PM TITLE PROCESSOR 08/12/2024 9:54 PM TITLE PROCESSOR Narrative [facility] - 08/12/2024 9:54 PM TITLE PROCESSOR Name of Test->Iron profile us Batsheva Portillo MD LAB BLOOD ORDERABLES Final Result Performing Organization Address City/[facility]/ZIP Co de Phone Number [facility] [address] [facility] [place] [address] * NT-Pro BNP - Add on lab test (08/12/2024 9:53 PM TITLE PROCESSOR) Acceptable Yes Blood 08/12/2024 9:53 PM TITLE PROCESSOR 08/12/2024 9:53 PM TITLE PROCESSOR Narrative [facility] - 08/12/2024 9:54 PM TITLE PROCESSOR Name of Test->NT-Pro BNP us Batsheva Portillo MD LAB BLOOD ORDERABLES Final Result [facility] [address] [facility] [place] [address] * TSH reflex Free T4 - Add on lab test (08/12/2024 9:53 PM TITLE PROCESSOR) Acceptable Yes Blood 08/12/2024 9:53 PM TITLE PROCESSOR 08/12/2024 9:53 PM TITLE PROCESSOR Narrative [facility] - 08/12/2024 9:54 PM TITLE PROCESSOR Name of Test->TSH reflex Free T4 Batsheva Portillo MD LAB BLOOD ORDERABLES Final Result Performing Organization Address [facility] Co de Phone Number [facility] [address] [facility] [place], [place] [id number] * Phosphorus - Add on lab test (08/12/2024 9:53 PM TITLE PROCESSOR) Acceptable Yes Blood 08/12/2024 9:53 PM TITLE PROCESSOR 08/12/2024 9:53 PM TITLE PROCESSOR Narrative [facility] - 08/12/2024 9:55 PM TITLE PROCESSOR Name of Test->Phosphorus Batsheva Portillo MD LAB BLOOD ORDERABLES Final Result Performing Organization Address [facility] Co de Phone Number [facility] [address] [place] [address] * Magnesium - Add on lab test (08/12/2024 9:53 PM TITLE PROCESSOR) Acceptable Yes Blood 08/12/2024 9:53 PM TITLE PROCESSOR 08/12/2024 9:53 PM TITLE PROCESSOR Narrative [facility] - 08/12/2024 9:55 PM TITLE PROCESSOR Name of Test->Magnesium Batsheva Portillo MD LAB BLOOD ORDERABLES Final Result Performing Organization Address [facility] Co de Phone Number [facility] [address] [facility] [place], [place] [id number] * Troponin T high-sensitivity 2-hour (08/12/2024 9:52 PM TITLE PROCESSOR) Trop T hs 6 <=22 ng/L Comment: Interpretive Data For further hscTnT resources including the diagnostic algorithm and an aid in interpretation, copy and paste this link: https://nrl.testcatalog.org/show/hsTrop Current Interpretive Data last revised 2020. Trop T hs delta -1 ng/L [facility] Trop T hs interp Insignificant [facility] Blood 08/12/2024 9:52 PM TITLE PROCESSOR 08/12/2024 10:30 PM TITLE PROCESSOR us Ace Gonzales MD LAB BLOOD ORDERABLES F inal Result Performing Organization Address [facility] Co de Phone Number [facility] [address] Department [place] [address] * Ethanol (08/12/2024 9:52 PM TITLE PROCESSOR) Pathologist [facility] Ethanol <10 <=10 mg/dL Comment: Interpretive Data Legal limit of intoxication > or = 80 mg/dL Levels > or = 400 mg/dL are potentially TOXIC. Current interpretive data was last revised on 2018. Blood 08/12/2024 9:52 PM TITLE PROCESSOR 08/12/2024 10:29 PM TITLE PROCESSOR us Batsheva Portillo MD LAB BLOOD ORDERABLES Final Result Performing Organization Address [facility] de Phone Number [facility] [address] [place] [address] * Hepatitis panel, acute Blood (08/12/2024 9:13 PM TITLE PROCESSOR) Pathologist [facility] Hep A IgM Nonreactive Nonreactive Comment: Interpretive Data: If Hep A IgM Ab is reported as Equivocal, a new sample should be drawn in two weeks for testing. Current interpretive data was last revised on 19. Hep B core IgM Nonreactive Nonreactive [facility] Comment: Interpretive Data If HepB Core IgM Ab is reported as Equivocal, a new sample should be drawn in two weeks for testing. Current interpretive data was last revised on 19. Hep C Ab Nonreactive Nonreactive [facility] Comment: Interpretive Data Nonreactive: Antibodies to HCV [...] last revised on 2019. HepBsAg Nonreactive Nonreactive [facility] Blood 08/12/2024 9:13 PM TITLE PROCESSOR 08/12/2024 9:17 PM TITLE PROCESSOR Batsheva Portillo MD LAB MICROBIOLOGY - GENERAL ORDERABLES Final Result Performing Organization Address [facility] Co de Phone Number [facility] [address] [place] [place] [address] * Acetaminophen level (08/12/2024 9:13 PM TITLE PROCESSOR) Acetaminophen <5 <=5 mcg/mL Comment: Interpretive Data Significant hepatic injury may occur and treatment with n-acetyl cysteine is generally recommended if the acetaminophen level exceeds: 150 mcg/mL at 4 hours after ingestion 75 mcg/mL at 8 hours after ingestion 38 mcg/mL at 12 hours after ingestion 19 mcg/mL at 16 hours after ingestion Consult toxicology or poison control ([phone]) for unknown ingestion time. Current interpretive data was last revised 2023. Blood 08/12/2024 9:13 PM TITLE PROCESSOR 08/12/2024 9:17 PM TITLE PROCESSOR us Batsheva Portillo MD LAB BLOOD ORDERABLES Final Result Performing Organization Address [facility] Co de Phone Number [facility] [address] [place] [address] * Troponin T high-sensitivity series (baseline, 2hr, 4hr, 6hr) (08/12/2024 8:08 PM TITLE PROCESSOR) Trop T hs 7 <=22 ng/L Comment: Interpretive Data For further hscTnT resources including the diagnostic algorithm and an aid in interpretation, copy and paste this link: https://nrl.testcatalog.org/show/hsTrop Current Interpretive Data last revised 2020. Blood 08/12/2024 8:08 PM TITLE PROCESSOR 08/12/2024 8:23 PM TITLE PROCESSOR us Batsheva Portillo MD LAB BLOOD ORDERABLES Final Result Performing Organization Address [facility]/ZIP Co de Phone Number [facility] [address] [place] [address] * eGFR (08/12/2024 8:08 PM TITLE PROCESSOR) Pathologist [facility] eGFR >90 >=60 [...] last reviewed 2021. Blood 08/12/2024 8:08 PM TITLE PROCESSOR 08/12/2024 8:23 PM TITLE PROCESSOR us Batsheva Portillo MD LAB BLOOD ORDERABLES Final Result Performing Organization Address City/[facility]/ZIP Co de Phone Number [facility] [address] [place] [address] * Differential, auto (08/12/2024 8:08 PM TITLE PROCESSOR) Neutrophil abs 3.5 1.5 - 6.5 K/cumm Imm gran abs 0.0 0.0 - 0.1 K/cumm [facility] Lymphocyte abs 2.2 0.8 - 3.3 K/cumm [facility] Monocyte abs 0.5 0.2 - 0.8 K/cumm [facility] Eosinophil abs 0.3 0.0 - 0.5 K/cumm [facility] Basophil abs 0.1 0.0 - 0.1 K/cumm [facility] Neutrophil pct 54.5 % [facility] Comment: Interpretive Data Percent cell count reference ranges are not reported, since discordance with absolute values may lead to misinterpretation of CBC data. Current Interpretive Data was last revised on 2017. Imm gran pct 0.3 % [facility] Comment: Interpretive Data Percent cell count reference ranges are not reported, since discordance with absolute values may lead to misinterpretation of CBC data. Current Interpretive Data was last revised on 2017. Lymphocyte pct 33.3 % [facility] Comment: Interpretive Data Percent cell count reference ranges are not reported, since discordance with absolute values may lead to misinterpretation of CBC data. Current Interpretive Data was last revised on 2017. Monocyte pct 6.9 % [facility] Comment: Interpretive Data Percent cell count reference ranges are not reported, since discordance with absolute values may lead to misinterpretation of CBC data. Current Interpretive Data was last revised on 2017. Eosinophil pct 4.1 % [facility] Comment: Interpretive Data Percent cell count reference ranges are not reported, since discordance with absolute values may lead to misinterpretation of CBC data. Current Interpretive Data was last revised on 2017. Basophil pct 0.9 % [facility] Comment: Interpretive Data Percent cell count reference ranges are not reported, since discordance with absolute values may lead to misinterpretation of CBC data. Current Interpretive Data was last revised on 2017. Blood 08/12/2024 8:08 PM TITLE PROCESSOR 08/12/2024 8:23 PM TITLE PROCESSOR us Batsheva Portillo MD LAB BLOOD ORDERABLES Final Result [facility] [address] [place] [address] * Pro B-type natriuretic peptide (08/12/2024 8:08 PM TITLE PROCESSOR) NT-proBNP 60 <=300 pg/mL Comment: Interpretive Comments: [...] Revised Date: 2018. Blood 08/12/2024 8:08 PM TITLE PROCESSOR 08/12/2024 8:23 PM TITLE PROCESSOR us Batsheva Portillo MD LAB BLOOD ORDERABLES Final Result Performing Organization Address [facility] Co de Phone Number [facility] [address] [place] [address] * Thyroid Function [place] (08/12/2024 8:08 PM TITLE PROCESSOR) [facility] TSH 1.43 0.30 - 4.20 mcIUnit/mL Blood 08/12/2024 8:08 PM TITLE PROCESSOR 08/12/2024 8:23 PM TITLE PROCESSOR us Batsheva Portillo MD LAB BLOOD ORDERABLES Final Result Performing Organization Address [facility]/ZIP Co de Phone Number [facility] [address] [facility] [place] [address] * (ABNORMAL) Iron profile w/ IBC (08/12/2024 8:08 PM TITLE PROCESSOR) [facility] Iron 46(L) 50 - 150 mcg/dL TIBC 296 250 - 400 mcg/dL [facility] Transferrin saturation 16(L) 20 - 50 % [facility] Blood 08/12/2024 8:08 PM TITLE PROCESSOR 08/12/2024 8:23 PM TITLE PROCESSOR us Batsheva Portillo MD LAB BLOOD ORDERABLES Final Result Performing Organization Address [facility] Co de Phone Number [facility] [address] [facility] [place], [place] [id number] * (ABNORMAL) CBC with auto differential (08/12/2024 8:08 PM TITLE PROCESSOR) [facility] WBC 6.5 3.8 - 9.9 K/cumm Hgb 12.5(L) 13.0 - 17.5 g/dL [facility] Hct 38.3(L) 38.9 - 50.3 % [facility] Plt 207 150 - 400 K/cumm [facility] MPV 10.1 9.1 - 12.3 fL [facility] RBC 4.22(L) 4.30 - 5.80 M/cumm [facility] MCV 90.8 81.3 - 96.4 fL [facility] MCH 29.6 27.1 - 33.3 pg [facility] MCHC 32.6 32.3 - 35.7 g/dL [facility] RDW CV 13.0 11.1 - 14.9 % [facility] RDW SD 43.2 35.7 - 48.1 fL [facility] NRBC abs 0.00 0.00 - 0.01 K/cumm [facility] Blood (Blood, Venous) 08/12/2024 8:08 PM TITLE PROCESSOR 08/12/2024 8:23 PM TITLE PROCESSOR us Batsheva Portillo MD LAB BLOOD ORDERABLES Final Result [facility] [address] [facility] [place] [address] * Phosphorus (08/12/2024 8:08 PM TITLE PROCESSOR) Pathologist [facility] Phosphorus, pl 3.1 2.3 - 4.5 mg/dL Blood 08/12/2024 8:08 PM TITLE PROCESSOR 08/12/2024 8:23 PM TITLE PROCESSOR us Batsheva Portillo MD LAB BLOOD ORDERABLES Final Result Performing Organization Address City/[facility]/ZIP Co de Phone Number [facility] [address] [facility] [place] [address] * Magnesium (08/12/2024 8:08 PM TITLE PROCESSOR) Pathologist [facility] Magnesium 2.0 1.4 - 2.5 mg/dL Blood 08/12/2024 8:08 PM TITLE PROCESSOR 08/12/2024 8:23 PM TITLE PROCESSOR us Batsheva Portillo MD LAB BLOOD ORDERABLES Final Result Performing Organization Address City/[facility]/ZIP Co de Phone Number [facility] [address] [facility] [place] [address] * Folate (08/12/2024 8:08 PM TITLE PROCESSOR) Pathologist [facility] Folic acid 7.6 >=5.0 ng/mL Blood 08/12/2024 8:08 PM TITLE PROCESSOR 08/12/2024 8:23 PM TITLE PROCESSOR Batsheva Portillo MD LAB BLOOD ORDERABLES Final Result [facility] [address] [place] [address] * Vitamin B12 (08/12/2024 8:08 PM TITLE PROCESSOR) [facility] Vitamin B12 860 230 - 1,250 pg/mL Blood 08/12/2024 8:08 PM TITLE PROCESSOR 08/12/2024 8:23 PM TITLE PROCESSOR us Batsheva Portillo MD LAB BLOOD ORDERABLES Final Result Performing Organization Address [facility] Co de Phone Number [facility] [address] [facility] [place] [address] * (ABNORMAL) Comprehensive metabolic panel (08/12/2024 8:08 PM TITLE PROCESSOR) [facility] Sodium 142 135 - 145 mmol/L Potassium, pl 4.4 3.3 - 4.9 mmol/L [facility] Chloride 106 97 - 110 mmol/L [facility] CO2 27 22 - 32 mmol/L [facility] Anion gap 9 2 - 15 mmol/L [facility] BUN 29(H) 6 - 25 mg/dL [facility] Creatinine 1.02 0.80 - 1.30 mg/dL [facility] Glucose 104 70 - 199 mg/dL [facility] Comment: Interpretive Data Fasting glucose >/= 126 [...] 2022. Calcium 8.6 8.5 - 10.3 mg/dL [facility] Bilirubin, total 0.3 0.1 - 1.2 mg/dL [facility] Protein, pl 6.1(L) 6.5 - 8.5 g/dL [facility] Albumin 3.7 3.5 - 5.0 g/dL [facility] Alk phos 83 40 - 130 Units/L [facility] ALT 230(H) 7 - 55 Units/L [facility] AST 158(H) 10 - 50 Units/L [facility] Blood 08/12/2024 8:08 PM TITLE PROCESSOR 08/12/2024 8:23 PM TITLE PROCESSOR us Batsheva Portillo MD LAB BLOOD ORDERABLES Final Result [facility] [address] Department [place] [address] * XR Chest PA Lateral 2 Views (08/12/2024 7:27 PM TITLE PROCESSOR) Anatomical Region Laterality Modality Body, Chest N/A Computed Radiogr aphy 08/13/2024 7:44 AM TITLE PROCESSOR Impressions 08/13/2024 7:44 AM TITLE PROCESSOR There is subtle airspace opacity in the right lung base which may represent pneumonia in the appropriate clinical setting. Alternatively, this may represent atelectasis. No pleural effusion. No pneumothorax. Heart size is normal. Electronically signed by: Tari Gavin M.D. Narrative 08/13/2024 7:44 AM TITLE PROCESSOR EXAMINATION: XR CHEST PA LATERAL 2 VIEWS [...] * ECG 12 lead (08/12/2024 6:48 PM TITLE PROCESSOR) 08/12/2024 6:48 PM TITLE PROCESSOR Narrative [facility] - 08/13/2024 1:41 PM TITLE PROCESSOR Vent Rate: 63 bpm RR Interval: 938 msec RI Interval: 165 msec QRS Duration: 96 msec QT Interval: 378 msec QTC Interval: 386 msec P-R-T [place]: 74 - 81 - 50 degrees IMPRESSION: SINUS RHYTHM POSSIBLE LEFT ATRIAL ENLARGEMENT [-0.1mV P WAVE IN V1/V2] BORDERLINE ECG Electronically Signed By: Jerel Ramirez MD PhD us Batsheva Portillo MD ECG ORDERABLES Final Resul t [facility] * XR Chest Pa Lateral 2 Views (08/11/2024 2:02 AM TITLE PROCESSOR) Anatomical Region Laterality Modality Body, Chest N/A Computed Radiogr aphy 08/11/2024 3:00 AM TITLE PROCESSOR Impressions 08/11/2024 9:05 AM TITLE PROCESSOR Comparison radiograph from 08/08/2024. No consolidation, pleural effusion, or pneumothorax. Cardiomediastinal silhouette within normal limits. Dictated by: Julio Rooney M.D. The radiology attending physician has personally reviewed this study, and had reviewed and/or edited this written report and agrees with it. Electronically signed by: Brice Mantilla M.D. Narrative 08/11/2024 9:05 AM TITLE PROCESSOR EXAMINATION: 2 view chest radiograph Procedure Note [...] sult * ECG 12-LEAD (08/11/2024 1:43 AM TITLE PROCESSOR) Narrative [facility] - 08/11/2024 1:43 AM TITLE PROCESSOR Johnnie Kelly MD 08/11/2024 1:44 AM ECG [...] Hawkins MD ECG ORDERABLES Final Resu lt [facility] * XR Chest PA Lateral 2 Views (08/08/2024 10:42 PM TITLE PROCESSOR) Anatomical Region Laterality Modality Body, Chest N/A Computed Radiogr aphy 08/08/2024 11:0 3 PM TITLE PROCESSOR Impressions 08/09/2024 10:05 AM TITLE PROCESSOR The current study is compared with the prior radiograph dated 09/13/2019. Mild bibasilar atelectasis. No consolidation, pleural effusion, or pneumothorax. Cardiomediastinal silhouette within normal limits. Dictated by: Chet Boogie MD The radiology attending physician has personally reviewed this study, and had reviewed and/or edited this written report and agrees with it. Electronically signed by: Steve Arce M.D. Narrative 08/09/2024 10:05 AM TITLE PROCESSOR EXAMINATION: 2 view chest radiograph Procedure Note [...] CT Head WO Contrast (08/08/2024 10:34 PM TITLE PROCESSOR) Anatomical Region Laterality Modality Head and Neck N/A Computed Tomogra phy 08/08/2024 10:4 4 PM TITLE PROCESSOR Impressions 08/09/2024 10:54 AM TITLE PROCESSOR 1. No acute intracranial process. 2. Large burden of cerumen in both external auditory canals which may be impacted. Dictated by: Juancho Marquez MD, Ph.D The radiology attending physician has personally reviewed this study, and had reviewed and/or edited this written report and agrees with it. Electronically signed by: Indio Zambrano M.D. Narrative 08/09/2024 10:54 AM TITLE PROCESSOR EXAMINATION: CT head without contrast HISTORY: 43-year-old [...] by: Indio Zambrano M.D. Karlo Gatica MD IM CT PROCEDURES Final Res ult * ECG 12-LEAD (08/08/2024 8:56 PM TITLE PROCESSOR) Narrative [facility] - 08/08/2024 8:56 PM TITLE PROCESSOR Salena Cobb MD 08/08/2024 8:57 PM ECG [...] Gatica MD ECG ORDERABLES Final Resul t [facility] * (ABNORMAL) Respiratory pathogen panel Nasopharyngeal (08/06/2024 9:59 AM TITLE PROCESSOR) [facility] Influenza A RNA Not Detected Not Detected Influenza B RNA Not Detected Not Detected [facility] RSV RNA Not Detected Not Detected [facility] COVID-19 RNA Not Detected Not Detected [facility] Coronavirus 229E RNA Not Detected Not Detected [facility] Coronavirus HKU1 RNA Not Detected Not Detected [facility] Coronavirus NL63 RNA Detected(A) Not Detected [facility] Coronavirus OC43 RNA Not Detected Not Detected [facility] Adenovirus DNA Not Detected Not Detected [facility] Metapneumovirus RNA Not Detected Not Detected [facility] Rhinovirus/Enterov irus RNA Not Detected Not Detected [facility] Parainfluenza 1 RNA Not Detected Not Detected [facility] Parainfluenza 2 RNA Not Detected Not Detected [facility] Parainfluenza 3 RNA Not Detected Not Detected [facility] Parainfluenza 4 RNA Not Detected Not Detected [facility] B. pertussis DNA Not Detected Not Detected [facility] B. parapertussis DNA Not Detected Not Detected [facility] C. pneumoniae DNA Not Detected Not Detected [facility] M. pneumoniae DNA Not Detected Not Detected [facility] Nasopharyngeal 08/06/2024 9: 59 AM TITLE PROCESSOR 08/06/2024 10:52 AM TITLE PROCESSOR Narrative [facility] - 08/06/2024 11:43 AM TITLE PROCESSOR Is the Patient experiencing symptoms consistent with COVID?->Yes Surveillance testing for transplant patient?->No Interpretive Data The [employer] FilmArray Respiratory Panel (RP2.1) assay is a [...] assay has FDA clearance for testing of CONTRACTING SPECIALIST swabs. The performance of additional specimen types has been assessed by the performing laboratory. The performance characteristics of this assay have been determined by [facility]. Current interpretive data was last revised on 22. [facility] [place] [place] Final Result [facility] Department [place] [address] from Last 3 Months Insurance [facility] [place] [address] [facility] [place] [address] [employer] Advance Directives For more information, please contact: [phone] * Full Code (Latest Code Status on File) Date Activated Date Inactivated Comments 08/13/2024 3:12 AM 08/14/2024 6:01 PM * Full Code Date Activated Date Inactivated Comments 10/28/2022 5:15 PM 10/29/2022 2:07 PM * Full Code Date Activated Date Inactivated Comments 08/09/2019 5:28 PM 08/10/2019 5:09 PM * Full Code Date Activated Date Inactivated Comments 07/29/2019 4:26 PM 08/04/2019 10:36 PM Care Teams Computer Aided Design Operator Relationship Specialty [place] [address] [place] [address] PCP - General Family Medicine 05/18/24 [place] [id number] [address] [facility] [address] [place] [address] Referring Physician General Surgery 08/04/19 [place] [id number] [address] Consulting Physician Gastroenterology 08/04/19
--- OUTSIDE RECORDS SUMMARY | 2024-09-24 20:04 | XMS_ITS | Encounter Summary ---
Author Organization [facility] [place] Address [address] [place] [address] Care Team Providers Care Embedded Engineer Name Role Phone Unavailable Primary Care Provider Unavailabl e Prior Encounters Date Type Department Care Team Description 11/19/2022 Travel Plan of Treatment Not on file Visit Diagnoses Not on file [facility]
--- OUTSIDE RECORDS SUMMARY | 2024-09-24 20:04 | XMS_ITS | Referral Summary ---
Author Organization [address] Address [address] [place] [phone] Care Team Providers Care Vamp Creaser Name Role Phone Elias Andrews MD Unavailable [phone] Jonah Otto MD Unavailable [phone] Jerle Camejo MD Primary Care Provider [phone] Encounters Date Type Department Care Team Description 09/24/2024 1:31 PM RECORD PRESS OPERATOR - 09/24/2024 2:22 PM [facility] Emergency [facility] Emergency Department [address] [place] [phone] Pain and swelling of lower extremity, left (Primary Dx) Discharge Disposition: Discharge to home or self care 09/24/2024 9:46 AM RECORD PRESS OPERATOR - 09/24/2024 10:21 AM RECORD PRESS OPERATOR Emergency [facility] Emergency Department [address] [place] [phone] Stefanie Kemp MD Pain and swelling of left lower extremity (Primary Dx) Discharge Disposition: Discharge to home or self care 09/22/2024 6:30 PM RECORD PRESS OPERATOR Office Visit [facility] at [address] [phone] Charlene To NP Upper respiratory tract infection, unspecified type (Primary Dx); Nasal congestion 09/20/2024 4:07 PM RECORD PRESS OPERATOR - 09/20/2024 4:49 PM RECORD PRESS OPERATOR Emergency [facility] Emergency Department [address] [place] [address] Medication refill (Primary Dx) Discharge Disposition: Discharge to home or self care 09/20/2024 1:26 AM RECORD PRESS OPERATOR - 09/20/2024 2:22 AM [facility] Emergency Department [address] [place] [address] Cesar Chiang MD Viral pharyngitis (Primary Dx) Discharge Disposition: Discharge to home or self care 09/19/2024 1:39 AM RECORD PRESS OPERATOR - 09/19/2024 2:32 AM [facility] Emergency Department [address] [place] [address] Jasbir Yañez MD Pedal edema (Primary Dx) Discharge Disposition: Discharge to home or self care 09/18/2024 6:00 PM RECORD PRESS OPERATOR - 09/18/2024 7:07 PM [facility] Emergency Department [address] [place] [address] Left before treatment completed (Primary Dx); Leg swelling Discharge Disposition: Left Against Medical Advice 09/17/2024 11:38 AM RECORD PRESS OPERATOR - 09/17/2024 1:19 PM [facility] Emergency Department [address] [place] [phone] Chronic venous insufficiency (Primary Dx); Bilateral lower extremity edema Discharge Disposition: Discharge to home or self care 09/14/2024 Telephone [facility] at [address] [phone] Lexi Garcia, OVERHAULER HELPER Med Refill 09/14/2024 12:10 AM RECORD PRESS OPERATOR - 09/14/2024 1:49 AM [facility] Emergency Department [address] [place] [phone] Brice Sepulveda MD Bilateral lower extremity edema (Primary Dx) Discharge Disposition: Discharge to home or self care 09/13/2024 9:20 PM RECORD PRESS OPERATOR - 09/13/2024 9:46 PM [facility] Emergency Department [address] [place] [address] Michael Schrader MD Weakness (Primary Dx) Discharge Disposition: Discharge to home or self care 09/13/2024 2:46 AM RECORD PRESS OPERATOR - 09/13/2024 5:31 AM [facility] Emergency Department [address] [place] [phone] Katharine Polanco MD Chronic venous insufficiency (Primary Dx); Lower extremity edema Discharge Disposition: Discharge to home or self care 09/12/2024 9:22 PM RECORD PRESS OPERATOR - 09/12/2024 10:59 PM [facility] Emergency Department [address] [place] [address] Leg swelling (Primary Dx); Venous insufficiency; Venous stasis dermatitis Discharge Disposition: Discharge to home or self care 09/11/2024 10:35 PM RECORD PRESS OPERATOR - 09/12/2024 3:44 AM [facility] Emergency Department [address] [place] [phone] Salena Crawley MD Lower extremity edema (Primary Dx); Cellulitis of left lower extremity Discharge Disposition: Discharge to home or self care 09/11/2024 7:00 PM RECORD PRESS OPERATOR Office Visit [facility] at [address] [phone] Truman Gabriel, Symptom of leg swelling (Primary Dx) 09/10/2024 5:00 PM RECORD PRESS OPERATOR Office Visit [facility] at [address] [phone] Jess Hobson NP Cellulitis of left lower extremity (Primary Dx); Left leg swelling 09/07/2024 10:55 AM RECORD PRESS OPERATOR - 09/07/2024 10:56 AM [facility] Emergency Department [address] [place] [address] Venous stasis dermatitis of both lower extremities (Primary Dx) Discharge Disposition: Discharge to home or self care 09/05/2024 8:08 PM RECORD PRESS OPERATOR - 09/05/2024 10:28 PM [facility] Emergency Department [address] [place] [address] Other chronic pain (Primary Dx); Bilateral lower extremity edema Discharge Disposition: Discharge to home or self care 09/05/2024 2:02 AM RECORD PRESS OPERATOR - 09/05/2024 3:14 AM [facility] Emergency Department [address] [place] [address] Marek Nelson MD PhD Chronic pain of left lower extremity (Primary Dx) Discharge Disposition: Discharge to home or self care 09/03/2024 7:07 PM RECORD PRESS OPERATOR - 09/03/2024 11:06 PM [facility] Emergency Department [address] [place] [phone] Cellulitis of left lower extremity (Primary Dx) Discharge Disposition: Discharge to home or self care 09/02/2024 8:24 AM RECORD PRESS OPERATOR - 09/02/2024 11:59 PM [facility] [address] [place] [address] Discharge Disposition: Discharge to home or self care 09/02/2024 3:25 AM RECORD PRESS OPERATOR - 09/02/2024 3:41 AM [facility] Emergency Department [address] [place] [address] Rachele Guerra MD Sprain of right ankle, unspecified ligament, initial encounter (Primary Dx) Discharge Disposition: Discharge to home or self care 09/01/2024 8:06 AM RECORD PRESS OPERATOR - 09/01/2024 9:39 AM [facility] Emergency [facility] Emergency Department [address] [place] [phone] Jair Armendariz MD Sprain of right ankle, unspecified ligament, initial encounter (Primary Dx) Discharge Disposition: Discharge to home or self care 08/23/2024 9:27 PM [facility] - 08/23/2024 10:03 PM [facility] Emergency Department [address] [place] [address] Leg swelling (Primary Dx); Cellulitis of left lower extremity Discharge Disposition: Discharge to home or self care 08/23/2024 1:41 AM RECORD PRESS OPERATOR - 08/23/2024 9:16 AM [facility] Emergency [facility] Emergency Department [address] [place] [phone] Salena Crawley MD Li, Alex, MD Schneider, John Elliott, MD Leg swelling (Primary Dx); Cellulitis of left lower extremity; Failure of outpatient treatment Discharge Disposition: Discharge to home or self care 08/20/2024 11:11 PM RECORD PRESS OPERATOR - 08/21/2024 1:30 AM [facility] Emergency [facility] Emergency Department [address] [place] [address] Dependent edema (Primary Dx) Discharge Disposition: Discharge to home or self care 08/20/2024 9:06 AM RECORD PRESS OPERATOR - 08/20/2024 11:08 AM [facility] Emergency Department [id number] [place] [address] Fei Murray MD Upper respiratory tract infection, unspecified type (Primary Dx); Peripheral edema Discharge Disposition: Discharge to home or self care 08/20/2024 2:24 AM [facility] - 08/20/2024 4:35 AM [facility] Emergency Department [address] [place] [address] Discharge Disposition: Left without being seen 08/18/2024 5:58 AM RECORD PRESS OPERATOR - 08/18/2024 7:26 AM [facility] Emergency [facility] Emergency Department [address] [place] [phone] Lorenzo Peña MD Peripheral edema (Primary Dx) Discharge Disposition: Discharge to home or self care 08/17/2024 3:00 PM [facility] Diagnostic [facility] Orthopaedic Surgery [facility] Advanced Medicine 6th [place] [address] [place] [phone] Luciano Nelson MD Encounter for examination of normal volunteer in research study 08/15/2024 12:23 AM RECORD PRESS OPERATOR - 08/15/2024 1:52 AM [facility] Emergency [facility] Emergency Department [address] [place] [address] [place] (Primary Dx); Swelling Discharge Disposition: Discharge to home or self care 08/12/2024 8:23 PM RECORD PRESS OPERATOR - 08/14/2024 1:56 PM [facility] Hospital [facility] [address] [place] [address] Batsheva Portillo MD Li, MD Lucille Garcia Alex, MD COVID-19 (Primary Dx); Recurrent syncope; Chest pain, unspecified type; Anemia, unspecified type; Elevated AST (SGOT); Elevated ALT measurement; Nonintractable headache, unspecified chronicity pattern, unspecified headache type Discharge Disposition: Discharge to home or self care 08/11/2024 3:49 AM RECORD PRESS OPERATOR - 08/11/2024 4:35 AM [facility] Emergency Department [address] [place] [phone] Abdiel Hawkins MD Coronavirus infection (Primary Dx); Lightheadedness Discharge Disposition: Discharge to home or self care 08/08/2024 9:58 PM RECORD PRESS OPERATOR - 08/08/2024 11:12 PM [facility] Emergency Department [address] [place] [phone] Karlo Gatica MD COVID (Primary Dx); Dehydration; Syncope, unspecified syncope type Discharge Disposition: Discharge to home or self care 08/07/2024 [facility] Eligibility Review [facility] Community Health Worker [address] [place] [phone] Darlene Zurita MT 08/06/2024 9:50 AM RECORD PRESS OPERATOR - 08/06/2024 12:23 PM [facility] Emergency [facility] Emergency Department [address] [place] [phone] Jassi Daniels MD Coronavirus infection (Primary Dx) Discharge Disposition: Discharge to home or self care 08/02/2024 12:46 PM RECORD PRESS OPERATOR - 08/02/2024 1:16 PM [facility] Emergency [facility] Emergency Department [address] [place] [address] Gee Moran MD Chronic right shoulder pain (Primary Dx) Discharge Disposition: Discharge to home or self care 08/01/2024 2:00 AM RECORD PRESS OPERATOR - 08/01/2024 3:17 AM [facility] Emergency [facility] Emergency Department [address] [place] [phone] Chronic right shoulder pain (Primary Dx); Encounter for medication refill Discharge Disposition: Discharge to home or self care 07/29/2024 9:38 PM RECORD PRESS OPERATOR - 07/29/2024 11:38 PM [facility] Emergency [facility] Emergency Department [address] [place] [phone] Cindy Hendricks MD Injury of right rotator cuff, subsequent encounter (Primary Dx) Discharge Disposition: Discharge to home or self care 07/24/2024 Documentation [facility] [address] [place] [address] Health [address] [place] [phone] Cherie Ramirez, [facility] Social Work Services 07/24/2024 1:00 PM [facility] Office [facility] Trauma [address] [place] [address] 4th Floor [address] [place] [phone] Right anterior shoulder pain (Primary Dx) 07/19/2024 Documentation [facility] [address] [place] [address] [address] [place] [phone] Cherie Ramirez, [facility] Social Work Services 06/26/2024 Orders Only [facility] Orthopaedic Surgery [address] [facility] Medicine 6th [place] [address] [place] [address] Michael Corona MD Encounter for examination of [...] capsule 09/06/19 25 025 Discontinued( erapy completed) cephalexin (KEFLEX) 500 mg capsuleIndica [...] Insurance Qualify for In Clinic PT? 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 Assessment & Plan (08/09/2019 7:07 PM RECORD PRESS OPERATOR): Patient presents with complaints of ongoing abdominal [...] 07/29/2019 Assessment & Plan (08/10/2019 10:48 AM RECORD PRESS OPERATOR): Ongoing nausea post cholecystectomy w/o vomiting. Tolerating PO, no emesis overnight - prn zofran - ADAT Assessment & Plan (08/09/2019 7:17 PM RECORD PRESS OPERATOR): Ongoing nausea post cholecystectomy w/o vomiting. - shaman hope - ADAT Calculus of gallbladder 07/29/2019 Dizziness 07/29/2019 Assessment & Plan (08/10/2019 10:59 AM RECORD PRESS OPERATOR): Patient describes dizziness related to uncontrolled abdominal pain. He endorses pain starts in RQ and moves to head . He then becomes diaphoretic, nauseous. Improved this AM. Likely vasovagal, hemodynamically stable. - discussed proper hydration and symptom management Assessment & Plan (08/09/2019 7:16 PM RECORD PRESS OPERATOR): Patient describes dizziness related to uncontrolled abdominal pain. He endorses pain starts in RQ and moves to head . He then becomes diaphoretic, nauseous. - likely vasovagal, s/p 1 L LR in ED. CTM Intractable right upper quadrant abdominal pain 07/29/2019 Overview (08/01/2019): Added automatically from request for surgery [id number] Adjustment disorder with depressed mood in remis [...] drink = 0.6 oz pur e alcohol) [facility] Utilities Answer Date Recorded In the past 12 months has [place], gas, oil, or water [employer] threatened to shut off services in your [...] often do you attend roman catholic or confucianism serv ices? Patient declined 08/14/2024 Do you [...] any time in the past 12 m [facility], were you homeless or living in a long-term (including now)? Patient declined 08/14/2024 Personal Safety Answer Date Recorded Have you ever been in or are you currently in a harmful physical or emotional relationship or is someone making you feel afraid or unsafe? Denies 09/24/2024 Sex and Gender Information Value Date Recorded Sex Assigned at Not on file Legal Sex Male 9:25 PM RECORD PRESS OPERATOR Gender Identity Not on file Sexual Orientation Straight 11/18/2022 7: 07 PM CDT Last Filed Vital Signs Vital Sign Reading Time Taken Comments Blood Pressure 123/75 09/24/2024 12:17 PM RECORD PRESS OPERATOR Pulse 85 09/24/2024 12:17 PM RECORD PRESS OPERATOR Temperature 36.7 C (98 F) 09/24/2024 12:17 PM RECORD PRESS OPERATOR Respiratory Rate 16 09/24/2024 12:17 PM RECORD PRESS OPERATOR Oxygen Saturation 100% 09/24/2024 12:17 PM RECORD PRESS OPERATOR Inhaled Oxygen Concentration - - Weight 74.8 kg (165 lb) 09/24/2024 12:17 PM RECORD PRESS OPERATOR Height 172.7 cm (5' 8 ) 09/24/2024 12:17 PM RECORD PRESS OPERATOR Body Mass Index 25.09 09/24/2024 12:17 PM RECORD PRESS OPERATOR Plan of Treatment Not on file Procedures Procedure Name Priority Date/Time Associated Diagnosis Comments POC INFLUENZA A/B, COVID-19 ANTIGEN Routine 09/22/2024 5:30 PM RECORD PRESS OPERATOR Nasal congestion INFLUENZA A/B, RSV, AND COVID-19 PCR STAT 09/20/2024 1:25 AM RECORD PRESS OPERATOR PRO B-TYPE NATRIURETIC PEPTIDE Add-On 09/18/2024 1:35 PM RECORD PRESS OPERATOR EGFR STAT 09/18/2024 1:35 PM RECORD PRESS OPERATOR DIFFERENTIAL AUTO STAT 09/18/2024 1:3 5 PM RECORD PRESS OPERATOR COMPREHENSIVE METABOLIC PANEL STAT 09/18/2024 1:35 PM RECORD PRESS OPERATOR CBC WITH AUTO DIFFERENTIAL STAT 09/18/2024 1:35 PM RECORD PRESS OPERATOR EGFR STAT 09/11/2024 9:10 PM RECORD PRESS OPERATOR DIFFERENTIAL AUTO STAT 09/11/2024 9:1 0 PM RECORD PRESS OPERATOR PRO B-TYPE NATRIURETIC PEPTIDE STAT 09/11/2024 9:10 PM RECORD PRESS OPERATOR COMPREHENSIVE METABOLIC PANEL STAT 09/11/2024 9:10 PM RECORD PRESS OPERATOR CBC WITH AUTO DIFFERENTIAL STAT 09/11/2024 9:10 PM RECORD PRESS OPERATOR EGFR STAT 09/07/2024 2:59 AM RECORD PRESS OPERATOR DIFFERENTIAL AUTO STAT 09/07/2024 2:5 9 AM RECORD PRESS OPERATOR BASIC METABOLIC PANEL STAT 09/07/2024 2:59 AM RECORD PRESS OPERATOR CBC WITH AUTO DIFFERENTIAL STAT 09/07/2024 2:59 AM RECORD PRESS OPERATOR US VEIN DUPLEX LOWER EXTREMITY BILATERAL COMPLETE ED 09/03/2024 7:37 PM RECORD PRESS OPERATOR MRI SHOULDER RIGHT WO CONTRAST Schedule Routine, Read Routine (OP Routine) 09/02/2024 9:06 AM RECORD PRESS OPERATOR Right anterior shoulder pain XR ANKLE RIGHT 2 VIEWS ED 09/01/2024 9:33 PM RECORD PRESS OPERATOR XR TIBIA FIBULA RIGHT2 VIEWS ED 09/01/2024 8:37 AM RECORD PRESS OPERATOR XR ANKLE RIGHT 3 OR MORE VIEWS ED 08/31/2024 10:35 PM RECORD PRESS OPERATOR XR FOOT RIGHT 3 OR MORE VIEWS ED 08/31/2024 10:34 PM RECORD PRESS OPERATOR EGFR STAT 08/23/2024 2:33 AM RECORD PRESS OPERATOR DIFFERENTIAL AUTO STAT 08/23/2024 2:3 3 AM RECORD PRESS OPERATOR PRO B-TYPE NATRIURETIC PEPTIDE STAT 08/23/2024 2:33 AM RECORD PRESS OPERATOR COMPREHENSIVE METABOLIC PANEL STAT 08/23/2024 2:33 AM RECORD PRESS OPERATOR CBC WITH AUTO DIFFERENTIAL STAT 08/23/2024 2:33 AM RECORD PRESS OPERATOR SEPSIS LACTATE WITH REFLEX Routine 08/23/2024 2:33 AM RECORD PRESS OPERATOR BLOOD CULTURE Routine 08/23/2024 2:33 AM RECORD PRESS OPERATOR BLOOD CULTURE Routine 08/23/2024 2:33 AM RECORD PRESS OPERATOR ECG 12-LEAD STAT 08/23/2024 2:32 AM RECORD PRESS OPERATOR EGFR STAT 08/21/2024 12:35 AM RECORD PRESS OPERATOR DIFFERENTIAL AUTO STAT 08/21/2024 12: 35 AM RECORD PRESS OPERATOR CRP (ACUTE PHASE) STAT 08/21/2024 12: 35 AM RECORD PRESS OPERATOR ERYTHROCYTE SEDIMENTATION RATE STAT 08/21/2024 12:35 AM RECORD PRESS OPERATOR BASIC METABOLIC PANEL STAT 08/21/2024 12:35 AM RECORD PRESS OPERATOR CBC WITH AUTO DIFFERENTIAL STAT 08/21/2024 12:35 AM RECORD PRESS OPERATOR STREPTOCOCCUS GROUP A PCR STAT 08/20/2024 9:19 AM RECORD PRESS OPERATOR RESPIRATORY PATHOGEN PANEL Routine 08/20/2024 9:19 AM RECORD PRESS OPERATOR D-DIMER, QUANTITATIVE STAT 08/15/2024 1:08 AM RECORD PRESS OPERATOR PRO B-TYPE NATRIURETIC PEPTIDE STAT 08/14/2024 9:59 PM RECORD PRESS OPERATOR EGFR STAT 08/14/2024 9:59 PM RECORD PRESS OPERATOR DIFFERENTIAL AUTO STAT 08/14/2024 9:5 9 PM RECORD PRESS OPERATOR LIPASE STAT 08/14/2024 9:59 PM RECORD PRESS OPERATOR COMPREHENSIVE METABOLIC PANEL STAT 08/14/2024 9:59 PM RECORD PRESS OPERATOR CBC WITH AUTO DIFFERENTIAL STAT 08/14/2024 9:59 PM RECORD PRESS OPERATOR TRANSTHORACIC ECHO (TTE) COMPLETE W DOPPLER/CF WO CONTRAST Routine 08/14/2024 11:39 AM RECORD PRESS OPERATOR HEPATIC FUNCTION PANEL Routine 08/13/2024 5:30 AM RECORD PRESS OPERATOR EGFR Routine 08/13/2024 5:30 AM RECORD PRESS OPERATOR CBC WITHOUT DIFFERENTIAL Routine 08/13/2024 5:30 AM RECORD PRESS OPERATOR PHOSPHORUS Routine 08/13/2024 5:30 AM RECORD PRESS OPERATOR MAGNESIUM Routine 08/13/2024 5:30 AM RECORD PRESS OPERATOR BASIC METABOLIC PANEL Routine 08/13/2024 5:30 AM RECORD PRESS OPERATOR FERRITIN Routine 08/13/2024 5:30 AM RECORD PRESS OPERATOR DRUGS OF ABUSE SCREEN, URINE WITH REFLEX CONFIRMATION Routine 08/13/2024 12:15 AM RECORD PRESS OPERATOR URINALYSIS AND REFLEX TO MICROSCOPIC AND CULTURE STAT 08/13/2024 12:15 AM RECORD PRESS O[address] CHEST PE W CONTRAST ED 08/12/2024 11:48 PM RECORD PRESS OPERATOR US VEIN DUPLEX LOWER EXTREMITY BILATERAL COMPLETE ED 08/12/2024 11:46 PM RECORD PRESS OPERATOR US RUQ ED 08/12/2024 11:38 PM RECORD PRESS OPERATOR ADD ON LAB TEST Add-On 08/12/2024 10:29 [address] HEAD AND CERVICAL SPINE WO CONTRAST ED 08/12/2024 10:20 PM RECORD PRESS OPERATOR D-DIMER, QUANTITATIVE STAT 08/12/2024 10:05 PM RECORD PRESS OPERATOR PROTIME-INR STAT 08/12/2024 10:05 PM RECORD PRESS OPERATOR ADD ON LAB TEST Add-On 08/12/2024 9:53 PM RECORD PRESS OPERATOR ADD ON LAB TEST Add-On 08/12/2024 9:53 PM RECORD PRESS OPERATOR ADD ON LAB TEST Add-On 08/12/2024 9:53 PM RECORD PRESS OPERATOR ADD ON LAB TEST Add-On 08/12/2024 9:53 PM RECORD PRESS OPERATOR ADD ON LAB TEST Add-On 08/12/2024 9:53 PM RECORD PRESS OPERATOR ADD ON LAB TEST Add-On 08/12/2024 9:53 PM RECORD PRESS OPERATOR ADD ON LAB TEST Add-On 08/12/2024 9:53 PM RECORD PRESS OPERATOR ETHANOL STAT 08/12/2024 9:52 PM RECORD PRESS OPERATOR TROPONIN T HIGH-SENSITIVITY 2-HOUR Timed 08/12/2024 9:52 PM RECORD PRESS OPERATOR ACETAMINOPHEN LEVEL STAT 08/12/2024 9 :13 PM RECORD PRESS OPERATOR HEPATITIS PANEL, ACUTE STAT 08/12/2024 9:13 PM RECORD PRESS OPERATOR PRO B-TYPE NATRIURETIC PEPTIDE STAT 08/12/2024 8:08 PM RECORD PRESS OPERATOR THYROID FUNCTION CASCADE STAT 08/12/2024 8:08 PM RECORD PRESS OPERATOR FOLATE STAT 08/12/2024 8:08 PM RECORD PRESS OPERATOR IRON PROFILE W/ IBC STAT 08/12/2024 8 :08 PM RECORD PRESS OPERATOR VITAMIN B12 STAT 08/12/2024 8:08 PM RECORD PRESS OPERATOR MAGNESIUM STAT 08/12/2024 8:08 PM RECORD PRESS OPERATOR PHOSPHORUS STAT 08/12/2024 8:08 PM RECORD PRESS OPERATOR EGFR STAT 08/12/2024 8:08 PM RECORD PRESS OPERATOR DIFFERENTIAL AUTO STAT 08/12/2024 8:0 8 PM RECORD PRESS OPERATOR TROPONIN T HIGH-SENSITIVITY SERIES (BASELINE, 2HR, 4HR, 6HR) STAT 08/12/2024 8:08 PM RECORD PRESS OPERATOR COMPREHENSIVE METABOLIC PANEL STAT 08/12/2024 8:08 PM RECORD PRESS OPERATOR CBC WITH AUTO DIFFERENTIAL STAT 08/12/2024 8:08 PM RECORD PRESS OPERATOR XR CHEST PA LATERAL 2 VIEWS ED 08/12/2024 7:27 PM RECORD PRESS OPERATOR ECG 12-LEAD STAT 08/12/2024 6:48 PM RECORD PRESS OPERATOR XR CHEST PA LATERAL 2 VIEWS ED 08/11/2024 2:02 AM RECORD PRESS OPERATOR ECG 12-LEAD STAT 08/11/2024 1:43 AM RECORD PRESS OPERATOR XR CHEST PA LATERAL 2 VIEWS ED 08/08/2024 10:42 [address] HEAD WO CONTRAST ED 08/08/2024 1 0:34 PM RECORD PRESS OPERATOR ECG 12-LEAD STAT 08/08/2024 8:56 PM RECORD PRESS OPERATOR RESPIRATORY PATHOGEN PANEL Routine 08/06/2024 9:59 AM RECORD PRESS OPERATOR from Last 3 Months Results * POC Influenza A/B, COVID-19 antigen (09/22/2024 5:30 PM RECORD PRESS OPERATOR) Influenza A Ag, POC Negative Negative [facility] Influenza B Ag, POC Negative Negative [facility] COVID-19 Ag POC Presumptive Negative Presumptive Negative, Invalid [facility] Nasopharyngeal 09/22/2024 5: 30 PM RECORD PRESS OPERATOR us Charlene oT NP POINT OF CARE TEST ORDE FRANCHESKA Final Result [facility] [address] [place] [address] * Influenza A/B, RSV, and COVID-19 PCR Nasopharyngeal (09/20/2024 1:25 AM RECORD PRESS OPERATOR) Pathologist [facility] COVID-19 RNA Negative Negative Influenza A RNA Negative Negative [facility] ([facility]) Influenza B RNA Negative Negative [facility] ([facility]) RSV RNA Negative Negative [facility] ([place]) Comment: Interpretive data: Testing performed by [facility]. This test is performed using the [employer] Xpert Xpress CoV-2/Flu/RSV plus assay. This is a multiplex, real- time reverse transcriptase PCR assay intended for the qualitative detection of nucleic acid from SARS-CoV-2, influenza A, influenza B, and respiratory syncytial virus. This assay has been cleared by the [place] Food and Drug administration. The performance characteristics have been verified by the [facility]. Results must be considered in the clinical context, and a negative result does not rule out infection. Interpretive Data last revised 2023 Nasopharyngeal 09/20/2024 1: 25 AM RECORD PRESS OPERATOR 09/20/2024 1:29 AM RECORD PRESS OPERATOR Narrative [facility] - 09/20/2024 2:07 AM RECORD PRESS OPERATOR Is the Patient experiencing symptoms consistent with COVID?->Yes us Cesar Chiang MD LAB MICROBIOLOGY - GENERAL ORD ERABLES Final Result [facility] ([place]) [facility] Department [place] [address] * eGFR (09/18/2024 1:35 PM RECORD PRESS OPERATOR) Pathologist [facility] eGFR >90 >=60 mL/min/1. 73 m2 [...] last reviewed 2021. Blood 09/18/2024 1:35 PM RECORD PRESS OPERATOR 09/18/2024 1:38 PM RECORD PRESS OPERATOR us Megan Dill MD LAB BLOOD ORDERABLE S Final Result [facility] ([place]) [facility] Department [place] [address] * Differential, auto (09/18/2024 1:35 PM RECORD PRESS OPERATOR) Neutrophil abs 4.8 1.5 - 6.5 K/cumm [...] revised on 2017. Basophil pct 0.6 % [facility] ([place]) Comment: Interpretive Data Percent cell count reference ranges are not reported, since discordance with absolute values may lead to misinterpretation of CBC data. Current Interpretive Data was last revised on 2017. Blood 09/18/2024 1:35 PM RECORD PRESS OPERATOR 09/18/2024 1:38 PM RECORD PRESS OPERATOR us Megan Dill MD LAB BLOOD ORDERABLE S Final Result [facility] ([place]) [facility] Department [place] [address] * Pro B-type natriuretic peptide (09/18/2024 1:35 PM RECORD PRESS OPERATOR) NT-proBNP <36 <=300 pg/mL Comment: Interpretive Comments: [...] Revised Date: 2018. Blood 09/18/2024 1:35 PM RECORD PRESS OPERATOR 09/18/2024 6:28 PM RECORD PRESS OPERATOR us Jossue Cox NP LAB BLOOD ORDERABLES Final Result [facility] ([place] Department [place] [address] * CBC with auto differential (09/18/2024 1:35 PM RECORD PRESS OPERATOR) WBC 6.6 3.8 - 9.9 K/cumm Hgb [...] [facility] ([place]) Blood 09/18/2024 1:35 PM RECORD PRESS OPERATOR 09/18/2024 1:38 PM RECORD PRESS OPERATOR us Megan Dill MD LAB BLOOD ORDERABLE S Final Result [facility] ([place] Department [place] [address] * Comprehensive metabolic panel (09/18/2024 1:35 PM RECORD PRESS OPERATOR) Sodium 140 135 - 145 mmol/L Potassium, [...] Hemolyzed S pecimen Blood 09/18/2024 1:35 PM RECORD PRESS OPERATOR 09/18/2024 1:38 PM RECORD PRESS OPERATOR us Megan Dill MD LAB BLOOD ORDERABLE S Final Result [facility] Department [place] [address] * eGFR (09/11/2024 9:10 PM RECORD PRESS OPERATOR) eGFR >90 >=60 mL/min/1. 73 m2 Comment: [...] last reviewed 2021. Blood 09/11/2024 9:10 PM RECORD PRESS OPERATOR 09/11/2024 9:30 PM RECORD PRESS OPERATOR us Salena Crawley MD LAB BLOOD ORDERABLES Fin al Result [facility] [address] Department [place] [address] * Differential, auto (09/11/2024 9:10 PM RECORD PRESS OPERATOR) Neutrophil abs 3.8 1.5 - 6.5 K/cumm Imm gran abs 0.0 0.0 - 0.1 K/cumm [facility] Lymphocyte abs 1.1 0.8 - 3.3 K/cumm [facility] Monocyte abs 0.5 0.2 - 0.8 K/cumm [facility] Eosinophil abs 0.2 0.0 - 0.5 K/cumm [facility] Basophil abs 0.0 0.0 - 0.1 K/cumm [facility] Neutrophil pct 67.2 % [facility] Comment: Interpretive Data Percent cell count reference ranges are not reported, since discordance with absolute values may lead to misinterpretation of CBC data. Current Interpretive Data was last revised on 2017. Imm gran pct 0.4 % [facility] Comment: Interpretive Data Percent cell count reference ranges are not reported, since discordance with absolute values may lead to misinterpretation of CBC data. Current Interpretive Data was last revised on 2017. Lymphocyte pct 20.1 % [facility] Comment: Interpretive Data Percent cell count reference ranges are not reported, since discordance with absolute values may lead to misinterpretation of CBC data. Current Interpretive Data was last revised on 2017. Monocyte pct 8.6 % [facility] Comment: Interpretive Data Percent cell count reference ranges are not reported, since discordance with absolute values may lead to misinterpretation of CBC data. Current Interpretive Data was last revised on 2017. Eosinophil pct 3.2 % [facility] Comment: Interpretive Data Percent cell count reference ranges are not reported, since discordance with absolute values may lead to misinterpretation of CBC data. Current Interpretive Data was last revised on 2017. Basophil pct 0.5 % [facility] Comment: Interpretive Data Percent cell count reference ranges are not reported, since discordance with absolute values may lead to misinterpretation of CBC data. Current Interpretive Data was last revised on 2017. Blood 09/11/2024 9:10 PM RECORD PRESS OPERATOR 09/11/2024 9:30 PM RECORD PRESS OPERATOR Salena Crawley MD LAB BLOOD ORDERABLES Fin al Result [facility] [address] Department [place] [address] * Pro B-type natriuretic peptide (09/11/2024 9:10 PM RECORD PRESS OPERATOR) NT-proBNP <36 <=300 pg/mL Comment: Interpretive Comments: [...] Revised Date: 2018. Blood 09/11/2024 9:10 PM RECORD PRESS OPERATOR 09/11/2024 9:30 PM RECORD PRESS OPERATOR Salena Crawley MD LAB BLOOD ORDERABLES Fin al Result Performing Organization Address [facility]/ZIP Co de Phone Number [facility] [address] Department of [employer] [place], [place] [id number] * CBC with auto differential (09/11/2024 9:10 PM RECORD PRESS OPERATOR) [facility] WBC 5.7 3.8 - 9.9 K/cumm Hgb 13.1 13.0 - 17.5 g/dL [facility] Hct 40.0 38.9 - 50.3 % [facility] Plt 184 150 - 400 K/cumm [facility] MPV 10.6 9.1 - 12.3 fL [facility] RBC 4.43 4.30 - 5.80 M/cumm [facility] MCV 90.3 81.3 - 96.4 fL [facility] MCH 29.6 27.1 - 33.3 pg [facility] MCHC 32.8 32.3 - 35.7 g/dL [facility] RDW CV 12.7 11.1 - 14.9 % [facility] RDW SD 41.7 35.7 - 48.1 fL [facility] NRBC abs 0.00 0.00 - 0.01 K/cumm [facility] Blood 09/11/2024 9:10 PM RECORD PRESS OPERATOR 09/11/2024 9:30 PM RECORD PRESS OPERATOR Salena Crawley MD LAB BLOOD ORDERABLES Fin al Result Performing Organization Address City/[facility]/ZIP Co de Phone Number [facility] [address] Department [employer] [place] [address] * (ABNORMAL) Comprehensive metabolic panel (09/11/2024 9:10 PM RECORD PRESS OPERATOR) Pathologist [facility] Sodium 142 135 - 145 mmol/L Potassium, pl 4.3 3.3 - 4.9 mmol/L [facility] Chloride 101 97 - 110 mmol/L [facility] CO2 28 22 - 32 mmol/L [facility] Anion gap 13 2 - 15 mmol/L [facility] BUN 28(H) 6 - 25 mg/dL [facility] Creatinine 0.89 0.80 - 1.30 mg/dL [facility] Glucose 113 70 - 199 mg/dL [facility] Comment: Interpretive Data Fasting glucose >/= 126 [...] 2022. Calcium 9.2 8.5 - 10.3 mg/dL [facility] Bilirubin, total 0.8 0.1 - 1.2 mg/dL [facility] Protein, pl 6.7 6.5 - 8.5 g/dL [facility] Albumin 4.0 3.5 - 5.0 g/dL [facility] Alk phos 79 40 - 130 Units/L [facility] ALT 62(H) 7 - 55 Units/L [facility] AST 40 10 - 50 Units/L [facility] Comment:Slightly Hemolyzed S pecimen Blood 09/11/2024 9:10 PM RECORD PRESS OPERATOR 09/11/2024 9:30 PM RECORD PRESS OPERATOR us Salena Crawley MD LAB BLOOD ORDERABLES Fin al Result [facility] [address] Department [place] [address] * eGFR (09/07/2024 2:59 AM RECORD PRESS OPERATOR) eGFR >90 >=60 mL/min/1. 73 m2 Comment: [...] last reviewed 2021. Blood 09/07/2024 2:59 AM RECORD PRESS OPERATOR 09/07/2024 3:02 AM RECORD PRESS OPERATOR us Jair Armendariz MD LAB BLOOD ORDERABLES Final Result [address] Department [place] [address] * Differential, auto (09/07/2024 2:59 AM RECORD PRESS OPERATOR) Neutrophil abs 3.0 1.5 - 6.5 K/cumm Imm gran abs 0.0 0.0 - 0.1 K/cumm [facility] Lymphocyte abs 2.1 0.8 - 3.3 K/cumm [facility] Monocyte abs 0.4 0.2 - 0.8 K/cumm [facility] Eosinophil abs 0.2 0.0 - 0.5 K/cumm [facility] Basophil abs 0.0 0.0 - 0.1 K/cumm [facility] Neutrophil pct 51.2 % [facility] Comment: Interpretive Data Percent cell count reference ranges are not reported, since discordance with absolute values may lead to misinterpretation of CBC data. Current Interpretive Data was last revised on 2017. Imm gran pct 0.3 % [facility] Comment: Interpretive Data Percent cell count reference ranges are not reported, since discordance with absolute values may lead to misinterpretation of CBC data. Current Interpretive Data was last revised on 2017. Lymphocyte pct 36.9 % [facility] Comment: Interpretive Data Percent cell count reference ranges are not reported, since discordance with absolute values may lead to misinterpretation of CBC data. Current Interpretive Data was last revised on 2017. Monocyte pct 6.9 % [facility] Comment: Interpretive Data Percent cell count reference ranges are not reported, since discordance with absolute values may lead to misinterpretation of CBC data. Current Interpretive Data was last revised on 2017. Eosinophil pct 4.0 % [facility] Comment: Interpretive Data Percent cell count reference ranges are not reported, since discordance with absolute values may lead to misinterpretation of CBC data. Current Interpretive Data was last revised on 2017. Basophil pct 0.7 % [facility] Comment: Interpretive Data Percent cell count reference ranges are not reported, since discordance with absolute values may lead to misinterpretation of CBC data. Current Interpretive Data was last revised on 2017. Blood 09/07/2024 2:59 AM RECORD PRESS OPERATOR 09/07/2024 3:02 AM RECORD PRESS OPERATOR us Jair Armendariz MD LAB BLOOD ORDERABLES Final Result [facility] [address] [facility] Department [place] [address] * (ABNORMAL) CBC with auto differential (09/07/2024 2:59 AM RECORD PRESS OPERATOR) Pathologist [facility] WBC 5.8 3.8 - 9.9 K/cumm Hgb 12.3(L) 13.0 - 17.5 g/dL [facility] Hct 37.2(L) 38.9 - 50.3 % [facility] Plt 163 150 - 400 K/cumm [facility] MPV 10.4 9.1 - 12.3 fL [facility] RBC 4.17(L) 4.30 - 5.80 M/cumm [facility] MCV 89.2 81.3 - 96.4 fL [facility] MCH 29.5 27.1 - 33.3 pg [facility] MCHC 33.1 32.3 - 35.7 g/dL [facility] RDW CV 12.6 11.1 - 14.9 % [facility] RDW SD 41.1 35.7 - 48.1 fL [facility] NRBC abs 0.00 0.00 - 0.01 K/cumm [facility] Blood 09/07/2024 2:59 AM RECORD PRESS OPERATOR 09/07/2024 3:02 AM RECORD PRESS OPERATOR us Jair Armendariz MD LAB BLOOD ORDERABLES Final Result [facility] [address] [facility] Department [place] [address] * Basic metabolic panel (09/07/2024 2:59 AM RECORD PRESS OPERATOR) Sodium 143 135 - 145 mmol/L Potassium, pl 4.4 3.3 - 4.9 mmol/L [facility] Chloride 109 97 - 110 mmol/L [facility] CO2 25 22 - 32 mmol/L [facility] Anion gap 9 2 - 15 mmol/L [facility] BUN 24 6 - 25 mg/dL [facility] Creatinine 0.87 0.80 - 1.30 mg/dL [facility] Glucose 86 70 - 199 mg/dL [facility] Comment: Interpretive Data Fasting glucose >/= [...] 2022. Calcium 9.1 8.5 - 10.3 mg/dL [facility] Blood 09/07/2024 2:59 AM RECORD PRESS OPERATOR 09/07/2024 3:02 AM RECORD PRESS OPERATOR Jair Armendariz MD LAB BLOOD ORDERABLES Final Result [facility] Department [place] [address] * US Vein Duplex Lower Extremity Bilateral Complete (09/03/2024 7:37 PM RECORD PRESS OPERATOR) Anatomical Region Laterality Modality Vascular Bilateral Ultrasound 09/04/2024 2:26 PM RECORD PRESS OPERATOR Impressions 09/04/2024 2:26 PM RECORD PRESS OPERATOR 1. No evidence of DVT in the lower extremities bilaterally. 2. Evidence of pulsatile venous flow. This may suggest increased intravascular volume or right-sided valvular heart disease. Clinical correlation suggested. 3. No change when compared to previous studies. Electronically signed by: Lv Smart M.D. Narrative 09/04/2024 2:26 PM RECORD PRESS OPERATOR Lower Extremity Vein Duplex Bilateral DATE: 09/03/2024 [...] Shoulder Right WO Contrast (09/02/2024 9:06 AM RECORD PRESS OPERATOR) Anatomical Region Laterality Modality Upper Extremities Right Magnetic Reson ance 09/02/2024 11:0 8 AM RECORD PRESS OPERATOR Impressions 09/02/2024 12:42 PM RECORD PRESS OPERATOR 1. Minimal right rotator cuff tendinopathy without [...] and agrees with it. Electronically signed by: MD Bernadette Crowley 09/02/2024 12:42 PM RECORD PRESS OPERATOR EXAMINATION: 1. MRI right shoulder without contrast [...] Ankle Right 2 Views (09/01/2024 9:33 PM RECORD PRESS OPERATOR) Anatomical Region Laterality Modality Lower Extremities, Ankle Right Compute d Radiography 09/02/2024 8:13 AM RECORD PRESS OPERATOR Impressions 09/02/2024 8:13 AM RECORD PRESS OPERATOR There is mild swelling about the right ankle. There is a fracture of the base of 5th metacarpal, similar to prior. No additional fractures. The joints are normal. Electronically signed by: Brice Mantilla M.D. Narrative 09/02/2024 8:13 AM RECORD PRESS OPERATOR EXAMINATION: XR ANKLE RIGHT 2 VIEWS HISTORY: [...] Fibula Right 2 views (09/01/2024 8:37 AM RECORD PRESS OPERATOR) Anatomical Region Laterality Modality Lower Extremities, Lower Leg Right Com puted Radiography 09/01/2024 8:45 AM RECORD PRESS OPERATOR Impressions 09/01/2024 8:45 AM RECORD PRESS OPERATOR No acute fracture of the tibia or fibula. Alignment is normal. Electronically signed by: Greg Joy M.D. Narrative 09/01/2024 8:45 AM RECORD PRESS OPERATOR EXAMINATION: XR TIBIA FIBULA RIGHT2 VIEWS HISTORY: [...] 3 or More Views (08/31/2024 10:35 PM RECORD PRESS OPERATOR) Anatomical Region Laterality Modality Lower Extremities, Ankle Right Compute d Radiography 09/01/2024 11:1 6 AM RECORD PRESS OPERATOR Impressions 09/01/2024 11:16 AM RECORD PRESS OPERATOR Comparison is made to a prior study [...] Ness Liz M.D. Narrative 09/01/2024 11:16 AM RECORD PRESS OPERATOR EXAMINATION: XR ANKLE RIGHT 3 OR MORE [...] 3 or More Views (08/31/2024 10:34 PM RECORD PRESS OPERATOR) Anatomical Region Laterality Modality Lower Extremities, Foot Right Computed Radiography 09/01/2024 11:1 6 AM RECORD PRESS OPERATOR Impressions 09/01/2024 11:16 AM RECORD PRESS OPERATOR Comparison is made to a prior study [...] Ness Liz M.D. Narrative 09/01/2024 11:16 AM RECORD PRESS OPERATOR EXAMINATION: XR ANKLE RIGHT 3 OR MORE [...] Sepsis Lactate w/ Reflex (08/23/2024 2:33 AM RECORD PRESS OPERATOR) Sepsis Lactate 0.7 0.7 - 2.0 mmol/L Blood 08/23/2024 2:33 AM RECORD PRESS OPERATOR 08/23/2024 2:46 AM RECORD PRESS OPERATOR Salena Crawley MD LAB BLOOD ORDERABLES Fin al Result Performing Organization Address [facility]/ZIP Co de Phone Number [facility] [address] [employer] [place], [place] [id number] * eGFR (08/23/2024 2:33 AM RECORD PRESS OPERATOR) eGFR >90 >=60 mL/min/1. 73 m2 Comment: [...] last reviewed 2021. Blood 08/23/2024 2:33 AM RECORD PRESS OPERATOR 08/23/2024 3:24 AM RECORD PRESS OPERATOR Salena Crawley MD LAB BLOOD ORDERABLES Fin al Result Performing Organization Address City/[facility]/ZIP Co de Phone Number [facility] [address] Department [employer] [place] [address] * Differential, auto (08/23/2024 2:33 AM RECORD PRESS OPERATOR) Neutrophil abs 3.1 1.5 - 6.5 K/cumm Imm gran abs 0.0 0.0 - 0.1 K/cumm [facility] Lymphocyte abs 2.0 0.8 - 3.3 K/cumm [facility] Monocyte abs 0.5 0.2 - 0.8 K/cumm [facility] Eosinophil abs 0.2 0.0 - 0.5 K/cumm [facility] Basophil abs 0.1 0.0 - 0.1 K/cumm [facility] Neutrophil pct 53.2 % [facility] Comment: Interpretive Data Percent cell count reference ranges are not reported, since discordance with absolute values may lead to misinterpretation of CBC data. Current Interpretive Data was last revised on 2017. Imm gran pct 0.2 % [facility] Comment: Interpretive Data Percent cell count reference ranges are not reported, since discordance with absolute values may lead to misinterpretation of CBC data. Current Interpretive Data was last revised on 2017. Lymphocyte pct 34.0 % [facility] Comment: Interpretive Data Percent cell count reference ranges are not reported, since discordance with absolute values may lead to misinterpretation of CBC data. Current Interpretive Data was last revised on 2017. Monocyte pct 7.8 % [facility] Comment: Interpretive Data Percent cell count reference ranges are not reported, since discordance with absolute values may lead to misinterpretation of CBC data. Current Interpretive Data was last revised on 2017. Eosinophil pct 3.8 % [facility] Comment: Interpretive Data Percent cell count reference ranges are not reported, since discordance with absolute values may lead to misinterpretation of CBC data. Current Interpretive Data was last revised on 2017. Basophil pct 1.0 % [facility] Comment: Interpretive Data Percent cell count reference ranges are not reported, since discordance with absolute values may lead to misinterpretation of CBC data. Current Interpretive Data was last revised on 2017. Blood 08/23/2024 2:33 AM RECORD PRESS OPERATOR 08/23/2024 3:24 AM RECORD PRESS OPERATOR us Salena Crawley MD LAB BLOOD ORDERABLES Fin al Result Performing Organization Address [facility] Co de Phone Number [facility] [address] Department [place] [address] * Pro B-type natriuretic peptide (08/23/2024 2:33 AM RECORD PRESS OPERATOR) NT-proBNP <36 <=300 pg/mL Comment: Interpretive Comments: [...] Revised Date: 2018. Blood 08/23/2024 2:33 AM RECORD PRESS OPERATOR 08/23/2024 3:24 AM RECORD PRESS OPERATOR Salena Crawley MD LAB BLOOD ORDERABLES Fin al Result Performing Organization Address [facility]/ZIP Co de Phone Number [facility] [address] Department of [employer] [place] [address] * (ABNORMAL) CBC with auto differential (08/23/2024 2:33 AM RECORD PRESS OPERATOR) WBC 5.8 3.8 - 9.9 K/cumm Hgb 12.9(L) 13.0 - 17.5 g/dL [facility] Hct 39.2 38.9 - 50.3 % [facility] Plt 205 150 - 400 K/cumm [facility] MPV 10.8 9.1 - 12.3 fL [facility] RBC 4.39 4.30 - 5.80 M/cumm [facility] MCV 89.3 81.3 - 96.4 fL [facility] MCH 29.4 27.1 - 33.3 pg [facility] MCHC 32.9 32.3 - 35.7 g/dL [facility] RDW CV 12.8 11.1 - 14.9 % [facility] RDW SD 41.8 35.7 - 48.1 fL [facility] NRBC abs 0.00 0.00 - 0.01 K/cumm [facility] Blood 08/23/2024 2:33 AM RECORD PRESS OPERATOR 08/23/2024 3:24 AM RECORD PRESS OPERATOR Salena Crawley MD LAB BLOOD ORDERABLES Fin al Result Performing Organization Address [facility]/ZIP Co de Phone Number [facility] [address] Department of [employer] [place] [address] * Blood culture Blood (08/23/2024 2:33 AM RECORD PRESS OPERATOR) Report Final Report: No growth Blood 08/23/2024 2:33 AM RECORD PRESS OPERATOR 08/23/2024 2:47 AM RECORD PRESS OPERATOR Narrative [facility] - 08/28/2024 7:01 AM RECORD PRESS OPERATOR From a different site than #1. Collection->Peripheral [...] organism identification may be performed using the Responde AiArray Blood Culture Identification panel. This assay detects microbial DNA in a blood culture broth. This assay has been cleared by the [facility] Food and Drug Administration and its performance characteristics have been verified by the [facility]. Interpretive data was last revised on September 03, 2022. Salena Crawley MD LAB MICROBIOLOGY - GENER AL ORDERABLES Final Result Performing Organization Address City/[facility] Co de Phone Number [facility] [address] [place] [address] * Blood culture Blood (08/23/2024 2:33 AM RECORD PRESS OPERATOR) Report Final Report: No growth Blood 08/23/2024 2:33 AM RECORD PRESS OPERATOR 08/23/2024 2:48 AM RECORD PRESS OPERATOR Narrative [facility] - 08/28/2024 7:01 AM RECORD PRESS OPERATOR Collection->Peripheral Interpretive Data 1. Blood cultures are incubated and monitored continuously for 5 days (120 hours). The first negative report is issued within 24 hours of receipt in the laboratory. 2. All positive cultures are resulted and called to physicians/care providers as soon as they are detected. 3. A rapid molecular test for organism identification may be performed using the Responde AiArray Blood Culture Identification panel. This assay detects microbial DNA in a blood culture broth. This assay has been cleared by the [place] Food and Drug Administration and its performance characteristics have been verified by the [facility]. Interpretive data was last revised on September 03, 2022. Slaena Crawley MD LAB MICROBIOLOGY - GENER AL ORDERABLES Final Result Performing Organization Address City/[facility] Co de Phone Number [facility] [address] Department [employer] [place], [place] [id number] * (ABNORMAL) Comprehensive metabolic panel (08/23/2024 2:33 AM RECORD PRESS OPERATOR) Sodium 140 135 - 145 mmol/L Potassium, pl 3.9 3.3 - 4.9 mmol/L [facility] Chloride 104 97 - 110 mmol/L [facility] CO2 25 22 - 32 mmol/L [facility] Anion gap 11 2 - 15 mmol/L [facility] BUN 24 6 - 25 mg/dL [facility] Creatinine 0.82 0.80 - 1.30 mg/dL [facility] Glucose 83 70 - 199 mg/dL [facility] Comment: Interpretive Data Fasting glucose >/= 126 [...] 2022. Calcium 9.3 8.5 - 10.3 mg/dL [facility] Bilirubin, total 0.6 0.1 - 1.2 mg/dL [facility] Protein, pl 6.9 6.5 - 8.5 g/dL [facility] Albumin 4.0 3.5 - 5.0 g/dL [facility] Alk phos 70 40 - 130 Units/L [facility] ALT 65(H) 7 - 55 Units/L [facility] AST 30 10 - 50 Units/L [facility] Comment:Slightly Hemolyzed S pecimen Blood 08/23/2024 2:33 AM RECORD PRESS OPERATOR 08/23/2024 3:24 AM RECORD PRESS OPERATOR us Salena Crawley MD LAB BLOOD ORDERABLES Fin al Result [facility] [address] [place] [address] * ECG 12 lead (08/23/2024 2:32 AM RECORD PRESS OPERATOR) 08/23/2024 2:32 AM RECORD PRESS OPERATOR Narrative [facility] - 08/24/2024 4:38 PM RECORD PRESS OPERATOR Vent Rate: 64 bpm RR Interval: 935 msec CA Interval: 174 msec QRS Duration: 109 msec QT Interval: 409 msec QTC Interval: 418 msec P-R-T [place]: 68 - 81 - 41 degrees IMPRESSION: SINUS RHYTHM NORMAL ECG Electronically Signed By: Andrea Moralez MD [facility] us Salena Crawley MD ECG ORDERABLES Final Re sult [facility] * eGFR (08/21/2024 12:35 AM RECORD PRESS OPERATOR) eGFR >90 >=60 mL/min/1. 73 m2 Comment: [...] reviewed 2021. Blood 08/21/2024 12:3 5 AM RECORD PRESS OPERATOR 08/21/2024 12:40 AM RECORD PRESS OPERATOR us Magalis MARQUES LAB BLOOD ORDERABLE S Final Result [facility] Department [place] [address] * Differential, auto (08/21/2024 12:35 AM RECORD PRESS OPERATOR) Neutrophil abs 3.7 1.5 - 6.5 K/cumm Imm gran abs 0.0 0.0 - 0.1 K/cumm [facility] Lymphocyte abs 2.2 0.8 - 3.3 K/cumm [facility] Monocyte abs 0.6 0.2 - 0.8 K/cumm [facility] Eosinophil abs 0.3 0.0 - 0.5 K/cumm [facility] Basophil abs 0.1 0.0 - 0.1 K/cumm [facility] Neutrophil pct 54.1 % [facility] Comment: Interpretive Data Percent cell count reference ranges are not reported, since discordance with absolute values may lead to misinterpretation of CBC data. Current Interpretive Data was last revised on 2017. Imm gran pct 0.1 % [facility] Comment: Interpretive Data Percent cell count reference ranges are not reported, since discordance with absolute values may lead to misinterpretation of CBC data. Current Interpretive Data was last revised on 2017. Lymphocyte pct 32.5 % [facility] Comment: Interpretive Data Percent cell count reference ranges are not reported, since discordance with absolute values may lead to misinterpretation of CBC data. Current Interpretive Data was last revised on 2017. Monocyte pct 8.3 % [facility] Comment: Interpretive Data Percent cell count reference ranges are not reported, since discordance with absolute values may lead to misinterpretation of CBC data. Current Interpretive Data was last revised on 2017. Eosinophil pct 4.3 % [facility] Comment: Interpretive Data Percent cell count reference ranges are not reported, since discordance with absolute values may lead to misinterpretation of CBC data. Current Interpretive Data was last revised on 2017. Basophil pct 0.7 % [facility] Comment: Interpretive Data Percent cell count reference ranges are not reported, since discordance with absolute values may lead to misinterpretation of CBC data. Current Interpretive Data was last revised on 2017. Blood 08/21/2024 12:3 5 AM RECORD PRESS OPERATOR 08/21/2024 12:40 AM RECORD PRESS OPERATOR us Magalis MARQUES LAB BLOOD ORDERABLE S Final Result JADA [address] [place] [address] * (ABNORMAL) CBC with auto differential (08/21/2024 12:35 AM RECORD PRESS OPERATOR) WBC 6.9 3.8 - 9.9 K/cumm Hgb 12.1(L) 13.0 - 17.5 g/dL [facility] Hct 36.8(L) 38.9 - 50.3 % [facility] Plt 200 150 - 400 K/cumm [facility] MPV 10.1 9.1 - 12.3 fL [facility] RBC 4.14(L) 4.30 - 5.80 M/cumm [facility] MCV 88.9 81.3 - 96.4 fL [facility] MCH 29.2 27.1 - 33.3 pg [facility] MCHC 32.9 32.3 - 35.7 g/dL [facility] RDW CV 12.8 11.1 - 14.9 % [facility] RDW SD 41.5 35.7 - 48.1 fL [facility] NRBC abs 0.00 0.00 - 0.01 K/cumm [facility] Blood 08/21/2024 12:3 5 AM RECORD PRESS OPERATOR 08/21/2024 12:40 AM RECORD PRESS OPERATOR Magalis MARQUES LAB BLOOD ORDERABLE S Final Result JADA HANSON[address] [place] [address] * Erythrocyte sedimentation rate (08/21/2024 12:35 AM RECORD PRESS OPERATOR) Erythrocyte sedimentation rate 5 1 - 15 mm/hr [facility] Blood 08/21/2024 12:3 5 AM RECORD PRESS OPERATOR 08/21/2024 12:40 AM RECORD PRESS OPERATOR Magalis Alcantar Willy [place] LAB BLOOD ORDERABLE S Final Result Performing Organization Address City/[facility]/ZIP Co de Phone Number [address] [place] [address] * CRP (acute phase) (08/21/2024 12:35 AM RECORD PRESS OPERATOR) [facility] CRP <3.5 <=10.0 mg/L Blood 08/21/2024 12:3 5 AM RECORD PRESS OPERATOR 08/21/2024 12:40 AM RECORD PRESS OPERATOR Magalis Aguilera [place] LAB BLOOD ORDERABLE S Final Result Performing Organization Address [facility] Phone Number [address] [place] [address] * (ABNORMAL) Basic metabolic panel (08/21/2024 12:35 AM RECORD PRESS OPERATOR) [facility] Sodium 140 135 - 145 mmol/L Potassium, pl 4.2 3.3 - 4.9 mmol/L [facility] Chloride 104 97 - 110 mmol/L [facility] CO2 26 22 - 32 mmol/L [facility] Anion gap 10 2 - 15 mmol/L [facility] BUN 34(H) 6 - 25 mg/dL [facility] Creatinine 0.91 0.80 - 1.30 mg/dL [facility] Glucose 96 70 - 199 mg/dL [facility] Comment: Interpretive Data Fasting glucose >/= [...] 2022. Calcium 9.1 8.5 - 10.3 mg/dL [facility] Blood 08/21/2024 12:3 5 AM RECORD PRESS OPERATOR 08/21/2024 12:40 AM RECORD PRESS OPERATOR Magalis MARQUES LAB BLOOD ORDERABLE S Final Result Performing Organization Address City/[facility]/ZIP Co de Phone Number [facility] [address] Department [place] [address] * Streptococcus Group A PCR Throat (08/20/2024 9:19 AM RECORD PRESS OPERATOR) Pathologist [facility] Strep A DNA Not Detected Not Detected Comment: This test is performed using the [employer] Xpert Group A Streptococcal Assay. This is [...] the performing laboratory. Throat 08/20/2024 9:19 AM RECORD PRESS OPERATOR 08/20/2024 9:22 AM RECORD PRESS OPERATOR Fei Murray MD LAB MICROBIOLOGY - GENERAL ORDERABLES Final Result Performing Organization Address City/[facility]/ZIP Co de Phone Number [facility] [address] Department [place] [address] [facility] * Respiratory pathogen panel Nasopharyngeal (08/20/2024 9:19 AM RECORD PRESS OPERATOR) Pathologist [facility] Influenza A RNA Not Detected Not Detected Influenza B RNA Not Detected Not Detected [facility] RSV RNA Not Detected Not Detected [facility] COVID-19 RNA Not Detected Not Detected [facility] Coronavirus 229E RNA Not Detected Not Detected [facility] Coronavirus HKU1 RNA Not Detected Not Detected [facility] Coronavirus NL63 RNA Not Detected Not Detected [facility] Coronavirus OC43 RNA Not Detected Not Detected [facility] Adenovirus DNA Not Detected Not Detected [facility] Metapneumovirus RNA Not Detected Not Detected [facility] Rhinovirus/Enterov irus RNA Not Detected Not Detected [facility] Parainfluenza 1 RNA Not Detected Not Detected [facility] Parainfluenza 2 RNA Not Detected Not Detected [facility] Parainfluenza 3 RNA Not Detected Not Detected [facility] Parainfluenza 4 RNA Not Detected Not Detected [facility] B. pertussis DNA Not Detected Not Detected [facility] B. parapertussis DNA Not Detected Not Detected [facility] C. pneumoniae DNA Not Detected Not Detected [facility] M. pneumoniae DNA Not Detected Not Detected [facility] Comment: Interpretive Data The Auth0 FilmArray Respiratory Panel (RP2.1) assay is a [...] assay has FDA clearance for testing of OVERHAULER HELPER swabs. The performance characteristics of this assay have been determined by [facility]. Current interpretive data was last revised on 2021. Nasopharyngeal 08/20/2024 9: 19 AM RECORD PRESS OPERATOR 08/20/2024 9:22 AM RECORD PRESS OPERATOR Narrative [facility] - 08/20/2024 10:22 AM RECORD PRESS OPERATOR Is the Patient experiencing symptoms consistent with COVID?->Yes Surveillance testing for transplant patient?->No Fei Murray MD LAB MICROBIOLOGY - GENERAL ORDERABLES Final Result Performing Organization Address City/State/[facility] Co de Phone Number [facility] [address] Department [place] [address] * (ABNORMAL) D-dimer, quantitative (08/15/2024 1:08 AM RECORD PRESS OPERATOR) D-Dimer 647(H) <=499 ng/mL FEU Comment: Interpretive [...] revised on 2019. Blood 08/15/2024 1:08 AM RECORD PRESS OPERATOR 08/15/2024 1:11 AM RECORD PRESS OPERATOR Maddison Muhammad [employer] LAB BLOOD ORDERABLES Final Resul t Performing Organization Address City/State/[facility] Co de Phone Number [facility] [address] [facility] Department of [employer] [place] [address] * eGFR (08/14/2024 9:59 PM RECORD PRESS OPERATOR) eGFR >90 >=60 mL/min/1. 73 m2 Comment: [...] last reviewed 2021. Blood 08/14/2024 9:59 PM RECORD PRESS OPERATOR 08/14/2024 10:10 PM RECORD PRESS OPERATOR us Abigail Richards MD LAB BLOOD ORDERABLES Final Result Performing Organization Address [facility] Co de Phone Number JADA [facility] [address] Department [place] [address] * Differential, auto (08/14/2024 9:59 PM RECORD PRESS OPERATOR) Neutrophil abs 3.7 1.5 - 6.5 K/cumm Imm gran abs 0.0 0.0 - 0.1 K/cumm [facility] Lymphocyte abs 2.0 0.8 - 3.3 K/cumm [facility] Monocyte abs 0.5 0.2 - 0.8 K/cumm [facility] Eosinophil abs 0.2 0.0 - 0.5 K/cumm [facility] Basophil abs 0.1 0.0 - 0.1 K/cumm JADA HANSON[facility]AN Neutrophil pct 57.5 % [facility] Comment: Interpretive Data Percent cell count reference ranges are not reported, since discordance with absolute values may lead to misinterpretation of CBC data. Current Interpretive Data was last revised on 2017. Imm gran pct 0.2 % JADA AGRAWAL Comment: Interpretive Data Percent cell count reference ranges are not reported, since discordance with absolute values may lead to misinterpretation of CBC data. Current Interpretive Data was last revised on 2017. Lymphocyte pct 30.2 % [facility] Comment: Interpretive Data Percent cell count reference ranges are not reported, since discordance with absolute values may lead to misinterpretation of CBC data. Current Interpretive Data was last revised on 2017. Monocyte pct 7.6 % [facility] Comment: Interpretive Data Percent cell count reference ranges are not reported, since discordance with absolute values may lead to misinterpretation of CBC data. Current Interpretive Data was last revised on 2017. Eosinophil pct 3.4 % [facility] Comment: Interpretive Data Percent cell count reference ranges are not reported, since discordance with absolute values may lead to misinterpretation of CBC data. Current Interpretive Data was last revised on 2017. Basophil pct 1.1 % [facility] Comment: Interpretive Data Percent cell count reference ranges are not reported, since discordance with absolute values may lead to misinterpretation of CBC data. Current Interpretive Data was last revised on 2017. Blood 08/14/2024 9:59 PM RECORD PRESS OPERATOR 08/14/2024 10:10 PM RECORD PRESS OPERATOR us Abigail Richards MD LAB BLOOD ORDERABLES Final Result JADA [facility] [address] [facility]. [place] [address] * Pro B-type natriuretic peptide (08/14/2024 9:59 PM RECORD PRESS OPERATOR) NT-proBNP 75 <=300 pg/mL Comment: Interpretive Comments: [...] Revised Date: 2018. Blood 08/14/2024 9:59 PM RECORD PRESS OPERATOR 08/14/2024 10:10 PM RECORD PRESS OPERATOR us Abigail Richards MD LAB BLOOD ORDERABLES Final Result [facility] [address] [facility]. Department of [employer] [place] [address] * CBC with auto differential (08/14/2024 9:59 PM RECORD PRESS OPERATOR) Pathologist [facility] WBC 6.5 3.8 - 9.9 K/cumm Hgb 13.3 13.0 - 17.5 g/dL JADA [facility] Hct 39.8 38.9 - 50.3 % JADA [facility] Plt 218 150 - 400 K/cumm [facility] MPV 10.0 9.1 - 12.3 fL [facility] RBC 4.49 4.30 - 5.80 M/cumm [facility] MCV 88.6 81.3 - 96.4 fL [facility] MCH 29.6 27.1 - 33.3 pg [facility] MCHC 33.4 32.3 - 35.7 g/dL [facility] RDW CV 12.7 11.1 - 14.9 % [facility] RDW SD 41.1 35.7 - 48.1 fL [facility] NRBC abs 0.00 0.00 - 0.01 K/cumm [facility] Blood (Blood, Venous) 08/14/2024 9:59 PM RECORD PRESS OPERATOR 08/14/2024 10:10 PM RECORD PRESS OPERATOR Abigail Richards MD LAB BLOOD ORDERABLES Final Result Performing Organization Address [facility] de Phone Number [facility] [address] [facility] [employer] [place] [address] * Lipase (08/14/2024 9:59 PM RECORD PRESS OPERATOR) [facility] Lipase 50 10 - 99 Units/L Blood (Blood, Venous) 08/14/2024 9:59 PM RECORD PRESS OPERATOR 08/14/2024 10:10 PM RECORD PRESS OPERATOR Abigail Richards MD LAB BLOOD ORDERABLES Final Result Performing Organization Address [facility] de Phone Number [facility] [address] [facility] [employer] [place], [place] [id number] * (ABNORMAL) Comprehensive metabolic panel (08/14/2024 9:59 PM RECORD PRESS OPERATOR) [facility] Sodium 139 135 - 145 mmol/L Potassium, pl 3.9 3.3 - 4.9 mmol/L [facility] Chloride 101 97 - 110 mmol/L [facility] CO2 27 22 - 32 mmol/L [facility] [...] Units/L [facility] Blood 08/14/2024 9:59 PM RECORD PRESS OPERATOR 08/14/2024 10:10 PM RECORD PRESS OPERATOR us Abigail Richards MD LAB BLOOD ORDERABLES Final Result [facility] [address] [facility]. [place] [address] * TRANSTHORACIC ECHO (TTE) COMPLETE W DOPPLER/CF WO CONTRAST (08/14/2024 11:39 AM RECORD PRESS OPERATOR) LV EF 55-60 % CONS SCIMAGE Anatomical Region Laterality Modality Ultrasound 08/14/2024 10:0 7 AM RECORD PRESS OPERATOR Narrative 08/14/2024 11:49 AM RECORD PRESS OPERATOR [facility] [address] [place] [address] ECHOCARDIOGRAM Patient Name: LISA AZAR : 1980 (43y 11m) Gender: M Study Date: 08/14/2024 10:07:30 AM Ht(Inch): 68 Wt(Lb): 173.06 BSA: 1.94 Box Person: NINFA Location: [address] Order Provider: PHOEBE ADKINS BMI: 26.31 [...] Jerel Ramirez MD PhD 08/14/2024 11:48:00 AM RECORD PRESS OPERATOR Procedure Note Jerel Ramirez MD PhD - 08/14/2024 [place] [id number] [place] [address] ECHOCARDIOGRAM Patient Name: LISA AZAR : 1980 (43y 11m) Gender: M Study Date: 08/14/2024 10:07:30 AM Ht(Inch): 68 Wt(Lb): 173.06 BSA: 1.94 Box Person: NINFA Location: [address] Order Provider: PHOEBE ADKINS BMI: 26.31 [...] Jerel Ramirez MD PhD 08/14/2024 11:48:00 AM RECORD PRESS OPERATOR us Phoebe Adknis MD CV ECHO PROCEDURES Final Result * eGFR (08/13/2024 5:30 AM RECORD PRESS OPERATOR) eGFR >90 >=60 mL/min/1. 73 m2 Comment: [...] last reviewed 2021. Blood 08/13/2024 5:30 AM RECORD PRESS OPERATOR 08/13/2024 6:25 AM RECORD PRESS OPERATOR us Phoebe Adkins MD LAB BLOOD ORDERABLES Final Resul t [facility] [address] Department [place] [address] * (ABNORMAL) CBC without differential (08/13/2024 5:30 AM RECORD PRESS OPERATOR) WBC 5.7 3.8 - 9.9 K/cumm Hgb 11.9(L) 13.0 - 17.5 g/dL [facility] Hct 36.4(L) 38.9 - 50.3 % [facility] Plt 186 150 - 400 K/cumm [facility] MPV 10.6 9.1 - 12.3 fL [facility] RBC 4.01(L) 4.30 - 5.80 M/cumm [facility] MCV 90.8 81.3 - 96.4 fL [facility] MCH 29.7 27.1 - 33.3 pg [facility] MCHC 32.7 32.3 - 35.7 g/dL [facility] RDW CV 13.0 11.1 - 14.9 % [facility] RDW SD 43.0 35.7 - 48.1 fL [facility] NRBC abs 0.00 0.00 - 0.01 K/cumm [facility] Blood 08/13/2024 5:30 AM RECORD PRESS OPERATOR 08/13/2024 6:25 AM RECORD PRESS OPERATOR us Phoebe Adkins MD LAB BLOOD ORDERABLES Final Resul t Performing Organization Address City/[facility] Co de Phone Number [facility] [address] [facility] [employer] [place] [address] * Phosphorus (08/13/2024 5:30 AM RECORD PRESS OPERATOR) Phosphorus, pl 2.9 2.3 - 4.5 mg/dL Blood 08/13/2024 5:30 AM RECORD PRESS OPERATOR 08/13/2024 6:25 AM RECORD PRESS OPERATOR us Phoebe Adkins MD LAB BLOOD ORDERABLES Final Resul t Performing Organization Address [facility] de Phone Number [facility] [address] [facility] [employer] [place] [address] * Magnesium (08/13/2024 5:30 AM RECORD PRESS OPERATOR) Magnesium 1.9 1.4 - 2.5 mg/dL Blood 08/13/2024 5:30 AM RECORD PRESS OPERATOR 08/13/2024 6:25 AM RECORD PRESS OPERATOR us Phoebe Adkins MD LAB BLOOD ORDERABLES Final Resul t Performing Organization Address [facility] Co de Phone Number [facility] [address] Department [employer] [place] [address] * Ferritin (08/13/2024 5:30 AM RECORD PRESS OPERATOR) Ferritin 39 30 - 400 ng/mL Blood 08/13/2024 5:30 AM RECORD PRESS OPERATOR 08/13/2024 6:24 AM RECORD PRESS OPERATOR us Phoebe Adkins MD LAB BLOOD ORDERABLES Final Resul t Performing Organization Address City/[facility] Co de Phone Number [facility] [address] Department [employer] [place] [address] * (ABNORMAL) Hepatic function panel (08/13/2024 5:30 AM RECORD PRESS OPERATOR) Bilirubin, total 0.4 0.1 - 1.2 mg/dL Bilirubin, direct <0.2 0.1 - 0.3 mg/dL [facility] Protein, pl 5.9(L) 6.5 - 8.5 g/dL [facility] Albumin 3.5 3.5 - 5.0 g/dL [facility] Alk phos 71 40 - 130 Units/L [facility] ALT 200(H) 7 - 55 Units/L [facility] AST 101(H) 10 - 50 Units/L [facility] Blood 08/13/2024 5:30 AM RECORD PRESS OPERATOR 08/13/2024 6:25 AM RECORD PRESS OPERATOR us Russ Adkins MD LAB BLOOD ORDERABLES Final Resul t [facility] [address] Department [place] [address] * (ABNORMAL) Basic metabolic panel (08/13/2024 5:30 AM RECORD PRESS OPERATOR) Pathologist [facility] Sodium 140 135 - 145 mmol/L Potassium, pl 4.1 3.3 - 4.9 mmol/L [facility] Chloride 106 97 - 110 mmol/L [facility] CO2 24 22 - 32 mmol/L [facility] Anion gap 10 2 - 15 mmol/L [facility] BUN 23 6 - 25 mg/dL [facility] Creatinine 0.82 0.80 - 1.30 mg/dL [facility] Glucose 87 70 - 199 mg/dL [facility] Comment: Interpretive Data Fasting glucose >/= 126 [...] 2022. Calcium 8.1(L) 8.5 - 10.3 mg/dL [facility] Blood 08/13/2024 5:30 AM RECORD PRESS OPERATOR 08/13/2024 6:25 AM RECORD PRESS OPERATOR Phoebe Adkins MD LAB BLOOD ORDERABLES Final Resul t [facility] [address] Department [place] [address] * Drugs of Abuse Screen, Urine with Reflex Confirmation (08/13/2024 12:15 AM RECORD PRESS OPERATOR) Amphetamine, ur Not Detected CutOff 500ng/mL Comment: Interpretive Data - Amphetamines: Samples containing greater than 500 ng/mL d-methamphetamine or other cross-reacting amphetamine compounds are reported as positive. Amphetamine immunoassays are subject to significant false positive rates due to cross-reactivity of non-amphetamine drugs. Confirmatory testing required for definitive results. Current Interpretive Data was last reviewed 2023. Barbiturates, ur Not Detected CutOff 200ng/mL [facility] Comment: Interpretive Data - Barbiturates: Samples containing greater than 200 ng/mL secobarbital or other cross-reacting barbiturate compounds are reported as positive. False positive and false negative results are possible. Confirmatory testing required for definitive results. Current Interpretive Data was last reviewed 2023. Benzodiazepines, ur Not Detected CutOff 100ng/mL [facility] Comment: Interpretive Data - Benzodiazepines: Samples containing greater than 100 ng/mL nordiazepam or other cross-reacting compounds are reported as positive. False positive and false negative results are possible. Confirmatory testing required for definitive results. Current Interpretive Data was last reviewed 2023. Cannabinoids, ur Not Detected CutOff 50 ng/mL [facility] Comment: Interpretive Data - Cannabinoids: Samples containing greater than 50 ng/mL delta-9 THC -COOH or other cross- reacting compounds are reported as positive. False positive and false negative results are possible. Confirmatory testing required for definitive results. Current Interpretive Data was last reviewed 2023. Cocaine, ur Not Detected CutOff 150ng/mL [facility] Comment: Interpretive Data - Cocaine: Samples containing greater than 150 ng/mL benzoylecgonine or other cross- reacting compounds are reported as positive. False positive and false negative results are possible. Confirmatory testing required for definitive results. Current Interpretive Data was last reviewed 2023. Fentanyl, Ur Not Detected CutOff 5 ng/mL [facility] Comment: Interpretive Data - Fentanyl: Samples containing greater than 5 ng/mL norfentanyl, fentanyl, or other cross-reacting fentanyl compounds are reported as positive. False positive and false negative results are possible. Confirmatory testing required for definitive results. Current Interpretive Data was last reviewed 2023. Methadone, ur Not Detected CutOff 300ng/mL [facility] Comment: Interpretive Data - Methadone: Samples containing greater than 300 ng/mL d,l-methadone or other cross-reacting compounds are reported as positive. False positive and false negative results are possible. Confirmatory testing required for definitive results. Current Interpretive Data was last reviewed 2023. Opiates, ur Not Detected CutOff 300ng/mL [facility] Comment: Interpretive Data - Opiates: Samples containing greater than 300 ng/mL morphine or other cross-reacting compounds are reported as positive. False positive and false negative results are possible. Confirmatory testing required for definitive results. Current Interpretive Data was last reviewed 2023. Oxycodone, ur Not Detected CutOff 100ng/mL [facility] Comment: Interpretive Data - Oxycodone: Samples containing greater than 100 ng/mL oxycodone or other cross-reacting compounds are reported as positive. False positive and false negative results are possible. Confirmatory testing required for definitive results. Current Interpretive Data was last reviewed 2023. Phencyclidine, ur Not Detected CutOff 25 ng/mL [facility] Comment: Interpretive Data - Phencyclidine: Samples containing greater than 25 ng/mL phencyclidine or other cross-reacting compounds are reported as positive. False positive and false negative results are possible. Confirmatory testing required for definitive results. Current Interpretive Data was last reviewed 2023. Urine Creatinine 90 mg/dL [facility] Comment: Interpretive Data Urine Creatinine: < 10 mg/dL is extremely dilute = or > 10 but < 20 mg/dL is dilute = or > 20 mg/dL is normal Current Interpretive Data was last revised on 2017. Urine 08/13/2024 12:1 5 AM RECORD PRESS OPERATOR 08/13/2024 12:26 AM RECORD PRESS OPERATOR Narrative [facility] - 08/13/2024 12:54 AM RECORD PRESS OPERATOR Drug of Abuse screening is performed by immunoassay for medical purposes only. This is not to be used for Pain Management purposes. If Detected, confirmation testing will be performed for Amphetamines, Cocaine, Fentanyl, Methadone, Opiates, Oxycodone or Phencyclidine. us Batsheva Portillo MD LAB URINE ORDERABLES Final Result [facility] [address] Department [place] [address] * (ABNORMAL) Urinalysis reflex to microscopic and culture Urine (08/13/2024 12:15 AM RECORD PRESS OPERATOR) Color, ur Yellow Yellow Clarity, ur Clear Clear [facility] Specific gravity, ur >1.050(H) 1.003 - 1.030 [facility] pH, urine 6.5 [facility] Comment: Interpretive Data U rine pH is affected by diet, medications, systemic acid-base disturbances, and renal tubular function. pH may affect urinary stone formation. For example, urine pH below 6.0 may help reduce the tendency for calcium phosphate stones and pH greater than 6.0 may reduce the tendency for uric acid stone formation. Source: [facility] Current Interpretive Data was last revised on 2017 Protein, ur ql Negative Negative [facility] Glucose, ur ql Negative Negative [facility] Ketones, ur Negative Negative [facility] Bilirubin, ur Negative Negative [facility] Blood, ur Negative Negative [facility] Urobilinogen, ur <2.0 <2.0 mg/dL [facility] Nitrite, ur Negative Negative [facility] Leukocyte esterase, ur Negative Negative [facility] UA reflex comment Reflex conditions for microscopic UA and culture not met. [facility] Urine 08/13/2024 12:1 5 AM RECORD PRESS OPERATOR 08/13/2024 12:15 AM RECORD PRESS OPERATOR us Batsheva Portillo MD LAB MICROBIOLOGY - GENERAL ORDERABLES Final Result [facility] [address] Department [place] [address] * CT Chest PE (CTA) W Contrast (08/12/2024 11:48 PM RECORD PRESS OPERATOR) Anatomical Region Laterality Modality Body N/A Computed Tomogra phy 08/12/2024 11:4 3 PM RECORD PRESS OPERATOR Impressions 08/13/2024 9:24 AM RECORD PRESS OPERATOR No pulmonary embolism. Electronically signed by: Tari Gavin M.D. Narrative 08/13/2024 9:24 AM RECORD PRESS OPERATOR EXAMINATION: CT CHEST PE (CTA) W CONTRAST [...] Lower Extremity Bilateral Complete (08/12/2024 11:46 PM RECORD PRESS OPERATOR) Anatomical Region Laterality Modality Vascular Bilateral Ultrasound 08/13/2024 12:0 9 PM RECORD PRESS OPERATOR Impressions 08/13/2024 12:09 PM RECORD PRESS OPERATOR 1. No evidence of DVT in the lower extremities bilaterally. 2. Pulsatile venous flow bilaterally. This may suggest increased intravascular volume or right-sided valvular heart disease. Clinical correlation suggested. 3. Prominent lymph nodes in both groins. Electronically signed by: Lv Smart M.D. Narrative 08/13/2024 12:09 PM RECORD PRESS OPERATOR Lower Extremity Vein Duplex Bilateral DATE: 08/12/2024 [...] ult * US RUQ (08/12/2024 11:38 PM RECORD PRESS OPERATOR) Anatomical Region Laterality Modality Abdomen N/A Ultrasound 08/12/2024 10:4 5 PM RECORD PRESS OPERATOR Impressions 08/13/2024 11:42 AM RECORD PRESS OPERATOR 1. Trace perihepatic ascites. 2. Pulsatile portal venous flow and dilated inferior vena cava, which may represent elevated right heart pressures and/or tricuspid regurgitation. For the purposes of production quality analyst, this study was initially interpreted by teleradiology. There is no significant discrepancy. Electronically signed by: Saeid Baker MD, PHD Narrative 08/13/2024 11:42 AM RECORD PRESS OPERATOR EXAMINATION: LIMITED ABDOMINAL SONOGRAM HISTORY: Elevated liver [...] and/or tricuspid regurgitation. For the purposes of production quality analyst, this study was initially interpreted by teleradiology. There is no significant discrepancy. Electronically signed by: Saeid Baker MD, PHD us Batsheva Portillo MD IMG US PROCEDURES Final Res ult * D-Dimer - Add on lab test (08/12/2024 10:29 PM RECORD PRESS OPERATOR) Acceptable Yes Blood 08/12/2024 10:2 9 PM RECORD PRESS OPERATOR 08/12/2024 10:29 PM RECORD PRESS OPERATOR Narrative [facility] - 08/12/2024 10:29 PM RECORD PRESS OPERATOR Name of Test->D-Dimer us Batsheva Portillo MD LAB BLOOD ORDERABLES Final Result [facility] [address] Department [place] [address] * CT Head and Cervical Spine WO Contrast (08/12/2024 10:20 PM RECORD PRESS OPERATOR) Anatomical Region Laterality Modality Head and Neck N/A Computed Tomogra phy 08/12/2024 10:1 3 PM RECORD PRESS OPERATOR Impressions 08/13/2024 7:[address] HEAD: No acute intracranial abnormality or calvarial fracture. CT CERVICAL SPINE: 1. No acute osseous abnormality. 2. Multilevel cervical spondylosis; most pronounced at C5-C6 and C6-C7. For the purposes of production quality analyst, this study was initially interpreted by teleradiology. There is no significant discrepancy. Electronically signed by: Zaheer Navas M.D. Narrative 08/13/2024 7:02 AM RECORD PRESS OPERATOR EXAMINATION: 1. CT head without contrast 2. [...] C5-C6 and C6-C7. For the purposes of production quality analyst, this study was initially interpreted by teleradiology. There is no significant discrepancy. Electronically signed by: Zaheer Navas M.D. Batsheva Portillo MD IMG CT PROCEDURES Final Res ult * Protime-INR (08/12/2024 10:05 PM RECORD PRESS OPERATOR) PT 12.8 9.7 - 13.0 sec INR 1.18 0.90 - 1.20 [facility] Comment: Interpretive data Oral anticoagulant therapeutic ranges: Venous thromboembolism prophylaxis or treatment: 2.0-3.0 CARDIOLOGY Standard range: 2.0-3.0 High-intensity range: 2.5-3.5 Refer to indication-specific guidelines for appropriate target ranges for prosthetic heart valve replacement. Current interpretive data was last revised on 2019. Blood 08/12/2024 10:0 5 PM RECORD PRESS OPERATOR 08/12/2024 10:29 PM RECORD PRESS OPERATOR Batsheva Portillo MD LAB BLOOD ORDERABLES Final Result [facility] [address] Department [place] [address] * (ABNORMAL) D-dimer, quantitative (08/12/2024 10:05 PM RECORD PRESS OPERATOR) D-Dimer 1,783(H) <=499 ng/mL FEU Comment: Interpretive [...] on 2019. Blood 08/12/2024 10:0 5 PM RECORD PRESS OPERATOR 08/12/2024 10:05 PM RECORD PRESS OPERATOR Batsheva Portillo MD LAB BLOOD ORDERABLES Final Result Performing Organization Address [facility] Co de Phone Number [facility] [address] [facility] [employer] [place] [address] * Folate - Add on lab test (08/12/2024 9:53 PM RECORD PRESS OPERATOR) Acceptable Yes Blood 08/12/2024 9:53 PM RECORD PRESS OPERATOR 08/12/2024 9:53 PM RECORD PRESS OPERATOR Narrative [facility] - 08/12/2024 9:54 PM RECORD PRESS OPERATOR Name of Test->Folate Batsheva Portillo MD LAB BLOOD ORDERABLES Final Result Performing Organization Address [facility] Co de Phone Number [facility] [address] [facility] [employer] [place] [address] * Vitamin B12 - Add on lab test (08/12/2024 9:53 PM RECORD PRESS OPERATOR) Acceptable Yes Blood 08/12/2024 9:53 PM RECORD PRESS OPERATOR 08/12/2024 9:54 PM RECORD PRESS OPERATOR Narrative [facility] - 08/12/2024 9:54 PM RECORD PRESS OPERATOR Name of Test->Vitamin B12 Batsheva Portillo MD LAB BLOOD ORDERABLES Final Result Performing Organization Address [facility] Co de Phone Number [facility] [address] [facility] [employer] [place] [address] * Iron profile - Add on lab test (08/12/2024 9:53 PM RECORD PRESS OPERATOR) Acceptable Yes Blood 08/12/2024 9:53 PM RECORD PRESS OPERATOR 08/12/2024 9:54 PM RECORD PRESS OPERATOR Narrative [facility] - 08/12/2024 9:54 PM RECORD PRESS OPERATOR Name of Test->Iron profile Batsheva Portillo MD LAB BLOOD ORDERABLES Final Result Performing Organization Address [facility] de Phone Number [facility] [address] [facility] [employer] [place], [place] [id number] * NT-Pro BNP - Add on lab test (08/12/2024 9:53 PM RECORD PRESS OPERATOR) Acceptable Yes Blood 08/12/2024 9:53 PM RECORD PRESS OPERATOR 08/12/2024 9:53 PM RECORD PRESS OPERATOR Narrative [facility] - 08/12/2024 9:54 PM RECORD PRESS OPERATOR Name of Test->NT-Pro BNP us Batsheva Portillo MD LAB BLOOD ORDERABLES Final Result Performing Organization Address [facility] de Phone Number [facility] [address] [facility] [employer] [place], [place] [id number] * TSH reflex Free T4 - Add on lab test (08/12/2024 9:53 PM RECORD PRESS OPERATOR) Acceptable Yes Blood 08/12/2024 9:53 PM RECORD PRESS OPERATOR 08/12/2024 9:53 PM RECORD PRESS OPERATOR Narrative [facility] - 08/12/2024 9:54 PM RECORD PRESS OPERATOR Name of Test->TSH reflex Free T4 us Batsheva Portillo MD LAB BLOOD ORDERABLES Final Result Performing Organization Address [facility] de Phone Number [facility] [address] Department [employer] [place], [place] [phone] * Phosphorus - Add on lab test (08/12/2024 9:53 PM RECORD PRESS OPERATOR) Acceptable Yes Blood 08/12/2024 9:53 PM RECORD PRESS OPERATOR 08/12/2024 9:53 PM RECORD PRESS OPERATOR Narrative [facility] - 08/12/2024 9:55 PM RECORD PRESS OPERATOR Name of Test->Phosphorus us Batsheva Portillo MD LAB BLOOD ORDERABLES Final Result Performing Organization Address [facility] Co de Phone Number [facility] [address] Department of [employer] [place] [address] * Magnesium - Add on lab test (08/12/2024 9:53 PM RECORD PRESS OPERATOR) Pathologist [facility] Acceptable Yes Blood 08/12/2024 9:53 PM RECORD PRESS OPERATOR 08/12/2024 9:53 PM RECORD PRESS OPERATOR Narrative [facility] - 08/12/2024 9:55 PM RECORD PRESS OPERATOR Name of Test->Magnesium Batsheva Portillo MD LAB BLOOD ORDERABLES Final Result Performing Organization Address [facility] Co de Phone Number [facility] [address] Department [employer] [place] [address] * Troponin T high-sensitivity 2-hour (08/12/2024 9:52 PM RECORD PRESS OPERATOR) [facility] Trop T hs 6 <=22 ng/L Comment: Interpretive Data For further hscTnT resources including the diagnostic algorithm and an aid in interpretation, copy and paste this link: https://nrl.testcatalog.org/show/hsTrop Current Interpretive Data last revised 2020. Trop T hs delta -1 ng/L [facility] Trop T hs interp Insignificant [facility] Blood 08/12/2024 9:52 PM RECORD PRESS OPERATOR 08/12/2024 10:30 PM RECORD PRESS OPERATOR us Ace Gonzales MD LAB BLOOD ORDERABLES F inal Result Performing Organization Address [facility]/ZIP Co de Phone Number [facility] [address] Department of [employer] [place], [place] [id number] * Ethanol (08/12/2024 9:52 PM RECORD PRESS OPERATOR) [facility] Ethanol <10 <=10 mg/dL Comment: Interpretive Data Legal limit of intoxication > or = 80 mg/dL Levels > or = 400 mg/dL are potentially TOXIC. Current interpretive data was last revised on 2018. Blood 08/12/2024 9:52 PM RECORD PRESS OPERATOR 08/12/2024 10:29 PM RECORD PRESS OPERATOR us Batsheva Portillo MD LAB BLOOD ORDERABLES Final Result Performing Organization Address [facility] Co de Phone Number [facility] [address] Department [place] [address] * Hepatitis panel, acute Blood (08/12/2024 9:13 PM RECORD PRESS OPERATOR) Pathologist [facility] Hep A IgM Nonreactive Nonreactive Comment: Interpretive Data: If Hep A IgM Ab is reported as Equivocal, a new sample should be drawn in two weeks for testing. Current interpretive data was last revised on 19. Hep B core IgM Nonreactive Nonreactive [facility] Comment: Interpretive Data If HepB Core IgM Ab is reported as Equivocal, a new sample should be drawn in two weeks for testing. Current interpretive data was last revised on 19. Hep C Ab Nonreactive Nonreactive [facility] Comment: Interpretive Data Nonreactive: Antibodies to HCV [...] last revised on 2019. HepBsAg Nonreactive Nonreactive [facility] Blood 08/12/2024 9:13 PM RECORD PRESS OPERATOR 08/12/2024 9:17 PM RECORD PRESS OPERATOR us Batsheva Portillo MD LAB MICROBIOLOGY - GENERAL ORDERABLES Final Result Performing Organization Address [facility]/ZIP Co de Phone Number [facility] [address] Department [place] [address] * Acetaminophen level (08/12/2024 9:13 PM RECORD PRESS OPERATOR) Pathologist [facility] Acetaminophen <5 <=5 mcg/mL Comment: Interpretive Data Significant hepatic injury may occur and treatment with n-acetyl cysteine is generally recommended if the acetaminophen level exceeds: 150 mcg/mL at 4 hours after ingestion 75 mcg/mL at 8 hours after ingestion 38 mcg/mL at 12 hours after ingestion 19 mcg/mL at 16 hours after ingestion Consult toxicology or poison control ([phone]) for unknown ingestion time. Current interpretive data was last revised 2023. Blood 08/12/2024 9:13 PM RECORD PRESS OPERATOR 08/12/2024 9:17 PM RECORD PRESS OPERATOR us Batsheva Portillo MD LAB BLOOD ORDERABLES Final Result Performing Organization Address [facility] Co de Phone Number [facility] [address] [place] [address] * Troponin T high-sensitivity series (baseline, 2hr, 4hr, 6hr) (08/12/2024 8:08 PM RECORD PRESS OPERATOR) Pathologist [facility] Trop T hs 7 <=22 ng/L Comment: Interpretive Data For further hscTnT resources including the diagnostic algorithm and an aid in interpretation, copy and paste this link: https://nrl.testcatalog.org/show/hsTrop Current Interpretive Data last revised 2020. Blood 08/12/2024 8:08 PM RECORD PRESS OPERATOR 08/12/2024 8:23 PM RECORD PRESS OPERATOR us Batsheva Portillo MD LAB BLOOD ORDERABLES Final Result Performing Organization Address [facility] Co de Phone Number [facility] [address] Department [employer] [place], [place] [phone] * eGFR (08/12/2024 8:08 PM RECORD PRESS OPERATOR) Pathologist [facility] eGFR >90 >=60 mL/min/1. 73 m2 [...] last reviewed 2021. Blood 08/12/2024 8:08 PM RECORD PRESS OPERATOR 08/12/2024 8:23 PM RECORD PRESS OPERATOR us Batsheva Portillo MD LAB BLOOD ORDERABLES Final Result [facility] [address] [place] [address] * Differential, auto (08/12/2024 8:08 PM RECORD PRESS OPERATOR) Neutrophil abs 3.5 1.5 - 6.5 K/cumm Imm gran abs 0.0 0.0 - 0.1 K/cumm [facility] Lymphocyte abs 2.2 0.8 - 3.3 K/cumm [facility] Monocyte abs 0.5 0.2 - 0.8 K/cumm [facility] Eosinophil abs 0.3 0.0 - 0.5 K/cumm [facility] Basophil abs 0.1 0.0 - 0.1 K/cumm [facility] Neutrophil pct 54.5 % [facility] Comment: Interpretive Data Percent cell count reference ranges are not reported, since discordance with absolute values may lead to misinterpretation of CBC data. Current Interpretive Data was last revised on 2017. Imm gran pct 0.3 % [facility] Comment: Interpretive Data Percent cell count reference ranges are not reported, since discordance with absolute values may lead to misinterpretation of CBC data. Current Interpretive Data was last revised on 2017. Lymphocyte pct 33.3 % [facility] Comment: Interpretive Data Percent cell count reference ranges are not reported, since discordance with absolute values may lead to misinterpretation of CBC data. Current Interpretive Data was last revised on 2017. Monocyte pct 6.9 % [facility] Comment: Interpretive Data Percent cell count reference ranges are not reported, since discordance with absolute values may lead to misinterpretation of CBC data. Current Interpretive Data was last revised on 2017. Eosinophil pct 4.1 % [facility] Comment: Interpretive Data Percent cell count reference ranges are not reported, since discordance with absolute values may lead to misinterpretation of CBC data. Current Interpretive Data was last revised on 2017. Basophil pct 0.9 % [facility] Comment: Interpretive Data Percent cell count reference ranges are not reported, since discordance with absolute values may lead to misinterpretation of CBC data. Current Interpretive Data was last revised on 2017. Blood 08/12/2024 8:08 PM RECORD PRESS OPERATOR 08/12/2024 8:23 PM RECORD PRESS OPERATOR us Batsheva Portillo MD LAB BLOOD ORDERABLES Final Result [facility] [address] [place] [address] * Pro B-type natriuretic peptide (08/12/2024 8:08 PM RECORD PRESS OPERATOR) NT-proBNP 60 <=300 pg/mL Comment: Interpretive Comments: [...] Revised Date: 2018. Blood 08/12/2024 8:08 PM RECORD PRESS OPERATOR 08/12/2024 8:23 PM RECORD PRESS OPERATOR us Batsheva Portillo MD LAB BLOOD ORDERABLES Final Result Performing Organization Address [facility] Co de Phone Number [facility] [address] Department [employer] [place] [address] * Thyroid Function [place] (08/12/2024 8:08 PM RECORD PRESS OPERATOR) Pathologist [facility] TSH 1.43 0.30 - 4.20 mcIUnit/mL Blood 08/12/2024 8:08 PM RECORD PRESS OPERATOR 08/12/2024 8:23 PM RECORD PRESS OPERATOR Batsheva Portlilo MD LAB BLOOD ORDERABLES Final Result Performing Organization Address [facility] de Phone Number [facility] [address] [facility] [employer] [place] [address] * (ABNORMAL) Iron profile w/ IBC (08/12/2024 8:08 PM RECORD PRESS OPERATOR) Iron 46(L) 50 - 150 mcg/dL TIBC 296 250 - 400 mcg/dL [facility] Transferrin saturation 16(L) 20 - 50 % [facility] Blood 08/12/2024 8:08 PM RECORD PRESS OPERATOR 08/12/2024 8:23 PM RECORD PRESS OPERATOR us Batsheva Portillo MD LAB BLOOD ORDERABLES Final Result Performing Organization Address [facility]/ZIP Co de Phone Number [facility] [address] Department of [employer] [place] [address] * (ABNORMAL) CBC with auto differential (08/12/2024 8:08 PM RECORD PRESS OPERATOR) [facility] WBC 6.5 3.8 - 9.9 K/cumm Hgb 12.5(L) 13.0 - 17.5 g/dL [facility] Hct 38.3(L) 38.9 - 50.3 % [facility] Plt 207 150 - 400 K/cumm [facility] MPV 10.1 9.1 - 12.3 fL [facility] RBC 4.22(L) 4.30 - 5.80 M/cumm [facility] MCV 90.8 81.3 - 96.4 fL [facility] MCH 29.6 27.1 - 33.3 pg [facility] MCHC 32.6 32.3 - 35.7 g/dL [facility] RDW CV 13.0 11.1 - 14.9 % [facility] RDW SD 43.2 35.7 - 48.1 fL [facility] NRBC abs 0.00 0.00 - 0.01 K/cumm [facility] Blood (Blood, Venous) 08/12/2024 8:08 PM RECORD PRESS OPERATOR 08/12/2024 8:23 PM RECORD PRESS OPERATOR us Batsheva Portillo MD LAB BLOOD ORDERABLES Final Result [facility] [address] Department of [employer] [place] [address] * Phosphorus (08/12/2024 8:08 PM RECORD PRESS OPERATOR) Pathologist [facility] Phosphorus, pl 3.1 2.3 - 4.5 mg/dL Blood 08/12/2024 8:08 PM RECORD PRESS OPERATOR 08/12/2024 8:23 PM RECORD PRESS OPERATOR us Batsheva Portillo MD LAB BLOOD ORDERABLES Final Result [facility] [address] [facility] [employer] [place] [address] * Magnesium (08/12/2024 8:08 PM RECORD PRESS OPERATOR) Magnesium 2.0 1.4 - 2.5 mg/dL Blood 08/12/2024 8:08 PM RECORD PRESS OPERATOR 08/12/2024 8:23 PM RECORD PRESS OPERATOR us Batsheva Portillo MD LAB BLOOD ORDERABLES Final Result Performing Organization Address [facility] Co de Phone Number [facility] [address] [facility] [employer] [place] [address] * Folate (08/12/2024 8:08 PM RECORD PRESS OPERATOR) Folic acid 7.6 >=5.0 ng/mL Blood 08/12/2024 8:08 PM RECORD PRESS OPERATOR 08/12/2024 8:23 PM RECORD PRESS OPERATOR us Batsheva Portillo MD LAB BLOOD ORDERABLES Final Result Performing Organization Address [facility] Co de Phone Number [facility] [address] [facility] [employer] [place] [address] * Vitamin B12 (08/12/2024 8:08 PM RECORD PRESS OPERATOR) Vitamin B12 860 230 - 1,250 pg/mL Blood 08/12/2024 8:08 PM RECORD PRESS OPERATOR 08/12/2024 8:23 PM RECORD PRESS OPERATOR us Batsheva Portillo MD LAB BLOOD ORDERABLES Final Result Performing Organization Address [facility]/ZIP Co de Phone Number [facility] [address] [facility] [employer] [place] [address] * (ABNORMAL) Comprehensive metabolic panel (08/12/2024 8:08 PM RECORD PRESS OPERATOR) Sodium 142 135 - 145 mmol/L Potassium, pl 4.4 3.3 - 4.9 mmol/L [facility] Chloride 106 97 - 110 mmol/L [facility] CO2 27 22 - 32 mmol/L [facility] Anion gap 9 2 - 15 mmol/L [facility] BUN 29(H) 6 - 25 mg/dL [facility] Creatinine 1.02 0.80 - 1.30 mg/dL [facility] Glucose 104 70 - 199 mg/dL [facility] Comment: Interpretive Data Fasting glucose >/= 126 [...] 2022. Calcium 8.6 8.5 - 10.3 mg/dL [facility] Bilirubin, total 0.3 0.1 - 1.2 mg/dL [facility] Protein, pl 6.1(L) 6.5 - 8.5 g/dL [facility] Albumin 3.7 3.5 - 5.0 g/dL [facility] Alk phos 83 40 - 130 Units/L [facility] ALT 230(H) 7 - 55 Units/L [facility] AST 158(H) 10 - 50 Units/L [facility] Blood 08/12/2024 8:08 PM RECORD PRESS OPERATOR 08/12/2024 8:23 PM RECORD PRESS OPERATOR us Batsheva Portillo MD LAB BLOOD ORDERABLES Final Result [facility] [address] Department of Laboratories [place], [place] [id number] * XR Chest PA Lateral 2 Views (08/12/2024 7:27 PM RECORD PRESS OPERATOR) Anatomical Region Laterality Modality Body, Chest N/A Computed Radiogr aphy 08/13/2024 7:44 AM RECORD PRESS OPERATOR Impressions 08/13/2024 7:44 AM RECORD PRESS OPERATOR There is subtle airspace opacity in the right lung base which may represent pneumonia in the appropriate clinical setting. Alternatively, this may represent atelectasis. No pleural effusion. No pneumothorax. Heart size is normal. Electronically signed by: Tari Gavin M.D. Narrative 08/13/2024 7:44 AM RECORD PRESS OPERATOR EXAMINATION: XR CHEST PA LATERAL 2 VIEWS [...] * ECG 12 lead (08/12/2024 6:48 PM RECORD PRESS OPERATOR) 08/12/2024 6:48 PM RECORD PRESS OPERATOR Narrative [facility] - 08/13/2024 1:41 PM RECORD PRESS OPERATOR Vent Rate: 63 bpm RR Interval: 938 msec CA Interval: 165 msec QRS Duration: 96 msec QT Interval: 378 msec QTC Interval: 386 msec P-R-T Atlantic: 74 - 81 - 50 degrees IMPRESSION: SINUS RHYTHM POSSIBLE LEFT ATRIAL ENLARGEMENT [-0.1mV P WAVE IN V1/V2] BORDERLINE ECG Electronically Signed By: Jerel Ramirez MD PhD us Batsheva Portillo MD ECG ORDERABLES Final Resul t [facility] * XR Chest Pa Lateral 2 Views (08/11/2024 2:02 AM RECORD PRESS OPERATOR) Anatomical Region Laterality Modality Body, Chest N/A Computed Radiogr aphy 08/11/2024 3:00 AM RECORD PRESS OPERATOR Impressions 08/11/2024 9:05 AM RECORD PRESS OPERATOR Comparison radiograph from 08/08/2024. No consolidation, pleural effusion, or pneumothorax. Cardiomediastinal silhouette within normal limits. Dictated by: Julio Rooney M.D. The radiology attending physician has personally reviewed this study, and had reviewed and/or edited this written report and agrees with it. Electronically signed by: Brice Mantilla M.D. Narrative 08/11/2024 9:05 AM RECORD PRESS OPERATOR EXAMINATION: 2 view chest radiograph Procedure Note [...] sult * ECG 12-LEAD (08/11/2024 1:43 AM RECORD PRESS OPERATOR) Narrative [facility] - 08/11/2024 1:43 AM RECORD PRESS OPERATOR Johnnie Kelly MD 08/11/2024 1:44 AM ECG [...] MD ECG ORDERABLES Final Resu lt [facility] * XR Chest PA Lateral 2 Views (08/08/2024 10:42 PM RECORD PRESS OPERATOR) Anatomical Region Laterality Modality Body, Chest N/A Computed Radiogr aphy 08/08/2024 11:0 3 PM RECORD PRESS OPERATOR Impressions 08/09/2024 10:05 AM RECORD PRESS OPERATOR The current study is compared with the prior radiograph dated 09/13/2019. Mild bibasilar atelectasis. No consolidation, pleural effusion, or pneumothorax. Cardiomediastinal silhouette within normal limits. Dictated by: Chet Boogie MD The radiology attending physician has personally reviewed this study, and had reviewed and/or edited this written report and agrees with it. Electronically signed by: Steve Arce M.D. Narrative 08/09/2024 10:05 AM RECORD PRESS OPERATOR EXAMINATION: 2 view chest radiograph Procedure Note [...] CT Head WO Contrast (08/08/2024 10:34 PM RECORD PRESS OPERATOR) Anatomical Region Laterality Modality Head and Neck N/A Computed Tomogra phy 08/08/2024 10:4 4 PM RECORD PRESS OPERATOR Impressions 08/09/2024 10:54 AM RECORD PRESS OPERATOR 1. No acute intracranial process. 2. Large burden of cerumen in both external auditory canals which may be impacted. Dictated by: Juancho Marquez MD, Ph.D The radiology attending physician has personally reviewed this study, and had reviewed and/or edited this written report and agrees with it. Electronically signed by: Indio Zambrano M.D. Narrative 08/09/2024 10:54 AM RECORD PRESS OPERATOR EXAMINATION: CT head without contrast HISTORY: 43-year-old [...] Electronically signed by: Indio Zambrano M.D. us Karol Gatica MD IMG CT PROCEDURES Final Res ult * ECG 12-LEAD (08/08/2024 8:56 PM RECORD PRESS OPERATOR) Narrative [facility] - 08/08/2024 8:56 PM RECORD PRESS OPERATOR Salena Cobb MD 08/08/2024 8:57 PM ECG [...] MD ECG ORDERABLES Final Resul t [facility] * (ABNORMAL) Respiratory pathogen panel Nasopharyngeal (08/06/2024 9:59 AM RECORD PRESS OPERATOR) [facility] Influenza A RNA Not Detected Not Detected Influenza B RNA Not Detected Not Detected [facility] RSV RNA Not Detected Not Detected [facility] COVID-19 RNA Not Detected Not Detected [facility] Coronavirus 229E RNA Not Detected Not Detected [facility] Coronavirus HKU1 RNA Not Detected Not Detected [facility] Coronavirus NL63 RNA Detected(A) Not Detected [facility] Coronavirus OC43 RNA Not Detected Not Detected [facility] Adenovirus DNA Not Detected Not Detected [facility] Metapneumovirus RNA Not Detected Not Detected [facility] Rhinovirus/Enterov irus RNA Not Detected Not Detected [facility] Parainfluenza 1 RNA Not Detected Not Detected [facility] Parainfluenza 2 RNA Not Detected Not Detected [facility] Parainfluenza 3 RNA Not Detected Not Detected [facility] Parainfluenza 4 RNA Not Detected Not Detected [facility] B. pertussis DNA Not Detected Not Detected [facility] B. parapertussis DNA Not Detected Not Detected [facility] C. pneumoniae DNA Not Detected Not Detected [facility] M. pneumoniae DNA Not Detected Not Detected [facility] Nasopharyngeal 08/06/2024 9: 59 AM RECORD PRESS OPERATOR 08/06/2024 10:52 AM RECORD PRESS OPERATOR Narrative [facility] - 08/06/2024 11:43 AM RECORD PRESS OPERATOR Is the Patient experiencing symptoms consistent with COVID?->Yes Surveillance testing for transplant patient?->No Interpretive Data The Auth0 FilmArray Respiratory Panel (RP2.1) assay is a [...] assay has FDA clearance for testing of OVERHAULER HELPER swabs. The performance of additional specimen types has been assessed by the performing laboratory. The performance characteristics of this assay have been determined by [facility] Molecular Infectious Disease Laboratory. Current interpretive data was last revised on 22. El[facility] MICROBIOLOGY - GENERAL ORDE [place] Final Result [facility] Department [place] [address] from Last 3 Months Insurance [place] [address] [facility] [place] [address] [facility] [employer] [facility] Advance Directives For more information, please contact: [phone] * Full Code (Latest Code Status on File) Date Activated Date Inactivated Comments 08/13/2024 3:12 AM 08/14/2024 6:01 PM * Full Code Date Activated Date Inactivated Comments 10/28/2022 5:15 PM 10/29/2022 2:07 PM * Full Code Date Activated Date Inactivated Comments 08/09/2019 5:28 PM 08/10/2019 5:09 PM * Full Code Date Activated Date Inactivated Comments 07/29/2019 4:26 PM 08/04/2019 10:36 PM Care Teams Vamp Creaser Relationship Specialty [place] [address] [place] [address] PCP - General Family Medicine 05/18/24 [place] [address] [address] [address] Referring Physician General Surgery 08/04/19 [place] [address] [address] Consulting Physician Gastroenterology 08/04/19
[2024-09-24 20:10] VITALS: BP 137/62; PULSE 71; RESP 18; TEMP 37.1; O2SAT 99
[2024-09-25 00:22] VITALS: BP 116/58; PULSE 88; RESP 20; O2SAT 98
--- OUTSIDE RECORDS SUMMARY | 2024-09-25 03:37 | XMS_ITS | Encounter Summary ---
Author Organization [facility] Address [address] [place] [address] Care Team Providers Care Medical Secretary Teacher Name Role Phone eJrel Camejo MD Primary Care Provider [phone] Reason for Visit * Reason Comments Leg Pain Pt arrives to ED via private vehicle with c.o left lower leg pain/infection. Pt has been seen multiple times for infection, reports infection will not go away. [facility] this morning. * Auth/Cert (Routine) Specialty Diagnoses / Procedures Referred By Contac t Referred To Contact Emergency Medicine [facility] [address] [place] [address] Phone: tel: fax: Referral ID Status Reason Start Date Expiration Date Visits Re quested Visits Authorized [id number] 1 1 Encounter Details Date Type Department Care Team (Late st Contact Info) Description 09/23/2024 4:57 PM WAX BLEACHER - 09/23/2024 6:39 PM WAX BLEACHER Emergency [facility] [address] [place] [phone] Venous insufficiency (chronic) (peripheral) (Primary Dx); [...] on file Legal Sex Male 7:43 PM WAX BLEACHER Gender Identity Not on file Sexual Orientation Not on file documented as of this encounter Last Filed Vital Signs Vital Sign Reading Time Taken Comments Blood Pressure 108/73 09/23/2024 6:00 PM WAX BLEACHER Pulse 85 09/23/2024 4:06 PM WAX BLEACHER Temperature 37.3 C (99.2 F) 09/23/2024 4:06 PM WAX BLEACHER Respiratory Rate 16 09/23/2024 6:00 PM WAX BLEACHER Oxygen Saturation 99% 09/23/2024 6:00 PM WAX BLEACHER Inhaled Oxygen Concentration - - Weight 74.8 kg (165 lb) 09/23/2024 4:06 PM WAX BLEACHER Height 172.7 cm (5' 8 ) 09/23/2024 4:06 PM WAX BLEACHER Body Mass Index 25.09 09/23/2024 4:06 PM WAX BLEACHER documented in this encounter Discharge Instructions * Attachments The following attachments cannot be sent through Care Everywhere. * Venous Insufficiency: General Info (Japanese) documented in this encounter Medications at Time of Discharge ondansetron (ZOFRAN ODT) 4 mg Tablet, Rapid Dissolve Take 1 Tablet (4 mg) by mouth every 8 hours as needed for Nausea/Emesis. Dissolve tablet on top of tongue, then swallow with saliva. 30 Tablet 09/15/2024 09/25/2024 documented as of this encounter ED Notes * Indio Brown, GINGER - 09/23/2024 4:06 PM CST [...] Wicho Camarillo DO at 09/23/2024 6:01 PM WAX BLEACHER BLEACHER BLEACHER BLEACHER documented in this encounter Miscellaneous Notes * [...] or language barriers in the provided notes. BLEACHER documented in this encounter Plan of Treatment Upcoming Encounters Date Type Department Care Team (Late st Contact Info) Description 08/27/2025 11:30 AM WAX BLEACHER Office Visit [facility] Internal Medicine - [place] [address] [address] [place] [phone] [place] [address] [facility] [address] Ch[address]vez [facility] [address] [place] [phone] documented as of this encounter Visit Diagnoses Diagnosis Venous insufficiency (chronic) (peripheral)- Primary Unspecified venous (peripheral) insufficiency Malingering Person feigning illness documented in this encounter Additional Health Concerns Infection Onset Date Last Indicated Resolved Time R/O Respiratory 09/23/2024 09/23/2024 09/23/2024 5 :58 PM WAX BLEACHER documented as of this encounter Care Teams Medical Secretary Teacher Relationship Specialty [place] [address] [facility] [address] Kyler Holland [address] [phone] PCP - General Family Practice 12/01/22 documented as of this encounter
--- OUTSIDE RECORDS SUMMARY | 2024-09-25 03:37 | XMS_ITS | Encounter Summary ---
Author Organization [facility] Address [address] [place] [address] Care Team Providers Care Sr. Pricing Analyst Name Role Phone Jerel Camejo MD Primary Care Provider [phone] Encounter Details Date Type Department Care Team (Late Contact Info) Description 12/24/2022 Lab Requisition [facility] [address] [facility] [address] [place] [address] Ny Hicks MD [address] [place] [address] Generalized enlarged lymph nodes Social [...] on file Legal Sex Male 7:43 PM PSYCHOLOGICAL AIDE Gender Identity Not on file Sexual Orientation [...] (Late Contact Info) Description 08/27/2025 11:30 AM PSYCHOLOGICAL AIDE Office Visit [facility] Internal Medicine - [place]faro [address] [facility] [address] [place] [address] [place] [address] [facility] [address] Kyler Holland [facility] [address] [place] [address] documented as of this encounter Procedures Procedure Name Priority Date/Time Associated Diagnosis Comments SEDIMENTATION RATE Stat 12/24/2022 12 :05 PM CDT Generalized enlarged lymph nodes C-REACTIVE PROTEIN Stat 12/24/2022 12 :05 PM CDT Generalized enlarged lymph nodes documented in this encounter Results * C-REACTIVE PROTEIN (12/24/2022 12:05 PM CDT) CRP <3.0 <5.0 mg/L 12/24/2022 3:02 PM CDT [facility] Blood 12/24/2022 12:0 5 PM CDT 12/24/2022 2:22 PM CDT us Ny Hicks MD CHEMISTRY ORDERABLES Final Re sult [facility]# [id number] [address] [place] [address] * SEDIMENTATION RATE (12/24/2022 12:05 PM CDT) Pathologist [facility] ESR (SEDIMENTATION RATE) 7 <=15 mm/Hr 12/24/2022 2:55 PM CDT [facility] Blood Collection / Unknown 12/24/2022 12:05 PM CDT 12/24/2022 2:22 PM CDT us Ny Hicks MD HEMATOLOGY ORDERABLES Final R esult [facility]# [id number] [address] [place] [address] documented in this encounter Visit Diagnoses Diagnosis Generalized enlarged lymph nodes Enlargement of lymph nodes documented in this encounter Additional Health Concerns Infection Onset Date Last Indicated Resolved Time R/O COVID-19 08/21/2024 08/21/2024 08/21/2024 4:37 PM PSYCHOLOGICAL AIDE R/O Respiratory 09/08/2024 09/08/2024 09/09/2024 1 :04 AM PSYCHOLOGICAL AIDE R/O COVID-19 09/22/2024 09/22/2024 09/22/2024 10:1 8 PM PSYCHOLOGICAL AIDE R/O Respiratory 09/23/2024 09/23/2024 09/23/2024 5 :58 PM PSYCHOLOGICAL AIDE documented as of this encounter Care Teams Sr. Pricing Analyst Relationship Specialty Start [place] [address] [facility] [address] Ch[address] [phone] PCP - General Family Practice 12/01/22 documented as of this encounter
--- OUTSIDE RECORDS SUMMARY | 2024-09-25 03:37 | XMS_ITS | Clinical Summary ---
Author Organization [facility] Address [address] [place] [address] Phone Care Team Providers Care Community Engagement Coordinator Name Role Phone Jerel Camejo MD Primary Care Provider [phone] Allergies Active Allergy Reactions Criticality Noted Date [...] (09/15/2024): Added automatically from request for surgery [id number] Leg wound, left 09/13/2019 Chronic abdominal pain 08/12/2019 S/P cholecystectomy 08/12/2019 Vasovagal episode 08/12/2019 Calculus of gallbladder 07/29/2019 Intractable right upper quadrant abdominal pain 07/29/2019 Overview (09/15/2024): Added automatically from request for surgery [id number] Nausea 07/29/2019 Adjustment disorder with depressed mood in remis devonte 11/05/2018 Generalized abdominal pain 10/25/2018 Sepsis 10/25/2018 Dizziness 10/20/2018 Syncope and collapse 10/20/2018 Encounters Date Type Department Care Team Description 09/23/2024 4:57 PM [facility] - 09/23/2024 6:39 PM [facility] Emergency Department [address] [place] [phone] Venous insufficiency (chronic) (peripheral) (Primary Dx); Malingering Discharge Disposition: Home or Self Care 09/23/2024 3:00 PM [facility] Office Visit [address] [address] [facility] Cecilia Bell PA Venous stasis dermatitis (Primary Dx); Venous insufficiency (chronic) (peripheral); Lymphedema; Leg swelling 09/23/2024 2:55 AM [facility] - 09/23/2024 9:39 AM [facility] [address] [place] [address] Upper respiratory tract infection, unspecified type (Primary Dx) Discharge Disposition: Home or Self Care 09/21/2024 5:45 PM [facility] Office Visit [facility] [address] [place] [address] [facility] Kay Melo FNP Acute cough (Primary Dx) 09/20/2024 8:51 PM [facility] - 09/20/2024 9:18 PM [facility] Emergency Department [address] [place] [address] Karlo Dobbs MD Bilateral lower extremity edema (Primary Dx) Discharge Disposition: Home or Self Care 09/20/2024 Travel 09/20/2024 Patient Outreach [facility] Outpatient Care Management - [place] [id number] [place] [address] Rd [address], [place] [address] Thalia Wall LCSW Ambulatory Social Work 09/19/2024 5:58 PM [facility] - 09/19/2024 6:44 PM [facility] [address] [place] [phone] Asif Isabel MD Peripheral edema (Primary Dx) Discharge Disposition: Home or Self Care 09/19/2024 12:00 PM [facility] Office Visit [facility] [address] [address] Rajiv Berry PA Cellulitis of left lower leg (Primary Dx); Edema of left lower leg 09/17/2024 1:11 AM [facility] - 09/17/2024 2:12 AM [facility] Emergency Department [address] [place] [address] Nolan Lee MD Venous insufficiency (chronic) (peripheral) (Primary Dx) Discharge Disposition: Home or Self Care 09/15/2024 6:00 PM [facility] Office Visit [facility] [address] [place] [address] Kay Melo FNP Nausea and vomiting, unspecified vomiting type (Primary Dx) 09/15/2024 2:19 AM [facility] - 09/15/2024 3:50 AM [facility] Emergency Department [address] [place] [phone] Greg Todd MD Lower extremity edema (Primary Dx) Discharge Disposition: Home or Self Care 09/14/2024 Travel 09/13/2024 8:17 AM [facility] - 09/13/2024 11:47 AM [facility] Department [address] [place] [phone] Batsheva Hayden MD Leg swelling (Primary Dx) Discharge Disposition: Home or Self Care 09/13/2024 Travel 09/10/2024 9:10 PM [facility] - 09/10/2024 10:05 PM [facility] Emergency Room [address] [place] [address] Bilateral lower extremity edema (Primary Dx) Discharge Disposition: Home or Self Care 09/09/2024 9:55 PM [facility] - 09/10/2024 12:20 AM [facility] Department [address] [place] [phone] Nolan Lee MD 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 (Primary Dx) Discharge Disposition: Home or Self Care 09/09/2024 2:45 AM [facility] - 09/09/2024 3:11 AM [facility] Emergency Department [address] [place] [address] Mark Andrews DO Venous stasis dermatitis (Primary Dx); Other chronic pain Discharge Disposition: Home or Self Care 09/08/2024 Travel 09/05/2024 External Device Data STL ABSTRACTION Provider, Abstract 09/04/2024 6:46 AM [facility] - 09/04/2024 7:21 AM [facility] Department [address] [place] [address] Fei Napoles DO Chronic pain of left lower extremity (Primary Dx) Discharge Disposition: Home or Self Care 08/24/2024 11:37 PM [facility] - 08/24/2024 11:53 PM [facility] Department [address] [place] [address] Wicho Camarillo DO Cellulitis, unspecified cellulitis site (Primary Dx) Discharge Disposition: Home or Self Care 08/24/2024 External Device Data STL ABSTRACTION Provider, Abstract 2024 Results Follow-Up [facility] [place] [address] [facility] [place] [address] Jerel Camejo MD TSH, LIPID PANEL, COMPREHENSIVE METABOLIC PANEL, Additional followed-up results: 2 08/21/2024 3:00 PM [facility] Office Visit [facility] [place] [address] [facility] [place] [phone] Jerel Camejo MD Encounter for routine adult health examination with abnormal findings (Primary Dx); Adjustment disorder with depressed mood in remission; LAD (lymphadenopathy); Screening for cardiovascular condition; Screening for lipoid disorders; Screening for endocrine disorder 08/21/2024 2:59 PM [facility] - 08/21/2024 7:44 PM [facility] Emergency Department [address] [place] [address] Mike Sandoval DO Hilton, Steven A, MD Leg edema (Primary Dx); Persistent cough Discharge Disposition: Home or Self Care 08/21/2024 Travel 08/17/2024 2:50 AM [facility] - 08/17/2024 3:37 AM [facility] Emergency [facility] Emergency Department [address] [place] [phone] Nolan Lee MD Viral syndrome (Primary Dx); Bilateral lower extremity edema Discharge Disposition: Home or Self Care 08/15/2024 External Device Data STL ABSTRACTION Provider, Abstract 08/14/2024 Orders Only [facility] Oncology and Hematology [facility] [address] [facility] [address] [place] [address] Ny Hicks MD Enlarged lymph nodes (Primary Dx) 08/11/2024 9:18 PM [facility] - 08/12/2024 12:53 AM [facility] Emergency [facility] Emergency Department [address] [place] [address] Nasrin White MD COVID-19 virus detected (Primary [...] on file Legal Sex Male 7:43 PM [facility] Gender Identity Not on file Sexual Orientation Not on file Last Filed Vital Signs Vital Sign Reading Time Taken Comments Blood Pressure 108/73 09/23/2024 6:00 PM [facility] Pulse 85 09/23/2024 4:06 PM [facility] Temperature 37.3 C (99.2 F) 09/23/2024 4:06 PM [facility] Respiratory Rate 16 09/23/2024 6:00 PM [facility] Oxygen Saturation 99% 09/23/2024 6:00 PM [facility] Inhaled Oxygen Concentration - - Weight 74.8 kg (165 lb) 09/23/2024 4:06 PM [facility] Height 172.7 cm (5' 8 ) 09/23/2024 4:06 PM [facility] Body Mass Index 25.09 09/23/2024 4:06 PM [facility] Plan of Treatment Upcoming Encounters Date Type Department Care Team (Late st Contact Info) Description 08/27/2025 11:30 AM [facility] Office Visit [facility] - [place] [address] [place] [address] [place] [address] [address] [facility] [address] [place] [address] Health Maintenance Due Date Last [...] Comments HEMOGLOBIN A1C Stat 09/23/2024 9:00 AM [facility] COMPREHENSIVE METABOLIC PANEL Stat 09/23/2024 9:00 AM [facility] CBC WITH DIFFERENTIAL Stat 09/23/2024 9:00 AM [facility] INFLUENZA A/B, RSV AND COVID-19 PCR PANEL Stat 09/22/2024 9:31 PM [facility] INFLUENZA A/B, RSV AND COVID-19 PCR PANEL Stat 09/22/2024 9:31 PM [facility] RAPID STREP SCREEN WITH REFLEX CULTURE Stat 09/22/2024 9:31 PM [facility] POC COVID-19 ANTIGEN Routine 09/21/2024 5:48 PM [facility] Acute cough POC INFLUENZA A AND B ANTIGEN Routine 09/21/2024 5:48 PM [facility] Acute cough EXTRA TUBE (BLUE) Stat 09/19/2024 6:0 3 PM [facility] EXTRA TUBE Stat 09/19/2024 6:03 PM [facility] DIFFERENTIAL, MANUAL Stat 09/19/2024 5:59 PM [facility] COMPREHENSIVE METABOLIC PANEL Stat 09/19/2024 5:59 PM [facility] CBC WITH DIFFERENTIAL Stat 09/19/2024 5:59 PM [facility] TROPONIN 2 HR, 5TH GEN Timed Study 09/17/2024 1:35 AM [facility] EXTRA TUBE (BLUE) Stat 09/16/2024 9:1 3 PM [facility] EXTRA TUBE Stat 09/16/2024 9:13 PM [facility] COMPREHENSIVE METABOLIC PANEL Stat 09/16/2024 9:13 PM [facility] CBC WITH DIFFERENTIAL Stat 09/16/2024 9:13 PM [facility] TROPONIN BASELINE, 5TH GEN Stat 09/16/2024 9:13 PM [facility] EKG 12-LEAD Stat 09/16/2024 9:02 PM [facility] POC INFLUENZA A AND B ANTIGEN Routine 09/15/2024 6:16 PM [facility] Nausea and vomiting, unspecified vomiting type COMPREHENSIVE METABOLIC PANEL Stat 09/14/2024 11:53 PM [facility] CBC WITH DIFFERENTIAL Stat 09/14/2024 11:53 PM [facility] POC GLUCOSE Stat 09/14/2024 11:51 PM [facility] COMPREHENSIVE METABOLIC PANEL Stat 09/09/2024 9:16 PM [facility] CBC WITH DIFFERENTIAL Stat 09/09/2024 9:16 PM [facility] XR CHEST PA AND LATERAL 2 VW Stat 09/09/2024 1:17 AM [facility] RESPIRATORY PATHOGEN PCR PANEL Stat 09/08/2024 11:[address] CHEST ABDOMEN PELVIS W CONT Stat 08/21/2024 6:55 PM [facility] POC CREATININE Stat 08/21/2024 4:35 PM [facility] C-REACTIVE PROTEIN Stat 08/21/2024 4: 27 PM [facility] COMPREHENSIVE METABOLIC PANEL Stat 08/21/2024 4:27 PM [facility] CBC WITH DIFFERENTIAL Stat 08/21/2024 4:27 PM [facility] XR CHEST PA AND LATERAL 2 VW Stat 08/21/2024 3:25 PM [facility] INFLUENZA A/B, RSV AND COVID-19 PCR PANEL Stat 08/21/2024 3:11 PM [facility] INFLUENZA A/B, RSV AND COVID-19 PCR PANEL Stat 08/21/2024 3:11 PM [facility] HEMOGLOBIN A1C Routine 08/21/2024 2:08 PM [facility] Adjustment disorder with depressed mood in remission LAD (lymphadenopathy) CBC WITH DIFFERENTIAL Routine 08/21/2024 2:08 PM [facility] Adjustment disorder with depressed mood in remission LAD (lymphadenopathy) COMPREHENSIVE METABOLIC PANEL Routine 08/21/2024 2:08 PM [facility] Adjustment disorder with depressed mood in remission LAD (lymphadenopathy) LIPID PANEL Routine 08/21/2024 2:08 PM [facility] Adjustment disorder with depressed mood in remission LAD (lymphadenopathy) TSH Routine 08/21/2024 2:08 PM [facility] Adjustment disorder with depressed mood in remission LAD (lymphadenopathy) XR CHEST PA AND LATERAL 2 VW Stat 08/17/2024 3:26 AM [facility] TROPONIN 2 HR, 5TH GEN Timed Study 08/11/2024 11:[address] HEAD WO CONTRAST Stat 08/11/2024 1 0:18 PM [facility] EKG 12-LEAD Stat 08/11/2024 9:58 PM [facility] TROPONIN BASELINE, 5TH GEN Stat 08/11/2024 9:57 PM [facility] COMPREHENSIVE METABOLIC PANEL Stat 08/11/2024 9:57 PM [facility] CBC WITH DIFFERENTIAL Stat 08/11/2024 9:57 PM [facility] from Last 3 Months Results * CBC WITH DIFFERENTIAL (09/23/2024 9:00 AM [facility]) Only the most recent of8 resultswithin the time period is included. WBC 4.9 4.0 - 11.0 K/uL 09/23/2024 9:05 AM [facility] [employer] LABORATORY SERVICES - [place] RBC 5.23 4.60 - 6.20 M/uL 09/23/2024 9:05 AM [facility] [employer] SERVICES - [place] HEMOGLOBIN 15.0 13.5 - 17.0 g/dL 09/23/2024 9:05 AM [facility] [employer] SERVICES - [place] HEMATOCRIT 45.9 40.0 - 54.0 % 09/23/2024 9:05 AM [facility] [employer] SERVICES - [place] MCV 87.8 80.0 - 98.0 fL 09/23/2024 9:05 AM [facility] [employer] SERVICES - [place] MCH 28.7 26.0 - 34.0 pg 09/23/2024 9:05 AM [facility] [employer] SERVICES - [place] MCHC 32.7 31.0 - 37.0 g/dL 09/23/2024 9:05 AM [facility] [employer] SERVICES - [place] RDW 12.3 11.5 - 14.5 % 09/23/2024 9:05 AM [facility] [employer] SERVICES - [place] RDW-STDEV 39.1 34.0 - 54.0 fL 09/23/2024 9:05 AM [facility] [employer] SERVICES - [place] PLATELETS 249 150 - 400 K/uL 09/23/2024 9:05 AM [facility] [employer] SERVICES - [place] MPV 9.8 8.5 - 12.5 fL 09/23/2024 9:05 AM [facility] [employer] SERVICES - [place] NEUTROPHILS 61 50 - 70 % 09/23/2024 9:05 AM [facility] [employer] [facility] - [place] LYMPHOCYTES 30 20 - 40 % 09/23/2024 9:05 AM [facility] [employer] [facility] - [place] MONOCYTES 6 2 - 8 % 09/23/2024 9:05 AM [facility] [employer] [facility] - [place] EOSINOPHILS 2 1 - 3 % 09/23/2024 9:05 AM [facility] [employer] SERVICES - [place] BASOPHILS 1 0 - 1 % 09/23/2024 9:05 AM [facility] [employer] [facility] - [place] IMMATURE GRANULOCYTES 0 0 - 2 % 09/23/2024 9:05 AM [facility] [employer] [facility] - [place] NEUTROPHIL ABSOLUTE 3.00 1.80 - 7.70 K/uL 09/23/2024 9:05 AM [facility] LABORATORY [facility] [place] LYMPHOCYTE ABSOLUTE 1.47 1.00 - 3.30 K/uL 09/23/2024 9:05 AM [facility] LABORATORY [facility] [place] MONOCYTE ABSOLUTE 0.28 0.00 - 0.80 K/uL 09/23/2024 9:05 AM [facility] LABORATORY [facility] [place] EOSINOPHIL ABSOLUTE 0.10 0.00 - 0.45 K/uL 09/23/2024 9:05 AM [facility] LABORATORY [facility] [place] BASOPHILS ABSOLUTE 0.04 0.00 - 0.20 K/uL 09/23/2024 9:05 AM [facility] LABORATORY [facility] [place] IMMATURE GRANULOCYTES ABSOLUTE 0.01 0.00 - 0.31 K/uL 09/23/2024 9:05 AM [facility] LABORATORY [facility] Blood Collection / Unknown 09/23/2024 9:00 AM [facility] 09/23/2024 9:03 AM [facility] Rita Elizabeth NP HEMATOLOGY ORDERABLES Final Result [facility] [employer] [facility] CLIA # [id number] [address] [address] * HEMOGLOBIN A1C (09/23/2024 9:00 AM [facility]) Only the most recent of2 resultswithin the time period is included. HEMOGLOBIN A1C 5.2 <=5.6 % 09/23/2024 10:06 AM [facility] [employer] [facility] EST. AVG GLUCOSE, A1C 103 mg/dL 09/23/2024 10:06 AM [facility] [employer] [facility] Blood Collection / Unknown 09/23/2024 9:00 AM [facility] 09/23/2024 9:25 AM [facility] Narrative [facility] LABORATORY [facility] - 09/23/2024 10:06 AM [facility] HGB A1C INTERPRETATION NORMAL: <5.7% PRE-DIABETES: 5.7 - 6.4% DIABETES: 6.5% OR GREATER Rita Elizabeth NP CHEMISTRY ORDERABLES Final Result [facility] [employer] SERVICES - [place] # [id number] [address] [place] [address] * (ABNORMAL) COMPREHENSIVE METABOLIC PANEL (09/23/2024 9:00 AM [facility]) Only the most recent of8 resultswithin the time period is included. Pathologist [facility] [place] SODIUM 136 136 - 145 mmol/L 09/23/2024 9:25 AM [facility] [employer] SERVICES - [place] POTASSIUM 4.2 3.5 - 5.1 mmol/L 09/23/2024 9:25 AM [facility] [employer] [facility] CHLORIDE 95(L) 98 - 107 mmol/L 09/23/2024 9:25 AM [facility] [employer] [facility] CO2 30(H) 22 - 29 mmol/L 09/23/2024 9:25 AM [facility] [employer] [facility] CALCIUM 9.3 8.6 - 10.0 mg/dL 09/23/2024 9:25 AM [facility] [employer] [facility] BUN 21(H) 6 - 20 mg/dL 09/23/2024 9:25 AM [facility] [employer] [facility] CREATININE 0.90 0.67 - 1.17 mg/dL 09/23/2024 9:25 AM [facility] LABORATORY [facility] GLUCOSE 146(H) 74 - 99 mg/dL 09/23/2024 9:25 AM [facility] [employer] [facility] TOTAL PROTEIN 8.4 6.6 - 8.7 g/dL 09/23/2024 9:25 AM [facility] [employer] [facility] ALBUMIN 4.7 4.0 - 5.0 g/dL 09/23/2024 9:25 AM [facility] [employer] [facility] BILIRUBIN TOTAL 1.3(H) <=1.2 mg/dL 09/23/2024 9:25 AM [facility] LABORATORY [facility] ALKALINE PHOSPHATASE 94 40 - 129 U/L 09/23/2024 9:25 AM [facility] LABORATORY [facility] [place] AST 28 <=41 U/L 09/23/2024 9:25 AM [facility] ALT 29 <=41 U/L 09/23/2024 9:25 AM [facility] GFR >60 >=60 mL/min/1.7 3 sq meter 09/23/2024 9:25 AM [facility] Comment:eGFR calculated with 2020 CKD-EPI equation. Vegetarian diet, extremely high or low muscle mass, and may affect results. Cystatin C with Glomerular Filtration Rate is a suitable alternative for these patients. ANION GAP 11 5 - 15 mmol/L 09/23/2024 9:25 AM [facility] Blood Collection / Unknown 09/23/2024 9:00 AM [facility] 09/23/2024 9:10 AM [facility] Rita Elizabeth NP CHEMISTRY ORDERABLES Final Result [facility] CLIA # [id number] [facility] [address] [place] [address] * INFLUENZA A/B, RSV AND COVID-19 PCR PANEL (09/22/2024 9:31 PM [facility]) Only the most recent of2 resultswithin the time period is included. COVID-19 PCR NOT DETECTED Not Detected 09/22/19 10:18 PM [facility] Influenza A by PCR NOT DETECTED Not Detected 09/22/2024 10:18 PM [facility] Influenza B by PCR NOT DETECTED Not Detected 09/22/2024 10:18 PM [facility] RSV by PCR NOT DETECTED Not Detected 09/22/2024 10:18 PM [facility] Upper Respiratory ENTIRE NASOPHARYNX / Unknown Collection / Unknown 09/22/2024 9:31 PM [facility] 09/22/2024 9:40 PM [facility] Narrative [facility] LABORATORY [facility] - 09/22/2024 10:18 PM [facility] This test has been authorized by the [...] L ORDERABLES Final Result Performing Organization Address [facility] Co de Phone Number [facility] [id number] [address] [address] * RAPID STREP SCREEN WITH REFLEX CULTURE (09/22/2024 9:31 PM [facility]) [facility] RAPID STREP Not Detected Not Detected 09/22/2024 10:01 PM [facility] Comment:This Group A Strep t est is [...] Unknown Collection / Unknown 09/22/2024 9:31 PM [facility] 09/22/2024 9:36 PM [facility] us Protocol Negrito Velásquez MD MICROBIOLOGY - GENERA L ORDERABLES Final Result Performing Organization Address [facility]/ZIP Co de Phone Number [facility] # [id number] [address] [address] * POC COVID-19 ANTIGEN (09/21/2024 5:48 PM [facility]) [facility] COVID-19 ANTIGEN POC Presumptively Negative Presumptively Negative [facility] [employer] [facility] INTERNAL KIT QC POC Pass Pass [facility] KIT LOT NUMBER POC [id number] [facility] KIT EXP DATE POC 08/24/25 [facility] READ METHOD POC Visual [facility] Upper Respiratory 09/21/2024 5:48 PM [facility] Kay Melo TOP TILE DECORATOR POINT OF CARE TESTING F inal Result Performing Organization Address [facility] Co de Phone Number [facility] CLIA# [id number] [place] [address] * POC INFLUENZA A AND B ANTIGEN (09/21/2024 5:48 PM [facility]) Only the most recent of2 resultswithin the time period is included. INFLUENZA A AG POC Negative/Not Detected Negative/No t Detected [facility] INFLUENZA B AG POC Negative/Not Detected Negative/No t Detected [facility] INTERNAL KIT QC POC Pass Pass [facility] KIT LOT NUMBER POC [id number] [facility] KIT EXP DATE POC 03/01/26 [facility] READ METHOD POC Visual [facility] Upper Respiratory ANTERIOR NARES SWAB / Unknown 09/21/2024 5:48 PM [facility] Kay Melo TOP TILE DECORATOR POINT OF CARE TESTING F inal Result Performing Organization Address [facility] Co de Phone Number [facility] CLIA# [id number] [place] [address] * EXTRA TUBE (BLUE) (09/19/2024 6:03 PM [facility]) Only the most recent of2 resultswithin the time period is included. Blood Venipuncture / Unknown 09/19/2024 6:03 PM [facility] 09/19/2024 6:36 PM [facility] Asif Isabel MD HEMATOLOGY ORDERABLES Fin al Result Performing Organization Address City/[facility] Co de Phone Number [facility] CLIA # [id number] [address] [place] [address] * MANUAL DIFFERENTIAL (09/19/2024 5:59 PM [facility]) Pathologist [facility] PLATELET EST. Consistent w Count 09/19/2024 6:19 PM [facility] RBC MORPHOLOGY Normal 09/19/2024 6:19 PM [facility] Blood Collection / Unknown 09/19/2024 5:59 PM [facility] 09/19/2024 6:03 PM [facility] us Asif Isabel MD HEMATOLOGY ORDERABLES COM Final Result Performing Organization Address [facility] Co de Phone Number [facility] CLIA # [id number] [address] [place] [address] * TROPONIN 2 HR, 5TH GEN (09/17/2024 1:35 AM [facility]) Only the most recent of2 resultswithin the time period is included. Pathologist [facility] [place] TROPONIN T, 2 HR 5TH GEN <6 <=15 ng/L 09/17/2024 2:08 AM [facility] Blood Venipuncture / Unknown 09/17/2024 1:35 AM [facility] 09/17/2024 1:40 AM [facility] Narrative [facility] LABORATORY [facility] - 09/17/2024 2:08 AM [facility] Troponin Undetectable Delay in collection of timed specimen beyond recommended collection interval. Results must be interpreted in clinical context. Unable to calculate delta. us Nolan Lee MD CHEMISTRY ORDERABLES Final R esult Performing Organization Address City/[facility]/ZIP Co de Phone Number [facility] CLIA# [id number] [id number] [place] [address] * TROPONIN BASELINE, 5TH GEN (09/16/2024 9:13 PM CHERRY GROWER) Only the most recent of2 resultswithin the time period is included. TROPONIN T, BASELINE 5TH GEN <6 <=15 ng/L 09/16/2024 9:58 PM CHERRY GROWER [facility] Blood Venipuncture / Unknown 09/16/2024 9:13 PM CHERRY GROWER 09/16/2024 9:20 PM CHERRY GROWER Narrative [facility] - 09/16/2024 9:58 PM CHERRY GROWER Troponin Undetectable us Nolan Lee MD CHEMISTRY ORDERABLES Final R esult [facility] CLIA# [id number] [address] [place] [address] * EKG 12-LEAD (09/16/2024 9:02 PM CHERRY GROWER) Only the most recent of2 resultswithin the time period is included. 09/16/2024 9:02 PM CHERRY GROWER Narrative INTERFACE SYSTEM - 09/16/2024 10:35 [place] [address] Test Date: 2024-09-16 Pat Name: LISA MCCOY Department: 94 Room: Gender: Male Utility Technician: tl : 1980 Requested By: Order Number: [id number] Reading MD: Randy Haines Measurements Intervals [place] Rate: 77 P: 76 [place]: 168 QRS: 87 QRSD: 90 T: 46 QT: 372 QTc: 420 Interpretive Statements Normal sinus rhythm Normal ECG Compared to ECG 08/11/2024 21:58:55 No significant changes Electronically Signed On 09-16-2024 22:35:15 CHERRY GROWER by Randy Haines Procedure Note Randy Haines MD - 09/16/2024 [place] [address] Test Date: 2024-09-16 Pat Name: LISA MCCOY Department: 94 Room: Gender: Male Utility Technician: tl : 1980 Requested By: Order Number: [id number] Reading MD: Randy Haines Measurements Intervals [place] Rate: 77 P: 76 [place]: 168 QRS: 87 QRSD: 90 T: 46 QT: 372 QTc: 420 Interpretive Statements Normal sinus rhythm Normal ECG Compared to ECG 08/11/2024 21:58:55 No significant changes Electronically Signed On 09-16-2024 22:35:15 CHERRY GROWER by Randy Haines us Nolan Lee MD ECG ORDERABLES Final Result Performing Organization Address [facility] Co de Phone Number INTERFACE SYSTEM Refer to clinic/hospital department * (ABNORMAL) POC GLUCOSE (09/14/2024 11:51 PM CHERRY GROWER) GLUCOSE POC 119(H) 74 - 99 mg/dL 09/14/2024 11:51 PM CHERRY GROWER [facility] SPECIMEN SOURCE, GLUCOSE POC Whole Blood 09/14/2024 11:51 PM CHERRY GROWER [facility] Blood, whole 09/14/2024 11:5 1 PM CHERRY GROWER 09/14/2024 11:58 PM CHERRY GROWER us Interface Provider Poct POINT OF CARE TESTING Fi nal Result Performing Organization Address [facility] de Phone Number [facility] [employer] [facility] CLIA# [id number] [address] [place] [address] * XR CHEST PA AND LATERAL 2 VW (09/09/2024 1:17 AM CHERRY GROWER) Only the most recent of3 resultswithin the time period is included. Anatomical Region Laterality Modality Chest Computed Radiogr aphy 09/09/2024 1:18 AM CHERRY GROWER Impressions 09/09/2024 7:11 AM CHERRY GROWER IMPRESSION: Negative chest. DICTATION LOCATION: Location 1 - [facility] Narrative 09/09/2024 7:11 AM CHERRY GROWER XR CHEST PA AND LATERAL 2 VW [...] Negative chest. DICTATION LOCATION: Location 1 - [facility] Mark Andrews DO DIAGNOSTIC IMAGING ORDERABLES Final Result * RESPIRATORY PATHOGEN PCR PANEL (09/08/2024 11:43 PM CHERRY GROWER) Pathologist [facility] Respiratory Pathogen PCR Panel NOT DETECTED No respiratory pathogen nucleic acids detected. 09/09/2024 1:04 AM CHERRY GROWER [facility] COVID-19 PCR NOT DETECTED Not Detected 09/09/2024 1:04 AM CHERRY GROWER [facility] Upper Respiratory ENTIRE NASOPHARYNX / Unknown Collection / Unknown 09/08/2024 11:43 PM CHERRY GROWER 09/08/2024 11:49 PM CHERRY GROWER Narrative [facility] - 09/09/2024 1:04 AM CHERRY GROWER The Film Array Respiratory Panel (RP2.1) is [...] ORDERAB LES Final Result [facility]# [id number] [address] [place] [address] * CT CHEST ABDOMEN PELVIS W CONT (08/21/2024 6:55 PM CHERRY GROWER) Anatomical Region Laterality Modality Chest Computed Tomogra phy 08/21/2024 6:41 PM CHERRY GROWER Impressions 08/21/2024 7:15 PM CHERRY GROWER IMPRESSION: 1. No acute findings in the chest/abdomen/pelvis. Dictation location: Location 4 Narrative 08/21/2024 7:[address] CHEST ABDOMEN PELVIS W CONT TECHNIQUE: [...] Result * POC CREATININE (08/21/2024 4:35 PM CHERRY GROWER) CREATININE POC 1.10 0.70 - 1.20 mg/dL 08/21/2024 4:35 PM CHERRY GROWER [facility] [employer] [facility] GFR POC >60 >=60 mL/min/1.7 3 sq meter 08/21/2024 4:35 PM CHERRY GROWER [facility] [employer] [facility] Comment:eGFR calculated with 2020 CKD-EPI equation. Vegetarian diet, extremely high or low muscle mass, and may affect results. Cystatin C with Glomerular Filtration Rate is a suitable alternative for these patients. Blood, whole 08/21/2024 4:35 PM CHERRY GROWER 08/21/2024 4:39 PM CHERRY GROWER Result [facility] Carmelo Snow MD POINT OF CARE TESTING Final R esult [facility]# [id number] [address] [facility] [place] [address] * C-REACTIVE PROTEIN (08/21/2024 4:27 PM CHERRY GROWER) CRP <3.0 <5.0 mg/L 08/21/2024 5:33 PM CHERRY GROWER [facility] [employer] [facility] Blood Venipuncture / Unknown 08/21/2024 4:27 PM CHERRY GROWER 08/21/2024 4:39 PM CHERRY GROWER Carmelo Snow MD CHEMISTRY ORDERABLES Final Re sult [facility]# [id number] [address] [place] [address] * TSH (08/21/2024 2:08 PM CHERRY GROWER) TSH 1.85 0.40 - 4.50 mIU/L [facility] Comment: FASTING:NO FASTING: NO Test Performed at: [place] [address] [place] [address] [place] [facility] Blood 08/21/2024 2:08 PM CHERRY GROWER 08/21/2024 2:08 PM CHERRY GROWER Jerel Camejo MD CHEMISTRY ORDERABLES Final Resul t Performing Organization Address City/[facility]/ZIP Code Phone Number [facility] [address] [phone] [place] [address] [place] [address] * LIPID PANEL (08/21/2024 2:08 PM CHERRY GROWER) CHOLESTEROL 149 <200 mg/dL [facility] HDL 67 > OR = 40 mg/dL [facility] TRIGLYCERIDE 57 <150 mg/dL [facility] LDL CALCULATED 69 mg/dL (calc) [facility] Comment: Reference range: <100 Desirable range <100 mg/dL for primary prevention; <70 mg/dL for patients with CHD or diabetic patients with > or = 2 CHD risk factors. LDL-C is now calculated using the Hazel calculation, which is a validated novel method providing better accuracy than the Friedewald equation in the estimation of LDL-C. Fernando SS et al. GURDEEP. 2013;310(19): 5485-9413 (http://education.[place]/faq/URF997) CHOL/HDL RATIO 2.2 <5.0 (calc) [facility] NON-HDL CHOLESTEROL 82 <130 mg/dL (calc) [facility] Comment: For patients with diabetes plus 1 major ASCVD risk factor, treating to a non-HDL-C goal of <100 mg/dL (LDL-C of <70 mg/dL) is considered a therapeutic option. Test Performed at: [facility] [address] [place] [address] [place] [facility] Blood 08/21/2024 2:08 PM CHERRY GROWER 08/21/2024 2:08 PM CHERRY GROWER Result [facility] Jerel Camejo MD CHEMISTRY ORDERABLES Final Resul t [facility] [address] [phone] [facility] [address] [place] [address] * CT HEAD WO CONTRAST (08/11/2024 10:18 PM CHERRY GROWER) Anatomical Region Laterality Modality Head Computed Tomogra phy 08/11/2024 10:1 8 PM CHERRY GROWER Impressions 08/11/2024 10:25 PM CHERRY GROWER IMPRESSION: 1. No acute intracranial findings. Dictation location: Location 4 Narrative 08/11/2024 10:25 PM CHERRY GROWER Indication: Syncope Study: CT head without IV [...] intracranial findings. Dictation location: Location 4 Result [facility] Nasrin White MD CT ORDERABLES Final Result from Last 3 [place] [address] [facility] [place] [address] [facility] [employer] Care Teams Community Engagement Coordinator Relationship Specialty [place] [address] [facility] [address] Kyler Holland [address] [address] PCP - General Family Practice 12/01/22
--- OUTSIDE RECORDS SUMMARY | 2024-09-25 03:39 | XMS_ITS | Encounter Summary ---
Author Organization [facility] Healthcare Address [address] [place] [address] Care Team Providers Care Tassel Maker Name Role Phone Elias Andrews MD Unavailable [phone] Jonah Otto MD Unavailable [phone] Jerel Camejo MD Primary Care Provider [phone] Reason for Visit * Reason Comments Leg Pain Was seen for leg natalia n and swelling diagnosed with venous insuffiencey and told to use rosendo wraps. 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 When asked if he loosened them he said they won't work if their too loose Encounter Details Date Type Department Care Team (Late st Contact Info) Description 09/24/2024 9:46 AM CIGAR BINDER - 09/24/2024 10:21 AM CIGAR BINDER Emergency [facility] Emergency Department [address] [place] [address] Stefanie Kemp MD [address] [place] [address] Pain and swelling of left lower extremity (Primary Dx) Discharge Disposition: Discharge to home or self care Social History Tobacco Use Types Packs/Day Years Used Date Smoking Tobacco: Never Smokeless Tobacco: Never Alcohol Use Standard Drinks/Week Comments Not Currently 0 (1 standard drink = 0.6 oz pur e alcohol) [facility] Utilities Answer Date Recorded In the past 12 months has th e electric, gas, oil, or water [email or web address] threatened to shut off services in your home? Patient declined 08/14/2024 Social Connection and Isolation Panel [NHANES] A nswer Date Recorded In a typical week, how many times do you talk on the phone with family, friends, or neighbors? Patient declined 08/14/2024 How often do you get togethe r with friends or relatives? Patient declined 08/14/2024 How often do you attend anglican or latter day serv ices? Patient declined 08/14/2024 Do you belong to any clubs o r organizations such as anglican groups, unions, fraternal or athletic groups, or [...] time in the past 12 m [facility], were you homeless or living in a longterm (including now)? Patient declined 08/14/2024 Personal Safety Answer Date Recorded Have you ever been in or are you currently in a harmful physical or emotional relationship or is someone making you feel afraid or unsafe? Denies 09/24/2024 Sex and Gender Information Value Date Recorded Sex Assigned at Not on file Legal Sex Male 9:25 PM CIGAR BINDER Gender Identity Not on file Sexual Orientation Straight 11/18/2022 7: 07 PM CDT documented as of this encounter Last Filed Vital Signs Vital Sign Reading Time Taken Comments Blood Pressure 114/72 09/24/2024 8:27 AM CIGAR BINDER Pulse 80 09/24/2024 8:27 AM CIGAR BINDER Temperature 36.3 C (97.3 F) 09/24/2024 8:27 AM CIGAR BINDER Respiratory Rate 17 09/24/2024 10:20 AM CIGAR BINDER Oxygen Saturation 97% 09/24/2024 8:27 AM CIGAR BINDER Inhaled Oxygen Concentration - - Weight 74.8 kg (165 lb) 09/24/2024 8:27 AM CIGAR BINDER Height 172.7 cm (5' 8 ) 09/24/2024 8:27 AM CIGAR BINDER Body Mass Index 25.09 09/24/2024 8:27 AM CIGAR BINDER documented in this encounter Discharge Instructions * Discharge Instructions* Stefanie Kemp MD - 09/24/2024 10:11 AM CIGAR BINDER Use a compression stocking instead of rosendo [...] work with you outside of the hospital. R BINDER * Attachments The following attachments cannot be sent through Care Everywhere. * Venous Insufficiency (Quality Assurance Tester) (Eritrean) documented in this encounter Medications at Time [...] daily for 5 days 10 tablet 09/20/2024 hydroCHLOROthiaz jessica (HYDRODIURIL) 25 mg tabletIndication s:Cellulitis [...] a day with meals 30 tablet 09/02/2024 documented as of this encounter Ordered Prescriptions [...] wraps. 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 No evidence of DVT in the lower extremities bilaterally. 2. Evidence of pulsatile venous flow. This may suggest increased intravascular volume or right-sided valvular heart disease. Clinical correlation suggested. 3. No change when compared to previous studies. By: Stefanie Kemp MD Final diagnoses: Pain and swelling of left lower extremity - chronic Stefanie Kemp MD 09/24/24 1023 R BINDER * Carmen Girard, CLAUDIA - 09/24/2024 8:28 AM CST Upon exam in triage pt is not wearing an rosendo wrap on left leg. He just said no when asked about it. Carmen Girard, CLAUDIA 09/24/24 0829 R BINDER documented in this encounter Plan of Treatment [...] documented as of this encounter Care Teams Tassel Maker Relationship Specialty [place] [address] [place] [address] PCP - General Family Medicine 05/18/24 [place] [address] [address] [address] Referring Physician General Surgery 08/04/19 [place] [address] [address] Consulting Physician Gastroenterology 08/04/19 documented as of this encounter
--- OUTSIDE RECORDS SUMMARY | 2024-09-25 03:39 | XMS_ITS | Referral Summary ---
Author Organization [address] Address [address] [place] [phone] Care Team Providers Care Artist'S Manager Name Role Phone Elias Andrews MD Unavailable [phone] Jonah Otto MD Unavailable [phone] Jerel Camejo MD Primary Care Provider [phone] Encounters Date Type Department Care Team Description 09/24/2024 1:31 PM SECURITY INVESTIGATOR - 09/24/2024 2:22 PM [facility] Emergency [facility] Emergency Department [address] [place] [address] Pain and swelling of lower extremity, left (Primary Dx) Discharge Disposition: Discharge to home or self care 09/24/2024 9:46 AM SECURITY INVESTIGATOR - 09/24/2024 10:21 AM SECURITY INVESTIGATOR Emergency [facility] Emergency Department [address] [place] [phone] Stefanie Kemp MD Pain and swelling of left lower extremity (Primary Dx) Discharge Disposition: Discharge to home or self care 09/22/2024 6:30 PM SECURITY INVESTIGATOR Office Visit [facility] Medical Group [facility] at [address] [phone] Charlene To NP Upper respiratory tract infection, unspecified type (Primary Dx); Nasal congestion 09/20/2024 4:07 PM SECURITY INVESTIGATOR - 09/20/2024 4:49 PM SECURITY INVESTIGATOR Emergency [facility] Emergency Department [address] [place] [address] Medication refill (Primary Dx) Discharge Disposition: Discharge to home or self care 09/20/2024 1:26 AM SECURITY INVESTIGATOR - 09/20/2024 2:[address] [facility] Emergency Department [address] [place] [address] Cesar Chiang MD Viral pharyngitis (Primary Dx) Discharge Disposition: Discharge to home or self care 09/19/2024 1:39 AM SECURITY INVESTIGATOR - 09/19/2024 2:[address] [facility] Emergency Department [address] [place] [address] Jasbir Yañez MD Pedal edema (Primary Dx) Discharge Disposition: Discharge to home or self care 09/18/2024 6:00 PM SECURITY INVESTIGATOR - 09/18/2024 7:[address] [facility] Emergency Department [address] [place] [address] Left before treatment completed (Primary Dx); Leg swelling Discharge Disposition: Left Against Medical Advice 09/17/2024 11:38 AM SECURITY INVESTIGATOR - 09/17/2024 1:19 PM [facility] Emergency Department [address] [place] [address] Chronic venous insufficiency (Primary Dx); Bilateral lower extremity edema Discharge Disposition: Discharge to home or self care 09/14/2024 Telephone [facility] Medical Group [facility] at [address] [phone] Lexi Garcia, PROCESS CONTROLLER Med Refill 09/14/2024 12:10 AM SECURITY INVESTIGATOR - 09/14/2024 1:49 AM [facility] Emergency Department [address] [place] [address] Brice Sepulveda MD Bilateral lower extremity edema (Primary Dx) Discharge Disposition: Discharge to home or self care 09/13/2024 9:20 PM SECURITY INVESTIGATOR - 09/13/2024 9:46 PM [facility] Emergency Department 2 [place] [address] Michael Schrader MD Weakness (Primary Dx) Discharge Disposition: Discharge to home or self care 09/13/2024 2:46 AM SECURITY INVESTIGATOR - 09/13/2024 5:31 AM [facility] Emergency Department [address] [place] [phone] Katharine Polanco MD Chronic venous insufficiency (Primary Dx); Lower extremity edema Discharge Disposition: Discharge to home or self care 09/12/2024 9:22 PM SECURITY INVESTIGATOR - 09/12/2024 10:59 PM [facility] Emergency Department [address] [place] [address] Leg swelling (Primary Dx); Venous insufficiency; Venous stasis dermatitis Discharge Disposition: Discharge to home or self care 09/11/2024 10:35 PM SECURITY INVESTIGATOR - 09/12/2024 3:44 AM [facility] Emergency Department [address] [place] [phone] Salena Crawley MD Lower extremity edema (Primary Dx); Cellulitis of left lower extremity Discharge Disposition: Discharge to home or self care 09/11/2024 7:00 PM SECURITY INVESTIGATOR Office Visit [facility] at [address] [phone] Truman Gabriel, Symptom of leg swelling (Primary Dx) 09/10/2024 5:00 PM SECURITY INVESTIGATOR Office Visit [facility] at [address] [phone] Jess Hobson NP Cellulitis of left lower extremity (Primary Dx); Left leg swelling 09/07/2024 10:55 AM SECURITY INVESTIGATOR - 09/07/2024 10:56 AM [facility] Emergency Department [address] [place] [address] Venous stasis dermatitis of both lower extremities (Primary Dx) Discharge Disposition: Discharge to home or self care 09/05/2024 8:08 PM SECURITY INVESTIGATOR - 09/05/2024 10:28 PM [facility] Emergency Department [address] [place] [address] Other chronic pain (Primary Dx); Bilateral lower extremity edema Discharge Disposition: Discharge to home or self care 09/05/2024 2:02 AM SECURITY INVESTIGATOR - 09/05/2024 3:14 AM [facility] Emergency Department [address] [place] [address] Marek Nelson MD PhD Chronic pain of left lower extremity (Primary Dx) Discharge Disposition: Discharge to home or self care 09/03/2024 7:07 PM SECURITY INVESTIGATOR - 09/03/2024 11:06 PM [facility] Emergency Department [address] [place] [address] Cellulitis of left lower extremity (Primary Dx) Discharge Disposition: Discharge to home or self care 09/02/2024 8:24 AM SECURITY INVESTIGATOR - 09/02/2024 11:[address] [facility] [address] [place] [address] Discharge Disposition: Discharge to home or self care 09/02/2024 3:25 AM SECURITY INVESTIGATOR - 09/02/2024 3:41 AM [facility] Emergency Department [address] [place] [address] Rachele Guerra MD Sprain of right ankle, unspecified ligament, initial encounter (Primary Dx) Discharge Disposition: Discharge to home or self care 09/01/2024 8:06 AM SECURITY INVESTIGATOR - 09/01/2024 9:39 AM [facility] Emergency [facility] Emergency Department [address] [place] [address] Jair Armendariz MD Sprain of right ankle, unspecified ligament, initial encounter (Primary Dx) Discharge Disposition: Discharge to home or self care 08/23/2024 9:27 PM [facility] - 08/23/2024 10:03 PM [facility] Emergency Department [address] [place] [address] Leg swelling (Primary Dx); Cellulitis of left lower extremity Discharge Disposition: Discharge to home or self care 08/23/2024 1:41 AM SECURITY INVESTIGATOR - 08/23/2024 9:16 AM [facility] Emergency [facility] Emergency Department [address] [place] [address] Salena Crawley MD Li, Alex, MD Schneider, John Elliott, MD Leg swelling (Primary Dx); Cellulitis of left lower extremity; Failure of outpatient treatment Discharge Disposition: Discharge to home or self care 08/20/2024 11:11 PM SECURITY INVESTIGATOR - 08/21/2024 1:30 AM [facility] Emergency [facility] Emergency Department [address] [place] [address] Dependent edema (Primary Dx) Discharge Disposition: Discharge to home or self care 08/20/2024 9:06 AM SECURITY INVESTIGATOR - 08/20/2024 11:08 AM [facility] Emergency Department [phone] [place] [address] Fei Murray MD Upper respiratory tract infection, unspecified type (Primary Dx); Peripheral edema Discharge Disposition: Discharge to home or self care 08/20/2024 2:24 AM [facility] - 08/20/2024 4:35 AM [facility] Emergency Department [address] [place] [address] Discharge Disposition: Left without being seen 08/18/2024 5:58 AM SECURITY INVESTIGATOR - 08/18/2024 7:26 AM [facility] Emergency [facility] Emergency Department [address] [place] [address] Lorenzo Peña MD Peripheral edema (Primary Dx) Discharge Disposition: Discharge to home or self care 08/17/2024 3:00 PM [facility] Diagnostic [facility] Orthopaedic Surgery Formerly [facility], [facility] Advanced Medicine 6th [place] [address] [place] [phone] Luciano Nelson MD Encounter for examination of normal volunteer in research study 08/15/2024 12:23 AM SECURITY INVESTIGATOR - 08/15/2024 1:52 AM [facility] Emergency [facility] Emergency Department [address] [place] [address] [place] (Primary Dx); Swelling Discharge Disposition: Discharge to home or self care 08/12/2024 8:23 PM SECURITY INVESTIGATOR - 08/14/2024 1:56 PM [facility] Hospital [facility] [address] [place] [address] Batsheva Portillo MD Li, MD Lucille Garcia Alex, MD COVID-19 (Primary Dx); Recurrent syncope; Chest pain, unspecified type; Anemia, unspecified type; Elevated AST (SGOT); Elevated ALT measurement; Nonintractable headache, unspecified chronicity pattern, unspecified headache type Discharge Disposition: Discharge to home or self care 08/11/2024 3:49 AM SECURITY INVESTIGATOR - 08/11/2024 4:35 AM [facility] Emergency Department [address] [place] [phone] Abdiel Hawkins MD Coronavirus infection (Primary Dx); Lightheadedness Discharge Disposition: Discharge to home or self care 08/08/2024 9:58 PM SECURITY INVESTIGATOR - 08/08/2024 11:12 PM [facility] Emergency Department [address] [place] [phone] Karlo Gatica MD COVID (Primary Dx); Dehydration; Syncope, unspecified syncope type Discharge Disposition: Discharge to home or self care 08/07/2024 [facility] Eligibility Review [facility] Community Health Worker [address] [place] [address] Darlene Zurita [place] 08/06/2024 9:50 AM SECURITY INVESTIGATOR - 08/06/2024 12:23 PM [facility] Emergency [facility] Emergency Department [address] [place] [phone] Jassi Daniels MD Coronavirus infection (Primary Dx) Discharge Disposition: Discharge to home or self care 08/02/2024 12:46 PM SECURITY INVESTIGATOR - 08/02/2024 1:16 PM [facility] Emergency [facility] Emergency Department [address] [place] [address] Gee Moran MD Chronic right shoulder pain (Primary Dx) Discharge Disposition: Discharge to home or self care 08/01/2024 2:00 AM SECURITY INVESTIGATOR - 08/01/2024 3:17 AM [facility] Emergency [facility] Emergency Department [address] [place] [address] Chronic right shoulder pain (Primary Dx); Encounter for medication refill Discharge Disposition: Discharge to home or self care 07/29/2024 9:38 PM SECURITY INVESTIGATOR - 07/29/2024 11:38 PM [facility] Emergency [facility] Emergency Department [address] [place] [address] Cindy Hendricks MD Injury of right rotator cuff, subsequent encounter (Primary Dx) Discharge Disposition: Discharge to home or self care 07/24/2024 Documentation [facility] Psych[facility] [address] [place] [address] Health [address] [place] [address] Cherie Ramirez, [facility] Social Work Services 07/24/2024 1:00 PM [facility] Office [facility] Trauma [address] [place] [address] 4th Floor [address] [place] [phone] Right anterior shoulder pain (Primary Dx) 07/19/2024 Documentation [facility] [address] [place] [address] [address] [place] [address] Cherie Ramirez, [facility] Social Work Services 06/26/2024 Orders Only [facility] Orthopaedic Surgery [address] [facility] Medicine 6th [place] [address] [place] [address] Michael Corona MD Encounter for examination of [...] for 5 days 10 tablet 09/20/19 25 Active acetaminophen (TYLENOL) 500 mg tablet Take [...] Insurance Qualify for In Clinic PT? 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 Assessment & Plan (08/09/2019 7:07 PM SECURITY INVESTIGATOR): Patient presents with complaints of ongoing abdominal [...] 07/29/2019 Assessment & Plan (08/10/2019 10:48 AM SECURITY INVESTIGATOR): Ongoing nausea post cholecystectomy w/o vomiting. Tolerating PO, no emesis overnight - prn zofran - ADAT Assessment & Plan (08/09/2019 7:17 PM SECURITY INVESTIGATOR): Ongoing nausea post cholecystectomy w/o vomiting. - prn hope - ADAT Calculus of gallbladder 07/29/2019 Dizziness 07/29/2019 Assessment & Plan (08/10/2019 10:59 AM SECURITY INVESTIGATOR): Patient describes dizziness related to uncontrolled abdominal pain. He endorses pain starts in RQ and moves to head . He then becomes diaphoretic, nauseous. Improved this AM. Likely vasovagal, hemodynamically stable. - discussed proper hydration and symptom management Assessment & Plan (08/09/2019 7:16 PM SECURITY INVESTIGATOR): Patient describes dizziness related to uncontrolled abdominal pain. He endorses pain starts in RQ and moves to head . He then becomes diaphoretic, nauseous. - likely vasovagal, s/p 1 L LR in ED. CTM Intractable right upper quadrant abdominal pain 07/29/2019 Overview (08/01/2019): Added automatically from request for surgery [id number] Adjustment disorder with depressed mood in remis [...] drink = 0.6 oz pur e alcohol) [facility] Utilities Answer Date Recorded In the past 12 months has [employer], gas, oil, or water [employer] threatened to shut off services in your home? Patient declined 08/14/2024 Social Connection and Isolation Panel [NHANES] A nswer Date Recorded In a typical week, how many times do you talk on the phone with family, friends, or neighbors? Patient declined 08/14/2024 How often do you get togethe r with friends or relatives? Patient declined 08/14/2024 How often do you attend anabaptist or mu-ism serv ices? Patient declined 08/14/2024 Do you belong to any clubs o r organizations such as anabaptist groups, unions, fraternal or athletic groups, or [...] were you homeless or living in a halfway (including now)? Patient declined 08/14/2024 Personal Safety Answer Date Recorded Have you ever been in or are you currently in a harmful physical or emotional relationship or is someone making you feel afraid or unsafe? Denies 09/24/2024 Sex and Gender Information Value Date Recorded Sex Assigned at Not on file Legal Sex Male 9:25 PM SECURITY INVESTIGATOR Gender Identity Not on file Sexual Orientation Straight 11/18/2022 7: 07 PM CDT Last Filed Vital Signs Vital Sign Reading Time Taken Comments Blood Pressure 123/75 09/24/2024 12:17 PM SECURITY INVESTIGATOR Pulse 85 09/24/2024 12:17 PM SECURITY INVESTIGATOR Temperature 36.7 C (98 F) 09/24/2024 12:17 PM SECURITY INVESTIGATOR Respiratory Rate 16 09/24/2024 12:17 PM SECURITY INVESTIGATOR Oxygen Saturation 100% 09/24/2024 12:17 PM SECURITY INVESTIGATOR Inhaled Oxygen Concentration - - Weight 74.8 kg (165 lb) 09/24/2024 12:17 PM SECURITY INVESTIGATOR Height 172.7 cm (5' 8 ) 09/24/2024 12:17 PM SECURITY INVESTIGATOR Body Mass Index 25.09 09/24/2024 12:17 PM SECURITY INVESTIGATOR Plan of Treatment Not on file Procedures Procedure Name Priority Date/Time Associated Diagnosis Comments POC INFLUENZA A/B, COVID-19 ANTIGEN Routine 09/22/2024 5:30 PM SECURITY INVESTIGATOR Nasal congestion INFLUENZA A/B, RSV, AND COVID-19 PCR STAT 09/20/2024 1:25 AM SECURITY INVESTIGATOR PRO B-TYPE NATRIURETIC PEPTIDE Add-On 09/18/2024 1:35 PM SECURITY INVESTIGATOR EGFR STAT 09/18/2024 1:35 PM SECURITY INVESTIGATOR DIFFERENTIAL AUTO STAT 09/18/2024 1:3 5 PM SECURITY INVESTIGATOR COMPREHENSIVE METABOLIC PANEL STAT 09/18/2024 1:35 PM SECURITY INVESTIGATOR CBC WITH AUTO DIFFERENTIAL STAT 09/18/2024 1:35 PM SECURITY INVESTIGATOR EGFR STAT 09/11/2024 9:10 PM SECURITY INVESTIGATOR DIFFERENTIAL AUTO STAT 09/11/2024 9:1 0 PM SECURITY INVESTIGATOR PRO B-TYPE NATRIURETIC PEPTIDE STAT 09/11/2024 9:10 PM SECURITY INVESTIGATOR COMPREHENSIVE METABOLIC PANEL STAT 09/11/2024 9:10 PM SECURITY INVESTIGATOR CBC WITH AUTO DIFFERENTIAL STAT 09/11/2024 9:10 PM SECURITY INVESTIGATOR EGFR STAT 09/07/2024 2:59 AM SECURITY INVESTIGATOR DIFFERENTIAL AUTO STAT 09/07/2024 2:5 9 AM SECURITY INVESTIGATOR BASIC METABOLIC PANEL STAT 09/07/2024 2:59 AM SECURITY INVESTIGATOR CBC WITH AUTO DIFFERENTIAL STAT 09/07/2024 2:59 AM SECURITY INVESTIGATOR US VEIN DUPLEX LOWER EXTREMITY BILATERAL COMPLETE ED 09/03/2024 7:37 PM SECURITY INVESTIGATOR MRI SHOULDER RIGHT WO CONTRAST Schedule Routine, Read Routine (OP Routine) 09/02/2024 9:06 AM SECURITY INVESTIGATOR Right anterior shoulder pain XR ANKLE RIGHT 2 VIEWS ED 09/01/2024 9:33 PM SECURITY INVESTIGATOR XR TIBIA FIBULA RIGHT2 VIEWS ED 09/01/2024 8:37 AM SECURITY INVESTIGATOR XR ANKLE RIGHT 3 OR MORE VIEWS ED 08/31/2024 10:35 PM SECURITY INVESTIGATOR XR FOOT RIGHT 3 OR MORE VIEWS ED 08/31/2024 10:34 PM SECURITY INVESTIGATOR EGFR STAT 08/23/2024 2:33 AM SECURITY INVESTIGATOR DIFFERENTIAL AUTO STAT 08/23/2024 2:3 3 AM SECURITY INVESTIGATOR PRO B-TYPE NATRIURETIC PEPTIDE STAT 08/23/2024 2:33 AM SECURITY INVESTIGATOR COMPREHENSIVE METABOLIC PANEL STAT 08/23/2024 2:33 AM SECURITY INVESTIGATOR CBC WITH AUTO DIFFERENTIAL STAT 08/23/2024 2:33 AM SECURITY INVESTIGATOR SEPSIS LACTATE WITH REFLEX Routine 08/23/2024 2:33 AM SECURITY INVESTIGATOR BLOOD CULTURE Routine 08/23/2024 2:33 AM SECURITY INVESTIGATOR BLOOD CULTURE Routine 08/23/2024 2:33 AM SECURITY INVESTIGATOR ECG 12-LEAD STAT 08/23/2024 2:32 AM SECURITY INVESTIGATOR EGFR STAT 08/21/2024 12:35 AM SECURITY INVESTIGATOR DIFFERENTIAL AUTO STAT 08/21/2024 12: 35 AM SECURITY INVESTIGATOR CRP (ACUTE PHASE) STAT 08/21/2024 12: 35 AM SECURITY INVESTIGATOR ERYTHROCYTE SEDIMENTATION RATE STAT 08/21/2024 12:35 AM SECURITY INVESTIGATOR BASIC METABOLIC PANEL STAT 08/21/2024 12:35 AM SECURITY INVESTIGATOR CBC WITH AUTO DIFFERENTIAL STAT 08/21/2024 12:35 AM SECURITY INVESTIGATOR STREPTOCOCCUS GROUP A PCR STAT 08/20/2024 9:19 AM SECURITY INVESTIGATOR RESPIRATORY PATHOGEN PANEL Routine 08/20/2024 9:19 AM SECURITY INVESTIGATOR D-DIMER, QUANTITATIVE STAT 08/15/2024 1:08 AM SECURITY INVESTIGATOR PRO B-TYPE NATRIURETIC PEPTIDE STAT 08/14/2024 9:59 PM SECURITY INVESTIGATOR EGFR STAT 08/14/2024 9:59 PM SECURITY INVESTIGATOR DIFFERENTIAL AUTO STAT 08/14/2024 9:5 9 PM SECURITY INVESTIGATOR LIPASE STAT 08/14/2024 9:59 PM SECURITY INVESTIGATOR COMPREHENSIVE METABOLIC PANEL STAT 08/14/2024 9:59 PM SECURITY INVESTIGATOR CBC WITH AUTO DIFFERENTIAL STAT 08/14/2024 9:59 PM SECURITY INVESTIGATOR TRANSTHORACIC ECHO (TTE) COMPLETE W DOPPLER/CF WO CONTRAST Routine 08/14/2024 11:39 AM SECURITY INVESTIGATOR HEPATIC FUNCTION PANEL Routine 08/13/2024 5:30 AM SECURITY INVESTIGATOR EGFR Routine 08/13/2024 5:30 AM SECURITY INVESTIGATOR CBC WITHOUT DIFFERENTIAL Routine 08/13/2024 5:30 AM SECURITY INVESTIGATOR PHOSPHORUS Routine 08/13/2024 5:30 AM SECURITY INVESTIGATOR MAGNESIUM Routine 08/13/2024 5:30 AM SECURITY INVESTIGATOR BASIC METABOLIC PANEL Routine 08/13/2024 5:30 AM SECURITY INVESTIGATOR FERRITIN Routine 08/13/2024 5:30 AM SECURITY INVESTIGATOR DRUGS OF ABUSE SCREEN, URINE WITH REFLEX CONFIRMATION Routine 08/13/2024 12:15 AM SECURITY INVESTIGATOR URINALYSIS AND REFLEX TO MICROSCOPIC AND CULTURE STAT 08/13/2024 12:15 [address] CHEST PE W CONTRAST ED 08/12/2024 11:48 PM SECURITY INVESTIGATOR US VEIN DUPLEX LOWER EXTREMITY BILATERAL COMPLETE ED 08/12/2024 11:46 PM SECURITY INVESTIGATOR US RUQ ED 08/12/2024 11:38 PM SECURITY INVESTIGATOR ADD ON LAB TEST Add-On 08/12/2024 10:[address] HEAD AND CERVICAL SPINE WO CONTRAST ED 08/12/2024 10:20 PM SECURITY INVESTIGATOR D-DIMER, QUANTITATIVE STAT 08/12/2024 10:05 PM SECURITY INVESTIGATOR PROTIME-INR STAT 08/12/2024 10:05 PM SECURITY INVESTIGATOR ADD ON LAB TEST Add-On 08/12/2024 9:53 PM SECURITY INVESTIGATOR ADD ON LAB TEST Add-On 08/12/2024 9:53 PM SECURITY INVESTIGATOR ADD ON LAB TEST Add-On 08/12/2024 9:53 PM SECURITY INVESTIGATOR ADD ON LAB TEST Add-On 08/12/2024 9:53 PM SECURITY INVESTIGATOR ADD ON LAB TEST Add-On 08/12/2024 9:53 PM SECURITY INVESTIGATOR ADD ON LAB TEST Add-On 08/12/2024 9:53 PM SECURITY INVESTIGATOR ADD ON LAB TEST Add-On 08/12/2024 9:53 PM SECURITY INVESTIGATOR ETHANOL STAT 08/12/2024 9:52 PM SECURITY INVESTIGATOR TROPONIN T HIGH-SENSITIVITY 2-HOUR Timed 08/12/2024 9:52 PM SECURITY INVESTIGATOR ACETAMINOPHEN LEVEL STAT 08/12/2024 9 :13 PM SECURITY INVESTIGATOR HEPATITIS PANEL, ACUTE STAT 08/12/2024 9:13 PM SECURITY INVESTIGATOR PRO B-TYPE NATRIURETIC PEPTIDE STAT 08/12/2024 8:08 PM SECURITY INVESTIGATOR THYROID FUNCTION CASCADE STAT 08/12/2024 8:08 PM SECURITY INVESTIGATOR FOLATE STAT 08/12/2024 8:08 PM SECURITY INVESTIGATOR IRON PROFILE W/ IBC STAT 08/12/2024 8 :08 PM SECURITY INVESTIGATOR VITAMIN B12 STAT 08/12/2024 8:08 PM SECURITY INVESTIGATOR MAGNESIUM STAT 08/12/2024 8:08 PM SECURITY INVESTIGATOR PHOSPHORUS STAT 08/12/2024 8:08 PM SECURITY INVESTIGATOR EGFR STAT 08/12/2024 8:08 PM SECURITY INVESTIGATOR DIFFERENTIAL AUTO STAT 08/12/2024 8:0 8 PM SECURITY INVESTIGATOR TROPONIN T HIGH-SENSITIVITY SERIES (BASELINE, 2HR, 4HR, 6HR) STAT 08/12/2024 8:08 PM SECURITY INVESTIGATOR COMPREHENSIVE METABOLIC PANEL STAT 08/12/2024 8:08 PM SECURITY INVESTIGATOR CBC WITH AUTO DIFFERENTIAL STAT 08/12/2024 8:08 PM SECURITY INVESTIGATOR XR CHEST PA LATERAL 2 VIEWS ED 08/12/2024 7:27 PM SECURITY INVESTIGATOR ECG 12-LEAD STAT 08/12/2024 6:48 PM SECURITY INVESTIGATOR XR CHEST PA LATERAL 2 VIEWS ED 08/11/2024 2:02 AM SECURITY INVESTIGATOR ECG 12-LEAD STAT 08/11/2024 1:43 AM SECURITY INVESTIGATOR XR CHEST PA LATERAL 2 VIEWS ED 08/08/2024 10:[address] HEAD WO CONTRAST ED 08/08/2024 1 0:34 PM SECURITY INVESTIGATOR ECG 12-LEAD STAT 08/08/2024 8:56 PM SECURITY INVESTIGATOR RESPIRATORY PATHOGEN PANEL Routine 08/06/2024 9:59 AM SECURITY INVESTIGATOR from Last 3 Months Results * POC Influenza A/B, COVID-19 antigen (09/22/2024 5:30 PM SECURITY INVESTIGATOR) Influenza A Ag, POC Negative Negative [facility] Influenza B Ag, POC Negative Negative [facility] COVID-19 Ag POC Presumptive Negative Presumptive Negative, Invalid [facility] Nasopharyngeal 09/22/2024 5: 30 PM SECURITY INVESTIGATOR us Charlene To NP POINT OF CARE TEST ORDE FRANCHESKA Final Result [facility] [address] [place] [address] * Influenza A/B, RSV, and COVID-19 PCR Nasopharyngeal (09/20/2024 1:25 AM SECURITY INVESTIGATOR) Pathologist [facility] COVID-19 RNA Negative Negative Influenza A RNA Negative Negative [facility] ([place]) Influenza B RNA Negative Negative [facility] ([place]) RSV RNA Negative [facility] ([place]ENN[place]) Comment: Interpretive data: Testing performed by [facility]. This test is performed using the [facility] Xpert Xpress CoV-2/Flu/RSV plus assay. This is [...] revised 2023 Nasopharyngeal 09/20/2024 1: 25 AM SECURITY INVESTIGATOR 09/20/2024 1:29 AM SECURITY INVESTIGATOR Narrative [facility] ([place] - 09/20/2024 2:07 AM SECURITY INVESTIGATOR Is the Patient experiencing symptoms consistent with COVID?->Yes us Cesar Chiang MD LAB MICROBIOLOGY - GENERAL ORD ERABLES Final Result [facility] ([place] [address] [facility] [place] [address] * eGFR (09/18/2024 1:35 PM SECURITY INVESTIGATOR) Pathologist [facility] eGFR >90 >=60 [...] last reviewed 2021. Blood 09/18/2024 1:35 PM SECURITY INVESTIGATOR 09/18/2024 1:38 PM SECURITY INVESTIGATOR us Megan Dill MD LAB BLOOD ORDERABLE S Final Result [facility] ([place]) [address] [facility] [place] [address] * Differential, auto (09/18/2024 1:35 PM SECURITY INVESTIGATOR) Neutrophil abs 4.8 1.5 - 6.5 K/cumm [...] revised on 2017. Blood 09/18/2024 1:35 PM SECURITY INVESTIGATOR 09/18/2024 1:38 PM SECURITY INVESTIGATOR us Megan Dill MD LAB BLOOD ORDERABLE S Final Result J[facility]LEN [facility] ([place]) [address] [facility] [place] [address] * Pro B-type natriuretic peptide (09/18/2024 1:35 PM SECURITY INVESTIGATOR) NT-proBNP <36 <=300 pg/mL Comment: Interpretive Comments: [...] et.al. Eur Heart J. 2006:27:330-337. 2. Xiomara IDEHL, Caryn MORAN. J. AM Meerson Cardiol: Cardiovasc Imag. 2009;2: 216- 225. Interpretive Data Last Revised Date: 2018. Blood 09/18/2024 1:35 PM SECURITY INVESTIGATOR 09/18/2024 6:28 PM SECURITY INVESTIGATOR us Jossue Cox NP LAB BLOOD ORDERABLES Final Result [facility] ([place]) [address] [facility] Department of Laboratories [place], [place] [id number] * CBC with auto differential (09/18/2024 1:35 PM SECURITY INVESTIGATOR) WBC 6.6 3.8 - 9.9 K/cumm Hgb [...] RDW CV 12.2 11.1 - 14.9 % [facility] ([place]) RDW SD 40.1 35.7 - 48.1 fL [facility] ([place]) NRBC abs 0.00 0.00 - 0.01 K/cumm [facility] ([place]) Blood 09/18/2024 1:35 PM SECURITY INVESTIGATOR 09/18/2024 1:38 PM SECURITY INVESTIGATOR us Megan Dill MD LAB BLOOD ORDERABLE S Final Result [facility] ([place]) [address] [facility] [place] [address] * Comprehensive metabolic panel (09/18/2024 1:35 PM SECURITY INVESTIGATOR) Sodium 140 135 - 145 mmol/L Potassium, pl 4.3 3.3 - 4.9 mmol/L [facility] Chloride 100 97 - 110 mmol/L [facility] CO2 29 22 - 32 mmol/L [facility] ([place]) Anion gap 10 2 - 15 mmol/L [facility] ([place] BUN 21 6 - 25 mg/dL [facility] Creatinine 1.02 0.80 - 1.30 mg/dL [facility] Glucose 72 70 - 199 mg/dL [facility] ([place]) Comment: Interpretive Data Fasting glucose [...] 2022. Calcium 9.5 8.5 - 10.3 mg/dL [facility] ([place]) Bilirubin, total 0.6 0.1 - [...] Hemolyzed S pecimen Blood 09/18/2024 1:35 PM SECURITY INVESTIGATOR 09/18/2024 1:38 PM SECURITY INVESTIGATOR us Megan Dill MD LAB BLOOD ORDERABLE S Final Result [facility] ([place] [address] [facility] [place] [address] * eGFR (09/11/2024 9:10 PM SECURITY INVESTIGATOR) eGFR >90 >=60 mL/min/1. 73 m2 Comment: [...] last reviewed 2021. Blood 09/11/2024 9:10 PM SECURITY INVESTIGATOR 09/11/2024 9:30 PM SECURITY INVESTIGATOR us Salena Crawley MD LAB BLOOD ORDERABLES Fin al Result [facility] [address] Department [place] [address] * Differential, auto (09/11/2024 9:10 PM SECURITY INVESTIGATOR) Neutrophil abs 3.8 1.5 - 6.5 K/cumm Imm gran abs 0.0 0.0 - 0.1 K/cumm [facility] Lymphocyte abs 1.1 0.8 - 3.3 K/cumm [facility] Monocyte abs 0.5 0.2 - 0.8 K/cumm [facility] Eosinophil abs 0.2 0.0 - 0.5 K/cumm [facility] Basophil abs 0.0 0.0 - 0.1 K/cumm [facility] Neutrophil pct 67.2 % [facility] Comment: Interpretive Data Percent cell count reference ranges are not reported, since discordance with absolute values may lead to misinterpretation of CBC data. Current Interpretive Data was last revised on 2017. Imm gran pct 0.4 % [facility] Comment: Interpretive Data Percent cell count reference ranges are not reported, since discordance with absolute values may lead to misinterpretation of CBC data. Current Interpretive Data was last revised on 2017. Lymphocyte pct 20.1 % [facility] Comment: Interpretive Data Percent cell count reference ranges are not reported, since discordance with absolute values may lead to misinterpretation of CBC data. Current Interpretive Data was last revised on 2017. Monocyte pct 8.6 % [facility] Comment: Interpretive Data Percent cell count reference ranges are not reported, since discordance with absolute values may lead to misinterpretation of CBC data. Current Interpretive Data was last revised on 2017. Eosinophil pct 3.2 % [facility] Comment: Interpretive Data Percent cell count reference ranges are not reported, since discordance with absolute values may lead to misinterpretation of CBC data. Current Interpretive Data was last revised on 2017. Basophil pct 0.5 % [facility] Comment: Interpretive Data Percent cell count reference ranges are not reported, since discordance with absolute values may lead to misinterpretation of CBC data. Current Interpretive Data was last revised on 2017. Blood 09/11/2024 9:10 PM SECURITY INVESTIGATOR 09/11/2024 9:30 PM SECURITY INVESTIGATOR us Salena Crawley MD LAB BLOOD ORDERABLES Fin al Result [facility]ADA [facility] [address] Department [place] [address] * Pro B-type natriuretic peptide (09/11/2024 9:10 PM SECURITY INVESTIGATOR) NT-proBNP <36 <=300 pg/mL Comment: Interpretive Comments: [...] Revised Date: 2018. Blood 09/11/2024 9:10 PM SECURITY INVESTIGATOR 09/11/2024 9:30 PM SECURITY INVESTIGATOR Salena Crawley MD LAB BLOOD ORDERABLES Fin al Result Performing Organization Address [facility] Co de Phone Number [facility] [address] Department [place] [employer] [place] [address] * CBC with auto differential (09/11/2024 9:10 PM SECURITY INVESTIGATOR) [facility] WBC 5.7 3.8 - 9.9 K/cumm Hgb 13.1 13.0 - 17.5 g/dL [facility] Hct 40.0 38.9 - 50.3 % [facility] Plt 184 150 - 400 K/cumm [facility] MPV 10.6 9.1 - 12.3 fL [facility] RBC 4.43 4.30 - 5.80 M/cumm [facility] MCV 90.3 81.3 - 96.4 fL [facility] MCH 29.6 27.1 - 33.3 pg [facility] MCHC 32.8 32.3 - 35.7 g/dL [facility] RDW CV 12.7 11.1 - 14.9 % [facility] RDW SD 41.7 35.7 - 48.1 fL [facility] NRBC abs 0.00 0.00 - 0.01 K/cumm [facility] Blood 09/11/2024 9:10 PM SECURITY INVESTIGATOR 09/11/2024 9:30 PM SECURITY INVESTIGATOR Salena Crawley MD LAB BLOOD ORDERABLES Fin al Result Performing Organization Address [facility]/ZIP Co de Phone Number [facility] [address] Department [place] [place] [address] * (ABNORMAL) Comprehensive metabolic panel (09/11/2024 9:10 PM SECURITY INVESTIGATOR) Pathologist [facility] Sodium 142 135 - 145 mmol/L Potassium, pl 4.3 3.3 - 4.9 mmol/L [facility] Chloride 101 97 - 110 mmol/L [facility] CO2 28 22 - 32 mmol/L [facility] Anion gap 13 2 - 15 mmol/L [facility] BUN 28(H) 6 - 25 mg/dL [facility] Creatinine 0.89 0.80 - 1.30 mg/dL [facility] Glucose 113 70 - 199 mg/dL [facility] Comment: Interpretive Data Fasting glucose [...] 2022. Calcium 9.2 8.5 - 10.3 mg/dL [facility] Bilirubin, total 0.8 0.1 - 1.2 mg/dL [facility] Protein, pl 6.7 6.5 - 8.5 g/dL [facility] Albumin 4.0 3.5 - 5.0 g/dL [facility] Alk phos 79 40 - 130 Units/L [facility] ALT 62(H) 7 - 55 Units/L [facility] AST 40 10 - 50 Units/L [facility] Comment:Slightly Hemolyzed S pecimen Blood 09/11/2024 9:10 PM SECURITY INVESTIGATOR 09/11/2024 9:30 PM SECURITY INVESTIGATOR us Salena Crawley MD LAB BLOOD ORDERABLES Fin al Result [facility] [address] Department [place] [address] * eGFR (09/07/2024 2:59 AM SECURITY INVESTIGATOR) eGFR >90 >=60 mL/min/1. 73 m2 Comment: [...] last reviewed 2021. Blood 09/07/2024 2:59 AM SECURITY INVESTIGATOR 09/07/2024 3:02 AM SECURITY INVESTIGATOR us Jair Armendariz MD LAB BLOOD ORDERABLES Final Result [address] [place] [address] * Differential, auto (09/07/2024 2:59 AM SECURITY INVESTIGATOR) Neutrophil abs 3.0 1.5 - 6.5 K/cumm Imm gran abs 0.0 0.0 - 0.1 K/cumm [facility] Lymphocyte abs 2.1 0.8 - 3.3 K/cumm [facility] Monocyte abs 0.4 0.2 - 0.8 K/cumm [facility] Eosinophil abs 0.2 0.0 - 0.5 K/cumm [facility] Basophil abs 0.0 0.0 - 0.1 K/cumm [facility] Neutrophil pct 51.2 % [facility] Comment: Interpretive Data Percent cell count reference ranges are not reported, since discordance with absolute values may lead to misinterpretation of CBC data. Current Interpretive Data was last revised on 2017. Imm gran pct 0.3 % [facility] Comment: Interpretive Data Percent cell count reference ranges are not reported, since discordance with absolute values may lead to misinterpretation of CBC data. Current Interpretive Data was last revised on 2017. Lymphocyte pct 36.9 % [facility] Comment: Interpretive Data Percent cell count reference ranges are not reported, since discordance with absolute values may lead to misinterpretation of CBC data. Current Interpretive Data was last revised on 2017. Monocyte pct 6.9 % [facility] Comment: Interpretive Data Percent cell count reference ranges are not reported, since discordance with absolute values may lead to misinterpretation of CBC data. Current Interpretive Data was last revised on 2017. Eosinophil pct 4.0 % [facility] Comment: Interpretive Data Percent cell count reference ranges are not reported, since discordance with absolute values may lead to misinterpretation of CBC data. Current Interpretive Data was last revised on 2017. Basophil pct 0.7 % [facility] Comment: Interpretive Data Percent cell count reference ranges are not reported, since discordance with absolute values may lead to misinterpretation of CBC data. Current Interpretive Data was last revised on 2017. Blood 09/07/2024 2:59 AM SECURITY INVESTIGATOR 09/07/2024 3:02 AM SECURITY INVESTIGATOR Jair Armendariz MD LAB BLOOD ORDERABLES Final Result [address] [place] [address] * (ABNORMAL) CBC with auto differential (09/07/2024 2:59 AM SECURITY INVESTIGATOR) Pathologist [facility] WBC 5.8 3.8 - 9.9 K/cumm Hgb 12.3(L) 13.0 - 17.5 g/dL [facility] Hct 37.2(L) 38.9 - 50.3 % [facility] Plt 163 150 - 400 K/cumm [facility] MPV 10.4 9.1 - 12.3 fL [facility] RBC 4.17(L) 4.30 - 5.80 M/cumm [facility] MCV 89.2 81.3 - 96.4 fL [facility] MCH 29.5 27.1 - 33.3 pg [facility] MCHC 33.1 32.3 - 35.7 g/dL [facility] RDW CV 12.6 11.1 - 14.9 % [facility] RDW SD 41.1 35.7 - 48.1 fL [facility] NRBC abs 0.00 0.00 - 0.01 K/cumm [facility] Blood 09/07/2024 2:59 AM SECURITY INVESTIGATOR 09/07/2024 3:02 AM SECURITY INVESTIGATOR us Jair Armendariz MD LAB BLOOD ORDERABLES Final Result [facility] [address] [facility] Department [place] [address] * Basic metabolic panel (09/07/2024 2:59 AM SECURITY INVESTIGATOR) Sodium 143 135 - 145 mmol/L Potassium, pl 4.4 3.3 - 4.9 mmol/L [facility] Chloride 109 97 - 110 mmol/L [facility] CO2 25 22 - 32 mmol/L [facility] Anion gap 9 2 - 15 mmol/L [facility] BUN 24 6 - 25 mg/dL [facility] Creatinine 0.87 0.80 - 1.30 mg/dL [facility] Glucose 86 70 - 199 mg/dL [facility] Comment: Interpretive Data Fasting glucose [...] 2022. Calcium 9.1 8.5 - 10.3 mg/dL [facility] Blood 09/07/2024 2:59 AM SECURITY INVESTIGATOR 09/07/2024 3:02 AM SECURITY INVESTIGATOR Jair Armendariz MD LAB BLOOD ORDERABLES Final Result [facility] [address] [place] [address] * US Vein Duplex Lower Extremity Bilateral Complete (09/03/2024 7:37 PM SECURITY INVESTIGATOR) Anatomical Region Laterality Modality Vascular Bilateral Ultrasound 09/04/2024 2:26 PM SECURITY INVESTIGATOR Impressions 09/04/2024 2:26 PM SECURITY INVESTIGATOR 1. No evidence of DVT in the lower extremities bilaterally. 2. Evidence of pulsatile venous flow. This may suggest increased intravascular volume or right-sided valvular heart disease. Clinical correlation suggested. 3. No change when compared to previous studies. Electronically signed by: Lv Smart M.D. Narrative 09/04/2024 2:26 PM SECURITY INVESTIGATOR Lower Extremity Vein Duplex Bilateral DATE: 09/03/2024 [...] Shoulder Right WO Contrast (09/02/2024 9:06 AM SECURITY INVESTIGATOR) Anatomical Region Laterality Modality Upper Extremities Right Magnetic Reson ance 09/02/2024 11:0 8 AM SECURITY INVESTIGATOR Impressions 09/02/2024 12:42 PM SECURITY INVESTIGATOR 1. Minimal right rotator cuff tendinopathy without [...] Gudelia Berger MD Narrative 09/02/2024 12:42 PM SECURITY INVESTIGATOR EXAMINATION: 1. MRI right shoulder without contrast [...] Ankle Right 2 Views (09/01/2024 9:33 PM SECURITY INVESTIGATOR) Anatomical Region Laterality Modality Lower Extremities, Ankle Right Compute d Radiography 09/02/2024 8:13 AM SECURITY INVESTIGATOR Impressions 09/02/2024 8:13 AM SECURITY INVESTIGATOR There is mild swelling about the right ankle. There is a fracture of the base of 5th metacarpal, similar to prior. No additional fractures. The joints are normal. Electronically signed by: Brice Mantilla M.D. Narrative 09/02/2024 8:13 AM SECURITY INVESTIGATOR EXAMINATION: XR ANKLE RIGHT 2 VIEWS HISTORY: [...] Fibula Right 2 views (09/01/2024 8:37 AM SECURITY INVESTIGATOR) Anatomical Region Laterality Modality Lower Extremities, Lower Leg Right Com puted Radiography 09/01/2024 8:45 AM SECURITY INVESTIGATOR Impressions 09/01/2024 8:45 AM SECURITY INVESTIGATOR No acute fracture of the tibia or fibula. Alignment is normal. Electronically signed by: Greg Joy M.D. Narrative 09/01/2024 8:45 AM SECURITY INVESTIGATOR EXAMINATION: XR TIBIA FIBULA RIGHT2 VIEWS HISTORY: [...] 3 or More Views (08/31/2024 10:35 PM SECURITY INVESTIGATOR) Anatomical Region Laterality Modality Lower Extremities, Ankle Right Compute d Radiography 09/01/2024 11:1 6 AM SECURITY INVESTIGATOR Impressions 09/01/2024 11:16 AM SECURITY INVESTIGATOR Comparison is made to a prior study [...] Ness Liz M.D. Narrative 09/01/2024 11:16 AM SECURITY INVESTIGATOR EXAMINATION: XR ANKLE RIGHT 3 OR MORE [...] 3 or More Views (08/31/2024 10:34 PM SECURITY INVESTIGATOR) Anatomical Region Laterality Modality Lower Extremities, Foot Right Computed Radiography 09/01/2024 11:1 6 AM SECURITY INVESTIGATOR Impressions 09/01/2024 11:16 AM SECURITY INVESTIGATOR Comparison is made to a prior study [...] Ness Liz M.D. Narrative 09/01/2024 11:16 AM SECURITY INVESTIGATOR EXAMINATION: XR ANKLE RIGHT 3 OR MORE [...] Sepsis Lactate w/ Reflex (08/23/2024 2:33 AM SECURITY INVESTIGATOR) Sepsis Lactate 0.7 0.7 - 2.0 mmol/L Blood 08/23/2024 2:33 AM SECURITY INVESTIGATOR 08/23/2024 2:46 AM SECURITY INVESTIGATOR Salena Crawley MD LAB BLOOD ORDERABLES Fin al Result Performing Organization Address [facility]/ZIP Co de Phone Number JADA [facility] [address] [place] [address] * eGFR (08/23/2024 2:33 AM SECURITY INVESTIGATOR) eGFR >90 >=60 mL/min/1. 73 m2 Comment: [...] last reviewed 2021. Blood 08/23/2024 2:33 AM SECURITY INVESTIGATOR 08/23/2024 3:24 AM SECURITY INVESTIGATOR Salena Crawley MD LAB BLOOD ORDERABLES Fin al Result Performing Organization Address [facility]/ZIP Co de Phone Number [facility] [address] Department [employer] [place] [address] * Differential, auto (08/23/2024 2:33 AM SECURITY INVESTIGATOR) Neutrophil abs 3.1 1.5 - 6.5 K/cumm Imm gran abs 0.0 0.0 - 0.1 K/cumm [facility] Lymphocyte abs 2.0 0.8 - 3.3 K/cumm [facility] Monocyte abs 0.5 0.2 - 0.8 K/cumm [facility] Eosinophil abs 0.2 0.0 - 0.5 K/cumm [facility] Basophil abs 0.1 0.0 - 0.1 K/cumm [facility] Neutrophil pct 53.2 % [facility] Comment: Interpretive Data Percent cell count reference ranges are not reported, since discordance with absolute values may lead to misinterpretation of CBC data. Current Interpretive Data was last revised on 2017. Imm gran pct 0.2 % [facility] Comment: Interpretive Data Percent cell count reference ranges are not reported, since discordance with absolute values may lead to misinterpretation of CBC data. Current Interpretive Data was last revised on 2017. Lymphocyte pct 34.0 % [facility] Comment: Interpretive Data Percent cell count reference ranges are not reported, since discordance with absolute values may lead to misinterpretation of CBC data. Current Interpretive Data was last revised on 2017. Monocyte pct 7.8 % [facility] Comment: Interpretive Data Percent cell count reference ranges are not reported, since discordance with absolute values may lead to misinterpretation of CBC data. Current Interpretive Data was last revised on 2017. Eosinophil pct 3.8 % [facility] Comment: Interpretive Data Percent cell count reference ranges are not reported, since discordance with absolute values may lead to misinterpretation of CBC data. Current Interpretive Data was last revised on 2017. Basophil pct 1.0 % [facility] Comment: Interpretive Data Percent cell count reference ranges are not reported, since discordance with absolute values may lead to misinterpretation of CBC data. Current Interpretive Data was last revised on 2017. Blood 08/23/2024 2:33 AM SECURITY INVESTIGATOR 08/23/2024 3:24 AM SECURITY INVESTIGATOR us Salena Crawley MD LAB BLOOD ORDERABLES Fin al Result Performing Organization Address [facility] Co de Phone Number [facility] [address] Department [place] [address] * Pro B-type natriuretic peptide (08/23/2024 2:33 AM SECURITY INVESTIGATOR) NT-proBNP <36 <=300 pg/mL Comment: Interpretive Comments: [...] Revised Date: 2018. Blood 08/23/2024 2:33 AM SECURITY INVESTIGATOR 08/23/2024 3:24 AM SECURITY INVESTIGATOR us Salena Crawley MD LAB BLOOD ORDERABLES Fin al Result Performing Organization Address [facility]/ZIP Co de Phone Number [facility] [address] Department [place] [address] * (ABNORMAL) CBC with auto differential (08/23/2024 2:33 AM SECURITY INVESTIGATOR) Pathologist [facility] WBC 5.8 3.8 - 9.9 K/cumm Hgb 12.9(L) 13.0 - 17.5 g/dL [facility] Hct 39.2 38.9 - 50.3 % [facility] Plt 205 150 - 400 K/cumm [facility] MPV 10.8 9.1 - 12.3 fL [facility] RBC 4.39 4.30 - 5.80 M/cumm [facility] MCV 89.3 81.3 - 96.4 fL [facility] MCH 29.4 27.1 - 33.3 pg [facility] MCHC 32.9 32.3 - 35.7 g/dL [facility] RDW CV 12.8 11.1 - 14.9 % [facility] RDW SD 41.8 35.7 - 48.1 fL [facility] NRBC abs 0.00 0.00 - 0.01 K/cumm [facility] Blood 08/23/2024 2:33 AM SECURITY INVESTIGATOR 08/23/2024 3:24 AM SECURITY INVESTIGATOR Salena Crawley MD LAB BLOOD ORDERABLES Fin al Result [facility] [address] Department [place] [address] * Blood culture Blood (08/23/2024 2:33 AM SECURITY INVESTIGATOR) Pathologist [facility] Report Final Report: No growth Blood 08/23/2024 2:33 AM SECURITY INVESTIGATOR 08/23/2024 2:47 AM SECURITY INVESTIGATOR Narrative [facility] - 08/28/2024 7:01 AM SECURITY INVESTIGATOR From a different site than #1. Collection->Peripheral [...] organism identification may be performed using the [employer] Blood Culture Identification panel. This assay detects microbial DNA in a blood culture broth. This assay has been cleared by the [place] Food and Drug Administration and its performance characteristics have been verified by the [facility]. Interpretive data was last revised on September 03, 2022. Salena Crawley MD LAB MICROBIOLOGY - GENER AL ORDERABLES Final Result Performing Organization Address [facility] de Phone Number [facility] [address] Department [place] [employer] [place] [address] * Blood culture Blood (08/23/2024 2:33 AM SECURITY INVESTIGATOR) Report Final Report: No growth Blood 08/23/2024 2:33 AM SECURITY INVESTIGATOR 08/23/2024 2:48 AM SECURITY INVESTIGATOR Narrative [facility] - 08/28/2024 7:01 AM SECURITY INVESTIGATOR Collection->Peripheral Interpretive Data 1. Blood cultures are incubated and monitored continuously for 5 days (120 hours). The first negative report is issued within 24 hours of receipt in the laboratory. 2. All positive cultures are resulted and called to physicians/care providers as soon as they are detected. 3. A rapid molecular test for organism identification may be performed using the [employer] Blood Culture Identification panel. This assay detects microbial DNA in a blood culture broth. This assay has been cleared by the [place] Food and Drug Administration and its performance characteristics have been verified by the [facility]. Interpretive data was last revised on September 03, 2022. Salena Crawley MD LAB MICROBIOLOGY - GENER AL ORDERABLES Final Result Performing Organization Address [facility] de Phone Number [facility] [address] Department of [employer] [place], [place] [id number] * (ABNORMAL) Comprehensive metabolic panel (08/23/2024 2:33 AM SECURITY INVESTIGATOR) Sodium 140 135 - 145 mmol/L Potassium, pl 3.9 3.3 - 4.9 mmol/L [facility] Chloride 104 97 - 110 mmol/L [facility] CO2 25 22 - 32 mmol/L [facility] Anion gap 11 2 - 15 mmol/L [facility] BUN 24 6 - 25 mg/dL [facility] Creatinine 0.82 0.80 - 1.30 mg/dL [facility] Glucose 83 70 - 199 mg/dL [facility] Comment: Interpretive Data Fasting glucose [...] 2022. Calcium 9.3 8.5 - 10.3 mg/dL [facility] Bilirubin, total 0.6 0.1 - 1.2 mg/dL [facility] Protein, pl 6.9 6.5 - 8.5 g/dL [facility] Albumin 4.0 3.5 - 5.0 g/dL [facility] Alk phos 70 40 - 130 Units/L [facility] ALT 65(H) 7 - 55 Units/L [facility] AST 30 10 - 50 Units/L [facility] Comment:Slightly Hemolyzed S pecimen Blood 08/23/2024 2:33 AM SECURITY INVESTIGATOR 08/23/2024 3:24 AM SECURITY INVESTIGATOR us Salena Crawley MD LAB BLOOD ORDERABLES Fin al Result [facility] [address] Department [place] [address] * ECG 12 lead (08/23/2024 2:32 AM SECURITY INVESTIGATOR) 08/23/2024 2:32 AM SECURITY INVESTIGATOR Narrative [facility] - 08/24/2024 4:38 PM SECURITY INVESTIGATOR Vent Rate: 64 bpm RR Interval: 935 msec [place] Interval: 174 msec QRS Duration: 109 msec QT Interval: 409 msec QTC Interval: 418 msec P-R-T [place]: 68 - 81 - 41 degrees IMPRESSION: SINUS RHYTHM NORMAL ECG Electronically Signed By: Andrea Moralez MD [facility] us Salena Crawley MD ECG ORDERABLES Final Re sult [facility] * eGFR (08/21/2024 12:35 AM SECURITY INVESTIGATOR) eGFR >90 >=60 mL/min/1. 73 m2 Comment: [...] reviewed 2021. Blood 08/21/2024 12:3 5 AM SECURITY INVESTIGATOR 08/21/2024 12:40 AM SECURITY INVESTIGATOR us Magalis MARQUES LAB BLOOD ORDERABLE S Final Result [facility]ADA [facility] [address] [place] [address] * Differential, auto (08/21/2024 12:35 AM SECURITY INVESTIGATOR) Neutrophil abs 3.7 1.5 - 6.5 K/cumm Imm gran abs 0.0 0.0 - 0.1 K/cumm [facility] Lymphocyte abs 2.2 0.8 - 3.3 K/cumm [facility] Monocyte abs 0.6 0.2 - 0.8 K/cumm [facility] Eosinophil abs 0.3 0.0 - 0.5 K/cumm [facility] Basophil abs 0.1 0.0 - 0.1 K/cumm [facility] Neutrophil pct 54.1 % [facility] Comment: Interpretive Data Percent cell count reference ranges are not reported, since discordance with absolute values may lead to misinterpretation of CBC data. Current Interpretive Data was last revised on 2017. Imm gran pct 0.1 % [facility] Comment: Interpretive Data Percent cell count reference ranges are not reported, since discordance with absolute values may lead to misinterpretation of CBC data. Current Interpretive Data was last revised on 2017. Lymphocyte pct 32.5 % [facility] Comment: Interpretive Data Percent cell count reference ranges are not reported, since discordance with absolute values may lead to misinterpretation of CBC data. Current Interpretive Data was last revised on 2017. Monocyte pct 8.3 % [facility] Comment: Interpretive Data Percent cell count reference ranges are not reported, since discordance with absolute values may lead to misinterpretation of CBC data. Current Interpretive Data was last revised on 2017. Eosinophil pct 4.3 % [facility] Comment: Interpretive Data Percent cell count reference ranges are not reported, since discordance with absolute values may lead to misinterpretation of CBC data. Current Interpretive Data was last revised on 2017. Basophil pct 0.7 % [facility] Comment: Interpretive Data Percent cell count reference ranges are not reported, since discordance with absolute values may lead to misinterpretation of CBC data. Current Interpretive Data was last revised on 2017. Blood 08/21/2024 12:3 5 AM SECURITY INVESTIGATOR 08/21/2024 12:40 AM SECURITY INVESTIGATOR Magalis MARQUES LAB BLOOD ORDERABLE S Final Result Performing Organization Address [facility]/ZIP Co de Phone Number [facility] [address] [place] [address] * (ABNORMAL) CBC with auto differential (08/21/2024 12:35 AM SECURITY INVESTIGATOR) Pathologist [facility] WBC 6.9 3.8 - 9.9 K/cumm Hgb 12.1(L) 13.0 - 17.5 g/dL [facility] Hct 36.8(L) 38.9 - 50.3 % [facility] Plt 200 150 - 400 K/cumm [facility] MPV 10.1 9.1 - 12.3 fL [facility] RBC 4.14(L) 4.30 - 5.80 M/cumm [facility] MCV 88.9 81.3 - 96.4 fL [facility] MCH 29.2 27.1 - 33.3 pg [facility] MCHC 32.9 32.3 - 35.7 g/dL [facility] RDW CV 12.8 11.1 - 14.9 % [facility] RDW SD 41.5 35.7 - 48.1 fL [facility] NRBC abs 0.00 0.00 - 0.01 K/cumm [facility] Blood 08/21/2024 12:3 5 AM SECURITY INVESTIGATOR 08/21/2024 12:40 AM SECURITY INVESTIGATOR Magalis MARQUES LAB BLOOD ORDERABLE S Final Result [facility] [address] [place] [address] * Erythrocyte sedimentation rate (08/21/2024 12:35 AM SECURITY INVESTIGATOR) Pathologist [facility] Erythrocyte sedimentation rate 5 1 - 15 mm/hr [facility] Blood 08/21/2024 12:3 5 AM SECURITY INVESTIGATOR 08/21/2024 12:40 AM SECURITY INVESTIGATOR Magalis Aguilera [place] LAB BLOOD ORDERABLE S Final Result Performing Organization Address City/[facility]/ZIP Co de Phone Number [address] [place] [address] * CRP (acute phase) (08/21/2024 12:35 AM SECURITY INVESTIGATOR) [facility] CRP <3.5 <=10.0 mg/L Blood 08/21/2024 12:3 5 AM SECURITY INVESTIGATOR 08/21/2024 12:40 AM SECURITY INVESTIGATOR Magalis Aguilera [place] LAB BLOOD ORDERABLE S Final Result Performing Organization Address [facility] de Phone Number [address] [place] [address] * (ABNORMAL) Basic metabolic panel (08/21/2024 12:35 AM SECURITY INVESTIGATOR) [facility] Sodium 140 135 - 145 mmol/L Potassium, pl 4.2 3.3 - 4.9 mmol/L [facility] Chloride 104 97 - 110 mmol/L [facility] CO2 26 22 - 32 mmol/L [facility] Anion gap 10 2 - 15 mmol/L [facility] BUN 34(H) 6 - 25 mg/dL [facility] Creatinine 0.91 0.80 - 1.30 mg/dL [facility] Glucose 96 70 - 199 mg/dL [facility] Comment: Interpretive Data Fasting glucose [...] 2022. Calcium 9.1 8.5 - 10.3 mg/dL [facility] Blood 08/21/2024 12:3 5 AM SECURITY INVESTIGATOR 08/21/2024 12:40 AM SECURITY INVESTIGATOR Magalis MARQUES LAB BLOOD ORDERABLE S Final Result Performing Organization Address [facility]/ZIP Co de Phone Number [facility] [address] [facility] [place] [address] * Streptococcus Group A PCR Throat (08/20/2024 9:19 AM SECURITY INVESTIGATOR) Strep A DNA Not Detected Not Detected Comment: This test is performed using the [employer] Xpert Group A Streptococcal Assay. This is [...] the performing laboratory. Throat 08/20/2024 9:19 AM SECURITY INVESTIGATOR 08/20/2024 9:22 AM SECURITY INVESTIGATOR Fei Murray MD LAB MICROBIOLOGY - GENERAL ORDERABLES Final Result Performing Organization Address City/[facility]/ZIP Co de Phone Number [facility] [address] Department [place] [address] [place] * Respiratory pathogen panel Nasopharyngeal (08/20/2024 9:19 AM SECURITY INVESTIGATOR) Pathologist [facility] Influenza A RNA Not Detected Not Detected Influenza B RNA Not Detected Not Detected [facility] RSV RNA Not Detected Not Detected [facility] COVID-19 RNA Not Detected Not Detected [facility] Coronavirus 229E RNA Not Detected Not Detected [facility] Coronavirus HKU1 RNA Not Detected Not Detected [facility] Coronavirus NL63 RNA Not Detected Not Detected [facility] Coronavirus OC43 RNA Not Detected Not Detected [facility] Adenovirus DNA Not Detected Not Detected [facility] Metapneumovirus RNA Not Detected Not Detected [facility] Rhinovirus/Enterov irus RNA Not Detected Not Detected [facility] Parainfluenza 1 RNA Not Detected Not Detected [facility] Parainfluenza 2 RNA Not Detected Not Detected [facility] Parainfluenza 3 RNA Not Detected Not Detected [facility] Parainfluenza 4 RNA Not Detected Not Detected [facility] B. pertussis DNA Not Detected Not Detected [facility] B. parapertussis DNA Not Detected Not Detected [facility] C. pneumoniae DNA Not Detected Not Detected [facility] M. pneumoniae DNA Not Detected Not Detected [facility] Comment: Interpretive Data The [employer] FilmArray Respiratory Panel (RP2.1) assay is [...] assay has FDA clearance for testing of PROCESS CONTROLLER swabs. The performance characteristics of this assay have been determined by [facility]. Current interpretive data was last revised on 2021. Nasopharyngeal 08/20/2024 9: 19 AM SECURITY INVESTIGATOR 08/20/2024 9:22 AM SECURITY INVESTIGATOR Narrative [facility]ADA [facility] - 08/20/2024 10:22 AM SECURITY INVESTIGATOR Is the Patient experiencing symptoms consistent with COVID?->Yes Surveillance testing for transplant patient?->No Fei Murray MD LAB MICROBIOLOGY - GENERAL ORDERABLES Final Result Performing Organization Address City/[facility]/ZIP Co de Phone Number [facility] [address] Department [place] [address] * (ABNORMAL) D-dimer, quantitative (08/15/2024 1:08 AM SECURITY INVESTIGATOR) D-Dimer 647(H) <=499 ng/mL FEU Comment: Interpretive [...] revised on 2019. Blood 08/15/2024 1:08 AM SECURITY INVESTIGATOR 08/15/2024 1:11 AM SECURITY INVESTIGATOR Maddison Muhammad PROCESS CONTROLLER LAB BLOOD ORDERABLES Final Resul t [facility] [address] [facility]. Department of [employer] [place], [place] [id number] * eGFR (08/14/2024 9:59 PM SECURITY INVESTIGATOR) eGFR >90 >=60 mL/min/1. 73 m2 Comment: [...] last reviewed 2021. Blood 08/14/2024 9:59 PM SECURITY INVESTIGATOR 08/14/2024 10:10 PM SECURITY INVESTIGATOR us Abigail Richards MD LAB BLOOD ORDERABLES Final Result [facility]ADA [facility] [address] [facility] Department [place] [employer] [place] [address] * Differential, auto (08/14/2024 9:59 PM SECURITY INVESTIGATOR) Neutrophil abs 3.7 1.5 - 6.5 K/cumm Imm gran abs 0.0 0.0 - 0.1 K/cumm [facility] Lymphocyte abs 2.0 0.8 - 3.3 K/cumm [facility] Monocyte abs 0.5 0.2 - 0.8 K/cumm [facility] Eosinophil abs 0.2 0.0 - 0.5 K/cumm [facility] Basophil abs 0.1 0.0 - 0.1 K/cumm [facility] Neutrophil pct 57.5 % [facility] Comment: Interpretive Data Percent cell count reference ranges are not reported, since discordance with absolute values may lead to misinterpretation of CBC data. Current Interpretive Data was last revised on 2017. Imm gran pct 0.2 % [facility] Comment: Interpretive Data Percent cell count reference ranges are not reported, since discordance with absolute values may lead to misinterpretation of CBC data. Current Interpretive Data was last revised on 2017. Lymphocyte pct 30.2 % [facility] Comment: Interpretive Data Percent cell count reference ranges are not reported, since discordance with absolute values may lead to misinterpretation of CBC data. Current Interpretive Data was last revised on 2017. Monocyte pct 7.6 % [facility] Comment: Interpretive Data Percent cell count reference ranges are not reported, since discordance with absolute values may lead to misinterpretation of CBC data. Current Interpretive Data was last revised on 2017. Eosinophil pct 3.4 % [facility] Comment: Interpretive Data Percent cell count reference ranges are not reported, since discordance with absolute values may lead to misinterpretation of CBC data. Current Interpretive Data was last revised on 2017. Basophil pct 1.1 % [facility] Comment: Interpretive Data Percent cell count reference ranges are not reported, since discordance with absolute values may lead to misinterpretation of CBC data. Current Interpretive Data was last revised on 2017. Blood 08/14/2024 9:59 PM SECURITY INVESTIGATOR 08/14/2024 10:10 PM SECURITY INVESTIGATOR us Abigail Richards MD LAB BLOOD ORDERABLES Final Result [facility] [address] [facility]. [place] [address] * Pro B-type natriuretic peptide (08/14/2024 9:59 PM SECURITY INVESTIGATOR) NT-proBNP 75 <=300 pg/mL Comment: Interpretive Comments: [...] Revised Date: 2018. Blood 08/14/2024 9:59 PM SECURITY INVESTIGATOR 08/14/2024 10:10 PM SECURITY INVESTIGATOR Abigail Richards MD LAB BLOOD ORDERABLES Final Result [facility] [address] [facility] [place]. [place] [address] * CBC with auto differential (08/14/2024 9:59 PM SECURITY INVESTIGATOR) Pathologist [facility] WBC 6.5 3.8 - 9.9 K/cumm Hgb 13.3 13.0 - 17.5 g/dL [facility]ADA [facility] Hct 39.8 38.9 - 50.3 % JADA GOO[facility] Plt 218 150 - 400 K/cumm [facility] MPV 10.0 9.1 - 12.3 fL [facility] RBC 4.49 4.30 - 5.80 M/cumm [facility] MCV 88.6 81.3 - 96.[address] [address] [facility] W MCH 29.6 27.1 - 33.[address] [facility] [facility] MCHC 33.4 32.3 - 35.7 g/dL [facility] W RDW CV 12.7 11.1 - 14.9 % [facility] W RDW SD 41.1 35.7 - 48.1 fL [facility] NRBC abs 0.00 0.00 - 0.01 K/cumm [facility] Blood (Blood, Venous) 08/14/2024 9:59 PM SECURITY INVESTIGATOR 08/14/2024 10:10 PM SECURITY INVESTIGATOR Abigail Richards MD LAB BLOOD ORDERABLES Final Result Performing Organization Address [facility] de Phone Number [facility] [address] [facility] [employer] [place] [address] * Lipase (08/14/2024 9:59 PM SECURITY INVESTIGATOR) [facility] Lipase 50 10 - 99 Units/L Blood (Blood, Venous) 08/14/2024 9:59 PM SECURITY INVESTIGATOR 08/14/2024 10:10 PM SECURITY INVESTIGATOR Abigail Richards MD LAB BLOOD ORDERABLES Final Result Performing Organization Address [facility] de Phone Number [facility] [address] [facility] [place] [address] * (ABNORMAL) Comprehensive metabolic panel (08/14/2024 9:59 PM SECURITY INVESTIGATOR) [facility] Sodium 139 135 - 145 mmol/L Potassium, pl 3.9 3.3 - 4.9 mmol/L [facility] Chloride 101 97 - 110 mmol/L [facility] CO2 27 22 - 32 mmol/L [facility] Anion gap 11 2 - 15 [...] Units/L [facility] Blood 08/14/2024 9:59 PM SECURITY INVESTIGATOR 08/14/2024 10:10 PM SECURITY INVESTIGATOR us Abigail Richards MD LAB BLOOD ORDERABLES Final Result JADA [facility] [address] [facility] [place]. [place] [address] * TRANSTHORACIC ECHO (TTE) COMPLETE W DOPPLER/CF WO CONTRAST (08/14/2024 11:39 AM SECURITY INVESTIGATOR) LV EF 55-60 % CONS SCIMAGE Anatomical Region Laterality Modality Ultrasound 08/14/2024 10:0 7 AM SECURITY INVESTIGATOR Narrative 08/14/2024 11:49 AM SECURITY INVESTIGATOR [facility] [address] [place] [address] ECHOCARDIOGRAM Patient Name: LISA AZAR : 1980 (43y 11m) Gender: M Study Date: 08/14/2024 10:07:30 AM Ht(Inch): 68 Wt(Lb): 173.06 BSA: 1.94 Outside Sales Associate: NINFA Location: [address] Order Provider: PHOEBE ADKINS BMI: 26.31 [...] VTI 22.9 cm Estimated EF 55-60 % MCIHAEL VTI 2.5 cm2 LA Dimension 2D 3.45 [...] Jerel Ramirez MD PhD 08/14/2024 11:48:00 AM SECURITY INVESTIGATOR Procedure Note Jerel Ramirez MD PhD - 08/14/2024 [place] [id number] [place] [address] ECHOCARDIOGRAM Patient Name: LISA AZAR : 1980 (43y 11m) Gender: M Study Date: 08/14/2024 10:07:30 AM Ht(Inch): 68 Wt(Lb): 173.06 BSA: 1.94 Outside Sales Associate: NINFA Location: [address] Order Provider: PHOEBE ADKINS BMI: 26.31 [...] Jerel Ramirez MD PhD 08/14/2024 11:48:00 AM SECURITY INVESTIGATOR us Phoebe Adkins MD CV ECHO PROCEDURES Final Result * eGFR (08/13/2024 5:30 AM SECURITY INVESTIGATOR) eGFR >90 >=60 mL/min/1. 73 m2 Comment: [...] last reviewed 2021. Blood 08/13/2024 5:30 AM SECURITY INVESTIGATOR 08/13/2024 6:25 AM SECURITY INVESTIGATOR us Phoebe Adkins MD LAB BLOOD ORDERABLES Final Resul t [facility] [address] Department [place] [address] * (ABNORMAL) CBC without differential (08/13/2024 5:30 AM SECURITY INVESTIGATOR) [facility] Signature WBC 5.7 3.8 - 9.9 K/cumm Hgb 11.9(L) 13.0 - 17.5 g/dL [facility] Hct 36.4(L) 38.9 - 50.3 % [facility] Plt 186 150 - 400 K/cumm [facility] MPV 10.6 9.1 - 12.3 fL [facility] RBC 4.01(L) 4.30 - 5.80 M/cumm [facility] MCV 90.8 81.3 - 96.4 fL [facility] MCH 29.7 27.1 - 33.3 pg [facility] MCHC 32.7 32.3 - 35.7 g/dL [facility] RDW CV 13.0 11.1 - 14.9 % [facility] RDW SD 43.0 35.7 - 48.1 fL [facility] NRBC abs 0.00 0.00 - 0.01 K/cumm [facility] Blood 08/13/2024 5:30 AM SECURITY INVESTIGATOR 08/13/2024 6:25 AM SECURITY INVESTIGATOR us Phoebe Adkins MD LAB BLOOD ORDERABLES Final Resul t Performing Organization Address City/[facility] Co de Phone Number [facility] [address] [facility] [employer] [place] [address] * Phosphorus (08/13/2024 5:30 AM SECURITY INVESTIGATOR) Phosphorus, pl 2.9 2.3 - 4.5 mg/dL Blood 08/13/2024 5:30 AM SECURITY INVESTIGATOR 08/13/2024 6:25 AM SECURITY INVESTIGATOR us Phoebe Adkins MD LAB BLOOD ORDERABLES Final Resul t Performing Organization Address [facility] de Phone Number [facility] [address] Department [place] [place] [address] * Magnesium (08/13/2024 5:30 AM SECURITY INVESTIGATOR) Magnesium 1.9 1.4 - 2.5 mg/dL Blood 08/13/2024 5:30 AM SECURITY INVESTIGATOR 08/13/2024 6:25 AM SECURITY INVESTIGATOR us Phoebe Adkins MD LAB BLOOD ORDERABLES Final Resul t Performing Organization Address [facility] Co de Phone Number [facility] [address] Department [place] [place] [address] * Ferritin (08/13/2024 5:30 AM SECURITY INVESTIGATOR) Ferritin 39 30 - 400 ng/mL Blood 08/13/2024 5:30 AM SECURITY INVESTIGATOR 08/13/2024 6:24 AM SECURITY INVESTIGATOR us Phoebe Adkins MD LAB BLOOD ORDERABLES Final Resul t Performing Organization Address [facility] Co de Phone Number [facility] [address] Department [place] [place] [address] * (ABNORMAL) Hepatic function panel (08/13/2024 5:30 AM SECURITY INVESTIGATOR) Pathologist [facility] Bilirubin, total 0.4 0.1 - 1.2 mg/dL Bilirubin, direct <0.2 0.1 - 0.3 mg/dL [facility] Protein, pl 5.9(L) 6.5 - 8.5 g/dL [facility] Albumin 3.5 3.5 - 5.0 g/dL [facility] Alk phos 71 40 - 130 Units/L [facility] ALT 200(H) 7 - 55 Units/L [facility] AST 101(H) 10 - 50 Units/L [facility] Blood 08/13/2024 5:30 AM SECURITY INVESTIGATOR 08/13/2024 6:25 AM SECURITY INVESTIGATOR us Russ Adkins MD LAB BLOOD ORDERABLES Final Resul t [facility] [address] Department [place] [address] * (ABNORMAL) Basic metabolic panel (08/13/2024 5:30 AM SECURITY INVESTIGATOR) [facility] Sodium 140 135 - 145 mmol/L Potassium, pl 4.1 3.3 - 4.9 mmol/L [facility] Chloride 106 97 - 110 mmol/L [facility] CO2 24 22 - 32 mmol/L [facility] Anion gap 10 2 - 15 mmol/L [facility] BUN 23 6 - 25 mg/dL [facility] Creatinine 0.82 0.80 - 1.30 mg/dL [facility] Glucose 87 70 - 199 mg/dL [facility] Comment: Interpretive Data Fasting glucose [...] 2022. Calcium 8.1(L) 8.5 - 10.3 mg/dL [facility] Blood 08/13/2024 5:30 AM SECURITY INVESTIGATOR 08/13/2024 6:25 AM SECURITY INVESTIGATOR Phoebe Adkins MD LAB BLOOD ORDERABLES Final Resul t [facility] [address] Department [place] [address] * Drugs of Abuse Screen, Urine with Reflex Confirmation (08/13/2024 12:15 AM SECURITY INVESTIGATOR) Amphetamine, ur Not Detected CutOff 500ng/mL Comment: Interpretive Data - Amphetamines: Samples containing greater than 500 ng/mL d-methamphetamine or other cross-reacting amphetamine compounds are reported as positive. Amphetamine immunoassays are subject to significant false positive rates due to cross-reactivity of non-amphetamine drugs. Confirmatory testing required for definitive results. Current Interpretive Data was last reviewed 2023. Barbiturates, ur Not Detected CutOff 200ng/mL [facility] Comment: Interpretive Data - Barbiturates: Samples containing greater than 200 ng/mL secobarbital or other cross-reacting barbiturate compounds are reported as positive. False positive and false negative results are possible. Confirmatory testing required for definitive results. Current Interpretive Data was last reviewed 2023. Benzodiazepines, ur Not Detected CutOff 100ng/mL [facility] Comment: Interpretive Data - Benzodiazepines: Samples containing greater than 100 ng/mL nordiazepam or other cross-reacting compounds are reported as positive. False positive and false negative results are possible. Confirmatory testing required for definitive results. Current Interpretive Data was last reviewed 2023. Cannabinoids, ur Not Detected CutOff 50 ng/mL [facility] Comment: Interpretive Data - Cannabinoids: Samples containing greater than 50 ng/mL delta-9 THC -COOH or other cross- reacting compounds are reported as positive. False positive and false negative results are possible. Confirmatory testing required for definitive results. Current Interpretive Data was last reviewed 2023. Cocaine, ur Not Detected CutOff 150ng/mL [facility] Comment: Interpretive Data - Cocaine: Samples containing greater than 150 ng/mL benzoylecgonine or other cross- reacting compounds are reported as positive. False positive and false negative results are possible. Confirmatory testing required for definitive results. Current Interpretive Data was last reviewed 2023. Fentanyl, Ur Not Detected CutOff 5 ng/mL [facility] Comment: Interpretive Data - Fentanyl: Samples containing greater than 5 ng/mL norfentanyl, fentanyl, or other cross-reacting fentanyl compounds are reported as positive. False positive and false negative results are possible. Confirmatory testing required for definitive results. Current Interpretive Data was last reviewed 2023. Methadone, ur Not Detected CutOff 300ng/mL [facility] Comment: Interpretive Data - Methadone: Samples containing greater than 300 ng/mL d,l-methadone or other cross-reacting compounds are reported as positive. False positive and false negative results are possible. Confirmatory testing required for definitive results. Current Interpretive Data was last reviewed 2023. Opiates, ur Not Detected CutOff 300ng/mL [facility] Comment: Interpretive Data - Opiates: Samples containing greater than 300 ng/mL morphine or other cross-reacting compounds are reported as positive. False positive and false negative results are possible. Confirmatory testing required for definitive results. Current Interpretive Data was last reviewed 2023. Oxycodone, ur Not Detected CutOff 100ng/mL [facility] Comment: Interpretive Data - Oxycodone: Samples containing greater than 100 ng/mL oxycodone or other cross-reacting compounds are reported as positive. False positive and false negative results are possible. Confirmatory testing required for definitive results. Current Interpretive Data was last reviewed 2023. Phencyclidine, ur Not Detected CutOff 25 ng/mL [facility] Comment: Interpretive Data - Phencyclidine: Samples containing greater than 25 ng/mL phencyclidine or other cross-reacting compounds are reported as positive. False positive and false negative results are possible. Confirmatory testing required for definitive results. Current Interpretive Data was last reviewed 2023. Urine Creatinine 90 mg/dL [facility] Comment: Interpretive Data Urine Creatinine: < 10 mg/dL is extremely dilute = or > 10 but < 20 mg/dL is dilute = or > 20 mg/dL is normal Current Interpretive Data was last revised on 2017. Urine 08/13/2024 12:1 5 AM SECURITY INVESTIGATOR 08/13/2024 12:26 AM SECURITY INVESTIGATOR Narrative [facility] - 08/13/2024 12:54 AM SECURITY INVESTIGATOR Drug of Abuse screening is performed by immunoassay for medical purposes only. This is not to be used for Pain Management purposes. If Detected, confirmation testing will be performed for Amphetamines, Cocaine, Fentanyl, Methadone, Opiates, Oxycodone or Phencyclidine. Batsheva Portillo MD LAB URINE ORDERABLES Final Result [facility] [address] Department [place] [address] * (ABNORMAL) Urinalysis reflex to microscopic and culture Urine (08/13/2024 12:15 AM SECURITY INVESTIGATOR) Color, ur Yellow Yellow Clarity, ur Clear Clear [facility] Specific gravity, ur >1.050(H) 1.003 - 1.030 [facility] pH, urine 6.5 [facility] Comment: Interpretive Data U rine pH is affected by diet, medications, systemic acid-base disturbances, and renal tubular function. pH may affect urinary stone formation. For example, urine pH below 6.0 may help reduce the tendency for calcium phosphate stones and pH greater than 6.0 may reduce the tendency for uric acid stone formation. Source: [facility] Current Interpretive Data was last revised on 2017 Protein, ur ql Negative Negative [facility] Glucose, ur ql Negative Negative [facility] Ketones, ur Negative Negative [facility] Bilirubin, ur Negative Negative [facility] Blood, ur Negative Negative [facility] Urobilinogen, ur <2.0 <2.0 mg/dL [facility] Nitrite, ur Negative Negative [facility] Leukocyte esterase, ur Negative Negative [facility] UA reflex comment Reflex conditions for microscopic UA and culture not met. [facility] Urine 08/13/2024 12:1 5 AM SECURITY INVESTIGATOR 08/13/2024 12:15 AM SECURITY INVESTIGATOR us Batsheva Ijeoma Portillo MD LAB MICROBIOLOGY - GENERAL ORDERABLES Final Result [facility] [address] Department [place] [address] * CT Chest PE (CTA) W Contrast (08/12/2024 11:48 PM SECURITY INVESTIGATOR) Anatomical Region Laterality Modality Body N/A Computed Tomogra phy 08/12/2024 11:4 3 PM SECURITY INVESTIGATOR Impressions 08/13/2024 9:24 AM SECURITY INVESTIGATOR No pulmonary embolism. Electronically signed by: Tari Gavin M.D. Narrative 08/13/2024 9:24 AM SECURITY INVESTIGATOR EXAMINATION: CT CHEST PE (CTA) W CONTRAST [...] Lower Extremity Bilateral Complete (08/12/2024 11:46 PM SECURITY INVESTIGATOR) Anatomical Region Laterality Modality Vascular Bilateral Ultrasound 08/13/2024 12:0 9 PM SECURITY INVESTIGATOR Impressions 08/13/2024 12:09 PM SECURITY INVESTIGATOR 1. No evidence of DVT in the lower extremities bilaterally. 2. Pulsatile venous flow bilaterally. This may suggest increased intravascular volume or right-sided valvular heart disease. Clinical correlation suggested. 3. Prominent lymph nodes in both groins. Electronically signed by: Lv Smart M.D. Narrative 08/13/2024 12:09 PM SECURITY INVESTIGATOR Lower Extremity Vein Duplex Bilateral DATE: 08/12/2024 [...] ult * US RUQ (08/12/2024 11:38 PM SECURITY INVESTIGATOR) Anatomical Region Laterality Modality Abdomen N/A Ultrasound 08/12/2024 10:4 5 PM SECURITY INVESTIGATOR Impressions 08/13/2024 11:42 AM SECURITY INVESTIGATOR 1. Trace perihepatic ascites. 2. Pulsatile portal venous flow and dilated inferior vena cava, which may represent elevated right heart pressures and/or tricuspid regurgitation. For the purposes of production quality analyst, this study was initially interpreted by teleradiology. There is no significant discrepancy. Electronically signed by: Saeid Baker MD, PHD Narrative 08/13/2024 11:42 AM SECURITY INVESTIGATOR EXAMINATION: LIMITED ABDOMINAL SONOGRAM HISTORY: Elevated liver [...] Add on lab test (08/12/2024 10:29 PM SECURITY INVESTIGATOR) Acceptable Yes Blood 08/12/2024 10:2 9 PM SECURITY INVESTIGATOR 08/12/2024 10:29 PM SECURITY INVESTIGATOR Narrative [facility] - 08/12/2024 10:29 PM SECURITY INVESTIGATOR Name of Test->D-Dimer us Batsheva Portillo MD LAB BLOOD ORDERABLES Final Result [facility] [address] Department [place] [address] * CT Head and Cervical Spine WO Contrast (08/12/2024 10:20 PM SECURITY INVESTIGATOR) Anatomical Region Laterality Modality Head and Neck N/A Computed Tomogra phy 08/12/2024 10:1 3 PM SECURITY INVESTIGATOR Impressions 08/13/2024 7:[address] HEAD: No acute intracranial abnormality or calvarial fracture. CT CERVICAL SPINE: 1. No acute osseous abnormality. 2. Multilevel cervical spondylosis; most pronounced at C5-C6 and C6-C7. For the purposes of production quality analyst, this study was initially interpreted by teleradiology. There is no significant discrepancy. Electronically signed by: Zaheer Navas M.D. Narrative 08/13/2024 7:02 AM SECURITY INVESTIGATOR EXAMINATION: 1. CT head without contrast 2. [...] Res ult * Protime-INR (08/12/2024 10:05 PM SECURITY INVESTIGATOR) PT 12.8 9.7 - 13.0 sec INR 1.18 0.90 - 1.[address] Comment: Interpretive data Oral anticoagulant therapeutic ranges: Venous thromboembolism prophylaxis or treatment: 2.0-3.0 CARDIOLOGY Standard range: 2.0-3.0 High-intensity range: 2.5-3.5 Refer to indication-specific guidelines for appropriate target ranges for prosthetic heart valve replacement. Current interpretive data was last revised on 2019. Blood 08/12/2024 10:0 5 PM SECURITY INVESTIGATOR 08/12/2024 10:29 PM SECURITY INVESTIGATOR us Batsheva Portillo MD LAB BLOOD ORDERABLES Final Result [facility] [address] Department [place] [address] * (ABNORMAL) D-dimer, quantitative (08/12/2024 10:05 PM SECURITY INVESTIGATOR) D-Dimer 1,783(H) <=499 ng/mL FEU Comment: Interpretive [...] on 2019. Blood 08/12/2024 10:0 5 PM SECURITY INVESTIGATOR 08/12/2024 10:05 PM SECURITY INVESTIGATOR Batsheva Portillo MD LAB BLOOD ORDERABLES Final Result Performing Organization Address [facility] Co de Phone Number [facility] [address] [facility] [place] [address] * Folate - Add on lab test (08/12/2024 9:53 PM SECURITY INVESTIGATOR) Acceptable Yes Blood 08/12/2024 9:53 PM SECURITY INVESTIGATOR 08/12/2024 9:53 PM SECURITY INVESTIGATOR Narrative [facility] - 08/12/2024 9:54 PM SECURITY INVESTIGATOR Name of Test->Folate us Batsheva Portillo MD LAB BLOOD ORDERABLES Final Result Performing Organization Address [facility] Co de Phone Number [facility] [address] [facility] [place] [address] * Vitamin B12 - Add on lab test (08/12/2024 9:53 PM SECURITY INVESTIGATOR) Acceptable Yes Blood 08/12/2024 9:53 PM SECURITY INVESTIGATOR 08/12/2024 9:54 PM SECURITY INVESTIGATOR Narrative [facility] - 08/12/2024 9:54 PM SECURITY INVESTIGATOR Name of Test->Vitamin B12 us Batsheva Portlilo MD LAB BLOOD ORDERABLES Final Result Performing Organization Address [facility] Co de Phone Number [facility] [address] [facility] [place] [address] * Iron profile - Add on lab test (08/12/2024 9:53 PM SECURITY INVESTIGATOR) Acceptable Yes Blood 08/12/2024 9:53 PM SECURITY INVESTIGATOR 08/12/2024 9:54 PM SECURITY INVESTIGATOR Narrative [facility] - 08/12/2024 9:54 PM SECURITY INVESTIGATOR Name of Test->Iron profile Batsheva Portillo MD LAB BLOOD ORDERABLES Final Result Performing Organization Address [facility] Co de Phone Number [facility] [address] [facility] [place] [address] * NT-Pro BNP - Add on lab test (08/12/2024 9:53 PM SECURITY INVESTIGATOR) Acceptable Yes Blood 08/12/2024 9:53 PM SECURITY INVESTIGATOR 08/12/2024 9:53 PM SECURITY INVESTIGATOR Narrative [facility] - 08/12/2024 9:54 PM SECURITY INVESTIGATOR Name of Test->NT-Pro BNP us Batsheva Portillo MD LAB BLOOD ORDERABLES Final Result Performing Organization Address [facility] Co de Phone Number [facility] [address] Department [place] [address] * TSH reflex Free T4 - Add on lab test (08/12/2024 9:53 PM SECURITY INVESTIGATOR) Acceptable Yes Blood 08/12/2024 9:53 PM SECURITY INVESTIGATOR 08/12/2024 9:53 PM SECURITY INVESTIGATOR Narrative [facility] - 08/12/2024 9:54 PM SECURITY INVESTIGATOR Name of Test->TSH reflex Free T4 us Batsheva Portillo MD LAB BLOOD ORDERABLES Final Result Performing Organization Address [facility] Co de Phone Number [facility] [address] [facility] [place] [address] * Phosphorus - Add on lab test (08/12/2024 9:53 PM SECURITY INVESTIGATOR) Acceptable Yes Blood 08/12/2024 9:53 PM SECURITY INVESTIGATOR 08/12/2024 9:53 PM SECURITY INVESTIGATOR Narrative [facility] 08/12/2024 9:55 PM SECURITY INVESTIGATOR Name of Test->Phosphorus us Batsheva Portillo MD LAB BLOOD ORDERABLES Final Result Performing Organization Address [facility]/ZIP Co de Phone Number [facility] [address] Department [place] [place] [address] * Magnesium - Add on lab test (08/12/2024 9:53 PM SECURITY INVESTIGATOR) Pathologist [facility] Acceptable Yes Blood 08/12/2024 9:53 PM SECURITY INVESTIGATOR 08/12/2024 9:53 PM SECURITY INVESTIGATOR Narrative [facility] - 08/12/2024 9:55 PM SECURITY INVESTIGATOR Name of Test->Magnesium Batsheva Portillo MD LAB BLOOD ORDERABLES Final Result Performing Organization Address [facility] Co de Phone Number [facility] [address] Department [place] [address] * Troponin T high-sensitivity 2-hour (08/12/2024 9:52 PM SECURITY INVESTIGATOR) [facility] Trop T hs 6 <=22 ng/L Comment: Interpretive Data For further hscTnT resources including the diagnostic algorithm and an aid in interpretation, copy and paste this link: https://nrl.testcatalog.org/show/hsTrop Current Interpretive Data last revised 2020. Trop T hs delta -1 ng/L [facility] Trop T hs interp Insignificant [facility] Blood 08/12/2024 9:52 PM SECURITY INVESTIGATOR 08/12/2024 10:30 PM SECURITY INVESTIGATOR Ace Gonzales MD LAB BLOOD ORDERABLES F inal Result [facility] [address] Department [place] [place] [address] * Ethanol (08/12/2024 9:52 PM SECURITY INVESTIGATOR) [facility] Ethanol <10 <=10 mg/dL Comment: Interpretive Data Legal limit of intoxication > or = 80 mg/dL Levels > or = 400 mg/dL are potentially TOXIC. Current interpretive data was last revised on 2018. Blood 08/12/2024 9:52 PM SECURITY INVESTIGATOR 08/12/2024 10:29 PM SECURITY INVESTIGATOR us Batsheva Portillo MD LAB BLOOD ORDERABLES Final Result Performing Organization Address [facility] Co de Phone Number [facility] [address] Department [place] [address] * Hepatitis panel, acute Blood (08/12/2024 9:13 PM SECURITY INVESTIGATOR) Pathologist [facility] Hep A IgM Nonreactive Nonreactive Comment: Interpretive Data: If Hep A IgM Ab is reported as Equivocal, a new sample should be drawn in two weeks for testing. Current interpretive data was last revised on 19. Hep B core IgM Nonreactive Nonreactive [facility] Comment: Interpretive Data If HepB Core IgM Ab is reported as Equivocal, a new sample should be drawn in two weeks for testing. Current interpretive data was last revised on 19. Hep C Ab Nonreactive Nonreactive [facility] Comment: Interpretive Data Nonreactive: Antibodies [...] last revised on 2019. HepBsAg Nonreactive Nonreactive [facility] Blood 08/12/2024 9:13 PM SECURITY INVESTIGATOR 08/12/2024 9:17 PM SECURITY INVESTIGATOR us Batsheva Portillo MD LAB MICROBIOLOGY - GENERAL ORDERABLES Final Result Performing Organization Address City/[facility]/ZIP Co de Phone Number [facility] [address] Department [place] [address] * Acetaminophen level (08/12/2024 9:13 PM SECURITY INVESTIGATOR) Pathologist [facility] Acetaminophen <5 <=5 mcg/mL Comment: Interpretive Data Significant hepatic injury may occur and treatment with n-acetyl cysteine is generally recommended if the acetaminophen level exceeds: 150 mcg/mL at 4 hours after ingestion 75 mcg/mL at 8 hours after ingestion 38 mcg/mL at 12 hours after ingestion 19 mcg/mL at 16 hours after ingestion Consult toxicology or poison control ([phone]) for unknown ingestion time. Current interpretive data was last revised 2023. Blood 08/12/2024 9:13 PM SECURITY INVESTIGATOR 08/12/2024 9:17 PM SECURITY INVESTIGATOR us Batsheva Portillo MD LAB BLOOD ORDERABLES Final Result Performing Organization Address [facility] de Phone Number [facility] [address] Department [place] [address] * Troponin T high-sensitivity series (baseline, 2hr, 4hr, 6hr) (08/12/2024 8:08 PM SECURITY INVESTIGATOR) Trop T hs 7 <=22 ng/L Comment: Interpretive Data For further hscTnT resources including the diagnostic algorithm and an aid in interpretation, copy and paste this link: https://nrl.testcatalog.org/show/hsTrop Current Interpretive Data last revised 2020. Blood 08/12/2024 8:08 PM SECURITY INVESTIGATOR 08/12/2024 8:23 PM SECURITY INVESTIGATOR us Batsheva Portillo MD LAB BLOOD ORDERABLES Final Result Performing Organization Address [facility] Co de Phone Number [facility] [address] Department [employer] [place] [address] * eGFR (08/12/2024 8:08 PM SECURITY INVESTIGATOR) eGFR >90 >=60 mL/min/1. 73 m2 Comment: [...] last reviewed 2021. Blood 08/12/2024 8:08 PM SECURITY INVESTIGATOR 08/12/2024 8:23 PM SECURITY INVESTIGATOR us Batsheva Portillo MD LAB BLOOD ORDERABLES Final Result [facility] [address] Department [place] [address] * Differential, auto (08/12/2024 8:08 PM SECURITY INVESTIGATOR) Neutrophil abs 3.5 1.5 - 6.5 K/cumm Imm gran abs 0.0 0.0 - 0.1 K/cumm [facility] Lymphocyte abs 2.2 0.8 - 3.3 K/cumm [facility] Monocyte abs 0.5 0.2 - 0.8 K/cumm [facility] Eosinophil abs 0.3 0.0 - 0.5 K/cumm [facility] Basophil abs 0.1 0.0 - 0.1 K/cumm [facility] Neutrophil pct 54.5 % [facility] Comment: Interpretive Data Percent cell count reference ranges are not reported, since discordance with absolute values may lead to misinterpretation of CBC data. Current Interpretive Data was last revised on 2017. Imm gran pct 0.3 % [facility] Comment: Interpretive Data Percent cell count reference ranges are not reported, since discordance with absolute values may lead to misinterpretation of CBC data. Current Interpretive Data was last revised on 2017. Lymphocyte pct 33.3 % [facility] Comment: Interpretive Data Percent cell count reference ranges are not reported, since discordance with absolute values may lead to misinterpretation of CBC data. Current Interpretive Data was last revised on 2017. Monocyte pct 6.9 % [facility] Comment: Interpretive Data Percent cell count reference ranges are not reported, since discordance with absolute values may lead to misinterpretation of CBC data. Current Interpretive Data was last revised on 2017. Eosinophil pct 4.1 % [facility] Comment: Interpretive Data Percent cell count reference ranges are not reported, since discordance with absolute values may lead to misinterpretation of CBC data. Current Interpretive Data was last revised on 2017. Basophil pct 0.9 % [facility] Comment: Interpretive Data Percent cell count reference ranges are not reported, since discordance with absolute values may lead to misinterpretation of CBC data. Current Interpretive Data was last revised on 2017. Blood 08/12/2024 8:08 PM SECURITY INVESTIGATOR 08/12/2024 8:23 PM SECURITY INVESTIGATOR us Batsheva Portillo MD LAB BLOOD ORDERABLES Final Result [facility] [address] Department [place] [address] * Pro B-type natriuretic peptide (08/12/2024 8:08 PM SECURITY INVESTIGATOR) NT-proBNP 60 <=300 pg/mL Comment: Interpretive Comments: [...] Revised Date: 2018. Blood 08/12/2024 8:08 PM SECURITY INVESTIGATOR 08/12/2024 8:23 PM SECURITY INVESTIGATOR us Batsheva Portillo MD LAB BLOOD ORDERABLES Final Result Performing Organization Address City/[facility]/ZIP Co de Phone Number [facility] [address] [employer] [place] [address] * Thyroid Function [place] (08/12/2024 8:08 PM SECURITY INVESTIGATOR) TSH 1.43 0.30 - 4.20 mcIUnit/mL Blood 08/12/2024 8:08 PM SECURITY INVESTIGATOR 08/12/2024 8:23 PM SECURITY INVESTIGATOR us Batsheva Portillo MD LAB BLOOD ORDERABLES Final Result Performing Organization Address City/[facility]/ZIP Co de Phone Number [facility] [address] [facility] [place] [address] * (ABNORMAL) Iron profile w/ IBC (08/12/2024 8:08 PM SECURITY INVESTIGATOR) Iron 46(L) 50 - 150 mcg/dL TIBC 296 250 - 400 mcg/dL [facility] Transferrin saturation 16(L) 20 - 50 % [facility] Blood 08/12/2024 8:08 PM SECURITY INVESTIGATOR 08/12/2024 8:23 PM SECURITY INVESTIGATOR us Batsheva Portillo MD LAB BLOOD ORDERABLES Final Result Performing Organization Address City/[facility]/ZIP Co de Phone Number [facility] [address] Department [place] [address] * (ABNORMAL) CBC with auto differential (08/12/2024 8:08 PM SECURITY INVESTIGATOR) [facility] WBC 6.5 3.8 - 9.9 K/cumm Hgb 12.5(L) 13.0 - 17.5 g/dL [facility] Hct 38.3(L) 38.9 - 50.3 % [facility] Plt 207 150 - 400 K/cumm [facility] MPV 10.1 9.1 - 12.3 fL [facility] RBC 4.22(L) 4.30 - 5.80 M/cumm [facility] MCV 90.8 81.3 - 96.4 fL [facility] MCH 29.6 27.1 - 33.3 pg [facility] MCHC 32.6 32.3 - 35.7 g/dL [facility] RDW CV 13.0 11.1 - 14.9 % [facility] RDW SD 43.2 35.7 - 48.1 fL [facility] NRBC abs 0.00 0.00 - 0.01 K/cumm [facility] Blood (Blood, Venous) 08/12/2024 8:08 PM SECURITY INVESTIGATOR 08/12/2024 8:23 PM SECURITY INVESTIGATOR us Batsheva Portillo MD LAB BLOOD ORDERABLES Final Result [facility] [address] Department [place] [address] * Phosphorus (08/12/2024 8:08 PM SECURITY INVESTIGATOR) Pathologist [facility] Phosphorus, pl 3.1 2.3 - 4.5 mg/dL Blood 08/12/2024 8:08 PM SECURITY INVESTIGATOR 08/12/2024 8:23 PM SECURITY INVESTIGATOR us Batsheva Portillo MD LAB BLOOD ORDERABLES Final Result [facility] [address] [facility] [place] [address] * Magnesium (08/12/2024 8:08 PM SECURITY INVESTIGATOR) Pathologist [facility] Magnesium 2.0 1.4 - 2.5 mg/dL Blood 08/12/2024 8:08 PM SECURITY INVESTIGATOR 08/12/2024 8:23 PM SECURITY INVESTIGATOR us Batsheva Portillo MD LAB BLOOD ORDERABLES Final Result Performing Organization Address [facility] Co de Phone Number [facility] [address] [facility] [place] [address] * Folate (08/12/2024 8:08 PM SECURITY INVESTIGATOR) Pathologist [facility] Folic acid 7.6 >=5.0 ng/mL Blood 08/12/2024 8:08 PM SECURITY INVESTIGATOR 08/12/2024 8:23 PM SECURITY INVESTIGATOR us Batsheva Portillo MD LAB BLOOD ORDERABLES Final Result Performing Organization Address [facility]/ZIP Co de Phone Number [facility] [address] [facility] [place] [address] * Vitamin B12 (08/12/2024 8:08 PM SECURITY INVESTIGATOR) Pathologist [facility] Vitamin B12 860 230 - 1,250 pg/mL Blood 08/12/2024 8:08 PM SECURITY INVESTIGATOR 08/12/2024 8:23 PM SECURITY INVESTIGATOR us Batsheva Portillo MD LAB BLOOD ORDERABLES Final Result [facility] [address] [facility] [place] [address] * (ABNORMAL) Comprehensive metabolic panel (08/12/2024 8:08 PM SECURITY INVESTIGATOR) Sodium 142 135 - 145 mmol/L Potassium, pl 4.4 3.3 - 4.9 mmol/L [facility] Chloride 106 97 - 110 mmol/L [facility] CO2 27 22 - 32 mmol/L [facility] Anion gap 9 2 - 15 mmol/L [facility] BUN 29(H) 6 - 25 mg/dL [facility] Creatinine 1.02 0.80 - 1.30 mg/dL [facility] Glucose 104 70 - 199 mg/dL [facility] Comment: Interpretive Data Fasting glucose [...] 2022. Calcium 8.6 8.5 - 10.3 mg/dL [facility] Bilirubin, total 0.3 0.1 - 1.2 mg/dL [facility] Protein, pl 6.1(L) 6.5 - 8.5 g/dL [facility] Albumin 3.7 3.5 - 5.0 g/dL [facility] Alk phos 83 40 - 130 Units/L [facility] ALT 230(H) 7 - 55 Units/L [facility] AST 158(H) 10 - 50 Units/L [facility] Blood 08/12/2024 8:08 PM SECURITY INVESTIGATOR 08/12/2024 8:23 PM SECURITY INVESTIGATOR us Batsheva Portillo MD LAB BLOOD ORDERABLES Final Result [facility] [address] Department [place] [address] * XR Chest PA Lateral 2 Views (08/12/2024 7:27 PM SECURITY INVESTIGATOR) Anatomical Region Laterality Modality Body, Chest N/A Computed Radiogr aphy 08/13/2024 7:44 AM SECURITY INVESTIGATOR Impressions 08/13/2024 7:44 AM SECURITY INVESTIGATOR There is subtle airspace opacity in the right lung base which may represent pneumonia in the appropriate clinical setting. Alternatively, this may represent atelectasis. No pleural effusion. No pneumothorax. Heart size is normal. Electronically signed by: Tari Gavin M.D. Narrative 08/13/2024 7:44 AM SECURITY INVESTIGATOR EXAMINATION: XR CHEST PA LATERAL 2 VIEWS [...] * ECG 12 lead (08/12/2024 6:48 PM SECURITY INVESTIGATOR) 08/12/2024 6:48 PM SECURITY INVESTIGATOR Narrative [facility] - 08/13/2024 1:41 PM SECURITY INVESTIGATOR Vent Rate: 63 bpm RR Interval: 938 msec [place] Interval: 165 msec QRS Duration: 96 msec QT Interval: 378 msec QTC Interval: 386 msec P-R-T [place]: 74 - 81 - 50 degrees IMPRESSION: SINUS RHYTHM POSSIBLE LEFT ATRIAL ENLARGEMENT [-0.1mV P WAVE IN V1/V2] BORDERLINE ECG Electronically Signed By: Jerel Ramirez MD PhD us Batsheva Portillo MD ECG ORDERABLES Final Resul t [facility] * XR Chest Pa Lateral 2 Views (08/11/2024 2:02 AM SECURITY INVESTIGATOR) Anatomical Region Laterality Modality Body, Chest N/A Computed Radiogr aphy 08/11/2024 3:00 AM SECURITY INVESTIGATOR Impressions 08/11/2024 9:05 AM SECURITY INVESTIGATOR Comparison radiograph from 08/08/2024. No consolidation, pleural effusion, or pneumothorax. Cardiomediastinal silhouette within normal limits. Dictated by: Julio Rooney M.D. The radiology attending physician has personally reviewed this study, and had reviewed and/or edited this written report and agrees with it. Electronically signed by: Brice Mantilla M.D. Narrative 08/11/2024 9:05 AM SECURITY INVESTIGATOR EXAMINATION: 2 view chest radiograph Procedure Note [...] sult * ECG 12-LEAD (08/11/2024 1:43 AM SECURITY INVESTIGATOR) Narrative [facility] - 08/11/2024 1:43 AM SECURITY INVESTIGATOR Johnnie Kelly MD 08/11/2024 1:44 AM ECG [...] PA Lateral 2 Views (08/08/2024 10:42 PM SECURITY INVESTIGATOR) Anatomical Region Laterality Modality Body, Chest N/A Computed Radiogr aphy 08/08/2024 11:0 3 PM SECURITY INVESTIGATOR Impressions 08/09/2024 10:05 AM SECURITY INVESTIGATOR The current study is compared with the prior radiograph dated 09/13/2019. Mild bibasilar atelectasis. No consolidation, pleural effusion, or pneumothorax. Cardiomediastinal silhouette within normal limits. Dictated by: Chet Boogie MD The radiology attending physician has personally reviewed this study, and had reviewed and/or edited this written report and agrees with it. Electronically signed by: Steve Arce M.D. Narrative 08/09/2024 10:05 AM SECURITY INVESTIGATOR EXAMINATION: 2 view chest radiograph Procedure Note [...] CT Head WO Contrast (08/08/2024 10:34 PM SECURITY INVESTIGATOR) Anatomical Region Laterality Modality Head and Neck N/A Computed Tomogra phy 08/08/2024 10:4 4 PM SECURITY INVESTIGATOR Impressions 08/09/2024 10:54 AM SECURITY INVESTIGATOR 1. No acute intracranial process. 2. Large burden of cerumen in both external auditory canals which may be impacted. Dictated by: Juancho Marquez MD, Ph.D The radiology attending physician has personally reviewed this study, and had reviewed and/or edited this written report and agrees with it. Electronically signed by: Indio Zambrano M.D. Narrative 08/09/2024 10:54 AM SECURITY INVESTIGATOR EXAMINATION: CT head without contrast HISTORY: 43-year-old [...] ult * ECG 12-LEAD (08/08/2024 8:56 PM SECURITY INVESTIGATOR) Narrative [facility] - 08/08/2024 8:56 PM SECURITY INVESTIGATOR Salena Cobb MD 08/08/2024 8:57 PM ECG [...] Gatica MD ECG ORDERABLES Final Resul t [facility] * (ABNORMAL) Respiratory pathogen panel Nasopharyngeal (08/06/2024 9:59 AM SECURITY INVESTIGATOR) [facility] Influenza A RNA Not Detected Not Detected Influenza B RNA Not Detected Not Detected [facility] RSV RNA Not Detected Not Detected [facility] COVID-19 RNA Not Detected Not Detected [facility] Coronavirus 229E RNA Not Detected Not Detected [facility] Coronavirus HKU1 RNA Not Detected Not Detected [facility] Coronavirus NL63 RNA Detected(A) Not Detected [facility] Coronavirus OC43 RNA Not Detected Not Detected [facility] Adenovirus DNA Not Detected Not Detected [facility] Metapneumovirus RNA Not Detected Not Detected [facility] Rhinovirus/Enterov irus RNA Not Detected Not Detected [facility] Parainfluenza 1 RNA Not Detected Not Detected [facility] Parainfluenza 2 RNA Not Detected Not Detected [facility] Parainfluenza 3 RNA Not Detected Not Detected [facility] Parainfluenza 4 RNA Not Detected Not Detected [facility] B. pertussis DNA Not Detected Not Detected [facility] B. parapertussis DNA Not Detected Not Detected [facility] C. pneumoniae DNA Not Detected Not Detected [facility] M. pneumoniae DNA Not Detected Not Detected [facility] Nasopharyngeal 08/06/2024 9: 59 AM SECURITY INVESTIGATOR 08/06/2024 10:52 AM SECURITY INVESTIGATOR Narrative [facility] - 08/06/2024 11:43 AM SECURITY INVESTIGATOR Is the Patient experiencing symptoms consistent with COVID?->Yes Surveillance testing for transplant patient?->No Interpretive Data The [employer] FilmArray Respiratory Panel (RP2.1) assay is [...] assay has FDA clearance for testing of PROCESS CONTROLLER swabs. The performance of additional specimen types has been assessed by the performing laboratory. The performance characteristics of this assay have been determined by [facility] Molecular Infectious Disease Laboratory. Current interpretive data was last revised on 22. [facility] - GENERAL [place]DE [place] Final Result [facility] Department [place] [address] from Last 3 Months Insurance [employer] [place] [address] [facility] [place] [address] [facility] [employer] [facility] Advance Directives For more information, please contact: [phone] * Full Code (Latest Code Status on File) Date Activated Date Inactivated Comments 08/13/2024 3:12 AM 08/14/2024 6:01 PM * Full Code Date Activated Date Inactivated Comments 10/28/2022 5:15 PM 10/29/2022 2:07 PM * Full Code Date Activated Date Inactivated Comments 08/09/2019 5:28 PM 08/10/2019 5:09 PM * Full Code Date Activated Date Inactivated Comments 07/29/2019 4:26 PM 08/04/2019 10:36 PM Care Teams Artist'S Manager Relationship Specialty [place] [address] [place] [address] PCP - General Family Medicine 05/18/24 [place] [address] [address] Referring Physician General Surgery 08/04/19 [place] [address] [address] Consulting Physician Gastroenterology 08/04/19
--- OUTSIDE RECORDS SUMMARY | 2024-09-25 03:39 | XMS_ITS | Clinical Summary ---
Author Organization [facility] Address [address] [place] [address] Care Team Providers Care Travel Journalist Name Role Phone Unavailable Primary Care Provider [...] patient's age to complete this topic Insurance [employer]
--- OUTSIDE RECORDS SUMMARY | 2024-09-25 03:39 | XMS_ITS | Encounter Summary ---
Author Organization [facility] Address [address] [place] [address] Care Team Providers Care Marine Electrician Apprentice Name Role Phone Elias Andrews MD Unavailable [phone] Jonah Otto MD Unavailable [phone] Jerel Camejo MD Primary Care Provider [phone] Reason for Visit * Reason Comments Leg Pain Encounter Details Date Type Department Care Team (Late st Contact Info) Description 09/24/2024 1:31 PM TRACTOR MECHANIC HELPER - 09/24/2024 2:22 PM TRACTOR MECHANIC HELPER Emergency [facility] [address] [place] [id number] Pain and swelling of lower extremity, left (Primary Dx) Discharge Disposition: Discharge to home or self care Social History Tobacco Use Types Packs/Day Years Used Date Smoking Tobacco: Never Smokeless Tobacco: Never Alcohol Use Standard Drinks/Week Comments Not Currently 0 (1 standard drink = 0.6 oz pur e alcohol) [facility] Utilities Answer Date Recorded In the past 12 months has th [employer], gas, oil, or water company threatened [...] declined 08/14/2024 How often do you attend latter day or sikhism serv ices? Patient declined 08/14/2024 Do you belong to any clubs o r organizations such as latter day groups, unions, fraternal or athletic groups, or [...] any time in the past 12 m [facility], were you homeless or living [...] on file Legal Sex Male 9:25 PM TRACTOR MECHANIC HELPER Gender Identity Not on file Sexual Orientation Straight 11/18/2022 7: 07 PM CDT documented as of this encounter Last Filed Vital Signs Vital Sign Reading Time Taken Comments Blood Pressure 123/75 09/24/2024 12:17 PM TRACTOR MECHANIC HELPER Pulse 85 09/24/2024 12:17 PM TRACTOR MECHANIC HELPER Temperature 36.7 C (98 F) 09/24/2024 12:17 PM TRACTOR MECHANIC HELPER Respiratory Rate 16 09/24/2024 12:17 PM TRACTOR MECHANIC HELPER Oxygen Saturation 100% 09/24/2024 12:17 PM TRACTOR MECHANIC HELPER Inhaled Oxygen Concentration - - Weight 74.8 kg (165 lb) 09/24/2024 12:17 PM TRACTOR MECHANIC HELPER Height 172.7 cm (5' 8 ) 09/24/2024 12:17 PM TRACTOR MECHANIC HELPER Body Mass Index 25.09 09/24/2024 12:17 PM TRACTOR MECHANIC HELPER documented in this encounter Discharge Instructions * Discharge Instructions* Nelsy Gaspar PA - 09/24/2024 2:10 PM TRACTOR MECHANIC HELPER Use compression stockings in place of rosendo bandage if rosendo bandage is causing pain. Elevate the extremity to assist with swelling. NSAIDs will be best for pain and swelling, but you can use Tylenol as needed. Keep the area clean. Return to the ER if new or concerning symptoms arise. TOR MECHANIC HELPER * Attachments The following attachments cannot be sent through Care Everywhere. * Leg Swelling in a Single Leg (Finnish) documented in this encounter Medications at Time [...] tablet 09/02/2024 documented as of this encounter Discharge Disposition Disposition Code Departure Means Destination Comment s Discharge to home or self care documented in this encounter ED Notes * Nelsy Gaspar PA - 09/24/2024 2:09 PM CST Images from the original note were not included. ED Provider Note HPI: Sameul Mccoy is a 44 y.o. male presenting to the ED complaining of left lower extremity pain, increasing over the past 3 days. Patient has had over 20 ED/urgent care visits in the past 2-3 weeks for similar complaints. He was hospitalized several weeks ago at [place] for cellulitis of the left lower extremity. He has been using Rosendo bandages to assist with lower extremity swelling, but he believes that this is resulting in pain. He does have some slightly increased erythema of the left lower leg. 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 He does not take NSAIDs at home ???because of the side effects. ?? Denies fevers, chills, numbness, tingling, chest pain, difficulty breathing. He was requesting another method of compression other than Rosendo bandages, as he believes that this is the source of his pain. Jerel Camejo MD is primary care provider. PMH: Past Medical History: Diagnosis Date Chronic bilateral low back pain Post concussion syndrome PMHx, SOCIAL / FAMILY HISTORY: I have read and agree with the pertinent medical/surgical history, psychiatric history, social history, and family history as documented by nursing. REVIEW OF SYSTEMS: Review of Systems All other systems reviewed and are negative. HOME MEDICATIONS: (See MAR) VITALS: Patient Vital Signs for the past 24 hrs: BP Temp Pulse Resp SpO2 Height Weight 09/24/24 1217 123/75 36.7 ??C (98 ??F) 85 16 100 % 172.7 cm (5' 8 ) 74.8 kg (165 lb) PHYSICAL EXAM: Vital signs reviewed. Physical Exam Vitals and nursing note reviewed. Constitutional: General: He is not in acute distress. Appearance: Normal appearance. He is not ill-appearing. HENT: Head: Normocephalic and atraumatic. Nose: Nose normal. Mouth/Throat: Mouth: Mucous membranes are moist. Pharynx: Oropharynx is clear. Cardiovascular: Rate and Rhythm: Normal rate and regular rhythm. Heart sounds: Normal heart sounds. Pulmonary: Effort: No respiratory distress. Breath sounds: Normal breath sounds. No rhonchi. Musculoskeletal: General: Normal range of motion. Cervical back: Normal range of motion and neck supple. Left lower leg: Edema present. Comments: Left lower extremity edema, diffuse erythema around the ankle. Erythema appears to be vascular in nature, does not appear cellulitic. Normal temperature to palpation. DP pulses palpated. Skin: General: Skin is warm and dry. Capillary Refill: Capillary refill takes less than 2 seconds. Neurological: General: No focal deficit present. Mental Status: He is alert and oriented to person, place, and time. Mental status is at baseline. Psychiatric: Mood and Affect: Mood normal. Behavior: Behavior normal. Labs Reviewed - No data to display No orders to display Procedures MDM Number of Diagnoses or Management Options Pain and swelling of lower extremity, left Diagnosis management comments: Patient presents for chronic left lower extremity edema. Requesting something else to assist with the swelling. It does appear swollen and erythematous. Does not appearcellulitic. He has had several ED visits for similar complaints. Last ultrasound approximately 1 month ago which was negative for DVT. 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 He was declining the ultrasound. AMA form signed todecline this. He was safe for discharge with instructions to use compression stockings, NSAIDs, lidocaine patches for pain. Emphasized on the importance of elevating the extremity. Emphasized importance of follow up with primary care. Discharged in stable condition Impression: 1. Pain and swelling of lower extremity, left Signed by JERALD Vera, 09/24/24 8:10 PM. Medications given/initiated during ED stay: Medications - No data to display New Rx for this encounter: No orders of the defined types were placed in this encounter. Nelsy Gaspar PA 09/24/242009 TOR MECHANIC HELPER * Ijeoma Bishop RN - 09/24/2024 12:16 PM CST Pt sates he has been wearing his compression stockings and his LLE hurts TOR MECHANIC HELPER documented in this encounter Plan of Treatment Not on file documented as of this encounter Visit Diagnoses Diagnosis Pain and swelling of lower extremity, left- Primary documented in this encounter Care Teams Marine Electrician Apprentice Relationship Specialty Start [place] [address] [place] [address] PCP - General Family Medicine 05/18/24 [place] [address] [address] [address] Referring Physician General Surgery 08/04/19 [place] [address] [address] Consulting Physician Gastroenterology 08/04/19 documented as of this encounter
--- OUTSIDE RECORDS SUMMARY | 2024-09-25 03:40 | XMS_ITS | Clinical Summary ---
Author Organization [address] Address [address] [place] [phone] Care Team Providers Care Extension Division Director Name Role Phone Elias Andrews MD Unavailable [phone] Jonah Otto MD Unavailable [phone] Jerel Camejo MD Primary Care Provider [phone] Allergies Active Allergy Reactions Criticality Noted Date [...] Insurance Qualify for In Clinic PT? 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 Assessment & Plan (08/09/2019 7:07 PM HORSE RACER): Patient presents with complaints of ongoing abdominal [...] 07/29/2019 Assessment & Plan (08/10/2019 10:48 AM HORSE RACER): Ongoing nausea post cholecystectomy w/o vomiting. Tolerating PO, no emesis overnight - prn zofran - ADAT Assessment & Plan (08/09/2019 7:17 PM HORSE RACER): Ongoing nausea post cholecystectomy w/o vomiting. - prn zofran - ADAT Calculus of gallbladder 07/29/2019 Dizziness 07/29/2019 Assessment & Plan (08/10/2019 10:59 AM HORSE RACER): Patient describes dizziness related to uncontrolled abdominal pain. He endorses pain starts in RQ and moves to head . He then becomes diaphoretic, nauseous. Improved this AM. Likely vasovagal, hemodynamically stable. - discussed proper hydration and symptom management Assessment & Plan (08/09/2019 7:16 PM HORSE RACER): Patient describes dizziness related to uncontrolled abdominal pain. He endorses pain starts in RQ and moves to head . He then becomes diaphoretic, nauseous. - likely vasovagal, s/p 1 L LR in ED. CTM Intractable right upper quadrant abdominal pain 07/29/2019 Overview (08/01/2019): Added automatically from request for surgery [id number] Adjustment disorder with depressed mood in remis devonte 11/05/2018 Sepsis 10/25/2018 Abdominal pain, generalized 10/25/2018 Dizziness 10/20/2018 Syncope and collapse 10/20/2018 Gallbladder adhesions Resolved Problems Problem Noted Date Diagnosed Date Resolved Date COVID-19 08/13/2024 08/14/2024 Encounters Date Type Department Care Team Description 09/24/2024 1:31 PM HORSE RACER - 09/24/2024 2:22 PM [facility] Emergency [facility] Emergency Department [address] [place] [address] Pain and swelling of lower extremity, left (Primary Dx) Discharge Disposition: Discharge to home or self care 09/24/2024 9:46 AM HORSE RACER - 09/24/2024 10:21 AM [facility] Emergency [facility] Emergency Department [address] [place] [phone] Stefanie Kemp MD Pain and swelling of left lower extremity (Primary Dx) Discharge Disposition: Discharge to home or self care 09/22/2024 6:30 PM HORSE RACER Office Visit [facility] Medical [facility] Care at [address] [phone] Charlene To NP Upper respiratory tract infection, unspecified type (Primary Dx); Nasal congestion 09/20/2024 4:07 PM HORSE RACER - 09/20/2024 4:49 PM [facility] Emergency Department [address] [place] [phone] Medication refill (Primary Dx) Discharge Disposition: Discharge to home or self care 09/20/2024 1:26 AM HORSE RACER - 09/20/2024 2:22 AM [facility] Emergency Department [address] [place] [address] Cesar Chiang MD Viral pharyngitis (Primary Dx) Discharge Disposition: Discharge to home or self care 09/19/2024 1:39 AM HORSE RACER - 09/19/2024 2:32 AM [facility] Emergency Department [address] [place] [address] Jasbir Yañez MD Pedal edema (Primary Dx) Discharge Disposition: Discharge to home or self care 09/18/2024 6:00 PM HORSE RACER - 09/18/2024 7:07 PM [facility] Emergency [facility] Emergency Department [address] [place] [address] Left before treatment completed (Primary Dx); Leg swelling Discharge Disposition: Left Against Medical Advice 09/17/2024 11:38 AM HORSE RACER - 09/17/2024 1:19 PM [facility] Emergency Department [address] [place] [address] Chronic venous insufficiency (Primary Dx); Bilateral lower extremity edema Discharge Disposition: Discharge to home or self care 09/14/2024 12:10 AM HORSE RACER - 09/14/2024 1:49 AM [facility] Emergency Department [address] [place] [address] Brice Sepulveda MD Bilateral lower extremity edema (Primary Dx) Discharge Disposition: Discharge to home or self care 09/14/2024 Telephone [facility] at [address] [phone] Lexi Garcia, DEVANG Med Refill 09/13/2024 9:20 PM HORSE RACER - 09/13/2024 9:46 PM [facility] Emergency [facility] Emergency Department [address] [place] [phone] Michael Schrader MD Weakness (Primary Dx) Discharge Disposition: Discharge to home or self care 09/13/2024 2:46 AM HORSE RACER - 09/13/2024 5:31 AM [facility] Emergency [facility] Emergency Department [address] [place] [phone] Katharine Polanoc MD Chronic venous insufficiency (Primary Dx); Lower extremity edema Discharge Disposition: Discharge to home or self care 09/12/2024 9:22 PM HORSE RACER - 09/12/2024 10:59 PM [facility] Emergency Department [address] [place] [address] Leg swelling (Primary Dx); Venous insufficiency; Venous stasis dermatitis Discharge Disposition: Discharge to home or self care 09/11/2024 10:35 PM HORSE RACER - 09/12/2024 3:44 AM [facility] Emergency [facility] Emergency Department [address] [place] [phone] Salena Crawley MD Lower extremity edema (Primary Dx); Cellulitis of left lower extremity Discharge Disposition: Discharge to home or self care 09/11/2024 7:00 PM HORSE RACER Office Visit [facility] at [address] [phone] Truman Gabriel, Symptom of leg swelling (Primary Dx) 09/10/2024 5:00 PM HORSE RACER Office Visit [facility] at [address] [phone] Jess Hobson NP Cellulitis of left lower extremity (Primary Dx); Left leg swelling 09/07/2024 10:55 AM HORSE RACER - 09/07/2024 10:56 AM [facility] Emergency [facility] Emergency Department [address] [place] [address] Venous stasis dermatitis of both lower extremities (Primary Dx) Discharge Disposition: Discharge to home or self care 09/05/2024 8:08 PM HORSE RACER - 09/05/2024 10:28 PM [facility] Emergency [facility] Emergency Department [address] [place] [phone] Other chronic pain (Primary Dx); Bilateral lower extremity edema Discharge Disposition: Discharge to home or self care 09/05/2024 2:02 AM HORSE RACER - 09/05/2024 3:14 AM [facility] Emergency [facility] Emergency Department [address] [place] [address] Marek Nelson MD PhD Chronic pain of left lower extremity (Primary Dx) Discharge Disposition: Discharge to home or self care 09/03/2024 7:07 PM HORSE RACER - 09/03/2024 11:06 PM [facility] Emergency [facility] Emergency Department [address] [place] [phone] Cellulitis of left lower extremity (Primary Dx) Discharge Disposition: Discharge to home or self care 09/02/2024 8:24 AM HORSE RACER - 09/02/2024 11:59 PM [facility] Hospital [facility] [address] [place] [address] Discharge Disposition: Discharge to home or self care 09/02/2024 3:25 AM HORSE RACER - 09/02/2024 3:41 AM [facility] Emergency Department [address] [place] [address] Rachele Guerra MD Sprain of right ankle, unspecified ligament, initial encounter (Primary Dx) Discharge Disposition: Discharge to home or self care 09/01/2024 8:06 AM HORSE RACER - 09/01/2024 9:39 AM [facility] Emergency [facility] Emergency Department [address] [place] [address] Jair Armendariz MD Sprain of right ankle, unspecified ligament, initial encounter (Primary Dx) Discharge Disposition: Discharge to home or self care 08/23/2024 9:27 PM HORSE RACER - 08/23/2024 10:03 PM [facility] Emergency [facility] Emergency Department [address] [place] [phone] Leg swelling (Primary Dx); Cellulitis of left lower extremity Discharge Disposition: Discharge to home or self care 08/23/2024 1:41 AM HORSE RACER - 08/23/2024 9:16 AM [facility] Emergency [facility] Emergency Department [address] [place] [phone] Salena Crawley MD Li, Alex, MD Schneider, John Elliott, MD Leg swelling (Primary Dx); Cellulitis of left lower extremity; Failure of outpatient treatment Discharge Disposition: Discharge to home or self care 08/20/2024 11:11 PM HORSE RACER - 08/21/2024 1:30 AM HORSE RACER Emergency [facility] Emergency Department [address] [place] [address] Dependent edema (Primary Dx) Discharge Disposition: Discharge to home or self care 08/20/2024 9:06 AM HORSE RACER - 08/20/2024 11:08 AM [facility] Emergency Department [id number] [place] [address] Fei Murray MD Upper respiratory tract infection, unspecified type (Primary Dx); Peripheral edema Discharge Disposition: Discharge to home or self care 08/20/2024 2:24 AM HORSE RACER - 08/20/2024 4:35 AM [facility] Emergency Department [address] [place] [address] Discharge Disposition: Left without being seen 08/18/2024 5:58 AM HORSE RACER - 08/18/2024 7:26 AM [facility] Emergency [facility] [place] [facility] Emergency Department [address] [place] [phone] Lorenzo Peña MD Peripheral edema (Primary Dx) Discharge Disposition: Discharge to home or self care 08/17/2024 3:00 PM HORSE RACER Diagnostic [facility] Orthopaedic Surgery [address] [facility] Advanced Medicine 6th [place] [address] [place] [address] Luciano Nelson MD Encounter for examination of normal volunteer in research study 08/15/2024 12:23 AM HORSE RACER - 08/15/2024 1:52 AM [facility] Emergency [facility] Emergency Department [address] [place] [address] [place] (Primary Dx); Swelling Discharge Disposition: Discharge to home or self care 08/12/2024 8:23 PM HORSE RACER - 08/14/2024 1:56 PM HORSE RACER Hospital Encounter [facility] [address] [place] [phone] Batsheva Portillo MD Li, Hei Jun, MD Li, Alex, MD COVID-19 (Primary Dx); Recurrent syncope; Chest pain, unspecified type; Anemia, unspecified type; Elevated AST (SGOT); Elevated ALT measurement; Nonintractable headache, unspecified chronicity pattern, unspecified headache type Discharge Disposition: Discharge to home or self care 08/11/2024 3:49 AM HORSE RACER - 08/11/2024 4:35 AM [facility] Emergency [facility] [place] [facility] Emergency Department [address] [place] [phone] Abdiel Hawkins MD Coronavirus infection (Primary Dx); Lightheadedness Discharge Disposition: Discharge to home or self care 08/08/2024 9:58 PM HORSE RACER - 08/08/2024 11:12 PM [facility] Emergency Department [address] [place] [phone] Karlo Gatica MD COVID (Primary Dx); Dehydration; Syncope, unspecified syncope type Discharge Disposition: Discharge to home or self care 08/07/2024 [facility] Eligibility Review [facility] Worker [address] [place] [address] Darlene Zurita [place] 08/06/2024 9:50 AM [facility] - 08/06/2024 12:23 PM [facility] Emergency Department [address] [place] [phone] Jassi Daniels MD Coronavirus infection (Primary Dx) Discharge Disposition: Discharge to home or self care 08/02/2024 12:46 PM [facility] - 08/02/2024 1:16 PM [facility] Emergency [facility] [place] [facility] Emergency Department [address] [place] [phone] Gee Moran MD Chronic right shoulder pain (Primary Dx) Discharge Disposition: Discharge to home or self care 08/01/2024 2:00 AM HORSE RACER - 08/01/2024 3:17 AM [facility] Emergency Department [address] [place] [phone] Chronic right shoulder pain (Primary Dx); Encounter for medication refill Discharge Disposition: Discharge to home or self care 07/29/2024 9:38 PM HORSE RACER - 07/29/2024 11:38 PM HORSE RACER Emergency [facility] [place] [facility] Emergency Department [address] [facility] [place] [address] Cindy Hendricks MD Injury of right rotator cuff, subsequent encounter (Primary Dx) Discharge Disposition: Discharge to home or self care 07/24/2024 1:00 PM HORSE RACER [facility] [address] [facility] 4th Floor [address] [place] [phone] Right anterior shoulder pain (Primary Dx) 07/24/2024 Documentation [facility] [address] [place] [address] [address] [place] [phone] Cherie Ramirez [facility] Social Work Services 07/19/2024 Documentation [facility] [address] [facility] [address] [place] [phone] Cherie Ramirez [facility] Social Work Services 06/26/2024 Orders Only [facility] Orthopaedic Surgery [address] [facility] 6th [place] [address] [place] [address] Michael Corona MD Encounter for examination of [...] drink = 0.6 oz pur e alcohol) [facility] Utilities Answer Date Recorded In the [...] often do you attend jehovah's witness or taoist serv ices? Patient declined 08/14/2024 Do you [...] any time in the past 12 m [facility], were you homeless or living in [...] on file Legal Sex Male 9:25 PM HORSE RACER Gender Identity Not on file Sexual Orientation Straight 11/18/2022 7: 07 PM CDT Obstetrics History Last Filed Vital Signs Vital Sign Reading Time Taken Comments Blood Pressure 123/75 09/24/2024 12:17 PM HORSE RACER Pulse 85 09/24/2024 12:17 PM HORSE RACER Temperature 36.7 C (98 F) 09/24/2024 12:17 PM HORSE RACER Respiratory Rate 16 09/24/2024 12:17 PM HORSE RACER Oxygen Saturation 100% 09/24/2024 12:17 PM HORSE RACER Inhaled Oxygen Concentration - - Weight 74.8 kg (165 lb) 09/24/2024 12:17 PM HORSE RACER Height 172.7 cm (5' 8 ) 09/24/2024 12:17 PM HORSE RACER Body Mass Index 25.09 09/24/2024 12:17 PM HORSE RACER Plan of Treatment Health Maintenance Due Date [...] A/B, COVID-19 ANTIGEN Routine 09/22/2024 5:30 PM HORSE RACER Nasal congestion INFLUENZA A/B, RSV, AND COVID-19 PCR STAT 09/20/2024 1:25 AM HORSE RACER PRO B-TYPE NATRIURETIC PEPTIDE Add-On 09/18/2024 1:35 PM HORSE RACER EGFR STAT 09/18/2024 1:35 PM HORSE RACER DIFFERENTIAL AUTO STAT 09/18/2024 1:3 5 PM HORSE RACER COMPREHENSIVE METABOLIC PANEL STAT 09/18/2024 1:35 PM HORSE RACER CBC WITH AUTO DIFFERENTIAL STAT 09/18/2024 1:35 PM HORSE RACER EGFR STAT 09/11/2024 9:10 PM HORSE RACER DIFFERENTIAL AUTO STAT 09/11/2024 9:1 0 PM HORSE RACER PRO B-TYPE NATRIURETIC PEPTIDE STAT 09/11/2024 9:10 PM HORSE RACER COMPREHENSIVE METABOLIC PANEL STAT 09/11/2024 9:10 PM HORSE RACER CBC WITH AUTO DIFFERENTIAL STAT 09/11/2024 9:10 PM HORSE RACER EGFR STAT 09/07/2024 2:59 AM HORSE RACER DIFFERENTIAL AUTO STAT 09/07/2024 2:5 9 AM HORSE RACER BASIC METABOLIC PANEL STAT 09/07/2024 2:59 AM HORSE RACER CBC WITH AUTO DIFFERENTIAL STAT 09/07/2024 2:59 AM HORSE RACER US VEIN DUPLEX LOWER EXTREMITY BILATERAL COMPLETE ED 09/03/2024 7:37 PM HORSE RACER MRI SHOULDER RIGHT WO CONTRAST Schedule Routine, Read Routine (OP Routine) 09/02/2024 9:06 AM HORSE RACER Right anterior shoulder pain XR ANKLE RIGHT 2 VIEWS ED 09/01/2024 9:33 PM HORSE RACER XR TIBIA FIBULA RIGHT2 VIEWS ED 09/01/2024 8:37 AM HORSE RACER XR ANKLE RIGHT 3 OR MORE VIEWS ED 08/31/2024 10:35 PM HORSE RACER XR FOOT RIGHT 3 OR MORE VIEWS ED 08/31/2024 10:34 PM HORSE RACER EGFR STAT 08/23/2024 2:33 AM HORSE RACER DIFFERENTIAL AUTO STAT 08/23/2024 2:3 3 AM HORSE RACER PRO B-TYPE NATRIURETIC PEPTIDE STAT 08/23/2024 2:33 AM HORSE RACER COMPREHENSIVE METABOLIC PANEL STAT 08/23/2024 2:33 AM HORSE RACER CBC WITH AUTO DIFFERENTIAL STAT 08/23/2024 2:33 AM HORSE RACER SEPSIS LACTATE WITH REFLEX Routine 08/23/2024 2:33 AM HORSE RACER BLOOD CULTURE Routine 08/23/2024 2:33 AM HORSE RACER BLOOD CULTURE Routine 08/23/2024 2:33 AM HORSE RACER ECG 12-LEAD STAT 08/23/2024 2:32 AM HORSE RACER EGFR STAT 08/21/2024 12:35 AM HORSE RACER DIFFERENTIAL AUTO STAT 08/21/2024 12: 35 AM HORSE RACER CRP (ACUTE PHASE) STAT 08/21/2024 12: 35 AM HORSE RACER ERYTHROCYTE SEDIMENTATION RATE STAT 08/21/2024 12:35 AM HORSE RACER BASIC METABOLIC PANEL STAT 08/21/2024 12:35 AM HORSE RACER CBC WITH AUTO DIFFERENTIAL STAT 08/21/2024 12:35 AM HORSE RACER STREPTOCOCCUS GROUP A PCR STAT 08/20/2024 9:19 AM HORSE RACER RESPIRATORY PATHOGEN PANEL Routine 08/20/2024 9:19 AM HORSE RACER D-DIMER, QUANTITATIVE STAT 08/15/2024 1:08 AM HORSE RACER PRO B-TYPE NATRIURETIC PEPTIDE STAT 08/14/2024 9:59 PM HORSE RACER EGFR STAT 08/14/2024 9:59 PM HORSE RACER DIFFERENTIAL AUTO STAT 08/14/2024 9:5 9 PM HORSE RACER LIPASE STAT 08/14/2024 9:59 PM HORSE RACER COMPREHENSIVE METABOLIC PANEL STAT 08/14/2024 9:59 PM HORSE RACER CBC WITH AUTO DIFFERENTIAL STAT 08/14/2024 9:59 PM HORSE RACER TRANSTHORACIC ECHO (TTE) COMPLETE W DOPPLER/CF WO CONTRAST Routine 08/14/2024 11:39 AM HORSE RACER HEPATIC FUNCTION PANEL Routine 08/13/2024 5:30 AM HORSE RACER EGFR Routine 08/13/2024 5:30 AM HORSE RACER CBC WITHOUT DIFFERENTIAL Routine 08/13/2024 5:30 AM HORSE RACER PHOSPHORUS Routine 08/13/2024 5:30 AM HORSE RACER MAGNESIUM Routine 08/13/2024 5:30 AM HORSE RACER BASIC METABOLIC PANEL Routine 08/13/2024 5:30 AM HORSE RACER FERRITIN Routine 08/13/2024 5:30 AM HORSE RACER DRUGS OF ABUSE SCREEN, URINE WITH REFLEX CONFIRMATION Routine 08/13/2024 12:15 AM HORSE RACER URINALYSIS AND REFLEX TO MICROSCOPIC AND CULTURE STAT 08/13/2024 12:[address] CHEST PE W CONTRAST ED 08/12/2024 11:48 PM HORSE RACER US VEIN DUPLEX LOWER EXTREMITY BILATERAL COMPLETE ED 08/12/2024 11:46 PM HORSE RACER US RUQ ED 08/12/2024 11:38 PM HORSE RACER ADD ON LAB TEST Add-On 08/12/2024 10:[address] HEAD AND CERVICAL SPINE WO CONTRAST ED 08/12/2024 10:20 PM HORSE RACER D-DIMER, QUANTITATIVE STAT 08/12/2024 10:05 PM HORSE RACER PROTIME-INR STAT 08/12/2024 10:05 PM HORSE RACER ADD ON LAB TEST Add-On 08/12/2024 9:53 PM HORSE RACER ADD ON LAB TEST Add-On 08/12/2024 9:53 PM HORSE RACER ADD ON LAB TEST Add-On 08/12/2024 9:53 PM HORSE RACER ADD ON LAB TEST Add-On 08/12/2024 9:53 PM HORSE RACER ADD ON LAB TEST Add-On 08/12/2024 9:53 PM HORSE RACER ADD ON LAB TEST Add-On 08/12/2024 9:53 PM HORSE RACER ADD ON LAB TEST Add-On 08/12/2024 9:53 PM HORSE RACER ETHANOL STAT 08/12/2024 9:52 PM HORSE RACER TROPONIN T HIGH-SENSITIVITY 2-HOUR Timed 08/12/2024 9:52 PM HORSE RACER ACETAMINOPHEN LEVEL STAT 08/12/2024 9 :13 PM HORSE RACER HEPATITIS PANEL, ACUTE STAT 08/12/2024 9:13 PM HORSE RACER PRO B-TYPE NATRIURETIC PEPTIDE STAT 08/12/2024 8:08 PM HORSE RACER THYROID FUNCTION CASCADE STAT 08/12/2024 8:08 PM HORSE RACER FOLATE STAT 08/12/2024 8:08 PM HORSE RACER IRON PROFILE W/ IBC STAT 08/12/2024 8 :08 PM HORSE RACER VITAMIN B12 STAT 08/12/2024 8:08 PM HORSE RACER MAGNESIUM STAT 08/12/2024 8:08 PM HORSE RACER PHOSPHORUS STAT 08/12/2024 8:08 PM HORSE RACER EGFR STAT 08/12/2024 8:08 PM HORSE RACER DIFFERENTIAL AUTO STAT 08/12/2024 8:0 8 PM HORSE RACER TROPONIN T HIGH-SENSITIVITY SERIES (BASELINE, 2HR, 4HR, 6HR) STAT 08/12/2024 8:08 PM HORSE RACER COMPREHENSIVE METABOLIC PANEL STAT 08/12/2024 8:08 PM HORSE RACER CBC WITH AUTO DIFFERENTIAL STAT 08/12/2024 8:08 PM HORSE RACER XR CHEST PA LATERAL 2 VIEWS ED 08/12/2024 7:27 PM HORSE RACER ECG 12-LEAD STAT 08/12/2024 6:48 PM HORSE RACER XR CHEST PA LATERAL 2 VIEWS ED 08/11/2024 2:02 AM HORSE RACER ECG 12-LEAD STAT 08/11/2024 1:43 AM HORSE RACER XR CHEST PA LATERAL 2 VIEWS ED 08/08/2024 10:[address] HEAD WO CONTRAST ED 08/08/2024 1 0:34 PM HORSE RACER ECG 12-LEAD STAT 08/08/2024 8:56 PM HORSE RACER RESPIRATORY PATHOGEN PANEL Routine 08/06/2024 9:59 AM HORSE RACER from Last 3 Months Results * POC Influenza A/B, COVID-19 antigen (09/22/2024 5:30 PM HORSE RACER) Pathologist [facility] Influenza A Ag, POC Negative Negative [facility] Influenza B Ag, POC Negative Negative [facility] COVID-19 Ag POC Presumptive Negative Presumptive Negative, Invalid [facility] Nasopharyngeal 09/22/2024 5: 30 PM HORSE RACER Charlene To SHOE MAKER POINT OF CARE TEST HELENA PRITCHARD Final Result [facility] [address] [place] [address] * Influenza A/B, RSV, and COVID-19 PCR Nasopharyngeal (09/20/2024 1:25 AM HORSE RACER) Pathologist [facility] COVID-19 RNA Negative Negative Influenza A RNA Negative Negative [facility] (JENNIFER) Influenza B RNA Negative Negative [facility] (JENNIFER) RSV RNA Negative Negative [facility] (JENNIFER) Comment: Interpretive data: Testing performed by [facility]. This test is performed using the [employer] Xpert Xpress CoV-2/Flu/RSV plus assay. This is a multiplex, real- time reverse transcriptase PCR assay intended for the qualitative detection of nucleic acid from SARS-CoV-2, influenza A, influenza B, and respiratory syncytial virus. This assay has been cleared by the [place] Food and Drug administration. The performance characteristics have been verified by the [facility]. Results must be considered in the clinical context, and a negative result does not rule out infection. Interpretive Data last revised 2023 Nasopharyngeal 09/20/2024 1: 25 AM HORSE RACER 09/20/2024 1:29 AM HORSE RACER Narrative JAMESLEN CHAVIS (JENNIFER) - 09/20/2024 2:07 AM HORSE RACER Is the Patient experiencing symptoms consistent with COVID?->Yes Cesar Chiang MD LAB MICROBIOLOGY - GENERAL ORD ERABLES Final Result Performing Organization Address [facility] Co de Phone Number JADA CHAVIS (IRVINE) 1 [facility] [place] [address] * eGFR (09/18/2024 1:35 PM HORSE RACER) eGFR >90 >=60 mL/min/1. 73 m2 Comment: [...] last reviewed 2021. Blood 09/18/2024 1:35 PM HORSE RACER 09/18/2024 1:38 PM HORSE RACER Megan Dill MD LAB BLOOD ORDERABLE S Final Result Performing Organization Address [facility]/ZIP Co de Phone Number JADA CHAVIS (JENNIFER) 1 [facility] [place] [address] * Differential, auto (09/18/2024 1:35 PM HORSE RACER) Neutrophil abs 4.8 1.5 - 6.5 K/cumm [...] revised on 2017. Blood 09/18/2024 1:35 PM HORSE RACER 09/18/2024 1:38 PM HORSE RACER Megan Dill MD LAB BLOOD ORDERABLE S Final Result [facility] IRVINE 1 [facility] Department [place] [address] * Pro B-type natriuretic peptide (09/18/2024 1:35 PM HORSE RACER) NT-proBNP <36 <=300 pg/mL Comment: Interpretive Comments: [...] Revised Date: 2018. Blood 09/18/2024 1:35 PM HORSE RACER 09/18/2024 6:28 PM HORSE RACER us Jossue Cox NP LAB BLOOD ORDERABLES Final Result [facility] (JENNIFER) 1 [facility] [place] [address] * CBC with auto differential (09/18/2024 1:35 PM HORSE RACER) WBC 6.6 3.8 - 9.9 K/cumm Hgb [...] [facility] (JENNIFER) Blood 09/18/2024 1:35 PM HORSE RACER 09/18/2024 1:38 PM HORSE RACER us Megan Dill MD LAB BLOOD ORDERABLE S Final Result JADA [facility] (JENNIFER) 1 [facility] [place] [address] * Comprehensive metabolic panel (09/18/2024 1:35 PM HORSE RACER) Sodium 140 135 - 145 mmol/L Potassium, [...] Hemolyzed S pecimen Blood 09/18/2024 1:35 PM HORSE RACER 09/18/2024 1:38 PM HORSE RACER us Megan Dill MD LAB BLOOD ORDERABLE S Final Result JADA [facility] (JENNIFER) 1 [facility] Department [place] [address] * eGFR (09/11/2024 9:10 PM HORSE RACER) eGFR >90 >=60 mL/min/1. 73 m2 Comment: [...] last reviewed 2021. Blood 09/11/2024 9:10 PM HORSE RACER 09/11/2024 9:30 PM HORSE RACER us Salena Crawley MD LAB BLOOD ORDERABLES Fin al Result [facility] [address] Department [place] [address] * Differential, auto (09/11/2024 9:10 PM HORSE RACER) Neutrophil abs 3.8 1.5 - 6.5 K/cumm [...] revised on 2017. Blood 09/11/2024 9:10 PM HORSE RACER 09/11/2024 9:30 PM HORSE RACER us Salena Crawley MD LAB BLOOD ORDERABLES Fin al Result [facility] [address] Department [place] [address] * Pro B-type natriuretic peptide (09/11/2024 9:10 PM HORSE RACER) NT-proBNP <36 <=300 pg/mL Comment: Interpretive Comments: [...] Revised Date: 2018. Blood 09/11/2024 9:10 PM HORSE RACER 09/11/2024 9:30 PM HORSE RACER us Salena Crawley MD LAB BLOOD ORDERABLES Fin al Result [facility] [address] Department [place] [address] * CBC with auto differential (09/11/2024 9:10 PM HORSE RACER) Pathologist [facility] WBC 5.7 3.8 - 9.9 K/cumm Hgb [...] [facility] Blood 09/11/2024 9:10 PM HORSE RACER 09/11/2024 9:30 PM HORSE RACER us Salena Crawley MD LAB BLOOD ORDERABLES Fin al Result [facility] [address] Department [place] [address] * (ABNORMAL) Comprehensive metabolic panel (09/11/2024 9:10 PM HORSE RACER) Sodium 142 135 - 145 mmol/L Potassium, [...] Hemolyzed S pecimen Blood 09/11/2024 9:10 PM HORSE RACER 09/11/2024 9:30 PM HORSE RACER us Salena Crawley MD LAB BLOOD ORDERABLES Fin al Result [facility] [address] [place] [address] * eGFR (09/07/2024 2:59 AM HORSE RACER) eGFR >90 >=60 mL/min/1. 73 m2 Comment: [...] last reviewed 2021. Blood 09/07/2024 2:59 AM HORSE RACER 09/07/2024 3:02 AM HORSE RACER us Jair Armendariz MD LAB BLOOD ORDERABLES Final Result [facility] [address] Department [place] [address] * Differential, auto (09/07/2024 2:59 AM HORSE RACER) Neutrophil abs 3.0 1.5 - 6.5 K/cumm [...] on 2017. Imm gran pct 0.3 % [facility] Comment: Interpretive Data Percent cell count reference ranges are not reported, since discordance with absolute values may lead to misinterpretation of CBC data. Current Interpretive Data was last revised on 2017. Lymphocyte pct 36.9 % [facility] SP Comment: Interpretive Data Percent cell count reference ranges are not reported, since discordance with absolute values may lead to misinterpretation of CBC data. Current Interpretive Data was last revised on 2017. Monocyte pct 6.9 % [facility] SP Comment: Interpretive Data Percent cell count reference ranges are not reported, since discordance with absolute values may lead to misinterpretation of CBC data. Current Interpretive Data was last revised on 2017. Eosinophil pct 4.0 % [facility] Comment: Interpretive Data Percent cell [...] revised on 2017. Blood 09/07/2024 2:59 AM HORSE RACER 09/07/2024 3:02 AM HORSE RACER Jair Armendariz MD LAB BLOOD ORDERABLES Final Result Performing Organization Address [facility]/ZIP Co de Phone Number JADA HANSON[address] Department [place] [address] * (ABNORMAL) CBC with auto differential (09/07/2024 2:59 AM HORSE RACER) [facility] WBC 5.8 3.8 - 9.9 K/cumm Hgb 12.3(L) 13.0 - 17.5 g/dL [facility] Hct 37.2(L) 38.9 - 50.3 % [facility] Plt 163 150 - 400 K/cumm [facility] MPV 10.4 9.1 - 12.3 fL [facility] RBC 4.17(L) 4.30 - 5.80 M/cumm [facility] MCV 89.2 81.3 - 96.4 fL [facility] MCH 29.5 27.1 - 33.3 pg [facility] MCHC 33.1 32.3 - 35.7 g/dL [facility] RDW CV 12.6 11.1 - 14.9 % [facility] RDW SD 41.1 35.7 - 48.1 fL [facility] NRBC abs 0.00 0.00 - 0.01 K/cumm [facility] Blood 09/07/2024 2:59 AM HORSE RACER 09/07/2024 3:02 AM HORSE RACER Jair Armendariz MD LAB BLOOD ORDERABLES Final Result JADA [address] [place] [address] * Basic metabolic panel (09/07/2024 2:59 AM HORSE RACER) Pathologist [facility] Sodium 143 135 - 145 mmol/L Potassium, pl 4.4 3.3 - 4.9 mmol/L [facility] Chloride 109 97 - 110 mmol/L [facility] CO2 25 22 - 32 mmol/L [facility] Anion gap 9 2 - 15 mmol/L [facility] BUN 24 6 - 25 mg/dL [facility] Creatinine 0.87 0.80 - 1.30 mg/dL [facility] Glucose 86 70 - 199 mg/dL [facility] Comment: Interpretive Data Fasting glucose >/= 126 [...] Calcium 9.1 8.5 - 10.3 mg/dL [facility] Blood 09/07/2024 2:59 AM HORSE RACER 09/07/2024 3:02 AM HORSE RACER us Jair Armendariz MD LAB BLOOD ORDERABLES Final Result [facility] Department [place] [address] * US Vein Duplex Lower Extremity Bilateral Complete (09/03/2024 7:37 PM HORSE RACER) Anatomical Region Laterality Modality Vascular Bilateral Ultrasound 09/04/2024 2:26 PM HORSE RACER Impressions 09/04/2024 2:26 PM HORSE RACER 1. No evidence of DVT in the lower extremities bilaterally. 2. Evidence of pulsatile venous flow. This may suggest increased intravascular volume or right-sided valvular heart disease. Clinical correlation suggested. 3. No change when compared to previous studies. Electronically signed by: Lv Smart M.D. Narrative 09/04/2024 2:26 PM HORSE RACER Lower Extremity Vein Duplex Bilateral DATE: 09/03/2024 [...] Shoulder Right WO Contrast (09/02/2024 9:06 AM HORSE RACER) Anatomical Region Laterality Modality Upper Extremities Right Magnetic Reson ance 09/02/2024 11:0 8 AM HORSE RACER Impressions 09/02/2024 12:42 PM HORSE RACER 1. Minimal right rotator cuff tendinopathy without [...] Gudelia Berger MD Narrative 09/02/2024 12:42 PM HORSE RACER EXAMINATION: 1. MRI right shoulder without contrast [...] Ankle Right 2 Views (09/01/2024 9:33 PM HORSE RACER) Anatomical Region Laterality Modality Lower Extremities, Ankle Right Compute d Radiography 09/02/2024 8:13 AM HORSE RACER Impressions 09/02/2024 8:13 AM HORSE RACER There is mild swelling about the right ankle. There is a fracture of the base of 5th metacarpal, similar to prior. No additional fractures. The joints are normal. Electronically signed by: Brice Mantilla M.D. Narrative 09/02/2024 8:13 AM HORSE RACER EXAMINATION: XR ANKLE RIGHT 2 VIEWS HISTORY: [...] Fibula Right 2 views (09/01/2024 8:37 AM HORSE RACER) Anatomical Region Laterality Modality Lower Extremities, Lower Leg Right Com puted Radiography 09/01/2024 8:45 AM HORSE RACER Impressions 09/01/2024 8:45 AM HORSE RACER No acute fracture of the tibia or fibula. Alignment is normal. Electronically signed by: Greg Joy M.D. Narrative 09/01/2024 8:45 AM HORSE RACER EXAMINATION: XR TIBIA FIBULA RIGHT2 VIEWS HISTORY: [...] 3 or More Views (08/31/2024 10:35 PM HORSE RACER) Anatomical Region Laterality Modality Lower Extremities, Ankle Right Compute d Radiography 09/01/2024 11:1 6 AM HORSE RACER Impressions 09/01/2024 11:16 AM HORSE RACER Comparison is made to a prior study [...] Ness Liz M.D. Narrative 09/01/2024 11:16 AM HORSE RACER EXAMINATION: XR ANKLE RIGHT 3 OR MORE [...] 3 or More Views (08/31/2024 10:34 PM HORSE RACER) Anatomical Region Laterality Modality Lower Extremities, Foot Right Computed Radiography 09/01/2024 11:1 6 AM HORSE RACER Impressions 09/01/2024 11:16 AM HORSE RACER Comparison is made to a prior study [...] Ness Liz M.D. Narrative 09/01/2024 11:16 AM HORSE RACER EXAMINATION: XR ANKLE RIGHT 3 OR MORE [...] Sepsis Lactate w/ Reflex (08/23/2024 2:33 AM HORSE RACER) Pathologist [facility] Sepsis Lactate 0.7 0.7 - 2.0 mmol/L Blood 08/23/2024 2:33 AM HORSE RACER 08/23/2024 2:46 AM HORSE RACER Salena Crawley MD LAB BLOOD ORDERABLES Fin al Result JADA [facility] [address] Department of Laboratories [place], [place] [id number] * eGFR (08/23/2024 2:33 AM HORSE RACER) Pathologist [facility] eGFR >90 >=60 mL/min/1. 73 m2 Comment: [...] last reviewed 2021. Blood 08/23/2024 2:33 AM HORSE RACER 08/23/2024 3:24 AM HORSE RACER us Salena Crawley MD LAB BLOOD ORDERABLES Fin al Result [facility] [address] Department [place] [address] * Differential, auto (08/23/2024 2:33 AM HORSE RACER) Neutrophil abs 3.1 1.5 - 6.5 K/cumm [...] revised on 2017. Blood 08/23/2024 2:33 AM HORSE RACER 08/23/2024 3:24 AM HORSE RACER us Salena Crawley MD LAB BLOOD ORDERABLES Fin al Result [facility] [address] Department [place] [address] * Pro B-type natriuretic peptide (08/23/2024 2:33 AM HORSE RACER) NT-proBNP <36 <=300 pg/mL Comment: Interpretive Comments: [...] Revised Date: 2018. Blood 08/23/2024 2:33 AM HORSE RACER 08/23/2024 3:24 AM HORSE RACER Salena Crawley MD LAB BLOOD ORDERABLES Fin al Result [facility] [address] [place] [address] * (ABNORMAL) CBC with auto differential (08/23/2024 2:33 AM HORSE RACER) WBC 5.8 3.8 - 9.9 K/cumm Hgb [...] [facility] Blood 08/23/2024 2:33 AM HORSE RACER 08/23/2024 3:24 AM HORSE RACER Result [facility] Salena Crawley MD LAB BLOOD ORDERABLES Fin al Result Performing Organization Address [facility] Co de Phone Number [facility] [address] [place] [address] * Blood culture Blood (08/23/2024 2:33 AM HORSE RACER) Report Final Report: No growth Blood 08/23/2024 2:33 AM HORSE RACER 08/23/2024 2:47 AM HORSE RACER Narrative [facility] - 08/28/2024 7:01 AM HORSE RACER From a different site than #1. Collection->Peripheral [...] organism identification may be performed using the [employer] Blood Culture Identification panel. This assay detects microbial DNA in a blood culture broth. This assay has been cleared by the [place] Food and Drug Administration and its performance characteristics have been verified by the [facility]. Interpretive data was last revised on September 03, 2022. Salena Crawley MD LAB MICROBIOLOGY - GENER AL ORDERABLES Final Result Performing Organization Address [facility] Co de Phone Number [facility] [address] [place] [address] * Blood culture Blood (08/23/2024 2:33 AM HORSE RACER) Report Final Report: No growth Blood 08/23/2024 2:33 AM HORSE RACER 08/23/2024 2:48 AM HORSE RACER Narrative [facility] - 08/28/2024 7:01 AM HORSE RACER Collection->Peripheral Interpretive Data 1. Blood cultures are incubated and monitored continuously for 5 days (120 hours). The first negative report is issued within 24 hours of receipt in the laboratory. 2. All positive cultures are resulted and called to physicians/care providers as soon as they are detected. 3. A rapid molecular test for organism identification may be performed using the [employer] Blood Culture Identification panel. This assay detects microbial DNA in a blood culture broth. This assay has been cleared by the [place] Food and Drug Administration and its performance characteristics have been verified by the [facility]. Interpretive data was last revised on September 03, 2022. us Salena Crawley MD LAB MICROBIOLOGY - GENER AL ORDERABLES Final Result [facility] [address] Department [place] [address] * (ABNORMAL) Comprehensive metabolic panel (08/23/2024 2:33 AM HORSE RACER) Sodium 140 135 - 145 mmol/L Potassium, [...] Hemolyzed S pecimen Blood 08/23/2024 2:33 AM HORSE RACER 08/23/2024 3:24 AM HORSE RACER Salena Crawley MD LAB BLOOD ORDERABLES Fin al Result Performing Organization Address [facility] Co de Phone Number [facility] [address] [place] [address] * ECG 12 lead (08/23/2024 2:32 AM HORSE RACER) 08/23/2024 2:32 AM HORSE RACER Narrative [facility] - 08/24/2024 4:38 PM HORSE RACER Vent Rate: 64 bpm RR Interval: 935 msec OK Interval: 174 msec QRS Duration: 109 msec QT Interval: 409 msec QTC Interval: 418 msec P-R-T [place]: 68 - 81 - 41 degrees IMPRESSION: SINUS RHYTHM NORMAL ECG Electronically Signed By: Andrea Moralez MD [facility] Salena Crawley MD ECG ORDERABLES Final Re sult Performing Organization Address [facility] Co de Phone Number [facility] [employer] [facility] * eGFR (08/21/2024 12:35 AM HORSE RACER) eGFR >90 >=60 mL/min/1. 73 m2 Comment: [...] reviewed 2021. Blood 08/21/2024 12:3 5 AM HORSE RACER 08/21/2024 12:40 AM HORSE RACER us Magalis MARQUES LAB BLOOD ORDERABLE S Final Result [address] Department [place] [address] * Differential, auto (08/21/2024 12:35 AM HORSE RACER) Neutrophil abs 3.7 1.5 - 6.5 K/cumm Imm gran abs 0.0 0.0 - 0.1 K/cumm [facility] Lymphocyte abs 2.2 0.8 - 3.3 K/cumm [facility] Monocyte abs 0.6 0.2 - 0.8 K/cumm [facility] Eosinophil abs 0.3 0.0 - 0.5 K/cumm [facility] Basophil abs 0.1 0.0 - 0.1 K/cumm [facility] Neutrophil pct 54.1 % [facility] Comment: Interpretive Data Percent cell count reference ranges are not reported, since discordance with absolute values may lead to misinterpretation of CBC data. Current Interpretive Data was last revised on 2017. Imm gran pct 0.1 % [facility] Comment: Interpretive Data Percent cell count reference ranges are not reported, since discordance with absolute values may lead to misinterpretation of CBC data. Current Interpretive Data was last revised on 2017. Lymphocyte pct 32.5 % [facility] Comment: Interpretive Data Percent cell count reference ranges are not reported, since discordance with absolute values may lead to misinterpretation of CBC data. Current Interpretive Data was last revised on 2017. Monocyte pct 8.3 % [facility] Comment: Interpretive Data Percent cell count reference ranges are not reported, since discordance with absolute values may lead to misinterpretation of CBC data. Current Interpretive Data was last revised on 2017. Eosinophil pct 4.3 % [facility] Comment: Interpretive Data Percent cell count reference ranges are not reported, since discordance with absolute values may lead to misinterpretation of CBC data. Current Interpretive Data was last revised on 2017. Basophil pct 0.7 % [facility] Comment: Interpretive Data Percent cell count reference ranges are not reported, since discordance with absolute values may lead to misinterpretation of CBC data. Current Interpretive Data was last revised on 2017. Blood 08/21/2024 12:3 5 AM HORSE RACER 08/21/2024 12:40 AM HORSE RACER us Magalis MARQUES LAB BLOOD ORDERABLE S Final Result [facility] [address] [facility] Department [place] [address] * (ABNORMAL) CBC with auto differential (08/21/2024 12:35 AM HORSE RACER) WBC 6.9 3.8 - 9.9 K/cumm Hgb 12.1(L) 13.0 - 17.5 g/dL [facility] Hct 36.8(L) 38.9 - 50.3 % [facility] Plt 200 150 - 400 K/cumm [facility] MPV 10.1 9.1 - 12.3 fL [facility] RBC 4.14(L) 4.30 - 5.80 M/cumm [facility] MCV 88.9 81.3 - 96.4 fL [facility] MCH 29.2 27.1 - 33.3 pg [facility] MCHC 32.9 32.3 - 35.7 g/dL [facility] RDW CV 12.8 11.1 - 14.9 % [facility] RDW SD 41.5 35.7 - 48.1 fL [facility] NRBC abs 0.00 0.00 - 0.01 K/cumm [facility] Blood 08/21/2024 12:3 5 AM HORSE RACER 08/21/2024 12:40 AM HORSE RACER Magalis MARQUES LAB BLOOD ORDERABLE S Final Result Performing Organization Address City/[facility]/ZIP Co de Phone Number [address] of Laboratories [place], [place] [id number] * Erythrocyte sedimentation rate (08/21/2024 12:35 AM HORSE RACER) Pathologist [facility] Erythrocyte sedimentation rate 5 1 - 15 mm/hr [facility] Blood 08/21/2024 12:3 5 AM HORSE RACER 08/21/2024 12:40 AM HORSE RACER Magalis MARQUES LAB BLOOD ORDERABLE S Final Result Performing Organization Address [facility] Co de Phone Number [address] [address] * CRP (acute phase) (08/21/2024 12:35 AM HORSE RACER) Pathologist [facility] CRP <3.5 <=10.0 mg/L Blood 08/21/2024 12:3 5 AM HORSE RACER 08/21/2024 12:40 AM HORSE RACER Magalis Katharine Aguilera OR LAB BLOOD ORDERABLE S Final Result Performing Organization Address City/[facility] Co de Phone Number [address] [address] * (ABNORMAL) Basic metabolic panel (08/21/2024 12:35 AM HORSE RACER) Pathologist [facility] Sodium 140 135 - 145 mmol/L Potassium, pl 4.2 3.3 - 4.9 mmol/L [facility] Chloride 104 97 - 110 mmol/L [facility] CO2 26 22 - 32 mmol/L [facility] Anion gap 10 2 - 15 mmol/L [facility] BUN 34(H) 6 - 25 mg/dL [facility] Creatinine 0.91 0.80 - 1.30 mg/dL [facility] Glucose 96 70 - 199 mg/dL [facility] Comment: Interpretive Data Fasting glucose >/= 126 [...] Calcium 9.1 8.5 - 10.3 mg/dL [facility] Blood 08/21/2024 12:3 5 AM HORSE RACER 08/21/2024 12:40 AM HORSE RACER Magalis MARQUES LAB BLOOD ORDERABLE S Final Result [facility] [address] [facility] Department [place] [address] * Streptococcus Group A PCR Throat (08/20/2024 9:19 AM HORSE RACER) Pathologist [facility] Strep A DNA Not Detected Not Detected Comment: This test is performed using the [employer] Xpert Group A Streptococcal Assay. This is [...] the performing laboratory. Throat 08/20/2024 9:19 AM HORSE RACER 08/20/2024 9:22 AM HORSE RACER Fei Murray MD LAB MICROBIOLOGY - GENERAL ORDERABLES Final Result [facility] [address] Department [place] [address] * Respiratory pathogen panel Nasopharyngeal (08/20/2024 9:19 AM HORSE RACER) Pathologist [facility] Influenza A RNA Not Detected Not Detected Influenza B RNA Not Detected Not Detected [facility] RSV RNA Not Detected Not Detected [facility] COVID-19 RNA Not Detected Not Detected [facility] Coronavirus 229E RNA Not Detected Not Detected [facility] Coronavirus HKU1 RNA Not Detected Not Detected [facility] Coronavirus NL63 RNA Not Detected Not Detected [facility] Coronavirus OC43 RNA Not Detected Not Detected [facility] Adenovirus DNA Not Detected Not Detected [facility] Metapneumovirus RNA Not Detected Not Detected [facility] Rhinovirus/Enterov irus RNA Not Detected Not Detected [...] Detected Not Detected [facility] Comment: Interpretive Data [employer] Respiratory Panel (RP2.1) assay is a [...] assay has FDA clearance for testing of SHOE MA[employer]ER swabs. The performance characteristics of this assay have been determined by [facility]. Current interpretive data was last revised on 2021. Nasopharyngeal 08/20/2024 9: 19 AM HORSE RACER 08/20/2024 9:22 AM HORSE RACER Narrative JADA - 08/20/2024 10:22 AM HORSE RACER Is the Patient experiencing symptoms consistent with COVID?->Yes Surveillance testing for transplant patient?->No us Fei Murray MD LAB MICROBIOLOGY - GENERAL ORDERABLES Final Result JADA JUSTIN [address] Department [place] [address] * (ABNORMAL) D-dimer, quantitative (08/15/2024 1:08 AM HORSE RACER) D-Dimer 647(H) <=499 ng/mL FEU Comment: Interpretive [...] revised on 2019. Blood 08/15/2024 1:08 AM HORSE RACER 08/15/2024 1:11 AM HORSE RACER Maddison Muhammad NP LAB BLOOD ORDERABLES Final Resul t [facility] [address] [facility] [place] [address] * eGFR (08/14/2024 9:59 PM HORSE RACER) Pathologist [facility] eGFR >90 >=60 mL/min/1. 73 m2 Comment: [...] last reviewed 2021. Blood 08/14/2024 9:59 PM HORSE RACER 08/14/2024 10:10 PM HORSE RACER Abigail Richards MD LAB BLOOD ORDERABLES Final Result [facility] [address] [facility] [place] [address] * Differential, auto (08/14/2024 9:59 PM HORSE RACER) Neutrophil abs 3.7 1.5 - 6.5 K/cumm Imm gran abs 0.0 0.0 - 0.1 K/cumm [facility] Lymphocyte abs 2.0 0.8 - 3.3 K/cumm [facility] Monocyte abs 0.5 0.2 - 0.8 K/cumm [facility] Eosinophil abs 0.2 0.0 - 0.5 K/cumm [facility] Basophil abs 0.1 0.0 - 0.1 K/cumm [facility] Neutrophil pct 57.5 % [facility] Comment: Interpretive Data Percent cell count reference ranges are not reported, since discordance with absolute values may lead to misinterpretation of CBC data. Current Interpretive Data was last revised on 2017. Imm gran pct 0.2 % [facility] Comment: Interpretive Data Percent cell count reference ranges are not reported, since discordance with absolute values may lead to misinterpretation of CBC data. Current Interpretive Data was last revised on 2017. Lymphocyte pct 30.2 % [facility] Comment: Interpretive Data Percent cell count reference ranges are not reported, since discordance with absolute values may lead to misinterpretation of CBC data. Current Interpretive Data was last revised on 2017. Monocyte pct 7.6 % [facility] Comment: Interpretive Data Percent cell count reference ranges are not reported, since discordance with absolute values may lead to misinterpretation of CBC data. Current Interpretive Data was last revised on 2017. Eosinophil pct 3.4 % [facility] Comment: Interpretive Data Percent cell count reference [...] revised on 2017. Blood 08/14/2024 9:59 PM HORSE RACER 08/14/2024 10:10 PM HORSE RACER us Abigail Richards MD LAB BLOOD ORDERABLES Final Result JADA GOODE [address] [facility] [place] [address] * Pro B-type natriuretic peptide (08/14/2024 9:59 PM HORSE RACER) NT-proBNP 75 <=300 pg/mL Comment: Interpretive Comments: [...] Revised Date: 2018. Blood 08/14/2024 9:59 PM HORSE RACER 08/14/2024 10:10 PM HORSE RACER Abigail Richards MD LAB BLOOD ORDERABLES Final Result Performing Organization Address [facility]/ZIP Co de Phone Number JADA GOODE [id number] [employer] [place] [address] * CBC with auto differential (08/14/2024 9:59 PM HORSE RACER) [facility] WBC 6.5 3.8 - 9.9 K/cumm Hgb 13.3 13.0 - 17.5 g/dL [facility] Hct 39.8 38.9 - 50.3 % [facility] Plt 218 150 - 400 K/cumm [facility] MPV 10.0 9.1 - 12.3 fL [facility] RBC 4.49 4.30 - 5.80 M/cumm [facility] MCV 88.6 81.3 - 96.4 fL [facility] MCH 29.6 27.1 - 33.3 pg [facility] MCHC 33.4 32.3 - 35.7 g/dL [facility] [facility] CV 12.7 11.1 - 14.9 % [facility] RDW SD 41.1 35.7 - 48.1 fL [facility] NRBC abs 0.00 0.00 - 0.01 K/cumm [facility] Blood (Blood, Venous) 08/14/2024 9:59 PM HORSE RACER 08/14/2024 10:10 PM HORSE RACER Abigail Richards MD LAB BLOOD ORDERABLES Final Result Performing Organization Address City/[facility]/ZIP Co de Phone Number JADA GOODE [address] [email or web address] [address] * Lipase (08/14/2024 9:59 PM HORSE RACER) Lipase 50 10 - 99 Units/L Blood (Blood, Venous) 08/14/2024 9:59 PM HORSE RACER 08/14/2024 10:10 PM HORSE RACER us Abigail Richards MD LAB BLOOD ORDERABLES Final Result [facility] [address] [facility] [place] [address] * (ABNORMAL) Comprehensive metabolic panel (08/14/2024 9:59 PM HORSE RACER) Pathologist [facility] Sodium 139 135 - 145 mmol/L Potassium, [...] Alk phos 91 40 - 130 Units/L [facility] ALT 168(H) 7 - 55 Units/L [facility] AST 66(H) 10 - 50 Units/L [facility] Blood 08/14/2024 9:59 PM HORSE RACER 08/14/2024 10:10 PM HORSE RACER us Abigail Richards MD LAB BLOOD ORDERABLES Final Result JADA GOODE [address] [facility] [place] [address] * TRANSTHORACIC ECHO (TTE) COMPLETE W DOPPLER/CF WO CONTRAST (08/14/2024 11:39 AM HORSE RACER) LV EF 55-60 % CONS SCIMAGE Anatomical Region Laterality Modality Ultrasound 08/14/2024 10:0 7 AM HORSE RACER Narrative 08/14/2024 11:49 AM HORSE RACER [place] [address] [place] [address] ECHOCARDIOGRAM Patient Name: LISA AZAR : 1980 (43y 11m) Gender: M Study Date: 08/14/2024 10:07:30 AM Ht(Inch): 68 Wt(Lb): 173.06 BSA: 1.94 R D Intern: NINFA Location: [id number] Order Provider: PHOEBE ADKINS BMI: 26.31 BP: [...] Jerel Ramirez MD PhD 08/14/2024 11:48:00 AM HORSE RACER Procedure Note Jerel Ramirez MD PhD - 08/14/2024 [facility] [address] [place] [address] ECHOCARDIOGRAM Patient Name: LISA AZAR : 1980 (43y 11m) Gender: M Study Date: 08/14/2024 10:07:30 AM Ht(Inch): 68 Wt(Lb): 173.06 BSA: 1.94 R D Intern: NINFA Location: [address] Order Provider: CHELYJANESSloane BMI: 26.31 BP: 97/65 Ref Provider: PHOEBE [...] Jerel Ramirez MD PhD 08/14/2024 11:48:00 AM HORSE RACER us Phoebe Adkins MD CV ECHO PROCEDURES Final Result * eGFR (08/13/2024 5:30 AM HORSE RACER) eGFR >90 >=60 mL/min/1. 73 m2 Comment: [...] last reviewed 2021. Blood 08/13/2024 5:30 AM HORSE RACER 08/13/2024 6:25 AM HORSE RACER us Phoebe Adkins MD LAB BLOOD ORDERABLES Final Resul t JADA [facility] [address] Department [place] [address] * (ABNORMAL) CBC without differential (08/13/2024 5:30 AM HORSE RACER) Pathologist [facility] WBC 5.7 3.8 - 9.9 K/cumm Hgb [...] [facility] Blood 08/13/2024 5:30 AM HORSE RACER 08/13/2024 6:25 AM HORSE RACER Phoebe Adkins MD LAB BLOOD ORDERABLES Final Resul t Performing Organization Address City/[facility]/ZIP Co de Phone Number [facility] [address] [facility] [place] [place] [address] * Phosphorus (08/13/2024 5:30 AM HORSE RACER) Phosphorus, pl 2.9 2.3 - 4.5 mg/dL Blood 08/13/2024 5:30 AM HORSE RACER 08/13/2024 6:25 AM HORSE RACER Phoebe Adkins MD LAB BLOOD ORDERABLES Final Resul t [facility] [address] [facility] [place] [address] * Magnesium (08/13/2024 5:30 AM HORSE RACER) Magnesium 1.9 1.4 - 2.5 mg/dL Blood 08/13/2024 5:30 AM HORSE RACER 08/13/2024 6:25 AM HORSE RACER us Phoebe Adkins MD LAB BLOOD ORDERABLES Final Resul t Performing Organization Address [facility] Co de Phone Number [facility] [address] [facility] [place] [place] [address] * Ferritin (08/13/2024 5:30 AM HORSE RACER) Pathologist [facility] Ferritin 39 30 - 400 ng/mL Blood 08/13/2024 5:30 AM HORSE RACER 08/13/2024 6:24 AM HORSE RACER us Phoebe Adkins MD LAB BLOOD ORDERABLES Final Resul t Performing Organization Address [facility] de Phone Number [facility] [address] [facility] [place] [address] * (ABNORMAL) Hepatic function panel (08/13/2024 5:30 AM HORSE RACER) Pathologist [facility] Bilirubin, total 0.4 0.1 - 1.2 mg/dL [...] [facility] Blood 08/13/2024 5:30 AM HORSE RACER 08/13/2024 6:25 AM HORSE RACER Result [facility] us Russ Adkins MD LAB BLOOD ORDERABLES Final Resul t Performing Organization Address [facility] de Phone Number [facility] [address] [place] [address] * (ABNORMAL) Basic metabolic panel (08/13/2024 5:30 AM HORSE RACER) Sodium 140 135 - 145 mmol/L Potassium, [...] [facility] Blood 08/13/2024 5:30 AM HORSE RACER 08/13/2024 6:25 AM HORSE RACER us Phoebe Adkins MD LAB BLOOD ORDERABLES Final Resul t [facility] [address] [place] [address] * Drugs of Abuse Screen, Urine with Reflex Confirmation (08/13/2024 12:15 AM HORSE RACER) Pathologist [facility] Amphetamine, ur Not Detected CutOff 500ng/mL Comment: [...] on 2017. Urine 08/13/2024 12:1 5 AM HORSE RACER 08/13/2024 12:26 AM HORSE RACER Narrative [facility] - 08/13/2024 12:54 AM HORSE RACER Drug of Abuse screening is performed by immunoassay for medical purposes only. This is not to be used for Pain Management purposes. If Detected, confirmation testing will be performed for Amphetamines, Cocaine, Fentanyl, Methadone, Opiates, Oxycodone or Phencyclidine. us Batsheva Portillo MD LAB URINE ORDERABLES Final Result [facility] [address] Department [place] [address] * (ABNORMAL) Urinalysis reflex to microscopic and culture Urine (08/13/2024 12:15 AM HORSE RACER) Color, ur Yellow Yellow Clarity, ur Clear [...] tendency for uric acid stone formation. Source: [facility] Current Interpretive Data was last revised on [...] [facility] Urine 08/13/2024 12:1 5 AM HORSE RACER 08/13/2024 12:15 AM HORSE RACER us Batsheva Portillo MD LAB MICROBIOLOGY - GENERAL ORDERABLES Final Result [facility] [address] Department [place] [address] * CT Chest PE (CTA) W Contrast (08/12/2024 11:48 PM HORSE RACER) Anatomical Region Laterality Modality Body N/A Computed Tomogra phy 08/12/2024 11:4 3 PM HORSE RACER Impressions 08/13/2024 9:24 AM HORSE RACER No pulmonary embolism. Electronically signed by: Tari Gavin M.D. Narrative 08/13/2024 9:24 AM HORSE RACER EXAMINATION: CT CHEST PE (CTA) W CONTRAST [...] IMPRESSION: No pulmonary embolism. Electronically signed by: Tair Gavin M.D. us Batsheva Portillo MD IMG CT PROCEDURES Final Res ult * US Vein Duplex Lower Extremity Bilateral Complete (08/12/2024 11:46 PM HORSE RACER) Anatomical Region Laterality Modality Vascular Bilateral Ultrasound 08/13/2024 12:0 9 PM HORSE RACER Impressions 08/13/2024 12:09 PM HORSE RACER 1. No evidence of DVT in the lower extremities bilaterally. 2. Pulsatile venous flow bilaterally. This may suggest increased intravascular volume or right-sided valvular heart disease. Clinical correlation suggested. 3. Prominent lymph nodes in both groins. Electronically signed by: Lv Smart M.D. Narrative 08/13/2024 12:09 PM HORSE RACER Lower Extremity Vein Duplex Bilateral DATE: 08/12/2024 [...] ult * US RUQ (08/12/2024 11:38 PM HORSE RACER) Anatomical Region Laterality Modality Abdomen N/A Ultrasound 08/12/2024 10:4 5 PM HORSE RACER Impressions 08/13/2024 11:42 AM HORSE RACER 1. Trace perihepatic ascites. 2. Pulsatile portal venous flow and dilated inferior vena cava, which may represent elevated right heart pressures and/or tricuspid regurgitation. For the purposes of research associate quality control qc, this study was initially interpreted by teleradiology. There is no significant discrepancy. Electronically signed by: Saeid Baker MD, PHD Narrative 08/13/2024 11:42 AM HORSE RACER EXAMINATION: LIMITED ABDOMINAL SONOGRAM HISTORY: Elevated liver [...] tricuspid regurgitation. For the purposes of research associate quality control qc, this study was initially interpreted by teleradiology. There is no significant discrepancy. Electronically signed by: Saeid Baker MD, PHD us Batsheva Portillo MD IMG US PROCEDURES Final Res ult * D-Dimer - Add on lab test (08/12/2024 10:29 PM HORSE RACER) Acceptable Yes Blood 08/12/2024 10:2 9 PM HORSE RACER 08/12/2024 10:29 PM HORSE RACER [facility] - 08/12/2024 10:29 PM HORSE RACER Name of Test->D-Dimer us Batsheva Portillo MD LAB BLOOD ORDERABLES Final Result [facility] [address] Department [place] [address] * CT Head and Cervical Spine WO Contrast (08/12/2024 10:20 PM HORSE RACER) Anatomical Region Laterality Modality Head and Neck N/A Computed Tomogra phy 08/12/2024 10:1 3 PM HORSE RACER Impressions 08/13/2024 7:[address] HEAD: No acute intracranial abnormality or calvarial fracture. CT CERVICAL SPINE: 1. No acute osseous abnormality. 2. Multilevel cervical spondylosis; most pronounced at C5-C6 and C6-C7. For the purposes of research associate quality control qc, this study was initially interpreted by teleradiology. There is no significant discrepancy. Electronically signed by: Zaheer Navas M.D. Narrative 08/13/2024 7:02 AM HORSE RACER EXAMINATION: 1. CT head without contrast 2. [...] and C6-C7. For the purposes of research associate quality control qc, this study was initially interpreted by teleradiology. There is no significant discrepancy. Electronically signed by: Zaheer Navas M.D. us Batsheva Portillo MD IMG CT PROCEDURES Final Res ult * Protime-INR (08/12/2024 10:05 PM HORSE RACER) PT 12.8 9.7 - 13.0 sec INR 1.18 0.90 - 1.20 JADA [facility] Comment: Interpretive data Oral anticoagulant therapeutic ranges: Venous thromboembolism prophylaxis or treatment: 2.0-3.0 CARDIOLOGY Standard range: 2.0-3.0 High-intensity range: 2.5-3.5 Refer to indication-specific guidelines for appropriate target ranges for prosthetic heart valve replacement. Current interpretive data was last revised on 2019. Blood 08/12/2024 10:0 5 PM HORSE RACER 08/12/2024 10:29 PM HORSE RACER us Batsheva Portillo MD LAB BLOOD ORDERABLES Final Result JADA [facility] [address] [place] [address] * (ABNORMAL) D-dimer, quantitative (08/12/2024 10:05 PM HORSE RACER) [facility] D-Dimer 1,783(H) <=499 ng/mL FEU Comment: Interpretive [...] on 2019. Blood 08/12/2024 10:0 5 PM HORSE RACER 08/12/2024 10:05 PM HORSE RACER Batsheva Portillo MD LAB BLOOD ORDERABLES Final Result JADA [facility] [address] [place] [address] * Folate - Add on lab test (08/12/2024 9:53 PM HORSE RACER) [facility] Acceptable Yes Blood 08/12/2024 9:53 PM HORSE RACER 08/12/2024 9:53 PM HORSE RACER Narrative JAAD [facility] - 08/12/2024 9:54 PM HORSE RACER Name of Test->Folate Batsheva Portillo MD LAB BLOOD ORDERABLES Final Result [facility] [address] [place] [address] * Vitamin B12 - Add on lab test (08/12/2024 9:53 PM HORSE RACER) Acceptable Yes Blood 08/12/2024 9:53 PM HORSE RACER 08/12/2024 9:54 PM HORSE RACER Narrative [facility] - 08/12/2024 9:54 PM HORSE RACER Name of Test->Vitamin B12 us Batsheva Portillo MD LAB BLOOD ORDERABLES Final Result Performing Organization Address City/[facility]/ZIP Co de Phone Number [facility] [address] [facility] [place] [place] [address] * Iron profile - Add on lab test (08/12/2024 9:53 PM HORSE RACER) Acceptable Yes Blood 08/12/2024 9:53 PM HORSE RACER 08/12/2024 9:54 PM HORSE RACER Narrative [facility] - 08/12/2024 9:54 PM HORSE RACER Name of Test->Iron profile us Batsheva Portillo MD LAB BLOOD ORDERABLES Final Result Performing Organization Address [facility] Co de Phone Number [facility] [address] [place] [address] * NT-Pro BNP - Add on lab test (08/12/2024 9:53 PM HORSE RACER) Acceptable Yes Blood 08/12/2024 9:53 PM HORSE RACER 08/12/2024 9:53 PM HORSE RACER Narrative [facility] - 08/12/2024 9:54 PM HORSE RACER Name of Test->NT-Pro BNP us Batsheva Portillo MD LAB BLOOD ORDERABLES Final Result Performing Organization Address City/[facility]/ZIP Co de Phone Number [facility] [address] [facility] [place] [place] [address] * TSH reflex Free T4 - Add on lab test (08/12/2024 9:53 PM HORSE RACER) Acceptable Yes Blood 08/12/2024 9:53 PM HORSE RACER 08/12/2024 9:53 PM HORSE RACER Narrative [facility] - 08/12/2024 9:54 PM HORSE RACER Name of Test->TSH reflex Free T4 Batsheva Portillo MD LAB BLOOD ORDERABLES Final Result Performing Organization Address [facility] Co de Phone Number [facility] [address] [facility] [place], [place] [address] * Phosphorus - Add on lab test (08/12/2024 9:53 PM HORSE RACER) Acceptable Yes Blood 08/12/2024 9:53 PM HORSE RACER 08/12/2024 9:53 PM HORSE RACER Narrative [facility] - 08/12/2024 9:55 PM HORSE RACER Name of Test->Phosphorus Batsheva Portillo MD LAB BLOOD ORDERABLES Final Result Performing Organization Address [facility] Co de Phone Number [facility] [address] [place] [address] * Magnesium - Add on lab test (08/12/2024 9:53 PM HORSE RACER) Acceptable Yes Blood 08/12/2024 9:53 PM HORSE RACER 08/12/2024 9:53 PM HORSE RACER Narrative [facility] - 08/12/2024 9:55 PM HORSE RACER Name of Test->Magnesium Batsheva Portillo MD LAB BLOOD ORDERABLES Final Result Performing Organization Address [facility] de Phone Number [facility] [address] [facility] [place], [place] [address] * Troponin T high-sensitivity 2-hour (08/12/2024 9:52 PM HORSE RACER) Trop T hs 6 <=22 ng/L Comment: Interpretive Data For further hscTnT resources including the diagnostic algorithm and an aid in interpretation, copy and paste this link: https://nrl.testcatalog.org/show/hsTrop Current Interpretive Data last revised 2020. Trop T hs delta -1 ng/L [facility] Trop T hs interp Insignificant [facility] Blood 08/12/2024 9:52 PM HORSE RACER 08/12/2024 10:30 PM HORSE RACER us Ace Gonzales MD LAB BLOOD ORDERABLES F inal Result Performing Organization Address [facility]/ZIP Co de Phone Number [facility] [address] [place] [address] * Ethanol (08/12/2024 9:52 PM HORSE RACER) Pathologist [facility] Ethanol <10 <=10 mg/dL Comment: Interpretive Data Legal limit of intoxication > or = 80 mg/dL Levels > or = 400 mg/dL are potentially TOXIC. Current interpretive data was last revised on 2018. Blood 08/12/2024 9:52 PM HORSE RACER 08/12/2024 10:29 PM HORSE RACER us Batsheva Portillo MD LAB BLOOD ORDERABLES Final Result Performing Organization Address [facility] Co de Phone Number [facility] [address] [place] [address] * Hepatitis panel, acute Blood (08/12/2024 9:13 PM HORSE RACER) Pathologist [facility] Hep A IgM Nonreactive Nonreactive Comment: Interpretive Data: If Hep A IgM Ab is reported as Equivocal, a new sample should be drawn in two weeks for testing. Current interpretive data was last revised on 19. Hep B core IgM Nonreactive Nonreactive [facility] Comment: Interpretive Data If HepB Core [...] last revised on 2019. HepBsAg Nonreactive Nonreactive [facility]ADA [facility] Blood 08/12/2024 9:13 PM HORSE RACER 08/12/2024 9:17 PM HORSE RACER Batsheva Portillo MD LAB MICROBIOLOGY - GENERAL ORDERABLES Final Result Performing Organization Address [facility] Co de Phone Number [facility] [address] [place] [address] * Acetaminophen level (08/12/2024 9:13 PM HORSE RACER) Acetaminophen <5 <=5 mcg/mL Comment: Interpretive Data Significant hepatic injury may occur and treatment with n-acetyl cysteine is generally recommended if the acetaminophen level exceeds: 150 mcg/mL at 4 hours after ingestion 75 mcg/mL at 8 hours after ingestion 38 mcg/mL at 12 hours after ingestion 19 mcg/mL at 16 hours after ingestion Consult toxicology or poison control ([phone]) for unknown ingestion time. Current interpretive data was last revised 2023. Blood 08/12/2024 9:13 PM HORSE RACER 08/12/2024 9:17 PM HORSE RACER us Batsheva Portillo MD LAB BLOOD ORDERABLES Final Result Performing Organization Address City/[facility] Co de Phone Number [facility] [address] [place] [address] * Troponin T high-sensitivity series (baseline, 2hr, 4hr, 6hr) (08/12/2024 8:08 PM HORSE RACER) Trop T hs 7 <=22 ng/L Comment: Interpretive Data For further hscTnT resources including the diagnostic algorithm and an aid in interpretation, copy and paste this link: https://nrl.testcatalog.org/show/hsTrop Current Interpretive Data last revised 2020. Blood 08/12/2024 8:08 PM HORSE RACER 08/12/2024 8:23 PM HORSE RACER us Batsheva Portillo MD LAB BLOOD ORDERABLES Final Result [facility]ADA [facility] [address] [place] [address] * eGFR (08/12/2024 8:08 PM HORSE RACER) eGFR >90 >=60 mL/min/1. 73 m2 Comment: [...] last reviewed 2021. Blood 08/12/2024 8:08 PM HORSE RACER 08/12/2024 8:23 PM HORSE RACER us Batsheva Portillo MD LAB BLOOD ORDERABLES Final Result JADA [facility] [address] [place] [address] * Differential, auto (08/12/2024 8:08 PM HORSE RACER) Pathologist [facility] Neutrophil abs 3.5 1.5 - 6.5 K/cumm [...] revised on 2017. Blood 08/12/2024 8:08 PM HORSE RACER 08/12/2024 8:23 PM HORSE RACER us Batsheva Portillo MD LAB BLOOD ORDERABLES Final Result [facility] [address] [place] [address] * Pro B-type natriuretic peptide (08/12/2024 8:08 PM HORSE RACER) NT-proBNP 60 <=300 pg/mL Comment: Interpretive Comments: [...] Revised Date: 2018. Blood 08/12/2024 8:08 PM HORSE RACER 08/12/2024 8:23 PM HORSE RACER us Batsheva Portillo MD LAB BLOOD ORDERABLES Final Result JADA [facility] [address] [place] [address] * Thyroid Function [place] (08/12/2024 8:08 PM HORSE RACER) [facility] TSH 1.43 0.30 - 4.20 mcIUnit/mL Blood 08/12/2024 8:08 PM HORSE RACER 08/12/2024 8:23 PM HORSE RACER us Batsheva Portillo MD LAB BLOOD ORDERABLES Final Result Performing Organization Address [facility]/ZIP Co de Phone Number [facility] [address] [facility] [place] [place] [address] * (ABNORMAL) Iron profile w/ IBC (08/12/2024 8:08 PM HORSE RACER) [facility] Iron 46(L) 50 - 150 mcg/dL TIBC 296 250 - 400 mcg/dL [facility] Transferrin saturation 16(L) 20 - 50 % [facility] Blood 08/12/2024 8:08 PM HORSE RACER 08/12/2024 8:23 PM HORSE RACER us Batsheva Portillo MD LAB BLOOD ORDERABLES Final Result Performing Organization Address [facility] Co de Phone Number [facility] [address] [facility] [place], [place] [id number] * (ABNORMAL) CBC with auto differential (08/12/2024 8:08 PM HORSE RACER) [facility] WBC 6.5 3.8 - 9.9 K/cumm Hgb [...] CENTER Blood (Blood, Venous) 08/12/2024 8:08 PM HORSE RACER 08/12/2024 8:23 PM HORSE RACER Batsheva Portillo MD LAB BLOOD ORDERABLES Final Result [facility] [address] Department [place], [place] [id number] * Phosphorus (08/12/2024 8:08 PM HORSE RACER) Pathologist [facility] Phosphorus, pl 3.1 2.3 - 4.5 mg/dL Blood 08/12/2024 8:08 PM HORSE RACER 08/12/2024 8:23 PM HORSE RACER us Batsheva Portillo MD LAB BLOOD ORDERABLES Final Result Performing Organization Address [facility]/ZIP Co de Phone Number [facility] [address] Department [place], [place] [address] * Magnesium (08/12/2024 8:08 PM HORSE RACER) Pathologist [facility] Magnesium 2.0 1.4 - 2.5 mg/dL Blood 08/12/2024 8:08 PM HORSE RACER 08/12/2024 8:23 PM HORSE RACER Batsheva Portillo MD LAB BLOOD ORDERABLES Final Result Performing Organization Address City/[facility] Co de Phone Number [facility] [address] [facility] [place] [place] [address] * Folate (08/12/2024 8:08 PM HORSE RACER) Folic acid 7.6 >=5.0 ng/mL Blood 08/12/2024 8:08 PM HORSE RACER 08/12/2024 8:23 PM HORSE RACER us Batsheva Portillo MD LAB BLOOD ORDERABLES Final Result [facility] [address] Department [place] [address] * Vitamin B12 (08/12/2024 8:08 PM HORSE RACER) [facility] Vitamin B12 860 230 - 1,250 pg/mL Blood 08/12/2024 8:08 PM HORSE RACER 08/12/2024 8:23 PM HORSE RACER us Batsheva Portillo MD LAB BLOOD ORDERABLES Final Result Performing Organization Address [facility] Co de Phone Number [facility] [address] [place] [address] * (ABNORMAL) Comprehensive metabolic panel (08/12/2024 8:08 PM HORSE RACER) [facility] Sodium 142 135 - 145 mmol/L Potassium, [...] [facility] Blood 08/12/2024 8:08 PM HORSE RACER 08/12/2024 8:23 PM HORSE RACER us Batsheva Portillo MD LAB BLOOD ORDERABLES Final Result [facility] [address] [place] [address] * XR Chest PA Lateral 2 Views (08/12/2024 7:27 PM HORSE RACER) Anatomical Region Laterality Modality Body, Chest N/A Computed Radiogr aphy 08/13/2024 7:44 AM HORSE RACER Impressions 08/13/2024 7:44 AM HORSE RACER There is subtle airspace opacity in the right lung base which may represent pneumonia in the appropriate clinical setting. Alternatively, this may represent atelectasis. No pleural effusion. No pneumothorax. Heart size is normal. Electronically signed by: Tari Gavin M.D. Narrative 08/13/2024 7:44 AM HORSE RACER EXAMINATION: XR CHEST PA LATERAL 2 VIEWS [...] * ECG 12 lead (08/12/2024 6:48 PM HORSE RACER) 08/12/2024 6:48 PM HORSE RACER Narrative [facility] - 08/13/2024 1:41 PM HORSE RACER Vent Rate: 63 bpm RR Interval: 938 msec OK Interval: 165 msec QRS Duration: 96 msec QT Interval: 378 msec QTC Interval: 386 msec P-R-T [place]: 74 - 81 - 50 degrees IMPRESSION: SINUS RHYTHM POSSIBLE LEFT ATRIAL ENLARGEMENT [-0.1mV P WAVE IN V1/V2] BORDERLINE ECG Electronically Signed By: Jerel Ramirez MD PhD us Batsheva Portillo MD ECG ORDERABLES Final Resul t [facility] * XR Chest Pa Lateral 2 Views (08/11/2024 2:02 AM HORSE RACER) Anatomical Region Laterality Modality Body, Chest N/A Computed Radiogr aphy 08/11/2024 3:00 AM HORSE RACER Impressions 08/11/2024 9:05 AM HORSE RACER Comparison radiograph from 08/08/2024. No consolidation, pleural effusion, or pneumothorax. Cardiomediastinal silhouette within normal limits. Dictated by: Julio Rooney M.D. The radiology attending physician has personally reviewed this study, and had reviewed and/or edited this written report and agrees with it. Electronically signed by: Brice Mantilla M.D. Narrative 08/11/2024 9:05 AM HORSE RACER EXAMINATION: 2 view chest radiograph Procedure Note [...] sult * ECG 12-LEAD (08/11/2024 1:43 AM HORSE RACER) Narrative [facility] - 08/11/2024 1:43 AM HORSE RACER Johnnie Kelly MD 08/11/2024 1:44 AM ECG [...] MD ECG ORDERABLES Final Resu lt [facility] * XR Chest PA Lateral 2 Views (08/08/2024 10:42 PM HORSE RACER) Anatomical Region Laterality Modality Body, Chest N/A Computed Radiogr aphy 08/08/2024 11:0 3 PM HORSE RACER Impressions 08/09/2024 10:05 AM HORSE RACER The current study is compared with the prior radiograph dated 09/13/2019. Mild bibasilar atelectasis. No consolidation, pleural effusion, or pneumothorax. Cardiomediastinal silhouette within normal limits. Dictated by: Chet Boogie MD The radiology attending physician has personally reviewed this study, and had reviewed and/or edited this written report and agrees with it. Electronically signed by: Steve Arce M.D. Narrative 08/09/2024 10:05 AM HORSE RACER EXAMINATION: 2 view chest radiograph Procedure Note [...] CT Head WO Contrast (08/08/2024 10:34 PM HORSE RACER) Anatomical Region Laterality Modality Head and Neck N/A Computed Tomogra phy 08/08/2024 10:4 4 PM HORSE RACER Impressions 08/09/2024 10:54 AM HORSE RACER 1. No acute intracranial process. 2. Large burden of cerumen in both external auditory canals which may be impacted. Dictated by: Juancho Marquez MD, Ph.D The radiology attending physician has personally reviewed this study, and had reviewed and/or edited this written report and agrees with it. Electronically signed by: Indio Zambrano M.D. Narrative 08/09/2024 10:54 AM HORSE RACER EXAMINATION: CT head without contrast HISTORY: 43-year-old [...] ult * ECG 12-LEAD (08/08/2024 8:56 PM HORSE RACER) Narrative [facility] - 08/08/2024 8:56 PM HORSE RACER Salena Cobb MD 08/08/2024 8:57 PM ECG [...] Gatica MD ECG ORDERABLES Final Resul t [facility] * (ABNORMAL) Respiratory pathogen panel Nasopharyngeal (08/06/2024 9:59 AM HORSE RACER) Pathologist [facility] Influenza A RNA Not Detected Not Detected Influenza B RNA Not Detected Not Detected [facility] RSV RNA Not Detected Not Detected [facility] COVID-19 RNA Not Detected Not Detected [facility] Coronavirus 229E RNA Not Detected Not Detected [facility] Coronavirus HKU1 RNA Not Detected Not Detected [facility] Coronavirus NL63 RNA Detected(A) Not Detected [facility] Coronavirus OC43 RNA Not Detected Not Detected [facility] Adenovirus DNA Not Detected Not Detected [facility] Metapneumovirus RNA Not Detected Not Detected [facility] Rhinovirus/Enterov irus RNA Not Detected Not Detected [facility] Parainfluenza 1 RNA Not Detected Not Detected [facility] Parainfluenza 2 RNA Not Detected Not Detected [facility] Parainfluenza 3 RNA Not Detected Not Detected [facility] Parainfluenza 4 RNA Not Detected Not Detected [facility] B. pertussis DNA Not Detected Not Detected [facility] B. parapertussis DNA Not Detected Not Detected [facility] C. pneumoniae DNA Not Detected Not Detected [facility] M. pneumoniae DNA Not Detected Not Detected [facility] Nasopharyngeal 08/06/2024 9: 59 AM HORSE RACER 08/06/2024 10:52 AM HORSE RACER Narrative [facility] - 08/06/2024 11:43 AM HORSE RACER Is the Patient experiencing symptoms consistent with COVID?->Yes Surveillance testing for transplant patient?->No Interpretive Data [employer] FilmArray Respiratory Panel (RP2.1) assay is a [...] assay has FDA clearance for testing of SHOE MAKER swabs. The performance of additional specimen types has been assessed by the performing laboratory. The performance characteristics of this assay have been determined by [facility] Infectious Disease [facility]. Current interpretive data was last revised on 22. [facility] - GENERAL [place] Final Result [facility] Department [place] [address] from Last 3 Months Insurance [facility] [place] [address] [facility] [place] [address] [employer] Advance Directives For more information, please contact: [phone] * Full Code (Latest Code Status on File) Date Activated Date Inactivated Comments 08/13/2024 3:12 AM 08/14/2024 6:01 PM * Full Code Date Activated Date Inactivated Comments 10/28/2022 5:15 PM 10/29/2022 2:07 PM * Full Code Date Activated Date Inactivated Comments 08/09/2019 5:28 PM 08/10/2019 5:09 PM * Full Code Date Activated Date Inactivated Comments 07/29/2019 4:26 PM 08/04/2019 10:36 PM Care Teams Extension Division Director Relationship Specialty [place] [id number] [place] [address] PCP - General Family Medicine 05/18/24 [place] [id number] [address] [place] [address] [address] Referring Physician General Surgery 08/04/19 [place] [id number] [place] [address] Consulting Physician Gastroenterology 08/04/19
--- OUTSIDE RECORDS SUMMARY | 2024-09-25 03:40 | XMS_ITS | Encounter Summary ---
Author Organization [facility] Address [address] [place] [address] Care Team Providers Care Dampener Operator Name Role Phone Unavailable Primary Care Provider Unavailabl e Prior Encounters Date Type Department Care Team Description 11/19/2022 Travel Plan of Treatment Not on file Visit Diagnoses Not on file [facility]
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
[2024-09-25 03:58] VITALS: BP 123/75; PULSE 68; RESP 19; TEMP 36.6; O2SAT 100
== END 2024-09-25 03:59 | disposition home or self-care (01) ==
PROVIDERS: Emergency Provider Student in an Organized Health Care Education/Training Program
DX: R22.43 Localized swelling, mass and lump, lower limb, bilateral (principal); Z76.0 Encounter for issue of repeat prescription
CPT/HCPCS: 99281